=== PATIENT | female | born 1955 | race Caucasian/White ===

== ENCOUNTER 2021-10-07 14:47 | Inpatient (IN) | payer MEDICARE, MEDICAID, SELFPAY ==
--- NOTE | ~2021-10-07 | US_ITS ---
EXAMINATION: US PELVIS CLINICAL INFORMATION: Vaginal bleeding. COMPARISON: Previous CT of the abdomen and pelvis February 2019. TECHNIQUE: Ultrasound of the pelvis is performed using both transabdominal and transvaginal transducers along with Doppler. Transvaginal imaging is performed due to inadequate visualization transabdominally. FINDINGS: The uterus is anteverted and measures 9.3 x 3.6 x 5.2 cm in dimension. There is a 3 x 2.7 x 3.7 cm hypoechoic lesion in the posterior cervix with possible small calcification. This is not appreciated on noncontrast enhanced CT of the abdomen and pelvis February 2019. No other focal lesion is seen. The endometrium is thickened for a postmenopausal patient measuring 0.9 cm. The ovaries are not seen. There is no fluid in the pelvis. The bladder wall may be slightly thickened and trabeculated. US/US pelvic and transvaginal IMPRESSION: Abnormally thickened endometrium for a postmenopausal patient measuring 0.9 cm. 3 x 2.7 x 3.7 cm mass in the posterior cervix. This may represent a fibroid. Slightly thickened trabeculated bladder wall.
--- NOTE | ~2021-10-07 | CT_ITS ---
EXAMINATION: CT HEAD WITHOUT CONTRAST (STROKE PROTOCOL) CLINICAL INFORMATION: Stroke protocol. Acute mental status change. COMPARISON: Previous head CT September 2021. TECHNIQUE: Contiguous axial imaging was performed from the skull base to vertex without intravenous administration of contrast. This CT examination was performed using dose optimization techniques as appropriate, variously including the following: *Automated exposure control *Adjustment of mA and/or kV according to patient size (this includes techniques or standardized protocols for targeted exams where dose is matched to indication/reason for exam; i.e. extremities or head) *Use of iterative reconstruction technique DLP: 763 mGy-cm. FINDINGS: There is no evidence of an extra-axial collection. There is no evidence of intra-axial or extra-axial hemorrhage. The ventricles and extra-axial CSF spaces are slightly prominent just above age-related changes. There is mild nonspecific periventricular white matter disease. No mass, mass effect or infarct is seen. Review of bone windows is normal. Visualized paranasal sinuses, mastoid air cells and middle ears are clear. CT/CT head for stroke IMPRESSION: No acute intracranial pathology. This critical result was discussed with Dr. Chu at 8:30 hours on 10/20/2021. It was ascertained that the content and urgency of the report was understood at the time of direct communication.
--- NOTE | ~2021-10-07 | CT_ITS ---
EXAMINATION: CT HEAD WITHOUT CONTRAST CLINICAL INFORMATION: Fall. Head trauma. COMPARISON: Previous head CT most recent from yesterday TECHNIQUE: Contiguous axial imaging was performed from the skull base to vertex without intravenous administration of contrast. This CT examination was performed using dose optimization techniques as appropriate, variously including the following: *Automated exposure control *Adjustment of mA and/or kV according to patient size (this includes techniques or standardized protocols for targeted exams where dose is matched to indication/reason for exam; i.e. extremities or head) *Use of iterative reconstruction technique DLP: 747 mGy-cm FINDINGS: There is no evidence of an extra-axial collection. There is no evidence of intra-axial or extra-axial hemorrhage. The ventricles and extra-axial CSF spaces are prominent suggestive of mild generalized atrophy. There is nonspecific periventricular white matter disease. No mass, mass effect or infarct is seen. Review of bone windows is normal. No skull fracture is seen. Paranasal sinuses, mastoid air cells and middle ears are clear. CT/CT head/brain wo con IMPRESSION: No acute intracranial pathology.
--- NOTE | ~2021-10-07 | CT_ITS ---
EXAMINATION: CT HEAD WITHOUT CONTRAST CLINICAL INFORMATION: Fall. Head injury. COMPARISON: CT head 10/20/2021 TECHNIQUE: Contiguous axial imaging was performed from the skull base to vertex without intravenous administration of contrast. Coronal and sagittal reformatted images are performed at the CT scanner This CT examination was performed using dose optimization techniques as appropriate, variously including the following: *Automated exposure control *Adjustment of mA and/or kV according to patient size (this includes techniques or standardized protocols for targeted exams where dose is matched to indication/reason for exam; i.e. extremities or head) *Use of iterative reconstruction technique DLP: 690 mGy-cm FINDINGS: There is no evidence of acute intracranial hemorrhage or territorial infarction. No abnormal mass effect or midline shift is seen. Molina to white matter differentiation is well preserved. No extra-axial fluid collections are identified. There is generalized global volume loss. There is mild prominence of the ventricles and the sulci . There is mild hypodensity of the periventricular white matter due to chronic small vessel ischemic disease. There are vascular calcifications of the internal carotid arteries bilaterally. The osseous structures and soft tissues are normal. The mastoid air cells and visualized portions of the paranasal sinuses are well aerated. CT/CT head/brain wo con IMPRESSION: No acute intracranial pathology.
--- NOTE | ~2021-10-07 | CT_ITS ---
EXAMINATION: CT HEAD WITHOUT CONTRAST CLINICAL INFORMATION: Change in mental status. COMPARISON: Head CT dated 03/04/2019. TECHNIQUE: Contiguous axial imaging was performed from the skull base to vertex without intravenous administration of contrast. This CT examination was performed using dose optimization techniques as appropriate, variously including the following: *Automated exposure control *Adjustment of mA and/or kV according to patient size (this includes techniques or standardized protocols for targeted exams where dose is matched to indication/reason for exam; i.e. extremities or head) *Use of iterative reconstruction technique DLP: 743 mGy-cm FINDINGS: There is no evidence of acute intracranial hemorrhage or territorial infarction. No abnormal mass effect or midline shift is seen. Molina to white matter differentiation is well preserved. No extra-axial fluid collections are identified. Mild chronic white matter microangiopathy noted. There is moderate diffuse parenchymal volume loss and ex vacuo dilatation of the ventricles. The osseous structures and soft tissues are normal. The mastoid air cells and visualized portions of the paranasal sinuses are well aerated. CT/CT head/brain wo con IMPRESSION: No acute intracranial pathology.
[2021-10-07 15:04] VITALS: BP 110/76; PULSE 99; O2SAT 99
--- NOTE | 2021-10-07 15:12 | ED.PSYCH ---
HPI - Psych General Chief Complaint: Psychiatric Symptoms Stated Complaint: S12 Time Seen by Provider: 10/07/21 15:00 Source: EMS and RN notes reviewed Mode of arrival: EMS Limitations: altered mental status History of Present Illness HPI Narrative: Patient sent from [facility] for direct admission to psych floor wanted medical clearance from the ER specially the COVID testing patient had the labs done yesterday were within normal limits does have a history of schizophrenia bipolar disorder anxiety been hallucinating Related Data Home Medications Medication Instructions Recorded Confirmed apixaban 5 mg tablet (Eliquis) 1 tab PO BID 10/07/21 10/07/21 clonazepam 0.5 mg tablet tab PO BEDTIME 10/07/21 clozapine 100 mg tablet 2 tab PO BEDTIME 10/07/21 10/07/21 desmopressin 0.1 mg tablet 2 tab PO BID 10/07/21 10/07/21 haloperidol 5 mg tablet 1 tab PO TID 10/07/21 10/07/21 hydrochlorothiazide 25 mg tablet 1 tab PO DAILY 10/07/21 10/07/21 mirtazapine 30 mg tablet 1 tab PO BEDTIME 10/07/21 10/07/21 propranolol 10 mg tablet 1 tab PO DAILY 10/07/21 10/07/21 Allergies Allergy/AdvReac Type Severity Reaction Status Date / Time No Known Allergies Allergy Unverified 05/01/20 19:42 [No Known Allergies*] Review of Systems Review of Systems: Yes Unobtainable due to mental condition PMFSH Past Medical History Source: old records reviewed Social History Social History Household Members: Other Housing: Jail Patient Tobacco Use Status: Former Tobacco user Quit Date: 22 years ago Smoked in Last 30 Days: No Advance Directives: No Advance Directives Information Provided: No Do you have thoughts of harming others: None Do you have a plan to hurt others: No Plan Recently lost weight without trying: Unsure Nutrition Risks: No Nutritional Risk Physical Exam Vital Signs: Vital Signs: Last Vital Signs Temp 97.3 F 10/07/21 16:30 Pulse 88 10/07/21 16:30 Resp 18 10/07/21 16:30 BP 126/67 10/07/21 16:30 Pulse Ox 98 10/07/21 16:30 BMI result Body Mass Index 24.6 Appearance: Alert. Oriented X2-3. No acute distress. Eyes: PERRLA, No Nystagmus ENT: Pharynx normal. Oral Mucosa moist Neck: Normal inspection. Neck supple. CVS: Normal heart rate and rhythm. Pulses normal. Respiratory: No respiratory distress. Equal air entry bilateral, no wheezing/rales/rhonchi Abdomen: Soft and nontender. Bowel sounds are present, no mass palpable, no CVA tenderness Skin: Skin warm and dry. Normal skin color. Normal skin turgor. Extremities: No lower extremity edema. No calf tenderness Neuro: Oriented X 2-3. No motor deficit. No sensory deficit.No cerebellar signs , cranial nerves II-XII intact MDM - Psych MDM Narrative Medical decision making narrative: Patient medically cleared for M5 admission Lab Data Attestation: I reviewed the patient's lab results. Result diagrams: 10/07/21 19:25 Labs: Lab Results 10/07/21 Range/Units 15:14 COVID-19 (SHIVANI) Negative (Negative) COVID-19 Clin Com See Note Discharge Plan Discharge Clinical Impression: Schizophrenia, Bipolar disorder Patient Disposition: Admitted As Inpatient Interventions: Admission Worksheet (ED) Last Done: 10/07/21 19:09 Discharge Date/Time: 10/07/21 19:10
[2021-10-07 15:23] VITALS: BP 124/81; PULSE 88; RESP 16; TEMP 36.3; O2SAT 97; BMI 24.6
[2021-10-07 15:35] LABS: COVID-19 Test Negative (Negative)
[2021-10-07 16:30] VITALS: BP 126/67; PULSE 88; RESP 18; TEMP 36.3; O2SAT 98
--- NOTE | 2021-10-07 18:23 | PC.ADMIT ---
Addendum entered by Sandra Baumann RN 10/07/21 19:12: It is important to note that patient has a a long psychiatric history. Past medical history of HTN, generalized muscle weakness, Nephrogenic diabetes insipidus. Original Note: Patient is a 66 y/o Macedonian speaking F admitted through [facility] ED to the unit from [facility] with DSM 5 diagnosis F41.9 Unspecified Anxiety d.o, F20.9 Unspecified Schizophrenia, F31.9 Bipolar d/o and F02.80 Dementia in other diseases classified elsewhere. Patient arrived on unit via wheelchair accompanied by security and this brief writer. Patient is alert and oriented x2; patient lacks insight to situation and unsure of time. Patient appeared impulsive, confused but easily redirected. Patient has a flat affect and appears preoccupied. patient endorses auditory hallucinations. patient states the voice is telling me I am the devil and that I should not eat. patient denies SI/HI/VH. Patient ambulates with an unsteady gait and reports using a walker at nursing facility. Patient reports 2 falls at nursing facility 2 weeks ago. Patient reports poor po intake related to AH. Patient reports good sleep. Vital signs upon admission; 97.3, 88, 126/67,98%. patient is on 1:1 for safety r/t hx of falls, unsteady gait and currently impulsive.
[2021-10-07 19:30] LABS: MANUAL DIFF FLAG NO
[2021-10-07 19:31] LABS: Basophils Absolute Auto 0.1 X10*3/uL (0.0-0.2); Basophils Percent Auto 0.8 % (0-2); Eosinophils Percent Auto 0.2 % (0-4); Hematocrit 38.1 % (37.0-47.0); Imm Gran Abs Auto 0.06 X10*3/uL (0.00-0.03); Imm Gran Pct Auto 0.5 % (0.0-0.4); Lymphocytes Absolute Auto 4.3 X10*3/uL (1.2-4.9); Lymphocytes Percent Auto 38.2 % (20-40); Mean Corpuscular HGB Conc 31.5 g/dl (31.0-35.0); Mean Corpuscular Hemoglobin 24.3 pg (27.0-33.0); Mean Corpuscular Volume 77.1 fL (80.0-98.0); Mean Platelet Volume 10.5 fL (9.4-12.3); Monocytes Absolute Auto 1.1 X10*3/uL (0.1-1.2); Monocytes Percent Auto 9.8 % (2-11); Neutrophils Absolute Auto 5.7 x10*3/uL (2.0-8.3); Neutrophils Percent Auto 50.5 % (45-73); Platelet Count 251 X10*3/uL (160-400); Red Blood Count 4.94 X10*6/uL (4.20-5.50); Red Cell Distribution Width 14.9 % (11.0-16.0); White Blood Count 11.3 X10*3/uL (4.8-10.8)
--- NOTE | 2021-10-07 20:28 | PC.NURSE ---
Call from [facility] pharmacy asking when last dose of clozaril was given. RN called [facility] at [phone]. RN spoke to an RN who stated that the doctor's order is to give clozaril at bedtime. She could not verify that it was definitely given at bedtime on 10/06/2021, but stated that if that's the order then it was most likely given. RN reported this to the extrusion technician provider and Nataliia in pharmacy.
[2021-10-07 21:40] VITALS: BP 116/58; PULSE 78; RESP 17; TEMP 36.4; O2SAT 97
[2021-10-07] MEDS: cloZAPine 100 MG TABLET 200 MG PO (21:42)
[2021-10-07] MEDS: Mirtazapine 30 MG TABLET PO (21:42)
[2021-10-07] MEDS: HaloperidoL 5 MG TABLET PO (21:43)
[2021-10-07] MEDS: Apixaban 5 MG TABLET PO (21:43)
[2021-10-08 07:23] LABS: MANUAL DIFF FLAG NO
[2021-10-08 07:25] LABS: Basophils Absolute Auto 0.1 X10*3/uL (0.0-0.2); Basophils Percent Auto 0.6 % (0-2); Hematocrit 38.3 % (37.0-47.0); Hemoglobin 12.2 g/dl (12.0-16.0); Imm Gran Abs Auto 0.05 X10*3/uL (0.00-0.03); Imm Gran Pct Auto 0.6 % (0.0-0.4); Lymphocytes Absolute Auto 3.4 X10*3/uL (1.2-4.9); Lymphocytes Percent Auto 38.4 % (20-40); Mean Corpuscular HGB Conc 31.9 g/dl (31.0-35.0); Mean Corpuscular Hemoglobin 24.3 pg (27.0-33.0); Mean Corpuscular Volume 76.3 fL (80.0-98.0); Mean Platelet Volume 10.4 fL (9.4-12.3); Monocytes Absolute Auto 0.9 X10*3/uL (0.1-1.2); Monocytes Percent Auto 9.8 % (2-11); Neutrophils Absolute Auto 4.4 x10*3/uL (2.0-8.3); Neutrophils Percent Auto 50.6 % (45-73); Platelet Count 218 X10*3/uL (160-400); Red Blood Count 5.02 X10*6/uL (4.20-5.50); Red Cell Distribution Width 14.8 % (11.0-16.0); White Blood Count 8.8 X10*3/uL (4.8-10.8)
[2021-10-08 07:51] LABS: Alanine Aminotransferase 12 U/L (0-31); Albumin Level 3.7 g/dL (3.5-5.0); Alkaline Phosphatase 86 U/L (39-117); Anion Gap 13 (12-20); Aspartate Amino Transferase 17 U/L (5-31); Bilirubin Direct 0.2 mg/dL (0.0-0.5); Bilirubin Total 0.6 mg/dL (0.0-1.0); Blood Urea Nitrogen 12 mg/dL (9-16); Calcium 11.1 mg/dL (8.4-10.2); Carbon Dioxide 27 mmol/L (22-29); Chloride 104 mmol/L (96-108); Cholesterol 213 mg/dL; Creatinine Clr Calc Pharmacy 59.4; Estimated Glomerular Filt Rate > 60; Glucose Fasting 101 mg/dL (60-99); HDL Cholesterol 34 mg/dL; LDL Cholesterol Calculated 156 mg/dl; Potassium 2.8 mmol/L (3.3-5.1); Sodium 141 mmol/L (135-145); Total Protein 5.9 g/dL (6.5-8.0); Triglycerides 117 mg/dL
[2021-10-08 08:00] LABS: Thyroid Stimulating Hormone 0.57 uIU/mL (0.32-4.0)
[2021-10-08 08:26] LABS: Estimated Average Glucose 97 mg/dL
[2021-10-08 09:10] LABS: Folate > 20.0 ng/mL (> or = 4.0); Vitamin B12 573 pg/mL (200-900)
[2021-10-08 14:14] VITALS: BP 116/58; PULSE 78; O2SAT 97
--- NOTE | 2021-10-08 14:14 | HO.PSYADMNOT ---
[facility] Date of Service: 10/08/21 Chief Complaint: Mood disorder Sources of Information: patient interviewed and chart reviewed HPI Subjective Notes: Church Warning and Conditional Voluntary Narrative: The patient is a 66-year-old female, , mother of 2 adult children, resident of an assisted living facility, with a long history of mood disorder and psychosis, referred from the community for exacerbation of psychosis and mood lability. According to the report of the assisting living with facility staff, the patient has been progressively being paranoid, with auditory hallucinations telling her that she is the devil, disorganized behavior elicited by poor ADLs and increased irritability. The patient was referred to the hospital for psychiatric stabilization. On interview, the patient was lying on her bed, sleeping and according to the staff that was doing the one-to-one observation, the patient has slept the whole morning. She complained of constant auditory hallucinations telling her bad things, she also admitted paranoid delusions stating that people wants to hurt her and irritability. The patient certain point decided not to continue the interview because she was feeling very angry. We discussed risks, benefits, side-effects and alternatives and she agreed to increase medications to target his her psychotic symptoms. The patient was able to contract for safety in the facility. Past Psychiatric History: The patient has a lengthy history of psychiatric admissions she has been here in the hospital at a few years ago. She is on Clozaril and historically she was on lithium in the past. Medical Evaluation Reviewed: Hospitalist Inocencia Pending [facility] Family History: Denies Social History: The patient lives in assisted living facility for the last months. Substance History: Denies Trauma History: Refused to elaborate Diagnostics Vital Signs (24Hr): Vital Signs - 24 hr 10/07/21 15:23 10/07/21 16:30 10/07/21 21:40 Temperature 97.4 F 97.3 F 97.6 F Pulse Rate 88 88 78 Respiratory Rate 16 18 17 Blood Pressure 124/81 126/67 116/58 L Pulse Oximetry 97 98 97 BMI result Body Mass Index 24.6 Labs Results: 10/08/21 07:16 10/08/21 07:16 Labs: Laboratory Results - last 48 hr 10/07/21 10/07/21 10/08/21 15:14 19:25 07:16 WBC 11.3 H 8.8 RBC 4.94 5.02 Hgb 12.0 12.2 Hct 38.1 38.3 MCV 77.1 L 76.3 L MCH 24.3 L 24.3 L MCHC 31.5 31.9 RDW 14.9 14.8 Plt Count 251 218 MPV 10.5 10.4 Immature Gran % (Auto) 0.5 H 0.6 H Neut % (Auto) 50.5 50.6 Lymph % (Auto) 38.2 38.4 Mower % (Auto) 9.8 9.8 Eos % (Auto) 0.2 0.0 Baso % (Auto) 0.8 0.6 Lymph # (Auto) 4.3 3.4 Mower # (Auto) 1.1 0.9 Eos # (Auto) 0.0 0.0 Baso # (Auto) 0.1 0.1 Abs Immat Gran (auto) 0.06 H 0.05 H Absolute Neuts (auto) 5.7 4.4 Absolute Nucleated RBC 0.000 0.000 Nucleated RBC % (auto) 0.0 0.0 Sodium Potassium Chloride Carbon Dioxide Anion Gap BUN Creatinine Estim Creat Clear Calc Estimated GFR Fasting Glucose Estimat Average Glucose Hemoglobin A1c % Calcium Total Bilirubin Direct Bilirubin AST ALT Alkaline Phosphatase Total Protein Albumin Triglycerides Cholesterol LDL Cholesterol, Calc HDL Cholesterol Vitamin B12 Folate TSH COVID-19 ([facility]IVANI) Negative COVID-19 Clin Com See Note 10/08/21 10/08/21 10/08/21 07:16 07:16 07:16 WBC RBC Hgb Hct MCV MCH MCHC RDW Plt Count MPV Immature Gran % (Auto) Neut % (Auto) Lymph % (Auto) Mower % (Auto) Eos % (Auto) Baso % (Auto) Lymph # (Auto) Mower # (Auto) Eos # (Auto) Baso # (Auto) Abs Immat Gran (auto) Absolute Neuts (auto) Absolute Nucleated RBC Nucleated RBC % (auto) Sodium 141 Potassium 2.8 L Chloride 104 Carbon Dioxide 27 Anion Gap 13 BUN 12 Creatinine 0.79 Estim Creat Clear Calc 59.4 Estimated GFR > 60 Fasting Glucose 101 H Estimat Average Glucose 97 Hemoglobin A1c % 5.0 Calcium 11.1 H Total Bilirubin 0.6 Direct Bilirubin 0.2 AST 17 ALT 12 Alkaline Phosphatase 86 Total Protein 5.9 L Albumin 3.7 Triglycerides 117 Cholesterol 213 LDL Cholesterol, Calc 156 HDL Cholesterol 34 Vitamin B12 573 Folate > 20.0 TSH 0.57 COVID-19 ([facility]IVANI) COVID-19 Clin Com Meds/Allergies Meds Home Medications Acetaminophen (Acetaminophen 325 Mg Tablet) 650 mg PO Q6H PRN PRN Reason: Headache/Pain Mild Scale (1-3) Al Hydroxide/Mg Hydroxide (Magnesium Hydrox/Alum Hydrox 30 Ml Oral.Susp) 30 ml PO Q6H PRN PRN Reason: Heartburn/Nausea Apixaban (Apixaban 5 Mg Tablet) 5 mg PO BID [facility] Last Admin: 10/08/21 11:41 Dose: Not Given Documented by: Clonazepam (Clonazepam 0.5 Mg Tablet) 0.25 mg PO BID PRN PRN Reason: agitation, anxiety Clozapine (Clozapine 100 Mg Tablet) 200 mg PO BEDTIME [facility] Last Admin: 10/07/21 21:42 Dose: 200 mg Documented by: Desmopressin Acetate (Desmopressin Acetate 0.2 Mg Tablet) 0.2 mg PO BID [facility] Last Admin: 10/08/21 11:41 Dose: Not Given Documented by: Haloperidol (Haloperidol 5 Mg Tablet) 5 mg PO TID [facility] Hydrochlorothiazide (Hydrochlorothiazide 25 Mg Tablet) 25 mg PO DAILY [facility]; Protocol Last Admin: 10/08/21 11:42 Dose: Not Given Documented by: Hydroxyzine HCl (Hydroxyzine Hcl 25 Mg Tablet) 25 mg PO BEDTIME PRN PRN Reason: Anxiety Magnesium Hydroxide (Milk Of Magnesia 30 Ml Oral.Susp) 30 ml PO DAILY PRN PRN Reason: Constipation Mirtazapine (Mirtazapine 30 Mg Tablet) 30 mg PO BEDTIME [facility] Last Admin: 10/07/21 21:42 Dose: 30 mg Documented by: Propranolol HCl (Propranolol Hcl 10 Mg Tablet) 10 mg PO DAILY [facility]; Protocol Last Admin: 10/08/21 11:42 Dose: Not Given Documented by: Trazodone HCl (Trazodone Hcl 50 Mg Tablet) 50 mg PO BEDTIME PRN PRN Reason: Insomnia Allergies Allergies Allergy/AdvReac Type Severity Reaction Status Date / Time No Known Allergies Allergy Unverified 05/01/20 19:42 [No Known Allergies*] Mental Status Exam Mental Status Exam Patient Appearance: Disheveled and Unkempt Patient Orientation: Person and Situation Level of Consciousness: Awake Patient Behavior: Guarded, Passive, Suspicious and Asleep Mood Description: Withdrawn Affect Description: Labile Patient Cognition Impaired: No Ability to Follow Directions: Fair Speech Pattern: Clear Hallucinations: Auditory Delusions: Paranoid Ideation Thought Process: Illogical, Distracted and Evasive Thought Content: positive for [place], positive for Circumstantial and positive for Poverty of Content Judgement: Fair Assessment & Plan Assessment & Plan (1) Schizophrenia: Status: Acute Code(s): F20.9 - Schizophrenia, unspecified Plan The patient is an elderly female with a long history of psychosis and mood lability that was admitted for exacerbation of psychotic symptoms without a clear stressor. Plan 1. . Continue Clozaril 200 mg at HS. 2. Increased Haldol up to 5 mg p.o. t.i.d. to target psychosis. 3. Continue other medications. 4. Gather collateral information Reason for continued inpatient stay Substantial Risk for: harm to self, harm to others, inability to function, rapid decompensation and med/psych decompensation
--- NOTE | 2021-10-08 20:07 | PM.EVENT ---
Event Note Date of Service: 10/08/21 Event Note: attempted to see pt at 8 pm, found pt to be sleeping with sitter at bedside.
[2021-10-08] MEDS: Apixaban 5 MG TABLET PO (22:09)
[2021-10-08] MEDS: HaloperidoL 5 MG TABLET PO (22:10)
[2021-10-08] MEDS: Desmopressin Acetate 0.2 MG TABLET PO (22:10)
[2021-10-08] MEDS: Mirtazapine 30 MG TABLET PO (22:10)
[2021-10-08] MEDS: cloZAPine 100 MG TABLET 200 MG PO (22:10)
[2021-10-08] MEDS: Acetaminophen 325 MG TABLET 650 MG PO (22:18)
[2021-10-08 22:54] VITALS: BP 105/55; PULSE 93; RESP 18; TEMP 36.6; O2SAT 97
[2021-10-09 06:00] VITALS: BP 124/62; PULSE 82; RESP 16; TEMP 36.6; O2SAT 98
[2021-10-09] MEDS: hydroCHLOROthiazide 25 MG TABLET PO (09:21)
[2021-10-09] MEDS: HaloperidoL 5 MG TABLET PO ×2 (09:21→20:21)
[2021-10-09] MEDS: Apixaban 5 MG TABLET PO ×2 (09:22→20:19)
[2021-10-09] MEDS: Desmopressin Acetate 0.2 MG TABLET PO ×2 (09:22→20:19)
[2021-10-09] MEDS: Propranolol HCL 10 MG TABLET PO (09:22)
--- NOTE | 2021-10-09 09:46 | HO.PM.IMCN ---
History of Present Illness Data of Consult Service Date: 10/09/21 Primary Care Provider: Unknown Physician HPI Reason for consult: Medical assessment 66-year-old female with Alzheimer's dementia, behavior disturbance, bipolar disorder, hyperparathyroidism, nephrogenic diabetes insipidus, vitamin-D deficiency, B12 deficiency, hypothyroidism, anxiety, history of femoral vein DVT in August of 2021. She is presently admitted to the psychiatric unit due to decompensated bipolar disorder/psychosis. She is somewhat disorganized at this moment and was not able to obtain any meaningful medical history from her. My evaluation depended largely from a review of the medical record . Review of Systems Review of Systems: No fever, no chest, no shortness of breath, she is confused . The review of system is otherwise limited due to the patient's mental state [facility] Medical History (Updated 10/09/21 @ 10:03 by Scar Doyle MD) Alzheimer's dementia Bipolar disorder Diabetes insipidus Hypertension Hypokalemia Hypothyroidism Impaired insight Osteopenia Peripheral edema Right femoral vein DVT Schizophrenia Tubular adenoma Vitamin D deficiency Social History Household Members: Other Housing: Senior Care Patient Tobacco Use Status: Former Tobacco user Quit Date: 22 years ago Smoked in Last 30 Days: No Currently Displaying Signs/Symptoms of Drug Intoxication Withdrawal: No Advance Directives: No Advance Directives Information Provided: No Do you have thoughts of harming others: None Do you have a plan to hurt others: No Plan Recently lost weight without trying: Unsure Nutrition Risks: No Nutritional Risk service: No Sexual orientation: Straight/Heterosexual Meds Allergies Allergy/AdvReac Type Severity Reaction Status Date / Time No Known Allergies Allergy Unverified 05/01/20 19:42 [No Known Allergies*] Active Medications: Current Medications Acetaminophen (Acetaminophen 325 Mg Tablet) 650 mg PO Q6H PRN PRN Reason: Headache/Pain Mild Scale (1-3) Last Admin: 10/08/21 22:18 Dose: 650 mg Documented by: Al Hydroxide/Mg Hydroxide (Magnesium Hydrox/Alum Hydrox 30 Ml Oral.Susp) 30 ml PO Q6H PRN PRN Reason: Heartburn/Nausea Apixaban (Apixaban 5 Mg Tablet) 5 mg PO BID [facility] Last Admin: 10/09/21 09:22 Dose: 5 mg Documented by: Clonazepam (Clonazepam 0.5 Mg Tablet) 0.25 mg PO BID PRN PRN Reason: agitation, anxiety Clozapine (Clozapine 100 Mg Tablet) 200 mg PO BEDTIME [facility] Last Admin: 10/08/21 22:10 Dose: 200 mg Documented by: Desmopressin Acetate (Desmopressin Acetate 0.2 Mg Tablet) 0.2 mg PO BID [facility] Last Admin: 10/09/21 09:22 Dose: 0.2 mg Documented by: Haloperidol (Haloperidol 5 Mg Tablet) 5 mg PO TID [facility] Last Admin: 10/09/21 09:21 Dose: 5 mg Documented by: Hydrochlorothiazide (Hydrochlorothiazide 25 Mg Tablet) 25 mg PO DAILY [facility]; Protocol Last Admin: 10/09/21 09:21 Dose: 25 mg Documented by: Hydroxyzine HCl (Hydroxyzine Hcl 25 Mg Tablet) 25 mg PO BEDTIME PRN PRN Reason: Anxiety Magnesium Hydroxide (Milk Of Magnesia 30 Ml Oral.Susp) 30 ml PO DAILY PRN PRN Reason: Constipation Mirtazapine (Mirtazapine 30 Mg Tablet) 30 mg PO BEDTIME [facility] Last Admin: 10/08/21 22:10 Dose: 30 mg Documented by: Propranolol HCl (Propranolol Hcl 10 Mg Tablet) 10 mg PO DAILY [facility]; Protocol Last Admin: 10/09/21 09:22 Dose: 10 mg Documented by: Trazodone HCl (Trazodone Hcl 50 Mg Tablet) 50 mg PO BEDTIME PRN PRN Reason: Insomnia Home Medications Medication Instructions Recorded Confirmed Last Taken Type apixaban 5 mg tablet (Eliquis) 1 tab PO BID 10/07/21 10/07/21 Unknown History clonazepam 0.5 mg tablet tab PO BEDTIME 10/07/21 Unknown History clozapine 100 mg tablet 2 tab PO BEDTIME 10/07/21 10/07/21 Unknown History desmopressin 0.1 mg tablet 2 tab PO BID 10/07/21 10/07/21 Unknown History haloperidol 5 mg tablet 1 tab PO TID 10/07/21 10/07/21 Unknown History hydrochlorothiazide 25 mg tablet 1 tab PO DAILY 10/07/21 10/07/21 Unknown History mirtazapine 30 mg tablet 1 tab PO BEDTIME 10/07/21 10/07/21 Unknown History propranolol 10 mg tablet 1 tab PO DAILY 10/07/21 10/07/21 Unknown History Physical Exam Vital Signs and Narrative: Vital Signs: Last Vital Signs Temp 98 F 10/08/21 22:54 Pulse 93 10/08/21 22:54 Resp 18 10/08/21 22:54 BP 105/55 L 10/08/21 22:54 Pulse Ox 97 10/08/21 22:54 BMI result Body Mass Index 24.6 Const: Other: Constitutional: Alert, in no distress, anxious Mental Status: Oriented to person, place Eyes: Pupils are equal, round and reactive to light. Ear, Nose and Throat:. Ears and nose without eformities. Trachea midline. Respiratory: Clear to auscultation. No wheezing, rales or rhonchi. Cardiovascular: S1 S2 regular. No murmurs, rubs or gallops. Gastrointestinal: Abdomen soft, non-tender, non-distended. Normal bowel sounds.? Neurologic: Cranial nerves II-XII grossly intact. No focal neurological deficits. Moves all extremities spontaneously.? Skin: No rashes or lesions.? Musculoskeletal: No cyanosis or clubbing. Psychiatric: Normal mood and affect?.. see sch assessment Results Labs CBC and Chem 7: 10/08/21 07:16 10/08/21 07:16 Imaging Radiologist's Impressions: Impressions Head CT 10/08/21 15:16 IMPRESSION: No acute intracranial pathology. Assessment and Plan (1) Hypertension: Status: Acute Plan 66-year-old female with Alzheimer's dementia, behavior disturbance, bipolar disorder, hyperparathyroidism, nephrogenic diabetes insipidus, vitamin-D deficiency, B12 deficiency, hypothyroidism, anxiety, history of femoral vein DVT in August of 2021. She is presently admitted to the psychiatric unit due to decompensated bipolar disorder/psychosis. S 1 history of right femoral vein DVT--continue Eliquis 2/diabetes insipidus--continue desmopressin 3/hypertension--continue propranolol, hydrochlorothiazide. 4/HypOkalemia due to HCTZ--Replace orally, check mag. Repeat potassium tomorrow Will follow PRN
[2021-10-09 11:03] LABS: Magnesium 1.5 mg/dL (1.6-2.6)
[2021-10-09 13:06] VITALS: PULSE 99; O2SAT 96
--- NOTE | 2021-10-09 13:40 | PC.NURSE ---
Pt fall at 1251 in bathroom, reported by Taryn WoodsonGOLD BLOWER) to have slid off the toilet . Pt reportedly hit her head on the wall. Pt denied pain. Pt given a commode for safety. Pt's daughter, Elizabeth, notified of the via via phone call. CT scan of the head ordered.
--- NOTE | 2021-10-09 15:53 | PC.NURSE ---
Pt. was assisted to BR in her room by [employer]. She sat momentarily on the toilet, then at 12:50 pm she suddenly slid off to the left landing on her buttocks and lightly striking her head on the wall. She was assessed for injury and none noted. Dr. Mcdonnell notified and CT of head ordered. Pt. reports she had a commode over her toilet in her longterm. Commode brought to unit and placed over toilet to provide support. Daughter Elizabeth Villatoro updated.
--- NOTE | 2021-10-09 16:41 | HO.PSYCHPN ---
Subjective Subjective Date of Service: 10/09/21 Reason For Visit: Mood disorder Subjective Notes: Conditional Voluntary Interim History: The nursing staff reported the patient is paranoid and she has chronic auditory hallucinations. Even though, she has not been violent. She needs a lot of help on her activities of daily life. On interview, the patient denies any new symptoms, denies over-sedation with increase of Haldol but still she has auditory hallucinations. We are waiting for the clozapine level in order to increased clozapine to a therapeutic higher dose to target her psychosis. So far, blood work has been within normal limits Mental Status Exam Mental Status Exam Patient Appearance: Appropriate Patient Orientation: Person and Situation Level of Consciousness: Awake Patient Behavior: Guarded and Passive Mood Description: Depressed Affect Description: Blunted Patient Cognition Impaired: Yes Ability to Follow Directions: Good Speech Pattern: Clear Hallucinations: Auditory Delusions: Paranoid Ideation Thought Process: Illogical and Distracted Thought Content: positive for [place] and positive for Poverty of Content Judgement: Fair Diagnostics Vital Signs (24Hr): Vital Signs - 24 hr 10/08/21 22:54 10/09/21 06:00 10/09/21 13:06 Temperature 98 F 97.9 F Pulse Rate 93 82 99 Respiratory Rate 18 16 Blood Pressure 105/55 L 124/62 Pulse Oximetry 97 98 96 BMI result Body Mass Index 24.6 Labs Results: 10/08/21 07:16 10/08/21 07:16 Labs: Laboratory Results - last 48 hr 10/07/21 10/08/21 10/08/21 19:25 07:16 07:16 WBC 11.3 H 8.8 RBC 4.94 5.02 Hgb 12.0 12.2 Hct 38.1 38.3 MCV 77.1 L 76.3 L MCH 24.3 L 24.3 L MCHC 31.5 31.9 RDW 14.9 14.8 Plt Count 251 218 MPV 10.5 10.4 Immature Gran % (Auto) 0.5 H 0.6 H Neut % (Auto) 50.5 50.6 Lymph % (Auto) 38.2 38.4 [place] % (Auto) 9.8 9.8 Eos % (Auto) 0.2 0.0 Baso % (Auto) 0.8 0.6 Lymph # (Auto) 4.3 3.4 [place] # (Auto) 1.1 0.9 Eos # (Auto) 0.0 0.0 Baso # (Auto) 0.1 0.1 Abs Immat Gran (auto) 0.06 H 0.05 H Absolute Neuts (auto) 5.7 4.4 Absolute Nucleated RBC 0.000 0.000 Nucleated RBC % (auto) 0.0 0.0 Sodium 141 Potassium 2.8 L Chloride 104 Carbon Dioxide 27 Anion Gap 13 BUN 12 Creatinine 0.79 Estim Creat Clear Calc 59.4 Estimated GFR > 60 Fasting Glucose 101 H Estimat Average Glucose Hemoglobin A1c % Calcium 11.1 H Magnesium Total Bilirubin 0.6 Direct Bilirubin 0.2 AST 17 ALT 12 Alkaline Phosphatase 86 Total Protein 5.9 L Albumin 3.7 Triglycerides 117 Cholesterol 213 LDL Cholesterol, Calc 156 HDL Cholesterol 34 Vitamin B12 Folate TSH 0.57 10/08/21 10/08/21 10/09/21 07:16 07:16 10:40 WBC RBC Hgb Hct MCV MCH MCHC RDW Plt Count MPV Immature Gran % (Auto) Neut % (Auto) Lymph % (Auto) [place] % (Auto) Eos % (Auto) Baso % (Auto) Lymph # (Auto) [place] # (Auto) Eos # (Auto) Baso # (Auto) Abs Immat Gran (auto) Absolute Neuts (auto) Absolute Nucleated RBC Nucleated RBC % (auto) Sodium Potassium Chloride Carbon Dioxide Anion Gap BUN Creatinine Estim Creat Clear Calc Estimated GFR Fasting Glucose Estimat Average Glucose 97 Hemoglobin A1c % 5.0 Calcium Magnesium 1.5 L Total Bilirubin Direct Bilirubin AST ALT Alkaline Phosphatase Total Protein Albumin Triglycerides Cholesterol LDL Cholesterol, Calc HDL Cholesterol Vitamin B12 573 Folate > 20.0 TSH Imaging Radiology Impressions: ITS Impressions Head CT 10/08/21 15:16 IMPRESSION: No acute intracranial pathology. Head CT 10/09/21 13:54 IMPRESSION: No acute intracranial pathology. Medications Medications Current Medications Acetaminophen (Acetaminophen 325 Mg Tablet) 650 mg PO Q6H PRN PRN Reason: Headache/Pain Mild Scale (1-3) Last Admin: 10/08/21 22:18 Dose: 650 mg Documented by: Al Hydroxide/Mg Hydroxide (Magnesium Hydrox/Alum Hydrox 30 Ml Oral.Susp) 30 ml PO Q6H PRN PRN Reason: Heartburn/Nausea Apixaban (Apixaban 5 Mg Tablet) 5 mg PO BID [facility] Last Admin: 10/09/21 09:22 Dose: 5 mg Documented by: Clonazepam (Clonazepam 0.5 Mg Tablet) 0.25 mg PO BID PRN PRN Reason: agitation, anxiety Clozapine (Clozapine 100 Mg Tablet) 200 mg PO BEDTIME [facility] Last Admin: 10/08/21 22:10 Dose: 200 mg Documented by: Desmopressin Acetate (Desmopressin Acetate 0.2 Mg Tablet) 0.2 mg PO BID [facility] Last Admin: 10/09/21 09:22 Dose: 0.2 mg Documented by: Haloperidol (Haloperidol 5 Mg Tablet) 5 mg PO TID [facility] Last Admin: 10/09/21 16:02 Dose: Not Given Documented by: Hydrochlorothiazide (Hydrochlorothiazide 25 Mg Tablet) 25 mg PO DAILY [facility]; Protocol Last Admin: 10/09/21 09:21 Dose: 25 mg Documented by: Hydroxyzine HCl (Hydroxyzine Hcl 25 Mg Tablet) 25 mg PO BEDTIME PRN PRN Reason: Anxiety Magnesium Hydroxide (Milk Of Magnesia 30 Ml Oral.Susp) 30 ml PO DAILY PRN PRN Reason: Constipation Mirtazapine (Mirtazapine 30 Mg Tablet) 30 mg PO BEDTIME [facility] Last Admin: 10/08/21 22:10 Dose: 30 mg Documented by: Potassium Chloride (Potassium Chloride Packet 20 Meq Packet) 40 meq PO BID [facility] Last Admin: 10/09/21 15:54 Dose: Not Given Documented by: Propranolol HCl (Propranolol Hcl 10 Mg Tablet) 10 mg PO DAILY [facility]; Protocol Last Admin: 10/09/21 09:22 Dose: 10 mg Documented by: Trazodone HCl (Trazodone Hcl 50 Mg Tablet) 50 mg PO BEDTIME PRN PRN Reason: Insomnia Allergies Allergies Allergy/AdvReac Type Severity Reaction Status Date / Time No Known Allergies Allergy Unverified 05/01/20 19:42 [No Known Allergies*] Assessment & Plan Assessment & Plan (1) Hypertension: Status: Acute Code(s): I10 - Essential (primary) hypertension Plan 66-year-old female with Alzheimer's dementia, behavior disturbance, bipolar disorder, hyperparathyroidism, nephrogenic diabetes insipidus, vitamin-D deficiency, B12 deficiency, hypothyroidism, anxiety, history of femoral vein DVT in August of 2021. She is presently admitted to the psychiatric unit due to decompensated bipolar disorder/psychosis. S 1 history of right femoral vein DVT--continue Eliquis 2/diabetes insipidus--continue desmopressin 3/hypertension--continue propranolol, hydrochlorothiazide. 4/HypOkalemia due to HCTZ--Replace orally, check mag. Repeat potassium tomorrow Will follow PRN Psychiatrically, we will continue Haldol 5 mg p.o. t.i.d. and clozapine. We are waiting for the clozapine levels in order to increase clozapine to target psychosis. At this moment we will start the titration of Clozaril with 25 mg p.o. b.i.d. I spent ____30__ minutes with the patient and/or on the patient floor today, greater than?50% of which was spent counseling/coordinating care. Patient educated on: therapeutic strategies Informed Consent: further education needed Reason for contiued inpatient stay Substantial Risk for: inability to function, stable for discharge and med/psych decompensation
[2021-10-09 18:00] VITALS: BP 116/63; PULSE 109; RESP 20; TEMP 36.6; O2SAT 96
[2021-10-09] MEDS: Mirtazapine 30 MG TABLET PO (20:19)
[2021-10-09] MEDS: cloZAPine 100 MG TABLET 200 MG PO (20:20)
[2021-10-09] MEDS: cloZAPine 25 MG TABLET PO (20:20)
[2021-10-10 08:00] VITALS: BP 102/67; PULSE 111; RESP 16; TEMP 36.6; O2SAT 94
--- NOTE | 2021-10-10 09:36 | HO.PSYCHPN ---
Subjective Subjective Date of Service: 10/10/21 Reason For Visit: psychotic disorder Subjective Notes: Section 12B Healthcare Proxy: Yes Interim History: Patient has been sad psychotically preoccupied she is coming out of her room she has been distressed by intrusive hallucinations. Mental Status Exam Mental Status Exam Patient Appearance: Appropriate Patient Orientation: Person and Situation Level of Consciousness: Awake Patient Behavior: Guarded, Cooperative, Passive and Anxious Mood Description: Depressed, Anxious and Blunted Affect Description: Blunted and Apprehensive Patient Cognition Impaired: Yes Ability to Follow Directions: Good Speech Pattern: Clear Hallucinations: Auditory Delusions: Paranoid Ideation Thought Process: Distracted Thought Content: positive for [place] and positive for Poverty of Content Judgement: Fair Judgement and Insight: Denies active self-harm she does want help Diagnostics Vital Signs (24Hr): Vital Signs - 24 hr 10/09/21 13:06 10/09/21 18:00 Temperature 97.8 F Pulse Rate 99 109 H Respiratory Rate 20 Blood Pressure 116/63 Pulse Oximetry 96 96 BMI result Body Mass Index 24.6 Labs Results: 10/08/21 07:16 10/10/21 10:58 Labs: Laboratory Results - last 48 hr 10/09/21 10:40 Magnesium 1.5 L Imaging Radiology Impressions: ITS Impressions Head CT 10/08/21 15:16 IMPRESSION: No acute intracranial pathology. Head CT 10/09/21 13:54 IMPRESSION: No acute intracranial pathology. Medications Medications Current Medications Acetaminophen (Acetaminophen 325 Mg Tablet) 650 mg PO Q6H PRN PRN Reason: Headache/Pain Mild Scale (1-3) Last Admin: 10/08/21 22:18 Dose: 650 mg Documented by: Al Hydroxide/Mg Hydroxide (Magnesium Hydrox/Alum Hydrox 30 Ml Oral.Susp) 30 ml PO Q6H PRN PRN Reason: Heartburn/Nausea Apixaban (Apixaban 5 Mg Tablet) 5 mg PO BID [facility] Last Admin: 10/09/21 20:19 Dose: 5 mg Documented by: Clonazepam (Clonazepam 0.5 Mg Tablet) 0.25 mg PO BID PRN PRN Reason: agitation, anxiety Clozapine (Clozapine 100 Mg Tablet) 200 mg PO BEDTIME [facility] Last Admin: 10/09/21 20:20 Dose: 200 mg Documented by: Clozapine (Clozapine 25 Mg Tablet) 25 mg PO BID [facility] Last Admin: 10/09/21 20:20 Dose: 25 mg Documented by: Desmopressin Acetate (Desmopressin Acetate 0.2 Mg Tablet) 0.2 mg PO BID [facility] Last Admin: 10/09/21 20:19 Dose: 0.2 mg Documented by: Haloperidol (Haloperidol 5 Mg Tablet) 5 mg PO TID [facility] Last Admin: 10/09/21 20:21 Dose: 5 mg Documented by: Hydrochlorothiazide (Hydrochlorothiazide 25 Mg Tablet) 25 mg PO DAILY [facility]; Protocol Last Admin: 10/09/21 09:21 Dose: 25 mg Documented by: Hydroxyzine HCl (Hydroxyzine Hcl 25 Mg Tablet) 25 mg PO BEDTIME PRN PRN Reason: Anxiety Magnesium Hydroxide (Milk Of Magnesia 30 Ml Oral.Susp) 30 ml PO DAILY PRN PRN Reason: Constipation Mirtazapine (Mirtazapine 30 Mg Tablet) 30 mg PO BEDTIME [facility] Last Admin: 10/09/21 20:19 Dose: 30 mg Documented by: Potassium Chloride (Potassium Chloride Packet 20 Meq Packet) 40 meq PO BID [facility] Last Admin: 10/09/21 20:27 Dose: Not Given Documented by: Propranolol HCl (Propranolol Hcl 10 Mg Tablet) 10 mg PO DAILY [facility]; Protocol Last Admin: 10/09/21 09:22 Dose: 10 mg Documented by: Trazodone HCl (Trazodone Hcl 50 Mg Tablet) 50 mg PO BEDTIME PRN PRN Reason: Insomnia Allergies Allergies Allergy/AdvReac Type Severity Reaction Status Date / Time No Known Allergies Allergy Unverified 05/01/20 19:42 [No Known Allergies*] Assessment & Plan Assessment & Plan (1) Hypertension: Status: Acute Code(s): I10 - Essential (primary) hypertension Plan 66-year-old female with Alzheimer's dementia, behavior disturbance, bipolar disorder, hyperparathyroidism, nephrogenic diabetes insipidus, vitamin-D deficiency, B12 deficiency, hypothyroidism, anxiety, history of femoral vein DVT in August of 2021. She is presently admitted to the psychiatric unit due to decompensated bipolar disorder/psychosis. Psychiatrically, we will continue Haldol 5 mg p.o. t.i.d. and clozapine. We are waiting for the clozapine levels in order to increase clozapine to target psychosis. At this moment we will start the titration of Clozaril with 25 mg p.o. b.i.d. Patient tolerating medication trial remains depressed and psychotic Reason for contiued inpatient stay Substantial Risk for: inability to function and rapid decompensation
[2021-10-10] MEDS: Potassium Chloride Packet 20 MEQ PACKET 40 MEQ PO ×2 (09:55→20:28)
[2021-10-10] MEDS: HaloperidoL 5 MG TABLET PO ×3 (09:56→20:28)
[2021-10-10] MEDS: Apixaban 5 MG TABLET PO ×2 (09:56→20:28)
[2021-10-10] MEDS: Propranolol HCL 10 MG TABLET PO (09:56)
[2021-10-10] MEDS: cloZAPine 25 MG TABLET PO ×2 (09:56→20:28)
[2021-10-10] MEDS: hydroCHLOROthiazide 25 MG TABLET PO (09:56)
[2021-10-10] MEDS: Desmopressin Acetate 0.2 MG TABLET PO ×2 (09:56→20:28)
[2021-10-10 11:36] LABS: Anion Gap 15 (12-20); Blood Urea Nitrogen 13 mg/dL (9-16); Carbon Dioxide 27 mmol/L (22-29); Chloride 105 mmol/L (96-108); Estimated Glomerular Filt Rate > 60; Glucose Random 109 mg/dL (60-115); Magnesium 1.7 mg/dL (1.6-2.6); Potassium 3.5 mmol/L (3.3-5.1); Sodium 143 mmol/L (135-145)
[2021-10-10 18:00] VITALS: BP 105/64; PULSE 85; RESP 18; TEMP 36.3; O2SAT 99
[2021-10-10] MEDS: Mirtazapine 30 MG TABLET PO (20:28)
[2021-10-10] MEDS: cloZAPine 100 MG TABLET 200 MG PO (20:28)
[2021-10-11 08:23] VITALS: BP 84/55; PULSE 86; TEMP 36.4; O2SAT 97
[2021-10-11] MEDS: Apixaban 5 MG TABLET PO ×2 (14:07→20:44)
[2021-10-11] MEDS: Desmopressin Acetate 0.2 MG TABLET PO ×2 (14:08→20:44)
[2021-10-11] MEDS: cloZAPine 25 MG TABLET PO ×2 (14:08→20:44)
[2021-10-11] MEDS: hydroCHLOROthiazide 25 MG TABLET PO (14:08)
[2021-10-11] MEDS: HaloperidoL 5 MG TABLET PO ×3 (14:08→20:44)
[2021-10-11] MEDS: Potassium Chloride Packet 20 MEQ PACKET 40 MEQ PO (14:09)
[2021-10-11] MEDS: Propranolol HCL 10 MG TABLET PO (14:09)
[2021-10-11] MEDS: Milk of Magnesia 30 ML ORAL.SUSP PO (16:03)
--- NOTE | 2021-10-11 20:09 | HO.PSYCHPN ---
Subjective Subjective Date of Service: 10/11/21 Reason For Visit: psychotic disorder Subjective Notes: Section 12B Healthcare Proxy: Yes Interim History: pt depresssed withdrawn has been eating pos alvarez of devil continue Medication Compliance: Intermittent Attending Groups: Intermittent Review of Systems some blood per rectum Mental Status Exam Mental Status Exam Patient Appearance: Appropriate Patient Orientation: Person and Situation Level of Consciousness: Awake Patient Behavior: Guarded, Cooperative, Passive and Anxious Mood Description: Depressed, Anxious and Blunted Affect Description: Blunted and Apprehensive Patient Cognition Impaired: Yes Ability to Follow Directions: Good Speech Pattern: Clear Hallucinations: Auditory Delusions: Paranoid Ideation Thought Process: Distracted Thought Content: positive for [place] and positive for Poverty of Content Judgement: Fair Judgement and Insight: Denies active self-harm she does want help Diagnostics Vital Signs (24Hr): Vital Signs - 24 hr 10/11/21 08:23 Temperature 97.5 F Pulse Rate 86 Blood Pressure 84/55 L Pulse Oximetry 97 BMI result Body Mass Index 24.6 Labs Results: 10/08/21 07:16 10/10/21 10:58 Labs: Laboratory Results - last 48 hr 10/10/21 10:58 Sodium 143 Potassium 3.5 D Chloride 105 Carbon Dioxide 27 Anion Gap 15 BUN 13 Creatinine 0.87 Estim Creat Clear Calc 54.0 Estimated GFR > 60 Random Glucose 109 Calcium 12.0 H D Magnesium 1.7 Imaging Radiology Impressions: ITS Impressions Head CT 10/08/21 15:16 IMPRESSION: No acute intracranial pathology. Head CT 10/09/21 13:54 IMPRESSION: No acute intracranial pathology. Medications Medications Current Medications Acetaminophen (Acetaminophen 325 Mg Tablet) 650 mg PO Q6H PRN PRN Reason: Headache/Pain Mild Scale (1-3) Last Admin: 10/08/21 22:18 Dose: 650 mg Documented by: Al Hydroxide/Mg Hydroxide (Magnesium Hydrox/Alum Hydrox 30 Ml Oral.Susp) 30 ml PO Q6H PRN PRN Reason: Heartburn/Nausea Apixaban (Apixaban 5 Mg Tablet) 5 mg PO BID [facility] Last Admin: 10/11/21 14:07 Dose: 5 mg Documented by: Clonazepam (Clonazepam 0.5 Mg Tablet) 0.25 mg PO BID PRN PRN Reason: agitation, anxiety Clozapine (Clozapine 100 Mg Tablet) 200 mg PO BEDTIME [facility] Last Admin: 10/10/21 20:28 Dose: 200 mg Documented by: Clozapine (Clozapine 25 Mg Tablet) 25 mg PO BID [facility] Last Admin: 10/11/21 14:08 Dose: 25 mg Documented by: Desmopressin Acetate (Desmopressin Acetate 0.2 Mg Tablet) 0.2 mg PO BID [facility] Last Admin: 10/11/21 14:08 Dose: 0.2 mg Documented by: Haloperidol (Haloperidol 5 Mg Tablet) 5 mg PO TID [facility] Last Admin: 10/11/21 16:02 Dose: 5 mg Documented by: Hydrochlorothiazide (Hydrochlorothiazide 25 Mg Tablet) 25 mg PO DAILY [facility]; Protocol Last Admin: 10/11/21 14:08 Dose: 25 mg Documented by: Hydroxyzine HCl (Hydroxyzine Hcl 25 Mg Tablet) 25 mg PO BEDTIME PRN PRN Reason: Anxiety Magnesium Hydroxide (Milk Of Magnesia 30 Ml Oral.Susp) 30 ml PO DAILY PRN PRN Reason: Constipation Last Admin: 10/11/21 16:03 Dose: 30 ml Documented by: Mirtazapine (Mirtazapine 30 Mg Tablet) 30 mg PO BEDTIME [facility] Last Admin: 10/10/21 20:28 Dose: 30 mg Documented by: Potassium Chloride (Potassium Chloride Packet 20 Meq Packet) 40 meq PO BID [facility] Last Admin: 10/11/21 14:09 Dose: 40 meq Documented by: Propranolol HCl (Propranolol Hcl 10 Mg Tablet) 10 mg PO DAILY [facility]; Protocol Last Admin: 10/11/21 14:09 Dose: 10 mg Documented by: Trazodone HCl (Trazodone Hcl 50 Mg Tablet) 50 mg PO BEDTIME PRN PRN Reason: Insomnia Allergies Allergies Allergy/AdvReac Type Severity Reaction Status Date / Time No Known Allergies Allergy Unverified 05/01/20 19:42 [No Known Allergies*] Assessment & Plan Assessment & Plan (1) Hypertension: Status: Acute Code(s): I10 - Essential (primary) hypertension Plan 66-year-old female with Alzheimer's dementia, behavior disturbance, bipolar disorder, hyperparathyroidism, nephrogenic diabetes insipidus, vitamin-D deficiency, B12 deficiency, hypothyroidism, anxiety, history of femoral vein DVT in August of 2021. She is presently admitted to the psychiatric unit due to decompensated bipolar disorder/psychosis. Psychiatrically, we will continue Haldol 5 mg p.o. t.i.d. and clozapine. We are waiting for the clozapine levels in order to increase clozapine to target psychosis. At this moment we will start the titration of Clozaril with 25 mg p.o. b.i.d. Patient tolerating medication trial remains depressed and psychotic 10/11/21 Pt depressed withdrawn devil/god telling her not to take meds had episode bright red blood per rectum ck cbc encourage meds ? affirm HCP Reason for contiued inpatient stay Substantial Risk for: harm to self and inability to function
[2021-10-11 20:43] VITALS: BP 90/51; PULSE 86; RESP 17; TEMP 36.9; O2SAT 98
[2021-10-11] MEDS: cloZAPine 100 MG TABLET 200 MG PO (20:44)
[2021-10-11] MEDS: Mirtazapine 30 MG TABLET PO (20:44)
[2021-10-12 08:20] VITALS: BP 105/63; PULSE 95; RESP 16; TEMP 36.3; O2SAT 97
[2021-10-12] MEDS: Apixaban 5 MG TABLET PO ×2 (09:31→19:46)
[2021-10-12] MEDS: Desmopressin Acetate 0.2 MG TABLET PO ×2 (09:31→19:46)
[2021-10-12] MEDS: hydroCHLOROthiazide 25 MG TABLET PO (09:31)
[2021-10-12] MEDS: HaloperidoL 5 MG TABLET PO ×3 (09:31→19:46)
[2021-10-12] MEDS: cloZAPine 25 MG TABLET PO (09:31)
[2021-10-12] MEDS: Propranolol HCL 10 MG TABLET PO (09:31)
[2021-10-12 10:37] LABS: Appearance Urine CLOUDY; Glucose Urine UA NEG (NEG); Leukocyte Esterase Urine 1+ (NEG); Nitrite Urine NEG (NEG); PH 6.5 (5.0-8.0); Specific Gravity - Urine <= 1.005 (1.005-1.025); Urine Blood 3+ (NEG); Urine Ketones NEG (NEG); Urine Protein TRACE MG/DL (NEG-TRACE)
[2021-10-12 10:39] LABS: Color Urine PINK
[2021-10-12 11:26] LABS: MANUAL DIFF FLAG NO
[2021-10-12 11:30] LABS: Basophils Absolute Auto 0.1 X10*3/uL (0.0-0.2); Basophils Percent Auto 0.8 % (0-2); Eosinophils Absolute Auto 0.1 X10*3/uL (0.0-0.4); Eosinophils Percent Auto 1.9 % (0-4); Hematocrit 39.1 % (37.0-47.0); Hemoglobin 12.2 g/dl (12.0-16.0); Imm Gran Abs Auto 0.06 X10*3/uL (0.00-0.03); Lymphocytes Absolute Auto 2.2 X10*3/uL (1.2-4.9); Lymphocytes Percent Auto 35.5 % (20-40); Mean Corpuscular HGB Conc 31.2 g/dl (31.0-35.0); Mean Corpuscular Hemoglobin 24.1 pg (27.0-33.0); Mean Corpuscular Volume 77.3 fL (80.0-98.0); Mean Platelet Volume 10.3 fL (9.4-12.3); Monocytes Absolute Auto 0.7 X10*3/uL (0.1-1.2); Monocytes Percent Auto 11.7 % (2-11); Neutrophils Absolute Auto 3.1 x10*3/uL (2.0-8.3); Neutrophils Percent Auto 49.1 % (45-73); Platelet Count 193 X10*3/uL (160-400); Red Blood Count 5.06 X10*6/uL (4.20-5.50); Red Cell Distribution Width 14.5 % (11.0-16.0); White Blood Count 6.3 X10*3/uL (4.8-10.8)
[2021-10-12 11:33] LABS: Squamous Epithelial Cell Urine 3+ /LPF
[2021-10-12 11:34] LABS: Bacteria Urine TRACE /LPF
[2021-10-12 14:00] VITALS: BP 104/53; PULSE 99; RESP 18; TEMP 36.7; O2SAT 97
--- NOTE | 2021-10-12 15:40 | PC.NURSE ---
Pt. observed walking in front of nurses station. Other staff all assisting other patients. This process description writer zion to assist pt., as she is high fall risk. Witnessed pt. exclaim, Help, help! and then let go of walker and use her right hand to support herself using the wall of nurses station and slowly lowered herself to her knees and then rolled herself slowly to her right side. She did not hit her head. Pt. assessed for injury and none noted. VSS. Denies pain. Assisted into wheelchair. Dr. Mcdonnell and daughter Elizabeth Norwood notified.
--- NOTE | 2021-10-12 16:30 | HO.PSYCHPN ---
Subjective Subjective Date of Service: 10/12/21 Reason For Visit: psychotic disorder Subjective Notes: Conditional Voluntary Interim History: The nursing staff reported the patient had vaginal bleeding. She remains most of the time in her bed eating very little. On interview, the patient was seclusive in her room sleeping and stating that she had her perioud again, even thought that she is perimenopausal. She looks internally preoccupied and responding to internal stimuli. Mental Status Exam Mental Status Exam Patient Appearance: Well Grooomed Patient Orientation: Person Level of Consciousness: Awake Patient Behavior: Guarded, Cooperative and Passive Mood Description: Depressed Affect Description: Constricted Patient Cognition Impaired: Yes Ability to Follow Directions: Good Speech Pattern: Clear Hallucinations: Auditory Delusions: Paranoid Ideation Thought Process: Distracted and Evasive Thought Content: positive for Poverty of Content and positive for Thought Blocking Judgement: Fair Diagnostics Vital Signs (24Hr): Vital Signs - 24 hr 10/11/21 20:43 10/12/21 08:20 10/12/21 14:00 Temperature 98.4 F 97.4 F 98.0 F Pulse Rate 86 95 99 Respiratory Rate 17 16 18 Blood Pressure 90/51 L 105/63 104/53 L Pulse Oximetry 98 97 97 BMI result Body Mass Index 24.6 Labs Results: 10/12/21 11:19 10/10/21 10:58 Labs: Laboratory Results - last 48 hr 10/12/21 10/12/21 10:14 11:19 WBC 6.3 RBC 5.06 Hgb 12.2 Hct 39.1 MCV 77.3 L MCH 24.1 L MCHC 31.2 RDW 14.5 Plt Count 193 MPV 10.3 Immature Gran % (Auto) 1.0 H Neut % (Auto) 49.1 Lymph % (Auto) 35.5 [place] % (Auto) 11.7 H Eos % (Auto) 1.9 Baso % (Auto) 0.8 Lymph # (Auto) 2.2 [place] # (Auto) 0.7 Eos # (Auto) 0.1 Baso # (Auto) 0.1 Abs Immat Gran (auto) 0.06 H Absolute Neuts (auto) 3.1 Absolute Nucleated RBC 0.000 Nucleated RBC % (auto) 0.0 Urine Color PINK Urine Appearance CLOUDY Urine pH 6.5 Ur Specific [place] <= 1.005 Urine Protein TRACE Urine Glucose (UA) NEG Urine Ketones NEG Urine Blood 3+ H Urine Nitrite NEG Ur Leukocyte Esterase 1+ H Urine RBC 76-150 H Urine WBC 5-9 H Ur Squamous Epith Cells 3+ Urine Bacteria TRACE Imaging Radiology Impressions: ITS Impressions Head CT 10/08/21 15:16 IMPRESSION: No acute intracranial pathology. Head CT 10/09/21 13:54 IMPRESSION: No acute intracranial pathology. Medications Medications Current Medications Acetaminophen (Acetaminophen 325 Mg Tablet) 650 mg PO Q6H PRN PRN Reason: Headache/Pain Mild Scale (1-3) Last Admin: 10/08/21 22:18 Dose: 650 mg Documented by: Al Hydroxide/Mg Hydroxide (Magnesium Hydrox/Alum Hydrox 30 Ml Oral.Susp) 30 ml PO Q6H PRN PRN Reason: Heartburn/Nausea Apixaban (Apixaban 5 Mg Tablet) 5 mg PO BID [facility] Last Admin: 10/12/21 09:31 Dose: 5 mg Documented by: Clonazepam (Clonazepam 0.5 Mg Tablet) 0.25 mg PO BID PRN PRN Reason: agitation, anxiety Clozapine (Clozapine 100 Mg Tablet) 200 mg PO BEDTIME [facility] Last Admin: 10/11/21 20:44 Dose: 200 mg Documented by: Clozapine (Clozapine 25 Mg Tablet) 25 mg PO BID [facility] Last Admin: 10/12/21 09:31 Dose: 25 mg Documented by: Desmopressin Acetate (Desmopressin Acetate 0.2 Mg Tablet) 0.2 mg PO BID [facility] Last Admin: 10/12/21 09:31 Dose: 0.2 mg Documented by: Haloperidol (Haloperidol 5 Mg Tablet) 5 mg PO TID [facility] Last Admin: 10/12/21 15:03 Dose: 5 mg Documented by: Hydrochlorothiazide (Hydrochlorothiazide 25 Mg Tablet) 25 mg PO DAILY [facility]; Protocol Last Admin: 10/12/21 09:31 Dose: 25 mg Documented by: Hydroxyzine HCl (Hydroxyzine Hcl 25 Mg Tablet) 25 mg PO BEDTIME PRN PRN Reason: Anxiety Magnesium Hydroxide (Milk Of Magnesia 30 Ml Oral.Susp) 30 ml PO DAILY PRN PRN Reason: Constipation Last Admin: 10/11/21 16:03 Dose: 30 ml Documented by: Mirtazapine (Mirtazapine 30 Mg Tablet) 30 mg PO BEDTIME [facility] Last Admin: 10/11/21 20:44 Dose: 30 mg Documented by: Potassium Chloride (Potassium Chloride Packet 20 Meq Packet) 40 meq PO BID [facility] Last Admin: 10/12/21 15:09 Dose: Not Given Documented by: Propranolol HCl (Propranolol Hcl 10 Mg Tablet) 10 mg PO DAILY [facility]; Protocol Last Admin: 10/12/21 09:31 Dose: 10 mg Documented by: Trazodone HCl (Trazodone Hcl 50 Mg Tablet) 50 mg PO BEDTIME PRN PRN Reason: Insomnia Allergies Allergies Allergy/AdvReac Type Severity Reaction Status Date / Time No Known Allergies Allergy Unverified 05/01/20 19:42 [No Known Allergies*] Assessment & Plan Assessment & Plan (1) Hypertension: Status: Acute Code(s): I10 - Essential (primary) hypertension Plan 66-year-old female with Alzheimer's dementia, behavior disturbance, bipolar disorder, hyperparathyroidism, nephrogenic diabetes insipidus, vitamin-D deficiency, B12 deficiency, hypothyroidism, anxiety, history of femoral vein DVT in August of 2021. She is presently admitted to the psychiatric unit due to decompensated bipolar disorder/psychosis. Psychiatrically, we will continue Haldol 5 mg p.o. t.i.d. and clozapine. We are waiting for the clozapine levels in order to increase clozapine to target psychosis. At this moment we will start the titration of Clozaril with 25 mg p.o. b.i.d. Patient tolerating medication trial remains depressed and psychotic Pt depressed withdrawn devil/god telling her not to take meds. Recently she has vaginal bleeding. Plan 1. Increased clozapine up to 50 mg p.o. b.i.d. and keep the same dose at HS. 2. Ultrasound pelvic . I spent minutes with the patient and/or on the patient floor today, greater than?50% of which was spent counseling/coordinating care. Reason for contiued inpatient stay Substantial Risk for: inability to function, rapid decompensation and med/psych decompensation
[2021-10-12 19:40] VITALS: BP 120/54; PULSE 90; RESP 18; TEMP 36.9; O2SAT 98
[2021-10-12] MEDS: cloZAPine 100 MG TABLET 200 MG PO (19:46)
[2021-10-12] MEDS: Mirtazapine 30 MG TABLET PO (19:46)
[2021-10-12] MEDS: cloZAPine 25 MG TABLET 50 MG PO (19:46)
[2021-10-12] MEDS: Potassium Chloride Packet 20 MEQ PACKET 40 MEQ PO (19:55)
[2021-10-13 07:40] VITALS: BP 106/62; PULSE 89; RESP 16; TEMP 36.7; O2SAT 98
[2021-10-13] MEDS: hydroCHLOROthiazide 25 MG TABLET PO (08:23)
[2021-10-13] MEDS: cloZAPine 25 MG TABLET 50 MG PO (08:23)
[2021-10-13] MEDS: HaloperidoL 5 MG TABLET PO ×2 (08:23→16:55)
[2021-10-13] MEDS: Propranolol HCL 10 MG TABLET PO (08:23)
[2021-10-13] MEDS: Apixaban 5 MG TABLET PO (08:23)
[2021-10-13] MEDS: Desmopressin Acetate 0.2 MG TABLET PO (08:24)
--- NOTE | 2021-10-13 12:01 | HO.PSYCHPN ---
Subjective Subjective Date of Service: 10/13/21 Reason For Visit: psychotic disorder Subjective Notes: Conditional Voluntary Interim History: The nursing staff reported the patient since admission had 2 falls the last 1 yesterday. She had vaginal bleeding and she had an ultrasound today. The staff reports the patient can walk very well with her walker and still she reports auditory hallucinations. On interview, she denies new symptoms she is pleasant but admitted psychotic symptoms, much less than before Review of Systems Acute medical concerns: Yes Vaginal bleeding Medical Review of Systems: changed Mental Status Exam Mental Status Exam Patient Appearance: Appropriate Patient Orientation: Person Level of Consciousness: Awake Patient Behavior: Cooperative Mood Description: Depressed Affect Description: Constricted Patient Cognition Impaired: Yes Ability to Follow Directions: Good Speech Pattern: Clear Hallucinations: Auditory Delusions: Paranoid Ideation Thought Process: Linear Thought Content: positive for Circumstantial and positive for Preoccupation Judgement: Fair Diagnostics Vital Signs (24Hr): Vital Signs - 24 hr 10/12/21 14:00 10/12/21 19:40 10/13/21 07:40 Temperature 98.0 F 98.4 F 98.0 F Pulse Rate 99 90 89 Respiratory Rate 18 18 16 Blood Pressure 104/53 L 120/54 L 106/62 Pulse Oximetry 97 98 98 BMI result Body Mass Index 24.6 Labs Results: 10/12/21 11:19 10/10/21 10:58 Labs: Laboratory Results - last 48 hr 10/12/21 10/12/21 10:14 11:19 WBC 6.3 RBC 5.06 Hgb 12.2 Hct 39.1 MCV 77.3 L MCH 24.1 L MCHC 31.2 RDW 14.5 Plt Count 193 MPV 10.3 Immature Gran % (Auto) 1.0 H Neut % (Auto) 49.1 Lymph % (Auto) 35.5 [place] % (Auto) 11.7 H Eos % (Auto) 1.9 Baso % (Auto) 0.8 Lymph # (Auto) 2.2 [place] # (Auto) 0.7 Eos # (Auto) 0.1 Baso # (Auto) 0.1 Abs Immat Gran (auto) 0.06 H Absolute Neuts (auto) 3.1 Absolute Nucleated RBC 0.000 Nucleated RBC % (auto) 0.0 Urine Color PINK Urine Appearance CLOUDY Urine pH 6.5 Ur Specific [place] <= 1.005 Urine Protein TRACE Urine Glucose (UA) NEG Urine Ketones NEG Urine Blood 3+ H Urine Nitrite NEG Ur Leukocyte Esterase 1+ H Urine RBC 76-150 H Urine WBC 5-9 H Ur Squamous Epith Cells 3+ Urine Bacteria TRACE Imaging Radiology Impressions: ITS Impressions Head CT 10/08/21 15:16 IMPRESSION: No acute intracranial pathology. Head CT 10/09/21 13:54 IMPRESSION: No acute intracranial pathology. Medications Medications Current Medications Acetaminophen (Acetaminophen 325 Mg Tablet) 650 mg PO Q6H PRN PRN Reason: Headache/Pain Mild Scale (1-3) Last Admin: 10/08/21 22:18 Dose: 650 mg Documented by: Al Hydroxide/Mg Hydroxide (Magnesium Hydrox/Alum Hydrox 30 Ml Oral.Susp) 30 ml PO Q6H PRN PRN Reason: Heartburn/Nausea Apixaban (Apixaban 5 Mg Tablet) 5 mg PO BID [facility] Last Admin: 10/13/21 08:23 Dose: 5 mg Documented by: Clonazepam (Clonazepam 0.5 Mg Tablet) 0.25 mg PO BID PRN PRN Reason: agitation, anxiety Clozapine (Clozapine 100 Mg Tablet) 200 mg PO BEDTIME [facility] Last Admin: 10/12/21 19:46 Dose: 200 mg Documented by: Clozapine (Clozapine 25 Mg Tablet) 50 mg PO BID [facility] Last Admin: 10/13/21 08:23 Dose: 50 mg Documented by: Desmopressin Acetate (Desmopressin Acetate 0.2 Mg Tablet) 0.2 mg PO BID [facility] Last Admin: 10/13/21 08:24 Dose: 0.2 mg Documented by: Haloperidol (Haloperidol 5 Mg Tablet) 5 mg PO TID [facility] Last Admin: 10/13/21 08:23 Dose: 5 mg Documented by: Hydrochlorothiazide (Hydrochlorothiazide 25 Mg Tablet) 25 mg PO DAILY [facility]; Protocol Last Admin: 10/13/21 08:23 Dose: 25 mg Documented by: Hydroxyzine HCl (Hydroxyzine Hcl 25 Mg Tablet) 25 mg PO BEDTIME PRN PRN Reason: Anxiety Magnesium Hydroxide (Milk Of Magnesia 30 Ml Oral.Susp) 30 ml PO DAILY PRN PRN Reason: Constipation Last Admin: 10/11/21 16:03 Dose: 30 ml Documented by: Mirtazapine (Mirtazapine 30 Mg Tablet) 30 mg PO BEDTIME [facility] Last Admin: 10/12/21 19:46 Dose: 30 mg Documented by: Potassium Chloride (Potassium Chloride Er 10 Meq Capsule.Er) 40 meq PO BID [facility] Propranolol HCl (Propranolol Hcl 10 Mg Tablet) 10 mg PO DAILY [facility]; Protocol Last Admin: 10/13/21 08:23 Dose: 10 mg Documented by: Trazodone HCl (Trazodone Hcl 50 Mg Tablet) 50 mg PO BEDTIME PRN PRN Reason: Insomnia Allergies Allergies Allergy/AdvReac Type Severity Reaction Status Date / Time No Known Allergies Allergy Unverified 05/01/20 19:42 [No Known Allergies*] Assessment & Plan Assessment & Plan (1) Hypertension: Status: Acute Code(s): I10 - Essential (primary) hypertension Plan 66-year-old female with Alzheimer's dementia, behavior disturbance, bipolar disorder, hyperparathyroidism, nephrogenic diabetes insipidus, vitamin-D deficiency, B12 deficiency, hypothyroidism, anxiety, history of femoral vein DVT in August of 2021. She is presently admitted to the psychiatric unit due to decompensated bipolar disorder/psychosis. Psychiatrically, we will continue Haldol 5 mg p.o. t.i.d. and clozapine. We are waiting for the clozapine levels in order to increase clozapine to target psychosis. At this moment we will start the titration of Clozaril with 25 mg p.o. b.i.d. Patient tolerating medication trial remains depressed and psychotic Pt depressed withdrawn devil/god telling her not to take meds. Recently she has vaginal bleeding. Plan 1. Increased clozapine up to 50 mg p.o. b.i.d. and keep the same dose at HS. 2. Ultrasound pelvic . 3. CONTRACT ASSISTANT consult. I spent ___30___ minutes with the patient and/or on the patient floor today, greater than?50% of which was spent counseling/coordinating care. Reason for contiued inpatient stay Substantial Risk for: inability to function, rapid decompensation and med/psych decompensation
[2021-10-13 18:00] VITALS: BP 102/51; PULSE 88; RESP 18; TEMP 36.2; O2SAT 95
[2021-10-13 18:11] LABS: Clozapine (Clozaril) 546 mcg/L; Norclozapine 279 mcg/L (25-400)
[2021-10-14 06:00] VITALS: BP 148/75; PULSE 103; TEMP 36.9; O2SAT 97
--- NOTE | 2021-10-14 11:03 | PC.NURSE ---
Daughter/HCP Elizabeth Herreramabelchandu updated that pt. has had vaginal bleeding and ultrasound result requires follow up with an [facility] after discharge.
--- NOTE | 2021-10-14 12:51 | P.PNPSI_ITS ---
Subjective Subjective Date of Service: 10/14/21 Reason For Visit: psychotic disorder Subjective Notes: Conditional Voluntary (By healthcare proxy) Interim History: The nursing staff reported the patient has poor p.o. intake, she has been eating very little. She has complained of auditory hallucinations commanding her not to eat, according to her, got was ordering her not to eat. She has refused her medications yesterday in the afternoon. Yesterday, I contacted the QUALITY ASSURANCE INTERN Dr. Kellogg and he suggested to followed the postmenopausal vaginal bleeding as an outpatient since the MRI was not massive. She had her ultrasound showed polyps. Mental Status Exam Mental Status Exam Patient Appearance: Appropriate Patient Orientation: Person Level of Consciousness: Awake Patient Behavior: Appropriate Mood Description: Withdrawn Affect Description: Constricted and Depressed Patient Cognition Impaired: Yes Ability to Follow Directions: Fair Speech Pattern: Clear Hallucinations: Auditory Delusions: Being Controlled and Paranoid Ideation Thought Process: Illogical and Evasive Thought Content: positive for [place] and positive for Poverty of Content Judgement: Poor Diagnostics Vital Signs (24Hr): Vital Signs - 24 hr 10/13/21 18:00 Temperature 97.2 F Pulse Rate 88 Respiratory Rate 18 Blood Pressure 102/51 L Pulse Oximetry 95 BMI result Body Mass Index 24.6 Labs Results: 10/12/21 11:19 10/10/21 10:58 Labs: Laboratory Results - last 48 hr 10/09/21 08:37 Clozapine 546 Norclozapine 279 Imaging Radiology Impressions: ITS Impressions Head CT 10/08/21 15:16 IMPRESSION: No acute intracranial pathology. Head CT 10/09/21 13:54 IMPRESSION: No acute intracranial pathology. Pelvic/Transvag US 10/13/21 09:24 IMPRESSION: Abnormally thickened endometrium for a postmenopausal patient measuring 0.9 cm. 3 x 2.7 x 3.7 cm mass in the posterior cervix. This may represent a fibroid. Slightly thickened trabeculated bladder wall. Medications Medications Current Medications Acetaminophen (Acetaminophen 325 Mg Tablet) 650 mg PO Q6H PRN PRN Reason: Headache/Pain Mild Scale (1-3) Last Admin: 10/08/21 22:18 Dose: 650 mg Documented by: Al Hydroxide/Mg Hydroxide (Magnesium Hydrox/Alum Hydrox 30 Ml Oral.Susp) 30 ml PO Q6H PRN PRN Reason: Heartburn/Nausea Apixaban (Apixaban 5 Mg Tablet) 5 mg PO BID [facility] Last Admin: 10/14/21 10:12 Dose: Not Given Documented by: Clonazepam (Clonazepam 0.5 Mg Tablet) 0.25 mg PO BID PRN PRN Reason: agitation, anxiety Clozapine (Clozapine 100 Mg Tablet) 200 mg PO BEDTIME [facility] Last Admin: 10/14/21 00:54 Dose: Not Given Documented by: Clozapine (Clozapine 25 Mg Tablet) 50 mg PO BID [facility] Last Admin: 10/14/21 10:12 Dose: Not Given Documented by: Desmopressin Acetate (Desmopressin Acetate 0.2 Mg Tablet) 0.2 mg PO BID [facility] Last Admin: 10/14/21 10:12 Dose: Not Given Documented by: Haloperidol (Haloperidol 5 Mg Tablet) 5 mg PO TID [facility] Last Admin: 10/14/21 10:12 Dose: Not Given Documented by: Hydrochlorothiazide (Hydrochlorothiazide 25 Mg Tablet) 25 mg PO DAILY [facility]; Protocol Last Admin: 10/14/21 10:13 Dose: Not Given Documented by: Hydroxyzine HCl (Hydroxyzine Hcl 25 Mg Tablet) 25 mg PO BEDTIME PRN PRN Reason: Anxiety Magnesium Hydroxide (Milk Of Magnesia 30 Ml Oral.Susp) 30 ml PO DAILY PRN PRN Reason: Constipation Last Admin: 10/11/21 16:03 Dose: 30 ml Documented by: Mirtazapine (Mirtazapine 30 Mg Tablet) 30 mg PO BEDTIME [facility] Last Admin: 10/14/21 00:55 Dose: Not Given Documented by: Potassium Chloride (Potassium Chloride Er 10 Meq Capsule.Er) 40 meq PO BID [facility] Last Admin: 10/14/21 10:13 Dose: Not Given Documented by: Propranolol HCl (Propranolol Hcl 10 Mg Tablet) 10 mg PO DAILY [facility]; Protocol Last Admin: 10/14/21 10:13 Dose: Not Given Documented by: Trazodone HCl (Trazodone Hcl 50 Mg Tablet) 50 mg PO BEDTIME PRN PRN Reason: Insomnia Allergies Allergies Allergy/AdvReac Type Severity Reaction Status Date / Time No Known Allergies Allergy Unverified 05/01/20 19:42 [No Known Allergies*] Assessment & Plan Assessment & Plan (1) Hypertension: Status: Acute Code(s): I10 - Essential (primary) hypertension Plan 66-year-old female with Alzheimer's dementia, behavior disturbance, bipolar disorder, hyperparathyroidism, nephrogenic diabetes insipidus, vitamin-D deficiency, B12 deficiency, hypothyroidism, anxiety, history of femoral vein DVT in August of 2021. She is presently admitted to the psychiatric unit due to decompensated bipolar disorder/psychosis. Psychiatrically, we will continue Haldol 5 mg p.o. t.i.d. and clozapine. We are waiting for the clozapine levels in order to increase clozapine to target psychosis. At this moment we will start the titration of Clozaril with 25 mg p.o. b.i.d. Patient tolerating medication trial remains depressed and psychotic Pt depressed withdrawn devil/god telling her not to take meds. Recently she has vaginal bleeding. Plan 1. Keep clozapine up to 50 mg p.o. b.i.d. and keep the same dose at HS. 2. Ultrasound pelvic showed myomas . 3. QUALITY ASSURANCE INTERN consult to be done as an outpatient. 4. Increase Haldol to 10 mg p.o. b.i.d. and assess for EPS tomorrow I spent ____20__ minutes with the patient and/or on the patient floor today, greater than?50% of which was spent counseling/coordinating care. Patient educated on: diagnosis, therapeutic strategies and medical condition Informed Consent: further education needed Reason for contiued inpatient stay Substantial Risk for: inability to function, rapid decompensation and med/psych decompensation
[2021-10-14 18:00] VITALS: BP 116/65; PULSE 111; RESP 18; TEMP 36.6; O2SAT 97
[2021-10-14] MEDS: cloZAPine 25 MG TABLET 50 MG PO (20:40)
[2021-10-14] MEDS: HaloperidoL 5 MG TABLET 10 MG PO (20:42)
[2021-10-14] MEDS: Desmopressin Acetate 0.2 MG TABLET PO (20:43)
[2021-10-14] MEDS: cloZAPine 100 MG TABLET 200 MG PO (20:44)
[2021-10-14] MEDS: Mirtazapine 30 MG TABLET PO (20:45)
[2021-10-15 07:00] VITALS: BMI 24.3
[2021-10-15 08:47] VITALS: BP 98/53; PULSE 97; RESP 14; TEMP 36.8; O2SAT 98
--- NOTE | 2021-10-15 14:47 | HO.PSYCHPN ---
Subjective Subjective Date of Service: 10/15/21 Reason For Visit: psychotic disorder Subjective Notes: Conditional Voluntary Interim History: the patient remains on one-to-one for safety. She stated that she still has but thoughts and auditory hallucinations and she sporadically refuses her medications. Last night she took all her bedtime meds. On interview, the patient remains with auditory hallucinations and paranoia but today she looks less agitated. She stated that she is doing better but there is some EPS on physical exam. No evidence of over-sedation Mental Status Exam Mental Status Exam Patient Appearance: Well Grooomed Patient Orientation: Person Level of Consciousness: Awake Patient Behavior: Cooperative and Passive Mood Description: Labile Affect Description: Constricted Patient Cognition Impaired: Yes Ability to Follow Directions: Fair Speech Pattern: Clear Hallucinations: Auditory Delusions: Paranoid Ideation Thought Process: Illogical and Evasive Thought Content: positive for [place], positive for Poverty of Content and positive for Disorganized Judgement: Fair Diagnostics Vital Signs (24Hr): Vital Signs - 24 hr 10/14/21 18:00 10/15/21 08:47 Temperature 97.8 F 98.3 F Pulse Rate 111 H 97 Respiratory Rate 18 14 Blood Pressure 116/65 98/53 L Pulse Oximetry 97 98 BMI result Body Mass Index 24.3 Labs Results: 10/12/21 11:19 10/10/21 10:58 Labs: Laboratory Results - last 48 hr 10/09/21 08:37 Clozapine 546 Norclozapine 279 Imaging Radiology Impressions: ITS Impressions Head CT 10/08/21 15:16 IMPRESSION: No acute intracranial pathology. Head CT 10/09/21 13:54 IMPRESSION: No acute intracranial pathology. Pelvic/Transvag US 10/13/21 09:24 IMPRESSION: Abnormally thickened endometrium for a postmenopausal patient measuring 0.9 cm. 3 x 2.7 x 3.7 cm mass in the posterior cervix. This may represent a fibroid. Slightly thickened trabeculated bladder wall. Medications Medications Current Medications Acetaminophen (Acetaminophen 325 Mg Tablet) 650 mg PO Q6H PRN PRN Reason: Headache/Pain Mild Scale (1-3) Last Admin: 10/08/21 22:18 Dose: 650 mg Documented by: Al Hydroxide/Mg Hydroxide (Magnesium Hydrox/Alum Hydrox 30 Ml Oral.Susp) 30 ml PO Q6H PRN PRN Reason: Heartburn/Nausea Apixaban (Apixaban 5 Mg Tablet) 5 mg PO BID [facility] Last Admin: 10/15/21 13:47 Dose: Not Given Documented by: Clonazepam (Clonazepam 0.5 Mg Tablet) 0.25 mg PO BID PRN PRN Reason: agitation, anxiety Clozapine (Clozapine 100 Mg Tablet) 200 mg PO BEDTIME [facility] Last Admin: 10/14/21 20:44 Dose: 200 mg Documented by: Clozapine (Clozapine 25 Mg Tablet) 50 mg PO BID [facility] Last Admin: 10/15/21 13:47 Dose: Not Given Documented by: Desmopressin Acetate (Desmopressin Acetate 0.2 Mg Tablet) 0.2 mg PO BID [facility] Last Admin: 10/15/21 13:47 Dose: Not Given Documented by: Haloperidol (Haloperidol 5 Mg Tablet) 10 mg PO BID [facility] Last Admin: 10/15/21 13:48 Dose: Not Given Documented by: Hydrochlorothiazide (Hydrochlorothiazide 25 Mg Tablet) 25 mg PO DAILY [facility]; Protocol Last Admin: 10/15/21 13:48 Dose: Not Given Documented by: Hydroxyzine HCl (Hydroxyzine Hcl 25 Mg Tablet) 25 mg PO BEDTIME PRN PRN Reason: Anxiety Magnesium Hydroxide (Milk Of Magnesia 30 Ml Oral.Susp) 30 ml PO DAILY PRN PRN Reason: Constipation Last Admin: 10/11/21 16:03 Dose: 30 ml Documented by: Mirtazapine (Mirtazapine 30 Mg Tablet) 30 mg PO BEDTIME [facility] Last Admin: 10/14/21 20:45 Dose: 30 mg Documented by: Potassium Chloride (Potassium Chloride Er 10 Meq Capsule.Er) 40 meq PO BID [facility] Last Admin: 10/15/21 13:48 Dose: Not Given Documented by: Propranolol HCl (Propranolol Hcl 10 Mg Tablet) 10 mg PO DAILY [facility]; Protocol Last Admin: 10/15/21 13:48 Dose: Not Given Documented by: Trazodone HCl (Trazodone Hcl 50 Mg Tablet) 50 mg PO BEDTIME PRN PRN Reason: Insomnia Allergies Allergies Allergy/AdvReac Type Severity Reaction Status Date / Time No Known Allergies Allergy Unverified 05/01/20 19:42 [No Known Allergies*] Assessment & Plan Assessment & Plan (1) Hypertension: Status: Acute Code(s): I10 - Essential (primary) hypertension Plan 66-year-old female with Alzheimer's dementia, behavior disturbance, bipolar disorder, hyperparathyroidism, nephrogenic diabetes insipidus, vitamin-D deficiency, B12 deficiency, hypothyroidism, anxiety, history of femoral vein DVT in August of 2021. She is presently admitted to the psychiatric unit due to decompensated bipolar disorder/psychosis. Psychiatrically, we will continue Haldol 5 mg p.o. t.i.d. and clozapine. We are waiting for the clozapine levels in order to increase clozapine to target psychosis. At this moment we will start the titration of Clozaril with 25 mg p.o. b.i.d. Patient tolerating medication trial remains depressed and psychotic Pt depressed withdrawn devil/god telling her not to take meds. Recently she has vaginal bleeding. Plan 1. Keep clozapine up to 50 mg p.o. b.i.d. and keep the same dose at HS. 2. Ultrasound pelvic showed myomas . 3. MONEY POSITION OFFICER consult to be done as an outpatient. 4. Keep Haldol 10 mg p.o. b.i.d. and reassess for EPS tomorrow after adding a low dose of Cogentin. I spent __20____ minutes with the patient and/or on the patient floor today, greater than?50% of which was spent counseling/coordinating care. Patient educated on: therapeutic strategies Informed Consent: understands Reason for contiued inpatient stay Substantial Risk for: stable for discharge, rapid decompensation and med/psych decompensation
[2021-10-15] MEDS: Acetaminophen 325 MG TABLET 650 MG PO (15:43)
[2021-10-15] MEDS: clonazePAM 0.5 MG TABLET 0.25 MG PO (17:56)
[2021-10-15 18:00] VITALS: BP 104/62; PULSE 90; RESP 18; TEMP 36.8; O2SAT 99
[2021-10-15] MEDS: Mirtazapine 30 MG TABLET PO (21:14)
[2021-10-15] MEDS: Desmopressin Acetate 0.2 MG TABLET PO (21:15)
[2021-10-15] MEDS: HaloperidoL 5 MG TABLET 10 MG PO (21:15)
[2021-10-15] MEDS: cloZAPine 25 MG TABLET 50 MG PO (21:16)
[2021-10-15] MEDS: cloZAPine 100 MG TABLET 200 MG PO (21:17)
[2021-10-15] MEDS: Benztropine Mesylate 0.5 MG TABLET 0.25 MG PO (21:18)
[2021-10-16 06:00] VITALS: BP 98/60; PULSE 90; RESP 14; TEMP 36.8; O2SAT 97
--- NOTE | 2021-10-16 07:50 | HO.PSYCHPN ---
Subjective Subjective Date of Service: 10/16/21 Reason For Visit: psychotic disorder Subjective Notes: Conditional Voluntary Interim History: Pt continues to report hearing voices of God, sometimes this voice is not positive. She appears distress by the voices. She denies SI/HI. She is on one to one for safety due to unsteady gait. At times pt observed yelling at voices. Per nursing, eating and sleeping well. Medication Compliance: Yes Side effects from medications: No Attending Groups: No Review of Systems Review of Systems No fever, no chest, no shortness of breath, she is confused . The review of system is otherwise limited due to the patient's mental state Yes Unobtainable due to mental condition Mental Status Exam Mental Status Exam Patient Appearance: Well Grooomed Patient Orientation: Person Level of Consciousness: Awake Patient Behavior: Cooperative and Passive Mood Description: Labile Affect Description: Constricted Patient Cognition Impaired: Yes Ability to Follow Directions: Fair Speech Pattern: Clear Diagnostics Vital Signs (24Hr): Vital Signs - 24 hr 10/18/21 20:22 Temperature 98.8 F Pulse Rate 90 Respiratory Rate 16 Blood Pressure 98/50 L Pulse Oximetry 98 BMI result Body Mass Index 24.3 Labs Results: 10/19/21 07:26 10/10/21 10:58 Labs: Laboratory Results - last 48 hr 10/19/21 07:26 WBC 6.7 RBC 4.28 Hgb 10.8 L Hct 34.0 L MCV 79.4 L MCH 25.2 L MCHC 31.8 RDW 14.6 Plt Count 160 MPV 10.3 Immature Gran % (Auto) 0.7 H Neut % (Auto) 51.2 Lymph % (Auto) 33.6 [place] % (Auto) 11.5 H Eos % (Auto) 2.1 Baso % (Auto) 0.9 Lymph # (Auto) 2.2 [place] # (Auto) 0.8 Eos # (Auto) 0.1 Baso # (Auto) 0.1 Abs Immat Gran (auto) 0.05 H Absolute Neuts (auto) 3.4 Absolute Nucleated RBC 0.000 Nucleated RBC % (auto) 0.0 Imaging Radiology Impressions: ITS Impressions Head CT 10/08/21 15:16 IMPRESSION: No acute intracranial pathology. Head CT 10/09/21 13:54 IMPRESSION: No acute intracranial pathology. Pelvic/Transvag US 10/13/21 09:24 IMPRESSION: Abnormally thickened endometrium for a postmenopausal patient measuring 0.9 cm. 3 x 2.7 x 3.7 cm mass in the posterior cervix. This may represent a fibroid. Slightly thickened trabeculated bladder wall. Medications Medications Current Medications Acetaminophen (Acetaminophen 325 Mg Tablet) 650 mg PO Q6H PRN PRN Reason: Headache/Pain Mild Scale (1-3) Last Admin: 10/16/21 19:52 Dose: 650 mg Documented by: Al Hydroxide/Mg Hydroxide (Magnesium Hydrox/Alum Hydrox 30 Ml Oral.Susp) 30 ml PO Q6H PRN PRN Reason: Heartburn/Nausea Apixaban (Apixaban 5 Mg Tablet) 5 mg PO BID [facility] Last Admin: 10/18/21 20:22 Dose: 5 mg Documented by: Benztropine Mesylate (Benztropine Mesylate 0.5 Mg Tablet) 0.25 mg PO BID [facility] Last Admin: 10/18/21 20:20 Dose: 0.25 mg Documented by: Clozapine (Clozapine 100 Mg Tablet) 200 mg PO BEDTIME [facility] Last Admin: 10/18/21 20:24 Dose: 200 mg Documented by: Clozapine (Clozapine 25 Mg Tablet) 50 mg PO BID [facility] Last Admin: 10/18/21 20:22 Dose: 50 mg Documented by: Desmopressin Acetate (Desmopressin Acetate 0.2 Mg Tablet) 0.2 mg PO BID [facility] Last Admin: 10/18/21 20:20 Dose: 0.2 mg Documented by: Haloperidol (Haloperidol 5 Mg Tablet) 10 mg PO BID [facility] Last Admin: 10/18/21 20:22 Dose: 10 mg Documented by: Hydrochlorothiazide (Hydrochlorothiazide 25 Mg Tablet) 25 mg PO DAILY [facility]; Protocol Last Admin: 10/18/21 09:59 Dose: 25 mg Documented by: Hydroxyzine HCl (Hydroxyzine Hcl 25 Mg Tablet) 25 mg PO BEDTIME PRN PRN Reason: Anxiety Magnesium Hydroxide (Milk Of Magnesia 30 Ml Oral.Susp) 30 ml PO DAILY PRN PRN Reason: Constipation Last Admin: 10/11/21 16:03 Dose: 30 ml Documented by: Mirtazapine (Mirtazapine 15 Mg Tablet) 15 mg PO BEDTIME [facility] Last Admin: 10/18/21 20:20 Dose: 15 mg Documented by: Potassium Chloride (Potassium Chloride Er 10 Meq Capsule.Er) 40 meq PO BID [facility] Last Admin: 10/18/21 20:22 Dose: 40 meq Documented by: Propranolol HCl (Propranolol Hcl 10 Mg Tablet) 10 mg PO DAILY [facility]; Protocol Last Admin: 10/18/21 09:58 Dose: 10 mg Documented by: Trazodone HCl (Trazodone Hcl 50 Mg Tablet) 50 mg PO BEDTIME PRN PRN Reason: Insomnia Last Admin: 10/18/21 22:28 Dose: 50 mg Documented by: Allergies Allergies Allergy/AdvReac Type Severity Reaction Status Date / Time No Known Allergies Allergy Unverified 05/01/20 19:42 [No Known Allergies*] Assessment & Plan Assessment & Plan (1) Schizophrenia, paranoid, chronic with acute exacerbation: Status: Acute Code(s): F20.0 - Paranoid schizophrenia (2) Hypertension: Status: Acute Code(s): I10 - Essential (primary) hypertension Plan 66-year-old female with Alzheimer's dementia, behavior disturbance, bipolar disorder, hyperparathyroidism, nephrogenic diabetes insipidus, vitamin-D deficiency, B12 deficiency, hypothyroidism, anxiety, history of femoral vein DVT in August of 2021. She is presently admitted to the psychiatric unit due to decompensated bipolar disorder/psychosis. Psychiatrically, we will continue Haldol 5 mg p.o. t.i.d. and clozapine. We are waiting for the clozapine levels in order to increase clozapine to target psychosis. At this moment we will start the titration of Clozaril with 25 mg p.o. b.i.d. Patient tolerating medication trial remains depressed and psychotic Pt depressed withdrawn devil/god telling her not to take meds. Recently she has vaginal bleeding. Plan 1. Keep clozapine up to 50 mg p.o. b.i.d. and keep the same dose at HS. 2. Ultrasound pelvic showed myomas . 3. [employer] consult to be done as an outpatient. 4. Keep Haldol 10 mg p.o. b.i.d. and reassess for EPS tomorrow after adding a low dose of Cogentin. 3/4 continue current medications. I spent minutes with the patient and/or on the patient floor today, greater than?50% of which was spent counseling/coordinating care. Reason for contiued inpatient stay Substantial Risk for: inability to function
[2021-10-16] MEDS: hydroCHLOROthiazide 25 MG TABLET PO (10:34)
[2021-10-16] MEDS: cloZAPine 25 MG TABLET 50 MG PO ×2 (10:34→19:41)
[2021-10-16] MEDS: Desmopressin Acetate 0.2 MG TABLET PO ×2 (10:35→19:41)
[2021-10-16] MEDS: Apixaban 5 MG TABLET PO ×2 (10:35→19:41)
[2021-10-16] MEDS: HaloperidoL 5 MG TABLET 10 MG PO ×2 (10:35→19:41)
[2021-10-16] MEDS: Benztropine Mesylate 0.5 MG TABLET 0.25 MG PO ×2 (10:35→19:40)
[2021-10-16] MEDS: Propranolol HCL 10 MG TABLET PO (10:36)
[2021-10-16] MEDS: clonazePAM 0.5 MG TABLET 0.25 MG PO (14:48)
[2021-10-16 18:00] VITALS: PULSE 96; RESP 19; TEMP 36.4; O2SAT 99
[2021-10-16] MEDS: Mirtazapine 30 MG TABLET PO (19:40)
[2021-10-16] MEDS: cloZAPine 100 MG TABLET 200 MG PO (19:41)
[2021-10-16] MEDS: Acetaminophen 325 MG TABLET 650 MG PO (19:52)
[2021-10-17 06:00] VITALS: BP 138/59; PULSE 100; TEMP 35.9; O2SAT 95
--- NOTE | 2021-10-17 07:53 | HO.PSYCHPN ---
Subjective Subjective Date of Service: 10/17/21 Reason For Visit: psychotic disorder Subjective Notes: Conditional Voluntary Interim History: Pt asleep most of the morning. She continues to report hearing voices of God, sometimes this voice is not positive. She appears distress by the voices. She denies SI/HI. She is on one to one for safety due to unsteady gait. At times pt observed yelling at voices. Per nursing, eating and sleeping well. Review of Systems Review of Systems No fever, no chest, no shortness of breath, she is confused . The review of system is otherwise limited due to the patient's mental state Yes Unobtainable due to mental condition Mental Status Exam Mental Status Exam Patient Appearance: Well Grooomed Patient Orientation: Person Level of Consciousness: Awake Patient Behavior: Cooperative and Passive Mood Description: Labile Affect Description: Constricted Patient Cognition Impaired: Yes Ability to Follow Directions: Fair Speech Pattern: Clear Diagnostics Vital Signs (24Hr): Vital Signs - 24 hr 10/18/21 20:22 Temperature 98.8 F Pulse Rate 90 Respiratory Rate 16 Blood Pressure 98/50 L Pulse Oximetry 98 BMI result Body Mass Index 24.3 Labs Results: 10/19/21 07:26 10/10/21 10:58 Labs: Laboratory Results - last 48 hr 10/19/21 07:26 WBC 6.7 RBC 4.28 Hgb 10.8 L Hct 34.0 L MCV 79.4 L MCH 25.2 L MCHC 31.8 RDW 14.6 Plt Count 160 MPV 10.3 Immature Gran % (Auto) 0.7 H Neut % (Auto) 51.2 Lymph % (Auto) 33.6 [place] % (Auto) 11.5 H Eos % (Auto) 2.1 Baso % (Auto) 0.9 Lymph # (Auto) 2.2 [place] # (Auto) 0.8 Eos # (Auto) 0.1 Baso # (Auto) 0.1 Abs Immat Gran (auto) 0.05 H Absolute Neuts (auto) 3.4 Absolute Nucleated RBC 0.000 Nucleated RBC % (auto) 0.0 Imaging Radiology Impressions: ITS Impressions Head CT 10/08/21 15:16 IMPRESSION: No acute intracranial pathology. Head CT 10/09/21 13:54 IMPRESSION: No acute intracranial pathology. Pelvic/Transvag US 10/13/21 09:24 IMPRESSION: Abnormally thickened endometrium for a postmenopausal patient measuring 0.9 cm. 3 x 2.7 x 3.7 cm mass in the posterior cervix. This may represent a fibroid. Slightly thickened trabeculated bladder wall. Medications Medications Current Medications Acetaminophen (Acetaminophen 325 Mg Tablet) 650 mg PO Q6H PRN PRN Reason: Headache/Pain Mild Scale (1-3) Last Admin: 10/16/21 19:52 Dose: 650 mg Documented by: Al Hydroxide/Mg Hydroxide (Magnesium Hydrox/Alum Hydrox 30 Ml Oral.Susp) 30 ml PO Q6H PRN PRN Reason: Heartburn/Nausea Apixaban (Apixaban 5 Mg Tablet) 5 mg PO BID [facility] Last Admin: 10/18/21 20:22 Dose: 5 mg Documented by: Benztropine Mesylate (Benztropine Mesylate 0.5 Mg Tablet) 0.25 mg PO BID [facility] Last Admin: 10/18/21 20:20 Dose: 0.25 mg Documented by: Clozapine (Clozapine 100 Mg Tablet) 200 mg PO BEDTIME [facility] Last Admin: 10/18/21 20:24 Dose: 200 mg Documented by: Clozapine (Clozapine 25 Mg Tablet) 50 mg PO BID [facility] Last Admin: 10/18/21 20:22 Dose: 50 mg Documented by: Desmopressin Acetate (Desmopressin Acetate 0.2 Mg Tablet) 0.2 mg PO BID [facility] Last Admin: 10/18/21 20:20 Dose: 0.2 mg Documented by: Haloperidol (Haloperidol 5 Mg Tablet) 10 mg PO BID [facility] Last Admin: 10/18/21 20:22 Dose: 10 mg Documented by: Hydrochlorothiazide (Hydrochlorothiazide 25 Mg Tablet) 25 mg PO DAILY [facility]; Protocol Last Admin: 10/18/21 09:59 Dose: 25 mg Documented by: Hydroxyzine HCl (Hydroxyzine Hcl 25 Mg Tablet) 25 mg PO BEDTIME PRN PRN Reason: Anxiety Magnesium Hydroxide (Milk Of Magnesia 30 Ml Oral.Susp) 30 ml PO DAILY PRN PRN Reason: Constipation Last Admin: 10/11/21 16:03 Dose: 30 ml Documented by: Mirtazapine (Mirtazapine 15 Mg Tablet) 15 mg PO BEDTIME [facility] Last Admin: 10/18/21 20:20 Dose: 15 mg Documented by: Potassium Chloride (Potassium Chloride Er 10 Meq Capsule.Er) 40 meq PO BID [facility] Last Admin: 10/18/21 20:22 Dose: 40 meq Documented by: Propranolol HCl (Propranolol Hcl 10 Mg Tablet) 10 mg PO DAILY [facility]; Protocol Last Admin: 10/18/21 09:58 Dose: 10 mg Documented by: Trazodone HCl (Trazodone Hcl 50 Mg Tablet) 50 mg PO BEDTIME PRN PRN Reason: Insomnia Last Admin: 10/18/21 22:28 Dose: 50 mg Documented by: Allergies Allergies Allergy/AdvReac Type Severity Reaction Status Date / Time No Known Allergies Allergy Unverified 05/01/20 19:42 [No Known Allergies*] Assessment & Plan Assessment & Plan (1) Schizophrenia, paranoid, chronic with acute exacerbation: Status: Acute Code(s): F20.0 - Paranoid schizophrenia (2) Hypertension: Status: Acute Code(s): I10 - Essential (primary) hypertension Plan 66-year-old female with Alzheimer's dementia, behavior disturbance, bipolar disorder, hyperparathyroidism, nephrogenic diabetes insipidus, vitamin-D deficiency, B12 deficiency, hypothyroidism, anxiety, history of femoral vein DVT in August of 2021. She is presently admitted to the psychiatric unit due to decompensated bipolar disorder/psychosis. Psychiatrically, we will continue Haldol 5 mg p.o. t.i.d. and clozapine. We are waiting for the clozapine levels in order to increase clozapine to target psychosis. At this moment we will start the titration of Clozaril with 25 mg p.o. b.i.d. Patient tolerating medication trial remains depressed and psychotic Pt depressed withdrawn devil/god telling her not to take meds. Recently she has vaginal bleeding. Plan 1. Keep clozapine up to 50 mg p.o. b.i.d. and keep the same dose at HS. 2. Ultrasound pelvic showed myomas . 3. [facility] [employer] consult to be done as an outpatient. 4. Keep Haldol 10 mg p.o. b.i.d. and reassess for EPS tomorrow after adding a low dose of Cogentin. 3/4 continue current medications. 3/5 continue current medications. I spent minutes with the patient and/or on the patient floor today, greater than?50% of which was spent counseling/coordinating care. Reason for contiued inpatient stay Substantial Risk for: inability to function
[2021-10-17 18:00] VITALS: BP 115/57; PULSE 78; RESP 16; TEMP 36.6; O2SAT 96
[2021-10-17] MEDS: cloZAPine 25 MG TABLET 50 MG PO (19:41)
[2021-10-17] MEDS: Benztropine Mesylate 0.5 MG TABLET 0.25 MG PO (19:41)
[2021-10-17] MEDS: HaloperidoL 5 MG TABLET 10 MG PO (19:41)
[2021-10-17] MEDS: cloZAPine 100 MG TABLET 200 MG PO (19:41)
[2021-10-17] MEDS: Desmopressin Acetate 0.2 MG TABLET PO (19:42)
[2021-10-17] MEDS: Mirtazapine 30 MG TABLET PO (19:42)
[2021-10-17] MEDS: Apixaban 5 MG TABLET PO (19:42)
--- NOTE | 2021-10-18 07:54 | P.PNPSI_ITS ---
Subjective Subjective Date of Service: 10/18/21 Reason For Visit: psychotic disorder Interim History: Pt again asleep most of the morning. She continues to report hearing voices of God, sometimes this voice is not positive. She appears distress by the voices. She denies SI/HI. She is on one to one for safety due to unsteady gait. At times pt observed yelling at voices. Per nursing, eating and sleeping well. Review of Systems Review of Systems No fever, no chest, no shortness of breath, she is confused . The review of system is otherwise limited due to the patient's mental state Yes Unobtainable due to mental condition Mental Status Exam Mental Status Exam Patient Appearance: Well Grooomed Patient Orientation: Person Level of Consciousness: Awake Patient Behavior: Cooperative and Passive Mood Description: Labile Affect Description: Constricted Patient Cognition Impaired: Yes Ability to Follow Directions: Fair Speech Pattern: Clear Diagnostics Vital Signs (24Hr): Vital Signs - 24 hr 10/18/21 20:22 Temperature 98.8 F Pulse Rate 90 Respiratory Rate 16 Blood Pressure 98/50 L Pulse Oximetry 98 BMI result Body Mass Index 24.3 Labs Results: 10/19/21 07:26 10/10/21 10:58 Labs: Laboratory Results - last 48 hr 10/19/21 07:26 WBC 6.7 RBC 4.28 Hgb 10.8 L Hct 34.0 L MCV 79.4 L MCH 25.2 L MCHC 31.8 RDW 14.6 Plt Count 160 MPV 10.3 Immature Gran % (Auto) 0.7 H Neut % (Auto) 51.2 Lymph % (Auto) 33.6 [place] % (Auto) 11.5 H Eos % (Auto) 2.1 Baso % (Auto) 0.9 Lymph # (Auto) 2.2 [place] # (Auto) 0.8 Eos # (Auto) 0.1 Baso # (Auto) 0.1 Abs Immat Gran (auto) 0.05 H Absolute Neuts (auto) 3.4 Absolute Nucleated RBC 0.000 Nucleated RBC % (auto) 0.0 Imaging Radiology Impressions: ITS Impressions Head CT 10/08/21 15:16 IMPRESSION: No acute intracranial pathology. Head CT 10/09/21 13:54 IMPRESSION: No acute intracranial pathology. Pelvic/Transvag US 10/13/21 09:24 IMPRESSION: Abnormally thickened endometrium for a postmenopausal patient measuring 0.9 cm. 3 x 2.7 x 3.7 cm mass in the posterior cervix. This may represent a fibroid. Slightly thickened trabeculated bladder wall. Medications Medications Current Medications Acetaminophen (Acetaminophen 325 Mg Tablet) 650 mg PO Q6H PRN PRN Reason: Headache/Pain Mild Scale (1-3) Last Admin: 10/16/21 19:52 Dose: 650 mg Documented by: Al Hydroxide/Mg Hydroxide (Magnesium Hydrox/Alum Hydrox 30 Ml Oral.Susp) 30 ml PO Q6H PRN PRN Reason: Heartburn/Nausea Apixaban (Apixaban 5 Mg Tablet) 5 mg PO BID [facility] Last Admin: 10/18/21 20:22 Dose: 5 mg Documented by: Benztropine Mesylate (Benztropine Mesylate 0.5 Mg Tablet) 0.25 mg PO BID [facility] Last Admin: 10/18/21 20:20 Dose: 0.25 mg Documented by: Clozapine (Clozapine 100 Mg Tablet) 200 mg PO BEDTIME [facility] Last Admin: 10/18/21 20:24 Dose: 200 mg Documented by: Clozapine (Clozapine 25 Mg Tablet) 50 mg PO BID [facility] Last Admin: 10/18/21 20:22 Dose: 50 mg Documented by: Desmopressin Acetate (Desmopressin Acetate 0.2 Mg Tablet) 0.2 mg PO BID [facility] Last Admin: 10/18/21 20:20 Dose: 0.2 mg Documented by: Haloperidol (Haloperidol 5 Mg Tablet) 10 mg PO BID [facility] Last Admin: 10/18/21 20:22 Dose: 10 mg Documented by: Hydrochlorothiazide (Hydrochlorothiazide 25 Mg Tablet) 25 mg PO DAILY [facility]; Protocol Last Admin: 10/18/21 09:59 Dose: 25 mg Documented by: Hydroxyzine HCl (Hydroxyzine Hcl 25 Mg Tablet) 25 mg PO BEDTIME PRN PRN Reason: Anxiety Magnesium Hydroxide (Milk Of Magnesia 30 Ml Oral.Susp) 30 ml PO DAILY PRN PRN Reason: Constipation Last Admin: 10/11/21 16:03 Dose: 30 ml Documented by: Mirtazapine (Mirtazapine 15 Mg Tablet) 15 mg PO BEDTIME [facility] Last Admin: 10/18/21 20:20 Dose: 15 mg Documented by: Potassium Chloride (Potassium Chloride Er 10 Meq Capsule.Er) 40 meq PO BID [facility] Last Admin: 10/18/21 20:22 Dose: 40 meq Documented by: Propranolol HCl (Propranolol Hcl 10 Mg Tablet) 10 mg PO DAILY [facility]; Protocol Last Admin: 10/18/21 09:58 Dose: 10 mg Documented by: Trazodone HCl (Trazodone Hcl 50 Mg Tablet) 50 mg PO BEDTIME PRN PRN Reason: Insomnia Last Admin: 10/18/21 22:28 Dose: 50 mg Documented by: Allergies Allergies Allergy/AdvReac Type Severity Reaction Status Date / Time No Known Allergies Allergy Unverified 05/01/20 19:42 [No Known Allergies*] Assessment & Plan Assessment & Plan (1) Schizophrenia, paranoid, chronic with acute exacerbation: Status: Acute Code(s): F20.0 - Paranoid schizophrenia (2) Hypertension: Status: Acute Code(s): I10 - Essential (primary) hypertension Plan 66-year-old female with Alzheimer's dementia, behavior disturbance, bipolar disorder, hyperparathyroidism, nephrogenic diabetes insipidus, vitamin-D deficiency, B12 deficiency, hypothyroidism, anxiety, history of femoral vein DVT in August of 2021. She is presently admitted to the psychiatric unit due to decompensated bipolar disorder/psychosis. Psychiatrically, we will continue Haldol 5 mg p.o. t.i.d. and clozapine. We are waiting for the clozapine levels in order to increase clozapine to target psychosis. At this moment we will start the titration of Clozaril with 25 mg p.o. b.i.d. Patient tolerating medication trial remains depressed and psychotic Pt depressed withdrawn devil/god telling her not to take meds. Recently she has vaginal bleeding. Plan 1. Keep clozapine up to 50 mg p.o. b.i.d. and keep the same dose at HS. 2. Ultrasound pelvic showed myomas . 3. [employer] consult to be done as an outpatient. 4. Keep Haldol 10 mg p.o. b.i.d. and reassess for EPS tomorrow after adding a low dose of Cogentin. 3/4 continue current medications. 3/5 continue current medications. 3/6 continue current medications. I spent minutes with the patient and/or on the patient floor today, greater than?50% of which was spent counseling/coordinating care. Reason for contiued inpatient stay Substantial Risk for: inability to function
[2021-10-18] MEDS: HaloperidoL 5 MG TABLET 10 MG PO ×2 (09:58→20:22)
[2021-10-18] MEDS: Propranolol HCL 10 MG TABLET PO (09:58)
[2021-10-18] MEDS: cloZAPine 25 MG TABLET 50 MG PO ×2 (09:59→20:22)
[2021-10-18] MEDS: Apixaban 5 MG TABLET PO ×2 (09:59→20:22)
[2021-10-18] MEDS: Benztropine Mesylate 0.5 MG TABLET 0.25 MG PO ×2 (09:59→20:20)
[2021-10-18] MEDS: hydroCHLOROthiazide 25 MG TABLET PO (09:59)
[2021-10-18] MEDS: Desmopressin Acetate 0.2 MG TABLET PO ×2 (09:59→20:20)
[2021-10-18] MEDS: Mirtazapine 15 MG TABLET PO (20:20)
[2021-10-18 20:22] VITALS: BP 98/50; PULSE 90; RESP 16; TEMP 37.1; O2SAT 98
[2021-10-18] MEDS: cloZAPine 100 MG TABLET 200 MG PO (20:24)
[2021-10-18] MEDS: traZODone HCL 50 MG TABLET PO (22:28)
[2021-10-19 07:30] LABS: MANUAL DIFF FLAG NO
[2021-10-19 07:34] LABS: Basophils Absolute Auto 0.1 X10*3/uL (0.0-0.2); Basophils Percent Auto 0.9 % (0-2); Eosinophils Absolute Auto 0.1 X10*3/uL (0.0-0.4); Eosinophils Percent Auto 2.1 % (0-4); Hemoglobin 10.8 g/dl (12.0-16.0); Imm Gran Abs Auto 0.05 X10*3/uL (0.00-0.03); Imm Gran Pct Auto 0.7 % (0.0-0.4); Lymphocytes Absolute Auto 2.2 X10*3/uL (1.2-4.9); Lymphocytes Percent Auto 33.6 % (20-40); Mean Corpuscular HGB Conc 31.8 g/dl (31.0-35.0); Mean Corpuscular Hemoglobin 25.2 pg (27.0-33.0); Mean Corpuscular Volume 79.4 fL (80.0-98.0); Mean Platelet Volume 10.3 fL (9.4-12.3); Monocytes Absolute Auto 0.8 X10*3/uL (0.1-1.2); Monocytes Percent Auto 11.5 % (2-11); Neutrophils Absolute Auto 3.4 x10*3/uL (2.0-8.3); Neutrophils Percent Auto 51.2 % (45-73); Platelet Count 160 X10*3/uL (160-400); Red Blood Count 4.28 X10*6/uL (4.20-5.50); Red Cell Distribution Width 14.6 % (11.0-16.0); White Blood Count 6.7 X10*3/uL (4.8-10.8)
[2021-10-19 07:55] VITALS: BP 106/54; PULSE 91; RESP 17; TEMP 37.1; O2SAT 96
[2021-10-19] MEDS: Propranolol HCL 10 MG TABLET PO (09:21)
[2021-10-19] MEDS: Desmopressin Acetate 0.2 MG TABLET PO (09:21)
[2021-10-19] MEDS: Benztropine Mesylate 0.5 MG TABLET 0.25 MG PO (09:21)
[2021-10-19] MEDS: Apixaban 5 MG TABLET PO (09:21)
[2021-10-19] MEDS: cloZAPine 25 MG TABLET 50 MG PO (09:21)
[2021-10-19] MEDS: hydroCHLOROthiazide 25 MG TABLET PO (09:22)
[2021-10-19] MEDS: HaloperidoL 5 MG TABLET 10 MG PO (09:50)
--- NOTE | 2021-10-19 12:35 | HO.PSYCHPN ---
Subjective Subjective Date of Service: 10/19/21 Reason For Visit: psychotic disorder Subjective Notes: Conditional Voluntary Interim History: Pt ambulating with walker and 1:1 due to lack of safety awareness. Pt states I'm stupid. Pt reports male voice telling her she is not worth it. She reports hearing voices of God, she states at times this voices tells her derogatory things, other times not as much. She denies SI/HI. She denies any pain or any physical concern. Per nursing, pt has been sleeping and eating well. no behavioral concerns. Medication Compliance: Yes Side effects from medications: No Review of Systems Review of Systems No fever, no chest, no shortness of breath, she is confused . The review of system is otherwise limited due to the patient's mental state Yes Unobtainable due to mental condition Mental Status Exam Mental Status Exam Patient Appearance: Well Grooomed Patient Orientation: Person Level of Consciousness: Awake Patient Behavior: Cooperative and Passive Mood Description: Labile Affect Description: Constricted Patient Cognition Impaired: Yes Ability to Follow Directions: Fair Speech Pattern: Clear Diagnostics Vital Signs (24Hr): Vital Signs - 24 hr 10/19/21 07:55 10/19/21 18:00 Temperature 98.7 F 98.3 F Pulse Rate 91 87 Respiratory Rate 17 18 Blood Pressure 106/54 L 111/58 L Pulse Oximetry 96 96 BMI result Body Mass Index 24.3 Labs Results: 10/20/21 07:21 10/10/21 10:58 Labs: Laboratory Results - last 48 hr 10/19/21 10/20/21 10/20/21 07:26 07:00 07:21 WBC 6.7 5.8 RBC 4.28 4.45 Hgb 10.8 L 11.1 L Hct 34.0 L 35.2 L MCV 79.4 L 79.1 L MCH 25.2 L 24.9 L MCHC 31.8 31.5 RDW 14.6 14.7 Plt Count 160 173 MPV 10.3 10.4 Immature Gran % (Auto) 0.7 H 1.0 H Neut % (Auto) 51.2 56.2 Lymph % (Auto) 33.6 31.7 [place] % (Auto) 11.5 H 10.2 Eos % (Auto) 2.1 0.2 Baso % (Auto) 0.9 0.7 Lymph # (Auto) 2.2 1.8 [place] # (Auto) 0.8 0.6 Eos # (Auto) 0.1 0.0 Baso # (Auto) 0.1 0.0 Abs Immat Gran (auto) 0.05 H 0.06 H Absolute Neuts (auto) 3.4 3.3 Absolute Nucleated RBC 0.000 0.000 Nucleated RBC % (auto) 0.0 0.0 POC Glucose 106 Imaging Radiology Impressions: ITS Impressions Head CT 10/08/21 15:16 IMPRESSION: No acute intracranial pathology. Head CT 10/09/21 13:54 IMPRESSION: No acute intracranial pathology. Pelvic/Transvag US 10/13/21 09:24 IMPRESSION: Abnormally thickened endometrium for a postmenopausal patient measuring 0.9 cm. 3 x 2.7 x 3.7 cm mass in the posterior cervix. This may represent a fibroid. Slightly thickened trabeculated bladder wall. Medications Medications Current Medications Acetaminophen (Acetaminophen 325 Mg Tablet) 650 mg PO Q6H PRN PRN Reason: Headache/Pain Mild Scale (1-3) Last Admin: 10/16/21 19:52 Dose: 650 mg Documented by: Al Hydroxide/Mg Hydroxide (Magnesium Hydrox/Alum Hydrox 30 Ml Oral.Susp) 30 ml PO Q6H PRN PRN Reason: Heartburn/Nausea Apixaban (Apixaban 5 Mg Tablet) 5 mg PO BID [facility] Last Admin: 10/20/21 01:11 Dose: Not Given Documented by: Benztropine Mesylate (Benztropine Mesylate 0.5 Mg Tablet) 0.25 mg PO BID [facility] Last Admin: 10/20/21 01:11 Dose: Not Given Documented by: Clozapine (Clozapine 100 Mg Tablet) 200 mg PO BEDTIME [facility] Last Admin: 10/20/21 01:11 Dose: Not Given Documented by: Clozapine (Clozapine 25 Mg Tablet) 50 mg PO BID [facility] Last Admin: 10/20/21 01:11 Dose: Not Given Documented by: Desmopressin Acetate (Desmopressin Acetate 0.2 Mg Tablet) 0.2 mg PO BID [facility] Last Admin: 10/20/21 01:12 Dose: Not Given Documented by: Haloperidol (Haloperidol 5 Mg Tablet) 10 mg PO BID [facility] Last Admin: 10/20/21 01:12 Dose: Not Given Documented by: Hydrochlorothiazide (Hydrochlorothiazide 25 Mg Tablet) 25 mg PO DAILY [facility]; Protocol Last Admin: 10/19/21 09:22 Dose: 25 mg Documented by: Hydroxyzine HCl (Hydroxyzine Hcl 25 Mg Tablet) 25 mg PO BEDTIME PRN PRN Reason: Anxiety Magnesium Hydroxide (Milk Of Magnesia 30 Ml Oral.Susp) 30 ml PO DAILY PRN PRN Reason: Constipation Last Admin: 10/11/21 16:03 Dose: 30 ml Documented by: Mirtazapine (Mirtazapine 15 Mg Tablet) 15 mg PO BEDTIME [facility] Last Admin: 10/20/21 01:12 Dose: Not Given Documented by: Potassium Chloride (Potassium Chloride Er 10 Meq Capsule.Er) 40 meq PO BID [facility] Last Admin: 10/20/21 01:12 Dose: Not Given Documented by: Propranolol HCl (Propranolol Hcl 10 Mg Tablet) 10 mg PO DAILY [facility]; Protocol Last Admin: 10/19/21 09:21 Dose: 10 mg Documented by: Trazodone HCl (Trazodone Hcl 50 Mg Tablet) 50 mg PO BEDTIME PRN PRN Reason: Insomnia Last Admin: 10/18/21 22:28 Dose: 50 mg Documented by: Allergies Allergies Allergy/AdvReac Type Severity Reaction Status Date / Time No Known Allergies Allergy Unverified 05/01/20 19:42 [No Known Allergies*] Assessment & Plan Assessment & Plan (1) Schizophrenia, paranoid, chronic with acute exacerbation: Status: Acute Code(s): F20.0 - Paranoid schizophrenia (2) Hypertension: Status: Acute Code(s): I10 - Essential (primary) hypertension Plan 66-year-old female with Alzheimer's dementia, behavior disturbance, bipolar disorder, hyperparathyroidism, nephrogenic diabetes insipidus, vitamin-D deficiency, B12 deficiency, hypothyroidism, anxiety, history of femoral vein DVT in August of 2021. She is presently admitted to the psychiatric unit due to decompensated bipolar disorder/psychosis. Psychiatrically, we will continue Haldol 5 mg p.o. t.i.d. and clozapine. We are waiting for the clozapine levels in order to increase clozapine to target psychosis. At this moment we will start the titration of Clozaril with 25 mg p.o. b.i.d. Patient tolerating medication trial remains depressed and psychotic Pt depressed withdrawn devil/god telling her not to take meds. Recently she has vaginal bleeding. Plan 1. Keep clozapine up to 50 mg p.o. b.i.d. and keep the same dose at HS. 2. Ultrasound pelvic showed myomas . 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 4. Keep Haldol 10 mg p.o. b.i.d. and reassess for EPS tomorrow after adding a low dose of Cogentin. 3/4 continue current medications. 3/5 continue current medications. /6 continue current medications. 10/19: continue current medications. I spent minutes with the patient and/or on the patient floor today, greater than?50% of which was spent counseling/coordinating care. Reason for contiued inpatient stay Substantial Risk for: inability to function
[2021-10-19 18:00] VITALS: BP 111/58; PULSE 87; RESP 18; TEMP 36.8; O2SAT 96
[2021-10-20 07:05] LABS: Glucose, Whole Blood 106 mg/dL (60-115)
[2021-10-20 07:26] LABS: MANUAL DIFF FLAG NO
[2021-10-20 07:31] LABS: Basophils Percent Auto 0.7 % (0-2); Eosinophils Percent Auto 0.2 % (0-4); Hematocrit 35.2 % (37.0-47.0); Hemoglobin 11.1 g/dl (12.0-16.0); Imm Gran Abs Auto 0.06 X10*3/uL (0.00-0.03); Lymphocytes Absolute Auto 1.8 X10*3/uL (1.2-4.9); Lymphocytes Percent Auto 31.7 % (20-40); Mean Corpuscular HGB Conc 31.5 g/dl (31.0-35.0); Mean Corpuscular Hemoglobin 24.9 pg (27.0-33.0); Mean Corpuscular Volume 79.1 fL (80.0-98.0); Mean Platelet Volume 10.4 fL (9.4-12.3); Monocytes Absolute Auto 0.6 X10*3/uL (0.1-1.2); Monocytes Percent Auto 10.2 % (2-11); Neutrophils Absolute Auto 3.3 x10*3/uL (2.0-8.3); Neutrophils Percent Auto 56.2 % (45-73); Platelet Count 173 X10*3/uL (160-400); Red Blood Count 4.45 X10*6/uL (4.20-5.50); Red Cell Distribution Width 14.7 % (11.0-16.0); White Blood Count 5.8 X10*3/uL (4.8-10.8)
--- NOTE | 2021-10-20 07:37 | PC.NURSE ---
Pt was non responsive this morning after unarousable all shift. Vital signs were within normal limits at the beginning of the shift. B.P. systolic was lower in the morning and normal for pt. retail shift supervisor was called and rapid response notified. IV line was started in right hand. Cranial CS was ordered. Dr. Sarah Pascual was notified. And Daughter Elizabeth. Pt at that point woke and asked about breakfast and quickly became extremely hard to arouse.
--- NOTE | 2021-10-20 07:49 | PM.EVENT ---
Event Note Date of Service: 10/20/21 Event Note: Rapid response called for unresponsiveness. Patient apparently was very sleepy at 19:00 night prior to rapid response, at around 07:00 patient was minimally arousable, she was protecting her face, no convulsions, vital signs stable, point of care normal. Initially plan was to transfer to medical floor, however, patient then woke up, started talking, took out her dentures. I then went back to see patient and she was in a similar state to when previously seen at 07:00. High suspicion that this is behavioral, so will hold off on transfer for now. Will check CT head, labs.
[2021-10-20 07:55] LABS: Troponin-I High Sensitivity 15.8 ng/L (<3.5-17.0)
[2021-10-20 08:10] LABS: Alanine Aminotransferase 14 U/L (0-31); Albumin Level 3.7 g/dL (3.5-5.0); Alkaline Phosphatase 82 U/L (39-117); Anion Gap 11 (12-20); Aspartate Amino Transferase 14 U/L (5-31); Bilirubin Direct < 0.2 mg/dL (0.0-0.5); Bilirubin Total 0.3 mg/dL (0.0-1.0); Blood Urea Nitrogen 15 mg/dL (9-16); Calcium 10.4 mg/dL (8.4-10.2); Carbon Dioxide 22 mmol/L (22-29); Chloride 117 mmol/L (96-108); Creatinine Clr Calc Pharmacy 58.4; Estimated Glomerular Filt Rate > 60; Glucose Random 106 mg/dL (60-115); Potassium 3.9 mmol/L (3.3-5.1); Sodium 144 mmol/L (135-145); Total Protein 5.6 g/dL (6.5-8.0)
[2021-10-20 08:55] VITALS: BP 121/64; PULSE 91; RESP 16; TEMP 36.6; O2SAT 97
[2021-10-20] MEDS: Benztropine Mesylate 0.5 MG TABLET 0.25 MG PO ×2 (09:26→21:52)
[2021-10-20] MEDS: Apixaban 5 MG TABLET PO ×2 (09:26→21:50)
[2021-10-20] MEDS: cloZAPine 25 MG TABLET 50 MG PO ×2 (09:26→21:51)
[2021-10-20] MEDS: Desmopressin Acetate 0.2 MG TABLET PO ×2 (09:26→21:53)
[2021-10-20] MEDS: HaloperidoL 5 MG TABLET 10 MG PO ×2 (09:26→21:51)
[2021-10-20] MEDS: hydroCHLOROthiazide 25 MG TABLET PO (09:28)
[2021-10-20 09:36] VITALS: BP 105/72; PULSE 91; RESP 28; TEMP 36.4; O2SAT 95
--- NOTE | 2021-10-20 09:41 | PC.NURSE ---
Rapid Response was not highlighted to choose for documentation for this patient. Rapid Response called by RN Lis Martinez at 0655. Patient lying in bed not arousable, eyes shut, not responding to any commands. Flaccid extremeties. Md at bed side assessing the patient. Sternal rub done no response. Vitals taken at 0700 pulse 92, blood pressure 108/55 oxygen saturation 96% on room air. Point of care taken 106. Staff reported patient was sleeping when they came in a 7pm. Staff reports the patient usually wakes up late in the morning. This patient had a one to one sitter all night. 0705 vitals taken temperature 97.5 pulse 91, respirations 28, blood pressure 105/72, oxygen saturations 95% on room air. IV placed a 22 pam prn adapter. Doctor wants the patient to go to telemetry, on a heart monitor, labs, and cat scan of the brain to rule out stroke. At 0745 patient woke up and took out her teeth and handed them to me, I asked her what she eats for breakfast she said eggs. I asked her if she was hungry she answered no. I text the doctor to let him know she was awake and talking, he came to see her. I walked to the desk to tell the nurse she woke up. When myself, the doctor, and staff entered her room she was sleeping eyes shut and would not open her eyes. Doctor said patient could be monitored in the [facility] if she remains stable. Ending time was 0750. Staff report the patient is up awake doing her morning care, talking and answering questions, back to base line [id number]. Cat scan results not available.
--- NOTE | 2021-10-20 11:02 | PC.NURSE ---
Patient returned for CT scan at approximately 0845. Patient was sitting up on side of bed. Alert and oriented. Answering questions appropriately. Compliant with morning meds. Patient then went into BR with 1:1 observer. Observer states she was moving walker and patient pulled out IV. TW was called to room and applied dressing to R wrist. When asked why she took it out Patient repllied, I didn't think I needed it. Vital signs upon return from CT: T 97.8, P 91, o2 97%, R 16, BP 121/64. Will continue to monitor throughout shift.
[2021-10-20] MEDS: LORazepam 0.5 MG TABLET PO (12:58)
--- NOTE | 2021-10-20 13:29 | HO.PSYCHPN ---
Subjective Subjective Date of Service: 10/20/21 Reason For Visit: psychotic disorder Subjective Notes: Conditional Voluntary Interim History: Pt reports hearing voices of God. She continues with one to one. She is visible in unit, not social with peers. She describes mood as depressed. She reports voices telling her not to take medications at times. Medication Compliance: Yes Side effects from medications: No Review of Systems Review of Systems No fever, no chest, no shortness of breath, she is confused . The review of system is otherwise limited due to the patient's mental state Yes Unobtainable due to mental condition Mental Status Exam Mental Status Exam Patient Appearance: Well Grooomed Patient Orientation: Person Level of Consciousness: Awake Patient Behavior: Cooperative and Passive Mood Description: Labile Affect Description: Constricted Patient Cognition Impaired: Yes Ability to Follow Directions: Fair Speech Pattern: Clear Diagnostics Vital Signs (24Hr): Vital Signs - 24 hr 10/22/21 16:38 10/22/21 18:00 10/22/21 21:53 Temperature 98.6 F Pulse Rate 115 H 100 100 Respiratory Rate 20 16 16 Blood Pressure 98/66 92/57 L 99/54 L Pulse Oximetry 98 97 97 BMI result Body Mass Index 25.3 Labs Results: 10/20/21 07:21 10/20/21 07:21 Imaging Radiology Impressions: ITS Impressions Head CT 10/08/21 15:16 IMPRESSION: No acute intracranial pathology. Head CT 10/09/21 13:54 IMPRESSION: No acute intracranial pathology. Pelvic/Transvag US 10/13/21 09:24 IMPRESSION: Abnormally thickened endometrium for a postmenopausal patient measuring 0.9 cm. 3 x 2.7 x 3.7 cm mass in the posterior cervix. This may represent a fibroid. Slightly thickened trabeculated bladder wall. Head CT 10/20/21 08:18 IMPRESSION: No acute intracranial pathology. This critical result was discussed with Dr. Chu at 8:30 hours on 10/20/2021. It was ascertained that the content and urgency of the report was understood at the time of direct communication. Medications Medications Current Medications Acetaminophen (Acetaminophen 325 Mg Tablet) 650 mg PO Q6H PRN PRN Reason: Headache/Pain Mild Scale (1-3) Last Admin: 10/16/21 19:52 Dose: 650 mg Documented by: Al Hydroxide/Mg Hydroxide (Magnesium Hydrox/Alum Hydrox 30 Ml Oral.Susp) 30 ml PO Q6H PRN PRN Reason: Heartburn/Nausea Apixaban (Apixaban 5 Mg Tablet) 5 mg PO BID [facility] Last Admin: 10/23/21 10:27 Dose: Not Given Documented by: Benztropine Mesylate (Benztropine Mesylate 0.5 Mg Tablet) 0.5 mg PO BID [facility] Last Admin: 10/23/21 10:27 Dose: Not Given Documented by: Clozapine (Clozapine 100 Mg Tablet) 200 mg PO BEDTIME [facility] Last Admin: 10/22/21 20:05 Dose: 200 mg Documented by: Clozapine (Clozapine 25 Mg Tablet) 50 mg PO BID [facility] Last Admin: 10/23/21 10:27 Dose: Not Given Documented by: Desmopressin Acetate (Desmopressin Acetate 0.2 Mg Tablet) 0.2 mg PO BID [facility] Last Admin: 10/23/21 10:27 Dose: Not Given Documented by: Haloperidol (Haloperidol 5 Mg Tablet) 5 mg PO BID [facility] Last Admin: 10/23/21 10:28 Dose: Not Given Documented by: Hydrochlorothiazide (Hydrochlorothiazide 25 Mg Tablet) 25 mg PO DAILY [facility]; Protocol Last Admin: 10/23/21 10:28 Dose: Not Given Documented by: Hydroxyzine HCl (Hydroxyzine Hcl 25 Mg Tablet) 25 mg PO BEDTIME PRN PRN Reason: Anxiety Lorazepam (Lorazepam 0.5 Mg Tablet) 0.5 mg PO Q8H PRN PRN Reason: severe anxiety/restlessness Last Admin: 10/22/21 20:05 Dose: 0.5 mg Documented by: Magnesium Hydroxide (Milk Of Magnesia 30 Ml Oral.Susp) 30 ml PO DAILY PRN PRN Reason: Constipation Last Admin: 10/11/21 16:03 Dose: 30 ml Documented by: Mirtazapine (Mirtazapine 15 Mg Tablet) 15 mg PO BEDTIME [facility] Last Admin: 10/22/21 20:05 Dose: 15 mg Documented by: Potassium Chloride (Potassium Chloride Er 10 Meq Capsule.Er) 40 meq PO BID [facility] Last Admin: 10/23/21 10:28 Dose: Not Given Documented by: Trazodone HCl (Trazodone Hcl 50 Mg Tablet) 50 mg PO BEDTIME PRN PRN Reason: Insomnia Last Admin: 10/18/21 22:28 Dose: 50 mg Documented by: Allergies Allergies Allergy/AdvReac Type Severity Reaction Status Date / Time No Known Allergies Allergy Unverified 05/01/20 19:42 [No Known Allergies*] Assessment & Plan Assessment & Plan (1) Schizophrenia, paranoid, chronic with acute exacerbation: Status: Acute Code(s): F20.0 - Paranoid schizophrenia (2) Hypertension: Status: Acute Code(s): I10 - Essential (primary) hypertension Plan 66-year-old female with Alzheimer's dementia, behavior disturbance, bipolar disorder, hyperparathyroidism, nephrogenic diabetes insipidus, vitamin-D deficiency, B12 deficiency, hypothyroidism, anxiety, history of femoral vein DVT in August of 2021. She is presently admitted to the psychiatric unit due to decompensated bipolar disorder/psychosis. Psychiatrically, we will continue Haldol 5 mg p.o. t.i.d. and clozapine. We are waiting for the clozapine levels in order to increase clozapine to target psychosis. At this moment we will start the titration of Clozaril with 25 mg p.o. b.i.d. Patient tolerating medication trial remains depressed and psychotic Pt depressed withdrawn devil/god telling her not to take meds. Recently she has vaginal bleeding. Plan 1. Keep clozapine up to 50 mg p.o. b.i.d. and keep the same dose at HS. 2. Ultrasound pelvic showed myomas . 3. 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 4. Keep Haldol 10 mg p.o. b.i.d. and reassess for EPS tomorrow after adding a low dose of Cogentin. 3/4 continue current medications. 3/5 continue current medications. 3/6 continue current medications. 37: continue current medications. 8: decrease haldol to 5mg PO BID, added cogentin due to more severe bilat action tremors I spent minutes with the patient and/or on the patient floor today, greater than?50% of which was spent counseling/coordinating care. Reason for contiued inpatient stay Substantial Risk for: inability to function
--- NOTE | 2021-10-20 13:37 | PC.NURSE ---
Daughter/HCP Elizabeth updated 7:40 am about pt. condition and pending tests. Updated again 1:30 PM with negative test results and to inform her pt is walking and talking per baseline. Daughter said she suspected there might have been a behavioral component to episode.
--- NOTE | 2021-10-20 18:06 | PC.NURSE ---
At approximately 1730 while moving from dining table to tv area with 1:1 within arms reach patient let go of walker and lowered herself to the floor. Patient stated she did this purposely but could not state the reason she did this. Patient was helped up and continued to her seat in tv area. Patient was observed walking with walker with a steady gait later in the shift. Will continue to monitor for safety.
[2021-10-20 19:30] VITALS: BP 100/60; PULSE 94; RESP 17; TEMP 36.5; O2SAT 97
[2021-10-20] MEDS: cloZAPine 100 MG TABLET 200 MG PO (21:51)
[2021-10-20] MEDS: Mirtazapine 15 MG TABLET PO (21:54)
[2021-10-21 08:35] VITALS: BP 106/55; PULSE 92; RESP 12; TEMP 36.6; O2SAT 92
[2021-10-21] MEDS: HaloperidoL 5 MG TABLET 10 MG PO (09:08)
[2021-10-21] MEDS: Benztropine Mesylate 0.5 MG TABLET 0.25 MG PO (09:08)
[2021-10-21] MEDS: hydroCHLOROthiazide 25 MG TABLET PO (09:08)
[2021-10-21] MEDS: cloZAPine 25 MG TABLET 50 MG PO ×2 (09:08→20:43)
[2021-10-21] MEDS: Apixaban 5 MG TABLET PO (09:09)
[2021-10-21] MEDS: Desmopressin Acetate 0.2 MG TABLET PO ×2 (09:09→20:39)
[2021-10-21 09:36] VITALS: BP 106/55; PULSE 92; O2SAT 92
[2021-10-21] MEDS: Benztropine Mesylate 0.5 MG TABLET PO (11:38)
--- NOTE | 2021-10-21 13:22 | P.PNPSI_ITS ---
Subjective Subjective Date of Service: 10/20/21 Reason For Visit: psychotic disorder Subjective Notes: Conditional Voluntary Interim History: Pt reports hearing voices of God. She reports these are negative voices. She denies CAH. She denies SI/HI. She reports sleeping well. Per nursing, somnolent this morning, difficult to waken up. BUt later talking. She is taking medications. Noted action tremors, more prominent after increase in haldol. Medication Compliance: Yes Review of Systems Review of Systems No fever, no chest, no shortness of breath, she is confused . The review of system is otherwise limited due to the patient's mental state Yes Unobtainable due to mental condition Mental Status Exam Mental Status Exam Patient Appearance: Well Grooomed Patient Orientation: Person Level of Consciousness: Awake Patient Behavior: Cooperative and Passive Mood Description: Labile Affect Description: Constricted Patient Cognition Impaired: Yes Ability to Follow Directions: Fair Speech Pattern: Clear Diagnostics Vital Signs (24Hr): Vital Signs - 24 hr 10/22/21 16:38 10/22/21 18:00 10/22/21 21:53 Temperature 98.6 F Pulse Rate 115 H 100 100 Respiratory Rate 20 16 16 Blood Pressure 98/66 92/57 L 99/54 L Pulse Oximetry 98 97 97 BMI result Body Mass Index 25.3 Labs Results: 10/20/21 07:21 10/20/21 07:21 Imaging Radiology Impressions: ITS Impressions Head CT 10/08/21 15:16 IMPRESSION: No acute intracranial pathology. Head CT 10/09/21 13:54 IMPRESSION: No acute intracranial pathology. Pelvic/Transvag US 10/13/21 09:24 IMPRESSION: Abnormally thickened endometrium for a postmenopausal patient measuring 0.9 cm. 3 x 2.7 x 3.7 cm mass in the posterior cervix. This may represent a fibroid. Slightly thickened trabeculated bladder wall. Head CT 10/20/21 08:18 IMPRESSION: No acute intracranial pathology. This critical result was discussed with Dr. Chu at 8:30 hours on 10/20/2021. It was ascertained that the content and urgency of the report was understood at the time of direct communication. Medications Medications Current Medications Acetaminophen (Acetaminophen 325 Mg Tablet) 650 mg PO Q6H PRN PRN Reason: Headache/Pain Mild Scale (1-3) Last Admin: 10/16/21 19:52 Dose: 650 mg Documented by: Al Hydroxide/Mg Hydroxide (Magnesium Hydrox/Alum Hydrox 30 Ml Oral.Susp) 30 ml PO Q6H PRN PRN Reason: Heartburn/Nausea Apixaban (Apixaban 5 Mg Tablet) 5 mg PO BID [facility] Last Admin: 10/23/21 10:27 Dose: Not Given Documented by: Benztropine Mesylate (Benztropine Mesylate 0.5 Mg Tablet) 0.5 mg PO BID [facility] Last Admin: 10/23/21 10:27 Dose: Not Given Documented by: Clozapine (Clozapine 100 Mg Tablet) 200 mg PO BEDTIME [facility] Last Admin: 10/22/21 20:05 Dose: 200 mg Documented by: Clozapine (Clozapine 25 Mg Tablet) 50 mg PO BID [facility] Last Admin: 10/23/21 10:27 Dose: Not Given Documented by: Desmopressin Acetate (Desmopressin Acetate 0.2 Mg Tablet) 0.2 mg PO BID [facility] Last Admin: 10/23/21 10:27 Dose: Not Given Documented by: Haloperidol (Haloperidol 5 Mg Tablet) 5 mg PO BID [facility] Last Admin: 10/23/21 10:28 Dose: Not Given Documented by: Hydrochlorothiazide (Hydrochlorothiazide 25 Mg Tablet) 25 mg PO DAILY [facility]; Protocol Last Admin: 10/23/21 10:28 Dose: Not Given Documented by: Hydroxyzine HCl (Hydroxyzine Hcl 25 Mg Tablet) 25 mg PO BEDTIME PRN PRN Reason: Anxiety Lorazepam (Lorazepam 0.5 Mg Tablet) 0.5 mg PO Q8H PRN PRN Reason: severe anxiety/restlessness Last Admin: 10/22/21 20:05 Dose: 0.5 mg Documented by: Magnesium Hydroxide (Milk Of Magnesia 30 Ml Oral.Susp) 30 ml PO DAILY PRN PRN Reason: Constipation Last Admin: 10/11/21 16:03 Dose: 30 ml Documented by: Mirtazapine (Mirtazapine 15 Mg Tablet) 15 mg PO BEDTIME [facility] Last Admin: 10/22/21 20:05 Dose: 15 mg Documented by: Potassium Chloride (Potassium Chloride Er 10 Meq Capsule.Er) 40 meq PO BID [facility] Last Admin: 10/23/21 10:28 Dose: Not Given Documented by: Trazodone HCl (Trazodone Hcl 50 Mg Tablet) 50 mg PO BEDTIME PRN PRN Reason: Insomnia Last Admin: 10/18/21 22:28 Dose: 50 mg Documented by: Allergies Allergies Allergy/AdvReac Type Severity Reaction Status Date / Time No Known Allergies Allergy Unverified 05/01/20 19:42 [No Known Allergies*] Assessment & Plan Assessment & Plan (1) Schizophrenia, paranoid, chronic with acute exacerbation: Status: Acute Code(s): F20.0 - Paranoid schizophrenia (2) Hypertension: Status: Acute Code(s): I10 - Essential (primary) hypertension Plan 66-year-old female with Alzheimer's dementia, behavior disturbance, bipolar disorder, hyperparathyroidism, nephrogenic diabetes insipidus, vitamin-D deficiency, B12 deficiency, hypothyroidism, anxiety, history of femoral vein DVT in August of 2021. She is presently admitted to the psychiatric unit due to decompensated bipolar disorder/psychosis. Psychiatrically, we will continue Haldol 5 mg p.o. t.i.d. and clozapine. We are waiting for the clozapine levels in order to increase clozapine to target psychosis. At this moment we will start the titration of Clozaril with 25 mg p.o. b.i.d. Patient tolerating medication trial remains depressed and psychotic Pt depressed withdrawn devil/god telling her not to take meds. Recently she has vaginal bleeding. Plan 1. Keep clozapine up to 50 mg p.o. b.i.d. and keep the same dose at HS. 2. Ultrasound pelvic showed myomas . 3. 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 4. Keep Haldol 10 mg p.o. b.i.d. and reassess for EPS tomorrow after adding a low dose of Cogentin. 3/4 continue current medications. 3/5 continue current medications. 3/6 continue current medications. 3/7: continue current medications. 10/20: decrease haldol to 5mg PO BID, added cogentin due to more severe bilat action tremors I spent minutes with the patient and/or on the patient floor today, gre ater than?50% of which was spent counseling/coordinating care. Reason for contiued inpatient stay Substantial Risk for: inability to function
--- NOTE | 2021-10-21 13:25 | P.PNPSI_ITS ---
Subjective Subjective Date of Service: 10/21/21 Reason For Visit: psychotic disorder Subjective Notes: Conditional Voluntary Interim History: Pt sitting in chair, watching TV. She reports she continues to hear voices. She reports God telling her things But denies CAH. She reports feeling depressed. She asks this typewriters functional tester to please stop talking with her at this moment. Medication Compliance: Intermittent Side effects from medications: No Review of Systems Review of Systems No fever, no chest, no shortness of breath, she is confused . The review of system is otherwise limited due to the patient's mental state Yes Unobtainable due to mental condition Mental Status Exam Mental Status Exam Patient Appearance: Well Grooomed Patient Orientation: Person Level of Consciousness: Awake Patient Behavior: Cooperative and Passive Mood Description: Labile Affect Description: Constricted Patient Cognition Impaired: Yes Ability to Follow Directions: Fair Speech Pattern: Clear Diagnostics Vital Signs (24Hr): Vital Signs - 24 hr 10/22/21 16:38 10/22/21 18:00 10/22/21 21:53 Temperature 98.6 F Pulse Rate 115 H 100 100 Respiratory Rate 20 16 16 Blood Pressure 98/66 92/57 L 99/54 L Pulse Oximetry 98 97 97 BMI result Body Mass Index 25.3 Labs Results: 10/20/21 07:21 10/20/21 07:21 Imaging Radiology Impressions: ITS Impressions Head CT 10/08/21 15:16 IMPRESSION: No acute intracranial pathology. Head CT 10/09/21 13:54 IMPRESSION: No acute intracranial pathology. Pelvic/Transvag US 10/13/21 09:24 IMPRESSION: Abnormally thickened endometrium for a postmenopausal patient measuring 0.9 cm. 3 x 2.7 x 3.7 cm mass in the posterior cervix. This may represent a fibroid. Slightly thickened trabeculated bladder wall. Head CT 10/20/21 08:18 IMPRESSION: No acute intracranial pathology. This critical result was discussed with Dr. Chu at 8:30 hours on 10/20/2021. It was ascertained that the content and urgency of the report was understood at the time of direct communication. Medications Medications Current Medications Acetaminophen (Acetaminophen 325 Mg Tablet) 650 mg PO Q6H PRN PRN Reason: Headache/Pain Mild Scale (1-3) Last Admin: 10/16/21 19:52 Dose: 650 mg Documented by: Al Hydroxide/Mg Hydroxide (Magnesium Hydrox/Alum Hydrox 30 Ml Oral.Susp) 30 ml PO Q6H PRN PRN Reason: Heartburn/Nausea Apixaban (Apixaban 5 Mg Tablet) 5 mg PO BID [facility] Last Admin: 10/23/21 10:27 Dose: Not Given Documented by: Benztropine Mesylate (Benztropine Mesylate 0.5 Mg Tablet) 0.5 mg PO BID [facility] Last Admin: 10/23/21 10:27 Dose: Not Given Documented by: Clozapine (Clozapine 100 Mg Tablet) 200 mg PO BEDTIME [facility] Last Admin: 10/22/21 20:05 Dose: 200 mg Documented by: Clozapine (Clozapine 25 Mg Tablet) 50 mg PO BID [facility] Last Admin: 10/23/21 10:27 Dose: Not Given Documented by: Desmopressin Acetate (Desmopressin Acetate 0.2 Mg Tablet) 0.2 mg PO BID [facility] Last Admin: 10/23/21 10:27 Dose: Not Given Documented by: Haloperidol (Haloperidol 5 Mg Tablet) 5 mg PO BID [facility] Last Admin: 10/23/21 10:28 Dose: Not Given Documented by: Hydrochlorothiazide (Hydrochlorothiazide 25 Mg Tablet) 25 mg PO DAILY [facility]; Protocol Last Admin: 10/23/21 10:28 Dose: Not Given Documented by: Hydroxyzine HCl (Hydroxyzine Hcl 25 Mg Tablet) 25 mg PO BEDTIME PRN PRN Reason: Anxiety Lorazepam (Lorazepam 0.5 Mg Tablet) 0.5 mg PO Q8H PRN PRN Reason: severe anxiety/restlessness Last Admin: 10/22/21 20:05 Dose: 0.5 mg Documented by: Magnesium Hydroxide (Milk Of Magnesia 30 Ml Oral.Susp) 30 ml PO DAILY PRN PRN Reason: Constipation Last Admin: 10/11/21 16:03 Dose: 30 ml Documented by: Mirtazapine (Mirtazapine 15 Mg Tablet) 15 mg PO BEDTIME [facility] Last Admin: 10/22/21 20:05 Dose: 15 mg Documented by: Potassium Chloride (Potassium Chloride Er 10 Meq Capsule.Er) 40 meq PO BID [facility] Last Admin: 10/23/21 10:28 Dose: Not Given Documented by: Trazodone HCl (Trazodone Hcl 50 Mg Tablet) 50 mg PO BEDTIME PRN PRN Reason: Insomnia Last Admin: 10/18/21 22:28 Dose: 50 mg Documented by: Allergies Allergies Allergy/AdvReac Type Severity Reaction Status Date / Time No Known Allergies Allergy Unverified 05/01/20 19:42 [No Known Allergies*] Assessment & Plan Assessment & Plan (1) Schizophrenia, paranoid, chronic with acute exacerbation: Status: Acute Code(s): F20.0 - Paranoid schizophrenia (2) Hypertension: Status: Acute Code(s): I10 - Essential (primary) hypertension Plan 66-year-old female with Alzheimer's dementia, behavior disturbance, bipolar disorder, hyperparathyroidism, nephrogenic diabetes insipidus, vitamin-D deficiency, B12 deficiency, hypothyroidism, anxiety, history of femoral vein DVT in August of 2021. She is presently admitted to the psychiatric unit due to decompensated bipolar disorder/psychosis. Psychiatrically, we will continue Haldol 5 mg p.o. t.i.d. and clozapine. We are waiting for the clozapine levels in order to increase clozapine to target psychosis. At this moment we will start the titration of Clozaril with 25 mg p.o. b.i.d. Patient tolerating medication trial remains depressed and psychotic Pt depressed withdrawn devil/god telling her not to take meds. Recently she has vaginal bleeding. Plan 1. Keep clozapine up to 50 mg p.o. b.i.d. and keep the same dose at HS. 2. Ultrasound pelvic showed myomas . 3. 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 4. Keep Haldol 10 mg p.o. b.i.d. and reassess for EPS tomorrow after adding a low dose of Cogentin. 3/4 continue current medications. 3/5 continue current medications. 3/6 continue current medications. 3/7: continue current medications. 8: decrease haldol to 5mg PO BID, added cogentin due to more severe bilat action tremors I spent minutes with the patient and/or on the patient floor today, greater than?50% of which was spent counseling/coordinating care. Reason for contiued inpatient stay Substantial Risk for: inability to function
[2021-10-21] MEDS: LORazepam 0.5 MG TABLET PO (13:57)
[2021-10-21] MEDS: Mirtazapine 15 MG TABLET PO (20:39)
[2021-10-21] MEDS: cloZAPine 100 MG TABLET 200 MG PO (20:40)
[2021-10-21 21:02] VITALS: BP 105/57; PULSE 103; RESP 16; TEMP 36.3; O2SAT 99
[2021-10-22] MEDS: LORazepam 0.5 MG TABLET PO ×2 (00:09→20:05)
[2021-10-22] MEDS: HaloperidoL 5 MG TABLET PO ×2 (00:11→20:05)
[2021-10-22] MEDS: Apixaban 5 MG TABLET PO ×2 (00:11→20:06)
[2021-10-22] MEDS: Benztropine Mesylate 0.5 MG TABLET PO ×2 (00:14→20:04)
[2021-10-22 07:00] VITALS: BMI 25.3
--- NOTE | 2021-10-22 13:27 | HO.PSYCHPN ---
Subjective Subjective Date of Service: 10/22/21 Reason For Visit: psychotic disorder Subjective Notes: Conditional Voluntary Interim History: Pt sitting in chair, in alvarez. She nodding off, opens eyes, reports she is tired, hearing voices. She denies SI/HI. She appears to have less action tremors with decrease haldol and cogentin. Pt continues to report voices telling her at times not to take medications and today she has declined most of the,. Medication Compliance: Intermittent Review of Systems Review of Systems No fever, no chest, no shortness of breath, she is confused . The review of system is otherwise limited due to the patient's mental state Yes Unobtainable due to mental condition Mental Status Exam Mental Status Exam Patient Appearance: Well Grooomed Patient Orientation: Person Level of Consciousness: Awake Patient Behavior: Cooperative and Passive Mood Description: Labile Affect Description: Constricted Patient Cognition Impaired: Yes Ability to Follow Directions: Fair Speech Pattern: Clear Diagnostics Vital Signs (24Hr): Vital Signs - 24 hr 10/22/21 16:38 10/22/21 18:00 10/22/21 21:53 Temperature 98.6 F Pulse Rate 115 H 100 100 Respiratory Rate 20 16 16 Blood Pressure 98/66 92/57 L 99/54 L Pulse Oximetry 98 97 97 BMI result Body Mass Index 25.3 Labs Results: 10/20/21 07:21 10/20/21 07:21 Imaging Radiology Impressions: ITS Impressions Head CT 10/08/21 15:16 IMPRESSION: No acute intracranial pathology. Head CT 10/09/21 13:54 IMPRESSION: No acute intracranial pathology. Pelvic/Transvag US 10/13/21 09:24 IMPRESSION: Abnormally thickened endometrium for a postmenopausal patient measuring 0.9 cm. 3 x 2.7 x 3.7 cm mass in the posterior cervix. This may represent a fibroid. Slightly thickened trabeculated bladder wall. Head CT 10/20/21 08:18 IMPRESSION: No acute intracranial pathology. This critical result was discussed with Dr. Chu at 8:30 hours on 10/20/2021. It was ascertained that the content and urgency of the report was understood at the time of direct communication. Medications Medications Current Medications Acetaminophen (Acetaminophen 325 Mg Tablet) 650 mg PO Q6H PRN PRN Reason: Headache/Pain Mild Scale (1-3) Last Admin: 10/16/21 19:52 Dose: 650 mg Documented by: Al Hydroxide/Mg Hydroxide (Magnesium Hydrox/Alum Hydrox 30 Ml Oral.Susp) 30 ml PO Q6H PRN PRN Reason: Heartburn/Nausea Apixaban (Apixaban 5 Mg Tablet) 5 mg PO BID [facility] Last Admin: 10/23/21 10:27 Dose: Not Given Documented by: Benztropine Mesylate (Benztropine Mesylate 0.5 Mg Tablet) 0.5 mg PO BID [facility] Last Admin: 10/23/21 10:27 Dose: Not Given Documented by: Clozapine (Clozapine 100 Mg Tablet) 200 mg PO BEDTIME [facility] Last Admin: 10/22/21 20:05 Dose: 200 mg Documented by: Clozapine (Clozapine 25 Mg Tablet) 50 mg PO BID [facility] Last Admin: 10/23/21 10:27 Dose: Not Given Documented by: Desmopressin Acetate (Desmopressin Acetate 0.2 Mg Tablet) 0.2 mg PO BID [facility] Last Admin: 10/23/21 10:27 Dose: Not Given Documented by: Haloperidol (Haloperidol 5 Mg Tablet) 5 mg PO BID [facility] Last Admin: 10/23/21 10:28 Dose: Not Given Documented by: Hydrochlorothiazide (Hydrochlorothiazide 25 Mg Tablet) 25 mg PO DAILY [facility]; Protocol Last Admin: 10/23/21 10:28 Dose: Not Given Documented by: Hydroxyzine HCl (Hydroxyzine Hcl 25 Mg Tablet) 25 mg PO BEDTIME PRN PRN Reason: Anxiety Lorazepam (Lorazepam 0.5 Mg Tablet) 0.5 mg PO Q8H PRN PRN Reason: severe anxiety/restlessness Last Admin: 10/22/21 20:05 Dose: 0.5 mg Documented by: Magnesium Hydroxide (Milk Of Magnesia 30 Ml Oral.Susp) 30 ml PO DAILY PRN PRN Reason: Constipation Last Admin: 10/11/21 16:03 Dose: 30 ml Documented by: Mirtazapine (Mirtazapine 15 Mg Tablet) 15 mg PO BEDTIME [facility] Last Admin: 10/22/21 20:05 Dose: 15 mg Documented by: Potassium Chloride (Potassium Chloride Er 10 Meq Capsule.Er) 40 meq PO BID [facility] Last Admin: 10/23/21 10:28 Dose: Not Given Documented by: Trazodone HCl (Trazodone Hcl 50 Mg Tablet) 50 mg PO BEDTIME PRN PRN Reason: Insomnia Last Admin: 10/18/21 22:28 Dose: 50 mg Documented by: Allergies Allergies Allergy/AdvReac Type Severity Reaction Status Date / Time No Known Allergies Allergy Unverified 05/01/20 19:42 [No Known Allergies*] Assessment & Plan Assessment & Plan (1) Schizophrenia, paranoid, chronic with acute exacerbation: Status: Acute Code(s): F20.0 - Paranoid schizophrenia (2) Hypertension: Status: Acute Code(s): I10 - Essential (primary) hypertension Plan 66-year-old female with Alzheimer's dementia, behavior disturbance, bipolar disorder, hyperparathyroidism, nephrogenic diabetes insipidus, vitamin-D deficiency, B12 deficiency, hypothyroidism, anxiety, history of femoral vein DVT in August of 2021. She is presently admitted to the psychiatric unit due to decompensated bipolar disorder/psychosis. Psychiatrically, we will continue Haldol 5 mg p.o. t.i.d. and clozapine. We are waiting for the clozapine levels in order to increase clozapine to target psychosis. At this moment we will start the titration of Clozaril with 25 mg p.o. b.i.d. Patient tolerating medication trial remains depressed and psychotic Pt depressed withdrawn devil/god telling her not to take meds. Recently she has vaginal bleeding. Plan 1. Keep clozapine up to 50 mg p.o. b.i.d. and keep the same dose at HS. 2. Ultrasound pelvic showed myomas . 3. 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 4. Keep Haldol 10 mg p.o. b.i.d. and reassess for EPS tomorrow after adding a low dose of Cogentin. 3/4 continue current medications. 3/5 continue current medications. 3/6 continue current medications. 3/7: continue current medications. 10/20: decrease haldol to 5mg PO BID, added cogentin due to more severe bilat action tremors I spent minutes with the patient and/or on the patient floor today, greater than?50% of which was spent counseling/coordinating care. Reason for contiued inpatient stay Substantial Risk for: inability to function
--- NOTE | 2021-10-22 13:31 | P.PNPSI_ITS ---
Subjective Subjective Date of Service: 10/22/21 Reason For Visit: psychotic disorder Subjective Notes: Conditional Voluntary Interim History: Pt sitting in chair on alvarez. She reports feeling depressed. She continues to report that God is on one hand the one making him feel sad but also the only one who can help her. She declined most medications today because she states that God told her to do so. Medication Compliance: Intermittent Review of Systems Review of Systems No fever, no chest, no shortness of breath, she is confused . The review of system is otherwise limited due to the patient's mental state Yes Unobtainable due to mental condition Mental Status Exam Mental Status Exam Patient Appearance: Well Grooomed Patient Orientation: Person Level of Consciousness: Awake Patient Behavior: Cooperative and Passive Mood Description: Labile Affect Description: Constricted Patient Cognition Impaired: Yes Ability to Follow Directions: Fair Speech Pattern: Clear Diagnostics Vital Signs (24Hr): Vital Signs - 24 hr 10/22/21 16:38 10/22/21 18:00 10/22/21 21:53 Temperature 98.6 F Pulse Rate 115 H 100 100 Respiratory Rate 20 16 16 Blood Pressure 98/66 92/57 L 99/54 L Pulse Oximetry 98 97 97 BMI result Body Mass Index 25.3 Labs Results: 10/20/21 07:21 10/20/21 07:21 Imaging Radiology Impressions: ITS Impressions Head CT 10/08/21 15:16 IMPRESSION: No acute intracranial pathology. Head CT 10/09/21 13:54 IMPRESSION: No acute intracranial pathology. Pelvic/Transvag US 10/13/21 09:24 IMPRESSION: Abnormally thickened endometrium for a postmenopausal patient measuring 0.9 cm. 3 x 2.7 x 3.7 cm mass in the posterior cervix. This may represent a fibroid. Slightly thickened trabeculated bladder wall. Head CT 10/20/21 08:18 IMPRESSION: No acute intracranial pathology. This critical result was discussed with Dr. Chu at 8:30 hours on 10/20/2021. It was ascertained that the content and urgency of the report was understood at the time of direct communication. Medications Medications Current Medications Acetaminophen (Acetaminophen 325 Mg Tablet) 650 mg PO Q6H PRN PRN Reason: Headache/Pain Mild Scale (1-3) Last Admin: 10/16/21 19:52 Dose: 650 mg Documented by: Al Hydroxide/Mg Hydroxide (Magnesium Hydrox/Alum Hydrox 30 Ml Oral.Susp) 30 ml PO Q6H PRN PRN Reason: Heartburn/Nausea Apixaban (Apixaban 5 Mg Tablet) 5 mg PO BID [facility] Last Admin: 10/23/21 10:27 Dose: Not Given Documented by: Benztropine Mesylate (Benztropine Mesylate 0.5 Mg Tablet) 0.5 mg PO BID [facility] Last Admin: 10/23/21 10:27 Dose: Not Given Documented by: Clozapine (Clozapine 100 Mg Tablet) 200 mg PO BEDTIME [facility] Last Admin: 10/22/21 20:05 Dose: 200 mg Documented by: Clozapine (Clozapine 25 Mg Tablet) 50 mg PO BID [facility] Last Admin: 10/23/21 10:27 Dose: Not Given Documented by: Desmopressin Acetate (Desmopressin Acetate 0.2 Mg Tablet) 0.2 mg PO BID [facility] Last Admin: 10/23/21 10:27 Dose: Not Given Documented by: Haloperidol (Haloperidol 5 Mg Tablet) 5 mg PO BID [facility] Last Admin: 10/23/21 10:28 Dose: Not Given Documented by: Hydrochlorothiazide (Hydrochlorothiazide 25 Mg Tablet) 25 mg PO DAILY [facility]; Protocol Last Admin: 10/23/21 10:28 Dose: Not Given Documented by: Hydroxyzine HCl (Hydroxyzine Hcl 25 Mg Tablet) 25 mg PO BEDTIME PRN PRN Reason: Anxiety Lorazepam (Lorazepam 0.5 Mg Tablet) 0.5 mg PO Q8H PRN PRN Reason: severe anxiety/restlessness Last Admin: 10/22/21 20:05 Dose: 0.5 mg Documented by: Magnesium Hydroxide (Milk Of Magnesia 30 Ml Oral.Susp) 30 ml PO DAILY PRN PRN Reason: Constipation Last Admin: 10/11/21 16:03 Dose: 30 ml Documented by: Mirtazapine (Mirtazapine 15 Mg Tablet) 15 mg PO BEDTIME [facility] Last Admin: 10/22/21 20:05 Dose: 15 mg Documented by: Potassium Chloride (Potassium Chloride Er 10 Meq Capsule.Er) 40 meq PO BID [facility] Last Admin: 10/23/21 10:28 Dose: Not Given Documented by: Trazodone HCl (Trazodone Hcl 50 Mg Tablet) 50 mg PO BEDTIME PRN PRN Reason: Insomnia Last Admin: 10/18/21 22:28 Dose: 50 mg Documented by: Allergies Allergies Allergy/AdvReac Type Severity Reaction Status Date / Time No Known Allergies Allergy Unverified 05/01/20 19:42 [No Known Allergies*] Assessment & Plan Assessment & Plan (1) Schizophrenia, paranoid, chronic with acute exacerbation: Status: Acute Code(s): F20.0 - Paranoid schizophrenia (2) Hypertension: Status: Acute Code(s): I10 - Essential (primary) hypertension Plan 66-year-old female with Alzheimer's dementia, behavior disturbance, bipolar disorder, hyperparathyroidism, nephrogenic diabetes insipidus, vitamin-D deficiency, B12 deficiency, hypothyroidism, anxiety, history of femoral vein DVT in August of 2021. She is presently admitted to the psychiatric unit due to decompensated bipolar disorder/psychosis. Psychiatrically, we will continue Haldol 5 mg p.o. t.i.d. and clozapine. We are waiting for the clozapine levels in order to increase clozapine to target psychosis. At this moment we will start the titration of Clozaril with 25 mg p.o. b.i.d. Patient tolerating medication trial remains depressed and psychotic Pt depressed withdrawn devil/god telling her not to take meds. Recently she has vaginal bleeding. Plan 1. Keep clozapine up to 50 mg p.o. b.i.d. and keep the same dose at HS. 2. Ultrasound pelvic showed myomas . 3. 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 4. Keep Haldol 10 mg p.o. b.i.d. and reassess for EPS tomorrow after adding a low dose of Cogentin. 3/4 continue current medications. 3/5 continue current medications. 3/6 continue current medications. 3/7: continue current medications. 8: decrease haldol to 5mg PO BID, added cogentin due to more severe bilat action tremors I spent minutes with the patient and/or on the patient floor today, greater than?50% of which was spent counseling/coordinating care. Reason for contiued inpatient stay Substantial Risk for: inability to function
[2021-10-22 16:38] VITALS: BP 98/66; PULSE 115; RESP 20; O2SAT 98
--- NOTE | 2021-10-22 16:39 | PC.NURSE ---
Pt had a fall in the hallway, pt was seated in a chair in the hallway and reported I fell . Amarilis Pascual was on the floor at the time and observed the pt.
--- NOTE | 2021-10-22 17:17 | PC.NURSE ---
Pt daughter notified that pt had a fall in the hallway, no injury.
[2021-10-22 18:00] VITALS: BP 92/57; PULSE 100; RESP 16; TEMP 37; O2SAT 97
[2021-10-22] MEDS: Desmopressin Acetate 0.2 MG TABLET PO (20:04)
[2021-10-22] MEDS: Mirtazapine 15 MG TABLET PO (20:05)
[2021-10-22] MEDS: cloZAPine 100 MG TABLET 200 MG PO (20:05)
[2021-10-22 21:53] VITALS: BP 99/54; PULSE 100; RESP 16; O2SAT 97
[2021-10-22] MEDS: cloZAPine 25 MG TABLET 50 MG PO (22:09)
--- NOTE | 2021-10-23 02:32 | PC.NURSE ---
initially pt found wandering the hallways with her walker. she is confused and is resistant to taking her scheduled medications. she states God does not want me to take those medicines . pt has been witnessed to sit down on the hallway floor and bathroom floor for no apparent reason. she has been agitated/anxious and somewhat uncooperative. with great effort, i was able to persuade pt to take her psychotropic medications. as the night progressed, she spent time in the sensory room coloring but remained resistant to retiring to her room for the night. eventually she returned to her room and layed down. by midnight she was quite somnolent.
--- NOTE | 2021-10-23 14:43 | HO.PSYCHPN ---
Subjective Subjective Date of Service: 10/23/21 Reason For Visit: psychotic disorder Subjective Notes: Conditional Voluntary Interim History: Pt more visible on unit today. She attended a group and participated but noted to talk to voices at times. She continues to hear voices of God that bring her down. She reports voices at time tell her not to take medications. Per nursing, pt slept through the night, no behavioral concerns . Pt denies SI/HI. Medication Compliance: Intermittent Side effects from medications: Yes (bilat tremors) Review of Systems Review of Systems No fever, no chest, no shortness of breath, she is confused . The review of system is otherwise limited due to the patient's mental state Yes Unobtainable due to mental condition Mental Status Exam Mental Status Exam Patient Appearance: Well Grooomed Patient Orientation: Person Level of Consciousness: Awake Patient Behavior: Cooperative and Passive Mood Description: Labile Affect Description: Constricted Patient Cognition Impaired: Yes Ability to Follow Directions: Fair Speech Pattern: Clear Diagnostics Vital Signs (24Hr): Vital Signs - 24 hr 10/22/21 18:00 10/22/21 21:53 Temperature 98.6 F Pulse Rate 100 100 Respiratory Rate 16 16 Blood Pressure 92/57 L 99/54 L Pulse Oximetry 97 97 BMI result Body Mass Index 25.3 Labs Results: 10/20/21 07:21 10/20/21 07:21 Imaging Radiology Impressions: ITS Impressions Head CT 10/08/21 15:16 IMPRESSION: No acute intracranial pathology. Head CT 10/09/21 13:54 IMPRESSION: No acute intracranial pathology. Pelvic/Transvag US 10/13/21 09:24 IMPRESSION: Abnormally thickened endometrium for a postmenopausal patient measuring 0.9 cm. 3 x 2.7 x 3.7 cm mass in the posterior cervix. This may represent a fibroid. Slightly thickened trabeculated bladder wall. Head CT 10/20/21 08:18 IMPRESSION: No acute intracranial pathology. This critical result was discussed with Dr. Chu at 8:30 hours on 10/20/2021. It was ascertained that the content and urgency of the report was understood at the time of direct communication. Medications Medications Current Medications Acetaminophen (Acetaminophen 325 Mg Tablet) 650 mg PO Q6H PRN PRN Reason: Headache/Pain Mild Scale (1-3) Last Admin: 10/16/21 19:52 Dose: 650 mg Documented by: Al Hydroxide/Mg Hydroxide (Magnesium Hydrox/Alum Hydrox 30 Ml Oral.Susp) 30 ml PO Q6H PRN PRN Reason: Heartburn/Nausea Apixaban (Apixaban 5 Mg Tablet) 5 mg PO BID [facility] Last Admin: 10/23/21 10:27 Dose: Not Given Documented by: Benztropine Mesylate (Benztropine Mesylate 0.5 Mg Tablet) 0.5 mg PO BID [facility] Last Admin: 10/23/21 10:27 Dose: Not Given Documented by: Clozapine (Clozapine 100 Mg Tablet) 200 mg PO BEDTIME [facility] Last Admin: 10/22/21 20:05 Dose: 200 mg Documented by: Clozapine (Clozapine 25 Mg Tablet) 50 mg PO BID [facility] Last Admin: 10/23/21 10:27 Dose: Not Given Documented by: Desmopressin Acetate (Desmopressin Acetate 0.2 Mg Tablet) 0.2 mg PO BID [facility] Last Admin: 10/23/21 10:27 Dose: Not Given Documented by: Haloperidol (Haloperidol 5 Mg Tablet) 5 mg PO BID [facility] Last Admin: 10/23/21 10:28 Dose: Not Given Documented by: Hydrochlorothiazide (Hydrochlorothiazide 25 Mg Tablet) 25 mg PO DAILY [facility]; Protocol Last Admin: 10/23/21 10:28 Dose: Not Given Documented by: Hydroxyzine HCl (Hydroxyzine Hcl 25 Mg Tablet) 25 mg PO BEDTIME PRN PRN Reason: Anxiety Lorazepam (Lorazepam 0.5 Mg Tablet) 0.5 mg PO Q8H PRN PRN Reason: severe anxiety/restlessness Last Admin: 10/23/21 14:56 Dose: 0.5 mg Documented by: Magnesium Hydroxide (Milk Of Magnesia 30 Ml Oral.Susp) 30 ml PO DAILY PRN PRN Reason: Constipation Last Admin: 10/11/21 16:03 Dose: 30 ml Documented by: Mirtazapine (Mirtazapine 15 Mg Tablet) 15 mg PO BEDTIME [facility] Last Admin: 10/22/21 20:05 Dose: 15 mg Documented by: Potassium Chloride (Potassium Chloride Er 10 Meq Capsule.Er) 40 meq PO BID [facility] Last Admin: 10/23/21 10:28 Dose: Not Given Documented by: Trazodone HCl (Trazodone Hcl 50 Mg Tablet) 50 mg PO BEDTIME PRN PRN Reason: Insomnia Last Admin: 10/18/21 22:28 Dose: 50 mg Documented by: Allergies Allergies Allergy/AdvReac Type Severity Reaction Status Date / Time No Known Allergies Allergy Unverified 05/01/20 19:42 [No Known Allergies*] Assessment & Plan Assessment & Plan (1) Schizophrenia, paranoid, chronic with acute exacerbation: Status: Acute Code(s): F20.0 - Paranoid schizophrenia (2) Hypertension: Status: Acute Code(s): I10 - Essential (primary) hypertension Plan 66-year-old female with Alzheimer's dementia, behavior disturbance, bipolar disorder, hyperparathyroidism, nephrogenic diabetes insipidus, vitamin-D deficiency, B12 deficiency, hypothyroidism, anxiety, history of femoral vein DVT in August of 2021. She is presently admitted to the psychiatric unit due to decompensated bipolar disorder/psychosis. Psychiatrically, we will continue Haldol 5 mg p.o. t.i.d. and clozapine. We are waiting for the clozapine levels in order to increase clozapine to target psychosis. At this moment we will start the titration of Clozaril with 25 mg p.o. b.i.d. Patient tolerating medication trial remains depressed and psychotic Pt depressed withdrawn devil/god telling her not to take meds. Recently she has vaginal bleeding. Plan 1. Keep clozapine up to 50 mg p.o. b.i.d. and keep the same dose at HS. 2. Ultrasound pelvic showed myomas . 3. [employer] consult to be done as an outpatient. 4. Keep Haldol 10 mg p.o. b.i.d. and reassess for EPS tomorrow after adding a low dose of Cogentin. 3/4 continue current medications. 3/5 continue current medications. 3/6 continue current medications. 3/7: continue current medications. 8: decrease haldol to 5mg PO BID, added cogentin due to more severe bilat action tremors I spent minutes with the patient and/or on the patient floor today, greater than?50% of which was spent counseling/coordinating care. Reason for contiued inpatient stay Substantial Risk for: inability to function
[2021-10-23] MEDS: LORazepam 0.5 MG TABLET PO (14:56)
[2021-10-23] MEDS: Apixaban 5 MG TABLET PO (19:42)
[2021-10-23] MEDS: traZODone HCL 50 MG TABLET PO (21:11)
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
--- NOTE | 2021-10-23 23:20 | PC.NURSE ---
patients behavior reported to Dr. Nails. Patient did sleep after Trazadone given but still refused her other medications.
[2021-10-24] MEDS: cloZAPine 25 MG TABLET 50 MG PO ×2 (12:56→20:29)
[2021-10-24] MEDS: HaloperidoL 5 MG TABLET PO ×2 (12:58→20:29)
[2021-10-24] MEDS: Milk of Magnesia 30 ML ORAL.SUSP PO (13:56)
[2021-10-24 18:00] VITALS: BP 109/54; PULSE 97; RESP 18; TEMP 36.3; O2SAT 97
--- NOTE | 2021-10-24 19:36 | HO.PSYCHPN ---
Subjective Subjective Date of Service: 10/24/21 Reason For Visit: psychotic disorder Subjective Notes: Conditional Voluntary Interim History: responding to internal stimuli, religiously preoccupied, intermittently yells out in repsonse to internal stimuli, inconsistently taking meds; eating fairly well. Medication Compliance: Intermittent Side effects from medications: No Attending Groups: No Review of Systems Acute medical concerns: No Medical Review of Systems: unchanged Review of Systems Review of Systems no change Yes Unobtainable due to mental condition Mental Status Exam Mental Status Exam Patient Appearance: Well Grooomed Patient Orientation: Person Level of Consciousness: Awake Patient Behavior: Cooperative and Passive Mood Description: Labile Affect Description: Constricted Patient Cognition Impaired: Yes Ability to Follow Directions: Fair Speech Pattern: Clear Hallucinations: Auditory Thought Process: Disoriented Thought Content: positive for Preoccupation Judgement: Poor Diagnostics Vital Signs (24Hr): BMI result Body Mass Index 25.3 Labs Results: 10/20/21 07:21 10/20/21 07:21 Imaging Radiology Impressions: ITS Impressions Head CT 10/08/21 15:16 IMPRESSION: No acute intracranial pathology. Head CT 10/09/21 13:54 IMPRESSION: No acute intracranial pathology. Pelvic/Transvag US 10/13/21 09:24 IMPRESSION: Abnormally thickened endometrium for a postmenopausal patient measuring 0.9 cm. 3 x 2.7 x 3.7 cm mass in the posterior cervix. This may represent a fibroid. Slightly thickened trabeculated bladder wall. Head CT 10/20/21 08:18 IMPRESSION: No acute intracranial pathology. This critical result was discussed with Dr. Chu at 8:30 hours on 10/20/2021. It was ascertained that the content and urgency of the report was understood at the time of direct communication. Medications Medications Current Medications Acetaminophen (Acetaminophen 325 Mg Tablet) 650 mg PO Q6H PRN PRN Reason: Headache/Pain Mild Scale (1-3) Last Admin: 10/16/21 19:52 Dose: 650 mg Documented by: Al Hydroxide/Mg Hydroxide (Magnesium Hydrox/Alum Hydrox 30 Ml Oral.Susp) 30 ml PO Q6H PRN PRN Reason: Heartburn/Nausea Apixaban (Apixaban 5 Mg Tablet) 5 mg PO BID [facility] Last Admin: 10/24/21 09:53 Dose: Not Given Documented by: Benztropine Mesylate (Benztropine Mesylate 0.5 Mg Tablet) 0.5 mg PO BID [facility] Last Admin: 10/24/21 09:53 Dose: Not Given Documented by: Clozapine (Clozapine 100 Mg Tablet) 200 mg PO BEDTIME [facility] Last Admin: 10/23/21 21:40 Dose: Not Given Documented by: Clozapine (Clozapine 25 Mg Tablet) 50 mg PO BID [facility] Last Admin: 10/24/21 12:56 Dose: 50 mg Documented by: Desmopressin Acetate (Desmopressin Acetate 0.2 Mg Tablet) 0.2 mg PO BID [facility] Last Admin: 10/24/21 09:53 Dose: Not Given Documented by: Haloperidol (Haloperidol 5 Mg Tablet) 5 mg PO BID [facility] Last Admin: 10/24/21 12:58 Dose: 5 mg Documented by: Hydrochlorothiazide (Hydrochlorothiazide 25 Mg Tablet) 25 mg PO DAILY [facility]; Protocol Last Admin: 10/24/21 09:53 Dose: Not Given Documented by: Hydroxyzine HCl (Hydroxyzine Hcl 25 Mg Tablet) 25 mg PO BEDTIME PRN PRN Reason: Anxiety Lorazepam (Lorazepam 0.5 Mg Tablet) 0.5 mg PO Q8H PRN PRN Reason: severe anxiety/restlessness Last Admin: 10/23/21 14:56 Dose: 0.5 mg Documented by: Magnesium Hydroxide (Milk Of Magnesia 30 Ml Oral.Susp) 30 ml PO DAILY PRN PRN Reason: Constipation Last Admin: 10/24/21 13:56 Dose: 30 ml Documented by: Mirtazapine (Mirtazapine 15 Mg Tablet) 15 mg PO BEDTIME [facility] Last Admin: 10/23/21 21:41 Dose: Not Given Documented by: Potassium Chloride (Potassium Chloride Er 10 Meq Capsule.Er) 40 meq PO BID [facility] Last Admin: 10/24/21 08:52 Dose: 40 meq Documented by: Trazodone HCl (Trazodone Hcl 50 Mg Tablet) 50 mg PO BEDTIME PRN PRN Reason: Insomnia Last Admin: 10/23/21 21:11 Dose: 50 mg Documented by: Allergies Allergies Allergy/AdvReac Type Severity Reaction Status Date / Time No Known Allergies Allergy Unverified 05/01/20 19:42 [No Known Allergies*] Assessment & Plan Assessment & Plan (1) Schizophrenia, paranoid, chronic with acute exacerbation: Status: Acute Code(s): F20.0 - Paranoid schizophrenia (2) Hypertension: Status: Acute Code(s): I10 - Essential (primary) hypertension Plan 66-year-old female with Alzheimer's dementia, behavior disturbance, bipolar disorder, hyperparathyroidism, nephrogenic diabetes insipidus, vitamin-D deficiency, B12 deficiency, hypothyroidism, anxiety, history of femoral vein DVT in August of 2021. She is presently admitted to the psychiatric unit due to decompensated bipolar disorder/psychosis. Plan: continue current treatment plan- no changes I spent __15____ minutes with the patient and/or on the patient floor today, greater than?50% of which was spent counseling/coordinating care. Patient educated on: therapeutic strategies Informed Consent: further education needed Reason for contiued inpatient stay Substantial Risk for: harm to self, inability to function and rapid decompensation
[2021-10-24] MEDS: cloZAPine 100 MG TABLET 200 MG PO (20:00)
[2021-10-24] MEDS: traZODone HCL 50 MG TABLET PO (20:27)
[2021-10-24] MEDS: Benztropine Mesylate 0.5 MG TABLET PO (20:28)
[2021-10-24] MEDS: Mirtazapine 15 MG TABLET PO (20:28)
[2021-10-24] MEDS: Desmopressin Acetate 0.2 MG TABLET PO (20:29)
[2021-10-24] MEDS: Apixaban 5 MG TABLET PO (20:29)
[2021-10-25] MEDS: HaloperidoL 5 MG TABLET PO ×2 (13:49→20:22)
[2021-10-25] MEDS: cloZAPine 25 MG TABLET 50 MG PO ×2 (13:49→20:21)
--- NOTE | 2021-10-25 13:51 | PC.NURSE ---
Patient refused A.M. meds. Appears to be responding to internal stimuli.Yelling out in response to voices. Patient has stated, voices are telling her if she takes her meds she will be crosseyed. Patient has been amenable to taking clozaril and haldol but nothing else this shift. Attempting to avoid going 48 hours without clozaril and having to restart at lower dose.
[2021-10-25 13:56] VITALS: BP 104/56; PULSE 106; O2SAT 93
--- NOTE | 2021-10-25 14:48 | P.PNPSI_ITS ---
Subjective Subjective Date of Service: 10/25/21 Reason For Visit: psychotic disorder Subjective Notes: Conditional Voluntary Interim History: responding to internal stimuli, religiously preoccupied, intermittently yells out in repsonse to internal stimuli, inconsistently taking meds; refused am meds today, eating fairly well, taking fluids. Medication Compliance: Intermittent Side effects from medications: No Attending Groups: Intermittent Review of Systems Acute medical concerns: No Medical Review of Systems: unchanged Review of Systems Review of Systems no change Yes Unobtainable due to mental condition Mental Status Exam Mental Status Exam Patient Appearance: Well Grooomed Patient Orientation: Person Level of Consciousness: Awake Patient Behavior: Cooperative and Passive Mood Description: Labile Affect Description: Constricted Patient Cognition Impaired: Yes Ability to Follow Directions: Fair Speech Pattern: Clear Judgement: Poor Diagnostics Vital Signs (24Hr): Vital Signs - 24 hr 10/24/21 18:00 10/25/21 13:56 Temperature 97.4 F Pulse Rate 97 106 H Respiratory Rate 18 Blood Pressure 109/54 L 104/56 L Pulse Oximetry 97 93 BMI result Body Mass Index 25.3 Labs Results: 10/20/21 07:21 10/20/21 07:21 Imaging Radiology Impressions: ITS Impressions Head CT 10/08/21 15:16 IMPRESSION: No acute intracranial pathology. Head CT 10/09/21 13:54 IMPRESSION: No acute intracranial pathology. Pelvic/Transvag US 10/13/21 09:24 IMPRESSION: Abnormally thickened endometrium for a postmenopausal patient measuring 0.9 cm. 3 x 2.7 x 3.7 cm mass in the posterior cervix. This may represent a fibroid. Slightly thickened trabeculated bladder wall. Head CT 10/20/21 08:18 IMPRESSION: No acute intracranial pathology. This critical result was discussed with Dr. Chu at 8:30 hours on 10/20/2021. It was ascertained that the content and urgency of the report was understood at the time of direct communication. Medications Medications Current Medications Acetaminophen (Acetaminophen 325 Mg Tablet) 650 mg PO Q6H PRN PRN Reason: Headache/Pain Mild Scale (1-3) Last Admin: 10/16/21 19:52 Dose: 650 mg Documented by: Al Hydroxide/Mg Hydroxide (Magnesium Hydrox/Alum Hydrox 30 Ml Oral.Susp) 30 ml PO Q6H PRN PRN Reason: Heartburn/Nausea Apixaban (Apixaban 5 Mg Tablet) 5 mg PO BID [facility] Last Admin: 10/25/21 13:41 Dose: Not Given Documented by: Benztropine Mesylate (Benztropine Mesylate 0.5 Mg Tablet) 0.5 mg PO BID [facility] Last Admin: 10/25/21 13:42 Dose: Not Given Documented by: Clozapine (Clozapine 100 Mg Tablet) 200 mg PO BEDTIME [facility] Last Admin: 10/24/21 20:00 Dose: 200 mg Documented by: Clozapine (Clozapine 25 Mg Tablet) 50 mg PO BID [facility] Last Admin: 10/25/21 13:49 Dose: 50 mg Documented by: Desmopressin Acetate (Desmopressin Acetate 0.2 Mg Tablet) 0.2 mg PO BID [facility] Last Admin: 10/25/21 13:42 Dose: Not Given Documented by: Haloperidol (Haloperidol 5 Mg Tablet) 5 mg PO BID [facility] Last Admin: 10/25/21 13:49 Dose: 5 mg Documented by: Hydrochlorothiazide (Hydrochlorothiazide 25 Mg Tablet) 25 mg PO DAILY [facility]; Protocol Last Admin: 10/25/21 13:42 Dose: Not Given Documented by: Hydroxyzine HCl (Hydroxyzine Hcl 25 Mg Tablet) 25 mg PO BEDTIME PRN PRN Reason: Anxiety Lorazepam (Lorazepam 0.5 Mg Tablet) 0.5 mg PO Q8H PRN PRN Reason: severe anxiety/restlessness Last Admin: 10/23/21 14:56 Dose: 0.5 mg Documented by: Magnesium Hydroxide (Milk Of Magnesia 30 Ml Oral.Susp) 30 ml PO DAILY PRN PRN Reason: Constipation Last Admin: 10/24/21 13:56 Dose: 30 ml Documented by: Mirtazapine (Mirtazapine 15 Mg Tablet) 15 mg PO BEDTIME [facility] Last Admin: 10/24/21 20:28 Dose: 15 mg Documented by: Potassium Chloride (Potassium Chloride Er 10 Meq Capsule.Er) 40 meq PO BID [facility] Last Admin: 10/25/21 13:42 Dose: Not Given Documented by: Trazodone HCl (Trazodone Hcl 50 Mg Tablet) 50 mg PO BEDTIME PRN PRN Reason: Insomnia Last Admin: 10/24/21 20:27 Dose: 50 mg Documented by: Allergies Allergies Allergy/AdvReac Type Severity Reaction Status Date / Time No Known Allergies Allergy Unverified 05/01/20 19:42 [No Known Allergies*] Assessment & Plan Assessment & Plan (1) Schizophrenia, paranoid, chronic with acute exacerbation: Status: Acute Code(s): F20.0 - Paranoid schizophrenia (2) Hypertension: Status: Acute Code(s): I10 - Essential (primary) hypertension Plan 66-year-old female with Alzheimer's dementia, behavior disturbance, bipolar disorder, hyperparathyroidism, nephrogenic diabetes insipidus, vitamin-D deficiency, B12 deficiency, hypothyroidism, anxiety, history of femoral vein DVT in August of 2021. She is presently admitted to the psychiatric unit due to decompensated bipolar disorder/psychosis. Plan: continue current treatment plan- no changes I spent ___15___ minutes with the patient and/or on the patient floor today, greater than?50% of which was spent counseling/coordinating care. Patient educated on: diagnosis, medication risk/benefits and therapeutic strategies Informed Consent: does not understand and further education needed Reason for contiued inpatient stay Substantial Risk for: harm to self, inability to function, rapid decompensation and med/psych decompensation
[2021-10-25] MEDS: hydroCHLOROthiazide 25 MG TABLET PO (16:39)
[2021-10-25] MEDS: Benztropine Mesylate 0.5 MG TABLET PO ×2 (16:39→20:22)
[2021-10-25] MEDS: Acetaminophen 325 MG TABLET 650 MG PO (16:39)
[2021-10-25] MEDS: Apixaban 5 MG TABLET PO ×2 (16:39→20:22)
[2021-10-25] MEDS: Desmopressin Acetate 0.2 MG TABLET PO ×2 (16:40→20:22)
[2021-10-25] MEDS: Mirtazapine 15 MG TABLET PO (20:21)
[2021-10-25] MEDS: cloZAPine 100 MG TABLET 200 MG PO (20:21)
[2021-10-25 21:12] VITALS: BP 112/77; PULSE 112; RESP 18; TEMP 36.3; O2SAT 95
[2021-10-26 01:06] LABS: Clozapine (Clozaril) 690 mcg/L; Norclozapine 305 mcg/L (25-400)
[2021-10-26 07:59] LABS: Neutrophils Absolute Auto 2.8 x10*3/uL (2.0-8.3); Neutrophils Absolute Auto 2.9 x10*3/uL (2.0-8.3); WBCANC 5.1 X10*3/uL; White Blood Count 5.1 X10*3/uL (4.8-10.8)
--- NOTE | 2021-10-26 13:03 | P.PNPSI_ITS ---
Subjective Subjective Date of Service: 10/26/21 Reason For Visit: psychotic disorder Interim History: The nursing staff reports the patient remains on close observation since she put herself on the for frequently. Apparently, yesterday she was agitated refused p.o. medications. On interview, the patient reports auditory hallucinations but apparently that is her baseline, even so, she still agitated at times. On physical exam, she has tremors. Mental Status Exam Mental Status Exam Patient Appearance: Well Grooomed Patient Orientation: Person Level of Consciousness: Awake Patient Behavior: Guarded and Suspicious Mood Description: Depressed Affect Description: Constricted Ability to Follow Directions: Good Speech Pattern: Clear Hallucinations: Auditory Delusions: Paranoid Ideation Thought Process: Evasive Thought Content: positive for Circumstantial Judgement: Fair Diagnostics Vital Signs (24Hr): Vital Signs - 24 hr 10/25/21 13:56 10/25/21 21:12 Temperature 97.4 F Pulse Rate 106 H 112 H Respiratory Rate 18 Blood Pressure 104/56 L 112/77 Pulse Oximetry 93 95 BMI result Body Mass Index 25.3 Labs Results: 10/26/21 07:50 10/20/21 07:21 Labs: Laboratory Results - last 48 hr 10/21/21 10/26/21 10/26/21 07:14 07:50 07:50 WBC 5.1 Absolute Neuts (auto) 2.9 2.8 Clozapine 690 Norclozapine 305 Imaging Radiology Impressions: ITS Impressions Head CT 10/08/21 15:16 IMPRESSION: No acute intracranial pathology. Head CT 10/09/21 13:54 IMPRESSION: No acute intracranial pathology. Pelvic/Transvag US 10/13/21 09:24 IMPRESSION: Abnormally thickened endometrium for a postmenopausal patient measuring 0.9 cm. 3 x 2.7 x 3.7 cm mass in the posterior cervix. This may represent a fibroid. Slightly thickened trabeculated bladder wall. Head CT 10/20/21 08:18 IMPRESSION: No acute intracranial pathology. This critical result was discussed with Dr. Chu at 8:30 hours on 10/20/2021. It was ascertained that the content and urgency of the report was understood at the time of direct communication. Medications Medications Current Medications Acetaminophen (Acetaminophen 325 Mg Tablet) 650 mg PO Q6H PRN PRN Reason: Headache/Pain Mild Scale (1-3) Last Admin: 10/25/21 16:39 Dose: 650 mg Documented by: Al Hydroxide/Mg Hydroxide (Magnesium Hydrox/Alum Hydrox 30 Ml Oral.Susp) 30 ml PO Q6H PRN PRN Reason: Heartburn/Nausea Apixaban (Apixaban 5 Mg Tablet) 5 mg PO BID [facility] Last Admin: 10/26/21 11:10 Dose: Not Given Documented by: Benztropine Mesylate (Benztropine Mesylate 0.5 Mg Tablet) 0.5 mg PO BID [facility] Last Admin: 10/26/21 11:10 Dose: Not Given Documented by: Clozapine (Clozapine 100 Mg Tablet) 200 mg PO BEDTIME [facility] Last Admin: 10/25/21 20:21 Dose: 200 mg Documented by: Clozapine (Clozapine 25 Mg Tablet) 50 mg PO BID [facility] Last Admin: 10/26/21 11:11 Dose: Not Given Documented by: Desmopressin Acetate (Desmopressin Acetate 0.2 Mg Tablet) 0.2 mg PO BID [facility] Last Admin: 10/26/21 11:11 Dose: Not Given Documented by: Haloperidol (Haloperidol 5 Mg Tablet) 5 mg PO BID [facility] Last Admin: 10/26/21 11:11 Dose: Not Given Documented by: Hydrochlorothiazide (Hydrochlorothiazide 25 Mg Tablet) 25 mg PO DAILY [facility]; P rotocol Last Admin: 10/26/21 11:11 Dose: Not Given Documented by: Hydroxyzine HCl (Hydroxyzine Hcl 25 Mg Tablet) 25 mg PO BEDTIME PRN PRN Reason: Anxiety Magnesium Hydroxide (Milk Of Magnesia 30 Ml Oral.Susp) 30 ml PO DAILY PRN PRN Reason: Constipation Last Admin: 10/24/21 13:56 Dose: 30 ml Documented by: Mirtazapine (Mirtazapine 15 Mg Tablet) 15 mg PO BEDTIME [facility] Last Admin: 10/25/21 20:21 Dose: 15 mg Documented by: Potassium Chloride (Potassium Chloride Er 10 Meq Capsule.Er) 40 meq PO BID [facility] Last Admin: 10/26/21 11:11 Dose: Not Given Documented by: Trazodone HCl (Trazodone Hcl 50 Mg Tablet) 50 mg PO BEDTIME PRN PRN Reason: Insomnia Last Admin: 10/24/21 20:27 Dose: 50 mg Documented by: Allergies Allergies Allergy/AdvReac Type Severity Reaction Status Date / Time No Known Allergies Allergy Unverified 05/01/20 19:42 [No Known Allergies*] Assessment & Plan Assessment & Plan (1) Schizophrenia, paranoid, chronic with acute exacerbation: Status: Acute Code(s): F20.0 - Paranoid schizophrenia (2) Hypertension: Status: Acute Code(s): I10 - Essential (primary) hypertension Plan 66-year-old female with Alzheimer's dementia, behavior disturbance, bipolar d isorder, hyperparathyroidism, nephrogenic diabetes insipidus, vitamin-D deficiency, B12 deficiency, hypothyroidism, anxiety, history of femoral vein DVT in August of 2021. She is presently admitted to the psychiatric unit due to decompensated bipolar disorder/psychosis. Plan: continue current treatment plan- Add Ativan 0.5 mg po tid for anxiety and EPS I spent ___20___ minutes with the patient and/or on the patient floor today, greater than?50% of which was spent counseling/coordinating care. Reason for contiued inpatient stay Substantial Risk for: inability to function, rapid decompensation and med/psych decompensation
[2021-10-26] MEDS: LORazepam 1 MG TABLET PO (17:11)
[2021-10-26 18:00] VITALS: BP 122/59; PULSE 103; RESP 17; TEMP 36.3; O2SAT 99
[2021-10-26] MEDS: cloZAPine 25 MG TABLET 50 MG PO (19:53)
[2021-10-26] MEDS: Apixaban 5 MG TABLET PO (19:54)
[2021-10-26] MEDS: LORazepam 0.5 MG TABLET PO (19:55)
[2021-10-26] MEDS: HaloperidoL 5 MG TABLET PO (19:56)
[2021-10-26] MEDS: Mirtazapine 15 MG TABLET PO (19:56)
[2021-10-26] MEDS: Benztropine Mesylate 0.5 MG TABLET PO (19:57)
[2021-10-26] MEDS: cloZAPine 100 MG TABLET 200 MG PO (19:57)
[2021-10-26] MEDS: Desmopressin Acetate 0.2 MG TABLET PO (19:57)
[2021-10-26] MEDS: Milk of Magnesia 30 ML ORAL.SUSP PO (20:03)
[2021-10-27 06:00] VITALS: BP 105/63; PULSE 88; RESP 20; TEMP 36.2; O2SAT 98
[2021-10-27] MEDS: LORazepam 0.5 MG TABLET PO ×3 (10:20→19:54)
[2021-10-27] MEDS: hydroCHLOROthiazide 25 MG TABLET PO (10:20)
[2021-10-27] MEDS: Benztropine Mesylate 0.5 MG TABLET PO ×2 (10:20→19:56)
[2021-10-27] MEDS: Apixaban 5 MG TABLET PO ×2 (10:21→19:53)
[2021-10-27] MEDS: Desmopressin Acetate 0.2 MG TABLET PO ×2 (10:21→19:53)
[2021-10-27] MEDS: cloZAPine 25 MG TABLET 50 MG PO (10:21)
[2021-10-27] MEDS: HaloperidoL 5 MG TABLET PO (10:21)
[2021-10-27] MEDS: LORazepam 1 MG TABLET PO (12:49)
--- NOTE | 2021-10-27 13:10 | HO.PSYCHPN ---
Subjective Subjective Date of Service: 10/27/21 Reason For Visit: psychotic disorder Subjective Notes: Conditional Voluntary Interim History: the nursing staff reported the patient is on close observation, she uses a bed alarm at night. Yesterday in the morning she refused medications and later she was yelling due to auditory hallucinations. We review her chart and apparently she has refused Clozaril at least 12 times while admitted. On interview the patient complained of auditory hallucinations and she looks slightly sedated with the addition of Ativan. She stated that Haldol is not working for her so she agreed to taper it off slowly and increase Clozaril. She looks less constricted with EPS Mental Status Exam Mental Status Exam Patient Appearance: Well Grooomed Patient Orientation: Person Level of Consciousness: Awake Patient Behavior: Guarded and Passive Mood Description: Withdrawn Affect Description: Constricted Patient Cognition Impaired: Yes Ability to Follow Directions: Good Speech Pattern: Clear Hallucinations: Auditory Delusions: Paranoid Ideation Thought Process: Distracted and Evasive Thought Content: positive for [place] and positive for Poverty of Content Judgement: Poor Diagnostics Vital Signs (24Hr): Vital Signs - 24 hr 10/26/21 18:00 10/27/21 06:00 Temperature 97.3 F 97.2 F Pulse Rate 103 H 88 Respiratory Rate 17 20 Blood Pressure 122/59 L 105/63 Pulse Oximetry 99 98 BMI result Body Mass Index 25.3 Labs Results: 10/26/21 07:50 10/20/21 07:21 Labs: Laboratory Results - last 48 hr 10/21/21 10/26/21 10/26/21 07:14 07:50 07:50 WBC 5.1 Absolute Neuts (auto) 2.9 2.8 Clozapine 690 Norclozapine 305 Imaging Radiology Impressions: ITS Impressions Head CT 10/08/21 15:16 IMPRESSION: No acute intracranial pathology. Head CT 10/09/21 13:54 IMPRESSION: No acute intracranial pathology. Pelvic/Transvag US 10/13/21 09:24 IMPRESSION: Abnormally thickened endometrium for a postmenopausal patient measuring 0.9 cm. 3 x 2.7 x 3.7 cm mass in the posterior cervix. This may represent a fibroid. Slightly thickened trabeculated bladder wall. Head CT 10/20/21 08:18 IMPRESSION: No acute intracranial pathology. This critical result was discussed with Dr. Chu at 8:30 hours on 10/20/2021. It was ascertained that the content and urgency of the report was understood at the time of direct communication. Medications Medications Current Medications Acetaminophen (Acetaminophen 325 Mg Tablet) 650 mg PO Q6H PRN PRN Reason: Headache/Pain Mild Scale (1-3) Last Admin: 10/25/21 16:39 Dose: 650 mg Documented by: Al Hydroxide/Mg Hydroxide (Magnesium Hydrox/Alum Hydrox 30 Ml Oral.Susp) 30 ml PO Q6H PRN PRN Reason: Heartburn/Nausea Apixaban (Apixaban 5 Mg Tablet) 5 mg PO BID [facility] Last Admin: 10/27/21 10:21 Dose: 5 mg Documented by: Benztropine Mesylate (Benztropine Mesylate 0.5 Mg Tablet) 0.5 mg PO BID [facility] Last Admin: 10/27/21 10:20 Dose: 0.5 mg Documented by: Clozapine (Clozapine 100 Mg Tablet) 200 mg PO BEDTIME [facility] Last Admin: 10/26/21 19:57 Dose: 200 mg Documented by: Clozapine (Clozapine 25 Mg Tablet) 50 mg PO BID [facility] Last Admin: 10/27/21 10:21 Dose: 50 mg Documented by: Desmopressin Acetate (Desmopressin Acetate 0.2 Mg Tablet) 0.2 mg PO BID [facility] Last Admin: 10/27/21 10:21 Dose: 0.2 mg Documented by: Haloperidol (Haloperidol 5 Mg Tablet) 5 mg PO BID [facility] Last Admin: 10/27/21 10:21 Dose: 5 mg Documented by: Hydrochlorothiazide (Hydrochlorothiazide 25 Mg Tablet) 25 mg PO DAILY [facility]; Protocol Last Admin: 10/27/21 10:20 Dose: 25 mg Documented by: Hydroxyzine HCl (Hydroxyzine Hcl 25 Mg Tablet) 25 mg PO BEDTIME PRN PRN Reason: Anxiety Lorazepam (Lorazepam 1 Mg Tablet) 1 mg PO Q6H PRN PRN Reason: Anxiety Last Admin: 10/27/21 12:49 Dose: 1 mg Documented by: Lorazepam (Lorazepam 0.5 Mg Tablet) 0.5 mg PO TID [facility] Last Admin: 10/27/21 10:20 Dose: 0.5 mg Documented by: Magnesium Hydroxide (Milk Of Magnesia 30 Ml Oral.Susp) 30 ml PO DAILY PRN PRN Reason: Constipation Last Admin: 10/26/21 20:03 Dose: 30 ml Documented by: Mirtazapine (Mirtazapine 15 Mg Tablet) 15 mg PO BEDTIME [facility] Last Admin: 10/26/21 19:56 Dose: 15 mg Documented by: Potassium Chloride (Potassium Chloride Er 10 Meq Capsule.Er) 40 meq PO BID [facility] Last Admin: 10/27/21 10:21 Dose: 40 meq Documented by: Trazodone HCl (Trazodone Hcl 50 Mg Tablet) 50 mg PO BEDTIME PRN PRN Reason: Insomnia Last Admin: 10/24/21 20:27 Dose: 50 mg Documented by: Allergies Allergies Allergy/AdvReac Type Severity Reaction Status Date / Time No Known Allergies Allergy Unverified 05/01/20 19:42 [No Known Allergies*] Assessment & Plan Assessment & Plan (1) Schizophrenia, paranoid, chronic with acute exacerbation: Status: Acute Code(s): F20.0 - Paranoid schizophrenia (2) Hypertension: Status: Acute Code(s): I10 - Essential (primary) hypertension Plan 66-year-old female with Alzheimer's dementia, behavior disturbance, bipolar disorder, hyperparathyroidism, nephrogenic diabetes insipidus, vitamin-D deficiency, B12 deficiency, hypothyroidism, anxiety, history of femoral vein DVT in August of 2021. She is presently admitted to the psychiatric unit due to decompensated bipolar disorder/psychosis. Plan: Increase Clozaril up to 75 mg po bid and 200 mg po qhs. Lower Haldol to 2 mg po bid Rest the same I spent ___20___ minutes with the patient and/or on the patient floor today, greater than?50% of which was spent counseling/coordinating care. Reason for contiued inpatient stay Substantial Risk for: inability to function, rapid decompensation and med/psych decompensation
[2021-10-27 18:00] VITALS: BP 93/46; PULSE 109; RESP 18; TEMP 36.5; O2SAT 97
[2021-10-27] MEDS: cloZAPine 100 MG TABLET 200 MG PO (19:40)
[2021-10-27] MEDS: cloZAPine 25 MG TABLET 75 MG PO (19:40)
[2021-10-27] MEDS: Mirtazapine 15 MG TABLET PO (19:53)
[2021-10-27] MEDS: HaloperidoL 1 MG TABLET 2 MG PO (19:54)
[2021-10-28] MEDS: LORazepam 1 MG TABLET PO (00:48)
[2021-10-28 10:58] VITALS: BP 108/56; PULSE 97; RESP 16; TEMP 36.2; O2SAT 95
[2021-10-28] MEDS: cloZAPine 25 MG TABLET 75 MG PO (11:15)
[2021-10-28] MEDS: HaloperidoL 1 MG TABLET 2 MG PO (11:16)
[2021-10-28] MEDS: Desmopressin Acetate 0.2 MG TABLET PO (11:18)
[2021-10-28] MEDS: Benztropine Mesylate 0.5 MG TABLET PO (11:18)
[2021-10-28] MEDS: Apixaban 5 MG TABLET PO (11:19)
[2021-10-28] MEDS: LORazepam 0.5 MG TABLET PO ×2 (11:19→16:09)
--- NOTE | 2021-10-28 12:49 | HO.PSYCHPN ---
Subjective Subjective Date of Service: 10/28/21 Reason For Visit: psychotic disorder Subjective Notes: Conditional Voluntary Interim History: The nursing staff reported that she still on close observation due to her behavioral problems. The patient has complained of auditory hallucinations telling her not to taking her medications. The staff has noticed that sometimes he gels at her voices. On interview, the patient denies side effects with increase of Clozaril, she states that Haldol has not helped her at all. She agreed to increase Clozaril up to 100 mg p.o. b.i.d. and 200 mg p.o. q.h.s.. We will address the possibility of adding a 2nd antipsychotic at the end of the week. Mental Status Exam Mental Status Exam Patient Appearance: Disheveled Patient Orientation: Person Level of Consciousness: Disoriented and Inappropriate Patient Behavior: Guarded, Passive and Suspicious Mood Description: Withdrawn Affect Description: Withdrawn and Fearful Patient Cognition Impaired: Yes Ability to Follow Directions: Fair Speech Pattern: Clear Memory Description: Intact Hallucinations: Auditory Delusions: Paranoid Ideation Thought Process: Illogical and Slowed Thinking Thought Content: positive for [place], positive for Poverty of Content and positive for Thought Blocking Judgement: Poor Diagnostics Vital Signs (24Hr): Vital Signs - 24 hr 10/27/21 18:00 10/28/21 10:58 Temperature 97.7 F 97.2 F Pulse Rate 109 H 97 Respiratory Rate 18 16 Blood Pressure 93/46 L 108/56 L Pulse Oximetry 97 95 BMI result Body Mass Index 25.3 Labs Results: 10/26/21 07:50 10/20/21 07:21 Imaging Radiology Impressions: ITS Impressions Head CT 10/08/21 15:16 IMPRESSION: No acute intracranial pathology. Head CT 10/09/21 13:54 IMPRESSION: No acute intracranial pathology. Pelvic/Transvag US 10/13/21 09:24 IMPRESSION: Abnormally thickened endometrium for a postmenopausal patient measuring 0.9 cm. 3 x 2.7 x 3.7 cm mass in the posterior cervix. This may represent a fibroid. Slightly thickened trabeculated bladder wall. Head CT 10/20/21 08:18 IMPRESSION: No acute intracranial pathology. This critical result was discussed with Dr. Chu at 8:30 hours on 10/20/2021. It was ascertained that the content and urgency of the report was understood at the time of direct communication. Medications Medications Current Medications Acetaminophen (Acetaminophen 325 Mg Tablet) 650 mg PO Q6H PRN PRN Reason: Headache/Pain Mild Scale (1-3) Last Admin: 10/25/21 16:39 Dose: 650 mg Documented by: Al Hydroxide/Mg Hydroxide (Magnesium Hydrox/Alum Hydrox 30 Ml Oral.Susp) 30 ml PO Q6H PRN PRN Reason: Heartburn/Nausea Apixaban (Apixaban 5 Mg Tablet) 5 mg PO BID [facility] Last Admin: 10/28/21 11:19 Dose: 5 mg Documented by: Benztropine Mesylate (Benztropine Mesylate 0.5 Mg Tablet) 0.5 mg PO BID [facility] Last Admin: 10/28/21 11:18 Dose: 0.5 mg Documented by: Bisacodyl (Bisacodyl 10 Mg Supp.Rect) 10 mg [place] DAILY PRN PRN Reason: Constipation Clozapine (Clozapine 100 Mg Tablet) 200 mg PO BEDTIME [facility] Last Admin: 10/27/21 19:40 Dose: 200 mg Documented by: Clozapine (Clozapine 25 Mg Tablet) 75 mg PO BID [facility] Last Admin: 10/28/21 11:15 Dose: 75 mg Documented by: Desmopressin Acetate (Desmopressin Acetate 0.2 Mg Tablet) 0.2 mg PO BID [facility] Last Admin: 10/28/21 11:18 Dose: 0.2 mg Documented by: Haloperidol (Haloperidol 1 Mg Tablet) 2 mg PO BID [facility] Last Admin: 10/28/21 11:16 Dose: 2 mg Documented by: Hydrochlorothiazide (Hydrochlorothiazide 25 Mg Tablet) 25 mg PO DAILY [facility]; Protocol Last Admin: 10/28/21 11:23 Dose: Not Given Documented by: Hydroxyzine HCl (Hydroxyzine Hcl 25 Mg Tablet) 25 mg PO BEDTIME PRN PRN Reason: Anxiety Lorazepam (Lorazepam 1 Mg Tablet) 1 mg PO Q6H PRN PRN Reason: Anxiety Last Admin: 10/28/21 00:48 Dose: 1 mg Documented by: Lorazepam (Lorazepam 0.5 Mg Tablet) 0.5 mg PO TID [facility] Last Admin: 10/28/21 11:19 Dose: 0.5 mg Documented by: Magnesium Hydroxide (Milk Of Magnesia 30 Ml Oral.Susp) 30 ml PO DAILY PRN PRN Reason: Constipation Last Admin: 10/26/21 20:03 Dose: 30 ml Documented by: Mirtazapine (Mirtazapine 15 Mg Tablet) 15 mg PO BEDTIME [facility] Last Admin: 10/27/21 19:53 Dose: 15 mg Documented by: Potassium Chloride (Potassium Chloride Er 10 Meq Capsule.Er) 40 meq PO BID [facility] Last Admin: 10/28/21 11:17 Dose: 40 meq Documented by: Trazodone HCl (Trazodone Hcl 50 Mg Tablet) 50 mg PO BEDTIME PRN PRN Reason: Insomnia Last Admin: 10/24/21 20:27 Dose: 50 mg Documented by: Allergies Allergies Allergy/AdvReac Type Severity Reaction Status Date / Time No Known Allergies Allergy Unverified 05/01/20 19:42 [No Known Allergies*] Assessment & Plan Assessment & Plan (1) Schizophrenia, paranoid, chronic with acute exacerbation: Status: Acute Code(s): F20.0 - Paranoid schizophrenia (2) Hypertension: Status: Acute Code(s): I10 - Essential (primary) hypertension Plan 66-year-old female with Alzheimer's dementia, behavior disturbance, bipolar disorder, hyperparathyroidism, nephrogenic diabetes insipidus, vitamin-D deficiency, B12 deficiency, hypothyroidism, anxiety, history of femoral vein DVT in August of 2021. She is presently admitted to the psychiatric unit due to decompensated bipolar disorder/psychosis. Plan: Increase Clozaril up to 100 mg po bid and 200 mg po qhs. Discontinue Haldol 2 mg po bid Rest the same I spent __20____ minutes with the patient and/or on the patient floor today, greater than?50% of which was spent counseling/coordinating care. Reason for contiued inpatient stay Substantial Risk for: inability to function, rapid decompensation and med/psych decompensation
[2021-10-28 18:00] VITALS: BP 104/64; PULSE 98; RESP 20; TEMP 36.6; O2SAT 96
[2021-10-28] MEDS: traZODone HCL 50 MG TABLET PO (21:07)
--- NOTE | 2021-10-29 03:38 | PC.NURSE ---
patient was yelling out all evening and hearing voices states I am a devil worshipper . Refused all medications except Potassium and Trazadone. Multiple attempts to give her her medications failed. Explained importance of Clozaril and pt states It does not help me and I am not taking it .
[2021-10-29] MEDS: bisacodyL 10 MG SUPP.RECT PR (05:09)
[2021-10-29 07:00] VITALS: BMI 27.0
--- NOTE | 2021-10-29 12:28 | P.PNPSI_ITS ---
Subjective Subjective Date of Service: 10/29/21 Reason For Visit: psychotic disorder Subjective Notes: Conditional Voluntary Interim History: The nursing staff reported the patient has refused clozapine here and there, she is not fully compliant with the medication. The staff also reported that she has been hearing auditory hallucinations, she is paranoid and very distressed. On interview, I explained to the patient she has to be fully compliant with Clozaril keep her voices down. Still on close observation for safety Mental Status Exam Mental Status Exam Patient Appearance: Unkempt Patient Orientation: Person Level of Consciousness: Alert Patient Behavior: Guarded and Suspicious Mood Description: Withdrawn Affect Description: Labile Patient Cognition Impaired: Yes Ability to Follow Directions: Good Speech Pattern: Clear Hallucinations: Auditory Delusions: Paranoid Ideation Thought Process: Illogical, Distracted and Evasive Thought Content: positive for [place], positive for Poverty of Content, positive for [place] and positive for Thought Blocking Judgement: Poor Diagnostics Vital Signs (24Hr): Vital Signs - 24 hr 10/28/21 18:00 Temperature 97.9 F Pulse Rate 98 Respiratory Rate 20 Blood Pressure 104/64 Pulse Oximetry 96 BMI result Body Mass Index 25.3 Labs Results: 10/26/21 07:50 10/20/21 07:21 Imaging Radiology Impressions: ITS Impressions Head CT 10/08/21 15:16 IMPRESSION: No acute intracranial pathology. Head CT 10/09/21 13:54 IMPRESSION: No acute intracranial pathology. Pelvic/Transvag US 10/13/21 09:24 IMPRESSION: Abnormally thickened endometrium for a postmenopausal patient measuring 0.9 cm. 3 x 2.7 x 3.7 cm mass in the posterior cervix. This may represent a fibroid. Slightly thickened trabeculated bladder wall. Head CT 10/20/21 08:18 IMPRESSION: No acute intracranial pathology. This critical result was discussed with Dr. Chu at 8:30 hours on 10/20/2021. It was ascertained that the content and urgency of the report was understood at the time of direct communication. Medications Medications Current Medications Acetaminophen (Acetaminophen 325 Mg Tablet) 650 mg PO Q6H PRN PRN Reason: Headache/Pain Mild Scale (1-3) Last Admin: 10/25/21 16:39 Dose: 650 mg Documented by: Al Hydroxide/Mg Hydroxide (Magnesium Hydrox/Alum Hydrox 30 Ml Oral.Susp) 30 ml PO Q6H PRN PRN Reason: Heartburn/Nausea Apixaban (Apixaban 5 Mg Tablet) 5 mg PO BID [facility] Last Admin: 10/28/21 23:17 Dose: Not Given Documented by: Benztropine Mesylate (Benztropine Mesylate 0.5 Mg Tablet) 0.5 mg PO BID [facility] Last Admin: 10/28/21 23:17 Dose: Not Given Documented by: Bisacodyl (Bisacodyl 10 Mg Supp.Rect) 10 mg ID DAILY PRN PRN Reason: Constipation Last Admin: 10/29/21 05:09 Dose: 10 mg Documented by: Clozapine (Clozapine 100 Mg Tablet) 200 mg PO BEDTIME [facility] Last Admin: 10/28/21 23:17 Dose: Not Given Documented by: Clozapine (Clozapine 100 Mg Tablet) 100 mg PO BID [facility] Last Admin: 10/28/21 23:18 Dose: Not Given Documented by: Desmopressin Acetate (Desmopressin Acetate 0.2 Mg Tablet) 0.2 mg PO BID [facility] Last Admin: 10/28/21 23:18 Dose: Not Given Documented by: Hydrochlorothiazide (Hydrochlorothiazide 25 Mg Tablet) 25 mg PO DAILY [facility]; Protocol Last Admin: 10/28/21 11:23 Dose: Not Given Documented by: Hydroxyzine HCl (Hydroxyzine Hcl 25 Mg Tablet) 25 mg PO BEDTIME PRN PRN Reason: Anxiety Lorazepam (Lorazepam 1 Mg Tablet) 1 mg PO Q6H PRN PRN Reason: Anxiety Last Admin: 10/28/21 00:48 Dose: 1 mg Documented by: Lorazepam (Lorazepam 0.5 Mg Tablet) 0.5 mg PO TID [facility] Last Admin: 10/28/21 23:18 Dose: Not Given Documented by: Magnesium Hydroxide (Milk Of Magnesia 30 Ml Oral.Susp) 30 ml PO DAILY PRN PRN Reason: Constipation Last Admin: 10/26/21 20:03 Dose: 30 ml Documented by: Mirtazapine (Mirtazapine 15 Mg Tablet) 15 mg PO BEDTIME [facility] Last Admin: 10/28/21 23:18 Dose: Not Given Documented by: Potassium Chloride (Potassium Chloride Er 10 Meq Capsule.Er) 40 meq PO BID [facility] Last Admin: 10/28/21 21:07 Dose: 40 meq Documented by: Trazodone HCl (Trazodone Hcl 50 Mg Tablet) 50 mg PO BEDTIME PRN PRN Reason: Insomnia Last Admin: 10/28/21 21:07 Dose: 50 mg Documented by: Allergies Allergies Allergy/AdvReac Type Severity Reaction Status Date / Time No Known Allergies Allergy Unverified 05/01/20 19:42 [No Known Allergies*] Assessment & Plan Assessment & Plan (1) Schizophrenia, paranoid, chronic with acute exacerbation: Status: Acute Code(s): F20.0 - Paranoid schizophrenia (2) Hypertension: Status: Acute Code(s): I10 - Essential (primary) hypertension Plan 66-year-old female with Alzheimer's dementia, behavior disturbance, bipolar disorder, hyperparathyroidism, nephrogenic diabetes insipidus, vitamin-D deficiency, B12 deficiency, hypothyroidism, anxiety, history of femoral vein DVT in August of 2021. She is presently admitted to the psychiatric unit due to decompensated bipolar disorder/psychosis. Plan: Increase Clozaril up to 100 mg po bid and 200 mg po qhs. Enforce compliance. Discontinue Haldol 2 mg po bid Continue yet permission of the healthcare proxy in court Rest the same I spent ___20___ minutes with the patient and/or on the patient floor today, greater than?50% of which was spent counseling/coordinating care. Reason for contiued inpatient stay Substantial Risk for: inability to function, rapid decompensation and med/psych decompensation
[2021-10-29] MEDS: LORazepam 0.5 MG TABLET PO (20:17)
[2021-10-29] MEDS: Apixaban 5 MG TABLET PO (20:17)
[2021-10-29] MEDS: Mirtazapine 15 MG TABLET PO (22:34)
[2021-10-29] MEDS: Desmopressin Acetate 0.2 MG TABLET PO (22:34)
[2021-10-29] MEDS: Benztropine Mesylate 0.5 MG TABLET PO (22:35)
[2021-10-29] MEDS: cloZAPine 100 MG TABLET 200 MG PO ×2 (22:35→22:36)
[2021-10-29] MEDS: cloZAPine 100 MG TABLET PO (22:37)
[2021-10-30] MEDS: LORazepam 1 MG TABLET PO (01:29)
[2021-10-30 10:37] VITALS: BP 100/55; PULSE 99; TEMP 36.4; O2SAT 94
--- NOTE | 2021-10-30 12:36 | P.PNPSI_ITS ---
Subjective Subjective Date of Service: 10/30/21 Reason For Visit: psychotic disorder Subjective Notes: Conditional Voluntary Interim History: the nursing staff reported the now [facility] is a one-to-one for safety since she has being up and down is screaming and regarding her voices. She refused her medications in the morning and she is taking only at HS. The staff also reported that sometimes she gets herself on the floor without hitting her head. On interview the patient complains of auditory hallucinations, I reinforced the idea that she has to be fully compliant with treatment. We are waiting for the affirmation of the healthcare proxy so we can use long- acting injectable. Mental Status Exam Mental Status Exam Patient Appearance: Well Grooomed Patient Orientation: Person Level of Consciousness: Awake Patient Behavior: Guarded and Suspicious Mood Description: Withdrawn Affect Description: Constricted Patient Cognition Impaired: Yes Ability to Follow Directions: Good Speech Pattern: Clear Hallucinations: Auditory Delusions: Paranoid Ideation Thought Process: Illogical and Evasive Thought Content: positive for [place] and positive for Poverty of Content Judgement: Fair Diagnostics Vital Signs (24Hr): Vital Signs - 24 hr 10/30/21 10:37 Temperature 97.6 F Pulse Rate 99 Blood Pressure 100/55 L Pulse Oximetry 94 BMI result Body Mass Index 27.0 Labs Results: 10/26/21 07:50 10/20/21 07:21 Imaging Radiology Impressions: ITS Impressions Head CT 10/08/21 15:16 IMPRESSION: No acute intracranial pathology. Head CT 10/09/21 13:54 IMPRESSION: No acute intracranial pathology. Pelvic/Transvag US 10/13/21 09:24 IMPRESSION: Abnormally thickened endometrium for a postmenopausal patient measuring 0.9 cm. 3 x 2.7 x 3.7 cm mass in the posterior cervix. This may represent a fibroid. Slightly thickened trabeculated bladder wall. Head CT 10/20/21 08:18 IMPRESSION: No acute intracranial pathology. This critical result was discussed with Dr. Chu at 8:30 hours on 10/20/2021. It was ascertained that the content and urgency of the report was understood at the time of direct communication. Medications Medications Current Medications Acetaminophen (Acetaminophen 325 Mg Tablet) 650 mg PO Q6H PRN PRN Reason: Headache/Pain Mild Scale (1-3) Last Admin: 10/25/21 16:39 Dose: 650 mg Documented by: Al Hydroxide/Mg Hydroxide (Magnesium Hydrox/Alum Hydrox 30 Ml Oral.Susp) 30 ml PO Q6H PRN PRN Reason: Heartburn/Nausea Apixaban (Apixaban 5 Mg Tablet) 5 mg PO BID [facility] Last Admin: 10/30/21 10:30 Dose: Not Given Documented by: Benztropine Mesylate (Benztropine Mesylate 0.5 Mg Tablet) 0.5 mg PO BID [facility] Last Admin: 10/30/21 10:30 Dose: Not Given Documented by: Bisacodyl (Bisacodyl 10 Mg Supp.Rect) 10 mg [place] DAILY PRN PRN Reason: Constipation Last Admin: 10/29/21 05:09 Dose: 10 mg Documented by: Clozapine (Clozapine 100 Mg Tablet) 200 mg PO BEDTIME [facility] Last Admin: 10/30/21 10:29 Dose: Not Given Documented by: Clozapine (Clozapine 100 Mg Tablet) 100 mg PO BID [facility] Last Admin: 10/30/21 10:30 Dose: Not Given Documented by: Desmopressin Acetate (Desmopressin Acetate 0.2 Mg Tablet) 0.2 mg PO BID [facility] Last Admin: 10/30/21 10:31 Dose: Not Given Documented by: Hydrochlorothiazide (Hydrochlorothiazide 25 Mg Tablet) 25 mg PO DAILY [facility]; Protocol Last Admin: 10/30/21 10:31 Dose: Not Given Documented by: Hydroxyzine HCl (Hydroxyzine Hcl 25 Mg Tablet) 25 mg PO BEDTIME PRN PRN Reason: Anxiety Lorazepam (Lorazepam 1 Mg Tablet) 1 mg PO Q6H PRN PRN Reason: Anxiety Last Admin: 10/30/21 01:29 Dose: 1 mg Documented by: Lorazepam (Lorazepam 0.5 Mg Tablet) 0.5 mg PO TID [facility] Last Admin: 10/30/21 10:31 Dose: Not Given Documented by: Magnesium Hydroxide (Milk Of Magnesia 30 Ml Oral.Susp) 30 ml PO DAILY PRN PRN Reason: Constipation Last Admin: 10/26/21 20:03 Dose: 30 ml Documented by: Mirtazapine (Mirtazapine 15 Mg Tablet) 15 mg PO BEDTIME [facility] Last Admin: 10/29/21 22:34 Dose: 15 mg Documented by: Potassium Chloride (Potassium Chloride Er 10 Meq Capsule.Er) 40 meq PO BID [facility] Last Admin: 10/30/21 10:31 Dose: Not Given Documented by: Trazodone HCl (Trazodone Hcl 50 Mg Tablet) 50 mg PO BEDTIME PRN PRN Reason: Insomnia Last Admin: 10/28/21 21:07 Dose: 50 mg Documented by: Allergies Allergies Allergy/AdvReac Type Severity Reaction Status Date / Time No Known Allergies Allergy Unverified 05/01/20 19:42 [No Known Allergies*] Assessment & Plan Assessment & Plan (1) Schizophrenia, paranoid, chronic with acute exacerbation: Status: Acute Code(s): F20.0 - Paranoid schizophrenia (2) Hypertension: Status: Acute Code(s): I10 - Essential (primary) hypertension Plan 66-year-old female with Alzheimer's dementia, behavior disturbance, bipolar disorder, hyperparathyroidism, nephrogenic diabetes insipidus, vitamin-D deficiency, B12 deficiency, hypothyroidism, anxiety, history of femoral vein DVT in August of 2021. She is presently admitted to the psychiatric unit due to decompensated bipolar disorder/psychosis. Plan: Increase Clozaril up to 100 mg po bid and 200 mg po qhs. Enforce compliance. Discontinue Haldol 2 mg po bid Continue yet permission of the healthcare proxy in court Rest the same I spent _20 minutes with the patient and/or on the patient floor today, greater than?50% of which was spent counseling/coordinating care. Reason for contiued inpatient stay Substantial Risk for: inability to function, rapid decompensation and med/psych decompensation
[2021-10-30 19:40] VITALS: BP 105/52; PULSE 94; RESP 18; TEMP 36.4; O2SAT 98
[2021-10-30] MEDS: Apixaban 5 MG TABLET PO (19:59)
[2021-10-30] MEDS: traZODone HCL 50 MG TABLET PO (20:04)
[2021-10-30] MEDS: LORazepam 0.5 MG TABLET PO (20:12)
[2021-10-30] MEDS: Benztropine Mesylate 0.5 MG TABLET PO (20:51)
[2021-10-30] MEDS: Desmopressin Acetate 0.2 MG TABLET PO (20:51)
[2021-10-31 08:00] VITALS: BP 89/46; PULSE 92; RESP 14; TEMP 36.2; O2SAT 95
[2021-10-31] MEDS: cloZAPine 100 MG TABLET PO ×2 (10:02→20:44)
[2021-10-31] MEDS: Benztropine Mesylate 0.5 MG TABLET PO (10:02)
[2021-10-31] MEDS: LORazepam 0.5 MG TABLET PO ×3 (10:02→20:39)
--- NOTE | 2021-10-31 10:02 | HO.PSYCHPN ---
Subjective Subjective Date of Service: 10/31/21 Reason For Visit: psychotic disorder Subjective Notes: Conditional Voluntary Interim History: The nursing staff reported the patient to his meds last night but she looks psychotic, she complains of auditory hallucinations and she was asking very loud for her walker but she was already assessed by PT and she does not need it. On interview, the patient remains psychotic with auditory hallucinations and she was remember that she needs to be fully compliant with Clozaril. She wants to have a wheelchair but at this moment it is not indicated. Mental Status Exam Mental Status Exam Patient Appearance: Well Grooomed Patient Orientation: Person Level of Consciousness: Awake Patient Behavior: Guarded, Passive and Suspicious Mood Description: Withdrawn Affect Description: Constricted Patient Cognition Impaired: Yes Ability to Follow Directions: Good Speech Pattern: Clear Hallucinations: Auditory Delusions: Paranoid Ideation Thought Process: Illogical and Linear Thought Content: positive for Poverty of Content and positive for Thought Blocking Judgement: Fair Diagnostics Vital Signs (24Hr): Vital Signs - 24 hr 10/30/21 10:37 10/30/21 19:40 Temperature 97.6 F 97.6 F Pulse Rate 99 94 Respiratory Rate 18 Blood Pressure 100/55 L 105/52 L Pulse Oximetry 94 98 BMI result Body Mass Index 27.0 Labs Results: 10/26/21 07:50 10/20/21 07:21 Imaging Radiology Impressions: ITS Impressions Head CT 10/08/21 15:16 IMPRESSION: No acute intracranial pathology. Head CT 10/09/21 13:54 IMPRESSION: No acute intracranial pathology. Pelvic/Transvag US 10/13/21 09:24 IMPRESSION: Abnormally thickened endometrium for a postmenopausal patient measuring 0.9 cm. 3 x 2.7 x 3.7 cm mass in the posterior cervix. This may represent a fibroid. Slightly thickened trabeculated bladder wall. Head CT 10/20/21 08:18 IMPRESSION: No acute intracranial pathology. This critical result was discussed with Dr. Chu at 8:30 hours on 10/20/2021. It was ascertained that the content and urgency of the report was understood at the time of direct communication. Medications Medications Current Medications Acetaminophen (Acetaminophen 325 Mg Tablet) 650 mg PO Q6H PRN PRN Reason: Headache/Pain Mild Scale (1-3) Last Admin: 10/25/21 16:39 Dose: 650 mg Documented by: Al Hydroxide/Mg Hydroxide (Magnesium Hydrox/Alum Hydrox 30 Ml Oral.Susp) 30 ml PO Q6H PRN PRN Reason: Heartburn/Nausea Apixaban (Apixaban 5 Mg Tablet) 5 mg PO BID [facility] Last Admin: 10/30/21 19:59 Dose: 5 mg Documented by: Benztropine Mesylate (Benztropine Mesylate 0.5 Mg Tablet) 0.5 mg PO BID [facility] Last Admin: 10/30/21 20:51 Dose: 0.5 mg Documented by: Bisacodyl (Bisacodyl 10 Mg Supp.Rect) 10 mg [place] DAILY PRN PRN Reason: Constipation Last Admin: 10/29/21 05:09 Dose: 10 mg Documented by: Clozapine (Clozapine 100 Mg Tablet) 200 mg PO BEDTIME [facility] Last Admin: 10/30/21 21:22 Dose: Not Given Documented by: Clozapine (Clozapine 100 Mg Tablet) 100 mg PO BID [facility] Last Admin: 10/30/21 22:13 Dose: Not Given Documented by: Desmopressin Acetate (Desmopressin Acetate 0.2 Mg Tablet) 0.2 mg PO BID [facility] Last Admin: 10/30/21 20:51 Dose: 0.2 mg Documented by: Hydrochlorothiazide (Hydrochlorothiazide 25 Mg Tablet) 25 mg PO DAILY [facility]; Protocol Last Admin: 10/30/21 10:31 Dose: Not Given Documented by: Hydroxyzine HCl (Hydroxyzine Hcl 25 Mg Tablet) 25 mg PO BEDTIME PRN PRN Reason: Anxiety Lorazepam (Lorazepam 1 Mg Tablet) 1 mg PO Q6H PRN PRN Reason: Anxiety Last Admin: 10/30/21 01:29 Dose: 1 mg Documented by: Lorazepam (Lorazepam 0.5 Mg Tablet) 0.5 mg PO TID [facility] Last Admin: 10/30/21 20:12 Dose: 0.5 mg Documented by: Magnesium Hydroxide (Milk Of Magnesia 30 Ml Oral.Susp) 30 ml PO DAILY PRN PRN Reason: Constipation Last Admin: 10/26/21 20:03 Dose: 30 ml Documented by: Mirtazapine (Mirtazapine 15 Mg Tablet) 15 mg PO BEDTIME [facility] Last Admin: 10/30/21 22:14 Dose: Not Given Documented by: Potassium Chloride (Potassium Chloride Er 10 Meq Capsule.Er) 40 meq PO BID [facility] Last Admin: 10/30/21 21:20 Dose: Not Given Documented by: Trazodone HCl (Trazodone Hcl 50 Mg Tablet) 50 mg PO BEDTIME PRN PRN Reason: Insomnia Last Admin: 10/30/21 20:04 Dose: 50 mg Documented by: Allergies Allergies Allergy/AdvReac Type Severity Reaction Status Date / Time No Known Allergies Allergy Unverified 05/01/20 19:42 [No Known Allergies*] Assessment & Plan Assessment & Plan (1) Schizophrenia, paranoid, chronic with acute exacerbation: Status: Acute Code(s): F20.0 - Paranoid schizophrenia (2) Hypertension: Status: Acute Code(s): I10 - Essential (primary) hypertension Plan 66-year-old female with Alzheimer's dementia, behavior disturbance, bipolar disorder, hyperparathyroidism, nephrogenic diabetes insipidus, vitamin-D deficiency, B12 deficiency, hypothyroidism, anxiety, history of femoral vein DVT in August of 2021. She is presently admitted to the psychiatric unit due to decompensated bipolar disorder/psychosis. Plan: Increase Clozaril up to 100 mg po bid and 200 mg po qhs. Enforce compliance. Discontinue Haldol 2 mg po bid Continue yet permission of the healthcare proxy in court Rest the same I spent __20____ minutes with the patient and/or on the patient floor today, greater than?50% of which was spent counseling/coordinating care. Reason for contiued inpatient stay Substantial Risk for: inability to function, rapid decompensation and med/psych decompensation
[2021-10-31] MEDS: LORazepam 1 MG TABLET PO (11:18)
[2021-10-31 20:10] VITALS: BP 94/57; PULSE 97; RESP 16; TEMP 36.2; O2SAT 96
[2021-10-31] MEDS: Mirtazapine 15 MG TABLET PO (20:39)
[2021-10-31] MEDS: cloZAPine 100 MG TABLET 200 MG PO (20:41)
[2021-10-31] MEDS: hydrOXYzine HCL 25 MG TABLET PO (22:32)
[2021-10-31] MEDS: traZODone HCL 50 MG TABLET PO (22:32)
[2021-11-01] MEDS: Apixaban 5 MG TABLET PO ×2 (01:55→10:22)
[2021-11-01] MEDS: Benztropine Mesylate 0.5 MG TABLET PO ×2 (01:55→10:23)
[2021-11-01] MEDS: Desmopressin Acetate 0.2 MG TABLET PO ×2 (01:56→10:23)
[2021-11-01 06:30] VITALS: BP 106/53; PULSE 92; RESP 16; TEMP 36.4; O2SAT 95
[2021-11-01 06:45] VITALS: BP 113/58; PULSE 92; RESP 15; O2SAT 96
[2021-11-01 06:50] LABS: Glucose, Whole Blood 103 mg/dL (60-115)
--- NOTE | 2021-11-01 06:55 | PC.NURSE ---
Pt. found to be unresponsive at approximately 0630 when staff went in to assess for incontinence. Pt. was incontinent of urine. She was not responding to her name being called very loudly or to sternal rub and repositioning to remove soiled brief. VS obtained 97.5, 106/53, 92, 16, 95% RA. Blood sugar 103. BLE 1+ edema and generalized body edema. Pt. experienced a similar episode on 10/20/2021. That is the last time any blood work was drawn. Pt. refused HS potassium. She is not 100% compliant with medications due to command AH. Involuntary mouth movements at rest. Dr. Ragland notified and Suha Hall, [employer] notified. VS obtained again at 0645 - BP 113/58, HR92, O2 Sat 95%, RR15. Dr. Ragland spoke to Perry Degroot RN and ordered a BMP stat.
[2021-11-01 07:20] VITALS: BP 119/67; PULSE 90; RESP 16; O2SAT 96
[2021-11-01 07:34] LABS: Anion Gap 11 (12-20); Blood Urea Nitrogen 10 mg/dL (9-16); Calcium 10.4 mg/dL (8.4-10.2); Carbon Dioxide 24 mmol/L (22-29); Chloride 115 mmol/L (96-108); Estimated Glomerular Filt Rate > 60; Glucose Random 106 mg/dL (60-115); Potassium 3.9 mmol/L (3.3-5.1); Sodium 146 mmol/L (135-145)
[2021-11-01] MEDS: cloZAPine 100 MG TABLET PO (10:23)
[2021-11-01] MEDS: hydroCHLOROthiazide 25 MG TABLET PO (10:23)
--- NOTE | 2021-11-01 10:36 | HO.PSYCHPN ---
Subjective Subjective Date of Service: 11/01/21 Reason For Visit: psychotic disorder Subjective Notes: Conditional Voluntary Interim History: The nursing staff reported that at night she was not responsive. The doctor on-call was called they ordered blood work came back without any changes. Historically, the patient has done and the same behavior a few days ago. Her vital signs are stable. On interview, the patient was lying in her bed, very tired. She remains psychotic, she admitted auditory hallucinations Mental Status Exam Mental Status Exam Patient Appearance: Appropriate Patient Orientation: Person Level of Consciousness: Awake Patient Behavior: Guarded and Passive Mood Description: Withdrawn Affect Description: Constricted Patient Cognition Impaired: Yes Ability to Follow Directions: Good Speech Pattern: Clear Hallucinations: Auditory Delusions: Paranoid Ideation Thought Process: Illogical, Distracted and Evasive Thought Content: positive for Perseveration Judgement: Poor Diagnostics Vital Signs (24Hr): Vital Signs - 24 hr 10/31/21 20:10 11/01/21 06:30 11/01/21 06:45 Temperature 97.1 F 97.5 F Pulse Rate 97 92 92 Respiratory Rate 16 16 15 Blood Pressure 94/57 L 106/53 L 113/58 L Pulse Oximetry 96 95 96 11/01/21 07:20 Temperature Pulse Rate 90 Respiratory Rate 16 Blood Pressure 119/67 Pulse Oximetry 96 BMI result Body Mass Index 27.0 Labs Results: 10/26/21 07:50 11/01/21 07:05 Labs: Laboratory Results - last 48 hr 11/01/21 11/01/21 06:28 07:05 Sodium 146 H Potassium 3.9 Chloride 115 H Carbon Dioxide 24 Anion Gap 11 L BUN 10 Creatinine 0.70 Estim Creat Clear Calc 70.0 Estimated GFR > 60 POC Glucose 103 Random Glucose 106 Calcium 10.4 H Imaging Radiology Impressions: ITS Impressions Head CT 10/08/21 15:16 IMPRESSION: No acute intracranial pathology. Head CT 10/09/21 13:54 IMPRESSION: No acute intracranial pathology. Pelvic/Transvag US 10/13/21 09:24 IMPRESSION: Abnormally thickened endometrium for a postmenopausal patient measuring 0.9 cm. 3 x 2.7 x 3.7 cm mass in the posterior cervix. This may represent a fibroid. Slightly thickened trabeculated bladder wall. Head CT 10/20/21 08:18 IMPRESSION: No acute intracranial pathology. This critical result was discussed with Dr. Chu at 8:30 hours on 10/20/2021. It was ascertained that the content and urgency of the report was understood at the time of direct communication. Medications Medications Current Medications Acetaminophen (Acetaminophen 325 Mg Tablet) 650 mg PO Q6H PRN PRN Reason: Headache/Pain Mild Scale (1-3) Last Admin: 10/25/21 16:39 Dose: 650 mg Documented by: Al Hydroxide/Mg Hydroxide (Magnesium Hydrox/Alum Hydrox 30 Ml Oral.Susp) 30 ml PO Q6H PRN PRN Reason: Heartburn/Nausea Apixaban (Apixaban 5 Mg Tablet) 5 mg PO BID [facility] Last Admin: 11/01/21 10:22 Dose: 5 mg Documented by: Benztropine Mesylate (Benztropine Mesylate 0.5 Mg Tablet) 0.5 mg PO BID [facility] Last Admin: 11/01/21 10:23 Dose: 0.5 mg Documented by: Bisacodyl (Bisacodyl 10 Mg Supp.Rect) 10 mg IN DAILY PRN PRN Reason: Constipation Last Admin: 10/29/21 05:09 Dose: 10 mg Documented by: Clozapine (Clozapine 100 Mg Tablet) 200 mg PO BEDTIME [facility] Last Admin: 10/31/21 20:41 Dose: 200 mg Documented by: Clozapine (Clozapine 100 Mg Tablet) 100 mg PO BID [facility] Last Admin: 11/01/21 10:23 Dose: 100 mg Documented by: Desmopressin Acetate (Desmopressin Acetate 0.2 Mg Tablet) 0.2 mg PO BID [facility] Last Admin: 11/01/21 10:23 Dose: 0.2 mg Documented by: Hydrochlorothiazide (Hydrochlorothiazide 25 Mg Tablet) 25 mg PO DAILY [facility]; Protocol Last Admin: 11/01/21 10:23 Dose: 25 mg Documented by: Hydroxyzine HCl (Hydroxyzine Hcl 25 Mg Tablet) 25 mg PO BEDTIME PRN PRN Reason: Anxiety Last Admin: 10/31/21 22:32 Dose: 25 mg Documented by: Magnesium Hydroxide (Milk Of Magnesia 30 Ml Oral.Susp) 30 ml PO DAILY PRN PRN Reason: Constipation Last Admin: 10/26/21 20:03 Dose: 30 ml Documented by: Mirtazapine (Mirtazapine 15 Mg Tablet) 15 mg PO BEDTIME [facility] Last Admin: 10/31/21 20:39 Dose: 15 mg Documented by: Potassium Chloride (Potassium Chloride Er 10 Meq Capsule.Er) 40 meq PO BID [facility] Last Admin: 11/01/21 10:35 Dose: Not Given Documented by: Trazodone HCl (Trazodone Hcl 50 Mg Tablet) 50 mg PO BEDTIME PRN PRN Reason: Insomnia Last Admin: 10/31/21 22:32 Dose: 50 mg Documented by: Allergies Allergies Allergy/AdvReac Type Severity Reaction Status Date / Time No Known Allergies Allergy Unverified 05/01/20 19:42 [No Known Allergies*] Assessment & Plan Assessment & Plan (1) Schizophrenia, paranoid, chronic with acute exacerbation: Status: Acute Code(s): F20.0 - Paranoid schizophrenia (2) Hypertension: Status: Acute Code(s): I10 - Essential (primary) hypertension Plan 66-year-old female with Alzheimer's dementia, behavior disturbance, bipolar disorder, hyperparathyroidism, nephrogenic diabetes insipidus, vitamin-D deficiency, B12 deficiency, hypothyroidism, anxiety, history of femoral vein DVT in August of 2021. She is presently admitted to the psychiatric unit due to decompensated bipolar disorder/psychosis. Plan: Increase Clozaril up to 100 mg po bid and 200 mg po qhs. Enforce compliance. Discontinue Haldol 2 mg po bid Continue affirmation of the healthcare proxy in court Rest the same I spent ___20___ minutes with the patient and/or on the patient floor today, greater than?50% of which was spent counseling/coordinating care. Reason for contiued inpatient stay Substantial Risk for: inability to function, rapid decompensation and med/psych decompensation
[2021-11-01] MEDS: LORazepam 1 MG TABLET PO (11:04)
[2021-11-01] MEDS: LORazepam 0.5 MG TABLET PO (16:08)
[2021-11-01] MEDS: Loperamide HCl 2 MG CAPSULE 4 MG PO (17:04)
[2021-11-01 17:32] LABS: COVID-19 Test Negative (Negative); IDNOW Serial# 55D5AD1C
[2021-11-01 20:00] VITALS: BP 94/50; PULSE 90; TEMP 36.1; O2SAT 96
--- NOTE | 2021-11-02 08:56 | HO.PSYCHPN ---
Subjective Subjective Date of Service: 11/02/21 Reason For Visit: psychotic disorder Interim History: The nursing staff reported the patient has been on one-to-one since yesterday she refused to interact with the staff. Her blood work and vital signs are within normal limits, she has refused medications. On interview the patient rreported not feeling well, so far she has not been compliant with Clozaril for several hours Mental Status Exam Mental Status Exam Patient Appearance: Disheveled Patient Orientation: Person and Situation Patient Behavior: Guarded, Suspicious and Restless Mood Description: Withdrawn Affect Description: Constricted Patient Cognition Impaired: Yes Ability to Follow Directions: Poor Speech Pattern: Clear Hallucinations: Auditory Delusions: Paranoid Ideation Thought Process: Illogical and Evasive Thought Content: positive for [place] and positive for Poverty of Content Judgement: Poor Diagnostics Vital Signs (24Hr): Vital Signs - 24 hr 11/01/21 20:00 Temperature 97 F Pulse Rate 90 Blood Pressure 94/50 L Pulse Oximetry 96 BMI result Body Mass Index 27.0 Labs Results: 10/26/21 07:50 11/01/21 07:05 Labs: Laboratory Results - last 48 hr 11/01/21 11/01/21 11/01/21 06:28 07:05 17:03 Sodium 146 H Potassium 3.9 Chloride 115 H Carbon Dioxide 24 Anion Gap 11 L BUN 10 Creatinine 0.70 Estim Creat Clear Calc 70.0 Estimated GFR > 60 POC Glucose 103 Random Glucose 106 Calcium 10.4 H COVID-19 ([facility]) Negative COVID-19 Clin Com See Note Imaging Radiology Impressions: ITS Impressions Head CT 10/08/21 15:16 IMPRESSION: No acute intracranial pathology. Head CT 10/09/21 13:54 IMPRESSION: No acute intracranial pathology. Pelvic/Transvag US 10/13/21 09:24 IMPRESSION: Abnormally thickened endometrium for a postmenopausal patient measuring 0.9 cm. 3 x 2.7 x 3.7 cm mass in the posterior cervix. This may represent a fibroid. Slightly thickened trabeculated bladder wall. Head CT 10/20/21 08:18 IMPRESSION: No acute intracranial pathology. This critical result was discussed with Dr. Chu at 8:30 hours on 10/20/2021. It was ascertained that the content and urgency of the report was understood at the time of direct communication. Medications Medications Current Medications Acetaminophen (Acetaminophen 325 Mg Tablet) 650 mg PO Q6H PRN PRN Reason: Headache/Pain Mild Scale (1-3) Last Admin: 10/25/21 16:39 Dose: 650 mg Documented by: Al Hydroxide/Mg Hydroxide (Magnesium Hydrox/Alum Hydrox 30 Ml Oral.Susp) 30 ml PO Q6H PRN PRN Reason: Heartburn/Nausea Apixaban (Apixaban 5 Mg Tablet) 5 mg PO BID [facility] Last Admin: 11/01/21 21:04 Dose: Not Given Documented by: Benztropine Mesylate (Benztropine Mesylate 0.5 Mg Tablet) 0.5 mg PO BID [facility] Last Admin: 11/01/21 21:04 Dose: Not Given Documented by: Bisacodyl (Bisacodyl 10 Mg Supp.Rect) 10 mg [place] DAILY PRN PRN Reason: Constipation Last Admin: 10/29/21 05:09 Dose: 10 mg Documented by: Clozapine (Clozapine 100 Mg Tablet) 200 mg PO BEDTIME [facility] Last Admin: 11/01/21 21:04 Dose: Not Given Documented by: Clozapine (Clozapine 100 Mg Tablet) 100 mg PO BID [facility] Last Admin: 11/01/21 21:05 Dose: Not Given Documented by: Desmopressin Acetate (Desmopressin Acetate 0.2 Mg Tablet) 0.2 mg PO BID [facility] Last Admin: 11/02/21 00:25 Dose: Not Given Documented by: Hydrochlorothiazide (Hydrochlorothiazide 25 Mg Tablet) 25 mg PO DAILY [facility]; Protocol Last Admin: 11/01/21 10:23 Dose: 25 mg Documented by: Hydroxyzine HCl (Hydroxyzine Hcl 25 Mg Tablet) 25 mg PO BEDTIME PRN PRN Reason: Anxiety Last Admin: 10/31/21 22:32 Dose: 25 mg Documented by: Loperamide HCl (Loperamide Hcl 2 Mg Capsule) 4 mg PO Q4H PRN PRN Reason: Diarrhea Last Admin: 11/01/21 17:04 Dose: 4 mg Documented by: Lorazepam (Lorazepam 1 Mg Tablet) 1 mg PO Q6H PRN PRN Reason: Anxiety Last Admin: 11/01/21 11:04 Dose: 1 mg Documented by: Lorazepam (Lorazepam 0.5 Mg Tablet) 0.5 mg PO TID [facility] Last Admin: 11/01/21 21:05 Dose: Not Given Documented by: Magnesium Hydroxide (Milk Of Magnesia 30 Ml Oral.Susp) 30 ml PO DAILY PRN PRN Reason: Constipation Last Admin: 10/26/21 20:03 Dose: 30 ml Documented by: Mirtazapine (Mirtazapine 15 Mg Tablet) 15 mg PO BEDTIME [facility] Last Admin: 11/01/21 21:05 Dose: Not Given Documented by: Potassium Chloride (Potassium Chloride Er 10 Meq Capsule.Er) 40 meq PO BID [facility] Last Admin: 11/01/21 21:05 Dose: Not Given Documented by: Trazodone HCl (Trazodone Hcl 50 Mg Tablet) 50 mg PO BEDTIME PRN PRN Reason: Insomnia Last Admin: 10/31/21 22:32 Dose: 50 mg Documented by: Allergies Allergies Allergy/AdvReac Type Severity Reaction Status Date / Time No Known Allergies Allergy Unverified 05/01/20 19:42 [No Known Allergies*] Assessment & Plan Assessment & Plan (1) Schizophrenia, paranoid, chronic with acute exacerbation: Status: Acute Code(s): F20.0 - Paranoid schizophrenia (2) Hypertension: Status: Acute Code(s): I10 - Essential (primary) hypertension Plan 66-year-old female with Alzheimer's dementia, behavior disturbance, bipolar disorder, hyperparathyroidism, nephrogenic diabetes insipidus, vitamin-D deficiency, B12 deficiency, hypothyroidism, anxiety, history of femoral vein DVT in August of 2021. She is presently admitted to the psychiatric unit due to decompensated bipolar disorder/psychosis. Plan: Increase Clozaril up to 100 mg po bid and 200 mg po qhs. Enforce compliance. Discontinue Haldol 2 mg po bid Continue affirmation of the healthcare proxy in court Rest the same I spent ___20___ minutes with the patient and/or on the patient floor today, greater than?50% of which was spent counseling/coordinating care. Reason for contiued inpatient stay Substantial Risk for: inability to function, rapid decompensation and med/psych decompensation
[2021-11-02 08:59] VITALS: BP 94/48; PULSE 96; RESP 14; TEMP 36.1; O2SAT 95
[2021-11-02 18:00] VITALS: BP 122/59; PULSE 119; TEMP 36.8; O2SAT 96
[2021-11-02] MEDS: Acetaminophen 325 MG TABLET 650 MG PO (21:54)
[2021-11-03 06:00] VITALS: BP 100/60; PULSE 84; RESP 14; TEMP 36.7; O2SAT 96
--- NOTE | 2021-11-03 08:10 | HO.PSYCHPN ---
Subjective Subjective Date of Service: 11/03/21 Reason For Visit: psychotic disorder Subjective Notes: Conditional Voluntary Interim History: the nursing staff reported that yesterday the patient was yelling stating that CT is mother at her, she was responding to internal stimuli and. She was incontinent yesterday in the morning. She has taking her medications but on the 2nd shift she refused to take her meds. Last night she slept but became incontinent. The patient wants to have a wheelchair but she is able to mobilized by herself even though that she claims to we week. She was unconscious yesterday but she was easily redirectable. We are waiting for the permission of the healthcare proxies awakened start long-acting injectables. Today we will try Risperdal to see if she has an adverse reaction. On interview the patient was sleeping but later woke up and denied new symptoms she states that she was not doing well with auditory hallucinations. Today, we will have the affirmation of the health care proxy. If the patient tolerates Rsiperdal, we will do Invega Sustenna to assure compliance. Mental Status Exam Mental Status Exam Patient Appearance: Well Grooomed Patient Orientation: Person Level of Consciousness: Awake Patient Behavior: Cooperative Mood Description: Withdrawn Affect Description: Constricted Patient Cognition Impaired: Yes Ability to Follow Directions: Fair Speech Pattern: Clear Hallucinations: Auditory and Visual Delusions: Paranoid Ideation and Ideas of Reference Thought Process: Illogical Thought Content: positive for [place] and positive for Thought Blocking Judgement: Fair Diagnostics Vital Signs (24Hr): Vital Signs - 24 hr 11/02/21 08:59 11/02/21 18:00 Temperature 97.0 F 98.2 F Pulse Rate 96 119 H Respiratory Rate 14 Blood Pressure 94/48 L 122/59 L Pulse Oximetry 95 96 BMI result Body Mass Index 27.0 Labs Results: 10/26/21 07:50 11/01/21 07:05 Labs: Laboratory Results - last 48 hr 11/01/21 17:03 COVID-19 ([facility]) Negative COVID-19 Clin Com See Note Imaging Radiology Impressions: ITS Impressions Head CT 10/08/21 15:16 IMPRESSION: No acute intracranial pathology. Head CT 10/09/21 13:54 IMPRESSION: No acute intracranial pathology. Pelvic/Transvag US 10/13/21 09:24 IMPRESSION: Abnormally thickened endometrium for a postmenopausal patient measuring 0.9 cm. 3 x 2.7 x 3.7 cm mass in the posterior cervix. This may represent a fibroid. Slightly thickened trabeculated bladder wall. Head CT 10/20/21 08:18 IMPRESSION: No acute intracranial pathology. This critical result was discussed with Dr. Chu at 8:30 hours on 10/20/2021. It was ascertained that the content and urgency of the report was understood at the time of direct communication. Medications Medications Current Medications Acetaminophen (Acetaminophen 325 Mg Tablet) 650 mg PO Q6H PRN PRN Reason: Headache/Pain Mild Scale (1-3) Last Admin: 11/02/21 21:54 Dose: 650 mg Documented by: Al Hydroxide/Mg Hydroxide (Magnesium Hydrox/Alum Hydrox 30 Ml Oral.Susp) 30 ml PO Q6H PRN PRN Reason: Heartburn/Nausea Apixaban (Apixaban 5 Mg Tablet) 5 mg PO BID [facility] Last Admin: 11/02/21 22:03 Dose: Not Given Documented by: Benztropine Mesylate (Benztropine Mesylate 0.5 Mg Tablet) 0.5 mg PO BID [facility] Last Admin: 11/02/21 22:03 Dose: Not Given Documented by: Bisacodyl (Bisacodyl 10 Mg Supp.Rect) 10 mg [place] DAILY PRN PRN Reason: Constipation Last Admin: 10/29/21 05:09 Dose: 10 mg Documented by: Clozapine (Clozapine 100 Mg Tablet) 200 mg PO BEDTIME [facility] Last Admin: 11/02/21 22:03 Dose: Not Given Documented by: Clozapine (Clozapine 100 Mg Tablet) 100 mg PO BID [facility] Last Admin: 11/02/21 22:03 Dose: Not Given Documented by: Desmopressin Acetate (Desmopressin Acetate 0.2 Mg Tablet) 0.2 mg PO BID [facility] Last Admin: 11/02/21 22:04 Dose: Not Given Documented by: Hydrochlorothiazide (Hydrochlorothiazide 25 Mg Tablet) 25 mg PO DAILY [facility]; Protocol Last Admin: 11/02/21 10:01 Dose: Not Given Documented by: Hydroxyzine HCl (Hydroxyzine Hcl 25 Mg Tablet) 25 mg PO BEDTIME PRN PRN Reason: Anxiety Last Admin: 10/31/21 22:32 Dose: 25 mg Documented by: Loperamide HCl (Loperamide Hcl 2 Mg Capsule) 4 mg PO Q4H PRN PRN Reason: Diarrhea Last Admin: 11/01/21 17:04 Dose: 4 mg Documented by: Lorazepam (Lorazepam 1 Mg Tablet) 1 mg PO Q6H PRN PRN Reason: Anxiety Last Admin: 11/01/21 11:04 Dose: 1 mg Documented by: Lorazepam (Lorazepam 0.5 Mg Tablet) 0.5 mg PO TID [facility] Last Admin: 11/02/21 22:04 Dose: Not Given Documented by: Magnesium Hydroxide (Milk Of Magnesia 30 Ml Oral.Susp) 30 ml PO DAILY PRN PRN Reason: Constipation Last Admin: 10/26/21 20:03 Dose: 30 ml Documented by: Mirtazapine (Mirtazapine 15 Mg Tablet) 15 mg PO BEDTIME [facility] Last Admin: 11/02/21 22:04 Dose: Not Given Documented by: Potassium Chloride (Potassium Chloride Er 10 Meq Capsule.Er) 40 meq PO BID [facility] Last Admin: 11/02/21 22:04 Dose: Not Given Documented by: Trazodone HCl (Trazodone Hcl 50 Mg Tablet) 50 mg PO BEDTIME PRN PRN Reason: Insomnia Last Admin: 10/31/21 22:32 Dose: 50 mg Documented by: Allergies Allergies Allergy/AdvReac Type Severity Reaction Status Date / Time No Known Allergies Allergy Unverified 05/01/20 19:42 [No Known Allergies*] Assessment & Plan Assessment & Plan (1) Schizophrenia, paranoid, chronic with acute exacerbation: Status: Acute Code(s): F20.0 - Paranoid schizophrenia (2) Hypertension: Status: Acute Code(s): I10 - Essential (primary) hypertension Plan 66-year-old female with Alzheimer's dementia, behavior disturbance, bipolar disorder, hyperparathyroidism, nephrogenic diabetes insipidus, vitamin-D deficiency, B12 deficiency, hypothyroidism, anxiety, history of femoral vein DVT in August of 2021. She is presently admitted to the psychiatric unit due to decompensated bipolar disorder/psychosis. Plan: Increase Clozaril up to 100 mg po bid and 200 mg po qhs. Enforce compliance. Discontinue Haldol 2 mg po bid Continue affirmation of the healthcare proxy in court Start Risperdal to see if she has an adverse reaction Rest the same I spent __20____ minutes with the patient and/or on the patient floor today, greater than?50% of which was spent counseling/coordinating care. Reason for contiued inpatient stay Substantial Risk for: inability to function, rapid decompensation and med/psych decompensation
[2021-11-03] MEDS: LORazepam 0.5 MG TABLET PO ×2 (15:43→20:34)
[2021-11-03 20:30] VITALS: BP 98/52; PULSE 91; RESP 16; TEMP 36.7; O2SAT 96
[2021-11-03] MEDS: cloZAPine 100 MG TABLET 200 MG PO (20:33)
[2021-11-03] MEDS: Desmopressin Acetate 0.2 MG TABLET PO (20:34)
[2021-11-03] MEDS: Apixaban 5 MG TABLET PO (20:34)
[2021-11-03] MEDS: cloZAPine 100 MG TABLET PO (20:34)
[2021-11-03] MEDS: Mirtazapine 15 MG TABLET PO (20:34)
[2021-11-03] MEDS: Benztropine Mesylate 0.5 MG TABLET PO (20:34)
[2021-11-03] MEDS: risperiDONE 1 MG TABLET PO (20:34)
[2021-11-03] MEDS: traZODone HCL 50 MG TABLET PO (23:54)
[2021-11-03] MEDS: hydrOXYzine HCL 25 MG TABLET PO (23:54)
[2021-11-04 08:00] VITALS: BP 113/58; PULSE 97; RESP 14; TEMP 36.6; O2SAT 94
--- NOTE | 2021-11-04 08:29 | P.PNPSI_ITS ---
Subjective Subjective Date of Service: 11/04/21 Reason For Visit: psychotic disorder Subjective Notes: Conditional Voluntary Interim History: The nursing staff reported that the patient has being is slightly better. Last night she took all her medications and stated that her daughter is going to get pretty soon and she wants to be in good shape. She was incontinent of urine. On interview, the patient was very sleepy, she feels better but still she has auditory hallucinations. She has been fully compliant with Clozaril for less than 24 hours. Mental Status Exam Mental Status Exam Patient Appearance: Appropriate Patient Orientation: Person Level of Consciousness: Awake Patient Behavior: Cooperative Mood Description: Constricted Affect Description: Constricted Patient Cognition Impaired: Yes Ability to Follow Directions: Good Speech Pattern: Clear Hallucinations: Auditory Delusions: Paranoid Ideation Thought Process: Illogical Thought Content: positive for [place] and positive for Poverty of Content Judgement: Fair Diagnostics Vital Signs (24Hr): Vital Signs - 24 hr 11/03/21 20:30 Temperature 98.1 F Pulse Rate 91 Respiratory Rate 16 Blood Pressure 98/52 L Pulse Oximetry 96 BMI result Body Mass Index 27.0 Labs Results: 10/26/21 07:50 11/01/21 07:05 Imaging Radiology Impressions: ITS Impressions Head CT 10/08/21 15:16 IMPRESSION: No acute intracranial pathology. Head CT 10/09/21 13:54 IMPRESSION: No acute intracranial pathology. Pelvic/Transvag US 10/13/21 09:24 IMPRESSION: Abnormally thickened endometrium for a postmenopausal patient measuring 0.9 cm. 3 x 2.7 x 3.7 cm mass in the posterior cervix. This may represent a fibroid. Slightly thickened trabeculated bladder wall. Head CT 10/20/21 08:18 IMPRESSION: No acute intracranial pathology. This critical result was discussed with Dr. Chu at 8:30 hours on 10/20/2021. It was ascertained that the content and urgency of the report was understood at the time of direct communication. Medications Medications Current Medications Acetaminophen (Acetaminophen 325 Mg Tablet) 650 mg PO Q6H PRN PRN Reason: Headache/Pain Mild Scale (1-3) Last Admin: 11/02/21 21:54 Dose: 650 mg Documented by: Al Hydroxide/Mg Hydroxide (Magnesium Hydrox/Alum Hydrox 30 Ml Oral.Susp) 30 ml PO Q6H PRN PRN Reason: Heartburn/Nausea Apixaban (Apixaban 5 Mg Tablet) 5 mg PO BID [facility] Last Admin: 11/03/21 20:34 Dose: 5 mg Documented by: Benztropine Mesylate (Benztropine Mesylate 0.5 Mg Tablet) 0.5 mg PO BID [facility] Last Admin: 11/03/21 20:34 Dose: 0.5 mg Documented by: Bisacodyl (Bisacodyl 10 Mg Supp.Rect) 10 mg [place] DAILY PRN PRN Reason: Constipation Last Admin: 10/29/21 05:09 Dose: 10 mg Documented by: Clozapine (Clozapine 100 Mg Tablet) 200 mg PO BEDTIME [facility] Last Admin: 11/03/21 20:33 Dose: 200 mg Documented by: Clozapine (Clozapine 100 Mg Tablet) 100 mg PO BID [facility] Last Admin: 11/03/21 20:34 Dose: 100 mg Documented by: Desmopressin Acetate (Desmopressin Acetate 0.2 Mg Tablet) 0.2 mg PO BID [facility] Last Admin: 11/03/21 20:34 Dose: 0.2 mg Documented by: Hydrochlorothiazide (Hydrochlorothiazide 25 Mg Tablet) 25 mg PO DAILY [facility]; Protocol Last Admin: 11/03/21 09:49 Dose: Not Given Documented by: Hydroxyzine HCl (Hydroxyzine Hcl 25 Mg Tablet) 25 mg PO BEDTIME PRN PRN Reason: Anxiety Last Admin: 11/03/21 23:54 Dose: 25 mg Documented by: Loperamide HCl (Loperamide Hcl 2 Mg Capsule) 4 mg PO Q4H PRN PRN Reason: Diarrhea Last Admin: 11/01/21 17:04 Dose: 4 mg Documented by: Lorazepam (Lorazepam 1 Mg Tablet) 1 mg PO Q6H PRN PRN Reason: Anxiety Last Admin: 11/01/21 11:04 Dose: 1 mg Documented by: Lorazepam (Lorazepam 0.5 Mg Tablet) 0.5 mg PO TID [facility] Last Admin: 11/03/21 20:34 Dose: 0.5 mg Documented by: Magnesium Hydroxide (Milk Of Magnesia 30 Ml Oral.Susp) 30 ml PO DAILY PRN PRN Reason: Constipation Last Admin: 10/26/21 20:03 Dose: 30 ml Documented by: Mirtazapine (Mirtazapine 15 Mg Tablet) 15 mg PO BEDTIME [facility] Last Admin: 11/03/21 20:34 Dose: 15 mg Documented by: Potassium Chloride (Potassium Chloride Er 10 Meq Capsule.Er) 40 meq PO BID [facility] Last Admin: 11/03/21 20:34 Dose: 40 meq Documented by: Risperidone (Risperidone 1 Mg Tablet) 1 mg PO BID [facility] Last Admin: 11/03/21 20:34 Dose: 1 mg Documented by: Trazodone HCl (Trazodone Hcl 50 Mg Tablet) 50 mg PO BEDTIME PRN PRN Reason: Insomnia Last Admin: 11/03/21 23:54 Dose: 50 mg Documented by: Allergies Allergies Allergy/AdvReac Type Severity Reaction Status Date / Time No Known Allergies Allergy Unverified 05/01/20 19:42 [No Known Allergies*] Assessment & Plan Assessment & Plan (1) Schizophrenia, paranoid, chronic with acute exacerbation: Status: Acute Code(s): F20.0 - Paranoid schizophrenia (2) Hypertension: Status: Acute Code(s): I10 - Essential (primary) hypertension Plan 66-year-old female with Alzheimer's dementia, behavior disturbance, bipolar disorder, hyperparathyroidism, nephrogenic diabetes insipidus, vitamin-D deficiency, B12 deficiency, hypothyroidism, anxiety, history of femoral vein DVT in August of 2021. She is presently admitted to the psychiatric unit due to decompensated bipolar disorder/psychosis. Plan: Increase Clozaril up to 100 mg po bid and 200 mg po qhs. Enforce compliance. Discontinue Haldol 2 mg po bid Continue affirmation of the healthcare proxy in court Start Risperdal to see if she has an adverse reaction Rest the same I spent ___20___ minutes with the patient and/or on the patient floor today, greater than?50% of which was spent counseling/coordinating care. Informed Consent: further education needed Reason for contiued inpatient stay Substantial Risk for: inability to function, rapid decompensation and med/psych decompensation
[2021-11-04 09:01] LABS: Neut%MD 62.2 %; Neutrophils Absolute Auto 2.6 x10*3/uL (2.0-8.3); WBCANC 4.2 X10*3/uL
[2021-11-04] MEDS: Benztropine Mesylate 0.5 MG TABLET PO ×2 (09:49→20:16)
[2021-11-04] MEDS: Desmopressin Acetate 0.2 MG TABLET PO ×2 (09:49→20:15)
[2021-11-04] MEDS: risperiDONE 1 MG TABLET PO ×2 (09:49→20:16)
[2021-11-04] MEDS: hydroCHLOROthiazide 25 MG TABLET PO (09:49)
[2021-11-04] MEDS: cloZAPine 100 MG TABLET PO ×2 (09:49→20:16)
[2021-11-04] MEDS: Apixaban 5 MG TABLET PO ×2 (09:49→20:16)
[2021-11-04] MEDS: LORazepam 0.5 MG TABLET PO ×2 (09:49→20:16)
[2021-11-04] MEDS: LORazepam 1 MG TABLET PO (10:56)
[2021-11-04 20:05] VITALS: BP 109/56; PULSE 100; RESP 16; TEMP 36.4; O2SAT 96
[2021-11-04] MEDS: cloZAPine 100 MG TABLET 200 MG PO (20:16)
[2021-11-04] MEDS: Mirtazapine 15 MG TABLET PO (20:16)
[2021-11-04] MEDS: Acetaminophen 325 MG TABLET 650 MG PO (20:23)
--- NOTE | 2021-11-05 08:26 | HO.PSYCHPN ---
Subjective Subjective Date of Service: 11/05/21 Reason For Visit: psychotic disorder Subjective Notes: Conditional Voluntary Interim History: The nursing staff reported that the patient has being having auditory hallucinations and she complained that she cannot take it anymore. She has been compliant with medications at this moment. The nursing staff reported that was incontinent of urine in the evening. On interview the patient reported auditory hallucinations and paranoia and she agreed to try Invega Sustenna. Her HCP was affirmed by court yesterday. The patient has been partially compliant with Clozaril, on and off for several days but historically, she had Clozaril 100 mg po without oversedation. At this moment, it is safe to restart Clozaril at her target dose. Mental Status Exam Mental Status Exam Patient Appearance: Disheveled Patient Orientation: Person Level of Consciousness: Awake Patient Behavior: Cooperative Mood Description: Suspicious and Withdrawn Affect Description: Constricted Patient Cognition Impaired: No Ability to Follow Directions: Good Speech Pattern: Appropriate Hallucinations: Auditory and Visual Delusions: Paranoid Ideation Perceptual Disturbances: Hallucinations Thought Process: Illogical and Evasive Thought Content: positive for [place], positive for [place] and positive for Poverty of Content Judgement: Fair Diagnostics Vital Signs (24Hr): Vital Signs - 24 hr 11/04/21 20:05 Temperature 97.6 F Pulse Rate 100 Respiratory Rate 16 Blood Pressure 109/56 L Pulse Oximetry 96 BMI result Body Mass Index 27.0 Labs Results: 10/26/21 07:50 11/01/21 07:05 Labs: Laboratory Results - last 48 hr 11/04/21 08:46 Absolute Neuts (auto) 2.6 Imaging Radiology Impressions: ITS Impressions Head CT 10/08/21 15:16 IMPRESSION: No acute intracranial pathology. Head CT 10/09/21 13:54 IMPRESSION: No acute intracranial pathology. Pelvic/Transvag US 10/13/21 09:24 IMPRESSION: Abnormally thickened endometrium for a postmenopausal patient measuring 0.9 cm. 3 x 2.7 x 3.7 cm mass in the posterior cervix. This may represent a fibroid. Slightly thickened trabeculated bladder wall. Head CT 10/20/21 08:18 IMPRESSION: No acute intracranial pathology. This critical result was discussed with Dr. Chu at 8:30 hours on 10/20/2021. It was ascertained that the content and urgency of the report was understood at the time of direct communication. Medications Medications Current Medications Acetaminophen (Acetaminophen 325 Mg Tablet) 650 mg PO Q6H PRN PRN Reason: Headache/Pain Mild Scale (1-3) Last Admin: 11/04/21 20:23 Dose: 650 mg Documented by: Al Hydroxide/Mg Hydroxide (Magnesium Hydrox/Alum Hydrox 30 Ml Oral.Susp) 30 ml PO Q6H PRN PRN Reason: Heartburn/Nausea Apixaban (Apixaban 5 Mg Tablet) 5 mg PO BID [facility] Last Admin: 11/04/21 20:16 Dose: 5 mg Documented by: Benztropine Mesylate (Benztropine Mesylate 0.5 Mg Tablet) 0.5 mg PO BID [facility] Last Admin: 11/04/21 20:16 Dose: 0.5 mg Documented by: Bisacodyl (Bisacodyl 10 Mg Supp.Rect) 10 mg [place] DAILY PRN PRN Reason: Constipation Last Admin: 10/29/21 05:09 Dose: 10 mg Documented by: Clozapine (Clozapine 100 Mg Tablet) 200 mg PO BEDTIME [facility] Last Admin: 11/04/21 20:16 Dose: 200 mg Documented by: Clozapine (Clozapine 100 Mg Tablet) 100 mg PO BID [facility] Last Admin: 11/04/21 20:16 Dose: 100 mg Documented by: Desmopressin Acetate (Desmopressin Acetate 0.2 Mg Tablet) 0.2 mg PO BID [facility] Last Admin: 11/04/21 20:15 Dose: 0.2 mg Documented by: Hydrochlorothiazide (Hydrochlorothiazide 25 Mg Tablet) 25 mg PO DAILY [facility]; Protocol Last Admin: 11/04/21 09:49 Dose: 25 mg Documented by: Hydroxyzine HCl (Hydroxyzine Hcl 25 Mg Tablet) 25 mg PO BEDTIME PRN PRN Reason: Anxiety Last Admin: 11/03/21 23:54 Dose: 25 mg Documented by: Loperamide HCl (Loperamide Hcl 2 Mg Capsule) 4 mg PO Q4H PRN PRN Reason: Diarrhea Last Admin: 11/01/21 17:04 Dose: 4 mg Documented by: Lorazepam (Lorazepam 1 Mg Tablet) 1 mg PO Q6H PRN PRN Reason: Anxiety Last Admin: 11/04/21 10:56 Dose: 1 mg Documented by: Lorazepam (Lorazepam 0.5 Mg Tablet) 0.5 mg PO TID [facility] Last Admin: 11/04/21 20:16 Dose: 0.5 mg Documented by: Magnesium Hydroxide (Milk Of Magnesia 30 Ml Oral.Susp) 30 ml PO DAILY PRN PRN Reason: Constipation Last Admin: 10/26/21 20:03 Dose: 30 ml Documented by: Mirtazapine (Mirtazapine 15 Mg Tablet) 15 mg PO BEDTIME [facility] Last Admin: 11/04/21 20:16 Dose: 15 mg Documented by: Potassium Chloride (Potassium Chloride Er 10 Meq Capsule.Er) 40 meq PO BID [facility] Last Admin: 11/04/21 20:15 Dose: 40 meq Documented by: Risperidone (Risperidone 1 Mg Tablet) 1 mg PO BID [facility] Last Admin: 11/04/21 20:16 Dose: 1 mg Documented by: Trazodone HCl (Trazodone Hcl 50 Mg Tablet) 50 mg PO BEDTIME PRN PRN Reason: Insomnia Last Admin: 11/03/21 23:54 Dose: 50 mg Documented by: Allergies Allergies Allergy/AdvReac Type Severity Reaction Status Date / Time No Known Allergies Allergy Unverified 05/01/20 19:42 [No Known Allergies*] Assessment & Plan Assessment & Plan (1) Schizophrenia, paranoid, chronic with acute exacerbation: Status: Acute Code(s): F20.0 - Paranoid schizophrenia (2) Hypertension: Status: Acute Code(s): I10 - Essential (primary) hypertension Plan 66-year-old female with Alzheimer's dementia, behavior disturbance, bipolar disorder, hyperparathyroidism, nephrogenic diabetes insipidus, vitamin-D deficiency, B12 deficiency, hypothyroidism, anxiety, history of femoral vein DVT in August of 2021. She is presently admitted to the psychiatric unit due to decompensated bipolar disorder/psychosis. Plan: Keep Clozaril to 100 mg po bid and 200 mg po qhs. Enforce compliance. Start Invega Sustenna 234 mg im today. I spent __20____ minutes with the patient and/or on the patient floor today, greater than?50% of which was spent counseling/coordinating care. Reason for contiued inpatient stay Substantial Risk for: inability to function, rapid decompensation and med/psych decompensation
[2021-11-05] MEDS: LORazepam 0.5 MG TABLET PO ×2 (10:35→16:45)
[2021-11-05] MEDS: hydroCHLOROthiazide 25 MG TABLET PO (10:35)
[2021-11-05] MEDS: cloZAPine 100 MG TABLET PO (10:35)
[2021-11-05] MEDS: Benztropine Mesylate 0.5 MG TABLET PO (10:35)
[2021-11-05] MEDS: Apixaban 5 MG TABLET PO (10:35)
[2021-11-05] MEDS: Desmopressin Acetate 0.2 MG TABLET PO (10:35)
[2021-11-05] MEDS: risperiDONE 1 MG TABLET PO (10:36)
[2021-11-05] MEDS: Paliperidone Palmitate 234 MG/1.5 ML SYRINGE IM (14:14)
[2021-11-05 18:00] VITALS: BP 108/51; PULSE 108; RESP 16; TEMP 36.7; O2SAT 97
[2021-11-06] MEDS: LORazepam 0.5 MG TABLET PO (09:51)
[2021-11-06] MEDS: risperiDONE 1 MG TABLET PO ×2 (09:51→20:29)
[2021-11-06] MEDS: Desmopressin Acetate 0.2 MG TABLET PO ×2 (09:51→20:29)
[2021-11-06] MEDS: cloZAPine 100 MG TABLET PO ×2 (09:51→20:28)
[2021-11-06] MEDS: Apixaban 5 MG TABLET PO ×2 (09:51→20:29)
[2021-11-06] MEDS: Benztropine Mesylate 0.5 MG TABLET PO ×3 (09:51→20:29)
[2021-11-06] MEDS: hydroCHLOROthiazide 25 MG TABLET PO (09:51)
--- NOTE | 2021-11-06 13:02 | HO.PSYCHPN ---
Subjective Subjective Date of Service: 11/06/21 Reason For Visit: psychotic disorder Subjective Notes: Conditional Voluntary Interim History: The nursing staff reported the patient refused her HS medications but she took a Invega Sustenna IM yesterday. She complained of auditory hallucinations and paranoia. On interview the patient stated that she still hearing voices we will reassess after a few days when the level of Invega Sustenna is on a therapeutic range. On physical exam the patient has tremors and mild cogwheeling Mental Status Exam Mental Status Exam Patient Appearance: Well Grooomed Patient Orientation: Person Level of Consciousness: Awake Patient Behavior: Cooperative Mood Description: Withdrawn Affect Description: Constricted Patient Cognition Impaired: Yes Ability to Follow Directions: Good Speech Pattern: Clear Hallucinations: Auditory Delusions: Paranoid Ideation and Ideas of Reference Thought Process: Illogical Thought Content: positive for [place] Judgement: Fair Diagnostics Vital Signs (24Hr): Vital Signs - 24 hr 11/05/21 18:00 Temperature 98.0 F Pulse Rate 108 H Respiratory Rate 16 Blood Pressure 108/51 L Pulse Oximetry 97 BMI result Body Mass Index 27.0 Labs Results: 10/26/21 07:50 11/01/21 07:05 Imaging Radiology Impressions: ITS Impressions Head CT 10/08/21 15:16 IMPRESSION: No acute intracranial pathology. Head CT 10/09/21 13:54 IMPRESSION: No acute intracranial pathology. Pelvic/Transvag US 10/13/21 09:24 IMPRESSION: Abnormally thickened endometrium for a postmenopausal patient measuring 0.9 cm. 3 x 2.7 x 3.7 cm mass in the posterior cervix. This may represent a fibroid. Slightly thickened trabeculated bladder wall. Head CT 10/20/21 08:18 IMPRESSION: No acute intracranial pathology. This critical result was discussed with Dr. Chu at 8:30 hours on 10/20/2021. It was ascertained that the content and urgency of the report was understood at the time of direct communication. Medications Medications Current Medications Acetaminophen (Acetaminophen 325 Mg Tablet) 650 mg PO Q6H PRN PRN Reason: Headache/Pain Mild Scale (1-3) Last Admin: 11/04/21 20:23 Dose: 650 mg Documented by: Al Hydroxide/Mg Hydroxide (Magnesium Hydrox/Alum Hydrox 30 Ml Oral.Susp) 30 ml PO Q6H PRN PRN Reason: Heartburn/Nausea Apixaban (Apixaban 5 Mg Tablet) 5 mg PO BID [facility] Last Admin: 11/06/21 09:51 Dose: 5 mg Documented by: Benztropine Mesylate (Benztropine Mesylate 0.5 Mg Tablet) 0.5 mg PO BID [facility] Last Admin: 11/06/21 09:51 Dose: 0.5 mg Documented by: Bisacodyl (Bisacodyl 10 Mg Supp.Rect) 10 mg [place] DAILY PRN PRN Reason: Constipation Last Admin: 10/29/21 05:09 Dose: 10 mg Documented by: Clozapine (Clozapine 100 Mg Tablet) 200 mg PO BEDTIME [facility] Last Admin: 11/05/21 21:53 Dose: Not Given Documented by: Clozapine (Clozapine 100 Mg Tablet) 100 mg PO BID [facility] Last Admin: 11/06/21 09:51 Dose: 100 mg Documented by: Desmopressin Acetate (Desmopressin Acetate 0.2 Mg Tablet) 0.2 mg PO BID [facility] Last Admin: 11/06/21 09:51 Dose: 0.2 mg Documented by: Hydrochlorothiazide (Hydrochlorothiazide 25 Mg Tablet) 25 mg PO DAILY [facility]; Protocol Last Admin: 11/06/21 09:51 Dose: 25 mg Documented by: Hydroxyzine HCl (Hydroxyzine Hcl 25 Mg Tablet) 25 mg PO BEDTIME PRN PRN Reason: Anxiety Last Admin: 11/03/21 23:54 Dose: 25 mg Documented by: Loperamide HCl (Loperamide Hcl 2 Mg Capsule) 4 mg PO Q4H PRN PRN Reason: Diarrhea Last Admin: 11/01/21 17:04 Dose: 4 mg Documented by: Lorazepam (Lorazepam 0.5 Mg Tablet) 0.5 mg PO TID [facility] Last Admin: 11/06/21 09:51 Dose: 0.5 mg Documented by: Magnesium Hydroxide (Milk Of Magnesia 30 Ml Oral.Susp) 30 ml PO DAILY PRN PRN Reason: Constipation Last Admin: 10/26/21 20:03 Dose: 30 ml Documented by: Mirtazapine (Mirtazapine 15 Mg Tablet) 15 mg PO BEDTIME [facility] Last Admin: 11/05/21 21:53 Dose: Not Given Documented by: Potassium Chloride (Potassium Chloride Er 10 Meq Capsule.Er) 40 meq PO BID [facility] Last Admin: 11/06/21 09:49 Dose: 40 meq Documented by: Risperidone (Risperidone 1 Mg Tablet) 1 mg PO BID [facility] Last Admin: 11/06/21 09:51 Dose: 1 mg Documented by: Trazodone HCl (Trazodone Hcl 50 Mg Tablet) 50 mg PO BEDTIME PRN PRN Reason: Insomnia Last Admin: 11/03/21 23:54 Dose: 50 mg Documented by: Allergies Allergies Allergy/AdvReac Type Severity Reaction Status Date / Time No Known Allergies Allergy Unverified 05/01/20 19:42 [No Known Allergies*] Assessment & Plan Assessment & Plan (1) Schizophrenia, paranoid, chronic with acute exacerbation: Status: Acute Code(s): F20.0 - Paranoid schizophrenia (2) Hypertension: Status: Acute Code(s): I10 - Essential (primary) hypertension Plan 66-year-old female with Alzheimer's dementia, behavior disturbance, bipolar disorder, hyperparathyroidism, nephrogenic diabetes insipidus, vitamin-D deficiency, B12 deficiency, hypothyroidism, anxiety, history of femoral vein DVT in August of 2021. She is presently admitted to the psychiatric unit due to decompensated bipolar disorder/psychosis. Plan: Keep Clozaril to 100 mg po bid and 200 mg po qhs. Enforce compliance. Invega Sustenna 156 mg im in 5 days Increase Cogentin to t.i.d. I spent ___20___ minutes with the patient and/or on the patient floor today, greater than?50% of which was spent counseling/coordinating care. Reason for contiued inpatient stay Substantial Risk for: inability to function, rapid decompensation and med/psych decompensation
[2021-11-06 18:00] VITALS: BP 126/59; PULSE 98; RESP 16; TEMP 36.3; O2SAT 100
[2021-11-06] MEDS: cloZAPine 100 MG TABLET 200 MG PO (20:28)
[2021-11-06] MEDS: Mirtazapine 15 MG TABLET PO (20:29)
[2021-11-06] MEDS: traZODone HCL 50 MG TABLET PO ×2 (21:20→23:33)
--- NOTE | 2021-11-07 00:36 | PC.NURSE ---
Pt was noted to have some drooling this evening while watching tv. Passed on to days in report to make aware.
[2021-11-07 12:00] VITALS: BP 123/72; PULSE 112; RESP 18; TEMP 36.5; O2SAT 95
[2021-11-07] MEDS: risperiDONE 1 MG TABLET PO ×2 (12:49→20:15)
[2021-11-07] MEDS: Benztropine Mesylate 0.5 MG TABLET PO ×2 (14:48→20:14)
--- NOTE | 2021-11-07 17:24 | HO.PSYCHPN ---
Subjective Subjective Date of Service: 11/07/21 Reason For Visit: psychotic disorder Subjective Notes: Conditional Voluntary Healthcare Proxy: Yes Medical Problems Affecting Mental Status: No Interim History: Discussed with Nursing. Met with patient. On one-to-one observation for fall risk. On clozapine and started Invega long-acting injectable. Still hallucinating at times. With repairer typewriter did not engage. Minimal interaction stating she was okay and had nno questions. Appears to sleep more in the morning times. Has been drinking fluids. Medication Compliance: Yes Side effects from medications: No Attending Groups: No Review of Systems Acute medical concerns: No Review of Systems Review of Systems No significant change Mental Status Exam Mental Status Exam Narrative: one-to-one observer for fall risk. in bed. Was sleeping. On wakening minimal interaction but did state she had no questions and felt okay. No evidence of SI or HI. As per staff has been hallucinating. Insight and judgment limited Diagnostics Vital Signs (24Hr): Vital Signs - 24 hr 11/06/21 18:00 11/07/21 12:00 Temperature 97.4 F 97.7 F Pulse Rate 98 112 H Respiratory Rate 16 18 Blood Pressure 126/59 L 123/72 Pulse Oximetry 100 95 BMI result Body Mass Index 27.0 Labs Results: 10/26/21 07:50 11/01/21 07:05 Imaging Radiology Impressions: ITS Impressions Head CT 10/08/21 15:16 IMPRESSION: No acute intracranial pathology. Head CT 10/09/21 13:54 IMPRESSION: No acute intracranial pathology. Pelvic/Transvag US 10/13/21 09:24 IMPRESSION: Abnormally thickened endometrium for a postmenopausal patient measuring 0.9 cm. 3 x 2.7 x 3.7 cm mass in the posterior cervix. This may represent a fibroid. Slightly thickened trabeculated bladder wall. Head CT 10/20/21 08:18 IMPRESSION: No acute intracranial pathology. This critical result was discussed with Dr. Chu at 8:30 hours on 10/20/2021. It was ascertained that the content and urgency of the report was understood at the time of direct communication. Medications Medications Current Medications Acetaminophen (Acetaminophen 325 Mg Tablet) 650 mg PO Q6H PRN PRN Reason: Headache/Pain Mild Scale (1-3) Last Admin: 11/04/21 20:23 Dose: 650 mg Documented by: Al Hydroxide/Mg Hydroxide (Magnesium Hydrox/Alum Hydrox 30 Ml Oral.Susp) 30 ml PO Q6H PRN PRN Reason: Heartburn/Nausea Apixaban (Apixaban 5 Mg Tablet) 5 mg PO BID [facility] Last Admin: 11/07/21 12:46 Dose: Not Given Documented by: Benztropine Mesylate (Benztropine Mesylate 0.5 Mg Tablet) 0.5 mg PO TID [facility] Last Admin: 11/07/21 14:48 Dose: 0.5 mg Documented by: Bisacodyl (Bisacodyl 10 Mg Supp.Rect) 10 mg [place] DAILY PRN PRN Reason: Constipation Last Admin: 10/29/21 05:09 Dose: 10 mg Documented by: Clozapine (Clozapine 100 Mg Tablet) 200 mg PO BEDTIME [facility] Last Admin: 11/06/21 20:28 Dose: 200 mg Documented by: Clozapine (Clozapine 100 Mg Tablet) 100 mg PO BID [facility] Last Admin: 11/07/21 12:47 Dose: Not Given Documented by: Desmopressin Acetate (Desmopressin Acetate 0.2 Mg Tablet) 0.2 mg PO BID [facility] Last Admin: 11/07/21 12:47 Dose: Not Given Documented by: Hydrochlorothiazide (Hydrochlorothiazide 25 Mg Tablet) 25 mg PO DAILY [facility]; Protocol Last Admin: 11/07/21 12:47 Dose: Not Given Documented by: Hydroxyzine HCl (Hydroxyzine Hcl 25 Mg Tablet) 25 mg PO BEDTIME PRN PRN Reason: Anxiety Last Admin: 11/03/21 23:54 Dose: 25 mg Documented by: Hydroxyzine HCl (Hydroxyzine Hcl 25 Mg Tablet) 25 mg PO BID PRN PRN Reason: Anxiety Loperamide HCl (Loperamide Hcl 2 Mg Capsule) 4 mg PO Q4H PRN PRN Reason: Diarrhea Last Admin: 11/01/21 17:04 Dose: 4 mg Documented by: Magnesium Hydroxide (Milk Of Magnesia 30 Ml Oral.Susp) 30 ml PO DAILY PRN PRN Reason: Constipation Last Admin: 10/26/21 20:03 Dose: 30 ml Documented by: Mirtazapine (Mirtazapine 15 Mg Tablet) 15 mg PO BEDTIME [facility] Last Admin: 11/06/21 20:29 Dose: 15 mg Documented by: Paliperidone Palmitate (Paliperidone Palmitate 156 Mg/Ml Syringe) 156 mg IM ONCE@1000 [facility] Stop: 11/11/21 10:01 Potassium Chloride (Potassium Chloride Er 10 Meq Capsule.Er) 40 meq PO BID [facility] Last Admin: 11/07/21 12:49 Dose: 40 meq Documented by: Risperidone (Risperidone 1 Mg Tablet) 1 mg PO BID [facility] Last Admin: 11/07/21 12:49 Dose: 1 mg Documented by: Trazodone HCl (Trazodone Hcl 50 Mg Tablet) 50 mg PO BEDTIME PRN PRN Reason: Insomnia Last Admin: 11/06/21 23:33 Dose: 50 mg Documented by: Allergies Allergies Allergy/AdvReac Type Severity Reaction Status Date / Time No Known Allergies Allergy Unverified 05/01/20 19:42 [No Known Allergies*] Assessment & Plan Assessment & Plan (1) Schizophrenia, paranoid, chronic with acute exacerbation: Status: Acute Code(s): F20.0 - Paranoid schizophrenia (2) Hypertension: Status: Acute Code(s): I10 - Essential (primary) hypertension Plan 66-year-old female with Alzheimer's dementia, behavior disturbance, bipolar disorder, hyperparathyroidism, nephrogenic diabetes insipidus, vitamin-D deficiency, B12 deficiency, hypothyroidism, anxiety, history of femoral vein DVT in August of 2021. She is presently admitted to the psychiatric unit due to decompensated bipolar disorder/psychosis. Plan: Keep Clozaril to 100 mg po bid and 200 mg po qhs. Enforce compliance. Invega Sustenna 156 mg im in 5 days Increase Cogentin to t.i.d. 11/07/2021: No changes to current treatment plan. He can utilize hydroxyzine for anxiety or agitation or insomnia I spent minutes with the patient and/or on the patient floor today, greater than?50% of which was spent counseling/coordinating care. Reason for contiued inpatient stay Substantial Risk for: inability to function
[2021-11-07 18:00] VITALS: BP 126/60; PULSE 77; RESP 18; TEMP 36.3; O2SAT 95
[2021-11-07] MEDS: cloZAPine 100 MG TABLET 200 MG PO (20:14)
[2021-11-07] MEDS: Apixaban 5 MG TABLET PO (20:15)
[2021-11-07] MEDS: traZODone HCL 50 MG TABLET PO (20:15)
[2021-11-07] MEDS: cloZAPine 100 MG TABLET PO (20:16)
[2021-11-07] MEDS: hydrOXYzine HCL 25 MG TABLET PO (20:16)
[2021-11-07 21:02] VITALS: BP 131/61; PULSE 99; RESP 18; TEMP 36.3; O2SAT 96
[2021-11-08 11:21] VITALS: BP 120/57; PULSE 98; RESP 17; TEMP 36.3; O2SAT 91
[2021-11-08] MEDS: Benztropine Mesylate 0.5 MG TABLET PO ×2 (14:01→21:26)
--- NOTE | 2021-11-08 14:49 | P.PNPSI_ITS ---
Subjective Subjective Date of Service: 11/08/21 Reason For Visit: psychotic disorder Subjective Notes: Conditional Voluntary Healthcare Proxy: Yes Interim History: Discussed with Nursing. Met with patient. On one-to-one observation for fall risk. On clozapine and started Invega long-acting injectable. Brighter today in the morning. Guarded with investment underwriter and internally preoccupied. Reported feeling rotten unable to expand on same. Feels she is not getting any help here but also unable to articulate what could be helpful. Has been drinking fluids. Medication Compliance: Yes Side effects from medications: No Attending Groups: No Review of Systems Acute medical concerns: No Review of Systems Review of Systems No significant change Mental Status Exam Mental Status Exam Narrative: one-to-one observer for fall risk. in bed. More engaged and brighter today. Was guarded and internally preoccupied. No evidence of SI or HI. Insight and judgment limited Diagnostics Vital Signs (24Hr): Vital Signs - 24 hr 11/07/21 18:00 11/07/21 21:02 11/08/21 11:21 Temperature 97.3 F 97.3 F 97.4 F Pulse Rate 77 99 98 Respiratory Rate 18 18 17 Blood Pressure 126/60 131/61 120/57 L Pulse Oximetry 95 96 91 L BMI result Body Mass Index 27.0 Labs Results: 10/26/21 07:50 11/01/21 07:05 Imaging Radiology Impressions: ITS Impressions Head CT 10/08/21 15:16 IMPRESSION: No acute intracranial pathology. Head CT 10/09/21 13:54 IMPRESSION: No acute intracranial pathology. Pelvic/Transvag US 10/13/21 09:24 IMPRESSION: Abnormally thickened endometrium for a postmenopausal patient measuring 0.9 cm. 3 x 2.7 x 3.7 cm mass in the posterior cervix. This may represent a fibroid. Slightly thickened trabeculated bladder wall. Head CT 10/20/21 08:18 IMPRESSION: No acute intracranial pathology. This critical result was discussed with Dr. Chu at 8:30 hours on 10/20/2021. It was ascertained that the content and urgency of the report was understood at the time of direct communication. Medications Medications Current Medications Acetaminophen (Acetaminophen 325 Mg Tablet) 650 mg PO Q6H PRN PRN Reason: Headache/Pain Mild Scale (1-3) Last Admin: 11/04/21 20:23 Dose: 650 mg Documented by: Al Hydroxide/Mg Hydroxide (Magnesium Hydrox/Alum Hydrox 30 Ml Oral.Susp) 30 ml PO Q6H PRN PRN Reason: Heartburn/Nausea Apixaban (Apixaban 5 Mg Tablet) 5 mg PO BID [facility] Last Admin: 11/08/21 12:26 Dose: Not Given Documented by: Benztropine Mesylate (Benztropine Mesylate 0.5 Mg Tablet) 0.5 mg PO TID [facility] Last Admin: 11/08/21 14:01 Dose: 0.5 mg Documented by: Bisacodyl (Bisacodyl 10 Mg Supp.Rect) 10 mg [place] DAILY PRN PRN Reason: Constipation Last Admin: 10/29/21 05:09 Dose: 10 mg Documented by: Clozapine (Clozapine 100 Mg Tablet) 200 mg PO BEDTIME [facility] Last Admin: 11/07/21 20:14 Dose: 200 mg Documented by: Clozapine (Clozapine 100 Mg Tablet) 100 mg PO BID [facility] Last Admin: 11/08/21 12:26 Dose: Not Given Documented by: Desmopressin Acetate (Desmopressin Acetate 0.2 Mg Tablet) 0.2 mg PO BID [facility] Last Admin: 11/08/21 12:26 Dose: Not Given Documented by: Hydrochlorothiazide (Hydrochlorothiazide 25 Mg Tablet) 25 mg PO DAILY [facility]; Protocol Last Admin: 11/08/21 12:26 Dose: Not Given Documented by: Hydroxyzine HCl (Hydroxyzine Hcl 25 Mg Tablet) 25 mg PO BEDTIME PRN PRN Reason: Anxiety Last Admin: 11/07/21 20:16 Dose: 25 mg Documented by: Hydroxyzine HCl (Hydroxyzine Hcl 25 Mg Tablet) 25 mg PO BID PRN PRN Reason: Anxiety Loperamide HCl (Loperamide Hcl 2 Mg Capsule) 4 mg PO Q4H PRN PRN Reason: Diarrhea Last Admin: 11/01/21 17:04 Dose: 4 mg Documented by: Magnesium Hydroxide (Milk Of Magnesia 30 Ml Oral.Susp) 30 ml PO DAILY PRN PRN Reason: Constipation Last Admin: 10/26/21 20:03 Dose: 30 ml Documented by: Mirtazapine (Mirtazapine 15 Mg Tablet) 15 mg PO BEDTIME [facility] Last Admin: 11/07/21 20:16 Dose: Not Given Documented by: Paliperidone Palmitate (Paliperidone Palmitate 156 Mg/Ml Syringe) 156 mg IM ONCE@1000 [facility] Stop: 11/11/21 10:01 Potassium Chloride (Potassium Chloride Er 10 Meq Capsule.Er) 40 meq PO BID [facility] Last Admin: 11/08/21 12:26 Dose: Not Given Documented by: Risperidone (Risperidone 1 Mg Tablet) 1 mg PO BID [facility] Last Admin: 11/08/21 12:26 Dose: Not Given Documented by: Trazodone HCl (Trazodone Hcl 50 Mg Tablet) 50 mg PO BEDTIME PRN PRN Reason: Insomnia Last Admin: 11/07/21 20:15 Dose: 50 mg Documented by: Allergies Allergies Allergy/AdvReac Type Severity Reaction Status Date / Time No Known Allergies Allergy Unverified 05/01/20 19:42 [No Known Allergies*] Assessment & Plan Assessment & Plan (1) Schizophrenia, paranoid, chronic with acute exacerbation: Status: Acute Code(s): F20.0 - Paranoid schizophrenia (2) Hypertension: Status: Acute Code(s): I10 - Essential (primary) hypertension Plan 66-year-old female with Alzheimer's dementia, behavior disturbance, bipolar disorder, hyperparathyroidism, nephrogenic diabetes insipidus, vitamin-D deficiency, B12 deficiency, hypothyroidism, anxiety, history of femoral vein DVT in August of 2021. She is presently admitted to the psychiatric unit due to decompensated bipolar disorder/psychosis. Plan: Keep Clozaril to 100 mg po bid and 200 mg po qhs. Enforce compliance. Invega Sustenna 156 mg im in 5 days Increase Cogentin to t.i.d. 11/08/2021: No changes to current treatment plan. Tolerating clozpaine dosing I spent minutes with the patient and/or on the patient floor today, greater than?50% of which was spent counseling/coordinating care. Reason for contiued inpatient stay Substantial Risk for: inability to function
[2021-11-08] MEDS: hydrOXYzine HCL 25 MG TABLET PO (16:16)
[2021-11-08 18:00] VITALS: BP 114/53; PULSE 114; RESP 18; TEMP 36.4; O2SAT 93
[2021-11-08] MEDS: Apixaban 5 MG TABLET PO (21:25)
[2021-11-08] MEDS: traZODone HCL 50 MG TABLET PO (21:27)
[2021-11-08] MEDS: Desmopressin Acetate 0.2 MG TABLET PO (21:28)
[2021-11-08] MEDS: cloZAPine 100 MG TABLET 200 MG PO (21:28)
[2021-11-08] MEDS: Mirtazapine 15 MG TABLET PO (21:28)
[2021-11-08] MEDS: cloZAPine 100 MG TABLET PO (21:29)
[2021-11-08] MEDS: risperiDONE 1 MG TABLET PO (23:05)
--- NOTE | 2021-11-09 14:05 | HO.PSYCHPN ---
Subjective Subjective Date of Service: 11/09/21 Reason For Visit: psychotic disorder Subjective Notes: Conditional Voluntary Interim History: The nursing staff reports the patient still on one-to-one for safety, she refuse her Clozaril a.m. today but so far she has been partially compliant with treatment. She is scheduled to have another Invega Sustenna shot in a couple of days. On interview the patient complains of auditory hallucinations, no changes in her mental status. Mental Status Exam Mental Status Exam Patient Appearance: Inappropriate Level of Consciousness: Awake Patient Behavior: Guarded and Cooperative Mood Description: Suspicious and Withdrawn Affect Description: Constricted Patient Cognition Impaired: Yes Ability to Follow Directions: Good Speech Pattern: Clear Hallucinations: Auditory Delusions: Paranoid Ideation Thought Process: Incoherent and Racing Thought Content: positive for [place], positive for Poverty of Content, positive for Loose Associations and positive for Thought Blocking Judgement: Poor Diagnostics Vital Signs (24Hr): Vital Signs - 24 hr 11/08/21 18:00 Temperature 97.5 F Pulse Rate 114 H Respiratory Rate 18 Blood Pressure 114/53 L Pulse Oximetry 93 BMI result Body Mass Index 27.0 Labs Results: 10/26/21 07:50 11/01/21 07:05 Imaging Radiology Impressions: ITS Impressions Head CT 10/08/21 15:16 IMPRESSION: No acute intracranial pathology. Head CT 10/09/21 13:54 IMPRESSION: No acute intracranial pathology. Pelvic/Transvag US 10/13/21 09:24 IMPRESSION: Abnormally thickened endometrium for a postmenopausal patient measuring 0.9 cm. 3 x 2.7 x 3.7 cm mass in the posterior cervix. This may represent a fibroid. Slightly thickened trabeculated bladder wall. Head CT 10/20/21 08:18 IMPRESSION: No acute intracranial pathology. This critical result was discussed with Dr. Chu at 8:30 hours on 10/20/2021. It was ascertained that the content and urgency of the report was understood at the time of direct communication. Medications Medications Current Medications Acetaminophen (Acetaminophen 325 Mg Tablet) 650 mg PO Q6H PRN PRN Reason: Headache/Pain Mild Scale (1-3) Last Admin: 11/04/21 20:23 Dose: 650 mg Documented by: Al Hydroxide/Mg Hydroxide (Magnesium Hydrox/Alum Hydrox 30 Ml Oral.Susp) 30 ml PO Q6H PRN PRN Reason: Heartburn/Nausea Apixaban (Apixaban 5 Mg Tablet) 5 mg PO BID [facility] Last Admin: 11/09/21 10:28 Dose: Not Given Documented by: Benztropine Mesylate (Benztropine Mesylate 0.5 Mg Tablet) 0.5 mg PO TID [facility] Last Admin: 11/09/21 10:28 Dose: Not Given Documented by: Bisacodyl (Bisacodyl 10 Mg Supp.Rect) 10 mg [place] DAILY PRN PRN Reason: Constipation Last Admin: 10/29/21 05:09 Dose: 10 mg Documented by: Clozapine (Clozapine 100 Mg Tablet) 200 mg PO BEDTIME [facility] Last Admin: 11/08/21 21:28 Dose: 200 mg Documented by: Clozapine (Clozapine 100 Mg Tablet) 100 mg PO BID [facility] Last Admin: 11/09/21 10:29 Dose: Not Given Documented by: Desmopressin Acetate (Desmopressin Acetate 0.2 Mg Tablet) 0.2 mg PO BID [facility] Last Admin: 11/09/21 10:29 Dose: Not Given Documented by: Hydrochlorothiazide (Hydrochlorothiazide 25 Mg Tablet) 25 mg PO DAILY [facility]; Protocol Last Admin: 11/09/21 10:34 Dose: Not Given Documented by: Hydroxyzine HCl (Hydroxyzine Hcl 25 Mg Tablet) 25 mg PO BEDTIME PRN PRN Reason: Anxiety Last Admin: 11/07/21 20:16 Dose: 25 mg Documented by: Hydroxyzine HCl (Hydroxyzine Hcl 25 Mg Tablet) 25 mg PO BID PRN PRN Reason: Anxiety Last Admin: 11/08/21 16:16 Dose: 25 mg Documented by: Loperamide HCl (Loperamide Hcl 2 Mg Capsule) 4 mg PO Q4H PRN PRN Reason: Diarrhea Last Admin: 11/01/21 17:04 Dose: 4 mg Documented by: Magnesium Hydroxide (Milk Of Magnesia 30 Ml Oral.Susp) 30 ml PO DAILY PRN PRN Reason: Constipation Last Admin: 10/26/21 20:03 Dose: 30 ml Documented by: Mirtazapine (Mirtazapine 15 Mg Tablet) 15 mg PO BEDTIME [facility] Last Admin: 11/08/21 21:28 Dose: 15 mg Documented by: Paliperidone Palmitate (Paliperidone Palmitate 156 Mg/Ml Syringe) 156 mg IM ONCE@1000 [facility] Stop: 11/11/21 10:01 Potassium Chloride (Potassium Chloride Er 10 Meq Capsule.Er) 40 meq PO BID [facility] Last Admin: 11/09/21 10:34 Dose: Not Given Documented by: Risperidone (Risperidone 1 Mg Tablet) 1 mg PO BID [facility] Last Admin: 11/09/21 10:34 Dose: Not Given Documented by: Trazodone HCl (Trazodone Hcl 50 Mg Tablet) 50 mg PO BEDTIME PRN PRN Reason: Insomnia Last Admin: 11/08/21 21:27 Dose: 50 mg Documented by: Allergies Allergies Allergy/AdvReac Type Severity Reaction Status Date / Time No Known Allergies Allergy Unverified 05/01/20 19:42 [No Known Allergies*] Assessment & Plan Assessment & Plan (1) Schizophrenia, paranoid, chronic with acute exacerbation: Status: Acute Code(s): F20.0 - Paranoid schizophrenia (2) Hypertension: Status: Acute Code(s): I10 - Essential (primary) hypertension Plan 66-year-old female with Alzheimer's dementia, behavior disturbance, bipolar disorder, hyperparathyroidism, nephrogenic diabetes insipidus, vitamin-D deficiency, B12 deficiency, hypothyroidism, anxiety, history of femoral vein DVT in August of 2021. She is presently admitted to the psychiatric unit due to decompensated bipolar disorder/psychosis. Plan: Keep Clozaril to 100 mg po bid and 200 mg po qhs. Enforce compliance. Invega Sustenna 156 mg im in 5 days Increase Cogentin to t.i.d. I spent __20____ minutes with the patient and/or on the patient floor today, greater than?50% of which was spent counseling/coordinating care. Reason for contiued inpatient stay Substantial Risk for: inability to function, rapid decompensation and med/psych decompensation
[2021-11-09 19:50] VITALS: BP 98/53; PULSE 93; RESP 19; TEMP 36; O2SAT 96
[2021-11-09] MEDS: risperiDONE 1 MG TABLET PO (19:51)
[2021-11-09] MEDS: cloZAPine 100 MG TABLET 200 MG PO (19:52)
[2021-11-09] MEDS: cloZAPine 100 MG TABLET PO (19:52)
[2021-11-09] MEDS: Benztropine Mesylate 0.5 MG TABLET PO (19:52)
[2021-11-09] MEDS: Desmopressin Acetate 0.2 MG TABLET PO (19:53)
[2021-11-09] MEDS: Mirtazapine 15 MG TABLET PO (19:53)
[2021-11-09] MEDS: Apixaban 5 MG TABLET PO (20:43)
[2021-11-09] MEDS: traZODone HCL 50 MG TABLET PO (21:48)
[2021-11-09] MEDS: hydrOXYzine HCL 25 MG TABLET PO (21:48)
--- NOTE | 2021-11-10 08:31 | HO.PSYCHPN ---
Subjective Subjective Date of Service: 11/10/21 Reason For Visit: psychotic disorder Subjective Notes: Conditional Voluntary Interim History: the nursing staff reported that she took her medications last night but she refusing the morning. She needs to be on one-to-one while awake because she has to impulsive. On interview today she reported that she still hearing voices she feels paranoid. She had a shower with the help of the staff. I advised her to continue taking her medications Mental Status Exam Mental Status Exam Patient Appearance: Appropriate Patient Orientation: Person and Situation Level of Consciousness: Awake Patient Behavior: Cooperative Mood Description: Constricted Affect Description: Labile Patient Cognition Impaired: Yes Ability to Follow Directions: Good Speech Pattern: Clear Memory Description: Intact Hallucinations: Auditory Delusions: Paranoid Ideation Thought Process: Illogical and Evasive Thought Content: positive for [place], positive for Obsessional Thoughts, positive for Perseveration, positive for Loose Associations and positive for Thought Blocking Judgement: Fair Diagnostics Vital Signs (24Hr): Vital Signs - 24 hr 11/09/21 19:50 Temperature 96.8 F Pulse Rate 93 Respiratory Rate 19 Blood Pressure 98/53 L Pulse Oximetry 96 BMI result Body Mass Index 27.0 Labs Results: 10/26/21 07:50 11/01/21 07:05 Imaging Radiology Impressions: ITS Impressions Head CT 10/08/21 15:16 IMPRESSION: No acute intracranial pathology. Head CT 10/09/21 13:54 IMPRESSION: No acute intracranial pathology. Pelvic/Transvag US 10/13/21 09:24 IMPRESSION: Abnormally thickened endometrium for a postmenopausal patient measuring 0.9 cm. 3 x 2.7 x 3.7 cm mass in the posterior cervix. This may represent a fibroid. Slightly thickened trabeculated bladder wall. Head CT 10/20/21 08:18 IMPRESSION: No acute intracranial pathology. This critical result was discussed with Dr. Chu at 8:30 hours on 10/20/2021. It was ascertained that the content and urgency of the report was understood at the time of direct communication. Medications Medications Current Medications Acetaminophen (Acetaminophen 325 Mg Tablet) 650 mg PO Q6H PRN PRN Reason: Headache/Pain Mild Scale (1-3) Last Admin: 11/04/21 20:23 Dose: 650 mg Documented by: Al Hydroxide/Mg Hydroxide (Magnesium Hydrox/Alum Hydrox 30 Ml Oral.Susp) 30 ml PO Q6H PRN PRN Reason: Heartburn/Nausea Apixaban (Apixaban 5 Mg Tablet) 5 mg PO BID [facility] Last Admin: 11/09/21 20:43 Dose: 5 mg Documented by: Benztropine Mesylate (Benztropine Mesylate 0.5 Mg Tablet) 0.5 mg PO TID [facility] Last Admin: 11/09/21 19:52 Dose: 0.5 mg Documented by: Bisacodyl (Bisacodyl 10 Mg Supp.Rect) 10 mg [place] DAILY PRN PRN Reason: Constipation Last Admin: 10/29/21 05:09 Dose: 10 mg Documented by: Clozapine (Clozapine 100 Mg Tablet) 200 mg PO BEDTIME [facility] Last Admin: 11/09/21 19:52 Dose: 200 mg Documented by: Clozapine (Clozapine 100 Mg Tablet) 100 mg PO BID [facility] Last Admin: 11/09/21 19:52 Dose: 100 mg Documented by: Desmopressin Acetate (Desmopressin Acetate 0.2 Mg Tablet) 0.2 mg PO BID [facility] Last Admin: 11/09/21 19:53 Dose: 0.2 mg Documented by: Hydrochlorothiazide (Hydrochlorothiazide 25 Mg Tablet) 25 mg PO DAILY [facility]; Protocol Last Admin: 11/09/21 10:34 Dose: Not Given Documented by: Hydroxyzine HCl (Hydroxyzine Hcl 25 Mg Tablet) 25 mg PO BEDTIME PRN PRN Reason: Anxiety Last Admin: 11/09/21 21:48 Dose: 25 mg Documented by: Hydroxyzine HCl (Hydroxyzine Hcl 25 Mg Tablet) 25 mg PO BID PRN PRN Reason: Anxiety Last Admin: 11/08/21 16:16 Dose: 25 mg Documented by: Loperamide HCl (Loperamide Hcl 2 Mg Capsule) 4 mg PO Q4H PRN PRN Reason: Diarrhea Last Admin: 11/01/21 17:04 Dose: 4 mg Documented by: Magnesium Hydroxide (Milk Of Magnesia 30 Ml Oral.Susp) 30 ml PO DAILY PRN PRN Reason: Constipation Last Admin: 10/26/21 20:03 Dose: 30 ml Documented by: Mirtazapine (Mirtazapine 15 Mg Tablet) 15 mg PO BEDTIME [facility] Last Admin: 11/09/21 19:53 Dose: 15 mg Documented by: Paliperidone Palmitate (Paliperidone Palmitate 156 Mg/Ml Syringe) 156 mg IM ONCE@1000 [facility] Stop: 11/11/21 10:01 Potassium Chloride (Potassium Chloride Er 10 Meq Capsule.Er) 40 meq PO BID [facility] Last Admin: 11/09/21 19:54 Dose: 40 meq Documented by: Risperidone (Risperidone 1 Mg Tablet) 1 mg PO BID [facility] Last Admin: 11/09/21 19:51 Dose: 1 mg Documented by: Trazodone HCl (Trazodone Hcl 50 Mg Tablet) 50 mg PO BEDTIME PRN PRN Reason: Insomnia Last Admin: 11/09/21 21:48 Dose: 50 mg Documented by: Allergies Allergies Allergy/AdvReac Type Severity Reaction Status Date / Time No Known Allergies Allergy Unverified 05/01/20 19:42 [No Known Allergies*] Assessment & Plan Assessment & Plan (1) Schizophrenia, paranoid, chronic with acute exacerbation: Status: Acute Code(s): F20.0 - Paranoid schizophrenia (2) Hypertension: Status: Acute Code(s): I10 - Essential (primary) hypertension Plan 66-year-old female with Alzheimer's dementia, behavior disturbance, bipolar disorder, hyperparathyroidism, nephrogenic diabetes insipidus, vitamin-D deficiency, B12 deficiency, hypothyroidism, anxiety, history of femoral vein DVT in August of 2021. She is presently admitted to the psychiatric unit due to decompensated bipolar disorder/psychosis. Plan: Keep Clozaril to 100 mg po bid and 200 mg po qhs. Enforce compliance. Invega Sustenna 156 mg im tomorrow Increase Cogentin to t.i.d. I spent _20 minutes with the patient and/or on the patient floor today, greater than?50% of which was spent counseling/coordinating care. Reason for contiued inpatient stay Substantial Risk for: inability to function, rapid decompensation and med/psych decompensation
[2021-11-10 08:41] LABS: Neut%MD 59.2 %; Neutrophils Absolute Auto 2.8 x10*3/uL (2.0-8.3); WBCANC 4.7 X10*3/uL
[2021-11-10] MEDS: Benztropine Mesylate 0.5 MG TABLET PO ×3 (09:18→21:15)
[2021-11-10] MEDS: risperiDONE 1 MG TABLET PO ×2 (09:18→21:12)
[2021-11-10] MEDS: cloZAPine 100 MG TABLET PO ×2 (09:18→20:21)
[2021-11-10] MEDS: hydroCHLOROthiazide 25 MG TABLET PO (09:18)
[2021-11-10] MEDS: Desmopressin Acetate 0.2 MG TABLET PO ×2 (09:18→21:12)
[2021-11-10] MEDS: Apixaban 5 MG TABLET PO ×2 (09:19→21:14)
[2021-11-10] MEDS: hydrOXYzine HCL 25 MG TABLET PO ×2 (15:51→21:15)
[2021-11-10 18:15] VITALS: PULSE 100; RESP 18; TEMP 36.6; O2SAT 96
[2021-11-10] MEDS: cloZAPine 100 MG TABLET 200 MG PO (20:21)
[2021-11-10] MEDS: Mirtazapine 15 MG TABLET PO (21:13)
[2021-11-10] MEDS: traZODone HCL 50 MG TABLET PO (21:14)
[2021-11-11 08:10] VITALS: BP 105/53; PULSE 82; RESP 14; TEMP 36.7; O2SAT 94
[2021-11-11] MEDS: hydroCHLOROthiazide 25 MG TABLET PO (10:30)
[2021-11-11] MEDS: Desmopressin Acetate 0.2 MG TABLET PO ×2 (10:31→21:55)
[2021-11-11] MEDS: risperiDONE 1 MG TABLET PO ×2 (10:31→21:55)
[2021-11-11] MEDS: Benztropine Mesylate 0.5 MG TABLET PO ×3 (10:31→21:55)
[2021-11-11] MEDS: cloZAPine 100 MG TABLET PO ×2 (10:31→21:55)
[2021-11-11] MEDS: Apixaban 5 MG TABLET PO ×2 (10:31→21:55)
[2021-11-11] MEDS: Paliperidone Palmitate 156 MG/ML SYRINGE IM (11:21)
--- NOTE | 2021-11-11 15:51 | HO.PSYCHPN ---
Subjective Subjective Date of Service: 11/11/21 Reason For Visit: psychotic disorder Subjective Notes: Conditional Voluntary Interim History: The nursing staff reported the patient to Clozaril and later she spent her meds at night. She needed a lot of encouragement to take her medications. She was yelling and screaming to the voices last night. Today she had her Invega Sustenna 156 to target psychosis I encouraged to continue taking her Clozaril too. Still very psychotic. Mental Status Exam Mental Status Exam Patient Appearance: Disheveled Patient Orientation: Person and Situation Level of Consciousness: Awake Patient Behavior: Guarded and Suspicious Mood Description: Suspicious and Withdrawn Affect Description: Labile Patient Cognition Impaired: Yes Ability to Follow Directions: Fair Speech Pattern: Slurred Hallucinations: Auditory Delusions: Paranoid Ideation and Ideas of Reference Thought Process: Illogical and Evasive Thought Content: positive for [place] and positive for Poverty of Content Judgement: Fair Diagnostics Vital Signs (24Hr): Vital Signs - 24 hr 11/10/21 18:15 11/11/21 08:10 Temperature 97.8 F 98.0 F Pulse Rate 100 82 Respiratory Rate 18 14 Blood Pressure 105/53 L Pulse Oximetry 96 94 BMI result Body Mass Index 27.0 Labs Results: 10/26/21 07:50 11/01/21 07:05 Labs: Laboratory Results - last 48 hr 11/10/21 08:19 Absolute Neuts (auto) 2.8 Imaging Radiology Impressions: ITS Impressions Head CT 10/08/21 15:16 IMPRESSION: No acute intracranial pathology. Head CT 10/09/21 13:54 IMPRESSION: No acute intracranial pathology. Pelvic/Transvag US 10/13/21 09:24 IMPRESSION: Abnormally thickened endometrium for a postmenopausal patient measuring 0.9 cm. 3 x 2.7 x 3.7 cm mass in the posterior cervix. This may represent a fibroid. Slightly thickened trabeculated bladder wall. Head CT 10/20/21 08:18 IMPRESSION: No acute intracranial pathology. This critical result was discussed with Dr. Chu at 8:30 hours on 10/20/2021. It was ascertained that the content and urgency of the report was understood at the time of direct communication. Medications Medications Current Medications Acetaminophen (Acetaminophen 325 Mg Tablet) 650 mg PO Q6H PRN PRN Reason: Headache/Pain Mild Scale (1-3) Last Admin: 11/04/21 20:23 Dose: 650 mg Documented by: Al Hydroxide/Mg Hydroxide (Magnesium Hydrox/Alum Hydrox 30 Ml Oral.Susp) 30 ml PO Q6H PRN PRN Reason: Heartburn/Nausea Apixaban (Apixaban 5 Mg Tablet) 5 mg PO BID [facility] Last Admin: 11/11/21 10:31 Dose: 5 mg Documented by: Benztropine Mesylate (Benztropine Mesylate 0.5 Mg Tablet) 0.5 mg PO TID [facility] Last Admin: 11/11/21 10:31 Dose: 0.5 mg Documented by: Bisacodyl (Bisacodyl 10 Mg Supp.Rect) 10 mg [place] DAILY PRN PRN Reason: Constipation Last Admin: 10/29/21 05:09 Dose: 10 mg Documented by: Clozapine (Clozapine 100 Mg Tablet) 200 mg PO BEDTIME [facility] Last Admin: 11/10/21 20:21 Dose: 200 mg Documented by: Clozapine (Clozapine 100 Mg Tablet) 100 mg PO BID [facility] Last Admin: 11/11/21 10:31 Dose: 100 mg Documented by: Desmopressin Acetate (Desmopressin Acetate 0.2 Mg Tablet) 0.2 mg PO BID [facility] Last Admin: 11/11/21 10:31 Dose: 0.2 mg Documented by: Hydrochlorothiazide (Hydrochlorothiazide 25 Mg Tablet) 25 mg PO DAILY [facility]; Protocol Last Admin: 11/11/21 10:30 Dose: 25 mg Documented by: Hydroxyzine HCl (Hydroxyzine Hcl 25 Mg Tablet) 25 mg PO BEDTIME PRN PRN Reason: Anxiety Last Admin: 11/10/21 21:15 Dose: 25 mg Documented by: Hydroxyzine HCl (Hydroxyzine Hcl 25 Mg Tablet) 25 mg PO BID PRN PRN Reason: Anxiety Last Admin: 11/10/21 15:51 Dose: 25 mg Documented by: Loperamide HCl (Loperamide Hcl 2 Mg Capsule) 4 mg PO Q4H PRN PRN Reason: Diarrhea Last Admin: 11/01/21 17:04 Dose: 4 mg Documented by: Magnesium Hydroxide (Milk Of Magnesia 30 Ml Oral.Susp) 30 ml PO DAILY PRN PRN Reason: Constipation Last Admin: 10/26/21 20:03 Dose: 30 ml Documented by: Mirtazapine (Mirtazapine 15 Mg Tablet) 15 mg PO BEDTIME [facility] Last Admin: 11/10/21 22:58 Dose: Not Given Documented by: Potassium Chloride (Potassium Chloride Er 10 Meq Capsule.Er) 40 meq PO BID [facility] Last Admin: 11/11/21 10:30 Dose: 40 meq Documented by: Risperidone (Risperidone 1 Mg Tablet) 1 mg PO BID [facility] Last Admin: 11/11/21 10:31 Dose: 1 mg Documented by: Trazodone HCl (Trazodone Hcl 50 Mg Tablet) 50 mg PO BEDTIME PRN PRN Reason: Insomnia Last Admin: 11/10/21 21:14 Dose: 50 mg Documented by: Allergies Allergies Allergy/AdvReac Type Severity Reaction Status Date / Time No Known Allergies Allergy Unverified 05/01/20 19:42 [No Known Allergies*] Assessment & Plan Assessment & Plan (1) Schizophrenia, paranoid, chronic with acute exacerbation: Status: Acute Code(s): F20.0 - Paranoid schizophrenia (2) Hypertension: Status: Acute Code(s): I10 - Essential (primary) hypertension Plan 66-year-old female with Alzheimer's dementia, behavior disturbance, bipolar disorder, hyperparathyroidism, nephrogenic diabetes insipidus, vitamin-D deficiency, B12 deficiency, hypothyroidism, anxiety, history of femoral vein DVT in August of 2021. She is presently admitted to the psychiatric unit due to decompensated bipolar disorder/psychosis. Plan: Keep Clozaril to 100 mg po bid and 200 mg po qhs. Enforce compliance. Invega Sustenna 156 mg im tomorrow Increase Cogentin to t.i.d. I spent __20____ minutes with the patient and/or on the patient floor today, greater than?50% of which was spent counseling/coordinating care. Reason for contiued inpatient stay Substantial Risk for: inability to function, rapid decompensation and med/psych decompensation
[2021-11-11] MEDS: Acetaminophen 325 MG TABLET 650 MG PO (18:13)
[2021-11-11] MEDS: cloZAPine 100 MG TABLET 200 MG PO (21:55)
[2021-11-11] MEDS: Mirtazapine 15 MG TABLET PO (21:55)
[2021-11-11 22:01] VITALS: BP 114/59; PULSE 94; RESP 16; TEMP 36.6; O2SAT 98
[2021-11-12] MEDS: hydrOXYzine HCL 25 MG TABLET PO (01:07)
[2021-11-12 07:00] VITALS: BMI 27.8
[2021-11-12 07:40] VITALS: BP 129/63; PULSE 93; RESP 18; TEMP 36.7; O2SAT 97
[2021-11-12] MEDS: cloZAPine 100 MG TABLET PO ×2 (08:41→19:59)
[2021-11-12] MEDS: Desmopressin Acetate 0.2 MG TABLET PO ×2 (08:41→19:57)
[2021-11-12] MEDS: hydroCHLOROthiazide 25 MG TABLET PO (08:41)
[2021-11-12] MEDS: Benztropine Mesylate 0.5 MG TABLET PO ×3 (08:41→20:02)
[2021-11-12] MEDS: Apixaban 5 MG TABLET PO ×2 (08:41→20:02)
[2021-11-12] MEDS: risperiDONE 1 MG TABLET PO ×2 (08:41→19:59)
--- NOTE | 2021-11-12 17:01 | HO.PSYCHPN ---
Subjective Subjective Date of Service: 11/12/21 Reason For Visit: psychotic disorder Interim History: Patient seen and discussed with team. Patient evaluated today and upon interview pt reports she is feeling okay. Says her sleep is alright, but not where I want to be before I got sick. Energy is alright. Estimates she gets 5 hours of sleep. No nightmares. Mood is okay. Denies stressors. No questions or concerns.?Painted today, her brother visits. In the milieu, patient is safe and found out in common area talking with another peer. Has makeup on. Denies SI/SIB/HI upon inquiry. Denies irritability or assaultive ideation. Says she feels safe. Medication Compliance: Yes Side effects from medications: No Attending Groups: Yes Review of Systems Acute medical concerns: No Medical Review of Systems: unchanged Mental Status Exam Mental Status Exam Narrative: Patient Appearance:?Appropriate Patient Orientation:?Person and Situation Level of Consciousness:?Awake Patient Behavior:?Cooperative Mood Description:?Withdrawn Affect Description:?Constricted Patient Cognition Impaired:?Yes Ability to Follow Directions:?Good Speech Pattern:?Clear Hallucinations:?Auditory Delusions:?Paranoid Ideation Thought Process:?Linear Thought Content:?positive for Preoccupation and positive for Loose Associations Judgement:?Fair Diagnostics Vital Signs (24Hr): Vital Signs - 24 hr 11/11/21 22:01 11/12/21 07:40 Temperature 97.9 F 98.0 F Pulse Rate 94 93 Respiratory Rate 16 18 Blood Pressure 114/59 L 129/63 Pulse Oximetry 98 97 BMI result Body Mass Index 27.0 Labs Results: 10/26/21 07:50 11/01/21 07:05 Imaging Radiology Impressions: ITS Impressions Head CT 10/08/21 15:16 IMPRESSION: No acute intracranial pathology. Head CT 10/09/21 13:54 IMPRESSION: No acute intracranial pathology. Pelvic/Transvag US 10/13/21 09:24 IMPRESSION: Abnormally thickened endometrium for a postmenopausal patient measuring 0.9 cm. 3 x 2.7 x 3.7 cm mass in the posterior cervix. This may represent a fibroid. Slightly thickened trabeculated bladder wall. Head CT 10/20/21 08:18 IMPRESSION: No acute intracranial pathology. This critical result was discussed with Dr. Chu at 8:30 hours on 10/20/2021. It was ascertained that the content and urgency of the report was understood at the time of direct communication. Medications Medications Current Medications Acetaminophen (Acetaminophen 325 Mg Tablet) 650 mg PO Q6H PRN PRN Reason: Headache/Pain Mild Scale (1-3) Last Admin: 11/11/21 18:13 Dose: 650 mg Documented by: Al Hydroxide/Mg Hydroxide (Magnesium Hydrox/Alum Hydrox 30 Ml Oral.Susp) 30 ml PO Q6H PRN PRN Reason: Heartburn/Nausea Apixaban (Apixaban 5 Mg Tablet) 5 mg PO BID [facility] Last Admin: 11/12/21 08:41 Dose: 5 mg Documented by: Benztropine Mesylate (Benztropine Mesylate 0.5 Mg Tablet) 0.5 mg PO TID [facility] Last Admin: 11/12/21 14:02 Dose: 0.5 mg Documented by: Bisacodyl (Bisacodyl 10 Mg Supp.Rect) 10 mg [place] DAILY PRN PRN Reason: Constipation Last Admin: 10/29/21 05:09 Dose: 10 mg Documented by: Clozapine (Clozapine 100 Mg Tablet) 200 mg PO BEDTIME [facility] Last Admin: 11/11/21 21:55 Dose: 200 mg Documented by: Clozapine (Clozapine 100 Mg Tablet) 100 mg PO BID [facility] Last Admin: 11/12/21 08:41 Dose: 100 mg Documented by: Desmopressin Acetate (Desmopressin Acetate 0.2 Mg Tablet) 0.2 mg PO BID [facility] Last Admin: 11/12/21 08:41 Dose: 0.2 mg Documented by: Hydrochlorothiazide (Hydrochlorothiazide 25 Mg Tablet) 25 mg PO DAILY [facility]; Protocol Last Admin: 11/12/21 08:41 Dose: 25 mg Documented by: Hydroxyzine HCl (Hydroxyzine Hcl 25 Mg Tablet) 25 mg PO BEDTIME PRN PRN Reason: Anxiety Last Admin: 11/12/21 01:07 Dose: 25 mg Documented by: Hydroxyzine HCl (Hydroxyzine Hcl 25 Mg Tablet) 25 mg PO BID PRN PRN Reason: Anxiety Last Admin: 11/10/21 15:51 Dose: 25 mg Documented by: Loperamide HCl (Loperamide Hcl 2 Mg Capsule) 4 mg PO Q4H PRN PRN Reason: Diarrhea Last Admin: 11/01/21 17:04 Dose: 4 mg Documented by: Magnesium Hydroxide (Milk Of Magnesia 30 Ml Oral.Susp) 30 ml PO DAILY PRN PRN Reason: Constipation Last Admin: 10/26/21 20:03 Dose: 30 ml Documented by: Mirtazapine (Mirtazapine 15 Mg Tablet) 15 mg PO BEDTIME [facility] Last Admin: 11/11/21 21:55 Dose: 15 mg Documented by: Potassium Chloride (Potassium Chloride Er 10 Meq Capsule.Er) 40 meq PO BID [facility] Last Admin: 11/12/21 08:41 Dose: 40 meq Documented by: Risperidone (Risperidone 1 Mg Tablet) 1 mg PO BID [facility] Last Admin: 11/12/21 08:41 Dose: 1 mg Documented by: Trazodone HCl (Trazodone Hcl 50 Mg Tablet) 50 mg PO BEDTIME PRN PRN Reason: Insomnia Last Admin: 11/10/21 21:14 Dose: 50 mg Documented by: Trolamine Salicylate/Aloe Vera (Trolamine Salicylate 10%/Aloe Cream 35.4 Gm) 1 appl TOPICAL TID PRN PRN Reason: neck pain Last Admin: 11/12/21 14:05 Dose: 1 appl Documented by: Allergies Allergies Allergy/AdvReac Type Severity Reaction Status Date / Time No Known Allergies Allergy Unverified 05/01/20 19:42 [No Known Allergies*] Assessment & Plan Assessment & Plan (1) Schizophrenia, paranoid, chronic with acute exacerbation: Status: Acute Code(s): F20.0 - Paranoid schizophrenia (2) Hypertension: Status: Acute Code(s): I10 - Essential (primary) hypertension Plan 66-year-old female with Alzheimer's dementia, behavior disturbance, bipolar disorder, hyperparathyroidism, nephrogenic diabetes insipidus, vitamin-D deficiency, B12 deficiency, hypothyroidism, anxiety, history of femoral vein DVT in August of 2021. She is presently admitted to the psychiatric unit due to decompensated bipolar disorder/psychosis. Plan: Keep Clozaril to 100 mg po bid and 200 mg po qhs. Enforce compliance. Invega Sustenna 156 mg im tomorrow Increase Cogentin to t.i.d. I spent minutes with the patient and/or on the patient floor today, greater than?50% of which was spent counseling/coordinating care. Patient educated on: therapeutic strategies Reason for contiued inpatient stay Substantial Risk for: rapid decompensation and med/psych decompensation
[2021-11-12 17:20] VITALS: BP 121/59; PULSE 93; RESP 16; TEMP 36.3; O2SAT 96
[2021-11-12] MEDS: Acetaminophen 325 MG TABLET 650 MG PO (19:58)
[2021-11-12] MEDS: cloZAPine 100 MG TABLET 200 MG PO (19:58)
[2021-11-12] MEDS: Mirtazapine 15 MG TABLET PO (20:00)
[2021-11-12] MEDS: traZODone HCL 50 MG TABLET PO (20:02)
[2021-11-13 10:23] VITALS: BP 98/50; PULSE 94; RESP 14; TEMP 36.8; O2SAT 97
[2021-11-13 11:20] VITALS: BP 127/69; PULSE 107; RESP 16
[2021-11-13] MEDS: Benztropine Mesylate 0.5 MG TABLET PO (11:20)
[2021-11-13] MEDS: risperiDONE 1 MG TABLET PO (11:20)
[2021-11-13] MEDS: cloZAPine 100 MG TABLET PO ×2 (11:20→21:57)
[2021-11-13] MEDS: hydroCHLOROthiazide 25 MG TABLET PO (11:20)
[2021-11-13] MEDS: Apixaban 5 MG TABLET PO ×2 (11:20→21:58)
[2021-11-13] MEDS: Desmopressin Acetate 0.2 MG TABLET PO ×2 (11:20→21:58)
--- NOTE | 2021-11-13 11:54 | HO.PSYCHPN ---
Subjective Subjective Date of Service: 11/13/21 Reason For Visit: psychotic disorder Subjective Notes: Conditional Voluntary Interim History: The nursing staff reported that yesterday the patient had a good day she was not responding too much to internal stimuli after the shot. She was even wearing makeup that she was wearing pink classes. Today on interview the patient reported that she still hearing some voices and she feels distracted sometimes. Reassurance and reinforcement on compliance was provided. It was noticeable that she had more EPS. Mental Status Exam Mental Status Exam Patient Appearance: Appropriate Patient Orientation: Person and Situation Level of Consciousness: Awake Patient Behavior: Cooperative Mood Description: Withdrawn Affect Description: Constricted Patient Cognition Impaired: Yes Ability to Follow Directions: Good Speech Pattern: Clear Hallucinations: Auditory Delusions: Paranoid Ideation Thought Process: Linear Thought Content: positive for Preoccupation and positive for Loose Associations Judgement: Fair Diagnostics Vital Signs (24Hr): Vital Signs - 24 hr 11/12/21 17:20 11/13/21 10:23 11/13/21 11:20 Temperature 97.4 F 98.2 F Pulse Rate 93 94 107 H Respiratory Rate 16 14 16 Blood Pressure 121/59 L 98/50 L 127/69 Pulse Oximetry 96 97 BMI result Body Mass Index 27.8 Labs Results: 10/26/21 07:50 11/01/21 07:05 Imaging Radiology Impressions: ITS Impressions Head CT 10/08/21 15:16 IMPRESSION: No acute intracranial pathology. Head CT 10/09/21 13:54 IMPRESSION: No acute intracranial pathology. Pelvic/Transvag US 10/13/21 09:24 IMPRESSION: Abnormally thickened endometrium for a postmenopausal patient measuring 0.9 cm. 3 x 2.7 x 3.7 cm mass in the posterior cervix. This may represent a fibroid. Slightly thickened trabeculated bladder wall. Head CT 10/20/21 08:18 IMPRESSION: No acute intracranial pathology. This critical result was discussed with Dr. Chu at 8:30 hours on 10/20/2021. It was ascertained that the content and urgency of the report was understood at the time of direct communication. Medications Medications Current Medications Acetaminophen (Acetaminophen 325 Mg Tablet) 650 mg PO Q6H PRN PRN Reason: Headache/Pain Mild Scale (1-3) Last Admin: 11/12/21 19:58 Dose: 650 mg Documented by: Al Hydroxide/Mg Hydroxide (Magnesium Hydrox/Alum Hydrox 30 Ml Oral.Susp) 30 ml PO Q6H PRN PRN Reason: Heartburn/Nausea Apixaban (Apixaban 5 Mg Tablet) 5 mg PO BID [facility] Last Admin: 11/13/21 11:20 Dose: 5 mg Documented by: Bisacodyl (Bisacodyl 10 Mg Supp.Rect) 10 mg [place] DAILY PRN PRN Reason: Constipation Last Admin: 10/29/21 05:09 Dose: 10 mg Documented by: Clozapine (Clozapine 100 Mg Tablet) 200 mg PO BEDTIME [facility] Last Admin: 11/12/21 19:58 Dose: 200 mg Documented by: Clozapine (Clozapine 100 Mg Tablet) 100 mg PO BID [facility] Last Admin: 11/13/21 11:20 Dose: 100 mg Documented by: Desmopressin Acetate (Desmopressin Acetate 0.2 Mg Tablet) 0.2 mg PO BID [facility] Last Admin: 11/13/21 11:20 Dose: 0.2 mg Documented by: Hydrochlorothiazide (Hydrochlorothiazide 25 Mg Tablet) 25 mg PO DAILY [facility]; Protocol Last Admin: 11/13/21 11:20 Dose: 25 mg Documented by: Hydroxyzine HCl (Hydroxyzine Hcl 25 Mg Tablet) 25 mg PO BEDTIME PRN PRN Reason: Anxiety Last Admin: 11/12/21 01:07 Dose: 25 mg Documented by: Hydroxyzine HCl (Hydroxyzine Hcl 25 Mg Tablet) 25 mg PO BID PRN PRN Reason: Anxiety Last Admin: 11/10/21 15:51 Dose: 25 mg Documented by: Loperamide HCl (Loperamide Hcl 2 Mg Capsule) 4 mg PO Q4H PRN PRN Reason: Diarrhea Last Admin: 11/01/21 17:04 Dose: 4 mg Documented by: Magnesium Hydroxide (Milk Of Magnesia 30 Ml Oral.Susp) 30 ml PO DAILY PRN PRN Reason: Constipation Last Admin: 10/26/21 20:03 Dose: 30 ml Documented by: Mirtazapine (Mirtazapine 15 Mg Tablet) 15 mg PO BEDTIME [facility] Last Admin: 11/12/21 20:00 Dose: 15 mg Documented by: Potassium Chloride (Potassium Chloride Er 10 Meq Capsule.Er) 40 meq PO BID [facility] Last Admin: 11/13/21 11:20 Dose: 40 meq Documented by: Trazodone HCl (Trazodone Hcl 50 Mg Tablet) 50 mg PO BEDTIME PRN PRN Reason: Insomnia Last Admin: 11/12/21 20:02 Dose: 50 mg Documented by: Trolamine Salicylate/Aloe Vera (Trolamine Salicylate 10%/Aloe Cream 35.4 Gm) 1 appl TOPICAL TID PRN PRN Reason: neck pain Last Admin: 11/12/21 14:05 Dose: 1 appl Documented by: Allergies Allergies Allergy/AdvReac Type Severity Reaction Status Date / Time No Known Allergies Allergy Unverified 05/01/20 19:42 [No Known Allergies*] Assessment & Plan Assessment & Plan (1) Schizophrenia, paranoid, chronic with acute exacerbation: Status: Acute Code(s): F20.0 - Paranoid schizophrenia (2) Hypertension: Status: Acute Code(s): I10 - Essential (primary) hypertension Plan 66-year-old female with Alzheimer's dementia, behavior disturbance, bipolar disorder, hyperparathyroidism, nephrogenic diabetes insipidus, vitamin-D deficiency, B12 deficiency, hypothyroidism, anxiety, history of femoral vein DVT in August of 2021. She is presently admitted to the psychiatric unit due to decompensated bipolar disorder/psychosis. Plan: Keep Clozaril to 100 mg po bid and 200 mg po qhs. Enforce compliance. Invega Sustenna 156 mg im on 11/12 Increase Cogentin Up to 1 mg p.o. b.i.d. I spent __20____ minutes with the patient and/or on the patient floor today, greater than?50% of which was spent counseling/coordinating care. Reason for contiued inpatient stay Substantial Risk for: inability to function, rapid decompensation and med/psych decompensation
[2021-11-13 21:50] VITALS: BP 127/82; PULSE 102; RESP 20; TEMP 36.3; O2SAT 98
[2021-11-13] MEDS: cloZAPine 100 MG TABLET 200 MG PO (21:57)
[2021-11-13] MEDS: Mirtazapine 15 MG TABLET PO (21:58)
[2021-11-14 06:00] VITALS: BP 141/66; PULSE 111; RESP 16; TEMP 36.7; O2SAT 95
[2021-11-14] MEDS: hydroCHLOROthiazide 25 MG TABLET PO (12:09)
[2021-11-14] MEDS: cloZAPine 100 MG TABLET PO (12:09)
[2021-11-14] MEDS: Apixaban 5 MG TABLET PO ×2 (12:10→23:41)
[2021-11-14] MEDS: Desmopressin Acetate 0.2 MG TABLET PO ×2 (12:10→23:42)
[2021-11-14 20:48] VITALS: BP 128/60; PULSE 105; RESP 16; TEMP 36.4; O2SAT 95
--- NOTE | 2021-11-14 21:10 | P.PNPSI_ITS ---
Subjective Subjective Date of Service: 11/14/21 Reason For Visit: psychotic disorder Interim History: pt has no complaints or requests for MD. per staff, refusing meds. sleeping well. c/o AH. Mental Status Exam Mental Status Exam Patient Appearance: Appropriate Patient Orientation: Person and Situation Level of Consciousness: Awake Patient Behavior: Cooperative Mood Description: Withdrawn Affect Description: Constricted Patient Cognition Impaired: Yes Ability to Follow Directions: Good Speech Pattern: Clear Thought Process: Linear Judgement: Fair Diagnostics Vital Signs (24Hr): Vital Signs - 24 hr 11/13/21 21:50 11/14/21 06:00 11/14/21 20:48 Temperature 97.3 F 98.1 F 97.6 F Pulse Rate 102 H 111 H 105 H Respiratory Rate 20 16 16 Blood Pressure 127/82 141/66 H 128/60 Pulse Oximetry 98 95 95 BMI result Body Mass Index 27.8 Labs Results: 10/26/21 07:50 11/01/21 07:05 Imaging Radiology Impressions: ITS Impressions Head CT 10/08/21 15:16 IMPRESSION: No acute intracranial pathology. Head CT 10/09/21 13:54 IMPRESSION: No acute intracranial pathology. Pelvic/Transvag US 10/13/21 09:24 IMPRESSION: Abnormally thickened endometrium for a postmenopausal patient measuring 0.9 cm. 3 x 2.7 x 3.7 cm mass in the posterior cervix. This may represent a fibroid. Slightly thickened trabeculated bladder wall. Head CT 10/20/21 08:18 IMPRESSION: No acute intracranial pathology. This critical result was discussed with Dr. Chu at 8:30 hours on 10/20/2021. It was ascertained that the content and urgency of the report was understood at the time of direct communication. Medications Medications Current Medications Acetaminophen (Acetaminophen 325 Mg Tablet) 650 mg PO Q6H PRN PRN Reason: Headache/Pain Mild Scale (1-3) Last Admin: 11/12/21 19:58 Dose: 650 mg Documented by: Al Hydroxide/Mg Hydroxide (Magnesium Hydrox/Alum Hydrox 30 Ml Oral.Susp) 30 ml PO Q6H PRN PRN Reason: Heartburn/Nausea Apixaban (Apixaban 5 Mg Tablet) 5 mg PO BID [facility] Last Admin: 11/14/21 12:10 Dose: 5 mg Documented by: Benztropine Mesylate (Benztropine Mesylate 1 Mg Tablet) 1 mg PO BID [facility] Last Admin: 11/14/21 12:16 Dose: Not Given Documented by: Bisacodyl (Bisacodyl 10 Mg Supp.Rect) 10 mg [place] DAILY PRN PRN Reason: Constipation Last Admin: 10/29/21 05:09 Dose: 10 mg Documented by: Clozapine (Clozapine 100 Mg Tablet) 200 mg PO BEDTIME [facility] Last Admin: 11/13/21 21:57 Dose: 200 mg Documented by: Clozapine (Clozapine 100 Mg Tablet) 100 mg PO BID [facility] Last Admin: 11/14/21 12:09 Dose: 100 mg Documented by: Desmopressin Acetate (Desmopressin Acetate 0.2 Mg Tablet) 0.2 mg PO BID [facility] Last Admin: 11/14/21 12:10 Dose: 0.2 mg Documented by: Hydrochlorothiazide (Hydrochlorothiazide 25 Mg Tablet) 25 mg PO DAILY [facility]; Protocol Last Admin: 11/14/21 12:09 Dose: 25 mg Documented by: Hydroxyzine HCl (Hydroxyzine Hcl 25 Mg Tablet) 25 mg PO BEDTIME PRN PRN Reason: Anxiety Last Admin: 11/12/21 01:07 Dose: 25 mg Documented by: Hydroxyzine HCl (Hydroxyzine Hcl 25 Mg Tablet) 25 mg PO BID PRN PRN Reason: Anxiety Last Admin: 11/10/21 15:51 Dose: 25 mg Documented by: Loperamide HCl (Loperamide Hcl 2 Mg Capsule) 4 mg PO Q4H PRN PRN Reason: Diarrhea Last Admin: 11/01/21 17:04 Dose: 4 mg Documented by: Magnesium Hydroxide (Milk Of Magnesia 30 Ml Oral.Susp) 30 ml PO DAILY PRN PRN Reason: Constipation Last Admin: 10/26/21 20:03 Dose: 30 ml Documented by: Mirtazapine (Mirtazapine 15 Mg Tablet) 15 mg PO BEDTIME [facility] Last Admin: 11/13/21 21:58 Dose: 15 mg Documented by: Potassium Chloride (Potassium Chloride Er 10 Meq Capsule.Er) 40 meq PO BID [facility] Last Admin: 11/14/21 12:10 Dose: 40 meq Documented by: Trazodone HCl (Trazodone Hcl 50 Mg Tablet) 50 mg PO BEDTIME PRN PRN Reason: Insomnia Last Admin: 11/12/21 20:02 Dose: 50 mg Documented by: Trolamine Salicylate/Aloe Vera (Trolamine Salicylate 10%/Aloe Cream 35.4 Gm) 1 appl TOPICAL TID PRN PRN Reason: neck pain Last Admin: 11/12/21 14:05 Dose: 1 appl Documented by: Allergies Allergies Allergy/AdvReac Type Severity Reaction Status Date / Time No Known Allergies Allergy Unverified 05/01/20 19:42 [No Known Allergies*] Assessment & Plan Assessment & Plan (1) Schizophrenia, paranoid, chronic with acute exacerbation: Status: Acute Code(s): F20.0 - Paranoid schizophrenia (2) Hypertension: Status: Acute Code(s): I10 - Essential (primary) hypertension Plan 66-year-old female with Alzheimer's dementia, behavior disturbance, bipolar dis order, hyperparathyroidism, nephrogenic diabetes insipidus, vitamin-D deficiency, B12 deficiency, hypothyroidism, anxiety, history of femoral vein DVT in August of 2021. She is presently admitted to the psychiatric unit due to decompensated bipolar disorder/psychosis. Plan: Keep Clozaril to 100 mg po bid and 200 mg po qhs. Enforce compliance. Invega Sustenna 156 mg im Increase Cogentin to t.i.d. I spent ___15___ minutes with the patient and/or on the patient floor today, greater than?50% of which was spent counseling/coordinating care. Reason for contiued inpatient stay Substantial Risk for: inability to function and rapid decompensation
[2021-11-14] MEDS: Acetaminophen 325 MG TABLET 650 MG PO (22:05)
[2021-11-14] MEDS: Mirtazapine 15 MG TABLET PO (23:40)
[2021-11-14] MEDS: Benztropine Mesylate 1 MG TABLET PO (23:41)
[2021-11-15] MEDS: cloZAPine 100 MG TABLET 200 MG PO ×2 (00:07→20:26)
[2021-11-15] MEDS: cloZAPine 100 MG TABLET PO ×3 (00:07→20:28)
[2021-11-15 12:46] VITALS: BP 134/86; PULSE 93; RESP 17; TEMP 36.5; O2SAT 91
[2021-11-15] MEDS: Apixaban 5 MG TABLET PO ×2 (12:52→20:27)
[2021-11-15] MEDS: hydroCHLOROthiazide 25 MG TABLET PO (12:53)
[2021-11-15] MEDS: Benztropine Mesylate 1 MG TABLET PO ×2 (12:53→20:27)
[2021-11-15] MEDS: Desmopressin Acetate 0.2 MG TABLET PO ×2 (12:53→20:27)
--- NOTE | 2021-11-15 14:51 | HO.PSYCHPN ---
Subjective Subjective Date of Service: 11/15/21 Reason For Visit: psychotic disorder Interim History: pt sleeping, not rousable to loud voice. per staff took HS meds except for potassium. [facility] telling her not to eat or take medications. some outbursts. up until 0230. Mental Status Exam Mental Status Exam Narrative: sleeping soundly in bed. appropriately dressed and groomed. Diagnostics Vital Signs (24Hr): Vital Signs - 24 hr 11/14/21 20:48 11/15/21 12:46 Temperature 97.6 F 97.7 F Pulse Rate 105 H 93 Respiratory Rate 16 17 Blood Pressure 128/60 134/86 Pulse Oximetry 95 91 L BMI result Body Mass Index 27.8 Labs Results: 10/26/21 07:50 11/01/21 07:05 Imaging Radiology Impressions: ITS Impressions Head CT 10/08/21 15:16 IMPRESSION: No acute intracranial pathology. Head CT 10/09/21 13:54 IMPRESSION: No acute intracranial pathology. Pelvic/Transvag US 10/13/21 09:24 IMPRESSION: Abnormally thickened endometrium for a postmenopausal patient measuring 0.9 cm. 3 x 2.7 x 3.7 cm mass in the posterior cervix. This may represent a fibroid. Slightly thickened trabeculated bladder wall. Head CT 10/20/21 08:18 IMPRESSION: No acute intracranial pathology. This critical result was discussed with Dr. Chu at 8:30 hours on 10/20/2021. It was ascertained that the content and urgency of the report was understood at the time of direct communication. Medications Medications Current Medications Acetaminophen (Acetaminophen 325 Mg Tablet) 650 mg PO Q6H PRN PRN Reason: Headache/Pain Mild Scale (1-3) Last Admin: 11/14/21 22:05 Dose: 650 mg Documented by: Al Hydroxide/Mg Hydroxide (Magnesium Hydrox/Alum Hydrox 30 Ml Oral.Susp) 30 ml PO Q6H PRN PRN Reason: Heartburn/Nausea Apixaban (Apixaban 5 Mg Tablet) 5 mg PO BID [facility] Last Admin: 11/15/21 12:52 Dose: 5 mg Documented by: Benztropine Mesylate (Benztropine Mesylate 1 Mg Tablet) 1 mg PO BID [facility] Last Admin: 11/15/21 12:53 Dose: 1 mg Documented by: Bisacodyl (Bisacodyl 10 Mg Supp.Rect) 10 mg [place] DAILY PRN PRN Reason: Constipation Last Admin: 10/29/21 05:09 Dose: 10 mg Documented by: Clozapine (Clozapine 100 Mg Tablet) 200 mg PO BEDTIME [facility] Last Admin: 11/15/21 00:07 Dose: 200 mg Documented by: Clozapine (Clozapine 100 Mg Tablet) 100 mg PO BID [facility] Last Admin: 11/15/21 12:52 Dose: 100 mg Documented by: Desmopressin Acetate (Desmopressin Acetate 0.2 Mg Tablet) 0.2 mg PO BID [facility] Last Admin: 11/15/21 12:53 Dose: 0.2 mg Documented by: Hydrochlorothiazide (Hydrochlorothiazide 25 Mg Tablet) 25 mg PO DAILY [facility]; Protocol Last Admin: 11/15/21 12:53 Dose: 25 mg Documented by: Hydroxyzine HCl (Hydroxyzine Hcl 25 Mg Tablet) 25 mg PO BEDTIME PRN PRN Reason: Anxiety Last Admin: 11/12/21 01:07 Dose: 25 mg Documented by: Hydroxyzine HCl (Hydroxyzine Hcl 25 Mg Tablet) 25 mg PO BID PRN PRN Reason: Anxiety Last Admin: 11/10/21 15:51 Dose: 25 mg Documented by: Loperamide HCl (Loperamide Hcl 2 Mg Capsule) 4 mg PO Q4H PRN PRN Reason: Diarrhea Last Admin: 11/01/21 17:04 Dose: 4 mg Documented by: Magnesium Hydroxide (Milk Of Magnesia 30 Ml Oral.Susp) 30 ml PO DAILY PRN PRN Reason: Constipation Last Admin: 10/26/21 20:03 Dose: 30 ml Documented by: Mirtazapine (Mirtazapine 15 Mg Tablet) 15 mg PO BEDTIME [facility] Last Admin: 11/14/21 23:40 Dose: 15 mg Documented by: Potassium Chloride (Potassium Chloride Er 10 Meq Capsule.Er) 40 meq PO BID [facility] Last Admin: 11/15/21 12:56 Dose: Not Given Documented by: Trazodone HCl (Trazodone Hcl 50 Mg Tablet) 50 mg PO BEDTIME PRN PRN Reason: Insomnia Last Admin: 11/12/21 20:02 Dose: 50 mg Documented by: Trolamine Salicylate/Aloe Vera (Trolamine Salicylate 10%/Aloe Cream 35.4 Gm) 1 appl TOPICAL TID PRN PRN Reason: neck pain Last Admin: 11/12/21 14:05 Dose: 1 appl Documented by: Allergies Allergies Allergy/AdvReac Type Severity Reaction Status Date / Time No Known Allergies Allergy Unverified 05/01/20 19:42 [No Known Allergies*] Assessment & Plan Assessment & Plan (1) Schizophrenia, paranoid, chronic with acute exacerbation: Status: Acute Code(s): F20.0 - Paranoid schizophrenia (2) Hypertension: Status: Acute Code(s): I10 - Essential (primary) hypertension Plan 66-year-old female with Alzheimer's dementia, behavior disturbance, bipolar disorder, hyperparathyroidism, nephrogenic diabetes insipidus, vitamin-D deficiency, B12 deficiency, hypothyroidism, anxiety, history of femoral vein DVT in August of 2021.? She is presently admitted to the psychiatric unit due to decompensated bipolar disorder/psychosis.? Plan: Keep? Clozaril? to 100 mg po bid and 200 mg po qhs. Enforce compliance. Invega Sustenna 156 mg im Increase Cogentin to t.i.d. I spent ___15___ minutes with the patient and/or on the patient floor today, greater than?50% of which was spent counseling/coordinating care. Reason for contiued inpatient stay Substantial Risk for: inability to function and rapid decompensation
[2021-11-15 20:09] VITALS: BP 106/59; PULSE 108; RESP 17; TEMP 36.1; O2SAT 95
[2021-11-15] MEDS: Mirtazapine 15 MG TABLET PO (20:26)
[2021-11-16 07:40] VITALS: BP 99/55; PULSE 105; RESP 18; TEMP 37.2; O2SAT 100
--- NOTE | 2021-11-16 08:59 | HO.PSYCHPN ---
Subjective Subjective Date of Service: 11/16/21 Reason For Visit: psychotic disorder Subjective Notes: Conditional Voluntary Interim History: The nursing staff reported the patient has been yelling at the voices at times. But in general, the staff reported that she is behaving much better less intrusive. Even though that she did not present symptoms of acute virus, she is very restless and anxious. On interview the patient reports that she still hearing voices and compliance was reinforced since she initally refursed Clozaril at pm. Mental Status Exam Mental Status Exam Patient Appearance: Well Grooomed Patient Orientation: Person and Situation Level of Consciousness: Awake Patient Behavior: Guarded and Talkative Mood Description: Constricted Affect Description: Labile Patient Cognition Impaired: Yes Ability to Follow Directions: Good Speech Pattern: Clear Hallucinations: Auditory Delusions: Paranoid Ideation Thought Process: Illogical and Evasive Thought Content: positive for [place], positive for Poverty of Content and positive for Thought Blocking Judgement: Fair Diagnostics Vital Signs (24Hr): Vital Signs - 24 hr 11/15/21 12:46 11/15/21 20:09 Temperature 97.7 F 96.9 F Pulse Rate 93 108 H Respiratory Rate 17 17 Blood Pressure 134/86 106/59 L Pulse Oximetry 91 L 95 BMI result Body Mass Index 27.8 Labs Results: 10/26/21 07:50 11/01/21 07:05 Imaging Radiology Impressions: ITS Impressions Head CT 10/08/21 15:16 IMPRESSION: No acute intracranial pathology. Head CT 10/09/21 13:54 IMPRESSION: No acute intracranial pathology. Pelvic/Transvag US 10/13/21 09:24 IMPRESSION: Abnormally thickened endometrium for a postmenopausal patient measuring 0.9 cm. 3 x 2.7 x 3.7 cm mass in the posterior cervix. This may represent a fibroid. Slightly thickened trabeculated bladder wall. Head CT 10/20/21 08:18 IMPRESSION: No acute intracranial pathology. This critical result was discussed with Dr. Chu at 8:30 hours on 10/20/2021. It was ascertained that the content and urgency of the report was understood at the time of direct communication. Medications Medications Current Medications Acetaminophen (Acetaminophen 325 Mg Tablet) 650 mg PO Q6H PRN PRN Reason: Headache/Pain Mild Scale (1-3) Last Admin: 11/14/21 22:05 Dose: 650 mg Documented by: Al Hydroxide/Mg Hydroxide (Magnesium Hydrox/Alum Hydrox 30 Ml Oral.Susp) 30 ml PO Q6H PRN PRN Reason: Heartburn/Nausea Apixaban (Apixaban 5 Mg Tablet) 5 mg PO BID [facility] Last Admin: 11/15/21 20:27 Dose: 5 mg Documented by: Benztropine Mesylate (Benztropine Mesylate 1 Mg Tablet) 1 mg PO BID [facility] Last Admin: 11/15/21 20:27 Dose: 1 mg Documented by: Bisacodyl (Bisacodyl 10 Mg Supp.Rect) 10 mg [place] DAILY PRN PRN Reason: Constipation Last Admin: 10/29/21 05:09 Dose: 10 mg Documented by: Clozapine (Clozapine 100 Mg Tablet) 200 mg PO BEDTIME [facility] Last Admin: 11/15/21 20:26 Dose: 200 mg Documented by: Clozapine (Clozapine 100 Mg Tablet) 100 mg PO BID [facility] Last Admin: 11/15/21 20:28 Dose: 100 mg Documented by: Desmopressin Acetate (Desmopressin Acetate 0.2 Mg Tablet) 0.2 mg PO BID [facility] Last Admin: 11/15/21 20:27 Dose: 0.2 mg Documented by: Hydrochlorothiazide (Hydrochlorothiazide 25 Mg Tablet) 25 mg PO DAILY [facility]; Protocol Last Admin: 11/15/21 12:53 Dose: 25 mg Documented by: Hydroxyzine HCl (Hydroxyzine Hcl 25 Mg Tablet) 25 mg PO BEDTIME PRN PRN Reason: Anxiety Last Admin: 11/12/21 01:07 Dose: 25 mg Documented by: Hydroxyzine HCl (Hydroxyzine Hcl 25 Mg Tablet) 25 mg PO BID PRN PRN Reason: Anxiety Last Admin: 11/10/21 15:51 Dose: 25 mg Documented by: Loperamide HCl (Loperamide Hcl 2 Mg Capsule) 4 mg PO Q4H PRN PRN Reason: Diarrhea Last Admin: 11/01/21 17:04 Dose: 4 mg Documented by: Magnesium Hydroxide (Milk Of Magnesia 30 Ml Oral.Susp) 30 ml PO DAILY PRN PRN Reason: Constipation Last Admin: 10/26/21 20:03 Dose: 30 ml Documented by: Mirtazapine (Mirtazapine 15 Mg Tablet) 15 mg PO BEDTIME [facility] Last Admin: 11/15/21 20:26 Dose: 15 mg Documented by: Potassium Chloride (Potassium Chloride Er 10 Meq Capsule.Er) 40 meq PO BID [facility] Last Admin: 11/15/21 20:28 Dose: 40 meq Documented by: Trazodone HCl (Trazodone Hcl 50 Mg Tablet) 50 mg PO BEDTIME PRN PRN Reason: Insomnia Last Admin: 11/12/21 20:02 Dose: 50 mg Documented by: Trolamine Salicylate/Aloe Vera (Trolamine Salicylate 10%/Aloe Cream 35.4 Gm) 1 appl TOPICAL TID PRN PRN Reason: neck pain Last Admin: 11/15/21 20:30 Dose: 1 appl Documented by: Allergies Allergies Allergy/AdvReac Type Severity Reaction Status Date / Time No Known Allergies Allergy Unverified 05/01/20 19:42 [No Known Allergies*] Assessment & Plan Assessment & Plan (1) Schizophrenia, paranoid, chronic with acute exacerbation: Status: Acute Code(s): F20.0 - Paranoid schizophrenia (2) Hypertension: Status: Acute Code(s): I10 - Essential (primary) hypertension Plan Elderly female with a long history of schizoaffective disorder bipolar type who was admitted into the facility for exacerbation of psychosis and mood lability. The patient is on Clozaril and apparently she has not been fully compliant with treatment. Plan 1. The patient at this moment is on 20 psychotics, Clozaril and Invega Sustenna. Her last dose of Invega was less beak. Apparently her psychosis has improved slightly. 2. Continue rest of the medications I spent __20____ minutes with the patient and/or on the patient floor today, greater than?50% of which was spent counseling/coordinating care. Reason for contiued inpatient stay Substantial Risk for: inability to function, rapid decompensation and med/psych decompensation
[2021-11-16] MEDS: hydroCHLOROthiazide 25 MG TABLET PO (12:18)
[2021-11-16] MEDS: Benztropine Mesylate 1 MG TABLET PO (12:18)
[2021-11-16] MEDS: Desmopressin Acetate 0.2 MG TABLET PO (12:18)
[2021-11-16] MEDS: cloZAPine 100 MG TABLET PO (12:19)
[2021-11-16] MEDS: Apixaban 5 MG TABLET PO (12:19)
[2021-11-16 18:00] VITALS: BP 116/57; PULSE 99; RESP 18; TEMP 36.6; O2SAT 98
[2021-11-17 06:00] VITALS: BP 120/56; PULSE 88; RESP 14; TEMP 36; O2SAT 93
--- NOTE | 2021-11-17 06:31 | PC.NURSE ---
At 620 am during rounds PT had large incontinent episode of urine, PT appears unresponsive, due to PT hx of playing possum this nurse took PT VS T 96.9. R 16, P 94, BP 116/60. PT refusing to open eyes or respond to staff but upon changing PT was not floppy appeared to minimally help. PT hypodermically stable.
--- NOTE | 2021-11-17 08:24 | HO.PSYCHPN ---
Subjective Subjective Date of Service: 11/17/21 Reason For Visit: psychotic disorder Subjective Notes: Conditional Voluntary Interim History: The nursing staff reported that they could not gave her her Clozaril last night because she was sleeping very profoundly. She was incontinent of urine. It was been notice the symptoms the patient put herself down on the floor or place possum, according to her, she is responding to internal stimuli. On interview the patient refused to engage on the conversation, she has not taken AM meds. Mental Status Exam Mental Status Exam Patient Appearance: Appropriate Patient Orientation: Person Level of Consciousness: Restless and Inappropriate Patient Behavior: Guarded Mood Description: Withdrawn Affect Description: Labile Patient Cognition Impaired: Yes Ability to Follow Directions: Fair Speech Pattern: Clear Hallucinations: Auditory Delusions: Paranoid Ideation Thought Process: Illogical, Distracted and Evasive Thought Content: positive for [place], positive for Poverty of Content, positive for [employer] and positive for Thought Blocking Judgement: Fair Diagnostics Vital Signs (24Hr): Vital Signs - 24 hr 11/16/21 18:00 Temperature 97.8 F Pulse Rate 99 Respiratory Rate 18 Blood Pressure 116/57 L Pulse Oximetry 98 BMI result Body Mass Index 27.8 Labs Results: 10/26/21 07:50 11/01/21 07:05 Imaging Radiology Impressions: ITS Impressions Head CT 10/08/21 15:16 IMPRESSION: No acute intracranial pathology. Head CT 10/09/21 13:54 IMPRESSION: No acute intracranial pathology. Pelvic/Transvag US 10/13/21 09:24 IMPRESSION: Abnormally thickened endometrium for a postmenopausal patient measuring 0.9 cm. 3 x 2.7 x 3.7 cm mass in the posterior cervix. This may represent a fibroid. Slightly thickened trabeculated bladder wall. Head CT 10/20/21 08:18 IMPRESSION: No acute intracranial pathology. This critical result was discussed with Dr. Chu at 8:30 hours on 10/20/2021. It was ascertained that the content and urgency of the report was understood at the time of direct communication. Medications Medications Current Medications Acetaminophen (Acetaminophen 325 Mg Tablet) 650 mg PO Q6H PRN PRN Reason: Headache/Pain Mild Scale (1-3) Last Admin: 11/14/21 22:05 Dose: 650 mg Documented by: Al Hydroxide/Mg Hydroxide (Magnesium Hydrox/Alum Hydrox 30 Ml Oral.Susp) 30 ml PO Q6H PRN PRN Reason: Heartburn/Nausea Apixaban (Apixaban 5 Mg Tablet) 5 mg PO BID [facility] Last Admin: 11/16/21 22:30 Dose: Not Given Documented by: Benztropine Mesylate (Benztropine Mesylate 1 Mg Tablet) 1 mg PO BID [facility] Last Admin: 11/16/21 22:30 Dose: Not Given Documented by: Bisacodyl (Bisacodyl 10 Mg Supp.Rect) 10 mg [place] DAILY PRN PRN Reason: Constipation Last Admin: 10/29/21 05:09 Dose: 10 mg Documented by: Clozapine (Clozapine 100 Mg Tablet) 200 mg PO BEDTIME [facility] Last Admin: 11/16/21 22:30 Dose: Not Given Documented by: Clozapine (Clozapine 100 Mg Tablet) 100 mg PO BID [facility] Last Admin: 11/16/21 22:31 Dose: Not Given Documented by: Desmopressin Acetate (Desmopressin Acetate 0.2 Mg Tablet) 0.2 mg PO BID [facility] Last Admin: 11/16/21 22:31 Dose: Not Given Documented by: Hydrochlorothiazide (Hydrochlorothiazide 25 Mg Tablet) 25 mg PO DAILY [facility]; Protocol Last Admin: 11/16/21 12:18 Dose: 25 mg Documented by: Hydroxyzine HCl (Hydroxyzine Hcl 25 Mg Tablet) 25 mg PO BEDTIME PRN PRN Reason: Anxiety Last Admin: 11/12/21 01:07 Dose: 25 mg Documented by: Hydroxyzine HCl (Hydroxyzine Hcl 25 Mg Tablet) 25 mg PO BID PRN PRN Reason: Anxiety Last Admin: 11/10/21 15:51 Dose: 25 mg Documented by: Loperamide HCl (Loperamide Hcl 2 Mg Capsule) 4 mg PO Q4H PRN PRN Reason: Diarrhea Last Admin: 11/01/21 17:04 Dose: 4 mg Documented by: Magnesium Hydroxide (Milk Of Magnesia 30 Ml Oral.Susp) 30 ml PO DAILY PRN PRN Reason: Constipation Last Admin: 10/26/21 20:03 Dose: 30 ml Documented by: Mirtazapine (Mirtazapine 15 Mg Tablet) 15 mg PO BEDTIME [facility] Last Admin: 11/16/21 22:31 Dose: Not Given Documented by: Potassium Chloride (Potassium Chloride Er 10 Meq Capsule.Er) 40 meq PO BID [facility] Last Admin: 11/16/21 22:31 Dose: Not Given Documented by: Trazodone HCl (Trazodone Hcl 50 Mg Tablet) 50 mg PO BEDTIME PRN PRN Reason: Insomnia Last Admin: 11/12/21 20:02 Dose: 50 mg Documented by: Trolamine Salicylate/Aloe Vera (Trolamine Salicylate 10%/Aloe Cream 35.4 Gm) 1 appl TOPICAL TID PRN PRN Reason: neck pain Last Admin: 11/16/21 12:30 Dose: 1 appl Documented by: Allergies Allergies Allergy/AdvReac Type Severity Reaction Status Date / Time No Known Allergies Allergy Unverified 05/01/20 19:42 [No Known Allergies*] Assessment & Plan Assessment & Plan (1) Schizophrenia, paranoid, chronic with acute exacerbation: Status: Acute Code(s): F20.0 - Paranoid schizophrenia (2) Hypertension: Status: Acute Code(s): I10 - Essential (primary) hypertension Plan Elderly female with a long history of schizoaffective disorder bipolar type who was admitted into the facility for exacerbation of psychosis and mood lability. The patient is on Clozaril and apparently she has not been fully compliant with treatment. Plan 1. The patient at this moment is on 20 psychotics, Clozaril and Invega Sustenna. Her last dose of Invega was less beak. Apparently her psychosis has improved slightly. 2. Continue rest of the medications I spent ___20___ minutes with the patient and/or on the patient floor today, greater than?50% of which was spent counseling/coordinating care. Reason for contiued inpatient stay Substantial Risk for: inability to function, rapid decompensation and med/psych decompensation
[2021-11-17 09:05] LABS: Neut%MD 58.4 %; Neutrophils Absolute Auto 3.2 x10*3/uL (2.0-8.3); WBCANC 5.5 X10*3/uL
[2021-11-18 08:17] VITALS: BP 100/55; PULSE 80; TEMP 36.3; O2SAT 96
--- NOTE | 2021-11-18 11:38 | HO.PSYCHPN ---
Subjective Subjective Date of Service: 11/18/21 Reason For Visit: psychotic disorder Subjective Notes: Conditional Voluntary Interim History: The nursing staff reports the patient has been responding to internal stimuli, sometimes yelling at her voices. She is a little more irritable and she states that the was started and her not to take her medications. According to the staff, she has refused Clozaril at least twice in the last 24 hours. On interview the patient reports that she has no doing fine that she is hearing voices. I explained her that her affirmed healthcare proxy wants her to take medications and she is aware that if she does not take Clozaril p.o. she will get a backup of Zyprexa IM. Mental Status Exam Mental Status Exam Patient Appearance: Well Grooomed Patient Orientation: Person and Situation Level of Consciousness: Awake Patient Behavior: Passive Mood Description: Suspicious, Withdrawn and Nervous Affect Description: Labile and Apprehensive Patient Cognition Impaired: Yes Ability to Follow Directions: Fair Speech Pattern: Clear Hallucinations: Auditory Delusions: Paranoid Ideation Thought Process: Illogical Thought Content: positive for [place], positive for Poverty of Content, positive for Loose [place] and positive for Tangential Judgement: Poor Diagnostics Vital Signs (24Hr): Vital Signs - 24 hr 11/18/21 08:17 Temperature 97.3 F Pulse Rate 80 Blood Pressure 100/55 L Pulse Oximetry 96 BMI result Body Mass Index 27.8 Labs Results: 10/26/21 07:50 11/01/21 07:05 Labs: Laboratory Results - last 48 hr 11/17/21 08:26 Absolute Neuts (auto) 3.2 Imaging Radiology Impressions: ITS Impressions Head CT 10/08/21 15:16 IMPRESSION: No acute intracranial pathology. Head CT 10/09/21 13:54 IMPRESSION: No acute intracranial pathology. Pelvic/Transvag US 10/13/21 09:24 IMPRESSION: Abnormally thickened endometrium for a postmenopausal patient measuring 0.9 cm. 3 x 2.7 x 3.7 cm mass in the posterior cervix. This may represent a fibroid. Slightly thickened trabeculated bladder wall. Head CT 10/20/21 08:18 IMPRESSION: No acute intracranial pathology. This critical result was discussed with Dr. Chu at 8:30 hours on 10/20/2021. It was ascertained that the content and urgency of the report was understood at the time of direct communication. Medications Medications Current Medications Acetaminophen (Acetaminophen 325 Mg Tablet) 650 mg PO Q6H PRN PRN Reason: Headache/Pain Mild Scale (1-3) Last Admin: 11/14/21 22:05 Dose: 650 mg Documented by: Al Hydroxide/Mg Hydroxide (Magnesium Hydrox/Alum Hydrox 30 Ml Oral.Susp) 30 ml PO Q6H PRN PRN Reason: Heartburn/Nausea Apixaban (Apixaban 5 Mg Tablet) 5 mg PO BID [facility] Last Admin: 11/17/21 23:42 Dose: Not Given Documented by: Benztropine Mesylate (Benztropine Mesylate 1 Mg Tablet) 1 mg PO BID [facility] Last Admin: 11/17/21 23:42 Dose: Not Given Documented by: Bisacodyl (Bisacodyl 10 Mg Supp.Rect) 10 mg [place] DAILY PRN PRN Reason: Constipation Last Admin: 10/29/21 05:09 Dose: 10 mg Documented by: Clozapine (Clozapine 100 Mg Tablet) 200 mg PO BEDTIME [facility] Last Admin: 11/17/21 23:42 Dose: Not Given Documented by: Clozapine (Clozapine 100 Mg Tablet) 100 mg PO BID [facility] Last Admin: 11/17/21 23:42 Dose: Not Given Documented by: Desmopressin Acetate (Desmopressin Acetate 0.2 Mg Tablet) 0.2 mg PO BID [facility] Last Admin: 11/17/21 23:42 Dose: Not Given Documented by: Hydrochlorothiazide (Hydrochlorothiazide 25 Mg Tablet) 25 mg PO DAILY [facility]; Protocol Last Admin: 11/17/21 13:12 Dose: Not Given Documented by: Hydroxyzine HCl (Hydroxyzine Hcl 25 Mg Tablet) 25 mg PO BEDTIME PRN PRN Reason: Anxiety Last Admin: 11/12/21 01:07 Dose: 25 mg Documented by: Hydroxyzine HCl (Hydroxyzine Hcl 25 Mg Tablet) 25 mg PO BID PRN PRN Reason: Anxiety Last Admin: 11/10/21 15:51 Dose: 25 mg Documented by: Loperamide HCl (Loperamide Hcl 2 Mg Capsule) 4 mg PO Q4H PRN PRN Reason: Diarrhea Last Admin: 11/01/21 17:04 Dose: 4 mg Documented by: Magnesium Hydroxide (Milk Of Magnesia 30 Ml Oral.Susp) 30 ml PO DAILY PRN PRN Reason: Constipation Last Admin: 10/26/21 20:03 Dose: 30 ml Documented by: Mirtazapine (Mirtazapine 15 Mg Tablet) 15 mg PO BEDTIME [facility] Last Admin: 11/17/21 23:42 Dose: Not Given Documented by: Olanzapine (Olanzapine 10 Mg Vial) 5 mg IM TID PRN PRN Reason: Psychosis Potassium Chloride (Potassium Chloride Er 10 Meq Capsule.Er) 40 meq PO BID [facility] Last Admin: 11/17/21 23:43 Dose: Not Given Documented by: Trazodone HCl (Trazodone Hcl 50 Mg Tablet) 50 mg PO BEDTIME PRN PRN Reason: Insomnia Last Admin: 11/12/21 20:02 Dose: 50 mg Documented by: Trolamine Salicylate/Aloe Vera (Trolamine Salicylate 10%/Aloe Cream 35.4 Gm) 1 appl TOPICAL TID PRN PRN Reason: neck pain Last Admin: 11/16/21 12:30 Dose: 1 appl Documented by: Allergies Allergies Allergy/AdvReac Type Severity Reaction Status Date / Time No Known Allergies Allergy Unverified 05/01/20 19:42 [No Known Allergies*] Assessment & Plan Assessment & Plan (1) Schizophrenia, paranoid, chronic with acute exacerbation: Status: Acute Code(s): F20.0 - Paranoid schizophrenia (2) Hypertension: Status: Acute Code(s): I10 - Essential (primary) hypertension Plan Elderly female with a long history of schizoaffective disorder bipolar type who was admitted into the facility for exacerbation of psychosis and mood lability. The patient is on Clozaril and apparently she has not been fully compliant with treatment. Plan 1. The patient at this moment is on 2 psychotics, Clozaril and Invega Sustenna. Her last dose of Invega was less week. Apparently her psychosis has Worsened since she is poorly compliant with Clozaril p.o.. We discussed on rounds at length and legally we can add PRNs IM as per healthcare proxy. 2. Zyprexa 5 mg IM p.r.n. the patient refuses Clozaril. I spent __20____ minutes with the patient and/or on the patient floor today, greater than?50% of which was spent counseling/coordinating care. Informed Consent: understands Reason for contiued inpatient stay Substantial Risk for: inability to function, rapid decompensation and med/psych decompensation
[2021-11-18] MEDS: OLANZapine 10 MG VIAL 5 MG IM (12:27)
[2021-11-18] MEDS: Milk of Magnesia 30 ML ORAL.SUSP PO (17:37)
--- NOTE | 2021-11-18 17:50 | HE.PHANOTE ---
Contacted Dr. Mcdonnell to notify him that Serenity has not taken her clozapine for greater than 48 hours. Due to therapy interruption, I attempted to get her clozapine orders changed to 12.5 mg PO BID as is recommended per [facility]. Provider stated she did not need titration as she has been on high doses for years. Rph again quoted the [facility] guidelines when a pt misses >48 hrs of drug and provider wished to stay at her current dose of 100 mg BID with an additional 200 mg at Bedtime.
[2021-11-18] MEDS: cloZAPine 100 MG TABLET 200 MG PO (20:19)
[2021-11-18] MEDS: cloZAPine 100 MG TABLET PO (20:21)
[2021-11-18] MEDS: Benztropine Mesylate 1 MG TABLET PO (20:23)
[2021-11-18] MEDS: Mirtazapine 15 MG TABLET PO (20:23)
[2021-11-18] MEDS: Apixaban 5 MG TABLET PO (20:23)
[2021-11-18] MEDS: Desmopressin Acetate 0.2 MG TABLET PO (20:23)
[2021-11-18 20:35] VITALS: BP 124/58; PULSE 93; RESP 18; TEMP 36.6; O2SAT 96
[2021-11-19] MEDS: hydrOXYzine HCL 25 MG TABLET PO ×2 (00:51→04:28)
[2021-11-19] MEDS: traZODone HCL 50 MG TABLET PO (00:51)
[2021-11-19] MEDS: Milk of Magnesia 30 ML ORAL.SUSP PO (00:53)
[2021-11-19] MEDS: Acetaminophen 325 MG TABLET 650 MG PO (04:28)
[2021-11-19 04:32] VITALS: BMI 27.0
[2021-11-19 06:00] VITALS: BP 106/54; PULSE 82; RESP 16; TEMP 36.4; O2SAT 92
--- NOTE | 2021-11-19 08:16 | P.PNPSI_ITS ---
Subjective Subjective Date of Service: 11/19/21 Reason For Visit: psychotic disorder Subjective Notes: Conditional Voluntary Interim History: The nursing staff reported that yesterday the patient was alert and oriented and she talk with her daughter. She wants to get better for the marriage of 1 her child. She has been fully compliant with Clozaril so far. On interview the patient reports that she is not doing well she still complains of auditory hallucinations but she is willing to take her Clozaril now. She has I prepped IM as a backup if she refuses. Mental Status Exam Mental Status Exam Patient Appearance: Well Grooomed Patient Orientation: Person and Situation Level of Consciousness: Awake Patient Behavior: Guarded and Suspicious Mood Description: Withdrawn Affect Description: Constricted Patient Cognition Impaired: Yes Ability to Follow Directions: Good Speech Pattern: Clear Hallucinations: Auditory Delusions: Paranoid Ideation Thought Process: Distracted and Slowed Thinking Thought Content: positive for [place], positive for Circumstantial and positive for Poverty of Content Judgement: Fair Diagnostics Vital Signs (24Hr): Vital Signs - 24 hr 11/18/21 08:17 11/18/21 20:35 11/19/21 06:00 Temperature 97.3 F 97.9 F 97.5 F Pulse Rate 80 93 82 Respiratory Rate 18 16 Blood Pressure 100/55 L 124/58 L 106/54 L Pulse Oximetry 96 96 92 BMI result Body Mass Index 27.0 Labs Results: 10/26/21 07:50 11/01/21 07:05 Labs: Laboratory Results - last 48 hr 11/17/21 08:26 Absolute Neuts (auto) 3.2 Imaging Radiology Impressions: ITS Impressions Head CT 10/08/21 15:16 IMPRESSION: No acute intracranial pathology. Head CT 10/09/21 13:54 IMPRESSION: No acute intracranial pathology. Pelvic/Transvag US 10/13/21 09:24 IMPRESSION: Abnormally thickened endometrium for a postmenopausal patient measuring 0.9 cm. 3 x 2.7 x 3.7 cm mass in the posterior cervix. This may represent a fibroid. Slightly thickened trabeculated bladder wall. Head CT 10/20/21 08:18 IMPRESSION: No acute intracranial pathology. This critical result was discussed with Dr. Chu at 8:30 hours on 10/20/2021. It was ascertained that the content and urgency of the report was understood at the time of direct communication. Medications Medications Current Medications Acetaminophen (Acetaminophen 325 Mg Tablet) 650 mg PO Q6H PRN PRN Reason: Headache/Pain Mild Scale (1-3) Last Admin: 11/19/21 04:28 Dose: 650 mg Documented by: Al Hydroxide/Mg Hydroxide (Magnesium Hydrox/Alum Hydrox 30 Ml Oral.Susp) 30 ml PO Q6H PRN PRN Reason: Heartburn/Nausea Apixaban (Apixaban 5 Mg Tablet) 5 mg PO BID [facility] Last Admin: 11/18/21 20:23 Dose: 5 mg Documented by: Benztropine Mesylate (Benztropine Mesylate 1 Mg Tablet) 1 mg PO BID [facility] Last Admin: 11/18/21 20:23 Dose: 1 mg Documented by: Bisacodyl (Bisacodyl 10 Mg Supp.Rect) 10 mg [place] DAILY PRN PRN Reason: Constipation Last Admin: 10/29/21 05:09 Dose: 10 mg Documented by: Clozapine (Clozapine 100 Mg Tablet) 200 mg PO BEDTIME [facility] Last Admin: 11/18/21 20:19 Dose: 200 mg Documented by: Clozapine (Clozapine 100 Mg Tablet) 100 mg PO BID [facility] Last Admin: 11/18/21 20:21 Dose: 100 mg Documented by: Desmopressin Acetate (Desmopressin Acetate 0.2 Mg Tablet) 0.2 mg PO BID [facility] Last Admin: 11/18/21 20:23 Dose: 0.2 mg Documented by: Hydrochlorothiazide (Hydrochlorothiazide 25 Mg Tablet) 25 mg PO DAILY [facility]; Protocol Last Admin: 11/18/21 12:04 Dose: Not Given Documented by: Hydroxyzine HCl (Hydroxyzine Hcl 25 Mg Tablet) 25 mg PO BEDTIME PRN PRN Reason: Anxiety Last Admin: 11/19/21 00:51 Dose: 25 mg Documented by: Hydroxyzine HCl (Hydroxyzine Hcl 25 Mg Tablet) 25 mg PO BID PRN PRN Reason: Anxiety Last Admin: 11/19/21 04:28 Dose: 25 mg Documented by: Loperamide HCl (Loperamide Hcl 2 Mg Capsule) 4 mg PO Q4H PRN PRN Reason: Diarrhea Last Admin: 11/01/21 17:04 Dose: 4 mg Documented by: Magnesium Hydroxide (Milk Of Magnesia 30 Ml Oral.Susp) 30 ml PO DAILY PRN PRN Reason: Constipation Last Admin: 11/19/21 00:53 Dose: 30 ml Documented by: Mirtazapine (Mirtazapine 15 Mg Tablet) 15 mg PO BEDTIME [facility] Last Admin: 11/18/21 20:23 Dose: 15 mg Documented by: Olanzapine (Olanzapine 10 Mg Vial) 5 mg IM TID PRN PRN Reason: Psychosis Last Admin: 11/18/21 12:27 Dose: 5 mg Documented by: Potassium Chloride (Potassium Chloride Er 10 Meq Capsule.Er) 40 meq PO BID [facility] Last Admin: 11/18/21 20:23 Dose: 40 meq Documented by: Trazodone HCl (Trazodone Hcl 50 Mg Tablet) 50 mg PO BEDTIME PRN PRN Reason: Insomnia Last Admin: 11/19/21 00:51 Dose: 50 mg Documented by: Trolamine Salicylate/Aloe Vera (Trolamine Salicylate 10%/Aloe Cream 35.4 Gm) 1 appl TOPICAL TID PRN PRN Reason: neck pain Last Admin: 11/16/21 12:30 Dose: 1 appl Documented by: Allergies Allergies Allergy/AdvReac Type Severity Reaction Status Date / Time No Known Allergies Allergy Unverified 05/01/20 19:42 [No Known Allergies*] Assessment & Plan Assessment & Plan (1) Schizophrenia, paranoid, chronic with acute exacerbation: Status: Acute Code(s): F20.0 - Paranoid schizophrenia (2) Hypertension: Status: Acute Code(s): I10 - Essential (primary) hypertension Plan Elderly female with a long history of schizoaffective disorder bipolar type who was admitted into the facility for exacerbation of psychosis and mood lability. The patient is on Clozaril and apparently she has not been fully compliant with treatment. Plan 1. The patient at this moment is on 2 psychotics, Clozaril and Invega Sustenna. Her last dose of Invega was less week. Apparently her psychosis has Worsened since she is poorly compliant with Clozaril p.o.. We discussed on rounds at length and legally we can add PRNs IM as per healthcare proxy. 2. Zyprexa 5 mg IM p.r.n. the patient refuses Clozaril. I spent __20____ minutes with the patient and/or on the patient floor today, greater than?50% of which was spent counseling/coordinating care. Reason for contiued inpatient stay Substantial Risk for: inability to function, rapid decompensation and med/psych decompensation
[2021-11-19] MEDS: Desmopressin Acetate 0.2 MG TABLET PO ×2 (11:11→20:09)
[2021-11-19] MEDS: hydroCHLOROthiazide 25 MG TABLET PO (11:11)
[2021-11-19] MEDS: Benztropine Mesylate 1 MG TABLET PO ×2 (11:12→20:09)
[2021-11-19] MEDS: cloZAPine 100 MG TABLET PO ×2 (11:12→20:11)
[2021-11-19] MEDS: Apixaban 5 MG TABLET PO ×2 (11:12→20:09)
[2021-11-19 18:00] VITALS: BP 132/61; PULSE 96; TEMP 36.7; O2SAT 95
[2021-11-19] MEDS: Mirtazapine 15 MG TABLET PO (20:09)
[2021-11-19] MEDS: cloZAPine 100 MG TABLET 200 MG PO (20:10)
[2021-11-19] MEDS: bisacodyL 10 MG SUPP.RECT PR (21:06)
[2021-11-20 08:00] VITALS: BP 104/51; PULSE 99; RESP 16; TEMP 36.5; O2SAT 93
[2021-11-20] MEDS: cloZAPine 100 MG TABLET PO ×2 (10:31→20:45)
[2021-11-20] MEDS: Desmopressin Acetate 0.2 MG TABLET PO (10:31)
[2021-11-20] MEDS: Apixaban 5 MG TABLET PO (10:31)
[2021-11-20] MEDS: Benztropine Mesylate 1 MG TABLET PO (10:31)
[2021-11-20] MEDS: hydroCHLOROthiazide 25 MG TABLET PO (10:31)
--- NOTE | 2021-11-20 14:24 | HO.PSYCHPN ---
Subjective Subjective Date of Service: 11/20/21 Reason For Visit: psychotic disorder Subjective Notes: Conditional Voluntary Interim History: the nursing staff reported the patient has been pleasant but she has been completed auditory hallucinations. She has been fully compliant with medications she knows that if she refused Clozaril she will get Zyprexa IM as a backup. On interview the patient reports that she is still hearing voices but less. Still internally preoccupied and paranoid. On physical exam there is mild EPS. Mental Status Exam Mental Status Exam Patient Orientation: Person and Situation Level of Consciousness: Awake Patient Behavior: Cooperative Mood Description: Withdrawn Affect Description: Suspicious, Withdrawn and Labile Patient Cognition Impaired: Yes Ability to Follow Directions: Good Speech Pattern: Clear Hallucinations: None Delusions: Paranoid Ideation Thought Process: Racing, Distracted and Linear Thought Content: positive for [place] and positive for Perseveration Judgement: Fair Diagnostics Vital Signs (24Hr): Vital Signs - 24 hr 11/19/21 18:00 11/20/21 08:00 Temperature 98.1 F 97.7 F Pulse Rate 96 99 Respiratory Rate 16 Blood Pressure 132/61 104/51 L Pulse Oximetry 95 93 BMI result Body Mass Index 27.0 Labs Results: 10/26/21 07:50 11/01/21 07:05 Imaging Radiology Impressions: ITS Impressions Head CT 10/08/21 15:16 IMPRESSION: No acute intracranial pathology. Head CT 10/09/21 13:54 IMPRESSION: No acute intracranial pathology. Pelvic/Transvag US 10/13/21 09:24 IMPRESSION: Abnormally thickened endometrium for a postmenopausal patient measuring 0.9 cm. 3 x 2.7 x 3.7 cm mass in the posterior cervix. This may represent a fibroid. Slightly thickened trabeculated bladder wall. Head CT 10/20/21 08:18 IMPRESSION: No acute intracranial pathology. This critical result was discussed with Dr. Chu at 8:30 hours on 10/20/2021. It was ascertained that the content and urgency of the report was understood at the time of direct communication. Medications Medications Current Medications Acetaminophen (Acetaminophen 325 Mg Tablet) 650 mg PO Q6H PRN PRN Reason: Headache/Pain Mild Scale (1-3) Last Admin: 11/19/21 04:28 Dose: 650 mg Documented by: Al Hydroxide/Mg Hydroxide (Magnesium Hydrox/Alum Hydrox 30 Ml Oral.Susp) 30 ml PO Q6H PRN PRN Reason: Heartburn/Nausea Apixaban (Apixaban 5 Mg Tablet) 5 mg PO BID [facility] Last Admin: 11/20/21 10:31 Dose: 5 mg Documented by: Benztropine Mesylate (Benztropine Mesylate 1 Mg Tablet) 1 mg PO BID [facility] Last Admin: 11/20/21 10:31 Dose: 1 mg Documented by: Bisacodyl (Bisacodyl 10 Mg Supp.Rect) 10 mg [place] DAILY PRN PRN Reason: Constipation Last Admin: 11/19/21 21:06 Dose: 10 mg Documented by: Clozapine (Clozapine 100 Mg Tablet) 200 mg PO BEDTIME [facility] Last Admin: 11/19/21 20:10 Dose: 200 mg Documented by: Clozapine (Clozapine 100 Mg Tablet) 100 mg PO BID [facility] Last Admin: 11/20/21 10:31 Dose: 100 mg Documented by: Desmopressin Acetate (Desmopressin Acetate 0.2 Mg Tablet) 0.2 mg PO BID [facility] Last Admin: 11/20/21 10:31 Dose: 0.2 mg Documented by: Hydrochlorothiazide (Hydrochlorothiazide 25 Mg Tablet) 25 mg PO DAILY [facility]; Protocol Last Admin: 11/20/21 10:31 Dose: 25 mg Documented by: Hydroxyzine HCl (Hydroxyzine Hcl 25 Mg Tablet) 25 mg PO BEDTIME PRN PRN Reason: Anxiety Last Admin: 11/19/21 00:51 Dose: 25 mg Documented by: Hydroxyzine HCl (Hydroxyzine Hcl 25 Mg Tablet) 25 mg PO BID PRN PRN Reason: Anxiety Last Admin: 11/19/21 04:28 Dose: 25 mg Documented by: Loperamide HCl (Loperamide Hcl 2 Mg Capsule) 4 mg PO Q4H PRN PRN Reason: Diarrhea Last Admin: 11/01/21 17:04 Dose: 4 mg Documented by: Magnesium Hydroxide (Milk Of Magnesia 30 Ml Oral.Susp) 30 ml PO DAILY PRN PRN Reason: Constipation Last Admin: 11/19/21 00:53 Dose: 30 ml Documented by: Mirtazapine (Mirtazapine 15 Mg Tablet) 15 mg PO BEDTIME [facility] Last Admin: 11/19/21 20:09 Dose: 15 mg Documented by: Olanzapine (Olanzapine 10 Mg Vial) 5 mg IM TID PRN PRN Reason: Psychosis Last Admin: 11/18/21 12:27 Dose: 5 mg Documented by: Potassium Chloride (Potassium Chloride Er 10 Meq Capsule.Er) 40 meq PO BID [facility] Last Admin: 11/20/21 10:31 Dose: 40 meq Documented by: Trazodone HCl (Trazodone Hcl 50 Mg Tablet) 50 mg PO BEDTIME PRN PRN Reason: Insomnia Last Admin: 11/19/21 00:51 Dose: 50 mg Documented by: Trolamine Salicylate/Aloe Vera (Trolamine Salicylate 10%/Aloe Cream 35.4 Gm) 1 appl TOPICAL TID PRN PRN Reason: neck pain Last Admin: 11/19/21 21:37 Dose: 1 appl Documented by: Allergies Allergies Allergy/AdvReac Type Severity Reaction Status Date / Time No Known Allergies Allergy Unverified 05/01/20 19:42 [No Known Allergies*] Assessment & Plan Assessment & Plan (1) Schizophrenia, paranoid, chronic with acute exacerbation: Status: Acute Code(s): F20.0 - Paranoid schizophrenia (2) Hypertension: Status: Acute Code(s): I10 - Essential (primary) hypertension Plan Elderly female with a long history of schizoaffective disorder bipolar type who was admitted into the facility for exacerbation of psychosis and mood lability. The patient is on Clozaril and apparently she has not been fully compliant with treatment. Plan 1. The patient at this moment is on 2 psychotics, Clozaril and Invega Sustenna. Her last dose of Invega was less week. Apparently her psychosis has Worsened since she is poorly compliant with Clozaril p.o.. We discussed on rounds at length and legally we can add PRNs IM as per healthcare proxy. 2. Zyprexa 5 mg IM p.r.n. the patient refuses Clozaril. I spent __20____ minutes with the patient and/or on the patient floor today, greater than?50% of which was spent counseling/coordinating care. Reason for contiued inpatient stay Substantial Risk for: inability to function, rapid decompensation and med/psych decompensation
[2021-11-20 18:00] VITALS: BP 104/62; PULSE 94; RESP 18; TEMP 36.6; O2SAT 94
--- NOTE | 2021-11-20 18:53 | PC.NURSE ---
At 17:45 TALENT DEVELOPMENT CONSULTANT in room next door heard crash in pt. room. Another staff walked by room and found her on the floor on her back. Pt. did not wait for assist and got herself up to walk to common area to watch TV. Staff intervened and had pt. sit in alvarez to be assessed. She reports she hit her head but did not lose consciousness. Able to move all extremities. She has a superficial abrasion with swelling to her right parietal area. Vital signs WNL. Neuro's WNL. Dr. Guzman notified and ordered CT of head. Daughter Elizabeth Villatoro notified by phone. Ice pack applied to head.
[2021-11-20] MEDS: traZODone HCL 50 MG TABLET PO (20:34)
[2021-11-20] MEDS: cloZAPine 100 MG TABLET 200 MG PO (20:34)
[2021-11-21 06:00] VITALS: BP 102/55; PULSE 85; RESP 16; TEMP 36.7; O2SAT 100
[2021-11-21] MEDS: OLANZapine 10 MG VIAL 5 MG IM (13:10)
--- NOTE | 2021-11-21 16:32 | P.PNPSI_ITS ---
Subjective Subjective Date of Service: 11/21/21 Reason For Visit: psychotic disorder Interim History: last night, pt slipped, hit her head; Head CT unremarkable; neuro checks WNL pt says she's doing fine. Staff reports pt refused meds today. However, patient says she wanted to take then but staff wouldn't bring them to her. 11/20/21 CT/CT head/brain wo con IMPRESSION: No acute intracranial pathology. Mental Status Exam Mental Status Exam Narrative: Patient Orientation:?Person and Situation Level of Consciousness:?Awake Patient Behavior:?Cooperative Mood Description:ok Affect Description:?congruent Patient Cognition Impaired:?Yes Ability to Follow Directions:?Good Speech Pattern:?Clear Hallucinations:?None Delusions:?Paranoid Ideation Thought Process:?Racing, Distracted and Linear Thought Content:?positive for [place] and positive for Perseveration Judgement:?Fair Diagnostics Vital Signs (24Hr): Vital Signs - 24 hr 11/20/21 18:00 11/21/21 06:00 Temperature 97.9 F 98.1 F Pulse Rate 94 85 Respiratory Rate 18 16 Blood Pressure 104/62 102/55 L Pulse Oximetry 94 100 BMI result Body Mass Index 27.0 Labs Results: 10/26/21 07:50 11/01/21 07:05 Imaging Radiology Impressions: ITS Impressions Head CT 10/08/21 15:16 IMPRESSION: No acute intracranial pathology. Head CT 10/09/21 13:54 IMPRESSION: No acute intracranial pathology. Pelvic/Transvag US 10/13/21 09:24 IMPRESSION: Abnormally thickened endometrium for a postmenopausal patient measuring 0.9 cm. 3 x 2.7 x 3.7 cm mass in the posterior cervix. This may represent a fibroid. Slightly thickened trabeculated bladder wall. Head CT 10/20/21 08:18 IMPRESSION: No acute intracranial pathology. This critical result was discussed with Dr. Chu at 8:30 hours on 10/20/2021. It was ascertained that the content and urgency of the report was understood at the time of direct communication. Head CT 11/20/21 19:29 IMPRESSION: No acute intracranial pathology. Medications Medications Current Medications Acetaminophen (Acetaminophen 325 Mg Tablet) 650 mg PO Q6H PRN PRN Reason: Headache/Pain Mild Scale (1-3) Last Admin: 11/19/21 04:28 Dose: 650 mg Documented by: Al Hydroxide/Mg Hydroxide (Magnesium Hydrox/Alum Hydrox 30 Ml Oral.Susp) 30 ml PO Q6H PRN PRN Reason: Heartburn/Nausea Apixaban (Apixaban 5 Mg Tablet) 5 mg PO BID [facility] Last Admin: 11/21/21 13:13 Dose: Not Given Documented by: Benztropine Mesylate (Benztropine Mesylate 1 Mg Tablet) 1 mg PO BID [facility] Last Admin: 11/21/21 13:13 Dose: Not Given Documented by: Bisacodyl (Bisacodyl 10 Mg Supp.Rect) 10 mg [place] DAILY PRN PRN Reason: Constipation Last Admin: 11/19/21 21:06 Dose: 10 mg Documented by: Clozapine (Clozapine 100 Mg Tablet) 200 mg PO BEDTIME [facility] Last Admin: 11/20/21 20:34 Dose: 200 mg Documented by: Clozapine (Clozapine 100 Mg Tablet) 100 mg PO BID [facility] Last Admin: 11/21/21 13:13 Dose: Not Given Documented by: Desmopressin Acetate (Desmopressin Acetate 0.2 Mg Tablet) 0.2 mg PO BID [facility] Last Admin: 11/21/21 13:14 Dose: Not Given Documented by: Hydrochlorothiazide (Hydrochlorothiazide 25 Mg Tablet) 25 mg PO DAILY [facility]; Protocol Last Admin: 11/21/21 13:14 Dose: Not Given Documented by: Hydroxyzine HCl (Hydroxyzine Hcl 25 Mg Tablet) 25 mg PO BEDTIME PRN PRN Reason: Anxiety Last Admin: 11/19/21 00:51 Dose: 25 mg Documented by: Hydroxyzine HCl (Hydroxyzine Hcl 25 Mg Tablet) 25 mg PO BID PRN PRN Reason: Anxiety Last Admin: 11/19/21 04:28 Dose: 25 mg Documented by: Loperamide HCl (Loperamide Hcl 2 Mg Capsule) 4 mg PO Q4H PRN PRN Reason: Diarrhea Last Admin: 11/01/21 17:04 Dose: 4 mg Documented by: Magnesium Hydroxide (Milk Of Magnesia 30 Ml Oral.Susp) 30 ml PO DAILY PRN PRN Reason: Constipation Last Admin: 11/19/21 00:53 Dose: 30 ml Documented by: Mirtazapine (Mirtazapine 15 Mg Tablet) 15 mg PO BEDTIME [facility] Last Admin: 11/20/21 23:47 Dose: Not Given Documented by: Olanzapine (Olanzapine 10 Mg Vial) 5 mg IM TID PRN PRN Reason: Psychosis Last Admin: 11/21/21 13:10 Dose: 5 mg Documented by: Potassium Chloride (Potassium Chloride Er 10 Meq Capsule.Er) 40 meq PO BID [facility] Last Admin: 11/21/21 13:14 Dose: Not Given Documented by: Trazodone HCl (Trazodone Hcl 50 Mg Tablet) 50 mg PO BEDTIME PRN PRN Reason: Insomnia Last Admin: 11/20/21 20:34 Dose: 50 mg Documented by: Trolamine Salicylate/Aloe Vera (Trolamine Salicylate 10%/Aloe Cream 35.4 Gm) 1 appl TOPICAL TID PRN PRN Reason: neck pain Last Admin: 11/19/21 21:37 Dose: 1 appl Documented by: Allergies Allergies Allergy/AdvReac Type Severity Reaction Status Date / Time No Known Allergies Allergy Unverified 05/01/20 19:42 [No Known Allergies*] Assessment & Plan Assessment & Plan (1) Schizophrenia, paranoid, chronic with acute exacerbation: Status: Acute Code(s): F20.0 - Paranoid schizophrenia (2) Hypertension: Status: Acute Code(s): I10 - Essential (primary) hypertension Plan Elderly female with a long history of schizoaffective disorder bipolar type who was admitted into the facility for exacerbation of psychosis and mood lability. The patient is on Clozaril and apparently she has not been fully compliant with treatment. 11/21 slipped, hit head on 11/20, head CT reviewed and unremarkable Plan 1. The patient at this moment is on 2 psychotics, Clozaril and Invega Sustenna. Her last dose of Invega was less week. Apparently her psychosis has Worsened since she is poorly compliant with Clozaril p.o.. We discussed on rounds at length and legally we can add PRNs IM as per healthcare proxy. 2. Zyprexa 5 mg IM p.r.n. the patient refuses Clozaril. I spent minutes with the patient and/or on the patient floor today, greater than?50% of which was spent counseling/coordinating care. Patient educated on: medication risk/benefits Informed Consent: does not understand Reason for contiued inpatient stay Substantial Risk for: inability to function
[2021-11-21] MEDS: Benztropine Mesylate 1 MG TABLET PO (20:10)
[2021-11-21] MEDS: cloZAPine 100 MG TABLET 200 MG PO (20:10)
[2021-11-21] MEDS: Apixaban 5 MG TABLET PO (20:10)
[2021-11-21] MEDS: Desmopressin Acetate 0.2 MG TABLET PO (20:11)
[2021-11-21] MEDS: cloZAPine 100 MG TABLET PO (20:11)
[2021-11-21] MEDS: Mirtazapine 15 MG TABLET PO (20:11)
[2021-11-21 21:17] VITALS: BP 108/57; PULSE 91; RESP 18; TEMP 36.3; O2SAT 94
[2021-11-21] MEDS: hydrOXYzine HCL 25 MG TABLET PO (22:59)
[2021-11-21] MEDS: traZODone HCL 50 MG TABLET PO (22:59)
[2021-11-21] MEDS: Acetaminophen 325 MG TABLET 650 MG PO (23:00)
[2021-11-22 06:00] VITALS: BP 110/54; PULSE 91; RESP 18; TEMP 36.2; O2SAT 95
[2021-11-22] MEDS: Desmopressin Acetate 0.2 MG TABLET PO ×2 (12:57→20:29)
[2021-11-22] MEDS: Apixaban 5 MG TABLET PO ×2 (12:57→20:32)
[2021-11-22] MEDS: cloZAPine 100 MG TABLET PO ×2 (12:57→20:31)
[2021-11-22] MEDS: hydroCHLOROthiazide 25 MG TABLET PO (12:57)
[2021-11-22] MEDS: Benztropine Mesylate 1 MG TABLET PO ×2 (12:57→20:30)
--- NOTE | 2021-11-22 14:51 | P.PNPSI_ITS ---
Subjective Subjective Date of Service: 11/22/21 Reason For Visit: psychotic disorder Interim History: pt transitioned to walker today from wheel chair Mental Status Exam Mental Status Exam Narrative: Patient Orientation:?Person and Situation Level of Consciousness:?Awake Patient Behavior:?Cooperative Mood Description:ok Affect Description:?congruent Patient Cognition Impaired:?Yes Ability to Follow Directions:?Good Speech Pattern:?Clear Hallucinations:?None Delusions:?Paranoid Ideation Thought Process:?Racing, Distracted and Linear Thought Content:?positive for [place] and positive for Perseveration Judgement:?Fair Diagnostics Vital Signs (24Hr): Vital Signs - 24 hr 11/21/21 21:17 Temperature 97.3 F Pulse Rate 91 Respiratory Rate 18 Blood Pressure 108/57 L Pulse Oximetry 94 BMI result Body Mass Index 27.0 Labs Results: 10/26/21 07:50 11/01/21 07:05 Imaging Radiology Impressions: ITS Impressions Head CT 10/08/21 15:16 IMPRESSION: No acute intracranial pathology. Head CT 10/09/21 13:54 IMPRESSION: No acute intracranial pathology. Pelvic/Transvag US 10/13/21 09:24 IMPRESSION: Abnormally thickened endometrium for a postmenopausal patient measuring 0.9 cm. 3 x 2.7 x 3.7 cm mass in the posterior cervix. This may represent a fibroid. Slightly thickened trabeculated bladder wall. Head CT 10/20/21 08:18 IMPRESSION: No acute intracranial pathology. This critical result was discussed with Dr. Chu at 8:30 hours on 10/20/2021. It was ascertained that the content and urgency of the report was understood at the time of direct communication. Head CT 11/20/21 19:29 IMPRESSION: No acute intracranial pathology. Medications Medications Current Medications Acetaminophen (Acetaminophen 325 Mg Tablet) 650 mg PO Q6H PRN PRN Reason: Headache/Pain Mild Scale (1-3) Last Admin: 11/21/21 23:00 Dose: 650 mg Documented by: Al Hydroxide/Mg Hydroxide (Magnesium Hydrox/Alum Hydrox 30 Ml Oral.Susp) 30 ml PO Q6H PRN PRN Reason: Heartburn/Nausea Apixaban (Apixaban 5 Mg Tablet) 5 mg PO BID [facility] Last Admin: 11/22/21 12:57 Dose: 5 mg Documented by: Benztropine Mesylate (Benztropine Mesylate 1 Mg Tablet) 1 mg PO BID [facility] Last Admin: 11/22/21 12:57 Dose: 1 mg Documented by: Bisacodyl (Bisacodyl 10 Mg Supp.Rect) 10 mg [place] DAILY PRN PRN Reason: Constipation Last Admin: 11/19/21 21:06 Dose: 10 mg Documented by: Clozapine (Clozapine 100 Mg Tablet) 200 mg PO BEDTIME [facility] Last Admin: 11/21/21 20:10 Dose: 200 mg Documented by: Clozapine (Clozapine 100 Mg Tablet) 100 mg PO BID [facility] Last Admin: 11/22/21 12:57 Dose: 100 mg Documented by: Desmopressin Acetate (Desmopressin Acetate 0.2 Mg Tablet) 0.2 mg PO BID [facility] Last Admin: 11/22/21 12:57 Dose: 0.2 mg Documented by: Hydrochlorothiazide (Hydrochlorothiazide 25 Mg Tablet) 25 mg PO DAILY [facility]; Protocol Last Admin: 11/22/21 12:57 Dose: 25 mg Documented by: Hydroxyzine HCl (Hydroxyzine Hcl 25 Mg Tablet) 25 mg PO BEDTIME PRN PRN Reason: Anxiety Last Admin: 11/21/21 22:59 Dose: 25 mg Documented by: Hydroxyzine HCl (Hydroxyzine Hcl 25 Mg Tablet) 25 mg PO BID PRN PRN Reason: Anxiety Last Admin: 11/19/21 04:28 Dose: 25 mg Documented by: Loperamide HCl (Loperamide Hcl 2 Mg Capsule) 4 mg PO Q4H PRN PRN Reason: Diarrhea Last Admin: 11/01/21 17:04 Dose: 4 mg Documented by: Magnesium Hydroxide (Milk Of Magnesia 30 Ml Oral.Susp) 30 ml PO DAILY PRN PRN Reason: Constipation Last Admin: 11/19/21 00:53 Dose: 30 ml Documented by: Mirtazapine (Mirtazapine 15 Mg Tablet) 15 mg PO BEDTIME [facility] Last Admin: 11/21/21 20:11 Dose: 15 mg Documented by: Olanzapine (Olanzapine 10 Mg Vial) 5 mg IM TID PRN PRN Reason: Psychosis Last Admin: 11/21/21 13:10 Dose: 5 mg Documented by: Potassium Chloride (Potassium Chloride Er 10 Meq Capsule.Er) 40 meq PO BID [facility] Last Admin: 11/22/21 12:56 Dose: 40 meq Documented by: Trazodone HCl (Trazodone Hcl 50 Mg Tablet) 50 mg PO BEDTIME PRN PRN Reason: Insomnia Last Admin: 11/21/21 22:59 Dose: 50 mg Documented by: Trolamine Salicylate/Aloe Vera (Trolamine Salicylate 10%/Aloe Cream 35.4 Gm) 1 appl TOPICAL TID PRN PRN Reason: neck pain Last Admin: 11/19/21 21:37 Dose: 1 appl Documented by: Allergies Allergies Allergy/AdvReac Type Severity Reaction Status Date / Time No Known Allergies Allergy Unverified 05/01/20 19:42 [No Known Allergies*] Assessment & Plan Assessment & Plan (1) Schizophrenia, paranoid, chronic with acute exacerbation: Status: Acute Code(s): F20.0 - Paranoid schizophrenia (2) Hypertension: Status: Acute Code(s): I10 - Essential (primary) hypertension Plan Elderly female with a long history of schizoaffective disorder bipolar type who was admitted into the facility for exacerbation of psychosis and mood lability. The patient is on Clozaril and apparently she has not been fully compliant with treatment. 11/21 slipped, hit head on 11/20, head CT reviewed and unremarkable Plan 1. The patient at this moment is on 2 psychotics, Clozaril and Invega Sustenna. Her last dose of Invega was less week. Apparently her psychosis has Worsened since she is poorly compliant with Clozaril p.o.. We discussed on rounds at length and legally we can add PRNs IM as per healthcare proxy. 2. Zyprexa 5 mg IM p.r.n. the patient refuses Clozaril. I spent minutes with the patient and/or on the patient floor today, greater than?50% of which was spent counseling/coordinating care. Reason for contiued inpatient stay Substantial Risk for: inability to function
[2021-11-22 18:00] VITALS: BP 95/48; PULSE 80; RESP 16; TEMP 36.3; O2SAT 95
[2021-11-22] MEDS: cloZAPine 100 MG TABLET 200 MG PO (20:29)
[2021-11-22] MEDS: Mirtazapine 15 MG TABLET PO (20:30)
[2021-11-22] MEDS: traZODone HCL 50 MG TABLET PO (20:31)
[2021-11-22] MEDS: hydrOXYzine HCL 25 MG TABLET PO (20:32)
[2021-11-23 11:00] VITALS: BP 102/51; PULSE 68; RESP 18; TEMP 33.2; O2SAT 95
[2021-11-23] MEDS: Desmopressin Acetate 0.2 MG TABLET PO ×2 (11:36→20:54)
[2021-11-23] MEDS: cloZAPine 100 MG TABLET PO ×2 (11:36→20:46)
[2021-11-23] MEDS: Apixaban 5 MG TABLET PO ×2 (11:36→20:48)
[2021-11-23] MEDS: Benztropine Mesylate 1 MG TABLET PO ×2 (11:37→20:49)
[2021-11-23] MEDS: hydroCHLOROthiazide 25 MG TABLET PO (11:38)
--- NOTE | 2021-11-23 15:17 | HO.PSYCHPN ---
Subjective Subjective Date of Service: 11/23/21 Reason For Visit: psychotic disorder Subjective Notes: Conditional Voluntary Interim History: The nursing staff reports the patient has been incontinent of urine. She had been quiet and ambulatory no outburst of auditory hallucinations. On interview the patient reports auditory hallucinations and she has been compliant with treatment since she is fully aware that if she refuses Clozaril she will get IM Zyprexa. Mental Status Exam Mental Status Exam Patient Appearance: Well Grooomed Patient Orientation: Person and Situation Level of Consciousness: Awake Patient Behavior: Guarded, Cooperative and Suspicious Mood Description: Withdrawn and Depressed Affect Description: Constricted Ability to Follow Directions: Good Speech Pattern: Clear Hallucinations: Auditory Delusions: Paranoid Ideation Thought Process: Illogical and Linear Thought Content: positive for [place], positive for Circumstantial and positive for Poverty of Content Judgement: Fair Diagnostics Vital Signs (24Hr): Vital Signs - 24 hr 11/22/21 18:00 11/23/21 11:00 Temperature 97.4 F 91.7 F L Pulse Rate 80 68 Respiratory Rate 16 18 Blood Pressure 95/48 L 102/51 L Pulse Oximetry 95 95 BMI result Body Mass Index 27.0 Labs Results: 10/26/21 07:50 11/01/21 07:05 Imaging Radiology Impressions: ITS Impressions Head CT 10/08/21 15:16 IMPRESSION: No acute intracranial pathology. Head CT 10/09/21 13:54 IMPRESSION: No acute intracranial pathology. Pelvic/Transvag US 10/13/21 09:24 IMPRESSION: Abnormally thickened endometrium for a postmenopausal patient measuring 0.9 cm. 3 x 2.7 x 3.7 cm mass in the posterior cervix. This may represent a fibroid. Slightly thickened trabeculated bladder wall. Head CT 10/20/21 08:18 IMPRESSION: No acute intracranial pathology. This critical result was discussed with Dr. Cuh at 8:30 hours on 10/20/2021. It was ascertained that the content and urgency of the report was understood at the time of direct communication. Head CT 11/20/21 19:29 IMPRESSION: No acute intracranial pathology. Medications Medications Current Medications Acetaminophen (Acetaminophen 325 Mg Tablet) 650 mg PO Q6H PRN PRN Reason: Headache/Pain Mild Scale (1-3) Last Admin: 11/21/21 23:00 Dose: 650 mg Documented by: Al Hydroxide/Mg Hydroxide (Magnesium Hydrox/Alum Hydrox 30 Ml Oral.Susp) 30 ml PO Q6H PRN PRN Reason: Heartburn/Nausea Apixaban (Apixaban 5 Mg Tablet) 5 mg PO BID [facility] Last Admin: 11/23/21 11:36 Dose: 5 mg Documented by: Benztropine Mesylate (Benztropine Mesylate 1 Mg Tablet) 1 mg PO BID [facility] Last Admin: 11/23/21 11:37 Dose: 1 mg Documented by: Bisacodyl (Bisacodyl 10 Mg Supp.Rect) 10 mg [place] DAILY PRN PRN Reason: Constipation Last Admin: 11/19/21 21:06 Dose: 10 mg Documented by: Clozapine (Clozapine 100 Mg Tablet) 200 mg PO BEDTIME [facility] Last Admin: 11/22/21 20:29 Dose: 200 mg Documented by: Clozapine (Clozapine 100 Mg Tablet) 100 mg PO BID [facility] Last Admin: 11/23/21 11:36 Dose: 100 mg Documented by: Desmopressin Acetate (Desmopressin Acetate 0.2 Mg Tablet) 0.2 mg PO BID [facility] Last Admin: 11/23/21 11:36 Dose: 0.2 mg Documented by: Hydrochlorothiazide (Hydrochlorothiazide 25 Mg Tablet) 25 mg PO DAILY [facility]; Protocol Last Admin: 11/23/21 11:38 Dose: 25 mg Documented by: Hydroxyzine HCl (Hydroxyzine Hcl 25 Mg Tablet) 25 mg PO BEDTIME PRN PRN Reason: Anxiety Last Admin: 11/22/21 20:32 Dose: 25 mg Documented by: Hydroxyzine HCl (Hydroxyzine Hcl 25 Mg Tablet) 25 mg PO BID PRN PRN Reason: Anxiety Last Admin: 11/19/21 04:28 Dose: 25 mg Documented by: Loperamide HCl (Loperamide Hcl 2 Mg Capsule) 4 mg PO Q4H PRN PRN Reason: Diarrhea Last Admin: 11/01/21 17:04 Dose: 4 mg Documented by: Magnesium Hydroxide (Milk Of Magnesia 30 Ml Oral.Susp) 30 ml PO DAILY PRN PRN Reason: Constipation Last Admin: 11/19/21 00:53 Dose: 30 ml Documented by: Mirtazapine (Mirtazapine 15 Mg Tablet) 15 mg PO BEDTIME [facility] Last Admin: 11/22/21 20:30 Dose: 15 mg Documented by: Olanzapine (Olanzapine 10 Mg Vial) 5 mg IM TID PRN PRN Reason: Psychosis Last Admin: 11/21/21 13:10 Dose: 5 mg Documented by: Potassium Chloride (Potassium Chloride Er 10 Meq Capsule.Er) 40 meq PO BID [facility] Last Admin: 11/23/21 11:40 Dose: Not Given Documented by: Trazodone HCl (Trazodone Hcl 50 Mg Tablet) 50 mg PO BEDTIME PRN PRN Reason: Insomnia Last Admin: 11/22/21 20:31 Dose: 50 mg Documented by: Trolamine Salicylate/Aloe Vera (Trolamine Salicylate 10%/Aloe Cream 35.4 Gm) 1 appl TOPICAL TID PRN PRN Reason: neck pain Last Admin: 11/19/21 21:37 Dose: 1 appl Documented by: Allergies Allergies Allergy/AdvReac Type Severity Reaction Status Date / Time No Known Allergies Allergy Unverified 05/01/20 19:42 [No Known Allergies*] Assessment & Plan Assessment & Plan (1) Schizophrenia, paranoid, chronic with acute exacerbation: Status: Acute Code(s): F20.0 - Paranoid schizophrenia (2) Hypertension: Status: Acute Code(s): I10 - Essential (primary) hypertension Plan Elderly female with a long history of schizoaffective disorder bipolar type who was admitted into the facility for exacerbation of psychosis and mood lability. The patient is on Clozaril and apparently she has not been fully compliant with treatment. 11/21 slipped, hit head on 11/20, head CT reviewed and unremarkable Plan 1. The patient at this moment is on 2 psychotics, Clozaril and Invega Sustenna. Her last dose of Invega was less week. Apparently her psychosis has Worsened since she is poorly compliant with Clozaril p.o.. We discussed on rounds at length and legally we can add PRNs IM as per healthcare proxy. 2. Zyprexa 5 mg IM p.r.n. the patient refuses Clozaril. I spent ____20__ minutes with the patient and/or on the patient floor today, greater than?50% of which was spent counseling/coordinating care. Reason for contiued inpatient stay Substantial Risk for: inability to function, rapid decompensation and med/psych decompensation
[2021-11-23 18:00] VITALS: BP 145/67; PULSE 92; RESP 16; TEMP 36.4; O2SAT 98
[2021-11-23] MEDS: cloZAPine 100 MG TABLET 200 MG PO (20:47)
[2021-11-23] MEDS: Mirtazapine 15 MG TABLET PO (20:48)
[2021-11-23] MEDS: traZODone HCL 50 MG TABLET PO (20:49)
[2021-11-24] MEDS: hydrOXYzine HCL 25 MG TABLET PO (00:25)
[2021-11-24 08:07] VITALS: BP 121/64; PULSE 82; RESP 17; TEMP 36.2; O2SAT 98
[2021-11-24] MEDS: Desmopressin Acetate 0.2 MG TABLET PO ×2 (08:15→20:22)
[2021-11-24] MEDS: Apixaban 5 MG TABLET PO ×2 (08:15→20:23)
[2021-11-24] MEDS: Benztropine Mesylate 1 MG TABLET PO ×2 (08:15→20:23)
[2021-11-24] MEDS: hydroCHLOROthiazide 25 MG TABLET PO (08:15)
[2021-11-24] MEDS: cloZAPine 100 MG TABLET PO (08:16)
[2021-11-24 09:12] LABS: Neut%MD 60.1 %; Neutrophils Absolute Auto 3.7 x10*3/uL (2.0-8.3); WBCANC 6.1 X10*3/uL
--- NOTE | 2021-11-24 15:35 | HO.PSYCHPN ---
Subjective Subjective Date of Service: 11/24/21 Reason For Visit: psychotic disorder Subjective Notes: Conditional Voluntary Interim History: the nursing staff reports that the patient reports sporadic auditory hallucination but she responds to internal stimuli mostly in the afternoon. On interview the patient reports some auditory hallucination but looks less distressed. We discussed risks, benefits, side-effects and alternatives and she agreed to increase slightly Clozaril in the afternoon. Mental Status Exam Mental Status Exam Patient Appearance: Well Grooomed Patient Orientation: Person Level of Consciousness: Awake Patient Behavior: Cooperative Mood Description: Constricted Affect Description: Depressed Patient Cognition Impaired: Yes Ability to Follow Directions: Good Speech Pattern: Clear Hallucinations: None Delusions: Not Present Thought Process: Distracted Thought Content: positive for Poverty of Content Judgement: Fair Diagnostics Vital Signs (24Hr): Vital Signs - 24 hr 11/23/21 18:00 11/24/21 08:07 Temperature 97.6 F 97.1 F Pulse Rate 92 82 Respiratory Rate 16 17 Blood Pressure 145/67 H 121/64 Pulse Oximetry 98 98 BMI result Body Mass Index 27.0 Labs Results: 10/26/21 07:50 11/01/21 07:05 Labs: Laboratory Results - last 48 hr 11/24/21 08:59 Absolute Neuts (auto) 3.7 Imaging Radiology Impressions: ITS Impressions Head CT 10/08/21 15:16 IMPRESSION: No acute intracranial pathology. Head CT 10/09/21 13:54 IMPRESSION: No acute intracranial pathology. Pelvic/Transvag US 10/13/21 09:24 IMPRESSION: Abnormally thickened endometrium for a postmenopausal patient measuring 0.9 cm. 3 x 2.7 x 3.7 cm mass in the posterior cervix. This may represent a fibroid. Slightly thickened trabeculated bladder wall. Head CT 10/20/21 08:18 IMPRESSION: No acute intracranial pathology. This critical result was discussed with Dr. Chu at 8:30 hours on 10/20/2021. It was ascertained that the content and urgency of the report was understood at the time of direct communication. Head CT 11/20/21 19:29 IMPRESSION: No acute intracranial pathology. Medications Medications Current Medications Acetaminophen (Acetaminophen 325 Mg Tablet) 650 mg PO Q6H PRN PRN Reason: Headache/Pain Mild Scale (1-3) Last Admin: 11/21/21 23:00 Dose: 650 mg Documented by: Al Hydroxide/Mg Hydroxide (Magnesium Hydrox/Alum Hydrox 30 Ml Oral.Susp) 30 ml PO Q6H PRN PRN Reason: Heartburn/Nausea Apixaban (Apixaban 5 Mg Tablet) 5 mg PO BID [facility] Last Admin: 11/24/21 08:15 Dose: 5 mg Documented by: Benztropine Mesylate (Benztropine Mesylate 1 Mg Tablet) 1 mg PO BID [facility] Last Admin: 11/24/21 08:15 Dose: 1 mg Documented by: Bisacodyl (Bisacodyl 10 Mg Supp.Rect) 10 mg [place] DAILY PRN PRN Reason: Constipation Last Admin: 11/19/21 21:06 Dose: 10 mg Documented by: Clozapine (Clozapine 100 Mg Tablet) 200 mg PO BEDTIME [facility] Last Admin: 11/23/21 20:47 Dose: 200 mg Documented by: Clozapine (Clozapine 100 Mg Tablet) 100 mg PO DAILY [facility] Clozapine 100 mg/ Clozapine 50 (mg) 150 mg PO DAILY@1700 [facility] Desmopressin Acetate (Desmopressin Acetate 0.2 Mg Tablet) 0.2 mg PO BID [facility] Last Admin: 11/24/21 08:15 Dose: 0.2 mg Documented by: Hydrochlorothiazide (Hydrochlorothiazide 25 Mg Tablet) 25 mg PO DAILY [facility]; Protocol Last Admin: 11/24/21 08:15 Dose: 25 mg Documented by: Hydroxyzine HCl (Hydroxyzine Hcl 25 Mg Tablet) 25 mg PO BEDTIME PRN PRN Reason: Anxiety Last Admin: 11/24/21 00:25 Dose: 25 mg Documented by: Hydroxyzine HCl (Hydroxyzine Hcl 25 Mg Tablet) 25 mg PO BID PRN PRN Reason: Anxiety Last Admin: 11/19/21 04:28 Dose: 25 mg Documented by: Loperamide HCl (Loperamide Hcl 2 Mg Capsule) 4 mg PO Q4H PRN PRN Reason: Diarrhea Last Admin: 11/01/21 17:04 Dose: 4 mg Documented by: Magnesium Hydroxide (Milk Of Magnesia 30 Ml Oral.Susp) 30 ml PO DAILY PRN PRN Reason: Constipation Last Admin: 11/19/21 00:53 Dose: 30 ml Documented by: Mirtazapine (Mirtazapine 15 Mg Tablet) 15 mg PO BEDTIME [facility] Last Admin: 11/23/21 20:48 Dose: 15 mg Documented by: Olanzapine (Olanzapine 10 Mg Vial) 5 mg IM TID PRN PRN Reason: Psychosis Last Admin: 11/21/21 13:10 Dose: 5 mg Documented by: Potassium Chloride (Potassium Chloride Er 10 Meq Capsule.Er) 40 meq PO BID [facility] Last Admin: 11/24/21 08:14 Dose: 40 meq Documented by: Trazodone HCl (Trazodone Hcl 50 Mg Tablet) 50 mg PO BEDTIME PRN PRN Reason: Insomnia Last Admin: 11/23/21 20:49 Dose: 50 mg Documented by: Trolamine Salicylate/Aloe Vera (Trolamine Salicylate 10%/Aloe Cream 35.4 Gm) 1 appl TOPICAL TID PRN PRN Reason: neck pain Last Admin: 11/19/21 21:37 Dose: 1 appl Documented by: Allergies Allergies Allergy/AdvReac Type Severity Reaction Status Date / Time No Known Allergies Allergy Unverified 05/01/20 19:42 [No Known Allergies*] Assessment & Plan Assessment & Plan (1) Schizophrenia, paranoid, chronic with acute exacerbation: Status: Acute Code(s): F20.0 - Paranoid schizophrenia (2) Hypertension: Status: Acute Code(s): I10 - Essential (primary) hypertension Plan Elderly female with a long history of schizoaffective disorder bipolar type who was admitted into the facility for exacerbation of psychosis and mood lability. The patient is on Clozaril and apparently she has not been fully compliant with treatment. 11/21 slipped, hit head on 11/20, head CT reviewed and unremarkable Plan 1. The patient at this moment is on 2 psychotics, Clozaril and Invega Sustenna. Her last dose of Invega was less week. Apparently her psychosis has Worsened since she is poorly compliant with Clozaril p.o.. We discussed on rounds at length and legally we can add PRNs IM as per healthcare proxy. 2. Zyprexa 5 mg IM p.r.n. the patient refuses Clozaril. 3. Increase Clozaril to 100 mg p.o. b.i.d. to 100 in the morning and 150 in the afternoon. 4. Rest the same I spent ___20___ minutes with the patient and/or on the patient floor today, greater than?50% of which was spent counseling/coordinating care. Reason for contiued inpatient stay Substantial Risk for: inability to function, rapid decompensation and med/psych decompensation
[2021-11-24] MEDS: cloZAPine 100 MG, cloZAPine 50 MG 150 MG PO (16:52)
[2021-11-24 18:00] VITALS: BP 101/63; PULSE 93; RESP 18; TEMP 36.5; O2SAT 100
[2021-11-24] MEDS: traZODone HCL 50 MG TABLET PO ×2 (20:22→21:54)
[2021-11-24] MEDS: Mirtazapine 15 MG TABLET PO (20:23)
[2021-11-24] MEDS: cloZAPine 100 MG TABLET 200 MG PO (20:23)
[2021-11-24] MEDS: Acetaminophen 325 MG TABLET 650 MG PO (20:24)
[2021-11-25 06:00] VITALS: BP 107/53; PULSE 84; RESP 16; TEMP 36.6; O2SAT 96
--- NOTE | 2021-11-25 08:24 | HO.PSYCHPN ---
Subjective Subjective Date of Service: 11/25/21 Reason For Visit: psychotic disorder Subjective Notes: Conditional Voluntary Interim History: The nursing staff reported the patient was feeling good yesterday in the morning, she was pleasant and cooperative. The staff reported that in the evening she has being social, eating her meals and worried about her daughter's wedding. She needed trazodone but she was awake. Yesterday she could not sleep well but today she slept much better. On interview the patient asked about her discharge. She admitted sporadic auditory hallucinations. Mental Status Exam Mental Status Exam Patient Appearance: Appropriate Patient Orientation: Person and Situation Level of Consciousness: Awake and Restless Patient Behavior: Guarded, Cooperative and Suspicious Mood Description: Withdrawn Affect Description: Constricted Patient Cognition Impaired: Yes Ability to Follow Directions: Good Speech Pattern: Clear Hallucinations: Auditory Delusions: Paranoid Ideation Thought Process: Distracted and Evasive Thought Content: positive for [place], positive for Circumstantial, positive for Goal Oriented and positive for Poverty of Content Judgement: Fair Diagnostics Vital Signs (24Hr): Vital Signs - 24 hr 11/24/21 18:00 Temperature 97.7 F Pulse Rate 93 Respiratory Rate 18 Blood Pressure 101/63 Pulse Oximetry 100 BMI result Body Mass Index 27.0 Labs Results: 10/26/21 07:50 11/01/21 07:05 Labs: Laboratory Results - last 48 hr 11/24/21 08:59 Absolute Neuts (auto) 3.7 Imaging Radiology Impressions: ITS Impressions Head CT 10/08/21 15:16 IMPRESSION: No acute intracranial pathology. Head CT 10/09/21 13:54 IMPRESSION: No acute intracranial pathology. Pelvic/Transvag US 10/13/21 09:24 IMPRESSION: Abnormally thickened endometrium for a postmenopausal patient measuring 0.9 cm. 3 x 2.7 x 3.7 cm mass in the posterior cervix. This may represent a fibroid. Slightly thickened trabeculated bladder wall. Head CT 10/20/21 08:18 IMPRESSION: No acute intracranial pathology. This critical result was discussed with Dr. Chu at 8:30 hours on 10/20/2021. It was ascertained that the content and urgency of the report was understood at the time of direct communication. Head CT 11/20/21 19:29 IMPRESSION: No acute intracranial pathology. Medications Medications Current Medications Acetaminophen (Acetaminophen 325 Mg Tablet) 650 mg PO Q6H PRN PRN Reason: Headache/Pain Mild Scale (1-3) Last Admin: 11/24/21 20:24 Dose: 650 mg Documented by: Al Hydroxide/Mg Hydroxide (Magnesium Hydrox/Alum Hydrox 30 Ml Oral.Susp) 30 ml PO Q6H PRN PRN Reason: Heartburn/Nausea Apixaban (Apixaban 5 Mg Tablet) 5 mg PO BID [facility] Last Admin: 11/24/21 20:23 Dose: 5 mg Documented by: Benztropine Mesylate (Benztropine Mesylate 1 Mg Tablet) 1 mg PO BID [facility] Last Admin: 11/24/21 20:23 Dose: 1 mg Documented by: Bisacodyl (Bisacodyl 10 Mg Supp.Rect) 10 mg [place] DAILY PRN PRN Reason: Constipation Last Admin: 11/19/21 21:06 Dose: 10 mg Documented by: Clozapine (Clozapine 100 Mg Tablet) 200 mg PO BEDTIME [facility] Last Admin: 11/24/21 20:23 Dose: 200 mg Documented by: Clozapine (Clozapine 100 Mg Tablet) 100 mg PO DAILY [facility] Clozapine (Clozapine 100 Mg Tablet) 150 mg PO DAILY@1700 [facility] Desmopressin Acetate (Desmopressin Acetate 0.2 Mg Tablet) 0.2 mg PO BID [facility] Last Admin: 11/24/21 20:22 Dose: 0.2 mg Documented by: Hydrochlorothiazide (Hydrochlorothiazide 25 Mg Tablet) 25 mg PO DAILY [facility]; Protocol Last Admin: 11/24/21 08:15 Dose: 25 mg Documented by: Hydroxyzine HCl (Hydroxyzine Hcl 25 Mg Tablet) 25 mg PO BEDTIME PRN PRN Reason: Anxiety Last Admin: 11/24/21 00:25 Dose: 25 mg Documented by: Hydroxyzine HCl (Hydroxyzine Hcl 25 Mg Tablet) 25 mg PO BID PRN PRN Reason: Anxiety Last Admin: 11/19/21 04:28 Dose: 25 mg Documented by: Loperamide HCl (Loperamide Hcl 2 Mg Capsule) 4 mg PO Q4H PRN PRN Reason: Diarrhea Last Admin: 11/01/21 17:04 Dose: 4 mg Documented by: Magnesium Hydroxide (Milk Of Magnesia 30 Ml Oral.Susp) 30 ml PO DAILY PRN PRN Reason: Constipation Last Admin: 11/19/21 00:53 Dose: 30 ml Documented by: Mirtazapine (Mirtazapine 15 Mg Tablet) 15 mg PO BEDTIME [facility] Last Admin: 11/24/21 20:23 Dose: 15 mg Documented by: Olanzapine (Olanzapine 10 Mg Vial) 5 mg IM TID PRN PRN Reason: Psychosis Last Admin: 11/21/21 13:10 Dose: 5 mg Documented by: Potassium Chloride (Potassium Chloride Er 10 Meq Capsule.Er) 40 meq PO BID [facility] Last Admin: 11/24/21 20:23 Dose: 40 meq Documented by: Trazodone HCl (Trazodone Hcl 50 Mg Tablet) 50 mg PO BEDTIME PRN PRN Reason: Insomnia Last Admin: 11/24/21 21:54 Dose: 50 mg Documented by: Trolamine Salicylate/Aloe Vera (Trolamine Salicylate 10%/Aloe Cream 35.4 Gm) 1 appl TOPICAL TID PRN PRN Reason: neck pain Last Admin: 11/19/21 21:37 Dose: 1 appl Documented by: Allergies Allergies Allergy/AdvReac Type Severity Reaction Status Date / Time No Known Allergies Allergy Unverified 05/01/20 19:42 [No Known Allergies*] Assessment & Plan Assessment & Plan (1) Schizophrenia, paranoid, chronic with acute exacerbation: Status: Acute Code(s): F20.0 - Paranoid schizophrenia (2) Hypertension: Status: Acute Code(s): I10 - Essential (primary) hypertension Plan Elderly female with a long history of schizoaffective disorder bipolar type who was admitted into the facility for exacerbation of psychosis and mood lability. The patient is on Clozaril and apparently she has not been fully compliant with treatment. 11/21 slipped, hit head on 11/20, head CT reviewed and unremarkable Plan 1. The patient at this moment is on 2 psychotics, Clozaril and Invega Sustenna. Her last dose of Invega was less week. Apparently her psychosis has Worsened since she is poorly compliant with Clozaril p.o.. We discussed on rounds at length and legally we can add PRNs IM as per healthcare proxy. 2. Zyprexa 5 mg IM p.r.n. the patient refuses Clozaril. 3. Increase Clozaril to 100 mg p.o. b.i.d. to 100 in the morning and 150 in the afternoon. 4. Rest the same I spent __20____ minutes with the patient and/or on the patient floor today, greater than?50% of which was spent counseling/coordinating care. Reason for contiued inpatient stay Substantial Risk for: inability to function, rapid decompensation and med/psych decompensation
[2021-11-25] MEDS: Desmopressin Acetate 0.2 MG TABLET PO ×2 (09:58→21:08)
[2021-11-25] MEDS: cloZAPine 100 MG TABLET PO (09:58)
[2021-11-25] MEDS: Apixaban 5 MG TABLET PO ×2 (09:58→21:08)
[2021-11-25] MEDS: hydroCHLOROthiazide 25 MG TABLET PO (09:59)
[2021-11-25] MEDS: Benztropine Mesylate 1 MG TABLET PO ×2 (09:59→21:08)
[2021-11-25] MEDS: cloZAPine 100 MG TABLET 150 MG PO (16:53)
[2021-11-25 16:57] VITALS: BP 118/66; PULSE 97; RESP 18; TEMP 36.6; O2SAT 96
[2021-11-25] MEDS: Acetaminophen 325 MG TABLET 650 MG PO (21:07)
[2021-11-25] MEDS: Mirtazapine 15 MG TABLET PO (21:08)
[2021-11-25] MEDS: traZODone HCL 50 MG TABLET PO (21:08)
[2021-11-25] MEDS: cloZAPine 100 MG TABLET 200 MG PO (21:09)
[2021-11-26 07:00] VITALS: BMI 27.1
--- NOTE | 2021-11-26 08:23 | P.PNPSI_ITS ---
Subjective Subjective Date of Service: 11/26/21 Reason For Visit: psychotic disorder Subjective Notes: Conditional Voluntary Interim History: The nursing staff reported the patient has been med compliant, she needed a lot of encouragement for p.o. Clozaril. Last night she slept well and yesterday she spent most of the time out in the patio. On interview the patient reports that she has some auditory hallucinations. We discussed in team the possibility of giving her Invega Sustenna air earlier since she had a good response the 1st week after the shots. Mental Status Exam Mental Status Exam Patient Appearance: Appropriate Patient Orientation: Person and Situation Level of Consciousness: Appropriate and Restless Patient Behavior: Guarded, Passive and Suspicious Mood Description: Withdrawn Affect Description: Constricted Patient Cognition Impaired: Yes Ability to Follow Directions: Fair Speech Pattern: Clear Memory Description: Intact Hallucinations: Auditory Delusions: Paranoid Ideation Thought Process: Illogical and Distracted Thought Content: positive for [place], positive for Circumstantial and positive for Poverty of Content Judgement: Fair Diagnostics Vital Signs (24Hr): Vital Signs - 24 hr 11/25/21 16:57 Temperature 97.9 F Pulse Rate 97 Respiratory Rate 18 Blood Pressure 118/66 Pulse Oximetry 96 BMI result Body Mass Index 27.0 Labs Results: 10/26/21 07:50 11/01/21 07:05 Labs: Laboratory Results - last 48 hr 11/20/21 11/24/21 15:15 08:59 Absolute Neuts (auto) 3.7 Ref Lab Test Result SEE COMMENT Imaging Radiology Impressions: ITS Impressions Head CT 10/08/21 15:16 IMPRESSION: No acute intracranial pathology. Head CT 10/09/21 13:54 IMPRESSION: No acute intracranial pathology. Pelvic/Transvag US 10/13/21 09:24 IMPRESSION: Abnormally thickened endometrium for a postmenopausal patient measuring 0.9 cm. 3 x 2.7 x 3.7 cm mass in the posterior cervix. This may represent a fibroid. Slightly thickened trabeculated bladder wall. Head CT 10/20/21 08:18 IMPRESSION: No acute intracranial pathology. This critical result was discussed with Dr. Chu at 8:30 hours on 10/20/2021. It was ascertained that the content and urgency of the report was understood at the time of direct communication. Head CT 11/20/21 19:29 IMPRESSION: No acute intracranial pathology. Medications Medications Current Medications Acetaminophen (Acetaminophen 325 Mg Tablet) 650 mg PO Q6H PRN PRN Reason: Headache/Pain Mild Scale (1-3) Last Admin: 11/25/21 21:07 Dose: 650 mg Documented by: Al Hydroxide/Mg Hydroxide (Magnesium Hydrox/Alum Hydrox 30 Ml Oral.Susp) 30 ml PO Q6H PRN PRN Reason: Heartburn/Nausea Apixaban (Apixaban 5 Mg Tablet) 5 mg PO BID [facility] Last Admin: 11/25/21 21:08 Dose: 5 mg Documented by: Benztropine Mesylate (Benztropine Mesylate 1 Mg Tablet) 1 mg PO BID [facility] Last Admin: 11/25/21 21:08 Dose: 1 mg Documented by: Bisacodyl (Bisacodyl 10 Mg Supp.Rect) 10 mg [place] DAILY PRN PRN Reason: Constipation Last Admin: 11/19/21 21:06 Dose: 10 mg Documented by: Clozapine (Clozapine 100 Mg Tablet) 200 mg PO BEDTIME [facility] Last Admin: 11/25/21 21:09 Dose: 200 mg Documented by: Clozapine (Clozapine 100 Mg Tablet) 100 mg PO DAILY [facility] Last Admin: 11/25/21 09:58 Dose: 100 mg Documented by: Clozapine (Clozapine 100 Mg Tablet) 150 mg PO DAILY@1700 [facility] Last Admin: 11/25/21 16:53 Dose: 150 mg Documented by: Desmopressin Acetate (Desmopressin Acetate 0.2 Mg Tablet) 0.2 mg PO BID [facility] Last Admin: 11/25/21 21:08 Dose: 0.2 mg Documented by: Hydrochlorothiazide (Hydrochlorothiazide 25 Mg Tablet) 25 mg PO DAILY [facility]; Protocol Last Admin: 11/25/21 09:59 Dose: 25 mg Documented by: Hydroxyzine HCl (Hydroxyzine Hcl 25 Mg Tablet) 25 mg PO BEDTIME PRN PRN Reason: Anxiety Last Admin: 11/24/21 00:25 Dose: 25 mg Documented by: Hydroxyzine HCl (Hydroxyzine Hcl 25 Mg Tablet) 25 mg PO BID PRN PRN Reason: Anxiety Last Admin: 11/19/21 04:28 Dose: 25 mg Documented by: Loperamide HCl (Loperamide Hcl 2 Mg Capsule) 4 mg PO Q4H PRN PRN Reason: Diarrhea Last Admin: 11/01/21 17:04 Dose: 4 mg Documented by: Magnesium Hydroxide (Milk Of Magnesia 30 Ml Oral.Susp) 30 ml PO DAILY PRN PRN Reason: Constipation Last Admin: 11/19/21 00:53 Dose: 30 ml Documented by: Mirtazapine (Mirtazapine 15 Mg Tablet) 15 mg PO BEDTIME [facility] Last Admin: 11/25/21 21:08 Dose: 15 mg Documented by: Olanzapine (Olanzapine 10 Mg Vial) 5 mg IM TID PRN PRN Reason: Psychosis Last Admin: 11/21/21 13:10 Dose: 5 mg Documented by: Potassium Chloride (Potassium Chloride Er 10 Meq Capsule.Er) 40 meq PO BID [facility] Last Admin: 11/25/21 21:08 Dose: 40 meq Documented by: Trazodone HCl (Trazodone Hcl 50 Mg Tablet) 50 mg PO BEDTIME PRN PRN Reason: Insomnia Last Admin: 11/25/21 21:08 Dose: 50 mg Documented by: Trolamine Salicylate/Aloe Vera (Trolamine Salicylate 10%/Aloe Cream 35.4 Gm) 1 appl TOPICAL TID PRN PRN Reason: neck pain Last Admin: 11/19/21 21:37 Dose: 1 appl Documented by: Allergies Allergies Allergy/AdvReac Type Severity Reaction Status Date / Time No Known Allergies Allergy Unverified 05/01/20 19:42 [No Known Allergies*] Assessment & Plan Assessment & Plan (1) Schizophrenia, paranoid, chronic with acute exacerbation: Status: Acute Code(s): F20.0 - Paranoid schizophrenia (2) Hypertension: Status: Acute Code(s): I10 - Essential (primary) hypertension Plan Elderly female with a long history of schizoaffective disorder bipolar type who was admitted into the facility for exacerbation of psychosis and mood lability. The patient is on Clozaril and apparently she has not been fully com pliant with treatment. 11/21 slipped, hit head on 11/20, head CT reviewed and unremarkable Plan 1. The patient at this moment is on 2 psychotics, Clozaril and Invega Sustenna. Her last dose of Invega was less week. Apparently her psychosis has Worsened since she is poorly compliant with Clozaril p.o.. We discussed on rounds at length and legally we can add PRNs IM as per healthcare proxy. 2. Zyprexa 5 mg IM p.r.n. the patient refuses Clozaril. 3. Keep Clozaril 100 mg p.o. in the morning and 150 in the afternoon. 4. Rest the same I spent __20____ minutes with the patient and/or on the patient floor today, greater than?50% of which was spent counseling/coordinating care. Reason for contiued inpatient stay Substantial Risk for: inability to function, rapid decompensation and med/psych decompensation
[2021-11-26 10:51] VITALS: BP 147/55; PULSE 101; RESP 17; TEMP 37.1; O2SAT 95
[2021-11-26] MEDS: cloZAPine 100 MG TABLET PO (10:53)
[2021-11-26] MEDS: hydroCHLOROthiazide 25 MG TABLET PO (10:53)
[2021-11-26] MEDS: Apixaban 5 MG TABLET PO ×2 (10:53→20:54)
[2021-11-26] MEDS: Benztropine Mesylate 1 MG TABLET PO ×2 (10:53→20:54)
[2021-11-26] MEDS: Desmopressin Acetate 0.2 MG TABLET PO ×2 (10:54→20:55)
[2021-11-26] MEDS: cloZAPine 100 MG TABLET 150 MG PO (16:46)
[2021-11-26 18:00] VITALS: BP 110/60; PULSE 96; RESP 18; TEMP 36.1; O2SAT 97
[2021-11-26] MEDS: cloZAPine 100 MG TABLET 200 MG PO (20:55)
[2021-11-26] MEDS: Mirtazapine 15 MG TABLET PO (20:55)
[2021-11-26] MEDS: traZODone HCL 50 MG TABLET PO (20:56)
[2021-11-27 08:06] VITALS: BP 112/57; PULSE 87; RESP 16; TEMP 37; O2SAT 92
--- NOTE | 2021-11-27 08:19 | HO.PSYCHPN ---
Subjective Subjective Date of Service: 11/27/21 Reason For Visit: psychotic disorder Subjective Notes: Conditional Voluntary Interim History: The nursing staff reported the patient has been med compliant with medication with encouragement. She has not been yelling but she complained of auditory hallucinations. She went out for fresh air breaks and she is now on one-to-one but most likely she will be okay on 5 minute checks. She took trazodone at night for insomnia. On interview the patient reports auditory hallucinations. I talked with her and discussed the possibility of having her Invega Sustenna at an earlier to improve antipsychotic effect. Mental Status Exam Mental Status Exam Patient Appearance: Appropriate Patient Orientation: Person and Situation Level of Consciousness: Awake Patient Behavior: Guarded and Suspicious Mood Description: Suspicious and Withdrawn Affect Description: Constricted Patient Cognition Impaired: Yes Ability to Follow Directions: Good Speech Pattern: Clear Hallucinations: Auditory Delusions: Paranoid Ideation Thought Process: Illogical, Distracted and Evasive Thought Content: positive for Obsess[place] Thoughts and positive for Poverty of Content Judgement: Fair Diagnostics Vital Signs (24Hr): Vital Signs - 24 hr 11/26/21 10:51 11/26/21 18:00 11/27/21 08:06 Temperature 98.7 F 97 F 98.6 F Pulse Rate 101 H 96 87 Respiratory Rate 17 18 16 Blood Pressure 147/55 H 110/60 112/57 L Pulse Oximetry 95 97 92 BMI result Body Mass Index 27.1 Labs Results: 10/26/21 07:50 11/01/21 07:05 Labs: Laboratory Results - last 48 hr 11/20/21 15:15 Ref Lab Test Result SEE COMMENT Imaging Radiology Impressions: ITS Impressions Head CT 10/08/21 15:16 IMPRESSION: No acute intracranial pathology. Head CT 10/09/21 13:54 IMPRESSION: No acute intracranial pathology. Pelvic/Transvag US 10/13/21 09:24 IMPRESSION: Abnormally thickened endometrium for a postmenopausal patient measuring 0.9 cm. 3 x 2.7 x 3.7 cm mass in the posterior cervix. This may represent a fibroid. Slightly thickened trabeculated bladder wall. Head CT 10/20/21 08:18 IMPRESSION: No acute intracranial pathology. This critical result was discussed with Dr. Chu at 8:30 hours on 10/20/2021. It was ascertained that the content and urgency of the report was understood at the time of direct communication. Head CT 11/20/21 19:29 IMPRESSION: No acute intracranial pathology. Medications Medications Current Medications Acetaminophen (Acetaminophen 325 Mg Tablet) 650 mg PO Q6H PRN PRN Reason: Headache/Pain Mild Scale (1-3) Last Admin: 11/25/21 21:07 Dose: 650 mg Documented by: Al Hydroxide/Mg Hydroxide (Magnesium Hydrox/Alum Hydrox 30 Ml Oral.Susp) 30 ml PO Q6H PRN PRN Reason: Heartburn/Nausea Apixaban (Apixaban 5 Mg Tablet) 5 mg PO BID [facility] Last Admin: 11/26/21 20:54 Dose: 5 mg Documented by: Benztropine Mesylate (Benztropine Mesylate 1 Mg Tablet) 1 mg PO BID [facility] Last Admin: 11/26/21 20:54 Dose: 1 mg Documented by: Bisacodyl (Bisacodyl 10 Mg Supp.Rect) 10 mg [place] DAILY PRN PRN Reason: Constipation Last Admin: 11/19/21 21:06 Dose: 10 mg Documented by: Clozapine (Clozapine 100 Mg Tablet) 200 mg PO BEDTIME [facility] Last Admin: 11/26/21 20:55 Dose: 200 mg Documented by: Clozapine (Clozapine 100 Mg Tablet) 100 mg PO DAILY [facility] Last Admin: 11/26/21 10:53 Dose: 100 mg Documented by: Clozapine (Clozapine 100 Mg Tablet) 150 mg PO DAILY@1700 [facility] Last Admin: 11/26/21 16:46 Dose: 150 mg Documented by: Desmopressin Acetate (Desmopressin Acetate 0.2 Mg Tablet) 0.2 mg PO BID [facility] Last Admin: 11/26/21 20:55 Dose: 0.2 mg Documented by: Hydrochlorothiazide (Hydrochlorothiazide 25 Mg Tablet) 25 mg PO DAILY [facility]; Protocol Last Admin: 11/26/21 10:53 Dose: 25 mg Documented by: Hydroxyzine HCl (Hydroxyzine Hcl 25 Mg Tablet) 25 mg PO BEDTIME PRN PRN Reason: Anxiety Last Admin: 11/24/21 00:25 Dose: 25 mg Documented by: Hydroxyzine HCl (Hydroxyzine Hcl 25 Mg Tablet) 25 mg PO BID PRN PRN Reason: Anxiety Last Admin: 11/19/21 04:28 Dose: 25 mg Documented by: Loperamide HCl (Loperamide Hcl 2 Mg Capsule) 4 mg PO Q4H PRN PRN Reason: Diarrhea Last Admin: 11/01/21 17:04 Dose: 4 mg Documented by: Magnesium Hydroxide (Milk Of Magnesia 30 Ml Oral.Susp) 30 ml PO DAILY PRN PRN Reason: Constipation Last Admin: 11/19/21 00:53 Dose: 30 ml Documented by: Mirtazapine (Mirtazapine 15 Mg Tablet) 15 mg PO BEDTIME [facility] Last Admin: 11/26/21 20:55 Dose: 15 mg Documented by: Olanzapine (Olanzapine 10 Mg Vial) 5 mg IM TID PRN PRN Reason: Psychosis Last Admin: 11/21/21 13:10 Dose: 5 mg Documented by: Potassium Chloride (Potassium Chloride Er 10 Meq Capsule.Er) 40 meq PO BID [facility] Last Admin: 11/26/21 20:55 Dose: 40 meq Documented by: Trazodone HCl (Trazodone Hcl 50 Mg Tablet) 50 mg PO BEDTIME PRN PRN Reason: Insomnia Last Admin: 11/26/21 20:56 Dose: 50 mg Documented by: Trolamine Salicylate/Aloe Vera (Trolamine Salicylate 10%/Aloe Cream 35.4 Gm) 1 appl TOPICAL TID PRN PRN Reason: neck pain Last Admin: 11/19/21 21:37 Dose: 1 appl Documented by: Allergies Allergies Allergy/AdvReac Type Severity Reaction Status Date / Time No Known Allergies Allergy Unverified 05/01/20 19:42 [No Known Allergies*] Assessment & Plan Assessment & Plan (1) Schizophrenia, paranoid, chronic with acute exacerbation: Status: Acute Code(s): F20.0 - Paranoid schizophrenia (2) Hypertension: Status: Acute Code(s): I10 - Essential (primary) hypertension Plan Elderly female with a long history of schizoaffective disorder bipolar type who was admitted into the facility for exacerbation of psychosis and mood lability. The patient is on Clozaril and apparently she has not been fully compliant with treatment. 11/21 slipped, hit head on 11/20, head CT reviewed and unremarkable Plan 1. The patient at this moment is on 2 psychotics, Clozaril and Invega Sustenna. Her last dose of Invega was less week. Apparently her psychosis has Worsened since she is poorly compliant with Clozaril p.o.. We discussed on rounds at length and legally we can add PRNs IM as per healthcare proxy. 2. Zyprexa 5 mg IM p.r.n. the patient refuses Clozaril. 3. Keep Clozaril 100 mg p.o. in the morning and 150 in the afternoon. 4. Rest the same I spent ___20___ minutes with the patient and/or on the patient floor today, greater than?50% of which was spent counseling/coordinating care. Reason for contiued inpatient stay Substantial Risk for: inability to function, rapid decompensation and med/psych decompensation
[2021-11-27] MEDS: OLANZapine 10 MG VIAL 5 MG IM (12:27)
[2021-11-27] MEDS: cloZAPine 100 MG TABLET 150 MG PO (16:41)
[2021-11-27] MEDS: Acetaminophen 325 MG TABLET 650 MG PO (16:42)
[2021-11-27 18:00] VITALS: BP 119/56; PULSE 97; RESP 16; TEMP 36.6; O2SAT 100
[2021-11-27] MEDS: Mirtazapine 15 MG TABLET PO (20:19)
[2021-11-27] MEDS: cloZAPine 100 MG TABLET 200 MG PO (20:20)
[2021-11-28] MEDS: hydrOXYzine HCL 25 MG TABLET PO (03:13)
--- NOTE | 2021-11-28 03:23 | PC.NURSE ---
awake/she is having episodic outbursts where she will scream out shut up . despite 2 full cups of ice water she is very thirsty and wants an entire pitcher on ice water. she is suspicious of nursing staff. she is requesting medication to help her sleep. she has edema of her legs and abdomen appears protuberant. when clasping cup of water, she has a very pronounced tremor involving her hands. she has been medicated with atarax 25 mg po for anxiety.
[2021-11-28] MEDS: cloZAPine 100 MG TABLET PO (09:44)
--- NOTE | 2021-11-28 11:25 | P.PNPSI_ITS ---
Subjective Subjective Date of Service: 11/28/21 Reason For Visit: psychotic disorder Subjective Notes: Conditional Voluntary Healthcare Proxy: No Guardianship: No Interim History: Patient was seen and discussed in rounds today. She has been mostly compliant with her medications with no complaints or side effects. She does respond to internal stimuli and has auditory hallucinations. She is little anxious about h er daughter's wedding today. She is still tremulous and on 15 minute checks. No dangerous behaviors. No changes were made today Review of Systems Review of Systems Yes all other systems are reviewed and are negative Mental Status Exam Mental Status Exam Patient Appearance: Appropriate Patient Orientation: Person and Situation Level of Consciousness: Awake Patient Behavior: Guarded and Suspicious Mood Description: Suspicious and Withdrawn Affect Description: Constricted Patient Cognition Impaired: Yes Ability to Follow Directions: Good Speech Pattern: Clear Hallucinations: Auditory Delusions: Paranoid Ideation Thought Process: Illogical, Distracted and Evasive Thought Content: positive for Obsessional Thoughts and positive for Poverty of Content Judgement: Fair Diagnostics Vital Signs (24Hr): Vital Signs - 24 hr 11/27/21 18:00 Temperature 98 F Pulse Rate 97 Respiratory Rate 16 Blood Pressure 119/56 L Pulse Oximetry 100 BMI result Body Mass Index 27.1 Labs Results: 10/26/21 07:50 11/01/21 07:05 Imaging Radiology Impressions: ITS Impressions Head CT 10/08/21 15:16 IMPRESSION: No acute intracranial pathology. Head CT 10/09/21 13:54 IMPRESSION: No acute intracranial pathology. Pelvic/Transvag US 10/13/21 09:24 IMPRESSION: Abnormally thickened endometrium for a postmenopausal patient measuring 0.9 cm. 3 x 2.7 x 3.7 cm mass in the posterior cervix. This may represent a fibroid. Slightly thickened trabeculated bladder wall. Head CT 10/20/21 08:18 IMPRESSION: No acute intracranial pathology. This critical result was discussed with Dr. Chu at 8:30 hours on 10/20/2021. It was ascertained that the content and urgency of the report was understood at the time of direct communication. Head CT 11/20/21 19:29 IMPRESSION: No acute intracranial pathology. Medications Medications Current Medications Acetaminophen (Acetaminophen 325 Mg Tablet) 650 mg PO Q6H PRN PRN Reason: Headache/Pain Mild Scale (1-3) Last Admin: 11/27/21 16:42 Dose: 650 mg Documented by: Al Hydroxide/Mg Hydroxide (Magnesium Hydrox/Alum Hydrox 30 Ml Oral.Susp) 30 ml PO Q6H PRN PRN Reason: Heartburn/Nausea Apixaban (Apixaban 5 Mg Tablet) 5 mg PO BID [facility] Last Admin: 11/28/21 10:52 Dose: Not Given Documented by: Benztropine Mesylate (Benztropine Mesylate 1 Mg Tablet) 1 mg PO BID [facility] Last Admin: 11/28/21 10:52 Dose: Not Given Documented by: Bisacodyl (Bisacodyl 10 Mg Supp.Rect) 10 mg [place] DAILY PRN PRN Reason: Constipation Last Admin: 11/19/21 21:06 Dose: 10 mg Documented by: Clozapine (Clozapine 100 Mg Tablet) 200 mg PO BEDTIME [facility] Last Admin: 11/27/21 20:20 Dose: 200 mg Documented by: Clozapine (Clozapine 100 Mg Tablet) 100 mg PO DAILY [facility] Last Admin: 11/28/21 09:44 Dose: 100 mg Documented by: Clozapine (Clozapine 100 Mg Tablet) 150 mg PO DAILY@1700 [facility] Last Admin: 11/27/21 16:41 Dose: 150 mg Documented by: Desmopressin Acetate (Desmopressin Acetate 0.2 Mg Tablet) 0.2 mg PO BID [facility] Last Admin: 11/28/21 10:53 Dose: Not Given Documented by: Hydrochlorothiazide (Hydrochlorothiazide 25 Mg Tablet) 25 mg PO DAILY [facility]; Protocol Last Admin: 11/28/21 10:54 Dose: Not Given Documented by: Hydroxyzine HCl (Hydroxyzine Hcl 25 Mg Tablet) 25 mg PO BEDTIME PRN PRN Reason: Anxiety Last Admin: 11/24/21 00:25 Dose: 25 mg Documented by: Hydroxyzine HCl (Hydroxyzine Hcl 25 Mg Tablet) 25 mg PO BID PRN PRN Reason: Anxiety Last Admin: 11/28/21 03:13 Dose: 25 mg Documented by: Loperamide HCl (Loperamide Hcl 2 Mg Capsule) 4 mg PO Q4H PRN PRN Reason: Diarrhea Last Admin: 11/01/21 17:04 Dose: 4 mg Documented by: Magnesium Hydroxide (Milk Of Magnesia 30 Ml Oral.Susp) 30 ml PO DAILY PRN PRN Reason: Constipation Last Admin: 11/19/21 00:53 Dose: 30 ml Documented by: Mirtazapine (Mirtazapine 15 Mg Tablet) 15 mg PO BEDTIME [facility] Last Admin: 11/27/21 20:19 Dose: 15 mg Documented by: Olanzapine (Olanzapine 10 Mg Vial) 5 mg IM TID PRN PRN Reason: Psychosis Last Admin: 11/27/21 12:27 Dose: 5 mg Documented by: Potassium Chloride (Potassium Chloride Er 10 Meq Capsule.Er) 40 meq PO BID [facility] Last Admin: 11/28/21 10:55 Dose: Not Given Documented by: Trazodone HCl (Trazodone Hcl 50 Mg Tablet) 50 mg PO BEDTIME PRN PRN Reason: Insomnia Last Admin: 11/26/21 20:56 Dose: 50 mg Documented by: Trolamine Salicylate/Aloe Vera (Trolamine Salicylate 10%/Aloe Cream 35.4 Gm) 1 appl TOPICAL TID PRN PRN Reason: neck pain Last Admin: 11/19/21 21:37 Dose: 1 appl Documented by: Allergies Allergies Allergy/AdvReac Type Severity Reaction Status Date / Time No Known Allergies Allergy Unverified 05/01/20 19:42 [No Known Allergies*] Assessment & Plan Assessment & Plan (1) Schizophrenia, paranoid, chronic with acute exacerbation: Status: Acute Code(s): F20.0 - Paranoid schizophrenia (2) Hypertension: Status: Acute Code(s): I10 - Essential (primary) hypertension Plan Elderly female with a long history of schizoaffective disorder bipolar type who was admitted into the facility for exacerbation of psychosis and mood lability. The patient is on Clozaril and apparently she has not been fully compliant with treatment. 11/21 slipped, hit head on 11/20, head CT reviewed and unremarkable Plan 1. The patient at this moment is on 2 psychotics, Clozaril and Invega Sustenna. Her last dose of Invega was less week. Apparently her psychosis has Worsened since she is poorly compliant with Clozaril p.o.. We discussed on rounds at length and legally we can add PRNs IM as per healthcare proxy. 2. Zyprexa 5 mg IM p.r.n. the patient refuses Clozaril. 3. Keep Clozaril 100 mg p.o. in the morning and 150 in the afternoon. 4. Rest the same I spent minutes with the patient and/or on the patient floor today, greater than?50% of which was spent counseling/coordinating care. Reason for contiued inpatient stay Substantial Risk for: inability to function
[2021-11-28] MEDS: OLANZapine 10 MG VIAL 5 MG IM ×2 (17:13→21:52)
[2021-11-29] MEDS: hydrOXYzine HCL 25 MG TABLET PO ×2 (00:19→21:45)
[2021-11-29 06:00] VITALS: PULSE 88; TEMP 36.6; O2SAT 96
--- NOTE | 2021-11-29 09:23 | HO.PSYCHPN ---
Subjective Subjective Date of Service: 11/29/21 Reason For Visit: psychotic disorder Subjective Notes: Conditional Voluntary Interim History: Patient was seen and discussed in rounds today. She has been refusing Clozaril and was given IM Zyprexa. Sleeping 6 hours plus. Eating adequately. No complaints or side effects. No changes were made today Review of Systems Review of Systems Yes all other systems are reviewed and are negative Diagnostics Vital Signs (24Hr): BMI result Body Mass Index 27.1 Labs Results: 10/26/21 07:50 11/01/21 07:05 Imaging Radiology Impressions: ITS Impressions Head CT 10/08/21 15:16 IMPRESSION: No acute intracranial pathology. Head CT 10/09/21 13:54 IMPRESSION: No acute intracranial pathology. Pelvic/Transvag US 10/13/21 09:24 IMPRESSION: Abnormally thickened endometrium for a postmenopausal patient measuring 0.9 cm. 3 x 2.7 x 3.7 cm mass in the posterior cervix. This may represent a fibroid. Slightly thickened trabeculated bladder wall. Head CT 10/20/21 08:18 IMPRESSION: No acute intracranial pathology. This critical result was discussed with Dr. Chu at 8:30 hours on 10/20/2021. It was ascertained that the content and urgency of the report was understood at the time of direct communication. Head CT 11/20/21 19:29 IMPRESSION: No acute intracranial pathology. Medications Medications Current Medications Acetaminophen (Acetaminophen 325 Mg Tablet) 650 mg PO Q6H PRN PRN Reason: Headache/Pain Mild Scale (1-3) Last Admin: 11/27/21 16:42 Dose: 650 mg Documented by: Al Hydroxide/Mg Hydroxide (Magnesium Hydrox/Alum Hydrox 30 Ml Oral.Susp) 30 ml PO Q6H PRN PRN Reason: Heartburn/Nausea Apixaban (Apixaban 5 Mg Tablet) 5 mg PO BID [facility] Last Admin: 11/28/21 21:55 Dose: Not Given Documented by: Benztropine Mesylate (Benztropine Mesylate 1 Mg Tablet) 1 mg PO BID [facility] Last Admin: 11/28/21 21:56 Dose: Not Given Documented by: Bisacodyl (Bisacodyl 10 Mg Supp.Rect) 10 mg [place] DAILY PRN PRN Reason: Constipation Last Admin: 11/19/21 21:06 Dose: 10 mg Documented by: Clozapine (Clozapine 100 Mg Tablet) 200 mg PO BEDTIME [facility] Last Admin: 11/28/21 21:37 Dose: Not Given Documented by: Clozapine (Clozapine 100 Mg Tablet) 100 mg PO DAILY [facility] Last Admin: 11/28/21 09:44 Dose: 100 mg Documented by: Clozapine (Clozapine 100 Mg Tablet) 150 mg PO DAILY@1700 [facility] Last Admin: 11/28/21 17:15 Dose: Not Given Documented by: Desmopressin Acetate (Desmopressin Acetate 0.2 Mg Tablet) 0.2 mg PO BID [facility] Last Admin: 11/28/21 21:56 Dose: Not Given Documented by: Hydrochlorothiazide (Hydrochlorothiazide 25 Mg Tablet) 25 mg PO DAILY [facility]; Protocol Last Admin: 11/28/21 10:54 Dose: Not Given Documented by: Hydroxyzine HCl (Hydroxyzine Hcl 25 Mg Tablet) 25 mg PO BEDTIME PRN PRN Reason: Anxiety Last Admin: 11/29/21 00:19 Dose: 25 mg Documented by: Hydroxyzine HCl (Hydroxyzine Hcl 25 Mg Tablet) 25 mg PO BID PRN PRN Reason: Anxiety Last Admin: 11/28/21 03:13 Dose: 25 mg Documented by: Loperamide HCl (Loperamide Hcl 2 Mg Capsule) 4 mg PO Q4H PRN PRN Reason: Diarrhea Last Admin: 11/01/21 17:04 Dose: 4 mg Documented by: Magnesium Hydroxide (Milk Of Magnesia 30 Ml Oral.Susp) 30 ml PO DAILY PRN PRN Reason: Constipation Last Admin: 11/19/21 00:53 Dose: 30 ml Documented by: Mirtazapine (Mirtazapine 15 Mg Tablet) 15 mg PO BEDTIME [facility] Last Admin: 11/28/21 21:56 Dose: Not Given Documented by: Olanzapine (Olanzapine 10 Mg Vial) 5 mg IM TID PRN PRN Reason: Psychosis Last Admin: 11/28/21 21:52 Dose: 5 mg Documented by: Potassium Chloride (Potassium Chloride Er 10 Meq Capsule.Er) 40 meq PO BID [facility] Last Admin: 11/28/21 21:57 Dose: Not Given Documented by: Trazodone HCl (Trazodone Hcl 50 Mg Tablet) 50 mg PO BEDTIME PRN PRN Reason: Insomnia Last Admin: 11/26/21 20:56 Dose: 50 mg Documented by: Trolamine Salicylate/Aloe Vera (Trolamine Salicylate 10%/Aloe Cream 35.4 Gm) 1 appl TOPICAL TID PRN PRN Reason: neck pain Last Admin: 11/19/21 21:37 Dose: 1 appl Documented by: Allergies Allergies Allergy/AdvReac Type Severity Reaction Status Date / Time No Known Allergies Allergy Unverified 05/01/20 19:42 [No Known Allergies*] Assessment & Plan Assessment & Plan (1) Schizophrenia, paranoid, chronic with acute exacerbation: Status: Acute Code(s): F20.0 - Paranoid schizophrenia (2) Hypertension: Status: Acute Code(s): I10 - Essential (primary) hypertension Plan Elderly female with a long history of schizoaffective disorder bipolar type who was admitted into the facility for exacerbation of psychosis and mood lability. The patient is on Clozaril and apparently she has not been fully compliant with treatment. 11/21 slipped, hit head on 11/20, head CT reviewed and unremarkable Plan 1. The patient at this moment is on 2 psychotics, Clozaril and Invega Sustenna. Her last dose of Invega was less week. Apparently her psychosis has Worsened since she is poorly compliant with Clozaril p.o.. We discussed on rounds at length and legally we can add PRNs IM as per healthcare proxy. 2. Zyprexa 5 mg IM p.r.n. the patient refuses Clozaril. 3. Keep Clozaril 100 mg p.o. in the morning and 150 in the afternoon. 4. Rest the same 11/29: Continue current regimen and plans with no changes today I spent minutes with the patient and/or on the patient floor today, greater than?50% of which was spent counseling/coordinating care. Reason for contiued inpatient stay Substantial Risk for: inability to function
[2021-11-29] MEDS: OLANZapine 10 MG VIAL 5 MG IM (10:25)
[2021-11-29 18:00] VITALS: BP 118/56; PULSE 98; RESP 18; TEMP 36.4; O2SAT 97
[2021-11-29] MEDS: cloZAPine 100 MG TABLET 150 MG PO (18:40)
[2021-11-29] MEDS: Apixaban 5 MG TABLET PO (20:00)
[2021-11-29] MEDS: Benztropine Mesylate 1 MG TABLET PO (20:00)
[2021-11-29] MEDS: Desmopressin Acetate 0.2 MG TABLET PO (20:01)
[2021-11-29] MEDS: cloZAPine 100 MG TABLET 200 MG PO (20:01)
[2021-11-29] MEDS: Mirtazapine 15 MG TABLET PO (20:01)
[2021-11-29] MEDS: traZODone HCL 50 MG TABLET PO (21:45)
[2021-11-30 06:00] VITALS: BP 106/57; PULSE 81; RESP 16; TEMP 36.1; O2SAT 96
[2021-11-30] MEDS: cloZAPine 100 MG TABLET PO (10:09)
--- NOTE | 2021-11-30 14:40 | HO.PSYCHPN ---
Subjective Subjective Date of Service: 11/30/21 Reason For Visit: psychotic disorder Interim History: pt reports hearing voices that say dont' eat or you'll be...[something negative] however she says she's been more able to ignore it and says she ='s been eating today. Staff corroborates and reports pt eating and drinking today; staff reports no outbursts today and taking meds Mental Status Exam Mental Status Exam Narrative: Patient Appearance:?Well Grooomed Patient Orientation:?Person and Situation Level of Consciousness:?Awake and Restless Patient Behavior:? cooperative Mood Description:?Withdrawn Affect Description:?Constricted Patient Cognition Impaired:?Yes Ability to Follow Directions:?Fair Speech Pattern:?Clear Hallucinations:?Auditory Delusions:?Paranoid Ideation and Ideas of Reference Thought Process:?goal oriented Thought Content:?positive for Racing and positive for Loose Associations Judgement:?Fair Diagnostics Vital Signs (24Hr): Vital Signs - 24 hr 11/29/21 18:00 11/30/21 06:00 Temperature 97.5 F 97.0 F Pulse Rate 98 81 Respiratory Rate 18 16 Blood Pressure 118/56 L 106/57 L Pulse Oximetry 97 96 BMI result Body Mass Index 27.1 Labs Results: 10/26/21 07:50 11/01/21 07:05 Imaging Radiology Impressions: ITS Impressions Head CT 10/08/21 15:16 IMPRESSION: No acute intracranial pathology. Head CT 10/09/21 13:54 IMPRESSION: No acute intracranial pathology. Pelvic/Transvag US 10/13/21 09:24 IMPRESSION: Abnormally thickened endometrium for a postmenopausal patient measuring 0.9 cm. 3 x 2.7 x 3.7 cm mass in the posterior cervix. This may represent a fibroid. Slightly thickened trabeculated bladder wall. Head CT 10/20/21 08:18 IMPRESSION: No acute intracranial pathology. This critical result was discussed with Dr. Chu at 8:30 hours on 10/20/2021. It was ascertained that the content and urgency of the report was understood at the time of direct communication. Head CT 11/20/21 19:29 IMPRESSION: No acute intracranial pathology. Medications Medications Current Medications Acetaminophen (Acetaminophen 325 Mg Tablet) 650 mg PO Q6H PRN PRN Reason: Headache/Pain Mild Scale (1-3) Last Admin: 11/27/21 16:42 Dose: 650 mg Documented by: Al Hydroxide/Mg Hydroxide (Magnesium Hydrox/Alum Hydrox 30 Ml Oral.Susp) 30 ml PO Q6H PRN PRN Reason: Heartburn/Nausea Apixaban (Apixaban 5 Mg Tablet) 5 mg PO BID [facility] Last Admin: 11/30/21 10:27 Dose: Not Given Documented by: Benztropine Mesylate (Benztropine Mesylate 1 Mg Tablet) 1 mg PO BID [facility] Last Admin: 11/30/21 10:27 Dose: Not Given Documented by: Bisacodyl (Bisacodyl 10 Mg Supp.Rect) 10 mg [place] DAILY PRN PRN Reason: Constipation Last Admin: 11/19/21 21:06 Dose: 10 mg Documented by: Clozapine (Clozapine 100 Mg Tablet) 200 mg PO BEDTIME [facility] Last Admin: 11/29/21 20:01 Dose: 200 mg Documented by: Clozapine (Clozapine 100 Mg Tablet) 100 mg PO DAILY [facility] Last Admin: 11/30/21 10:09 Dose: 100 mg Documented by: Clozapine (Clozapine 100 Mg Tablet) 150 mg PO DAILY@1700 [facility] Last Admin: 11/29/21 18:40 Dose: 150 mg Documented by: Desmopressin Acetate (Desmopressin Acetate 0.2 Mg Tablet) 0.2 mg PO BID [facility] Last Admin: 11/30/21 10:27 Dose: Not Given Documented by: Hydrochlorothiazide (Hydrochlorothiazide 25 Mg Tablet) 25 mg PO DAILY [facility]; Protocol Last Admin: 11/30/21 10:27 Dose: Not Given Documented by: Hydroxyzine HCl (Hydroxyzine Hcl 25 Mg Tablet) 25 mg PO BEDTIME PRN PRN Reason: Anxiety Last Admin: 11/29/21 21:45 Dose: 25 mg Documented by: Hydroxyzine HCl (Hydroxyzine Hcl 25 Mg Tablet) 25 mg PO BID PRN PRN Reason: Anxiety Last Admin: 11/28/21 03:13 Dose: 25 mg Documented by: Loperamide HCl (Loperamide Hcl 2 Mg Capsule) 4 mg PO Q4H PRN PRN Reason: Diarrhea Last Admin: 11/01/21 17:04 Dose: 4 mg Documented by: Magnesium Hydroxide (Milk Of Magnesia 30 Ml Oral.Susp) 30 ml PO DAILY PRN PRN Reason: Constipation Last Admin: 11/19/21 00:53 Dose: 30 ml Documented by: Mirtazapine (Mirtazapine 15 Mg Tablet) 15 mg PO BEDTIME [facility] Last Admin: 11/29/21 20:01 Dose: 15 mg Documented by: Olanzapine (Olanzapine 10 Mg Vial) 5 mg IM TID PRN PRN Reason: Psychosis Last Admin: 11/29/21 10:25 Dose: 5 mg Documented by: Potassium Chloride (Potassium Chloride Er 10 Meq Capsule.Er) 40 meq PO BID [facility] Last Admin: 11/30/21 10:27 Dose: Not Given Documented by: Trazodone HCl (Trazodone Hcl 50 Mg Tablet) 50 mg PO BEDTIME PRN PRN Reason: Insomnia Last Admin: 11/29/21 21:45 Dose: 50 mg Documented by: Trolamine Salicylate/Aloe Vera (Trolamine Salicylate 10%/Aloe Cream 35.4 Gm) 1 appl TOPICAL TID PRN PRN Reason: neck pain Last Admin: 11/19/21 21:37 Dose: 1 appl Documented by: Allergies Allergies Allergy/AdvReac Type Severity Reaction Status Date / Time No Known Allergies Allergy Unverified 05/01/20 19:42 [No Known Allergies*] Assessment & Plan Assessment & Plan (1) Schizophrenia, paranoid, chronic with acute exacerbation: Status: Acute Code(s): F20.0 - Paranoid schizophrenia (2) Hypertension: Status: Acute Code(s): I10 - Essential (primary) hypertension Plan Elderly female with a long history of schizoaffective disorder bipolar type who was admitted into the facility for exacerbation of psychosis and mood lability. The patient is on Clozaril and apparently she has not been fully compliant with treatment. 11/21 slipped, hit head on 11/20, head CT reviewed and unremarkable Plan 1. The patient at this moment is on 2 psychotics, Clozaril and Invega Sustenna. Her last dose of Invega was less week. Apparently her psychosis has Worsened since she is poorly compliant with Clozaril p.o.. We discussed on rounds at length and legally we can add PRNs IM as per healthcare proxy. 2. Zyprexa 5 mg IM p.r.n. the patient refuses Clozaril. 3. Keep Clozaril 100 mg p.o. in the morning and 150 in the afternoon. 4. Rest the same 11/29: Continue current regimen and plans with no changes today 11/30 continue current tx plan I spent minutes with the patient and/or on the patient floor today, greater than?50% of which was spent counseling/coordinating care. Patient educated on: diagnosis Informed Consent: understands Reason for contiued inpatient stay Substantial Risk for: rapid decompensation
[2021-11-30] MEDS: cloZAPine 100 MG TABLET 150 MG PO (17:01)
[2021-11-30 18:00] VITALS: BP 113/60; PULSE 101; TEMP 36.3; O2SAT 100
[2021-11-30] MEDS: cloZAPine 100 MG TABLET 200 MG PO (20:11)
[2021-12-01 06:00] VITALS: BP 117/53; PULSE 95; RESP 14; TEMP 36.4; O2SAT 98
[2021-12-01 08:16] LABS: Neut%MD 68.5 %; Neutrophils Absolute Auto 4.2 x10*3/uL (2.0-8.3); WBCANC 6.2 X10*3/uL
[2021-12-01] MEDS: cloZAPine 100 MG TABLET PO (09:30)
[2021-12-01] MEDS: hydroCHLOROthiazide 25 MG TABLET PO (09:30)
[2021-12-01] MEDS: Desmopressin Acetate 0.2 MG TABLET PO ×2 (09:31→20:40)
[2021-12-01] MEDS: Apixaban 5 MG TABLET PO ×2 (09:31→20:40)
[2021-12-01] MEDS: Benztropine Mesylate 1 MG TABLET PO ×2 (09:31→20:40)
[2021-12-01] MEDS: Milk of Magnesia 30 ML ORAL.SUSP PO (15:13)
--- NOTE | 2021-12-01 15:18 | HO.PSYCHPN ---
Subjective Subjective Date of Service: 12/01/21 Reason For Visit: psychotic disorder Subjective Notes: Conditional Voluntary Interim History: The the nursing staff reported the patient is better with less auditory hallucinations, still internally preocupied. On interview, she reported sporadic AH, not doing well . We will give Vic Gilmore earlier. Mental Status Exam Mental Status Exam Patient Orientation: Person Level of Consciousness: Awake Patient Behavior: Appropriate Mood Description: Withdrawn Affect Description: Constricted Patient Cognition Impaired: No Ability to Follow Directions: Good Speech Pattern: Clear Hallucinations: Auditory Delusions: Paranoid Ideation Thought Process: Distracted Thought Content: positive for [place]ose [place] and positive for Thought Blocking Judgement: Fair Diagnostics Vital Signs (24Hr): Vital Signs - 24 hr 11/30/21 18:00 12/01/21 06:00 Temperature 97.3 F 97.6 F Pulse Rate 101 H 95 Respiratory Rate 14 Blood Pressure 113/60 117/53 L Pulse Oximetry 100 98 BMI result Body Mass Index 27.1 Labs Results: 10/26/21 07:50 11/01/21 07:05 Labs: Laboratory Results - last 48 hr 12/01/21 08:07 Absolute Neuts (auto) 4.2 Imaging Radiology Impressions: ITS Impressions Head CT 10/08/21 15:16 IMPRESSION: No acute intracranial pathology. Head CT 10/09/21 13:54 IMPRESSION: No acute intracranial pathology. Pelvic/Transvag US 10/13/21 09:24 IMPRESSION: Abnormally thickened endometrium for a postmenopausal patient measuring 0.9 cm. 3 x 2.7 x 3.7 cm mass in the posterior cervix. This may represent a fibroid. Slightly thickened trabeculated bladder wall. Head CT 10/20/21 08:18 IMPRESSION: No acute intracranial pathology. This critical result was discussed with Dr. Chu at 8:30 hours on 10/20/2021. It was ascertained that the content and urgency of the report was understood at the time of direct communication. Head CT 11/20/21 19:29 IMPRESSION: No acute intracranial pathology. Medications Medications Current Medications Acetaminophen (Acetaminophen 325 Mg Tablet) 650 mg PO Q6H PRN PRN Reason: Headache/Pain Mild Scale (1-3) Last Admin: 11/27/21 16:42 Dose: 650 mg Documented by: Al Hydroxide/Mg Hydroxide (Magnesium Hydrox/Alum Hydrox 30 Ml Oral.Susp) 30 ml PO Q6H PRN PRN Reason: Heartburn/Nausea Apixaban (Apixaban 5 Mg Tablet) 5 mg PO BID [facility] Last Admin: 12/01/21 09:31 Dose: 5 mg Documented by: Benztropine Mesylate (Benztropine Mesylate 1 Mg Tablet) 1 mg PO BID [facility] Last Admin: 12/01/21 09:31 Dose: 1 mg Documented by: Bisacodyl (Bisacodyl 10 Mg Supp.Rect) 10 mg [place] DAILY PRN PRN Reason: Constipation Last Admin: 11/19/21 21:06 Dose: 10 mg Documented by: Clozapine (Clozapine 100 Mg Tablet) 200 mg PO BEDTIME [facility] Last Admin: 11/30/21 20:11 Dose: 200 mg Documented by: Clozapine (Clozapine 100 Mg Tablet) 100 mg PO DAILY [facility] Last Admin: 12/01/21 09:30 Dose: 100 mg Documented by: Clozapine (Clozapine 100 Mg Tablet) 150 mg PO DAILY@1700 [facility] Last Admin: 11/30/21 17:01 Dose: 150 mg Documented by: Desmopressin Acetate (Desmopressin Acetate 0.2 Mg Tablet) 0.2 mg PO BID [facility] Last Admin: 12/01/21 09:31 Dose: 0.2 mg Documented by: Hydrochlorothiazide (Hydrochlorothiazide 25 Mg Tablet) 25 mg PO DAILY [facility]; Protocol Last Admin: 12/01/21 09:30 Dose: 25 mg Documented by: Hydroxyzine HCl (Hydroxyzine Hcl 25 Mg Tablet) 25 mg PO BEDTIME PRN PRN Reason: Anxiety Last Admin: 11/29/21 21:45 Dose: 25 mg Documented by: Hydroxyzine HCl (Hydroxyzine Hcl 25 Mg Tablet) 25 mg PO BID PRN PRN Reason: Anxiety Last Admin: 11/28/21 03:13 Dose: 25 mg Documented by: Loperamide HCl (Loperamide Hcl 2 Mg Capsule) 4 mg PO Q4H PRN PRN Reason: Diarrhea Last Admin: 11/01/21 17:04 Dose: 4 mg Documented by: Magnesium Hydroxide (Milk Of Magnesia 30 Ml Oral.Susp) 30 ml PO DAILY PRN PRN Reason: Constipation Last Admin: 12/01/21 15:13 Dose: 30 ml Documented by: Mirtazapine (Mirtazapine 15 Mg Tablet) 15 mg PO BEDTIME [facility] Last Admin: 11/30/21 20:15 Dose: Not Given Documented by: Olanzapine (Olanzapine 10 Mg Vial) 5 mg IM TID PRN PRN Reason: Psychosis Last Admin: 11/29/21 10:25 Dose: 5 mg Documented by: Potassium Chloride (Potassium Chloride Er 10 Meq Capsule.Er) 40 meq PO BID [facility] Last Admin: 12/01/21 09:32 Dose: 40 meq Documented by: Trazodone HCl (Trazodone Hcl 50 Mg Tablet) 50 mg PO BEDTIME PRN PRN Reason: Insomnia Last Admin: 11/29/21 21:45 Dose: 50 mg Documented by: Trolamine Salicylate/Aloe Vera (Trolamine Salicylate 10%/Aloe Cream 35.4 Gm) 1 appl TOPICAL TID PRN PRN Reason: neck pain Last Admin: 11/19/21 21:37 Dose: 1 appl Documented by: Allergies Allergies Allergy/AdvReac Type Severity Reaction Status Date / Time No Known Allergies Allergy Unverified 05/01/20 19:42 [No Known Allergies*] Assessment & Plan Assessment & Plan (1) Schizophrenia, paranoid, chronic with acute exacerbation: Status: Acute Code(s): F20.0 - Paranoid schizophrenia (2) Hypertension: Status: Acute Code(s): I10 - Essential (primary) hypertension Plan Elderly female with a long history of schizoaffective disorder bipolar type who was admitted into the facility for exacerbation of psychosis and mood lability. The patient is on Clozaril and apparently she has not been fully compliant with treatment. 11/21 slipped, hit head on 11/20, head CT reviewed and unremarkable Plan 1. The patient at this moment is on 2 psychotics, Clozaril and Invega Sustenna. Her last dose of Invega was less week. Apparently her psychosis has Worsened since she is poorly compliant with Clozaril p.o.. We discussed on rounds at length and legally we can add PRNs IM as per healthcare proxy. 2. Zyprexa 5 mg IM p.r.n. the patient refuses Clozaril. 3. Keep Clozaril 100 mg p.o. in the morning and 150 in the afternoon. 4. Rest the same I spent ___20___ minutes with the patient and/or on the patient floor today, greater than?50% of which was spent counseling/coordinating care. Reason for contiued inpatient stay Substantial Risk for: inability to function, rapid decompensation and med/psych decompensation
[2021-12-01] MEDS: cloZAPine 100 MG TABLET 150 MG PO (16:51)
[2021-12-01 18:00] VITALS: BP 118/59; PULSE 100; RESP 16; TEMP 36.3; O2SAT 100
[2021-12-01] MEDS: Mirtazapine 15 MG TABLET PO (20:40)
[2021-12-01] MEDS: cloZAPine 100 MG TABLET 200 MG PO (20:40)
[2021-12-01] MEDS: hydrOXYzine HCL 25 MG TABLET PO (22:17)
[2021-12-01] MEDS: traZODone HCL 50 MG TABLET PO (22:17)
[2021-12-02] MEDS: hydrOXYzine HCL 25 MG TABLET PO ×2 (02:04→16:59)
[2021-12-02] MEDS: traZODone HCL 50 MG TABLET PO (02:04)
[2021-12-02 07:56] VITALS: BP 113/62; PULSE 88; RESP 14; TEMP 36.3; O2SAT 99
[2021-12-02] MEDS: Benztropine Mesylate 1 MG TABLET PO (14:20)
[2021-12-02] MEDS: hydroCHLOROthiazide 25 MG TABLET PO (14:20)
[2021-12-02] MEDS: Apixaban 5 MG TABLET PO (14:20)
[2021-12-02] MEDS: Desmopressin Acetate 0.2 MG TABLET PO (14:21)
[2021-12-02] MEDS: cloZAPine 100 MG TABLET PO (14:22)
--- NOTE | 2021-12-02 16:08 | P.PNPSI_ITS ---
Subjective Subjective Date of Service: 12/02/21 Reason For Visit: psychotic disorder Subjective Notes: Conditional Voluntary Interim History: the nursing staff reported that yesterday the patient was doing fairly well, her daughter came and visited her in was very positive, they brought her a ring and later she was agitated and delusional. On interview, she reported not doing well , still delusional Mental Status Exam Mental Status Exam Patient Appearance: Well Grooomed Patient Orientation: Person and Situation Level of Consciousness: Awake Patient Behavior: Guarded and Suspicious Mood Description: Withdrawn Affect Description: Constricted Patient Cognition Impaired: Yes Ability to Follow Directions: Good Speech Pattern: Clear Hallucinations: Auditory Delusions: Paranoid Ideation Thought Content: positive for Linear Judgement: Fair Diagnostics Vital Signs (24Hr): Vital Signs - 24 hr 12/01/21 18:00 12/02/21 07:56 Temperature 97.4 F 97.3 F Pulse Rate 100 88 Respiratory Rate 16 14 Blood Pressure 118/59 L 113/62 Pulse Oximetry 100 99 BMI result Body Mass Index 27.1 Labs Results: 10/26/21 07:50 11/01/21 07:05 Labs: Laboratory Results - last 48 hr 12/01/21 08:07 Absolute Neuts (auto) 4.2 Imaging Radiology Impressions: ITS Impressions Head CT 10/08/21 15:16 IMPRESSION: No acute intracranial pathology. Head CT 10/09/21 13:54 IMPRESSION: No acute intracranial pathology. Pelvic/Transvag US 10/13/21 09:24 IMPRESSION: Abnormally thickened endometrium for a postmenopausal patient measuring 0.9 cm. 3 x 2.7 x 3.7 cm mass in the posterior cervix. This may represent a fibroid. Slightly thickened trabeculated bladder wall. Head CT 10/20/21 08:18 IMPRESSION: No acute intracranial pathology. This critical result was discussed with Dr. Chu at 8:30 hours on 10/20/2021. It was ascertained that the content and urgency of the report was understood at the time of direct communication. Head CT 11/20/21 19:29 IMPRESSION: No acute intracranial pathology. Medications Medications Current Medications Acetaminophen (Acetaminophen 325 Mg Tablet) 650 mg PO Q6H PRN PRN Reason: Headache/Pain Mild Scale (1-3) Last Admin: 11/27/21 16:42 Dose: 650 mg Documented by: Al Hydroxide/Mg Hydroxide (Magnesium Hydrox/Alum Hydrox 30 Ml Oral.Susp) 30 ml PO Q6H PRN PRN Reason: Heartburn/Nausea Apixaban (Apixaban 5 Mg Tablet) 5 mg PO BID [facility] Last Admin: 12/02/21 14:20 Dose: 5 mg Documented by: Benztropine Mesylate (Benztropine Mesylate 1 Mg Tablet) 1 mg PO BID [facility] Last Admin: 12/02/21 14:20 Dose: 1 mg Documented by: Bisacodyl (Bisacodyl 10 Mg Supp.Rect) 10 mg [place] DAILY PRN PRN Reason: Constipation Last Admin: 11/19/21 21:06 Dose: 10 mg Documented by: Clozapine (Clozapine 100 Mg Tablet) 200 mg PO BEDTIME [facility] Last Admin: 12/01/21 20:40 Dose: 200 mg Documented by: Clozapine (Clozapine 100 Mg Tablet) 100 mg PO DAILY [facility] Last Admin: 12/02/21 14:22 Dose: 100 mg Documented by: Clozapine (Clozapine 100 Mg Tablet) 150 mg PO DAILY@1700 [facility] Last Admin: 12/01/21 16:51 Dose: 150 mg Documented by: Desmopressin Acetate (Desmopressin Acetate 0.2 Mg Tablet) 0.2 mg PO BID [facility] Last Admin: 12/02/21 14:21 Dose: 0.2 mg Documented by: Hydrochlorothiazide (Hydrochlorothiazide 25 Mg Tablet) 25 mg PO DAILY [facility]; Protocol Last Admin: 12/02/21 14:20 Dose: 25 mg Documented by: Hydroxyzine HCl (Hydroxyzine Hcl 25 Mg Tablet) 25 mg PO BEDTIME PRN PRN Reason: Anxiety Last Admin: 12/01/21 22:17 Dose: 25 mg Documented by: Hydroxyzine HCl (Hydroxyzine Hcl 25 Mg Tablet) 25 mg PO BID PRN PRN Reason: Anxiety Last Admin: 12/02/21 02:04 Dose: 25 mg Documented by: Loperamide HCl (Loperamide Hcl 2 Mg Capsule) 4 mg PO Q4H PRN PRN Reason: Diarrhea Last Admin: 11/01/21 17:04 Dose: 4 mg Documented by: Magnesium Hydroxide (Milk Of Magnesia 30 Ml Oral.Susp) 30 ml PO DAILY PRN PRN Reason: Constipation Last Admin: 12/01/21 15:13 Dose: 30 ml Documented by: Mirtazapine (Mirtazapine 15 Mg Tablet) 15 mg PO BEDTIME [facility] Last Admin: 12/01/21 20:40 Dose: 15 mg Documented by: Olanzapine (Olanzapine 10 Mg Vial) 5 mg IM TID PRN PRN Reason: Psychosis Last Admin: 11/29/21 10:25 Dose: 5 mg Documented by: Paliperidone Palmitate (Paliperidone Palmitate 156 Mg/Ml Syringe) 156 mg IM ONCE ONE Stop: 12/03/21 11:56 Potassium Chloride (Potassium Chloride Er 10 Meq Capsule.Er) 40 meq PO BID [facility] Last Admin: 12/02/21 14:22 Dose: 40 meq Documented by: Trazodone HCl (Trazodone Hcl 50 Mg Tablet) 50 mg PO BEDTIME PRN PRN Reason: Insomnia Last Admin: 12/02/21 02:04 Dose: 50 mg Documented by: Trolamine Salicylate/Aloe Vera (Trolamine Salicylate 10%/Aloe Cream 35.4 Gm) 1 appl TOPICAL TID PRN PRN Reason: neck pain Last Admin: 11/19/21 21:37 Dose: 1 appl Documented by: Allergies Allergies Allergy/AdvReac Type Severity Reaction Status Date / Time No Known Allergies Allergy Unverified 05/01/20 19:42 [No Known Allergies*] Assessment & Plan Assessment & Plan (1) Schizophrenia, paranoid, chronic with acute exacerbation: Status: Acute Code(s): F20.0 - Paranoid schizophrenia (2) Hypertension: Status: Acute Code(s): I10 - Essential (primary) hypertension Plan Elderly female with a long history of schizoaffective disorder bipolar type who was admitted into the facility for exacerbation of psychosis and mood lability. The patient is on Clozaril and apparently she has not been fully compliant with treatment. 11/21 slipped, hit head on 11/20, head CT reviewed and unremarkable Plan 1. The patient at this moment is on 2 psychotics, Clozaril and Invega Sustenna. Her last dose of Invega was less week. Apparently her psychosis has Worsened since she is poorly compliant with Clozaril p.o.. We discussed on rounds at length and legally we can add PRNs IM as per healthcare proxy. 2. Zyprexa 5 mg IM p.r.n. the patient refuses Clozaril. 3. Keep Clozaril 100 mg p.o. in the morning and 150 in the afternoon. 4. Invega Sustenna for tomorrow I spent __20____ minutes with the patient and/or on the patient floor today, greater than?50% of which was spent counseling/coordinating care. Reason for contiued inpatient stay Substantial Risk for: inability to function, rapid decompensation and med/psych decompensation
[2021-12-02] MEDS: cloZAPine 100 MG TABLET 150 MG PO (16:57)
[2021-12-02 18:00] VITALS: BP 123/60; PULSE 97; RESP 18; TEMP 36.9; O2SAT 100
[2021-12-02] MEDS: cloZAPine 100 MG TABLET 200 MG PO (21:04)
[2021-12-03 06:00] VITALS: BP 120/59; PULSE 98; RESP 16; TEMP 36.1; O2SAT 99
[2021-12-03 06:01] VITALS: BMI 26.4
--- NOTE | 2021-12-03 08:27 | HO.PSYCHPN ---
Subjective Subjective Date of Service: 12/03/21 Reason For Visit: psychotic disorder Subjective Notes: Conditional Voluntary Interim History: The nursing staff reported the last night she had a very bad night, she was paranoid and scared of going back to her room. She refused all her medications but took only her Clozaril. On interview the patient reported that she did not sleep well and she did not feel well. I explained her that today she is going to get her Invega Sustenna shot. Mental Status Exam Mental Status Exam Patient Appearance: Appropriate Patient Orientation: Person and Situation Level of Consciousness: Awake Patient Behavior: Guarded and Suspicious Mood Description: Withdrawn Affect Description: Constricted Patient Cognition Impaired: Yes Ability to Follow Directions: Fair Speech Pattern: Impoverished and Monotone Hallucinations: Auditory Delusions: Paranoid Ideation Thought Process: Illogical and Slowed Thinking Thought Content: positive for [place] and positive for Poverty of Content Judgement: Fair Diagnostics Vital Signs (24Hr): Vital Signs - 24 hr 12/02/21 18:00 12/03/21 06:00 Temperature 98.4 F 96.9 F Pulse Rate 97 98 Respiratory Rate 18 16 Blood Pressure 123/60 120/59 L Pulse Oximetry 100 99 BMI result Body Mass Index 26.4 Labs Results: 10/26/21 07:50 11/01/21 07:05 Imaging Radiology Impressions: ITS Impressions Head CT 10/08/21 15:16 IMPRESSION: No acute intracranial pathology. Head CT 10/09/21 13:54 IMPRESSION: No acute intracranial pathology. Pelvic/Transvag US 10/13/21 09:24 IMPRESSION: Abnormally thickened endometrium for a postmenopausal patient measuring 0.9 cm. 3 x 2.7 x 3.7 cm mass in the posterior cervix. This may represent a fibroid. Slightly thickened trabeculated bladder wall. Head CT 10/20/21 08:18 IMPRESSION: No acute intracranial pathology. This critical result was discussed with Dr. Chu at 8:30 hours on 10/20/2021. It was ascertained that the content and urgency of the report was understood at the time of direct communication. Head CT 11/20/21 19:29 IMPRESSION: No acute intracranial pathology. Medications Medications Current Medications Acetaminophen (Acetaminophen 325 Mg Tablet) 650 mg PO Q6H PRN PRN Reason: Headache/Pain Mild Scale (1-3) Last Admin: 11/27/21 16:42 Dose: 650 mg Documented by: Al Hydroxide/Mg Hydroxide (Magnesium Hydrox/Alum Hydrox 30 Ml Oral.Susp) 30 ml PO Q6H PRN PRN Reason: Heartburn/Nausea Apixaban (Apixaban 5 Mg Tablet) 5 mg PO BID [facility] Last Admin: 12/02/21 23:19 Dose: Not Given Documented by: Benztropine Mesylate (Benztropine Mesylate 1 Mg Tablet) 1 mg PO BID [facility] Last Admin: 12/02/21 23:19 Dose: Not Given Documented by: Bisacodyl (Bisacodyl 10 Mg Supp.Rect) 10 mg [place] DAILY PRN PRN Reason: Constipation Last Admin: 11/19/21 21:06 Dose: 10 mg Documented by: Clozapine (Clozapine 100 Mg Tablet) 200 mg PO BEDTIME [facility] Last Admin: 12/02/21 21:04 Dose: 200 mg Documented by: Clozapine (Clozapine 100 Mg Tablet) 100 mg PO DAILY [facility] Last Admin: 12/02/21 14:22 Dose: 100 mg Documented by: Clozapine (Clozapine 100 Mg Tablet) 150 mg PO DAILY@1700 [facility] Last Admin: 12/02/21 16:57 Dose: 150 mg Documented by: Desmopressin Acetate (Desmopressin Acetate 0.2 Mg Tablet) 0.2 mg PO BID [facility] Last Admin: 12/02/21 23:20 Dose: Not Given Documented by: Hydrochlorothiazide (Hydrochlorothiazide 25 Mg Tablet) 25 mg PO DAILY [facility]; Protocol Last Admin: 12/02/21 14:20 Dose: 25 mg Documented by: Hydroxyzine HCl (Hydroxyzine Hcl 25 Mg Tablet) 25 mg PO BEDTIME PRN PRN Reason: Anxiety Last Admin: 12/01/21 22:17 Dose: 25 mg Documented by: Hydroxyzine HCl (Hydroxyzine Hcl 25 Mg Tablet) 25 mg PO BID PRN PRN Reason: Anxiety Last Admin: 12/02/21 16:59 Dose: 25 mg Documented by: Loperamide HCl (Loperamide Hcl 2 Mg Capsule) 4 mg PO Q4H PRN PRN Reason: Diarrhea Last Admin: 11/01/21 17:04 Dose: 4 mg Documented by: Magnesium Hydroxide (Milk Of Magnesia 30 Ml Oral.Susp) 30 ml PO DAILY PRN PRN Reason: Constipation Last Admin: 12/01/21 15:13 Dose: 30 ml Documented by: Mirtazapine (Mirtazapine 15 Mg Tablet) 15 mg PO BEDTIME [facility] Last Admin: 12/02/21 23:20 Dose: Not Given Documented by: Olanzapine (Olanzapine 10 Mg Vial) 5 mg IM TID PRN PRN Reason: Psychosis Last Admin: 11/29/21 10:25 Dose: 5 mg Documented by: Paliperidone Palmitate (Paliperidone Palmitate 156 Mg/Ml Syringe) 156 mg IM ONCE ONE Stop: 12/03/21 11:56 Potassium Chloride (Potassium Chloride Er 10 Meq Capsule.Er) 40 meq PO BID [facility] Last Admin: 12/02/21 23:20 Dose: Not Given Documented by: Trazodone HCl (Trazodone Hcl 50 Mg Tablet) 50 mg PO BEDTIME PRN PRN Reason: Insomnia Last Admin: 12/02/21 02:04 Dose: 50 mg Documented by: Trolamine Salicylate/Aloe Vera (Trolamine Salicylate 10%/Aloe Cream 35.4 Gm) 1 appl TOPICAL TID PRN PRN Reason: neck pain Last Admin: 11/19/21 21:37 Dose: 1 appl Documented by: Allergies Allergies Allergy/AdvReac Type Severity Reaction Status Date / Time No Known Allergies Allergy Unverified 05/01/20 19:42 [No Known Allergies*] Assessment & Plan Assessment & Plan (1) Schizophrenia, paranoid, chronic with acute exacerbation: Status: Acute Code(s): F20.0 - Paranoid schizophrenia (2) Hypertension: Status: Acute Code(s): I10 - Essential (primary) hypertension Plan Elderly female with a long history of schizoaffective disorder bipolar type who was admitted into the facility for exacerbation of psychosis and mood lability. The patient is on Clozaril and apparently she has not been fully compliant with treatment. 11/21 slipped, hit head on 11/20, head CT reviewed and unremarkable Plan 1. The patient at this moment is on 2 psychotics, Clozaril and Invega Sustenna. Her last dose of Invega was less week. Apparently her psychosis has Worsened since she is poorly compliant with Clozaril p.o.. We discussed on rounds at length and legally we can add PRNs IM as per healthcare proxy. 2. Zyprexa 5 mg IM p.r.n. the patient refuses Clozaril. 3. Keep Clozaril 100 mg p.o. in the morning and 150 in the afternoon. 4. Invega Sustenna for today. I spent ___20___ minutes with the patient and/or on the patient floor today, greater than?50% of which was spent counseling/coordinating care. Reason for contiued inpatient stay Substantial Risk for: inability to function, rapid decompensation and med/psych decompensation
[2021-12-03] MEDS: cloZAPine 100 MG TABLET PO (10:01)
[2021-12-03] MEDS: Paliperidone Palmitate 156 MG/ML SYRINGE IM (13:35)
[2021-12-03] MEDS: OLANZapine 10 MG VIAL 5 MG IM (17:33)
[2021-12-03 18:00] VITALS: BP 109/53; PULSE 102; RESP 16; TEMP 36.3; O2SAT 98
[2021-12-03] MEDS: Apixaban 5 MG TABLET PO (20:23)
[2021-12-03] MEDS: Mirtazapine 15 MG TABLET PO (20:23)
[2021-12-03] MEDS: Benztropine Mesylate 1 MG TABLET PO (20:23)
[2021-12-03] MEDS: Desmopressin Acetate 0.2 MG TABLET PO (20:23)
[2021-12-03] MEDS: cloZAPine 100 MG TABLET 200 MG PO (20:23)
[2021-12-04] MEDS: traZODone HCL 50 MG TABLET PO ×2 (00:04→20:07)
[2021-12-04 06:00] VITALS: BP 123/66; PULSE 90; TEMP 36.2; O2SAT 100
[2021-12-04] MEDS: Benztropine Mesylate 1 MG TABLET PO ×2 (08:01→20:09)
[2021-12-04] MEDS: Desmopressin Acetate 0.2 MG TABLET PO ×2 (08:01→20:07)
[2021-12-04] MEDS: hydroCHLOROthiazide 25 MG TABLET PO (08:01)
[2021-12-04] MEDS: Apixaban 5 MG TABLET PO ×2 (08:01→20:07)
[2021-12-04] MEDS: cloZAPine 100 MG TABLET PO (08:01)
--- NOTE | 2021-12-04 12:14 | P.PNPSI_ITS ---
Subjective Subjective Date of Service: 12/04/21 Reason For Visit: psychotic disorder Subjective Notes: Conditional Voluntary Interim History: The nursing staff reported that the last night the patient had a very bad night, she was scared to go to her room and she slept very poorly. Also the staff noticed that after that showed a few hours after Invega Sustenna, her auditory hallucinations lowered. On interview the patient reports that she feels tired since she did not sleep well last night. We discussed treatment options and she agreed to increase a little Clozaril. Also she agreed to start Ativan 2 mg p.o. q.h.s. for night. Mental Status Exam Mental Status Exam Patient Appearance: Appropriate Patient Orientation: Person and Situation Level of Consciousness: Awake Patient Behavior: Guarded, Cooperative and Suspicious Mood Description: Withdrawn Affect Description: Constricted Patient Cognition Impaired: Yes Ability to Follow Directions: Good Speech Pattern: Clear and Impoverished Hallucinations: Auditory Delusions: Paranoid Ideation Thought Process: Illogical and Linear Thought Content: positive for [place], positive for Poverty of Content and positive for Tangential Judgement: Fair Diagnostics Vital Signs (24Hr): Vital Signs - 24 hr 12/03/21 18:00 12/04/21 06:00 Temperature 97.4 F 97.2 F Pulse Rate 102 H 90 Respiratory Rate 16 Blood Pressure 109/53 L 123/66 Pulse Oximetry 98 100 BMI result Body Mass Index 26.4 Labs Results: 10/26/21 07:50 11/01/21 07:05 Imaging Radiology Impressions: ITS Impressions Head CT 10/08/21 15:16 IMPRESSION: No acute intracranial pathology. Head CT 10/09/21 13:54 IMPRESSION: No acute intracranial pathology. Pelvic/Transvag US 10/13/21 09:24 IMPRESSION: Abnormally thickened endometrium for a postmenopausal patient measuring 0.9 cm. 3 x 2.7 x 3.7 cm mass in the posterior cervix. This may represent a fibroid. Slightly thickened trabeculated bladder wall. Head CT 10/20/21 08:18 IMPRESSION: No acute intracranial pathology. This critical result was discussed with Dr. Chu at 8:30 hours on 10/20/2021. It was ascertained that the content and urgency of the report was understood at the time of direct communication. Head CT 11/20/21 19:29 IMPRESSION: No acute intracranial pathology. Medications Medications Current Medications Acetaminophen (Acetaminophen 325 Mg Tablet) 650 mg PO Q6H PRN PRN Reason: Headache/Pain Mild Scale (1-3) Last Admin: 11/27/21 16:42 Dose: 650 mg Documented by: Al Hydroxide/Mg Hydroxide (Magnesium Hydrox/Alum Hydrox 30 Ml Oral.Susp) 30 ml PO Q6H PRN PRN Reason: Heartburn/Nausea Apixaban (Apixaban 5 Mg Tablet) 5 mg PO BID [facility] Last Admin: 12/04/21 08:01 Dose: 5 mg Documented by: Benztropine Mesylate (Benztropine Mesylate 1 Mg Tablet) 1 mg PO BID [facility] Last Admin: 12/04/21 08:01 Dose: 1 mg Documented by: Bisacodyl (Bisacodyl 10 Mg Supp.Rect) 10 mg [place] DAILY PRN PRN Reason: Constipation Last Admin: 11/19/21 21:06 Dose: 10 mg Documented by: Clozapine (Clozapine 100 Mg Tablet) 200 mg PO BEDTIME [facility] Last Admin: 12/03/21 20:23 Dose: 200 mg Documented by: Clozapine (Clozapine 100 Mg Tablet) 100 mg PO DAILY [facility] Last Admin: 12/04/21 08:01 Dose: 100 mg Documented by: Clozapine (Clozapine 100 Mg Tablet) 150 mg PO DAILY@1700 [facility] Last Admin: 12/03/21 17:34 Dose: Not Given Documented by: Desmopressin Acetate (Desmopressin Acetate 0.2 Mg Tablet) 0.2 mg PO BID [facility] Last Admin: 12/04/21 08:01 Dose: 0.2 mg Documented by: Hydrochlorothiazide (Hydrochlorothiazide 25 Mg Tablet) 25 mg PO DAILY [facility]; Protocol Last Admin: 12/04/21 08:01 Dose: 25 mg Documented by: Hydroxyzine HCl (Hydroxyzine Hcl 25 Mg Tablet) 25 mg PO BEDTIME PRN PRN Reason: Anxiety Last Admin: 12/01/21 22:17 Dose: 25 mg Documented by: Hydroxyzine HCl (Hydroxyzine Hcl 25 Mg Tablet) 25 mg PO BID PRN PRN Reason: Anxiety Last Admin: 12/02/21 16:59 Dose: 25 mg Documented by: Loperamide HCl (Loperamide Hcl 2 Mg Capsule) 4 mg PO Q4H PRN PRN Reason: Diarrhea Last Admin: 11/01/21 17:04 Dose: 4 mg Documented by: Magnesium Hydroxide (Milk Of Magnesia 30 Ml Oral.Susp) 30 ml PO DAILY PRN PRN Reason: Constipation Last Admin: 12/01/21 15:13 Dose: 30 ml Documented by: Mirtazapine (Mirtazapine 15 Mg Tablet) 15 mg PO BEDTIME MITZY Last Admin: 12/03/21 20:23 Dose: 15 mg Documented by: Olanzapine (Olanzapine 10 Mg Vial) 5 mg IM TID PRN PRN Reason: Psychosis Last Admin: 12/03/21 17:33 Dose: 5 mg Documented by: Potassium Chloride (Potassium Chloride Er 10 Meq Capsule.Er) 40 meq PO BID MITZY Last Admin: 12/04/21 08:01 Dose: 40 meq Documented by: Trazodone HCl (Trazodone Hcl 50 Mg Tablet) 50 mg PO BEDTIME PRN PRN Reason: Insomnia Last Admin: 12/04/21 00:04 Dose: 50 mg Documented by: Trolamine Salicylate/Aloe Vera (Trolamine Salicylate 10%/Aloe Cream 35.4 Gm) 1 appl TOPICAL TID PRN PRN Reason: neck pain Last Admin: 11/19/21 21:37 Dose: 1 appl Documented by: Allergies Allergies Allergy/AdvReac Type Severity Reaction Status Date / Time No Known Allergies Allergy Unverified 05/01/20 19:42 [No Known Allergies*] Assessment & Plan Assessment & Plan (1) Schizophrenia, paranoid, chronic with acute exacerbation: Status: Acute Code(s): F20.0 - Paranoid schizophrenia (2) Hypertension: Status: Acute Code(s): I10 - Essential (primary) hypertension Plan Elderly female with a long history of schizoaffective disorder bipolar type who was admitted into the facility for exacerbation of psychosis and mood lability. The patient is on Clozaril and apparently she has not been fully compliant with treatment. 11/21 slipped, hit head on 11/20, head CT reviewed and unremarkable Plan 1. The patient at this moment is on 2 psychotics, Clozaril and Invega Sustenna. Her last dose of Invega was less week. Apparently her psychosis has Worsened since she is poorly compliant with Clozaril p.o.. We discussed on rounds at length and legally we can add PRNs IM as per healthcare proxy. 2. Zyprexa 5 mg IM p.r.n. the patient refuses Clozaril. 3. Keep Clozaril 100 mg p.o. in the morning and 150 in the afternoon And increase Clozaril up to 250 p.o. q.h.s. 4. Invega Sustenna 156 mg on December 03.. 5. Add Ativan 2 mg p.o. q.h.s. at night I spent ___20___ minutes with the patient and/or on the patient floor today, greater than?50% of which was spent counseling/coordinating care. Reason for contiued inpatient stay Substantial Risk for: inability to function, rapid decompensation and med/psych decompensation
[2021-12-04] MEDS: cloZAPine 100 MG TABLET 150 MG PO (17:38)
[2021-12-04 18:00] VITALS: BP 119/61; PULSE 102; RESP 16; TEMP 36.4; O2SAT 99
[2021-12-04] MEDS: LORazepam 1 MG TABLET 2 MG PO (20:07)
[2021-12-04] MEDS: cloZAPine 100 MG TABLET 250 MG PO (20:07)
[2021-12-04] MEDS: Mirtazapine 15 MG TABLET PO (20:07)
--- NOTE | 2021-12-04 21:40 | PC.NURSE ---
Pt with unwittnessed fall in her bathroom at 2129. Pt reports I tried to pick something up from the floor, and I fell over off the toilet . The pt is moving all extremities without pain, denies hitting her head. Nursing supervisor properties and covering MD notified. Pt with 1:1 at present time for safety. VS wnl.
[2021-12-04 21:45] VITALS: BP 115/60; PULSE 98; TEMP 36.7; O2SAT 98
[2021-12-05] MEDS: cloZAPine 100 MG TABLET PO ×2 (11:13→20:56)
[2021-12-05] MEDS: Desmopressin Acetate 0.2 MG TABLET PO ×2 (11:16→20:56)
[2021-12-05] MEDS: hydroCHLOROthiazide 25 MG TABLET PO (11:16)
[2021-12-05] MEDS: Benztropine Mesylate 1 MG TABLET PO ×2 (11:16→20:56)
[2021-12-05] MEDS: Apixaban 5 MG TABLET PO ×2 (11:16→20:56)
--- NOTE | 2021-12-05 13:32 | P.PNPSI_ITS ---
Subjective Subjective Date of Service: 12/05/21 Reason For Visit: psychotic disorder Subjective Notes: Conditional Voluntary Healthcare Proxy: Yes Interim History: The patient was somewhat sedated has been Invega sustained intermittently ref using clozapine continues with intrusive psychosis Medication Compliance: Intermittent Review of Systems Acute medical concerns: No Mental Status Exam Mental Status Exam Patient Appearance: Appropriate Patient Orientation: Person and Situation Level of Consciousness: Awake Patient Behavior: Guarded, Cooperative and Suspicious Mood Description: Withdrawn Affect Description: Constricted Patient Cognition Impaired: Yes Ability to Follow Directions: Good Speech Pattern: Clear and Impoverished Hallucinations: Auditory Delusions: Paranoid Ideation Thought Process: Illogical and Linear Thought Content: positive for [place], positive for Poverty of Content and positive for Tangential Judgement: Fair Diagnostics Vital Signs (24Hr): Vital Signs - 24 hr 12/04/21 18:00 12/04/21 21:45 Temperature 97.6 F 98.0 F Pulse Rate 102 H 98 Respiratory Rate 16 Blood Pressure 119/61 115/60 Pulse Oximetry 99 98 BMI result Body Mass Index 26.4 Labs Results: 10/26/21 07:50 11/01/21 07:05 Imaging Radiology Impressions: ITS Impressions Head CT 10/08/21 15:16 IMPRESSION: No acute intracranial pathology. Head CT 10/09/21 13:54 IMPRESSION: No acute intracranial pathology. Pelvic/Transvag US 10/13/21 09:24 IMPRESSION: Abnormally thickened endometrium for a postmenopausal patient measuring 0.9 cm. 3 x 2.7 x 3.7 cm mass in the posterior cervix. This may represent a fibroid. Slightly thickened trabeculated bladder wall. Head CT 10/20/21 08:18 IMPRESSION: No acute intracranial pathology. This critical result was discussed with Dr. Chu at 8:30 hours on 10/20/2021. It was ascertained that the content and urgency of the report was understood at the time of direct communication. Head CT 11/20/21 19:29 IMPRESSION: No acute intracranial pathology. Medications Medications Current Medications Acetaminophen (Acetaminophen 325 Mg Tablet) 650 mg PO Q6H PRN PRN Reason: Headache/Pain Mild Scale (1-3) Last Admin: 11/27/21 16:42 Dose: 650 mg Documented by: Al Hydroxide/Mg Hydroxide (Magnesium Hydrox/Alum Hydrox 30 Ml Oral.Susp) 30 ml PO Q6H PRN PRN Reason: Heartburn/Nausea Apixaban (Apixaban 5 Mg Tablet) 5 mg PO BID [facility] Last Admin: 12/05/21 11:16 Dose: 5 mg Documented by: Benztropine Mesylate (Benztropine Mesylate 1 Mg Tablet) 1 mg PO BID [facility] Last Admin: 12/05/21 11:16 Dose: 1 mg Documented by: Bisacodyl (Bisacodyl 10 Mg Supp.Rect) 10 mg [place] DAILY PRN PRN Reason: Constipation Last Admin: 11/19/21 21:06 Dose: 10 mg Documented by: Clozapine (Clozapine 100 Mg Tablet) 100 mg PO DAILY [facility] Last Admin: 12/05/21 11:13 Dose: 100 mg Documented by: Clozapine (Clozapine 100 Mg Tablet) 150 mg PO DAILY@1700 [facility] Last Admin: 12/04/21 17:38 Dose: 150 mg Documented by: Clozapine (Clozapine 100 Mg Tablet) 250 mg PO BEDTIME [facility] Last Admin: 12/04/21 20:07 Dose: 250 mg Documented by: Desmopressin Acetate (Desmopressin Acetate 0.2 Mg Tablet) 0.2 mg PO BID [facility] Last Admin: 12/05/21 11:16 Dose: 0.2 mg Documented by: Hydrochlorothiazide (Hydrochlorothiazide 25 Mg Tablet) 25 mg PO DAILY [facility]; Protocol Last Admin: 12/05/21 11:16 Dose: 25 mg Documented by: Hydroxyzine HCl (Hydroxyzine Hcl 25 Mg Tablet) 25 mg PO BEDTIME PRN PRN Reason: Anxiety Last Admin: 12/01/21 22:17 Dose: 25 mg Documented by: Hydroxyzine HCl (Hydroxyzine Hcl 25 Mg Tablet) 25 mg PO BID PRN PRN Reason: Anxiety Last Admin: 12/02/21 16:59 Dose: 25 mg Documented by: Loperamide HCl (Loperamide Hcl 2 Mg Capsule) 4 mg PO Q4H PRN PRN Reason: Diarrhea Last Admin: 11/01/21 17:04 Dose: 4 mg Documented by: Lorazepam (Lorazepam 1 Mg Tablet) 2 mg PO BEDTIME [facility] Last Admin: 12/04/21 20:07 Dose: 2 mg Documented by: Magnesium Hydroxide (Milk Of Magnesia 30 Ml Oral.Susp) 30 ml PO DAILY PRN PRN Reason: Constipation Last Admin: 12/01/21 15:13 Dose: 30 ml Documented by: Mirtazapine (Mirtazapine 15 Mg Tablet) 15 mg PO BEDTIME MITZY Last Admin: 12/04/21 20:07 Dose: 15 mg Documented by: Olanzapine (Olanzapine 10 Mg Vial) 5 mg IM TID PRN PRN Reason: Psychosis Last Admin: 12/03/21 17:33 Dose: 5 mg Documented by: Potassium Chloride (Potassium Chloride Er 10 Meq Capsule.Er) 40 meq PO BID [facility] Last Admin: 12/05/21 11:18 Dose: Not Given Documented by: Trazodone HCl (Trazodone Hcl 50 Mg Tablet) 50 mg PO BEDTIME PRN PRN Reason: Insomnia Last Admin: 12/04/21 20:07 Dose: 50 mg Documented by: Trolamine Salicylate/Aloe Vera (Trolamine Salicylate 10%/Aloe Cream 35.4 Gm) 1 appl TOPICAL TID PRN PRN Reason: neck pain Last Admin: 11/19/21 21:37 Dose: 1 appl Documented by: Allergies Allergies Allergy/AdvReac Type Severity Reaction Status Date / Time No Known Allergies Allergy Unverified 05/01/20 19:42 [No Known Allergies*] Assessment & Plan Assessment & Plan (1) Schizophrenia, paranoid, chronic with acute exacerbation: Status: Acute Code(s): F20.0 - Paranoid schizophrenia (2) Hypertension: Status: Acute Code(s): I10 - Essential (primary) hypertension Plan Elderly female with a long history of schizoaffective disorder bipolar type who was admitted into the facility for exacerbation of psychosis and mood lability. The patient is on Clozaril and apparently she has not been fully compliant with treatment. 11/21 slipped, hit head on 11/20, head CT reviewed and unremarkable Plan 1. The patient at this moment is on 2 psychotics, Clozaril and Invega Sustenna. Her last dose of Invega was less week. Apparently her psychosis has Worsened since she is poorly compliant with Clozaril p.o.. We discussed on rounds at length and legally we can add PRNs IM as per healthcare proxy. 2. Zyprexa 5 mg IM p.r.n. the patient refuses Clozaril. 3. Keep Clozaril 100 mg p.o. in the morning and 150 in the afternoon And increase Clozaril up to 250 p.o. q.h.s. 4. Invega Sustenna 156 mg on December 03.. 5. Add Ativan 2 mg p.o. q.h.s. at night Fourth 12/05/2021 Patient remains psychotic treatment resistant psychosis and intermittent refusal. Perhaps some transient improvement Invega. Consider ECT I spent minutes with the patient and/or on the patient floor today, greater than?50% of which was spent counseling/coordinating care. Reason for contiued inpatient stay Substantial Risk for: harm to self, inability to function and rapid decompensation
[2021-12-05] MEDS: OLANZapine 10 MG VIAL 5 MG IM (17:16)
[2021-12-05 18:00] VITALS: BP 103/55; RESP 18; TEMP 36.4
[2021-12-05] MEDS: cloZAPine 100 MG TABLET 250 MG PO (20:56)
[2021-12-05] MEDS: Mirtazapine 15 MG TABLET PO (20:56)
[2021-12-05] MEDS: LORazepam 1 MG TABLET 2 MG PO (20:56)
[2021-12-06] MEDS: Apixaban 5 MG TABLET PO (11:56)
[2021-12-06] MEDS: hydroCHLOROthiazide 25 MG TABLET PO (11:57)
[2021-12-06] MEDS: Benztropine Mesylate 1 MG TABLET PO ×2 (11:57→20:56)
[2021-12-06] MEDS: cloZAPine 100 MG TABLET PO (11:57)
[2021-12-06] MEDS: Desmopressin Acetate 0.2 MG TABLET PO (11:57)
[2021-12-06] MEDS: cloZAPine 100 MG TABLET 150 MG PO (16:45)
[2021-12-06] MEDS: bisacodyL 10 MG SUPP.RECT PR (17:29)
--- NOTE | 2021-12-06 17:49 | PC.NURSE ---
Patient complains of constipation. Dulcolax suppository given. results pending.
[2021-12-06 18:00] VITALS: RESP 16
[2021-12-06] MEDS: LORazepam 1 MG TABLET 2 MG PO (20:53)
[2021-12-06] MEDS: cloZAPine 100 MG TABLET 250 MG PO (20:55)
[2021-12-06] MEDS: Mirtazapine 15 MG TABLET PO (20:55)
--- NOTE | 2021-12-06 21:54 | HO.PSYCHPN ---
Subjective Subjective Date of Service: 12/06/21 Reason For Visit: psychotic disorder Interim History: The patient is irritable dysphoric easily agitated. Constantly feels the devil in her mind is quite distressing for her. Patient intermittently refusing clozapine has been on Invega sustained a continues with psychotic symptoms Mental Status Exam Mental Status Exam Patient Appearance: Appropriate Patient Orientation: Person and Situation Level of Consciousness: Awake Patient Behavior: Guarded, Cooperative and Suspicious Mood Description: Withdrawn, Labile, Angry and Sad Affect Description: Constricted, Depressed and Apprehensive Patient Cognition Impaired: Yes Ability to Follow Directions: Good Speech Pattern: Clear and Impoverished Hallucinations: Auditory Delusions: Paranoid Ideation Thought Process: Illogical and Linear Thought Content: positive for [place], positive for Poverty of Content and positive for Tangential Judgement: Fair Diagnostics Vital Signs (24Hr): Vital Signs - 24 hr 12/06/21 18:00 Respiratory Rate 16 BMI result Body Mass Index 26.4 Labs Results: 10/26/21 07:50 11/01/21 07:05 Imaging Radiology Impressions: ITS Impressions Head CT 10/08/21 15:16 IMPRESSION: No acute intracranial pathology. Head CT 10/09/21 13:54 IMPRESSION: No acute intracranial pathology. Pelvic/Transvag US 10/13/21 09:24 IMPRESSION: Abnormally thickened endometrium for a postmenopausal patient measuring 0.9 cm. 3 x 2.7 x 3.7 cm mass in the posterior cervix. This may represent a fibroid. Slightly thickened trabeculated bladder wall. Head CT 10/20/21 08:18 IMPRESSION: No acute intracranial pathology. This critical result was discussed with Dr. Chu at 8:30 hours on 10/20/2021. It was ascertained that the content and urgency of the report was understood at the time of direct communication. Head CT 11/20/21 19:29 IMPRESSION: No acute intracranial pathology. Medications Medications Current Medications Acetaminophen (Acetaminophen 325 Mg Tablet) 650 mg PO Q6H PRN PRN Reason: Headache/Pain Mild Scale (1-3) Last Admin: 11/27/21 16:42 Dose: 650 mg Documented by: Al Hydroxide/Mg Hydroxide (Magnesium Hydrox/Alum Hydrox 30 Ml Oral.Susp) 30 ml PO Q6H PRN PRN Reason: Heartburn/Nausea Apixaban (Apixaban 5 Mg Tablet) 5 mg PO BID [facility] Last Admin: 12/06/21 21:00 Dose: Not Given Documented by: Benztropine Mesylate (Benztropine Mesylate 1 Mg Tablet) 1 mg PO BID [facility] Last Admin: 12/06/21 20:56 Dose: 1 mg Documented by: Bisacodyl (Bisacodyl 10 Mg Supp.Rect) 10 mg [place] DAILY PRN PRN Reason: Constipation Last Admin: 12/06/21 17:29 Dose: 10 mg Documented by: Clozapine (Clozapine 100 Mg Tablet) 100 mg PO DAILY [facility] Last Admin: 12/06/21 11:57 Dose: 100 mg Documented by: Clozapine (Clozapine 100 Mg Tablet) 150 mg PO DAILY@1700 [facility] Last Admin: 12/06/21 16:45 Dose: 150 mg Documented by: Clozapine (Clozapine 100 Mg Tablet) 250 mg PO BEDTIME [facility] Last Admin: 12/06/21 20:55 Dose: 250 mg Documented by: Desmopressin Acetate (Desmopressin Acetate 0.2 Mg Tablet) 0.2 mg PO BID [facility] Last Admin: 12/06/21 21:02 Dose: Not Given Documented by: Hydrochlorothiazide (Hydrochlorothiazide 25 Mg Tablet) 25 mg PO DAILY [facility]; Protocol Last Admin: 12/06/21 11:57 Dose: 25 mg Documented by: Hydroxyzine HCl (Hydroxyzine Hcl 25 Mg Tablet) 25 mg PO BEDTIME PRN PRN Reason: Anxiety Last Admin: 12/01/21 22:17 Dose: 25 mg Documented by: Hydroxyzine HCl (Hydroxyzine Hcl 25 Mg Tablet) 25 mg PO BID PRN PRN Reason: Anxiety Last Admin: 12/02/21 16:59 Dose: 25 mg Documented by: Loperamide HCl (Loperamide Hcl 2 Mg Capsule) 4 mg PO Q4H PRN PRN Reason: Diarrhea Last Admin: 11/01/21 17:04 Dose: 4 mg Documented by: Lorazepam (Lorazepam 1 Mg Tablet) 2 mg PO BEDTIME [facility] Last Admin: 12/06/21 20:53 Dose: 2 mg Documented by: Magnesium Hydroxide (Milk Of Magnesia 30 Ml Oral.Susp) 30 ml PO DAILY PRN PRN Reason: Constipation Last Admin: 12/01/21 15:13 Dose: 30 ml Documented by: Mirtazapine (Mirtazapine 15 Mg Tablet) 15 mg PO BEDTIME [facility] Last Admin: 12/06/21 20:55 Dose: 15 mg Documented by: Olanzapine (Olanzapine 10 Mg Vial) 5 mg IM TID PRN PRN Reason: Psychosis Last Admin: 12/05/21 17:16 Dose: 5 mg Documented by: Potassium Chloride (Potassium Chloride Er 10 Meq Capsule.Er) 40 meq PO BID MITZY Last Admin: 12/06/21 11:57 Dose: 40 meq Documented by: Trazodone HCl (Trazodone Hcl 50 Mg Tablet) 50 mg PO BEDTIME PRN PRN Reason: Insomnia Last Admin: 12/04/21 20:07 Dose: 50 mg Documented by: Trolamine Salicylate/Aloe Vera (Trolamine Salicylate 10%/Aloe Cream 35.4 Gm) 1 appl TOPICAL TID PRN PRN Reason: neck pain Last Admin: 11/19/21 21:37 Dose: 1 appl Documented by: Allergies Allergies Allergy/AdvReac Type Severity Reaction Status Date / Time No Known Allergies Allergy Unverified 05/01/20 19:42 [No Known Allergies*] Assessment & Plan Assessment & Plan (1) Schizophrenia, paranoid, chronic with acute exacerbation: Status: Acute Code(s): F20.0 - Paranoid schizophrenia (2) Hypertension: Status: Acute Code(s): I10 - Essential (primary) hypertension Plan Elderly female with a long history of schizoaffective disorder bipolar type who was admitted into the facility for exacerbation of psychosis and mood lability. The patient is on Clozaril and apparently she has not been fully compliant with treatment. 11/21 slipped, hit head on 11/20, head CT reviewed and unremarkable Plan 1. The patient at this moment is on 2 psychotics, Clozaril and Invega Sustenna. Her last dose of Invega was less week. Apparently her psychosis has Worsened since she is poorly compliant with Clozaril p.o.. We discussed on rounds at length and legally we can add PRNs IM as per healthcare proxy. 2. Zyprexa 5 mg IM p.r.n. the patient refuses Clozaril. 3. Keep Clozaril 100 mg p.o. in the morning and 150 in the afternoon And increase Clozaril up to 250 p.o. q.h.s. 4. Invega Sustenna 156 mg on December 03.. 5. Add Ativan 2 mg p.o. q.h.s. at night Fourth 12/05/2021 Patient remains psychotic treatment resistant psychosis and intermittent refusal. Perhaps some transient improvement Invega. Consider ECT 12/06/2021 Patient seen reviewed with staff. Patient irritable dysphoric anxious angry and labile. Does not seem to be able to consistently take clozapine still with intrusive psychotic symptoms hallucinations of the devil with constant threats and hallucinations that make her quite fearful and angry. Cannot explain why she intermittently refuses clozapine would consider ECT has both mood disorder symptoms and psychosis I spent minutes with the patient and/or on the patient floor today, greater than?50% of which was spent counseling/coordinating care. Reason for contiued inpatient stay Substantial Risk for: harm to self and rapid decompensation
[2021-12-07 06:00] VITALS: BP 110/66; PULSE 86; RESP 16; TEMP 36.7; O2SAT 98
[2021-12-07] MEDS: OLANZapine 10 MG VIAL 5 MG IM (10:09)
--- NOTE | 2021-12-07 16:05 | HO.PSYCHPN ---
Subjective Subjective Date of Service: 12/07/21 Reason For Visit: psychotic disorder Subjective Notes: Conditional Voluntary Interim History: The nursing staff reported the patient was noncompliant over Clozaril over the weekend and she needed IM medication. On interview the patient reports that she is doing fine but she has been responding to internal stimuli. We discussed risks, benefits, side-effects and alternatives and even though that she is on a therapeutic dose of Clozaril on the Invega Sustenna she still have auditory hallucinations.so we will add another Haldol. Mental Status Exam Mental Status Exam Patient Appearance: Well Grooomed Patient Orientation: Person and Situation Level of Consciousness: Awake and Restless Patient Behavior: Guarded Mood Description: Withdrawn Affect Description: Constricted Patient Cognition Impaired: Yes Ability to Follow Directions: Fair Speech Pattern: Clear Hallucinations: Auditory Delusions: Paranoid Ideation and Ideas of Reference Thought Process: Illogical Thought Content: positive for [place] and positive for Loose Associations Judgement: Fair Diagnostics Vital Signs (24Hr): Vital Signs - 24 hr 12/06/21 18:00 12/07/21 06:00 Temperature 98.0 F Pulse Rate 86 Respiratory Rate 16 16 Blood Pressure 110/66 Pulse Oximetry 98 BMI result Body Mass Index 26.4 Labs Results: 10/26/21 07:50 11/01/21 07:05 Labs: Laboratory Results - last 48 hr 11/20/21 15:15 Ref Lab Test Result SEE COMMENT Imaging Radiology Impressions: ITS Impressions Head CT 10/08/21 15:16 IMPRESSION: No acute intracranial pathology. Head CT 10/09/21 13:54 IMPRESSION: No acute intracranial pathology. Pelvic/Transvag US 10/13/21 09:24 IMPRESSION: Abnormally thickened endometrium for a postmenopausal patient measuring 0.9 cm. 3 x 2.7 x 3.7 cm mass in the posterior cervix. This may represent a fibroid. Slightly thickened trabeculated bladder wall. Head CT 10/20/21 08:18 IMPRESSION: No acute intracranial pathology. This critical result was discussed with Dr. Chu at 8:30 hours on 10/20/2021. It was ascertained that the content and urgency of the report was understood at the time of direct communication. Head CT 11/20/21 19:29 IMPRESSION: No acute intracranial pathology. Medications Medications Current Medications Acetaminophen (Acetaminophen 325 Mg Tablet) 650 mg PO Q6H PRN PRN Reason: Headache/Pain Mild Scale (1-3) Last Admin: 11/27/21 16:42 Dose: 650 mg Documented by: Al Hydroxide/Mg Hydroxide (Magnesium Hydrox/Alum Hydrox 30 Ml Oral.Susp) 30 ml PO Q6H PRN PRN Reason: Heartburn/Nausea Apixaban (Apixaban 5 Mg Tablet) 5 mg PO BID [facility] Last Admin: 12/07/21 10:13 Dose: Not Given Documented by: Benztropine Mesylate (Benztropine Mesylate 1 Mg Tablet) 1 mg PO BID [facility] Last Admin: 12/07/21 10:13 Dose: Not Given Documented by: Bisacodyl (Bisacodyl 10 Mg Supp.Rect) 10 mg [place] DAILY PRN PRN Reason: Constipation Last Admin: 12/06/21 17:29 Dose: 10 mg Documented by: Clozapine (Clozapine 100 Mg Tablet) 150 mg PO DAILY@1700 [facility] Last Admin: 12/06/21 16:45 Dose: 150 mg Documented by: Clozapine (Clozapine 100 Mg Tablet) 250 mg PO BEDTIME [facility] Last Admin: 12/06/21 20:55 Dose: 250 mg Documented by: Clozapine (Clozapine 100 Mg Tablet) 100 mg PO DAILY [facility] Last Admin: 12/07/21 10:25 Dose: Not Given Documented by: Desmopressin Acetate (Desmopressin Acetate 0.2 Mg Tablet) 0.2 mg PO BID [facility] Last Admin: 12/07/21 10:13 Dose: Not Given Documented by: Docusate Sodium (Docusate Sodium 100 Mg Capsule) 100 mg PO BEDTIME [facility] Haloperidol (Haloperidol 1 Mg Tablet) 2 mg PO TID [facility] Hydrochlorothiazide (Hydrochlorothiazide 25 Mg Tablet) 25 mg PO DAILY [facility]; Protocol Last Admin: 12/07/21 10:13 Dose: Not Given Documented by: Hydroxyzine HCl (Hydroxyzine Hcl 25 Mg Tablet) 25 mg PO BEDTIME PRN PRN Reason: Anxiety Last Admin: 12/01/21 22:17 Dose: 25 mg Documented by: Hydroxyzine HCl (Hydroxyzine Hcl 25 Mg Tablet) 25 mg PO BID PRN PRN Reason: Anxiety Last Admin: 12/02/21 16:59 Dose: 25 mg Documented by: Loperamide HCl (Loperamide Hcl 2 Mg Capsule) 4 mg PO Q4H PRN PRN Reason: Diarrhea Last Admin: 11/01/21 17:04 Dose: 4 mg Documented by: Lorazepam (Lorazepam 1 Mg Tablet) 2 mg PO BEDTIME [facility] Last Admin: 12/06/21 20:53 Dose: 2 mg Documented by: Magnesium Hydroxide (Milk Of Magnesia 30 Ml Oral.Susp) 30 ml PO DAILY PRN PRN Reason: Constipation Last Admin: 12/01/21 15:13 Dose: 30 ml Documented by: Mirtazapine (Mirtazapine 15 Mg Tablet) 15 mg PO BEDTIME [facility] Last Admin: 12/06/21 20:55 Dose: 15 mg Documented by: Olanzapine (Olanzapine 10 Mg Vial) 5 mg IM TID PRN PRN Reason: Psychosis Last Admin: 12/07/21 10:09 Dose: 5 mg Documented by: Potassium Chloride (Potassium Chloride Er 10 Meq Capsule.Er) 40 meq PO BID [facility] Last Admin: 12/07/21 10:13 Dose: Not Given Documented by: Senna (Sennosides 8.6 Mg Tablet) 8.6 mg PO BEDTIME [facility] Trazodone HCl (Trazodone Hcl 50 Mg Tablet) 50 mg PO BEDTIME PRN PRN Reason: Insomnia Last Admin: 12/04/21 20:07 Dose: 50 mg Documented by: Trolamine Salicylate/Aloe Vera (Trolamine Salicylate 10%/Aloe Cream 35.4 Gm) 1 appl TOPICAL TID PRN PRN Reason: neck pain Last Admin: 11/19/21 21:37 Dose: 1 appl Documented by: Allergies Allergies Allergy/AdvReac Type Severity Reaction Status Date / Time No Known Allergies Allergy Unverified 05/01/20 19:42 [No Known Allergies*] Assessment & Plan Assessment & Plan (1) Schizophrenia, paranoid, chronic with acute exacerbation: Status: Acute Code(s): F20.0 - Paranoid schizophrenia (2) Hypertension: Status: Acute Code(s): I10 - Essential (primary) hypertension Plan Elderly female with a long history of schizoaffective disorder bipolar type who was admitted into the facility for exacerbation of psychosis and mood lability. The patient is on Clozaril and apparently she has not been fully compliant with treatment. 11/21 slipped, hit head on 11/20, head CT reviewed and unremarkable Plan 1. The patient at this moment is on 2 psychotics, Clozaril and Invega Sustenna. Her last dose of Invega was less week. Apparently her psychosis has Worsened since she is poorly compliant with Clozaril p.o.. We discussed on rounds at length and legally we can add PRNs IM as per healthcare proxy. 2. Zyprexa 5 mg IM p.r.n. the patient refuses Clozaril. 3. Keep Clozaril 100 mg p.o. in the morning and 150 in the afternoon And increase Clozaril up to 250 p.o. q.h.s. 4. Invega Sustenna 156 mg on December 03.. 5. Add Ativan 2 mg p.o. q.h.s. at night 6. Add Haldol 2 mg po tid I spent __20____ minutes with the patient and/or on the patient floor today, greater than?50% of which was spent counseling/coordinating care. Reason for contiued inpatient stay Substantial Risk for: inability to function, rapid decompensation and med/psych decompensation
[2021-12-07] MEDS: HaloperidoL 1 MG TABLET 2 MG PO (17:07)
[2021-12-07] MEDS: cloZAPine 100 MG TABLET 150 MG PO (17:08)
[2021-12-07 18:00] VITALS: BP 114/54; PULSE 109; RESP 16; TEMP 36.5; O2SAT 95
[2021-12-07] MEDS: cloZAPine 100 MG TABLET 250 MG PO (20:56)
[2021-12-08 08:00] VITALS: BP 119/57; PULSE 91; RESP 18; TEMP 35.8; O2SAT 96
[2021-12-08] MEDS: Apixaban 5 MG TABLET PO ×2 (08:20→20:24)
[2021-12-08] MEDS: cloZAPine 100 MG TABLET PO (08:20)
[2021-12-08] MEDS: HaloperidoL 1 MG TABLET 2 MG PO ×3 (08:20→20:26)
[2021-12-08] MEDS: hydroCHLOROthiazide 25 MG TABLET PO (08:21)
[2021-12-08] MEDS: Benztropine Mesylate 1 MG TABLET PO ×2 (08:21→20:24)
[2021-12-08] MEDS: Desmopressin Acetate 0.2 MG TABLET PO ×2 (08:22→20:26)
[2021-12-08 08:54] LABS: Neut%MD 66.5 %; Neutrophils Absolute Auto 4.4 x10*3/uL (2.0-8.3); WBCANC 6.6 X10*3/uL
--- NOTE | 2021-12-08 15:23 | P.PNPSI_ITS ---
Subjective Subjective Date of Service: 12/08/21 Reason For Visit: psychotic disorder Subjective Notes: Conditional Voluntary Interim History: The nursing staff reported the patient had about night she was responding to tele stimulant and she was yelling at the voices. She was scared to go to her room and use the bathroom in her room. On interview the patient reports auditory hallucinations. No side effects with the addition of Haldol Mental Status Exam Mental Status Exam Patient Appearance: Well Grooomed Patient Orientation: Person and Situation Level of Consciousness: Awake Patient Behavior: Cooperative Mood Description: Withdrawn Affect Description: Constricted Patient Cognition Impaired: Yes Ability to Follow Directions: Good Speech Pattern: Clear Hallucinations: Auditory Delusions: Paranoid Ideation Perceptual Disturbances: Hallucinations Thought Process: Illogical, Distracted and Evasive Thought Content: positive for [place] and positive for Poverty of Content Judgement: Fair Diagnostics Vital Signs (24Hr): Vital Signs - 24 hr 12/07/21 18:00 12/08/21 08:00 Temperature 97.7 F 96.5 F L Pulse Rate 109 H 91 Respiratory Rate 16 18 Blood Pressure 114/54 L 119/57 L Pulse Oximetry 95 96 BMI result Body Mass Index 26.4 Labs Results: 10/26/21 07:50 11/01/21 07:05 Labs: Laboratory Results - last 48 hr 11/20/21 12/08/21 15:15 08:37 Absolute Neuts (auto) 4.4 Ref Lab Test Result SEE COMMENT Imaging Radiology Impressions: ITS Impressions Head CT 10/08/21 15:16 IMPRESSION: No acute intracranial pathology. Head CT 10/09/21 13:54 IMPRESSION: No acute intracranial pathology. Pelvic/Transvag US 10/13/21 09:24 IMPRESSION: Abnormally thickened endometrium for a postmenopausal patient measuring 0.9 cm. 3 x 2.7 x 3.7 cm mass in the posterior cervix. This may represent a fibroid. Slightly thickened trabeculated bladder wall. Head CT 10/20/21 08:18 IMPRESSION: No acute intracranial pathology. This critical result was discussed with Dr. Chu at 8:30 hours on 10/20/2021. It was ascertained that the content and urgency of the report was understood at the time of direct communication. Head CT 11/20/21 19:29 IMPRESSION: No acute intracranial pathology. Medications Medications Current Medications Acetaminophen (Acetaminophen 325 Mg Tablet) 650 mg PO Q6H PRN PRN Reason: Headache/Pain Mild Scale (1-3) Last Admin: 11/27/21 16:42 Dose: 650 mg Documented by: Al Hydroxide/Mg Hydroxide (Magnesium Hydrox/Alum Hydrox 30 Ml Oral.Susp) 30 ml PO Q6H PRN PRN Reason: Heartburn/Nausea Apixaban (Apixaban 5 Mg Tablet) 5 mg PO BID [facility] Last Admin: 12/08/21 08:20 Dose: 5 mg Documented by: Benztropine Mesylate (Benztropine Mesylate 1 Mg Tablet) 1 mg PO BID [facility] Last Admin: 12/08/21 08:21 Dose: 1 mg Documented by: Bisacodyl (Bisacodyl 10 Mg Supp.Rect) 10 mg [place] DAILY PRN PRN Reason: Constipation Last Admin: 12/06/21 17:29 Dose: 10 mg Documented by: Clozapine (Clozapine 100 Mg Tablet) 150 mg PO DAILY@1700 [facility] Last Admin: 12/07/21 17:08 Dose: 150 mg Documented by: Clozapine (Clozapine 100 Mg Tablet) 250 mg PO BEDTIME [facility] Last Admin: 12/07/21 20:56 Dose: 250 mg Documented by: Clozapine (Clozapine 100 Mg Tablet) 100 mg PO DAILY [facility] Last Admin: 12/08/21 08:20 Dose: 100 mg Documented by: Desmopressin Acetate (Desmopressin Acetate 0.2 Mg Tablet) 0.2 mg PO BID [facility] Last Admin: 12/08/21 08:22 Dose: 0.2 mg Documented by: Docusate Sodium (Docusate Sodium 100 Mg Capsule) 100 mg PO BEDTIME [facility] Last Admin: 12/08/21 02:35 Dose: Not Given Documented by: Haloperidol (Haloperidol 1 Mg Tablet) 2 mg PO TID [facility] Last Admin: 12/08/21 14:53 Dose: 2 mg Documented by: Hydrochlorothiazide (Hydrochlorothiazide 25 Mg Tablet) 25 mg PO DAILY [facility]; Prot ocol Last Admin: 12/08/21 08:21 Dose: 25 mg Documented by: Hydroxyzine HCl (Hydroxyzine Hcl 25 Mg Tablet) 25 mg PO BEDTIME PRN PRN Reason: Anxiety Last Admin: 12/01/21 22:17 Dose: 25 mg Documented by: Hydroxyzine HCl (Hydroxyzine Hcl 25 Mg Tablet) 25 mg PO BID PRN PRN Reason: Anxiety Last Admin: 12/02/21 16:59 Dose: 25 mg Documented by: Loperamide HCl (Loperamide Hcl 2 Mg Capsule) 4 mg PO Q4H PRN PRN Reason: Diarrhea Last Admin: 11/01/21 17:04 Dose: 4 mg Documented by: Lorazepam (Lorazepam 1 Mg Tablet) 2 mg PO BEDTIME [facility] Last Admin: 12/08/21 02:36 Dose: Not Given Documented by: Magnesium Hydroxide (Milk Of Magnesia 30 Ml Oral.Susp) 30 ml PO DAILY PRN PRN Reason: Constipation Last Admin: 12/01/21 15:13 Dose: 30 ml Documented by: Mirtazapine (Mirtazapine 15 Mg Tablet) 15 mg PO BEDTIME [facility] Last Admin: 12/08/21 02:36 Dose: Not Given Documented by: Olanzapine (Olanzapine 10 Mg Vial) 5 mg IM TID PRN PRN Reason: Psychosis Last Admin: 12/07/21 10:09 Dose: 5 mg Documented by: Potassium Chloride (Potassium Chloride Er 10 Meq Capsule.Er) 40 meq PO BID [facility] Last Admin: 12/08/21 08:20 Dose: 40 meq Documented by: Senna (Sennosides 8.6 Mg Tablet) 8.6 mg PO BEDTIME [facility] Last Admin: 12/08/21 02:36 Dose: Not Given Documented by: Trazodone HCl (Trazodone Hcl 50 Mg Tablet) 50 mg PO BEDTIME PRN PRN Reason: Insomnia Last Admin: 12/04/21 20:07 Dose: 50 mg Documented by: Trolamine Salicylate/Aloe Vera (Trolamine Salicylate 10%/Aloe Cream 35.4 Gm) 1 appl TOPICAL TID PRN PRN Reason: neck pain Last Admin: 12/08/21 14:54 Dose: 1 appl Documented by: Allergies Allergies Allergy/AdvReac Type Severity Reaction Status Date / Time No Known Allergies Allergy Unverified 05/01/20 19:42 [No Known Allergies*] Assessment & Plan Assessment & Plan (1) Schizophrenia, paranoid, chronic with acute exacerbation: Status: Acute Code(s): F20.0 - Paranoid schizophrenia (2) Hypertension: Status: Acute Code(s): I10 - Essential (primary) hypertension Plan Elderly female with a long history of schizoaffective disorder bipolar type who was admitted into the facility for exacerbation of psychosis and mood lability. The patient is on Clozaril and apparently she has not been fully compliant with treatment. 11/21 slipped, hit head on 11/20, head CT reviewed and unremarkable Plan 1. The patient at this moment is on 2 psychotics, Clozaril and Invega Sustenna. Her last dose of Invega was less week. Apparently her psychosis has Worsened since she is poorly compliant with Clozaril p.o.. We discussed on rounds at length and legally we can add PRNs IM as per healthcare proxy. 2. Zyprexa 5 mg IM p.r.n. the patient refuses Clozaril. 3. Keep Clozaril 100 mg p.o. in the morning and 150 in the afternoon. at Haldol 2 mg PT I spent __20____ minutes with the patient and/or on the patient floor today, greater than?50% of which was spent counseling/coordinating care. Reason for contiued inpatient stay Substantial Risk for: inability to function, rapid decompensation and med/psych decompensation
[2021-12-08] MEDS: cloZAPine 100 MG TABLET 150 MG PO (17:06)
[2021-12-08] MEDS: cloZAPine 100 MG TABLET 250 MG PO (20:25)
[2021-12-08] MEDS: Docusate Sodium 100 MG CAPSULE PO (20:26)
[2021-12-08] MEDS: Mirtazapine 15 MG TABLET PO (20:26)
[2021-12-08] MEDS: LORazepam 1 MG TABLET 2 MG PO (20:26)
[2021-12-08] MEDS: Sennosides 8.6 MG TABLET PO (20:27)
[2021-12-08] MEDS: Acetaminophen 325 MG TABLET 650 MG PO (21:52)
[2021-12-08 22:41] VITALS: BP 116/52; PULSE 99; RESP 17; TEMP 36.3; O2SAT 99
[2021-12-09 08:00] VITALS: BP 93/55; PULSE 89; RESP 16; TEMP 36.4; O2SAT 97
[2021-12-09] MEDS: OLANZapine 10 MG VIAL 5 MG IM (12:03)
[2021-12-09] MEDS: LORazepam 2 MG/ML VIAL IM (12:05)
--- NOTE | 2021-12-09 15:27 | PC.NURSE ---
Pt screaming out loudly and frequently this am after waking. Responding to internal stimuli, stating voices were telling her not to eat or take meds. Refused all am meds except for potassium. Screams out, No, no, leave me alone. Requested IM meds while meeting with Dr Mcdonnell. IM Olanzapine 5mg given at 1203 and Ativan 2mg IM given at 1205. Accepted IM meds well and good effect noted initially. Able to rest initially. Screaming out periodically after rest period, loudly. Screaming, No way, no way, leave me alone. Difficult to redirect, quiets with distraction.
--- NOTE | 2021-12-09 15:44 | P.PNPSI_ITS ---
Subjective Subjective Date of Service: 12/09/21 Reason For Visit: psychotic disorder Subjective Notes: Conditional Voluntary Interim History: The nursing staff reported the last night she slept a little better and she went to her bed to sleep. The patient paranoid against her room and her bathroom and she had been sleeping in the hallway in the last days. Today in the morning she was screaming regarding the voices insulting her. I approached and assessed her and I offered p.o. medications but she wanted IM because she wanted a faster resolution of her auditory hallucinations. Mental Status Exam Mental Status Exam Patient Appearance: Well Grooomed Patient Orientation: Person and Situation Level of Consciousness: Awake Patient Behavior: Cooperative Mood Description: Withdrawn Affect Description: Constricted Patient Cognition Impaired: Yes Ability to Follow Directions: Good Speech Pattern: Impoverished Hallucinations: Auditory Delusions: Paranoid Ideation Perceptual Disturbances: Hallucinations Thought Process: Illogical and Distracted Thought Content: positive for [place], positive for Poverty of Content, positive for Loose Associations and positive for Tangential Judgement: Fair Diagnostics Vital Signs (24Hr): Vital Signs - 24 hr 12/08/21 22:41 12/09/21 08:00 Temperature 97.4 F 97.5 F Pulse Rate 99 89 Respiratory Rate 17 16 Blood Pressure 116/52 L 93/55 L Pulse Oximetry 99 97 BMI result Body Mass Index 26.4 Labs Results: 10/26/21 07:50 11/01/21 07:05 Labs: Laboratory Results - last 48 hr 12/08/21 08:37 Absolute Neuts (auto) 4.4 Imaging Radiology Impressions: ITS Impressions Head CT 10/08/21 15:16 IMPRESSION: No acute intracranial pathology. Head CT 10/09/21 13:54 IMPRESSION: No acute intracranial pathology. Pelvic/Transvag US 10/13/21 09:24 IMPRESSION: Abnormally thickened endometrium for a postmenopausal patient measuring 0.9 cm. 3 x 2.7 x 3.7 cm mass in the posterior cervix. This may represent a fibroid. Slightly thickened trabeculated bladder wall. Head CT 10/20/21 08:18 IMPRESSION: No acute intracranial pathology. This critical result was discussed with Dr. Chu at 8:30 hours on 10/20/2021. It was ascertained that the content and urgency of the report was understood at the time of direct communication. Head CT 11/20/21 19:29 IMPRESSION: No acute intracranial pathology. Medications Medications Current Medications Acetaminophen (Acetaminophen 325 Mg Tablet) 650 mg PO Q6H PRN PRN Reason: Headache/Pain Mild Scale (1-3) Last Admin: 12/08/21 21:52 Dose: 650 mg Documented by: Al Hydroxide/Mg Hydroxide (Magnesium Hydrox/Alum Hydrox 30 Ml Oral.Susp) 30 ml PO Q6H PRN PRN Reason: Heartburn/Nausea Apixaban (Apixaban 5 Mg Tablet) 5 mg PO BID [facility] Last Admin: 12/09/21 11:56 Dose: Not Given Documented by: Benztropine Mesylate (Benztropine Mesylate 1 Mg Tablet) 1 mg PO BID [facility] Last Admin: 12/09/21 11:56 Dose: Not Given Documented by: Bisacodyl (Bisacodyl 10 Mg Supp.Rect) 10 mg FL DAILY PRN PRN Reason: Constipation Last Admin: 12/06/21 17:29 Dose: 10 mg Documented by: Clozapine (Clozapine 100 Mg Tablet) 150 mg PO DAILY@1700 [facility] Last Admin: 12/08/21 17:06 Dose: 150 mg Documented by: Clozapine (Clozapine 100 Mg Tablet) 250 mg PO BEDTIME [facility] Last Admin: 12/08/21 20:25 Dose: 250 mg Documented by: Clozapine (Clozapine 100 Mg Tablet) 100 mg PO DAILY [facility] Last Admin: 12/09/21 11:57 Dose: Not Given Documented by: Desmopressin Acetate (Desmopressin Acetate 0.2 Mg Tablet) 0.2 mg PO BID [facility] Last Admin: 12/09/21 11:57 Dose: Not Given Documented by: Docusate Sodium (Docusate Sodium 100 Mg Capsule) 100 mg PO BEDTIME [facility] Last Admin: 12/08/21 20:26 Dose: 100 mg Documented by: Haloperidol (Haloperidol 1 Mg Tablet) 2 mg PO TID [facility] Last Admin: 12/09/21 11:57 Dose: Not Given Documented by: Hydrochlorothiazide (Hydrochlorothiazide 25 Mg Tablet) 25 mg PO DAILY [facility]; Protocol Last Admin: 12/09/21 11:58 Dose: Not Given Documented by: Hydroxyzine HCl (Hydroxyzine Hcl 25 Mg Tablet) 25 mg PO BEDTIME PRN PRN Reason: Anxiety Last Admin: 12/01/21 22:17 Dose: 25 mg Documented by: Hydroxyzine HCl (Hydroxyzine Hcl 25 Mg Tablet) 25 mg PO BID PRN PRN Reason: Anxiety Last Admin: 12/02/21 16:59 Dose: 25 mg Documented by: Loperamide HCl (Loperamide Hcl 2 Mg Capsule) 4 mg PO Q4H PRN PRN Reason: Diarrhea Last Admin: 11/01/21 17:04 Dose: 4 mg Documented by: Lorazepam (Lorazepam 1 Mg Tablet) 2 mg PO BEDTIME [facility] Last Admin: 12/08/21 20:26 Dose: 2 mg Documented by: Magnesium Hydroxide (Milk Of Magnesia 30 Ml Oral.Susp) 30 ml PO DAILY PRN PRN Reason: Constipation Last Admin: 12/01/21 15:13 Dose: 30 ml Documented by: Mirtazapine (Mirtazapine 15 Mg Tablet) 15 mg PO BEDTIME [facility] Last Admin: 12/08/21 20:26 Dose: 15 mg Documented by: Olanzapine (Olanzapine 10 Mg Vial) 5 mg IM TID PRN PRN Reason: Psychosis Last Admin: 12/07/21 10:09 Dose: 5 mg Documented by: Potassium Chloride (Potassium Chloride Er 10 Meq Capsule.Er) 40 meq PO BID [facility] Last Admin: 12/09/21 11:59 Dose: 40 meq Documented by: Senna (Sennosides 8.6 Mg Tablet) 8.6 mg PO BEDTIME [facility] Last Admin: 12/08/21 20:27 Dose: 8.6 mg Documented by: Trazodone HCl (Trazodone Hcl 50 Mg Tablet) 50 mg PO BEDTIME PRN PRN Reason: Insomnia Last Admin: 12/04/21 20:07 Dose: 50 mg Documented by: Trolamine Salicylate/Aloe Vera (Trolamine Salicylate 10%/Aloe Cream 35.4 Gm) 1 appl TOPICAL TID PRN PRN Reason: neck pain Last Admin: 12/08/21 14:54 Dose: 1 appl Documented by: Allergies Allergies Allergy/AdvReac Type Severity Reaction Status Date / Time No Known Allergies Allergy Unverified 05/01/20 19:42 [No Known Allergies*] Assessment & Plan Assessment & Plan (1) Schizophrenia, paranoid, chronic with acute exacerbation: Status: Acute Code(s): F20.0 - Paranoid schizophrenia (2) Hypertension: Status: Acute Code(s): I10 - Essential (primary) hypertension Plan Elderly female with a long history of schizoaffective disorder bipolar type who was admitted into the facility for exacerbation of psychosis and mood lability. The patient is on Clozaril and apparently she has not been fully compliant with treatment. 11/21 slipped, hit head on 11/20, head CT reviewed and unremarkable Plan 1. The patient at this moment is on 2 psychotics, Clozaril and Invega Sustenna. Her last dose of Invega was less week. Apparently her psychosis has Worsened since she is poorly compliant with Clozaril p.o.. We discussed on rounds at length and legally we can add PRNs IM as per healthcare proxy. 2. Zyprexa 5 mg IM p.r.n. the patient refuses Clozaril. 3. Keep Clozaril 100 mg p.o. in the morning and 150 in the afternoon. at Haldol 2 mg PT I spent __20____ minutes with the patient and/or on the patient floor today, greater than?50% of which was spent counseling/coordinating care. Reason for contiued inpatient stay Substantial Risk for: inability to function, rapid decompensation and med/psych decompensation
[2021-12-09] MEDS: cloZAPine 100 MG TABLET 150 MG PO (15:55)
[2021-12-09] MEDS: HaloperidoL 1 MG TABLET 2 MG PO ×2 (15:56→19:34)
[2021-12-09 18:30] VITALS: BP 121/53; PULSE 99; O2SAT 98
[2021-12-09] MEDS: Benztropine Mesylate 1 MG TABLET PO (19:35)
[2021-12-09] MEDS: Mirtazapine 15 MG TABLET PO (19:35)
[2021-12-09] MEDS: Docusate Sodium 100 MG CAPSULE PO (19:35)
[2021-12-09] MEDS: LORazepam 1 MG TABLET 2 MG PO (19:36)
[2021-12-09] MEDS: cloZAPine 100 MG TABLET 250 MG PO (19:36)
[2021-12-09] MEDS: Apixaban 5 MG TABLET PO (19:37)
[2021-12-09] MEDS: Desmopressin Acetate 0.2 MG TABLET PO (19:37)
[2021-12-09] MEDS: Sennosides 8.6 MG TABLET PO (19:37)
[2021-12-10 07:30] VITALS: BP 113/69; PULSE 102; RESP 18; TEMP 36.8; O2SAT 96
[2021-12-10] MEDS: Desmopressin Acetate 0.2 MG TABLET PO ×2 (08:30→19:57)
[2021-12-10] MEDS: HaloperidoL 1 MG TABLET 2 MG PO (08:31)
[2021-12-10] MEDS: cloZAPine 100 MG TABLET PO (08:31)
[2021-12-10] MEDS: Benztropine Mesylate 1 MG TABLET PO ×2 (08:31→19:57)
[2021-12-10] MEDS: Apixaban 5 MG TABLET PO ×2 (08:32→19:57)
[2021-12-10] MEDS: hydroCHLOROthiazide 25 MG TABLET PO (08:32)
--- NOTE | 2021-12-10 15:37 | HO.PSYCHPN ---
Subjective Subjective Date of Service: 12/10/21 Reason For Visit: psychotic disorder Subjective Notes: Conditional Voluntary Interim History: the nursing staff reported the patient slept well last night, she took her medications since her daughter came to visit her and she help the patient to cooperate. Apparently, her daughter never told her that she lost her apartment. She has been responding to internal stimuli and yelling to the voices. She is has been fully compliant with treatment Mental Status Exam Mental Status Exam Patient Appearance: Disheveled Patient Orientation: Person and Situation Level of Consciousness: Awake Patient Behavior: Guarded and Suspicious Mood Description: Withdrawn Affect Description: Labile Patient Cognition Impaired: Yes Ability to Follow Directions: Fair Speech Pattern: Clear Hallucinations: Auditory Delusions: Paranoid Ideation Perceptual Disturbances: Hallucinations Thought Process: Distracted Thought Content: positive for Poverty of Content and positive for Disorganized Judgement: Fair Diagnostics Vital Signs (24Hr): Vital Signs - 24 hr 12/09/21 18:30 12/10/21 07:30 Temperature 98.3 F Pulse Rate 99 102 H Respiratory Rate 18 Blood Pressure 121/53 L 113/69 Pulse Oximetry 98 96 BMI result Body Mass Index 26.4 Labs Results: 10/26/21 07:50 11/01/21 07:05 Imaging Radiology Impressions: ITS Impressions Head CT 10/08/21 15:16 IMPRESSION: No acute intracranial pathology. Head CT 10/09/21 13:54 IMPRESSION: No acute intracranial pathology. Pelvic/Transvag US 10/13/21 09:24 IMPRESSION: Abnormally thickened endometrium for a postmenopausal patient measuring 0.9 cm. 3 x 2.7 x 3.7 cm mass in the posterior cervix. This may represent a fibroid. Slightly thickened trabeculated bladder wall. Head CT 10/20/21 08:18 IMPRESSION: No acute intracranial pathology. This critical result was discussed with Dr. Chu at 8:30 hours on 10/20/2021. It was ascertained that the content and urgency of the report was understood at the time of direct communication. Head CT 11/20/21 19:29 IMPRESSION: No acute intracranial pathology. Medications Medications Current Medications Acetaminophen (Acetaminophen 325 Mg Tablet) 650 mg PO Q6H PRN PRN Reason: Headache/Pain Mild Scale (1-3) Last Admin: 12/08/21 21:52 Dose: 650 mg Documented by: Al Hydroxide/Mg Hydroxide (Magnesium Hydrox/Alum Hydrox 30 Ml Oral.Susp) 30 ml PO Q6H PRN PRN Reason: Heartburn/Nausea Apixaban (Apixaban 5 Mg Tablet) 5 mg PO BID [facility] Last Admin: 12/10/21 08:32 Dose: 5 mg Documented by: Benztropine Mesylate (Benztropine Mesylate 1 Mg Tablet) 1 mg PO BID [facility] Last Admin: 12/10/21 08:31 Dose: 1 mg Documented by: Bisacodyl (Bisacodyl 10 Mg Supp.Rect) 10 mg [place] DAILY PRN PRN Reason: Constipation Last Admin: 12/06/21 17:29 Dose: 10 mg Documented by: Clozapine (Clozapine 100 Mg Tablet) 100 mg PO DAILY [facility] Last Admin: 12/10/21 08:31 Dose: 100 mg Documented by: Clozapine (Clozapine 100 Mg Tablet) 200 mg PO DAILY@1700 [facility] Clozapine (Clozapine 100 Mg Tablet) 300 mg PO BEDTIME [facility] Desmopressin Acetate (Desmopressin Acetate 0.2 Mg Tablet) 0.2 mg PO BID [facility] Last Admin: 12/10/21 08:30 Dose: 0.2 mg Documented by: Docusate Sodium (Docusate Sodium 100 Mg Capsule) 100 mg PO BEDTIME [facility] Last Admin: 12/09/21 19:35 Dose: 100 mg Documented by: Haloperidol (Haloperidol 5 Mg Tablet) 5 mg PO BID [facility] Hydrochlorothiazide (Hydrochlorothiazide 25 Mg Tablet) 25 mg PO DAILY [facility]; Protocol Last Admin: 12/10/21 08:32 Dose: 25 mg Documented by: Hydroxyzine HCl (Hydroxyzine Hcl 25 Mg Tablet) 25 mg PO BEDTIME PRN PRN Reason: Anxiety Last Admin: 12/01/21 22:17 Dose: 25 mg Documented by: Hydroxyzine HCl (Hydroxyzine Hcl 25 Mg Tablet) 25 mg PO BID PRN PRN Reason: Anxiety Last Admin: 12/02/21 16:59 Dose: 25 mg Documented by: Loperamide HCl (Loperamide Hcl 2 Mg Capsule) 4 mg PO Q4H PRN PRN Reason: Diarrhea Last Admin: 11/01/21 17:04 Dose: 4 mg Documented by: Magnesium Hydroxide (Milk Of Magnesia 30 Ml Oral.Susp) 30 ml PO DAILY PRN PRN Reason: Constipation Last Admin: 12/01/21 15:13 Dose: 30 ml Documented by: Mirtazapine (Mirtazapine 15 Mg Tablet) 15 mg PO BEDTIME [facility] Last Admin: 12/09/21 19:35 Dose: 15 mg Documented by: Olanzapine (Olanzapine 10 Mg Vial) 5 mg IM TID PRN PRN Reason: Psychosis Last Admin: 12/07/21 10:09 Dose: 5 mg Documented by: Potassium Chloride (Potassium Chloride Er 10 Meq Capsule.Er) 40 meq PO BID [facility] Last Admin: 12/10/21 13:01 Dose: 40 meq Documented by: Senna (Sennosides 8.6 Mg Tablet) 8.6 mg PO BEDTIME [facility] Last Admin: 12/09/21 19:37 Dose: 8.6 mg Documented by: Trazodone HCl (Trazodone Hcl 50 Mg Tablet) 50 mg PO BEDTIME PRN PRN Reason: Insomnia Last Admin: 12/04/21 20:07 Dose: 50 mg Documented by: Trolamine Salicylate/Aloe Vera (Trolamine Salicylate 10%/Aloe Cream 35.4 Gm) 1 appl TOPICAL TID PRN PRN Reason: neck pain Last Admin: 12/08/21 14:54 Dose: 1 appl Documented by: Allergies Allergies Allergy/AdvReac Type Severity Reaction Status Date / Time No Known Allergies Allergy Unverified 05/01/20 19:42 [No Known Allergies*] Assessment & Plan Assessment & Plan (1) Schizophrenia, paranoid, chronic with acute exacerbation: Status: Acute Code(s): F20.0 - Paranoid schizophrenia (2) Hypertension: Status: Acute Code(s): I10 - Essential (primary) hypertension Plan Elderly female with a long history of schizoaffective disorder bipolar type who was admitted into the facility for exacerbation of psychosis and mood lability. The patient is on Clozaril and apparently she has not been fully compliant with treatment. 11/21 slipped, hit head on 11/20, head CT reviewed and unremarkable Plan 1. The patient at this moment is on 2 psychotics, Clozaril and Invega Sustenna. Her last dose of Invega was less week. Apparently her psychosis has Worsened since she is poorly compliant with Clozaril p.o.. We discussed on rounds at length and legally we can add PRNs IM as per healthcare proxy. 2. Zyprexa 5 mg IM p.r.n. the patient refuses Clozaril. 3. Keep Clozaril 100 mg p.o. in the morning and 150 in the afternoon. 4. Increase Haldol up to 5 mg p.o. b.i.d. to target psychosis I spent minutes with the patient and/or on the patient floor today, greater than?50% of which was spent counseling/coordinating care. Reason for contiued inpatient stay Substantial Risk for: inability to function, rapid decompensation and med/psych decompensation
[2021-12-10 16:31] VITALS: BMI 27.5
[2021-12-10] MEDS: cloZAPine 100 MG TABLET 200 MG PO (16:38)
[2021-12-10] MEDS: Mirtazapine 15 MG TABLET PO (19:57)
[2021-12-10] MEDS: Sennosides 8.6 MG TABLET PO (19:57)
[2021-12-10] MEDS: cloZAPine 100 MG TABLET 300 MG PO (19:57)
[2021-12-10] MEDS: HaloperidoL 5 MG TABLET PO (19:57)
[2021-12-10] MEDS: Docusate Sodium 100 MG CAPSULE PO (19:57)
[2021-12-10 21:14] VITALS: BP 121/59; PULSE 70; TEMP 36.6
[2021-12-11 06:00] VITALS: BP 146/75; PULSE 102; RESP 18; TEMP 36.3; O2SAT 98
[2021-12-11] MEDS: hydroCHLOROthiazide 25 MG TABLET PO (09:00)
[2021-12-11] MEDS: cloZAPine 100 MG TABLET PO (09:00)
[2021-12-11] MEDS: Benztropine Mesylate 1 MG TABLET PO ×2 (09:01→21:22)
[2021-12-11] MEDS: Apixaban 5 MG TABLET PO ×2 (09:01→21:21)
[2021-12-11] MEDS: Desmopressin Acetate 0.2 MG TABLET PO ×2 (09:01→21:22)
[2021-12-11] MEDS: HaloperidoL 5 MG TABLET PO ×2 (09:01→21:22)
--- NOTE | 2021-12-11 14:59 | HO.PSYCHPN ---
Subjective Subjective Date of Service: 12/11/21 Reason For Visit: psychotic disorder Subjective Notes: Conditional Voluntary Interim History: The nursing staff reported the patient has been compliant with treatment. Today in the morning she was screaming responding to internal stimuli needed p.r.n. medication. On interview, the patient was sedated still dysphoric with labile affect. The patient is not responding to Clozaril, Invega Sustenna and the new addition of Haldol p.o.. Mental Status Exam Mental Status Exam Patient Appearance: Disheveled Patient Orientation: Person and Situation Level of Consciousness: Awake Patient Behavior: Cooperative Mood Description: Suspicious and Withdrawn Affect Description: Labile Patient Cognition Impaired: Yes Ability to Follow Directions: Good Speech Pattern: Impoverished, Monotone and Rambling Hallucinations: Auditory Delusions: Paranoid Ideation and Grandiose Thought Process: Illogical Judgement: Fair Diagnostics Vital Signs (24Hr): Vital Signs - 24 hr 12/10/21 21:14 12/11/21 06:00 Temperature 97.8 F 97.4 F Pulse Rate 70 102 H Respiratory Rate 18 Blood Pressure 121/59 L 146/75 H Pulse Oximetry 98 BMI result Body Mass Index 27.5 Labs Results: 10/26/21 07:50 11/01/21 07:05 Imaging Radiology Impressions: ITS Impressions Head CT 10/08/21 15:16 IMPRESSION: No acute intracranial pathology. Head CT 10/09/21 13:54 IMPRESSION: No acute intracranial pathology. Pelvic/Transvag US 10/13/21 09:24 IMPRESSION: Abnormally thickened endometrium for a postmenopausal patient measuring 0.9 cm. 3 x 2.7 x 3.7 cm mass in the posterior cervix. This may represent a fibroid. Slightly thickened trabeculated bladder wall. Head CT 10/20/21 08:18 IMPRESSION: No acute intracranial pathology. This critical result was discussed with Dr. Chu at 8:30 hours on 10/20/2021. It was ascertained that the content and urgency of the report was understood at the time of direct communication. Head CT 11/20/21 19:29 IMPRESSION: No acute intracranial pathology. Medications Medications Current Medications Acetaminophen (Acetaminophen 325 Mg Tablet) 650 mg PO Q6H PRN PRN Reason: Headache/Pain Mild Scale (1-3) Last Admin: 12/08/21 21:52 Dose: 650 mg Documented by: Al Hydroxide/Mg Hydroxide (Magnesium Hydrox/Alum Hydrox 30 Ml Oral.Susp) 30 ml PO Q6H PRN PRN Reason: Heartburn/Nausea Apixaban (Apixaban 5 Mg Tablet) 5 mg PO BID [facility] Last Admin: 12/11/21 09:01 Dose: 5 mg Documented by: Benztropine Mesylate (Benztropine Mesylate 1 Mg Tablet) 1 mg PO BID [facility] Last Admin: 12/11/21 09:01 Dose: 1 mg Documented by: Bisacodyl (Bisacodyl 10 Mg Supp.Rect) 10 mg [place] DAILY PRN PRN Reason: Constipation Last Admin: 12/06/21 17:29 Dose: 10 mg Documented by: Clozapine (Clozapine 100 Mg Tablet) 100 mg PO DAILY [facility] Last Admin: 12/11/21 09:00 Dose: 100 mg Documented by: Clozapine (Clozapine 100 Mg Tablet) 200 mg PO DAILY@1700 [facility] Last Admin: 12/10/21 16:38 Dose: 200 mg Documented by: Clozapine (Clozapine 100 Mg Tablet) 300 mg PO BEDTIME [facility] Last Admin: 12/10/21 19:57 Dose: 300 mg Documented by: Desmopressin Acetate (Desmopressin Acetate 0.2 Mg Tablet) 0.2 mg PO BID [facility] Last Admin: 12/11/21 09:01 Dose: 0.2 mg Documented by: Docusate Sodium (Docusate Sodium 100 Mg Capsule) 100 mg PO BEDTIME [facility] Last Admin: 12/10/21 19:57 Dose: 100 mg Documented by: Haloperidol (Haloperidol 5 Mg Tablet) 5 mg PO BID [facility] Last Admin: 12/11/21 09:01 Dose: 5 mg Documented by: Hydrochlorothiazide (Hydrochlorothiazide 25 Mg Tablet) 25 mg PO DAILY [facility]; Protocol Last Admin: 12/11/21 09:00 Dose: 25 mg Documented by: Hydroxyzine HCl (Hydroxyzine Hcl 25 Mg Tablet) 25 mg PO BEDTIME PRN PRN Reason: Anxiety Last Admin: 12/01/21 22:17 Dose: 25 mg Documented by: Hydroxyzine HCl (Hydroxyzine Hcl 25 Mg Tablet) 25 mg PO BID PRN PRN Reason: Anxiety Last Admin: 12/02/21 16:59 Dose: 25 mg Documented by: Loperamide HCl (Loperamide Hcl 2 Mg Capsule) 4 mg PO Q4H PRN PRN Reason: Diarrhea Last Admin: 11/01/21 17:04 Dose: 4 mg Documented by: Magnesium Hydroxide (Milk Of Magnesia 30 Ml Oral.Susp) 30 ml PO DAILY PRN PRN Reason: Constipation Last Admin: 12/01/21 15:13 Dose: 30 ml Documented by: Mirtazapine (Mirtazapine 15 Mg Tablet) 15 mg PO BEDTIME [facility] Last Admin: 12/10/21 19:57 Dose: 15 mg Documented by: Olanzapine (Olanzapine 10 Mg Vial) 5 mg IM TID PRN PRN Reason: Psychosis Last Admin: 12/07/21 10:09 Dose: 5 mg Documented by: Potassium Chloride (Potassium Chloride Er 10 Meq Capsule.Er) 40 meq PO BID [facility] Last Admin: 12/11/21 09:01 Dose: 40 meq Documented by: Senna (Sennosides 8.6 Mg Tablet) 8.6 mg PO BEDTIME [facility] Last Admin: 12/10/21 19:57 Dose: 8.6 mg Documented by: Trazodone HCl (Trazodone Hcl 50 Mg Tablet) 50 mg PO BEDTIME PRN PRN Reason: Insomnia Last Admin: 12/04/21 20:07 Dose: 50 mg Documented by: Trolamine Salicylate/Aloe Vera (Trolamine Salicylate 10%/Aloe Cream 35.4 Gm) 1 appl TOPICAL TID PRN PRN Reason: neck pain Last Admin: 12/08/21 14:54 Dose: 1 appl Documented by: Allergies Allergies Allergy/AdvReac Type Severity Reaction Status Date / Time No Known Allergies Allergy Unverified 05/01/20 19:42 [No Known Allergies*] Assessment & Plan Assessment & Plan (1) Schizophrenia, paranoid, chronic with acute exacerbation: Status: Acute Code(s): F20.0 - Paranoid schizophrenia (2) Hypertension: Status: Acute Code(s): I10 - Essential (primary) hypertension Plan Elderly female with a long history of schizoaffective disorder bipolar type who was admitted into the facility for exacerbation of psychosis and mood lability. The patient is on Clozaril and apparently she has not been fully compliant with treatment. 11/21 slipped, hit head on 11/20, head CT reviewed and unremarkable Plan 1. The patient at this moment is on 2 psychotics, Clozaril and Invega Sustenna. Her last dose of Invega was less week. Apparently her psychosis has Worsened since she is poorly compliant with Clozaril p.o.. We discussed on rounds at length and legally we can add PRNs IM as per healthcare proxy. 2. Zyprexa 5 mg IM p.r.n. the patient refuses Clozaril. 3. Keep Clozaril 100 mg p.o. in the morning and 150 in the afternoon. 4. Increase Haldol up to 5 mg p.o. b.i.d. to target psychosis I spent ____20__ minutes with the patient and/or on the patient floor today, greater than?50% of which was spent counseling/coordinating care. Reason for contiued inpatient stay Substantial Risk for: inability to function, rapid decompensation and med/psych decompensation
[2021-12-11] MEDS: cloZAPine 100 MG TABLET 200 MG PO (16:11)
[2021-12-11] MEDS: Mirtazapine 15 MG TABLET PO (21:22)
[2021-12-11] MEDS: Docusate Sodium 100 MG CAPSULE PO (21:22)
[2021-12-11] MEDS: cloZAPine 100 MG TABLET 300 MG PO (21:22)
[2021-12-11] MEDS: Sennosides 8.6 MG TABLET PO (21:23)
[2021-12-11 22:06] VITALS: BP 125/83; PULSE 99; RESP 19; TEMP 36.2; O2SAT 97
[2021-12-12] MEDS: OLANZapine 10 MG VIAL 5 MG IM (10:45)
--- NOTE | 2021-12-12 15:42 | HO.PSYCHPN ---
Subjective Subjective Date of Service: 12/12/21 Reason For Visit: psychotic disorder Subjective Notes: Conditional Voluntary Healthcare Proxy: Yes Interim History: attempted to meet with patient multiple times. Declined to engage. As per staff has been hallucinating and distressed around same. Sleeping okay. Medication Compliance: Yes Side effects from medications: No Attending Groups: No Review of Systems Acute medical concerns: No Review of Systems Review of Systems Yes Unobtainable due to mental status Mental Status Exam Mental Status Exam Narrative: In bed. Refusing to engage with handbook writer. Diagnostics Vital Signs (24Hr): Vital Signs - 24 hr 12/11/21 22:06 Temperature 97.2 F Pulse Rate 99 Respiratory Rate 19 Blood Pressure 125/83 Pulse Oximetry 97 BMI result Body Mass Index 27.5 Labs Results: 10/26/21 07:50 11/01/21 07:05 Imaging Radiology Impressions: ITS Impressions Head CT 10/08/21 15:16 IMPRESSION: No acute intracranial pathology. Head CT 10/09/21 13:54 IMPRESSION: No acute intracranial pathology. Pelvic/Transvag US 10/13/21 09:24 IMPRESSION: Abnormally thickened endometrium for a postmenopausal patient measuring 0.9 cm. 3 x 2.7 x 3.7 cm mass in the posterior cervix. This may represent a fibroid. Slightly thickened trabeculated bladder wall. Head CT 10/20/21 08:18 IMPRESSION: No acute intracranial pathology. This critical result was discussed with Dr. Chu at 8:30 hours on 10/20/2021. It was ascertained that the content and urgency of the report was understood at the time of direct communication. Head CT 11/20/21 19:29 IMPRESSION: No acute intracranial pathology. Medications Medications Current Medications Acetaminophen (Acetaminophen 325 Mg Tablet) 650 mg PO Q6H PRN PRN Reason: Headache/Pain Mild Scale (1-3) Last Admin: 12/08/21 21:52 Dose: 650 mg Documented by: Al Hydroxide/Mg Hydroxide (Magnesium Hydrox/Alum Hydrox 30 Ml Oral.Susp) 30 ml PO Q6H PRN PRN Reason: Heartburn/Nausea Apixaban (Apixaban 5 Mg Tablet) 5 mg PO BID [facility] Last Admin: 12/12/21 10:44 Dose: Not Given Documented by: Benztropine Mesylate (Benztropine Mesylate 1 Mg Tablet) 1 mg PO BID [facility] Last Admin: 12/12/21 10:44 Dose: Not Given Documented by: Bisacodyl (Bisacodyl 10 Mg Supp.Rect) 10 mg [place] DAILY PRN PRN Reason: Constipation Last Admin: 12/06/21 17:29 Dose: 10 mg Documented by: Clozapine (Clozapine 100 Mg Tablet) 100 mg PO DAILY [facility] Last Admin: 12/12/21 10:44 Dose: Not Given Documented by: Clozapine (Clozapine 100 Mg Tablet) 200 mg PO DAILY@1700 [facility] Last Admin: 12/11/21 16:11 Dose: 200 mg Documented by: Clozapine (Clozapine 100 Mg Tablet) 300 mg PO BEDTIME [facility] Last Admin: 12/11/21 21:22 Dose: 300 mg Documented by: Desmopressin Acetate (Desmopressin Acetate 0.2 Mg Tablet) 0.2 mg PO BID [facility] Last Admin: 12/12/21 10:45 Dose: Not Given Documented by: Docusate Sodium (Docusate Sodium 100 Mg Capsule) 100 mg PO BEDTIME [facility] Last Admin: 12/11/21 21:22 Dose: 100 mg Documented by: Haloperidol (Haloperidol 5 Mg Tablet) 5 mg PO BID [facility] Last Admin: 12/12/21 10:45 Dose: Not Given Documented by: Hydrochlorothiazide (Hydrochlorothiazide 25 Mg Tablet) 25 mg PO DAILY [facility]; Protocol Last Admin: 12/12/21 10:45 Dose: Not Given Documented by: Hydroxyzine HCl (Hydroxyzine Hcl 25 Mg Tablet) 25 mg PO BEDTIME PRN PRN Reason: Anxiety Last Admin: 12/01/21 22:17 Dose: 25 mg Documented by: Hydroxyzine HCl (Hydroxyzine Hcl 25 Mg Tablet) 25 mg PO BID PRN PRN Reason: Anxiety Last Admin: 12/02/21 16:59 Dose: 25 mg Documented by: Loperamide HCl (Loperamide Hcl 2 Mg Capsule) 4 mg PO Q4H PRN PRN Reason: Diarrhea Last Admin: 11/01/21 17:04 Dose: 4 mg Documented by: Magnesium Hydroxide (Milk Of Magnesia 30 Ml Oral.Susp) 30 ml PO DAILY PRN PRN Reason: Constipation Last Admin: 12/01/21 15:13 Dose: 30 ml Documented by: Mirtazapine (Mirtazapine 15 Mg Tablet) 15 mg PO BEDTIME [facility] Last Admin: 12/11/21 21:22 Dose: 15 mg Documented by: Olanzapine (Olanzapine 10 Mg Vial) 5 mg IM TID PRN PRN Reason: Psychosis Last Admin: 12/12/21 10:45 Dose: 5 mg Documented by: Potassium Chloride (Potassium Chloride Er 10 Meq Capsule.Er) 40 meq PO BID [facility] Last Admin: 12/12/21 10:45 Dose: Not Given Documented by: Senna (Sennosides 8.6 Mg Tablet) 8.6 mg PO BEDTIME [facility] Last Admin: 12/11/21 21:23 Dose: 8.6 mg Documented by: Trazodone HCl (Trazodone Hcl 50 Mg Tablet) 50 mg PO BEDTIME PRN PRN Reason: Insomnia Last Admin: 12/04/21 20:07 Dose: 50 mg Documented by: Trolamine Salicylate/Aloe Vera (Trolamine Salicylate 10%/Aloe Cream 35.4 Gm) 1 appl TOPICAL TID PRN PRN Reason: neck pain Last Admin: 12/08/21 14:54 Dose: 1 appl Documented by: Allergies Allergies Allergy/AdvReac Type Severity Reaction Status Date / Time No Known Allergies Allergy Unverified 05/01/20 19:42 [No Known Allergies*] Assessment & Plan Assessment & Plan (1) Schizophrenia, paranoid, chronic with acute exacerbation: Status: Acute Code(s): F20.0 - Paranoid schizophrenia (2) Hypertension: Status: Acute Code(s): I10 - Essential (primary) hypertension Plan Elderly female with a long history of schizoaffective disorder bipolar type who was admitted into the facility for exacerbation of psychosis and mood lability. The patient is on Clozaril and apparently she has not been fully compliant with treatment. 11/21 slipped, hit head on 11/20, head CT reviewed and unremarkable Plan 1. The patient at this moment is on 2 psychotics, Clozaril and Invega Sustenna. Her last dose of Invega was less week. Apparently her psychosis has Worsened since she is poorly compliant with Clozaril p.o.. We discussed on rounds at length and legally we can add PRNs IM as per healthcare proxy. 2. Zyprexa 5 mg IM p.r.n. the patient refuses Clozaril. 3. Keep Clozaril 100 mg p.o. in the morning and 150 in the afternoon. 4. Increase Haldol up to 5 mg p.o. b.i.d. to target psychosis 12/12/2021: No changes to team's primary treatment plan I spent minutes with the patient and/or on the patient floor today, greater than?50% of which was spent counseling/coordinating care. Reason for contiued inpatient stay Substantial Risk for: inability to function
[2021-12-12] MEDS: cloZAPine 100 MG TABLET 200 MG PO (16:47)
[2021-12-12] MEDS: Apixaban 5 MG TABLET PO (20:33)
[2021-12-12] MEDS: Benztropine Mesylate 1 MG TABLET PO (20:34)
[2021-12-12] MEDS: HaloperidoL 5 MG TABLET PO (20:35)
[2021-12-12] MEDS: Desmopressin Acetate 0.2 MG TABLET PO (20:35)
[2021-12-12] MEDS: Mirtazapine 15 MG TABLET PO (20:35)
[2021-12-12] MEDS: Docusate Sodium 100 MG CAPSULE PO (20:35)
[2021-12-12] MEDS: Sennosides 8.6 MG TABLET PO (20:35)
[2021-12-12] MEDS: cloZAPine 100 MG TABLET 300 MG PO (20:35)
[2021-12-12 21:56] VITALS: BP 133/65; PULSE 100; RESP 19; TEMP 36.4; O2SAT 99
[2021-12-13] MEDS: hydrOXYzine HCL 25 MG TABLET PO (04:08)
[2021-12-13] MEDS: traZODone HCL 50 MG TABLET PO ×2 (04:08→21:56)
[2021-12-13 06:00] VITALS: BP 107/60; PULSE 93; RESP 16; TEMP 36.4; O2SAT 98
[2021-12-13] MEDS: cloZAPine 100 MG TABLET PO (09:17)
[2021-12-13] MEDS: Apixaban 5 MG TABLET PO ×2 (09:18→21:55)
[2021-12-13] MEDS: Benztropine Mesylate 1 MG TABLET PO ×2 (09:18→21:56)
[2021-12-13] MEDS: hydroCHLOROthiazide 25 MG TABLET PO (09:18)
[2021-12-13] MEDS: HaloperidoL 5 MG TABLET PO ×2 (09:18→21:56)
[2021-12-13] MEDS: Desmopressin Acetate 0.2 MG TABLET PO ×2 (09:18→21:56)
--- NOTE | 2021-12-13 12:10 | HO.PSYCHPN ---
Subjective Subjective Date of Service: 12/13/21 Reason For Visit: psychotic disorder Subjective Notes: Conditional Voluntary Healthcare Proxy: Yes Interim History: Reports today sleep has been diffocult due to hallucinations. Did not want to elaborate. Was focused on discharge. Did take medications today. Denied SI. Reports feeling safe and cared for. Medication Compliance: Yes Side effects from medications: No Attending Groups: No Review of Systems Acute medical concerns: No Review of Systems Review of Systems unremarkable Mental Status Exam Mental Status Exam Patient Appearance: Disheveled Patient Orientation: Person and Situation Level of Consciousness: Awake Patient Behavior: Cooperative Mood Description: Suspicious and Withdrawn Affect Description: Labile Patient Cognition Impaired: Yes Ability to Follow Directions: Good Speech Pattern: Impoverished, Monotone and Rambling Memory Description: Intact Diagnostics Vital Signs (24Hr): Vital Signs - 24 hr 12/12/21 21:56 12/13/21 06:00 Temperature 97.6 F 97.6 F Pulse Rate 100 93 Respiratory Rate 19 16 Blood Pressure 133/65 107/60 Pulse Oximetry 99 98 BMI result Body Mass Index 27.5 Labs Results: 10/26/21 07:50 11/01/21 07:05 Imaging Radiology Impressions: ITS Impressions Head CT 10/08/21 15:16 IMPRESSION: No acute intracranial pathology. Head CT 10/09/21 13:54 IMPRESSION: No acute intracranial pathology. Pelvic/Transvag US 10/13/21 09:24 IMPRESSION: Abnormally thickened endometrium for a postmenopausal patient measuring 0.9 cm. 3 x 2.7 x 3.7 cm mass in the posterior cervix. This may represent a fibroid. Slightly thickened trabeculated bladder wall. Head CT 10/20/21 08:18 IMPRESSION: No acute intracranial pathology. This critical result was discussed with Dr. Chu at 8:30 hours on 10/20/2021. It was ascertained that the content and urgency of the report was understood at the time of direct communication. Head CT 11/20/21 19:29 IMPRESSION: No acute intracranial pathology. Medications Medications Current Medications Acetaminophen (Acetaminophen 325 Mg Tablet) 650 mg PO Q6H PRN PRN Reason: Headache/Pain Mild Scale (1-3) Last Admin: 12/08/21 21:52 Dose: 650 mg Documented by: Al Hydroxide/Mg Hydroxide (Magnesium Hydrox/Alum Hydrox 30 Ml Oral.Susp) 30 ml PO Q6H PRN PRN Reason: Heartburn/Nausea Apixaban (Apixaban 5 Mg Tablet) 5 mg PO BID [facility] Last Admin: 12/13/21 09:18 Dose: 5 mg Documented by: Benztropine Mesylate (Benztropine Mesylate 1 Mg Tablet) 1 mg PO BID [facility] Last Admin: 12/13/21 09:18 Dose: 1 mg Documented by: Bisacodyl (Bisacodyl 10 Mg Supp.Rect) 10 mg [place] DAILY PRN PRN Reason: Constipation Last Admin: 12/06/21 17:29 Dose: 10 mg Documented by: Clozapine (Clozapine 100 Mg Tablet) 100 mg PO DAILY [facility] Last Admin: 12/13/21 09:17 Dose: 100 mg Documented by: Clozapine (Clozapine 100 Mg Tablet) 200 mg PO DAILY@1700 [facility] Last Admin: 12/12/21 16:47 Dose: 200 mg Documented by: Clozapine (Clozapine 100 Mg Tablet) 300 mg PO BEDTIME [facility] Last Admin: 12/12/21 20:35 Dose: 300 mg Documented by: Desmopressin Acetate (Desmopressin Acetate 0.2 Mg Tablet) 0.2 mg PO BID [facility] Last Admin: 12/13/21 09:18 Dose: 0.2 mg Documented by: Docusate Sodium (Docusate Sodium 100 Mg Capsule) 100 mg PO BEDTIME [facility] Last Admin: 12/12/21 20:35 Dose: 100 mg Documented by: Haloperidol (Haloperidol 5 Mg Tablet) 5 mg PO BID [facility] Last Admin: 12/13/21 09:18 Dose: 5 mg Documented by: Hydrochlorothiazide (Hydrochlorothiazide 25 Mg Tablet) 25 mg PO DAILY [facility]; Protocol Last Admin: 12/13/21 09:18 Dose: 25 mg Documented by: Hydroxyzine HCl (Hydroxyzine Hcl 25 Mg Tablet) 25 mg PO BEDTIME PRN PRN Reason: Anxiety Last Admin: 12/13/21 04:08 Dose: 25 mg Documented by: Hydroxyzine HCl (Hydroxyzine Hcl 25 Mg Tablet) 25 mg PO BID PRN PRN Reason: Anxiety Last Admin: 12/02/21 16:59 Dose: 25 mg Documented by: Loperamide HCl (Loperamide Hcl 2 Mg Capsule) 4 mg PO Q4H PRN PRN Reason: Diarrhea Last Admin: 11/01/21 17:04 Dose: 4 mg Documented by: Magnesium Hydroxide (Milk Of Magnesia 30 Ml Oral.Susp) 30 ml PO DAILY PRN PRN Reason: Constipation Last Admin: 12/01/21 15:13 Dose: 30 ml Documented by: Mirtazapine (Mirtazapine 15 Mg Tablet) 15 mg PO BEDTIME [facility] Last Admin: 12/12/21 20:35 Dose: 15 mg Documented by: Olanzapine (Olanzapine 10 Mg Vial) 5 mg IM TID PRN PRN Reason: Psychosis Last Admin: 12/12/21 10:45 Dose: 5 mg Documented by: Potassium Chloride (Potassium Chloride Er 10 Meq Capsule.Er) 40 meq PO BID [facility] Last Admin: 12/13/21 09:18 Dose: 40 meq Documented by: Senna (Sennosides 8.6 Mg Tablet) 8.6 mg PO BEDTIME [facility] Last Admin: 12/12/21 20:35 Dose: 8.6 mg Documented by: Trazodone HCl (Trazodone Hcl 50 Mg Tablet) 50 mg PO BEDTIME PRN PRN Reason: Insomnia Last Admin: 12/13/21 04:08 Dose: 50 mg Documented by: Trolamine Salicylate/Aloe Vera (Trolamine Salicylate 10%/Aloe Cream 35.4 Gm) 1 appl TOPICAL TID PRN PRN Reason: neck pain Last Admin: 12/08/21 14:54 Dose: 1 appl Documented by: Allergies Allergies Allergy/AdvReac Type Severity Reaction Status Date / Time No Known Allergies Allergy Unverified 05/01/20 19:42 [No Known Allergies*] Assessment & Plan Assessment & Plan (1) Schizophrenia, paranoid, chronic with acute exacerbation: Status: Acute Code(s): F20.0 - Paranoid schizophrenia (2) Hypertension: Status: Acute Code(s): I10 - Essential (primary) hypertension Plan Elderly female with a long history of schizoaffective disorder bipolar type who was admitted into the facility for exacerbation of psychosis and mood lability. The patient is on Clozaril and apparently she has not been fully compliant with treatment. 11/21 slipped, hit head on 11/20, head CT reviewed and unremarkable Plan 1. The patient at this moment is on 2 psychotics, Clozaril and Invega Sustenna. Her last dose of Invega was less week. Apparently her psychosis has Worsened since she is poorly compliant with Clozaril p.o.. We discussed on rounds at length and legally we can add PRNs IM as per healthcare proxy. 2. Zyprexa 5 mg IM p.r.n. the patient refuses Clozaril. 3. Keep Clozaril 100 mg p.o. in the morning and 150 in the afternoon. 4. Increase Haldol up to 5 mg p.o. b.i.d. to target psychosis 12/13/2021: No changes to team's primary treatment plan I spent minutes with the patient and/or on the patient floor today, greater than?50% of which was spent counseling/coordinating care. Reason for contiued inpatient stay Substantial Risk for: inability to function
[2021-12-13] MEDS: cloZAPine 100 MG TABLET 200 MG PO (17:49)
[2021-12-13 21:55] VITALS: BP 123/58; PULSE 105; RESP 16; TEMP 37; O2SAT 98
[2021-12-13] MEDS: Acetaminophen 325 MG TABLET 650 MG PO (21:56)
[2021-12-13] MEDS: Docusate Sodium 100 MG CAPSULE PO (21:56)
[2021-12-13] MEDS: Sennosides 8.6 MG TABLET PO (21:56)
[2021-12-13] MEDS: Mirtazapine 15 MG TABLET PO (21:56)
[2021-12-13] MEDS: cloZAPine 100 MG TABLET 300 MG PO (22:03)
[2021-12-14 07:40] VITALS: BP 116/67; PULSE 89; RESP 14; TEMP 37.1; O2SAT 98
[2021-12-14] MEDS: Benztropine Mesylate 1 MG TABLET PO ×2 (09:03→20:31)
[2021-12-14] MEDS: HaloperidoL 5 MG TABLET PO ×2 (09:03→20:31)
[2021-12-14] MEDS: Desmopressin Acetate 0.2 MG TABLET PO ×2 (09:03→20:31)
[2021-12-14] MEDS: cloZAPine 100 MG TABLET PO (09:03)
[2021-12-14] MEDS: hydroCHLOROthiazide 25 MG TABLET PO (09:03)
[2021-12-14] MEDS: Apixaban 5 MG TABLET PO ×2 (09:03→20:31)
--- NOTE | 2021-12-14 15:35 | HO.PSYCHPN ---
Subjective Subjective Date of Service: 12/14/21 Reason For Visit: psychotic disorder Subjective Notes: Conditional Voluntary Interim History: The nursing staff reported the patient continues to have auditory hallucinations and paranoia but she is slightly better since last week. On interview, the patient was at her bedroom resting. She complains of auditory hallucinations. Mental Status Exam Mental Status Exam Patient Appearance: Appropriate Patient Orientation: Person and Situation Level of Consciousness: Awake Patient Behavior: Guarded, Cooperative and Passive Mood Description: Suspicious and Withdrawn Affect Description: Labile Patient Cognition Impaired: Yes Ability to Follow Directions: Good Speech Pattern: Clear Hallucinations: Auditory Delusions: Paranoid Ideation and Grandiose Thought Process: Incoherent Thought Content: positive for [place] Judgement: Fair Diagnostics Vital Signs (24Hr): Vital Signs - 24 hr 12/13/21 21:55 12/14/21 07:40 Temperature 98.6 F 98.8 F Pulse Rate 105 H 89 Respiratory Rate 16 14 Blood Pressure 123/58 L 116/67 Pulse Oximetry 98 98 BMI result Body Mass Index 27.5 Labs Results: 10/26/21 07:50 11/01/21 07:05 Imaging Radiology Impressions: ITS Impressions Head CT 10/08/21 15:16 IMPRESSION: No acute intracranial pathology. Head CT 10/09/21 13:54 IMPRESSION: No acute intracranial pathology. Pelvic/Transvag US 10/13/21 09:24 IMPRESSION: Abnormally thickened endometrium for a postmenopausal patient measuring 0.9 cm. 3 x 2.7 x 3.7 cm mass in the posterior cervix. This may represent a fibroid. Slightly thickened trabeculated bladder wall. Head CT 10/20/21 08:18 IMPRESSION: No acute intracranial pathology. This critical result was discussed with Dr. Chu at 8:30 hours on 10/20/2021. It was ascertained that the content and urgency of the report was understood at the time of direct communication. Head CT 11/20/21 19:29 IMPRESSION: No acute intracranial pathology. Medications Medications Current Medications Acetaminophen (Acetaminophen 325 Mg Tablet) 650 mg PO Q6H PRN PRN Reason: Headache/Pain Mild Scale (1-3) Last Admin: 12/13/21 21:56 Dose: 650 mg Documented by: Al Hydroxide/Mg Hydroxide (Magnesium Hydrox/Alum Hydrox 30 Ml Oral.Susp) 30 ml PO Q6H PRN PRN Reason: Heartburn/Nausea Apixaban (Apixaban 5 Mg Tablet) 5 mg PO BID [facility] Last Admin: 12/14/21 09:03 Dose: 5 mg Documented by: Benztropine Mesylate (Benztropine Mesylate 1 Mg Tablet) 1 mg PO BID [facility] Last Admin: 12/14/21 09:03 Dose: 1 mg Documented by: Bisacodyl (Bisacodyl 10 Mg Supp.Rect) 10 mg [place] DAILY PRN PRN Reason: Constipation Last Admin: 12/06/21 17:29 Dose: 10 mg Documented by: Clozapine (Clozapine 100 Mg Tablet) 100 mg PO DAILY [facility] Last Admin: 12/14/21 09:03 Dose: 100 mg Documented by: Clozapine (Clozapine 100 Mg Tablet) 200 mg PO DAILY@1700 [facility] Last Admin: 12/13/21 17:49 Dose: 200 mg Documented by: Clozapine (Clozapine 100 Mg Tablet) 300 mg PO BEDTIME [facility] Last Admin: 12/13/21 22:03 Dose: 300 mg Documented by: Desmopressin Acetate (Desmopressin Acetate 0.2 Mg Tablet) 0.2 mg PO BID [facility] Last Admin: 12/14/21 09:03 Dose: 0.2 mg Documented by: Docusate Sodium (Docusate Sodium 100 Mg Capsule) 100 mg PO BEDTIME [facility] Last Admin: 12/13/21 21:56 Dose: 100 mg Documented by: Haloperidol (Haloperidol 5 Mg Tablet) 5 mg PO BID [facility] Last Admin: 12/14/21 09:03 Dose: 5 mg Documented by: Hydrochlorothiazide (Hydrochlorothiazide 25 Mg Tablet) 25 mg PO DAILY [facility]; Protocol Last Admin: 12/14/21 09:03 Dose: 25 mg Documented by: Hydroxyzine HCl (Hydroxyzine Hcl 25 Mg Tablet) 25 mg PO BEDTIME PRN PRN Reason: Anxiety Last Admin: 12/13/21 04:08 Dose: 25 mg Documented by: Hydroxyzine HCl (Hydroxyzine Hcl 25 Mg Tablet) 25 mg PO BID PRN PRN Reason: Anxiety Last Admin: 12/02/21 16:59 Dose: 25 mg Documented by: Loperamide HCl (Loperamide Hcl 2 Mg Capsule) 4 mg PO Q4H PRN PRN Reason: Diarrhea Last Admin: 11/01/21 17:04 Dose: 4 mg Documented by: Magnesium Hydroxide (Milk Of Magnesia 30 Ml Oral.Susp) 30 ml PO DAILY PRN PRN Reason: Constipation Last Admin: 12/01/21 15:13 Dose: 30 ml Documented by: Mirtazapine (Mirtazapine 15 Mg Tablet) 15 mg PO BEDTIME [facility] Last Admin: 12/13/21 21:56 Dose: 15 mg Documented by: Olanzapine (Olanzapine 10 Mg Vial) 5 mg IM TID PRN PRN Reason: Psychosis Last Admin: 12/12/21 10:45 Dose: 5 mg Documented by: Potassium Chloride (Potassium Chloride Er 10 Meq Capsule.Er) 40 meq PO BID [facility] Last Admin: 12/14/21 09:03 Dose: 40 meq Documented by: Senna (Sennosides 8.6 Mg Tablet) 8.6 mg PO BEDTIME [facility] Last Admin: 12/13/21 21:56 Dose: 8.6 mg Documented by: Trazodone HCl (Trazodone Hcl 50 Mg Tablet) 50 mg PO BEDTIME PRN PRN Reason: Insomnia Last Admin: 12/13/21 21:56 Dose: 50 mg Documented by: Trolamine Salicylate/Aloe Vera (Trolamine Salicylate 10%/Aloe Cream 35.4 Gm) 1 appl TOPICAL TID PRN PRN Reason: neck pain Last Admin: 12/08/21 14:54 Dose: 1 appl Documented by: Allergies Allergies Allergy/AdvReac Type Severity Reaction Status Date / Time No Known Allergies Allergy Unverified 05/01/20 19:42 [No Known Allergies*] Assessment & Plan Assessment & Plan (1) Schizophrenia, paranoid, chronic with acute exacerbation: Status: Acute Code(s): F20.0 - Paranoid schizophrenia (2) Hypertension: Status: Acute Code(s): I10 - Essential (primary) hypertension Plan Elderly female with a long history of schizoaffective disorder bipolar type who was admitted into the facility for exacerbation of psychosis and mood lability. The patient is on Clozaril and apparently she has not been fully compliant with treatment. 11/21 slipped, hit head on 11/20, head CT reviewed and unremarkable Plan 1. The patient at this moment is on 2 psychotics, Clozaril and Invega Sustenna. Her last dose of Invega was less week. Apparently her psychosis has Worsened since she is poorly compliant with Clozaril p.o.. We discussed on rounds at length and legally we can add PRNs IM as per healthcare proxy. 2. Zyprexa 5 mg IM p.r.n. the patient refuses Clozaril. 3. Increase Clozaril since the patient does not have side effects. 4. Keep Haldol up to 5 mg p.o. b.i.d. to target psychosis I spent __20____ minutes with the patient and/or on the patient floor today, greater than?50% of which was spent counseling/coordinating care. Reason for contiued inpatient stay Substantial Risk for: inability to function, rapid decompensation and med/psych decompensation
[2021-12-14] MEDS: cloZAPine 100 MG TABLET 200 MG PO (17:38)
[2021-12-14] MEDS: Sennosides 8.6 MG TABLET PO (20:31)
[2021-12-14] MEDS: Mirtazapine 15 MG TABLET PO (20:31)
[2021-12-14] MEDS: cloZAPine 100 MG TABLET 300 MG PO (20:31)
[2021-12-14] MEDS: Docusate Sodium 100 MG CAPSULE PO (20:31)
[2021-12-15 06:00] VITALS: BP 114/52; PULSE 100; RESP 14; TEMP 36.5; O2SAT 96
--- NOTE | 2021-12-15 08:28 | HO.PSYCHPN ---
Subjective Subjective Date of Service: 12/15/21 Reason For Visit: psychotic disorder Subjective Notes: Conditional Voluntary Interim History: The nursing staff reported the patient was sleeping and she was awake in to take her medications after a lot of encouragement. The patient then later refused to engage. On interview, the patient reports that she is not doing fine still hearing voices But slightly better than yesterday. Mental Status Exam Mental Status Exam Patient Appearance: Appropriate Patient Orientation: Person and Situation Level of Consciousness: Awake Patient Behavior: Guarded, Passive and Suspicious Mood Description: Withdrawn Affect Description: Constricted Patient Cognition Impaired: Yes Ability to Follow Directions: Good Speech Pattern: Clear Hallucinations: Auditory Delusions: Paranoid Ideation Thought Process: Distracted and Evasive Thought Content: positive for [place] and positive for Poverty of Content Judgement: Fair Diagnostics Vital Signs (24Hr): BMI result Body Mass Index 27.5 Labs Results: 10/26/21 07:50 11/01/21 07:05 Imaging Radiology Impressions: ITS Impressions Head CT 10/08/21 15:16 IMPRESSION: No acute intracranial pathology. Head CT 10/09/21 13:54 IMPRESSION: No acute intracranial pathology. Pelvic/Transvag US 10/13/21 09:24 IMPRESSION: Abnormally thickened endometrium for a postmenopausal patient measuring 0.9 cm. 3 x 2.7 x 3.7 cm mass in the posterior cervix. This may represent a fibroid. Slightly thickened trabeculated bladder wall. Head CT 10/20/21 08:18 IMPRESSION: No acute intracranial pathology. This critical result was discussed with Dr. Chu at 8:30 hours on 10/20/2021. It was ascertained that the content and urgency of the report was understood at the time of direct communication. Head CT 11/20/21 19:29 IMPRESSION: No acute intracranial pathology. Medications Medications Current Medications Acetaminophen (Acetaminophen 325 Mg Tablet) 650 mg PO Q6H PRN PRN Reason: Headache/Pain Mild Scale (1-3) Last Admin: 12/13/21 21:56 Dose: 650 mg Documented by: Al Hydroxide/Mg Hydroxide (Magnesium Hydrox/Alum Hydrox 30 Ml Oral.Susp) 30 ml PO Q6H PRN PRN Reason: Heartburn/Nausea Apixaban (Apixaban 5 Mg Tablet) 5 mg PO BID [facility] Last Admin: 12/14/21 20:31 Dose: 5 mg Documented by: Benztropine Mesylate (Benztropine Mesylate 1 Mg Tablet) 1 mg PO BID [facility] Last Admin: 12/14/21 20:31 Dose: 1 mg Documented by: Bisacodyl (Bisacodyl 10 Mg Supp.Rect) 10 mg [place] DAILY PRN PRN Reason: Constipation Last Admin: 12/06/21 17:29 Dose: 10 mg Documented by: Clozapine (Clozapine 100 Mg Tablet) 100 mg PO DAILY [facility] Last Admin: 12/14/21 09:03 Dose: 100 mg Documented by: Clozapine (Clozapine 100 Mg Tablet) 200 mg PO DAILY@1700 [facility] Last Admin: 12/14/21 17:38 Dose: 200 mg Documented by: Clozapine (Clozapine 100 Mg Tablet) 300 mg PO BEDTIME [facility] Last Admin: 12/14/21 20:31 Dose: 300 mg Documented by: Desmopressin Acetate (Desmopressin Acetate 0.2 Mg Tablet) 0.2 mg PO BID [facility] Last Admin: 12/14/21 20:31 Dose: 0.2 mg Documented by: Docusate Sodium (Docusate Sodium 100 Mg Capsule) 100 mg PO BEDTIME [facility] Last Admin: 12/14/21 20:31 Dose: 100 mg Documented by: Haloperidol (Haloperidol 5 Mg Tablet) 5 mg PO BID [facility] Last Admin: 12/14/21 20:31 Dose: 5 mg Documented by: Hydrochlorothiazide (Hydrochlorothiazide 25 Mg Tablet) 25 mg PO DAILY [facility]; Protocol Last Admin: 12/14/21 09:03 Dose: 25 mg Documented by: Hydroxyzine HCl (Hydroxyzine Hcl 25 Mg Tablet) 25 mg PO BEDTIME PRN PRN Reason: Anxiety Last Admin: 12/13/21 04:08 Dose: 25 mg Documented by: Hydroxyzine HCl (Hydroxyzine Hcl 25 Mg Tablet) 25 mg PO BID PRN PRN Reason: Anxiety Last Admin: 12/02/21 16:59 Dose: 25 mg Documented by: Loperamide HCl (Loperamide Hcl 2 Mg Capsule) 4 mg PO Q4H PRN PRN Reason: Diarrhea Last Admin: 11/01/21 17:04 Dose: 4 mg Documented by: Magnesium Hydroxide (Milk Of Magnesia 30 Ml Oral.Susp) 30 ml PO DAILY PRN PRN Reason: Constipation Last Admin: 12/01/21 15:13 Dose: 30 ml Documented by: Mirtazapine (Mirtazapine 15 Mg Tablet) 15 mg PO BEDTIME [facility] Last Admin: 12/14/21 20:31 Dose: 15 mg Documented by: Olanzapine (Olanzapine 10 Mg Vial) 5 mg IM TID PRN PRN Reason: Psychosis Last Admin: 12/12/21 10:45 Dose: 5 mg Documented by: Potassium Chloride (Potassium Chloride Er 10 Meq Capsule.Er) 40 meq PO BID [facility] Last Admin: 12/14/21 20:31 Dose: 40 meq Documented by: Senna (Sennosides 8.6 Mg Tablet) 8.6 mg PO BEDTIME [facility] Last Admin: 12/14/21 20:31 Dose: 8.6 mg Documented by: Trazodone HCl (Trazodone Hcl 50 Mg Tablet) 50 mg PO BEDTIME PRN PRN Reason: Insomnia Last Admin: 12/13/21 21:56 Dose: 50 mg Documented by: Trolamine Salicylate/Aloe Vera (Trolamine Salicylate 10%/Aloe Cream 35.4 Gm) 1 appl TOPICAL TID PRN PRN Reason: neck pain Last Admin: 12/08/21 14:54 Dose: 1 appl Documented by: Allergies Allergies Allergy/AdvReac Type Severity Reaction Status Date / Time No Known Allergies Allergy Unverified 05/01/20 19:42 [No Known Allergies*] Assessment & Plan Assessment & Plan (1) Schizophrenia, paranoid, chronic with acute exacerbation: Status: Acute Code(s): F20.0 - Paranoid schizophrenia (2) Hypertension: Status: Acute Code(s): I10 - Essential (primary) hypertension Plan Elderly female with a long history of schizoaffective disorder bipolar type who was admitted into the facility for exacerbation of psychosis and mood lability. The patient is on Clozaril and apparently she has not been fully compliant with treatment. 11/21 slipped, hit head on 11/20, head CT reviewed and unremarkable Plan 1. The patient at this moment is on 2 psychotics, Clozaril and Invega Sustenna. Her last dose of Invega was less week. Apparently her psychosis has Worsened since she is poorly compliant with Clozaril p.o.. We discussed on rounds at length and legally we can add PRNs IM as per healthcare proxy. 2. Zyprexa 5 mg IM p.r.n. the patient refuses Clozaril. 3. Increase Clozaril since the patient does not have side effects. 4. Keep Haldol up to 5 mg p.o. b.i.d. to target psychosis I spent ___20___ minutes with the patient and/or on the patient floor today, greater than?50% of which was spent counseling/coordinating care. Reason for contiued inpatient stay Substantial Risk for: inability to function, rapid decompensation and med/psych decompensation
[2021-12-15 08:50] LABS: Neut%MD 72.7 %; Neutrophils Absolute Auto 4.9 x10*3/uL (2.0-8.3); WBCANC 6.8 X10*3/uL
[2021-12-15] MEDS: Benztropine Mesylate 1 MG TABLET PO ×2 (08:55→20:18)
[2021-12-15] MEDS: cloZAPine 100 MG TABLET PO (08:55)
[2021-12-15] MEDS: hydroCHLOROthiazide 25 MG TABLET PO (08:55)
[2021-12-15] MEDS: HaloperidoL 5 MG TABLET PO ×2 (08:55→20:19)
[2021-12-15] MEDS: Desmopressin Acetate 0.2 MG TABLET PO ×2 (08:55→20:19)
[2021-12-15] MEDS: Apixaban 5 MG TABLET PO ×2 (08:56→20:18)
[2021-12-15] MEDS: cloZAPine 100 MG TABLET 200 MG PO (16:17)
[2021-12-15] MEDS: Milk of Magnesia 30 ML ORAL.SUSP PO (17:29)
[2021-12-15] MEDS: cloZAPine 100 MG TABLET 300 MG PO (20:18)
[2021-12-15] MEDS: Mirtazapine 15 MG TABLET PO (20:19)
[2021-12-15] MEDS: Docusate Sodium 100 MG CAPSULE PO (20:19)
[2021-12-15] MEDS: Sennosides 8.6 MG TABLET PO (20:20)
[2021-12-15 21:42] VITALS: BP 110/54; PULSE 93; RESP 17; TEMP 36.4; O2SAT 97
[2021-12-16] MEDS: bisacodyL 10 MG SUPP.RECT PR (04:01)
[2021-12-16 10:52] VITALS: BP 109/57; PULSE 83; RESP 14; TEMP 36.9; O2SAT 94
[2021-12-16] MEDS: Benztropine Mesylate 1 MG TABLET PO ×2 (10:56→22:16)
[2021-12-16] MEDS: Apixaban 5 MG TABLET PO (10:56)
[2021-12-16] MEDS: HaloperidoL 5 MG TABLET PO ×2 (10:56→22:10)
[2021-12-16] MEDS: hydroCHLOROthiazide 25 MG TABLET PO (10:56)
[2021-12-16] MEDS: Desmopressin Acetate 0.2 MG TABLET PO (10:56)
[2021-12-16] MEDS: Magnesium Citrate 300 ML SOLUTION PO (10:56)
[2021-12-16] MEDS: cloZAPine 100 MG TABLET PO (10:56)
[2021-12-16] MEDS: cloZAPine 100 MG TABLET 200 MG PO (17:47)
[2021-12-16 18:00] VITALS: BP 108/58; PULSE 97; RESP 16; TEMP 36.4; O2SAT 96
[2021-12-16] MEDS: Sodium Phosphate,Mono-Dibasic 133 ML ENEMA PR (18:10)
[2021-12-16] MEDS: cloZAPine 100 MG TABLET 300 MG PO (22:15)
[2021-12-16] MEDS: Sennosides 8.6 MG TABLET PO (22:16)
[2021-12-16] MEDS: Mirtazapine 15 MG TABLET PO (22:17)
[2021-12-16] MEDS: Docusate Sodium 100 MG CAPSULE PO ×2 (22:18)
[2021-12-17 06:00] VITALS: BP 91/50; PULSE 95; RESP 14; TEMP 36.8
--- NOTE | 2021-12-17 06:23 | PC.NURSE ---
Pt. up around 0500. Incontinent of large amount of urine. While staff cleaning room and pt. she began experiencing leakage of liquid stool. Pt. was assisted to the toilet. Impacted stool visible. Anus dilated. Pt. very uncomfortable but unable to evacuate. Nursing garment supervisor and hospitalist, Dr. Aguilar, notified. [facility] [place] sent to attempt noninvasive disimpaction of visible stool. Pt. remained in bed on her side. Staff by pt. side to provide supportive care. Pt. able to push stool while the clinical coordinator removed as much as possible. Pt. reported relief. She is restful and appears to be sleeping at this time.
--- NOTE | 2021-12-17 08:15 | HO.PSYCHPN ---
Subjective Subjective Date of Service: 12/17/21 Reason For Visit: psychotic disorder Subjective Notes: Conditional Voluntary Interim History: The nursing staff reported the patient complained of constipation. We order yesterday maxi trait, senna, Colace and others. Eventually, she was disimpacted and she had a huge bowel movement. I ordered blood work to check his basic metabolic function to see the possibility of lithium. On interview, the patient reports that she hears still voices. Bloodwork came back with no evidence of metabolic syndrome. Mental Status Exam Mental Status Exam Patient Appearance: Appropriate Patient Orientation: Person and Situation Level of Consciousness: Awake Patient Behavior: Guarded and Suspicious Mood Description: Withdrawn Affect Description: Labile Patient Cognition Impaired: Yes Ability to Follow Directions: Good Speech Pattern: Clear Hallucinations: Auditory Delusions: Paranoid Ideation and Grandiose Thought Process: Distracted Thought Content: positive for [place] and positive for Poverty of Content Judgement: Fair Diagnostics Vital Signs (24Hr): Vital Signs - 24 hr 12/16/21 10:52 12/16/21 18:00 Temperature 98.5 F 97.6 F Pulse Rate 83 97 Respiratory Rate 14 16 Blood Pressure 109/57 L 108/58 L Pulse Oximetry 94 96 BMI result Body Mass Index 27.5 Labs Results: 10/26/21 07:50 12/17/21 08:11 Labs: Laboratory Results - last 48 hr 12/15/21 08:42 Absolute Neuts (auto) 4.9 Imaging Radiology Impressions: ITS Impressions Head CT 10/08/21 15:16 IMPRESSION: No acute intracranial pathology. Head CT 10/09/21 13:54 IMPRESSION: No acute intracranial pathology. Pelvic/Transvag US 10/13/21 09:24 IMPRESSION: Abnormally thickened endometrium for a postmenopausal patient measuring 0.9 cm. 3 x 2.7 x 3.7 cm mass in the posterior cervix. This may represent a fibroid. Slightly thickened trabeculated bladder wall. Head CT 10/20/21 08:18 IMPRESSION: No acute intracranial pathology. This critical result was discussed with Dr. Chu at 8:30 hours on 10/20/2021. It was ascertained that the content and urgency of the report was understood at the time of direct communication. Head CT 11/20/21 19:29 IMPRESSION: No acute intracranial pathology. Medications Medications Current Medications Acetaminophen (Acetaminophen 325 Mg Tablet) 650 mg PO Q6H PRN PRN Reason: Headache/Pain Mild Scale (1-3) Last Admin: 12/13/21 21:56 Dose: 650 mg Documented by: Al Hydroxide/Mg Hydroxide (Magnesium Hydrox/Alum Hydrox 30 Ml Oral.Susp) 30 ml PO Q6H PRN PRN Reason: Heartburn/Nausea Apixaban (Apixaban 5 Mg Tablet) 5 mg PO BID [facility] Last Admin: 12/16/21 22:19 Dose: Not Given Documented by: Benztropine Mesylate (Benztropine Mesylate 1 Mg Tablet) 1 mg PO BID [facility] Last Admin: 12/16/21 22:16 Dose: 1 mg Documented by: Bisacodyl (Bisacodyl 10 Mg Supp.Rect) 10 mg [place] DAILY PRN PRN Reason: Constipation Last Admin: 12/16/21 04:01 Dose: 10 mg Documented by: Clozapine (Clozapine 100 Mg Tablet) 100 mg PO DAILY [facility] Last Admin: 12/16/21 10:56 Dose: 100 mg Documented by: Clozapine (Clozapine 100 Mg Tablet) 200 mg PO DAILY@1700 [facility] Last Admin: 12/16/21 17:47 Dose: 200 mg Documented by: Clozapine (Clozapine 100 Mg Tablet) 300 mg PO BEDTIME [facility] Last Admin: 12/16/21 22:15 Dose: 300 mg Documented by: Desmopressin Acetate (Desmopressin Acetate 0.2 Mg Tablet) 0.2 mg PO BID [facility] Last Admin: 12/16/21 22:19 Dose: Not Given Documented by: Docusate Sodium (Docusate Sodium 100 Mg Capsule) 100 mg PO BEDTIME [facility] Last Admin: 12/16/21 22:18 Dose: 100 mg Documented by: Docusate Sodium (Docusate Sodium 100 Mg Capsule) 100 mg PO BID [facility] Last Admin: 12/16/21 22:18 Dose: 100 mg Documented by: Haloperidol (Haloperidol 5 Mg Tablet) 5 mg PO BID [facility] Last Admin: 12/16/21 22:10 Dose: 5 mg Documented by: Hydrochlorothiazide (Hydrochlorothiazide 25 Mg Tablet) 25 mg PO DAILY [facility]; Protocol Last Admin: 12/16/21 10:56 Dose: 25 mg Documented by: Hydroxyzine HCl (Hydroxyzine Hcl 25 Mg Tablet) 25 mg PO BEDTIME PRN PRN Reason: Anxiety Last Admin: 12/13/21 04:08 Dose: 25 mg Documented by: Hydroxyzine HCl (Hydroxyzine Hcl 25 Mg Tablet) 25 mg PO BID PRN PRN Reason: Anxiety Last Admin: 12/02/21 16:59 Dose: 25 mg Documented by: Loperamide HCl (Loperamide Hcl 2 Mg Capsule) 4 mg PO Q4H PRN PRN Reason: Diarrhea Last Admin: 11/01/21 17:04 Dose: 4 mg Documented by: Magnesium Hydroxide (Milk Of Magnesia 30 Ml Oral.Susp) 30 ml PO DAILY PRN PRN Reason: Constipation Last Admin: 12/15/21 17:29 Dose: 30 ml Documented by: Mirtazapine (Mirtazapine 15 Mg Tablet) 15 mg PO BEDTIME [facility] Last Admin: 12/16/21 22:17 Dose: 15 mg Documented by: Olanzapine (Olanzapine 10 Mg Vial) 5 mg IM TID PRN PRN Reason: Psychosis Last Admin: 12/12/21 10:45 Dose: 5 mg Documented by: Potassium Chloride (Potassium Chloride Er 10 Meq Capsule.Er) 40 meq PO BID [facility] Last Admin: 12/16/21 22:19 Dose: Not Given Documented by: Senna (Sennosides 8.6 Mg Tablet) 8.6 mg PO BEDTIME [facility] Last Admin: 12/16/21 22:16 Dose: 8.6 mg Documented by: Senna (Sennosides 8.6 Mg Tablet) 8.6 mg PO BEDTIME [facility] Last Admin: 12/16/21 22:20 Dose: Not Given Documented by: Trazodone HCl (Trazodone Hcl 50 Mg Tablet) 50 mg PO BEDTIME PRN PRN Reason: Insomnia Last Admin: 12/13/21 21:56 Dose: 50 mg Documented by: Trolamine Salicylate/Aloe Vera (Trolamine Salicylate 10%/Aloe Cream 35.4 Gm) 1 appl TOPICAL TID PRN PRN Reason: neck pain Last Admin: 12/08/21 14:54 Dose: 1 appl Documented by: Allergies Allergies Allergy/AdvReac Type Severity Reaction Status Date / Time No Known Allergies Allergy Unverified 05/01/20 19:42 [No Known Allergies*] Assessment & Plan Assessment & Plan (1) Schizophrenia, paranoid, chronic with acute exacerbation: Status: Acute Code(s): F20.0 - Paranoid schizophrenia (2) Hypertension: Status: Acute Code(s): I10 - Essential (primary) hypertension Plan Elderly female with a long history of schizoaffective disorder bipolar type who was admitted into the facility for exacerbation of psychosis and mood lability. The patient is on Clozaril and apparently she has not been fully compliant with treatment. 11/21 slipped, hit head on 11/20, head CT reviewed and unremarkable Plan 1. The patient at this moment is on 2 psychotics, Clozaril and Invega Sustenna. Her last dose of Invega was less week. Apparently her psychosis has Worsened since she is poorly compliant with Clozaril p.o.. We discussed on rounds at length and legally we can add PRNs IM as per healthcare proxy. 2. Zyprexa 5 mg IM p.r.n. the patient refuses Clozaril. 3. Increase Clozaril since the patient does not have side effects. 4. Keep Haldol up to 5 mg p.o. b.i.d. to target psychosis 5. Add [place] 150 mg qhs. I spent __20____ minutes with the patient and/or on the patient floor today, greater than?50% of which was spent counseling/coordinating care. Reason for contiued inpatient stay Substantial Risk for: inability to function, rapid decompensation and med/psych decompensation
[2021-12-17 08:33] LABS: Estimated Average Glucose 88 mg/dL; Hemoglobin A1c % 4.7 %
[2021-12-17 08:35] LABS: Anion Gap 11 (12-20); Blood Urea Nitrogen 16 mg/dL (9-16); Carbon Dioxide 28 mmol/L (22-29); Chloride 111 mmol/L (96-108); Estimated Glomerular Filt Rate > 60; Glucose Random 104 mg/dL (60-115); Potassium 3.9 mmol/L (3.3-5.1); Sodium 146 mmol/L (135-145)
[2021-12-17 08:54] LABS: Thyroid Stimulating Hormone 0.83 uIU/mL (0.32-4.0)
[2021-12-17 09:05] LABS: Calcium 11.2 mg/dL (8.4-10.2)
[2021-12-17] MEDS: cloZAPine 100 MG TABLET PO (12:36)
[2021-12-17] MEDS: Docusate Sodium 100 MG CAPSULE PO ×3 (12:37→20:32)
[2021-12-17] MEDS: Benztropine Mesylate 1 MG TABLET PO ×2 (12:37→20:34)
[2021-12-17] MEDS: HaloperidoL 5 MG TABLET PO ×2 (12:37→20:33)
[2021-12-17] MEDS: hydroCHLOROthiazide 25 MG TABLET PO (12:37)
[2021-12-17] MEDS: Desmopressin Acetate 0.2 MG TABLET PO (12:38)
[2021-12-17] MEDS: Apixaban 5 MG TABLET PO (12:39)
[2021-12-17 18:00] VITALS: RESP 20
[2021-12-17] MEDS: cloZAPine 100 MG TABLET 200 MG PO (18:26)
[2021-12-17] MEDS: cloZAPine 100 MG TABLET 300 MG PO (20:31)
[2021-12-17] MEDS: Lithium Carbonate 300 MG TABLET 150 MG PO (20:32)
[2021-12-17] MEDS: Mirtazapine 15 MG TABLET PO (20:33)
[2021-12-18 06:00] VITALS: BP 107/59; PULSE 88; RESP 14; TEMP 36.6; O2SAT 95
[2021-12-18] MEDS: Benztropine Mesylate 1 MG TABLET PO ×2 (11:48→20:37)
[2021-12-18] MEDS: HaloperidoL 5 MG TABLET PO ×2 (11:48→20:37)
[2021-12-18] MEDS: Desmopressin Acetate 0.2 MG TABLET PO ×2 (11:48→20:37)
[2021-12-18] MEDS: cloZAPine 100 MG TABLET PO (11:49)
[2021-12-18] MEDS: hydroCHLOROthiazide 25 MG TABLET PO (11:49)
[2021-12-18] MEDS: Apixaban 5 MG TABLET PO ×2 (11:49→20:37)
[2021-12-18] MEDS: Docusate Sodium 100 MG CAPSULE PO ×4 (11:50→20:37)
[2021-12-18 13:01] LABS: Appearance Urine CLEAR; Color Urine YELLOW; Glucose Urine UA NEG (NEG); Leukocyte Esterase Urine NEG (NEG); Nitrite Urine NEG (NEG); PH 6.5 (5.0-8.0); Specific Gravity - Urine <= 1.005 (1.005-1.025); Urine Blood NEG (NEG); Urine Ketones NEG (NEG); Urine Protein NEG (NEG-TRACE)
--- NOTE | 2021-12-18 14:52 | HO.PSYCHPN ---
Subjective Subjective Date of Service: 12/18/21 Reason For Visit: psychotic disorder Subjective Notes: Conditional Voluntary Interim History: The nursing staff reported the patient slept all day long. Also she slept well at night. She was incontinent of urine and she has been compliant with medications with a lot of encouragement. On interview the patient denies new symptoms she still hearing voices, I explained her that I start her on a low dose of lithium. Mental Status Exam Mental Status Exam Patient Appearance: Disheveled Patient Orientation: Person and Situation Level of Consciousness: Awake Patient Behavior: Guarded and Suspicious Mood Description: Withdrawn Affect Description: Labile Patient Cognition Impaired: Yes Ability to Follow Directions: Good Speech Pattern: Monotone Hallucinations: Auditory Delusions: Paranoid Ideation and Ideas of Reference Thought Process: Illogical Thought Content: positive for Obsessional Thoughts Judgement: Fair Diagnostics Vital Signs (24Hr): Vital Signs - 24 hr 12/17/21 18:00 12/18/21 06:00 Temperature 97.9 F Pulse Rate 88 Respiratory Rate 20 14 Blood Pressure 107/59 L Pulse Oximetry 95 BMI result Body Mass Index 27.5 Labs Results: 10/26/21 07:50 12/17/21 08:11 Labs: Laboratory Results - last 48 hr 12/17/21 12/17/21 12/18/21 08:11 08:11 12:30 Sodium 146 H Potassium 3.9 Chloride 111 H Carbon Dioxide 28 Anion Gap 11 L BUN 16 D Creatinine 0.81 Estim Creat Clear Calc 61.0 Estimated GFR > 60 Random Glucose 104 Estimat Average Glucose 88 Hemoglobin A1c % 4.7 Calcium 11.2 H D TSH 0.83 Urine Color YELLOW Urine Appearance CLEAR Urine pH 6.5 Ur Specific [place] <= 1.005 Urine Protein NEG Urine Glucose (UA) NEG Urine Ketones NEG Urine Blood NEG Urine Nitrite NEG Ur Leukocyte Esterase NEG Imaging Radiology Impressions: ITS Impressions Head CT 10/08/21 15:16 IMPRESSION: No acute intracranial pathology. Head CT 10/09/21 13:54 IMPRESSION: No acute intracranial pathology. Pelvic/Transvag US 10/13/21 09:24 IMPRESSION: Abnormally thickened endometrium for a postmenopausal patient measuring 0.9 cm. 3 x 2.7 x 3.7 cm mass in the posterior cervix. This may represent a fibroid. Slightly thickened trabeculated bladder wall. Head CT 10/20/21 08:18 IMPRESSION: No acute intracranial pathology. This critical result was discussed with Dr. Chu at 8:30 hours on 10/20/2021. It was ascertained that the content and urgency of the report was understood at the time of direct communication. Head CT 11/20/21 19:29 IMPRESSION: No acute intracranial pathology. Medications Medications Current Medications Acetaminophen (Acetaminophen 325 Mg Tablet) 650 mg PO Q6H PRN PRN Reason: Headache/Pain Mild Scale (1-3) Last Admin: 12/13/21 21:56 Dose: 650 mg Documented by: Al Hydroxide/Mg Hydroxide (Magnesium Hydrox/Alum Hydrox 30 Ml Oral.Susp) 30 ml PO Q6H PRN PRN Reason: Heartburn/Nausea Apixaban (Apixaban 5 Mg Tablet) 5 mg PO BID [facility] Last Admin: 12/18/21 11:49 Dose: 5 mg Documented by: Benztropine Mesylate (Benztropine Mesylate 1 Mg Tablet) 1 mg PO BID [facility] Last Admin: 12/18/21 11:48 Dose: 1 mg Documented by: Bisacodyl (Bisacodyl 10 Mg Supp.Rect) 10 mg [place] DAILY PRN PRN Reason: Constipation Last Admin: 12/16/21 04:01 Dose: 10 mg Documented by: Clozapine (Clozapine 100 Mg Tablet) 100 mg PO DAILY [facility] Last Admin: 12/18/21 11:49 Dose: 100 mg Documented by: Clozapine (Clozapine 100 Mg Tablet) 200 mg PO DAILY@1700 [facility] Last Admin: 12/17/21 18:26 Dose: 200 mg Documented by: Clozapine (Clozapine 100 Mg Tablet) 300 mg PO BEDTIME [facility] Last Admin: 12/17/21 20:31 Dose: 300 mg Documented by: Desmopressin Acetate (Desmopressin Acetate 0.2 Mg Tablet) 0.2 mg PO BID [facility] Last Admin: 12/18/21 11:48 Dose: 0.2 mg Documented by: Docusate Sodium (Docusate Sodium 100 Mg Capsule) 100 mg PO BEDTIME [facility] Last Admin: 12/18/21 11:50 Dose: 100 mg Documented by: Docusate Sodium (Docusate Sodium 100 Mg Capsule) 100 mg PO BID [facility] Last Admin: 12/18/21 11:52 Dose: 100 mg Documented by: Haloperidol (Haloperidol 5 Mg Tablet) 5 mg PO BID [facility] Last Admin: 12/18/21 11:48 Dose: 5 mg Documented by: Hydrochlorothiazide (Hydrochlorothiazide 25 Mg Tablet) 25 mg PO DAILY [facility]; Protocol Last Admin: 12/18/21 11:49 Dose: 25 mg Documented by: Hydroxyzine HCl (Hydroxyzine Hcl 25 Mg Tablet) 25 mg PO BEDTIME PRN PRN Reason: Anxiety Last Admin: 12/13/21 04:08 Dose: 25 mg Documented by: Hydroxyzine HCl (Hydroxyzine Hcl 25 Mg Tablet) 25 mg PO BID PRN PRN Reason: Anxiety Last Admin: 12/02/21 16:59 Dose: 25 mg Documented by: [place] Carbonate ([place] Carbonate 300 Mg Tablet) 150 mg PO BEDTIME [facility] Last Admin: 12/17/21 20:32 Dose: 150 mg Documented by: Loperamide HCl (Loperamide Hcl 2 Mg Capsule) 4 mg PO Q4H PRN PRN Reason: Diarrhea Last Admin: 11/01/21 17:04 Dose: 4 mg Documented by: Magnesium Hydroxide (Milk Of Magnesia 30 Ml Oral.Susp) 30 ml PO DAILY PRN PRN Reason: Constipation Last Admin: 12/15/21 17:29 Dose: 30 ml Documented by: Mirtazapine (Mirtazapine 15 Mg Tablet) 15 mg PO BEDTIME [facility] Last Admin: 12/17/21 20:33 Dose: 15 mg Documented by: Olanzapine (Olanzapine 10 Mg Vial) 5 mg IM TID PRN PRN Reason: Psychosis Last Admin: 12/12/21 10:45 Dose: 5 mg Documented by: Potassium Chloride (Potassium Chloride Er 10 Meq Capsule.Er) 40 meq PO BID [facility] Last Admin: 12/18/21 12:01 Dose: 40 meq Documented by: Senna (Sennosides 8.6 Mg Tablet) 8.6 mg PO BEDTIME [facility] Last Admin: 12/17/21 20:38 Dose: Not Given Documented by: Senna (Sennosides 8.6 Mg Tablet) 8.6 mg PO BEDTIME [facility] Last Admin: 12/17/21 20:39 Dose: Not Given Documented by: Trazodone HCl (Trazodone Hcl 50 Mg Tablet) 50 mg PO BEDTIME PRN PRN Reason: Insomnia Last Admin: 12/13/21 21:56 Dose: 50 mg Documented by: Trolamine Salicylate/Aloe Vera (Trolamine Salicylate 10%/Aloe Cream 35.4 Gm) 1 appl TOPICAL TID PRN PRN Reason: neck pain Last Admin: 12/08/21 14:54 Dose: 1 appl Documented by: Allergies Allergies Allergy/AdvReac Type Severity Reaction Status Date / Time No Known Allergies Allergy Unverified 05/01/20 19:42 [No Known Allergies*] Assessment & Plan Assessment & Plan (1) Schizophrenia, paranoid, chronic with acute exacerbation: Status: Acute Code(s): F20.0 - Paranoid schizophrenia (2) Hypertension: Status: Acute Code(s): I10 - Essential (primary) hypertension Plan Elderly female with a long history of schizoaffective disorder bipolar type who was admitted into the facility for exacerbation of psychosis and mood lability. The patient is on Clozaril and apparently she has not been fully compliant with treatment. 11/21 slipped, hit head on 11/20, head CT reviewed and unremarkable Plan 1. The patient at this moment is on 2 psychotics, Clozaril and Invega Sustenna. Her last dose of Invega was less week. Apparently her psychosis has Worsened since she is poorly compliant with Clozaril p.o.. We discussed on rounds at length and legally we can add PRNs IM as per healthcare proxy. 2. Zyprexa 5 mg IM p.r.n. the patient refuses Clozaril. 3. Increase Clozaril since the patient does not have side effects. 4. Keep Haldol up to 5 mg p.o. b.i.d. to target psychosis 5. Add [place] 150 mg qhs. I spent ___20___ minutes with the patient and/or on the patient floor today, greater than?50% of which was spent counseling/coordinating care. Reason for contiued inpatient stay Substantial Risk for: inability to function, rapid decompensation and med/psych decompensation
[2021-12-18] MEDS: cloZAPine 100 MG TABLET 200 MG PO (17:20)
[2021-12-18 18:00] VITALS: BP 129/59; PULSE 95; RESP 18; TEMP 36.2; O2SAT 95
[2021-12-18] MEDS: cloZAPine 100 MG TABLET 300 MG PO (20:36)
[2021-12-18] MEDS: Sennosides 8.6 MG TABLET PO (20:37)
[2021-12-18] MEDS: Lithium Carbonate 300 MG TABLET 150 MG PO (20:38)
[2021-12-18] MEDS: Mirtazapine 15 MG TABLET PO (20:40)
[2021-12-19] MEDS: traZODone HCL 50 MG TABLET PO (01:14)
[2021-12-19 11:00] VITALS: BP 124/66; PULSE 111; RESP 16; TEMP 36.7; O2SAT 95
[2021-12-19] MEDS: OLANZapine 10 MG VIAL 5 MG IM (13:36)
[2021-12-19] MEDS: Milk of Magnesia 30 ML ORAL.SUSP PO (14:32)
[2021-12-19] MEDS: cloZAPine 100 MG TABLET 200 MG PO (17:59)
[2021-12-19 18:00] VITALS: BP 120/58; PULSE 92; RESP 18; TEMP 36.1; O2SAT 97
[2021-12-19] MEDS: Benztropine Mesylate 1 MG TABLET PO (20:39)
[2021-12-19] MEDS: Desmopressin Acetate 0.2 MG TABLET PO (20:40)
[2021-12-19] MEDS: cloZAPine 100 MG TABLET 300 MG PO (20:40)
[2021-12-19] MEDS: Mirtazapine 15 MG TABLET PO (20:40)
[2021-12-19] MEDS: Sennosides 8.6 MG TABLET PO (20:40)
[2021-12-19] MEDS: Lithium Carbonate 300 MG TABLET 150 MG PO (20:40)
[2021-12-19] MEDS: Docusate Sodium 100 MG CAPSULE PO (20:41)
[2021-12-19] MEDS: Apixaban 5 MG TABLET PO (20:41)
[2021-12-19] MEDS: HaloperidoL 5 MG TABLET PO (20:41)
--- NOTE | 2021-12-19 22:06 | P.PNPSI_ITS ---
Subjective Subjective Date of Service: 12/19/21 Reason For Visit: psychotic disorder Interim History: Patient is seen and discussed. She is heard intermittently yelling in the day room. She is irritable. Frustrated. Easily agitated. Calms some with 1:1 support. She is seen coloring. When asked why she is yelling she yells saying she wants to get out of the hospital. She takes her medications with coaxing. Denies SI Review of Systems Review of Systems unremarkable Yes all other systems are reviewed and are negative, Unobtainable due to mental condition and Unobtainable due to mental status Mental Status Exam Mental Status Exam Patient Appearance: Disheveled Patient Orientation: Person and Situation Level of Consciousness: Awake Patient Behavior: Guarded and Suspicious Mood Description: Withdrawn and Angry Affect Description: Labile and Angry Patient Cognition Impaired: Yes Ability to Follow Directions: Good Speech Pattern: Clear, Loud, Includes Profanity and Excited Memory Description: Intact Hallucinations: Auditory Delusions: Paranoid Ideation Thought Process: Distracted and Rumination Thought Content: positive for Perseveration Abnormal Motor Activity Signs and Symptoms: Agitation, Hyperactivity and Restlessness Judgement: Poor Diagnostics Vital Signs (24Hr): Vital Signs - 24 hr 12/19/21 11:00 Temperature 98.1 F Pulse Rate 111 H Respiratory Rate 16 Blood Pressure 124/66 Pulse Oximetry 95 BMI result Body Mass Index 27.5 Labs Results: 10/26/21 07:50 12/17/21 08:11 Labs: Laboratory Results - last 48 hr 12/18/21 12:30 Urine Color YELLOW Urine Appearance CLEAR Urine pH 6.5 Ur Specific [place] <= 1.005 Urine Protein NEG Urine Glucose (UA) NEG Urine Ketones NEG Urine Blood NEG Urine Nitrite NEG Ur Leukocyte Esterase NEG Imaging Radiology Impressions: ITS Impressions Head CT 10/08/21 15:16 IMPRESSION: No acute intracranial pathology. Head CT 10/09/21 13:54 IMPRESSION: No acute intracranial pathology. Pelvic/Transvag US 10/13/21 09:24 IMPRESSION: Abnormally thickened endometrium for a postmenopausal patient measuring 0.9 cm. 3 x 2.7 x 3.7 cm mass in the posterior cervix. This may represent a fibroid. Slightly thickened trabeculated bladder wall. Head CT 10/20/21 08:18 IMPRESSION: No acute intracranial pathology. This critical result was discussed with Dr. Chu at 8:30 hours on 10/20/2021. It was ascertained that the content and urgency of the report was understood at the time of direct communication. Head CT 11/20/21 19:29 IMPRESSION: No acute intracranial pathology. Medications Medications Current Medications Acetaminophen (Acetaminophen 325 Mg Tablet) 650 mg PO Q6H PRN PRN Reason: Headache/Pain Mild Scale (1-3) Last Admin: 12/13/21 21:56 Dose: 650 mg Documented by: Al Hydroxide/Mg Hydroxide (Magnesium Hydrox/Alum Hydrox 30 Ml Oral.Susp) 30 ml PO Q6H PRN PRN Reason: Heartburn/Nausea Apixaban (Apixaban 5 Mg Tablet) 5 mg PO BID [facility] Last Admin: 12/19/21 20:41 Dose: 5 mg Documented by: Benztropine Mesylate (Benztropine Mesylate 1 Mg Tablet) 1 mg PO BID [facility] Last Admin: 12/19/21 20:39 Dose: 1 mg Documented by: Bisacodyl (Bisacodyl 10 Mg Supp.Rect) 10 mg [place] DAILY PRN PRN Reason: Constipation Last Admin: 12/16/21 04:01 Dose: 10 mg Documented by: Clozapine (Clozapine 100 Mg Tablet) 100 mg PO DAILY [facility] Last Admin: 12/19/21 13:39 Dose: Not Given Documented by: Clozapine (Clozapine 100 Mg Tablet) 200 mg PO DAILY@1700 [facility] Last Admin: 12/19/21 17:59 Dose: 200 mg Documented by: Clozapine (Clozapine 100 Mg Tablet) 300 mg PO BEDTIME [facility] Last Admin: 12/19/21 20:40 Dose: 300 mg Documented by: Desmopressin Acetate (Desmopressin Acetate 0.2 Mg Tablet) 0.2 mg PO BID [facility] Last Admin: 12/19/21 20:40 Dose: 0.2 mg Documented by: Docusate Sodium (Docusate Sodium 100 Mg Capsule) 100 mg PO BEDTIME [facility] Last Admin: 12/19/21 20:41 Dose: 100 mg Documented by: Docusate Sodium (Docusate Sodium 100 Mg Capsule) 100 mg PO BID [facility] Last Admin: 12/19/21 20:41 Dose: 100 mg Documented by: Haloperidol (Haloperidol 5 Mg Tablet) 5 mg PO BID [facility] Last Admin: 12/19/21 20:41 Dose: 5 mg Documented by: Hydrochlorothiazide (Hydrochlorothiazide 25 Mg Tablet) 25 mg PO DAILY [facility]; Protocol Last Admin: 12/19/21 13:40 Dose: Not Given Documented by: Hydroxyzine HCl (Hydroxyzine Hcl 25 Mg Tablet) 25 mg PO BEDTIME PRN PRN Reason: Anxiety Last Admin: 12/13/21 04:08 Dose: 25 mg Documented by: Hydroxyzine HCl (Hydroxyzine Hcl 25 Mg Tablet) 25 mg PO BID PRN PRN Reason: Anxiety Last Admin: 12/02/21 16:59 Dose: 25 mg Documented by: [place] Carbonate ([place] Carbonate 300 Mg Tablet) 150 mg PO BEDTIME [facility] Last Admin: 12/19/21 20:40 Dose: 150 mg Documented by: Loperamide HCl (Loperamide Hcl 2 Mg Capsule) 4 mg PO Q4H PRN PRN Reason: Diarrhea Last Admin: 11/01/21 17:04 Dose: 4 mg Documented by: Magnesium Hydroxide (Milk Of Magnesia 30 Ml Oral.Susp) 30 ml PO DAILY PRN PRN Reason: Constipation Last Admin: 12/19/21 14:32 Dose: 30 ml Documented by: Mirtazapine (Mirtazapine 15 Mg Tablet) 15 mg PO BEDTIME [facility] Last Admin: 12/19/21 20:40 Dose: 15 mg Documented by: Olanzapine (Olanzapine 10 Mg Vial) 5 mg IM TID PRN PRN Reason: Psychosis Last Admin: 12/19/21 13:36 Dose: 5 mg Documented by: Potassium Chloride (Potassium Chloride Er 10 Meq Capsule.Er) 40 meq PO BID [facility] Last Admin: 12/19/21 20:41 Dose: 40 meq Documented by: Senna (Sennosides 8.6 Mg Tablet) 8.6 mg PO BEDTIME [facility] Last Admin: 12/19/21 20:40 Dose: 8.6 mg Documented by: Senna (Sennosides 8.6 Mg Tablet) 8.6 mg PO BEDTIME [facility] Last Admin: 12/19/21 03:09 Dose: Not Given Documented by: Trazodone HCl (Trazodone Hcl 50 Mg Tablet) 50 mg PO BEDTIME PRN PRN Reason: Insomnia Last Admin: 12/19/21 01:14 Dose: 50 mg Documented by: Trolamine Salicylate/Aloe Vera (Trolamine Salicylate 10%/Aloe Cream 35.4 Gm) 1 appl TOPICAL TID PRN PRN Reason: neck pain Last Admin: 12/08/21 14:54 Dose: 1 appl Documented by: Allergies Allergies Allergy/AdvReac Type Severity Reaction Status Date / Time No Known Allergies Allergy Unverified 05/01/20 19:42 [No Known Allergies*] Assessment & Plan Assessment & Plan (1) Schizophrenia, paranoid, chronic with acute exacerbation: Status: Acute Code(s): F20.0 - Paranoid schizophrenia (2) Hypertension: Status: Acute Code(s): I10 - Essential (primary) hypertension Plan Elderly female with a long history of schizoaffective disorder bipolar type who was admitted into the facility for exacerbation of psychosis and mood lability. The patient is on Clozaril and apparently she has not been fully compliant with treatment. 11/21 slipped, hit head on 11/20, head CT reviewed and unremarkable Plan 1. The patient at this moment is on 2 psychotics, Clozaril and Invega Sustenna. Her last dose of Invega was less week. Apparently her psychosis has Worsened since she is poorly compliant with Clozaril p.o.. We discussed on rounds at length and legally we can add PRNs IM as per healthcare proxy. 2. Zyprexa 5 mg IM p.r.n. the patient refuses Clozaril. 3. Increase Clozaril since the patient does not have side effects. 4. Keep Haldol up to 5 mg p.o. b.i.d. to target psychosis 5. Add [place] 150 mg qhs. I spent minutes with the patient and/or on the patient floor today, greater than?50% of which was spent counseling/coordinating care. Reason for contiued inpatient stay Substantial Risk for: inability to function and rapid decompensation
[2021-12-20 00:02] LABS: Clozapine (Clozaril) 826 mcg/L; Norclozapine 399 mcg/L (25-400)
[2021-12-20] MEDS: hydroCHLOROthiazide 25 MG TABLET PO (11:14)
[2021-12-20] MEDS: cloZAPine 100 MG TABLET PO (11:14)
[2021-12-20] MEDS: Docusate Sodium 100 MG CAPSULE PO ×2 (11:15→22:42)
[2021-12-20] MEDS: Apixaban 5 MG TABLET PO (11:15)
[2021-12-20] MEDS: HaloperidoL 5 MG TABLET PO ×2 (11:15→22:15)
[2021-12-20] MEDS: Benztropine Mesylate 1 MG TABLET PO ×2 (11:16→22:17)
[2021-12-20] MEDS: Desmopressin Acetate 0.2 MG TABLET PO (11:16)
[2021-12-20 11:30] VITALS: BP 127/77; PULSE 92; RESP 18; TEMP 36.4; O2SAT 95
[2021-12-20] MEDS: Magnesium Citrate 300 ML SOLUTION PO (17:37)
[2021-12-20] MEDS: cloZAPine 100 MG TABLET 200 MG PO (17:37)
--- NOTE | 2021-12-20 17:42 | P.PNPSI_ITS ---
Subjective Subjective Date of Service: 12/20/21 Reason For Visit: psychotic disorder Interim History: Patient is seen and discussed. Continues to yell intermittently that she is sick of being here. Profanities. Startles other patients. Redirectable for brief periods then behavior returns. Restless and walks aroound. She is irritable. Frustrated. Easily agitated. Calms some with 1:1 support. She takes her medications with coaxing. Denies SI Review of Systems Review of Systems unremarkable Yes all other systems are reviewed and are negative, Unobtainable due to mental condition and Unobtainable due to mental status Mental Status Exam Mental Status Exam Narrative: In bed. 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 Patient Appearance: Disheveled Patient Orientation: Person and Situation Level of Consciousness: Awake Patient Behavior: Guarded and Suspicious Mood Description: Withdrawn and Angry Affect Description: Labile and Angry Patient Cognition Impaired: Yes Ability to Follow Directions: Good Speech Pattern: Clear, Loud, Includes Profanity and Excited Memory Description: Intact Diagnostics Vital Signs (24Hr): Vital Signs - 24 hr 12/19/21 18:00 12/20/21 11:30 Temperature 96.9 F 97.6 F Pulse Rate 92 92 Respiratory Rate 18 18 Blood Pressure 120/58 L 127/77 Pulse Oximetry 97 95 BMI result Body Mass Index 27.5 Labs Results: 10/26/21 07:50 12/17/21 08:11 Labs: Laboratory Results - last 48 hr 12/15/21 11:24 Clozapine 826 Norclozapine 399 Imaging Radiology Impressions: ITS Impressions Head CT 10/08/21 15:16 IMPRESSION: No acute intracranial pathology. Head CT 10/09/21 13:54 IMPRESSION: No acute intracranial pathology. Pelvic/Transvag US 10/13/21 09:24 IMPRESSION: Abnormally thickened endometrium for a postmenopausal patient measuring 0.9 cm. 3 x 2.7 x 3.7 cm mass in the posterior cervix. This may represent a fibroid. Slightly thickened trabeculated bladder wall. Head CT 10/20/21 08:18 IMPRESSION: No acute intracranial pathology. This critical result was discussed with Dr. Chu at 8:30 hours on 10/20/2021. It was ascertained that the content and urgency of the report was understood at the time of direct communication. Head CT 11/20/21 19:29 IMPRESSION: No acute intracranial pathology. Medications Medications Current Medications Acetaminophen (Acetaminophen 325 Mg Tablet) 650 mg PO Q6H PRN PRN Reason: Headache/Pain Mild Scale (1-3) Last Admin: 12/13/21 21:56 Dose: 650 mg Documented by: Al Hydroxide/Mg Hydroxide (Magnesium Hydrox/Alum Hydrox 30 Ml Oral.Susp) 30 ml PO Q6H PRN PRN Reason: Heartburn/Nausea Apixaban (Apixaban 5 Mg Tablet) 5 mg PO BID [facility] Last Admin: 12/20/21 11:15 Dose: 5 mg Documented by: Benztropine Mesylate (Benztropine Mesylate 1 Mg Tablet) 1 mg PO BID [facility] Last Admin: 12/20/21 11:16 Dose: 1 mg Documented by: Bisacodyl (Bisacodyl 10 Mg Supp.Rect) 10 mg [place] DAILY PRN PRN Reason: Constipation Last Admin: 12/16/21 04:01 Dose: 10 mg Documented by: Clozapine (Clozapine 100 Mg Tablet) 100 mg PO DAILY [facility] Last Admin: 12/20/21 11:14 Dose: 100 mg Documented by: Clozapine (Clozapine 100 Mg Tablet) 200 mg PO DAILY@1700 [facility] Last Admin: 12/20/21 17:37 Dose: 200 mg Documented by: Clozapine (Clozapine 100 Mg Tablet) 300 mg PO BEDTIME [facility] Last Admin: 12/19/21 20:40 Dose: 300 mg Documented by: Desmopressin Acetate (Desmopressin Acetate 0.2 Mg Tablet) 0.2 mg PO BID [facility] Last Admin: 12/20/21 11:16 Dose: 0.2 mg Documented by: Docusate Sodium (Docusate Sodium 100 Mg Capsule) 100 mg PO BEDTIME [facility] Last Admin: 12/19/21 20:41 Dose: 100 mg Documented by: Docusate Sodium (Docusate Sodium 100 Mg Capsule) 100 mg PO BID [facility] Last Admin: 12/20/21 11:15 Dose: 100 mg Documented by: Haloperidol (Haloperidol 5 Mg Tablet) 5 mg PO BID [facility] Last Admin: 12/20/21 11:15 Dose: 5 mg Documented by: Hydrochlorothiazide (Hydrochlorothiazide 25 Mg Tablet) 25 mg PO DAILY [facility]; Protocol Last Admin: 12/20/21 11:14 Dose: 25 mg Documented by: Hydroxyzine HCl (Hydroxyzine Hcl 25 Mg Tablet) 25 mg PO BEDTIME PRN PRN Reason: Anxiety Last Admin: 12/13/21 04:08 Dose: 25 mg Documented by: Hydroxyzine HCl (Hydroxyzine Hcl 25 Mg Tablet) 25 mg PO BID PRN PRN Reason: Anxiety Last Admin: 12/02/21 16:59 Dose: 25 mg Documented by: Delaplaine Carbonate (Delaplaine Carbonate 300 Mg Tablet) 150 mg PO BEDTIME [facility] Last Admin: 12/19/21 20:40 Dose: 150 mg Documented by: Loperamide HCl (Loperamide Hcl 2 Mg Capsule) 4 mg PO Q4H PRN PRN Reason: Diarrhea Last Admin: 11/01/21 17:04 Dose: 4 mg Documented by: Magnesium Hydroxide (Milk Of Magnesia 30 Ml Oral.Susp) 30 ml PO DAILY PRN PRN Reason: Constipation Last Admin: 12/19/21 14:32 Dose: 30 ml Documented by: Mirtazapine (Mirtazapine 15 Mg Tablet) 15 mg PO BEDTIME [facility] Last Admin: 12/19/21 20:40 Dose: 15 mg Documented by: Olanzapine (Olanzapine 10 Mg Vial) 5 mg IM TID PRN PRN Reason: Psychosis Last Admin: 12/19/21 13:36 Dose: 5 mg Documented by: Potassium Chloride (Potassium Chloride Er 10 Meq Capsule.Er) 40 meq PO BID [facility] Last Admin: 12/20/21 11:13 Dose: 40 meq Documented by: Senna (Sennosides 8.6 Mg Tablet) 8.6 mg PO BEDTIME [facility] Last Admin: 12/19/21 20:40 Dose: 8.6 mg Documented by: Senna (Sennosides 8.6 Mg Tablet) 8.6 mg PO BEDTIME [facility] Last Admin: 12/19/21 03:09 Dose: Not Given Documented by: Trazodone HCl (Trazodone Hcl 50 Mg Tablet) 50 mg PO BEDTIME PRN PRN Reason: Insomnia Last Admin: 12/19/21 01:14 Dose: 50 mg Documented by: Trolamine Salicylate/Aloe Vera (Trolamine Salicylate 10%/Aloe Cream 35.4 Gm) 1 appl TOPICAL TID PRN PRN Reason: neck pain Last Admin: 12/08/21 14:54 Dose: 1 appl Documented by: Allergies Allergies Allergy/AdvReac Type Severity Reaction Status Date / Time No Known Allergies Allergy Unverified 05/01/20 19:42 [No Known Allergies*] Assessment & Plan Assessment & Plan (1) Schizophrenia, paranoid, chronic with acute exacerbation: Status: Acute Code(s): F20.0 - Paranoid schizophrenia (2) Hypertension: Status: Acute Code(s): I10 - Essential (primary) hypertension Plan Elderly female with a long history of schizoaffective disorder bipolar type who was admitted into the facility for exacerbation of psychosis and mood lability. The patient is on Clozaril and apparently she has not been fully compliant with treatment. 11/21 slipped, hit head on 11/20, head CT reviewed and unremarkable Plan 1. The patient at this moment is on 2 psychotics, Clozaril and Invega Sustenna. Her last dose of Invega was less week. Apparently her psychosis has Worsened since she is poorly compliant with Clozaril p.o.. We discussed on rounds at length and legally we can add PRNs IM as per healthcare proxy. 2. Zyprexa 5 mg IM p.r.n. the patient refuses Clozaril. 3. Increase Clozaril since the patient does not have side effects. 4. Keep Haldol up to 5 mg p.o. b.i.d. to target psychosis 5. Add Delaplaine 150 mg qhs. 12/19 continue treatment plan. 12/20 continue treatment plan I spent minutes with the patient and/or on the patient floor today, greater than?50% of which was spent counseling/coordinating care. Reason for contiued inpatient stay Substantial Risk for: inability to function and rapid decompensation
[2021-12-20 19:39] VITALS: BP 120/59; PULSE 97; TEMP 36.8
[2021-12-20] MEDS: cloZAPine 100 MG TABLET 300 MG PO (22:15)
[2021-12-20] MEDS: Lithium Carbonate 300 MG TABLET 150 MG PO (22:16)
[2021-12-20] MEDS: Mirtazapine 15 MG TABLET PO (22:16)
--- NOTE | 2021-12-20 22:43 | PC.NURSE ---
Agitated screaming ' I'm not going to take those fucking pills. i am so sick of this place . pt frequently locating self between her room and the tv area. she is verbally explosive when attempting to engage in conversation. she is not easily directed. she has multiple demands such as get me some water,gingerale,blanket,put the tv on leiva girls. with great effort she took her psychotropic medications. she declined multiple other medications. please refer to mar for medications that were refused.
[2021-12-21] MEDS: traZODone HCL 50 MG TABLET PO (01:00)
[2021-12-21] MEDS: hydrOXYzine HCL 25 MG TABLET PO (01:00)
[2021-12-21 06:00] VITALS: BP 104/53; PULSE 89; RESP 16; TEMP 36.6; O2SAT 99
[2021-12-21] MEDS: cloZAPine 100 MG TABLET PO (13:09)
[2021-12-21] MEDS: HaloperidoL 5 MG TABLET PO ×2 (13:09→20:56)
[2021-12-21 13:23] VITALS: BP 112/67; PULSE 89; RESP 16; TEMP 36.8; O2SAT 98
--- NOTE | 2021-12-21 13:52 | P.PNPSI_ITS ---
Subjective Subjective Date of Service: 12/21/21 Reason For Visit: psychotic disorder Subjective Notes: Conditional Voluntary Interim History: The nursing staff reported the patient has had outbursts of anger, yelling, no changes in her mental status. On interview, the patient denies new symptoms she states that she is not doing well. Even though, that we have increased her Clozaril up to 600 mg a day, Haldol up to 10 mg daily and other psychotropics. Mental Status Exam Mental Status Exam Patient Appearance: Appropriate Patient Orientation: Person and Situation Level of Consciousness: Restless Patient Behavior: Guarded and Passive Mood Description: Withdrawn Affect Description: Constricted Patient Cognition Impaired: Yes Ability to Follow Directions: Good Speech Pattern: Clear Hallucinations: Auditory Delusions: Paranoid Ideation and Grandiose Thought Process: Distracted Thought Content: positive for Poverty of Content and positive for Loose Associations Judgement: Poor Diagnostics Vital Signs (24Hr): Vital Signs - 24 hr 12/20/21 19:39 12/21/21 06:00 12/21/21 13:23 Temperature 98.2 F 97.9 F 98.2 F Pulse Rate 97 89 89 Respiratory Rate 16 16 Blood Pressure 120/59 L 104/53 L 112/67 Pulse Oximetry 99 98 BMI result Body Mass Index 27.5 Labs Results: 10/26/21 07:50 12/17/21 08:11 Labs: Laboratory Results - last 48 hr 12/15/21 11:24 Clozapine 826 Norclozapine 399 Imaging Radiology Impressions: ITS Impressions Head CT 10/08/21 15:16 IMPRESSION: No acute intracranial pathology. Head CT 10/09/21 13:54 IMPRESSION: No acute intracranial pathology. Pelvic/Transvag US 10/13/21 09:24 IMPRESSION: Abnormally thickened endometrium for a postmenopausal patient measuring 0.9 cm. 3 x 2.7 x 3.7 cm mass in the posterior cervix. This may represent a fibroid. Slightly thickened trabeculated bladder wall. Head CT 10/20/21 08:18 IMPRESSION: No acute intracranial pathology. This critical result was discussed with Dr. Chu at 8:30 hours on 10/20/2021. It was ascertained that the content and urgency of the report was understood at the time of direct communication. Head CT 11/20/21 19:29 IMPRESSION: No acute intracranial pathology. Medications Medications Current Medications Acetaminophen (Acetaminophen 325 Mg Tablet) 650 mg PO Q6H PRN PRN Reason: Headache/Pain Mild Scale (1-3) Last Admin: 12/13/21 21:56 Dose: 650 mg Documented by: Al Hydroxide/Mg Hydroxide (Magnesium Hydrox/Alum Hydrox 30 Ml Oral.Susp) 30 ml PO Q6H PRN PRN Reason: Heartburn/Nausea Apixaban (Apixaban 5 Mg Tablet) 5 mg PO BID [facility] Last Admin: 12/21/21 13:22 Dose: Not Given Documented by: Benztropine Mesylate (Benztropine Mesylate 1 Mg Tablet) 1 mg PO BID [facility] Last Admin: 12/21/21 13:22 Dose: Not Given Documented by: Bisacodyl (Bisacodyl 10 Mg Supp.Rect) 10 mg [place] DAILY PRN PRN Reason: Constipation Last Admin: 12/16/21 04:01 Dose: 10 mg Documented by: Clozapine (Clozapine 100 Mg Tablet) 100 mg PO DAILY [facility] Last Admin: 12/21/21 13:09 Dose: 100 mg Documented by: Clozapine (Clozapine 100 Mg Tablet) 200 mg PO DAILY@1700 [facility] Last Admin: 12/20/21 17:37 Dose: 200 mg Documented by: Clozapine (Clozapine 100 Mg Tablet) 300 mg PO BEDTIME [facility] Last Admin: 12/20/21 22:15 Dose: 300 mg Documented by: Desmopressin Acetate (Desmopressin Acetate 0.2 Mg Tablet) 0.2 mg PO BID [facility] Last Admin: 12/21/21 13:22 Dose: Not Given Documented by: Docusate Sodium (Docusate Sodium 100 Mg Capsule) 100 mg PO BEDTIME [facility] Last Admin: 12/20/21 22:42 Dose: 100 mg Documented by: Docusate Sodium (Docusate Sodium 100 Mg Capsule) 100 mg PO BID [facility] Last Admin: 12/21/21 13:22 Dose: Not Given Documented by: Haloperidol (Haloperidol 5 Mg Tablet) 5 mg PO BID [facility] Last Admin: 12/21/21 13:09 Dose: 5 mg Documented by: Hydrochlorothiazide (Hydrochlorothiazide 25 Mg Tablet) 25 mg PO DAILY [facility]; Protocol Last Admin: 12/21/21 13:22 Dose: Not Given Documented by: Hydroxyzine HCl (Hydroxyzine Hcl 25 Mg Tablet) 25 mg PO BEDTIME PRN PRN Reason: Anxiety Last Admin: 12/13/21 04:08 Dose: 25 mg Documented by: Hydroxyzine HCl (Hydroxyzine Hcl 25 Mg Tablet) 25 mg PO BID PRN PRN Reason: Anxiety Last Admin: 12/21/21 01:00 Dose: 25 mg Documented by: [place] Carbonate (P[place]s Carbonate 300 Mg Tablet) 150 mg PO BEDTIME [facility] Last Admin: 12/20/21 22:16 Dose: 150 mg Documented by: Loperamide HCl (Loperamide Hcl 2 Mg Capsule) 4 mg PO Q4H PRN PRN Reason: Diarrhea Last Admin: 11/01/21 17:04 Dose: 4 mg Documented by: Magnesium Hydroxide (Milk Of Magnesia 30 Ml Oral.Susp) 30 ml PO DAILY PRN PRN Reason: Constipation Last Admin: 12/19/21 14:32 Dose: 30 ml Documented by: Mirtazapine (Mirtazapine 15 Mg Tablet) 15 mg PO BEDTIME [facility] Last Admin: 12/20/21 22:16 Dose: 15 mg Documented by: Olanzapine (Olanzapine 10 Mg Vial) 5 mg IM TID PRN PRN Reason: Psychosis Last Admin: 12/19/21 13:36 Dose: 5 mg Documented by: Potassium Chloride (Potassium Chloride Er 10 Meq Capsule.Er) 40 meq PO BID [facility] Last Admin: 12/21/21 13:22 Dose: Not Given Documented by: Senna (Sennosides 8.6 Mg Tablet) 8.6 mg PO BEDTIME [facility] Last Admin: 12/20/21 22:39 Dose: Not Given Documented by: Senna (Sennosides 8.6 Mg Tablet) 8.6 mg PO BEDTIME [facility] Last Admin: 12/20/21 22:39 Dose: Not Given Documented by: Trazodone HCl (Trazodone Hcl 50 Mg Tablet) 50 mg PO BEDTIME PRN PRN Reason: Insomnia Last Admin: 12/21/21 01:00 Dose: 50 mg Documented by: Trolamine Salicylate/Aloe Vera (Trolamine Salicylate 10%/Aloe Cream 35.4 Gm) 1 appl TOPICAL TID PRN PRN Reason: neck pain Last Admin: 12/08/21 14:54 Dose: 1 appl Documented by: Allergies Allergies Allergy/AdvReac Type Severity Reaction Status Date / Time No Known Allergies Allergy Unverified 05/01/20 19:42 [No Known Allergies*] Assessment & Plan Assessment & Plan (1) Schizophrenia, paranoid, chronic with acute exacerbation: Status: Acute Code(s): F20.0 - Paranoid schizophrenia (2) Hypertension: Status: Acute Code(s): I10 - Essential (primary) hypertension Plan Elderly female with a long history of schizoaffective disorder bipolar type who was admitted into the facility for exacerbation of psychosis and mood lability. The patient is on Clozaril and apparently she has not been fully compliant with treatment. 11/21 slipped, hit head on 11/20, head CT reviewed and unremarkable Plan 1. The patient at this moment is on 3 psychotics, Clozaril , Haldol and Invega Sustenna. 2. Zyprexa 5 mg IM p.r.n. the patient refuses Clozaril. 3. Increase Clozaril since the patient does not have side effects, up to 600 mg a day 4. Keep Haldol up to 5 mg p.o. b.i.d. to target psychosis 5. Add Pitts 150 mg qhs. I spent ___20___ minutes with the patient and/or on the patient floor today, greater than?50% of which was spent counseling/coordinating care. Reason for contiued inpatient stay Substantial Risk for: inability to function, rapid decompensation and med/psych decompensation
[2021-12-21 18:00] VITALS: BP 105/67; PULSE 96; RESP 16; TEMP 36.2; O2SAT 97
[2021-12-21] MEDS: cloZAPine 100 MG TABLET 200 MG PO (18:12)
[2021-12-21] MEDS: cloZAPine 100 MG TABLET 300 MG PO (20:56)
[2021-12-21] MEDS: Benztropine Mesylate 1 MG TABLET PO (20:56)
[2021-12-21] MEDS: Mirtazapine 15 MG TABLET PO (20:56)
[2021-12-22 06:00] VITALS: BP 130/87; PULSE 86; RESP 18; TEMP 36.8; O2SAT 98
[2021-12-22] MEDS: cloZAPine 100 MG TABLET PO (10:22)
[2021-12-22] MEDS: Magnesium Citrate 300 ML SOLUTION PO ×2 (10:30→18:03)
[2021-12-22 12:48] LABS: Neut%MD 77.9 %; Neutrophils Absolute Auto 7.5 x10*3/uL (2.0-8.3); WBCANC 9.6 X10*3/uL
--- NOTE | 2021-12-22 15:30 | HO.PSYCHPN ---
Subjective Subjective Date of Service: 12/22/21 Reason For Visit: psychotic disorder Subjective Notes: Conditional Voluntary Interim History: The nursing staff reported the patient slept well, she was incontinent of urine last night. She still constipated so we will do maxi treat today no morning. On interview the patient reports that she is not doing well. The social services specialist stated that she is going to be assessed by the nursing facility tomorrow at 11:00 o'clock in the morning Mental Status Exam Mental Status Exam Patient Appearance: Well Grooomed Patient Orientation: Person and Situation Level of Consciousness: Awake Patient Behavior: Cooperative Mood Description: Labile Affect Description: Blunted Patient Cognition Impaired: Yes Speech Pattern: Rapid Hallucinations: Auditory Delusions: Paranoid Ideation Perceptual Disturbances: Hallucinations Thought Process: Distracted Thought Content: positive for Poverty of Content and positive for Loose Associations Judgement: Fair Diagnostics Vital Signs (24Hr): Vital Signs - 24 hr 12/21/21 18:00 12/22/21 06:00 Temperature 97.2 F 98.2 F Pulse Rate 96 86 Respiratory Rate 16 18 Blood Pressure 105/67 130/87 Pulse Oximetry 97 98 BMI result Body Mass Index 27.5 Labs Results: 10/26/21 07:50 12/17/21 08:11 Labs: Laboratory Results - last 48 hr 12/22/21 12:31 Absolute Neuts (auto) 7.5 Imaging Radiology Impressions: ITS Impressions Head CT 10/08/21 15:16 IMPRESSION: No acute intracranial pathology. Head CT 10/09/21 13:54 IMPRESSION: No acute intracranial pathology. Pelvic/Transvag US 10/13/21 09:24 IMPRESSION: Abnormally thickened endometrium for a postmenopausal patient measuring 0.9 cm. 3 x 2.7 x 3.7 cm mass in the posterior cervix. This may represent a fibroid. Slightly thickened trabeculated bladder wall. Head CT 10/20/21 08:18 IMPRESSION: No acute intracranial pathology. This critical result was discussed with Dr. Chu at 8:30 hours on 10/20/2021. It was ascertained that the content and urgency of the report was understood at the time of direct communication. Head CT 11/20/21 19:29 IMPRESSION: No acute intracranial pathology. Medications Medications Current Medications Acetaminophen (Acetaminophen 325 Mg Tablet) 650 mg PO Q6H PRN PRN Reason: Headache/Pain Mild Scale (1-3) Last Admin: 12/13/21 21:56 Dose: 650 mg Documented by: Al Hydroxide/Mg Hydroxide (Magnesium Hydrox/Alum Hydrox 30 Ml Oral.Susp) 30 ml PO Q6H PRN PRN Reason: Heartburn/Nausea Apixaban (Apixaban 5 Mg Tablet) 5 mg PO BID [facility] Last Admin: 12/22/21 10:32 Dose: Not Given Documented by: Benztropine Mesylate (Benztropine Mesylate 1 Mg Tablet) 1 mg PO BID [facility] Last Admin: 12/22/21 10:32 Dose: Not Given Documented by: Bisacodyl (Bisacodyl 10 Mg Supp.Rect) 10 mg [place] DAILY PRN PRN Reason: Constipation Last Admin: 12/16/21 04:01 Dose: 10 mg Documented by: Clozapine (Clozapine 100 Mg Tablet) 100 mg PO DAILY [facility] Last Admin: 12/22/21 10:22 Dose: 100 mg Documented by: Clozapine (Clozapine 100 Mg Tablet) 200 mg PO DAILY@1700 [facility] Last Admin: 12/21/21 18:12 Dose: 200 mg Documented by: Clozapine (Clozapine 100 Mg Tablet) 300 mg PO BEDTIME [facility] Last Admin: 12/21/21 20:56 Dose: 300 mg Documented by: Desmopressin Acetate (Desmopressin Acetate 0.2 Mg Tablet) 0.2 mg PO BID [facility] Last Admin: 12/22/21 10:32 Dose: Not Given Documented by: Docusate Sodium (Docusate Sodium 100 Mg Capsule) 100 mg PO BEDTIME [facility] Last Admin: 12/21/21 23:19 Dose: Not Given Documented by: Docusate Sodium (Docusate Sodium 100 Mg Capsule) 100 mg PO BID [facility] Last Admin: 12/22/21 10:32 Dose: Not Given Documented by: Haloperidol (Haloperidol 5 Mg Tablet) 5 mg PO BID [facility] Last Admin: 12/22/21 10:32 Dose: Not Given Documented by: Hydrochlorothiazide (Hydrochlorothiazide 25 Mg Tablet) 25 mg PO DAILY [facility]; Protocol Last Admin: 12/22/21 10:32 Dose: Not Given Documented by: Hydroxyzine HCl (Hydroxyzine Hcl 25 Mg Tablet) 25 mg PO BEDTIME PRN PRN Reason: Anxiety Last Admin: 12/13/21 04:08 Dose: 25 mg Documented by: Hydroxyzine HCl (Hydroxyzine Hcl 25 Mg Tablet) 25 mg PO BID PRN PRN Reason: Anxiety Last Admin: 12/21/21 01:00 Dose: 25 mg Documented by: Loperamide HCl (Loperamide Hcl 2 Mg Capsule) 4 mg PO Q4H PRN PRN Reason: Diarrhea Last Admin: 11/01/21 17:04 Dose: 4 mg Documented by: Magnesium Hydroxide (Milk Of Magnesia 30 Ml Oral.Susp) 30 ml PO DAILY PRN PRN Reason: Constipation Last Admin: 12/19/21 14:32 Dose: 30 ml Documented by: Mirtazapine (Mirtazapine 15 Mg Tablet) 15 mg PO BEDTIME [facility] Last Admin: 12/21/21 20:56 Dose: 15 mg Documented by: Olanzapine (Olanzapine 10 Mg Vial) 5 mg IM TID PRN PRN Reason: Psychosis Last Admin: 12/19/21 13:36 Dose: 5 mg Documented by: Potassium Chloride (Potassium Chloride Er 10 Meq Capsule.Er) 40 meq PO BID [facility] Last Admin: 12/22/21 10:32 Dose: Not Given Documented by: Senna (Sennosides 8.6 Mg Tablet) 8.6 mg PO BEDTIME [facility] Last Admin: 12/21/21 23:21 Dose: Not Given Documented by: Senna (Sennosides 8.6 Mg Tablet) 8.6 mg PO BEDTIME [facility] Last Admin: 12/21/21 23:21 Dose: Not Given Documented by: Trazodone HCl (Trazodone Hcl 50 Mg Tablet) 50 mg PO BEDTIME PRN PRN Reason: Insomnia Last Admin: 12/21/21 01:00 Dose: 50 mg Documented by: Trolamine Salicylate/Aloe Vera (Trolamine Salicylate 10%/Aloe Cream 35.4 Gm) 1 appl TOPICAL TID PRN PRN Reason: neck pain Last Admin: 12/08/21 14:54 Dose: 1 appl Documented by: Allergies Allergies Allergy/AdvReac Type Severity Reaction Status Date / Time No Known Allergies Allergy Unverified 05/01/20 19:42 [No Known Allergies*] Assessment & Plan Assessment & Plan (1) Schizophrenia, paranoid, chronic with acute exacerbation: Status: Acute Code(s): F20.0 - Paranoid schizophrenia (2) Hypertension: Status: Acute Code(s): I10 - Essential (primary) hypertension Plan Elderly female with a long history of schizoaffective disorder bipolar type who was admitted into the facility for exacerbation of psychosis and mood lability. The patient is on Clozaril and apparently she has not been fully compliant with treatment. 11/21 slipped, hit head on 11/20, head CT reviewed and unremarkable Plan 1. The patient at this moment is on 3 psychotics, Clozaril , Haldol and Invega Sustenna. 2. Zyprexa 5 mg IM p.r.n. the patient refuses Clozaril. 3. Increase Clozaril since the patient does not have side effects, up to 600 mg a day 4. Keep Haldol up to 5 mg p.o. b.i.d. to target psychosis 5. increase Gautier 150 mg b.i.d. I spent ___20___ minutes with the patient and/or on the patient floor today, greater than?50% of which was spent counseling/coordinating care. Reason for contiued inpatient stay Substantial Risk for: inability to function, rapid decompensation and med/psych decompensation
[2021-12-22] MEDS: cloZAPine 100 MG TABLET 200 MG PO (17:26)
[2021-12-22 19:05] VITALS: BP 129/65; PULSE 86; RESP 18; TEMP 36.6; O2SAT 99
[2021-12-22] MEDS: Apixaban 5 MG TABLET PO (20:04)
[2021-12-22] MEDS: Benztropine Mesylate 1 MG TABLET PO (20:04)
[2021-12-22] MEDS: HaloperidoL 5 MG TABLET PO (20:05)
[2021-12-22] MEDS: Mirtazapine 15 MG TABLET PO (20:05)
[2021-12-22] MEDS: Desmopressin Acetate 0.2 MG TABLET PO (20:05)
[2021-12-22] MEDS: Docusate Sodium 100 MG CAPSULE PO (20:05)
[2021-12-22] MEDS: cloZAPine 100 MG TABLET 300 MG PO (20:05)
[2021-12-22] MEDS: Sennosides 8.6 MG TABLET PO (20:06)
[2021-12-22] MEDS: Lithium Carbonate 300 MG TABLET 150 MG PO (20:07)
[2021-12-23] MEDS: hydroCHLOROthiazide 25 MG TABLET PO (08:41)
[2021-12-23] MEDS: Desmopressin Acetate 0.2 MG TABLET PO ×2 (08:41→21:01)
[2021-12-23] MEDS: Benztropine Mesylate 1 MG TABLET PO ×2 (08:41→21:01)
[2021-12-23] MEDS: Apixaban 5 MG TABLET PO ×2 (08:42→21:01)
[2021-12-23] MEDS: cloZAPine 100 MG TABLET PO (08:42)
[2021-12-23] MEDS: Lithium Carbonate 300 MG TABLET 150 MG PO ×2 (08:42→20:59)
[2021-12-23] MEDS: HaloperidoL 5 MG TABLET PO ×2 (08:42→21:00)
[2021-12-23] MEDS: Docusate Sodium 100 MG CAPSULE PO (08:42)
[2021-12-23 08:46] VITALS: BP 93/54; PULSE 88; RESP 14; TEMP 37.1; O2SAT 95
[2021-12-23] MEDS: hydrOXYzine HCL 25 MG TABLET PO (09:41)
--- NOTE | 2021-12-23 13:47 | P.PNPSI_ITS ---
Subjective Subjective Date of Service: 12/23/21 Reason For Visit: psychotic disorder Subjective Notes: Conditional Voluntary Interim History: the nursing staff reported the patient has been compliant with treatment, she had a P bowel movement today in the morning after some several times of using MAC citrate. Today the staff of the assisted facility will come and visit her. On interview the patient reports that she still hearing voices and she is at this moment on 3 antipsychotics at full doses. We recently started some lithium. We will check lithium level tomorrow morning. Mental Status Exam Mental Status Exam Patient Appearance: Well Grooomed Patient Orientation: Person and Situation Level of Consciousness: Awake Patient Behavior: Suspicious Mood Description: Withdrawn and Labile Affect Description: Depressed and Angry Patient Cognition Impaired: Yes Speech Pattern: Clear Hallucinations: Auditory Delusions: Paranoid Ideation Thought Process: Illogical and Distracted Thought Content: positive for [place], positive for Poverty of Content and positive for Incoherent Judgement: Fair Diagnostics Vital Signs (24Hr): Vital Signs - 24 hr 12/22/21 19:05 12/23/21 08:46 Temperature 97.9 F 98.7 F Pulse Rate 86 88 Respiratory Rate 18 14 Blood Pressure 129/65 93/54 L Pulse Oximetry 99 95 BMI result Body Mass Index 27.5 Labs Results: 10/26/21 07:50 12/17/21 08:11 Labs: Laboratory Results - last 48 hr 12/22/21 12:31 Absolute Neuts (auto) 7.5 Imaging Radiology Impressions: ITS Impressions Head CT 10/08/21 15:16 IMPRESSION: No acute intracranial pathology. Head CT 10/09/21 13:54 IMPRESSION: No acute intracranial pathology. Pelvic/Transvag US 10/13/21 09:24 IMPRESSION: Abnormally thickened endometrium for a postmenopausal patient measuring 0.9 cm. 3 x 2.7 x 3.7 cm mass in the posterior cervix. This may represent a fibroid. Slightly thickened trabeculated bladder wall. Head CT 10/20/21 08:18 IMPRESSION: No acute intracranial pathology. This critical result was discussed with Dr. Chu at 8:30 hours on 10/20/2021. It was ascertained that the content and urgency of the report was understood at the time of direct communication. Head CT 11/20/21 19:29 IMPRESSION: No acute intracranial pathology. Medications Medications Current Medications Acetaminophen (Acetaminophen 325 Mg Tablet) 650 mg PO Q6H PRN PRN Reason: Headache/Pain Mild Scale (1-3) Last Admin: 12/13/21 21:56 Dose: 650 mg Documented by: Al Hydroxide/Mg Hydroxide (Magnesium Hydrox/Alum Hydrox 30 Ml Oral.Susp) 30 ml PO Q6H PRN PRN Reason: Heartburn/Nausea Apixaban (Apixaban 5 Mg Tablet) 5 mg PO BID [facility] Last Admin: 12/23/21 08:42 Dose: 5 mg Documented by: Benztropine Mesylate (Benztropine Mesylate 1 Mg Tablet) 1 mg PO BID [facility] Last Admin: 12/23/21 08:41 Dose: 1 mg Documented by: Bisacodyl (Bisacodyl 10 Mg Supp.Rect) 10 mg [place] DAILY PRN PRN Reason: Constipation Last Admin: 12/16/21 04:01 Dose: 10 mg Documented by: Clozapine (Clozapine 100 Mg Tablet) 100 mg PO DAILY [facility] Last Admin: 12/23/21 08:42 Dose: 100 mg Documented by: Clozapine (Clozapine 100 Mg Tablet) 200 mg PO DAILY@1700 [facility] Last Admin: 12/22/21 17:26 Dose: 200 mg Documented by: Clozapine (Clozapine 100 Mg Tablet) 300 mg PO BEDTIME [facility] Last Admin: 12/22/21 20:05 Dose: 300 mg Documented by: Desmopressin Acetate (Desmopressin Acetate 0.2 Mg Tablet) 0.2 mg PO BID [facility] Last Admin: 12/23/21 08:41 Dose: 0.2 mg Documented by: Docusate Sodium (Docusate Sodium 100 Mg Capsule) 100 mg PO BEDTIME [facility] Last Admin: 12/22/21 20:05 Dose: 100 mg Documented by: Docusate Sodium (Docusate Sodium 100 Mg Capsule) 100 mg PO BID [facility] Last Admin: 12/23/21 08:42 Dose: 100 mg Documented by: Haloperidol (Haloperidol 5 Mg Tablet) 5 mg PO BID [facility] Last Admin: 12/23/21 08:42 Dose: 5 mg Documented by: Hydrochlorothiazide (Hydrochlorothiazide 25 Mg Tablet) 25 mg PO DAILY [facility]; Protocol Last Admin: 12/23/21 08:41 Dose: 25 mg Documented by: Hydroxyzine HCl (Hydroxyzine Hcl 25 Mg Tablet) 25 mg PO BEDTIME PRN PRN Reason: Anxiety Last Admin: 12/13/21 04:08 Dose: 25 mg Documented by: Hydroxyzine HCl (Hydroxyzine Hcl 25 Mg Tablet) 25 mg PO BID PRN PRN Reason: Anxiety Last Admin: 12/23/21 09:41 Dose: 25 mg Documented by: Bettles Carbonate (Bettles Carbonate 300 Mg Tablet) 150 mg PO BID [facility] Last Admin: 12/23/21 08:42 Dose: 150 mg Documented by: Loperamide HCl (Loperamide Hcl 2 Mg Capsule) 4 mg PO Q4H PRN PRN Reason: Diarrhea Last Admin: 11/01/21 17:04 Dose: 4 mg Documented by: Magnesium Hydroxide (Milk Of Magnesia 30 Ml Oral.Susp) 30 ml PO DAILY PRN PRN Reason: Constipation Last Admin: 12/19/21 14:32 Dose: 30 ml Documented by: Mirtazapine (Mirtazapine 15 Mg Tablet) 15 mg PO BEDTIME [facility] Last Admin: 12/22/21 20:05 Dose: 15 mg Documented by: Olanzapine (Olanzapine 10 Mg Vial) 5 mg IM TID PRN PRN Reason: Psychosis Last Admin: 12/19/21 13:36 Dose: 5 mg Documented by: Polyethylene Glycol (Polyethylene Glycol 3350 17 Gm Powd.Pack) 17 gm PO BID [facility] Potassium Chloride (Potassium Chloride Er 10 Meq Capsule.Er) 40 meq PO BID [facility] Last Admin: 12/23/21 08:40 Dose: 40 meq Documented by: Senna (Sennosides 8.6 Mg Tablet) 8.6 mg PO BEDTIME [facility] Last Admin: 12/22/21 20:06 Dose: 8.6 mg Documented by: Trazodone HCl (Trazodone Hcl 50 Mg Tablet) 50 mg PO BEDTIME PRN PRN Reason: Insomnia Last Admin: 12/21/21 01:00 Dose: 50 mg Documented by: Trolamine Salicylate/Aloe Vera (Trolamine Salicylate 10%/Aloe Cream 35.4 Gm) 1 appl TOPICAL TID PRN PRN Reason: neck pain Last Admin: 12/08/21 14:54 Dose: 1 appl Documented by: Allergies Allergies Allergy/AdvReac Type Severity Reaction Status Date / Time No Known Allergies Allergy Unverified 05/01/20 19:42 [No Known Allergies*] Assessment & Plan Assessment & Plan (1) Schizophrenia, paranoid, chronic with acute exacerbation: Status: Acute Code(s): F20.0 - Paranoid schizophrenia (2) Hypertension: Status: Acute Code(s): I10 - Essential (primary) hypertension Plan Elderly female with a long history of schizoaffective disorder bipolar type who was admitted into the facility for exacerbation of psychosis and mood lability. The patient is on Clozaril and apparently she has not been fully compliant with treatment. 11/21 slipped, hit head on 11/20, head CT reviewed and unremarkable Plan 1. The patient at this moment is on 3 psychotics, Clozaril , Haldol and Invega Sustenna. 2. Zyprexa 5 mg IM p.r.n. the patient refuses Clozaril. 3. Increase Clozaril since the patient does not have side effects, up to 600 mg a day 4. Keep Haldol up to 5 mg p.o. b.i.d. to target psychosis 5. increase [place]ett[place] 150 mg b.i.d. 6. [place] level for tomorrow I spent ___20___ minutes with the patient and/or on the patient floor today, greater than?50% of which was spent counseling/coordinating care. Reason for contiued inpatient stay Substantial Risk for: inability to function, rapid decompensation and med/psych decompensation
[2021-12-23] MEDS: cloZAPine 100 MG TABLET 200 MG PO (16:52)
[2021-12-23 18:00] VITALS: BP 135/70; PULSE 96; RESP 17; TEMP 36.3; O2SAT 98
[2021-12-23] MEDS: Mirtazapine 15 MG TABLET PO (21:01)
[2021-12-23] MEDS: cloZAPine 100 MG TABLET 300 MG PO (21:01)
[2021-12-24 07:00] VITALS: BMI 27.2
[2021-12-24 07:57] VITALS: BP 107/53; PULSE 88; RESP 14; TEMP 36.8; O2SAT 95
[2021-12-24 13:35] LABS: Lithium 0.21 mmol/L (0.60-1.20)
[2021-12-24] MEDS: OLANZapine 10 MG VIAL 5 MG IM ×2 (13:37→17:28)
[2021-12-24 13:43] LABS: Anion Gap 10 (12-20); Blood Urea Nitrogen 14 mg/dL (9-16); Calcium 10.9 mg/dL (8.4-10.2); Carbon Dioxide 24 mmol/L (22-29); Chloride 108 mmol/L (96-108); Creatinine Clr Calc Pharmacy 64.7; Estimated Glomerular Filt Rate > 60; Glucose Random 90 mg/dL (60-115); Potassium 4.1 mmol/L (3.3-5.1); Sodium 138 mmol/L (135-145)
--- NOTE | 2021-12-24 14:59 | P.PNPSI_ITS ---
Subjective Subjective Date of Service: 12/24/21 Reason For Visit: psychotic disorder Subjective Notes: Conditional Voluntary Interim History: the nursing staff reported the patient remains paranoid, she treat refuse medications. She was seen in the unit yelling at times responding to internal stimuli. On interview, the patient reported that she is not feeling well her lithium level is low. She agreed to increase lithium Mental Status Exam Mental Status Exam Patient Appearance: Disheveled Patient Orientation: Person Level of Consciousness: Awake Patient Behavior: Passive Mood Description: Labile Affect Description: Angry Patient Cognition Impaired: Yes Ability to Follow Directions: Good Speech Pattern: Clear Hallucinations: Auditory Delusions: Paranoid Ideation, Grandiose and Bizarre Thought Process: Illogical Thought Content: positive for [place] and positive for Poverty of Content Judgement: Fair Diagnostics Vital Signs (24Hr): Vital Signs - 24 hr 12/23/21 18:00 12/24/21 07:57 Temperature 97.4 F 98.2 F Pulse Rate 96 88 Respiratory Rate 17 14 Blood Pressure 135/70 107/53 L Pulse Oximetry 98 95 BMI result Body Mass Index 27.2 Labs Results: 10/26/21 07:50 12/24/21 13:18 Labs: Laboratory Results - last 48 hr 12/24/21 12/24/21 13:18 13:18 Sodium 138 Potassium 4.1 Chloride 108 Carbon Dioxide 24 Anion Gap 10 L BUN 14 Creatinine 0.76 Estim Creat Clear Calc 64.7 Estimated GFR > 60 Random Glucose 90 Calcium 10.9 H [place] 0.21 L Imaging Radiology Impressions: ITS Impressions Head CT 10/08/21 15:16 IMPRESSION: No acute intracranial pathology. Head CT 10/09/21 13:54 IMPRESSION: No acute intracranial pathology. Pelvic/Transvag US 10/13/21 09:24 IMPRESSION: Abnormally thickened endometrium for a postmenopausal patient measuring 0.9 cm. 3 x 2.7 x 3.7 cm mass in the posterior cervix. This may represent a fibroid. Slightly thickened trabeculated bladder wall. Head CT 10/20/21 08:18 IMPRESSION: No acute intracranial pathology. This critical result was discussed with Dr. Chu at 8:30 hours on 10/20/2021. It was ascertained that the content and urgency of the report was understood at the time of direct communication. Head CT 11/20/21 19:29 IMPRESSION: No acute intracranial pathology. Medications Medications Current Medications Acetaminophen (Acetaminophen 325 Mg Tablet) 650 mg PO Q6H PRN PRN Reason: Headache/Pain Mild Scale (1-3) Last Admin: 12/13/21 21:56 Dose: 650 mg Documented by: Al Hydroxide/Mg Hydroxide (Magnesium Hydrox/Alum Hydrox 30 Ml Oral.Susp) 30 ml PO Q6H PRN PRN Reason: Heartburn/Nausea Apixaban (Apixaban 5 Mg Tablet) 5 mg PO BID [facility] Last Admin: 12/24/21 14:39 Dose: Not Given Documented by: Benztropine Mesylate (Benztropine Mesylate 1 Mg Tablet) 1 mg PO BID [facility] Last Admin: 12/24/21 14:39 Dose: Not Given Documented by: Bisacodyl (Bisacodyl 10 Mg Supp.Rect) 10 mg [place] DAILY PRN PRN Reason: Constipation Last Admin: 12/16/21 04:01 Dose: 10 mg Documented by: Clozapine (Clozapine 100 Mg Tablet) 100 mg PO DAILY [facility] Last Admin: 12/24/21 14:39 Dose: Not Given Documented by: Clozapine (Clozapine 100 Mg Tablet) 200 mg PO DAILY@1700 [facility] Last Admin: 12/23/21 16:52 Dose: 200 mg Documented by: Clozapine (Clozapine 100 Mg Tablet) 300 mg PO BEDTIME [facility] Last Admin: 12/23/21 21:01 Dose: 300 mg Documented by: Desmopressin Acetate (Desmopressin Acetate 0.2 Mg Tablet) 0.2 mg PO BID [facility] Last Admin: 12/24/21 14:40 Dose: Not Given Documented by: Docusate Sodium (Docusate Sodium 100 Mg Capsule) 100 mg PO BEDTIME [facility] Last Admin: 12/23/21 21:29 Dose: Not Given Documented by: Docusate Sodium (Docusate Sodium 100 Mg Capsule) 100 mg PO BID [facility] Last Admin: 12/24/21 14:40 Dose: Not Given Documented by: Haloperidol (Haloperidol 5 Mg Tablet) 5 mg PO BID [facility] Last Admin: 12/24/21 14:40 Dose: Not Given Documented by: Hydrochlorothiazide (Hydrochlorothiazide 25 Mg Tablet) 25 mg PO DAILY [facility]; Protocol Last Admin: 12/24/21 14:40 Dose: Not Given Documented by: Hydroxyzine HCl (Hydroxyzine Hcl 25 Mg Tablet) 25 mg PO BEDTIME PRN PRN Reason: Anxiety Last Admin: 12/13/21 04:08 Dose: 25 mg Documented by: Hydroxyzine HCl (Hydroxyzine Hcl 25 Mg Tablet) 25 mg PO BID PRN PRN Reason: Anxiety Last Admin: 12/23/21 09:41 Dose: 25 mg Documented by: [place] Carbonate ([place] Carbonate 300 Mg Tablet) 150 mg PO BID [facility] Last Admin: 12/24/21 14:40 Dose: Not Given Documented by: Loperamide HCl (Loperamide Hcl 2 Mg Capsule) 4 mg PO Q4H PRN PRN Reason: Diarrhea Last Admin: 11/01/21 17:04 Dose: 4 mg Documented by: Magnesium Hydroxide (Milk Of Magnesia 30 Ml Oral.Susp) 30 ml PO DAILY PRN PRN Reason: Constipation Last Admin: 12/19/21 14:32 Dose: 30 ml Documented by: Mirtazapine (Mirtazapine 15 Mg Tablet) 15 mg PO BEDTIME [facility] Last Admin: 12/23/21 21:01 Dose: 15 mg Documented by: Olanzapine (Olanzapine 10 Mg Vial) 5 mg IM TID PRN PRN Reason: Psychosis Last Admin: 12/24/21 13:37 Dose: 5 mg Documented by: Polyethylene Glycol (Polyethylene Glycol 3350 17 Gm Powd.Pack) 17 gm PO BID [facility] Last Admin: 12/24/21 14:40 Dose: Not Given Documented by: Potassium Chloride (Potassium Chloride Er 10 Meq Capsule.Er) 40 meq PO BID [facility] Last Admin: 12/24/21 14:40 Dose: Not Given Documented by: Senna (Sennosides 8.6 Mg Tablet) 8.6 mg PO BEDTIME [facility] Last Admin: 12/23/21 21:28 Dose: Not Given Documented by: Trazodone HCl (Trazodone Hcl 50 Mg Tablet) 50 mg PO BEDTIME PRN PRN Reason: Insomnia Last Admin: 12/21/21 01:00 Dose: 50 mg Documented by: Trolamine Salicylate/Aloe Vera (Trolamine Salicylate 10%/Aloe Cream 35.4 Gm) 1 appl TOPICAL TID PRN PRN Reason: neck pain Last Admin: 12/08/21 14:54 Dose: 1 appl Documented by: Allergies Allergies Allergy/AdvReac Type Severity Reaction Status Date / Time No Known Allergies Allergy Unverified 05/01/20 19:42 [No Known Allergies*] Assessment & Plan Assessment & Plan (1) Schizophrenia, paranoid, chronic with acute exacerbation: Status: Acute Code(s): F20.0 - Paranoid schizophrenia (2) Hypertension: Status: Acute Code(s): I10 - Essential (primary) hypertension Plan Elderly female with a long history of schizoaffective disorder bipolar type who was admitted into the facility for exacerbation of psychosis and mood lability. The patient is on Clozaril and apparently she has not been fully compliant with treatment. 11/21 slipped, hit head on 11/20, head CT reviewed and unremarkable Plan 1. The patient at this moment is on 3 psychotics, Clozaril , Haldol and Invega Sustenna. 2. Zyprexa 5 mg IM p.r.n. the patient refuses Clozaril. 3. Increase Clozaril since the patient does not have side effects, up to 600 mg a day 4. Keep Haldol up to 5 mg p.o. b.i.d. to target psychosis 5. increase [place] 150 mg t.i.d. I spent ___20___ minutes with the patient and/or on the patient floor today, greater than?50% of which was spent counseling/coordinating care. Reason for contiued inpatient stay Substantial Risk for: inability to function, rapid decompensation and med/psych decompensation
[2021-12-24 18:00] VITALS: BP 106/51; PULSE 95; RESP 18; TEMP 36.4; O2SAT 97
[2021-12-24] MEDS: Apixaban 5 MG TABLET PO (19:59)
[2021-12-24] MEDS: Benztropine Mesylate 1 MG TABLET PO (20:00)
[2021-12-24] MEDS: HaloperidoL 5 MG TABLET PO (20:00)
[2021-12-24] MEDS: cloZAPine 100 MG TABLET 300 MG PO (20:00)
[2021-12-24] MEDS: Desmopressin Acetate 0.2 MG TABLET PO (20:00)
[2021-12-24] MEDS: Docusate Sodium 100 MG CAPSULE PO (20:00)
[2021-12-24] MEDS: Sennosides 8.6 MG TABLET PO (20:01)
[2021-12-24] MEDS: Mirtazapine 15 MG TABLET PO (20:01)
[2021-12-24] MEDS: Lithium Carbonate 300 MG TABLET 150 MG PO (20:01)
[2021-12-25 08:00] VITALS: BP 110/53; PULSE 88; RESP 14; TEMP 36.7; O2SAT 95
[2021-12-25] MEDS: OLANZapine 10 MG VIAL 5 MG IM ×2 (10:03→18:18)
--- NOTE | 2021-12-25 13:39 | P.PNPSI_ITS ---
Subjective Subjective Date of Service: 12/25/21 Reason For Visit: psychotic disorder Subjective Notes: Conditional Voluntary Interim History: The nursing staff reports the patient has been psychotic, she refused her Clozaril receive Zyprexa IM. She still have outburst of yelling responding to internal stimuli. The psychiatric social worker reported that staff from [facility] were coming today. On interview the patient denies new symptoms still psychotic Mental Status Exam Mental Status Exam Patient Appearance: Disheveled Patient Orientation: Person and Situation Level of Consciousness: Awake Patient Behavior: Guarded, Passive and Suspicious Mood Description: Withdrawn Affect Description: Labile Patient Cognition Impaired: Yes Ability to Follow Directions: Fair Speech Pattern: Perseverating and Monotone Hallucinations: Auditory Delusions: Paranoid Ideation Thought Process: Racing and Illogical Thought Content: positive for [place] and positive for Poverty of Content Judgement: Fair Diagnostics Vital Signs (24Hr): Vital Signs - 24 hr 12/24/21 18:00 12/25/21 08:00 Temperature 97.5 F 98.1 F Pulse Rate 95 88 Respiratory Rate 18 14 Blood Pressure 106/51 L 110/53 L Pulse Oximetry 97 95 BMI result Body Mass Index 27.2 Labs Results: 10/26/21 07:50 12/24/21 13:18 Labs: Laboratory Results - last 48 hr 12/24/21 12/24/21 13:18 13:18 Sodium 138 Potassium 4.1 Chloride 108 Carbon Dioxide 24 Anion Gap 10 L BUN 14 Creatinine 0.76 Estim Creat Clear Calc 64.7 Estimated GFR > 60 Random Glucose 90 Calcium 10.9 H [place] 0.21 L Imaging Radiology Impressions: ITS Impressions Head CT 10/08/21 15:16 IMPRESSION: No acute intracranial pathology. Head CT 10/09/21 13:54 IMPRESSION: No acute intracranial pathology. Pelvic/Transvag US 10/13/21 09:24 IMPRESSION: Abnormally thickened endometrium for a postmenopausal patient measuring 0.9 cm. 3 x 2.7 x 3.7 cm mass in the posterior cervix. This may represent a fibroid. Slightly thickened trabeculated bladder wall. Head CT 10/20/21 08:18 IMPRESSION: No acute intracranial pathology. This critical result was discussed with Dr. Chu at 8:30 hours on 10/20/2021. It was ascertained that the content and urgency of the report was understood at the time of direct communication. Head CT 11/20/21 19:29 IMPRESSION: No acute intracranial pathology. Medications Medications Current Medications Acetaminophen (Acetaminophen 325 Mg Tablet) 650 mg PO Q6H PRN PRN Reason: Headache/Pain Mild Scale (1-3) Last Admin: 12/13/21 21:56 Dose: 650 mg Documented by: Al Hydroxide/Mg Hydroxide (Magnesium Hydrox/Alum Hydrox 30 Ml Oral.Susp) 30 ml PO Q6H PRN PRN Reason: Heartburn/Nausea Apixaban (Apixaban 5 Mg Tablet) 5 mg PO BID [facility] Last Admin: 12/25/21 10:05 Dose: Not Given Documented by: Benztropine Mesylate (Benztropine Mesylate 1 Mg Tablet) 1 mg PO BID [facility] Last Admin: 12/25/21 10:05 Dose: Not Given Documented by: Bisacodyl (Bisacodyl 10 Mg Supp.Rect) 10 mg [place] DAILY PRN PRN Reason: Constipation Last Admin: 12/16/21 04:01 Dose: 10 mg Documented by: Clozapine (Clozapine 100 Mg Tablet) 100 mg PO DAILY [facility] Last Admin: 12/25/21 10:05 Dose: Not Given Documented by: Clozapine (Clozapine 100 Mg Tablet) 200 mg PO DAILY@1700 [facility] Last Admin: 12/24/21 17:41 Dose: Not Given Documented by: Clozapine (Clozapine 100 Mg Tablet) 300 mg PO BEDTIME [facility] Last Admin: 12/24/21 20:00 Dose: 300 mg Documented by: Desmopressin Acetate (Desmopressin Acetate 0.2 Mg Tablet) 0.2 mg PO BID [facility] Last Admin: 12/25/21 10:05 Dose: Not Given Documented by: Docusate Sodium (Docusate Sodium 100 Mg Capsule) 100 mg PO BEDTIME [facility] Last Admin: 12/24/21 20:00 Dose: 100 mg Documented by: Docusate Sodium (Docusate Sodium 100 Mg Capsule) 100 mg PO BID [facility] Last Admin: 12/25/21 10:05 Dose: Not Given Documented by: Haloperidol (Haloperidol 5 Mg Tablet) 5 mg PO BID [facility] Last Admin: 12/25/21 10:05 Dose: Not Given Documented by: Hydrochlorothiazide (Hydrochlorothiazide 25 Mg Tablet) 25 mg PO DAILY [facility]; Protocol Last Admin: 12/25/21 10:05 Dose: Not Given Documented by: Hydroxyzine HCl (Hydroxyzine Hcl 25 Mg Tablet) 25 mg PO BEDTIME PRN PRN Reason: Anxiety Last Admin: 12/13/21 04:08 Dose: 25 mg Documented by: Hydroxyzine HCl (Hydroxyzine Hcl 25 Mg Tablet) 25 mg PO BID PRN PRN Reason: Anxiety Last Admin: 12/23/21 09:41 Dose: 25 mg Documented by: [place] Carbonate ([place] Carbonate 300 Mg Tablet) 150 mg PO TID [facility] Last Admin: 12/25/21 10:06 Dose: Not Given Documented by: Loperamide HCl (Loperamide Hcl 2 Mg Capsule) 4 mg PO Q4H PRN PRN Reason: Diarrhea Last Admin: 11/01/21 17:04 Dose: 4 mg Documented by: Magnesium Hydroxide (Milk Of Magnesia 30 Ml Oral.Susp) 30 ml PO DAILY PRN PRN Reason: Constipation Last Admin: 12/19/21 14:32 Dose: 30 ml Documented by: Mirtazapine (Mirtazapine 15 Mg Tablet) 15 mg PO BEDTIME [facility] Last Admin: 12/24/21 20:01 Dose: 15 mg Documented by: Olanzapine (Olanzapine 10 Mg Vial) 5 mg IM TID PRN PRN Reason: Psychosis Last Admin: 12/25/21 10:03 Dose: 5 mg Documented by: Polyethylene Glycol (Polyethylene Glycol 3350 17 Gm Powd.Pack) 17 gm PO BID [facility] Last Admin: 12/25/21 10:06 Dose: Not Given Documented by: Potassium Chloride (Potassium Chloride Er 10 Meq Capsule.Er) 40 meq PO BID [facility] Last Admin: 12/25/21 10:07 Dose: Not Given Documented by: Senna (Sennosides 8.6 Mg Tablet) 8.6 mg PO BEDTIME [facility] Last Admin: 12/24/21 20:01 Dose: 8.6 mg Documented by: Trazodone HCl (Trazodone Hcl 50 Mg Tablet) 50 mg PO BEDTIME PRN PRN Reason: Insomnia Last Admin: 12/21/21 01:00 Dose: 50 mg Documented by: Trolamine Salicylate/Aloe Vera (Trolamine Salicylate 10%/Aloe Cream 35.4 Gm) 1 appl TOPICAL TID PRN PRN Reason: neck pain Last Admin: 12/08/21 14:54 Dose: 1 appl Documented by: Allergies Allergies Allergy/AdvReac Type Severity Reaction Status Date / Time No Known Allergies Allergy Unverified 05/01/20 19:42 [No Known Allergies*] Assessment & Plan Assessment & Plan (1) Schizophrenia, paranoid, chronic with acute exacerbation: Status: Acute Code(s): F20.0 - Paranoid schizophrenia (2) Hypertension: Status: Acute Code(s): I10 - Essential (primary) hypertension Plan Elderly female with a long history of schizoaffective disorder bipolar type who was admitted into the facility for exacerbation of psychosis and mood lability. The patient is on Clozaril and apparently she has not been fully com pliant with treatment. 11/21 slipped, hit head on 11/20, head CT reviewed and unremarkable Plan 1. The patient at this moment is on 3 psychotics, Clozaril , Haldol and Invega Sustenna. 2. Zyprexa 5 mg IM p.r.n. the patient refuses Clozaril. 3. Increase Clozaril since the patient does not have side effects, up to 600 mg a day 4. Keep Haldol up to 5 mg p.o. b.i.d. to target psychosis 5. increase [place] 150 mg t.i.d. 6. [place] level for Tuesday I spent ___20___ minutes with the patient and/or on the patient floor today, greater than?50% of which was spent counseling/coordinating care. Reason for contiued inpatient stay Substantial Risk for: inability to function, rapid decompensation and med/psych decompensation
[2021-12-25 18:00] VITALS: BP 110/68; PULSE 78; RESP 16; TEMP 36.6; O2SAT 98
[2021-12-25] MEDS: Benztropine Mesylate 1 MG TABLET PO (20:57)
[2021-12-25] MEDS: Apixaban 5 MG TABLET PO (20:57)
[2021-12-25] MEDS: Desmopressin Acetate 0.2 MG TABLET PO (20:58)
[2021-12-25] MEDS: Docusate Sodium 100 MG CAPSULE PO (20:58)
[2021-12-25] MEDS: HaloperidoL 5 MG TABLET PO (20:58)
[2021-12-25] MEDS: Mirtazapine 15 MG TABLET PO (20:58)
[2021-12-25] MEDS: cloZAPine 100 MG TABLET 300 MG PO (20:58)
[2021-12-25] MEDS: Lithium Carbonate 300 MG TABLET 150 MG PO (20:59)
[2021-12-25] MEDS: Sennosides 8.6 MG TABLET PO (20:59)
[2021-12-26] MEDS: Lithium Carbonate 300 MG TABLET 150 MG PO ×3 (09:23→22:25)
[2021-12-26] MEDS: cloZAPine 100 MG TABLET PO (09:23)
[2021-12-26] MEDS: HaloperidoL 5 MG TABLET PO (09:23)
--- NOTE | 2021-12-26 12:00 | P.PNPSI_ITS ---
Subjective Subjective Date of Service: 12/26/21 Reason For Visit: psychotic disorder Interim History: seen on the unit several times, up, ambulating with a walker. periodic very loud, sharp cries. MD sought out pt for interview and found her lying on her bed, eyes closed, in the position. she did not respond to MD's greeting or invitation to speak. her eyes twitched several times; she appeared to be awake and declining to engage with MD. 10 minutes later MD say her ambulating again on the unit. per staff, RIS. AH. very loud periodic outbursts. taking some medications. Mental Status Exam Mental Status Exam Patient Appearance: Disheveled Level of Consciousness: Awake Patient Behavior: Guarded, Passive and Suspicious Mood Description: Withdrawn Affect Description: Labile Patient Cognition Impaired: Yes Hallucinations: Auditory Judgement: Fair Diagnostics Vital Signs (24Hr): Vital Signs - 24 hr 12/25/21 18:00 Temperature 97.9 F Pulse Rate 78 Respiratory Rate 16 Blood Pressure 110/68 Pulse Oximetry 98 BMI result Body Mass Index 27.2 Labs Results: 10/26/21 07:50 12/24/21 13:18 Labs: Laboratory Results - last 48 hr 12/24/21 12/24/21 13:18 13:18 Sodium 138 Potassium 4.1 Chloride 108 Carbon Dioxide 24 Anion Gap 10 L BUN 14 Creatinine 0.76 Estim Creat Clear Calc 64.7 Estimated GFR > 60 Random Glucose 90 Calcium 10.9 H [place] 0.21 L Imaging Radiology Impressions: ITS Impressions Head CT 10/08/21 15:16 IMPRESSION: No acute intracranial pathology. Head CT 10/09/21 13:54 IMPRESSION: No acute intracranial pathology. Pelvic/Transvag US 10/13/21 09:24 IMPRESSION: Abnormally thickened endometrium for a postmenopausal patient measuring 0.9 cm. 3 x 2.7 x 3.7 cm mass in the posterior cervix. This may represent a fibroid. Slightly thickened trabeculated bladder wall. Head CT 10/20/21 08:18 IMPRESSION: No acute intracranial pathology. This critical result was discussed with Dr. Chu at 8:30 hours on 10/20/2021. It was ascertained that the content and urgency of the report was understood at the time of direct communication. Head CT 11/20/21 19:29 IMPRESSION: No acute intracranial pathology. Medications Medications Current Medications Acetaminophen (Acetaminophen 325 Mg Tablet) 650 mg PO Q6H PRN PRN Reason: Headache/Pain Mild Scale (1-3) Last Admin: 12/13/21 21:56 Dose: 650 mg Documented by: Al Hydroxide/Mg Hydroxide (Magnesium Hydrox/Alum Hydrox 30 Ml Oral.Susp) 30 ml PO Q6H PRN PRN Reason: Heartburn/Nausea Apixaban (Apixaban 5 Mg Tablet) 5 mg PO BID [facility] Last Admin: 12/26/21 09:24 Dose: Not Given Documented by: Benztropine Mesylate (Benztropine Mesylate 1 Mg Tablet) 1 mg PO BID [facility] Last Admin: 12/26/21 09:24 Dose: Not Given Documented by: Bisacodyl (Bisacodyl 10 Mg Supp.Rect) [address] DAILY PRN PRN Reason: Constipation Last Admin: 12/16/21 04:01 Dose: 10 mg Documented by: Clozapine (Clozapine 100 Mg Tablet) 100 mg PO DAILY [facility] Last Admin: 12/26/21 09:23 Dose: 100 mg Documented by: Clozapine (Clozapine 100 Mg Tablet) 200 mg PO DAILY@1700 [facility] Last Admin: 12/25/21 17:33 Dose: Not Given Documented by: Clozapine (Clozapine 100 Mg Tablet) 300 mg PO BEDTIME [facility] Last Admin: 12/25/21 20:58 Dose: 300 mg Documented by: Desmopressin Acetate (Desmopressin Acetate 0.2 Mg Tablet) 0.2 mg PO BID [facility] Last Admin: 12/26/21 09:24 Dose: Not Given Documented by: Docusate Sodium (Docusate Sodium 100 Mg Capsule) 100 mg PO BEDTIME [facility] Last Admin: 12/25/21 20:58 Dose: 100 mg Documented by: Docusate Sodium (Docusate Sodium 100 Mg Capsule) 100 mg PO BID [facility] Last Admin: 12/26/21 09:24 Dose: Not Given Documented by: Haloperidol (Haloperidol 5 Mg Tablet) 5 mg PO BID [facility] Last Admin: 12/26/21 09:23 Dose: 5 mg Documented by: Hydrochlorothiazide (Hydrochlorothiazide 25 Mg Tablet) 25 mg PO DAILY [facility]; Protocol Last Admin: 12/26/21 09:24 Dose: Not Given Documented by: Hydroxyzine HCl (Hydroxyzine Hcl 25 Mg Tablet) 25 mg PO BEDTIME PRN PRN Reason: Anxiety Last Admin: 12/13/21 04:08 Dose: 25 mg Documented by: Hydroxyzine HCl (Hydroxyzine Hcl 25 Mg Tablet) 25 mg PO BID PRN PRN Reason: Anxiety Last Admin: 12/23/21 09:41 Dose: 25 mg Documented by: [place] Carbonate ([place] Carbonate 300 Mg Tablet) 150 mg PO TID [facility] Last Admin: 12/26/21 09:23 Dose: 150 mg Documented by: Loperamide HCl (Loperamide Hcl 2 Mg Capsule) 4 mg PO Q4H PRN PRN Reason: Diarrhea Last Admin: 11/01/21 17:04 Dose: 4 mg Documented by: Magnesium Hydroxide (Milk Of Magnesia 30 Ml Oral.Susp) 30 ml PO DAILY PRN PRN Reason: Constipation Last Admin: 12/19/21 14:32 Dose: 30 ml Documented by: Mirtazapine (Mirtazapine 15 Mg Tablet) 15 mg PO BEDTIME [facility] Last Admin: 12/25/21 20:58 Dose: 15 mg Documented by: Olanzapine (Olanzapine 10 Mg Vial) 5 mg IM TID PRN PRN Reason: Psychosis Last Admin: 12/25/21 18:18 Dose: 5 mg Documented by: Polyethylene Glycol (Polyethylene Glycol 3350 17 Gm Powd.Pack) 17 gm PO BID [facility] Last Admin: 12/26/21 09:24 Dose: Not Given Documented by: Potassium Chloride (Potassium Chloride Er 10 Meq Capsule.Er) 40 meq PO BID [facility] Last Admin: 12/26/21 09:24 Dose: Not Given Documented by: Senna (Sennosides 8.6 Mg Tablet) 8.6 mg PO BEDTIME [facility] Last Admin: 12/25/21 20:59 Dose: 8.6 mg Documented by: Trazodone HCl (Trazodone Hcl 50 Mg Tablet) 50 mg PO BEDTIME PRN PRN Reason: Insomnia Last Admin: 12/21/21 01:00 Dose: 50 mg Documented by: Trolamine Salicylate/Aloe Vera (Trolamine Salicylate 10%/Aloe Cream 35.4 Gm) 1 appl TOPICAL TID PRN PRN Reason: neck pain Last Admin: 12/08/21 14:54 Dose: 1 appl Documented by: Allergies Allergies Allergy/AdvReac Type Severity Reaction Status Date / Time No Known Allergies Allergy Unverified 05/01/20 19:42 [No Known Allergies*] Assessment & Plan Assessment & Plan (1) Schizophrenia, paranoid, chronic with acute exacerbation: Status: Acute Code(s): F20.0 - Paranoid schizophrenia (2) Hypertension: Status: Acute Code(s): I10 - Essential (primary) hypertension Plan Elderly female with a long history of schizoaffective disorder bipolar type who was admitted into the facility for exacerbation of psychosis and mood lability. The patient is on Clozaril and apparently she has not been fully compliant with treatment. 11/21 slipped, hit head on 11/20, head CT reviewed and unremarkable Plan 1. The patient at this moment is on 3 psychotics, Clozaril , Haldol and Invega Sustenna. 2. Zyprexa 5 mg IM p.r.n. the patient refuses Clozaril. 3. Increase Clozaril since the patient does not have side effects, up to 600 mg a day 4. Keep Haldol up to 5 mg p.o. b.i.d. to target psychosis 5. increase [place]a 150 mg t.i.d. 6. [place] level for Tuesday I spent __15____ minutes with the patient and/or on the patient floor today, greater than?50% of which was spent counseling/coordinating care. Reason for contiued inpatient stay Substantial Risk for: inability to function
[2021-12-26] MEDS: cloZAPine 100 MG TABLET 200 MG PO (16:50)
[2021-12-26 22:16] VITALS: BP 117/74; PULSE 98; RESP 18; TEMP 36.3; O2SAT 98
[2021-12-26] MEDS: cloZAPine 100 MG TABLET 300 MG PO (22:24)
[2021-12-26] MEDS: Benztropine Mesylate 1 MG TABLET PO (22:27)
[2021-12-26] MEDS: Mirtazapine 15 MG TABLET PO (22:28)
[2021-12-27 06:00] VITALS: BP 117/62; PULSE 86; RESP 16; TEMP 36.3; O2SAT 95
[2021-12-27] MEDS: hydroCHLOROthiazide 25 MG TABLET PO (11:06)
[2021-12-27] MEDS: Benztropine Mesylate 1 MG TABLET PO ×2 (11:07→20:30)
[2021-12-27] MEDS: Docusate Sodium 100 MG CAPSULE PO ×2 (11:07→20:31)
[2021-12-27] MEDS: Desmopressin Acetate 0.2 MG TABLET PO ×2 (11:07→20:31)
[2021-12-27] MEDS: cloZAPine 100 MG TABLET PO (11:07)
[2021-12-27] MEDS: HaloperidoL 5 MG TABLET PO ×2 (11:07→20:31)
[2021-12-27] MEDS: Apixaban 5 MG TABLET PO ×2 (11:08→20:30)
[2021-12-27] MEDS: Lithium Carbonate 300 MG TABLET 150 MG PO ×3 (11:08→20:31)
--- NOTE | 2021-12-27 11:13 | P.PNPSI_ITS ---
Subjective Subjective Date of Service: 12/27/21 Reason For Visit: psychotic disorder Interim History: found sleeping very soundly in her bed. on being awakened asked for water; staff at hand to provide it. no questions or complaints otherwise. per staff, has not gotten up yet this morning. +RIS yesterday. taking important meds over the past 24H. often playing opposum. Mental Status Exam Mental Status Exam Patient Appearance: Disheveled Level of Consciousness: Drowsy Patient Behavior: Guarded, Passive and Suspicious Mood Description: Withdrawn Affect Description: Blunted Patient Cognition Impaired: Yes Judgement: Fair Diagnostics Vital Signs (24Hr): Vital Signs - 24 hr 12/26/21 22:16 12/27/21 06:00 Temperature 97.3 F 97.3 F Pulse Rate 98 86 Respiratory Rate 18 16 Blood Pressure 117/74 117/62 Pulse Oximetry 98 95 BMI result Body Mass Index 27.2 Labs Results: 10/26/21 07:50 12/24/21 13:18 Imaging Radiology Impressions: ITS Impressions Head CT 10/08/21 15:16 IMPRESSION: No acute intracranial pathology. Head CT 10/09/21 13:54 IMPRESSION: No acute intracranial pathology. Pelvic/Transvag US 10/13/21 09:24 IMPRESSION: Abnormally thickened endometrium for a postmenopausal patient measuring 0.9 cm. 3 x 2.7 x 3.7 cm mass in the posterior cervix. This may represent a fibroid. Slightly thickened trabeculated bladder wall. Head CT 10/20/21 08:18 IMPRESSION: No acute intracranial pathology. This critical result was discussed with Dr. Chu at 8:30 hours on 10/20/2021. It was ascertained that the content and urgency of the report was understood at the time of direct communication. Head CT 11/20/21 19:29 IMPRESSION: No acute intracranial pathology. Medications Medications Current Medications Acetaminophen (Acetaminophen 325 Mg Tablet) 650 mg PO Q6H PRN PRN Reason: Headache/Pain Mild Scale (1-3) Last Admin: 12/13/21 21:56 Dose: 650 mg Documented by: Al Hydroxide/Mg Hydroxide (Magnesium Hydrox/Alum Hydrox 30 Ml Oral.Susp) 30 ml PO Q6H PRN PRN Reason: Heartburn/Nausea Apixaban (Apixaban 5 Mg Tablet) 5 mg PO BID [facility] Last Admin: 12/27/21 11:08 Dose: 5 mg Documented by: Benztropine Mesylate (Benztropine Mesylate 1 Mg Tablet) 1 mg PO BID [facility]PL[facility] BY [facility] Last Admin: 12/27/21 11:07 Dose: 1 mg Documented by: Bisacodyl (Bisacodyl 10 Mg Supp.Rect) 10 mg [place] DAILY PRN PRN Reason: Constipation Last Admin: 12/16/21 04:01 Dose: 10 mg Documented by: Clozapine (Clozapine 100 Mg Tablet) 100 mg PO DAILY [facility] Last Admin: 12/27/21 11:07 Dose: 100 mg Documented by: Clozapine (Clozapine 100 Mg Tablet) 200 mg PO DAILY@1700 [facility]PL[facility] Last Admin: 12/26/21 16:50 Dose: 200 mg Documented by: Clozapine (Clozapine 100 Mg Tablet) 300 mg PO BEDTIME REPLACED BY [facility] Last Admin: 12/26/21 22:24 Dose: 300 mg Documented by: Desmopressin Acetate (Desmopressin Acetate 0.2 Mg Tablet) 0.2 mg PO BID [facility] Last Admin: 12/27/21 11:07 Dose: 0.2 mg Documented by: Docusate Sodium (Docusate Sodium 100 Mg Capsule) 100 mg PO BEDTIME REPLACED BY [facility] Last Admin: 12/26/21 22:34 Dose: Not Given Documented by: Docusate Sodium (Docusate Sodium 100 Mg Capsule) 100 mg PO BID [facility]PL[facility]ED BY [facility] Last Admin: 12/27/21 11:07 Dose: 100 mg Documented by: Haloperidol (Haloperidol 5 Mg Tablet) 5 mg PO BID [facility] Last Admin: 12/27/21 11:07 Dose: 5 mg Documented by: Hydrochlorothiazide (Hydrochlorothiazide 25 Mg Tablet) 25 mg PO DAILY [facility]PLACED BY [facility]; Protocol Last Admin: 12/27/21 11:06 Dose: 25 mg Documented by: Hydroxyzine HCl (Hydroxyzine Hcl 25 Mg Tablet) 25 mg PO BEDTIME PRN PRN Reason: Anxiety Last Admin: 12/13/21 04:08 Dose: 25 mg Documented by: Hydroxyzine HCl (Hydroxyzine Hcl 25 Mg Tablet) 25 mg PO BID PRN PRN Reason: Anxiety Last Admin: 12/23/21 09:41 Dose: 25 mg Documented by: Carey Carbonate (Carey Carbonate 300 Mg Tablet) 150 mg PO TID [facility]PL[facility]ED [facility] Last Admin: 12/27/21 11:08 Dose: 150 mg Documented by: Loperamide HCl (Loperamide Hcl 2 Mg Capsule) 4 mg PO Q4H PRN PRN Reason: Diarrhea Last Admin: 11/01/21 17:04 Dose: 4 mg Documented by: Magnesium Hydroxide (Milk Of Magnesia 30 Ml Oral.Susp) 30 ml PO DAILY PRN PRN Reason: Constipation Last Admin: 12/19/21 14:32 Dose: 30 ml Documented by: Mirtazapine (Mirtazapine 15 Mg Tablet) 15 mg PO BEDTIME [facility] Last Admin: 12/26/21 22:28 Dose: 15 mg Documented by: Olanzapine (Olanzapine 10 Mg Vial) 5 mg IM TID PRN PRN Reason: Psychosis Last Admin: 12/25/21 18:18 Dose: 5 mg Documented by: Polyethylene Glycol (Polyethylene Glycol 3350 17 Gm Powd.Pack) 17 gm PO BID [facility] Last Admin: 12/27/21 11:08 Dose: Not Given Documented by: Potassium Chloride (Potassium Chloride Er 10 Meq Capsule.Er) 40 meq PO BID [facility] Last Admin: 12/27/21 11:08 Dose: Not Given Documented by: Senna (Sennosides 8.6 Mg Tablet) 8.6 mg PO BEDTIME [facility] Last Admin: 12/26/21 22:32 Dose: Not Given Documented by: Trazodone HCl (Trazodone Hcl 50 Mg Tablet) 50 mg PO BEDTIME PRN PRN Reason: Insomnia Last Admin: 12/21/21 01:00 Dose: 50 mg Documented by: Trolamine Salicylate/Aloe Vera (Trolamine Salicylate 10%/Aloe Cream 35.4 Gm) 1 appl TOPICAL TID PRN PRN Reason: neck pain Last Admin: 12/08/21 14:54 Dose: 1 appl Documented by: Allergies Allergies Allergy/AdvReac Type Severity Reaction Status Date / Time No Known Allergies Allergy Unverified 05/01/20 19:42 [No Known Allergies*] Assessment & Plan Assessment & Plan (1) Schizophrenia, paranoid, chronic with acute exacerbation: Status: Acute Code(s): F20.0 - Paranoid schizophrenia (2) Hypertension: Status: Acute Code(s): I10 - Essential (primary) hypertension Plan Elderly female with a long history of schizoaffective disorder bipolar type who was admitted into the facility for exacerbation of psychosis and mood lability. The patient is on Clozaril and apparently she has not been fully compliant with treatment. 11/21 slipped, hit head on 4/8, head CT reviewed and unremarkable Plan 1. The patient at this moment is on 3 psychotics, Clozaril , Haldol and Invega Sustenna. 2. Zyprexa 5 mg IM p.r.n. the patient refuses Clozaril. 3. Increase Clozaril since the patient does not have side effects, up to 600 mg a day 4. Keep Haldol up to 5 mg p.o. b.i.d. to target psychosis 5. increase Carey 150 mg t.i.d. 6. Carey level for Tuesday I spent ___15___ minutes with the patient and/or on the patient floor today, greater than?50% of which was spent counseling/coordinating care. Reason for contiued inpatient stay Substantial Risk for: inability to function and rapid decompensation
[2021-12-27] MEDS: cloZAPine 100 MG TABLET 200 MG PO (15:35)
[2021-12-27 18:00] VITALS: BP 119/64; PULSE 98; RESP 19; TEMP 36.6; O2SAT 94
[2021-12-27] MEDS: cloZAPine 100 MG TABLET 300 MG PO (20:31)
[2021-12-27] MEDS: Mirtazapine 15 MG TABLET PO (20:32)
[2021-12-27] MEDS: Sennosides 8.6 MG TABLET PO (20:33)
[2021-12-27] MEDS: polyethylene glycoL 3350 17 GM POWD.PACK PO (20:39)
[2021-12-27] MEDS: traZODone HCL 50 MG TABLET PO (23:23)
[2021-12-28 06:00] VITALS: BP 104/54; PULSE 84; RESP 14; TEMP 36.4; O2SAT 95
[2021-12-28] MEDS: OLANZapine 10 MG VIAL 5 MG IM (11:15)
--- NOTE | 2021-12-28 12:23 | P.PNPSI_ITS ---
Subjective Subjective Date of Service: 12/28/21 Reason For Visit: psychotic disorder Subjective Notes: Conditional Voluntary Interim History: The nursing staff reported the patient has been fully compliant with treatment but still she has auditory hallucinations yelling at the voices from time to time. She was seen mostly in her room and she stated that she has some thoughts that were disturbing. She slept 7 hours. On interview the patient denies new symptoms. The social sciences professor reported the [facility] denied her and probably she will have another bed at [facility] soon. Mental Status Exam Mental Status Exam Patient Appearance: Disheveled Patient Orientation: Person and Situation Level of Consciousness: Awake Patient Behavior: Cooperative Mood Description: Suspicious Affect Description: Labile Patient Cognition Impaired: Yes Ability to Follow Directions: Fair Speech Pattern: Perseverating and Impoverished Hallucinations: Auditory Delusions: Paranoid Ideation Thought Process: Illogical, Distracted and Slowed Thinking Thought Content: positive for [place], positive for Poverty of Content and positive for Loose Associations Judgement: Fair Diagnostics Vital Signs (24Hr): Vital Signs - 24 hr 12/27/21 18:00 Temperature 98 F Pulse Rate 98 Respiratory Rate 19 Blood Pressure 119/64 Pulse Oximetry 94 BMI result Body Mass Index 27.2 Labs Results: 10/26/21 07:50 12/24/21 13:18 Imaging Radiology Impressions: ITS Impressions Head CT 10/08/21 15:16 IMPRESSION: No acute intracranial pathology. Head CT 10/09/21 13:54 IMPRESSION: No acute intracranial pathology. Pelvic/Transvag US 10/13/21 09:24 IMPRESSION: Abnormally thickened endometrium for a postmenopausal patient measuring 0.9 cm. 3 x 2.7 x 3.7 cm mass in the posterior cervix. This may represent a fibroid. Slightly thickened trabeculated bladder wall. Head CT 10/20/21 08:18 IMPRESSION: No acute intracranial pathology. This critical result was discussed with Dr. Chu at 8:30 hours on 10/20/2021. It was ascertained that the content and urgency of the report was understood at the time of direct communication. Head CT 11/20/21 19:29 IMPRESSION: No acute intracranial pathology. Medications Medications Current Medications Acetaminophen (Acetaminophen 325 Mg Tablet) 650 mg PO Q6H PRN PRN Reason: Headache/Pain Mild Scale (1-3) Last Admin: 12/13/21 21:56 Dose: 650 mg Documented by: Al Hydroxide/Mg Hydroxide (Magnesium Hydrox/Alum Hydrox 30 Ml Oral.Susp) 30 ml PO Q6H PRN PRN Reason: Heartburn/Nausea Apixaban (Apixaban 5 Mg Tablet) 5 mg PO BID [facility] Last Admin: 12/28/21 11:12 Dose: Not Given Documented by: Benztropine Mesylate (Benztropine Mesylate 1 Mg Tablet) 1 mg PO BID [facility] Last Admin: 12/28/21 11:12 Dose: Not Given Documented by: Bisacodyl (Bisacodyl 10 Mg Supp.Rect) 10 mg [place] DAILY PRN PRN Reason: Constipation Last Admin: 12/16/21 04:01 Dose: 10 mg Documented by: Clozapine (Clozapine 100 Mg Tablet) 100 mg PO DAILY [facility] Last Admin: 12/28/21 11:12 Dose: Not Given Documented by: Clozapine (Clozapine 100 Mg Tablet) 200 mg PO DAILY@1700 [facility] Last Admin: 12/27/21 15:35 Dose: 200 mg Documented by: Clozapine (Clozapine 100 Mg Tablet) 300 mg PO BEDTIME [facility] Last Admin: 12/27/21 20:31 Dose: 300 mg Documented by: Desmopressin Acetate (Desmopressin Acetate 0.2 Mg Tablet) 0.2 mg PO BID [facility] Last Admin: 12/28/21 11:12 Dose: Not Given Documented by: Docusate Sodium (Docusate Sodium 100 Mg Capsule) 100 mg PO BEDTIME [facility] Last Admin: 12/27/21 20:31 Dose: 100 mg Documented by: Docusate Sodium (Docusate Sodium 100 Mg Capsule) 100 mg PO BID [facility] Last Admin: 12/28/21 11:12 Dose: Not Given Documented by: Haloperidol (Haloperidol 5 Mg Tablet) 5 mg PO BID [facility] Last Admin: 12/28/21 11:12 Dose: Not Given Documented by: Hydrochlorothiazide (Hydrochlorothiazide 25 Mg Tablet) 25 mg PO DAILY [facility]; Protocol Last Admin: 12/28/21 11:12 Dose: Not Given Documented by: Hydroxyzine HCl (Hydroxyzine Hcl 25 Mg Tablet) 25 mg PO BEDTIME PRN PRN Reason: Anxiety Last Admin: 12/13/21 04:08 Dose: 25 mg Documented by: Hydroxyzine HCl (Hydroxyzine Hcl 25 Mg Tablet) 25 mg PO BID PRN PRN Reason: Anxiety Last Admin: 12/23/21 09:41 Dose: 25 mg Documented by: [place] Carbonate ([place] Carbonate 300 Mg Tablet) 150 mg PO TID [facility] Last Admin: 12/28/21 11:13 Dose: Not Given Documented by: Loperamide HCl (Loperamide Hcl 2 Mg Capsule) 4 mg PO Q4H PRN PRN Reason: Diarrhea Last Admin: 11/01/21 17:04 Dose: 4 mg Documented by: Magnesium Hydroxide (Milk Of Magnesia 30 Ml Oral.Susp) 30 ml PO DAILY PRN PRN Reason: Constipation Last Admin: 12/19/21 14:32 Dose: 30 ml Documented by: Mirtazapine (Mirtazapine 15 Mg Tablet) 15 mg PO BEDTIME [facility] Last Admin: 12/27/21 20:32 Dose: 15 mg Documented by: Olanzapine (Olanzapine 10 Mg Vial) 5 mg IM TID PRN PRN Reason: Psychosis Last Admin: 12/28/21 11:15 Dose: 5 mg Documented by: Polyethylene Glycol (Polyethylene Glycol 3350 17 Gm Powd.Pack) 17 gm PO BID [facility] Last Admin: 12/28/21 11:13 Dose: Not Given Documented by: Potassium Chloride (Potassium Chloride Er 10 Meq Capsule.Er) 40 meq PO BID [facility] Last Admin: 12/28/21 11:13 Dose: Not Given Documented by: Senna (Sennosides 8.6 Mg Tablet) 8.6 mg PO BEDTIME [facility] Last Admin: 12/27/21 20:33 Dose: 8.6 mg Documented by: Trazodone HCl (Trazodone Hcl 50 Mg Tablet) 50 mg PO BEDTIME PRN PRN Reason: Insomnia Last Admin: 12/27/21 23:23 Dose: 50 mg Documented by: Trolamine Salicylate/Aloe Vera (Trolamine Salicylate 10%/Aloe Cream 35.4 Gm) 1 appl TOPICAL TID PRN PRN Reason: neck pain Last Admin: 12/08/21 14:54 Dose: 1 appl Documented by: Allergies Allergies Allergy/AdvReac Type Severity Reaction Status Date / Time No Known Allergies Allergy Unverified 05/01/20 19:42 [No Known Allergies*] Assessment & Plan Assessment & Plan (1) Schizophrenia, paranoid, chronic with acute exacerbation: Status: Acute Code(s): F20.0 - Paranoid schizophrenia (2) Hypertension: Status: Acute Code(s): I10 - Essential (primary) hypertension Plan Elderly female with a long history of schizoaffective disorder bipolar type who was admitted into the facility for exacerbation of psychosis and mood l ability. The patient is on Clozaril and apparently she has not been fully compliant with treatment. 11/21 slipped, hit head on 11/20, head CT reviewed and unremarkable Plan 1. The patient at this moment is on 3 psychotics, Clozaril , Haldol and Invega Sustenna. 2. Zyprexa 5 mg IM p.r.n. the patient refuses Clozaril. 3. Increase Clozaril since the patient does not have side effects, up to 600 mg a day 4. Keep Haldol up to 5 mg p.o. b.i.d. to target psychosis 5. increase [place] 150 mg t.i.d. 6. [place] level for Tuesday I spent __20____ minutes with the patient and/or on the patient floor today, greater than?50% of which was spent counseling/coordinating care. Reason for contiued inpatient stay Substantial Risk for: inability to function, rapid decompensation and med/psych decompensation
[2021-12-28] MEDS: cloZAPine 100 MG TABLET 200 MG PO (16:50)
[2021-12-28] MEDS: Lithium Carbonate 300 MG TABLET 150 MG PO ×2 (16:57→20:26)
[2021-12-28 17:27] LABS: Lithium 0.52 mmol/L (0.60-1.20)
[2021-12-28 18:00] VITALS: BP 103/54; PULSE 91; RESP 17; TEMP 36.4; O2SAT 97
[2021-12-28] MEDS: Benztropine Mesylate 1 MG TABLET PO (20:25)
[2021-12-28] MEDS: Apixaban 5 MG TABLET PO (20:25)
[2021-12-28] MEDS: cloZAPine 100 MG TABLET 300 MG PO (20:25)
[2021-12-28] MEDS: Desmopressin Acetate 0.2 MG TABLET PO (20:25)
[2021-12-28] MEDS: Mirtazapine 15 MG TABLET PO (20:26)
[2021-12-28] MEDS: HaloperidoL 5 MG TABLET PO (20:26)
[2021-12-28] MEDS: Docusate Sodium 100 MG CAPSULE PO (20:26)
[2021-12-28] MEDS: Sennosides 8.6 MG TABLET PO (20:26)
[2021-12-28] MEDS: hydrOXYzine HCL 25 MG TABLET PO (23:17)
[2021-12-28] MEDS: traZODone HCL 50 MG TABLET PO (23:17)
[2021-12-29 06:00] VITALS: BP 102/54; PULSE 83; RESP 14; TEMP 36.6; O2SAT 95
[2021-12-29 08:55] LABS: Neut%MD 65.5 %; Neutrophils Absolute Auto 3.7 x10*3/uL (2.0-8.3); WBCANC 5.6 X10*3/uL
[2021-12-29 09:18] LABS: Lithium 0.56 mmol/L (0.60-1.20)
[2021-12-29] MEDS: OLANZapine 10 MG VIAL 5 MG IM (10:22)
--- NOTE | 2021-12-29 14:08 | P.PNPSI_ITS ---
Subjective Subjective Date of Service: 12/29/21 Reason For Visit: psychotic disorder Subjective Notes: Conditional Voluntary Interim History: the nursing staff reported the patient has been taking medications but she refused medications yesterday in the morning and needed to have Zyprexa IM. The patient fall in the evening. She has been yelling and screaming from time to time. Her lithium level is subtherapeutic on 0.52. On interview the patient is aware that her lithium level is a little low, she is still with auditory hallucinations and confused. Mental Status Exam Mental Status Exam Patient Appearance: Well Grooomed Patient Orientation: Person and Situation Level of Consciousness: Awake Patient Behavior: Appropriate Mood Description: Withdrawn Affect Description: Constricted Patient Cognition Impaired: Yes Ability to Follow Directions: Good Speech Pattern: Clear Hallucinations: Auditory Delusions: Paranoid Ideation Thought Process: Illogical Thought Content: positive for [place] and positive for Poverty of Content Judgement: Fair Diagnostics Vital Signs (24Hr): Vital Signs - 24 hr 12/28/21 18:00 12/29/21 06:00 Temperature 97.5 F 97.9 F Pulse Rate 91 83 Respiratory Rate 17 14 Blood Pressure 103/54 L 102/54 L Pulse Oximetry 97 95 BMI result Body Mass Index 27.2 Labs Results: 10/26/21 07:50 12/24/21 13:18 Labs: Laboratory Results - last 48 hr 12/28/21 12/29/21 12/29/21 16:49 08:26 08:26 Absolute Neuts (auto) 3.7 [place] 0.52 L 0.56 L Imaging Radiology Impressions: ITS Impressions Head CT 10/08/21 15:16 IMPRESSION: No acute intracranial pathology. Head CT 10/09/21 13:54 IMPRESSION: No acute intracranial pathology. Pelvic/Transvag US 10/13/21 09:24 IMPRESSION: Abnormally thickened endometrium for a postmenopausal patient measuring 0.9 cm. 3 x 2.7 x 3.7 cm mass in the posterior cervix. This may represent a fibroid. Slightly thickened trabeculated bladder wall. Head CT 10/20/21 08:18 IMPRESSION: No acute intracranial pathology. This critical result was discussed with Dr. Chu at 8:30 hours on 10/20/2021. It was ascertained that the content and urgency of the report was understood at the time of direct communication. Head CT 11/20/21 19:29 IMPRESSION: No acute intracranial pathology. Medications Medications Current Medications Acetaminophen (Acetaminophen 325 Mg Tablet) 650 mg PO Q6H PRN PRN Reason: Headache/Pain Mild Scale (1-3) Last Admin: 12/13/21 21:56 Dose: 650 mg Documented by: Al Hydroxide/Mg Hydroxide (Magnesium Hydrox/Alum Hydrox 30 Ml Oral.Susp) 30 ml PO Q6H PRN PRN Reason: Heartburn/Nausea Apixaban (Apixaban 5 Mg Tablet) 5 mg PO BID [facility] Last Admin: 12/29/21 12:32 Dose: Not Given Documented by: Benztropine Mesylate (Benztropine Mesylate 1 Mg Tablet) 1 mg PO BID [facility] Last Admin: 12/29/21 12:32 Dose: Not Given Documented by: Bisacodyl (Bisacodyl 10 Mg Supp.Rect) 10 mg [place] DAILY PRN PRN Reason: Constipation Last Admin: 12/16/21 04:01 Dose: 10 mg Documented by: Clozapine (Clozapine 100 Mg Tablet) 100 mg PO DAILY [facility] Last Admin: 12/29/21 12:32 Dose: Not Given Documented by: Clozapine (Clozapine 100 Mg Tablet) 200 mg PO DAILY@1700 [facility] Last Admin: 12/28/21 16:57 Dose: 200 mg Documented by: Clozapine (Clozapine 100 Mg Tablet) 300 mg PO BEDTIME [facility] Last Admin: 12/28/21 20:25 Dose: 300 mg Documented by: Desmopressin Acetate (Desmopressin Acetate 0.2 Mg Tablet) 0.2 mg PO BID [facility] Last Admin: 12/29/21 12:32 Dose: Not Given Documented by: Docusate Sodium (Docusate Sodium 100 Mg Capsule) 100 mg PO BEDTIME [facility] Last Admin: 12/28/21 20:26 Dose: 100 mg Documented by: Docusate Sodium (Docusate Sodium 100 Mg Capsule) 100 mg PO BID [facility] Last Admin: 12/29/21 12:32 Dose: Not Given Documented by: Haloperidol (Haloperidol 5 Mg Tablet) 5 mg PO BID [facility] Last Admin: 12/29/21 12:33 Dose: Not Given Documented by: Hydrochlorothiazide (Hydrochlorothiazide 25 Mg Tablet) 25 mg PO DAILY [facility]; Protocol Last Admin: 12/29/21 12:33 Dose: Not Given Documented by: Hydroxyzine HCl (Hydroxyzine Hcl 25 Mg Tablet) 25 mg PO BEDTIME PRN PRN Reason: Anxiety Last Admin: 12/28/21 23:17 Dose: 25 mg Documented by: Hydroxyzine HCl (Hydroxyzine Hcl 25 Mg Tablet) 25 mg PO BID PRN PRN Reason: Anxiety Last Admin: 12/23/21 09:41 Dose: 25 mg Documented by: Loperamide HCl (Loperamide Hcl 2 Mg Capsule) 4 mg PO Q4H PRN PRN Reason: Diarrhea Last Admin: 11/01/21 17:04 Dose: 4 mg Documented by: Magnesium Hydroxide (Milk Of Magnesia 30 Ml Oral.Susp) 30 ml PO DAILY PRN PRN Reason: Constipation Last Admin: 12/19/21 14:32 Dose: 30 ml Documented by: Mirtazapine (Mirtazapine 15 Mg Tablet) 15 mg PO BEDTIME [facility] Last Admin: 12/28/21 20:26 Dose: 15 mg Documented by: Olanzapine (Olanzapine 10 Mg Vial) 5 mg IM TID PRN PRN Reason: Psychosis Last Admin: 12/29/21 10:22 Dose: 5 mg Documented by: Polyethylene Glycol (Polyethylene Glycol 3350 17 Gm Powd.Pack) 17 gm PO BID [facility] Last Admin: 12/29/21 12:33 Dose: Not Given Documented by: Potassium Chloride (Potassium Chloride Er 10 Meq Capsule.Er) 40 meq PO BID [facility] Last Admin: 12/29/21 12:33 Dose: Not Given Documented by: Senna (Sennosides 8.6 Mg Tablet) 8.6 mg PO BEDTIME [facility] Last Admin: 12/28/21 20:26 Dose: 8.6 mg Documented by: Trazodone HCl (Trazodone Hcl 50 Mg Tablet) 50 mg PO BEDTIME PRN PRN Reason: Insomnia Last Admin: 12/28/21 23:17 Dose: 50 mg Documented by: Trolamine Salicylate/Aloe Vera (Trolamine Salicylate 10%/Aloe Cream 35.4 Gm) 1 appl TOPICAL TID PRN PRN Reason: neck pain Last Admin: 12/08/21 14:54 Dose: 1 appl Documented by: Allergies Allergies Allergy/AdvReac Type Severity Reaction Status Date / Time No Known Allergies Allergy Unverified 05/01/20 19:42 [No Known Allergies*] Assessment & Plan Assessment & Plan (1) Schizophrenia, paranoid, chronic with acute exacerbation: Status: Acute Code(s): F20.0 - Paranoid schizophrenia (2) Hypertension: Status: Acute Code(s): I10 - Essential (primary) hypertension Plan Elderly female with a long history of schizoaffective disorder bipolar type who was admitted into the facility for exacerbation of psychosis and mood lability. The patient is on Clozaril and apparently she has not been fully compliant with treatment. 11/21 slipped, hit head on 11/20, head CT reviewed and unremarkable Plan 1. The patient at this moment is on 3 psychotics, Clozaril , Haldol and Invega Sustenna. 2. Zyprexa 5 mg IM p.r.n. the patient refuses Clozaril. 3. Increase Clozaril since the patient does not have side effects, up to 600 mg a day 4. Keep Haldol up to 5 mg p.o. b.i.d. to target psychosis 5. increase [place] 300 mg p.o. b.i.d. I spent __20____ minutes with the patient and/or on the patient floor today, greater than?50% of which was spent counseling/coordinating care. Reason for contiued inpatient stay Substantial Risk for: inability to function, rapid decompensation and med/psych decompensation
[2021-12-29 18:00] VITALS: BP 118/64; PULSE 91; TEMP 36.1; O2SAT 99
[2021-12-29] MEDS: cloZAPine 100 MG TABLET 200 MG PO (18:52)
[2021-12-29] MEDS: cloZAPine 100 MG TABLET 300 MG PO (20:33)
[2021-12-29] MEDS: HaloperidoL 5 MG TABLET PO (20:34)
[2021-12-29] MEDS: Mirtazapine 15 MG TABLET PO (20:34)
[2021-12-29] MEDS: Lithium Carbonate 300 MG TABLET PO (20:34)
[2021-12-29] MEDS: Apixaban 5 MG TABLET PO (20:35)
[2021-12-29] MEDS: Desmopressin Acetate 0.2 MG TABLET PO (20:35)
[2021-12-29] MEDS: Sennosides 8.6 MG TABLET PO (20:35)
[2021-12-29] MEDS: Benztropine Mesylate 1 MG TABLET PO (20:35)
[2021-12-29] MEDS: Docusate Sodium 100 MG CAPSULE PO (20:35)
[2021-12-29] MEDS: polyethylene glycoL 3350 17 GM POWD.PACK PO (20:37)
[2021-12-30 09:45] VITALS: BP 118/59; PULSE 96; RESP 16; TEMP 36.4; O2SAT 96
[2021-12-30] MEDS: Desmopressin Acetate 0.2 MG TABLET PO ×2 (09:50→20:49)
[2021-12-30] MEDS: hydroCHLOROthiazide 25 MG TABLET PO (09:51)
[2021-12-30] MEDS: Benztropine Mesylate 1 MG TABLET PO ×2 (09:51→20:51)
[2021-12-30] MEDS: Apixaban 5 MG TABLET PO ×2 (09:51→20:49)
[2021-12-30] MEDS: cloZAPine 100 MG TABLET PO (09:51)
[2021-12-30] MEDS: Lithium Carbonate 300 MG TABLET PO ×2 (09:52→20:50)
[2021-12-30] MEDS: HaloperidoL 5 MG TABLET PO ×2 (09:52→20:49)
[2021-12-30] MEDS: Docusate Sodium 100 MG CAPSULE PO ×2 (09:53→20:51)
[2021-12-30] MEDS: polyethylene glycoL 3350 17 GM POWD.PACK PO (09:54)
--- NOTE | 2021-12-30 15:26 | P.PNPSI_ITS ---
Subjective Subjective Date of Service: 12/30/21 Reason For Visit: psychotic disorder Subjective Notes: Conditional Voluntary Interim History: the nursing staff reported the patient slept poorly last night she had some outburst at night. Her mood has been very level. The manager social responsibility reported admission care [facility] refused her but she is going to be reassessed. On interview the patient reports that she still hearing voices. Mental Status Exam Mental Status Exam Patient Appearance: Appropriate Patient Orientation: Person, Place and Situation Level of Consciousness: Awake Patient Behavior: Guarded, Passive and Suspicious Mood Description: Withdrawn Affect Description: Labile Patient Cognition Impaired: Yes Ability to Follow Directions: Good Speech Pattern: Appropriate Hallucinations: Auditory Delusions: Paranoid Ideation and Grandiose Thought Process: Illogical, Distracted and Slowed Thinking Thought Content: positive for [place], positive for Poverty of Content, po sitive for [place] and positive for [place] Judgement: Poor Diagnostics Vital Signs (24Hr): Vital Signs - 24 hr 12/29/21 18:00 12/30/21 09:45 Temperature 96.9 F 97.6 F Pulse Rate 91 96 Respiratory Rate 16 Blood Pressure 118/64 118/59 L Pulse Oximetry 99 96 BMI result Body Mass Index 27.2 Labs Results: 10/26/21 07:50 12/24/21 13:18 Labs: Laboratory Results - last 48 hr 12/28/21 12/29/21 12/29/21 16:49 08:26 08:26 Absolute Neuts (auto) 3.7 [place] 0.52 L 0.56 L Imaging Radiology Impressions: ITS Impressions Head CT 10/08/21 15:16 IMPRESSION: No acute intracranial pathology. Head CT 10/09/21 13:54 IMPRESSION: No acute intracranial pathology. Pelvic/Transvag US 10/13/21 09:24 IMPRESSION: Abnormally thickened endometrium for a postmenopausal patient measuring 0.9 cm. 3 x 2.7 x 3.7 cm mass in the posterior cervix. This may represent a fibroid. Slightly thickened trabeculated bladder wall. Head CT 10/20/21 08:18 IMPRESSION: No acute intracranial pathology. This critical result was discussed with Dr. Chu at 8:30 hours on 10/20/2021. It was ascertained that the content and urgency of the report was understood at the time of direct communication. Head CT 11/20/21 19:29 IMPRESSION: No acute intracranial pathology. Medications Medications Current Medications Acetaminophen (Acetaminophen 325 Mg Tablet) 650 mg PO Q6H PRN PRN Reason: Headache/Pain Mild Scale (1-3) Last Admin: 12/13/21 21:56 Dose: 650 mg Documented by: Al Hydroxide/Mg Hydroxide (Magnesium Hydrox/Alum Hydrox 30 Ml Oral.Susp) 30 ml PO Q6H PRN PRN Reason: Heartburn/Nausea Apixaban (Apixaban 5 Mg Tablet) 5 mg PO BID [facility] Last Admin: 12/30/21 09:51 Dose: 5 mg Documented by: Benztropine Mesylate (Benztropine Mesylate 1 Mg Tablet) 1 mg PO BID [facility] Last Admin: 12/30/21 09:51 Dose: 1 mg Documented by: Bisacodyl (Bisacodyl 10 Mg Supp.Rect) 10 mg [place] DAILY PRN PRN Reason: Constipation Last Admin: 12/16/21 04:01 Dose: 10 mg Documented by: Clozapine (Clozapine 100 Mg Tablet) 100 mg PO DAILY [facility] Last Admin: 12/30/21 09:51 Dose: 100 mg Documented by: Clozapine (Clozapine 100 Mg Tablet) 200 mg PO DAILY@1700 [facility] Last Admin: 12/29/21 18:52 Dose: 200 mg Documented by: Clozapine (Clozapine 100 Mg Tablet) 300 mg PO BEDTIME [facility] Last Admin: 12/29/21 20:33 Dose: 300 mg Documented by: Desmopressin Acetate (Desmopressin Acetate 0.2 Mg Tablet) 0.2 mg PO BID [facility] Last Admin: 12/30/21 09:50 Dose: 0.2 mg Documented by: Docusate Sodium (Docusate Sodium 100 Mg Capsule) 100 mg PO BEDTIME [facility] Last Admin: 12/29/21 20:35 Dose: 100 mg Documented by: Docusate Sodium (Docusate Sodium 100 Mg Capsule) 100 mg PO BID [facility] Last Admin: 12/30/21 09:53 Dose: 100 mg Documented by: Haloperidol (Haloperidol 5 Mg Tablet) 5 mg PO BID [facility] Last Admin: 12/30/21 09:52 Dose: 5 mg Documented by: Hydrochlorothiazide (Hydrochlorothiazide 25 Mg Tablet) 25 mg PO DAILY [facility]; Protocol Last Admin: 12/30/21 09:51 Dose: 25 mg Documented by: Hydroxyzine HCl (Hydroxyzine Hcl 25 Mg Tablet) 25 mg PO BEDTIME PRN PRN Reason: Anxiety Last Admin: 12/28/21 23:17 Dose: 25 mg Documented by: Hydroxyzine HCl (Hydroxyzine Hcl 25 Mg Tablet) 25 mg PO BID PRN PRN Reason: Anxiety Last Admin: 12/23/21 09:41 Dose: 25 mg Documented by: [place] Carbonate ([place] Carbonate 300 Mg Tablet) 300 mg PO BID [facility] Last Admin: 12/30/21 09:52 Dose: 300 mg Documented by: Loperamide HCl (Loperamide Hcl 2 Mg Capsule) 4 mg PO Q4H PRN PRN Reason: Diarrhea Last Admin: 11/01/21 17:04 Dose: 4 mg Documented by: Magnesium Hydroxide (Milk Of Magnesia 30 Ml Oral.Susp) 30 ml PO DAILY PRN PRN Reason: Constipation Last Admin: 12/19/21 14:32 Dose: 30 ml Documented by: Mirtazapine (Mirtazapine 15 Mg Tablet) 15 mg PO BEDTIME [facility] Last Admin: 12/29/21 20:34 Dose: 15 mg Documented by: Olanzapine (Olanzapine 10 Mg Vial) 5 mg IM TID PRN PRN Reason: Psychosis Last Admin: 12/29/21 10:22 Dose: 5 mg Documented by: Polyethylene Glycol (Polyethylene Glycol 3350 17 Gm Powd.Pack) 17 gm PO BID [facility] Last Admin: 12/30/21 09:54 Dose: 17 gm Documented by: Potassium Chloride (Potassium Chloride Er 10 Meq Capsule.Er) 40 meq PO BID [facility] Last Admin: 12/30/21 10:16 Dose: Not Given Documented by: Senna (Sennosides 8.6 Mg Tablet) 8.6 mg PO BEDTIME [facility] Last Admin: 12/29/21 20:35 Dose: 8.6 mg Documented by: Trazodone HCl (Trazodone Hcl 50 Mg Tablet) 50 mg PO BEDTIME PRN PRN Reason: Insomnia Last Admin: 12/28/21 23:17 Dose: 50 mg Documented by: Trolamine Salicylate/Aloe Vera (Trolamine Salicylate 10%/Aloe Cream 35.4 Gm) 1 appl TOPICAL TID PRN PRN Reason: neck pain Last Admin: 12/08/21 14:54 Dose: 1 appl Documented by: Allergies Allergies Allergy/AdvReac Type Severity Reaction Status Date / Time No Known Allergies Allergy Unverified 09/17/20 19:42 [No Known Allergies*] Assessment & Plan Assessment & Plan (1) Schizophrenia, paranoid, chronic with acute exacerbation: Status: Acute Code(s): F20.0 - Paranoid schizophrenia (2) Hypertension: Status: Acute Code(s): I10 - Essential (primary) hypertension Plan Elderly female with a long history of schizoaffective disorder bipolar type who was admitted into the facility for exacerbation of psychosis and mood lability. The patient is on Clozaril and apparently she has not been fully compliant with treatment. 11/21 slipped, hit head on 11/20, head CT reviewed and unremarkable Plan 1. The patient at this moment is on 3 psychotics, Clozaril , Haldol and Invega Sustenna. 2. Zyprexa 5 mg IM p.r.n. the patient refuses Clozaril. 3. Increase Clozaril since the patient does not have side effects, up to 600 mg a day 4. Keep Haldol up to 5 mg p.o. b.i.d. to target psychosis 5. increase [place] 300 mg p.o. b.i.d. I spent ___20___ minutes with the patient and/or on the patient floor today, greater than?50% of which was spent counseling/coordinating care. Reason for contiued inpatient stay Substantial Risk for: inability to function, rapid decompensation and med/psych decompensation
[2021-12-30] MEDS: cloZAPine 100 MG TABLET 200 MG PO (17:32)
[2021-12-30 19:55] VITALS: BP 112/53; PULSE 85; RESP 16; TEMP 36.6; O2SAT 98
[2021-12-30] MEDS: Mirtazapine 15 MG TABLET PO (20:50)
[2021-12-30] MEDS: cloZAPine 100 MG TABLET 300 MG PO (20:50)
[2021-12-30] MEDS: Sennosides 8.6 MG TABLET PO (20:51)
[2021-12-31 06:00] VITALS: BP 121/79; PULSE 89; RESP 19; TEMP 36.3; O2SAT 94
[2021-12-31 07:00] VITALS: BMI 26.8
[2021-12-31] MEDS: HaloperidoL 5 MG TABLET PO (11:15)
[2021-12-31] MEDS: cloZAPine 100 MG TABLET PO (11:15)
--- NOTE | 2021-12-31 16:24 | P.PNPSI_ITS ---
Subjective Subjective Date of Service: 12/31/21 Reason For Visit: psychotic disorder Subjective Notes: Conditional Voluntary Interim History: the nursing staff reported the patient has been compliant with treatment with a lot of encouragement. She still has some auditory hallucinations and verbal outburst. Even though, the staff has noticed fewer emotional outburst sings lithium was increased. On interview the patient denies new symptoms she still is hearing voices Mental Status Exam Mental Status Exam Patient Appearance: Well Grooomed Patient Orientation: Person Level of Consciousness: Awake Patient Behavior: Guarded and Suspicious Mood Description: Withdrawn Affect Description: Labile Patient Cognition Impaired: Yes Ability to Follow Directions: Good Speech Pattern: Clear Hallucinations: Auditory Delusions: Paranoid Ideation Thought Process: Illogical and Distracted Thought Content: positive for [place] and positive for Poverty of Content Judgement: Fair Diagnostics Vital Signs (24Hr): Vital Signs - 24 hr 12/30/21 19:55 12/31/21 06:00 Temperature 97.8 F 97.3 F Pulse Rate 85 89 Respiratory Rate 16 19 Blood Pressure 112/53 L 121/79 Pulse Oximetry 98 94 BMI result Body Mass Index 26.8 Labs Results: 10/26/21 07:50 12/24/21 13:18 Imaging Radiology Impressions: ITS Impressions Head CT 10/08/21 15:16 IMPRESSION: No acute intracranial pathology. Head CT 10/09/21 13:54 IMPRESSION: No acute intracranial pathology. Pelvic/Transvag US 10/13/21 09:24 IMPRESSION: Abnormally thickened endometrium for a postmenopausal patient measuring 0.9 cm. 3 x 2.7 x 3.7 cm mass in the posterior cervix. This may represent a fibroid. Slightly thickened trabeculated bladder wall. Head CT 10/20/21 08:18 IMPRESSION: No acute intracranial pathology. This critical result was discussed with Dr. Chu at 8:30 hours on 10/20/2021. It was ascertained that the content and urgency of the report was understood at the time of direct communication. Head CT 11/20/21 19:29 IMPRESSION: No acute intracranial pathology. Medications Medications Current Medications Acetaminophen (Acetaminophen 325 Mg Tablet) 650 mg PO Q6H PRN PRN Reason: Headache/Pain Mild Scale (1-3) Last Admin: 12/13/21 21:56 Dose: 650 mg Documented by: Al Hydroxide/Mg Hydroxide (Magnesium Hydrox/Alum Hydrox 30 Ml Oral.Susp) 30 ml PO Q6H PRN PRN Reason: Heartburn/Nausea Apixaban (Apixaban 5 Mg Tablet) 5 mg PO BID [facility] Last Admin: 12/31/21 11:15 Dose: Not Given Documented by: Benztropine Mesylate (Benztropine Mesylate 1 Mg Tablet) 1 mg PO BID [facility] Last Admin: 12/31/21 11:15 Dose: Not Given Documented by: Bisacodyl (Bisacodyl 10 Mg Supp.Rect) 10 mg [place] DAILY PRN PRN Reason: Constipation Last Admin: 12/16/21 04:01 Dose: 10 mg Documented by: Clozapine (Clozapine 100 Mg Tablet) 100 mg PO DAILY [facility] Last Admin: 12/31/21 11:15 Dose: 100 mg Documented by: Clozapine (Clozapine 100 Mg Tablet) 200 mg PO DAILY@1700 [facility] Last Admin: 12/30/21 17:32 Dose: 200 mg Documented by: Clozapine (Clozapine 100 Mg Tablet) 300 mg PO BEDTIME [facility] Last Admin: 12/30/21 20:50 Dose: 300 mg Documented by: Desmopressin Acetate (Desmopressin Acetate 0.2 Mg Tablet) 0.2 mg PO BID [facility] Last Admin: 12/31/21 11:15 Dose: Not Given Documented by: Docusate Sodium (Docusate Sodium 100 Mg Capsule) 100 mg PO BEDTIME [facility] Last Admin: 12/30/21 20:51 Dose: 100 mg Documented by: Docusate Sodium (Docusate Sodium 100 Mg Capsule) 100 mg PO BID [facility] Last Admin: 12/31/21 11:15 Dose: Not Given Documented by: Haloperidol (Haloperidol 5 Mg Tablet) 5 mg PO BID [facility] Last Admin: 12/31/21 11:15 Dose: 5 mg Documented by: Hydrochlorothiazide (Hydrochlorothiazide 25 Mg Tablet) 25 mg PO DAILY [facility]; Protocol Last Admin: 12/31/21 11:16 Dose: Not Given Documented by: Hydroxyzine HCl (Hydroxyzine Hcl 25 Mg Tablet) 25 mg PO BEDTIME PRN PRN Reason: Anxiety Last Admin: 12/28/21 23:17 Dose: 25 mg Documented by: Hydroxyzine HCl (Hydroxyzine Hcl 25 Mg Tablet) 25 mg PO BID PRN PRN Reason: Anxiety Last Admin: 12/23/21 09:41 Dose: 25 mg Documented by: [place] Carbonate ([place] Carbonate 300 Mg Tablet) 300 mg PO BID [facility] Last Admin: 12/31/21 11:16 Dose: Not Given Documented by: Loperamide HCl (Loperamide Hcl 2 Mg Capsule) 4 mg PO Q4H PRN PRN Reason: Diarrhea Last Admin: 11/01/21 17:04 Dose: 4 mg Documented by: Magnesium Hydroxide (Milk Of Magnesia 30 Ml Oral.Susp) 30 ml PO DAILY PRN PRN Reason: Constipation Last Admin: 12/19/21 14:32 Dose: 30 ml Documented by: Mirtazapine (Mirtazapine 15 Mg Tablet) 15 mg PO BEDTIME [facility] Last Admin: 12/30/21 20:50 Dose: 15 mg Documented by: Olanzapine (Olanzapine 10 Mg Vial) 5 mg IM TID PRN PRN Reason: Psychosis Last Admin: 12/29/21 10:22 Dose: 5 mg Documented by: Polyethylene Glycol (Polyethylene Glycol 3350 17 Gm Powd.Pack) 17 gm PO BID [facility] Last Admin: 12/31/21 11:16 Dose: Not Given Documented by: Potassium Chloride (Potassium Chloride Er 10 Meq Capsule.Er) 40 meq PO BID [facility] Last Admin: 12/31/21 11:16 Dose: Not Given Documented by: Senna (Sennosides 8.6 Mg Tablet) 8.6 mg PO BEDTIME [facility] Last Admin: 12/30/21 20:51 Dose: 8.6 mg Documented by: Trazodone HCl (Trazodone Hcl 50 Mg Tablet) 50 mg PO BEDTIME PRN PRN Reason: Insomnia Last Admin: 12/28/21 23:17 Dose: 50 mg Documented by: Trolamine Salicylate/Aloe Vera (Trolamine Salicylate 10%/Aloe Cream 35.4 Gm) 1 appl TOPICAL TID PRN PRN Reason: neck pain Last Admin: 12/08/21 14:54 Dose: 1 appl Documented by: Allergies Allergies Allergy/AdvReac Type Severity Reaction Status Date / Time No Known Allergies Allergy Unverified 05/01/20 19:42 [No Known Allergies*] Assessment & Plan Assessment & Plan (1) Schizophrenia, paranoid, chronic with acute exacerbation: Status: Acute Code(s): F20.0 - Paranoid schizophrenia (2) Hypertension: Status: Acute Code(s): I10 - Essential (primary) hypertension Plan Elderly female with a long history of schizoaffective disorder bipolar type who was admitted into the facility for exacerbation of psychosis and mood lability. The patient is on Clozaril and apparently she has not been fully compliant with treatment. 11/21 slipped, hit head on 11/20, head CT reviewed and unremarkable Plan 1. The patient at this moment is on 3 psychotics, Clozaril , Haldol and Invega Sustenna. 2. Zyprexa 5 mg IM p.r.n. the patient refuses Clozaril. 3. Increase Clozaril since the patient does not have side effects, up to 600 mg a day 4. Keep Haldol up to 5 mg p.o. b.i.d. to target psychosis 5. increase [place] 300 mg p.o. b.i.d. 6. [place] level for next Tuesday I spent ___20___ minutes with the patient and/or on the patient floor today, greater than?50% of which was spent counseling/coordinating care. Reason for contiued inpatient stay Substantial Risk for: inability to function, rapid decompensation and med/psych decompensation
[2021-12-31] MEDS: cloZAPine 100 MG TABLET 200 MG PO (17:46)
[2021-12-31 20:04] VITALS: BP 136/83; PULSE 97; RESP 17; TEMP 36.3; O2SAT 100
[2021-12-31] MEDS: Lithium Carbonate 300 MG TABLET PO (22:27)
[2021-12-31] MEDS: traZODone HCL 50 MG TABLET PO (22:28)
[2021-12-31] MEDS: cloZAPine 100 MG TABLET 300 MG PO (22:28)
[2022-01-01] MEDS: OLANZapine 10 MG VIAL 5 MG IM (11:21)
--- NOTE | 2022-01-01 16:29 | P.PNPSI_ITS ---
Subjective Subjective Date of Service: 01/01/22 Reason For Visit: psychotic disorder Subjective Notes: Conditional Voluntary Interim History: The nursing staff reported the patient has been agitated at times yelling in her room, responding to internal stimuli. On interview the patient reports that he still hearing voices. She is aware that she is going to have blood work next Tuesday. The school social worker reported that they have already applied for placement at the [facility] Mental Status Exam Mental Status Exam Patient Appearance: Well Grooomed Patient Orientation: Person and Situation Level of Consciousness: Awake Patient Behavior: Cooperative Mood Description: Withdrawn Affect Description: Labile Patient Cognition Impaired: Yes Ability to Follow Directions: Good Speech Pattern: Clear Hallucinations: Auditory Delusions: Paranoid Ideation and Grandiose Thought Process: Linear and Evasive Thought Content: positive for [place] and positive for Poverty of Content Judgement: Fair Diagnostics Vital Signs (24Hr): Vital Signs - 24 hr 12/31/21 20:04 Temperature 97.4 F Pulse Rate 97 Respiratory Rate 17 Blood Pressure 136/83 Pulse Oximetry 100 BMI result Body Mass Index 26.8 Labs Results: 10/26/21 07:50 12/24/21 13:18 Imaging Radiology Impressions: ITS Impressions Head CT 10/08/21 15:16 IMPRESSION: No acute intracranial pathology. Head CT 10/09/21 13:54 IMPRESSION: No acute intracranial pathology. Pelvic/Transvag US 10/13/21 09:24 IMPRESSION: Abnormally thickened endometrium for a postmenopausal patient measuring 0.9 cm. 3 x 2.7 x 3.7 cm mass in the posterior cervix. This may represent a fibroid. Slightly thickened trabeculated bladder wall. Head CT 10/20/21 08:18 IMPRESSION: No acute intracranial pathology. This critical result was discussed with Dr. Chu at 8:30 hours on 10/20/2021. It was ascertained that the content and urgency of the report was understood at the time of direct communication. Head CT 11/20/21 19:29 IMPRESSION: No acute intracranial pathology. Medications Medications Current Medications Acetaminophen (Acetaminophen 325 Mg Tablet) 650 mg PO Q6H PRN PRN Reason: Headache/Pain Mild Scale (1-3) Last Admin: 12/13/21 21:56 Dose: 650 mg Documented by: Al Hydroxide/Mg Hydroxide (Magnesium Hydrox/Alum Hydrox 30 Ml Oral.Susp) 30 ml PO Q6H PRN PRN Reason: Heartburn/Nausea Apixaban (Apixaban 5 Mg Tablet) 5 mg PO BID [facility] Last Admin: 01/01/22 11:21 Dose: Not Given Documented by: Benztropine Mesylate (Benztropine Mesylate 1 Mg Tablet) 1 mg PO BID [facility] Last Admin: 01/01/22 11:21 Dose: Not Given Documented by: Bisacodyl (Bisacodyl 10 Mg Supp.Rect) 10 mg [place] DAILY PRN PRN Reason: Constipation Last Admin: 12/16/21 04:01 Dose: 10 mg Documented by: Clozapine (Clozapine 100 Mg Tablet) 100 mg PO DAILY [facility] Last Admin: 01/01/22 11:21 Dose: Not Given Documented by: Clozapine (Clozapine 100 Mg Tablet) 200 mg PO DAILY@1700 [facility] Last Admin: 12/31/21 17:46 Dose: 200 mg Documented by: Clozapine (Clozapine 100 Mg Tablet) 300 mg PO BEDTIME [facility] Last Admin: 12/31/21 22:28 Dose: 300 mg Documented by: Desmopressin Acetate (Desmopressin Acetate 0.2 Mg Tablet) 0.2 mg PO BID [facility] Last Admin: 01/01/22 11:22 Dose: Not Given Documented by: Docusate Sodium (Docusate Sodium 100 Mg Capsule) 100 mg PO BEDTIME [facility] Last Admin: 12/31/21 23:27 Dose: Not Given Documented by: Docusate Sodium (Docusate Sodium 100 Mg Capsule) 100 mg PO BID [facility] Last Admin: 01/01/22 11:22 Dose: Not Given Documented by: Haloperidol (Haloperidol 5 Mg Tablet) 5 mg PO BID [facility] Last Admin: 01/01/22 11:22 Dose: Not Given Documented by: Hydrochlorothiazide (Hydrochlorothiazide 25 Mg Tablet) 25 mg PO DAILY [facility]; Protocol Last Admin: 01/01/22 11:22 Dose: Not Given Documented by: Hydroxyzine HCl (Hydroxyzine Hcl 25 Mg Tablet) 25 mg PO BEDTIME PRN PRN Reason: Anxiety Last Admin: 12/28/21 23:17 Dose: 25 mg Documented by: Hydroxyzine HCl (Hydroxyzine Hcl 25 Mg Tablet) 25 mg PO BID PRN PRN Reason: Anxiety Last Admin: 12/23/21 09:41 Dose: 25 mg Documented by: [place] Carbonate ([place] Carbonate 300 Mg Tablet) 300 mg PO BID [facility] Last Admin: 01/01/22 11:22 Dose: Not Given Documented by: Loperamide HCl (Loperamide Hcl 2 Mg Capsule) 4 mg PO Q4H PRN PRN Reason: Diarrhea Last Admin: 11/01/21 17:04 Dose: 4 mg Documented by: Magnesium Hydroxide (Milk Of Magnesia 30 Ml Oral.Susp) 30 ml PO DAILY PRN PRN Reason: Constipation Last Admin: 12/19/21 14:32 Dose: 30 ml Documented by: Mirtazapine (Mirtazapine 15 Mg Tablet) 15 mg PO BEDTIME [facility] Last Admin: 12/31/21 23:28 Dose: Not Given Documented by: Olanzapine (Olanzapine 10 Mg Vial) 5 mg IM TID PRN PRN Reason: Psychosis Last Admin: 01/01/22 11:21 Dose: 5 mg Documented by: Polyethylene Glycol (Polyethylene Glycol 3350 17 Gm Powd.Pack) 17 gm PO BID [facility] Last Admin: 01/01/22 11:22 Dose: Not Given Documented by: Potassium Chloride (Potassium Chloride Er 10 Meq Capsule.Er) 40 meq PO BID [facility] Last Admin: 01/01/22 11:22 Dose: Not Given Documented by: Senna (Sennosides 8.6 Mg Tablet) 8.6 mg PO BEDTIME [facility] Last Admin: 12/31/21 23:27 Dose: Not Given Documented by: Trazodone HCl (Trazodone Hcl 50 Mg Tablet) 50 mg PO BEDTIME PRN PRN Reason: Insomnia Last Admin: 12/31/21 22:28 Dose: 50 mg Documented by: Trolamine Salicylate/Aloe Vera (Trolamine Salicylate 10%/Aloe Cream 35.4 Gm) 1 appl TOPICAL TID PRN PRN Reason: neck pain Last Admin: 12/08/21 14:54 Dose: 1 appl Documented by: Allergies Allergies Allergy/AdvReac Type Severity Reaction Status Date / Time No Known Allergies Allergy Unverified 05/01/20 19:42 [No Known Allergies*] Assessment & Plan Assessment & Plan (1) Schizophrenia, paranoid, chronic with acute exacerbation: Status: Acute Code(s): F20.0 - Paranoid schizophrenia (2) Hypertension: Status: Acute Code(s): I10 - Essential (primary) hypertension Plan Elderly female with a long history of schizoaffective disorder bipolar type who was admitted into the facility for exacerbation of psychosis and mood lability. The patient is on Clozaril and apparently she has not been fully compliant with treatment. 11/21 slipped, hit head on 11/20, head CT reviewed and unremarkable Plan 1. The patient at this moment is on 3 psychotics, Clozaril , Haldol and Invega Sustenna. 2. Zyprexa 5 mg IM p.r.n. the patient refuses Clozaril. 3. Increase Clozaril since the patient does not have side effects, up to 600 mg a day 4. Keep Haldol up to 5 mg p.o. b.i.d. to target psychosis 5. increase [place] 300 mg p.o. b.i.d. 6. [place] level for next Tuesday I spent ___20___ minutes with the patient and/or on the patient floor today, greater than?50% of which was spent counseling/coordinating care. Reason for contiued inpatient stay Substantial Risk for: inability to function, rapid decompensation and med/psych decompensation
[2022-01-01 18:00] VITALS: BP 121/74; PULSE 96; RESP 18; TEMP 36.1; O2SAT 100
[2022-01-01] MEDS: cloZAPine 100 MG TABLET 200 MG PO (18:13)
[2022-01-02 06:00] VITALS: BP 96/49; PULSE 96; RESP 16; TEMP 36.2; O2SAT 94
[2022-01-02] MEDS: HaloperidoL 5 MG TABLET PO (11:56)
[2022-01-02] MEDS: cloZAPine 100 MG TABLET PO (11:56)
--- NOTE | 2022-01-02 15:03 | HO.PSYCHPN ---
Subjective Subjective Date of Service: 01/02/22 Reason For Visit: psychotic disorder Interim History: As per staff, continues to have evidence of psychosis and distress associated with same. Continues to remain isolative in the morning times primarily. Court-ordered medications. Would not engage with loan underwriter. Medication Compliance: Intermittent Side effects from medications: No Attending Groups: No Review of Systems Acute medical concerns: No Review of Systems Review of Systems Yes Unobtainable due to mental status Mental Status Exam Mental Status Exam Narrative: Would not engage with loan underwriter. In bed. Does appear disheveled. Diagnostics Vital Signs (24Hr): Vital Signs - 24 hr 01/01/22 18:00 01/02/22 06:00 Temperature 96.9 F 97.2 F Pulse Rate 96 96 Respiratory Rate 18 16 Blood Pressure 121/74 96/49 L Pulse Oximetry 100 94 BMI result Body Mass Index 26.8 Labs Results: 10/26/21 07:50 12/24/21 13:18 Imaging Radiology Impressions: ITS Impressions Head CT 10/08/21 15:16 IMPRESSION: No acute intracranial pathology. Head CT 10/09/21 13:54 IMPRESSION: No acute intracranial pathology. Pelvic/Transvag US 10/13/21 09:24 IMPRESSION: Abnormally thickened endometrium for a postmenopausal patient measuring 0.9 cm. 3 x 2.7 x 3.7 cm mass in the posterior cervix. This may represent a fibroid. Slightly thickened trabeculated bladder wall. Head CT 10/20/21 08:18 IMPRESSION: No acute intracranial pathology. This critical result was discussed with Dr. Chu at 8:30 hours on 10/20/2021. It was ascertained that the content and urgency of the report was understood at the time of direct communication. Head CT 11/20/21 19:29 IMPRESSION: No acute intracranial pathology. Medications Medications Current Medications Acetaminophen (Acetaminophen 325 Mg Tablet) 650 mg PO Q6H PRN PRN Reason: Headache/Pain Mild Scale (1-3) Last Admin: 12/13/21 21:56 Dose: 650 mg Documented by: Al Hydroxide/Mg Hydroxide (Magnesium Hydrox/Alum Hydrox 30 Ml Oral.Susp) 30 ml PO Q6H PRN PRN Reason: Heartburn/Nausea Apixaban (Apixaban 5 Mg Tablet) 5 mg PO BID [facility] Last Admin: 01/02/22 11:57 Dose: Not Given Documented by: Benztropine Mesylate (Benztropine Mesylate 1 Mg Tablet) 1 mg PO BID [facility] Last Admin: 01/02/22 11:57 Dose: Not Given Documented by: Bisacodyl (Bisacodyl 10 Mg Supp.Rect) 10 mg [place] DAILY PRN PRN Reason: Constipation Last Admin: 12/16/21 04:01 Dose: 10 mg Documented by: Clozapine (Clozapine 100 Mg Tablet) 100 mg PO DAILY [facility] Last Admin: 01/02/22 11:56 Dose: 100 mg Documented by: Clozapine (Clozapine 100 Mg Tablet) 200 mg PO DAILY@1700 [facility] Last Admin: 01/01/22 18:13 Dose: 200 mg Documented by: Clozapine (Clozapine 100 Mg Tablet) 300 mg PO BEDTIME [facility] Last Admin: 01/02/22 01:05 Dose: Not Given Documented by: Desmopressin Acetate (Desmopressin Acetate 0.2 Mg Tablet) 0.2 mg PO BID [facility] Last Admin: 01/02/22 11:57 Dose: Not Given Documented by: Docusate Sodium (Docusate Sodium 100 Mg Capsule) 100 mg PO BEDTIME [facility] Last Admin: 01/02/22 01:05 Dose: Not Given Documented by: Docusate Sodium (Docusate Sodium 100 Mg Capsule) 100 mg PO BID [facility] Last Admin: 01/02/22 11:57 Dose: Not Given Documented by: Haloperidol (Haloperidol 5 Mg Tablet) 5 mg PO BID [facility] Last Admin: 01/02/22 11:56 Dose: 5 mg Documented by: Hydrochlorothiazide (Hydrochlorothiazide 25 Mg Tablet) 25 mg PO DAILY [facility]; Protocol Last Admin: 01/02/22 11:57 Dose: Not Given Documented by: Hydroxyzine HCl (Hydroxyzine Hcl 25 Mg Tablet) 25 mg PO BEDTIME PRN PRN Reason: Anxiety Last Admin: 12/28/21 23:17 Dose: 25 mg Documented by: Hydroxyzine HCl (Hydroxyzine Hcl 25 Mg Tablet) 25 mg PO BID PRN PRN Reason: Anxiety Last Admin: 12/23/21 09:41 Dose: 25 mg Documented by: [address] Carbonate ([address] Carbonate 300 Mg Tablet) 300 mg PO BID [facility] Last Admin: 01/02/22 11:57 Dose: Not Given Documented by: Loperamide HCl (Loperamide Hcl 2 Mg Capsule) 4 mg PO Q4H PRN PRN Reason: Diarrhea Last Admin: 11/01/21 17:04 Dose: 4 mg Documented by: Magnesium Hydroxide (Milk Of Magnesia 30 Ml Oral.Susp) 30 ml PO DAILY PRN PRN Reason: Constipation Last Admin: 12/19/21 14:32 Dose: 30 ml Documented by: Mirtazapine (Mirtazapine 15 Mg Tablet) 15 mg PO BEDTIME [facility] Last Admin: 01/02/22 01:06 Dose: Not Given Documented by: Olanzapine (Olanzapine 10 Mg Vial) 5 mg IM TID PRN PRN Reason: Psychosis Last Admin: 01/01/22 11:21 Dose: 5 mg Documented by: Polyethylene Glycol (Polyethylene Glycol 3350 17 Gm Powd.Pack) 17 gm PO BID [facility] Last Admin: 01/02/22 11:58 Dose: Not Given Documented by: Potassium Chloride (Potassium Chloride Er 10 Meq Capsule.Er) 40 meq PO BID [facility] Last Admin: 01/02/22 11:58 Dose: Not Given Documented by: Senna (Sennosides 8.6 Mg Tablet) 8.6 mg PO BEDTIME [facility] Last Admin: 01/02/22 01:07 Dose: Not Given Documented by: Trazodone HCl (Trazodone Hcl 50 Mg Tablet) 50 mg PO BEDTIME PRN PRN Reason: Insomnia Last Admin: 12/31/21 22:28 Dose: 50 mg Documented by: Trolamine Salicylate/Aloe Vera (Trolamine Salicylate 10%/Aloe Cream 35.4 Gm) 1 appl TOPICAL TID PRN PRN Reason: neck pain Last Admin: 12/08/21 14:54 Dose: 1 appl Documented by: Allergies Allergies Allergy/AdvReac Type Severity Reaction Status Date / Time No Known Allergies Allergy Unverified 05/01/20 19:42 [No Known Allergies*] Assessment & Plan Assessment & Plan (1) Schizophrenia, paranoid, chronic with acute exacerbation: Status: Acute Code(s): F20.0 - Paranoid schizophrenia (2) Hypertension: Status: Acute Code(s): I10 - Essential (primary) hypertension Plan Elderly female with a long history of schizoaffective disorder bipolar type who was admitted into the facility for exacerbation of psychosis and mood lability. The patient is on Clozaril and apparently she has not been fully compliant with treatment. 11/21 slipped, hit head on 11/20, head CT reviewed and unremarkable Plan 1. The patient at this moment is on 3 psychotics, Clozaril , Haldol and Invega Sustenna. 2. Zyprexa 5 mg IM p.r.n. the patient refuses Clozaril. 3. Increase Clozaril since the patient does not have side effects, up to 600 mg a day 4. Keep Haldol up to 5 mg p.o. b.i.d. to target psychosis 5. increase [address] 300 mg p.o. b.i.d. 6. [address] level for next Tuesday01/02/2022: No changes to team treatment plan. Noted lithium level after the weekend. I spent minutes with the patient and/or on the patient floor today, greater than?50% of which was spent counseling/coordinating care. Reason for contiued inpatient stay Substantial Risk for: inability to function
[2022-01-02] MEDS: cloZAPine 100 MG TABLET 200 MG PO (17:57)
[2022-01-02 18:00] VITALS: BP 106/56; PULSE 98; RESP 18; TEMP 36.4; O2SAT 97
[2022-01-03] MEDS: OLANZapine 10 MG VIAL 5 MG IM ×2 (13:19→18:12)
--- NOTE | 2022-01-03 14:47 | HO.PSYCHPN ---
Subjective Subjective Date of Service: 01/03/22 Reason For Visit: psychotic disorder Interim History: observed to be internally preoccupied and hallucinating. Reports being very distressed by same. Yelling at times. Was talking about God and Satan. [place] hopeless. No evidence of SI or HI. Medication Compliance: Yes ([place]) Side effects from medications: No Attending Groups: No Review of Systems Acute medical concerns: No Review of Systems Review of Systems Yes Unobtainable due to mental status Mental Status Exam Mental Status Exam Patient Appearance: Well Grooomed Patient Orientation: Person and Situation Level of Consciousness: Awake Patient Behavior: Cooperative Mood Description: Withdrawn Affect Description: Labile Patient Cognition Impaired: Yes Ability to Follow Directions: Good Speech Pattern: Clear Memory Description: Intact Hallucinations: Auditory Delusions: Paranoid Ideation Perceptual Disturbances: Hallucinations Thought Process: Intact Diagnostics Vital Signs (24Hr): Vital Signs - 24 hr 01/02/22 18:00 Temperature 97.5 F Pulse Rate 98 Respiratory Rate 18 Blood Pressure 106/56 L Pulse Oximetry 97 BMI result Body Mass Index 26.8 Labs Results: 10/26/21 07:50 12/24/21 13:18 Imaging Radiology Impressions: ITS Impressions Head CT 10/08/21 15:16 IMPRESSION: No acute intracranial pathology. Head CT 10/09/21 13:54 IMPRESSION: No acute intracranial pathology. Pelvic/Transvag US 10/13/21 09:24 IMPRESSION: Abnormally thickened endometrium for a postmenopausal patient measuring 0.9 cm. 3 x 2.7 x 3.7 cm mass in the posterior cervix. This may represent a fibroid. Slightly thickened trabeculated bladder wall. Head CT 10/20/21 08:18 IMPRESSION: No acute intracranial pathology. This critical result was discussed with Dr. Chu at 8:30 hours on 10/20/2021. It was ascertained that the content and urgency of the report was understood at the time of direct communication. Head CT 11/20/21 19:29 IMPRESSION: No acute intracranial pathology. Medications Medications Current Medications Acetaminophen (Acetaminophen 325 Mg Tablet) 650 mg PO Q6H PRN PRN Reason: Headache/Pain Mild Scale (1-3) Last Admin: 12/13/21 21:56 Dose: 650 mg Documented by: Al Hydroxide/Mg Hydroxide (Magnesium Hydrox/Alum Hydrox 30 Ml Oral.Susp) 30 ml PO Q6H PRN PRN Reason: Heartburn/Nausea Apixaban (Apixaban 5 Mg Tablet) 5 mg PO BID [facility] Last Admin: 01/03/22 12:57 Dose: Not Given Documented by: Benztropine Mesylate (Benztropine Mesylate 1 Mg Tablet) 1 mg PO BID [facility] Last Admin: 01/03/22 12:57 Dose: Not Given Documented by: Bisacodyl (Bisacodyl 10 Mg Supp.Rect) [address] DAILY PRN PRN Reason: Constipation Last Admin: 12/16/21 04:01 Dose: 10 mg Documented by: Clozapine (Clozapine 100 Mg Tablet) 100 mg PO DAILY [facility] Last Admin: 01/03/22 14:15 Dose: Not Given Documented by: Clozapine (Clozapine 100 Mg Tablet) 200 mg PO DAILY@1700 [facility] Last Admin: 01/02/22 17:57 Dose: 200 mg Documented by: Clozapine (Clozapine 100 Mg Tablet) 300 mg PO BEDTIME [facility] Last Admin: 01/02/22 21:25 Dose: Not Given Documented by: Desmopressin Acetate (Desmopressin Acetate 0.2 Mg Tablet) 0.2 mg PO BID [facility] Last Admin: 01/03/22 12:58 Dose: Not Given Documented by: Docusate Sodium (Docusate Sodium 100 Mg Capsule) 100 mg PO BEDTIME [facility] Last Admin: 01/02/22 21:26 Dose: Not Given Documented by: Docusate Sodium (Docusate Sodium 100 Mg Capsule) 100 mg PO BID [facility] Last Admin: 01/03/22 12:59 Dose: Not Given Documented by: Haloperidol (Haloperidol 5 Mg Tablet) 5 mg PO BID [facility] Last Admin: 01/03/22 13:16 Dose: Not Given Documented by: Hydrochlorothiazide (Hydrochlorothiazide 25 Mg Tablet) 25 mg PO DAILY [facility]; Protocol Last Admin: 01/03/22 12:59 Dose: Not Given Documented by: Hydroxyzine HCl (Hydroxyzine Hcl 25 Mg Tablet) 25 mg PO BEDTIME PRN PRN Reason: Anxiety Last Admin: 12/28/21 23:17 Dose: 25 mg Documented by: Hydroxyzine HCl (Hydroxyzine Hcl 25 Mg Tablet) 25 mg PO BID PRN PRN Reason: Anxiety Last Admin: 12/23/21 09:41 Dose: 25 mg Documented by: [place] Carbonate ([place] Carbonate 300 Mg Tablet) 300 mg PO BID [facility] Last Admin: 01/03/22 13:16 Dose: Not Given Documented by: Loperamide HCl (Loperamide Hcl 2 Mg Capsule) 4 mg PO Q4H PRN PRN Reason: Diarrhea Last Admin: 11/01/21 17:04 Dose: 4 mg Documented by: Magnesium Hydroxide (Milk Of Magnesia 30 Ml Oral.Susp) 30 ml PO DAILY PRN PRN Reason: Constipation Last Admin: 12/19/21 14:32 Dose: 30 ml Documented by: Mirtazapine (Mirtazapine 15 Mg Tablet) 15 mg PO BEDTIME [facility] Last Admin: 01/02/22 21:26 Dose: Not Given Documented by: Olanzapine (Olanzapine 10 Mg Vial) 5 mg IM TID PRN PRN Reason: Psychosis Last Admin: 01/03/22 13:19 Dose: 5 mg Documented by: Polyethylene Glycol (Polyethylene Glycol 3350 17 Gm Powd.Pack) 17 gm PO BID [facility] Last Admin: 01/03/22 12:59 Dose: Not Given Documented by: Potassium Chloride (Potassium Chloride Er 10 Meq Capsule.Er) 40 meq PO BID [facility] Last Admin: 01/03/22 13:00 Dose: Not Given Documented by: Senna (Sennosides 8.6 Mg Tablet) 8.6 mg PO BEDTIME [facility] Last Admin: 01/02/22 21:27 Dose: Not Given Documented by: Trazodone HCl (Trazodone Hcl 50 Mg Tablet) 50 mg PO BEDTIME PRN PRN Reason: Insomnia Last Admin: 12/31/21 22:28 Dose: 50 mg Documented by: Trolamine Salicylate/Aloe Vera (Trolamine Salicylate 10%/Aloe Cream 35.4 Gm) 1 appl TOPICAL TID PRN PRN Reason: neck pain Last Admin: 12/08/21 14:54 Dose: 1 appl Documented by: Allergies Allergies Allergy/AdvReac Type Severity Reaction Status Date / Time No Known Allergies Allergy Unverified 05/01/20 19:42 [No Known Allergies*] Assessment & Plan Assessment & Plan (1) Schizophrenia, paranoid, chronic with acute exacerbation: Status: Acute Code(s): F20.0 - Paranoid schizophrenia (2) Hypertension: Status: Acute Code(s): I10 - Essential (primary) hypertension Plan Elderly female with a long history of schizoaffective disorder bipolar type who was admitted into the facility for exacerbation of psychosis and mood lability. The patient is on Clozaril and apparently she has not been fully compliant with treatment. 11/21 slipped, hit head on 11/20, head CT reviewed and unremarkable Plan 1. The patient at this moment is on 3 psychotics, Clozaril , Haldol and Invega Sustenna. 2. Zyprexa 5 mg IM p.r.n. the patient refuses Clozaril. 3. Increase Clozaril since the patient does not have side effects, up to 600 mg a day 4. Keep Haldol up to 5 mg p.o. b.i.d. to target psychosis 5. increase [place] 300 mg p.o. b.i.d. 6. [place] level for next Tuesday01/03/2022: No changes to team treatment plan. Noted lithium level after the weekend. I spent minutes with the patient and/or on the patient floor today, greater than?50% of which was spent counseling/coordinating care. Reason for contiued inpatient stay Substantial Risk for: inability to function
--- NOTE | 2022-01-03 16:02 | PC.NURSE ---
Patient slept throughout the early part of the shift not coming out of room until lunch. Refused am meds and vitals. After several unsuccessful attempts to administer PO meds patient received IM Olanzapine per protocol. Patient has been resting in room most of afternoon. Continues to shout out at internal stimuli.
[2022-01-03 18:00] VITALS: RESP 16
[2022-01-03] MEDS: Mirtazapine 15 MG TABLET PO (21:05)
[2022-01-03] MEDS: cloZAPine 100 MG TABLET 300 MG PO (21:05)
[2022-01-03] MEDS: Apixaban 5 MG TABLET PO (21:05)
[2022-01-03] MEDS: Benztropine Mesylate 1 MG TABLET PO (21:05)
[2022-01-03] MEDS: HaloperidoL 5 MG TABLET PO (21:05)
[2022-01-03] MEDS: traZODone HCL 50 MG TABLET PO (23:35)
[2022-01-03] MEDS: Lithium Carbonate 300 MG TABLET PO (23:35)
[2022-01-04] MEDS: Lithium Carbonate 300 MG TABLET PO ×2 (10:35→21:47)
[2022-01-04] MEDS: HaloperidoL 5 MG TABLET PO ×2 (10:35→21:46)
[2022-01-04] MEDS: Apixaban 5 MG TABLET PO ×2 (10:35→21:47)
[2022-01-04] MEDS: cloZAPine 100 MG TABLET PO (10:36)
[2022-01-04] MEDS: Benztropine Mesylate 1 MG TABLET PO ×2 (10:36→21:46)
--- NOTE | 2022-01-04 15:21 | HO.PSYCHPN ---
Subjective Subjective Date of Service: 01/04/22 Reason For Visit: psychotic disorder Subjective Notes: Conditional Voluntary Interim History: Patient referred to [facility]. Remains anxious with intrusive hallucinations denies active SI Mental Status Exam Mental Status Exam Patient Appearance: Well Grooomed Patient Orientation: Person and Situation Level of Consciousness: Awake Patient Behavior: Cooperative Mood Description: Withdrawn Affect Description: Labile Patient Cognition Impaired: Yes Ability to Follow Directions: Good Speech Pattern: Clear Memory Description: Intact Hallucinations: Auditory Delusions: Paranoid Ideation Perceptual Disturbances: Hallucinations Thought Process: Intact Diagnostics Vital Signs (24Hr): Vital Signs - 24 hr 01/03/22 18:00 Respiratory Rate 16 BMI result Body Mass Index 26.8 Labs Results: 10/26/21 07:50 12/24/21 13:18 Imaging Radiology Impressions: ITS Impressions Head CT 10/08/21 15:16 IMPRESSION: No acute intracranial pathology. Head CT 10/09/21 13:54 IMPRESSION: No acute intracranial pathology. Pelvic/Transvag US 10/13/21 09:24 IMPRESSION: Abnormally thickened endometrium for a postmenopausal patient measuring 0.9 cm. 3 x 2.7 x 3.7 cm mass in the posterior cervix. This may represent a fibroid. Slightly thickened trabeculated bladder wall. Head CT 10/20/21 08:18 IMPRESSION: No acute intracranial pathology. This critical result was discussed with Dr. Chu at 8:30 hours on 10/20/2021. It was ascertained that the content and urgency of the report was understood at the time of direct communication. Head CT 11/20/21 19:29 IMPRESSION: No acute intracranial pathology. Medications Medications Current Medications Acetaminophen (Acetaminophen 325 Mg Tablet) 650 mg PO Q6H PRN PRN Reason: Headache/Pain Mild Scale (1-3) Last Admin: 12/13/21 21:56 Dose: 650 mg Documented by: Al Hydroxide/Mg Hydroxide (Magnesium Hydrox/Alum Hydrox 30 Ml Oral.Susp) 30 ml PO Q6H PRN PRN Reason: Heartburn/Nausea Apixaban (Apixaban 5 Mg Tablet) 5 mg PO BID [facility] Last Admin: 01/04/22 10:35 Dose: 5 mg Documented by: Benztropine Mesylate (Benztropine Mesylate 1 Mg Tablet) 1 mg PO BID [facility] Last Admin: 01/04/22 10:36 Dose: 1 mg Documented by: Bisacodyl (Bisacodyl 10 Mg Supp.Rect) 10 mg [place] DAILY PRN PRN Reason: Constipation Last Admin: 12/16/21 04:01 Dose: 10 mg Documented by: Clozapine (Clozapine 100 Mg Tablet) 100 mg PO DAILY [facility] Last Admin: 01/04/22 10:36 Dose: 100 mg Documented by: Clozapine (Clozapine 100 Mg Tablet) 200 mg PO DAILY@1700 [facility] Last Admin: 01/03/22 18:12 Dose: Not Given Documented by: Clozapine (Clozapine 100 Mg Tablet) 300 mg PO BEDTIME [facility] Last Admin: 01/03/22 21:05 Dose: 300 mg Documented by: Desmopressin Acetate (Desmopressin Acetate 0.2 Mg Tablet) 0.2 mg PO BID [facility] Last Admin: 01/04/22 10:42 Dose: Not Given Documented by: Docusate Sodium (Docusate Sodium 100 Mg Capsule) 100 mg PO BEDTIME [facility] Last Admin: 01/03/22 22:31 Dose: Not Given Documented by: Docusate Sodium (Docusate Sodium 100 Mg Capsule) 100 mg PO BID [facility] Last Admin: 01/04/22 10:42 Dose: Not Given Documented by: Haloperidol (Haloperidol 5 Mg Tablet) 5 mg PO BID [facility] Last Admin: 01/04/22 10:35 Dose: 5 mg Documented by: Hydrochlorothiazide (Hydrochlorothiazide 25 Mg Tablet) 25 mg PO DAILY [facility]; Protocol Last Admin: 01/04/22 10:42 Dose: Not Given Documented by: Hydroxyzine HCl (Hydroxyzine Hcl 25 Mg Tablet) 25 mg PO BEDTIME PRN PRN Reason: Anxiety Last Admin: 12/28/21 23:17 Dose: 25 mg Documented by: Hydroxyzine HCl (Hydroxyzine Hcl 25 Mg Tablet) 25 mg PO BID PRN PRN Reason: Anxiety Last Admin: 12/23/21 09:41 Dose: 25 mg Documented by: [place] Carbonate ([place] Carbonate 300 Mg Tablet) 300 mg PO BID [facility] Last Admin: 01/04/22 10:35 Dose: 300 mg Documented by: Loperamide HCl (Loperamide Hcl 2 Mg Capsule) 4 mg PO Q4H PRN PRN Reason: Diarrhea Last Admin: 11/01/21 17:04 Dose: 4 mg Documented by: Magnesium Hydroxide (Milk Of Magnesia 30 Ml Oral.Susp) 30 ml PO DAILY PRN PRN Reason: Constipation Last Admin: 12/19/21 14:32 Dose: 30 ml Documented by: Mirtazapine (Mirtazapine 15 Mg Tablet) 15 mg PO BEDTIME [facility] Last Admin: 01/03/22 21:05 Dose: 15 mg Documented by: Olanzapine (Olanzapine 10 Mg Vial) 5 mg IM TID PRN PRN Reason: Psychosis Last Admin: 01/03/22 18:12 Dose: 5 mg Documented by: Polyethylene Glycol (Polyethylene Glycol 3350 17 Gm Powd.Pack) 17 gm PO BID [facility] Last Admin: 01/04/22 10:42 Dose: Not Given Documented by: Potassium Chloride (Potassium Chloride Er 10 Meq Capsule.Er) 40 meq PO BID [facility] Last Admin: 01/04/22 10:42 Dose: Not Given Documented by: Senna (Sennosides 8.6 Mg Tablet) 8.6 mg PO BEDTIME [facility] Last Admin: 01/03/22 22:31 Dose: Not Given Documented by: Trazodone HCl (Trazodone Hcl 50 Mg Tablet) 50 mg PO BEDTIME PRN PRN Reason: Insomnia Last Admin: 01/03/22 23:35 Dose: 50 mg Documented by: Trolamine Salicylate/Aloe Vera (Trolamine Salicylate 10%/Aloe Cream 35.4 Gm) 1 appl TOPICAL TID PRN PRN Reason: neck pain Last Admin: 12/08/21 14:54 Dose: 1 appl Documented by: Allergies Allergies Allergy/AdvReac Type Severity Reaction Status Date / Time No Known Allergies Allergy Unverified 05/01/20 19:42 [No Known Allergies*] Assessment & Plan Assessment & Plan (1) Schizophrenia, paranoid, chronic with acute exacerbation: Status: Acute Code(s): F20.0 - Paranoid schizophrenia (2) Hypertension: Status: Acute Code(s): I10 - Essential (primary) hypertension Plan Elderly female with a long history of schizoaffective disorder bipolar type who was admitted into the facility for exacerbation of psychosis and mood lability. The patient is on Clozaril and apparently she has not been fully compliant with treatment. 11/21 slipped, hit head on 11/20, head CT reviewed and unremarkable Plan 1. The patient at this moment is on 3 psychotics, Clozaril , Haldol and Invega Sustenna. 2. Zyprexa 5 mg IM p.r.n. the patient refuses Clozaril. 3. Increase Clozaril since the patient does not have side effects, up to 600 mg a day 4. Keep Haldol up to 5 mg p.o. b.i.d. to target psychosis 5. increase [place] 300 mg p.o. b.i.d. 6. [place] level for next Tuesday01/03/2022: No changes to team treatment plan. Noted lithium level after the weekend. 01/04/2022 Encourage med compliance patient referred to rest setting continue plan of care I spent minutes with the patient and/or on the patient floor today, greater than?50% of which was spent counseling/coordinating care. Reason for contiued inpatient stay Substantial Risk for: harm to self and med/psych decompensation
[2022-01-04] MEDS: cloZAPine 100 MG TABLET 200 MG PO (17:20)
[2022-01-04 21:35] VITALS: BP 114/79; PULSE 90; RESP 16; TEMP 36.4; O2SAT 98
[2022-01-04] MEDS: Mirtazapine 15 MG TABLET PO (21:47)
[2022-01-04] MEDS: cloZAPine 100 MG TABLET 300 MG PO (21:47)
[2022-01-04] MEDS: Desmopressin Acetate 0.2 MG TABLET PO (21:47)
[2022-01-05] MEDS: traZODone HCL 50 MG TABLET PO (00:37)
[2022-01-05] MEDS: hydrOXYzine HCL 25 MG TABLET PO (00:37)
[2022-01-05 06:00] VITALS: BP 127/85; PULSE 87; TEMP 35.6; O2SAT 96
[2022-01-05 08:11] LABS: Neut%MD 64.5 %; Neutrophils Absolute Auto 3.7 x10*3/uL (2.0-8.3); WBCANC 5.7 X10*3/uL
[2022-01-05] MEDS: Desmopressin Acetate 0.2 MG TABLET PO ×2 (08:41→20:29)
[2022-01-05] MEDS: Lithium Carbonate 300 MG TABLET PO (08:42)
[2022-01-05] MEDS: HaloperidoL 5 MG TABLET PO ×2 (08:42→20:29)
[2022-01-05] MEDS: Apixaban 5 MG TABLET PO ×2 (08:42→20:28)
[2022-01-05] MEDS: Docusate Sodium 100 MG CAPSULE PO ×2 (08:42→20:29)
[2022-01-05] MEDS: cloZAPine 100 MG TABLET PO (08:42)
[2022-01-05] MEDS: Benztropine Mesylate 1 MG TABLET PO ×2 (08:42→20:28)
[2022-01-05] MEDS: hydroCHLOROthiazide 25 MG TABLET PO (08:42)
--- NOTE | 2022-01-05 14:48 | P.PNPSI_ITS ---
Subjective Subjective Date of Service: 01/05/22 Reason For Visit: psychotic disorder Subjective Notes: Conditional Voluntary Interim History: The nursing staff reported that last night the patient was compliant with her medications she looks slightly calmer than before, she slept last night well. On interview the patient reports that she still hearing voices but she feels content with current medications. The director social welfare reported that she is going to be assessed by another facility on Tuesday will have a bed for her early next week Mental Status Exam Mental Status Exam Patient Appearance: Disheveled Patient Orientation: Person Level of Consciousness: Awake Patient Behavior: Cooperative and Passive Mood Description: Withdrawn and Labile Affect Description: Constricted Patient Cognition Impaired: Yes Ability to Follow Directions: Good Speech Pattern: Clear Memory Description: Intact Hallucinations: Auditory Delusions: Paranoid Ideation Thought Process: Evasive Thought Content: positive for [place] and positive for Poverty of Content Judgement: Fair Diagnostics Vital Signs (24Hr): Vital Signs - 24 hr 01/04/22 21:35 01/05/22 06:00 Temperature 97.6 F 96.1 F L Pulse Rate 90 87 Respiratory Rate 16 Blood Pressure 114/79 127/85 Pulse Oximetry 98 96 BMI result Body Mass Index 26.8 Labs Results: 10/26/21 07:50 12/24/21 13:18 Labs: Laboratory Results - last 48 hr 01/05/22 07:54 Absolute Neuts (auto) 3.7 Imaging Radiology Impressions: ITS Impressions Head CT 10/08/21 15:16 IMPRESSION: No acute intracranial pathology. Head CT 10/09/21 13:54 IMPRESSION: No acute intracranial pathology. Pelvic/Transvag US 10/13/21 09:24 IMPRESSION: Abnormally thickened endometrium for a postmenopausal patient measuring 0.9 cm. 3 x 2.7 x 3.7 cm mass in the posterior cervix. This may represent a fibroid. Slightly thickened trabeculated bladder wall. Head CT 10/20/21 08:18 IMPRESSION: No acute intracranial pathology. This critical result was discussed with Dr. Chu at 8:30 hours on 10/20/2021. It was ascertained that the content and urgency of the report was understood at the time of direct communication. Head CT 11/20/21 19:29 IMPRESSION: No acute intracranial pathology. Medications Medications Current Medications Acetaminophen (Acetaminophen 325 Mg Tablet) 650 mg PO Q6H PRN PRN Reason: Headache/Pain Mild Scale (1-3) Last Admin: 12/13/21 21:56 Dose: 650 mg Documented by: Al Hydroxide/Mg Hydroxide (Magnesium Hydrox/Alum Hydrox 30 Ml Oral.Susp) 30 ml PO Q6H PRN PRN Reason: Heartburn/Nausea Apixaban (Apixaban 5 Mg Tablet) 5 mg PO BID [facility] Last Admin: 01/05/22 08:42 Dose: 5 mg Documented by: Benztropine Mesylate (Benztropine Mesylate 1 Mg Tablet) 1 mg PO BID [facility] Last Admin: 01/05/22 08:42 Dose: 1 mg Documented by: Bisacodyl (Bisacodyl 10 Mg Supp.Rect) 10 mg [place] DAILY PRN PRN Reason: Constipation Last Admin: 12/16/21 04:01 Dose: 10 mg Documented by: Clozapine (Clozapine 100 Mg Tablet) 100 mg PO DAILY [facility] Last Admin: 01/05/22 08:42 Dose: 100 mg Documented by: Clozapine (Clozapine 100 Mg Tablet) 200 mg PO DAILY@1700 [facility] Last Admin: 01/04/22 17:20 Dose: 200 mg Documented by: Clozapine (Clozapine 100 Mg Tablet) 300 mg PO BEDTIME [facility] Last Admin: 01/04/22 21:47 Dose: 300 mg Documented by: Desmopressin Acetate (Desmopressin Acetate 0.2 Mg Tablet) 0.2 mg PO BID [facility] Last Admin: 01/05/22 08:41 Dose: 0.2 mg Documented by: Docusate Sodium (Docusate Sodium 100 Mg Capsule) 100 mg PO BEDTIME [facility] Last Admin: 01/04/22 22:18 Dose: Not Given Documented by: Docusate Sodium (Docusate Sodium 100 Mg Capsule) 100 mg PO BID [facility] Last Admin: 01/05/22 08:42 Dose: 100 mg Documented by: Haloperidol (Haloperidol 5 Mg Tablet) 5 mg PO BID [facility] Last Admin: 01/05/22 08:42 Dose: 5 mg Documented by: Hydrochlorothiazide (Hydrochlorothiazide 25 Mg Tablet) 25 mg PO DAILY [facility]; Protocol Last Admin: 01/05/22 08:42 Dose: 25 mg Documented by: Hydroxyzine HCl (Hydroxyzine Hcl 25 Mg Tablet) 25 mg PO BEDTIME PRN PRN Reason: Anxiety Last Admin: 01/05/22 00:37 Dose: 25 mg Documented by: Hydroxyzine HCl (Hydroxyzine Hcl 25 Mg Tablet) 25 mg PO BID PRN PRN Reason: Anxiety Last Admin: 12/23/21 09:41 Dose: 25 mg Documented by: [place] Carbonate ([place] Carbonate 300 Mg Tablet) 300 mg PO BID [facility] Last Admin: 01/05/22 08:42 Dose: 300 mg Documented by: Loperamide HCl (Loperamide Hcl 2 Mg Capsule) 4 mg PO Q4H PRN PRN Reason: Diarrhea Last Admin: 11/01/21 17:04 Dose: 4 mg Documented by: Magnesium Hydroxide (Milk Of Magnesia 30 Ml Oral.Susp) 30 ml PO DAILY PRN PRN Reason: Constipation Last Admin: 12/19/21 14:32 Dose: 30 ml Documented by: Mirtazapine (Mirtazapine 15 Mg Tablet) 15 mg PO BEDTIME [facility] Last Admin: 01/04/22 21:47 Dose: 15 mg Documented by: Olanzapine (Olanzapine 10 Mg Vial) 5 mg IM TID PRN PRN Reason: Psychosis Last Admin: 01/03/22 18:12 Dose: 5 mg Documented by: Polyethylene Glycol (Polyethylene Glycol 3350 17 Gm Powd.Pack) 17 gm PO BID [facility] Last Admin: 01/05/22 08:43 Dose: Not Given Documented by: Potassium Chloride (Potassium Chloride Er 10 Meq Capsule.Er) 40 meq PO BID [facility] Last Admin: 01/05/22 08:46 Dose: Not Given Documented by: Senna (Sennosides 8.6 Mg Tablet) 8.6 mg PO BEDTIME [facility] Last Admin: 01/04/22 22:19 Dose: Not Given Documented by: Trazodone HCl (Trazodone Hcl 50 Mg Tablet) 50 mg PO BEDTIME PRN PRN Reason: Insomnia Last Admin: 01/05/22 00:37 Dose: 50 mg Documented by: Trolamine Salicylate/Aloe Vera (Trolamine Salicylate 10%/Aloe Cream 35.4 Gm) 1 appl TOPICAL TID PRN PRN Reason: neck pain Last Admin: 12/08/21 14:54 Dose: 1 appl Documented by: Allergies Allergies Allergy/AdvReac Type Severity Reaction Status Date / Time No Known Allergies Allergy Unverified 05/01/20 19:42 [No Known Allergies*] Assessment & Plan Assessment & Plan (1) Schizophrenia, paranoid, chronic with acute exacerbation: Status: Acute Code(s): F20.0 - Paranoid schizophrenia (2) Hypertension: Status: Acute Code(s): I10 - Essential (primary) hypertension Plan Elderly female with a long history of schizoaffective disorder bipolar type who was admitted into the facility for exacerbation of psychosis and mood lability. The patient is on Clozaril and apparently she has not been fully compliant with treatment. 11/21 slipped, hit head on 11/20, head CT reviewed and unremarkable Plan 1. The patient at this moment is on 3 psychotics, Clozaril , Haldol and Invega Sustenna. 2. Zyprexa 5 mg IM p.r.n. the patient refuses Clozaril. 3. keep same treatment. I spent ___20___ minutes with the patient and/or on the patient floor today, greater than?50% of which was spent counseling/coordinating care. Reason for contiued inpatient stay Substantial Risk for: inability to function, rapid decompensation and med/psych decompensation
[2022-01-05] MEDS: cloZAPine 100 MG TABLET 200 MG PO (17:09)
[2022-01-05 18:00] VITALS: BP 125/58; PULSE 92; RESP 18; TEMP 36.4; O2SAT 96
[2022-01-05] MEDS: cloZAPine 100 MG TABLET 300 MG PO (20:28)
[2022-01-05] MEDS: Mirtazapine 15 MG TABLET PO (20:29)
[2022-01-05] MEDS: Sennosides 8.6 MG TABLET PO (20:30)
[2022-01-05] MEDS: Lithium Carbonate 300 MG TABLET 450 MG PO (20:31)
[2022-01-05] MEDS: polyethylene glycoL 3350 17 GM POWD.PACK PO (20:32)
[2022-01-06 06:00] VITALS: BP 107/54; PULSE 85; RESP 16; TEMP 36.4; O2SAT 92
[2022-01-06] MEDS: OLANZapine 10 MG VIAL 5 MG IM ×3 (11:02→20:53)
[2022-01-06] MEDS: Milk of Magnesia 30 ML ORAL.SUSP PO (12:51)
--- NOTE | 2022-01-06 15:32 | P.PNPSI_ITS ---
Subjective Subjective Date of Service: 01/06/22 Reason For Visit: psychotic disorder Subjective Notes: Conditional Voluntary Interim History: The nursing staff reported the patient has been compliant with medications with a lot of encouragement. She was seen in the common areas watching TV. She slept 7 hours. On interview the patient reports that she does not want to make her medications changed and she wants to continue taking lithium. Mental Status Exam Mental Status Exam Patient Appearance: Appropriate Patient Orientation: Person and Situation Level of Consciousness: Awake Patient Behavior: Guarded and Passive Mood Description: Withdrawn Affect Description: Labile Patient Cognition Impaired: Yes Ability to Follow Directions: Fair Speech Pattern: Clear Hallucinations: Auditory Delusions: Paranoid Ideation and Grandiose Thought Process: Illogical Thought Content: positive for [place] and positive for Poverty of Content Judgement: Fair Diagnostics Vital Signs (24Hr): Vital Signs - 24 hr 01/05/22 18:00 01/06/22 06:00 Temperature 97.6 F 97.6 F Pulse Rate 92 85 Respiratory Rate 18 16 Blood Pressure 125/58 L 107/54 L Pulse Oximetry 96 92 BMI result Body Mass Index 26.8 Labs Results: 10/26/21 07:50 12/24/21 13:18 Labs: Laboratory Results - last 48 hr 01/05/22 07:54 Absolute Neuts (auto) 3.7 Imaging Radiology Impressions: ITS Impressions Head CT 10/08/21 15:16 IMPRESSION: No acute intracranial pathology. Head CT 10/09/21 13:54 IMPRESSION: No acute intracranial pathology. Pelvic/Transvag US 10/13/21 09:24 IMPRESSION: Abnormally thickened endometrium for a postmenopausal patient measuring 0.9 cm. 3 x 2.7 x 3.7 cm mass in the posterior cervix. This may represent a fibroid. Slightly thickened trabeculated bladder wall. Head CT 10/20/21 08:18 IMPRESSION: No acute intracranial pathology. This critical result was discussed with Dr. Chu at 8:30 hours on 10/20/2021. It was ascertained that the content and urgency of the report was understood at the time of direct communication. Head CT 11/20/21 19:29 IMPRESSION: No acute intracranial pathology. Medications Medications Current Medications Acetaminophen (Acetaminophen 325 Mg Tablet) 650 mg PO Q6H PRN PRN Reason: Headache/Pain Mild Scale (1-3) Last Admin: 12/13/21 21:56 Dose: 650 mg Documented by: Al Hydroxide/Mg Hydroxide (Magnesium Hydrox/Alum Hydrox 30 Ml Oral.Susp) 30 ml PO Q6H PRN PRN Reason: Heartburn/Nausea Apixaban (Apixaban 5 Mg Tablet) 5 mg PO BID [facility] Last Admin: 01/06/22 10:48 Dose: Not Given Documented by: Benztropine Mesylate (Benztropine Mesylate 1 Mg Tablet) 1 mg PO BID [facility] Last Admin: 01/06/22 11:10 Dose: Not Given Documented by: Bisacodyl (Bisacodyl 10 Mg Supp.Rect) 10 mg [place] DAILY PRN PRN Reason: Constipation Last Admin: 12/16/21 04:01 Dose: 10 mg Documented by: Clozapine (Clozapine 100 Mg Tablet) 100 mg PO DAILY [facility] Last Admin: 01/06/22 11:10 Dose: Not Given Documented by: Clozapine (Clozapine 100 Mg Tablet) 200 mg PO DAILY@1700 [facility] Last Admin: 01/05/22 17:09 Dose: 200 mg Documented by: Clozapine (Clozapine 100 Mg Tablet) 300 mg PO BEDTIME [facility] Last Admin: 01/05/22 20:28 Dose: 300 mg Documented by: Desmopressin Acetate (Desmopressin Acetate 0.2 Mg Tablet) 0.2 mg PO BID [facility] Last Admin: 01/06/22 11:10 Dose: Not Given Documented by: Docusate Sodium (Docusate Sodium 100 Mg Capsule) 100 mg PO BEDTIME [facility] Last Admin: 01/05/22 20:29 Dose: 100 mg Documented by: Docusate Sodium (Docusate Sodium 100 Mg Capsule) 100 mg PO BID [facility] Last Admin: 01/06/22 11:10 Dose: Not Given Documented by: Haloperidol (Haloperidol 5 Mg Tablet) 5 mg PO BID [facility] Last Admin: 01/06/22 11:09 Dose: Not Given Documented by: Hydrochlorothiazide (Hydrochlorothiazide 25 Mg Tablet) 25 mg PO DAILY [facility]; Protocol Last Admin: 01/06/22 11:09 Dose: Not Given Documented by: Hydroxyzine HCl (Hydroxyzine Hcl 25 Mg Tablet) 25 mg PO BEDTIME PRN PRN Reason: Anxiety Last Admin: 01/05/22 00:37 Dose: 25 mg Documented by: Hydroxyzine HCl (Hydroxyzine Hcl 25 Mg Tablet) 25 mg PO BID PRN PRN Reason: Anxiety Last Admin: 12/23/21 09:41 Dose: 25 mg Documented by: [place] Carbonate ([place] Carbonate 300 Mg Tablet) 450 mg PO BID [facility] Last Admin: 01/06/22 11:09 Dose: Not Given Documented by: Loperamide HCl (Loperamide Hcl 2 Mg Capsule) 4 mg PO Q4H PRN PRN Reason: Diarrhea Last Admin: 11/01/21 17:04 Dose: 4 mg Documented by: Magnesium Hydroxide (Milk Of Magnesia 30 Ml Oral.Susp) 30 ml PO DAILY PRN PRN Reason: Constipation Last Admin: 01/06/22 12:51 Dose: 30 ml Documented by: Mirtazapine (Mirtazapine 15 Mg Tablet) 15 mg PO BEDTIME [facility] Last Admin: 01/05/22 20:29 Dose: 15 mg Documented by: Olanzapine (Olanzapine 10 Mg Vial) 5 mg IM TID PRN PRN Reason: Psychosis Last Admin: 01/06/22 11:02 Dose: 5 mg Documented by: Polyethylene Glycol (Polyethylene Glycol 3350 17 Gm Powd.Pack) 17 gm PO BID [facility] Last Admin: 01/06/22 11:09 Dose: Not Given Documented by: Potassium Chloride (Potassium Chloride Er 10 Meq Capsule.Er) 40 meq PO BID [facility] Last Admin: 01/06/22 11:09 Dose: Not Given Documented by: Senna (Sennosides 8.6 Mg Tablet) 8.6 mg PO BEDTIME [facility] Last Admin: 01/05/22 20:30 Dose: 8.6 mg Documented by: Trazodone HCl (Trazodone Hcl 50 Mg Tablet) 50 mg PO BEDTIME PRN PRN Reason: Insomnia Last Admin: 01/05/22 00:37 Dose: 50 mg Documented by: Trolamine Salicylate/Aloe Vera (Trolamine Salicylate 10%/Aloe Cream 35.4 Gm) 1 appl TOPICAL TID PRN PRN Reason: neck pain Last Admin: 12/08/21 14:54 Dose: 1 appl Documented by: Allergies Allergies Allergy/AdvReac Type Severity Reaction Status Date / Time No Known Allergies Allergy Unverified 05/01/20 19:42 [No Known Allergies*] Assessment & Plan Assessment & Plan (1) Schizophrenia, paranoid, chronic with acute exacerbation: Status: Acute Code(s): F20.0 - Paranoid schizophrenia (2) Hypertension: Status: Acute Code(s): I10 - Essential (primary) hypertension Plan Elderly female with a long history of schizoaffective disorder bipolar type who was admitted into the facility for exacerbation of psychosis and mood lability. The patient is on Clozaril and apparently she has not been fully compliant with treatment. 11/21 slipped, hit head on 11/20, head CT reviewed and unremarkable Plan 1. The patient at this moment is on 3 psychotics, Clozaril , Haldol and Invega Sustenna. 2. Zyprexa 5 mg IM p.r.n. the patient refuses Clozaril. 3. keep same treatment. I spent __20____ minutes with the patient and/or on the patient floor today, greater than?50% of which was spent counseling/coordinating care. Reason for contiued inpatient stay Substantial Risk for: inability to function, rapid decompensation and med/psych decompensation
[2022-01-06 18:00] VITALS: BP 117/58; PULSE 89; RESP 18; TEMP 36.3; O2SAT 100
[2022-01-06] MEDS: Apixaban 5 MG TABLET PO (21:30)
[2022-01-06] MEDS: Desmopressin Acetate 0.2 MG TABLET PO (21:31)
[2022-01-06] MEDS: Docusate Sodium 100 MG CAPSULE PO (21:31)
[2022-01-06] MEDS: Sennosides 8.6 MG TABLET PO (21:31)
[2022-01-06] MEDS: Mirtazapine 15 MG TABLET PO (21:31)
[2022-01-06] MEDS: HaloperidoL 5 MG TABLET PO (21:32)
[2022-01-06] MEDS: Benztropine Mesylate 1 MG TABLET PO (21:39)
[2022-01-07 07:10] VITALS: BP 98/51; PULSE 73; RESP 14; TEMP 36.7; O2SAT 95
[2022-01-07] MEDS: HaloperidoL 5 MG TABLET PO ×2 (11:21→20:16)
[2022-01-07] MEDS: Apixaban 5 MG TABLET PO ×2 (11:21→20:16)
[2022-01-07] MEDS: Docusate Sodium 100 MG CAPSULE PO ×2 (11:21→20:16)
[2022-01-07] MEDS: hydroCHLOROthiazide 25 MG TABLET PO (11:21)
[2022-01-07] MEDS: Desmopressin Acetate 0.2 MG TABLET PO ×2 (11:22→20:16)
[2022-01-07] MEDS: Lithium Carbonate 300 MG TABLET 450 MG PO ×2 (11:22→20:18)
[2022-01-07] MEDS: cloZAPine 100 MG TABLET PO (11:22)
[2022-01-07] MEDS: Benztropine Mesylate 1 MG TABLET PO ×2 (11:22→20:16)
[2022-01-07] MEDS: polyethylene glycoL 3350 17 GM POWD.PACK PO ×2 (11:24→20:13)
--- NOTE | 2022-01-07 16:39 | HO.PSYCHPN ---
Subjective Subjective Date of Service: 01/07/22 Reason For Visit: psychotic disorder Subjective Notes: Conditional Voluntary Interim History: The nursing staff reported that the patient didn't sleep well last night, she was agitated and refused medications. She needed to get Zyprexa IM. It is clear that the patient also has a cognitive disorder. On interview, she was pleasantly confused and delusional but redirectable. Mental Status Exam Mental Status Exam Patient Appearance: Appropriate Patient Orientation: Person and Situation Level of Consciousness: Restless and Inappropriate Patient Behavior: Guarded Mood Description: Withdrawn Affect Description: Labile Patient Cognition Impaired: Yes Ability to Follow Directions: Fair Speech Pattern: Rambling Hallucinations: Auditory Delusions: Paranoid Ideation and Grandiose Thought Process: Illogical Thought Content: positive for [place], positive for [place]um[place] and positive for Poverty of Content Judgement: Poor Diagnostics Vital Signs (24Hr): Vital Signs - 24 hr 01/06/22 18:00 01/07/22 07:10 Temperature 97.4 F 98.1 F Pulse Rate 89 73 Respiratory Rate 18 14 Blood Pressure 117/58 L 98/51 L Pulse Oximetry 100 95 BMI result Body Mass Index 26.8 Labs Results: 10/26/21 07:50 12/24/21 13:18 Imaging Radiology Impressions: ITS Impressions Head CT 10/08/21 15:16 IMPRESSION: No acute intracranial pathology. Head CT 10/09/21 13:54 IMPRESSION: No acute intracranial pathology. Pelvic/Transvag US 10/13/21 09:24 IMPRESSION: Abnormally thickened endometrium for a postmenopausal patient measuring 0.9 cm. 3 x 2.7 x 3.7 cm mass in the posterior cervix. This may represent a fibroid. Slightly thickened trabeculated bladder wall. Head CT 10/20/21 08:18 IMPRESSION: No acute intracranial pathology. This critical result was discussed with Dr. Chu at 8:30 hours on 10/20/2021. It was ascertained that the content and urgency of the report was understood at the time of direct communication. Head CT 11/20/21 19:29 IMPRESSION: No acute intracranial pathology. Medications Medications Current Medications Acetaminophen (Acetaminophen 325 Mg Tablet) 650 mg PO Q6H PRN PRN Reason: Headache/Pain Mild Scale (1-3) Last Admin: 12/13/21 21:56 Dose: 650 mg Documented by: Al Hydroxide/Mg Hydroxide (Magnesium Hydrox/Alum Hydrox 30 Ml Oral.Susp) 30 ml PO Q6H PRN PRN Reason: Heartburn/Nausea Apixaban (Apixaban 5 Mg Tablet) 5 mg PO BID [facility] Last Admin: 01/07/22 11:21 Dose: 5 mg Documented by: Benztropine Mesylate (Benztropine Mesylate 1 Mg Tablet) 1 mg PO BID [facility] Last Admin: 01/07/22 11:22 Dose: 1 mg Documented by: Bisacodyl (Bisacodyl 10 Mg Supp.Rect) 10 mg [place] DAILY PRN PRN Reason: Constipation Last Admin: 12/16/21 04:01 Dose: 10 mg Documented by: Clozapine (Clozapine 100 Mg Tablet) 100 mg PO DAILY [facility] Last Admin: 01/07/22 11:22 Dose: 100 mg Documented by: Clozapine (Clozapine 100 Mg Tablet) 200 mg PO DAILY@1700 [facility] Last Admin: 01/06/22 18:42 Dose: Not Given Documented by: Clozapine (Clozapine 100 Mg Tablet) 300 mg PO BEDTIME [facility] Last Admin: 01/06/22 21:36 Dose: Not Given Documented by: Desmopressin Acetate (Desmopressin Acetate 0.2 Mg Tablet) 0.2 mg PO BID [facility] Last Admin: 01/07/22 11:22 Dose: 0.2 mg Documented by: Docusate Sodium (Docusate Sodium 100 Mg Capsule) 100 mg PO BEDTIME [facility] Last Admin: 01/06/22 21:31 Dose: 100 mg Documented by: Docusate Sodium (Docusate Sodium 100 Mg Capsule) 100 mg PO BID [facility] Last Admin: 01/07/22 11:21 Dose: 100 mg Documented by: Haloperidol (Haloperidol 5 Mg Tablet) 5 mg PO BID [facility] Last Admin: 01/07/22 11:21 Dose: 5 mg Documented by: Hydrochlorothiazide (Hydrochlorothiazide 25 Mg Tablet) 25 mg PO DAILY [facility]; Protocol Last Admin: 01/07/22 11:21 Dose: 25 mg Documented by: Hydroxyzine HCl (Hydroxyzine Hcl 25 Mg Tablet) 25 mg PO BEDTIME PRN PRN Reason: Anxiety Last Admin: 01/05/22 00:37 Dose: 25 mg Documented by: Hydroxyzine HCl (Hydroxyzine Hcl 25 Mg Tablet) 25 mg PO BID PRN PRN Reason: Anxiety Last Admin: 12/23/21 09:41 Dose: 25 mg Documented by: [place] Carbonate ([place] Carbonate 300 Mg Tablet) 450 mg PO BID [facility] Last Admin: 01/07/22 11:22 Dose: 450 mg Documented by: Loperamide HCl (Loperamide Hcl 2 Mg Capsule) 4 mg PO Q4H PRN PRN Reason: Diarrhea Last Admin: 11/01/21 17:04 Dose: 4 mg Documented by: Magnesium Hydroxide (Milk Of Magnesia 30 Ml Oral.Susp) 30 ml PO DAILY PRN PRN Reason: Constipation Last Admin: 01/06/22 12:51 Dose: 30 ml Documented by: Mirtazapine (Mirtazapine 15 Mg Tablet) 15 mg PO BEDTIME [facility] Last Admin: 01/06/22 21:31 Dose: 15 mg Documented by: Olanzapine (Olanzapine 10 Mg Vial) 5 mg IM TID PRN PRN Reason: Psychosis Last Admin: 01/06/22 20:53 Dose: 5 mg Documented by: Polyethylene Glycol (Polyethylene Glycol 3350 17 Gm Powd.Pack) 17 gm PO BID [facility] Last Admin: 01/07/22 11:24 Dose: 17 gm Documented by: Potassium Chloride (Potassium Chloride Er 10 Meq Capsule.Er) 40 meq PO BID [facility] Last Admin: 01/07/22 11:23 Dose: Not Given Documented by: Senna (Sennosides 8.6 Mg Tablet) 8.6 mg PO BEDTIME [facility] Last Admin: 01/06/22 21:31 Dose: 8.6 mg Documented by: Trazodone HCl (Trazodone Hcl 50 Mg Tablet) 50 mg PO BEDTIME PRN PRN Reason: Insomnia Last Admin: 01/05/22 00:37 Dose: 50 mg Documented by: Trolamine Salicylate/Aloe Vera (Trolamine Salicylate 10%/Aloe Cream 35.4 Gm) 1 appl TOPICAL TID PRN PRN Reason: neck pain Last Admin: 12/08/21 14:54 Dose: 1 appl Documented by: Allergies Allergies Allergy/AdvReac Type Severity Reaction Status Date / Time No Known Allergies Allergy Unverified 05/01/20 19:42 [No Known Allergies*] Assessment & Plan Assessment & Plan (1) Schizophrenia, paranoid, chronic with acute exacerbation: Status: Acute Code(s): F20.0 - Paranoid schizophrenia (2) Hypertension: Status: Acute Code(s): I10 - Essential (primary) hypertension (3) Dementia: Status: Acute Code(s): F03.90 - Unspecified dementia without behavioral disturbance Plan Elderly female with a long history of schizoaffective disorder bipolar type who was admitted into the facility for exacerbation of psychosis and mood lability. The patient is on Clozaril and apparently she has not been fully compliant with treatment. 11/21 slipped, hit head on 11/20, head CT reviewed and unremarkable. We did a MOCA and she is technically demented at this moment Plan 1. The patient at this moment is on 3 psychotics, Clozaril , Haldol and Invega Sustenna. 2. Haldol 5 mg IM if the patient refuses Clozaril. 3. keep same treatment. I spent ___20___ minutes with the patient and/or on the patient floor today, greater than?50% of which was spent counseling/coordinating care. Reason for contiued inpatient stay Substantial Risk for: inability to function, rapid decompensation and med/psych decompensation
[2022-01-07] MEDS: cloZAPine 100 MG TABLET 200 MG PO (17:30)
[2022-01-07 18:00] VITALS: BP 111/68; PULSE 90; RESP 15; TEMP 36.6; O2SAT 97
[2022-01-07] MEDS: cloZAPine 100 MG TABLET 300 MG PO (20:15)
[2022-01-07] MEDS: Sennosides 8.6 MG TABLET PO (20:17)
[2022-01-08 06:00] VITALS: BP 101/54; PULSE 91; RESP 16; TEMP 36.1; O2SAT 95
[2022-01-08] MEDS: OLANZapine 10 MG VIAL 5 MG IM (12:45)
--- NOTE | 2022-01-08 15:53 | HO.PSYCHPN ---
Subjective Subjective Date of Service: 01/08/22 Reason For Visit: psychotic disorder Subjective Notes: Conditional Voluntary Interim History: The nursing staff reported that the patient had out worse in the morning due to his auditory hallucinations. We needed to be her Zyprexa IM at noon since she refused her Clozaril in the after. On interview the patient remains psychotic but easily redirectable Mental Status Exam Mental Status Exam Patient Appearance: Appropriate Patient Orientation: Person and Situation Level of Consciousness: Awake Patient Behavior: Cooperative Mood Description: Withdrawn Affect Description: Labile Patient Cognition Impaired: Yes Ability to Follow Directions: Fair Speech Pattern: Clear Hallucinations: Auditory Delusions: Paranoid Ideation and Grandiose Thought Process: Illogical Thought Content: positive for [place] Judgement: Fair Diagnostics Vital Signs (24Hr): Vital Signs - 24 hr 01/07/22 18:00 01/08/22 06:00 Temperature 98 F 97 F Pulse Rate 90 91 Respiratory Rate 15 16 Blood Pressure 111/68 101/54 L Pulse Oximetry 97 95 BMI result Body Mass Index 26.8 Labs Results: 10/26/21 07:50 12/24/21 13:18 Imaging Radiology Impressions: ITS Impressions Head CT 10/08/21 15:16 IMPRESSION: No acute intracranial pathology. Head CT 10/09/21 13:54 IMPRESSION: No acute intracranial pathology. Pelvic/Transvag US 10/13/21 09:24 IMPRESSION: Abnormally thickened endometrium for a postmenopausal patient measuring 0.9 cm. 3 x 2.7 x 3.7 cm mass in the posterior cervix. This may represent a fibroid. Slightly thickened trabeculated bladder wall. Head CT 10/20/21 08:18 IMPRESSION: No acute intracranial pathology. This critical result was discussed with Dr. Chu at 8:30 hours on 10/20/2021. It was ascertained that the content and urgency of the report was understood at the time of direct communication. Head CT 11/20/21 19:29 IMPRESSION: No acute intracranial pathology. Medications Medications Current Medications Acetaminophen (Acetaminophen 325 Mg Tablet) 650 mg PO Q6H PRN PRN Reason: Headache/Pain Mild Scale (1-3) Last Admin: 12/13/21 21:56 Dose: 650 mg Documented by: Al Hydroxide/Mg Hydroxide (Magnesium Hydrox/Alum Hydrox 30 Ml Oral.Susp) 30 ml PO Q6H PRN PRN Reason: Heartburn/Nausea Apixaban (Apixaban 5 Mg Tablet) 5 mg PO BID [facility] Last Admin: 01/08/22 13:27 Dose: Not Given Documented by: Benztropine Mesylate (Benztropine Mesylate 1 Mg Tablet) 1 mg PO BID [facility] Last Admin: 01/08/22 13:27 Dose: Not Given Documented by: Bisacodyl (Bisacodyl 10 Mg Supp.Rect) 10 mg [place] DAILY PRN PRN Reason: Constipation Last Admin: 12/16/21 04:01 Dose: 10 mg Documented by: Clozapine (Clozapine 100 Mg Tablet) 100 mg PO DAILY [facility] Last Admin: 01/08/22 13:30 Dose: Not Given Documented by: Clozapine (Clozapine 100 Mg Tablet) 200 mg PO DAILY@1700 [facility] Last Admin: 01/07/22 17:30 Dose: 200 mg Documented by: Clozapine (Clozapine 100 Mg Tablet) 300 mg PO BEDTIME [facility] Last Admin: 01/07/22 20:15 Dose: 300 mg Documented by: Desmopressin Acetate (Desmopressin Acetate 0.2 Mg Tablet) 0.2 mg PO BID [facility] Last Admin: 01/08/22 13:30 Dose: Not Given Documented by: Docusate Sodium (Docusate Sodium 100 Mg Capsule) 100 mg PO BEDTIME [facility] Last Admin: 01/07/22 20:16 Dose: 100 mg Documented by: Docusate Sodium (Docusate Sodium 100 Mg Capsule) 100 mg PO BID [facility] Last Admin: 01/08/22 13:30 Dose: Not Given Documented by: Haloperidol (Haloperidol 5 Mg Tablet) 5 mg PO BID [facility] Last Admin: 01/08/22 13:30 Dose: Not Given Documented by: Haloperidol Lactate (Haloperidol Lactate 5 Mg/Ml Vial) 5 mg IM TID PRN PRN Reason: if patient refuses Clozaril Hydrochlorothiazide (Hydrochlorothiazide 25 Mg Tablet) 25 mg PO DAILY [facility]; Protocol Last Admin: 01/08/22 13:30 Dose: Not Given Documented by: Hydroxyzine HCl (Hydroxyzine Hcl 25 Mg Tablet) 25 mg PO BEDTIME PRN PRN Reason: Anxiety Last Admin: 01/05/22 00:37 Dose: 25 mg Documented by: Hydroxyzine HCl (Hydroxyzine Hcl 25 Mg Tablet) 25 mg PO BID PRN PRN Reason: Anxiety Last Admin: 12/23/21 09:41 Dose: 25 mg Documented by: [place] Carbonate ([place] Carbonate 300 Mg Tablet) 450 mg PO BID [facility] Last Admin: 01/08/22 13:30 Dose: Not Given Documented by: Loperamide HCl (Loperamide Hcl 2 Mg Capsule) 4 mg PO Q4H PRN PRN Reason: Diarrhea Last Admin: 11/01/21 17:04 Dose: 4 mg Documented by: Magnesium Hydroxide (Milk Of Magnesia 30 Ml Oral.Susp) 30 ml PO DAILY PRN PRN Reason: Constipation Last Admin: 01/06/22 12:51 Dose: 30 ml Documented by: Mirtazapine (Mirtazapine 15 Mg Tablet) 15 mg PO BEDTIME [facility] Last Admin: 01/08/22 13:31 Dose: Not Given Documented by: Polyethylene Glycol (Polyethylene Glycol 3350 17 Gm Powd.Pack) 17 gm PO BID [facility] Last Admin: 01/08/22 13:30 Dose: Not Given Documented by: Potassium Chloride (Potassium Chloride Er 10 Meq Capsule.Er) 40 meq PO BID [facility] Last Admin: 01/08/22 11:04 Dose: Not Given Documented by: Senna (Sennosides 8.6 Mg Tablet) 8.6 mg PO BEDTIME [facility] Last Admin: 01/07/22 20:17 Dose: 8.6 mg Documented by: Trazodone HCl (Trazodone Hcl 50 Mg Tablet) 50 mg PO BEDTIME PRN PRN Reason: Insomnia Last Admin: 01/05/22 00:37 Dose: 50 mg Documented by: Trolamine Salicylate/Aloe Vera (Trolamine Salicylate 10%/Aloe Cream 35.4 Gm) 1 appl TOPICAL TID PRN PRN Reason: neck pain Last Admin: 12/08/21 14:54 Dose: 1 appl Documented by: Allergies Allergies Allergy/AdvReac Type Severity Reaction Status Date / Time No Known Allergies Allergy Unverified 05/01/20 19:42 [No Known Allergies*] Assessment & Plan Assessment & Plan (1) Schizophrenia, paranoid, chronic with acute exacerbation: Status: Acute Code(s): F20.0 - Paranoid schizophrenia (2) Hypertension: Status: Acute Code(s): I10 - Essential (primary) hypertension (3) Dementia: Status: Acute Code(s): F03.90 - Unspecified dementia without behavioral disturbance Plan Elderly female with a long history of schizoaffective disorder bipolar type who was admitted into the facility for exacerbation of psychosis and mood lability. The patient is on Clozaril and apparently she has not been fully compliant with treatment. 11/21 slipped, hit head on 11/20, head CT reviewed and unremarkable. We did a MOCA and she is technically demented at this moment Plan 1. The patient at this moment is on 3 psychotics, Clozaril , Haldol and Invega Sustenna. 2. Haldol 5 mg IM if the patient refuses Clozaril. 3. keep same treatment. I spent __20____ minutes with the patient and/or on the patient floor today, greater than?50% of which was spent counseling/coordinating care. Reason for contiued inpatient stay Substantial Risk for: inability to function, rapid decompensation and med/psych decompensation
[2022-01-08] MEDS: Haloperidol Lactate 5 MG/ML VIAL IM (17:45)
[2022-01-08] MEDS: Apixaban 5 MG TABLET PO (20:45)
[2022-01-08] MEDS: Mirtazapine 15 MG TABLET PO (20:45)
[2022-01-08] MEDS: Benztropine Mesylate 1 MG TABLET PO (20:45)
[2022-01-08] MEDS: cloZAPine 100 MG TABLET 300 MG PO (20:45)
[2022-01-08] MEDS: HaloperidoL 5 MG TABLET PO (20:46)
[2022-01-08] MEDS: Desmopressin Acetate 0.2 MG TABLET PO (20:46)
[2022-01-08] MEDS: Lithium Carbonate 300 MG TABLET 450 MG PO (20:46)
[2022-01-08 21:30] VITALS: BP 109/56; PULSE 87; RESP 17; TEMP 36.6; O2SAT 96
[2022-01-09 06:00] VITALS: BP 113/60; PULSE 84; RESP 17; TEMP 37; O2SAT 94
--- NOTE | 2022-01-09 08:32 | P.PNPSI_ITS ---
Subjective Subjective Date of Service: 01/09/22 Reason For Visit: psychotic disorder Subjective Notes: Conditional Voluntary Interim History: The nursing staff reported the patient refused her medications adjusted and she used the last Zyprexa IM that we had. At night, she took all her medications. She slept until 515 in the morning. She was incontinent of urine. On interview the patient remains psychotic, at baseline and easily redirectable. She stated that she is not doing well, refused to do any changes on her medication regimen. Mental Status Exam Mental Status Exam Patient Appearance: Appropriate Patient Orientation: Person and Situation Level of Consciousness: Appropriate Patient Behavior: Guarded and Suspicious Mood Description: Withdrawn Affect Description: Constricted Patient Cognition Impaired: Yes Ability to Follow Directions: Fair Speech Pattern: Impoverished Hallucinations: Auditory Delusions: Paranoid Ideation and Grandiose Thought Process: Distracted and Evasive Thought Content: positive for [place] and positive for Poverty of Content Judgement: Fair Diagnostics Vital Signs (24Hr): Vital Signs - 24 hr 01/08/22 21:30 Temperature 97.9 F Pulse Rate 87 Respiratory Rate 17 Blood Pressure 109/56 L Pulse Oximetry 96 BMI result Body Mass Index 26.8 Labs Results: 10/26/21 07:50 12/24/21 13:18 Imaging Radiology Impressions: ITS Impressions Head CT 10/08/21 15:16 IMPRESSION: No acute intracranial pathology. Head CT 10/09/21 13:54 IMPRESSION: No acute intracranial pathology. Pelvic/Transvag US 10/13/21 09:24 IMPRESSION: Abnormally thickened endometrium for a postmenopausal patient measuring 0.9 cm. 3 x 2.7 x 3.7 cm mass in the posterior cervix. This may represent a fibroid. Slightly thickened trabeculated bladder wall. Head CT 10/20/21 08:18 IMPRESSION: No acute intracranial pathology. This critical result was discussed with Dr. Chu at 8:30 hours on 10/20/2021. It was ascertained that the content and urgency of the report was understood at the time of direct communication. Head CT 11/20/21 19:29 IMPRESSION: No acute intracranial pathology. Medications Medications Current Medications Acetaminophen (Acetaminophen 325 Mg Tablet) 650 mg PO Q6H PRN PRN Reason: Headache/Pain Mild Scale (1-3) Last Admin: 12/13/21 21:56 Dose: 650 mg Documented by: Al Hydroxide/Mg Hydroxide (Magnesium Hydrox/Alum Hydrox 30 Ml Oral.Susp) 30 ml PO Q6H PRN PRN Reason: Heartburn/Nausea Apixaban (Apixaban 5 Mg Tablet) 5 mg PO BID [facility] Last Admin: 01/08/22 20:45 Dose: 5 mg Documented by: Benztropine Mesylate (Benztropine Mesylate 1 Mg Tablet) 1 mg PO BID [facility] Last Admin: 01/08/22 20:45 Dose: 1 mg Documented by: Bisacodyl (Bisacodyl 10 Mg Supp.Rect) 10 mg [place] DAILY PRN PRN Reason: Constipation Last Admin: 12/16/21 04:01 Dose: 10 mg Documented by: Clozapine (Clozapine 100 Mg Tablet) 100 mg PO DAILY [facility] Last Admin: 01/08/22 13:30 Dose: Not Given Documented by: Clozapine (Clozapine 100 Mg Tablet) 200 mg PO DAILY@1700 [facility] Last Admin: 01/08/22 17:45 Dose: Not Given Documented by: Clozapine (Clozapine 100 Mg Tablet) 300 mg PO BEDTIME [facility] Last Admin: 01/08/22 20:45 Dose: 300 mg Documented by: Desmopressin Acetate (Desmopressin Acetate 0.2 Mg Tablet) 0.2 mg PO BID [facility] Last Admin: 01/08/22 20:46 Dose: 0.2 mg Documented by: Docusate Sodium (Docusate Sodium 100 Mg Capsule) 100 mg PO BEDTIME [facility] Last Admin: 01/08/22 22:21 Dose: Not Given Documented by: Docusate Sodium (Docusate Sodium 100 Mg Capsule) 100 mg PO BID [facility] Last Admin: 01/08/22 22:21 Dose: Not Given Documented by: Haloperidol (Haloperidol 5 Mg Tablet) 5 mg PO BID [facility] Last Admin: 01/08/22 20:46 Dose: 5 mg Documented by: Haloperidol Lactate (Haloperidol Lactate 5 Mg/Ml Vial) 5 mg IM TID PRN PRN Reason: if patient refuses Clozaril Last Admin: 01/08/22 17:45 Dose: 5 mg Documented by: Hydrochlorothiazide (Hydrochlorothiazide 25 Mg Tablet) 25 mg PO DAILY [facility]; Protocol Last Admin: 01/08/22 13:30 Dose: Not Given Documented by: Hydroxyzine HCl (Hydroxyzine Hcl 25 Mg Tablet) 25 mg PO BEDTIME PRN PRN Reason: Anxiety Last Admin: 01/05/22 00:37 Dose: 25 mg Documented by: Hydroxyzine HCl (Hydroxyzine Hcl 25 Mg Tablet) 25 mg PO BID PRN PRN Reason: Anxiety Last Admin: 12/23/21 09:41 Dose: 25 mg Documented by: [place] Carbonate ([place] Carbonate 300 Mg Tablet) 450 mg PO BID [facility] Last Admin: 01/08/22 20:46 Dose: 450 mg Documented by: Loperamide HCl (Loperamide Hcl 2 Mg Capsule) 4 mg PO Q4H PRN PRN Reason: Diarrhea Last Admin: 11/01/21 17:04 Dose: 4 mg Documented by: Magnesium Hydroxide (Milk Of Magnesia 30 Ml Oral.Susp) 30 ml PO DAILY PRN PRN Reason: Constipation Last Admin: 01/06/22 12:51 Dose: 30 ml Documented by: Mirtazapine (Mirtazapine 15 Mg Tablet) 15 mg PO BEDTIME [facility] Last Admin: 01/08/22 20:45 Dose: 15 mg Documented by: Polyethylene Glycol (Polyethylene Glycol 3350 17 Gm Powd.Pack) 17 gm PO BID [facility] Last Admin: 01/08/22 22:22 Dose: Not Given Documented by: Potassium Chloride (Potassium Chloride Er 10 Meq Capsule.Er) 40 meq PO BID [facility] Last Admin: 01/08/22 22:22 Dose: Not Given Documented by: Senna (Sennosides 8.6 Mg Tablet) 8.6 mg PO BEDTIME [facility] Last Admin: 01/08/22 22:21 Dose: Not Given Documented by: Trazodone HCl (Trazodone Hcl 50 Mg Tablet) 50 mg PO BEDTIME PRN PRN Reason: Insomnia Last Admin: 01/05/22 00:37 Dose: 50 mg Documented by: Trolamine Salicylate/Aloe Vera (Trolamine Salicylate 10%/Aloe Cream 35.4 Gm) 1 appl TOPICAL TID PRN PRN Reason: neck pain Last Admin: 12/08/21 14:54 Dose: 1 appl Documented by: Allergies Allergies Allergy/AdvReac Type Severity Reaction Status Date / Time No Known Allergies Allergy Unverified 05/01/20 19:42 [No Known Allergies*] Assessment & Plan Assessment & Plan (1) Schizophrenia, paranoid, chronic with acute exacerbation: Status: Acute Code(s): F20.0 - Paranoid schizophrenia (2) Hypertension: Status: Acute Code(s): I10 - Essential (primary) hypertension (3) Dementia: Status: Acute Code(s): F03.90 - Unspecified dementia without behavioral disturbance Plan Elderly female with a long history of schizoaffective disorder bipolar type who was admitted into the facility for exacerbation of psychosis and mood lability. The patient is on Clozaril and apparently she has not been fully compliant with treatment. 11/21 slipped, hit head on 11/20, head CT reviewed and unremarkable. We did a MOCA and she is technically demented at this moment Plan 1. The patient at this moment is on 3 psychotics, Clozaril , Haldol and Invega Sustenna. 2. Haldol 5 mg IM if the patient refuses Clozaril. 3. keep same treatment. I spent __20____ minutes with the patient and/or on the patient floor today, greater than?50% of which was spent counseling/coordinating care. Reason for contiued inpatient stay Substantial Risk for: inability to function, rapid decompensation and med/psych decompensation
[2022-01-09] MEDS: Lithium Carbonate 300 MG TABLET 450 MG PO ×2 (08:38→20:32)
[2022-01-09] MEDS: hydroCHLOROthiazide 25 MG TABLET PO (08:38)
[2022-01-09] MEDS: Docusate Sodium 100 MG CAPSULE PO (08:39)
[2022-01-09] MEDS: Benztropine Mesylate 1 MG TABLET PO ×2 (08:39→20:32)
[2022-01-09] MEDS: HaloperidoL 5 MG TABLET PO ×2 (08:39→20:32)
[2022-01-09] MEDS: cloZAPine 100 MG TABLET PO (08:39)
[2022-01-09] MEDS: Desmopressin Acetate 0.2 MG TABLET PO ×2 (08:39→20:32)
[2022-01-09] MEDS: Apixaban 5 MG TABLET PO ×2 (08:39→20:32)
[2022-01-09] MEDS: cloZAPine 100 MG TABLET 200 MG PO (16:48)
[2022-01-09 19:33] VITALS: BP 107/52; PULSE 87; RESP 16; TEMP 36.6; O2SAT 98
[2022-01-09] MEDS: cloZAPine 100 MG TABLET 300 MG PO (20:31)
[2022-01-09] MEDS: Mirtazapine 15 MG TABLET PO (20:32)
[2022-01-10 06:00] VITALS: BP 119/62; PULSE 95; RESP 16; TEMP 36.6; O2SAT 97
[2022-01-10] MEDS: hydroCHLOROthiazide 25 MG TABLET PO (08:46)
[2022-01-10] MEDS: Apixaban 5 MG TABLET PO ×2 (08:46→20:59)
[2022-01-10] MEDS: Desmopressin Acetate 0.2 MG TABLET PO ×2 (08:46→20:59)
[2022-01-10] MEDS: HaloperidoL 5 MG TABLET PO ×2 (08:46→20:59)
[2022-01-10] MEDS: Lithium Carbonate 300 MG TABLET 450 MG PO ×2 (08:47→21:00)
[2022-01-10] MEDS: cloZAPine 100 MG TABLET PO (08:47)
[2022-01-10] MEDS: Docusate Sodium 100 MG CAPSULE PO (08:47)
[2022-01-10] MEDS: Benztropine Mesylate 1 MG TABLET PO ×2 (08:47→21:00)
--- NOTE | 2022-01-10 10:41 | P.PNPSI_ITS ---
Subjective Subjective Date of Service: 01/10/22 Reason For Visit: psychotic disorder Subjective Notes: Conditional Voluntary Interim History: The nursing staff reported the patient slept for 9 alone, she to her medications at night. She has never very well. On interview the patient was usual pleasantly psychotic but redirectable. Mental Status Exam Mental Status Exam Patient Appearance: Well Grooomed Patient Orientation: Person Level of Consciousness: Awake Patient Behavior: Cooperative Mood Description: Withdrawn Affect Description: Labile Patient Cognition Impaired: Yes Ability to Follow Directions: Good Speech Pattern: Clear Hallucinations: Auditory Delusions: Paranoid Ideation Perceptual Disturbances: Hallucinations Thought Process: Distracted Thought Content: positive for [place] Judgement: Fair Diagnostics Vital Signs (24Hr): Vital Signs - 24 hr 01/09/22 19:33 01/10/22 06:00 Temperature 97.8 F 97.9 F Pulse Rate 87 95 Respiratory Rate 16 16 Blood Pressure 107/52 L 119/62 Pulse Oximetry 98 97 BMI result Body Mass Index 26.8 Labs Results: 10/26/21 07:50 12/24/21 13:18 Imaging Radiology Impressions: ITS Impressions Head CT 10/08/21 15:16 IMPRESSION: No acute intracranial pathology. Head CT 10/09/21 13:54 IMPRESSION: No acute intracranial pathology. Pelvic/Transvag US 10/13/21 09:24 IMPRESSION: Abnormally thickened endometrium for a postmenopausal patient measuring 0.9 cm. 3 x 2.7 x 3.7 cm mass in the posterior cervix. This may represent a fibroid. Slightly thickened trabeculated bladder wall. Head CT 10/20/21 08:18 IMPRESSION: No acute intracranial pathology. This critical result was discussed with Dr. Chu at 8:30 hours on 10/20/2021. It was ascertained that the content and urgency of the report was understood at the time of direct communication. Head CT 11/20/21 19:29 IMPRESSION: No acute intracranial pathology. Medications Medications Current Medications Acetaminophen (Acetaminophen 325 Mg Tablet) 650 mg PO Q6H PRN PRN Reason: Headache/Pain Mild Scale (1-3) Last Admin: 12/13/21 21:56 Dose: 650 mg Documented by: Al Hydroxide/Mg Hydroxide (Magnesium Hydrox/Alum Hydrox 30 Ml Oral.Susp) 30 ml PO Q6H PRN PRN Reason: Heartburn/Nausea Apixaban (Apixaban 5 Mg Tablet) 5 mg PO BID [facility] Last Admin: 01/10/22 08:46 Dose: 5 mg Documented by: Benztropine Mesylate (Benztropine Mesylate 1 Mg Tablet) 1 mg PO BID REPLACED BY [facility] Last Admin: 01/10/22 08:47 Dose: 1 mg Documented by: Bisacodyl (Bisacodyl 10 Mg Supp.Rect) 10 mg [place] DAILY PRN PRN Reason: Constipation Last Admin: 12/16/21 04:01 Dose: 10 mg Documented by: Clozapine (Clozapine 100 Mg Tablet) 100 mg PO DAILY REPLACED BY [facility] Last Admin: 01/10/22 08:47 Dose: 100 mg Documented by: Clozapine (Clozapine 100 Mg Tablet) 200 mg PO DAILY@1700 REPLACED BY [facility] Last Admin: 01/09/22 16:48 Dose: 200 mg Documented by: Clozapine (Clozapine 100 Mg Tablet) 300 mg PO BEDTIME REPLACED BY [facility] Last Admin: 01/09/22 20:31 Dose: 300 mg Documented by: Desmopressin Acetate (Desmopressin Acetate 0.2 Mg Tablet) 0.2 mg PO BID REPLACED BY [facility] Last Admin: 01/10/22 08:46 Dose: 0.2 mg Documented by: Docusate Sodium (Docusate Sodium 100 Mg Capsule) 100 mg PO BEDTIME REPLACED BY [facility] Last Admin: 01/09/22 21:05 Dose: Not Given Documented by: Docusate Sodium (Docusate Sodium 100 Mg Capsule) 100 mg PO BID REPLACED BY [facility] Last Admin: 01/10/22 08:47 Dose: 100 mg Documented by: Haloperidol (Haloperidol 5 Mg Tablet) 5 mg PO BID REPLACED BY [facility] Last Admin: 01/10/22 08:46 Dose: 5 mg Documented by: Haloperidol Lactate (Haloperidol Lactate 5 Mg/Ml Vial) 5 mg IM TID PRN PRN Reason: if patient refuses Clozaril Last Admin: 01/08/22 17:45 Dose: 5 mg Documented by: Hydrochlorothiazide (Hydrochlorothiazide 25 Mg Tablet) 25 mg PO DAILY REPLACED BY [facility]; Protocol Last Admin: 01/10/22 08:46 Dose: 25 mg Documented by: Hydroxyzine HCl (Hydroxyzine Hcl 25 Mg Tablet) 25 mg PO BEDTIME PRN PRN Reason: Anxiety Last Admin: 01/05/22 00:37 Dose: 25 mg Documented by: Hydroxyzine HCl (Hydroxyzine Hcl 25 Mg Tablet) 25 mg PO BID PRN PRN Reason: Anxiety Last Admin: 12/23/21 09:41 Dose: 25 mg Documented by: [place] Carbonate ([place] Carbonate 300 Mg Tablet) 450 mg PO BID REPLACED BY [facility] Last Admin: 01/10/22 08:47 Dose: 450 mg Documented by: Loperamide HCl (Loperamide Hcl 2 Mg Capsule) 4 mg PO Q4H PRN PRN Reason: Diarrhea Last Admin: 11/01/21 17:04 Dose: 4 mg Documented by: Magnesium Hydroxide (Milk Of Magnesia 30 Ml Oral.Susp) 30 ml PO DAILY PRN PRN Reason: Constipation Last Admin: 01/06/22 12:51 Dose: 30 ml Documented by: Mirtazapine (Mirtazapine 15 Mg Tablet) 15 mg PO BEDTIME REPLACED BY [facility] Last Admin: 01/09/22 20:32 Dose: 15 mg Documented by: Polyethylene Glycol (Polyethylene Glycol 3350 17 Gm Powd.Pack) 17 gm PO BID REPLACED BY [facility] Last Admin: 01/10/22 08:51 Dose: Not Given Documented by: Potassium Chloride (Potassium Chloride Er 10 Meq Capsule.Er) 40 meq PO BID REPLACED BY [facility] Last Admin: 01/10/22 08:51 Dose: Not Given Documented by: Senna (Sennosides 8.6 Mg Tablet) 8.6 mg PO BEDTIME REPLACED BY [facility] Last Admin: 01/09/22 21:07 Dose: Not Given Documented by: Trazodone HCl (Trazodone Hcl 50 Mg Tablet) 50 mg PO BEDTIME PRN PRN Reason: Insomnia Last Admin: 01/05/22 00:37 Dose: 50 mg Documented by: Trolamine Salicylate/Aloe Vera (Trolamine Salicylate 10%/Aloe Cream 35.4 Gm) 1 appl TOPICAL TID PRN PRN Reason: neck pain Last Admin: 12/08/21 14:54 Dose: 1 appl Documented by: Allergies Allergies Allergy/AdvReac Type Severity Reaction Status Date / Time No Known Allergies Allergy Unverified 05/01/20 19:42 [No Known Allergies*] Assessment & Plan Assessment & Plan (1) Schizophrenia, paranoid, chronic with acute exacerbation: Status: Acute Code(s): F20.0 - Paranoid schizophrenia (2) Hypertension: Status: Acute Code(s): I10 - Essential (primary) hypertension (3) Dementia: Status: Acute Code(s): F03.90 - Unspecified dementia without behavioral disturbance Plan Elderly female with a long history of schizoaffective disorder bipolar type who was admitted into the facility for exacerbation of psychosis and mood lability. The patient is on Clozaril and apparently she has not been fully compliant with treatment. 11/21 slipped, hit head on 11/20, head CT reviewed and unremarkable. We did a MOCA and she is technically demented at this moment Plan 1. The patient at this moment is on 3 psychotics, Clozaril , Haldol and Invega Sustenna. 2. Haldol 5 mg IM if the patient refuses Clozaril. 3. keep same treatment. I spent ___20___ minutes with the patient and/or on the patient floor today, greater than?50% of which was spent counseling/coordinating care. Reason for contiued inpatient stay Substantial Risk for: inability to function, rapid decompensation and med/psych decompensation
[2022-01-10] MEDS: cloZAPine 100 MG TABLET 200 MG PO (16:37)
[2022-01-10 19:33] VITALS: BP 133/64; PULSE 86; RESP 16; TEMP 36.6; O2SAT 98
[2022-01-10] MEDS: cloZAPine 100 MG TABLET 300 MG PO (20:58)
[2022-01-10] MEDS: Sennosides 8.6 MG TABLET PO (20:58)
[2022-01-10] MEDS: Mirtazapine 15 MG TABLET PO (20:59)
[2022-01-10] MEDS: traZODone HCL 50 MG TABLET PO (22:47)
[2022-01-10] MEDS: hydrOXYzine HCL 25 MG TABLET PO (22:47)
[2022-01-11] MEDS: polyethylene glycoL 3350 17 GM POWD.PACK PO (08:35)
--- NOTE | 2022-01-11 08:40 | HO.PSYCHPN ---
Subjective Subjective Date of Service: 01/11/22 Reason For Visit: psychotic disorder Subjective Notes: Conditional Voluntary Interim History: The nursing staff reported the patient has been compliant with medication and need of IM backup. She slept well last night and she did not have any PRNs besides trazodone and Atarax at night. On interview the patient denies new symptoms she looks confused and psychotic, at baseline. Mental Status Exam Mental Status Exam Patient Appearance: Appropriate Patient Orientation: Person Level of Consciousness: Awake Patient Behavior: Guarded and Cooperative Mood Description: Withdrawn Affect Description: Constricted Patient Cognition Impaired: Yes Ability to Follow Directions: Fair Speech Pattern: Clear Hallucinations: Auditory Delusions: Paranoid Ideation Thought Process: Distracted Thought Content: positive for [place] and positive for [place] of Content Judgement: Fair Diagnostics Vital Signs (24Hr): Vital Signs - 24 hr 01/10/22 19:33 Temperature 97.9 F Pulse Rate 86 Respiratory Rate 16 Blood Pressure 133/64 Pulse Oximetry 98 BMI result Body Mass Index 26.8 Labs Results: 10/26/21 07:50 12/24/21 13:18 Imaging Radiology Impressions: ITS Impressions Head CT 10/08/21 15:16 IMPRESSION: No acute intracranial pathology. Head CT 10/09/21 13:54 IMPRESSION: No acute intracranial pathology. Pelvic/Transvag US 10/13/21 09:24 IMPRESSION: Abnormally thickened endometrium for a postmenopausal patient measuring 0.9 cm. 3 x 2.7 x 3.7 cm mass in the posterior cervix. This may represent a fibroid. Slightly thickened trabeculated bladder wall. Head CT 10/20/21 08:18 IMPRESSION: No acute intracranial pathology. This critical result was discussed with Dr. Chu at 8:30 hours on 10/20/2021. It was ascertained that the content and urgency of the report was understood at the time of direct communication. Head CT 11/20/21 19:29 IMPRESSION: No acute intracranial pathology. Medications Medications Current Medications Acetaminophen (Acetaminophen 325 Mg Tablet) 650 mg PO Q6H PRN PRN Reason: Headache/Pain Mild Scale (1-3) Last Admin: 12/13/21 21:56 Dose: 650 mg Documented by: Al Hydroxide/Mg Hydroxide (Magnesium Hydrox/Alum Hydrox 30 Ml Oral.Susp) 30 ml PO Q6H PRN PRN Reason: Heartburn/Nausea Apixaban (Apixaban 5 Mg Tablet) 5 mg PO BID [facility] Last Admin: 01/10/22 20:59 Dose: 5 mg Documented by: Benztropine Mesylate (Benztropine Mesylate 1 Mg Tablet) 1 mg PO BID [facility] Last Admin: 01/10/22 21:00 Dose: 1 mg Documented by: Bisacodyl (Bisacodyl 10 Mg Supp.Rect) 10 mg [place] DAILY PRN PRN Reason: Constipation Last Admin: 12/16/21 04:01 Dose: 10 mg Documented by: Clozapine (Clozapine 100 Mg Tablet) 100 mg PO DAILY [facility] Last Admin: 01/10/22 08:47 Dose: 100 mg Documented by: Clozapine (Clozapine 100 Mg Tablet) 200 mg PO DAILY@1700 [facility] Last Admin: 01/10/22 16:37 Dose: 200 mg Documented by: Clozapine (Clozapine 100 Mg Tablet) 300 mg PO BEDTIME [facility] Last Admin: 01/10/22 20:58 Dose: 300 mg Documented by: Desmopressin Acetate (Desmopressin Acetate 0.2 Mg Tablet) 0.2 mg PO BID [facility] Last Admin: 01/10/22 20:59 Dose: 0.2 mg Documented by: Docusate Sodium (Docusate Sodium 100 Mg Capsule) 100 mg PO BEDTIME [facility] Last Admin: 01/10/22 22:17 Dose: Not Given Documented by: Docusate Sodium (Docusate Sodium 100 Mg Capsule) 100 mg PO BID [facility] Last Admin: 01/10/22 22:17 Dose: Not Given Documented by: Haloperidol (Haloperidol 5 Mg Tablet) 5 mg PO BID [facility] Last Admin: 01/10/22 20:59 Dose: 5 mg Documented by: Haloperidol Lactate (Haloperidol Lactate 5 Mg/Ml Vial) 5 mg IM TID PRN PRN Reason: if patient refuses Clozaril Last Admin: 01/08/22 17:45 Dose: 5 mg Documented by: Hydrochlorothiazide (Hydrochlorothiazide 25 Mg Tablet) 25 mg PO DAILY [facility]; Protocol Last Admin: 01/10/22 08:46 Dose: 25 mg Documented by: Hydroxyzine HCl (Hydroxyzine Hcl 25 Mg Tablet) 25 mg PO BEDTIME PRN PRN Reason: Anxiety Last Admin: 01/10/22 22:47 Dose: 25 mg Documented by: Hydroxyzine HCl (Hydroxyzine Hcl 25 Mg Tablet) 25 mg PO BID PRN PRN Reason: Anxiety Last Admin: 12/23/21 09:41 Dose: 25 mg Documented by: [place] Carbonate ([place] Carbonate 300 Mg Tablet) 450 mg PO BID [facility] Last Admin: 01/10/22 21:00 Dose: 450 mg Documented by: Loperamide HCl (Loperamide Hcl 2 Mg Capsule) 4 mg PO Q4H PRN PRN Reason: Diarrhea Last Admin: 11/01/21 17:04 Dose: 4 mg Documented by: Magnesium Hydroxide (Milk Of Magnesia 30 Ml Oral.Susp) 30 ml PO DAILY PRN PRN Reason: Constipation Last Admin: 01/06/22 12:51 Dose: 30 ml Documented by: Mirtazapine (Mirtazapine 15 Mg Tablet) 15 mg PO BEDTIME [facility] Last Admin: 01/10/22 20:59 Dose: 15 mg Documented by: Polyethylene Glycol (Polyethylene Glycol 3350 17 Gm Powd.Pack) 17 gm PO BID [facility] Last Admin: 01/10/22 22:17 Dose: Not Given Documented by: Potassium Chloride (Potassium Chloride Er 10 Meq Capsule.Er) 40 meq PO BID [facility] Last Admin: 01/10/22 22:17 Dose: Not Given Documented by: Senna (Sennosides 8.6 Mg Tablet) 8.6 mg PO BEDTIME [facility] Last Admin: 01/10/22 20:58 Dose: 8.6 mg Documented by: Trazodone HCl (Trazodone Hcl 50 Mg Tablet) 50 mg PO BEDTIME PRN PRN Reason: Insomnia Last Admin: 01/10/22 22:47 Dose: 50 mg Documented by: Trolamine Salicylate/Aloe Vera (Trolamine Salicylate 10%/Aloe Cream 35.4 Gm) 1 appl TOPICAL TID PRN PRN Reason: neck pain Last Admin: 12/08/21 14:54 Dose: 1 appl Documented by: Allergies Allergies Allergy/AdvReac Type Severity Reaction Status Date / Time No Known Allergies Allergy Unverified 05/01/20 19:42 [No Known Allergies*] Assessment & Plan Assessment & Plan (1) Schizophrenia, paranoid, chronic with acute exacerbation: Status: Acute Code(s): F20.0 - Paranoid schizophrenia (2) Hypertension: Status: Acute Code(s): I10 - Essential (primary) hypertension (3) Dementia: Status: Acute Code(s): F03.90 - Unspecified dementia without behavioral disturbance Plan Elderly female with a long history of schizoaffective disorder bipolar type who was admitted into the facility for exacerbation of psychosis and mood lability. The patient is on Clozaril and apparently she has not been fully compliant with treatment. 11/21 slipped, hit head on 11/20, head CT reviewed and unremarkable. We did a MOCA and she is technically demented at this moment Plan 1. The patient at this moment is on 3 psychotics, Clozaril , Haldol and Invega Sustenna. 2. Haldol 5 mg IM if the patient refuses Clozaril. 3. keep same treatment. I spent ___20___ minutes with the patient and/or on the patient floor today, greater than?50% of which was spent counseling/coordinating care. Reason for contiued inpatient stay Substantial Risk for: inability to function, rapid decompensation and med/psych decompensation
[2022-01-11 08:55] VITALS: BP 121/70; PULSE 96; RESP 18; TEMP 36.6; O2SAT 96
[2022-01-11] MEDS: hydroCHLOROthiazide 25 MG TABLET PO (10:21)
[2022-01-11] MEDS: cloZAPine 100 MG TABLET PO (10:22)
[2022-01-11] MEDS: Lithium Carbonate 300 MG TABLET 450 MG PO (10:22)
[2022-01-11] MEDS: Docusate Sodium 100 MG CAPSULE PO (10:22)
[2022-01-11] MEDS: Benztropine Mesylate 1 MG TABLET PO (10:22)
[2022-01-11] MEDS: Desmopressin Acetate 0.2 MG TABLET PO (10:22)
[2022-01-11] MEDS: HaloperidoL 5 MG TABLET PO (10:23)
[2022-01-11] MEDS: Apixaban 5 MG TABLET PO (10:24)
[2022-01-11] MEDS: cloZAPine 100 MG TABLET 200 MG PO (16:57)
[2022-01-11 18:00] VITALS: BP 114/60; PULSE 109; RESP 18; TEMP 36.2; O2SAT 96
[2022-01-11] MEDS: Haloperidol Lactate 5 MG/ML VIAL IM (20:38)
[2022-01-12 06:00] VITALS: BP 106/57; PULSE 95; RESP 14; O2SAT 95
[2022-01-12 08:06] LABS: Neut%MD 77.3 %; Neutrophils Absolute Auto 6.9 x10*3/uL (2.0-8.3)
[2022-01-12] MEDS: Docusate Sodium 100 MG CAPSULE PO ×3 (10:27→21:26)
[2022-01-12] MEDS: HaloperidoL 5 MG TABLET PO ×2 (10:27→21:26)
[2022-01-12] MEDS: Lithium Carbonate 300 MG TABLET 450 MG PO ×2 (10:28→21:27)
[2022-01-12] MEDS: cloZAPine 100 MG TABLET PO (10:29)
[2022-01-12] MEDS: Benztropine Mesylate 1 MG TABLET PO ×2 (10:29→21:28)
[2022-01-12] MEDS: Desmopressin Acetate 0.2 MG TABLET PO (10:29)
[2022-01-12] MEDS: hydroCHLOROthiazide 25 MG TABLET PO (10:29)
[2022-01-12] MEDS: Apixaban 5 MG TABLET PO (10:30)
[2022-01-12 11:00] LABS: COVID-19 Test Positive (Negative)
[2022-01-12 12:41] VITALS: BP 100/50; PULSE 93; RESP 16; TEMP 37.2; O2SAT 92
--- NOTE | 2022-01-12 15:42 | P.PNPSI_ITS ---
Subjective Subjective Date of Service: 01/12/22 Reason For Visit: psychotic disorder Subjective Notes: Conditional Voluntary Interim History: The nursing staff reported the patient has been psychotic, responding to internal stimuli. She refused medications in the evening and needed to have Haldol 5 mg IM. On interview the patient was in her room, she tested positive to COVID-19 and she had some mild upper respiratory symptoms. Mental Status Exam Mental Status Exam Patient Appearance: Appropriate Patient Orientation: Person and Situation Level of Consciousness: Awake Patient Behavior: Cooperative Mood Description: Withdrawn Affect Description: Labile Patient Cognition Impaired: Yes Ability to Follow Directions: Fair Speech Pattern: Clear Hallucinations: Auditory Delusions: Paranoid Ideation Thought Process: Illogical and Evasive Thought Content: positive for [place] Judgement: Fair Diagnostics Vital Signs (24Hr): Vital Signs - 24 hr 01/11/22 18:00 01/12/22 06:00 01/12/22 12:41 Temperature 97.2 F 98.9 F Pulse Rate 109 H 95 93 Respiratory Rate 18 14 16 Blood Pressure 114/60 106/57 L 100/50 L Pulse Oximetry 96 95 92 BMI result Body Mass Index 26.8 Labs Results: 10/26/21 07:50 12/24/21 13:18 Labs: Laboratory Results - last 48 hr 01/12/22 01/12/22 07:58 10:30 Absolute Neuts (auto) 6.9 COVID-19 (SHIVANI) Positive A COVID-19 Clin Com See Note Imaging Radiology Impressions: ITS Impressions Head CT 10/08/21 15:16 IMPRESSION: No acute intracranial pathology. Head CT 10/09/21 13:54 IMPRESSION: No acute intracranial pathology. Pelvic/Transvag US 10/13/21 09:24 IMPRESSION: Abnormally thickened endometrium for a postmenopausal patient measuring 0.9 cm. 3 x 2.7 x 3.7 cm mass in the posterior cervix. This may represent a fibroid. Slightly thickened trabeculated bladder wall. Head CT 10/20/21 08:18 IMPRESSION: No acute intracranial pathology. This critical result was discussed with Dr. Chu at 8:30 hours on 10/20/2021. It was ascertained that the content and urgency of the report was understood at the time of direct communication. Head CT 11/20/21 19:29 IMPRESSION: No acute intracranial pathology. Medications Medications Current Medications Acetaminophen (Acetaminophen 325 Mg Tablet) 650 mg PO Q6H PRN PRN Reason: Headache/Pain Mild Scale (1-3) Last Admin: 12/13/21 21:56 Dose: 650 mg Documented by: Al Hydroxide/Mg Hydroxide (Magnesium Hydrox/Alum Hydrox 30 Ml Oral.Susp) 30 ml PO Q6H PRN PRN Reason: Heartburn/Nausea Apixaban (Apixaban 5 Mg Tablet) 5 mg PO BID [facility] Last Admin: 01/12/22 10:30 Dose: 5 mg Documented by: Benztropine Mesylate (Benztropine Mesylate 1 Mg Tablet) 1 mg PO BID [facility] Last Admin: 01/12/22 10:29 Dose: 1 mg Documented by: Bisacodyl (Bisacodyl 10 Mg Supp.Rect) 10 mg [place] DAILY PRN PRN Reason: Constipation Last Admin: 12/16/21 04:01 Dose: 10 mg Documented by: Clozapine (Clozapine 100 Mg Tablet) 100 mg PO DAILY [facility] Last Admin: 01/12/22 10:29 Dose: 100 mg Documented by: Clozapine (Clozapine 100 Mg Tablet) 200 mg PO DAILY@1700 [facility] Last Admin: 01/11/22 16:57 Dose: 200 mg Documented by: Clozapine (Clozapine 100 Mg Tablet) 300 mg PO BEDTIME [facility] Last Admin: 01/11/22 21:02 Dose: Not Given Documented by: Desmopressin Acetate (Desmopressin Acetate 0.2 Mg Tablet) 0.2 mg PO BID [facility] Last Admin: 01/12/22 10:29 Dose: 0.2 mg Documented by: Docusate Sodium (Docusate Sodium 100 Mg Capsule) 100 mg PO BEDTIME [facility] Last Admin: 01/11/22 22:00 Dose: Not Given Documented by: Docusate Sodium (Docusate Sodium 100 Mg Capsule) 100 mg PO BID [facility] Last Admin: 01/12/22 10:27 Dose: 100 mg Documented by: Haloperidol (Haloperidol 5 Mg Tablet) 5 mg PO BID [facility] Last Admin: 01/12/22 10:27 Dose: 5 mg Documented by: Haloperidol Lactate (Haloperidol Lactate 5 Mg/Ml Vial) 5 mg IM TID PRN PRN Reason: if patient refuses Clozaril Last Admin: 01/11/22 20:38 Dose: 5 mg Documented by: Hydrochlorothiazide (Hydrochlorothiazide 25 Mg Tablet) 25 mg PO DAILY [facility]; Protocol Last Admin: 01/12/22 10:29 Dose: 25 mg Documented by: Hydroxyzine HCl (Hydroxyzine Hcl 25 Mg Tablet) 25 mg PO BEDTIME PRN PRN Reason: Anxiety Last Admin: 01/10/22 22:47 Dose: 25 mg Documented by: Hydroxyzine HCl (Hydroxyzine Hcl 25 Mg Tablet) 25 mg PO BID PRN PRN Reason: Anxiety Last Admin: 12/23/21 09:41 Dose: 25 mg Documented by: [place] Carbonate ([place] Carbonate 300 Mg Tablet) 450 mg PO BID [facility] Last Admin: 01/12/22 10:28 Dose: 450 mg Documented by: Loperamide HCl (Loperamide Hcl 2 Mg Capsule) 4 mg PO Q4H PRN PRN Reason: Diarrhea Last Admin: 11/01/21 17:04 Dose: 4 mg Documented by: Magnesium Hydroxide (Milk Of Magnesia 30 Ml Oral.Susp) 30 ml PO DAILY PRN PRN Reason: Constipation Last Admin: 01/06/22 12:51 Dose: 30 ml Documented by: Mirtazapine (Mirtazapine 15 Mg Tablet) 15 mg PO BEDTIME [facility] Last Admin: 01/11/22 22:00 Dose: Not Given Documented by: Polyethylene Glycol (Polyethylene Glycol 3350 17 Gm Powd.Pack) 17 gm PO BID [facility] Last Admin: 01/12/22 10:34 Dose: Not Given Documented by: Potassium Chloride (Potassium Chloride Er 10 Meq Capsule.Er) 40 meq PO BID [facility] Last Admin: 01/12/22 10:34 Dose: Not Given Documented by: Senna (Sennosides 8.6 Mg Tablet) 8.6 mg PO BEDTIME [facility] Last Admin: 01/11/22 22:01 Dose: Not Given Documented by: Trazodone HCl (Trazodone Hcl 50 Mg Tablet) 50 mg PO BEDTIME PRN PRN Reason: Insomnia Last Admin: 01/10/22 22:47 Dose: 50 mg Documented by: Trolamine Salicylate/Aloe Vera (Trolamine Salicylate 10%/Aloe Cream 35.4 Gm) 1 appl TOPICAL TID PRN PRN Reason: neck pain Last Admin: 12/08/21 14:54 Dose: 1 appl Documented by: Allergies Allergies Allergy/AdvReac Type Severity Reaction Status Date / Time No Known Allergies Allergy Unverified 05/01/20 19:42 [No Known Allergies*] Assessment & Plan Assessment & Plan (1) Schizophrenia, paranoid, chronic with acute exacerbation: Status: Acute Code(s): F20.0 - Paranoid schizophrenia (2) Hypertension: Status: Acute Code(s): I10 - Essential (primary) hypertension (3) Dementia: Status: Acute Code(s): F03.90 - Unspecified dementia without behavioral disturbance Plan Elderly female with a long history of schizoaffective disorder bipolar type who was admitted into the facility for exacerbation of psychosis and mood lability. The patient is on Clozaril and apparently she has not been fully compliant with treatment. 11/21 slipped, hit head on 11/20, head CT reviewed and unremarkable. We did a MOCA and she is technically demented at this moment Plan 1. The patient at this moment is on 3 psychotics, Clozaril , Haldol and Invega Sustenna. 2. Haldol 5 mg IM if the patient refuses Clozaril. 3. keep same treatment. 4. COVID-19 protocol I spent ___20___ minutes with the patient and/or on the patient floor today, greater than?50% of which was spent counseling/coordinating care. Reason for contiued inpatient stay Substantial Risk for: inability to function, rapid decompensation and med/psych decompensation
[2022-01-12 16:15] VITALS: BP 99/54; PULSE 105; RESP 16; TEMP 37.8; O2SAT 93
[2022-01-12] MEDS: cloZAPine 100 MG TABLET 200 MG PO (16:18)
[2022-01-12] MEDS: Acetaminophen 325 MG TABLET 650 MG PO (16:18)
[2022-01-12 20:00] VITALS: BP 140/66; PULSE 95; RESP 16; TEMP 36.5; O2SAT 92
[2022-01-12] MEDS: cloZAPine 100 MG TABLET 300 MG PO (21:26)
[2022-01-12] MEDS: Sennosides 8.6 MG TABLET PO (21:27)
[2022-01-12] MEDS: Mirtazapine 15 MG TABLET PO (21:28)
[2022-01-13] VITALS: RESP 16; O2SAT 95
[2022-01-13 04:00] VITALS: BP 115/64; PULSE 95; RESP 16; TEMP 37.7; O2SAT 96
[2022-01-13 08:30] VITALS: BP 105/56; PULSE 97; RESP 16; TEMP 37.1; O2SAT 99
[2022-01-13] MEDS: Lithium Carbonate 300 MG TABLET 450 MG PO ×2 (10:10→22:39)
[2022-01-13] MEDS: polyethylene glycoL 3350 17 GM POWD.PACK PO (10:11)
[2022-01-13] MEDS: Apixaban 5 MG TABLET PO ×2 (10:11→22:43)
[2022-01-13] MEDS: HaloperidoL 5 MG TABLET PO (10:12)
[2022-01-13] MEDS: cloZAPine 100 MG TABLET PO (10:12)
[2022-01-13] MEDS: hydroCHLOROthiazide 25 MG TABLET PO (10:12)
[2022-01-13] MEDS: Desmopressin Acetate 0.2 MG TABLET PO ×2 (10:14→22:38)
[2022-01-13] MEDS: Benztropine Mesylate 1 MG TABLET PO ×2 (10:16→22:48)
[2022-01-13] MEDS: Docusate Sodium 100 MG CAPSULE PO ×4 (10:17→22:48)
[2022-01-13] MEDS: Acetaminophen 325 MG TABLET 650 MG PO ×2 (10:19→16:43)
[2022-01-13 12:08] VITALS: BP 100/53; PULSE 86; RESP 14; TEMP 37.2; O2SAT 95
--- NOTE | 2022-01-13 13:43 | P.PNPSI_ITS ---
Subjective Subjective Date of Service: 01/13/22 Reason For Visit: psychotic disorder Subjective Notes: Conditional Voluntary Interim History: the nursing staff reported the patient has symptoms, she had a low-grade fever yesterday. She had been fully compliant with medications. The nursing staff also reported that the patient has been on her room, compliant with COVID-19 protocol. The licensed master social worker reported that she still referred to several facilities. On interview the patient denies new symptoms Mental Status Exam Mental Status Exam Patient Appearance: Appropriate Patient Orientation: Person Level of Consciousness: Awake Patient Behavior: Passive Mood Description: Constricted Affect Description: Labile Patient Cognition Impaired: Yes Ability to Follow Directions: Good Speech Pattern: Clear Memory Description: Intact Hallucinations: Auditory Delusions: Paranoid Ideation and Ideas of Reference Thought Process: Distracted Thought Content: positive for [place] Judgement: Fair Diagnostics Vital Signs (24Hr): Vital Signs - 24 hr 01/12/22 16:15 01/12/22 20:00 01/13/22 00:00 Temperature 100.0 F 97.7 F Pulse Rate 105 H 95 Respiratory Rate 16 16 16 Blood Pressure 99/54 L 140/66 H Pulse Oximetry 93 92 95 01/13/22 04:00 01/13/22 08:30 01/13/22 12:08 Temperature 99.8 F 98.8 F 98.9 F Pulse Rate 95 97 86 Respiratory Rate 16 16 14 Blood Pressure 115/64 105/56 L 100/53 L Pulse Oximetry 96 99 95 BMI result Body Mass Index 26.8 Labs Results: 10/26/21 07:50 12/24/21 13:18 Labs: Laboratory Results - last 48 hr 01/12/22 01/12/22 07:58 10:30 Absolute Neuts (auto) 6.9 COVID-19 (SHIVANI) Positive A COVID-19 Clin Com See Note Imaging Radiology Impressions: ITS Impressions Head CT 10/08/21 15:16 IMPRESSION: No acute intracranial pathology. Head CT 10/09/21 13:54 IMPRESSION: No acute intracranial pathology. Pelvic/Transvag US 10/13/21 09:24 IMPRESSION: Abnormally thickened endometrium for a postmenopausal patient measuring 0.9 cm. 3 x 2.7 x 3.7 cm mass in the posterior cervix. This may represent a fibroid. Slightly thickened trabeculated bladder wall. Head CT 10/20/21 08:18 IMPRESSION: No acute intracranial pathology. This critical result was discussed with Dr. Chu at 8:30 hours on 10/20/2021. It was ascertained that the content and urgency of the report was understood at the time of direct communication. Head CT 11/20/21 19:29 IMPRESSION: No acute intracranial pathology. Medications Medications Current Medications Acetaminophen (Acetaminophen 325 Mg Tablet) 650 mg PO Q6H PRN PRN Reason: Headache/Pain Mild Scale (1-3) Last Admin: 01/13/22 10:19 Dose: 650 mg Documented by: Al Hydroxide/Mg Hydroxide (Magnesium Hydrox/Alum Hydrox 30 Ml Oral.Susp) 30 ml PO Q6H PRN PRN Reason: Heartburn/Nausea Apixaban (Apixaban 5 Mg Tablet) 5 mg PO BID [facility] Last Admin: 01/13/22 10:11 Dose: 5 mg Documented by: Benztropine Mesylate (Benztropine Mesylate 1 Mg Tablet) 1 mg PO BID [facility] Last Admin: 01/13/22 10:16 Dose: 1 mg Documented by: Bisacodyl (Bisacodyl 10 Mg Supp.Rect) 10 mg [place] DAILY PRN PRN Reason: Constipation Last Admin: 12/16/21 04:01 Dose: 10 mg Documented by: Clozapine (Clozapine 100 Mg Tablet) 100 mg PO DAILY [facility] Last Admin: 01/13/22 10:12 Dose: 100 mg Documented by: Clozapine (Clozapine 100 Mg Tablet) 200 mg PO DAILY@1700 [facility] Last Admin: 01/12/22 16:18 Dose: 200 mg Documented by: Clozapine (Clozapine 100 Mg Tablet) 300 mg PO BEDTIME [facility] Last Admin: 01/12/22 21:26 Dose: 300 mg Documented by: Desmopressin Acetate (Desmopressin Acetate 0.2 Mg Tablet) 0.2 mg PO BID [facility] Last Admin: 01/13/22 10:14 Dose: 0.2 mg Documented by: Docusate Sodium (Docusate Sodium 100 Mg Capsule) 100 mg PO BEDTIME [facility] Last Admin: 01/12/22 21:26 Dose: 100 mg Documented by: Docusate Sodium (Docusate Sodium 100 Mg Capsule) 100 mg PO BID [facility] Last Admin: 01/13/22 10:17 Dose: 100 mg Documented by: Haloperidol (Haloperidol 5 Mg Tablet) 5 mg PO BID [facility] Last Admin: 01/13/22 10:12 Dose: 5 mg Documented by: Haloperidol Lactate (Haloperidol Lactate 5 Mg/Ml Vial) 5 mg IM TID PRN PRN Reason: if patient refuses Clozaril Last Admin: 01/11/22 20:38 Dose: 5 mg Documented by: Hydrochlorothiazide (Hydrochlorothiazide 25 Mg Tablet) 25 mg PO DAILY [facility]; Protocol Last Admin: 01/13/22 10:12 Dose: 25 mg Documented by: Hydroxyzine HCl (Hydroxyzine Hcl 25 Mg Tablet) 25 mg PO BEDTIME PRN PRN Reason: Anxiety Last Admin: 01/10/22 22:47 Dose: 25 mg Documented by: Hydroxyzine HCl (Hydroxyzine Hcl 25 Mg Tablet) 25 mg PO BID PRN PRN Reason: Anxiety Last Admin: 12/23/21 09:41 Dose: 25 mg Documented by: [place] Carbonate ([place] Carbonate 300 Mg Tablet) 450 mg PO BID [facility] Last Admin: 01/13/22 10:10 Dose: 450 mg Documented by: Loperamide HCl (Loperamide Hcl 2 Mg Capsule) 4 mg PO Q4H PRN PRN Reason: Diarrhea Last Admin: 11/01/21 17:04 Dose: 4 mg Documented by: Magnesium Hydroxide (Milk Of Magnesia 30 Ml Oral.Susp) 30 ml PO DAILY PRN PRN Reason: Constipation Last Admin: 01/06/22 12:51 Dose: 30 ml Documented by: Mirtazapine (Mirtazapine 15 Mg Tablet) 15 mg PO BEDTIME [facility] Last Admin: 01/12/22 21:28 Dose: 15 mg Documented by: Polyethylene Glycol (Polyethylene Glycol 3350 17 Gm Powd.Pack) 17 gm PO BID [facility] Last Admin: 01/13/22 10:11 Dose: 17 gm Documented by: Potassium Chloride (Potassium Chloride Er 10 Meq Capsule.Er) 40 meq PO BID [facility] Last Admin: 01/13/22 10:13 Dose: 40 meq Documented by: Senna (Sennosides 8.6 Mg Tablet) 8.6 mg PO BEDTIME [facility] Last Admin: 01/12/22 21:27 Dose: 8.6 mg Documented by: Trazodone HCl (Trazodone Hcl 50 Mg Tablet) 50 mg PO BEDTIME PRN PRN Reason: Insomnia Last Admin: 01/10/22 22:47 Dose: 50 mg Documented by: Trolamine Salicylate/Aloe Vera (Trolamine Salicylate 10%/Aloe Cream 35.4 Gm) 1 appl TOPICAL TID PRN PRN Reason: neck pain Last Admin: 12/08/21 14:54 Dose: 1 appl Documented by: Allergies Allergies Allergy/AdvReac Type Severity Reaction Status Date / Time No Known Allergies Allergy Unverified 05/01/20 19:42 [No Known Allergies*] Assessment & Plan Assessment & Plan (1) Schizophrenia, paranoid, chronic with acute exacerbation: Status: Acute Code(s): F20.0 - Paranoid schizophrenia (2) Hypertension: Status: Acute Code(s): I10 - Essential (primary) hypertension (3) Dementia: Status: Acute Code(s): F03.90 - Unspecified dementia without behavioral disturbance Plan Elderly female with a long history of schizoaffective disorder bipolar type who was admitted into the facility for exacerbation of psychosis and mood lability. The patient is on Clozaril and apparently she has not been fully compliant with treatment. 11/21 slipped, hit head on 11/20, head CT reviewed and unremarkable. We did a MOCA and she is technically demented at this moment Plan 1. The patient at this moment is on 3 psychotics, Clozaril , Haldol and Invega Sustenna. 2. Haldol 5 mg IM if the patient refuses Clozaril. 3. keep same treatment. 4. COVID-19 protocol I spent ___20___ minutes with the patient and/or on the patient floor today, greater than?50% of which was spent counseling/coordinating care. Reason for contiued inpatient stay Substantial Risk for: inability to function, rapid decompensation and med/psych decompensation
[2022-01-13] MEDS: cloZAPine 100 MG TABLET 200 MG PO (16:43)
[2022-01-13 17:00] VITALS: BP 112/59; PULSE 99; RESP 16; TEMP 37.3; O2SAT 98
[2022-01-13 21:00] VITALS: BP 108/58; PULSE 90; RESP 16; TEMP 36; O2SAT 95
[2022-01-13] MEDS: Haloperidol Lactate 5 MG/ML VIAL IM (22:26)
[2022-01-13] MEDS: Mirtazapine 15 MG TABLET PO (22:40)
[2022-01-13] MEDS: cloZAPine 100 MG TABLET 300 MG PO (22:42)
[2022-01-13] MEDS: Sennosides 8.6 MG TABLET PO (22:44)
--- NOTE | 2022-01-13 23:41 | PC.NURSE ---
Pt refused all hs meds despite encouragement/med education from staff members. Haldol 5 mg IM given at 2226 due to refusal of Clozaril 300mg. Pt stated she would accept hs meds after receiving Haldol IM 5 mg. All hs meds given po, except for Haldol 5mg po at 2240. Dr Morgan notified at 2308.
[2022-01-14 00:25] VITALS: BP 110/80; PULSE 100; RESP 20; TEMP 37.3; O2SAT 94
[2022-01-14 05:00] VITALS: PULSE 102; RESP 20; TEMP 36.6; O2SAT 94
[2022-01-14 09:00] VITALS: BP 123/58; PULSE 98; RESP 16; TEMP 37.4; O2SAT 94
[2022-01-14] MEDS: Haloperidol Lactate 5 MG/ML VIAL IM (10:41)
[2022-01-14] MEDS: Acetaminophen 325 MG TABLET 650 MG PO (10:44)
[2022-01-14 13:00] VITALS: PULSE 94; RESP 18; TEMP 36.6; O2SAT 95
--- NOTE | 2022-01-14 15:42 | PC.NURSE ---
VELAZQUEZ engaged patient in bed level exercises. VELAZQUEZ performed PROM to BUE and BLE. VELAZQUEZ also had patient perform leg raises and leg flexion/extenion 5 reps x 1 set.
[2022-01-14] MEDS: cloZAPine 100 MG TABLET 200 MG PO (17:38)
[2022-01-14 21:00] VITALS: BP 100/53; PULSE 94; RESP 17; TEMP 36.3; O2SAT 95
[2022-01-14] MEDS: cloZAPine 100 MG TABLET 300 MG PO (21:46)
[2022-01-14] MEDS: HaloperidoL 5 MG TABLET PO (21:46)
--- NOTE | 2022-01-14 22:08 | P.PNPSI_ITS ---
Subjective Subjective Date of Service: 01/14/22 Reason For Visit: psychotic disorder Medical Problems Affecting Mental Status: Yes Interim History: pt has covid somewhat iso;ative lethargic Mental Status Exam Mental Status Exam Patient Appearance: Appropriate Patient Orientation: Person Level of Consciousness: Awake Patient Behavior: Passive Mood Description: Constricted Affect Description: Labile Patient Cognition Impaired: Yes Ability to Follow Directions: Good Speech Pattern: Clear Memory Description: Intact Hallucinations: Auditory Delusions: Paranoid Ideation and Ideas of Reference Thought Process: Distracted Thought Content: positive for [place] Judgement: Fair Diagnostics Vital Signs (24Hr): Vital Signs - 24 hr 01/14/22 00:25 01/14/22 05:00 01/14/22 09:00 Temperature 99.2 F 98 F 99.3 F Pulse Rate 100 102 H 98 Respiratory Rate 20 20 16 Blood Pressure 110/80 123/58 L Pulse Oximetry 94 94 94 01/14/22 13:00 Temperature 97.9 F Pulse Rate 94 Respiratory Rate 18 Blood Pressure Pulse Oximetry 95 BMI result Body Mass Index 26.8 Labs Results: 10/26/21 07:50 12/24/21 13:18 Imaging Radiology Impressions: ITS Impressions Head CT 10/08/21 15:16 IMPRESSION: No acute intracranial pathology. Head CT 10/09/21 13:54 IMPRESSION: No acute intracranial pathology. Pelvic/Transvag US 10/13/21 09:24 IMPRESSION: Abnormally thickened endometrium for a postmenopausal patient measuring 0.9 cm. 3 x 2.7 x 3.7 cm mass in the posterior cervix. This may represent a fibroid. Slightly thickened trabeculated bladder wall. Head CT 10/20/21 08:18 IMPRESSION: No acute intracranial pathology. This critical result was discussed with Dr. Chu at 8:30 hours on 10/20/2021. It was ascertained that the content and urgency of the report was understood at the time of direct communication. Head CT 11/20/21 19:29 IMPRESSION: No acute intracranial pathology. Medications Medications Current Medications Acetaminophen (Acetaminophen 325 Mg Tablet) 650 mg PO Q6H PRN PRN Reason: Headache/Pain Mild Scale (1-3) Last Admin: 01/14/22 10:44 Dose: 650 mg Documented by: Al Hydroxide/Mg Hydroxide (Magnesium Hydrox/Alum Hydrox 30 Ml Oral.Susp) 30 ml PO Q6H PRN PRN Reason: Heartburn/Nausea Apixaban (Apixaban 5 Mg Tablet) 5 mg PO BID [facility] Last Admin: 01/14/22 10:46 Dose: Not Given Documented by: Benztropine Mesylate (Benztropine Mesylate 1 Mg Tablet) 1 mg PO BID [facility] Last Admin: 01/14/22 10:46 Dose: Not Given Documented by: Bisacodyl (Bisacodyl 10 Mg Supp.Rect) 10 mg [place] DAILY PRN PRN Reason: Constipation Last Admin: 12/16/21 04:01 Dose: 10 mg Documented by: Clozapine (Clozapine 100 Mg Tablet) 100 mg PO DAILY [facility] Last Admin: 01/14/22 10:46 Dose: Not Given Documented by: Clozapine (Clozapine 100 Mg Tablet) 200 mg PO DAILY@1700 [facility] Last Admin: 01/14/22 17:38 Dose: 200 mg Documented by: Clozapine (Clozapine 100 Mg Tablet) 300 mg PO BEDTIME [facility] Last Admin: 01/14/22 21:46 Dose: 300 mg Documented by: Desmopressin Acetate (Desmopressin Acetate 0.2 Mg Tablet) 0.2 mg PO BID [facility] Last Admin: 01/14/22 10:46 Dose: Not Given Documented by: Docusate Sodium (Docusate Sodium 100 Mg Capsule) 100 mg PO BID [facility] Last Admin: 01/14/22 10:47 Dose: Not Given Documented by: Haloperidol (Haloperidol 5 Mg Tablet) 5 mg PO BID [facility] Last Admin: 01/14/22 21:46 Dose: 5 mg Documented by: Haloperidol Lactate (Haloperidol Lactate 5 Mg/Ml Vial) 5 mg IM TID PRN PRN Reason: if patient refuses Clozaril Last Admin: 01/14/22 10:41 Dose: 5 mg Documented by: Hydrochlorothiazide (Hydrochlorothiazide 25 Mg Tablet) 25 mg PO DAILY [facility]; Protocol Last Admin: 01/14/22 10:47 Dose: Not Given Documented by: Hydroxyzine HCl (Hydroxyzine Hcl 25 Mg Tablet) 25 mg PO BEDTIME PRN PRN Reason: Anxiety Last Admin: 01/10/22 22:47 Dose: 25 mg Documented by: Hydroxyzine HCl (Hydroxyzine Hcl 25 Mg Tablet) 25 mg PO BID PRN PRN Reason: Anxiety Last Admin: 12/23/21 09:41 Dose: 25 mg Documented by: [place] Carbonate ([place] Carbonate 300 Mg Tablet) 450 mg PO BID [facility] Last Admin: 01/14/22 10:47 Dose: Not Given Documented by: Loperamide HCl (Loperamide Hcl 2 Mg Capsule) 4 mg PO Q4H PRN PRN Reason: Diarrhea Last Admin: 11/01/21 17:04 Dose: 4 mg Documented by: Magnesium Hydroxide (Milk Of Magnesia 30 Ml Oral.Susp) 30 ml PO DAILY PRN PRN Reason: Constipation Last Admin: 01/06/22 12:51 Dose: 30 ml Documented by: Mirtazapine (Mirtazapine 15 Mg Tablet) 15 mg PO BEDTIME [facility] Last Admin: 01/13/22 22:40 Dose: 15 mg Documented by: Polyethylene Glycol (Polyethylene Glycol 3350 17 Gm Powd.Pack) 17 gm PO BID [facility] Last Admin: 01/14/22 10:47 Dose: Not Given Documented by: Potassium Chloride (Potassium Chloride Er 10 Meq Capsule.Er) 40 meq PO BID [facility] Last Admin: 01/14/22 10:47 Dose: Not Given Documented by: Senna (Sennosides 8.6 Mg Tablet) 8.6 mg PO BEDTIME [facility] Last Admin: 01/13/22 22:44 Dose: 8.6 mg Documented by: Trazodone HCl (Trazodone Hcl 50 Mg Tablet) 50 mg PO BEDTIME PRN PRN Reason: Insomnia Last Admin: 01/10/22 22:47 Dose: 50 mg Documented by: Trolamine Salicylate/Aloe Vera (Trolamine Salicylate 10%/Aloe Cream 35.4 Gm) 1 appl TOPICAL TID PRN PRN Reason: neck pain Last Admin: 12/08/21 14:54 Dose: 1 appl Documented by: Allergies Allergies Allergy/AdvReac Type Severity Reaction Status Date / Time No Known Allergies Allergy Unverified 05/01/20 19:42 [No Known Allergies*] Assessment & Plan Assessment & Plan (1) Schizophrenia, paranoid, chronic with acute exacerbation: Status: Acute Code(s): F20.0 - Paranoid schizophrenia Assessment and Plan: cont clozapine tx plan monitor for oversedation (2) Hypertension: Status: Acute Code(s): I10 - Essential (primary) hypertension (3) Dementia: Status: Acute Code(s): F03.90 - Unspecified dementia without behavioral disturbance Plan Elderly female with a long history of schizoaffective disorder bipolar type who was admitted into the facility for exacerbation of psychosis and mood lability. The patient is on Clozaril and apparently she has not been fully compliant with treatment. 11/21 slipped, hit head on 11/20, head CT reviewed and unremarkable. We did a MOCA and she is technically demented at this moment Plan 1. The patient at this moment is on 3 psychotics, Clozaril , Haldol and Invega Sustenna. 2. Haldol 5 mg IM if the patient refuses Clozaril. 3. keep same treatment. 4. COVID-19 protocol I spent minutes with the patient and/or on the patient floor today, greater than?50% of which was spent counseling/coordinating care. Reason for contiued inpatient stay Substantial Risk for: inability to function and rapid decompensation
[2022-01-15 04:04] VITALS: BP 100/60; PULSE 89; RESP 20; TEMP 36.8; O2SAT 92
[2022-01-15 09:00] VITALS: BP 109/66; PULSE 104; RESP 18; TEMP 36.5; O2SAT 93
--- NOTE | 2022-01-15 10:29 | HO.PSYCHPN ---
Subjective Subjective Date of Service: 01/15/22 Reason For Visit: psychotic disorder Subjective Notes: Conditional Voluntary Interim History: The nursing staff reported the patient has normal vital signs but today in the morning she refused it. She needed to have IM backup since she refused Clozaril yesterday. On interview today the patient was not feeling well, she is very unsteady on her gait so we discussed with Nursing will change to observe patient to one-to-one for safety Mental Status Exam Mental Status Exam Patient Appearance: Appropriate Patient Orientation: Person and Situation Level of Consciousness: Awake Patient Behavior: Guarded, Suspicious and Restless Mood Description: Withdrawn Affect Description: Labile Patient Cognition Impaired: Yes Ability to Follow Directions: Fair Speech Pattern: Impoverished and Monotone Hallucinations: Auditory Delusions: Paranoid Ideation Thought Process: Linear Thought Content: positive for [place] and positive for [place] Judgement: Fair Diagnostics Vital Signs (24Hr): Vital Signs - 24 hr 01/14/22 13:00 01/14/22 21:00 01/15/22 04:04 Temperature 97.9 F 97.3 F 98.3 F Pulse Rate 94 94 89 Respiratory Rate 18 17 20 Blood Pressure 100/53 L 100/60 Pulse Oximetry 95 95 92 BMI result Body Mass Index 26.8 Labs Results: 10/26/21 07:50 12/24/21 13:18 Imaging Radiology Impressions: ITS Impressions Head CT 10/08/21 15:16 IMPRESSION: No acute intracranial pathology. Head CT 10/09/21 13:54 IMPRESSION: No acute intracranial pathology. Pelvic/Transvag US 10/13/21 09:24 IMPRESSION: Abnormally thickened endometrium for a postmenopausal patient measuring 0.9 cm. 3 x 2.7 x 3.7 cm mass in the posterior cervix. This may represent a fibroid. Slightly thickened trabeculated bladder wall. Head CT 10/20/21 08:18 IMPRESSION: No acute intracranial pathology. This critical result was discussed with Dr. Chu at 8:30 hours on 10/20/2021. It was ascertained that the content and urgency of the report was understood at the time of direct communication. Head CT 11/20/21 19:29 IMPRESSION: No acute intracranial pathology. Medications Medications Current Medications Acetaminophen (Acetaminophen 325 Mg Tablet) 650 mg PO Q6H PRN PRN Reason: Headache/Pain Mild Scale (1-3) Last Admin: 01/14/22 10:44 Dose: 650 mg Documented by: Al Hydroxide/Mg Hydroxide (Magnesium Hydrox/Alum Hydrox 30 Ml Oral.Susp) 30 ml PO Q6H PRN PRN Reason: Heartburn/Nausea Apixaban (Apixaban 5 Mg Tablet) 5 mg PO BID [facility] Last Admin: 01/15/22 09:26 Dose: 5 mg Documented by: Benztropine Mesylate (Benztropine Mesylate 1 Mg Tablet) 1 mg PO BID [facility] Last Admin: 01/15/22 09:26 Dose: 1 mg Documented by: Bisacodyl (Bisacodyl 10 Mg Supp.Rect) 10 mg [place] DAILY PRN PRN Reason: Constipation Last Admin: 12/16/21 04:01 Dose: 10 mg Documented by: Clozapine (Clozapine 100 Mg Tablet) 100 mg PO DAILY [facility] Last Admin: 01/15/22 09:27 Dose: 100 mg Documented by: Clozapine (Clozapine 100 Mg Tablet) 200 mg PO DAILY@1700 [facility] Last Admin: 01/14/22 17:38 Dose: 200 mg Documented by: Clozapine (Clozapine 100 Mg Tablet) 300 mg PO BEDTIME [facility] Last Admin: 01/14/22 21:46 Dose: 300 mg Documented by: Desmopressin Acetate (Desmopressin Acetate 0.2 Mg Tablet) 0.2 mg PO BID [facility] Last Admin: 01/15/22 09:27 Dose: 0.2 mg Documented by: Docusate Sodium (Docusate Sodium 100 Mg Capsule) 100 mg PO BID [facility] Last Admin: 01/15/22 09:26 Dose: 100 mg Documented by: Haloperidol (Haloperidol 5 Mg Tablet) 5 mg PO BID [facility] Last Admin: 01/15/22 09:26 Dose: 5 mg Documented by: Haloperidol Lactate (Haloperidol Lactate 5 Mg/Ml Vial) 5 mg IM TID PRN PRN Reason: if patient refuses Clozaril Last Admin: 01/14/22 10:41 Dose: 5 mg Documented by: Hydrochlorothiazide (Hydrochlorothiazide 25 Mg Tablet) 25 mg PO DAILY [facility]; Protocol Last Admin: 01/14/22 10:47 Dose: Not Given Documented by: Hydroxyzine HCl (Hydroxyzine Hcl 25 Mg Tablet) 25 mg PO BEDTIME PRN PRN Reason: Anxiety Last Admin: 01/10/22 22:47 Dose: 25 mg Documented by: Hydroxyzine HCl (Hydroxyzine Hcl 25 Mg Tablet) 25 mg PO BID PRN PRN Reason: Anxiety Last Admin: 12/23/21 09:41 Dose: 25 mg Documented by: [place] Carbonate ([place] Carbonate 300 Mg Tablet) 450 mg PO BID [facility] Last Admin: 01/15/22 09:27 Dose: 450 mg Documented by: Loperamide HCl (Loperamide Hcl 2 Mg Capsule) 4 mg PO Q4H PRN PRN Reason: Diarrhea Last Admin: 11/01/21 17:04 Dose: 4 mg Documented by: Magnesium Hydroxide (Milk Of Magnesia 30 Ml Oral.Susp) 30 ml PO DAILY PRN PRN Reason: Constipation Last Admin: 01/06/22 12:51 Dose: 30 ml Documented by: Mirtazapine (Mirtazapine 15 Mg Tablet) 15 mg PO BEDTIME [facility] Last Admin: 01/14/22 22:14 Dose: Not Given Documented by: Polyethylene Glycol (Polyethylene Glycol 3350 17 Gm Powd.Pack) 17 gm PO BID [facility] Last Admin: 01/14/22 22:14 Dose: Not Given Documented by: Potassium Chloride (Potassium Chloride Er 10 Meq Capsule.Er) 40 meq PO BID [facility] Last Admin: 01/14/22 22:14 Dose: Not Given Documented by: Senna (Sennosides 8.6 Mg Tablet) 8.6 mg PO BEDTIME [facility] Last Admin: 01/14/22 22:15 Dose: Not Given Documented by: Trazodone HCl (Trazodone Hcl 50 Mg Tablet) 50 mg PO BEDTIME PRN PRN Reason: Insomnia Last Admin: 01/10/22 22:47 Dose: 50 mg Documented by: Trolamine Salicylate/Aloe Vera (Trolamine Salicylate 10%/Aloe Cream 35.4 Gm) 1 appl TOPICAL TID PRN PRN Reason: neck pain Last Admin: 12/08/21 14:54 Dose: 1 appl Documented by: Allergies Allergies Allergy/AdvReac Type Severity Reaction Status Date / Time No Known Allergies Allergy Unverified 05/01/20 19:42 [No Known Allergies*] Assessment & Plan Assessment & Plan (1) Schizophrenia, paranoid, chronic with acute exacerbation: Status: Acute Code(s): F20.0 - Paranoid schizophrenia Assessment and Plan: cont clozapine tx plan monitor for oversedation (2) Hypertension: Status: Acute Code(s): I10 - Essential (primary) hypertension (3) Dementia: Status: Acute Code(s): F03.90 - Unspecified dementia without behavioral disturbance Plan Elderly female with a long history of schizoaffective disorder bipolar type who was admitted into the facility for exacerbation of psychosis and mood lability. The patient is on Clozaril and apparently she has not been fully compliant with treatment. 11/21 slipped, hit head on 11/20, head CT reviewed and unremarkable. We did a MOCA and she is technically demented at this moment Plan 1. The patient at this moment is on 3 psychotics, Clozaril , Haldol and Invega Sustenna. 2. Haldol 5 mg IM if the patient refuses Clozaril. 3. keep same treatment. 4. COVID-19 protocol I spent __20____ minutes with the patient and/or on the patient floor today, greater than?50% of which was spent counseling/coordinating care. Reason for contiued inpatient stay Substantial Risk for: inability to function, rapid decompensation and med/psych decompensation
[2022-01-15] MEDS: Haloperidol Lactate 5 MG/ML VIAL IM ×2 (11:05→20:10)
[2022-01-15 13:00] VITALS: BP 104/65; PULSE 98; RESP 16; TEMP 36.7; O2SAT 93
[2022-01-15 17:00] VITALS: BP 110/65; PULSE 88; RESP 16; TEMP 37.1; O2SAT 96
[2022-01-15] MEDS: Acetaminophen 325 MG TABLET 650 MG PO (19:04)
[2022-01-15] MEDS: cloZAPine 100 MG TABLET 200 MG PO (19:04)
[2022-01-15] MEDS: polyethylene glycoL 3350 17 GM POWD.PACK PO (19:44)
[2022-01-15] MEDS: Docusate Sodium 100 MG CAPSULE PO (19:44)
[2022-01-16 08:34] VITALS: BP 129/77; PULSE 90; RESP 16; TEMP 36.3; O2SAT 94
--- NOTE | 2022-01-16 11:05 | P.PNPSI_ITS ---
Subjective Subjective Date of Service: 01/16/22 Reason For Visit: psychotic disorder Subjective Notes: Conditional Voluntary Healthcare Proxy: No Guardianship: No Medical Problems Affecting Mental Status: Yes (COVID positive) Interim History: Patient was seen and discussed in rounds today. She has been refusing some meds and she has a IM Haldol back up if she refuses Clozaril. She has not been eating and drinking as well. She is pleasant and otherwise cooperative. She does have some auditory hallucinations and at times response to internal stimuli by screaming. She has been constipated and Mag citrate is ordered Review of Systems Review of Systems Constipation Yes Unobtainable due to mental status Mental Status Exam Mental Status Exam Patient Appearance: Appropriate Patient Orientation: Person and Situation Level of Consciousness: Awake Patient Behavior: Guarded, Suspicious and Restless Mood Description: Withdrawn Affect Description: Labile Patient Cognition Impaired: Yes Ability to Follow Directions: Fair Speech Pattern: Impoverished and Monotone Hallucinations: Auditory Delusions: Paranoid Ideation Thought Process: Linear Thought Content: positive for [place] and positive for Poverty of Content Judgement: Fair Diagnostics Vital Signs (24Hr): Vital Signs - 24 hr 01/15/22 13:00 01/15/22 17:00 01/16/22 08:34 Temperature 98.1 F 98.7 F 97.4 F Pulse Rate 98 88 90 Respiratory Rate 16 16 16 Blood Pressure 104/65 110/65 129/77 Pulse Oximetry 93 96 94 BMI result Body Mass Index 26.8 Labs Results: 10/26/21 07:50 12/24/21 13:18 Imaging Radiology Impressions: ITS Impressions Head CT 10/08/21 15:16 IMPRESSION: No acute intracranial pathology. Head CT 10/09/21 13:54 IMPRESSION: No acute intracranial pathology. Pelvic/Transvag US 10/13/21 09:24 IMPRESSION: Abnormally thickened endometrium for a postmenopausal patient measuring 0.9 cm. 3 x 2.7 x 3.7 cm mass in the posterior cervix. This may represent a fibroid. Slightly thickened trabeculated bladder wall. Head CT 10/20/21 08:18 IMPRESSION: No acute intracranial pathology. This critical result was discussed with Dr. Chu at 8:30 hours on 10/20/2021. It was ascertained that the content and urgency of the report was understood at the time of direct communication. Head CT 11/20/21 19:29 IMPRESSION: No acute intracranial pathology. Medications Medications Current Medications Acetaminophen (Acetaminophen 325 Mg Tablet) 650 mg PO Q6H PRN PRN Reason: Headache/Pain Mild Scale (1-3) Last Admin: 01/15/22 19:04 Dose: 650 mg Documented by: Al Hydroxide/Mg Hydroxide (Magnesium Hydrox/Alum Hydrox 30 Ml Oral.Susp) 30 ml PO Q6H PRN PRN Reason: Heartburn/Nausea Apixaban (Apixaban 5 Mg Tablet) 5 mg PO BID [facility] Last Admin: 01/15/22 20:00 Dose: Not Given Documented by: Benztropine Mesylate (Benztropine Mesylate 1 Mg Tablet) 1 mg PO BID [facility] Last Admin: 01/15/22 20:00 Dose: Not Given Documented by: Bisacodyl (Bisacodyl 10 Mg Supp.Rect) 10 mg [place] DAILY PRN PRN Reason: Constipation Last Admin: 12/16/21 04:01 Dose: 10 mg Documented by: Clozapine (Clozapine 100 Mg Tablet) 100 mg PO DAILY [facility] Last Admin: 01/15/22 10:58 Dose: Not Given Documented by: Clozapine (Clozapine 100 Mg Tablet) 200 mg PO DAILY@1700 [facility] Last Admin: 01/15/22 19:04 Dose: 200 mg Documented by: Clozapine (Clozapine 100 Mg Tablet) 300 mg PO BEDTIME [facility] Last Admin: 01/15/22 20:01 Dose: Not Given Documented by: Desmopressin Acetate (Desmopressin Acetate 0.2 Mg Tablet) 0.2 mg PO BID [facility] Last Admin: 01/15/22 20:01 Dose: Not Given Documented by: Docusate Sodium (Docusate Sodium 100 Mg Capsule) 100 mg PO BID [facility] Last Admin: 01/15/22 19:44 Dose: 100 mg Documented by: Haloperidol (Haloperidol 5 Mg Tablet) 5 mg PO BID [facility] Last Admin: 01/15/22 20:01 Dose: Not Given Documented by: Haloperidol Lactate (Haloperidol Lactate 5 Mg/Ml Vial) 5 mg IM TID PRN PRN Reason: if patient refuses Clozaril Last Admin: 01/15/22 20:10 Dose: 5 mg Documented by: Hydrochlorothiazide (Hydrochlorothiazide 25 Mg Tablet) 25 mg PO DAILY [facility]; Protocol Last Admin: 01/15/22 10:53 Dose: Not Given Documented by: Hydroxyzine HCl (Hydroxyzine Hcl 25 Mg Tablet) 25 mg PO BEDTIME PRN PRN Reason: Anxiety Last Admin: 01/10/22 22:47 Dose: 25 mg Documented by: Hydroxyzine HCl (Hydroxyzine Hcl 25 Mg Tablet) 25 mg PO BID PRN PRN Reason: Anxiety Last Admin: 12/23/21 09:41 Dose: 25 mg Documented by: [place] Carbonate ([place] Carbonate 300 Mg Tablet) 450 mg PO BID [facility] Last Admin: 01/15/22 20:02 Dose: Not Given Documented by: Loperamide HCl (Loperamide Hcl 2 Mg Capsule) 4 mg PO Q4H PRN PRN Reason: Diarrhea Last Admin: 11/01/21 17:04 Dose: 4 mg Documented by: Magnesium Hydroxide (Milk Of Magnesia 30 Ml Oral.Susp) 30 ml PO DAILY PRN PRN Reason: Constipation Last Admin: 01/06/22 12:51 Dose: 30 ml Documented by: Mirtazapine (Mirtazapine 15 Mg Tablet) 15 mg PO BEDTIME [facility] Last Admin: 01/15/22 20:02 Dose: Not Given Documented by: Polyethylene Glycol (Polyethylene Glycol 3350 17 Gm Powd.Pack) 17 gm PO BID [facility] Last Admin: 01/15/22 19:44 Dose: 17 gm Documented by: Potassium Chloride (Potassium Chloride Er 10 Meq Capsule.Er) 40 meq PO BID [facility] Last Admin: 01/15/22 20:00 Dose: Not Given Documented by: Senna (Sennosides 8.6 Mg Tablet) 8.6 mg PO BEDTIME [facility] Last Admin: 01/15/22 20:02 Dose: Not Given Documented by: Trazodone HCl (Trazodone Hcl 50 Mg Tablet) 50 mg PO BEDTIME PRN PRN Reason: Insomnia Last Admin: 01/10/22 22:47 Dose: 50 mg Documented by: Trolamine Salicylate/Aloe Vera (Trolamine Salicylate 10%/Aloe Cream 35.4 Gm) 1 appl TOPICAL TID PRN PRN Reason: neck pain Last Admin: 12/08/21 14:54 Dose: 1 appl Documented by: Allergies Allergies Allergy/AdvReac Type Severity Reaction Status Date / Time No Known Allergies Allergy Unverified 05/01/20 19:42 [No Known Allergies*] Assessment & Plan Assessment & Plan (1) Schizophrenia, paranoid, chronic with acute exacerbation: Status: Acute Code(s): F20.0 - Paranoid schizophrenia Assessment and Plan: cont clozapine tx plan monitor for oversedation (2) Hypertension: Status: Acute Code(s): I10 - Essential (primary) hypertension (3) Dementia: Status: Acute Code(s): F03.90 - Unspecified dementia without behavioral disturbance Plan Elderly female with a long history of schizoaffective disorder bipolar type who was admitted into the facility for exacerbation of psychosis and mood lability. The patient is on Clozaril and apparently she has not been fully compliant with treatment. 11/21 slipped, hit head on 11/20, head CT reviewed and unremarkable. We did a MOCA and she is technically demented at this moment Plan 1. The patient at this moment is on 3 psychotics, Clozaril , Haldol and Invega Sustenna. 2. Haldol 5 mg IM if the patient refuses Clozaril. 3. keep same treatment. 4. COVID-19 protocol 01/16: Continue current regimen and plans. Mag citrate was given for constipation I spent minutes with the patient and/or on the patient floor today, greater than?50% of which was spent counseling/coordinating care. Patient educated on: medication risk/benefits Reason for contiued inpatient stay Substantial Risk for: inability to function
[2022-01-16] MEDS: cloZAPine 100 MG TABLET PO (11:53)
[2022-01-16] MEDS: Docusate Sodium 100 MG CAPSULE PO (11:55)
[2022-01-16] MEDS: Benztropine Mesylate 1 MG TABLET PO ×2 (12:02→21:45)
[2022-01-16] MEDS: hydroCHLOROthiazide 25 MG TABLET PO (12:08)
[2022-01-16] MEDS: polyethylene glycoL 3350 17 GM POWD.PACK PO (12:09)
--- NOTE | 2022-01-16 12:19 | PC.NURSE ---
Pt labile, agitated at times, then polite and agreeable. At first refused Clozaril and was told the order would then call for IM Haldol. Pt became agitated stating that she hates haldol and decided to take clozaril. Pt agreed to take Clozaril, cogentin, colace, microzide, and miralax. Pt continued to refuse eliquis, Desmopressin, haldol, lithium, and potassium.
[2022-01-16 13:00] VITALS: BP 105/53; PULSE 84; RESP 16; TEMP 36.4; O2SAT 96
[2022-01-16] MEDS: hydrOXYzine HCL 25 MG TABLET PO (15:10)
[2022-01-16] MEDS: Magnesium Citrate 300 ML SOLUTION PO (15:10)
[2022-01-16 16:54] VITALS: PULSE 84; TEMP 37; O2SAT 96
[2022-01-16] MEDS: cloZAPine 100 MG TABLET 200 MG PO (17:40)
--- NOTE | 2022-01-16 17:41 | PC.NURSE ---
pt. was offered her 17:00 scheduled Clozepine 200mg PO. she refused the PO and stated I take the injection that was offered as an alternative. When t/w went back to give Haldol 5mg IM per Ty order Pt. changed her mind and took the Clozepine 200mg PO med. Haldol 5 mg IM was wasted.
[2022-01-16] MEDS: cloZAPine 100 MG TABLET 300 MG PO (20:12)
[2022-01-16] MEDS: HaloperidoL 5 MG TABLET PO (20:12)
[2022-01-16] MEDS: Acetaminophen 325 MG TABLET 650 MG PO (20:13)
[2022-01-16 20:38] VITALS: BP 106/61; PULSE 88; RESP 16; TEMP 36.3; O2SAT 97
[2022-01-16] MEDS: Lithium Carbonate 300 MG TABLET 450 MG PO (21:44)
[2022-01-16] MEDS: Mirtazapine 15 MG TABLET PO (21:44)
[2022-01-16] MEDS: Apixaban 5 MG TABLET PO (21:44)
[2022-01-16] MEDS: Desmopressin Acetate 0.2 MG TABLET PO (21:44)
[2022-01-17] MEDS: Haloperidol Lactate 5 MG/ML VIAL IM (09:00)
[2022-01-17] MEDS: polyethylene glycoL 3350 17 GM POWD.PACK PO ×2 (09:02→21:05)
--- NOTE | 2022-01-17 09:07 | HO.PSYCHPN ---
Subjective Subjective Date of Service: 01/17/22 Reason For Visit: psychotic disorder Subjective Notes: Conditional Voluntary Interim History: Patient was seen and discussed in rounds today. Records and plans were reviewed. She continues to take her medications selectively. She did have a bowel movement after receiving Mag citrate yesterday. She continues to respond to internal stimuli and has auditory and visual hallucinations. At times she screams out loud in response to her stimuli. Eating and sleeping adequately. No changes were made Review of Systems Review of Systems Yes Unobtainable due to mental status Mental Status Exam Mental Status Exam Patient Appearance: Appropriate Patient Orientation: Person and Situation Level of Consciousness: Awake Patient Behavior: Guarded, Suspicious and Restless Mood Description: Withdrawn Affect Description: Labile Patient Cognition Impaired: Yes Ability to Follow Directions: Fair Speech Pattern: Impoverished and Monotone Hallucinations: Auditory Delusions: Paranoid Ideation Thought Process: Linear Thought Content: positive for [place] and positive for Poverty of Content Judgement: Fair Diagnostics Vital Signs (24Hr): Vital Signs - 24 hr 01/16/22 13:00 01/16/22 16:54 01/16/22 20:38 Temperature 97.6 F 98.6 F 97.3 F Pulse Rate 84 84 88 Respiratory Rate 16 16 Blood Pressure 105/53 L 106/61 Pulse Oximetry 96 96 97 BMI result Body Mass Index 26.8 Labs Results: 10/26/21 07:50 12/24/21 13:18 Imaging Radiology Impressions: ITS Impressions Head CT 10/08/21 15:16 IMPRESSION: No acute intracranial pathology. Head CT 10/09/21 13:54 IMPRESSION: No acute intracranial pathology. Pelvic/Transvag US 10/13/21 09:24 IMPRESSION: Abnormally thickened endometrium for a postmenopausal patient measuring 0.9 cm. 3 x 2.7 x 3.7 cm mass in the posterior cervix. This may represent a fibroid. Slightly thickened trabeculated bladder wall. Head CT 10/20/21 08:18 IMPRESSION: No acute intracranial pathology. This critical result was discussed with Dr. Chu at 8:30 hours on 10/20/2021. It was ascertained that the content and urgency of the report was understood at the time of direct communication. Head CT 11/20/21 19:29 IMPRESSION: No acute intracranial pathology. Medications Medications Current Medications Acetaminophen (Acetaminophen 325 Mg Tablet) 650 mg PO Q6H PRN PRN Reason: Headache/Pain Mild Scale (1-3) Last Admin: 01/16/22 20:13 Dose: 650 mg Documented by: Al Hydroxide/Mg Hydroxide (Magnesium Hydrox/Alum Hydrox 30 Ml Oral.Susp) 30 ml PO Q6H PRN PRN Reason: Heartburn/Nausea Apixaban (Apixaban 5 Mg Tablet) 5 mg PO BID [facility] Last Admin: 01/17/22 09:00 Dose: Not Given Documented by: Benztropine Mesylate (Benztropine Mesylate 1 Mg Tablet) 1 mg PO BID [facility] Last Admin: 01/17/22 09:00 Dose: Not Given Documented by: Bisacodyl (Bisacodyl 10 Mg Supp.Rect) 10 mg [place] DAILY PRN PRN Reason: Constipation Last Admin: 12/16/21 04:01 Dose: 10 mg Documented by: Clozapine (Clozapine 100 Mg Tablet) 100 mg PO DAILY [facility] Last Admin: 01/17/22 09:00 Dose: Not Given Documented by: Clozapine (Clozapine 100 Mg Tablet) 200 mg PO DAILY@1700 [facility] Last Admin: 01/16/22 17:40 Dose: 200 mg Documented by: Clozapine (Clozapine 100 Mg Tablet) 300 mg PO BEDTIME [facility] Last Admin: 01/16/22 20:12 Dose: 300 mg Documented by: Desmopressin Acetate (Desmopressin Acetate 0.2 Mg Tablet) 0.2 mg PO BID [facility] Last Admin: 01/17/22 09:01 Dose: Not Given Documented by: Docusate Sodium (Docusate Sodium 100 Mg Capsule) 100 mg PO BID [facility] Last Admin: 01/17/22 09:01 Dose: Not Given Documented by: Haloperidol (Haloperidol 5 Mg Tablet) 5 mg PO BID [facility] Last Admin: 01/17/22 09:01 Dose: Not Given Documented by: Haloperidol Lactate (Haloperidol Lactate 5 Mg/Ml Vial) 5 mg IM TID PRN PRN Reason: if patient refuses Clozaril Last Admin: 01/17/22 09:00 Dose: 5 mg Documented by: Hydrochlorothiazide (Hydrochlorothiazide 25 Mg Tablet) 25 mg PO DAILY [facility]; Protocol Last Admin: 01/17/22 09:01 Dose: Not Given Documented by: Hydroxyzine HCl (Hydroxyzine Hcl 25 Mg Tablet) 25 mg PO BEDTIME PRN PRN Reason: Anxiety Last Admin: 01/10/22 22:47 Dose: 25 mg Documented by: Hydroxyzine HCl (Hydroxyzine Hcl 25 Mg Tablet) 25 mg PO BID PRN PRN Reason: Anxiety Last Admin: 01/16/22 15:10 Dose: 25 mg Documented by: [place] Carbonate ([place] Carbonate 300 Mg Tablet) 450 mg PO BID [facility] Last Admin: 01/17/22 09:01 Dose: Not Given Documented by: Loperamide HCl (Loperamide Hcl 2 Mg Capsule) 4 mg PO Q4H PRN PRN Reason: Diarrhea Last Admin: 11/01/21 17:04 Dose: 4 mg Documented by: Magnesium Hydroxide (Milk Of Magnesia 30 Ml Oral.Susp) 30 ml PO DAILY PRN PRN Reason: Constipation Last Admin: 01/06/22 12:51 Dose: 30 ml Documented by: Mirtazapine (Mirtazapine 15 Mg Tablet) 15 mg PO BEDTIME [facility] Last Admin: 01/16/22 21:44 Dose: 15 mg Documented by: Polyethylene Glycol (Polyethylene Glycol 3350 17 Gm Powd.Pack) 17 gm PO BID [facility] Last Admin: 01/17/22 09:02 Dose: 17 gm Documented by: Potassium Chloride (Potassium Chloride Er 10 Meq Capsule.Er) 40 meq PO BID [facility] Last Admin: 01/17/22 09:02 Dose: Not Given Documented by: Senna (Sennosides 8.6 Mg Tablet) 8.6 mg PO BEDTIME [facility] Last Admin: 01/16/22 22:23 Dose: Not Given Documented by: Trazodone HCl (Trazodone Hcl 50 Mg Tablet) 50 mg PO BEDTIME PRN PRN Reason: Insomnia Last Admin: 01/10/22 22:47 Dose: 50 mg Documented by: Trolamine Salicylate/Aloe Vera (Trolamine Salicylate 10%/Aloe Cream 35.4 Gm) 1 appl TOPICAL TID PRN PRN Reason: neck pain Last Admin: 12/08/21 14:54 Dose: 1 appl Documented by: Allergies Allergies Allergy/AdvReac Type Severity Reaction Status Date / Time No Known Allergies Allergy Unverified 05/01/20 19:42 [No Known Allergies*] Assessment & Plan Assessment & Plan (1) Schizophrenia, paranoid, chronic with acute exacerbation: Status: Acute Code(s): F20.0 - Paranoid schizophrenia Assessment and Plan: cont clozapine tx plan monitor for oversedation (2) Hypertension: Status: Acute Code(s): I10 - Essential (primary) hypertension (3) Dementia: Status: Acute Code(s): F03.90 - Unspecified dementia without behavioral disturbance Plan Elderly female with a long history of schizoaffective disorder bipolar type who was admitted into the facility for exacerbation of psychosis and mood lability. The patient is on Clozaril and apparently she has not been fully compliant with treatment. 11/21 slipped, hit head on 11/20, head CT reviewed and unremarkable. We did a MOCA and she is technically demented at this moment Plan 1. The patient at this moment is on 3 psychotics, Clozaril , Haldol and Invega Sustenna. 2. Haldol 5 mg IM if the patient refuses Clozaril. 3. keep same treatment. 4. COVID-19 protocol 01/16: Continue current regimen and plans. Mag citrate was given for constipation 01/17: Continue current plans and regimen I spent minutes with the patient and/or on the patient floor today, greater than?50% of which was spent counseling/coordinating care. Reason for contiued inpatient stay Substantial Risk for: inability to function
[2022-01-17 13:00] VITALS: PULSE 78; RESP 17; TEMP 36.2; O2SAT 95
[2022-01-17 17:00] VITALS: PULSE 81; RESP 17; TEMP 36.3; O2SAT 100
[2022-01-17] MEDS: cloZAPine 100 MG TABLET 200 MG PO (17:25)
[2022-01-17] MEDS: Desmopressin Acetate 0.2 MG TABLET PO (20:21)
[2022-01-17] MEDS: Docusate Sodium 100 MG CAPSULE PO (20:21)
[2022-01-17] MEDS: Apixaban 5 MG TABLET PO (20:21)
[2022-01-17] MEDS: Benztropine Mesylate 1 MG TABLET PO (20:21)
[2022-01-17] MEDS: cloZAPine 100 MG TABLET 300 MG PO (20:21)
[2022-01-17] MEDS: Mirtazapine 15 MG TABLET PO (20:22)
[2022-01-17] MEDS: HaloperidoL 5 MG TABLET PO (20:22)
[2022-01-17] MEDS: Lithium Carbonate 300 MG TABLET 450 MG PO (20:23)
[2022-01-17] MEDS: Sennosides 8.6 MG TABLET PO (20:23)
[2022-01-17] MEDS: Acetaminophen 325 MG TABLET 650 MG PO (20:48)
[2022-01-17 21:00] VITALS: BP 113/57; PULSE 85; RESP 18; TEMP 36.2; O2SAT 95
[2022-01-18 09:00] VITALS: BP 109/67; PULSE 81; RESP 18; TEMP 36.4; O2SAT 95
[2022-01-18] MEDS: hydroCHLOROthiazide 25 MG TABLET PO (11:19)
[2022-01-18] MEDS: Benztropine Mesylate 1 MG TABLET PO ×2 (11:19→21:09)
[2022-01-18] MEDS: cloZAPine 100 MG TABLET PO (11:19)
[2022-01-18] MEDS: HaloperidoL 5 MG TABLET PO ×2 (11:19→21:09)
[2022-01-18] MEDS: Lithium Carbonate 300 MG TABLET 450 MG PO ×2 (11:19→21:08)
[2022-01-18] MEDS: Desmopressin Acetate 0.2 MG TABLET PO ×2 (11:20→21:09)
[2022-01-18] MEDS: Apixaban 5 MG TABLET PO ×2 (11:20→21:09)
[2022-01-18] MEDS: polyethylene glycoL 3350 17 GM POWD.PACK PO (11:20)
[2022-01-18] MEDS: Docusate Sodium 100 MG CAPSULE PO (11:20)
[2022-01-18 12:55] LABS: Neut%MD 74.7 %; Neutrophils Absolute Auto 4.3 x10*3/uL (2.0-8.3); WBCANC 5.7 X10*3/uL
[2022-01-18 13:00] VITALS: PULSE 85; RESP 14; TEMP 36.2; O2SAT 96
--- NOTE | 2022-01-18 13:28 | P.PNPSI_ITS ---
Subjective Subjective Date of Service: 01/18/22 Reason For Visit: psychotic disorder Subjective Notes: Conditional Voluntary Interim History: the nursing staff reported the patient still has be refusing medications so she needed to have IM p.r.n. Haldol. She is very responding to internal stimuli. It has been goals in notice since we change Zyprexa to Haldol she has been more shaky and weak. She remains on one-to-one. The delinquency prevention social worker reported that she has been referred to several facilities and so far she is not eligible since she had COVID. On interview the patient remains internally preoccupied. We discussed options and we will change Haldol to Geodon IM due to increased EPS.. Mental Status Exam Mental Status Exam Patient Appearance: Disheveled Patient Orientation: Person Level of Consciousness: Awake Patient Behavior: Guarded and Passive Mood Description: Withdrawn Affect Description: Labile Patient Cognition Impaired: Yes Ability to Follow Directions: Fair Speech Pattern: Clear Hallucinations: Auditory Delusions: Paranoid Ideation Thought Process: Illogical Thought Content: positive for [place] and positive for [place] Judgement: Poor Diagnostics Vital Signs (24Hr): Vital Signs - 24 hr 01/17/22 17:00 01/17/22 21:00 Temperature 97.4 F 97.2 F Pulse Rate 81 85 Respiratory Rate 17 18 Blood Pressure 113/57 L Pulse Oximetry 100 95 BMI result Body Mass Index 26.8 Labs Results: 10/26/21 07:50 12/24/21 13:18 Labs: Laboratory Results - last 48 hr 01/18/22 12:49 Absolute Neuts (auto) 4.3 Imaging Radiology Impressions: ITS Impressions Head CT 10/08/21 15:16 IMPRESSION: No acute intracranial pathology. Head CT 10/09/21 13:54 IMPRESSION: No acute intracranial pathology. Pelvic/Transvag US 10/13/21 09:24 IMPRESSION: Abnormally thickened endometrium for a postmenopausal patient measuring 0.9 cm. 3 x 2.7 x 3.7 cm mass in the posterior cervix. This may represent a fibroid. Slightly thickened trabeculated bladder wall. Head CT 10/20/21 08:18 IMPRESSION: No acute intracranial pathology. This critical result was discussed with Dr. Chu at 8:30 hours on 10/20/2021. It was ascertained that the content and urgency of the report was understood at the time of direct communication. Head CT 11/20/21 19:29 IMPRESSION: No acute intracranial pathology. Medications Medications Current Medications Acetaminophen (Acetaminophen 325 Mg Tablet) 650 mg PO Q6H PRN PRN Reason: Headache/Pain Mild Scale (1-3) Last Admin: 01/17/22 20:48 Dose: 650 mg Documented by: Al Hydroxide/Mg Hydroxide (Magnesium Hydrox/Alum Hydrox 30 Ml Oral.Susp) 30 ml PO Q6H PRN PRN Reason: Heartburn/Nausea Apixaban (Apixaban 5 Mg Tablet) 5 mg PO BID [facility] Last Admin: 01/18/22 11:20 Dose: 5 mg Documented by: Benztropine Mesylate (Benztropine Mesylate 1 Mg Tablet) 1 mg PO BID [facility] Last Admin: 01/18/22 11:19 Dose: 1 mg Documented by: Bisacodyl (Bisacodyl 10 Mg Supp.Rect) 10 mg [place] DAILY PRN PRN Reason: Constipation Last Admin: 12/16/21 04:01 Dose: 10 mg Documented by: Clozapine (Clozapine 100 Mg Tablet) 100 mg PO DAILY [facility] Last Admin: 01/18/22 11:19 Dose: 100 mg Documented by: Clozapine (Clozapine 100 Mg Tablet) 200 mg PO DAILY@1700 [facility] Last Admin: 01/17/22 17:25 Dose: 200 mg Documented by: Clozapine (Clozapine 100 Mg Tablet) 300 mg PO BEDTIME [facility] Last Admin: 01/17/22 20:21 Dose: 300 mg Documented by: Desmopressin Acetate (Desmopressin Acetate 0.2 Mg Tablet) 0.2 mg PO BID [facility] Last Admin: 01/18/22 11:20 Dose: 0.2 mg Documented by: Docusate Sodium (Docusate Sodium 100 Mg Capsule) 100 mg PO BID [facility] Last Admin: 01/18/22 11:20 Dose: 100 mg Documented by: Haloperidol (Haloperidol 5 Mg Tablet) 5 mg PO BID [facility] Last Admin: 01/18/22 11:19 Dose: 5 mg Documented by: Haloperidol Lactate (Haloperidol Lactate 5 Mg/Ml Vial) 5 mg IM TID PRN PRN Reason: if patient refuses Clozaril Last Admin: 01/17/22 09:00 Dose: 5 mg Documented by: Hydrochlorothiazide (Hydrochlorothiazide 25 Mg Tablet) 25 mg PO DAILY [facility]; Protocol Last Admin: 01/18/22 11:19 Dose: 25 mg Documented by: Hydroxyzine HCl (Hydroxyzine Hcl 25 Mg Tablet) 25 mg PO BEDTIME PRN PRN Reason: Anxiety Last Admin: 01/10/22 22:47 Dose: 25 mg Documented by: Hydroxyzine HCl (Hydroxyzine Hcl 25 Mg Tablet) 25 mg PO BID PRN PRN Reason: Anxiety Last Admin: 01/16/22 15:10 Dose: 25 mg Documented by: [place] Carbonate ([place] Carbonate 300 Mg Tablet) 450 mg PO BID [facility] Last Admin: 01/18/22 11:19 Dose: 450 mg Documented by: Loperamide HCl (Loperamide Hcl 2 Mg Capsule) 4 mg PO Q4H PRN PRN Reason: Diarrhea Last Admin: 11/01/21 17:04 Dose: 4 mg Documented by: Magnesium Hydroxide (Milk Of Magnesia 30 Ml Oral.Susp) 30 ml PO DAILY PRN PRN Reason: Constipation Last Admin: 01/06/22 12:51 Dose: 30 ml Documented by: Mirtazapine (Mirtazapine 15 Mg Tablet) 15 mg PO BEDTIME [facility] Last Admin: 01/17/22 20:22 Dose: 15 mg Documented by: Polyethylene Glycol (Polyethylene Glycol 3350 17 Gm Powd.Pack) 17 gm PO BID [facility] Last Admin: 01/18/22 11:20 Dose: 17 gm Documented by: Potassium Chloride (Potassium Chloride Er 10 Meq Capsule.Er) 40 meq PO BID [facility] Last Admin: 01/18/22 11:23 Dose: 20 meq Documented by: Senna (Sennosides 8.6 Mg Tablet) 8.6 mg PO BEDTIME [facility] Last Admin: 01/17/22 20:23 Dose: 8.6 mg Documented by: Trazodone HCl (Trazodone Hcl 50 Mg Tablet) 50 mg PO BEDTIME PRN PRN Reason: Insomnia Last Admin: 01/10/22 22:47 Dose: 50 mg Documented by: Trolamine Salicylate/Aloe Vera (Trolamine Salicylate 10%/Aloe Cream 35.4 Gm) 1 appl TOPICAL TID PRN PRN Reason: neck pain Last Admin: 01/17/22 21:58 Dose: 1 appl Documented by: Allergies Allergies Allergy/AdvReac Type Severity Reaction Status Date / Time No Known Allergies Allergy Unverified 05/01/20 19:42 [No Known Allergies*] Assessment & Plan Assessment & Plan (1) Schizophrenia, paranoid, chronic with acute exacerbation: Status: Acute Code(s): F20.0 - Paranoid schizophrenia Assessment and Plan: cont clozapine tx plan monitor for oversedation (2) Hypertension: Status: Acute Code(s): I10 - Essential (primary) hypertension (3) Dementia: Status: Acute Code(s): F03.90 - Unspecified dementia without behavioral disturbance Plan Elderly female with a long history of schizoaffective disorder bipolar type who was admitted into the facility for exacerbation of psychosis and mood lability. The patient is on Clozaril and apparently she has not been fully compliant with treatment. 11/21 slipped, hit head on 11/20, head CT reviewed and unremarkable. We did a MOCA and she is technically demented at this moment Plan 1. The patient at this moment is on 3 psychotics, Clozaril , Haldol and Invega Sustenna. 2. Discontinue Haldol 5 mg IM if the patient refuses Clozaril and replace with Geodon IM. 3. keep same treatment. 4. COVID-19 protocol I spent __20____ minutes with the patient and/or on the patient floor today, greater than?50% of which was spent counseling/coordinating care. Reason for contiued inpatient stay Substantial Risk for: inability to function, rapid decompensation and med/psych decompensation
[2022-01-18 17:00] VITALS: PULSE 87; RESP 18; TEMP 36.6; O2SAT 97
[2022-01-18] MEDS: cloZAPine 100 MG TABLET 200 MG PO (17:14)
[2022-01-18] MEDS: Mirtazapine 15 MG TABLET PO (21:08)
[2022-01-18] MEDS: Sennosides 8.6 MG TABLET PO (21:09)
[2022-01-18] MEDS: cloZAPine 100 MG TABLET 300 MG PO (21:09)
[2022-01-18 21:18] VITALS: TEMP 36.4
[2022-01-18] MEDS: Acetaminophen 325 MG TABLET 650 MG PO (22:30)
[2022-01-19] MEDS: Docusate Sodium 100 MG CAPSULE PO (08:43)
[2022-01-19] MEDS: Benztropine Mesylate 1 MG TABLET PO ×2 (08:44→20:48)
[2022-01-19] MEDS: cloZAPine 100 MG TABLET PO (08:44)
[2022-01-19] MEDS: hydroCHLOROthiazide 25 MG TABLET PO (08:44)
[2022-01-19] MEDS: Desmopressin Acetate 0.2 MG TABLET PO ×2 (08:44→20:49)
[2022-01-19] MEDS: Lithium Carbonate 300 MG TABLET 450 MG PO ×2 (08:44→20:49)
[2022-01-19] MEDS: HaloperidoL 5 MG TABLET PO ×2 (08:44→20:49)
[2022-01-19] MEDS: Apixaban 5 MG TABLET PO ×2 (08:49→20:47)
--- NOTE | 2022-01-19 15:45 | HO.PSYCHPN ---
Subjective Subjective Date of Service: 01/19/22 Reason For Visit: psychotic disorder Subjective Notes: Conditional Voluntary Interim History: The nursing staff reported the patient was compliant with her medications and she did not need any IM medication. She was able to ambulate to the toilet several times without any problems. On interview the patient reports that she is not doing fine but she is easily redirectable, chronically psychotic at baseline. Mental Status Exam Mental Status Exam Patient Appearance: Appropriate Patient Orientation: Person and Situation Level of Consciousness: Awake Patient Behavior: Guarded and Passive Mood Description: Withdrawn Affect Description: Labile Patient Cognition Impaired: Yes Ability to Follow Directions: Fair Speech Pattern: Appropriate Hallucinations: Auditory Delusions: Paranoid Ideation Thought Process: Illogical Thought Content: positive for Loose Associations Judgement: Poor Diagnostics Vital Signs (24Hr): Vital Signs - 24 hr 01/18/22 17:00 01/18/22 21:18 Temperature 97.9 F 97.5 F Pulse Rate 87 Respiratory Rate 18 Pulse Oximetry 97 BMI result Body Mass Index 26.8 Labs Results: 10/26/21 07:50 12/24/21 13:18 Labs: Laboratory Results - last 48 hr 01/18/22 12:49 Absolute Neuts (auto) 4.3 Imaging Radiology Impressions: ITS Impressions Head CT 10/08/21 15:16 IMPRESSION: No acute intracranial pathology. Head CT 10/09/21 13:54 IMPRESSION: No acute intracranial pathology. Pelvic/Transvag US 10/13/21 09:24 IMPRESSION: Abnormally thickened endometrium for a postmenopausal patient measuring 0.9 cm. 3 x 2.7 x 3.7 cm mass in the posterior cervix. This may represent a fibroid. Slightly thickened trabeculated bladder wall. Head CT 10/20/21 08:18 IMPRESSION: No acute intracranial pathology. This critical result was discussed with Dr. Chu at 8:30 hours on 10/20/2021. It was ascertained that the content and urgency of the report was understood at the time of direct communication. Head CT 11/20/21 19:29 IMPRESSION: No acute intracranial pathology. Medications Medications Current Medications Acetaminophen (Acetaminophen 325 Mg Tablet) 650 mg PO Q6H PRN PRN Reason: Headache/Pain Mild Scale (1-3) Last Admin: 01/18/22 22:30 Dose: 650 mg Documented by: Al Hydroxide/Mg Hydroxide (Magnesium Hydrox/Alum Hydrox 30 Ml Oral.Susp) 30 ml PO Q6H PRN PRN Reason: Heartburn/Nausea Apixaban (Apixaban 5 Mg Tablet) 5 mg PO BID [facility] Last Admin: 01/19/22 08:49 Dose: 5 mg Documented by: Benztropine Mesylate (Benztropine Mesylate 1 Mg Tablet) 1 mg PO BID [facility] Last Admin: 01/19/22 08:44 Dose: 1 mg Documented by: Bisacodyl (Bisacodyl 10 Mg Supp.Rect) 10 mg [place] DAILY PRN PRN Reason: Constipation Last Admin: 12/16/21 04:01 Dose: 10 mg Documented by: Clozapine (Clozapine 100 Mg Tablet) 100 mg PO DAILY [facility] Last Admin: 01/19/22 08:44 Dose: 100 mg Documented by: Clozapine (Clozapine 100 Mg Tablet) 200 mg PO DAILY@1700 [facility] Last Admin: 01/18/22 17:14 Dose: 100 mg Documented by: Clozapine (Clozapine 100 Mg Tablet) 300 mg PO BEDTIME [facility] Last Admin: 01/18/22 21:09 Dose: 300 mg Documented by: Desmopressin Acetate (Desmopressin Acetate 0.2 Mg Tablet) 0.2 mg PO BID [facility] Last Admin: 01/19/22 08:44 Dose: 0.2 mg Documented by: Docusate Sodium (Docusate Sodium 100 Mg Capsule) 100 mg PO BID [facility] Last Admin: 01/19/22 08:43 Dose: 100 mg Documented by: Haloperidol (Haloperidol 5 Mg Tablet) 5 mg PO BID [facility] Last Admin: 01/19/22 08:44 Dose: 5 mg Documented by: Hydrochlorothiazide (Hydrochlorothiazide 25 Mg Tablet) 25 mg PO DAILY [facility]; Protocol Last Admin: 01/19/22 08:44 Dose: 25 mg Documented by: Hydroxyzine HCl (Hydroxyzine Hcl 25 Mg Tablet) 25 mg PO BEDTIME PRN PRN Reason: Anxiety Last Admin: 01/10/22 22:47 Dose: 25 mg Documented by: Hydroxyzine HCl (Hydroxyzine Hcl 25 Mg Tablet) 25 mg PO BID PRN PRN Reason: Anxiety Last Admin: 01/16/22 15:10 Dose: 25 mg Documented by: [place] Carbonate ([place] Carbonate 300 Mg Tablet) 450 mg PO BID [facility] Last Admin: 01/19/22 08:44 Dose: 450 mg Documented by: Loperamide HCl (Loperamide Hcl 2 Mg Capsule) 4 mg PO Q4H PRN PRN Reason: Diarrhea Last Admin: 11/01/21 17:04 Dose: 4 mg Documented by: Magnesium Hydroxide (Milk Of Magnesia 30 Ml Oral.Susp) 30 ml PO DAILY PRN PRN Reason: Constipation Last Admin: 01/06/22 12:51 Dose: 30 ml Documented by: Mirtazapine (Mirtazapine 15 Mg Tablet) 15 mg PO BEDTIME [facility] Last Admin: 01/18/22 21:08 Dose: 15 mg Documented by: Polyethylene Glycol (Polyethylene Glycol 3350 17 Gm Powd.Pack) 17 gm PO BID [facility] Last Admin: 01/19/22 08:59 Dose: Not Given Documented by: Potassium Chloride (Potassium Chloride Er 10 Meq Capsule.Er) 40 meq PO BID [facility] Last Admin: 01/19/22 08:59 Dose: Not Given Documented by: Senna (Sennosides 8.6 Mg Tablet) 8.6 mg PO BEDTIME [facility] Last Admin: 01/18/22 21:09 Dose: 8.6 mg Documented by: Trazodone HCl (Trazodone Hcl 50 Mg Tablet) 50 mg PO BEDTIME PRN PRN Reason: Insomnia Last Admin: 01/10/22 22:47 Dose: 50 mg Documented by: Trolamine Salicylate/Aloe Vera (Trolamine Salicylate 10%/Aloe Cream 35.4 Gm) 1 appl TOPICAL TID PRN PRN Reason: neck pain Last Admin: 01/19/22 02:14 Dose: 1 appl Documented by: Ziprasidone (Ziprasidone Mesylate 20 Mg Vial) 10 mg IM TID PRN PRN Reason: refusal of Clozapine Allergies Allergies Allergy/AdvReac Type Severity Reaction Status Date / Time No Known Allergies Allergy Unverified 05/01/20 19:42 [No Known Allergies*] Assessment & Plan Assessment & Plan (1) Schizophrenia, paranoid, chronic with acute exacerbation: Status: Acute Code(s): F20.0 - Paranoid schizophrenia Assessment and Plan: cont clozapine tx plan monitor for oversedation (2) Hypertension: Status: Acute Code(s): I10 - Essential (primary) hypertension (3) Dementia: Status: Acute Code(s): F03.90 - Unspecified dementia without behavioral disturbance Plan Elderly female with a long history of schizoaffective disorder bipolar type who was admitted into the facility for exacerbation of psychosis and mood lability. The patient is on Clozaril and apparently she has not been fully compliant with treatment. 11/21 slipped, hit head on 11/20, head CT reviewed and unremarkable. We did a MOCA and she is technically demented at this moment Plan 1. The patient at this moment is on 3 psychotics, Clozaril , Haldol and Invega Sustenna. 2. Discontinue Haldol 5 mg IM if the patient refuses Clozaril and replace with Geodon IM. 3. keep same treatment. 4. COVID-19 protocol I spent __20____ minutes with the patient and/or on the patient floor today, greater than?50% of which was spent counseling/coordinating care. Reason for contiued inpatient stay Substantial Risk for: inability to function, rapid decompensation and med/psych decompensation
[2022-01-19] MEDS: cloZAPine 100 MG TABLET 200 MG PO (18:17)
[2022-01-19] MEDS: Mirtazapine 15 MG TABLET PO (20:49)
[2022-01-19] MEDS: cloZAPine 100 MG TABLET 300 MG PO (20:49)
[2022-01-20 05:00] VITALS: BP 106/55; PULSE 85; RESP 19; TEMP 36.5; O2SAT 93
[2022-01-20 09:00] VITALS: BP 134/61; PULSE 94; RESP 16; TEMP 36.5; O2SAT 99
[2022-01-20] MEDS: hydroCHLOROthiazide 25 MG TABLET PO (10:37)
[2022-01-20] MEDS: Apixaban 5 MG TABLET PO ×2 (10:38→23:01)
[2022-01-20] MEDS: Docusate Sodium 100 MG CAPSULE PO ×2 (10:38→22:59)
[2022-01-20] MEDS: Desmopressin Acetate 0.2 MG TABLET PO ×2 (10:38→23:04)
[2022-01-20] MEDS: HaloperidoL 5 MG TABLET PO (10:39)
[2022-01-20] MEDS: Benztropine Mesylate 1 MG TABLET PO (10:39)
[2022-01-20] MEDS: Lithium Carbonate 300 MG TABLET 450 MG PO ×2 (10:39→23:02)
[2022-01-20] MEDS: cloZAPine 100 MG TABLET PO (10:39)
[2022-01-20] MEDS: polyethylene glycoL 3350 17 GM POWD.PACK PO (10:41)
[2022-01-20 14:00] VITALS: PULSE 81; RESP 16; TEMP 36.5; O2SAT 100
--- NOTE | 2022-01-20 14:14 | P.PNPSI_ITS ---
Subjective Subjective Date of Service: 01/20/22 Reason For Visit: psychotic disorder Subjective Notes: Conditional Voluntary Interim History: the nursing staff reported the patient states on one-to-one. Now she can walk with assistance since she is not on Haldol IM. The social services assistant reported that she was referred to several nursing homes and they are still reviewing. On interview the patient denies new symptoms and she was advised to be compliant with treatment Mental Status Exam Mental Status Exam Patient Appearance: Well Grooomed Patient Orientation: Person and Situation Level of Consciousness: Awake Patient Behavior: Appropriate Mood Description: Withdrawn Affect Description: Labile Patient Cognition Impaired: Yes Ability to Follow Directions: Good Speech Pattern: Clear Hallucinations: Auditory Delusions: Paranoid Ideation Thought Process: Illogical Thought Content: positive for Poverty of Content Judgement: Fair Diagnostics Vital Signs (24Hr): Vital Signs - 24 hr 01/20/22 05:00 01/20/22 09:00 Temperature 97.7 F 97.7 F Pulse Rate 85 94 Respiratory Rate 19 16 Blood Pressure 106/55 L 134/61 Pulse Oximetry 93 99 Oxygen Delivery Method Room Air Room Air BMI result Body Mass Index 26.8 Labs Results: 10/26/21 07:50 12/24/21 13:18 Imaging Radiology Impressions: ITS Impressions Head CT 10/08/21 15:16 IMPRESSION: No acute intracranial pathology. Head CT 10/09/21 13:54 IMPRESSION: No acute intracranial pathology. Pelvic/Transvag US 10/13/21 09:24 IMPRESSION: Abnormally thickened endometrium for a postmenopausal patient measuring 0.9 cm. 3 x 2.7 x 3.7 cm mass in the posterior cervix. This may represent a fibroid. Slightly thickened trabeculated bladder wall. Head CT 10/20/21 08:18 IMPRESSION: No acute intracranial pathology. This critical result was discussed with Dr. Chu at 8:30 hours on 10/20/2021. It was ascertained that the content and urgency of the report was understood at the time of direct communication. Head CT 11/20/21 19:29 IMPRESSION: No acute intracranial pathology. Medications Medications Current Medications Acetaminophen (Acetaminophen 325 Mg Tablet) 650 mg PO Q6H PRN PRN Reason: Headache/Pain Mild Scale (1-3) Last Admin: 01/18/22 22:30 Dose: 650 mg Al Hydroxide/Mg Hydroxide (Magnesium Hydrox/Alum Hydrox 30 Ml Oral.Susp) 30 ml PO Q6H PRN PRN Reason: Heartburn/Nausea Apixaban (Apixaban 5 Mg Tablet) 5 mg PO BID [facility] Last Admin: 01/20/22 10:38 Dose: 5 mg Benztropine Mesylate (Benztropine Mesylate 1 Mg Tablet) 1 mg PO BID [facility] Last Admin: 01/20/22 10:39 Dose: 1 mg Bisacodyl (Bisacodyl 10 Mg Supp.Rect) 10 mg [place] DAILY PRN PRN Reason: Constipation Last Admin: 12/16/21 04:01 Dose: 10 mg Clozapine (Clozapine 100 Mg Tablet) 100 mg PO DAILY [facility] Last Admin: 01/20/22 10:39 Dose: 100 mg Clozapine (Clozapine 100 Mg Tablet) 200 mg PO DAILY@1700 [facility] Last Admin: 01/19/22 18:17 Dose: 200 mg Clozapine (Clozapine 100 Mg Tablet) 300 mg PO BEDTIME [facility] Last Admin: 01/19/22 20:49 Dose: 300 mg Desmopressin Acetate (Desmopressin Acetate 0.2 Mg Tablet) 0.2 mg PO BID [facility] Last Admin: 01/20/22 10:38 Dose: 0.2 mg Docusate Sodium (Docusate Sodium 100 Mg Capsule) 100 mg PO BID [facility] Last Admin: 01/20/22 10:38 Dose: 100 mg Haloperidol (Haloperidol 5 Mg Tablet) 5 mg PO BID [facility] Last Admin: 01/20/22 10:39 Dose: 5 mg Hydrochlorothiazide (Hydrochlorothiazide 25 Mg Tablet) 25 mg PO DAILY [facility]; Prot ocol Last Admin: 01/20/22 10:37 Dose: 25 mg Hydroxyzine HCl (Hydroxyzine Hcl 25 Mg Tablet) 25 mg PO BEDTIME PRN PRN Reason: Anxiety Last Admin: 01/10/22 22:47 Dose: 25 mg Hydroxyzine HCl (Hydroxyzine Hcl 25 Mg Tablet) 25 mg PO BID PRN PRN Reason: Anxiety Last Admin: 01/16/22 15:10 Dose: 25 mg [place] Carbonate ([place] Carbonate 300 Mg Tablet) 450 mg PO BID [facility] Last Admin: 01/20/22 10:39 Dose: 450 mg Loperamide HCl (Loperamide Hcl 2 Mg Capsule) 4 mg PO Q4H PRN PRN Reason: Diarrhea Last Admin: 11/01/21 17:04 Dose: 4 mg Magnesium Hydroxide (Milk Of Magnesia 30 Ml Oral.Susp) 30 ml PO DAILY PRN PRN Reason: Constipation Last Admin: 01/06/22 12:51 Dose: 30 ml Mirtazapine (Mirtazapine 15 Mg Tablet) 15 mg PO BEDTIME [facility] Last Admin: 01/19/22 20:49 Dose: 15 mg Polyethylene Glycol (Polyethylene Glycol 3350 17 Gm Powd.Pack) 17 gm PO BID [facility] Last Admin: 01/20/22 10:41 Dose: 17 gm Potassium Chloride (Potassium Chloride Er 10 Meq Capsule.Er) 40 meq PO BID [facility] Last Admin: 01/20/22 11:12 Dose: Not Given Senna (Sennosides 8.6 Mg Tablet) 8.6 mg PO BEDTIME [facility] Last Admin: 01/19/22 21:25 Dose: Not Given Trazodone HCl (Trazodone Hcl 50 Mg Tablet) 50 mg PO BEDTIME PRN PRN Reason: Insomnia Last Admin: 01/10/22 22:47 Dose: 50 mg Trolamine Salicylate/Aloe Vera (Trolamine Salicylate 10%/Aloe Cream 35.4 Gm) 1 appl TOPICAL TID PRN PRN Reason: neck pain Last Admin: 01/19/22 02:14 Dose: 1 appl Ziprasidone (Ziprasidone Mesylate 20 Mg Vial) 10 mg IM TID PRN PRN Reason: refusal of Clozapine Allergies Allergies Allergy/AdvReac Type Severity Reaction Status Date / Time No Known Allergies Allergy Unverified 05/01/20 19:42 [No Known Allergies*] Assessment & Plan Assessment & Plan (1) Schizophrenia, paranoid, chronic with acute exacerbation: Status: Acute Code(s): F20.0 - Paranoid schizophrenia Assessment and Plan: cont clozapine tx plan monitor for oversedation (2) Hypertension: Status: Acute Code(s): I10 - Essential (primary) hypertension (3) Dementia: Status: Acute Code(s): F03.90 - Unspecified dementia without behavioral disturbance Plan Elderly female with a long history of schizoaffective disorder bipolar type who was admitted into the facility for exacerbation of psychosis and mood lability. The patient is on Clozaril and apparently she has not been fully compliant with treatment. 11/21 slipped, hit head on 11/20, head CT reviewed and unremarkable. We did a MOCA and she is technically demented at this moment Plan 1. The patient at this moment is on 3 psychotics, Clozaril , Haldol and Invega Sustenna. 2. Discontinue Haldol 5 mg IM if the patient refuses Clozaril and replace with Geodon IM. 3. keep same treatment. 4. COVID-19 protocol I spent ___20___ minutes with the patient and/or on the patient floor today, greater than?50% of which was spent counseling/coordinating care. Reason for contiued inpatient stay Substantial Risk for: inability to function, rapid decompensation and med/psych decompensation
[2022-01-20] MEDS: cloZAPine 100 MG TABLET 200 MG PO (16:49)
[2022-01-20 18:00] VITALS: BP 98/56; PULSE 85; RESP 16; TEMP 36; O2SAT 96
[2022-01-20] MEDS: Mirtazapine 15 MG TABLET PO (23:01)
[2022-01-20] MEDS: cloZAPine 100 MG TABLET 300 MG PO (23:02)
[2022-01-20] MEDS: Sennosides 8.6 MG TABLET PO (23:02)
[2022-01-20] MEDS: Acetaminophen 325 MG TABLET 650 MG PO (23:34)
[2022-01-20] MEDS: traZODone HCL 50 MG TABLET PO (23:42)
[2022-01-21 07:00] VITALS: BMI 26.5
[2022-01-21 08:26] VITALS: BP 97/54; PULSE 88; RESP 14; TEMP 36.5; O2SAT 94
[2022-01-21] MEDS: Apixaban 5 MG TABLET PO ×2 (10:53→20:07)
[2022-01-21] MEDS: hydroCHLOROthiazide 25 MG TABLET PO (10:53)
[2022-01-21] MEDS: Benztropine Mesylate 1 MG TABLET PO ×2 (10:54→20:07)
[2022-01-21] MEDS: Docusate Sodium 100 MG CAPSULE PO ×2 (10:54→20:08)
[2022-01-21] MEDS: HaloperidoL 5 MG TABLET PO ×2 (10:54→20:08)
[2022-01-21] MEDS: cloZAPine 100 MG TABLET PO (10:55)
[2022-01-21] MEDS: Desmopressin Acetate 0.2 MG TABLET PO ×2 (10:55→20:08)
[2022-01-21] MEDS: Lithium Carbonate 300 MG TABLET 450 MG PO ×2 (10:56→20:09)
[2022-01-21] MEDS: polyethylene glycoL 3350 17 GM POWD.PACK PO ×2 (10:57→20:08)
[2022-01-21 13:30] VITALS: BP 125/59; PULSE 89; RESP 16; TEMP 36.9; O2SAT 96
--- NOTE | 2022-01-21 15:19 | HO.PSYCHPN ---
Subjective Subjective Date of Service: 01/21/22 Reason For Visit: psychotic disorder Subjective Notes: Conditional Voluntary Interim History: The nursing staff reported the patient initially refused her medications but she took it with a lot of encouragement. She did not take the Haldol p.o. but there was no need to use the IM backup. On interview the patient denies new symptoms Mental Status Exam Mental Status Exam Patient Appearance: Appropriate Patient Orientation: Person and Situation Level of Consciousness: Awake Patient Behavior: Guarded and Passive Mood Description: Withdrawn Affect Description: Labile Patient Cognition Impaired: Yes Ability to Follow Directions: Good Speech Pattern: Clear Hallucinations: Auditory Delusions: Paranoid Ideation and Grandiose Perceptual Disturbances: Hallucinations Thought Process: Illogical Thought Content: positive for [place] and positive for Poverty of Content Judgement: Poor Diagnostics Vital Signs (24Hr): Vital Signs - 24 hr 01/20/22 18:00 01/21/22 08:26 01/21/22 13:30 Temperature 96.8 F 97.7 F 98.5 F Pulse Rate 85 88 89 Respiratory Rate 16 14 16 Blood Pressure 98/56 L 97/54 L 125/59 L Pulse Oximetry 96 94 96 Oxygen Delivery Method Room Air Room Air Room Air BMI result Body Mass Index 26.5 Labs Results: 10/26/21 07:50 12/24/21 13:18 Imaging Radiology Impressions: ITS Impressions Head CT 10/08/21 15:16 IMPRESSION: No acute intracranial pathology. Head CT 10/09/21 13:54 IMPRESSION: No acute intracranial pathology. Pelvic/Transvag US 10/13/21 09:24 IMPRESSION: Abnormally thickened endometrium for a postmenopausal patient measuring 0.9 cm. 3 x 2.7 x 3.7 cm mass in the posterior cervix. This may represent a fibroid. Slightly thickened trabeculated bladder wall. Head CT 10/20/21 08:18 IMPRESSION: No acute intracranial pathology. This critical result was discussed with Dr. Chu at 8:30 hours on 10/20/2021. It was ascertained that the content and urgency of the report was understood at the time of direct communication. Head CT 11/20/21 19:29 IMPRESSION: No acute intracranial pathology. Medications Medications Current Medications Acetaminophen (Acetaminophen 325 Mg Tablet) 650 mg PO Q6H PRN PRN Reason: Headache/Pain Mild Scale (1-3) Last Admin: 01/20/22 23:34 Dose: 650 mg Al Hydroxide/Mg Hydroxide (Magnesium Hydrox/Alum Hydrox 30 Ml Oral.Susp) 30 ml PO Q6H PRN PRN Reason: Heartburn/Nausea Apixaban (Apixaban 5 Mg Tablet) 5 mg PO BID [facility] Last Admin: 01/21/22 10:53 Dose: 5 mg Benztropine Mesylate (Benztropine Mesylate 1 Mg Tablet) 1 mg PO BID [facility] Last Admin: 01/21/22 10:54 Dose: 1 mg Bisacodyl (Bisacodyl 10 Mg Supp.Rect) 10 mg [place] DAILY PRN PRN Reason: Constipation Last Admin: 12/16/21 04:01 Dose: 10 mg Clozapine (Clozapine 100 Mg Tablet) 100 mg PO DAILY [facility] Last Admin: 01/21/22 10:55 Dose: 100 mg Clozapine (Clozapine 100 Mg Tablet) 200 mg PO DAILY@1700 [facility] Last Admin: 01/20/22 16:49 Dose: 200 mg Clozapine (Clozapine 100 Mg Tablet) 300 mg PO BEDTIME [facility] Last Admin: 01/20/22 23:02 Dose: 300 mg Desmopressin Acetate (Desmopressin Acetate 0.2 Mg Tablet) 0.2 mg PO BID [facility] Last Admin: 01/21/22 10:55 Dose: 0.2 mg Docusate Sodium (Docusate Sodium 100 Mg Capsule) 100 mg PO BID [facility] Last Admin: 01/21/22 10:54 Dose: 100 mg Haloperidol (Haloperidol 5 Mg Tablet) 5 mg PO BID [facility] Last Admin: 01/21/22 10:54 Dose: 5 mg Hydrochlorothiazide (Hydrochlorothiazide 25 Mg Tablet) 25 mg PO DAILY [facility]; Protocol Last Admin: 01/21/22 10:53 Dose: 25 mg Hydroxyzine HCl (Hydroxyzine Hcl 25 Mg Tablet) 25 mg PO BEDTIME PRN PRN Reason: Anxiety Last Admin: 01/10/22 22:47 Dose: 25 mg Hydroxyzine HCl (Hydroxyzine Hcl 25 Mg Tablet) 25 mg PO BID PRN PRN Reason: Anxiety Last Admin: 01/16/22 15:10 Dose: 25 mg Ketoconazole (Ketoconazole 2 % Shampoo 120 Ml Btl) 1 appl TOPICAL Q3D [facility]; Protocol [place] Carbonate ([place] Carbonate 300 Mg Tablet) 450 mg PO BID [facility] Last Admin: 01/21/22 10:56 Dose: 450 mg Loperamide HCl (Loperamide Hcl 2 Mg Capsule) 4 mg PO Q4H PRN PRN Reason: Diarrhea Last Admin: 11/01/21 17:04 Dose: 4 mg Magnesium Hydroxide (Milk Of Magnesia 30 Ml Oral.Susp) 30 ml PO DAILY PRN PRN Reason: Constipation Last Admin: 01/06/22 12:51 Dose: 30 ml Mirtazapine (Mirtazapine 15 Mg Tablet) 15 mg PO BEDTIME [facility] Last Admin: 01/20/22 23:01 Dose: 15 mg Polyethylene Glycol (Polyethylene Glycol 3350 17 Gm Powd.Pack) 17 gm PO BID [facility] Last Admin: 01/21/22 10:57 Dose: 17 gm Potassium Chloride (Potassium Chloride Er 10 Meq Capsule.Er) 40 meq PO BID [facility] Last Admin: 01/21/22 11:01 Dose: 10 meq Senna (Sennosides 8.6 Mg Tablet) 8.6 mg PO BEDTIME [facility] Last Admin: 01/20/22 23:02 Dose: 8.6 mg Trazodone HCl (Trazodone Hcl 50 Mg Tablet) 50 mg PO BEDTIME PRN PRN Reason: Insomnia Last Admin: 01/20/22 23:42 Dose: 50 mg Trolamine Salicylate/Aloe Vera (Trolamine Salicylate 10%/Aloe Cream 35.4 Gm) 1 appl TOPICAL TID PRN PRN Reason: neck pain Last Admin: 01/19/22 02:14 Dose: 1 appl Ziprasidone (Ziprasidone Mesylate 20 Mg Vial) 10 mg IM TID PRN PRN Reason: refusal of Clozapine Allergies Allergies Allergy/AdvReac Type Severity Reaction Status Date / Time No Known Allergies Allergy Unverified 05/01/20 19:42 [No Known Allergies*] Assessment & Plan Assessment & Plan (1) Schizophrenia, paranoid, chronic with acute exacerbation: Status: Acute Code(s): F20.0 - Paranoid schizophrenia Assessment and Plan: cont clozapine tx plan monitor for oversedation (2) Hypertension: Status: Acute Code(s): I10 - Essential (primary) hypertension (3) Dementia: Status: Acute Code(s): F03.90 - Unspecified dementia without behavioral disturbance Plan Elderly female with a long history of schizoaffective disorder bipolar type who was admitted into the facility for exacerbation of psychosis and mood lability. The patient is on Clozaril and apparently she has not been fully compliant with treatment. 11/21 slipped, hit head on 11/20, head CT reviewed and unremarkable. We did a MOCA and she is technically demented at this moment Plan 1. The patient at this moment is on 3 psychotics, Clozaril , Haldol and Invega Sustenna. 2. Discontinue Haldol 5 mg IM if the patient refuses Clozaril and replace with Geodon IM. 3. keep same treatment. 4. COVID-19 protocol 5. Blood work for tomorrow I spent __20____ minutes with the patient and/or on the patient floor today, greater than?50% of which was spent counseling/coordinating care. Reason for contiued inpatient stay Substantial Risk for: inability to function, rapid decompensation and med/psych decompensation
[2022-01-21] MEDS: Ziprasidone Mesylate 20 MG VIAL 10 MG IM (17:12)
[2022-01-21] MEDS: Clotrimazole 1 % Cream 15 GM TUBE 1 APPL TOPICAL (17:23)
[2022-01-21] MEDS: Mirtazapine 15 MG TABLET PO (20:08)
[2022-01-21] MEDS: cloZAPine 100 MG TABLET 300 MG PO (20:08)
[2022-01-21] MEDS: Sennosides 8.6 MG TABLET PO (20:08)
[2022-01-21 21:00] VITALS: BP 122/61; PULSE 85; RESP 19; TEMP 36.6; O2SAT 99
[2022-01-22 08:11] LABS: MANUAL DIFF FLAG NO
[2022-01-22 08:14] LABS: Basophils Percent Auto 0.3 % (0-2); Hemoglobin 12.1 g/dl (12.0-16.0); Imm Gran Abs Auto 0.09 X10*3/uL (0.00-0.03); Imm Gran Pct Auto 1.4 % (0.0-0.4); Lymphocytes Absolute Auto 1.3 X10*3/uL (1.2-4.9); Lymphocytes Percent Auto 21.1 % (20-40); Mean Corpuscular Hemoglobin 23.2 pg (27.0-33.0); Mean Corpuscular Volume 74.9 fL (80.0-98.0); Mean Platelet Volume 10.1 fL (9.4-12.3); Monocytes Absolute Auto 0.8 X10*3/uL (0.1-1.2); Monocytes Percent Auto 11.8 % (2-11); Neutrophils Absolute Auto 4.2 x10*3/uL (2.0-8.3); Neutrophils Percent Auto 65.4 % (45-73); Platelet Count 207 X10*3/uL (160-400); Red Blood Count 5.21 X10*6/uL (4.20-5.50); Red Cell Distribution Width 13.8 % (11.0-16.0); White Blood Count 6.4 X10*3/uL (4.8-10.8)
[2022-01-22 08:24] LABS: Estimated Average Glucose 97 mg/dL; Lithium 1.44 mmol/L (0.60-1.20)
[2022-01-22 08:34] LABS: Alanine Aminotransferase 15 U/L (0-31); Albumin Level 3.8 g/dL (3.5-5.0); Alkaline Phosphatase 133 U/L (39-117); Anion Gap 9 (12-20); Aspartate Amino Transferase 15 U/L (5-31); Bilirubin Direct < 0.2 mg/dL (0.0-0.5); Bilirubin Total 0.3 mg/dL (0.0-1.0); Blood Urea Nitrogen 15 mg/dL (9-16); Calcium 11.3 mg/dL (8.4-10.2); Carbon Dioxide 27 mmol/L (22-29); Chloride 109 mmol/L (96-108); Cholesterol 178 mg/dL; Estimated Glomerular Filt Rate > 60; Glucose Random 98 mg/dL (60-115); HDL Cholesterol 38 mg/dL; LDL Cholesterol Calculated 117 mg/dl; Potassium 3.8 mmol/L (3.3-5.1); Sodium 141 mmol/L (135-145); Triglycerides 115 mg/dL
[2022-01-22 08:52] LABS: Thyroid Stimulating Hormone 1.98 uIU/mL (0.32-4.0)
[2022-01-22] MEDS: Docusate Sodium 100 MG CAPSULE PO (08:57)
[2022-01-22] MEDS: cloZAPine 100 MG TABLET PO (08:57)
[2022-01-22] MEDS: Apixaban 5 MG TABLET PO ×2 (08:57→21:12)
[2022-01-22] MEDS: Benztropine Mesylate 1 MG TABLET PO ×2 (08:57→21:11)
[2022-01-22] MEDS: hydroCHLOROthiazide 25 MG TABLET PO (08:57)
[2022-01-22] MEDS: Desmopressin Acetate 0.2 MG TABLET PO ×2 (08:57→21:12)
[2022-01-22] MEDS: Lithium Carbonate 300 MG TABLET 450 MG PO ×2 (08:58→21:12)
[2022-01-22] MEDS: HaloperidoL 5 MG TABLET PO ×2 (08:58→21:11)
[2022-01-22 09:00] VITALS: BP 98/50; PULSE 85; RESP 18; TEMP 36.4; O2SAT 95
[2022-01-22] MEDS: polyethylene glycoL 3350 17 GM POWD.PACK PO (09:00)
--- NOTE | 2022-01-22 11:37 | P.PNPSI_ITS ---
Subjective Subjective Date of Service: 01/22/22 Reason For Visit: psychotic disorder Subjective Notes: Conditional Voluntary Interim History: the nursing staff reported the patient has been compliant with treatment with encouragement, she is recuperating of COVID infection fairly well. Today her laboratory tests came back positive with lithium 1.44. Historically she has always been on the 0.6 range at that low dose. We will repeat lithium levels for tomorrow and reassess. Mental Status Exam Mental Status Exam Patient Appearance: Appropriate Patient Orientation: Person and Situation Level of Consciousness: Awake Patient Behavior: Cooperative Mood Description: Withdrawn Affect Description: Constricted Patient Cognition Impaired: Yes Ability to Follow Directions: Good Speech Pattern: Clear Hallucinations: Auditory Delusions: Paranoid Ideation Thought Process: Linear Thought Content: positive for [place] and positive for Poverty of Content Judgement: Fair Diagnostics Vital Signs (24Hr): Vital Signs - 24 hr 01/21/22 13:30 01/21/22 21:00 01/22/22 09:00 Temperature 98.5 F 97.8 F 97.6 F Pulse Rate 89 85 85 Respiratory Rate 16 19 18 Blood Pressure 125/59 L 122/61 98/50 L Pulse Oximetry 96 99 95 Oxygen Delivery Method Room Air Room Air Room Air BMI result Body Mass Index 26.5 Labs Results: 01/22/22 08:07 01/22/22 08:07 Labs: Laboratory Results - last 48 hr 01/22/22 01/22/22 01/22/22 08:07 08:07 08:07 WBC 6.4 RBC 5.21 Hgb 12.1 Hct 39.0 MCV 74.9 L MCH 23.2 L MCHC 31.0 RDW 13.8 Plt Count 207 MPV 10.1 Immature Gran % (Auto) 1.4 H Neut % (Auto) 65.4 Lymph % (Auto) 21.1 [place] % (Auto) 11.8 H Eos % (Auto) 0.0 Baso % (Auto) 0.3 Lymph # (Auto) 1.3 [place] # (Auto) 0.8 Eos # (Auto) 0.0 Baso # (Auto) 0.0 Abs Immat Gran (auto) 0.09 H Absolute Neuts (auto) 4.2 Absolute Nucleated RBC 0.000 Nucleated RBC % (auto) 0.0 Sodium 141 Potassium 3.8 Chloride 109 H Carbon Dioxide 27 Anion Gap 9 L BUN 15 Creatinine 0.84 Estim Creat Clear Calc 57.0 Estimated GFR > 60 Random Glucose 98 Estimat Average Glucose 97 Hemoglobin A1c % 5.0 Calcium 11.3 H Total Bilirubin 0.3 Direct Bilirubin < 0.2 AST 15 ALT 15 Alkaline Phosphatase 133 H D Total Protein 6.0 L Albumin 3.8 Triglycerides 115 Cholesterol 178 LDL Cholesterol, Calc 117 HDL Cholesterol 38 TSH 1.98 [place] 01/22/22 08:07 WBC RBC Hgb Hct MCV MCH MCHC RDW Plt Count MPV Immature Gran % (Auto) Neut % (Auto) Lymph % (Auto) [place] % (Auto) Eos % (Auto) Baso % (Auto) Lymph # (Auto) [place] # (Auto) Eos # (Auto) Baso # (Auto) Abs Immat Gran (auto) Absolute Neuts (auto) Absolute Nucleated RBC Nucleated RBC % (auto) Sodium Potassium Chloride Carbon Dioxide Anion Gap BUN Creatinine Estim Creat Clear Calc Estimated GFR Random Glucose Estimat Average Glucose Hemoglobin A1c % Calcium Total Bilirubin Direct Bilirubin AST ALT Alkaline Phosphatase Total Protein Albumin Triglycerides Cholesterol LDL Cholesterol, Calc HDL Cholesterol TSH [place] 1.44 H Imaging Radiology Impressions: ITS Impressions Head CT 10/08/21 15:16 IMPRESSION: No acute intracranial pathology. Head CT 10/09/21 13:54 IMPRESSION: No acute intracranial pathology. Pelvic/Transvag US 10/13/21 09:24 IMPRESSION: Abnormally thickened endometrium for a postmenopausal patient measuring 0.9 cm. 3 x 2.7 x 3.7 cm mass in the posterior cervix. This may represent a fibroid. Slightly thickened trabeculated bladder wall. Head CT 10/20/21 08:18 IMPRESSION: No acute intracranial pathology. This critical result was discussed with Dr. Chu at 8:30 hours on 10/20/2021. It was ascertained that the content and urgency of the report was understood at the time of direct communication. Head CT 11/20/21 19:29 IMPRESSION: No acute intracranial pathology. Medications Medications Current Medications Acetaminophen (Acetaminophen 325 Mg Tablet) 650 mg PO Q6H PRN PRN Reason: Headache/Pain Mild Scale (1-3) Last Admin: 01/20/22 23:34 Dose: 650 mg Al Hydroxide/Mg Hydroxide (Magnesium Hydrox/Alum Hydrox 30 Ml Oral.Susp) 30 ml PO Q6H PRN PRN Reason: Heartburn/Nausea Apixaban (Apixaban 5 Mg Tablet) 5 mg PO BID [facility] Last Admin: 01/22/22 08:57 Dose: 5 mg Benztropine Mesylate (Benztropine Mesylate 1 Mg Tablet) 1 mg PO BID [facility] Last Admin: 01/22/22 08:57 Dose: 1 mg Bisacodyl (Bisacodyl 10 Mg Supp.Rect) 10 mg [place] DAILY PRN PRN Reason: Constipation Last Admin: 12/16/21 04:01 Dose: 10 mg Clozapine (Clozapine 100 Mg Tablet) 100 mg PO DAILY [facility] Last Admin: 01/22/22 08:57 Dose: 100 mg Clozapine (Clozapine 100 Mg Tablet) 200 mg PO DAILY@1700 [facility] Last Admin: 01/21/22 17:12 Dose: Not Given Clozapine (Clozapine 100 Mg Tablet) 300 mg PO BEDTIME [facility] Last Admin: 01/21/22 20:08 Dose: 300 mg Desmopressin Acetate (Desmopressin Acetate 0.2 Mg Tablet) 0.2 mg PO BID [facility] Last Admin: 01/22/22 08:57 Dose: 0.2 mg Docusate Sodium (Docusate Sodium 100 Mg Capsule) 100 mg PO BID [facility] Last Admin: 01/22/22 08:57 Dose: 100 mg Haloperidol (Haloperidol 5 Mg Tablet) 5 mg PO BID [facility] Last Admin: 01/22/22 08:58 Dose: 5 mg Hydrochlorothiazide (Hydrochlorothiazide 25 Mg Tablet) 25 mg PO DAILY [facility]; Protocol Last Admin: 01/22/22 08:57 Dose: 25 mg Hydroxyzine HCl (Hydroxyzine Hcl 25 Mg Tablet) 25 mg PO BEDTIME PRN PRN Reason: Anxiety Last Admin: 01/10/22 22:47 Dose: 25 mg Hydroxyzine HCl (Hydroxyzine Hcl 25 Mg Tablet) 25 mg PO BID PRN PRN Reason: Anxiety Last Admin: 01/16/22 15:10 Dose: 25 mg [place] Carbonate ([place] Carbonate 300 Mg Tablet) 450 mg PO BID [facility] Last Admin: 01/22/22 08:58 Dose: 450 mg Loperamide HCl (Loperamide Hcl 2 Mg Capsule) 4 mg PO Q4H PRN PRN Reason: Diarrhea Last Admin: 11/01/21 17:04 Dose: 4 mg Magnesium Hydroxide (Milk Of Magnesia 30 Ml Oral.Susp) 30 ml PO DAILY PRN PRN Reason: Constipation Last Admin: 01/06/22 12:51 Dose: 30 ml Mirtazapine (Mirtazapine 15 Mg Tablet) 15 mg PO BEDTIME [facility] Last Admin: 01/21/22 20:08 Dose: 15 mg Polyethylene Glycol (Polyethylene Glycol 3350 17 Gm Powd.Pack) 17 gm PO BID [facility] Last Admin: 01/22/22 09:00 Dose: 17 gm Potassium Chloride (Potassium Chloride Er 10 Meq Capsule.Er) 40 meq PO BID [facility] Last Admin: 01/22/22 08:59 Dose: 40 meq Senna (Sennosides 8.6 Mg Tablet) 8.6 mg PO BEDTIME [facility] Last Admin: 01/21/22 20:08 Dose: 8.6 mg Trazodone HCl (Trazodone Hcl 50 Mg Tablet) 50 mg PO BEDTIME PRN PRN Reason: Insomnia Last Admin: 01/20/22 23:42 Dose: 50 mg Trolamine Salicylate/Aloe Vera (Trolamine Salicylate 10%/Aloe Cream 35.4 Gm) 1 appl TOPICAL TID PRN PRN Reason: neck pain Last Admin: 01/19/22 02:14 Dose: 1 appl Ziprasidone (Ziprasidone Mesylate 20 Mg Vial) 10 mg IM TID PRN PRN Reason: refusal of Clozapine Last Admin: 01/21/22 17:12 Dose: 10 mg Allergies Allergies Allergy/AdvReac Type Severity Reaction Status Date / Time No Known Allergies Allergy Unverified 05/01/20 19:42 [No Known Allergies*] Assessment & Plan Assessment & Plan (1) Schizophrenia, paranoid, chronic with acute exacerbation: Status: Acute Code(s): F20.0 - Paranoid schizophrenia Assessment and Plan: cont clozapine tx plan monitor for oversedation (2) Hypertension: Status: Acute Code(s): I10 - Essential (primary) hypertension (3) Dementia: Status: Acute Code(s): F03.90 - Unspecified dementia without behavioral disturbance Plan Elderly female with a long history of schizoaffective disorder bipolar type who was admitted into the facility for exacerbation of psychosis and mood lability. The patient is on Clozaril and apparently she has not been fully compliant with treatment. 11/21 slipped, hit head on 11/20, head CT reviewed and unremarkable. We did a MOCA and she is technically demented at this moment Plan 1. The patient at this moment is on 3 psychotics, Clozaril , Haldol and Invega Sustenna. 2. Discontinue Haldol 5 mg IM if the patient refuses Clozaril and replace with Geodon IM. 3. keep same treatment. 4. COVID-19 protocol 5. Blood work for tomorrow , repeat lithium level I spent ___20___ minutes with the patient and/or on the patient floor today, greater than?50% of which was spent counseling/coordinating care. Reason for contiued inpatient stay Substantial Risk for: inability to function, rapid decompensation and med/psych decompensation
--- NOTE | 2022-01-22 11:48 | HO.PSYCHPN ---
Subjective Subjective Date of Service: 01/22/22 Reason For Visit: psychotic disorder Subjective Notes: Conditional Voluntary Interim History: The nursing staff reported the patient has been compliant with treatment, she needed to have a lot of encouragement to be fully compliant with treatment. On interview the patient was as usual, cooperative but delusional, very easy to be redirected. Mental Status Exam Mental Status Exam Patient Appearance: Well Grooomed Patient Orientation: Person and Situation Level of Consciousness: Awake Patient Behavior: Cooperative Mood Description: Withdrawn Affect Description: Constricted Patient Cognition Impaired: Yes Ability to Follow Directions: Good Speech Pattern: Clear Hallucinations: Auditory Delusions: Paranoid Ideation Thought Process: Distracted Thought Content: positive for [place] and positive for Poverty of Content Judgement: Fair Diagnostics Vital Signs (24Hr): Vital Signs - 24 hr 01/21/22 13:30 01/21/22 21:00 01/22/22 09:00 Temperature 98.5 F 97.8 F 97.6 F Pulse Rate 89 85 85 Respiratory Rate 16 19 18 Blood Pressure 125/59 L 122/61 98/50 L Pulse Oximetry 96 99 95 Oxygen Delivery Method Room Air Room Air Room Air BMI result Body Mass Index 26.5 Labs Results: 01/22/22 08:07 01/22/22 08:07 Labs: Laboratory Results - last 48 hr 01/22/22 01/22/22 01/22/22 08:07 08:07 08:07 WBC 6.4 RBC 5.21 Hgb 12.1 Hct 39.0 MCV 74.9 L MCH 23.2 L MCHC 31.0 RDW 13.8 Plt Count 207 MPV 10.1 Immature Gran % (Auto) 1.4 H Neut % (Auto) 65.4 Lymph % (Auto) 21.1 [place] % (Auto) 11.8 H Eos % (Auto) 0.0 Baso % (Auto) 0.3 Lymph # (Auto) 1.3 [place] # (Auto) 0.8 Eos # (Auto) 0.0 Baso # (Auto) 0.0 Abs Immat Gran (auto) 0.09 H Absolute Neuts (auto) 4.2 Absolute Nucleated RBC 0.000 Nucleated RBC % (auto) 0.0 Sodium 141 Potassium 3.8 Chloride 109 H Carbon Dioxide 27 Anion Gap 9 L BUN 15 Creatinine 0.84 Estim Creat Clear Calc 57.0 Estimated GFR > 60 Random Glucose 98 Estimat Average Glucose 97 Hemoglobin A1c % 5.0 Calcium 11.3 H Total Bilirubin 0.3 Direct Bilirubin < 0.2 AST 15 ALT 15 Alkaline Phosphatase 133 H D Total Protein 6.0 L Albumin 3.8 Triglycerides 115 Cholesterol 178 LDL Cholesterol, Calc 117 HDL Cholesterol 38 TSH 1.98 [place] 01/22/22 08:07 WBC RBC Hgb Hct MCV MCH MCHC RDW Plt Count MPV Immature Gran % (Auto) Neut % (Auto) Lymph % (Auto) [place] % (Auto) Eos % (Auto) Baso % (Auto) Lymph # (Auto) [place] # (Auto) Eos # (Auto) Baso # (Auto) Abs Immat Gran (auto) Absolute Neuts (auto) Absolute Nucleated RBC Nucleated RBC % (auto) Sodium Potassium Chloride Carbon Dioxide Anion Gap BUN Creatinine Estim Creat Clear Calc Estimated GFR Random Glucose Estimat Average Glucose Hemoglobin A1c % Calcium Total Bilirubin Direct Bilirubin AST ALT Alkaline Phosphatase Total Protein Albumin Triglycerides Cholesterol LDL Cholesterol, Calc HDL Cholesterol TSH [place] 1.44 H Imaging Radiology Impressions: ITS Impressions Head CT 10/08/21 15:16 IMPRESSION: No acute intracranial pathology. Head CT 10/09/21 13:54 IMPRESSION: No acute intracranial pathology. Pelvic/Transvag US 10/13/21 09:24 IMPRESSION: Abnormally thickened endometrium for a postmenopausal patient measuring 0.9 cm. 3 x 2.7 x 3.7 cm mass in the posterior cervix. This may represent a fibroid. Slightly thickened trabeculated bladder wall. Head CT 10/20/21 08:18 IMPRESSION: No acute intracranial pathology. This critical result was discussed with Dr. Chu at 8:30 hours on 10/20/2021. It was ascertained that the content and urgency of the report was understood at the time of direct communication. Head CT 11/20/21 19:29 IMPRESSION: No acute intracranial pathology. Medications Medications Current Medications Acetaminophen (Acetaminophen 325 Mg Tablet) 650 mg PO Q6H PRN PRN Reason: Headache/Pain Mild Scale (1-3) Last Admin: 01/20/22 23:34 Dose: 650 mg Al Hydroxide/Mg Hydroxide (Magnesium Hydrox/Alum Hydrox 30 Ml Oral.Susp) 30 ml PO Q6H PRN PRN Reason: Heartburn/Nausea Apixaban (Apixaban 5 Mg Tablet) 5 mg PO BID [facility] Last Admin: 01/22/22 08:57 Dose: 5 mg Benztropine Mesylate (Benztropine Mesylate 1 Mg Tablet) 1 mg PO BID [facility] Last Admin: 01/22/22 08:57 Dose: 1 mg Bisacodyl (Bisacodyl 10 Mg Supp.Rect) 10 mg [place] DAILY PRN PRN Reason: Constipation Last Admin: 12/16/21 04:01 Dose: 10 mg Clozapine (Clozapine 100 Mg Tablet) 100 mg PO DAILY [facility] Last Admin: 01/22/22 08:57 Dose: 100 mg Clozapine (Clozapine 100 Mg Tablet) 200 mg PO DAILY@1700 [facility] Last Admin: 01/21/22 17:12 Dose: Not Given Clozapine (Clozapine 100 Mg Tablet) 300 mg PO BEDTIME [facility] Last Admin: 01/21/22 20:08 Dose: 300 mg Desmopressin Acetate (Desmopressin Acetate 0.2 Mg Tablet) 0.2 mg PO BID [facility] Last Admin: 01/22/22 08:57 Dose: 0.2 mg Docusate Sodium (Docusate Sodium 100 Mg Capsule) 100 mg PO BID [facility] Last Admin: 01/22/22 08:57 Dose: 100 mg Haloperidol (Haloperidol 5 Mg Tablet) 5 mg PO BID [facility] Last Admin: 01/22/22 08:58 Dose: 5 mg Hydrochlorothiazide (Hydrochlorothiazide 25 Mg Tablet) 25 mg PO DAILY [facility]; Protocol Last Admin: 01/22/22 08:57 Dose: 25 mg Hydroxyzine HCl (Hydroxyzine Hcl 25 Mg Tablet) 25 mg PO BEDTIME PRN PRN Reason: Anxiety Last Admin: 01/10/22 22:47 Dose: 25 mg Hydroxyzine HCl (Hydroxyzine Hcl 25 Mg Tablet) 25 mg PO BID PRN PRN Reason: Anxiety Last Admin: 01/16/22 15:10 Dose: 25 mg [place] Carbonate ([place] Carbonate 300 Mg Tablet) 450 mg PO BID [facility] Last Admin: 01/22/22 08:58 Dose: 450 mg Loperamide HCl (Loperamide Hcl 2 Mg Capsule) 4 mg PO Q4H PRN PRN Reason: Diarrhea Last Admin: 11/01/21 17:04 Dose: 4 mg Magnesium Hydroxide (Milk Of Magnesia 30 Ml Oral.Susp) 30 ml PO DAILY PRN PRN Reason: Constipation Last Admin: 01/06/22 12:51 Dose: 30 ml Mirtazapine (Mirtazapine 15 Mg Tablet) 15 mg PO BEDTIME [facility] Last Admin: 01/21/22 20:08 Dose: 15 mg Polyethylene Glycol (Polyethylene Glycol 3350 17 Gm Powd.Pack) 17 gm PO BID [facility] Last Admin: 01/22/22 09:00 Dose: 17 gm Potassium Chloride (Potassium Chloride Er 10 Meq Capsule.Er) 40 meq PO BID [facility] Last Admin: 01/22/22 08:59 Dose: 40 meq Senna (Sennosides 8.6 Mg Tablet) 8.6 mg PO BEDTIME [facility] Last Admin: 01/21/22 20:08 Dose: 8.6 mg Trazodone HCl (Trazodone Hcl 50 Mg Tablet) 50 mg PO BEDTIME PRN PRN Reason: Insomnia Last Admin: 01/20/22 23:42 Dose: 50 mg Trolamine Salicylate/Aloe Vera (Trolamine Salicylate 10%/Aloe Cream 35.4 Gm) 1 appl TOPICAL TID PRN PRN Reason: neck pain Last Admin: 01/19/22 02:14 Dose: 1 appl Ziprasidone (Ziprasidone Mesylate 20 Mg Vial) 10 mg IM TID PRN PRN Reason: refusal of Clozapine Last Admin: 01/21/22 17:12 Dose: 10 mg Allergies Allergies Allergy/AdvReac Type Severity Reaction Status Date / Time No Known Allergies Allergy Unverified 05/01/20 19:42 [No Known Allergies*] Assessment & Plan Assessment & Plan (1) Schizophrenia, paranoid, chronic with acute exacerbation: Status: Acute Code(s): F20.0 - Paranoid schizophrenia Assessment and Plan: cont clozapine tx plan monitor for oversedation (2) Hypertension: Status: Acute Code(s): I10 - Essential (primary) hypertension (3) Dementia: Status: Acute Code(s): F03.90 - Unspecified dementia without behavioral disturbance Plan Elderly female with a long history of schizoaffective disorder bipolar type who was admitted into the facility for exacerbation of psychosis and mood lability. The patient is on Clozaril and apparently she has not been fully compliant with treatment. 11/21 slipped, hit head on 11/20, head CT reviewed and unremarkable. We did a MOCA and she is technically demented at this moment Plan 1. The patient at this moment is on 3 psychotics, Clozaril , Haldol and Invega Sustenna. 2. Discontinue Haldol 5 mg IM if the patient refuses Clozaril and replace with Geodon IM. 3. keep same treatment. 4. COVID-19 protocol 5. Blood work for tomorrow , repeat lithium level I spent ___20___ minutes with the patient and/or on the patient floor today, greater than?50% of which was spent counseling/coordinating care. Reason for contiued inpatient stay Substantial Risk for: inability to function, rapid decompensation and med/psych decompensation
[2022-01-22 13:51] VITALS: BP 91/54; PULSE 94; RESP 16; TEMP 36.9; O2SAT 94
--- NOTE | 2022-01-22 16:51 | PC.NURSE ---
Pt initially refused scheduled lab draw this am, accepted with encouragement from staff at 0807. Initally refused all scheduled am meds shouting angrily, Just give me the shot! Accepted all am po meds after injection of Geodon drawn up. Dr Mcdonnell notified of [place] level 1.[address] Mcdonnell verified with this scenario writer that labs were drawn prior to am [place] administration. Repeat [place] level to be drawn tomorrow as Dr Mcdonnell questions accuracy of results.
[2022-01-22] MEDS: cloZAPine 100 MG TABLET 200 MG PO (17:00)
[2022-01-22] MEDS: cloZAPine 100 MG TABLET 300 MG PO (21:11)
[2022-01-22] MEDS: Mirtazapine 15 MG TABLET PO (21:11)
[2022-01-22] MEDS: Sennosides 8.6 MG TABLET PO (21:12)
[2022-01-23 07:59] LABS: Lithium 1.27 mmol/L (0.60-1.20)
--- NOTE | 2022-01-23 10:21 | HO.PSYCHPN ---
Subjective Subjective Date of Service: 01/23/22 Reason For Visit: psychotic disorder Subjective Notes: Section 8 Interim History: Pt sitting outside, involuntary jerk-like movements noted mostly on left arm- this more related to lithium than antipsychotic EPS. [employer] level, elevated but trending down, adjusted lithium dose to 300mg po BID. Pt denies SI/HI. Some yelling at AH, but much calmer. Medication Compliance: Yes Side effects from medications: No Review of Systems Review of Systems Constipation Yes all other systems are reviewed and are negative, Unobtainable due to mental condition and Unobtainable due to mental status Mental Status Exam Mental Status Exam Narrative: Would not engage with entry writer. In bed. Does appear disheveled. Patient Appearance: Well Grooomed Patient Orientation: Person and Situation Level of Consciousness: Awake Patient Behavior: Cooperative Mood Description: Withdrawn Affect Description: Constricted Patient Cognition Impaired: Yes Ability to Follow Directions: Good Speech Pattern: Clear Memory Description: Intact Diagnostics Vital Signs (24Hr): Vital Signs - 24 hr 01/24/22 20:18 Temperature 97.3 F Pulse Rate 88 Respiratory Rate 18 Blood Pressure 108/54 L Pulse Oximetry 97 Oxygen Delivery Method Room Air BMI result Body Mass Index 26.5 Labs Results: 01/22/22 08:07 01/22/22 08:07 Labs: Laboratory Results - last 48 hr 01/23/22 01/24/22 01/24/22 07:42 07:19 07:19 GGT 19 [employer] 1.27 H 1.18 Imaging Radiology Impressions: ITS Impressions Head CT 10/08/21 15:16 IMPRESSION: No acute intracranial pathology. Head CT 10/09/21 13:54 IMPRESSION: No acute intracranial pathology. Pelvic/Transvag US 10/13/21 09:24 IMPRESSION: Abnormally thickened endometrium for a postmenopausal patient measuring 0.9 cm. 3 x 2.7 x 3.7 cm mass in the posterior cervix. This may represent a fibroid. Slightly thickened trabeculated bladder wall. Head CT 10/20/21 08:18 IMPRESSION: No acute intracranial pathology. This critical result was discussed with Dr. Chu at 8:30 hours on 10/20/2021. It was ascertained that the content and urgency of the report was understood at the time of direct communication. Head CT 11/20/21 19:29 IMPRESSION: No acute intracranial pathology. Medications Medications Current Medications Acetaminophen (Acetaminophen 325 Mg Tablet) 650 mg PO Q6H PRN PRN Reason: Headache/Pain Mild Scale (1-3) Last Admin: 01/20/22 23:34 Dose: 650 mg Al Hydroxide/Mg Hydroxide (Magnesium Hydrox/Alum Hydrox 30 Ml Oral.Susp) 30 ml PO Q6H PRN PRN Reason: Heartburn/Nausea Apixaban (Apixaban 5 Mg Tablet) 5 mg PO BID [facility] Last Admin: 01/24/22 20:18 Dose: 5 mg Benztropine Mesylate (Benztropine Mesylate 1 Mg Tablet) 1 mg PO BID [facility] Last Admin: 01/24/22 20:18 Dose: 1 mg Bisacodyl (Bisacodyl 10 Mg Supp.Rect) 10 mg [place] DAILY PRN PRN Reason: Constipation Last Admin: 12/16/21 04:01 Dose: 10 mg Clozapine (Clozapine 100 Mg Tablet) 100 mg PO DAILY [facility] Last Admin: 01/24/22 12:32 Dose: 100 mg Clozapine (Clozapine 100 Mg Tablet) 200 mg PO DAILY@1700 [facility] Last Admin: 01/24/22 16:37 Dose: 200 mg Clozapine (Clozapine 100 Mg Tablet) 300 mg PO BEDTIME [facility] Last Admin: 01/24/22 20:18 Dose: 300 mg Desmopressin Acetate (Desmopressin Acetate 0.2 Mg Tablet) 0.2 mg PO BID [facility] Last Admin: 01/24/22 20:18 Dose: 0.2 mg Docusate Sodium (Docusate Sodium 100 Mg Capsule) 100 mg PO BID [facility] Last Admin: 01/24/22 20:18 Dose: 100 mg Haloperidol (Haloperidol 5 Mg Tablet) 5 mg PO BID [facility] Last Admin: 01/24/22 20:17 Dose: 5 mg Hydrochlorothiazide (Hydrochlorothiazide 25 Mg Tablet) 25 mg PO DAILY [facility]; Protocol Last Admin: 01/24/22 12:33 Dose: Not Given Hydroxyzine HCl (Hydroxyzine Hcl 25 Mg Tablet) 25 mg PO BEDTIME PRN PRN Reason: Anxiety Last Admin: 01/10/22 22:47 Dose: 25 mg Hydroxyzine HCl (Hydroxyzine Hcl 25 Mg Tablet) 25 mg PO BID PRN PRN Reason: Anxiety Last Admin: 01/16/22 15:10 Dose: 25 mg [employer] Carbonate ([employer] Carbonate 300 Mg Capsule) 300 mg PO BID [facility] Last Admin: 01/24/22 20:18 Dose: 300 mg Loperamide HCl (Loperamide Hcl 2 Mg Capsule) 4 mg PO Q4H PRN PRN Reason: Diarrhea Last Admin: 11/01/21 17:04 Dose: 4 mg Magnesium Hydroxide (Milk Of Magnesia 30 Ml Oral.Susp) 30 ml PO DAILY PRN PRN Reason: Constipation Last Admin: 01/06/22 12:51 Dose: 30 ml Mirtazapine (Mirtazapine 15 Mg Tablet) 15 mg PO BEDTIME [facility] Last Admin: 01/24/22 20:18 Dose: 15 mg Polyethylene Glycol (Polyethylene Glycol 3350 17 Gm Powd.Pack) 17 gm PO BID [facility] Last Admin: 01/24/22 20:17 Dose: 17 gm Potassium Chloride (Potassium Chloride Er 10 Meq Capsule.Er) 40 meq PO BID [facility] Last Admin: 01/25/22 00:23 Dose: Not Given Senna (Sennosides 8.6 Mg Tablet) 8.6 mg PO BEDTIME [facility] Last Admin: 01/24/22 20:18 Dose: 8.6 mg Trazodone HCl (Trazodone Hcl 50 Mg Tablet) 50 mg PO BEDTIME PRN PRN Reason: Insomnia Last Admin: 01/24/22 20:18 Dose: 50 mg Trolamine Salicylate/Aloe Vera (Trolamine Salicylate 10%/Aloe Cream 35.4 Gm) 1 appl TOPICAL TID PRN PRN Reason: neck pain Last Admin: 01/19/22 02:14 Dose: 1 appl Ziprasidone (Ziprasidone Mesylate 20 Mg Vial) 10 mg IM TID PRN PRN Reason: refusal of Clozapine Last Admin: 01/21/22 17:12 Dose: 10 mg Allergies Allergies Allergy/AdvReac Type Severity Reaction Status Date / Time No Known Allergies Allergy Unverified 05/01/20 19:42 [No Known Allergies*] Assessment & Plan Assessment & Plan (1) Schizophrenia, paranoid, chronic with acute exacerbation: Status: Acute Code(s): F20.0 - Paranoid schizophrenia Assessment and Plan: cont clozapine tx plan monitor for oversedation (2) Hypertension: Status: Acute Code(s): I10 - Essential (primary) hypertension (3) Dementia: Status: Acute Code(s): F03.90 - Unspecified dementia without behavioral disturbance Plan Elderly female with a long history of schizoaffective disorder bipolar type who was admitted into the facility for exacerbation of psychosis and mood lability. The patient is on Clozaril and apparently she has not been fully compliant with treatment. 11/21 slipped, hit head on 11/20, head CT reviewed and unremarkable. We did a MOCA and she is technically demented at this moment Plan 1. The patient at this moment is on 3 psychotics, Clozaril , Haldol and Invega Sustenna. 2. Discontinue Haldol 5 mg IM if the patient refuses Clozaril and replace with Geodon IM. 3. keep same treatment. 4. COVID-19 protocol 5. Blood work for tomorrow , repeat lithium level 01/23 lithium level elevated but trending down, jerk-like involuntary movement of left forearm noted, which suspect more related to lithium than antipsychotic. lowered dose of lithium to 300mg po BID. I spent minutes with the patient and/or on the patient floor today, greater than?50% of which was spent counseling/coordinating care. Reason for contiued inpatient stay Substantial Risk for: inability to function
[2022-01-23] MEDS: Desmopressin Acetate 0.2 MG TABLET PO ×2 (10:26→20:14)
[2022-01-23] MEDS: Benztropine Mesylate 1 MG TABLET PO ×2 (10:26→20:14)
[2022-01-23] MEDS: Apixaban 5 MG TABLET PO ×2 (10:26→20:14)
[2022-01-23] MEDS: HaloperidoL 5 MG TABLET PO ×2 (10:26→20:14)
[2022-01-23] MEDS: hydroCHLOROthiazide 25 MG TABLET PO (10:26)
[2022-01-23] MEDS: Docusate Sodium 100 MG CAPSULE PO ×2 (10:27→20:14)
[2022-01-23] MEDS: Lithium Carbonate 300 MG TABLET 450 MG PO (10:27)
[2022-01-23] MEDS: cloZAPine 100 MG TABLET PO (10:27)
[2022-01-23] MEDS: cloZAPine 100 MG TABLET 200 MG PO (17:20)
[2022-01-23 18:00] VITALS: BP 107/59; PULSE 81; RESP 16; TEMP 36.2; O2SAT 94
[2022-01-23] MEDS: cloZAPine 100 MG TABLET 300 MG PO (20:13)
[2022-01-23] MEDS: Sennosides 8.6 MG TABLET PO (20:14)
[2022-01-23] MEDS: Mirtazapine 15 MG TABLET PO (20:14)
[2022-01-24 06:00] VITALS: BP 99/54; PULSE 84; RESP 14; TEMP 36.4; O2SAT 92
[2022-01-24 08:25] LABS: Lithium 1.18 mmol/L (0.60-1.20)
[2022-01-24 08:39] LABS: Gamma Glutamyl Transpeptidase 19 U/L (7-33)
--- NOTE | 2022-01-24 11:24 | HO.PSYCHPN ---
Subjective Subjective Date of Service: 01/24/22 Reason For Visit: psychotic disorder Subjective Notes: Section 8 Interim History: Pt sitting in common area, reports feeling well. She is upset when informed lithium dose decrease, yelling at this public relations writer, I need lithium. She denies SI/HI. on 1:1 for unsteady gait. Medication Compliance: Yes Side effects from medications: No Review of Systems Review of Systems Constipation Yes all other systems are reviewed and are negative, Unobtainable due to mental condition and Unobtainable due to mental status Mental Status Exam Mental Status Exam Narrative: Would not engage with public relations writer. In bed. Does appear disheveled. Patient Appearance: Well Grooomed Patient Orientation: Person and Situation Level of Consciousness: Awake Patient Behavior: Cooperative Mood Description: Withdrawn Affect Description: Constricted Patient Cognition Impaired: Yes Ability to Follow Directions: Good Speech Pattern: Clear Memory Description: Intact Diagnostics Vital Signs (24Hr): Vital Signs - 24 hr 01/24/22 20:18 Temperature 97.3 F Pulse Rate 88 Respiratory Rate 18 Blood Pressure 108/54 L Pulse Oximetry 97 Oxygen Delivery Method Room Air BMI result Body Mass Index 26.5 Labs Results: 01/22/22 08:07 01/22/22 08:07 Labs: Laboratory Results - last 48 hr 01/23/22 01/24/22 01/24/22 07:42 07:19 07:19 GGT 19 [place] 1.27 H 1.18 Imaging Radiology Impressions: ITS Impressions Head CT 10/08/21 15:16 IMPRESSION: No acute intracranial pathology. Head CT 10/09/21 13:54 IMPRESSION: No acute intracranial pathology. Pelvic/Transvag US 10/13/21 09:24 IMPRESSION: Abnormally thickened endometrium for a postmenopausal patient measuring 0.9 cm. 3 x 2.7 x 3.7 cm mass in the posterior cervix. This may represent a fibroid. Slightly thickened trabeculated bladder wall. Head CT 10/20/21 08:18 IMPRESSION: No acute intracranial pathology. This critical result was discussed with Dr. Chu at 8:30 hours on 10/20/2021. It was ascertained that the content and urgency of the report was understood at the time of direct communication. Head CT 11/20/21 19:29 IMPRESSION: No acute intracranial pathology. Medications Medications Current Medications Acetaminophen (Acetaminophen 325 Mg Tablet) 650 mg PO Q6H PRN PRN Reason: Headache/Pain Mild Scale (1-3) Last Admin: 01/20/22 23:34 Dose: 650 mg Al Hydroxide/Mg Hydroxide (Magnesium Hydrox/Alum Hydrox 30 Ml Oral.Susp) 30 ml PO Q6H PRN PRN Reason: Heartburn/Nausea Apixaban (Apixaban 5 Mg Tablet) 5 mg PO BID [facility] Last Admin: 01/24/22 20:18 Dose: 5 mg Benztropine Mesylate (Benztropine Mesylate 1 Mg Tablet) 1 mg PO BID [facility] Last Admin: 01/24/22 20:18 Dose: 1 mg Bisacodyl (Bisacodyl 10 Mg Supp.Rect) 10 mg [place] DAILY PRN PRN Reason: Constipation Last Admin: 12/16/21 04:01 Dose: 10 mg Clozapine (Clozapine 100 Mg Tablet) 100 mg PO DAILY [facility] Last Admin: 01/24/22 12:32 Dose: 100 mg Clozapine (Clozapine 100 Mg Tablet) 200 mg PO DAILY@1700 [facility] Last Admin: 01/24/22 16:37 Dose: 200 mg Clozapine (Clozapine 100 Mg Tablet) 300 mg PO BEDTIME [facility] Last Admin: 01/24/22 20:18 Dose: 300 mg Desmopressin Acetate (Desmopressin Acetate 0.2 Mg Tablet) 0.2 mg PO BID [facility] Last Admin: 01/24/22 20:18 Dose: 0.2 mg Docusate Sodium (Docusate Sodium 100 Mg Capsule) 100 mg PO BID [facility] Last Admin: 01/24/22 20:18 Dose: 100 mg Haloperidol (Haloperidol 5 Mg Tablet) 5 mg PO BID [facility] Last Admin: 01/24/22 20:17 Dose: 5 mg Hydrochlorothiazide (Hydrochlorothiazide 25 Mg Tablet) 25 mg PO DAILY [facility]; Protocol Last Admin: 01/24/22 12:33 Dose: Not Given Hydroxyzine HCl (Hydroxyzine Hcl 25 Mg Tablet) 25 mg PO BEDTIME PRN PRN Reason: Anxiety Last Admin: 01/10/22 22:47 Dose: 25 mg Hydroxyzine HCl (Hydroxyzine Hcl 25 Mg Tablet) 25 mg PO BID PRN PRN Reason: Anxiety Last Admin: 01/16/22 15:10 Dose: 25 mg [place] Carbonate ([place] Carbonate 300 Mg Capsule) 300 mg PO BID [facility] Last Admin: 01/24/22 20:18 Dose: 300 mg Loperamide HCl (Loperamide Hcl 2 Mg Capsule) 4 mg PO Q4H PRN PRN Reason: Diarrhea Last Admin: 11/01/21 17:04 Dose: 4 mg Magnesium Hydroxide (Milk Of Magnesia 30 Ml Oral.Susp) 30 ml PO DAILY PRN PRN Reason: Constipation Last Admin: 01/06/22 12:51 Dose: 30 ml Mirtazapine (Mirtazapine 15 Mg Tablet) 15 mg PO BEDTIME [facility] Last Admin: 01/24/22 20:18 Dose: 15 mg Polyethylene Glycol (Polyethylene Glycol 3350 17 Gm Powd.Pack) 17 gm PO BID [facility] Last Admin: 01/24/22 20:17 Dose: 17 gm Potassium Chloride (Potassium Chloride Er 10 Meq Capsule.Er) 40 meq PO BID [facility] Last Admin: 01/25/22 00:23 Dose: Not Given Senna (Sennosides 8.6 Mg Tablet) 8.6 mg PO BEDTIME [facility] Last Admin: 01/24/22 20:18 Dose: 8.6 mg Trazodone HCl (Trazodone Hcl 50 Mg Tablet) 50 mg PO BEDTIME PRN PRN Reason: Insomnia Last Admin: 01/24/22 20:18 Dose: 50 mg Trolamine Salicylate/Aloe Vera (Trolamine Salicylate 10%/Aloe Cream 35.4 Gm) 1 appl TOPICAL TID PRN PRN Reason: neck pain Last Admin: 01/19/22 02:14 Dose: 1 appl Ziprasidone (Ziprasidone Mesylate 20 Mg Vial) 10 mg IM TID PRN PRN Reason: refusal of Clozapine Last Admin: 01/21/22 17:12 Dose: 10 mg Allergies Allergies Allergy/AdvReac Type Severity Reaction Status Date / Time No Known Allergies Allergy Unverified 05/01/20 19:42 [No Known Allergies*] Assessment & Plan Assessment & Plan (1) Schizophrenia, paranoid, chronic with acute exacerbation: Status: Acute Code(s): F20.0 - Paranoid schizophrenia Assessment and Plan: cont clozapine tx plan monitor for oversedation (2) Hypertension: Status: Acute Code(s): I10 - Essential (primary) hypertension (3) Dementia: Status: Acute Code(s): F03.90 - Unspecified dementia without behavioral disturbance Plan Elderly female with a long history of schizoaffective disorder bipolar type who was admitted into the facility for exacerbation of psychosis and mood lability. The patient is on Clozaril and apparently she has not been fully compliant with treatment. 11/21 slipped, hit head on 11/20, head CT reviewed and unremarkable. We did a MOCA and she is technically demented at this moment Plan 1. The patient at this moment is on 3 psychotics, Clozaril , Haldol and Invega Sustenna. 2. Discontinue Haldol 5 mg IM if the patient refuses Clozaril and replace with Geodon IM. 3. keep same treatment. 4. COVID-19 protocol 5. Blood work for tomorrow , repeat lithium level 01/23 lithium level elevated but trending down, jerk-like involuntary movement of left forearm noted, which suspect more related to lithium than antipsychotic. lowered dose of lithium to 300mg po BID. 01/24 continue current medications. I spent minutes with the patient and/or on the patient floor today, greater than?50% of which was spent counseling/coordinating care. Reason for contiued inpatient stay Substantial Risk for: inability to function
[2022-01-24] MEDS: HaloperidoL 5 MG TABLET PO ×2 (12:32→20:17)
[2022-01-24] MEDS: cloZAPine 100 MG TABLET PO (12:32)
[2022-01-24] MEDS: polyethylene glycoL 3350 17 GM POWD.PACK PO ×2 (12:33→20:17)
[2022-01-24] MEDS: cloZAPine 100 MG TABLET 200 MG PO (16:37)
[2022-01-24 20:18] VITALS: BP 108/54; PULSE 88; RESP 18; TEMP 36.3; O2SAT 97
[2022-01-24] MEDS: Apixaban 5 MG TABLET PO (20:18)
[2022-01-24] MEDS: Lithium Carbonate 300 MG CAPSULE PO (20:18)
[2022-01-24] MEDS: traZODone HCL 50 MG TABLET PO (20:18)
[2022-01-24] MEDS: Sennosides 8.6 MG TABLET PO (20:18)
[2022-01-24] MEDS: Docusate Sodium 100 MG CAPSULE PO (20:18)
[2022-01-24] MEDS: cloZAPine 100 MG TABLET 300 MG PO (20:18)
[2022-01-24] MEDS: Benztropine Mesylate 1 MG TABLET PO (20:18)
[2022-01-24] MEDS: Mirtazapine 15 MG TABLET PO (20:18)
[2022-01-24] MEDS: Desmopressin Acetate 0.2 MG TABLET PO (20:18)
[2022-01-25 10:30] VITALS: BP 121/58; PULSE 91; RESP 16; TEMP 36.6; O2SAT 100
[2022-01-25] MEDS: Desmopressin Acetate 0.2 MG TABLET PO ×2 (10:30→20:09)
[2022-01-25] MEDS: Lithium Carbonate 300 MG CAPSULE PO ×2 (10:30→20:10)
[2022-01-25] MEDS: Docusate Sodium 100 MG CAPSULE PO ×2 (10:31→20:09)
[2022-01-25] MEDS: cloZAPine 100 MG TABLET PO (10:31)
[2022-01-25] MEDS: HaloperidoL 5 MG TABLET PO ×2 (10:31→20:09)
[2022-01-25] MEDS: Benztropine Mesylate 1 MG TABLET PO ×2 (10:31→20:09)
[2022-01-25] MEDS: Apixaban 5 MG TABLET PO ×2 (10:32→20:09)
[2022-01-25] MEDS: hydroCHLOROthiazide 25 MG TABLET PO (10:32)
[2022-01-25] MEDS: polyethylene glycoL 3350 17 GM POWD.PACK PO ×2 (10:33→20:05)
--- NOTE | 2022-01-25 15:03 | P.PNPSI_ITS ---
Subjective Subjective Date of Service: 01/25/22 Reason For Visit: psychotic disorder Subjective Notes: Conditional Voluntary Interim History: the nursing staff reported the patient has been chronically psychotic but easily redirectable. On interview the patient denies new symptoms she looks slightly sedated Mental Status Exam Mental Status Exam Patient Appearance: Well Grooomed Patient Orientation: Person and Situation Level of Consciousness: Awake Patient Behavior: Cooperative Mood Description: Withdrawn Affect Description: Constricted Patient Cognition Impaired: Yes Ability to Follow Directions: Good Speech Pattern: Clear Hallucinations: Auditory Delusions: Paranoid Ideation Thought Process: Illogical Thought Content: positive for [place], positive for [place] and positive for Poverty of Content Judgement: Fair Diagnostics Vital Signs (24Hr): Vital Signs - 24 hr 01/24/22 20:18 01/25/22 10:30 Temperature 97.3 F 97.8 F Pulse Rate 88 91 Respiratory Rate 18 16 Blood Pressure 108/54 L 121/58 L Pulse Oximetry 97 100 Oxygen Delivery Method Room Air Room Air BMI result Body Mass Index 26.5 Labs Results: 01/22/22 08:07 01/22/22 08:07 Labs: Laboratory Results - last 48 hr 01/24/22 01/24/22 07:19 07:19 GGT 19 [place] 1.18 Imaging Radiology Impressions: ITS Impressions Head CT 10/08/21 15:16 IMPRESSION: No acute intracranial pathology. Head CT 10/09/21 13:54 IMPRESSION: No acute intracranial pathology. Pelvic/Transvag US 10/13/21 09:24 IMPRESSION: Abnormally thickened endometrium for a postmenopausal patient measuring 0.9 cm. 3 x 2.7 x 3.7 cm mass in the posterior cervix. This may represent a fibroid. Slightly thickened trabeculated bladder wall. Head CT 10/20/21 08:18 IMPRESSION: No acute intracranial pathology. This critical result was discussed with Dr. Chu at 8:30 hours on 10/20/2021. It was ascertained that the content and urgency of the report was understood at the time of direct communication. Head CT 11/20/21 19:29 IMPRESSION: No acute intracranial pathology. Medications Medications Current Medications Acetaminophen (Acetaminophen 325 Mg Tablet) 650 mg PO Q6H PRN PRN Reason: Headache/Pain Mild Scale (1-3) Last Admin: 01/20/22 23:34 Dose: 650 mg Al Hydroxide/Mg Hydroxide (Magnesium Hydrox/Alum Hydrox 30 Ml Oral.Susp) 30 ml PO Q6H PRN PRN Reason: Heartburn/Nausea Apixaban (Apixaban 5 Mg Tablet) 5 mg PO BID [facility] Last Admin: 01/25/22 10:32 Dose: 5 mg Benztropine Mesylate (Benztropine Mesylate 1 Mg Tablet) 1 mg PO BID [facility] Last Admin: 01/25/22 10:31 Dose: 1 mg Bisacodyl (Bisacodyl 10 Mg Supp.Rect) 10 mg [place] DAILY PRN PRN Reason: Constipation Last Admin: 12/16/21 04:01 Dose: 10 mg Clozapine (Clozapine 100 Mg Tablet) 100 mg PO DAILY [facility] Last Admin: 01/25/22 10:31 Dose: 100 mg Clozapine (Clozapine 100 Mg Tablet) 200 mg PO DAILY@1700 [facility] Last Admin: 01/24/22 16:37 Dose: 200 mg Clozapine (Clozapine 100 Mg Tablet) 300 mg PO BEDTIME [facility] Last Admin: 01/24/22 20:18 Dose: 300 mg Desmopressin Acetate (Desmopressin Acetate 0.2 Mg Tablet) 0.2 mg PO BID [facility] Last Admin: 01/25/22 10:30 Dose: 0.2 mg Docusate Sodium (Docusate Sodium 100 Mg Capsule) 100 mg PO BID [facility] Last Admin: 01/25/22 10:31 Dose: 100 mg Haloperidol (Haloperidol 5 Mg Tablet) 5 mg PO BID [facility] Last Admin: 01/25/22 10:31 Dose: 5 mg Hydrochlorothiazide (Hydrochlorothiazide 25 Mg Tablet) 25 mg PO DAILY [facility]; Protocol Last Admin: 01/25/22 10:32 Dose: 25 mg Hydroxyzine HCl (Hydroxyzine Hcl 25 Mg Tablet) 25 mg PO BEDTIME PRN PRN Reason: Anxiety Last Admin: 01/10/22 22:47 Dose: 25 mg Hydroxyzine HCl (Hydroxyzine Hcl 25 Mg Tablet) 25 mg PO BID PRN PRN Reason: Anxiety Last Admin: 01/16/22 15:10 Dose: 25 mg [place] Carbonate ([place] Carbonate 300 Mg Capsule) 300 mg PO BID [facility] Last Admin: 01/25/22 10:30 Dose: 300 mg Loperamide HCl (Loperamide Hcl 2 Mg Capsule) 4 mg PO Q4H PRN PRN Reason: Diarrhea Last Admin: 11/01/21 17:04 Dose: 4 mg Magnesium Hydroxide (Milk Of Magnesia 30 Ml Oral.Susp) 30 ml PO DAILY PRN PRN Reason: Constipation Last Admin: 01/06/22 12:51 Dose: 30 ml Mirtazapine (Mirtazapine 15 Mg Tablet) 15 mg PO BEDTIME [facility] Last Admin: 01/24/22 20:18 Dose: 15 mg Polyethylene Glycol (Polyethylene Glycol 3350 17 Gm Powd.Pack) 17 gm PO BID [facility] Last Admin: 01/25/22 10:33 Dose: 17 gm Potassium Chloride (Potassium Chloride Er 10 Meq Capsule.Er) 40 meq PO BID [facility] Last Admin: 01/25/22 10:42 Dose: Not Given Senna (Sennosides 8.6 Mg Tablet) 8.6 mg PO BEDTIME [facility] Last Admin: 01/24/22 20:18 Dose: 8.6 mg Trazodone HCl (Trazodone Hcl 50 Mg Tablet) 50 mg PO BEDTIME PRN PRN Reason: Insomnia Last Admin: 01/24/22 20:18 Dose: 50 mg Trolamine Salicylate/Aloe Vera (Trolamine Salicylate 10%/Aloe Cream 35.4 Gm) 1 appl TOPICAL TID PRN PRN Reason: neck pain Last Admin: 01/19/22 02:14 Dose: 1 appl Ziprasidone (Ziprasidone Mesylate 20 Mg Vial) 10 mg IM TID PRN PRN Reason: refusal of Clozapine Last Admin: 01/21/22 17:12 Dose: 10 mg Allergies Allergies Allergy/AdvReac Type Severity Reaction Status Date / Time No Known Allergies Allergy Unverified 05/01/20 19:42 [No Known Allergies*] Assessment & Plan Assessment & Plan (1) Schizophrenia, paranoid, chronic with acute exacerbation: Status: Acute Code(s): F20.0 - Paranoid schizophrenia Assessment and Plan: cont clozapine tx plan monitor for oversedation (2) Hypertension: Status: Acute Code(s): I10 - Essential (primary) hypertension (3) Dementia: Status: Acute Code(s): F03.90 - Unspecified dementia without behavioral disturbance Plan Elderly female with a long history of schizoaffective disorder bipolar type who was admitted into the facility for exacerbation of psychosis and mood lability. The patient is on Clozaril and apparently she has not been fully compliant with treatment. 11/21 slipped, hit head on 11/20, head CT reviewed and unremarkable. We did a MOCA and she is technically demented at this moment Plan 1. The patient at this moment is on 3 psychotics, Clozaril , Haldol and Invega Sustenna. 2. Discontinue Haldol 5 mg IM if the patient refuses Clozaril and replace with Geodon IM. 3. keep same treatment. 4. COVID-19 protocol 5. Blood work for tomorrow , repeat lithium level I spent __20____ minutes with the patient and/or on the patient floor today, greater than?50% of which was spent counseling/coordinating care. Reason for contiued inpatient stay Substantial Risk for: inability to function, rapid decompensation and med/psych decompensation
[2022-01-25 15:52] LABS: Calcium (PTHI) 11.4 mg/dL (8.6-10.4); PTHI 178 pg/mL (16-77)
[2022-01-25] MEDS: cloZAPine 100 MG TABLET 200 MG PO (16:25)
[2022-01-25 18:00] VITALS: BP 120/76; PULSE 91; RESP 18; TEMP 36.6; O2SAT 98
[2022-01-25] MEDS: cloZAPine 100 MG TABLET 300 MG PO (20:09)
[2022-01-25] MEDS: Sennosides 8.6 MG TABLET PO (20:10)
[2022-01-25] MEDS: Mirtazapine 15 MG TABLET PO (20:10)
[2022-01-26 09:39] VITALS: BP 108/55; PULSE 83; RESP 16; TEMP 36.9; O2SAT 93
[2022-01-26] MEDS: polyethylene glycoL 3350 17 GM POWD.PACK PO ×2 (09:45→22:10)
[2022-01-26] MEDS: Ziprasidone Mesylate 20 MG VIAL 10 MG IM (09:57)
[2022-01-26] MEDS: Clotrimazole 1 % Cream 15 GM TUBE 1 APPL TOPICAL (11:13)
--- NOTE | 2022-01-26 16:03 | HO.PSYCHPN ---
Subjective Subjective Date of Service: 01/26/22 Reason For Visit: psychotic disorder Subjective Notes: Conditional Voluntary Interim History: the nursing staff reported that the patient took her medications with a lot of encouragement. Still with sporadic auditory hallucinations. Later in the evening she got Geodon IM with very poor response Mental Status Exam Mental Status Exam Patient Appearance: Appropriate Patient Orientation: Person and Situation Level of Consciousness: Awake Patient Behavior: Guarded Mood Description: Constricted Affect Description: Constricted Patient Cognition Impaired: Yes Ability to Follow Directions: Fair Speech Pattern: Clear Hallucinations: Auditory Delusions: Paranoid Ideation Thought Process: Distracted Thought Content: positive for [place] and positive for Poverty of Content Judgement: Poor Diagnostics Vital Signs (24Hr): Vital Signs - 24 hr 01/25/22 18:00 01/26/22 09:39 Temperature 97.9 F 98.4 F Pulse Rate 91 83 Respiratory Rate 18 16 Blood Pressure 120/76 108/55 L Pulse Oximetry 98 93 Oxygen Delivery Method Room Air Room Air BMI result Body Mass Index 26.5 Labs Results: 01/22/22 08:07 01/22/22 08:07 Labs: Laboratory Results - last 48 hr 01/24/22 07:19 PTH Intact 178 H Calcium (PTH Intact) 11.4 H Imaging Radiology Impressions: ITS Impressions Head CT 10/08/21 15:16 IMPRESSION: No acute intracranial pathology. Head CT 10/09/21 13:54 IMPRESSION: No acute intracranial pathology. Pelvic/Transvag US 10/13/21 09:24 IMPRESSION: Abnormally thickened endometrium for a postmenopausal patient measuring 0.9 cm. 3 x 2.7 x 3.7 cm mass in the posterior cervix. This may represent a fibroid. Slightly thickened trabeculated bladder wall. Head CT 10/20/21 08:18 IMPRESSION: No acute intracranial pathology. This critical result was discussed with Dr. Chu at 8:30 hours on 10/20/2021. It was ascertained that the content and urgency of the report was understood at the time of direct communication. Head CT 11/20/21 19:29 IMPRESSION: No acute intracranial pathology. Medications Medications Current Medications Acetaminophen (Acetaminophen 325 Mg Tablet) 650 mg PO Q6H PRN PRN Reason: Headache/Pain Mild Scale (1-3) Last Admin: 01/20/22 23:34 Dose: 650 mg Al Hydroxide/Mg Hydroxide (Magnesium Hydrox/Alum Hydrox 30 Ml Oral.Susp) 30 ml PO Q6H PRN PRN Reason: Heartburn/Nausea Apixaban (Apixaban 5 Mg Tablet) 5 mg PO BID [facility] Last Admin: 01/26/22 09:55 Dose: Not Given Benztropine Mesylate (Benztropine Mesylate 1 Mg Tablet) 1 mg PO BID [facility] Last Admin: 01/26/22 09:55 Dose: Not Given Bisacodyl (Bisacodyl 10 Mg Supp.Rect) 10 mg [place] DAILY PRN PRN Reason: Constipation Last Admin: 12/16/21 04:01 Dose: 10 mg Clotrimazole (Clotrimazole 1 % Cream 15 Gm Tube) 1 appl TOPICAL BID [facility]; Protocol Last Admin: 01/26/22 11:13 Dose: 1 appl Clozapine (Clozapine 100 Mg Tablet) 100 mg PO DAILY [facility] Last Admin: 01/26/22 09:55 Dose: Not Given Clozapine (Clozapine 100 Mg Tablet) 200 mg PO DAILY@1700 [facility] Last Admin: 01/25/22 16:25 Dose: 200 mg Clozapine (Clozapine 100 Mg Tablet) 300 mg PO BEDTIME [facility] Last Admin: 01/25/22 20:09 Dose: 300 mg Desmopressin Acetate (Desmopressin Acetate 0.2 Mg Tablet) 0.2 mg PO BID [facility] Last Admin: 01/26/22 09:55 Dose: Not Given Docusate Sodium (Docusate Sodium 100 Mg Capsule) 100 mg PO BID [facility] Last Admin: 01/26/22 09:55 Dose: Not Given Haloperidol (Haloperidol 5 Mg Tablet) 5 mg PO BID [facility] Last Admin: 01/26/22 09:55 Dose: Not Given Hydrochlorothiazide (Hydrochlorothiazide 25 Mg Tablet) 25 mg PO DAILY [facility]; Protocol Last Admin: 01/26/22 09:55 Dose: Not Given Hydroxyzine HCl (Hydroxyzine Hcl 25 Mg Tablet) 25 mg PO BEDTIME PRN PRN Reason: Anxiety Last Admin: 01/10/22 22:47 Dose: 25 mg Hydroxyzine HCl (Hydroxyzine Hcl 25 Mg Tablet) 25 mg PO BID PRN PRN Reason: Anxiety Last Admin: 01/16/22 15:10 Dose: 25 mg [place] Carbonate ([place] Carbonate 300 Mg Capsule) 300 mg PO BID [facility] Last Admin: 01/26/22 09:55 Dose: Not Given Loperamide HCl (Loperamide Hcl 2 Mg Capsule) 4 mg PO Q4H PRN PRN Reason: Diarrhea Last Admin: 11/01/21 17:04 Dose: 4 mg Magnesium Hydroxide (Milk Of Magnesia 30 Ml Oral.Susp) 30 ml PO DAILY PRN PRN Reason: Constipation Last Admin: 01/06/22 12:51 Dose: 30 ml Mirtazapine (Mirtazapine 15 Mg Tablet) 15 mg PO BEDTIME [facility] Last Admin: 01/25/22 20:10 Dose: 15 mg Olanzapine (Olanzapine 10 Mg Vial) 5 mg IM STAT PRN PRN Reason: refusal of Clozaril PO Polyethylene Glycol (Polyethylene Glycol 3350 17 Gm Powd.Pack) 17 gm PO BID [facility] Last Admin: 01/26/22 09:45 Dose: 17 gm Potassium Chloride (Potassium Chloride Er 10 Meq Capsule.Er) 40 meq PO BID [facility] Last Admin: 01/26/22 09:55 Dose: Not Given Senna (Sennosides 8.6 Mg Tablet) 8.6 mg PO BEDTIME [facility] Last Admin: 01/25/22 20:10 Dose: 8.6 mg Trazodone HCl (Trazodone Hcl 50 Mg Tablet) 50 mg PO BEDTIME PRN PRN Reason: Insomnia Last Admin: 01/24/22 20:18 Dose: 50 mg Trolamine Salicylate/Aloe Vera (Trolamine Salicylate 10%/Aloe Cream 35.4 Gm) 1 appl TOPICAL TID PRN PRN Reason: neck pain Last Admin: 01/19/22 02:14 Dose: 1 appl Allergies Allergies Allergy/AdvReac Type Severity Reaction Status Date / Time No Known Allergies Allergy Unverified 05/01/20 19:42 [No Known Allergies*] Assessment & Plan Assessment & Plan (1) Schizophrenia, paranoid, chronic with acute exacerbation: Status: Acute Code(s): F20.0 - Paranoid schizophrenia Assessment and Plan: cont clozapine tx plan monitor for oversedation (2) Hypertension: Status: Acute Code(s): I10 - Essential (primary) hypertension (3) Dementia: Status: Acute Code(s): F03.90 - Unspecified dementia without behavioral disturbance Plan Elderly female with a long history of schizoaffective disorder bipolar type who was admitted into the facility for exacerbation of psychosis and mood lability. The patient is on Clozaril and apparently she has not been fully compliant with treatment. 11/21 slipped, hit head on 11/20, head CT reviewed and unremarkable. We did a MOCA and she is technically demented at this moment Plan 1. The patient at this moment is on 3 psychotics, Clozaril , Haldol and Invega Sustenna. 2. Discontinue Haldol 5 mg IM if the patient refuses Clozaril and replace with Geodon IM. 3. keep same treatment. 4. COVID-19 protocol 5. Blood work for tomorrow , repeat lithium level I spent __20____ minutes with the patient and/or on the patient floor today, greater than?50% of which was spent counseling/coordinating care. Reason for contiued inpatient stay Substantial Risk for: inability to function, rapid decompensation and med/psych decompensation
[2022-01-26] MEDS: cloZAPine 100 MG TABLET 200 MG PO (16:15)
[2022-01-26] MEDS: cloZAPine 100 MG TABLET 300 MG PO (20:47)
[2022-01-26] MEDS: Sennosides 8.6 MG TABLET PO (20:47)
[2022-01-26] MEDS: Apixaban 5 MG TABLET PO (20:47)
[2022-01-26] MEDS: Lithium Carbonate 300 MG CAPSULE PO (20:47)
[2022-01-26] MEDS: Desmopressin Acetate 0.2 MG TABLET PO (20:47)
[2022-01-26] MEDS: Benztropine Mesylate 1 MG TABLET PO (20:47)
[2022-01-26] MEDS: HaloperidoL 5 MG TABLET PO (20:47)
[2022-01-26] MEDS: Mirtazapine 15 MG TABLET PO (20:47)
[2022-01-26] MEDS: Docusate Sodium 100 MG CAPSULE PO (22:10)
[2022-01-27] MEDS: Docusate Sodium 100 MG CAPSULE PO (08:14)
[2022-01-27] MEDS: Benztropine Mesylate 1 MG TABLET PO ×2 (08:14→19:49)
[2022-01-27] MEDS: hydroCHLOROthiazide 25 MG TABLET PO (08:14)
[2022-01-27] MEDS: Apixaban 5 MG TABLET PO ×2 (08:14→19:49)
[2022-01-27] MEDS: HaloperidoL 5 MG TABLET PO ×2 (08:15→19:49)
[2022-01-27] MEDS: cloZAPine 100 MG TABLET PO (08:15)
[2022-01-27] MEDS: Desmopressin Acetate 0.2 MG TABLET PO ×2 (08:15→19:48)
[2022-01-27] MEDS: Lithium Carbonate 300 MG CAPSULE PO ×2 (08:15→19:48)
[2022-01-27] MEDS: polyethylene glycoL 3350 17 GM POWD.PACK PO (08:37)
[2022-01-27 08:41] VITALS: BP 109/60; PULSE 80; RESP 16; TEMP 35.8; O2SAT 96
[2022-01-27] MEDS: Acetaminophen 325 MG TABLET 650 MG PO (09:16)
[2022-01-27] MEDS: Milk of Magnesia 30 ML ORAL.SUSP PO (11:56)
--- NOTE | 2022-01-27 16:55 | HO.PSYCHPN ---
Subjective Subjective Date of Service: 01/27/22 Reason For Visit: psychotic disorder Subjective Notes: Conditional Voluntary Interim History: the nursing staff reported the patient received Geodon IM yesterday and they did not work out well she had more EPS. On interview the patient denies new symptoms she is waiting for placement Mental Status Exam Mental Status Exam Patient Appearance: Well Grooomed Patient Orientation: Person Level of Consciousness: Awake Patient Behavior: Cooperative Mood Description: Constricted Affect Description: Labile Patient Cognition Impaired: Yes Ability to Follow Directions: Good Speech Pattern: Clear Hallucinations: Auditory Delusions: Paranoid Ideation Thought Process: Illogical Thought Content: positive for Loose Associations Judgement: Poor Diagnostics Vital Signs (24Hr): Vital Signs - 24 hr 01/27/22 08:41 Temperature 96.5 F L Pulse Rate 80 Respiratory Rate 16 Blood Pressure 109/60 Pulse Oximetry 96 Oxygen Delivery Method Room Air BMI result Body Mass Index 26.5 Labs Results: 01/22/22 08:07 01/22/22 08:07 Labs: Laboratory Results - last 48 hr 01/27/22 08:13 [place] 0.90 Imaging Radiology Impressions: ITS Impressions Head CT 10/08/21 15:16 IMPRESSION: No acute intracranial pathology. Head CT 10/09/21 13:54 IMPRESSION: No acute intracranial pathology. Pelvic/Transvag US 10/13/21 09:24 IMPRESSION: Abnormally thickened endometrium for a postmenopausal patient measuring 0.9 cm. 3 x 2.7 x 3.7 cm mass in the posterior cervix. This may represent a fibroid. Slightly thickened trabeculated bladder wall. Head CT 10/20/21 08:18 IMPRESSION: No acute intracranial pathology. This critical result was discussed with Dr. Chu at 8:30 hours on 10/20/2021. It was ascertained that the content and urgency of the report was understood at the time of direct communication. Head CT 11/20/21 19:29 IMPRESSION: No acute intracranial pathology. Medications Medications Current Medications Acetaminophen (Acetaminophen 325 Mg Tablet) 650 mg PO Q6H PRN PRN Reason: Headache/Pain Mild Scale (1-3) Last Admin: 01/27/22 09:16 Dose: 650 mg Al Hydroxide/Mg Hydroxide (Magnesium Hydrox/Alum Hydrox 30 Ml Oral.Susp) 30 ml PO Q6H PRN PRN Reason: Heartburn/Nausea Apixaban (Apixaban 5 Mg Tablet) 5 mg PO BID [facility] Last Admin: 01/27/22 08:14 Dose: 5 mg Benztropine Mesylate (Benztropine Mesylate 1 Mg Tablet) 1 mg PO BID [facility] Last Admin: 01/27/22 08:14 Dose: 1 mg Bisacodyl (Bisacodyl 10 Mg Supp.Rect) 10 mg [place] DAILY PRN PRN Reason: Constipation Last Admin: 12/16/21 04:01 Dose: 10 mg Clotrimazole (Clotrimazole 1 % Cream 15 Gm Tube) 1 appl TOPICAL BID [facility]; Protocol Last Admin: 01/27/22 11:25 Dose: Not Given Clozapine (Clozapine 100 Mg Tablet) 100 mg PO DAILY [facility] Last Admin: 01/27/22 08:15 Dose: 100 mg Clozapine (Clozapine 100 Mg Tablet) 200 mg PO DAILY@1700 [facility] Last Admin: 01/26/22 16:15 Dose: 200 mg Clozapine (Clozapine 100 Mg Tablet) 300 mg PO BEDTIME [facility] Last Admin: 01/26/22 20:47 Dose: 300 mg Desmopressin Acetate (Desmopressin Acetate 0.2 Mg Tablet) 0.2 mg PO BID [facility] Last Admin: 01/27/22 08:15 Dose: 0.2 mg Docusate Sodium (Docusate Sodium 100 Mg Capsule) 100 mg PO BID [facility] Last Admin: 01/27/22 08:14 Dose: 100 mg Haloperidol (Haloperidol 5 Mg Tablet) 5 mg PO BID [facility] Last Admin: 01/27/22 08:15 Dose: 5 mg Hydrochlorothiazide (Hydrochlorothiazide 25 Mg Tablet) 25 mg PO DAILY [facility]; Protocol Last Admin: 01/27/22 08:14 Dose: 25 mg Hydroxyzine HCl (Hydroxyzine Hcl 25 Mg Tablet) 25 mg PO BEDTIME PRN PRN Reason: Anxiety Last Admin: 01/10/22 22:47 Dose: 25 mg Hydroxyzine HCl (Hydroxyzine Hcl 25 Mg Tablet) 25 mg PO BID PRN PRN Reason: Anxiety Last Admin: 01/16/22 15:10 Dose: 25 mg [place] Carbonate ([place] Carbonate 300 Mg Capsule) 300 mg PO BID [facility] Last Admin: 01/27/22 08:15 Dose: 300 mg Loperamide HCl (Loperamide Hcl 2 Mg Capsule) 4 mg PO Q4H PRN PRN Reason: Diarrhea Last Admin: 11/01/21 17:04 Dose: 4 mg Magnesium Hydroxide (Milk Of Magnesia 30 Ml Oral.Susp) 30 ml PO DAILY PRN PRN Reason: Constipation Last Admin: 01/27/22 11:56 Dose: 30 ml Mirtazapine (Mirtazapine 15 Mg Tablet) 15 mg PO BEDTIME [facility] Last Admin: 01/26/22 20:47 Dose: 15 mg Olanzapine (Olanzapine 10 Mg Vial) 5 mg IM STAT PRN PRN Reason: refusal of Clozaril PO Polyethylene Glycol (Polyethylene Glycol 3350 17 Gm Powd.Pack) 17 gm PO BID [facility] Last Admin: 01/27/22 08:37 Dose: 17 gm Potassium Chloride (Potassium Chloride Er 10 Meq Capsule.Er) 40 meq PO BID [facility] Last Admin: 01/27/22 08:14 Dose: 40 meq Senna (Sennosides 8.6 Mg Tablet) 8.6 mg PO BEDTIME [facility] Last Admin: 01/26/22 20:47 Dose: 8.6 mg Trazodone HCl (Trazodone Hcl 50 Mg Tablet) 50 mg PO BEDTIME PRN PRN Reason: Insomnia Last Admin: 01/24/22 20:18 Dose: 50 mg Trolamine Salicylate/Aloe Vera (Trolamine Salicylate 10%/Aloe Cream 35.4 Gm) 1 appl TOPICAL TID PRN PRN Reason: neck pain Last Admin: 01/19/22 02:14 Dose: 1 appl Allergies Allergies Allergy/AdvReac Type Severity Reaction Status Date / Time No Known Allergies Allergy Unverified 05/01/20 19:42 [No Known Allergies*] Assessment & Plan Assessment & Plan (1) Schizophrenia, paranoid, chronic with acute exacerbation: Status: Acute Code(s): F20.0 - Paranoid schizophrenia Assessment and Plan: cont clozapine tx plan monitor for oversedation (2) Hypertension: Status: Acute Code(s): I10 - Essential (primary) hypertension (3) Dementia: Status: Acute Code(s): F03.90 - Unspecified dementia without behavioral disturbance Plan Elderly female with a long history of schizoaffective disorder bipolar type who was admitted into the facility for exacerbation of psychosis and mood lability. The patient is on Clozaril and apparently she has not been fully compliant with treatment. 11/21 slipped, hit head on 11/20, head CT reviewed and unremarkable. We did a MOCA and she is technically demented at this moment Plan 1. The patient at this moment is on 3 psychotics, Clozaril , Haldol and Invega Sustenna. 2. Discontinue Haldol 5 mg IM if the patient refuses Clozaril and replace with Geodon IM. 3. keep same treatment. 4. COVID-19 protocol 5. Blood work for tomorrow , repeat lithium level I spent ___20___ minutes with the patient and/or on the patient floor today, greater than?50% of which was spent counseling/coordinating care. Reason for contiued inpatient stay Substantial Risk for: inability to function, rapid decompensation and med/psych decompensation
[2022-01-27] MEDS: cloZAPine 100 MG TABLET 200 MG PO (17:02)
[2022-01-27 19:45] VITALS: BP 98/59; PULSE 89; RESP 17; TEMP 36.1; O2SAT 95
[2022-01-27] MEDS: Mirtazapine 15 MG TABLET PO (19:48)
[2022-01-27] MEDS: cloZAPine 100 MG TABLET 300 MG PO (19:48)
[2022-01-27] MEDS: Sennosides 8.6 MG TABLET PO (19:49)
[2022-01-28 06:00] VITALS: BP 113/60; PULSE 80; RESP 14; TEMP 37; O2SAT 98
[2022-01-28 06:24] VITALS: BMI 26.2
[2022-01-28] MEDS: hydroCHLOROthiazide 25 MG TABLET PO (08:00)
[2022-01-28] MEDS: HaloperidoL 5 MG TABLET PO ×2 (08:00→20:19)
[2022-01-28] MEDS: Lithium Carbonate 300 MG CAPSULE PO ×2 (08:00→20:19)
[2022-01-28] MEDS: Benztropine Mesylate 1 MG TABLET PO ×2 (08:00→20:20)
[2022-01-28] MEDS: cloZAPine 100 MG TABLET PO (08:00)
[2022-01-28] MEDS: Desmopressin Acetate 0.2 MG TABLET PO ×2 (08:01→20:19)
[2022-01-28] MEDS: Apixaban 5 MG TABLET PO ×2 (08:01→20:20)
[2022-01-28] MEDS: polyethylene glycoL 3350 17 GM POWD.PACK PO ×2 (08:02→20:18)
[2022-01-28] MEDS: Docusate Sodium 100 MG CAPSULE PO ×2 (09:49→20:19)
[2022-01-28] MEDS: Clotrimazole 1 % Cream 15 GM TUBE 1 APPL TOPICAL ×2 (09:49→22:01)
[2022-01-28 13:06] LABS: Vitamin D 25-OH, D2 <4 ng/mL; Vitamin D 25-OH, D3 29 ng/mL; Vitamin D 25-OH, Total 29 ng/mL (30-100)
--- NOTE | 2022-01-28 15:25 | HO.PSYCHPN ---
Subjective Subjective Date of Service: 01/28/22 Reason For Visit: psychotic disorder Subjective Notes: Conditional Voluntary Interim History: the nursing staff reported the patient took all her medications with encouragement. She has had auditory hallucinations and she has emotional outburst at time but she was easily redirectable. On interview the patient denies new symptoms she feels that she does not want to have any changes in her current medications. 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 She has been denied from several SNF is Mental Status Exam Mental Status Exam Patient Appearance: Appropriate Patient Orientation: Person and Situation Level of Consciousness: Awake Patient Behavior: Cooperative Mood Description: Labile Affect Description: Constricted Patient Cognition Impaired: Yes Ability to Follow Directions: Good Speech Pattern: Clear Hallucinations: Auditory Delusions: Paranoid Ideation Thought Process: Illogical Thought Content: positive for Poverty of Content and positive for Loose Associations Judgement: Fair Diagnostics Vital Signs (24Hr): Vital Signs - 24 hr 01/27/22 19:45 01/28/22 06:00 Temperature 96.9 F 98.6 F Pulse Rate 89 80 Respiratory Rate 17 14 Blood Pressure 98/59 L 113/60 Pulse Oximetry 95 98 Oxygen Delivery Method Room Air Room Air BMI result Body Mass Index 26.2 Labs Results: 01/22/22 08:07 01/22/22 08:07 Labs: Laboratory Results - last 48 hr 01/24/22 01/27/22 07:19 08:13 25-OH Vitamin D Total 29 L 25-Hydroxy Vitamin D2 <4 25-Hydroxy Vitamin D3 29 [place] 0.90 Imaging Radiology Impressions: ITS Impressions Head CT 10/08/21 15:16 IMPRESSION: No acute intracranial pathology. Head CT 10/09/21 13:54 IMPRESSION: No acute intracranial pathology. Pelvic/Transvag US 10/13/21 09:24 IMPRESSION: Abnormally thickened endometrium for a postmenopausal patient measuring 0.9 cm. 3 x 2.7 x 3.7 cm mass in the posterior cervix. This may represent a fibroid. Slightly thickened trabeculated bladder wall. Head CT 10/20/21 08:18 IMPRESSION: No acute intracranial pathology. This critical result was discussed with Dr. Chu at 8:30 hours on 10/20/2021. It was ascertained that the content and urgency of the report was understood at the time of direct communication. Head CT 11/20/21 19:29 IMPRESSION: No acute intracranial pathology. Medications Medications Current Medications Acetaminophen (Acetaminophen 325 Mg Tablet) 650 mg PO Q6H PRN PRN Reason: Headache/Pain Mild Scale (1-3) Last Admin: 01/27/22 09:16 Dose: 650 mg Al Hydroxide/Mg Hydroxide (Magnesium Hydrox/Alum Hydrox 30 Ml Oral.Susp) 30 ml PO Q6H PRN PRN Reason: Heartburn/Nausea Apixaban (Apixaban 5 Mg Tablet) 5 mg PO BID [facility] Last Admin: 01/28/22 08:01 Dose: 5 mg Benztropine Mesylate (Benztropine Mesylate 1 Mg Tablet) 1 mg PO BID [facility] Last Admin: 01/28/22 08:00 Dose: 1 mg Bisacodyl (Bisacodyl 10 Mg Supp.Rect) 10 mg [place] DAILY PRN PRN Reason: Constipation Last Admin: 12/16/21 04:01 Dose: 10 mg Clotrimazole (Clotrimazole 1 % Cream 15 Gm Tube) 1 appl TOPICAL BID [facility]; Protocol Last Admin: 01/28/22 09:49 Dose: 1 appl Clozapine (Clozapine 100 Mg Tablet) 100 mg PO DAILY [facility] Last Admin: 01/28/22 08:00 Dose: 100 mg Clozapine (Clozapine 100 Mg Tablet) 200 mg PO DAILY@1700 [facility] Last Admin: 01/27/22 17:02 Dose: 200 mg Clozapine (Clozapine 100 Mg Tablet) 300 mg PO BEDTIME [facility] Last Admin: 01/27/22 19:48 Dose: 300 mg Desmopressin Acetate (Desmopressin Acetate 0.2 Mg Tablet) 0.2 mg PO BID [facility] Last Admin: 01/28/22 08:01 Dose: 0.2 mg Docusate Sodium (Docusate Sodium 100 Mg Capsule) 100 mg PO BID [facility] Last Admin: 01/28/22 09:49 Dose: 100 mg Haloperidol (Haloperidol 5 Mg Tablet) 5 mg PO BID [facility] Last Admin: 01/28/22 08:00 Dose: 5 mg Hydrochlorothiazide (Hydrochlorothiazide 25 Mg Tablet) 25 mg PO DAILY [facility]; Protocol Last Admin: 01/28/22 08:00 Dose: 25 mg Hydroxyzine HCl (Hydroxyzine Hcl 25 Mg Tablet) 25 mg PO BEDTIME PRN PRN Reason: Anxiety Last Admin: 01/10/22 22:47 Dose: 25 mg Hydroxyzine HCl (Hydroxyzine Hcl 25 Mg Tablet) 25 mg PO BID PRN PRN Reason: Anxiety Last Admin: 01/16/22 15:10 Dose: 25 mg [place] Carbonate ([place] Carbonate 300 Mg Capsule) 300 mg PO BID [facility] Last Admin: 01/28/22 08:00 Dose: 300 mg Loperamide HCl (Loperamide Hcl 2 Mg Capsule) 4 mg PO Q4H PRN PRN Reason: Diarrhea Last Admin: 11/01/21 17:04 Dose: 4 mg Magnesium Hydroxide (Milk Of Magnesia 30 Ml Oral.Susp) 30 ml PO DAILY PRN PRN Reason: Constipation Last Admin: 01/27/22 11:56 Dose: 30 ml Mirtazapine (Mirtazapine 15 Mg Tablet) 15 mg PO BEDTIME [facility] Last Admin: 01/27/22 19:48 Dose: 15 mg Olanzapine (Olanzapine 10 Mg Vial) 5 mg IM STAT PRN PRN Reason: refusal of Clozaril PO Polyethylene Glycol (Polyethylene Glycol 3350 17 Gm Powd.Pack) 17 gm PO BID [facility] Last Admin: 01/28/22 08:02 Dose: 17 gm Potassium Chloride (Potassium Chloride Er 10 Meq Capsule.Er) 40 meq PO BID [facility] Last Admin: 01/28/22 08:00 Dose: 40 meq Senna (Sennosides 8.6 Mg Tablet) 8.6 mg PO BEDTIME [facility] Last Admin: 01/27/22 19:49 Dose: 8.6 mg Trazodone HCl (Trazodone Hcl 50 Mg Tablet) 50 mg PO BEDTIME PRN PRN Reason: Insomnia Last Admin: 01/24/22 20:18 Dose: 50 mg Trolamine Salicylate/Aloe Vera (Trolamine Salicylate 10%/Aloe Cream 35.4 Gm) 1 appl TOPICAL TID PRN PRN Reason: neck pain Last Admin: 01/19/22 02:14 Dose: 1 appl Allergies Allergies Allergy/AdvReac Type Severity Reaction Status Date / Time No Known Allergies Allergy Unverified 05/01/20 19:42 [No Known Allergies*] Assessment & Plan Assessment & Plan (1) Schizophrenia, paranoid, chronic with acute exacerbation: Status: Acute Code(s): F20.0 - Paranoid schizophrenia Assessment and Plan: cont clozapine tx plan monitor for oversedation (2) Hypertension: Status: Acute Code(s): I10 - Essential (primary) hypertension (3) Dementia: Status: Acute Code(s): F03.90 - Unspecified dementia without behavioral disturbance Plan Elderly female with a long history of schizoaffective disorder bipolar type who was admitted into the facility for exacerbation of psychosis and mood lability. The patient is on Clozaril and apparently she has not been fully compliant with treatment. 11/21 slipped, hit head on 11/20, head CT reviewed and unremarkable. We did a MOCA and she is technically demented at this moment Plan 1. The patient at this moment is on 3 psychotics, Clozaril , Haldol and Invega Sustenna. 2. Discontinue Haldol 5 mg IM if the patient refuses Clozaril and replace with Geodon IM. 3. keep same treatment. 4. COVID-19 protocol 5. Blood work for tomorrow , repeat lithium level I spent __20____ minutes with the patient and/or on the patient floor today, greater than?50% of which was spent counseling/coordinating care. Reason for contiued inpatient stay Substantial Risk for: inability to function, rapid decompensation and med/psych decompensation
[2022-01-28] MEDS: cloZAPine 100 MG TABLET 200 MG PO (16:18)
[2022-01-28 18:00] VITALS: BP 121/57; PULSE 93; RESP 18; TEMP 36.1; O2SAT 99
[2022-01-28] MEDS: Milk of Magnesia 30 ML ORAL.SUSP PO (20:18)
[2022-01-28] MEDS: cloZAPine 100 MG TABLET 300 MG PO (20:18)
[2022-01-28] MEDS: Mirtazapine 15 MG TABLET PO (20:19)
[2022-01-28] MEDS: Sennosides 8.6 MG TABLET PO (20:19)
[2022-01-28] MEDS: Acetaminophen 325 MG TABLET 650 MG PO (20:20)
[2022-01-29] MEDS: Docusate Sodium 100 MG CAPSULE PO ×2 (10:03→20:58)
[2022-01-29] MEDS: Apixaban 5 MG TABLET PO ×2 (10:04→20:58)
[2022-01-29] MEDS: Desmopressin Acetate 0.2 MG TABLET PO ×2 (10:04→20:58)
[2022-01-29] MEDS: cloZAPine 100 MG TABLET PO (10:04)
[2022-01-29] MEDS: Benztropine Mesylate 1 MG TABLET PO ×2 (10:04→20:58)
[2022-01-29] MEDS: hydroCHLOROthiazide 25 MG TABLET PO (10:04)
[2022-01-29] MEDS: HaloperidoL 5 MG TABLET PO ×2 (10:04→20:58)
[2022-01-29] MEDS: Lithium Carbonate 300 MG CAPSULE PO ×2 (10:04→20:59)
[2022-01-29] MEDS: polyethylene glycoL 3350 17 GM POWD.PACK PO (10:05)
[2022-01-29 10:08] LABS: Neut%MD 69.3 %; Neutrophils Absolute Auto 5.6 x10*3/uL (2.0-8.3)
--- NOTE | 2022-01-29 13:12 | P.PNPSI_ITS ---
Subjective Subjective Date of Service: 01/29/22 Reason For Visit: psychotic disorder Interim History: the nursing staff reported the patient has participated in groups, she had auditory hallucinations and she was out in the evening. She slept for 4 hours. On interview the patient denies new symptoms able to be redirected easily. Mental Status Exam Mental Status Exam Patient Appearance: Well Grooomed Patient Orientation: Person and Situation Level of Consciousness: Restless Patient Behavior: Guarded and Passive Mood Description: Suspicious and Withdrawn Affect Description: Labile Patient Cognition Impaired: Yes Ability to Follow Directions: Fair Speech Pattern: Clear Hallucinations: Auditory Delusions: Paranoid Ideation Thought Process: Illogical and Linear Thought Content: positive for Poverty of Content Judgement: Poor Diagnostics Vital Signs (24Hr): Vital Signs - 24 hr 01/28/22 18:00 Temperature 96.9 F Pulse Rate 93 Respiratory Rate 18 Blood Pressure 121/57 L Pulse Oximetry 99 Oxygen Delivery Method Room Air BMI result Body Mass Index 26.2 Labs Results: 01/22/22 08:07 01/22/22 08:07 Labs: Laboratory Results - last 48 hr 01/24/22 01/29/22 07:19 09:29 Absolute Neuts (auto) 5.6 25-OH Vitamin D Total 29 L 25-Hydroxy Vitamin D2 <4 25-Hydroxy Vitamin D3 29 Imaging Radiology Impressions: ITS Impressions Head CT 10/08/21 15:16 IMPRESSION: No acute intracranial pathology. Head CT 10/09/21 13:54 IMPRESSION: No acute intracranial pathology. Pelvic/Transvag US 10/13/21 09:24 IMPRESSION: Abnormally thickened endometrium for a postmenopausal patient measuring 0.9 cm. 3 x 2.7 x 3.7 cm mass in the posterior cervix. This may represent a fibroid. Slightly thickened trabeculated bladder wall. Head CT 10/20/21 08:18 IMPRESSION: No acute intracranial pathology. This critical result was discussed with Dr. Chu at 8:30 hours on 10/20/2021. It was ascertained that the content and urgency of the report was understood at the time of direct communication. Head CT 11/20/21 19:29 IMPRESSION: No acute intracranial pathology. Medications Medications Current Medications Acetaminophen (Acetaminophen 325 Mg Tablet) 650 mg PO Q6H PRN PRN Reason: Headache/Pain Mild Scale (1-3) Last Admin: 01/28/22 20:20 Dose: 650 mg Al Hydroxide/Mg Hydroxide (Magnesium Hydrox/Alum Hydrox 30 Ml Oral.Susp) 30 ml PO Q6H PRN PRN Reason: Heartburn/Nausea Apixaban (Apixaban 5 Mg Tablet) 5 mg PO BID [facility] Last Admin: 01/29/22 10:04 Dose: 5 mg Benztropine Mesylate (Benztropine Mesylate 1 Mg Tablet) 1 mg PO BID [facility] Last Admin: 01/29/22 10:04 Dose: 1 mg Bisacodyl (Bisacodyl 10 Mg Supp.Rect) 10 mg [place] DAILY PRN PRN Reason: Constipation Last Admin: 12/16/21 04:01 Dose: 10 mg Clotrimazole (Clotrimazole 1 % Cream 15 Gm Tube) 1 appl TOPICAL BID [facility]; Protocol Last Admin: 01/29/22 10:04 Dose: Not Given Clozapine (Clozapine 100 Mg Tablet) 100 mg PO DAILY [facility] Last Admin: 01/29/22 10:04 Dose: 100 mg Clozapine (Clozapine 100 Mg Tablet) 200 mg PO DAILY@1700 [facility] Last Admin: 01/28/22 16:18 Dose: 200 mg Clozapine (Clozapine 100 Mg Tablet) 300 mg PO BEDTIME [facility] Last Admin: 01/28/22 20:18 Dose: 300 mg Desmopressin Acetate (Desmopressin Acetate 0.2 Mg Tablet) 0.2 mg PO BID [facility] Last Admin: 01/29/22 10:04 Dose: 0.2 mg Docusate Sodium (Docusate Sodium 100 Mg Capsule) 100 mg PO BID [facility] Last Admin: 01/29/22 10:03 Dose: 100 mg Haloperidol (Haloperidol 5 Mg Tablet) 5 mg PO BID [facility] Last Admin: 01/29/22 10:04 Dose: 5 mg Hydrochlorothiazide (Hydrochlorothiazide 25 Mg Tablet) 25 mg PO DAILY [facility]; Protocol Last Admin: 01/29/22 10:04 Dose: 25 mg Hydroxyzine HCl (Hydroxyzine Hcl 25 Mg Tablet) 25 mg PO BEDTIME PRN PRN Reason: Anxiety Last Admin: 01/10/22 22:47 Dose: 25 mg Hydroxyzine HCl (Hydroxyzine Hcl 25 Mg Tablet) 25 mg PO BID PRN PRN Reason: Anxiety Last Admin: 01/16/22 15:10 Dose: 25 mg [place] Carbonate ([place] Carbonate 300 Mg Capsule) 300 mg PO BID [facility] Last Admin: 01/29/22 10:04 Dose: 300 mg Loperamide HCl (Loperamide Hcl 2 Mg Capsule) 4 mg PO Q4H PRN PRN Reason: Diarrhea Last Admin: 11/01/21 17:04 Dose: 4 mg Magnesium Hydroxide (Milk Of Magnesia 30 Ml Oral.Susp) 30 ml PO DAILY PRN PRN Reason: Constipation Last Admin: 01/28/22 20:18 Dose: 30 ml Mirtazapine (Mirtazapine 15 Mg Tablet) 15 mg PO BEDTIME [facility] Last Admin: 01/28/22 20:19 Dose: 15 mg Olanzapine (Olanzapine 10 Mg Vial) 5 mg IM STAT PRN PRN Reason: refusal of Clozaril PO Polyethylene Glycol (Polyethylene Glycol 3350 17 Gm Powd.Pack) 17 gm PO BID [facility] Last Admin: 01/29/22 10:05 Dose: 17 gm Potassium Chloride (Potassium Chloride Er 10 Meq Capsule.Er) 40 meq PO BID [facility] Last Admin: 01/29/22 10:07 Dose: Not Given Senna (Sennosides 8.6 Mg Tablet) 8.6 mg PO BEDTIME [facility] Last Admin: 01/28/22 20:19 Dose: 8.6 mg Trazodone HCl (Trazodone Hcl 50 Mg Tablet) 50 mg PO BEDTIME PRN PRN Reason: Insomnia Last Admin: 01/24/22 20:18 Dose: 50 mg Trolamine Salicylate/Aloe Vera (Trolamine Salicylate 10%/Aloe Cream 35.4 Gm) 1 appl TOPICAL TID PRN PRN Reason: neck pain Last Admin: 01/19/22 02:14 Dose: 1 appl Allergies Allergies Allergy/AdvReac Type Severity Reaction Status Date / Time No Known Allergies Allergy Unverified 05/01/20 19:42 [No Known Allergies*] Assessment & Plan Assessment & Plan (1) Schizophrenia, paranoid, chronic with acute exacerbation: Status: Acute Code(s): F20.0 - Paranoid schizophrenia Assessment and Plan: cont clozapine tx plan monitor for oversedation (2) Hypertension: Status: Acute Code(s): I10 - Essential (primary) hypertension (3) Dementia: Status: Acute Code(s): F03.90 - Unspecified dementia without behavioral disturbance Plan Elderly female with a long history of schizoaffective disorder bipolar type who was admitted into the facility for exacerbation of psychosis and mood lability. The patient is on Clozaril and apparently she has not been fully co mpliant with treatment. 11/21 slipped, hit head on 11/20, head CT reviewed and unremarkable. We did a MOCA and she is technically demented at this moment Plan 1. The patient at this moment is on 3 psychotics, Clozaril , Haldol and Invega Sustenna. 2. Discontinue Haldol 5 mg IM if the patient refuses Clozaril and replace with Geodon IM. 3. keep same treatment. 4. COVID-19 protocol 5. [place] level on therapeutic range I spent ___20___ minutes with the patient and/or on the patient floor today, greater than?50% of which was spent counseling/coordinating care. Reason for contiued inpatient stay Substantial Risk for: inability to function, rapid decompensation and med/psych decompensation
[2022-01-29] MEDS: cloZAPine 100 MG TABLET 200 MG PO (16:46)
[2022-01-29 18:00] VITALS: BP 99/52; PULSE 87; RESP 16; TEMP 36.6; O2SAT 96
[2022-01-29] MEDS: Clotrimazole 1 % Cream 15 GM TUBE 1 APPL TOPICAL (20:58)
[2022-01-29] MEDS: cloZAPine 100 MG TABLET 300 MG PO (20:58)
[2022-01-29] MEDS: Mirtazapine 15 MG TABLET PO (20:59)
[2022-01-29] MEDS: Sennosides 8.6 MG TABLET PO (20:59)
[2022-01-30 08:00] VITALS: BP 98/58; PULSE 91; RESP 18; TEMP 35.7; O2SAT 94
[2022-01-30] MEDS: cloZAPine 100 MG TABLET PO (10:30)
[2022-01-30] MEDS: Lithium Carbonate 300 MG CAPSULE PO ×2 (10:30→20:41)
[2022-01-30] MEDS: HaloperidoL 5 MG TABLET PO ×2 (10:31→20:41)
[2022-01-30] MEDS: Clotrimazole 1 % Cream 15 GM TUBE 1 APPL TOPICAL ×2 (10:35→20:59)
[2022-01-30] MEDS: Apixaban 5 MG TABLET PO ×2 (11:14→20:41)
[2022-01-30] MEDS: Docusate Sodium 100 MG CAPSULE PO ×2 (11:15→20:41)
[2022-01-30] MEDS: Benztropine Mesylate 1 MG TABLET PO ×2 (11:15→20:41)
[2022-01-30] MEDS: Desmopressin Acetate 0.2 MG TABLET PO ×2 (11:15→20:41)
[2022-01-30] MEDS: cloZAPine 100 MG TABLET 200 MG PO (16:57)
--- NOTE | 2022-01-30 17:56 | HO.PSYCHPN ---
Subjective Subjective Date of Service: 01/30/22 Reason For Visit: psychotic disorder Interim History: met with patient. Discussed with Nursing. Noted lost bed a community placement in context of recent COVID outbreak on the unit. Ongoing hallucinations. With repairer typewriter was guarded and slightly irritable. Self-care poor. Declined to engage in interview. Medication Compliance: Yes ( As per Ty) Side effects from medications: No Attending Groups: No Review of Systems Acute medical concerns: No Review of Systems Review of Systems Yes Unobtainable due to mental status Mental Status Exam Mental Status Exam Narrative: in bed. Poor self-care. Irritable. Guarded and declined to engage in interview Diagnostics Vital Signs (24Hr): Vital Signs - 24 hr 01/29/22 18:00 01/30/22 08:00 Temperature 97.9 F 96.3 F L Pulse Rate 87 91 Respiratory Rate 16 18 Blood Pressure 99/52 L 98/58 L Pulse Oximetry 96 94 Oxygen Delivery Method Room Air Room Air BMI result Body Mass Index 26.2 Labs Results: 01/22/22 08:07 01/22/22 08:07 Labs: Laboratory Results - last 48 hr 01/29/22 09:29 Absolute Neuts (auto) 5.6 Imaging Radiology Impressions: ITS Impressions Head CT 10/08/21 15:16 IMPRESSION: No acute intracranial pathology. Head CT 10/09/21 13:54 IMPRESSION: No acute intracranial pathology. Pelvic/Transvag US 10/13/21 09:24 IMPRESSION: Abnormally thickened endometrium for a postmenopausal patient measuring 0.9 cm. 3 x 2.7 x 3.7 cm mass in the posterior cervix. This may represent a fibroid. Slightly thickened trabeculated bladder wall. Head CT 10/20/21 08:18 IMPRESSION: No acute intracranial pathology. This critical result was discussed with Dr. Chu at 8:30 hours on 10/20/2021. It was ascertained that the content and urgency of the report was understood at the time of direct communication. Head CT 11/20/21 19:29 IMPRESSION: No acute intracranial pathology. Medications Medications Current Medications Acetaminophen (Acetaminophen 325 Mg Tablet) 650 mg PO Q6H PRN PRN Reason: Headache/Pain Mild Scale (1-3) Last Admin: 01/28/22 20:20 Dose: 650 mg Al Hydroxide/Mg Hydroxide (Magnesium Hydrox/Alum Hydrox 30 Ml Oral.Susp) 30 ml PO Q6H PRN PRN Reason: Heartburn/Nausea Apixaban (Apixaban 5 Mg Tablet) 5 mg PO BID [facility] Last Admin: 01/30/22 11:14 Dose: 5 mg Benztropine Mesylate (Benztropine Mesylate 1 Mg Tablet) 1 mg PO BID [facility] Last Admin: 01/30/22 11:15 Dose: 1 mg Bisacodyl (Bisacodyl 10 Mg Supp.Rect) 10 mg [place] DAILY PRN PRN Reason: Constipation Last Admin: 12/16/21 04:01 Dose: 10 mg Clotrimazole (Clotrimazole 1 % Cream 15 Gm Tube) 1 appl TOPICAL BID [facility]; Protocol Last Admin: 01/30/22 10:35 Dose: 1 appl Clozapine (Clozapine 100 Mg Tablet) 100 mg PO DAILY [facility] Last Admin: 01/30/22 10:30 Dose: 100 mg Clozapine (Clozapine 100 Mg Tablet) 200 mg PO DAILY@1700 [facility] Last Admin: 01/30/22 16:57 Dose: 200 mg Clozapine (Clozapine 100 Mg Tablet) 300 mg PO BEDTIME [facility] Last Admin: 01/29/22 20:58 Dose: 300 mg Desmopressin Acetate (Desmopressin Acetate 0.2 Mg Tablet) 0.2 mg PO BID [facility] Last Admin: 01/30/22 11:15 Dose: 0.2 mg Docusate Sodium (Docusate Sodium 100 Mg Capsule) 100 mg PO BID [facility] Last Admin: 01/30/22 11:15 Dose: 100 mg Haloperidol (Haloperidol 5 Mg Tablet) 5 mg PO BID [facility] Last Admin: 01/30/22 10:31 Dose: 5 mg Hydrochlorothiazide (Hydrochlorothiazide 25 Mg Tablet) 25 mg PO DAILY [facility]; Protocol Last Admin: 01/30/22 10:37 Dose: Not Given Hydroxyzine HCl (Hydroxyzine Hcl 25 Mg Tablet) 25 mg PO BEDTIME PRN PRN Reason: Anxiety Last Admin: 01/10/22 22:47 Dose: 25 mg Hydroxyzine HCl (Hydroxyzine Hcl 25 Mg Tablet) 25 mg PO BID PRN PRN Reason: Anxiety Last Admin: 01/16/22 15:10 Dose: 25 mg [place] Carbonate ([place] Carbonate 300 Mg Capsule) 300 mg PO BID [facility] Last Admin: 01/30/22 10:30 Dose: 300 mg Loperamide HCl (Loperamide Hcl 2 Mg Capsule) 4 mg PO Q4H PRN PRN Reason: Diarrhea Last Admin: 11/01/21 17:04 Dose: 4 mg Magnesium Hydroxide (Milk Of Magnesia 30 Ml Oral.Susp) 30 ml PO DAILY PRN PRN Reason: Constipation Last Admin: 01/28/22 20:18 Dose: 30 ml Mirtazapine (Mirtazapine 15 Mg Tablet) 15 mg PO BEDTIME [facility] Last Admin: 01/29/22 20:59 Dose: 15 mg Olanzapine (Olanzapine 10 Mg Vial) 5 mg IM STAT PRN PRN Reason: refusal of Clozaril PO Polyethylene Glycol (Polyethylene Glycol 3350 17 Gm Powd.Pack) 17 gm PO BID [facility] Last Admin: 01/30/22 10:37 Dose: Not Given Potassium Chloride (Potassium Chloride Er 10 Meq Capsule.Er) 40 meq PO BID [facility] Last Admin: 01/30/22 10:37 Dose: Not Given Senna (Sennosides 8.6 Mg Tablet) 8.6 mg PO BEDTIME [facility] Last Admin: 01/29/22 20:59 Dose: 8.6 mg Trazodone HCl (Trazodone Hcl 50 Mg Tablet) 50 mg PO BEDTIME PRN PRN Reason: Insomnia Last Admin: 01/24/22 20:18 Dose: 50 mg Trolamine Salicylate/Aloe Vera (Trolamine Salicylate 10%/Aloe Cream 35.4 Gm) 1 appl TOPICAL TID PRN PRN Reason: neck pain Last Admin: 01/19/22 02:14 Dose: 1 appl Allergies Allergies Allergy/AdvReac Type Severity Reaction Status Date / Time No Known Allergies Allergy Unverified 05/01/20 19:42 [No Known Allergies*] Assessment & Plan Assessment & Plan (1) Schizophrenia, paranoid, chronic with acute exacerbation: Status: Acute Code(s): F20.0 - Paranoid schizophrenia Assessment and Plan: cont clozapine tx plan monitor for oversedation 01/30/2022: No changes (2) Hypertension: Status: Acute Code(s): I10 - Essential (primary) hypertension (3) Dementia: Status: Acute Code(s): F03.90 - Unspecified dementia without behavioral disturbance Plan Elderly female with a long history of schizoaffective disorder bipolar type who was admitted into the facility for exacerbation of psychosis and mood lability. The patient is on Clozaril and apparently she has not been fully compliant with treatment. 11/21 slipped, hit head on 11/20, head CT reviewed and unremarkable. We did a MOCA and she is technically demented at this moment Plan 1. The patient at this moment is on 3 psychotics, Clozaril , Haldol and Invega Sustenna. 2. Discontinue Haldol 5 mg IM if the patient refuses Clozaril and replace with Geodon IM. 3. keep same treatment. 4. COVID-19 protocol 5. [place] level on therapeutic range I spent minutes with the patient and/or on the patient floor today, greater than?50% of which was spent counseling/coordinating care. Reason for contiued inpatient stay Substantial Risk for: inability to function
[2022-01-30 18:00] VITALS: BP 115/57; PULSE 88; RESP 18; TEMP 37; O2SAT 96
[2022-01-30] MEDS: cloZAPine 100 MG TABLET 300 MG PO (20:40)
[2022-01-30] MEDS: Mirtazapine 15 MG TABLET PO (20:41)
[2022-01-30] MEDS: polyethylene glycoL 3350 17 GM POWD.PACK PO (20:42)
[2022-01-30] MEDS: Sennosides 8.6 MG TABLET PO (20:42)
[2022-01-30] MEDS: Milk of Magnesia 30 ML ORAL.SUSP PO (22:11)
[2022-01-31 09:10] VITALS: BP 116/71; PULSE 97; RESP 16; TEMP 36.4; O2SAT 97
[2022-01-31] MEDS: Benztropine Mesylate 1 MG TABLET PO ×2 (09:13→20:35)
[2022-01-31] MEDS: Docusate Sodium 100 MG CAPSULE PO (09:13)
[2022-01-31] MEDS: Desmopressin Acetate 0.2 MG TABLET PO ×2 (09:13→20:35)
[2022-01-31] MEDS: HaloperidoL 5 MG TABLET PO ×2 (09:13→20:35)
[2022-01-31] MEDS: Apixaban 5 MG TABLET PO ×2 (09:14→20:35)
[2022-01-31] MEDS: Lithium Carbonate 300 MG CAPSULE PO ×2 (09:14→20:35)
[2022-01-31] MEDS: hydroCHLOROthiazide 25 MG TABLET PO (09:14)
[2022-01-31] MEDS: cloZAPine 100 MG TABLET PO (09:15)
[2022-01-31] MEDS: polyethylene glycoL 3350 17 GM POWD.PACK PO (09:16)
[2022-01-31] MEDS: Acetaminophen 325 MG TABLET 650 MG PO (09:44)
[2022-01-31] MEDS: Clotrimazole 1 % Cream 15 GM TUBE 1 APPL TOPICAL (09:47)
--- NOTE | 2022-01-31 11:10 | P.PNPSI_ITS ---
Subjective Subjective Date of Service: 01/31/22 Reason For Visit: psychotic disorder Interim History: Patient seen and discussed with team. Patient evaluated today and upon interview she is found in the milieu watching tv, walker in front of her. Says she is not good, then says I dont wanna, just leave me alone. She appears agitated. In the milieu, patient is safe and visible. Medication Compliance: Yes Side effects from medications: No Attending Groups: No Review of Systems Acute medical concerns: No Medical Review of Systems: unchanged Mental Status Exam Mental Status Exam Narrative: Patient Appearance: Well Grooomed Patient Orientation: Person and Situation Level of Consciousness: Restless Patient Behavior: Guarded and Passive Mood Description: Suspicious and Withdrawn Affect Description: Labile Patient Cognition Impaired: Yes Ability to Follow Directions: Fair Speech Pattern: Clear Hallucinations: Auditory Delusions: Paranoid Ideation Thought Process: Illogical and Linear Thought Content: positive for Poverty of Content Judgment: Poor Diagnostics Vital Signs (24Hr): Vital Signs - 24 hr 01/30/22 18:00 01/31/22 09:10 Temperature 98.6 F 97.5 F Pulse Rate 88 97 Respiratory Rate 18 16 Blood Pressure 115/57 L 116/71 Pulse Oximetry 96 97 Oxygen Delivery Method Room Air Room Air BMI result Body Mass Index 26.2 Labs Results: 01/22/22 08:07 01/22/22 08:07 Imaging Radiology Impressions: ITS Impressions Head CT 10/08/21 15:16 IMPRESSION: No acute intracranial pathology. Head CT 10/09/21 13:54 IMPRESSION: No acute intracranial pathology. Pelvic/Transvag US 10/13/21 09:24 IMPRESSION: Abnormally thickened endometrium for a postmenopausal patient measuring 0.9 cm. 3 x 2.7 x 3.7 cm mass in the posterior cervix. This may represent a fibroid. Slightly thickened trabeculated bladder wall. Head CT 10/20/21 08:18 IMPRESSION: No acute intracranial pathology. This critical result was discussed with Dr. Chu at 8:30 hours on 10/20/2021. It was ascertained that the content and urgency of the report was understood at the time of direct communication. Head CT 11/20/21 19:29 IMPRESSION: No acute intracranial pathology. Medications Medications Current Medications Acetaminophen (Acetaminophen 325 Mg Tablet) 650 mg PO Q6H PRN PRN Reason: Headache/Pain Mild Scale (1-3) Last Admin: 01/31/22 09:44 Dose: 650 mg Al Hydroxide/Mg Hydroxide (Magnesium Hydrox/Alum Hydrox 30 Ml Oral.Susp) 30 ml PO Q6H PRN PRN Reason: Heartburn/Nausea Apixaban (Apixaban 5 Mg Tablet) 5 mg PO BID [facility] Last Admin: 01/31/22 09:14 Dose: 5 mg Benztropine Mesylate (Benztropine Mesylate 1 Mg Tablet) 1 mg PO BID [facility] Last Admin: 01/31/22 09:13 Dose: 1 mg Bisacodyl (Bisacodyl 10 Mg Supp.Rect) 10 mg [place] DAILY PRN PRN Reason: Constipation Last Admin: 12/16/21 04:01 Dose: 10 mg Clotrimazole (Clotrimazole 1 % Cream 15 Gm Tube) 1 appl TOPICAL BID [facility]; Protocol Last Admin: 01/31/22 09:47 Dose: 1 appl Clozapine (Clozapine 100 Mg Tablet) 100 mg PO DAILY [facility] Last Admin: 01/31/22 09:15 Dose: 100 mg Clozapine (Clozapine 100 Mg Tablet) 200 mg PO DAILY@1700 [facility] Last Admin: 01/30/22 16:57 Dose: 200 mg Clozapine (Clozapine 100 Mg Tablet) 300 mg PO BEDTIME [facility] Last Admin: 01/30/22 20:40 Dose: 300 mg Desmopressin Acetate (Desmopressin Acetate 0.2 Mg Tablet) 0.2 mg PO BID [facility] Last Admin: 01/31/22 09:13 Dose: 0.2 mg Docusate Sodium (Docusate Sodium 100 Mg Capsule) 100 mg PO BID [facility] Last Admin: 01/31/22 09:13 Dose: 100 mg Haloperidol (Haloperidol 5 Mg Tablet) 5 mg PO BID [facility] Last Admin: 01/31/22 09:13 Dose: 5 mg Hydrochlorothiazide (Hydrochlorothiazide 25 Mg Tablet) 25 mg PO DAILY [facility]; Protocol Last Admin: 01/31/22 09:14 Dose: 25 mg Hydroxyzine HCl (Hydroxyzine Hcl 25 Mg Tablet) 25 mg PO BEDTIME PRN PRN Reason: Anxiety Last Admin: 01/10/22 22:47 Dose: 25 mg Hydroxyzine HCl (Hydroxyzine Hcl 25 Mg Tablet) 25 mg PO BID PRN PRN Reason: Anxiety Last Admin: 01/16/22 15:10 Dose: 25 mg [place] Carbonate (Clio Carbonate 300 Mg Capsule) 300 mg PO BID [facility] Last Admin: 01/31/22 09:14 Dose: 300 mg Loperamide HCl (Loperamide Hcl 2 Mg Capsule) 4 mg PO Q4H PRN PRN Reason: Diarrhea Last Admin: 11/01/21 17:04 Dose: 4 mg Magnesium Hydroxide (Milk Of Magnesia 30 Ml Oral.Susp) 30 ml PO DAILY PRN PRN Reason: Constipation Last Admin: 01/30/22 22:11 Dose: 30 ml Mirtazapine (Mirtazapine 15 Mg Tablet) 15 mg PO BEDTIME [facility] Last Admin: 01/30/22 20:41 Dose: 15 mg Olanzapine (Olanzapine 10 Mg Vial) 5 mg IM STAT PRN PRN Reason: refusal of Clozaril PO Polyethylene Glycol (Polyethylene Glycol 3350 17 Gm Powd.Pack) 17 gm PO BID [facility] Last Admin: 01/31/22 09:16 Dose: 17 gm Potassium Chloride (Potassium Chloride Er 10 Meq Capsule.Er) 40 meq PO BID [facility] Last Admin: 01/31/22 09:15 Dose: 40 meq Senna (Sennosides 8.6 Mg Tablet) 8.6 mg PO BEDTIME [facility] Last Admin: 01/30/22 20:42 Dose: 8.6 mg Trazodone HCl (Trazodone Hcl 50 Mg Tablet) 50 mg PO BEDTIME PRN PRN Reason: Insomnia Last Admin: 01/24/22 20:18 Dose: 50 mg Trolamine Salicylate/Aloe Vera (Trolamine Salicylate 10%/Aloe Cream 35.4 Gm) 1 appl TOPICAL TID PRN PRN Reason: neck pain Last Admin: 01/19/22 02:14 Dose: 1 appl Allergies Allergies Allergy/AdvReac Type Severity Reaction Status Date / Time No Known Allergies Allergy Unverified 05/01/20 19:42 [No Known Allergies*] Assessment & Plan Assessment & Plan (1) Schizophrenia, paranoid, chronic with acute exacerbation: Status: Acute Code(s): F20.0 - Paranoid schizophrenia Assessment and Plan: cont clozapine tx plan monitor for oversedation 01/30/2022: No changes 01/31/2022: No changes (2) Hypertension: Status: Acute Code(s): I10 - Essential (primary) hypertension (3) Dementia: Status: Acute Code(s): F03.90 - Unspecified dementia without behavioral disturbance Plan Elderly female with a long history of schizoaffective disorder bipolar type who was admitted into the facility for exacerbation of psychosis and mood lability. The patient is on Clozaril and apparently she has not been fully compliant with treatment. 11/21 slipped, hit head on 11/20, head CT reviewed and unremarkable. We did a MOCA and she is technically demented at this moment Plan 1. The patient at this moment is on 3 psychotics, Clozaril , Haldol and Invega Sustenna. 2. Discontinue Haldol 5 mg IM if the patient refuses Clozaril and replace with Geodon IM. 3. keep same treatment. 4. COVID-19 protocol 5. [place] level on therapeutic range I spent minutes with the patient and/or on the patient floor today, greater than?50% of which was spent counseling/coordinating care. Patient educated on: other Reason for contiued inpatient stay Substantial Risk for: inability to function, rapid decompensation and med/psych decompensation
[2022-01-31] MEDS: cloZAPine 100 MG TABLET 200 MG PO (16:35)
[2022-01-31 20:30] VITALS: BP 112/58; PULSE 92; RESP 18; TEMP 36.5; O2SAT 95
[2022-01-31] MEDS: cloZAPine 100 MG TABLET 300 MG PO (20:35)
[2022-01-31] MEDS: Mirtazapine 15 MG TABLET PO (20:35)
[2022-01-31] MEDS: Sennosides 8.6 MG TABLET PO (20:35)
[2022-02-01 06:00] VITALS: BP 100/62; PULSE 89; RESP 16; TEMP 36.5; O2SAT 95
[2022-02-01 10:52] LABS: Lithium 0.92 mmol/L (0.60-1.20)
[2022-02-01 10:56] LABS: Estimated Average Glucose 103 mg/dL; Hemoglobin A1c % 5.2 %
[2022-02-01 11:00] LABS: Cholesterol 217 mg/dL; HDL Cholesterol 48 mg/dL; LDL Cholesterol Calculated 150 mg/dl; Triglycerides 95 mg/dL
[2022-02-01] MEDS: HaloperidoL 5 MG TABLET PO ×2 (11:10→20:21)
[2022-02-01] MEDS: hydroCHLOROthiazide 25 MG TABLET PO (11:10)
[2022-02-01] MEDS: Desmopressin Acetate 0.2 MG TABLET PO ×2 (11:10→20:21)
[2022-02-01] MEDS: Apixaban 5 MG TABLET PO ×2 (11:10→20:22)
[2022-02-01] MEDS: cloZAPine 100 MG TABLET PO (11:10)
[2022-02-01] MEDS: Benztropine Mesylate 1 MG TABLET PO ×2 (11:11→20:21)
[2022-02-01] MEDS: Lithium Carbonate 300 MG CAPSULE PO ×2 (11:11→20:21)
[2022-02-01] MEDS: Docusate Sodium 100 MG CAPSULE PO ×2 (11:11→20:21)
--- NOTE | 2022-02-01 16:28 | HO.PSYCHPN ---
Subjective Subjective Date of Service: 02/01/22 Reason For Visit: psychotic disorder Subjective Notes: Conditional Voluntary Interim History: The nursing staff reported the patient is off one-to-one. She remains as usual, easily redirectable, pleasantly confused at times with a sporadic auditory hallucinations but safe in the facility. On interview, she was with her brother who visited her and she was in good spirits. She is waiting for placement and she understands that she has to wait for the approval of the [facility] facility. Mental Status Exam Mental Status Exam Patient Appearance: Well Grooomed Patient Orientation: Person Level of Consciousness: Awake Patient Behavior: Cooperative Mood Description: Withdrawn Affect Description: Calm Patient Cognition Impaired: Yes Ability to Follow Directions: Good Speech Pattern: Appropriate Hallucinations: Auditory Delusions: Paranoid Ideation Thought Process: Illogical and Distracted Thought Content: positive for Poverty of Content Judgement: Fair Diagnostics Vital Signs (24Hr): Vital Signs - 24 hr 01/31/22 20:30 02/01/22 06:00 Temperature 97.7 F 97.7 F Pulse Rate 92 89 Respiratory Rate 18 16 Blood Pressure 112/58 L 100/62 Pulse Oximetry 95 95 Oxygen Delivery Method Room Air Room Air BMI result Body Mass Index 26.2 Labs Results: 01/22/22 08:07 01/22/22 08:07 Labs: Laboratory Results - last 48 hr 02/01/22 02/01/22 02/01/22 10:37 10:37 10:37 Estimat Average Glucose 103 Hemoglobin A1c % 5.2 Triglycerides 95 Cholesterol 217 D LDL Cholesterol, Calc 150 HDL Cholesterol [address] [place] 0.92 Imaging Radiology Impressions: ITS Impressions Head CT 10/08/21 15:16 IMPRESSION: No acute intracranial pathology. Head CT 10/09/21 13:54 IMPRESSION: No acute intracranial pathology. Pelvic/Transvag US 10/13/21 09:24 IMPRESSION: Abnormally thickened endometrium for a postmenopausal patient measuring 0.9 cm. 3 x 2.7 x 3.7 cm mass in the posterior cervix. This may represent a fibroid. Slightly thickened trabeculated bladder wall. Head CT 10/20/21 08:18 IMPRESSION: No acute intracranial pathology. This critical result was discussed with Dr. Chu at 8:30 hours on 10/20/2021. It was ascertained that the content and urgency of the report was understood at the time of direct communication. Head CT 11/20/21 19:29 IMPRESSION: No acute intracranial pathology. Medications Medications Current Medications Acetaminophen (Acetaminophen 325 Mg Tablet) 650 mg PO Q6H PRN PRN Reason: Headache/Pain Mild Scale (1-3) Last Admin: 01/31/22 09:44 Dose: 650 mg Al Hydroxide/Mg Hydroxide (Magnesium Hydrox/Alum Hydrox 30 Ml Oral.Susp) 30 ml PO Q6H PRN PRN Reason: Heartburn/Nausea Apixaban (Apixaban 5 Mg Tablet) 5 mg PO BID [facility] Last Admin: 02/01/22 11:10 Dose: 5 mg Benztropine Mesylate (Benztropine Mesylate 1 Mg Tablet) 1 mg PO BID [facility] Last Admin: 02/01/22 11:11 Dose: 1 mg Bisacodyl (Bisacodyl 10 Mg Supp.Rect) 10 mg [place] DAILY PRN PRN Reason: Constipation Last Admin: 12/16/21 04:01 Dose: 10 mg Clotrimazole (Clotrimazole 1 % Cream 15 Gm Tube) 1 appl TOPICAL BID [facility]; Protocol Last Admin: 02/01/22 12:31 Dose: Not Given Clozapine (Clozapine 100 Mg Tablet) 100 mg PO DAILY [facility] Last Admin: 02/01/22 11:10 Dose: 100 mg Clozapine (Clozapine 100 Mg Tablet) 200 mg PO DAILY@1700 [facility] Last Admin: 01/31/22 16:35 Dose: 200 mg Clozapine (Clozapine 100 Mg Tablet) 300 mg PO BEDTIME [facility] Last Admin: 01/31/22 20:35 Dose: 300 mg Desmopressin Acetate (Desmopressin Acetate 0.2 Mg Tablet) 0.2 mg PO BID [facility] Last Admin: 02/01/22 11:10 Dose: 0.2 mg Docusate Sodium (Docusate Sodium 100 Mg Capsule) 100 mg PO BID [facility] Last Admin: 02/01/22 11:11 Dose: 100 mg Haloperidol (Haloperidol 5 Mg Tablet) 5 mg PO BID [facility] Last Admin: 02/01/22 11:10 Dose: 5 mg Hydrochlorothiazide (Hydrochlorothiazide 25 Mg Tablet) 25 mg PO DAILY [facility]; Protocol Last Admin: 02/01/22 11:10 Dose: 25 mg Hydroxyzine HCl (Hydroxyzine Hcl 25 Mg Tablet) 25 mg PO BEDTIME PRN PRN Reason: Anxiety Last Admin: 05/29/22 22:47 Dose: 25 mg Hydroxyzine HCl (Hydroxyzine Hcl 25 Mg Tablet) 25 mg PO BID PRN PRN Reason: Anxiety Last Admin: 01/16/22 15:10 Dose: [address] [place] Carbonate ([place] Carbonate 300 Mg Capsule) 300 mg PO BID [facility] Last Admin: 02/01/22 11:11 Dose: 300 mg Loperamide HCl (Loperamide Hcl 2 Mg Capsule) 4 mg PO Q4H PRN PRN Reason: Diarrhea Last Admin: 11/01/21 17:04 Dose: 4 mg Magnesium Hydroxide (Milk Of Magnesia 30 Ml Oral.Susp) 30 ml PO DAILY PRN PRN Reason: Constipation Last Admin: 01/30/22 22:11 Dose: 30 ml Mirtazapine (Mirtazapine 15 Mg Tablet) 15 mg PO BEDTIME [facility] Last Admin: 01/31/22 20:35 Dose: 15 mg Olanzapine (Olanzapine 10 Mg Vial) 5 mg IM STAT PRN PRN Reason: refusal of Clozaril PO Polyethylene Glycol (Polyethylene Glycol 3350 17 Gm Powd.Pack) 17 gm PO BID [facility] Last Admin: 02/01/22 11:13 Dose: Not Given Potassium Chloride (Potassium Chloride Er 10 Meq Capsule.Er) 40 meq PO BID [facility] Last Admin: 02/01/22 11:13 Dose: Not Given Senna (Sennosides 8.6 Mg Tablet) 8.6 mg PO BEDTIME [facility] Last Admin: 01/31/22 20:35 Dose: 8.6 mg Trazodone HCl (Trazodone Hcl 50 Mg Tablet) 50 mg PO BEDTIME PRN PRN Reason: Insomnia Last Admin: 01/24/22 20:18 Dose: 50 mg Trolamine Salicylate/Aloe Vera (Trolamine Salicylate 10%/Aloe Cream 35.4 Gm) 1 appl TOPICAL TID PRN PRN Reason: neck pain Last Admin: 01/19/22 02:14 Dose: 1 appl Allergies Allergies Allergy/AdvReac Type Severity Reaction Status Date / Time No Known Allergies Allergy Unverified 05/01/20 19:42 [No Known Allergies*] Assessment & Plan Assessment & Plan (1) Schizophrenia, paranoid, chronic with acute exacerbation: Status: Acute Code(s): F20.0 - Paranoid schizophrenia Assessment and Plan: cont clozapine tx plan monitor for oversedation 01/30/2022: No changes (2) Hypertension: Status: Acute Code(s): I10 - Essential (primary) hypertension (3) Dementia: Status: Acute Code(s): F03.90 - Unspecified dementia without behavioral disturbance Plan Elderly female with a long history of schizoaffective disorder bipolar type who was admitted into the facility for exacerbation of psychosis and mood lability. The patient is on Clozaril and apparently she has not been fully compliant with treatment. 11/21 slipped, hit head on 11/20, head CT reviewed and unremarkable. We did a MOCA and she is technically demented at this moment Plan 1. The patient at this moment is on 3 psychotics, Clozaril , Haldol and Invega Sustenna. 2. Discontinue Haldol 5 mg IM if the patient refuses Clozaril and replace with Geodon IM. 3. keep same treatment. 4. COVID-[address] [place] level on therapeutic range I spent ___20___ minutes with the patient and/or on the patient floor today, greater than?50% of which was spent counseling/coordinating care. Reason for contiued inpatient stay Substantial Risk for: inability to function, rapid decompensation and med/psych decompensation
[2022-02-01] MEDS: cloZAPine 100 MG TABLET 200 MG PO (16:37)
[2022-02-01 18:00] VITALS: BP 130/70; PULSE 100; RESP 16; TEMP 36.8; O2SAT 95
[2022-02-01] MEDS: Mirtazapine 15 MG TABLET PO (20:21)
[2022-02-01] MEDS: cloZAPine 100 MG TABLET 300 MG PO (20:21)
[2022-02-01] MEDS: Sennosides 8.6 MG TABLET PO (20:21)
[2022-02-02] MEDS: Benztropine Mesylate 1 MG TABLET PO (08:53)
[2022-02-02] MEDS: Lithium Carbonate 300 MG CAPSULE PO (08:53)
[2022-02-02] MEDS: HaloperidoL 5 MG TABLET PO (08:54)
[2022-02-02] MEDS: Docusate Sodium 100 MG CAPSULE PO (08:54)
[2022-02-02] MEDS: Apixaban 5 MG TABLET PO (08:54)
[2022-02-02] MEDS: cloZAPine 100 MG TABLET PO (08:54)
[2022-02-02] MEDS: hydroCHLOROthiazide 25 MG TABLET PO (08:54)
[2022-02-02] MEDS: Desmopressin Acetate 0.2 MG TABLET PO (08:55)
[2022-02-02] MEDS: polyethylene glycoL 3350 17 GM POWD.PACK PO (08:55)
[2022-02-02 09:15] VITALS: BP 134/73; PULSE 73; RESP 16; TEMP 36.4; O2SAT 99
[2022-02-02] MEDS: Clotrimazole 1 % Cream 15 GM TUBE 1 APPL TOPICAL (09:51)
[2022-02-02] MEDS: cloZAPine 100 MG TABLET 200 MG PO (16:58)
--- NOTE | 2022-02-02 17:08 | HO.PSYCHPN ---
Subjective Subjective Date of Service: 02/02/22 Reason For Visit: psychotic disorder Subjective Notes: Conditional Voluntary Interim History: The nursing staff reported the patient has been compliant with treatment. She is off one-to-one for several days without any problems. On interview the patient reports that she wants to leave the hospital and I explained her that we are working on a proper and safe discharge plan and she agreed with the plan. Mental Status Exam Mental Status Exam Patient Appearance: Well Grooomed Patient Orientation: Person Level of Consciousness: Awake Patient Behavior: Cooperative Mood Description: Withdrawn Affect Description: Labile Patient Cognition Impaired: Yes Ability to Follow Directions: Good Speech Pattern: Clear Hallucinations: Auditory Delusions: Paranoid Ideation Thought Process: Linear Thought Content: positive for [place] and positive for Poverty of Content Judgement: Fair Diagnostics Vital Signs (24Hr): Vital Signs - 24 hr 02/01/22 18:00 02/02/22 09:15 Temperature 98.2 F 97.5 F Pulse Rate 100 73 Respiratory Rate 16 16 Blood Pressure 130/70 134/73 Pulse Oximetry 95 99 Oxygen Delivery Method Room Air Room Air BMI result Body Mass Index 26.2 Labs Results: 01/22/22 08:07 01/22/22 08:07 Labs: Laboratory Results - last 48 hr 02/01/22 02/01/22 02/01/22 10:37 10:37 10:37 Estimat Average Glucose 103 Hemoglobin A1c % 5.2 Triglycerides 95 Cholesterol 217 D LDL Cholesterol, Calc 150 HDL Cholesterol 48 D [place] 0.92 Imaging Radiology Impressions: ITS Impressions Head CT 10/08/21 15:16 IMPRESSION: No acute intracranial pathology. Head CT 10/09/21 13:54 IMPRESSION: No acute intracranial pathology. Pelvic/Transvag US 10/13/21 09:24 IMPRESSION: Abnormally thickened endometrium for a postmenopausal patient measuring 0.9 cm. 3 x 2.7 x 3.7 cm mass in the posterior cervix. This may represent a fibroid. Slightly thickened trabeculated bladder wall. Head CT 10/20/21 08:18 IMPRESSION: No acute intracranial pathology. This critical result was discussed with Dr. Chu at 8:30 hours on 10/20/2021. It was ascertained that the content and urgency of the report was understood at the time of direct communication. Head CT 11/20/21 19:29 IMPRESSION: No acute intracranial pathology. Medications Medications Current Medications Acetaminophen (Acetaminophen 325 Mg Tablet) 650 mg PO Q6H PRN PRN Reason: Headache/Pain Mild Scale (1-3) Last Admin: 01/31/22 09:44 Dose: 650 mg Al Hydroxide/Mg Hydroxide (Magnesium Hydrox/Alum Hydrox 30 Ml Oral.Susp) 30 ml PO Q6H PRN PRN Reason: Heartburn/Nausea Apixaban (Apixaban 5 Mg Tablet) 5 mg PO BID [facility] Last Admin: 02/02/22 08:54 Dose: 5 mg Benztropine Mesylate (Benztropine Mesylate 1 Mg Tablet) 1 mg PO BID [facility] Last Admin: 02/02/22 08:53 Dose: 1 mg Bisacodyl (Bisacodyl 10 Mg Supp.Rect) 10 mg [place] DAILY PRN PRN Reason: Constipation Last Admin: 12/16/21 04:01 Dose: 10 mg Clotrimazole (Clotrimazole 1 % Cream 15 Gm Tube) 1 appl TOPICAL BID [facility]; Protocol Last Admin: 02/02/22 09:51 Dose: 1 appl Clozapine (Clozapine 100 Mg Tablet) 100 mg PO DAILY [facility] Last Admin: 02/02/22 08:54 Dose: 100 mg Clozapine (Clozapine 100 Mg Tablet) 200 mg PO DAILY@1700 [facility] Last Admin: 02/02/22 16:58 Dose: 200 mg Clozapine (Clozapine 100 Mg Tablet) 300 mg PO BEDTIME [facility] Last Admin: 02/01/22 20:21 Dose: 300 mg Desmopressin Acetate (Desmopressin Acetate 0.2 Mg Tablet) 0.2 mg PO BID [facility] Last Admin: 02/02/22 08:55 Dose: 0.2 mg Docusate Sodium (Docusate Sodium 100 Mg Capsule) 100 mg PO BID [facility] Last Admin: 02/02/22 08:54 Dose: 100 mg Haloperidol (Haloperidol 5 Mg Tablet) 5 mg PO BID [facility] Last Admin: 02/02/22 08:54 Dose: 5 mg Hydrochlorothiazide (Hydrochlorothiazide 25 Mg Tablet) 25 mg PO DAILY [facility]; Protocol Last Admin: 02/02/22 08:54 Dose: 25 mg Hydroxyzine HCl (Hydroxyzine Hcl 25 Mg Tablet) 25 mg PO BEDTIME PRN PRN Reason: Anxiety Last Admin: 01/10/22 22:47 Dose: 25 mg Hydroxyzine HCl (Hydroxyzine Hcl 25 Mg Tablet) 25 mg PO BID PRN PRN Reason: Anxiety Last Admin: 01/16/22 15:10 Dose: 25 mg [place] Carbonate ([place] Carbonate 300 Mg Capsule) 300 mg PO BID [facility] Last Admin: 02/02/22 08:53 Dose: 300 mg Loperamide HCl (Loperamide Hcl 2 Mg Capsule) 4 mg PO Q4H PRN PRN Reason: Diarrhea Last Admin: 11/01/21 17:04 Dose: 4 mg Magnesium Hydroxide (Milk Of Magnesia 30 Ml Oral.Susp) 30 ml PO DAILY PRN PRN Reason: Constipation Last Admin: 01/30/22 22:11 Dose: 30 ml Mirtazapine (Mirtazapine 15 Mg Tablet) 15 mg PO BEDTIME [facility] Last Admin: 02/01/22 20:21 Dose: 15 mg Olanzapine (Olanzapine 10 Mg Vial) 5 mg IM STAT PRN PRN Reason: refusal of Clozaril PO Polyethylene Glycol (Polyethylene Glycol 3350 17 Gm Powd.Pack) 17 gm PO BID [facility] Last Admin: 02/02/22 08:55 Dose: 17 gm Potassium Chloride (Potassium Chloride Er 10 Meq Capsule.Er) 40 meq PO BID [facility] Last Admin: 02/02/22 09:03 Dose: Not Given Senna (Sennosides 8.6 Mg Tablet) 8.6 mg PO BEDTIME [facility] Last Admin: 02/01/22 20:21 Dose: 8.6 mg Trazodone HCl (Trazodone Hcl 50 Mg Tablet) 50 mg PO BEDTIME PRN PRN Reason: Insomnia Last Admin: 01/24/22 20:18 Dose: 50 mg Trolamine Salicylate/Aloe Vera (Trolamine Salicylate 10%/Aloe Cream 35.4 Gm) 1 appl TOPICAL TID PRN PRN Reason: neck pain Last Admin: 01/19/22 02:14 Dose: 1 appl Allergies Allergies Allergy/AdvReac Type Severity Reaction Status Date / Time No Known Allergies Allergy Unverified 05/01/20 19:42 [No Known Allergies*] Assessment & Plan Assessment & Plan (1) Schizophrenia, paranoid, chronic with acute exacerbation: Status: Acute Code(s): F20.0 - Paranoid schizophrenia Assessment and Plan: cont clozapine tx plan monitor for oversedation 01/30/2022: No changes 01/31/2022: No changes (2) Hypertension: Status: Acute Code(s): I10 - Essential (primary) hypertension (3) Dementia: Status: Acute Code(s): F03.90 - Unspecified dementia without behavioral disturbance Plan Elderly female with a long history of schizoaffective disorder bipolar type who was admitted into the facility for exacerbation of psychosis and mood lability. The patient is on Clozaril and apparently she has not been fully compliant with treatment. 11/21 slipped, hit head on 11/20, head CT reviewed and unremarkable. We did a MOCA and she is technically demented at this moment Plan 1. The patient at this moment is on 3 psychotics, Clozaril , Haldol and Invega Sustenna. 2. Discontinue Haldol 5 mg IM if the patient refuses Clozaril and replace with Geodon IM. 3. keep same treatment. I spent __20____ minutes with the patient and/or on the patient floor today, greater than?50% of which was spent counseling/coordinating care. Reason for contiued inpatient stay Substantial Risk for: inability to function, rapid decompensation and med/psych decompensation
[2022-02-02 20:45] VITALS: BP 119/55; PULSE 86; RESP 18; TEMP 36.6; O2SAT 97
[2022-02-02] MEDS: Acetaminophen 325 MG TABLET 650 MG PO (22:12)
[2022-02-02] MEDS: cloZAPine 100 MG TABLET 300 MG PO (22:19)
--- NOTE | 2022-02-02 22:38 | PC.NURSE ---
At approx 10pm, Patient had a witnessed fall in the kitchen area. Patient was noted to be ambulating without her walker, which she left by where she was sitting in tv area; witnessed by this automotive service writer from the hallway seeing the patient in a fast shuffle toward a table and chair in the kitchen area falling to her knees before making it to the chair. No apparent injuries, did not hit head, skin intact. Assisted up by this automotive service writer to the chair. Nursing waterproofing supervisor and In-house Covering Psych Provider notified; placed on 5 minute checks until going to bed, and now in bed with bed alarm on and on 15 minute safety checks. Patient refusing HS meds; after many attempts patient accepted only her Clozaril, and took PRN APAP and Aspercreme.
[2022-02-03 07:30] VITALS: BP 96/50; PULSE 83; RESP 14; TEMP 36.5; O2SAT 96
[2022-02-03] MEDS: cloZAPine 100 MG TABLET PO (10:44)
[2022-02-03] MEDS: Docusate Sodium 100 MG CAPSULE PO ×2 (10:44→20:03)
[2022-02-03] MEDS: HaloperidoL 5 MG TABLET PO ×2 (10:45→20:03)
[2022-02-03] MEDS: Benztropine Mesylate 1 MG TABLET PO ×2 (10:45→20:02)
[2022-02-03] MEDS: Lithium Carbonate 300 MG CAPSULE PO ×2 (10:45→20:03)
[2022-02-03] MEDS: Apixaban 5 MG TABLET PO ×2 (10:46→20:02)
[2022-02-03] MEDS: Desmopressin Acetate 0.2 MG TABLET PO ×2 (10:46→20:02)
[2022-02-03] MEDS: hydroCHLOROthiazide 25 MG TABLET PO (10:46)
--- NOTE | 2022-02-03 13:59 | PC.NURSE ---
Patient was presenting as agitated and responding to command AH early in the shift resulting in refusal of all medications. Patient was given IM Olanzapine after several attempts to administer PO medications.
--- NOTE | 2022-02-03 15:21 | P.PNPSI_ITS ---
Subjective Subjective Date of Service: 02/03/22 Reason For Visit: psychotic disorder Subjective Notes: Conditional Voluntary Interim History: the nursing staff reported the patient accepted her p.o. medications there was no need of IM. She is on 5 minutes check but so far she is doing fairly well. On interview no new symptoms, waiting for placement Mental Status Exam Mental Status Exam Patient Appearance: Well Grooomed Patient Orientation: Person Level of Consciousness: Awake Patient Behavior: Cooperative Mood Description: Constricted Affect Description: Labile Patient Cognition Impaired: Yes Speech Pattern: Clear Hallucinations: Auditory Delusions: Paranoid Ideation Thought Process: Linear Judgement: Fair Diagnostics Vital Signs (24Hr): Vital Signs - 24 hr 02/02/22 20:45 02/03/22 07:30 Temperature 98 F 97.7 F Pulse Rate 86 83 Respiratory Rate 18 14 Blood Pressure 119/55 L 96/50 L Pulse Oximetry 97 96 Oxygen Delivery Method Room Air Room Air BMI result Body Mass Index 26.2 Labs Results: 01/22/22 08:07 01/22/22 08:07 Imaging Radiology Impressions: ITS Impressions Head CT 10/08/21 15:16 IMPRESSION: No acute intracranial pathology. Head CT 10/09/21 13:54 IMPRESSION: No acute intracranial pathology. Pelvic/Transvag US 10/13/21 09:24 IMPRESSION: Abnormally thickened endometrium for a postmenopausal patient measuring 0.9 cm. 3 x 2.7 x 3.7 cm mass in the posterior cervix. This may represent a fibroid. Slightly thickened trabeculated bladder wall. Head CT 10/20/21 08:18 IMPRESSION: No acute intracranial pathology. This critical result was discussed with Dr. Chu at 8:30 hours on 10/20/2021. It was ascertained that the content and urgency of the report was understood at the time of direct communication. Head CT 11/20/21 19:29 IMPRESSION: No acute intracranial pathology. Medications Medications Current Medications Acetaminophen (Acetaminophen 325 Mg Tablet) 650 mg PO Q6H PRN PRN Reason: Headache/Pain Mild Scale (1-3) Last Admin: 02/02/22 22:12 Dose: 650 mg Al Hydroxide/Mg Hydroxide (Magnesium Hydrox/Alum Hydrox 30 Ml Oral.Susp) 30 ml PO Q6H PRN PRN Reason: Heartburn/Nausea Apixaban (Apixaban 5 Mg Tablet) 5 mg PO BID [facility] Last Admin: 02/03/22 10:46 Dose: 5 mg Benztropine Mesylate (Benztropine Mesylate 1 Mg Tablet) 1 mg PO BID [facility] Last Admin: 02/03/22 10:45 Dose: 1 mg Bisacodyl (Bisacodyl 10 Mg Supp.Rect) 10 mg [place] DAILY PRN PRN Reason: Constipation Last Admin: 12/16/21 04:01 Dose: 10 mg Clotrimazole (Clotrimazole 1 % Cream 15 Gm Tube) 1 appl TOPICAL BID [facility]; Protocol Last Admin: 02/03/22 14:29 Dose: Not Given Clozapine (Clozapine 100 Mg Tablet) 100 mg PO DAILY [facility] Last Admin: 02/03/22 10:44 Dose: 100 mg Clozapine (Clozapine 100 Mg Tablet) 200 mg PO DAILY@1700 [facility] Last Admin: 02/02/22 16:58 Dose: 200 mg Clozapine (Clozapine 100 Mg Tablet) 300 mg PO BEDTIME [facility] Last Admin: 02/02/22 22:19 Dose: 300 mg Desmopressin Acetate (Desmopressin Acetate 0.2 Mg Tablet) 0.2 mg PO BID [facility] Last Admin: 02/03/22 10:46 Dose: 0.2 mg Docusate Sodium (Docusate Sodium 100 Mg Capsule) 100 mg PO BID [facility] Last Admin: 02/03/22 10:44 Dose: 100 mg Haloperidol (Haloperidol 5 Mg Tablet) 5 mg PO BID [facility] Last Admin: 02/03/22 10:45 Dose: 5 mg Hydrochlorothiazide (Hydrochlorothiazide 25 Mg Tablet) 25 mg PO DAILY [facility]; Protocol Last Admin: 02/03/22 10:46 Dose: 25 mg Hydroxyzine HCl (Hydroxyzine Hcl 25 Mg Tablet) 25 mg PO BEDTIME PRN PRN Reason: Anxiety Last Admin: 01/10/22 22:47 Dose: 25 mg Hydroxyzine HCl (Hydroxyzine Hcl 25 Mg Tablet) 25 mg PO BID PRN PRN Reason: Anxiety Last Admin: 01/16/22 15:10 Dose: 25 mg [place] Carbonate ([place] Carbonate 300 Mg Capsule) 300 mg PO BID [facility] Last Admin: 02/03/22 10:45 Dose: 300 mg Loperamide HCl (Loperamide Hcl 2 Mg Capsule) 4 mg PO Q4H PRN PRN Reason: Diarrhea Last Admin: 11/01/21 17:04 Dose: 4 mg Magnesium Hydroxide (Milk Of Magnesia 30 Ml Oral.Susp) 30 ml PO DAILY PRN PRN Reason: Constipation Last Admin: 01/30/22 22:11 Dose: 30 ml Mirtazapine (Mirtazapine 15 Mg Tablet) 15 mg PO BEDTIME [facility] Last Admin: 02/02/22 22:36 Dose: Not Given Olanzapine (Olanzapine 10 Mg Vial) 5 mg IM STAT PRN PRN Reason: refusal of Clozaril PO Polyethylene Glycol (Polyethylene Glycol 3350 17 Gm Powd.Pack) 17 gm PO BID [facility] Last Admin: 02/03/22 10:47 Dose: Not Given Potassium Chloride (Potassium Chloride Er 10 Meq Capsule.Er) 40 meq PO BID [facility] Last Admin: 02/03/22 10:47 Dose: 40 meq Senna (Sennosides 8.6 Mg Tablet) 8.6 mg PO BEDTIME [facility] Last Admin: 02/02/22 22:34 Dose: Not Given Trazodone HCl (Trazodone Hcl 50 Mg Tablet) 50 mg PO BEDTIME PRN PRN Reason: Insomnia Last Admin: 01/24/22 20:18 Dose: 50 mg Trolamine Salicylate/Aloe Vera (Trolamine Salicylate 10%/Aloe Cream 35.4 Gm) 1 appl TOPICAL TID PRN PRN Reason: neck pain Last Admin: 02/02/22 22:34 Dose: 1 appl Allergies Allergies Allergy/AdvReac Type Severity Reaction Status Date / Time No Known Allergies Allergy Unverified 05/01/20 19:42 [No Known Allergies*] Assessment & Plan Assessment & Plan (1) Schizophrenia, paranoid, chronic with acute exacerbation: Status: Acute Code(s): F20.0 - Paranoid schizophrenia Assessment and Plan: cont clozapine tx plan monitor for oversedation 01/30/2022: No changes 01/31/2022: No changes (2) Hypertension: Status: Acute Code(s): I10 - Essential (primary) hypertension (3) Dementia: Status: Acute Code(s): F03.90 - Unspecified dementia without behavioral disturbance Plan Elderly female with a long history of schizoaffective disorder bipolar type who was admitted into the facility for exacerbation of psychosis and mood lability. The patient is on Clozaril and apparently she has not been fully c ompliant with treatment. 11/21 slipped, hit head on 11/20, head CT reviewed and unremarkable. We did a MOCA and she is technically demented at this moment Plan 1. The patient at this moment is on 3 psychotics, Clozaril , Haldol and Invega Sustenna. 2. Discontinue Haldol 5 mg IM if the patient refuses Clozaril and replace with Geodon IM. 3. keep same treatment. I spent ___20___ minutes with the patient and/or on the patient floor today, greater than?50% of which was spent counseling/coordinating care. Reason for contiued inpatient stay Substantial Risk for: inability to function, rapid decompensation and med/psych decompensation
[2022-02-03] MEDS: cloZAPine 100 MG TABLET 200 MG PO (17:22)
[2022-02-03 18:00] VITALS: BP 124/86; PULSE 83; RESP 16; TEMP 36.1; O2SAT 97
[2022-02-03] MEDS: Clotrimazole 1 % Cream 15 GM TUBE 1 APPL TOPICAL (20:02)
[2022-02-03] MEDS: Mirtazapine 15 MG TABLET PO (20:03)
[2022-02-03] MEDS: cloZAPine 100 MG TABLET 300 MG PO (20:03)
[2022-02-03] MEDS: Sennosides 8.6 MG TABLET PO (20:04)
[2022-02-03] MEDS: Acetaminophen 325 MG TABLET 650 MG PO (21:26)
[2022-02-03] MEDS: hydrOXYzine HCL 25 MG TABLET PO (21:26)
[2022-02-03] MEDS: traZODone HCL 50 MG TABLET PO (21:27)
[2022-02-04 06:00] VITALS: BP 105/59; PULSE 85; RESP 16; TEMP 36.5; O2SAT 97
[2022-02-04] MEDS: cloZAPine 100 MG TABLET PO (08:30)
[2022-02-04] MEDS: HaloperidoL 5 MG TABLET PO ×2 (08:30→20:41)
[2022-02-04] MEDS: Lithium Carbonate 300 MG CAPSULE PO ×2 (08:31→20:41)
[2022-02-04] MEDS: hydroCHLOROthiazide 25 MG TABLET PO (08:31)
[2022-02-04] MEDS: Docusate Sodium 100 MG CAPSULE PO ×2 (08:31→20:41)
[2022-02-04] MEDS: Apixaban 5 MG TABLET PO ×2 (08:31→20:39)
[2022-02-04] MEDS: Benztropine Mesylate 1 MG TABLET PO ×2 (08:31→20:39)
[2022-02-04] MEDS: Desmopressin Acetate 0.2 MG TABLET PO ×2 (08:32→20:40)
--- NOTE | 2022-02-04 14:48 | P.PNPSI_ITS ---
Subjective Subjective Date of Service: 02/04/22 Reason For Visit: psychotic disorder Subjective Notes: Conditional Voluntary Interim History: the nursing staff reported the patient is as usual, easily redirectable. She denies new symptoms she was being compliant with treatment no need of IM backup. The social science research assistant reported that she still waiting for the results of other applications to a [employer] On interview the patient denies new symptoms she is pleasantly psychotic and easily redirectable. Mental Status Exam Mental Status Exam Patient Appearance: Well Grooomed Patient Orientation: Person and Situation Level of Consciousness: Awake Patient Behavior: Cooperative Mood Description: Constricted Affect Description: Labile Patient Cognition Impaired: Yes Ability to Follow Directions: Fair Speech Pattern: Clear Hallucinations: Auditory Delusions: Paranoid Ideation Thought Content: positive for Circumstantial Judgement: Fair Diagnostics Vital Signs (24Hr): Vital Signs - 24 hr 02/03/22 18:00 Temperature 96.9 F Pulse Rate 83 Respiratory Rate 16 Blood Pressure 124/86 Pulse Oximetry 97 Oxygen Delivery Method Room Air BMI result Body Mass Index 26.2 Labs Results: 01/22/22 08:07 01/22/22 08:07 Imaging Radiology Impressions: ITS Impressions Head CT 10/08/21 15:16 IMPRESSION: No acute intracranial pathology. Head CT 10/09/21 13:54 IMPRESSION: No acute intracranial pathology. Pelvic/Transvag US 10/13/21 09:24 IMPRESSION: Abnormally thickened endometrium for a postmenopausal patient measuring 0.9 cm. 3 x 2.7 x 3.7 cm mass in the posterior cervix. This may represent a fibroid. Slightly thickened trabeculated bladder wall. Head CT 10/20/21 08:18 IMPRESSION: No acute intracranial pathology. This critical result was discussed with Dr. Chu at 8:30 hours on 10/20/2021. It was ascertained that the content and urgency of the report was understood at the time of direct communication. Head CT 11/20/21 19:29 IMPRESSION: No acute intracranial pathology. Medications Medications Current Medications Acetaminophen (Acetaminophen 325 Mg Tablet) 650 mg PO Q6H PRN PRN Reason: Headache/Pain Mild Scale (1-3) Last Admin: 02/03/22 21:26 Dose: 650 mg Al Hydroxide/Mg Hydroxide (Magnesium Hydrox/Alum Hydrox 30 Ml Oral.Susp) 30 ml PO Q6H PRN PRN Reason: Heartburn/Nausea Apixaban (Apixaban 5 Mg Tablet) 5 mg PO BID [facility] Last Admin: 02/04/22 08:31 Dose: 5 mg Benztropine Mesylate (Benztropine Mesylate 1 Mg Tablet) 1 mg PO BID [facility] Last Admin: 02/04/22 08:31 Dose: 1 mg Bisacodyl (Bisacodyl 10 Mg Supp.Rect) 10 mg IN DAILY PRN PRN Reason: Constipation Last Admin: 12/16/21 04:01 Dose: 10 mg Clotrimazole (Clotrimazole 1 % Cream 15 Gm Tube) 1 appl TOPICAL BID [facility]; Protocol Last Admin: 02/04/22 09:57 Dose: Not Given Clozapine (Clozapine 100 Mg Tablet) 100 mg PO DAILY [facility] Last Admin: 02/04/22 08:30 Dose: 100 mg Clozapine (Clozapine 100 Mg Tablet) 200 mg PO DAILY@1700 [facility] Last Admin: 02/03/22 17:22 Dose: 200 mg Clozapine (Clozapine 100 Mg Tablet) 300 mg PO BEDTIME [facility] Last Admin: 02/03/22 20:03 Dose: 300 mg Desmopressin Acetate (Desmopressin Acetate 0.2 Mg Tablet) 0.2 mg PO BID [facility] Last Admin: 02/04/22 08:32 Dose: 0.2 mg Docusate Sodium (Docusate Sodium 100 Mg Capsule) 100 mg PO BID [facility] Last Admin: 02/04/22 08:31 Dose: 100 mg Haloperidol (Haloperidol 5 Mg Tablet) 5 mg PO BID [facility] Last Admin: 02/04/22 08:30 Dose: 5 mg Hydrochlorothiazide (Hydrochlorothiazide 25 Mg Tablet) 25 mg PO DAILY [facility]; Protocol Last Admin: 02/04/22 08:31 Dose: 25 mg Hydroxyzine HCl (Hydroxyzine Hcl 25 Mg Tablet) 25 mg PO BEDTIME PRN PRN Reason: Anxiety Last Admin: 02/03/22 21:26 Dose: 25 mg Hydroxyzine HCl (Hydroxyzine Hcl 25 Mg Tablet) 25 mg PO BID PRN PRN Reason: Anxiety Last Admin: 01/16/22 15:10 Dose: 25 mg [place] Carbonate ([place] Carbonate 300 Mg Capsule) 300 mg PO BID [facility] Last Admin: 02/04/22 08:31 Dose: 300 mg Loperamide HCl (Loperamide Hcl 2 Mg Capsule) 4 mg PO Q4H PRN PRN Reason: Diarrhea Last Admin: 11/01/21 17:04 Dose: 4 mg Magnesium Hydroxide (Milk Of Magnesia 30 Ml Oral.Susp) 30 ml PO DAILY PRN PRN Reason: Constipation Last Admin: 01/30/22 22:11 Dose: 30 ml Mirtazapine (Mirtazapine 15 Mg Tablet) 15 mg PO BEDTIME [facility] Last Admin: 02/03/22 20:03 Dose: 15 mg Olanzapine (Olanzapine 10 Mg Vial) 5 mg IM STAT PRN PRN Reason: refusal of Clozaril PO Polyethylene Glycol (Polyethylene Glycol 3350 17 Gm Powd.Pack) 17 gm PO BID [facility] Last Admin: 02/04/22 08:32 Dose: Not Given Potassium Chloride (Potassium Chloride Er 10 Meq Capsule.Er) 40 meq PO BID [facility] Last Admin: 02/04/22 08:33 Dose: Not Given Senna (Sennosides 8.6 Mg Tablet) 8.6 mg PO BEDTIME [facility] Last Admin: 02/03/22 20:04 Dose: 8.6 mg Trazodone HCl (Trazodone Hcl 50 Mg Tablet) 50 mg PO BEDTIME PRN PRN Reason: Insomnia Last Admin: 02/03/22 21:27 Dose: 50 mg Trolamine Salicylate/Aloe Vera (Trolamine Salicylate 10%/Aloe Cream 35.4 Gm) 1 appl TOPICAL TID PRN PRN Reason: neck pain Last Admin: 02/02/22 22:34 Dose: 1 appl Allergies Allergies Allergy/AdvReac Type Severity Reaction Status Date / Time No Known Allergies Allergy Unverified 05/01/20 19:42 [No Known Allergies*] Assessment & Plan Assessment & Plan (1) Schizophrenia, paranoid, chronic with acute exacerbation: Status: Acute Code(s): F20.0 - Paranoid schizophrenia Assessment and Plan: cont clozapine tx plan monitor for oversedation 01/30/2022: No changes 01/31/2022: No changes (2) Hypertension: Status: Acute Code(s): I10 - Essential (primary) hypertension (3) Dementia: Status: Acute Code(s): F03.90 - Unspecified dementia without behavioral disturbance Plan Elderly female with a long history of schizoaffective disorder bipolar type who was admitted into the facility for exacerbation of psychosis and mood lability. The patient is on Clozaril and apparently she has not been fully compliant with treatment. 11/21 slipped, hit head on 11/20, head CT reviewed and unremarkable. We did a MOCA and she is technically demented at this moment Plan 1. The patient at this moment is on 3 psychotics, Clozaril , Haldol and Invega Sustenna. 2. Discontinue Haldol 5 mg IM if the patient refuses Clozaril and replace with Geodon IM. 3. keep same treatment. I spent __20____ minutes with the patient and/or on the patient floor today, greater than?50% of which was spent counseling/coordinating care. Reason for contiued inpatient stay Substantial Risk for: inability to function, rapid decompensation and med/psych decompensation
[2022-02-04] MEDS: cloZAPine 100 MG TABLET 200 MG PO (16:54)
[2022-02-04 18:00] VITALS: BP 109/61; PULSE 91; RESP 16; TEMP 36.1; O2SAT 97
[2022-02-04] MEDS: cloZAPine 100 MG TABLET 300 MG PO (20:40)
[2022-02-04] MEDS: Clotrimazole 1 % Cream 15 GM TUBE 1 APPL TOPICAL (20:40)
[2022-02-04] MEDS: Sennosides 8.6 MG TABLET PO (20:41)
[2022-02-04] MEDS: polyethylene glycoL 3350 17 GM POWD.PACK PO (20:41)
[2022-02-04] MEDS: Acetaminophen 325 MG TABLET 650 MG PO (20:41)
[2022-02-04] MEDS: Mirtazapine 15 MG TABLET PO (20:41)
[2022-02-05 07:30] VITALS: BP 96/57; PULSE 84; RESP 14; TEMP 36.8; O2SAT 93
[2022-02-05 08:18] LABS: Neut%MD 67.8 %; Neutrophils Absolute Auto 4.5 x10*3/uL (2.0-8.3); WBCANC 6.6 X10*3/uL
[2022-02-05] MEDS: Lithium Carbonate 300 MG CAPSULE PO ×2 (09:41→22:24)
[2022-02-05] MEDS: cloZAPine 100 MG TABLET PO ×2 (09:41→19:39)
[2022-02-05] MEDS: Apixaban 5 MG TABLET PO ×2 (09:42→22:24)
[2022-02-05] MEDS: hydroCHLOROthiazide 25 MG TABLET PO (09:42)
[2022-02-05] MEDS: HaloperidoL 5 MG TABLET PO ×2 (09:42→22:24)
[2022-02-05] MEDS: Benztropine Mesylate 1 MG TABLET PO ×2 (09:42→22:24)
[2022-02-05] MEDS: Desmopressin Acetate 0.2 MG TABLET PO ×2 (09:42→22:24)
[2022-02-05] MEDS: Docusate Sodium 100 MG CAPSULE PO (09:42)
[2022-02-05] MEDS: Clotrimazole 1 % Cream 15 GM TUBE 1 APPL TOPICAL (10:40)
[2022-02-05] MEDS: polyethylene glycoL 3350 17 GM POWD.PACK PO (10:40)
[2022-02-05 12:32] LABS: Norclozapine 617 mcg/L (25-400)
[2022-02-05 13:35] LABS: Clozapine (Clozaril) 1121
--- NOTE | 2022-02-05 13:54 | PC.NURSE ---
Lab called with critical lab result for pt, Clozapine level of 1,121 (critically high) from 02/01/2022. Dr. Mcdonnell notified via [employer].
--- NOTE | 2022-02-05 14:04 | HO.PSYCHPN ---
Subjective Subjective Date of Service: 02/05/22 Reason For Visit: psychotic disorder Subjective Notes: Conditional Voluntary Interim History: the nursing staff reported the patient has been as usual, responding to internal stimuli at times but easily redirectable. We review her lab work and her clozapine level was slightly high but there was no evidence of toxicity. We will lowered clozapine to 500 mg a day and will recheck next week. On interview the patient denies new since Mental Status Exam Mental Status Exam Patient Appearance: Well Grooomed Patient Orientation: Person Level of Consciousness: Awake Patient Behavior: Suspicious Mood Description: Calm Affect Description: Constricted Ability to Follow Directions: Fair Speech Pattern: Clear Hallucinations: Auditory Delusions: Paranoid Ideation Thought Process: Distracted Thought Content: positive for Circumstantial Judgement: Fair Diagnostics Vital Signs (24Hr): Vital Signs - 24 hr 02/04/22 18:00 02/05/22 07:30 Temperature 97 F 98.2 F Pulse Rate 91 84 Respiratory Rate 16 14 Blood Pressure 109/61 96/57 L Pulse Oximetry 97 93 Oxygen Delivery Method Room Air Room Air BMI result Body Mass Index 26.2 Labs Results: 01/22/22 08:07 01/22/22 08:07 Labs: Laboratory Results - last 48 hr 02/01/22 02/05/22 10:37 07:48 Absolute Neuts (auto) 4.5 Clozapine 1121 Norclozapine 617 H Imaging Radiology Impressions: ITS Impressions Head CT 10/08/21 15:16 IMPRESSION: No acute intracranial pathology. Head CT 10/09/21 13:54 IMPRESSION: No acute intracranial pathology. Pelvic/Transvag US 10/13/21 09:24 IMPRESSION: Abnormally thickened endometrium for a postmenopausal patient measuring 0.9 cm. 3 x 2.7 x 3.7 cm mass in the posterior cervix. This may represent a fibroid. Slightly thickened trabeculated bladder wall. Head CT 10/20/21 08:18 IMPRESSION: No acute intracranial pathology. This critical result was discussed with Dr. Chu at 8:30 hours on 10/20/2021. It was ascertained that the content and urgency of the report was understood at the time of direct communication. Head CT 11/20/21 19:29 IMPRESSION: No acute intracranial pathology. Medications Medications Current Medications Acetaminophen (Acetaminophen 325 Mg Tablet) 650 mg PO Q6H PRN PRN Reason: Headache/Pain Mild Scale (1-3) Last Admin: 02/04/22 20:41 Dose: 650 mg Al Hydroxide/Mg Hydroxide (Magnesium Hydrox/Alum Hydrox 30 Ml Oral.Susp) 30 ml PO Q6H PRN PRN Reason: Heartburn/Nausea Apixaban (Apixaban 5 Mg Tablet) 5 mg PO BID [facility] Last Admin: 02/05/22 09:42 Dose: 5 mg Benztropine Mesylate (Benztropine Mesylate 1 Mg Tablet) 1 mg PO BID [facility] Last Admin: 02/05/22 09:42 Dose: 1 mg Bisacodyl (Bisacodyl 10 Mg Supp.Rect) 10 mg IN DAILY PRN PRN Reason: Constipation Last Admin: 12/16/21 04:01 Dose: 10 mg Clotrimazole (Clotrimazole 1 % Cream 15 Gm Tube) 1 appl TOPICAL BID [facility]; Protocol Last Admin: 02/05/22 10:40 Dose: 1 appl Clozapine (Clozapine 100 Mg Tablet) 100 mg PO DAILY [facility] Last Admin: 02/05/22 09:41 Dose: 100 mg Clozapine (Clozapine 100 Mg Tablet) 300 mg PO BEDTIME [facility] Last Admin: 02/04/22 20:40 Dose: 300 mg Clozapine (Clozapine 100 Mg Tablet) 100 mg PO DAILY@1700 [facility] Desmopressin Acetate (Desmopressin Acetate 0.2 Mg Tablet) 0.2 mg PO BID [facility] Last Admin: 02/05/22 09:42 Dose: 0.2 mg Docusate Sodium (Docusate Sodium 100 Mg Capsule) 100 mg PO BID [facility] Last Admin: 02/05/22 09:42 Dose: 100 mg Haloperidol (Haloperidol 5 Mg Tablet) 5 mg PO BID [facility] Last Admin: 02/05/22 09:42 Dose: 5 mg Hydrochlorothiazide (Hydrochlorothiazide 25 Mg Tablet) 25 mg PO DAILY [facility]; Protocol Last Admin: 02/05/22 09:42 Dose: 25 mg Hydroxyzine HCl (Hydroxyzine Hcl 25 Mg Tablet) 25 mg PO BEDTIME PRN PRN Reason: Anxiety Last Admin: 02/03/22 21:26 Dose: 25 mg Hydroxyzine HCl (Hydroxyzine Hcl 25 Mg Tablet) 25 mg PO BID PRN PRN Reason: Anxiety Last Admin: 01/16/22 15:10 Dose: 25 mg [place] Carbonate ([place] Carbonate 300 Mg Capsule) 300 mg PO BID [facility] Last Admin: 02/05/22 09:41 Dose: 300 mg Loperamide HCl (Loperamide Hcl 2 Mg Capsule) 4 mg PO Q4H PRN PRN Reason: Diarrhea Last Admin: 11/01/21 17:04 Dose: 4 mg Magnesium Hydroxide (Milk Of Magnesia 30 Ml Oral.Susp) 30 ml PO DAILY PRN PRN Reason: Constipation Last Admin: 01/30/22 22:11 Dose: 30 ml Mirtazapine (Mirtazapine 15 Mg Tablet) 15 mg PO BEDTIME [facility] Last Admin: 02/04/22 20:41 Dose: 15 mg Olanzapine (Olanzapine 10 Mg Vial) 5 mg IM STAT PRN PRN Reason: refusal of Clozaril PO Polyethylene Glycol (Polyethylene Glycol 3350 17 Gm Powd.Pack) 17 gm PO BID [facility] Last Admin: 02/05/22 10:40 Dose: 17 gm Potassium Chloride (Potassium Chloride Er 10 Meq Capsule.Er) 40 meq PO BID [facility] Last Admin: 02/05/22 09:41 Dose: 40 meq Senna (Sennosides 8.6 Mg Tablet) 8.6 mg PO BEDTIME [facility] Last Admin: 02/04/22 20:41 Dose: 8.6 mg Trazodone HCl (Trazodone Hcl 50 Mg Tablet) 50 mg PO BEDTIME PRN PRN Reason: Insomnia Last Admin: 02/03/22 21:27 Dose: 50 mg Trolamine Salicylate/Aloe Vera (Trolamine Salicylate 10%/Aloe Cream 35.4 Gm) 1 appl TOPICAL TID PRN PRN Reason: neck pain Last Admin: 02/02/22 22:34 Dose: 1 appl Allergies Allergies Allergy/AdvReac Type Severity Reaction Status Date / Time No Known Allergies Allergy Unverified 05/01/20 19:42 [No Known Allergies*] Assessment & Plan Assessment & Plan (1) Schizophrenia, paranoid, chronic with acute exacerbation: Status: Acute Code(s): F20.0 - Paranoid schizophrenia Assessment and Plan: cont clozapine tx plan monitor for oversedation 01/30/2022: No changes 01/31/2022: No changes (2) Hypertension: Status: Acute Code(s): I10 - Essential (primary) hypertension (3) Dementia: Status: Acute Code(s): F03.90 - Unspecified dementia without behavioral disturbance Plan Elderly female with a long history of schizoaffective disorder bipolar type who was admitted into the facility for exacerbation of psychosis and mood lability. The patient is on Clozaril and apparently she has not been fully compliant with treatment. 11/21 slipped, hit head on 11/20, head CT reviewed and unremarkable. We did a MOCA and she is technically demented at this moment Plan 1. The patient at this moment is on 3 psychotics, Clozaril , Haldol and Invega Sustenna. 2. Discontinue Haldol 5 mg IM if the patient refuses Clozaril and replace with Zyprexa. 3. Lower total Clozaril to 500 mg a day. We will not continue with Invega Sustenna sings there is no improvement with 3 antipsychotics. We will keep her on Clozaril and Haldol p.o.. I spent __20____ minutes with the patient and/or on the patient floor today, greater than?50% of which was spent counseling/coordinating care. Reason for contiued inpatient stay Substantial Risk for: inability to function, rapid decompensation and med/psych decompensation
[2022-02-05 18:00] VITALS: PULSE 89; RESP 16; TEMP 36.2; O2SAT 99
[2022-02-05] MEDS: cloZAPine 100 MG TABLET 300 MG PO (22:24)
[2022-02-05] MEDS: Sennosides 8.6 MG TABLET PO (22:25)
[2022-02-05] MEDS: Mirtazapine 15 MG TABLET PO (22:25)
[2022-02-06 06:00] VITALS: BP 116/55; PULSE 91; RESP 16; TEMP 36.4; O2SAT 95
[2022-02-06] MEDS: hydroCHLOROthiazide 25 MG TABLET PO (08:46)
[2022-02-06] MEDS: Docusate Sodium 100 MG CAPSULE PO (08:46)
[2022-02-06] MEDS: Benztropine Mesylate 1 MG TABLET PO ×2 (08:46→20:19)
[2022-02-06] MEDS: cloZAPine 100 MG TABLET PO ×2 (08:46→17:44)
[2022-02-06] MEDS: Desmopressin Acetate 0.2 MG TABLET PO ×2 (08:46→20:19)
[2022-02-06] MEDS: Apixaban 5 MG TABLET PO ×2 (08:46→20:19)
[2022-02-06] MEDS: Lithium Carbonate 300 MG CAPSULE PO ×2 (08:46→20:18)
[2022-02-06] MEDS: HaloperidoL 5 MG TABLET PO ×2 (08:46→20:19)
[2022-02-06] MEDS: polyethylene glycoL 3350 17 GM POWD.PACK PO (08:47)
[2022-02-06 20:15] VITALS: BP 118/57; PULSE 94; RESP 14; TEMP 36.7; O2SAT 99
[2022-02-06] MEDS: cloZAPine 100 MG TABLET 300 MG PO (20:19)
[2022-02-06] MEDS: Mirtazapine 15 MG TABLET PO (20:19)
[2022-02-06] MEDS: Sennosides 8.6 MG TABLET PO (20:19)
[2022-02-06] MEDS: Acetaminophen 325 MG TABLET 650 MG PO (23:28)
[2022-02-07 06:00] VITALS: BP 120/58; PULSE 84; RESP 16; TEMP 35.9; O2SAT 99
[2022-02-07] MEDS: Clotrimazole 1 % Cream 15 GM TUBE 1 APPL TOPICAL ×2 (08:43→20:03)
[2022-02-07] MEDS: HaloperidoL 5 MG TABLET PO ×2 (08:43→20:03)
[2022-02-07] MEDS: cloZAPine 100 MG TABLET PO ×2 (08:43→18:06)
[2022-02-07] MEDS: Desmopressin Acetate 0.2 MG TABLET PO ×2 (08:43→20:03)
[2022-02-07] MEDS: Benztropine Mesylate 1 MG TABLET PO ×2 (08:43→20:02)
[2022-02-07] MEDS: Docusate Sodium 100 MG CAPSULE PO ×2 (08:43→20:03)
[2022-02-07] MEDS: hydroCHLOROthiazide 25 MG TABLET PO (08:43)
[2022-02-07] MEDS: Apixaban 5 MG TABLET PO ×2 (08:43→20:02)
[2022-02-07] MEDS: Lithium Carbonate 300 MG CAPSULE PO ×2 (08:43→20:03)
[2022-02-07] MEDS: polyethylene glycoL 3350 17 GM POWD.PACK PO ×2 (08:44→20:04)
[2022-02-07 18:00] VITALS: BP 107/52; PULSE 99; RESP 14; TEMP 36.2; O2SAT 97
[2022-02-07] MEDS: cloZAPine 100 MG TABLET 300 MG PO (20:03)
[2022-02-07] MEDS: Sennosides 8.6 MG TABLET PO (20:04)
[2022-02-07] MEDS: Mirtazapine 15 MG TABLET PO (20:04)
--- NOTE | 2022-02-07 21:07 | HO.PSYCHPN ---
Subjective Subjective Date of Service: 02/06/22 Reason For Visit: psychotic disorder Subjective Notes: Conditional Voluntary Interim History: Patient seems calmer superficially bright asking about discharge less psychotic preoccupations more compliant with medication Medication Compliance: Intermittent Mental Status Exam Mental Status Exam Patient Appearance: Well Grooomed Patient Orientation: Person Level of Consciousness: Awake Patient Behavior: Suspicious Mood Description: Calm Affect Description: Constricted Ability to Follow Directions: Fair Speech Pattern: Clear Hallucinations: Auditory Delusions: Paranoid Ideation Thought Process: Distracted Thought Content: positive for Circumstantial Judgement: Fair Judgement and Insight: Improved cooperation Diagnostics Vital Signs (24Hr): Vital Signs - 24 hr 02/07/22 06:00 02/07/22 18:00 Temperature 96.6 F L 97.1 F Pulse Rate 84 99 Respiratory Rate 16 14 Blood Pressure 120/58 L 107/52 L Pulse Oximetry 99 97 Oxygen Delivery Method Room Air Room Air BMI result Body Mass Index 26.2 Labs Results: 01/22/22 08:07 01/22/22 08:07 Imaging Radiology Impressions: ITS Impressions Head CT 10/08/21 15:16 IMPRESSION: No acute intracranial pathology. Head CT 10/09/21 13:54 IMPRESSION: No acute intracranial pathology. Pelvic/Transvag US 10/13/21 09:24 IMPRESSION: Abnormally thickened endometrium for a postmenopausal patient measuring 0.9 cm. 3 x 2.7 x 3.7 cm mass in the posterior cervix. This may represent a fibroid. Slightly thickened trabeculated bladder wall. Head CT 10/20/21 08:18 IMPRESSION: No acute intracranial pathology. This critical result was discussed with Dr. Chu at 8:30 hours on 10/20/2021. It was ascertained that the content and urgency of the report was understood at the time of direct communication. Head CT 11/20/21 19:29 IMPRESSION: No acute intracranial pathology. Medications Medications Current Medications Acetaminophen (Acetaminophen 325 Mg Tablet) 650 mg PO Q6H PRN PRN Reason: Headache/Pain Mild Scale (1-3) Last Admin: 02/06/22 23:28 Dose: 650 mg Al Hydroxide/Mg Hydroxide (Magnesium Hydrox/Alum Hydrox 30 Ml Oral.Susp) 30 ml PO Q6H PRN PRN Reason: Heartburn/Nausea Apixaban (Apixaban 5 Mg Tablet) 5 mg PO BID [facility] Last Admin: 02/07/22 20:02 Dose: 5 mg Benztropine Mesylate (Benztropine Mesylate 1 Mg Tablet) 1 mg PO BID [facility] Last Admin: 02/07/22 20:02 Dose: 1 mg Bisacodyl (Bisacodyl 10 Mg Supp.Rect) 10 mg DE DAILY PRN PRN Reason: Constipation Last Admin: 12/16/21 04:01 Dose: 10 mg Clotrimazole (Clotrimazole 1 % Cream 15 Gm Tube) 1 appl TOPICAL BID [facility]; Protocol Last Admin: 02/07/22 20:03 Dose: 1 appl Clozapine (Clozapine 100 Mg Tablet) 100 mg PO DAILY [facility] Last Admin: 02/07/22 08:43 Dose: 100 mg Clozapine (Clozapine 100 Mg Tablet) 300 mg PO BEDTIME [facility] Last Admin: 02/07/22 20:03 Dose: 300 mg Clozapine (Clozapine 100 Mg Tablet) 100 mg PO DAILY@1700 [facility] Last Admin: 02/07/22 18:06 Dose: 100 mg Desmopressin Acetate (Desmopressin Acetate 0.2 Mg Tablet) 0.2 mg PO BID [facility] Last Admin: 02/07/22 20:03 Dose: 0.2 mg Docusate Sodium (Docusate Sodium 100 Mg Capsule) 100 mg PO BID [facility] Last Admin: 02/07/22 20:03 Dose: 100 mg Haloperidol (Haloperidol 5 Mg Tablet) 5 mg PO BID [facility] Last Admin: 02/07/22 20:03 Dose: 5 mg Hydrochlorothiazide (Hydrochlorothiazide 25 Mg Tablet) 25 mg PO DAILY [facility]; Protocol Last Admin: 02/07/22 08:43 Dose: 25 mg Hydroxyzine HCl (Hydroxyzine Hcl 25 Mg Tablet) 25 mg PO BEDTIME PRN PRN Reason: Anxiety Last Admin: 02/03/22 21:26 Dose: 25 mg Hydroxyzine HCl (Hydroxyzine Hcl 25 Mg Tablet) 25 mg PO BID PRN PRN Reason: Anxiety Last Admin: 01/16/22 15:10 Dose: 25 mg [place] Carbonate ([place] Carbonate 300 Mg Capsule) 300 mg PO BID [facility] Last Admin: 02/07/22 20:03 Dose: 300 mg Loperamide HCl (Loperamide Hcl 2 Mg Capsule) 4 mg PO Q4H PRN PRN Reason: Diarrhea Last Admin: 11/01/21 17:04 Dose: 4 mg Magnesium Hydroxide (Milk Of Magnesia 30 Ml Oral.Susp) 30 ml PO DAILY PRN PRN Reason: Constipation Last Admin: 01/30/22 22:11 Dose: 30 ml Mirtazapine (Mirtazapine 15 Mg Tablet) 15 mg PO BEDTIME [facility] Last Admin: 02/07/22 20:04 Dose: 15 mg Olanzapine (Olanzapine 10 Mg Vial) 5 mg IM STAT PRN PRN Reason: refusal of Clozaril PO Polyethylene Glycol (Polyethylene Glycol 3350 17 Gm Powd.Pack) 17 gm PO BID [facility] Last Admin: 02/07/22 20:04 Dose: 17 gm Potassium Chloride (Potassium Chloride Er 10 Meq Capsule.Er) 40 meq PO BID [facility] Last Admin: 02/07/22 20:04 Dose: 40 meq Senna (Sennosides 8.6 Mg Tablet) 8.6 mg PO BEDTIME [facility] Last Admin: 02/07/22 20:04 Dose: 8.6 mg Trazodone HCl (Trazodone Hcl 50 Mg Tablet) 50 mg PO BEDTIME PRN PRN Reason: Insomnia Last Admin: 02/03/22 21:27 Dose: 50 mg Trolamine Salicylate/Aloe Vera (Trolamine Salicylate 10%/Aloe Cream 35.4 Gm) 1 appl TOPICAL TID PRN PRN Reason: neck pain Last Admin: 02/02/22 22:34 Dose: 1 appl Allergies Allergies Allergy/AdvReac Type Severity Reaction Status Date / Time No Known Allergies Allergy Unverified 05/01/20 19:42 [No Known Allergies*] Assessment & Plan Assessment & Plan (1) Schizophrenia, paranoid, chronic with acute exacerbation: Status: Acute Code(s): F20.0 - Paranoid schizophrenia Assessment and Plan: cont clozapine tx plan monitor for oversedation 01/30/2022: No changes 01/31/2022: No changes (2) Hypertension: Status: Acute Code(s): I10 - Essential (primary) hypertension (3) Dementia: Status: Acute Code(s): F03.90 - Unspecified dementia without behavioral disturbance Plan Elderly female with a long history of schizoaffective disorder bipolar type who was admitted into the facility for exacerbation of psychosis and mood lability. The patient is on Clozaril and apparently she has not been fully compliant with treatment. 11/21 slipped, hit head on 4/8, head CT reviewed and unremarkable. We did a MOCA and she is technically demented at this moment Plan 1. The patient at this moment is on 3 psychotics, Clozaril , Haldol and Invega Sustenna. 2. Discontinue Haldol 5 mg IM if the patient refuses Clozaril and replace with Zyprexa. 3. Lower total Clozaril to 500 mg a day. We will not continue with Invega Sustenna sings there is no improvement with 3 antipsychotics. We will keep her on Clozaril and Haldol p.o.. Current note for 02/06/2022 Patient seen in psychiatric follow-up. Patient generally calmer more appropriate than when seen previously. More cooperative with treatment asking about discharge planning appropriately continue plan of care continue discharge plan I spent minutes with the patient and/or on the patient floor today, greater than?50% of which was spent counseling/coordinating care. Reason for contiued inpatient stay Substantial Risk for: harm to self and rapid decompensation
--- NOTE | 2022-02-07 21:16 | P.PNPSI_ITS ---
Subjective Subjective Date of Service: 02/07/22 Reason For Visit: psychotic disorder Subjective Notes: Conditional Voluntary Interim History: Patient overall has generally been worst stable less psychotically agitated cooperative. Denies SI has been taking her medication regularly. Patient looking forward to discharge. Mental Status Exam Mental Status Exam Patient Appearance: Well Grooomed Patient Orientation: Person Level of Consciousness: Awake Patient Behavior: Passive and Suspicious Mood Description: Calm Affect Description: Constricted and Apprehensive Ability to Follow Directions: Fair Speech Pattern: Clear Hallucinations: Auditory Delusions: Paranoid Ideation Thought Process: Distracted Thought Content: positive for Circumstantial Judgement: Fair Judgement and Insight: Improved cooperation less irritability less preoccupation with intrusive voices Diagnostics Vital Signs (24Hr): Vital Signs - 24 hr 02/07/22 06:00 02/07/22 18:00 Temperature 96.6 F L 97.1 F Pulse Rate 84 99 Respiratory Rate 16 14 Blood Pressure 120/58 L 107/52 L Pulse Oximetry 99 97 Oxygen Delivery Method Room Air Room Air BMI result Body Mass Index 26.2 Labs Results: 01/22/22 08:07 01/22/22 08:07 Imaging Radiology Impressions: ITS Impressions Head CT 10/08/21 15:16 IMPRESSION: No acute intracranial pathology. Head CT 10/09/21 13:54 IMPRESSION: No acute intracranial pathology. Pelvic/Transvag US 10/13/21 09:24 IMPRESSION: Abnormally thickened endometrium for a postmenopausal patient measuring 0.9 cm. 3 x 2.7 x 3.7 cm mass in the posterior cervix. This may represent a fibroid. Slightly thickened trabeculated bladder wall. Head CT 10/20/21 08:18 IMPRESSION: No acute intracranial pathology. This critical result was discussed with Dr. Chu at 8:30 hours on 10/20/2021. It was ascertained that the content and urgency of the report was understood at the time of direct communication. Head CT 11/20/21 19:29 IMPRESSION: No acute intracranial pathology. Medications Medications Current Medications Acetaminophen (Acetaminophen 325 Mg Tablet) 650 mg PO Q6H PRN PRN Reason: Headache/Pain Mild Scale (1-3) Last Admin: 02/06/22 23:28 Dose: 650 mg Al Hydroxide/Mg Hydroxide (Magnesium Hydrox/Alum Hydrox 30 Ml Oral.Susp) 30 ml PO Q6H PRN PRN Reason: Heartburn/Nausea Apixaban (Apixaban 5 Mg Tablet) 5 mg PO BID [facility] Last Admin: 02/07/22 20:02 Dose: 5 mg Benztropine Mesylate (Benztropine Mesylate 1 Mg Tablet) 1 mg PO BID [facility] Last Admin: 02/07/22 20:02 Dose: 1 mg Bisacodyl (Bisacodyl 10 Mg Supp.Rect) 10 mg [place] DAILY PRN PRN Reason: Constipation Last Admin: 12/16/21 04:01 Dose: 10 mg Clotrimazole (Clotrimazole 1 % Cream 15 Gm Tube) 1 appl TOPICAL BID [facility]; Protocol Last Admin: 02/07/22 20:03 Dose: 1 appl Clozapine (Clozapine 100 Mg Tablet) 100 mg PO DAILY [facility] Last Admin: 02/07/22 08:43 Dose: 100 mg Clozapine (Clozapine 100 Mg Tablet) 300 mg PO BEDTIME [facility]ZY Last Admin: 02/07/22 20:03 Dose: 300 mg Clozapine (Clozapine 100 Mg Tablet) 100 mg PO DAILY@1700 [facility] Last Admin: 02/07/22 18:06 Dose: 100 mg Desmopressin Acetate (Desmopressin Acetate 0.2 Mg Tablet) 0.2 mg PO BID [facility] Last Admin: 02/07/22 20:03 Dose: 0.2 mg Docusate Sodium (Docusate Sodium 100 Mg Capsule) 100 mg PO BID [facility] Last Admin: 02/07/22 20:03 Dose: 100 mg Haloperidol (Haloperidol 5 Mg Tablet) 5 mg PO BID [facility] Last Admin: 02/07/22 20:03 Dose: 5 mg Hydrochlorothiazide (Hydrochlorothiazide 25 Mg Tablet) 25 mg PO DAILY MITZY; Pro tocol Last Admin: 02/07/22 08:43 Dose: 25 mg Hydroxyzine HCl (Hydroxyzine Hcl 25 Mg Tablet) 25 mg PO BEDTIME PRN PRN Reason: Anxiety Last Admin: 02/03/22 21:26 Dose: 25 mg Hydroxyzine HCl (Hydroxyzine Hcl 25 Mg Tablet) 25 mg PO BID PRN PRN Reason: Anxiety Last Admin: 01/16/22 15:10 Dose: 25 mg [place] Carbonate ([place] Carbonate 300 Mg Capsule) 300 mg PO BID [facility] Last Admin: 02/07/22 20:03 Dose: 300 mg Loperamide HCl (Loperamide Hcl 2 Mg Capsule) 4 mg PO Q4H PRN PRN Reason: Diarrhea Last Admin: 11/01/21 17:04 Dose: 4 mg Magnesium Hydroxide (Milk Of Magnesia 30 Ml Oral.Susp) 30 ml PO DAILY PRN PRN Reason: Constipation Last Admin: 01/30/22 22:11 Dose: 30 ml Mirtazapine (Mirtazapine 15 Mg Tablet) 15 mg PO BEDTIME [facility]ZY Last Admin: 02/07/22 20:04 Dose: 15 mg Olanzapine (Olanzapine 10 Mg Vial) 5 mg IM STAT PRN PRN Reason: refusal of Clozaril PO Polyethylene Glycol (Polyethylene Glycol 3350 17 Gm Powd.Pack) 17 gm PO BID [facility] Last Admin: 02/07/22 20:04 Dose: 17 gm Potassium Chloride (Potassium Chloride Er 10 Meq Capsule.Er) 40 meq PO BID [facility]ZY Last Admin: 02/07/22 20:04 Dose: 40 meq Senna (Sennosides 8.6 Mg Tablet) 8.6 mg PO BEDTIME MITZY Last Admin: 02/07/22 20:04 Dose: 8.6 mg Trazodone HCl (Trazodone Hcl 50 Mg Tablet) 50 mg PO BEDTIME PRN PRN Reason: Insomnia Last Admin: 02/03/22 21:27 Dose: 50 mg Trolamine Salicylate/Aloe Vera (Trolamine Salicylate 10%/Aloe Cream 35.4 Gm) 1 appl TOPICAL TID PRN PRN Reason: neck pain Last Admin: 02/02/22 22:34 Dose: 1 appl Allergies Allergies Allergy/AdvReac Type Severity Reaction Status Date / Time No Known Allergies Allergy Unverified 05/01/20 19:42 [No Known Allergies*] Assessment & Plan Assessment & Plan (1) Schizophrenia, paranoid, chronic with acute exacerbation: Status: Acute Code(s): F20.0 - Paranoid schizophrenia Assessment and Plan: cont clozapine tx plan monitor for oversedation 01/30/2022: No changes 01/31/2022: No changes (2) Hypertension: Status: Acute Code(s): I10 - Essential (primary) hypertension (3) Dementia: Status: Acute Code(s): F03.90 - Unspecified dementia without behavioral disturbance Plan Elderly female with a long history of schizoaffective disorder bipolar type who was admitted into the facility for exacerbation of psychosis and mood lability. The patient is on Clozaril and apparently she has not been fully compliant with treatment. 11/21 slipped, hit head on 11/20, head CT reviewed and unremarkable. We did a MOCA and she is technically demented at this moment Plan 1. The patient at this moment is on 3 psychotics, Clozaril , Haldol and Invega Sustenna. 2. Discontinue Haldol 5 mg IM if the patient refuses Clozaril and replace with Zyprexa. 3. Lower total Clozaril to 500 mg a day. We will not continue with Invega Sustenna sings there is no improvement with 3 antipsychotics. We will keep her on Clozaril and Haldol p.o.. Current note for 02/06/2022 Patient seen in psychiatric follow-up. Patient generally calmer more appropriate than when seen previously. More cooperative with treatment asking about discharge planning appropriately continue plan of care continue discharge plan Assessment and plan for 02/07/2022 Patient seen case reviewed treatment team. Patient much more stable pleasant when seen future oriented less psychotically preoccupied. Referral to [facility] patient reportedly has a bed for this week. Continue plan of care I spent minutes with the patient and/or on the patient floor today, greater than?50% of which was spent counseling/coordinating care. Reason for contiued inpatient stay Substantial Risk for: inability to function and rapid decompensation
[2022-02-08 06:00] VITALS: BP 106/56; PULSE 89; RESP 14; TEMP 36.1; O2SAT 95
[2022-02-08] MEDS: Apixaban 5 MG TABLET PO ×2 (09:53→20:05)
[2022-02-08] MEDS: cloZAPine 100 MG TABLET PO ×2 (09:53→16:45)
[2022-02-08] MEDS: polyethylene glycoL 3350 17 GM POWD.PACK PO ×2 (09:53→20:04)
[2022-02-08] MEDS: HaloperidoL 5 MG TABLET PO ×2 (09:53→20:06)
[2022-02-08] MEDS: Lithium Carbonate 300 MG CAPSULE PO ×2 (09:54→20:06)
[2022-02-08] MEDS: Docusate Sodium 100 MG CAPSULE PO ×2 (09:54→20:06)
[2022-02-08] MEDS: hydroCHLOROthiazide 25 MG TABLET PO (09:54)
[2022-02-08] MEDS: Benztropine Mesylate 1 MG TABLET PO ×2 (09:54→20:06)
[2022-02-08] MEDS: Desmopressin Acetate 0.2 MG TABLET PO ×2 (09:55→20:06)
--- NOTE | 2022-02-08 13:53 | P.PNPSI_ITS ---
Subjective Subjective Date of Service: 02/08/22 Reason For Visit: psychotic disorder Subjective Notes: Conditional Voluntary Interim History: The nursing staff reported that hte patient is responding less to AH, she feels slightly better. She wants to go back home . Waiting for placement. Mental Status Exam Mental Status Exam Patient Appearance: Well Grooomed Patient Orientation: Person Level of Consciousness: Awake Patient Behavior: Appropriate Mood Description: Calm Affect Description: Labile Patient Cognition Impaired: Yes Ability to Follow Directions: Good Speech Pattern: Clear Hallucinations: Auditory Delusions: Paranoid Ideation Thought Process: Illogical and Confusion Thought Content: positive for Circumstantial and positive for Preoccupation Judgement: Fair Diagnostics Vital Signs (24Hr): Vital Signs - 24 hr 02/07/22 18:00 02/08/22 06:00 Temperature 97.1 F 96.9 F Pulse Rate 99 89 Respiratory Rate 14 14 Blood Pressure 107/52 L 106/56 L Pulse Oximetry 97 95 Oxygen Delivery Method Room Air Room Air BMI result Body Mass Index 26.2 Labs Results: 01/22/22 08:07 01/22/22 08:07 Imaging Radiology Impressions: ITS Impressions Head CT 10/08/21 15:16 IMPRESSION: No acute intracranial pathology. Head CT 10/09/21 13:54 IMPRESSION: No acute intracranial pathology. Pelvic/Transvag US 10/13/21 09:24 IMPRESSION: Abnormally thickened endometrium for a postmenopausal patient measuring 0.9 cm. 3 x 2.7 x 3.7 cm mass in the posterior cervix. This may represent a fibroid. Slightly thickened trabeculated bladder wall. Head CT 10/20/21 08:18 IMPRESSION: No acute intracranial pathology. This critical result was discussed with Dr. Chu at 8:30 hours on 10/20/2021. It was ascertained that the content and urgency of the report was understood at the time of direct communication. Head CT 11/20/21 19:29 IMPRESSION: No acute intracranial pathology. Medications Medications Current Medications Acetaminophen (Acetaminophen 325 Mg Tablet) 650 mg PO Q6H PRN PRN Reason: Headache/Pain Mild Scale (1-3) Last Admin: 02/06/22 23:28 Dose: 650 mg Al Hydroxide/Mg Hydroxide (Magnesium Hydrox/Alum Hydrox 30 Ml Oral.Susp) 30 ml PO Q6H PRN PRN Reason: Heartburn/Nausea Apixaban (Apixaban 5 Mg Tablet) 5 mg PO BID [facility] Last Admin: 02/08/22 09:53 Dose: 5 mg Benztropine Mesylate (Benztropine Mesylate 1 Mg Tablet) 1 mg PO BID [facility] Last Admin: 02/08/22 09:54 Dose: 1 mg Bisacodyl (Bisacodyl 10 Mg Supp.Rect) 10 mg [place] DAILY PRN PRN Reason: Constipation Last Admin: 12/16/21 04:01 Dose: 10 mg Clotrimazole (Clotrimazole 1 % Cream 15 Gm Tube) 1 appl TOPICAL BID [facility]; Protocol Last Admin: 02/08/22 10:37 Dose: Not Given Clozapine (Clozapine 100 Mg Tablet) 100 mg PO DAILY [facility] Last Admin: 02/08/22 09:53 Dose: 100 mg Clozapine (Clozapine 100 Mg Tablet) 300 mg PO BEDTIME [facility] Last Admin: 02/07/22 20:03 Dose: 300 mg Clozapine (Clozapine 100 Mg Tablet) 100 mg PO DAILY@1700 [facility] Last Admin: 02/07/22 18:06 Dose: 100 mg Desmopressin Acetate (Desmopressin Acetate 0.2 Mg Tablet) 0.2 mg PO BID [facility] Last Admin: 02/08/22 09:55 Dose: 0.2 mg Docusate Sodium (Docusate Sodium 100 Mg Capsule) 100 mg PO BID [facility] Last Admin: 02/08/22 09:54 Dose: 100 mg Haloperidol (Haloperidol 5 Mg Tablet) 5 mg PO BID [facility] Last Admin: 02/08/22 09:53 Dose: 5 mg Hydrochlorothiazide (Hydrochlorothiazide 25 Mg Tablet) 25 mg PO DAILY [facility]; Protocol Last Admin: 02/08/22 09:54 Dose: 25 mg Hydroxyzine HCl (Hydroxyzine Hcl 25 Mg Tablet) 25 mg PO BEDTIME PRN PRN Reason: Anxiety Last Admin: 02/03/22 21:26 Dose: 25 mg Hydroxyzine HCl (Hydroxyzine Hcl 25 Mg Tablet) 25 mg PO BID PRN PRN Reason: Anxiety Last Admin: 01/16/22 15:10 Dose: 25 mg [place] Carbonate ([place] Carbonate 300 Mg Capsule) 300 mg PO BID [facility] Last Admin: 02/08/22 09:54 Dose: 300 mg Loperamide HCl (Loperamide Hcl 2 Mg Capsule) 4 mg PO Q4H PRN PRN Reason: Diarrhea Last Admin: 11/01/21 17:04 Dose: 4 mg Magnesium Hydroxide (Milk Of Magnesia 30 Ml Oral.Susp) 30 ml PO DAILY PRN PRN Reason: Constipation Last Admin: 01/30/22 22:11 Dose: 30 ml Mirtazapine (Mirtazapine 15 Mg Tablet) 15 mg PO BEDTIME [facility] Last Admin: 02/07/22 20:04 Dose: 15 mg Olanzapine (Olanzapine 10 Mg Vial) 5 mg IM STAT PRN PRN Reason: refusal of Clozaril PO Polyethylene Glycol (Polyethylene Glycol 3350 17 Gm Powd.Pack) 17 gm PO BID [facility] Last Admin: 02/08/22 09:53 Dose: 17 gm Potassium Chloride (Potassium Chloride Er 10 Meq Capsule.Er) 40 meq PO BID [facility] Last Admin: 02/08/22 09:53 Dose: 40 meq Senna (Sennosides 8.6 Mg Tablet) 8.6 mg PO BEDTIME [facility] Last Admin: 02/07/22 20:04 Dose: 8.6 mg Trazodone HCl (Trazodone Hcl 50 Mg Tablet) 50 mg PO BEDTIME PRN PRN Reason: Insomnia Last Admin: 02/03/22 21:27 Dose: 50 mg Trolamine Salicylate/Aloe Vera (Trolamine Salicylate 10%/Aloe Cream 35.4 Gm) 1 appl TOPICAL TID PRN PRN Reason: neck pain Last Admin: 02/02/22 22:34 Dose: 1 appl Allergies Allergies Allergy/AdvReac Type Severity Reaction Status Date / Time No Known Allergies Allergy Unverified 05/01/20 19:42 [No Known Allergies*] Assessment & Plan Assessment & Plan (1) Schizophrenia, paranoid, chronic with acute exacerbation: Status: Acute Code(s): F20.0 - Paranoid schizophrenia Assessment and Plan: cont clozapine tx plan monitor for oversedation 01/30/2022: No changes 01/31/2022: No changes (2) Hypertension: Status: Acute Code(s): I10 - Essential (primary) hypertension (3) Dementia: Status: Acute Code(s): F03.90 - Unspecified dementia without behavioral disturbance Plan Elderly female with a long history of schizoaffective disorder bipolar type who was admitted into the facility for exacerbation of psychosis and mood lability. The patient is on Clozaril and apparently she has not been fully comp liant with treatment. 11/21 slipped, hit head on 11/20, head CT reviewed and unremarkable. We did a MOCA and she is technically demented at this moment Plan 1. The patient at this moment is on 3 psychotics, Clozaril , Haldol and Invega Sustenna. 2. Discontinue Haldol 5 mg IM if the patient refuses Clozaril and replace with Zyprexa. 3. Lower total Clozaril to 500 mg a day. We will not continue with Invega Sustenna sings there is no improvement with 3 antipsychotics. We will keep her on Clozaril and Haldol p.o.. 4. Waiting for placement I spent ___20___ minutes with the patient and/or on the patient floor today, greater than?50% of which was spent counseling/coordinating care. Reason for contiued inpatient stay Substantial Risk for: inability to function, rapid decompensation and med/psych decompensation
[2022-02-08 18:00] VITALS: BP 110/80; PULSE 89; RESP 18; TEMP 36.3; O2SAT 99
[2022-02-08] MEDS: Clotrimazole 1 % Cream 15 GM TUBE 1 APPL TOPICAL (20:06)
[2022-02-08] MEDS: cloZAPine 100 MG TABLET 300 MG PO (20:06)
[2022-02-08] MEDS: Mirtazapine 15 MG TABLET PO (20:07)
[2022-02-08] MEDS: Sennosides 8.6 MG TABLET PO (20:07)
[2022-02-09 07:30] VITALS: BP 99/62; PULSE 84; RESP 16; TEMP 36.6; O2SAT 94
[2022-02-09] MEDS: HaloperidoL 5 MG TABLET PO (09:49)
[2022-02-09] MEDS: Docusate Sodium 100 MG CAPSULE PO (09:50)
[2022-02-09] MEDS: Lithium Carbonate 300 MG CAPSULE PO (09:50)
[2022-02-09] MEDS: Benztropine Mesylate 1 MG TABLET PO (09:50)
[2022-02-09] MEDS: cloZAPine 100 MG TABLET PO ×2 (09:50→16:11)
[2022-02-09] MEDS: Desmopressin Acetate 0.2 MG TABLET PO (09:50)
[2022-02-09] MEDS: Apixaban 5 MG TABLET PO (09:50)
[2022-02-09] MEDS: hydroCHLOROthiazide 25 MG TABLET PO (09:51)
[2022-02-09] MEDS: polyethylene glycoL 3350 17 GM POWD.PACK PO ×2 (09:51→22:05)
--- NOTE | 2022-02-09 16:13 | P.PNPSI_ITS ---
Subjective Subjective Date of Service: 02/09/22 Reason For Visit: psychotic disorder Subjective Notes: Conditional Voluntary Interim History: the nursing staff reported the patient has been main compliant with medication. She slept well. The social science instructor reported that [facility] [place] [facility] facility wants to take her but we are still waiting for a bed. On interview the patient denies new symptoms she has seen patient she wants to get out of this unit. No new symptoms Mental Status Exam Mental Status Exam Patient Appearance: Appropriate Patient Orientation: Person and Situation Level of Consciousness: Awake Patient Behavior: Guarded and Passive Mood Description: Calm Affect Description: Withdrawn Patient Cognition Impaired: Yes Ability to Follow Directions: Good Speech Pattern: Clear Hallucinations: Auditory Delusions: Paranoid Ideation Thought Process: Illogical and Distracted Thought Content: positive for [place] and positive for Circumstantial Judgement: Fair Diagnostics Vital Signs (24Hr): Vital Signs - 24 hr 02/08/22 18:00 02/09/22 07:30 Temperature 97.4 F 97.9 F Pulse Rate 89 84 Respiratory Rate 18 16 Blood Pressure 110/80 99/62 Pulse Oximetry 99 94 Oxygen Delivery Method Room Air Room Air BMI result Body Mass Index 26.2 Labs Results: 01/22/22 08:07 01/22/22 08:07 Imaging Radiology Impressions: ITS Impressions Head CT 10/08/21 15:16 IMPRESSION: No acute intracranial pathology. Head CT 10/09/21 13:54 IMPRESSION: No acute intracranial pathology. Pelvic/Transvag US 10/13/21 09:24 IMPRESSION: Abnormally thickened endometrium for a postmenopausal patient measuring 0.9 cm. 3 x 2.7 x 3.7 cm mass in the posterior cervix. This may represent a fibroid. Slightly thickened trabeculated bladder wall. Head CT 10/20/21 08:18 IMPRESSION: No acute intracranial pathology. This critical result was discussed with Dr. Chu at 8:30 hours on 10/20/2021. It was ascertained that the content and urgency of the report was understood at the time of direct communication. Head CT 11/20/21 19:29 IMPRESSION: No acute intracranial pathology. Medications Medications Current Medications Acetaminophen (Acetaminophen 325 Mg Tablet) 650 mg PO Q6H PRN PRN Reason: Headache/Pain Mild Scale (1-3) Last Admin: 02/06/22 23:28 Dose: 650 mg Al Hydroxide/Mg Hydroxide (Magnesium Hydrox/Alum Hydrox 30 Ml Oral.Susp) 30 ml PO Q6H PRN PRN Reason: Heartburn/Nausea Apixaban (Apixaban 5 Mg Tablet) 5 mg PO BID [facility] Last Admin: 02/09/22 09:50 Dose: 5 mg Benztropine Mesylate (Benztropine Mesylate 1 Mg Tablet) 1 mg PO BID [facility] Last Admin: 02/09/22 09:50 Dose: 1 mg Bisacodyl (Bisacodyl 10 Mg Supp.Rect) 10 mg [place] DAILY PRN PRN Reason: Constipation Last Admin: 12/16/21 04:01 Dose: 10 mg Clotrimazole (Clotrimazole 1 % Cream 15 Gm Tube) 1 appl TOPICAL BID [facility]; Protocol Last Admin: 02/09/22 13:44 Dose: Not Given Clozapine (Clozapine 100 Mg Tablet) 100 mg PO DAILY [facility] Last Admin: 02/09/22 09:50 Dose: 100 mg Clozapine (Clozapine 100 Mg Tablet) 300 mg PO BEDTIME [facility] Last Admin: 02/08/22 20:06 Dose: 300 mg Clozapine (Clozapine 100 Mg Tablet) 100 mg PO DAILY@1700 [facility] Last Admin: 02/08/22 16:45 Dose: 100 mg Desmopressin Acetate (Desmopressin Acetate 0.2 Mg Tablet) 0.2 mg PO BID [facility] Last Admin: 02/09/22 09:50 Dose: 0.2 mg Docusate Sodium (Docusate Sodium 100 Mg Capsule) 100 mg PO BID [facility] Last Admin: 02/09/22 09:50 Dose: 100 mg Haloperidol (Haloperidol 5 Mg Tablet) 5 mg PO BID [facility] Last Admin: 02/09/22 09:49 Dose: 5 mg Hydrochlorothiazide (Hydrochlorothiazide 25 Mg Tablet) 25 mg PO DAILY [facility]; Protocol Last Admin: 02/09/22 09:51 Dose: 25 mg Hydroxyzine HCl (Hydroxyzine Hcl 25 Mg Tablet) 25 mg PO BEDTIME PRN PRN Reason: Anxiety Last Admin: 02/03/22 21:26 Dose: 25 mg Hydroxyzine HCl (Hydroxyzine Hcl 25 Mg Tablet) 25 mg PO BID PRN PRN Reason: Anxiety Last Admin: 01/16/22 15:10 Dose: 25 mg [place] Carbonate ([place] Carbonate 300 Mg Capsule) 300 mg PO BID [facility] Last Admin: 02/09/22 09:50 Dose: 300 mg Loperamide HCl (Loperamide Hcl 2 Mg Capsule) 4 mg PO Q4H PRN PRN Reason: Diarrhea Last Admin: 11/01/21 17:04 Dose: 4 mg Magnesium Hydroxide (Milk Of Magnesia 30 Ml Oral.Susp) 30 ml PO DAILY PRN PRN Reason: Constipation Last Admin: 01/30/22 22:11 Dose: 30 ml Mirtazapine (Mirtazapine 15 Mg Tablet) 15 mg PO BEDTIME [facility] Last Admin: 02/08/22 20:07 Dose: 15 mg Olanzapine (Olanzapine 10 Mg Vial) 5 mg IM STAT PRN PRN Reason: refusal of Clozaril PO Polyethylene Glycol (Polyethylene Glycol 3350 17 Gm Powd.Pack) 17 gm PO BID [facility] Last Admin: 02/09/22 09:51 Dose: 17 gm Potassium Chloride (Potassium Chloride Er 10 Meq Capsule.Er) 40 meq PO BID [facility] Last Admin: 02/09/22 09:56 Dose: Not Given Senna (Sennosides 8.6 Mg Tablet) 8.6 mg PO BEDTIME [facility] Last Admin: 02/08/22 20:07 Dose: 8.6 mg Trazodone HCl (Trazodone Hcl 50 Mg Tablet) 50 mg PO BEDTIME PRN PRN Reason: Insomnia Last Admin: 02/03/22 21:27 Dose: 50 mg Trolamine Salicylate/Aloe Vera (Trolamine Salicylate 10%/Aloe Cream 35.4 Gm) 1 appl TOPICAL TID PRN PRN Reason: neck pain Last Admin: 02/02/22 22:34 Dose: 1 appl Allergies Allergies Allergy/AdvReac Type Severity Reaction Status Date / Time No Known Allergies Allergy Unverified 05/01/20 19:42 [No Known Allergies*] Assessment & Plan Assessment & Plan (1) Schizophrenia, paranoid, chronic with acute exacerbation: Status: Acute Code(s): F20.0 - Paranoid schizophrenia Assessment and Plan: cont clozapine tx plan monitor for oversedation 01/30/2022: No changes 01/31/2022: No changes (2) Hypertension: Status: Acute Code(s): I10 - Essential (primary) hypertension (3) Dementia: Status: Acute Code(s): F03.90 - Unspecified dementia without behavioral disturbance Plan Elderly female with a long history of schizoaffective disorder bipolar type who was admitted into the facility for exacerbation of psychosis and mood lability. The patient is on Clozaril and apparently she has not been fully compliant with treatment. 11/21 slipped, hit head on 11/20, head CT reviewed and unremarkable. We did a MOCA and she is technically demented at this moment Plan 1. The patient at this moment is on 3 psychotics, Clozaril , Haldol and Invega Sustenna. 2. Discontinue Haldol 5 mg IM if the patient refuses Clozaril and replace with Zyprexa. 3. Lower total Clozaril to 500 mg a day. We will not continue with Invega Sustenna sings there is no improvement with 3 antipsychotics. We will keep her on Clozaril and Haldol p.o.. 4. Waiting for placement I spent ___20___ minutes with the patient and/or on the patient floor today, greater than?50% of which was spent counseling/coordinating care. Reason for contiued inpatient stay Substantial Risk for: inability to function, rapid decompensation and med/psych decompensation
[2022-02-09 20:30] VITALS: BP 108/51; PULSE 86; RESP 18; TEMP 36.3; O2SAT 97
[2022-02-09] MEDS: Mirtazapine 15 MG TABLET PO (22:06)
[2022-02-09] MEDS: cloZAPine 100 MG TABLET 300 MG PO (22:06)
[2022-02-10] MEDS: HaloperidoL 5 MG TABLET PO ×3 (00:53→20:27)
[2022-02-10] MEDS: Apixaban 5 MG TABLET PO ×3 (00:53→20:28)
[2022-02-10] MEDS: traZODone HCL 50 MG TABLET PO (00:53)
[2022-02-10] MEDS: Desmopressin Acetate 0.2 MG TABLET PO ×3 (01:15→20:27)
[2022-02-10] MEDS: Benztropine Mesylate 1 MG TABLET PO ×3 (01:15→20:26)
[2022-02-10] MEDS: Acetaminophen 325 MG TABLET 650 MG PO (05:38)
[2022-02-10] MEDS: Lithium Carbonate 300 MG CAPSULE PO ×2 (10:47→20:26)
[2022-02-10] MEDS: cloZAPine 100 MG TABLET PO (10:47)
[2022-02-10] MEDS: hydroCHLOROthiazide 25 MG TABLET PO (10:48)
[2022-02-10] MEDS: Docusate Sodium 100 MG CAPSULE PO (10:48)
[2022-02-10] MEDS: polyethylene glycoL 3350 17 GM POWD.PACK PO (10:48)
[2022-02-10] MEDS: Clotrimazole 1 % Cream 15 GM TUBE 1 APPL TOPICAL (10:51)
[2022-02-10 11:15] VITALS: BP 98/53; PULSE 91; RESP 16; O2SAT 93
--- NOTE | 2022-02-10 15:12 | HO.PSYCHPN ---
Subjective Subjective Date of Service: 02/10/22 Reason For Visit: psychotic disorder Subjective Notes: Conditional Voluntary Mental Status Exam Mental Status Exam Patient Appearance: Appropriate Patient Orientation: Person and Situation Level of Consciousness: Awake Patient Behavior: Cooperative Mood Description: Constricted Affect Description: Labile Patient Cognition Impaired: Yes Ability to Follow Directions: Good Speech Pattern: Clear Memory Description: Intact Hallucinations: None Delusions: Not Present Thought Process: Distracted Thought Content: positive for Circumstantial Judgement: Fair Diagnostics Vital Signs (24Hr): Vital Signs - 24 hr 02/09/22 20:30 02/10/22 11:15 Temperature 97.4 F Pulse Rate 86 91 Respiratory Rate 18 16 Blood Pressure 108/51 L 98/53 L Pulse Oximetry 97 93 Oxygen Delivery Method Room Air Room Air BMI result Body Mass Index 26.2 Labs Results: 01/22/22 08:07 01/22/22 08:07 Imaging Radiology Impressions: ITS Impressions Head CT 10/08/21 15:16 IMPRESSION: No acute intracranial pathology. Head CT 10/09/21 13:54 IMPRESSION: No acute intracranial pathology. Pelvic/Transvag US 10/13/21 09:24 IMPRESSION: Abnormally thickened endometrium for a postmenopausal patient measuring 0.9 cm. 3 x 2.7 x 3.7 cm mass in the posterior cervix. This may represent a fibroid. Slightly thickened trabeculated bladder wall. Head CT 10/20/21 08:18 IMPRESSION: No acute intracranial pathology. This critical result was discussed with Dr. Chu at 8:30 hours on 10/20/2021. It was ascertained that the content and urgency of the report was understood at the time of direct communication. Head CT 11/20/21 19:29 IMPRESSION: No acute intracranial pathology. Medications Medications Current Medications Acetaminophen (Acetaminophen 325 Mg Tablet) 650 mg PO Q6H PRN PRN Reason: Headache/Pain Mild Scale (1-3) Last Admin: 02/10/22 05:38 Dose: 650 mg Al Hydroxide/Mg Hydroxide (Magnesium Hydrox/Alum Hydrox 30 Ml Oral.Susp) 30 ml PO Q6H PRN PRN Reason: Heartburn/Nausea Apixaban (Apixaban 5 Mg Tablet) 5 mg PO BID [facility] Last Admin: 02/10/22 10:47 Dose: 5 mg Benztropine Mesylate (Benztropine Mesylate 1 Mg Tablet) 1 mg PO BID [facility] Last Admin: 02/10/22 10:47 Dose: 1 mg Bisacodyl (Bisacodyl 10 Mg Supp.Rect) 10 mg [place] DAILY PRN PRN Reason: Constipation Last Admin: 12/16/21 04:01 Dose: 10 mg Clotrimazole (Clotrimazole 1 % Cream 15 Gm Tube) 1 appl TOPICAL BID [facility]; Protocol Last Admin: 02/10/22 10:51 Dose: 1 appl Clozapine (Clozapine 100 Mg Tablet) 100 mg PO DAILY [facility] Last Admin: 02/10/22 10:47 Dose: 100 mg Clozapine (Clozapine 100 Mg Tablet) 300 mg PO BEDTIME [facility] Last Admin: 02/09/22 22:06 Dose: 300 mg Clozapine (Clozapine 100 Mg Tablet) 100 mg PO DAILY@1700 [facility] Last Admin: 02/09/22 16:11 Dose: 100 mg Desmopressin Acetate (Desmopressin Acetate 0.2 Mg Tablet) 0.2 mg PO BID [facility] Last Admin: 02/10/22 10:48 Dose: 0.2 mg Docusate Sodium (Docusate Sodium 100 Mg Capsule) 100 mg PO BID [facility] Last Admin: 02/10/22 10:48 Dose: 100 mg Haloperidol (Haloperidol 5 Mg Tablet) 5 mg PO BID [facility] Last Admin: 02/10/22 10:47 Dose: 5 mg Hydrochlorothiazide (Hydrochlorothiazide 25 Mg Tablet) 25 mg PO DAILY [facility]; Protocol Last Admin: 02/10/22 10:48 Dose: 25 mg Hydroxyzine HCl (Hydroxyzine Hcl 25 Mg Tablet) 25 mg PO BEDTIME PRN PRN Reason: Anxiety Last Admin: 02/03/22 21:26 Dose: 25 mg Hydroxyzine HCl (Hydroxyzine Hcl 25 Mg Tablet) 25 mg PO BID PRN PRN Reason: Anxiety Last Admin: 01/16/22 15:10 Dose: 25 mg [place]ie Carbonate ([place]ie Carbonate 300 Mg Capsule) 300 mg PO BID [facility] Last Admin: 02/10/22 10:47 Dose: 300 mg Loperamide HCl (Loperamide Hcl 2 Mg Capsule) 4 mg PO Q4H PRN PRN Reason: Diarrhea Last Admin: 11/01/21 17:04 Dose: 4 mg Magnesium Hydroxide (Milk Of Magnesia 30 Ml Oral.Susp) 30 ml PO DAILY PRN PRN Reason: Constipation Last Admin: 01/30/22 22:11 Dose: 30 ml Mirtazapine (Mirtazapine 15 Mg Tablet) 15 mg PO BEDTIME [facility] Last Admin: 02/09/22 22:06 Dose: 15 mg Olanzapine (Olanzapine 10 Mg Vial) 5 mg IM STAT PRN PRN Reason: refusal of Clozaril PO Polyethylene Glycol (Polyethylene Glycol 3350 17 Gm Powd.Pack) 17 gm PO BID [facility] Last Admin: 02/10/22 10:48 Dose: 17 gm Potassium Chloride (Potassium Chloride Er 10 Meq Capsule.Er) 40 meq PO BID [facility] Last Admin: 02/10/22 11:24 Dose: Not Given Senna (Sennosides 8.6 Mg Tablet) 8.6 mg PO BEDTIME [facility] Last Admin: 02/09/22 21:00 Dose: Not Given Trazodone HCl (Trazodone Hcl 50 Mg Tablet) 50 mg PO BEDTIME PRN PRN Reason: Insomnia Last Admin: 02/10/22 00:53 Dose: 50 mg Trolamine Salicylate/Aloe Vera (Trolamine Salicylate 10%/Aloe Cream 35.4 Gm) 1 appl TOPICAL TID PRN PRN Reason: neck pain Last Admin: 02/02/22 22:34 Dose: 1 appl Allergies Allergies Allergy/AdvReac Type Severity Reaction Status Date / Time No Known Allergies Allergy Unverified 05/01/20 19:42 [No Known Allergies*] Assessment & Plan Assessment & Plan (1) Schizophrenia, paranoid, chronic with acute exacerbation: Status: Acute Code(s): F20.0 - Paranoid schizophrenia Assessment and Plan: cont clozapine tx plan monitor for oversedation 01/30/2022: No changes 01/31/2022: No changes (2) Hypertension: Status: Acute Code(s): I10 - Essential (primary) hypertension (3) Dementia: Status: Acute Code(s): F03.90 - Unspecified dementia without behavioral disturbance Plan Elderly female with a long history of schizoaffective disorder bipolar type who was admitted into the facility for exacerbation of psychosis and mood lability. The patient is on Clozaril and apparently she has not been fully compliant with treatment. 11/21 slipped, hit head on 11/20, head CT reviewed and unremarkable. We did a MOCA and she is technically demented at this moment Plan 1. The patient at this moment is on 3 psychotics, Clozaril , Haldol and Invega Sustenna. 2. Discontinue Haldol 5 mg IM if the patient refuses Clozaril and replace with Zyprexa. 3. Lower total Clozaril to 500 mg a day. We will not continue with Invega Sustenna sings there is no improvement with 3 antipsychotics. We will keep her on Clozaril and Haldol p.o.. 4. Waiting for placement I spent __20____ minutes with the patient and/or on the patient floor today, greater than?50% of which was spent counseling/coordinating care. Reason for contiued inpatient stay Substantial Risk for: inability to function, rapid decompensation and med/psych decompensation
[2022-02-10 18:00] VITALS: BP 102/56; PULSE 91; RESP 12; TEMP 36.2; O2SAT 97
[2022-02-10] MEDS: OLANZapine 10 MG VIAL 5 MG IM (18:05)
--- NOTE | 2022-02-10 18:15 | PC.NURSE ---
Patient refused Clozaril 100mg po at 1700. IM olanzapine given 5 mg L deltoid.
[2022-02-10] MEDS: cloZAPine 100 MG TABLET 300 MG PO (20:25)
[2022-02-10] MEDS: Mirtazapine 15 MG TABLET PO (20:26)
[2022-02-11 08:47] LABS: Estimated Average Glucose 85 mg/dL; Hemoglobin A1c % 4.6 %
[2022-02-11 09:09] LABS: Lithium 0.71 mmol/L (0.60-1.20)
[2022-02-11 09:29] LABS: Alanine Aminotransferase 12 U/L (0-31); Albumin Level 4.1 g/dL (3.5-5.0); Alkaline Phosphatase 181 U/L (39-117); Anion Gap 14 (12-20); Aspartate Amino Transferase 14 U/L (5-31); Bilirubin Direct < 0.2 mg/dL (0.0-0.5); Bilirubin Total 0.3 mg/dL (0.0-1.0); Blood Urea Nitrogen 17 mg/dL (9-16); Calcium 10.7 mg/dL (8.4-10.2); Carbon Dioxide 23 mmol/L (22-29); Chloride 108 mmol/L (96-108); Creatinine Clr Calc Pharmacy 58.1; Estimated Glomerular Filt Rate > 60; Glucose Random 102 mg/dL (60-115); Sodium 141 mmol/L (135-145); Total Protein 6.5 g/dL (6.5-8.0)
[2022-02-11] MEDS: cloZAPine 100 MG TABLET PO ×2 (09:38→17:13)
[2022-02-11] MEDS: hydroCHLOROthiazide 25 MG TABLET PO (09:38)
[2022-02-11] MEDS: HaloperidoL 5 MG TABLET PO ×2 (09:38→20:32)
[2022-02-11] MEDS: Benztropine Mesylate 1 MG TABLET PO ×2 (09:39→20:32)
[2022-02-11] MEDS: Docusate Sodium 100 MG CAPSULE PO (09:39)
[2022-02-11] MEDS: Lithium Carbonate 300 MG CAPSULE PO ×2 (09:40→20:31)
[2022-02-11] MEDS: Magnesium Citrate 300 ML SOLUTION PO (15:10)
--- NOTE | 2022-02-11 16:18 | HO.PSYCHPN ---
Subjective Subjective Date of Service: 02/11/22 Reason For Visit: psychotic disorder Subjective Notes: Conditional Voluntary Interim History: the nursing staff reported that yesterday she needed to have the Haldol IM since she refused her clothes heard. She slept well last night. On interview we discussed at length the need of compliance and she agreed to continue taking medications. Mental Status Exam Mental Status Exam Patient Appearance: Appropriate Patient Orientation: Person and Situation Level of Consciousness: Awake Patient Behavior: Guarded, Passive and Suspicious Mood Description: Withdrawn Affect Description: Labile Patient Cognition Impaired: Yes Ability to Follow Directions: Good Speech Pattern: Clear Hallucinations: Auditory Delusions: Paranoid Ideation and Grandiose Thought Process: Distracted Thought Content: positive for Circumstantial Judgement: Poor Diagnostics Vital Signs (24Hr): Vital Signs - 24 hr 02/10/22 18:00 Temperature 97.2 F Pulse Rate 91 Respiratory Rate 12 Blood Pressure 102/56 L Pulse Oximetry 97 Oxygen Delivery Method Room Air BMI result Body Mass Index 26.2 Labs Results: 01/22/22 08:07 02/11/22 08:06 Labs: Laboratory Results - last 48 hr 02/11/22 02/11/22 02/11/22 08:06 08:06 08:06 Sodium 141 Potassium 4.0 Chloride 108 Carbon Dioxide 23 Anion Gap 14 BUN 17 H Creatinine 0.82 Estim Creat Clear Calc 58.1 Estimated GFR > 60 Random Glucose 102 Estimat Average Glucose 85 Hemoglobin A1c % 4.6 Calcium 10.7 H Total Bilirubin 0.3 Direct Bilirubin < 0.2 AST 14 ALT 12 Alkaline Phosphatase 181 H D Total Protein 6.5 Albumin 4.1 [place] 0.71 Imaging Radiology Impressions: ITS Impressions Head CT 10/08/21 15:16 IMPRESSION: No acute intracranial pathology. Head CT 10/09/21 13:54 IMPRESSION: No acute intracranial pathology. Pelvic/Transvag US 10/13/21 09:24 IMPRESSION: Abnormally thickened endometrium for a postmenopausal patient measuring 0.9 cm. 3 x 2.7 x 3.7 cm mass in the posterior cervix. This may represent a fibroid. Slightly thickened trabeculated bladder wall. Head CT 10/20/21 08:18 IMPRESSION: No acute intracranial pathology. This critical result was discussed with Dr. Chu at 8:30 hours on 10/20/2021. It was ascertained that the content and urgency of the report was understood at the time of direct communication. Head CT 11/20/21 19:29 IMPRESSION: No acute intracranial pathology. Medications Medications Current Medications Acetaminophen (Acetaminophen 325 Mg Tablet) 650 mg PO Q6H PRN PRN Reason: Headache/Pain Mild Scale (1-3) Last Admin: 02/10/22 05:38 Dose: 650 mg Al Hydroxide/Mg Hydroxide (Magnesium Hydrox/Alum Hydrox 30 Ml Oral.Susp) 30 ml PO Q6H PRN PRN Reason: Heartburn/Nausea Apixaban (Apixaban 5 Mg Tablet) 5 mg PO BID [facility] Last Admin: 02/11/22 12:17 Dose: Not Given Benztropine Mesylate (Benztropine Mesylate 1 Mg Tablet) 1 mg PO BID [facility] Last Admin: 02/11/22 09:39 Dose: 1 mg Bisacodyl (Bisacodyl 10 Mg Supp.Rect) 10 mg [place] DAILY PRN PRN Reason: Constipation Last Admin: 12/16/21 04:01 Dose: 10 mg Clotrimazole (Clotrimazole 1 % Cream 15 Gm Tube) 1 appl TOPICAL BID [facility]; Protocol Last Admin: 02/11/22 09:46 Dose: Not Given Clozapine (Clozapine 100 Mg Tablet) 100 mg PO DAILY [facility] Last Admin: 02/11/22 09:38 Dose: 100 mg Clozapine (Clozapine 100 Mg Tablet) 300 mg PO BEDTIME [facility] Last Admin: 02/10/22 20:25 Dose: 300 mg Clozapine (Clozapine 100 Mg Tablet) 100 mg PO DAILY@1700 [facility] Last Admin: 02/10/22 18:06 Dose: Not Given Desmopressin Acetate (Desmopressin Acetate 0.2 Mg Tablet) 0.2 mg PO BID [facility] Last Admin: 02/11/22 09:46 Dose: Not Given Docusate Sodium (Docusate Sodium 100 Mg Capsule) 100 mg PO BID [facility] Last Admin: 02/11/22 09:39 Dose: 100 mg Haloperidol (Haloperidol 5 Mg Tablet) 5 mg PO BID [facility] Last Admin: 02/11/22 09:38 Dose: 5 mg Hydrochlorothiazide (Hydrochlorothiazide 25 Mg Tablet) 25 mg PO DAILY [facility]; Protocol Last Admin: 02/11/22 09:38 Dose: 25 mg Hydroxyzine HCl (Hydroxyzine Hcl 25 Mg Tablet) 25 mg PO BEDTIME PRN PRN Reason: Anxiety Last Admin: 02/03/22 21:26 Dose: 25 mg Hydroxyzine HCl (Hydroxyzine Hcl 25 Mg Tablet) 25 mg PO BID PRN PRN Reason: Anxiety Last Admin: 01/16/22 15:10 Dose: 25 mg [place] Carbonate ([place] Carbonate 300 Mg Capsule) 300 mg PO BID [facility] Last Admin: 02/11/22 09:40 Dose: 300 mg Loperamide HCl (Loperamide Hcl 2 Mg Capsule) 4 mg PO Q4H PRN PRN Reason: Diarrhea Last Admin: 11/01/21 17:04 Dose: 4 mg Magnesium Hydroxide (Milk Of Magnesia 30 Ml Oral.Susp) 30 ml PO DAILY PRN PRN Reason: Constipation Last Admin: 01/30/22 22:11 Dose: 30 ml Mirtazapine (Mirtazapine 15 Mg Tablet) 15 mg PO BEDTIME [facility] Last Admin: 02/10/22 20:26 Dose: 15 mg Olanzapine (Olanzapine 10 Mg Vial) 5 mg IM STAT PRN PRN Reason: refusal of Clozaril PO Last Admin: 02/10/22 18:05 Dose: 5 mg Polyethylene Glycol (Polyethylene Glycol 3350 17 Gm Powd.Pack) 17 gm PO BID [facility] Last Admin: 02/11/22 09:46 Dose: Not Given Potassium Chloride (Potassium Chloride Er 10 Meq Capsule.Er) 40 meq PO BID [facility] Last Admin: 02/11/22 09:46 Dose: Not Given Senna (Sennosides 8.6 Mg Tablet) 8.6 mg PO BEDTIME [facility] Last Admin: 02/10/22 20:28 Dose: Not Given Trazodone HCl (Trazodone Hcl 50 Mg Tablet) 50 mg PO BEDTIME PRN PRN Reason: Insomnia Last Admin: 02/10/22 00:53 Dose: 50 mg Trolamine Salicylate/Aloe Vera (Trolamine Salicylate 10%/Aloe Cream 35.4 Gm) 1 appl TOPICAL TID PRN PRN Reason: neck pain Last Admin: 02/02/22 22:34 Dose: 1 appl Allergies Allergies Allergy/AdvReac Type Severity Reaction Status Date / Time No Known Allergies Allergy Unverified 05/01/20 19:42 [No Known Allergies*] Assessment & Plan Assessment & Plan (1) Schizophrenia, paranoid, chronic with acute exacerbation: Status: Acute Code(s): F20.0 - Paranoid schizophrenia (2) Hypertension: Status: Acute Code(s): I10 - Essential (primary) hypertension (3) Dementia: Status: Acute Code(s): F03.90 - Unspecified dementia without behavioral disturbance Plan Elderly female with a long history of schizoaffective disorder bipolar type who was admitted into the facility for exacerbation of psychosis and mood lability. The patient is on Clozaril and apparently she has not been fully compliant with treatment. 11/21 slipped, hit head on 11/20, head CT reviewed and unremarkable. We did a MOCA and she is technically demented at this moment Plan 1. The patient at this moment is on 3 psychotics, Clozaril , Haldol and Invega Sustenna. 2. Discontinue Haldol 5 mg IM if the patient refuses Clozaril and replace with Zyprexa. 3. Lower total Clozaril to 500 mg a day. We will not continue with Invega Sustenna sings there is no improvement with 3 antipsychotics. We will keep her on Clozaril and Haldol p.o.. 4. Waiting for placement I spent ___20___ minutes with the patient and/or on the patient floor today, greater than?50% of which was spent counseling/coordinating care. Reason for contiued inpatient stay Substantial Risk for: inability to function, rapid decompensation and med/psych decompensation
[2022-02-11 18:00] VITALS: BP 140/65; PULSE 86; RESP 16; TEMP 36.3; O2SAT 99
[2022-02-11] MEDS: cloZAPine 100 MG TABLET 300 MG PO (20:30)
[2022-02-11] MEDS: Mirtazapine 15 MG TABLET PO (20:30)
[2022-02-11] MEDS: Apixaban 5 MG TABLET PO (20:31)
[2022-02-11] MEDS: Desmopressin Acetate 0.2 MG TABLET PO (20:32)
[2022-02-11] MEDS: traZODone HCL 50 MG TABLET PO (22:09)
[2022-02-12 06:00] VITALS: BP 107/56; PULSE 83; RESP 15; TEMP 36.6; O2SAT 93
[2022-02-12 07:53] LABS: Neutrophils Absolute Auto 4.6 x10*3/uL (2.0-8.3); WBCANC 6.6 X10*3/uL
[2022-02-12] MEDS: Desmopressin Acetate 0.2 MG TABLET PO ×2 (10:25→21:20)
[2022-02-12] MEDS: hydroCHLOROthiazide 25 MG TABLET PO (10:25)
[2022-02-12] MEDS: Lithium Carbonate 300 MG CAPSULE PO ×2 (10:26→21:20)
[2022-02-12] MEDS: cloZAPine 100 MG TABLET PO ×2 (10:26→16:56)
[2022-02-12] MEDS: Benztropine Mesylate 1 MG TABLET PO (10:26)
[2022-02-12] MEDS: HaloperidoL 5 MG TABLET PO ×2 (10:26→21:20)
[2022-02-12] MEDS: polyethylene glycoL 3350 17 GM POWD.PACK PO ×2 (10:29→21:19)
--- NOTE | 2022-02-12 14:00 | P.PNPSI_ITS ---
Subjective Subjective Date of Service: 02/12/22 Reason For Visit: psychotic disorder Subjective Notes: Conditional Voluntary Interim History: The nursing staff reported the patient has been compliant with treatment, she stated that she is doing fine but she wants to find placement as soon as possible. Weeks plane again that we have to wait. The director social reported they have called the nursing facility and they are still evaluating her case. On interview the patient denies new symptoms Mental Status Exam Mental Status Exam Patient Appearance: Well Grooomed Patient Orientation: Person and Situation Level of Consciousness: Awake Patient Behavior: Cooperative Mood Description: Withdrawn Affect Description: Labile Patient Cognition Impaired: Yes Speech Pattern: Clear Hallucinations: Auditory Delusions: Paranoid Ideation Thought Process: Illogical and Slowed Thinking Thought Content: positive for [place] and positive for Circumstantial Judgement: Fair Diagnostics Vital Signs (24Hr): Vital Signs - 24 hr 02/11/22 18:00 02/12/22 06:00 Temperature 97.4 F 98 F Pulse Rate 86 83 Respiratory Rate 16 15 Blood Pressure 140/65 H 107/56 L Pulse Oximetry 99 93 Oxygen Delivery Method Room Air Room Air BMI result Body Mass Index 26.2 Labs Results: 01/22/22 08:07 02/11/22 08:06 Labs: Laboratory Results - last 48 hr 02/11/22 02/11/22 02/11/22 08:06 08:06 08:06 Absolute Neuts (auto) Sodium 141 Potassium 4.0 Chloride 108 Carbon Dioxide 23 Anion Gap 14 BUN 17 H Creatinine 0.82 Estim Creat Clear Calc 58.1 Estimated GFR > 60 Random Glucose 102 Estimat Average Glucose 85 Hemoglobin A1c % 4.6 Calcium 10.7 H Total Bilirubin 0.3 Direct Bilirubin < 0.2 AST 14 ALT 12 Alkaline Phosphatase 181 H D Total Protein 6.5 Albumin 4.1 [place] 0.71 02/12/22 07:46 Absolute Neuts (auto) 4.6 Sodium Potassium Chloride Carbon Dioxide Anion Gap BUN Creatinine Estim Creat Clear Calc Estimated GFR Random Glucose Estimat Average Glucose Hemoglobin A1c % Calcium Total Bilirubin Direct Bilirubin AST ALT Alkaline Phosphatase Total Protein Albumin [place] Imaging Radiology Impressions: ITS Impressions Head CT 10/08/21 15:16 IMPRESSION: No acute intracranial pathology. Head CT 10/09/21 13:54 IMPRESSION: No acute intracranial pathology. Pelvic/Transvag US 10/13/21 09:24 IMPRESSION: Abnormally thickened endometrium for a postmenopausal patient measuring 0.9 cm. 3 x 2.7 x 3.7 cm mass in the posterior cervix. This may represent a fibroid. Slightly thickened trabeculated bladder wall. Head CT 10/20/21 08:18 IMPRESSION: No acute intracranial pathology. This critical result was discussed with Dr. Chu at 8:30 hours on 10/20/2021. It was ascertained that the content and urgency of the report was understood at the time of direct communication. Head CT 11/20/21 19:29 IMPRESSION: No acute intracranial pathology. Medications Medications Current Medications Acetaminophen (Acetaminophen 325 Mg Tablet) 650 mg PO Q6H PRN PRN Reason: Headache/Pain Mild Scale (1-3) Last Admin: 02/10/22 05:38 Dose: 650 mg Al Hydroxide/Mg Hydroxide (Magnesium Hydrox/Alum Hydrox 30 Ml Oral.Susp) 30 ml PO Q6H PRN PRN Reason: Heartburn/Nausea Apixaban (Apixaban 5 Mg Tablet) 5 mg PO BID [facility] Last Admin: 02/12/22 10:39 Dose: Not Given Benztropine Mesylate (Benztropine Mesylate 1 Mg Tablet) 1 mg PO BID [facility] Last Admin: 02/12/22 10:26 Dose: 1 mg Bisacodyl (Bisacodyl 10 Mg Supp.Rect) 10 mg [place] DAILY PRN PRN Reason: Constipation Last Admin: 12/16/21 04:01 Dose: 10 mg Clotrimazole (Clotrimazole 1 % Cream 15 Gm Tube) 1 appl TOPICAL BID [facility]; Protocol Last Admin: 02/12/22 10:38 Dose: Not Given Clozapine (Clozapine 100 Mg Tablet) 100 mg PO DAILY [facility] Last Admin: 02/12/22 10:26 Dose: 100 mg Clozapine (Clozapine 100 Mg Tablet) 300 mg PO BEDTIME [facility] Last Admin: 02/11/22 20:30 Dose: 300 mg Clozapine (Clozapine 100 Mg Tablet) 100 mg PO DAILY@1700 [facility] Last Admin: 02/11/22 17:13 Dose: 100 mg Desmopressin Acetate (Desmopressin Acetate 0.2 Mg Tablet) 0.2 mg PO BID [facility] Last Admin: 02/12/22 10:25 Dose: 0.2 mg Docusate Sodium (Docusate Sodium 100 Mg Capsule) 100 mg PO BID [facility] Last Admin: 02/12/22 10:38 Dose: Not Given Haloperidol (Haloperidol 5 Mg Tablet) 5 mg PO BID [facility] Last Admin: 02/12/22 10:26 Dose: 5 mg Hydrochlorothiazide (Hydrochlorothiazide 25 Mg Tablet) 25 mg PO DAILY [facility]; Protocol Last Admin: 02/12/22 10:25 Dose: 25 mg Hydroxyzine HCl (Hydroxyzine Hcl 25 Mg Tablet) 25 mg PO BEDTIME PRN PRN Reason: Anxiety Last Admin: 02/03/22 21:26 Dose: 25 mg Hydroxyzine HCl (Hydroxyzine Hcl 25 Mg Tablet) 25 mg PO BID PRN PRN Reason: Anxiety Last Admin: 01/16/22 15:10 Dose: 25 mg [place] Carbonate ([place] Carbonate 300 Mg Capsule) 300 mg PO BID [facility] Last Admin: 02/12/22 10:26 Dose: 300 mg Loperamide HCl (Loperamide Hcl 2 Mg Capsule) 4 mg PO Q4H PRN PRN Reason: Diarrhea Last Admin: 11/01/21 17:04 Dose: 4 mg Magnesium Hydroxide (Milk Of Magnesia 30 Ml Oral.Susp) 30 ml PO DAILY PRN PRN Reason: Constipation Last Admin: 01/30/22 22:11 Dose: 30 ml Mirtazapine (Mirtazapine 15 Mg Tablet) 15 mg PO BEDTIME [facility] Last Admin: 02/11/22 20:30 Dose: 15 mg Olanzapine (Olanzapine 10 Mg Vial) 5 mg IM STAT PRN PRN Reason: refusal of Clozaril PO Last Admin: 02/10/22 18:05 Dose: 5 mg Polyethylene Glycol (Polyethylene Glycol 3350 17 Gm Powd.Pack) 17 gm PO BID [facility] Last Admin: 02/12/22 10:29 Dose: 17 gm Potassium Chloride (Potassium Chloride Er 10 Meq Capsule.Er) 40 meq PO BID [facility] Last Admin: 02/12/22 10:39 Dose: Not Given Senna (Sennosides 8.6 Mg Tablet) 8.6 mg PO BEDTIME [facility] Last Admin: 02/11/22 20:33 Dose: Not Given Trazodone HCl (Trazodone Hcl 50 Mg Tablet) 50 mg PO BEDTIME PRN PRN Reason: Insomnia Last Admin: 02/11/22 22:09 Dose: 50 mg Trolamine Salicylate/Aloe Vera (Trolamine Salicylate 10%/Aloe Cream 35.4 Gm) 1 appl TOPICAL TID PRN PRN Reason: neck pain Last Admin: 02/02/22 22:34 Dose: 1 appl Allergies Allergies Allergy/AdvReac Type Severity Reaction Status Date / Time No Known Allergies Allergy Unverified 05/01/20 19:42 [No Known Allergies*] Assessment & Plan Assessment & Plan (1) Schizophrenia, paranoid, chronic with acute exacerbation: Status: Acute Code(s): F20.0 - Paranoid schizophrenia (2) Hypertension: Status: Acute Code(s): I10 - Essential (primary) hypertension (3) Dementia: Status: Acute Code(s): F03.90 - Unspecified dementia without behavioral disturbance Plan Elderly female with a long history of schizoaffective disorder bipolar type who was admitted into the facility for exacerbation of psychosis and mood lability. The patient is on Clozaril and apparently she has not been fully compliant with treatment. 11/21 slipped, hit head on 11/20, head CT reviewed and unremarkable. We did a MOCA and she is technically demented at this moment Plan 1. The patient at this moment is on 3 psychotics, Clozaril , Haldol and Invega Sustenna. 2. Discontinue Haldol 5 mg IM if the patient refuses Clozaril and replace with Zyprexa. 3. Lower total Clozaril to 500 mg a day. We will not continue with Invega Sustenna sings there is no improvement with 3 antipsychotics. We will keep her on Clozaril and Haldol p.o.. 4. Waiting for placement I spent __20____ minutes with the patient and/or on the patient floor today, greater than?50% of which was spent counseling/coordinating care. Reason for contiued inpatient stay Substantial Risk for: inability to function, rapid decompensation and med/psych decompensation
[2022-02-12] MEDS: Apixaban 5 MG TABLET PO (21:20)
[2022-02-12] MEDS: Mirtazapine 15 MG TABLET PO (21:20)
[2022-02-12] MEDS: cloZAPine 100 MG TABLET 300 MG PO (21:20)
[2022-02-12] MEDS: Docusate Sodium 100 MG CAPSULE PO (21:21)
[2022-02-12] MEDS: Sennosides 8.6 MG TABLET PO (21:21)
[2022-02-12] MEDS: traZODone HCL 50 MG TABLET PO (22:06)
[2022-02-13 07:30] VITALS: BP 101/54; PULSE 84; RESP 16; TEMP 36.6; O2SAT 95
[2022-02-13] MEDS: Lithium Carbonate 300 MG CAPSULE PO ×2 (10:35→20:15)
[2022-02-13] MEDS: Benztropine Mesylate 1 MG TABLET PO ×2 (10:36→20:15)
[2022-02-13] MEDS: HaloperidoL 5 MG TABLET PO ×2 (10:36→20:15)
[2022-02-13] MEDS: cloZAPine 100 MG TABLET PO ×2 (10:36→16:22)
[2022-02-13] MEDS: Apixaban 5 MG TABLET PO ×2 (10:37→20:15)
[2022-02-13] MEDS: Docusate Sodium 100 MG CAPSULE PO ×2 (10:37→20:15)
[2022-02-13] MEDS: Desmopressin Acetate 0.2 MG TABLET PO ×2 (10:37→20:15)
[2022-02-13] MEDS: hydroCHLOROthiazide 25 MG TABLET PO (10:37)
--- NOTE | 2022-02-13 18:22 | PC.NURSE ---
Patient compliant with administration of medications this shift. Visible on unit for meals. Exhibiting agitation and frequent outbursts in response to command AH. Patient interacts minimally with others and is difficult to engage.
[2022-02-13] MEDS: cloZAPine 100 MG TABLET 300 MG PO (20:15)
[2022-02-13] MEDS: polyethylene glycoL 3350 17 GM POWD.PACK PO (20:15)
[2022-02-13] MEDS: Sennosides 8.6 MG TABLET PO (20:15)
[2022-02-13] MEDS: Mirtazapine 15 MG TABLET PO (20:15)
[2022-02-13 20:45] VITALS: BP 113/65; PULSE 89; RESP 18; TEMP 36.4; O2SAT 96
--- NOTE | 2022-02-13 22:46 | HO.PSYCHPN ---
Subjective Subjective Date of Service: 02/13/22 Reason For Visit: psychotic disorder Subjective Notes: Church Warning Interim History: Patient seen and discussed with team. Patient evaluated today and upon interview she says she is not good. She ate alright, slept okay, denies having questions or concerns, feels safe here.? In the milieu, patient is safe and visible, at times agitated, unprovoked and yelling I cant take it, redirectable. Medication Compliance: Yes Side effects from medications: No Attending Groups: Intermittent Review of Systems Acute medical concerns: No Medical Review of Systems: unchanged Mental Status Exam Mental Status Exam Narrative: Patient Appearance: Well Grooomed Patient Orientation: Person and Situation Level of Consciousness: Awake Patient Behavior: Cooperative Mood Description: Withdrawn Affect Description: Labile Patient Cognition Impaired: Yes Speech Pattern: Clear Hallucinations: Auditory Delusions: Paranoid Ideation Thought Process: Illogical and Slowed Thinking Thought Content: positive for [place] and positive for Circumstantial Judgement: Fair Diagnostics Vital Signs (24Hr): Vital Signs - 24 hr 02/13/22 20:45 02/14/22 07:30 Temperature 97.5 F 97.4 F Pulse Rate 89 88 Respiratory Rate 18 16 Blood Pressure 113/65 111/70 Pulse Oximetry 96 93 Oxygen Delivery Method Room Air Room Air BMI result Body Mass Index 26.2 Labs Results: 01/22/22 08:07 02/11/22 08:06 Imaging Radiology Impressions: ITS Impressions Head CT 10/08/21 15:16 IMPRESSION: No acute intracranial pathology. Head CT 10/09/21 13:54 IMPRESSION: No acute intracranial pathology. Pelvic/Transvag US 10/13/21 09:24 IMPRESSION: Abnormally thickened endometrium for a postmenopausal patient measuring 0.9 cm. 3 x 2.7 x 3.7 cm mass in the posterior cervix. This may represent a fibroid. Slightly thickened trabeculated bladder wall. Head CT 10/20/21 08:18 IMPRESSION: No acute intracranial pathology. This critical result was discussed with Dr. Chu at 8:30 hours on 10/20/2021. It was ascertained that the content and urgency of the report was understood at the time of direct communication. Head CT 11/20/21 19:29 IMPRESSION: No acute intracranial pathology. Medications Medications Current Medications Acetaminophen (Acetaminophen 325 Mg Tablet) 650 mg PO Q6H PRN PRN Reason: Headache/Pain Mild Scale (1-3) Last Admin: 02/10/22 05:38 Dose: 650 mg Al Hydroxide/Mg Hydroxide (Magnesium Hydrox/Alum Hydrox 30 Ml Oral.Susp) 30 ml PO Q6H PRN PRN Reason: Heartburn/Nausea Apixaban (Apixaban 5 Mg Tablet) 5 mg PO BID [facility] Last Admin: 02/14/22 10:48 Dose: 5 mg Benztropine Mesylate (Benztropine Mesylate 1 Mg Tablet) 1 mg PO BID [facility] Last Admin: 02/14/22 10:48 Dose: 1 mg Bisacodyl (Bisacodyl 10 Mg Supp.Rect) 10 mg [place] DAILY PRN PRN Reason: Constipation Last Admin: 12/16/21 04:01 Dose: 10 mg Clotrimazole (Clotrimazole 1 % Cream 15 Gm Tube) 1 appl TOPICAL BID [facility]; Protocol Last Admin: 02/14/22 11:11 Dose: 1 appl Clozapine (Clozapine 100 Mg Tablet) 100 mg PO DAILY [facility] Last Admin: 02/14/22 10:47 Dose: 100 mg Clozapine (Clozapine 100 Mg Tablet) 300 mg PO BEDTIME [facility] Last Admin: 02/13/22 20:15 Dose: 300 mg Clozapine (Clozapine 100 Mg Tablet) 100 mg PO DAILY@1700 [facility] Last Admin: 02/13/22 16:22 Dose: 100 mg Desmopressin Acetate (Desmopressin Acetate 0.2 Mg Tablet) 0.2 mg PO BID [facility] Last Admin: 02/14/22 10:49 Dose: 0.2 mg Docusate Sodium (Docusate Sodium 100 Mg Capsule) 100 mg PO BID [facility] Last Admin: 02/14/22 10:49 Dose: 100 mg Haloperidol (Haloperidol 5 Mg Tablet) 5 mg PO BID [facility] Last Admin: 02/14/22 10:46 Dose: 5 mg Hydrochlorothiazide (Hydrochlorothiazide 25 Mg Tablet) 25 mg PO DAILY [facility]; Protocol Last Admin: 02/14/22 10:49 Dose: 25 mg Hydroxyzine HCl (Hydroxyzine Hcl 25 Mg Tablet) 25 mg PO BEDTIME PRN PRN Reason: Anxiety Last Admin: 02/03/22 21:26 Dose: 25 mg Hydroxyzine HCl (Hydroxyzine Hcl 25 Mg Tablet) 25 mg PO BID PRN PRN Reason: Anxiety Last Admin: 01/16/22 15:10 Dose: 25 mg [place] Carbonate ([place] Carbonate 300 Mg Capsule) 300 mg PO BID [facility] Last Admin: 02/14/22 10:46 Dose: 300 mg Loperamide HCl (Loperamide Hcl 2 Mg Capsule) 4 mg PO Q4H PRN PRN Reason: Diarrhea Last Admin: 11/01/21 17:04 Dose: 4 mg Magnesium Hydroxide (Milk Of Magnesia 30 Ml Oral.Susp) 30 ml PO DAILY PRN PRN Reason: Constipation Last Admin: 01/30/22 22:11 Dose: 30 ml Mirtazapine (Mirtazapine 15 Mg Tablet) 15 mg PO BEDTIME [facility] Last Admin: 02/13/22 20:15 Dose: 15 mg Olanzapine (Olanzapine 10 Mg Vial) 5 mg IM STAT PRN PRN Reason: refusal of Clozaril PO Last Admin: 02/10/22 18:05 Dose: 5 mg Polyethylene Glycol (Polyethylene Glycol 3350 17 Gm Powd.Pack) 17 gm PO BID [facility] Last Admin: 02/14/22 10:49 Dose: 17 gm Potassium Chloride (Potassium Chloride Er 10 Meq Capsule.Er) 40 meq PO BID [facility] Last Admin: 02/14/22 10:49 Dose: Not Given Senna (Sennosides 8.6 Mg Tablet) 8.6 mg PO BEDTIME [facility] Last Admin: 02/13/22 20:15 Dose: 8.6 mg Trazodone HCl (Trazodone Hcl 50 Mg Tablet) 50 mg PO BEDTIME PRN PRN Reason: Insomnia Last Admin: 02/12/22 22:06 Dose: 50 mg Trolamine Salicylate/Aloe Vera (Trolamine Salicylate 10%/Aloe Cream 35.4 Gm) 1 appl TOPICAL TID PRN PRN Reason: neck pain Last Admin: 02/02/22 22:34 Dose: 1 appl Allergies Allergies Allergy/AdvReac Type Severity Reaction Status Date / Time No Known Allergies Allergy Unverified 05/01/20 19:42 [No Known Allergies*] Assessment & Plan Assessment & Plan (1) Schizophrenia, paranoid, chronic with acute exacerbation: Status: Acute Code(s): F20.0 - Paranoid schizophrenia (2) Hypertension: Status: Acute Code(s): I10 - Essential (primary) hypertension (3) Dementia: Status: Acute Code(s): F03.90 - Unspecified dementia without behavioral disturbance Plan Elderly female with a long history of schizoaffective disorder bipolar type who was admitted into the facility for exacerbation of psychosis and mood lability. The patient is on Clozaril and apparently she has not been fully compliant with treatment. 11/21 slipped, hit head on 11/20, head CT reviewed and unremarkable. We did a MOCA and she is technically demented at this moment Plan 1. The patient at this moment is on 3 psychotics, Clozaril , Haldol and Invega Sustenna. 2. Discontinue Haldol 5 mg IM if the patient refuses Clozaril and replace with Zyprexa. 3. Lower total Clozaril to 500 mg a day. We will not continue with Invega Sustenna since there is no improvement with 3 antipsychotics. We will keep her on Clozaril and Haldol p.o.. 4. Waiting for placement I spent minutes with the patient and/or on the patient floor today, greater than?50% of which was spent counseling/coordinating care. Patient educated on: other Reason for contiued inpatient stay Substantial Risk for: inability to function and rapid decompensation
[2022-02-14 07:30] VITALS: BP 111/70; PULSE 88; RESP 16; TEMP 36.3; O2SAT 93
[2022-02-14] MEDS: HaloperidoL 5 MG TABLET PO ×2 (10:46→21:22)
[2022-02-14] MEDS: Lithium Carbonate 300 MG CAPSULE PO ×2 (10:46→21:23)
[2022-02-14] MEDS: cloZAPine 100 MG TABLET PO (10:47)
[2022-02-14] MEDS: Benztropine Mesylate 1 MG TABLET PO ×2 (10:48→21:23)
[2022-02-14] MEDS: Apixaban 5 MG TABLET PO ×2 (10:48→21:23)
[2022-02-14] MEDS: Desmopressin Acetate 0.2 MG TABLET PO ×2 (10:49→21:23)
[2022-02-14] MEDS: polyethylene glycoL 3350 17 GM POWD.PACK PO (10:49)
[2022-02-14] MEDS: Docusate Sodium 100 MG CAPSULE PO ×2 (10:49→21:23)
[2022-02-14] MEDS: hydroCHLOROthiazide 25 MG TABLET PO (10:49)
[2022-02-14] MEDS: Clotrimazole 1 % Cream 15 GM TUBE 1 APPL TOPICAL (11:11)
--- NOTE | 2022-02-14 11:49 | HO.PSYCHPN ---
Subjective Subjective Date of Service: 02/14/22 Reason For Visit: psychotic disorder Subjective Notes: Church Warning Interim History: Patient seen and discussed with team. Patient evaluated today and upon interview pt reports she is alright, i guess, i dont know. Complains of back pain. Says she slept pretty good. Eating somewhat. Asks When can i get out of here? Says she wants to go home. Abruptly says Forget it, she is tearful, labile. In the milieu, patient is safe but intermittently agitated, yelling. redirectable. Medication Compliance: Yes Side effects from medications: No Attending Groups: Intermittent Review of Systems Acute medical concerns: No Medical Review of Systems: unchanged Mental Status Exam Mental Status Exam Narrative: Patient Appearance: Well Grooomed Patient Orientation: Person and Situation Level of Consciousness: Awake Patient Behavior: Cooperative Mood Description: Withdrawn Affect Description: Labile Patient Cognition Impaired: Yes Speech Pattern: Clear Hallucinations: Auditory Delusions: Paranoid Ideation Thought Process: Illogical and Slowed Thinking Thought Content: positive for [place] and positive for Circumstantial Judgement: Fair Diagnostics Vital Signs (24Hr): Vital Signs - 24 hr 02/13/22 20:45 02/14/22 07:30 Temperature 97.5 F 97.4 F Pulse Rate 89 88 Respiratory Rate 18 16 Blood Pressure 113/65 111/70 Pulse Oximetry 96 93 Oxygen Delivery Method Room Air Room Air BMI result Body Mass Index 26.2 Labs Results: 01/22/22 08:07 02/11/22 08:06 Imaging Radiology Impressions: ITS Impressions Head CT 10/08/21 15:16 IMPRESSION: No acute intracranial pathology. Head CT 10/09/21 13:54 IMPRESSION: No acute intracranial pathology. Pelvic/Transvag US 10/13/21 09:24 IMPRESSION: Abnormally thickened endometrium for a postmenopausal patient measuring 0.9 cm. 3 x 2.7 x 3.7 cm mass in the posterior cervix. This may represent a fibroid. Slightly thickened trabeculated bladder wall. Head CT 10/20/21 08:18 IMPRESSION: No acute intracranial pathology. This critical result was discussed with Dr. Chu at 8:30 hours on 10/20/2021. It was ascertained that the content and urgency of the report was understood at the time of direct communication. Head CT 11/20/21 19:29 IMPRESSION: No acute intracranial pathology. Medications Medications Current Medications Acetaminophen (Acetaminophen 325 Mg Tablet) 650 mg PO Q6H PRN PRN Reason: Headache/Pain Mild Scale (1-3) Last Admin: 02/10/22 05:38 Dose: 650 mg Al Hydroxide/Mg Hydroxide (Magnesium Hydrox/Alum Hydrox 30 Ml Oral.Susp) 30 ml PO Q6H PRN PRN Reason: Heartburn/Nausea Apixaban (Apixaban 5 Mg Tablet) 5 mg PO BID [facility] Last Admin: 02/14/22 10:48 Dose: 5 mg Benztropine Mesylate (Benztropine Mesylate 1 Mg Tablet) 1 mg PO BID [facility] Last Admin: 02/14/22 10:48 Dose: 1 mg Bisacodyl (Bisacodyl 10 Mg Supp.Rect) 10 mg [place] DAILY PRN PRN Reason: Constipation Last Admin: 12/16/21 04:01 Dose: 10 mg Clotrimazole (Clotrimazole 1 % Cream 15 Gm Tube) 1 appl TOPICAL BID [facility]; Protocol Last Admin: 02/14/22 11:11 Dose: 1 appl Clozapine (Clozapine 100 Mg Tablet) 100 mg PO DAILY [facility] Last Admin: 02/14/22 10:47 Dose: 100 mg Clozapine (Clozapine 100 Mg Tablet) 300 mg PO BEDTIME [facility] Last Admin: 02/13/22 20:15 Dose: 300 mg Clozapine (Clozapine 100 Mg Tablet) 100 mg PO DAILY@1700 [facility] Last Admin: 02/13/22 16:22 Dose: 100 mg Desmopressin Acetate (Desmopressin Acetate 0.2 Mg Tablet) 0.2 mg PO BID [facility] Last Admin: 02/14/22 10:49 Dose: 0.2 mg Docusate Sodium (Docusate Sodium 100 Mg Capsule) 100 mg PO BID [facility] Last Admin: 02/14/22 10:49 Dose: 100 mg Haloperidol (Haloperidol 5 Mg Tablet) 5 mg PO BID [facility] Last Admin: 02/14/22 10:46 Dose: 5 mg Hydrochlorothiazide (Hydrochlorothiazide 25 Mg Tablet) 25 mg PO DAILY [facility]; Protocol Last Admin: 02/14/22 10:49 Dose: 25 mg Hydroxyzine HCl (Hydroxyzine Hcl 25 Mg Tablet) 25 mg PO BEDTIME PRN PRN Reason: Anxiety Last Admin: 02/03/22 21:26 Dose: 25 mg Hydroxyzine HCl (Hydroxyzine Hcl 25 Mg Tablet) 25 mg PO BID PRN PRN Reason: Anxiety Last Admin: 01/16/22 15:10 Dose: 25 mg [place] Carbonate ([place] Carbonate 300 Mg Capsule) 300 mg PO BID [facility] Last Admin: 02/14/22 10:46 Dose: 300 mg Loperamide HCl (Loperamide Hcl 2 Mg Capsule) 4 mg PO Q4H PRN PRN Reason: Diarrhea Last Admin: 11/01/21 17:04 Dose: 4 mg Magnesium Hydroxide (Milk Of Magnesia 30 Ml Oral.Susp) 30 ml PO DAILY PRN PRN Reason: Constipation Last Admin: 01/30/22 22:11 Dose: 30 ml Mirtazapine (Mirtazapine 15 Mg Tablet) 15 mg PO BEDTIME [facility] Last Admin: 02/13/22 20:15 Dose: 15 mg Olanzapine (Olanzapine 10 Mg Vial) 5 mg IM STAT PRN PRN Reason: refusal of Clozaril PO Last Admin: 02/10/22 18:05 Dose: 5 mg Polyethylene Glycol (Polyethylene Glycol 3350 17 Gm Powd.Pack) 17 gm PO BID [facility] Last Admin: 02/14/22 10:49 Dose: 17 gm Potassium Chloride (Potassium Chloride Er 10 Meq Capsule.Er) 40 meq PO BID [facility] Last Admin: 02/14/22 10:49 Dose: Not Given Senna (Sennosides 8.6 Mg Tablet) 8.6 mg PO BEDTIME [facility] Last Admin: 02/13/22 20:15 Dose: 8.6 mg Trazodone HCl (Trazodone Hcl 50 Mg Tablet) 50 mg PO BEDTIME PRN PRN Reason: Insomnia Last Admin: 02/12/22 22:06 Dose: 50 mg Trolamine Salicylate/Aloe Vera (Trolamine Salicylate 10%/Aloe Cream 35.4 Gm) 1 appl TOPICAL TID PRN PRN Reason: neck pain Last Admin: 02/02/22 22:34 Dose: 1 appl Allergies Allergies Allergy/AdvReac Type Severity Reaction Status Date / Time No Known Allergies Allergy Unverified 05/01/20 19:42 [No Known Allergies*] Assessment & Plan Assessment & Plan (1) Schizophrenia, paranoid, chronic with acute exacerbation: Status: Acute Code(s): F20.0 - Paranoid schizophrenia (2) Hypertension: Status: Acute Code(s): I10 - Essential (primary) hypertension (3) Dementia: Status: Acute Code(s): F03.90 - Unspecified dementia without behavioral disturbance Plan Elderly female with a long history of schizoaffective disorder bipolar type who was admitted into the facility for exacerbation of psychosis and mood lability. The patient is on Clozaril and apparently she has not been fully compliant with treatment. 11/21 slipped, hit head on 11/20, head CT reviewed and unremarkable. We did a MOCA and she is technically demented at this moment Plan 1. The patient at this moment is on 3 psychotics, Clozaril , Haldol and Invega Sustenna. 2. Discontinue Haldol 5 mg IM if the patient refuses Clozaril and replace with Zyprexa. 3. Lower total Clozaril to 500 mg a day. We will not continue with Invega Sustenna sings there is no improvement with 3 antipsychotics. We will keep her on Clozaril and Haldol p.o.. 4. Waiting for placement I spent minutes with the patient and/or on the patient floor today, greater than?50% of which was spent counseling/coordinating care. Patient educated on: other Reason for contiued inpatient stay Substantial Risk for: inability to function and rapid decompensation
[2022-02-14] MEDS: OLANZapine 10 MG VIAL 5 MG IM (16:42)
--- NOTE | 2022-02-14 16:45 | PC.NURSE ---
Patient refused clozaril at 1700. IM Zyprexa was given after several attempts to encourage patient to take po clozaril. IM was given in R deltoid.
[2022-02-14] MEDS: Sennosides 8.6 MG TABLET PO (21:22)
[2022-02-14 21:23] VITALS: BP 114/86; PULSE 90; RESP 18; TEMP 36.4; O2SAT 100
[2022-02-14] MEDS: cloZAPine 100 MG TABLET 300 MG PO (21:23)
[2022-02-14] MEDS: Mirtazapine 15 MG TABLET PO (21:23)
[2022-02-14] MEDS: traZODone HCL 50 MG TABLET PO (21:29)
[2022-02-15 06:00] VITALS: BP 108/55; PULSE 91; RESP 16; TEMP 36.6; O2SAT 95
[2022-02-15] MEDS: polyethylene glycoL 3350 17 GM POWD.PACK PO (09:15)
[2022-02-15] MEDS: cloZAPine 100 MG TABLET PO ×2 (09:16→16:51)
[2022-02-15] MEDS: hydroCHLOROthiazide 25 MG TABLET PO (09:16)
[2022-02-15] MEDS: Apixaban 5 MG TABLET PO ×2 (09:16→20:17)
[2022-02-15] MEDS: Desmopressin Acetate 0.2 MG TABLET PO ×2 (09:16→20:18)
[2022-02-15] MEDS: Lithium Carbonate 300 MG CAPSULE PO ×2 (09:16→20:18)
[2022-02-15] MEDS: Docusate Sodium 100 MG CAPSULE PO ×2 (09:16→20:18)
[2022-02-15] MEDS: HaloperidoL 5 MG TABLET PO ×2 (09:16→20:18)
[2022-02-15] MEDS: Benztropine Mesylate 1 MG TABLET PO ×2 (09:17→20:17)
[2022-02-15 18:00] VITALS: BP 120/99; PULSE 94; RESP 18; TEMP 36.2; O2SAT 98
[2022-02-15] MEDS: cloZAPine 100 MG TABLET 300 MG PO (20:17)
[2022-02-15] MEDS: Clotrimazole 1 % Cream 15 GM TUBE 1 APPL TOPICAL (20:17)
[2022-02-15] MEDS: Mirtazapine 15 MG TABLET PO (20:18)
[2022-02-15] MEDS: Acetaminophen 325 MG TABLET 650 MG PO (20:18)
[2022-02-15] MEDS: Sennosides 8.6 MG TABLET PO (20:18)
--- NOTE | 2022-02-15 20:40 | HO.PSYCHPN ---
Subjective Subjective Date of Service: 02/15/22 Reason For Visit: psychotic disorder Subjective Notes: Church Warning Interim History: Patient seen and discussed with team. Patient evaluated today and upon interview pt says she is so, so. Sleep is so, so. Then says I just want to get out of here. No imminent safety concerns. Medication Compliance: Yes Side effects from medications: No Attending Groups: No Review of Systems Acute medical concerns: No Medical Review of Systems: unchanged Mental Status Exam Mental Status Exam Narrative: Patient Appearance: Well Grooomed Patient Orientation: Person and Situation Level of Consciousness: Awake Patient Behavior: Cooperative Mood Description: Withdrawn Affect Description: Labile Patient Cognition Impaired: Yes Speech Pattern: Clear Hallucinations: Auditory Delusions: Paranoid Ideation Thought Process: Illogical and Slowed Thinking Thought Content: positive for [place] and positive for Circumstantial Judgment: Fair Diagnostics Vital Signs (24Hr): Vital Signs - 24 hr 02/15/22 18:00 Temperature 97.1 F Pulse Rate 94 Respiratory Rate 18 Blood Pressure 120/99 H Pulse Oximetry 98 Oxygen Delivery Method Room Air BMI result Body Mass Index 26.2 Labs Results: 01/22/22 08:07 02/11/22 08:06 Imaging Radiology Impressions: ITS Impressions Head CT 10/08/21 15:16 IMPRESSION: No acute intracranial pathology. Head CT 10/09/21 13:54 IMPRESSION: No acute intracranial pathology. Pelvic/Transvag US 10/13/21 09:24 IMPRESSION: Abnormally thickened endometrium for a postmenopausal patient measuring 0.9 cm. 3 x 2.7 x 3.7 cm mass in the posterior cervix. This may represent a fibroid. Slightly thickened trabeculated bladder wall. Head CT 10/20/21 08:18 IMPRESSION: No acute intracranial pathology. This critical result was discussed with Dr. Chu at 8:30 hours on 10/20/2021. It was ascertained that the content and urgency of the report was understood at the time of direct communication. Head CT 11/20/21 19:29 IMPRESSION: No acute intracranial pathology. Medications Medications Current Medications Acetaminophen (Acetaminophen 325 Mg Tablet) 650 mg PO Q6H PRN PRN Reason: Headache/Pain Mild Scale (1-3) Last Admin: 02/15/22 20:18 Dose: 650 mg Al Hydroxide/Mg Hydroxide (Magnesium Hydrox/Alum Hydrox 30 Ml Oral.Susp) 30 ml PO Q6H PRN PRN Reason: Heartburn/Nausea Apixaban (Apixaban 5 Mg Tablet) 5 mg PO BID [facility] Last Admin: 02/15/22 20:17 Dose: 5 mg Benztropine Mesylate (Benztropine Mesylate 1 Mg Tablet) 1 mg PO BID [facility] Last Admin: 02/15/22 20:17 Dose: 1 mg Bisacodyl (Bisacodyl 10 Mg Supp.Rect) 10 mg [place] DAILY PRN PRN Reason: Constipation Last Admin: 12/16/21 04:01 Dose: 10 mg Clotrimazole (Clotrimazole 1 % Cream 15 Gm Tube) 1 appl TOPICAL BID [facility]; Protocol Last Admin: 02/15/22 20:17 Dose: 1 appl Clozapine (Clozapine 100 Mg Tablet) 100 mg PO DAILY [facility] Last Admin: 02/15/22 09:16 Dose: 100 mg Clozapine (Clozapine 100 Mg Tablet) 300 mg PO BEDTIME [facility] Last Admin: 02/15/22 20:17 Dose: 300 mg Clozapine (Clozapine 100 Mg Tablet) 100 mg PO DAILY@1700 [facility] Last Admin: 02/15/22 16:51 Dose: 100 mg Desmopressin Acetate (Desmopressin Acetate 0.2 Mg Tablet) 0.2 mg PO BID [facility] Last Admin: 02/15/22 20:18 Dose: 0.2 mg Docusate Sodium (Docusate Sodium 100 Mg Capsule) 100 mg PO BID [facility] Last Admin: 02/15/22 20:18 Dose: 100 mg Haloperidol (Haloperidol 5 Mg Tablet) 5 mg PO BID [facility] Last Admin: 02/15/22 20:18 Dose: 5 mg Hydrochlorothiazide (Hydrochlorothiazide 25 Mg Tablet) 25 mg PO DAILY [facility]; Protocol Last Admin: 02/15/22 09:16 Dose: 25 mg Hydroxyzine HCl (Hydroxyzine Hcl 25 Mg Tablet) 25 mg PO BEDTIME PRN PRN Reason: Anxiety Last Admin: 02/15/22 22:50 Dose: 25 mg Hydroxyzine HCl (Hydroxyzine Hcl 25 Mg Tablet) 25 mg PO BID PRN PRN Reason: Anxiety Last Admin: 01/16/22 15:10 Dose: 25 mg [place] Carbonate ([place] Carbonate 300 Mg Capsule) 300 mg PO BID [facility] Last Admin: 02/15/22 20:18 Dose: 300 mg Loperamide HCl (Loperamide Hcl 2 Mg Capsule) 4 mg PO Q4H PRN PRN Reason: Diarrhea Last Admin: 11/01/21 17:04 Dose: 4 mg Magnesium Hydroxide (Milk Of Magnesia 30 Ml Oral.Susp) 30 ml PO DAILY PRN PRN Reason: Constipation Last Admin: 01/30/22 22:11 Dose: 30 ml Mirtazapine (Mirtazapine 15 Mg Tablet) 15 mg PO BEDTIME [facility] Last Admin: 02/15/22 20:18 Dose: 15 mg Olanzapine (Olanzapine 10 Mg Vial) 5 mg IM STAT PRN PRN Reason: refusal of Clozaril PO Last Admin: 02/14/22 16:42 Dose: 5 mg Polyethylene Glycol (Polyethylene Glycol 3350 17 Gm Powd.Pack) 17 gm PO BID [facility] Last Admin: 02/15/22 22:19 Dose: Not Given Potassium Chloride (Potassium Chloride Er 10 Meq Capsule.Er) 40 meq PO BID [facility] Last Admin: 02/15/22 20:29 Dose: Not Given Senna (Sennosides 8.6 Mg Tablet) 8.6 mg PO BEDTIME [facility] Last Admin: 02/15/22 20:18 Dose: 8.6 mg Trazodone HCl (Trazodone Hcl 50 Mg Tablet) 50 mg PO BEDTIME PRN PRN Reason: Insomnia Last Admin: 02/15/22 22:50 Dose: 50 mg Trolamine Salicylate/Aloe Vera (Trolamine Salicylate 10%/Aloe Cream 35.4 Gm) 1 appl TOPICAL TID PRN PRN Reason: neck pain Last Admin: 02/02/22 22:34 Dose: 1 appl Allergies Allergies Allergy/AdvReac Type Severity Reaction Status Date / Time No Known Allergies Allergy Unverified 05/01/20 19:42 [No Known Allergies*] Assessment & Plan Assessment & Plan (1) Schizophrenia, paranoid, chronic with acute exacerbation: Status: Acute Code(s): F20.0 - Paranoid schizophrenia (2) Hypertension: Status: Acute Code(s): I10 - Essential (primary) hypertension (3) Dementia: Status: Acute Code(s): F03.90 - Unspecified dementia without behavioral disturbance Plan Elderly female with a long history of schizoaffective disorder bipolar type who was admitted into the facility for exacerbation of psychosis and mood lability. The patient is on Clozaril and apparently she has not been fully compliant with treatment. 11/21 slipped, hit head on 11/20, head CT reviewed and unremarkable. We did a MOCA and she is technically demented at this moment Plan 1. The patient at this moment is on 3 psychotics, Clozaril , Haldol and Invega Sustenna. 2. Discontinue Haldol 5 mg IM if the patient refuses Clozaril and replace with Zyprexa. 3. Lower total Clozaril to 500 mg a day. We will not continue with Invega Sustenna sings there is no improvement with 3 antipsychotics. We will keep her on Clozaril and Haldol p.o.. 4. Waiting for placement I spent minutes with the patient and/or on the patient floor today, greater than?50% of which was spent counseling/coordinating care. Patient educated on: other Reason for contiued inpatient stay Substantial Risk for: inability to function, rapid decompensation and med/psych decompensation
[2022-02-15] MEDS: traZODone HCL 50 MG TABLET PO (22:50)
[2022-02-15] MEDS: hydrOXYzine HCL 25 MG TABLET PO (22:50)
[2022-02-16 06:00] VITALS: BP 115/60; PULSE 80; RESP 16; TEMP 36.1; O2SAT 96
[2022-02-16] MEDS: Lithium Carbonate 300 MG CAPSULE PO ×2 (09:55→20:17)
[2022-02-16] MEDS: Apixaban 5 MG TABLET PO ×2 (09:55→20:16)
[2022-02-16] MEDS: hydroCHLOROthiazide 25 MG TABLET PO (09:55)
[2022-02-16] MEDS: Desmopressin Acetate 0.2 MG TABLET PO ×2 (09:55→20:16)
[2022-02-16] MEDS: cloZAPine 100 MG TABLET PO ×2 (09:55→17:15)
[2022-02-16] MEDS: Docusate Sodium 100 MG CAPSULE PO ×2 (09:55→20:17)
[2022-02-16] MEDS: HaloperidoL 5 MG TABLET PO ×2 (09:55→20:17)
[2022-02-16] MEDS: Benztropine Mesylate 1 MG TABLET PO ×2 (09:55→20:16)
--- NOTE | 2022-02-16 15:30 | HO.PSYCHPN ---
Subjective Subjective Date of Service: 02/16/22 Reason For Visit: psychotic disorder Subjective Notes: Conditional Voluntary Interim History: the nursing staff reported the patient needs a lot of encouragement to take all her medications. It has been noticed that whenever she is fully compliant with Clozaril her level of psychosis improves dramatically but she does not have insight into this fact. Medication Compliance: Yes (with a lot of encouragement) Side effects from medications: No Attending Groups: Intermittent Review of Systems Acute medical concerns: No Medical Review of Systems: unchanged Mental Status Exam Mental Status Exam Patient Appearance: Well Grooomed Patient Orientation: Person and Situation Level of Consciousness: Awake Mood Description: Withdrawn and Constricted Affect Description: Labile Patient Cognition Impaired: Yes Ability to Follow Directions: Good Speech Pattern: Clear Hallucinations: Auditory Delusions: Paranoid Ideation Thought Process: Illogical Thought Content: positive for [place]al Oriented Judgement: Fair Diagnostics Vital Signs (24Hr): Vital Signs - 24 hr 02/15/22 18:00 Temperature 97.1 F Pulse Rate 94 Respiratory Rate 18 Blood Pressure 120/99 H Pulse Oximetry 98 Oxygen Delivery Method Room Air BMI result Body Mass Index 26.2 Labs Results: 01/22/22 08:07 02/11/22 08:06 Imaging Radiology Impressions: ITS Impressions Head CT 10/08/21 15:16 IMPRESSION: No acute intracranial pathology. Head CT 10/09/21 13:54 IMPRESSION: No acute intracranial pathology. Pelvic/Transvag US 10/13/21 09:24 IMPRESSION: Abnormally thickened endometrium for a postmenopausal patient measuring 0.9 cm. 3 x 2.7 x 3.7 cm mass in the posterior cervix. This may represent a fibroid. Slightly thickened trabeculated bladder wall. Head CT 10/20/21 08:18 IMPRESSION: No acute intracranial pathology. This critical result was discussed with Dr. Chu at 8:30 hours on 10/20/2021. It was ascertained that the content and urgency of the report was understood at the time of direct communication. Head CT 11/20/21 19:29 IMPRESSION: No acute intracranial pathology. Medications Medications Current Medications Acetaminophen (Acetaminophen 325 Mg Tablet) 650 mg PO Q6H PRN PRN Reason: Headache/Pain Mild Scale (1-3) Last Admin: 02/15/22 20:18 Dose: 650 mg Al Hydroxide/Mg Hydroxide (Magnesium Hydrox/Alum Hydrox 30 Ml Oral.Susp) 30 ml PO Q6H PRN PRN Reason: Heartburn/Nausea Apixaban (Apixaban 5 Mg Tablet) 5 mg PO BID [facility] Last Admin: 02/16/22 09:55 Dose: 5 mg Benztropine Mesylate (Benztropine Mesylate 1 Mg Tablet) 1 mg PO BID [facility] Last Admin: 02/16/22 09:55 Dose: 1 mg Bisacodyl (Bisacodyl 10 Mg Supp.Rect) 10 mg ID DAILY PRN PRN Reason: Constipation Last Admin: 12/16/21 04:01 Dose: 10 mg Clotrimazole (Clotrimazole 1 % Cream 15 Gm Tube) 1 appl TOPICAL BID [facility]; Protocol Last Admin: 02/16/22 09:55 Dose: Not Given Clozapine (Clozapine 100 Mg Tablet) 100 mg PO DAILY [facility] Last Admin: 02/16/22 09:55 Dose: 100 mg Clozapine (Clozapine 100 Mg Tablet) 300 mg PO BEDTIME [facility] Last Admin: 02/15/22 20:17 Dose: 300 mg Clozapine (Clozapine 100 Mg Tablet) 100 mg PO DAILY@1700 [facility] Last Admin: 02/15/22 16:51 Dose: 100 mg Desmopressin Acetate (Desmopressin Acetate 0.2 Mg Tablet) 0.2 mg PO BID [facility] Last Admin: 02/16/22 09:55 Dose: 0.2 mg Docusate Sodium (Docusate Sodium 100 Mg Capsule) 100 mg PO BID [facility] Last Admin: 02/16/22 09:55 Dose: 100 mg Haloperidol (Haloperidol 5 Mg Tablet) 5 mg PO BID [facility] Last Admin: 02/16/22 09:55 Dose: 5 mg Hydrochlorothiazide (Hydrochlorothiazide 25 Mg Tablet) 25 mg PO DAILY [facility]; Protocol Last Admin: 02/16/22 09:55 Dose: 25 mg Hydroxyzine HCl (Hydroxyzine Hcl 25 Mg Tablet) 25 mg PO BEDTIME PRN PRN Reason: Anxiety Last Admin: 02/15/22 22:50 Dose: 25 mg Hydroxyzine HCl (Hydroxyzine Hcl 25 Mg Tablet) 25 mg PO BID PRN PRN Reason: Anxiety Last Admin: 01/16/22 15:10 Dose: 25 mg [place] Carbonate ([place] Carbonate 300 Mg Capsule) 300 mg PO BID [facility] Last Admin: 02/16/22 09:55 Dose: 300 mg Loperamide HCl (Loperamide Hcl 2 Mg Capsule) 4 mg PO Q4H PRN PRN Reason: Diarrhea Last Admin: 11/01/21 17:04 Dose: 4 mg Magnesium Hydroxide (Milk Of Magnesia 30 Ml Oral.Susp) 30 ml PO DAILY PRN PRN Reason: Constipation Last Admin: 01/30/22 22:11 Dose: 30 ml Mirtazapine (Mirtazapine 15 Mg Tablet) 15 mg PO BEDTIME [facility] Last Admin: 02/15/22 20:18 Dose: 15 mg Olanzapine (Olanzapine 10 Mg Vial) 5 mg IM STAT PRN PRN Reason: refusal of Clozaril PO Last Admin: 02/14/22 16:42 Dose: 5 mg Polyethylene Glycol (Polyethylene Glycol 3350 17 Gm Powd.Pack) 17 gm PO BID [facility] Last Admin: 02/16/22 10:09 Dose: Not Given Potassium Chloride (Potassium Chloride Er 10 Meq Capsule.Er) 40 meq PO BID [facility] Last Admin: 02/16/22 10:09 Dose: Not Given Senna (Sennosides 8.6 Mg Tablet) 8.6 mg PO BEDTIME [facility] Last Admin: 02/15/22 20:18 Dose: 8.6 mg Trazodone HCl (Trazodone Hcl 50 Mg Tablet) 50 mg PO BEDTIME PRN PRN Reason: Insomnia Last Admin: 02/15/22 22:50 Dose: 50 mg Trolamine Salicylate/Aloe Vera (Trolamine Salicylate 10%/Aloe Cream 35.4 Gm) 1 appl TOPICAL TID PRN PRN Reason: neck pain Last Admin: 02/02/22 22:34 Dose: 1 appl Allergies Allergies Allergy/AdvReac Type Severity Reaction Status Date / Time No Known Allergies Allergy Unverified 05/01/20 19:42 [No Known Allergies*] Assessment & Plan Assessment & Plan (1) Schizophrenia, paranoid, chronic with acute exacerbation: Status: Acute Code(s): F20.0 - Paranoid schizophrenia (2) Hypertension: Status: Acute Code(s): I10 - Essential (primary) hypertension (3) Dementia: Status: Acute Code(s): F03.90 - Unspecified dementia without behavioral disturbance Plan Elderly female with a long history of schizoaffective disorder bipolar type who was admitted into the facility for exacerbation of psychosis and mood lability. The patient is on Clozaril and apparently she has not been fully compliant with treatment. 11/21 slipped, hit head on 11/20, head CT reviewed and unremarkable. We did a MOCA and she is technically demented at this moment Plan 1. The patient at this moment is on 3 psychotics, Clozaril , Haldol and Invega Sustenna. 2. Discontinue Haldol 5 mg IM if the patient refuses Clozaril and replace with Zyprexa. 3. Lower total Clozaril to 500 mg a day. We will not continue with Invega Sustenna sings there is no improvement with 3 antipsychotics. We will keep her on Clozaril and Haldol p.o.. 4. Waiting for placement I spent ___20___ minutes with the patient and/or on the patient floor today, greater than?50% of which was spent counseling/coordinating care. Reason for contiued inpatient stay Substantial Risk for: inability to function, rapid decompensation and med/psych decompensation
[2022-02-16 18:00] VITALS: BP 126/56; PULSE 82; RESP 19; TEMP 36.4; O2SAT 100
[2022-02-16] MEDS: cloZAPine 100 MG TABLET 300 MG PO (20:16)
[2022-02-16] MEDS: polyethylene glycoL 3350 17 GM POWD.PACK PO (20:17)
[2022-02-16] MEDS: Mirtazapine 15 MG TABLET PO (20:17)
[2022-02-16] MEDS: Sennosides 8.6 MG TABLET PO (20:17)
[2022-02-16] MEDS: Clotrimazole 1 % Cream 15 GM TUBE 1 APPL TOPICAL (20:26)
[2022-02-17 07:30] VITALS: BP 126/66; PULSE 85; RESP 16; TEMP 36.3; O2SAT 94
[2022-02-17] MEDS: Desmopressin Acetate 0.2 MG TABLET PO ×2 (09:31→20:41)
[2022-02-17] MEDS: HaloperidoL 5 MG TABLET PO ×2 (09:31→20:40)
[2022-02-17] MEDS: Docusate Sodium 100 MG CAPSULE PO ×2 (09:31→20:41)
[2022-02-17] MEDS: hydroCHLOROthiazide 25 MG TABLET PO (09:31)
[2022-02-17] MEDS: Benztropine Mesylate 1 MG TABLET PO ×2 (09:31→20:40)
[2022-02-17] MEDS: cloZAPine 100 MG TABLET PO ×2 (09:31→17:36)
[2022-02-17] MEDS: Lithium Carbonate 300 MG CAPSULE PO ×2 (09:31→20:40)
[2022-02-17] MEDS: Apixaban 5 MG TABLET PO ×2 (09:31→20:40)
[2022-02-17] MEDS: polyethylene glycoL 3350 17 GM POWD.PACK PO (09:32)
[2022-02-17 15:25] VITALS: BP 126/55; PULSE 81; RESP 16; O2SAT 99
--- NOTE | 2022-02-17 16:15 | P.PNPSI_ITS ---
Subjective Subjective Date of Service: 02/17/22 Reason For Visit: psychotic disorder Subjective Notes: Conditional Voluntary Interim History: the nursing staff reported the patient has been compliant with treatment but she did a lot of encouragement. She remains pleasantly psychotic at times. On interview the patient denies new symptoms Mental Status Exam Mental Status Exam Patient Appearance: Well Grooomed Patient Orientation: Person and Situation Level of Consciousness: Awake Patient Behavior: Cooperative Mood Description: Withdrawn Affect Description: Calm Patient Cognition Impaired: Yes Ability to Follow Directions: Good Speech Pattern: Clear Hallucinations: Auditory Delusions: Paranoid Ideation and Grandiose Thought Process: Distracted and Evasive Thought Content: positive for [place], positive for Circumstantial and positive for Poverty of Content Judgement: Fair Diagnostics Vital Signs (24Hr): Vital Signs - 24 hr 02/16/22 18:00 02/17/22 07:30 Temperature 97.6 F 97.3 F Pulse Rate 82 85 Respiratory Rate 19 16 Blood Pressure 126/56 L 126/66 Pulse Oximetry 100 94 Oxygen Delivery Method Room Air Room Air BMI result Body Mass Index 26.2 Labs Results: 01/22/22 08:07 02/11/22 08:06 Imaging Radiology Impressions: ITS Impressions Head CT 10/08/21 15:16 IMPRESSION: No acute intracranial pathology. Head CT 10/09/21 13:54 IMPRESSION: No acute intracranial pathology. Pelvic/Transvag US 10/13/21 09:24 IMPRESSION: Abnormally thickened endometrium for a postmenopausal patient measuring 0.9 cm. 3 x 2.7 x 3.7 cm mass in the posterior cervix. This may represent a fibroid. Slightly thickened trabeculated bladder wall. Head CT 10/20/21 08:18 IMPRESSION: No acute intracranial pathology. This critical result was discussed with Dr. Chu at 8:30 hours on 10/20/2021. It was ascertained that the content and urgency of the report was understood at the time of direct communication. Head CT 11/20/21 19:29 IMPRESSION: No acute intracranial pathology. Medications Medications Current Medications Acetaminophen (Acetaminophen 325 Mg Tablet) 650 mg PO Q6H PRN PRN Reason: Headache/Pain Mild Scale (1-3) Last Admin: 02/15/22 20:18 Dose: 650 mg Al Hydroxide/Mg Hydroxide (Magnesium Hydrox/Alum Hydrox 30 Ml Oral.Susp) 30 ml PO Q6H PRN PRN Reason: Heartburn/Nausea Apixaban (Apixaban 5 Mg Tablet) 5 mg PO BID [facility] Last Admin: 02/17/22 09:31 Dose: 5 mg Benztropine Mesylate (Benztropine Mesylate 1 Mg Tablet) 1 mg PO BID [facility] Last Admin: 02/17/22 09:31 Dose: 1 mg Bisacodyl (Bisacodyl 10 Mg Supp.Rect) 10 mg [place] DAILY PRN PRN Reason: Constipation Last Admin: 12/16/21 04:01 Dose: 10 mg Clotrimazole (Clotrimazole 1 % Cream 15 Gm Tube) 1 appl TOPICAL BID [facility]; Protocol Last Admin: 02/17/22 11:14 Dose: Not Given Clozapine (Clozapine 100 Mg Tablet) 100 mg PO DAILY [facility] Last Admin: 02/17/22 09:31 Dose: 100 mg Clozapine (Clozapine 100 Mg Tablet) 300 mg PO BEDTIME [facility] Last Admin: 02/16/22 20:16 Dose: 300 mg Clozapine (Clozapine 100 Mg Tablet) 100 mg PO DAILY@1700 [facility] Last Admin: 02/16/22 17:15 Dose: 100 mg Desmopressin Acetate (Desmopressin Acetate 0.2 Mg Tablet) 0.2 mg PO BID [facility] Last Admin: 02/17/22 09:31 Dose: 0.2 mg Docusate Sodium (Docusate Sodium 100 Mg Capsule) 100 mg PO BID [facility] Last Admin: 02/17/22 09:31 Dose: 100 mg Haloperidol (Haloperidol 5 Mg Tablet) 5 mg PO BID [facility] Last Admin: 02/17/22 09:31 Dose: 5 mg Hydrochlorothiazide (Hydrochlorothiazide 25 Mg Tablet) 25 mg PO DAILY [facility]; Protocol Last Admin: 02/17/22 09:31 Dose: 25 mg Hydroxyzine HCl (Hydroxyzine Hcl 25 Mg Tablet) 25 mg PO BEDTIME PRN PRN Reason: Anxiety Last Admin: 02/15/22 22:50 Dose: 25 mg Hydroxyzine HCl (Hydroxyzine Hcl 25 Mg Tablet) 25 mg PO BID PRN PRN Reason: Anxiety Last Admin: 01/16/22 15:10 Dose: 25 mg [place] Carbonate ([place] Carbonate 300 Mg Capsule) 300 mg PO BID [facility] Last Admin: 02/17/22 09:31 Dose: 300 mg Loperamide HCl (Loperamide Hcl 2 Mg Capsule) 4 mg PO Q4H PRN PRN Reason: Diarrhea Last Admin: 11/01/21 17:04 Dose: 4 mg Magnesium Hydroxide (Milk Of Magnesia 30 Ml Oral.Susp) 30 ml PO DAILY PRN PRN Reason: Constipation Last Admin: 01/30/22 22:11 Dose: 30 ml Mirtazapine (Mirtazapine 15 Mg Tablet) 15 mg PO BEDTIME [facility] Last Admin: 02/16/22 20:17 Dose: 15 mg Olanzapine (Olanzapine 10 Mg Vial) 5 mg IM STAT PRN PRN Reason: refusal of Clozaril PO Last Admin: 02/14/22 16:42 Dose: 5 mg Polyethylene Glycol (Polyethylene Glycol 3350 17 Gm Powd.Pack) 17 gm PO BID [facility] Last Admin: 02/17/22 09:32 Dose: 17 gm Potassium Chloride (Potassium Chloride Er 10 Meq Capsule.Er) 40 meq PO BID [facility] Last Admin: 02/17/22 11:14 Dose: Not Given Senna (Sennosides 8.6 Mg Tablet) 8.6 mg PO BEDTIME [facility] Last Admin: 02/16/22 20:17 Dose: 8.6 mg Trazodone HCl (Trazodone Hcl 50 Mg Tablet) 50 mg PO BEDTIME PRN PRN Reason: Insomnia Last Admin: 02/15/22 22:50 Dose: 50 mg Trolamine Salicylate/Aloe Vera (Trolamine Salicylate 10%/Aloe Cream 35.4 Gm) 1 appl TOPICAL TID PRN PRN Reason: neck pain Last Admin: 02/02/22 22:34 Dose: 1 appl Allergies Allergies Allergy/AdvReac Type Severity Reaction Status Date / Time No Known Allergies Allergy Unverified 05/01/20 19:42 [No Known Allergies*] Assessment & Plan Assessment & Plan (1) Schizophrenia, paranoid, chronic with acute exacerbation: Status: Acute Code(s): F20.0 - Paranoid schizophrenia (2) Hypertension: Status: Acute Code(s): I10 - Essential (primary) hypertension (3) Dementia: Status: Acute Code(s): F03.90 - Unspecified dementia without behavioral disturbance Plan Elderly female with a long history of schizoaffective disorder bipolar type who was admitted into the facility for exacerbation of psychosis and mood lability. The patient is on Clozaril and apparently she has not been fully compliant with treatment. 11/21 slipped, hit head on 11/20, head CT reviewed and unremarkable. We did a MOCA and she is technically demented at this moment Plan 1. The patient at this moment is on 3 psychotics, Clozaril , Haldol and Invega Sustenna. 2. Discontinue Haldol 5 mg IM if the patient refuses Clozaril and replace with Zyprexa. 3. Lower total Clozaril to 500 mg a day. We will not continue with Invega Sustenna sings there is no improvement with 3 antipsychotics. We will keep her on Clozaril and Haldol p.o.. 4. Waiting for placement I spent ___20___ minutes with the patient and/or on the patient floor today, greater than?50% of which was spent counseling/coordinating care. Reason for contiued inpatient stay Substantial Risk for: inability to function, rapid decompensation and med/psych decompensation
[2022-02-17] MEDS: Acetaminophen 325 MG TABLET 650 MG PO (17:36)
--- NOTE | 2022-02-17 19:31 | PC.NURSE ---
Pt. had not eaten breakfast or lunch and stated that she did not feel well. She was sitting in her chair, listing to the left. Staff continually encouraged pt. to eat. Staff then encouraged pt. to lay down when she kept refusing food. Pt. took a short nap, and then came out to eat dinner. She ate everything on her tray and then stated that she felt better. This RN took pt.'s VS at 1525 which are recorded. Pt. now still stating that she feels better and is not offering any complaints.
[2022-02-17 19:48] VITALS: BP 107/58; PULSE 85; TEMP 36.6; O2SAT 95
[2022-02-17] MEDS: Mirtazapine 15 MG TABLET PO (20:39)
[2022-02-17] MEDS: cloZAPine 100 MG TABLET 300 MG PO (20:39)
[2022-02-17] MEDS: Sennosides 8.6 MG TABLET PO (20:40)
[2022-02-18 06:00] VITALS: BP 133/88; PULSE 98; RESP 18; TEMP 36.6; O2SAT 93
[2022-02-18 07:00] VITALS: BMI 27.8
[2022-02-18] MEDS: Lithium Carbonate 300 MG CAPSULE PO ×2 (11:10→22:38)
[2022-02-18] MEDS: Docusate Sodium 100 MG CAPSULE PO ×2 (11:10→22:25)
[2022-02-18] MEDS: Benztropine Mesylate 1 MG TABLET PO ×2 (11:11→22:25)
[2022-02-18] MEDS: cloZAPine 100 MG TABLET PO ×2 (11:11→18:06)
[2022-02-18] MEDS: Desmopressin Acetate 0.2 MG TABLET PO ×2 (11:11→22:24)
[2022-02-18] MEDS: HaloperidoL 5 MG TABLET PO ×2 (11:11→22:25)
[2022-02-18] MEDS: Apixaban 5 MG TABLET PO ×2 (11:11→22:25)
[2022-02-18] MEDS: polyethylene glycoL 3350 17 GM POWD.PACK PO (11:14)
[2022-02-18] MEDS: hydroCHLOROthiazide 25 MG TABLET PO (11:19)
--- NOTE | 2022-02-18 16:37 | HO.PSYCHPN ---
Subjective Subjective Date of Service: 02/18/22 Reason For Visit: psychotic disorder Subjective Notes: Conditional Voluntary Interim History: the nursing staff reported the patient has been compliant with treatment with a lot of encouragement. She remains irritable at times with level mood. Yesterday she refused breakfast and lunch but she ate well in the evening. Mental Status Exam Mental Status Exam Patient Appearance: Well Grooomed Patient Orientation: Person and Situation Level of Consciousness: Awake Patient Behavior: Cooperative Mood Description: Withdrawn Affect Description: Constricted Patient Cognition Impaired: Yes Ability to Follow Directions: Good Speech Pattern: Clear Hallucinations: Auditory Delusions: Paranoid Ideation and Grandiose Thought Process: Distracted Thought Content: positive for [place] and positive for Circumstantial Judgement: Fair Diagnostics Vital Signs (24Hr): Vital Signs - 24 hr 02/17/22 19:48 02/18/22 06:00 Temperature 97.8 F 98 F Pulse Rate 85 98 Respiratory Rate 18 Blood Pressure 107/58 L 133/88 Pulse Oximetry 95 93 Oxygen Delivery Method Room Air BMI result Body Mass Index 27.8 Labs Results: 01/22/22 08:07 02/11/22 08:06 Imaging Radiology Impressions: ITS Impressions Head CT 10/08/21 15:16 IMPRESSION: No acute intracranial pathology. Head CT 10/09/21 13:54 IMPRESSION: No acute intracranial pathology. Pelvic/Transvag US 10/13/21 09:24 IMPRESSION: Abnormally thickened endometrium for a postmenopausal patient measuring 0.9 cm. 3 x 2.7 x 3.7 cm mass in the posterior cervix. This may represent a fibroid. Slightly thickened trabeculated bladder wall. Head CT 10/20/21 08:18 IMPRESSION: No acute intracranial pathology. This critical result was discussed with Dr. Chu at 8:30 hours on 10/20/2021. It was ascertained that the content and urgency of the report was understood at the time of direct communication. Head CT 11/20/21 19:29 IMPRESSION: No acute intracranial pathology. Medications Medications Current Medications Acetaminophen (Acetaminophen 325 Mg Tablet) 650 mg PO Q6H PRN PRN Reason: Headache/Pain Mild Scale (1-3) Last Admin: 02/17/22 17:36 Dose: 650 mg Al Hydroxide/Mg Hydroxide (Magnesium Hydrox/Alum Hydrox 30 Ml Oral.Susp) 30 ml PO Q6H PRN PRN Reason: Heartburn/Nausea Apixaban (Apixaban 5 Mg Tablet) 5 mg PO BID [facility] Last Admin: 02/18/22 11:11 Dose: 5 mg Benztropine Mesylate (Benztropine Mesylate 1 Mg Tablet) 1 mg PO BID [facility] Last Admin: 02/18/22 11:11 Dose: 1 mg Bisacodyl (Bisacodyl 10 Mg Supp.Rect) 10 mg [place] DAILY PRN PRN Reason: Constipation Last Admin: 12/16/21 04:01 Dose: 10 mg Clotrimazole (Clotrimazole 1 % Cream 15 Gm Tube) 1 appl TOPICAL BID [facility]; Protocol Last Admin: 02/18/22 14:42 Dose: Not Given Clozapine (Clozapine 100 Mg Tablet) 100 mg PO DAILY [facility] Last Admin: 02/18/22 11:11 Dose: 100 mg Clozapine (Clozapine 100 Mg Tablet) 300 mg PO BEDTIME [facility] Last Admin: 02/17/22 20:39 Dose: 300 mg Clozapine (Clozapine 100 Mg Tablet) 100 mg PO DAILY@1700 [facility] Last Admin: 02/17/22 17:36 Dose: 100 mg Desmopressin Acetate (Desmopressin Acetate 0.2 Mg Tablet) 0.2 mg PO BID [facility] Last Admin: 02/18/22 11:11 Dose: 0.2 mg Docusate Sodium (Docusate Sodium 100 Mg Capsule) 100 mg PO BID [facility] Last Admin: 02/18/22 11:10 Dose: 100 mg Haloperidol (Haloperidol 5 Mg Tablet) 5 mg PO BID [facility] Last Admin: 02/18/22 11:11 Dose: 5 mg Hydrochlorothiazide (Hydrochlorothiazide 25 Mg Tablet) 25 mg PO DAILY [facility]; Protocol Last Admin: 02/18/22 11:19 Dose: 25 mg Hydroxyzine HCl (Hydroxyzine Hcl 25 Mg Tablet) 25 mg PO BEDTIME PRN PRN Reason: Anxiety Last Admin: 02/15/22 22:50 Dose: 25 mg Hydroxyzine HCl (Hydroxyzine Hcl 25 Mg Tablet) 25 mg PO BID PRN PRN Reason: Anxiety Last Admin: 01/16/22 15:10 Dose: 25 mg [place] Carbonate ([place] Carbonate 300 Mg Capsule) 300 mg PO BID [facility] Last Admin: 02/18/22 11:10 Dose: 300 mg Loperamide HCl (Loperamide Hcl 2 Mg Capsule) 4 mg PO Q4H PRN PRN Reason: Diarrhea Last Admin: 11/01/21 17:04 Dose: 4 mg Magnesium Hydroxide (Milk Of Magnesia 30 Ml Oral.Susp) 30 ml PO DAILY PRN PRN Reason: Constipation Last Admin: 01/30/22 22:11 Dose: 30 ml Mirtazapine (Mirtazapine 15 Mg Tablet) 15 mg PO BEDTIME [facility] Last Admin: 02/17/22 20:39 Dose: 15 mg Olanzapine (Olanzapine 10 Mg Vial) 5 mg IM STAT PRN PRN Reason: refusal of Clozaril PO Last Admin: 02/14/22 16:42 Dose: 5 mg Polyethylene Glycol (Polyethylene Glycol 3350 17 Gm Powd.Pack) 17 gm PO BID [facility] Last Admin: 02/18/22 11:14 Dose: 17 gm Potassium Chloride (Potassium Chloride Er 10 Meq Capsule.Er) 40 meq PO BID [facility] Last Admin: 02/18/22 11:11 Dose: 40 meq Senna (Sennosides 8.6 Mg Tablet) 8.6 mg PO BEDTIME [facility] Last Admin: 02/17/22 20:40 Dose: 8.6 mg Trazodone HCl (Trazodone Hcl 50 Mg Tablet) 50 mg PO BEDTIME PRN PRN Reason: Insomnia Last Admin: 02/15/22 22:50 Dose: 50 mg Trolamine Salicylate/Aloe Vera (Trolamine Salicylate 10%/Aloe Cream 35.4 Gm) 1 appl TOPICAL TID PRN PRN Reason: neck pain Last Admin: 02/02/22 22:34 Dose: 1 appl Allergies Allergies Allergy/AdvReac Type Severity Reaction Status Date / Time No Known Allergies Allergy Unverified 05/01/20 19:42 [No Known Allergies*] Assessment & Plan Assessment & Plan (1) Schizophrenia, paranoid, chronic with acute exacerbation: Status: Acute Code(s): F20.0 - Paranoid schizophrenia (2) Hypertension: Status: Acute Code(s): I10 - Essential (primary) hypertension (3) Dementia: Status: Acute Code(s): F03.90 - Unspecified dementia without behavioral disturbance Plan Elderly female with a long history of schizoaffective disorder bipolar type who was admitted into the facility for exacerbation of psychosis and mood lability. The patient is on Clozaril and apparently she has not been fully compliant with treatment. 11/21 slipped, hit head on 11/20, head CT reviewed and unremarkable. We did a MOCA and she is technically demented at this moment Plan 1. The patient at this moment is on 3 psychotics, Clozaril , Haldol and Invega Sustenna. 2. Discontinue Haldol 5 mg IM if the patient refuses Clozaril and replace with Zyprexa. 3. Lower total Clozaril to 500 mg a day. We will not continue with Invega Sustenna sings there is no improvement with 3 antipsychotics. We will keep her on Clozaril and Haldol p.o.. 4. Waiting for placement I spent __20____ minutes with the patient and/or on the patient floor today, greater than?50% of which was spent counseling/coordinating care. Reason for contiued inpatient stay Substantial Risk for: inability to function, rapid decompensation and med/psych decompensation
[2022-02-18 18:00] VITALS: BP 122/56; PULSE 86; TEMP 36.7; O2SAT 94
[2022-02-18] MEDS: cloZAPine 100 MG TABLET 300 MG PO (22:24)
[2022-02-18] MEDS: Sennosides 8.6 MG TABLET PO (22:25)
[2022-02-18] MEDS: Mirtazapine 15 MG TABLET PO (22:25)
[2022-02-18] MEDS: Clotrimazole 1 % Cream 15 GM TUBE 1 APPL TOPICAL (22:38)
[2022-02-19 06:00] VITALS: BP 91/52; PULSE 75; RESP 14; TEMP 36.8; O2SAT 94
[2022-02-19 08:02] LABS: Neut%MD 66.7 %; WBCANC 7.5 X10*3/uL
[2022-02-19] MEDS: hydroCHLOROthiazide 25 MG TABLET PO (10:02)
[2022-02-19] MEDS: Lithium Carbonate 300 MG CAPSULE PO ×2 (10:02→20:44)
[2022-02-19] MEDS: Benztropine Mesylate 1 MG TABLET PO ×2 (10:02→20:43)
[2022-02-19] MEDS: Desmopressin Acetate 0.2 MG TABLET PO ×2 (10:02→20:44)
[2022-02-19] MEDS: HaloperidoL 5 MG TABLET PO ×2 (10:03→20:44)
[2022-02-19] MEDS: Apixaban 5 MG TABLET PO ×2 (10:03→20:43)
[2022-02-19] MEDS: Docusate Sodium 100 MG CAPSULE PO ×2 (10:03→20:45)
[2022-02-19] MEDS: cloZAPine 100 MG TABLET PO (10:03)
[2022-02-19] MEDS: polyethylene glycoL 3350 17 GM POWD.PACK PO ×2 (10:04→20:38)
--- NOTE | 2022-02-19 15:06 | HO.PSYCHPN ---
Subjective Subjective Date of Service: 02/19/22 Reason For Visit: psychotic disorder Subjective Notes: Conditional Voluntary Interim History: The nursing staff reported the patient has being irritable at times with yelling, responding to internal stimuli. On interview the patient denies new symptoms, she is waiting for his placement. She is at her baseline and even though that she has sporadic outburst, she is safe and easily redirectable. Mental Status Exam Mental Status Exam Patient Appearance: Well Grooomed Patient Orientation: Person Level of Consciousness: Awake Patient Behavior: Cooperative Mood Description: Withdrawn Affect Description: Constricted Patient Cognition Impaired: Yes Ability to Follow Directions: Good Speech Pattern: Clear Hallucinations: Auditory Delusions: Paranoid Ideation Thought Content: positive for Poverty of Content Judgement: Fair Diagnostics Vital Signs (24Hr): Vital Signs - 24 hr 02/18/22 18:00 02/19/22 06:00 Temperature 98.1 F 98.2 F Pulse Rate 86 75 Respiratory Rate 14 Blood Pressure 122/56 L 91/52 L Pulse Oximetry 94 94 Oxygen Delivery Method Room Air Room Air BMI result Body Mass Index 27.8 Labs Results: 01/22/22 08:07 02/11/22 08:06 Labs: Laboratory Results - last 48 hr 02/19/22 07:56 Absolute Neuts (auto) 5.0 Imaging Radiology Impressions: ITS Impressions Head CT 10/08/21 15:16 IMPRESSION: No acute intracranial pathology. Head CT 10/09/21 13:54 IMPRESSION: No acute intracranial pathology. Pelvic/Transvag US 10/13/21 09:24 IMPRESSION: Abnormally thickened endometrium for a postmenopausal patient measuring 0.9 cm. 3 x 2.7 x 3.7 cm mass in the posterior cervix. This may represent a fibroid. Slightly thickened trabeculated bladder wall. Head CT 10/20/21 08:18 IMPRESSION: No acute intracranial pathology. This critical result was discussed with Dr. Chu at 8:30 hours on 10/20/2021. It was ascertained that the content and urgency of the report was understood at the time of direct communication. Head CT 11/20/21 19:29 IMPRESSION: No acute intracranial pathology. Medications Medications Current Medications Acetaminophen (Acetaminophen 325 Mg Tablet) 650 mg PO Q6H PRN PRN Reason: Headache/Pain Mild Scale (1-3) Last Admin: 02/17/22 17:36 Dose: 650 mg Al Hydroxide/Mg Hydroxide (Magnesium Hydrox/Alum Hydrox 30 Ml Oral.Susp) 30 ml PO Q6H PRN PRN Reason: Heartburn/Nausea Apixaban (Apixaban 5 Mg Tablet) 5 mg PO BID [facility] Last Admin: 02/19/22 10:03 Dose: 5 mg Benztropine Mesylate (Benztropine Mesylate 1 Mg Tablet) 1 mg PO BID [facility] Last Admin: 02/19/22 10:02 Dose: 1 mg Bisacodyl (Bisacodyl 10 Mg Supp.Rect) 10 mg [place] DAILY PRN PRN Reason: Constipation Last Admin: 12/16/21 04:01 Dose: 10 mg Clotrimazole (Clotrimazole 1 % Cream 15 Gm Tube) 1 appl TOPICAL BID [facility]; Protocol Last Admin: 02/19/22 10:06 Dose: Not Given Clozapine (Clozapine 100 Mg Tablet) 100 mg PO DAILY [facility] Last Admin: 02/19/22 10:03 Dose: 100 mg Clozapine (Clozapine 100 Mg Tablet) 300 mg PO BEDTIME [facility] Last Admin: 02/18/22 22:24 Dose: 300 mg Clozapine (Clozapine 100 Mg Tablet) 100 mg PO DAILY@1700 [facility] Last Admin: 02/18/22 18:06 Dose: 100 mg Desmopressin Acetate (Desmopressin Acetate 0.2 Mg Tablet) 0.2 mg PO BID [facility] Last Admin: 02/19/22 10:02 Dose: 0.2 mg Docusate Sodium (Docusate Sodium 100 Mg Capsule) 100 mg PO BID [facility] Last Admin: 02/19/22 10:03 Dose: 100 mg Haloperidol (Haloperidol 5 Mg Tablet) 5 mg PO BID [facility] Last Admin: 02/19/22 10:03 Dose: 5 mg Hydrochlorothiazide (Hydrochlorothiazide 25 Mg Tablet) 25 mg PO DAILY [facility]; Protocol Last Admin: 02/19/22 10:02 Dose: 25 mg Hydroxyzine HCl (Hydroxyzine Hcl 25 Mg Tablet) 25 mg PO BEDTIME PRN PRN Reason: Anxiety Last Admin: 02/15/22 22:50 Dose: 25 mg Hydroxyzine HCl (Hydroxyzine Hcl 25 Mg Tablet) 25 mg PO BID PRN PRN Reason: Anxiety Last Admin: 01/16/22 15:10 Dose: 25 mg [place] Carbonate (Em[place]ium Carbonate 300 Mg Capsule) 300 mg PO BID [facility] Last Admin: 02/19/22 10:02 Dose: 300 mg Loperamide HCl (Loperamide Hcl 2 Mg Capsule) 4 mg PO Q4H PRN PRN Reason: Diarrhea Last Admin: 11/01/21 17:04 Dose: 4 mg Magnesium Hydroxide (Milk Of Magnesia 30 Ml Oral.Susp) 30 ml PO DAILY PRN PRN Reason: Constipation Last Admin: 01/30/22 22:11 Dose: 30 ml Mirtazapine (Mirtazapine 15 Mg Tablet) 15 mg PO BEDTIME [facility] Last Admin: 02/18/22 22:25 Dose: 15 mg Olanzapine (Olanzapine 10 Mg Vial) 5 mg IM STAT PRN PRN Reason: refusal of Clozaril PO Polyethylene Glycol (Polyethylene Glycol 3350 17 Gm Powd.Pack) 17 gm PO BID [facility] Last Admin: 02/19/22 10:04 Dose: 17 gm Potassium Chloride (Potassium Chloride Er 10 Meq Capsule.Er) 40 meq PO BID [facility] Last Admin: 02/19/22 10:06 Dose: Not Given Senna (Sennosides 8.6 Mg Tablet) 8.6 mg PO BEDTIME [facility] Last Admin: 02/18/22 22:25 Dose: 8.6 mg Trazodone HCl (Trazodone Hcl 50 Mg Tablet) 50 mg PO BEDTIME PRN PRN Reason: Insomnia Last Admin: 02/15/22 22:50 Dose: 50 mg Trolamine Salicylate/Aloe Vera (Trolamine Salicylate 10%/Aloe Cream 35.4 Gm) 1 appl TOPICAL TID PRN PRN Reason: neck pain Last Admin: 02/02/22 22:34 Dose: 1 appl Allergies Allergies Allergy/AdvReac Type Severity Reaction Status Date / Time No Known Allergies Allergy Unverified 05/01/20 19:42 [No Known Allergies*] Assessment & Plan Assessment & Plan (1) Schizophrenia, paranoid, chronic with acute exacerbation: Status: Acute Code(s): F20.0 - Paranoid schizophrenia (2) Hypertension: Status: Acute Code(s): I10 - Essential (primary) hypertension (3) Dementia: Status: Acute Code(s): F03.90 - Unspecified dementia without behavioral disturbance Plan Elderly female with a long history of schizoaffective disorder bipolar type who was admitted into the facility for exacerbation of psychosis and mood lability. The patient is on Clozaril and apparently she has not been fully compliant with treatment. 11/21 slipped, hit head on 11/20, head CT reviewed and unremarkable. We did a MOCA and she is technically demented at this moment Plan 1. The patient at this moment is on 3 psychotics, Clozaril , Haldol and Invega Sustenna. 2. Discontinue Haldol 5 mg IM if the patient refuses Clozaril and replace with Zyprexa. 3. Lower total Clozaril to 500 mg a day. We will not continue with Invega Sustenna sings there is no improvement with 3 antipsychotics. We will keep her on Clozaril and Haldol p.o.. 4. Waiting for placement I spent ___20___ minutes with the patient and/or on the patient floor today, greater than?50% of which was spent counseling/coordinating care. Reason for contiued inpatient stay Substantial Risk for: inability to function, rapid decompensation and med/psych decompensation
[2022-02-19 18:00] VITALS: BP 123/82; PULSE 94; RESP 16; TEMP 37; O2SAT 99
[2022-02-19] MEDS: OLANZapine 10 MG VIAL 5 MG IM (18:12)
[2022-02-19] MEDS: Clotrimazole 1 % Cream 15 GM TUBE 1 APPL TOPICAL (20:43)
[2022-02-19] MEDS: Mirtazapine 15 MG TABLET PO (20:44)
[2022-02-19] MEDS: cloZAPine 100 MG TABLET 300 MG PO (20:44)
[2022-02-19] MEDS: Sennosides 8.6 MG TABLET PO (20:52)
[2022-02-19] MEDS: traZODone HCL 50 MG TABLET PO (21:44)
[2022-02-20 10:30] VITALS: BP 103/61; PULSE 90; RESP 16; TEMP 36.7; O2SAT 98
[2022-02-20] MEDS: Desmopressin Acetate 0.2 MG TABLET PO ×2 (10:30→20:01)
[2022-02-20] MEDS: Lithium Carbonate 300 MG CAPSULE PO ×2 (10:30→20:01)
[2022-02-20] MEDS: Benztropine Mesylate 1 MG TABLET PO ×2 (10:31→20:01)
[2022-02-20] MEDS: Apixaban 5 MG TABLET PO ×2 (10:31→20:00)
[2022-02-20] MEDS: hydroCHLOROthiazide 25 MG TABLET PO (10:32)
[2022-02-20] MEDS: HaloperidoL 5 MG TABLET PO ×2 (10:32→20:01)
[2022-02-20] MEDS: cloZAPine 100 MG TABLET PO ×2 (10:32→16:09)
[2022-02-20] MEDS: Docusate Sodium 100 MG CAPSULE PO ×2 (10:33→20:01)
[2022-02-20] MEDS: Clotrimazole 1 % Cream 15 GM TUBE 1 APPL TOPICAL ×2 (10:34→19:59)
[2022-02-20] MEDS: polyethylene glycoL 3350 17 GM POWD.PACK PO ×2 (10:34→19:59)
--- NOTE | 2022-02-20 12:03 | P.PNPSI_ITS ---
Subjective Subjective Date of Service: 02/20/22 Reason For Visit: psychotic disorder Interim History: pt seen in her room with nurse feeding her yogurt. word-finding difficulties, low frustration tolerance, intermittently yelling out when she could not express herself. course tremor, agreeable to have her lithium level checked. Mental Status Exam Mental Status Exam Narrative: adequately dressed. cooperative. course hand tremor in right hand. no PMA/PMR. speech halting, decr in rate and amount. intermittent loud vocalizations of frustration. apparent thought blocking. affect hyper-intense and constricted. mood not assessed. no SI/HI/AVH expressed. Diagnostics Vital Signs (24Hr): Vital Signs - 24 hr 02/19/22 18:00 Temperature 98.6 F Pulse Rate 94 Respiratory Rate 16 Blood Pressure 123/82 Pulse Oximetry 99 Oxygen Delivery Method Room Air BMI result Body Mass Index 27.8 Labs Results: 01/22/22 08:07 02/11/22 08:06 Labs: Laboratory Results - last 48 hr 02/19/22 07:56 Absolute Neuts (auto) 5.0 Imaging Radiology Impressions: ITS Impressions Head CT 10/08/21 15:16 IMPRESSION: No acute intracranial pathology. Head CT 10/09/21 13:54 IMPRESSION: No acute intracranial pathology. Pelvic/Transvag US 10/13/21 09:24 IMPRESSION: Abnormally thickened endometrium for a postmenopausal patient measuring 0.9 cm. 3 x 2.7 x 3.7 cm mass in the posterior cervix. This may represent a fibroid. Slightly thickened trabeculated bladder wall. Head CT 10/20/21 08:18 IMPRESSION: No acute intracranial pathology. This critical result was discussed with Dr. Chu at 8:30 hours on 10/20/2021. It was ascertained that the content and urgency of the report was understood at the time of direct communication. Head CT 11/20/21 19:29 IMPRESSION: No acute intracranial pathology. Medications Medications Current Medications Acetaminophen (Acetaminophen 325 Mg Tablet) 650 mg PO Q6H PRN PRN Reason: Headache/Pain Mild Scale (1-3) Last Admin: 02/17/22 17:36 Dose: 650 mg Al Hydroxide/Mg Hydroxide (Magnesium Hydrox/Alum Hydrox 30 Ml Oral.Susp) 30 ml PO Q6H PRN PRN Reason: Heartburn/Nausea Apixaban (Apixaban 5 Mg Tablet) 5 mg PO BID [facility] Last Admin: 02/20/22 10:31 Dose: 5 mg Benztropine Mesylate (Benztropine Mesylate 1 Mg Tablet) 1 mg PO BID [facility] Last Admin: 02/20/22 10:31 Dose: 1 mg Bisacodyl (Bisacodyl 10 Mg Supp.Rect) 10 mg [place] DAILY PRN PRN Reason: Constipation Last Admin: 12/16/21 04:01 Dose: 10 mg Clotrimazole (Clotrimazole 1 % Cream 15 Gm Tube) 1 appl TOPICAL BID [facility]; Protocol Last Admin: 02/20/22 10:34 Dose: 1 appl Clozapine (Clozapine 100 Mg Tablet) 100 mg PO DAILY [facility] Last Admin: 02/20/22 10:32 Dose: 100 mg Clozapine (Clozapine 100 Mg Tablet) 300 mg PO BEDTIME [facility] Last Admin: 02/19/22 20:44 Dose: 300 mg Clozapine (Clozapine 100 Mg Tablet) 100 mg PO DAILY@1700 [facility] Last Admin: 02/19/22 18:14 Dose: Not Given Desmopressin Acetate (Desmopressin Acetate 0.2 Mg Tablet) 0.2 mg PO BID [facility] Last Admin: 02/20/22 10:30 Dose: 0.2 mg Docusate Sodium (Docusate Sodium 100 Mg Capsule) 100 mg PO BID [facility] Last Admin: 02/20/22 10:33 Dose: 100 mg Haloperidol (Haloperidol 5 Mg Tablet) 5 mg PO BID [facility] Last Admin: 02/20/22 10:32 Dose: 5 mg Hydrochlorothiazide (Hydrochlorothiazide 25 Mg Tablet) 25 mg PO DAILY [facility]; Protocol Last Admin: 02/20/22 10:32 Dose: 25 mg Hydroxyzine HCl (Hydroxyzine Hcl 25 Mg Tablet) 25 mg PO BEDTIME PRN PRN Reason: Anxiety Last Admin: 02/15/22 22:50 Dose: 25 mg Hydroxyzine HCl (Hydroxyzine Hcl 25 Mg Tablet) 25 mg PO BID PRN PRN Reason: Anxiety Last Admin: 01/16/22 15:10 Dose: 25 mg [place] Carbonate ([place] Carbonate 300 Mg Capsule) 300 mg PO BID [facility] Last Admin: 02/20/22 10:30 Dose: 300 mg Loperamide HCl (Loperamide Hcl 2 Mg Capsule) 4 mg PO Q4H PRN PRN Reason: Diarrhea Last Admin: 11/01/21 17:04 Dose: 4 mg Magnesium Hydroxide (Milk Of Magnesia 30 Ml Oral.Susp) 30 ml PO DAILY PRN PRN Reason: Constipation Last Admin: 01/30/22 22:11 Dose: 30 ml Mirtazapine (Mirtazapine 15 Mg Tablet) 15 mg PO BEDTIME [facility] Last Admin: 02/19/22 20:44 Dose: 15 mg Olanzapine (Olanzapine 10 Mg Vial) 5 mg IM STAT PRN PRN Reason: refusal of Clozaril PO Last Admin: 02/19/22 18:12 Dose: 5 mg Polyethylene Glycol (Polyethylene Glycol 3350 17 Gm Powd.Pack) 17 gm PO BID [facility] Last Admin: 02/20/22 10:34 Dose: 17 gm Potassium Chloride (Potassium Chloride Er 10 Meq Capsule.Er) 40 meq PO BID [facility] Last Admin: 02/20/22 10:33 Dose: 40 meq Senna (Sennosides 8.6 Mg Tablet) 8.6 mg PO BEDTIME [facility] Last Admin: 02/19/22 20:52 Dose: 8.6 mg Trazodone HCl (Trazodone Hcl 50 Mg Tablet) 50 mg PO BEDTIME PRN PRN Reason: Insomnia Last Admin: 02/19/22 21:44 Dose: 50 mg Trolamine Salicylate/Aloe Vera (Trolamine Salicylate 10%/Aloe Cream 35.4 Gm) 1 appl TOPICAL TID PRN PRN Reason: neck pain Last Admin: 02/02/22 22:34 Dose: 1 appl Allergies Allergies Allergy/AdvReac Type Severity Reaction Status Date / Time No Known Allergies Allergy Unverified 05/01/20 19:42 [No Known Allergies*] Assessment & Plan Assessment & Plan (1) Schizophrenia, paranoid, chronic with acute exacerbation: Status: Acute Code(s): F20.0 - Paranoid schizophrenia (2) Hypertension: Status: Acute Code(s): I10 - Essential (primary) hypertension (3) Dementia: Status: Acute Code(s): F03.90 - Unspecified dementia without behavioral disturbance Plan Elderly female with a long history of schizoaffective disorder bipolar type who was admitted into the facility for exacerbation of psychosis and mood lability. The patient is on Clozaril and apparently she has not been fully compliant with treatment. 11/21 slipped, hit head on 11/20, head CT reviewed and unremarkable. We did a MOCA and she is technically demented at this moment Plan 1. The patient at this moment is on 3 psychotics, Clozaril , Haldol and Invega Sustenna. 2. Discontinue Haldol 5 mg IM if the patient refuses Clozaril and replace with Zyprexa. 3. Lower total Clozaril to 500 mg a day. We will not continue with Invega Sustenna sings there is no improvement with 3 antipsychotics. We will keep her on Clozaril and Haldol p.o.. 4. Waiting for placement 02/20: no change in mgmt. check lithium level and BMP this evening. I spent ___15___ minutes with the patient and/or on the patient floor today, greater than?50% of which was spent counseling/coordinating care. Reason for contiued inpatient stay Substantial Risk for: inability to function and rapid decompensation
[2022-02-20 18:00] VITALS: BP 127/61; PULSE 88; RESP 17; TEMP 37; O2SAT 97
[2022-02-20] MEDS: Acetaminophen 325 MG TABLET 650 MG PO (19:59)
[2022-02-20] MEDS: traZODone HCL 50 MG TABLET PO (20:00)
[2022-02-20] MEDS: Mirtazapine 15 MG TABLET PO (20:01)
[2022-02-20] MEDS: cloZAPine 100 MG TABLET 300 MG PO (20:01)
[2022-02-20] MEDS: Sennosides 8.6 MG TABLET PO (20:02)
[2022-02-20 20:19] LABS: Lithium 0.78 mmol/L (0.60-1.20)
[2022-02-20 20:28] LABS: Anion Gap 11 (12-20); Blood Urea Nitrogen 16 mg/dL (9-16); Calcium 10.9 mg/dL (8.4-10.2); Carbon Dioxide 25 mmol/L (22-29); Chloride 106 mmol/L (96-108); Creatinine Clr Calc Pharmacy 52.6; Estimated Glomerular Filt Rate 60; Glucose Random 100 mg/dL (60-115); Potassium 4.3 mmol/L (3.3-5.1); Sodium 138 mmol/L (135-145)
[2022-02-21 10:00] VITALS: BP 128/92; PULSE 86; RESP 16; TEMP 36.7; O2SAT 96
[2022-02-21] MEDS: Desmopressin Acetate 0.2 MG TABLET PO ×2 (10:03→20:02)
[2022-02-21] MEDS: hydroCHLOROthiazide 25 MG TABLET PO (10:03)
[2022-02-21] MEDS: Apixaban 5 MG TABLET PO ×2 (10:03→20:01)
[2022-02-21] MEDS: Lithium Carbonate 300 MG CAPSULE PO ×2 (10:04→20:02)
[2022-02-21] MEDS: HaloperidoL 5 MG TABLET PO ×2 (10:04→20:02)
[2022-02-21] MEDS: cloZAPine 100 MG TABLET PO ×2 (10:04→16:51)
[2022-02-21] MEDS: Benztropine Mesylate 1 MG TABLET PO ×2 (10:04→20:01)
[2022-02-21] MEDS: Docusate Sodium 100 MG CAPSULE PO ×2 (10:04→20:02)
[2022-02-21] MEDS: polyethylene glycoL 3350 17 GM POWD.PACK PO ×2 (10:05→20:01)
[2022-02-21] MEDS: Clotrimazole 1 % Cream 15 GM TUBE 1 APPL TOPICAL ×2 (10:56→20:01)
--- NOTE | 2022-02-21 12:13 | P.PNPSI_ITS ---
Subjective Subjective Date of Service: 02/21/22 Reason For Visit: psychotic disorder Interim History: pt appears distraught, tense. intermittently yelling out in anguish. on being asked if there is anything MD can do for her today, she says, no, you can't help me. per staff, pt doing a lot of yelling today. showered. taking meds except for K+. lithium level 0.78, renal fxn adequate. Mental Status Exam Mental Status Exam Narrative: adequately dressed. cooperative. no PMA/PMR. speech halting, decr in rate and amount. intermittent loud vocalizations of frustration. apparent thought blocking. affect hyper-intense and constricted. mood not assessed. no SI/HI/AVH expressed. Diagnostics Vital Signs (24Hr): Vital Signs - 24 hr 02/20/22 18:00 02/21/22 10:00 Temperature 98.6 F 98.0 F Pulse Rate 88 86 Respiratory Rate 17 16 Blood Pressure 127/61 128/92 H Pulse Oximetry 97 96 Oxygen Delivery Method Room Air Room Air BMI result Body Mass Index 27.8 Labs Results: 01/22/22 08:07 02/20/22 19:35 Labs: Laboratory Results - last 48 hr 02/20/22 02/20/22 19:35 19:35 Sodium 138 Potassium 4.3 Chloride 106 Carbon Dioxide 25 Anion Gap 11 L BUN 16 Creatinine 0.93 Estim Creat Clear Calc 52.6 Estimated GFR 60 Random Glucose 100 Calcium 10.9 H Rarden 0.78 Imaging Radiology Impressions: ITS Impressions Head CT 10/08/21 15:16 IMPRESSION: No acute intracranial pathology. Head CT 10/09/21 13:54 IMPRESSION: No acute intracranial pathology. Pelvic/Transvag US 10/13/21 09:24 IMPRESSION: Abnormally thickened endometrium for a postmenopausal patient measuring 0.9 cm. 3 x 2.7 x 3.7 cm mass in the posterior cervix. This may represent a fibroid. Slightly thickened trabeculated bladder wall. Head CT 10/20/21 08:18 IMPRESSION: No acute intracranial pathology. This critical result was discussed with Dr. Chu at 8:30 hours on 10/20/2021. It was ascertained that the content and urgency of the report was understood at the time of direct communication. Head CT 11/20/21 19:29 IMPRESSION: No acute intracranial pathology. Medications Medications Current Medications Acetaminophen (Acetaminophen 325 Mg Tablet) 650 mg PO Q6H PRN PRN Reason: Headache/Pain Mild Scale (1-3) Last Admin: 02/20/22 19:59 Dose: 650 mg Al Hydroxide/Mg Hydroxide (Magnesium Hydrox/Alum Hydrox 30 Ml Oral.Susp) 30 ml PO Q6H PRN PRN Reason: Heartburn/Nausea Apixaban (Apixaban 5 Mg Tablet) 5 mg PO BID [facility] Last Admin: 02/21/22 10:03 Dose: 5 mg Benztropine Mesylate (Benztropine Mesylate 1 Mg Tablet) 1 mg PO BID [facility] Last Admin: 02/21/22 10:04 Dose: 1 mg Bisacodyl (Bisacodyl 10 Mg Supp.Rect) 10 mg [place] DAILY PRN PRN Reason: Constipation Last Admin: 12/16/21 04:01 Dose: 10 mg Clotrimazole (Clotrimazole 1 % Cream 15 Gm Tube) 1 appl TOPICAL BID [facility]; Protocol Last Admin: 02/21/22 10:56 Dose: 1 appl Clozapine (Clozapine 100 Mg Tablet) 100 mg PO DAILY [facility] Last Admin: 02/21/22 10:04 Dose: 100 mg Clozapine (Clozapine 100 Mg Tablet) 300 mg PO BEDTIME [facility] Last Admin: 02/20/22 20:01 Dose: 300 mg Clozapine (Clozapine 100 Mg Tablet) 100 mg PO DAILY@1700 [facility] Last Admin: 02/20/22 16:09 Dose: 100 mg Desmopressin Acetate (Desmopressin Acetate 0.2 Mg Tablet) 0.2 mg PO BID [facility] Last Admin: 02/21/22 10:03 Dose: 0.2 mg Docusate Sodium (Docusate Sodium 100 Mg Capsule) 100 mg PO BID [facility] Last Admin: 02/21/22 10:04 Dose: 100 mg Haloperidol (Haloperidol 5 Mg Tablet) 5 mg PO BID [facility] Last Admin: 02/21/22 10:04 Dose: 5 mg Hydrochlorothiazide (Hydrochlorothiazide 25 Mg Tablet) 25 mg PO DAILY [facility]; Protocol Last Admin: 02/21/22 10:03 Dose: 25 mg Hydroxyzine HCl (Hydroxyzine Hcl 25 Mg Tablet) 25 mg PO BEDTIME PRN PRN Reason: Anxiety Last Admin: 02/15/22 22:50 Dose: 25 mg Hydroxyzine HCl (Hydroxyzine Hcl 25 Mg Tablet) 25 mg PO BID PRN PRN Reason: Anxiety Last Admin: 01/16/22 15:10 Dose: 25 mg [place] Carbonate (Rarden Carbonate 300 Mg Capsule) 300 mg PO BID [facility] Last Admin: 02/21/22 10:04 Dose: 300 mg Loperamide HCl (Loperamide Hcl 2 Mg Capsule) 4 mg PO Q4H PRN PRN Reason: Diarrhea Last Admin: 11/01/21 17:04 Dose: 4 mg Magnesium Hydroxide (Milk Of Magnesia 30 Ml Oral.Susp) 30 ml PO DAILY PRN PRN Reason: Constipation Last Admin: 01/30/22 22:11 Dose: 30 ml Mirtazapine (Mirtazapine 15 Mg Tablet) 15 mg PO BEDTIME [facility] Last Admin: 02/20/22 20:01 Dose: 15 mg Olanzapine (Olanzapine 10 Mg Vial) 5 mg IM STAT PRN PRN Reason: refusal of Clozaril PO Last Admin: 02/19/22 18:12 Dose: 5 mg Polyethylene Glycol (Polyethylene Glycol 3350 17 Gm Powd.Pack) 17 gm PO BID [facility] Last Admin: 02/21/22 10:05 Dose: 17 gm Potassium Chloride (Potassium Chloride Er 10 Meq Capsule.Er) 40 meq PO BID [facility] Last Admin: 02/21/22 10:55 Dose: Not Given Senna (Sennosides 8.6 Mg Tablet) 8.6 mg PO BEDTIME [facility] Last Admin: 02/20/22 20:02 Dose: 8.6 mg Trazodone HCl (Trazodone Hcl 50 Mg Tablet) 50 mg PO BEDTIME PRN PRN Reason: Insomnia Last Admin: 02/20/22 20:00 Dose: 50 mg Trolamine Salicylate/Aloe Vera (Trolamine Salicylate 10%/Aloe Cream 35.4 Gm) 1 appl TOPICAL TID PRN PRN Reason: neck pain Last Admin: 02/02/22 22:34 Dose: 1 appl Allergies Allergies Allergy/AdvReac Type Severity Reaction Status Date / Time No Known Allergies Allergy Unverified 05/01/20 19:42 [No Known Allergies*] Assessment & Plan Assessment & Plan (1) Schizophrenia, paranoid, chronic with acute exacerbation: Status: Acute Code(s): F20.0 - Paranoid schizophrenia (2) Hypertension: Status: Acute Code(s): I10 - Essential (primary) hypertension (3) Dementia: Status: Acute Code(s): F03.90 - Unspecified dementia without behavioral disturbance Plan Elderly female with a long history of schizoaffective disorder bipolar type who was admitted into the facility for exacerbation of psychosis and mood lability. The patient is on Clozaril and apparently she has not been fully compliant with treatment. 11/21 slipped, hit head on 11/20, head CT reviewed and unremarkable. We did a MOCA and she is technically demented at this moment Plan 1. The patient at this moment is on 3 psychotics, Clozaril , Haldol and Invega Sustenna. 2. Discontinue Haldol 5 mg IM if the patient refuses Clozaril and replace with Zyprexa. 3. Lower total Clozaril to 500 mg a day. We will not continue with Invega Sustenna sings there is no improvement with 3 antipsychotics. We will keep her on Clozaril and Haldol p.o.. 4. Waiting for placement 02/20: no change in mgmt. check lithium level and BMP this evening. 02/21: no change in mgmt. lithium level 0.78, renal fxn adequate. I spent __15____ minutes with the patient and/or on the patient floor today, greater than?50% of which was spent counseling/coordinating care. Reason for contiued inpatient stay Substantial Risk for: inability to function and rapid decompensation
[2022-02-21] MEDS: hydrOXYzine HCL 25 MG TABLET PO (17:41)
--- NOTE | 2022-02-21 17:52 | PC.NURSE ---
Placed self on floor in community area at 1715 while standing from chair. Went down on right knee per report from sitting position and then sat on buttocks. Dr Nails on unit, informed and spoke to pt for her report. No apparent injuries noted. Pt denies discomfort. VS 98.1-85-16 134/77. Pt responding loudly and frequently to internal stimuli prior. Accepted Hydroxyzine 25mg po at 1741 for anxiety with effects pending.
[2022-02-21 18:00] VITALS: BP 134/77; PULSE 85; RESP 16; TEMP 36.7; O2SAT 97
[2022-02-21] MEDS: cloZAPine 100 MG TABLET 300 MG PO (20:01)
[2022-02-21] MEDS: Mirtazapine 15 MG TABLET PO (20:02)
[2022-02-21] MEDS: Sennosides 8.6 MG TABLET PO (20:03)
[2022-02-21] MEDS: Acetaminophen 325 MG TABLET 650 MG PO (20:03)
[2022-02-22] MEDS: traZODone HCL 50 MG TABLET PO (02:10)
[2022-02-22] MEDS: hydrOXYzine HCL 25 MG TABLET PO (02:10)
[2022-02-22 06:00] VITALS: BP 113/57; PULSE 87; RESP 17; TEMP 36.6; O2SAT 96
[2022-02-22] MEDS: cloZAPine 100 MG TABLET PO ×2 (11:47→17:07)
[2022-02-22] MEDS: Apixaban 5 MG TABLET PO ×2 (11:47→21:48)
[2022-02-22] MEDS: HaloperidoL 5 MG TABLET PO ×2 (11:47→21:47)
[2022-02-22] MEDS: Benztropine Mesylate 1 MG TABLET PO ×2 (11:47→21:47)
[2022-02-22] MEDS: hydroCHLOROthiazide 25 MG TABLET PO (11:47)
[2022-02-22] MEDS: Lithium Carbonate 300 MG CAPSULE PO ×2 (11:48→21:47)
[2022-02-22] MEDS: Desmopressin Acetate 0.2 MG TABLET PO ×2 (11:48→21:38)
[2022-02-22] MEDS: Docusate Sodium 100 MG CAPSULE PO ×2 (11:48→21:47)
[2022-02-22] MEDS: polyethylene glycoL 3350 17 GM POWD.PACK PO (11:48)
--- NOTE | 2022-02-22 15:37 | HO.PSYCHPN ---
Subjective Subjective Date of Service: 02/22/22 Reason For Visit: psychotic disorder Subjective Notes: Conditional Voluntary Interim History: the nursing staff reported no changes in her mental status, she has a sporadic episodes of yelling and responding to internal stimuli but she is easily redirectable apparent she takes medications went a lot of encouragement at times but mostly she is highly compliant. On interview the patient reported she was hearing some voices she felt uncomfortable and requested for her Clozaril earlier. Mental Status Exam Mental Status Exam Patient Appearance: Appropriate Patient Orientation: Person and Situation Level of Consciousness: Awake Patient Behavior: Guarded and Cooperative Mood Description: Withdrawn Affect Description: Labile Patient Cognition Impaired: Yes Ability to Follow Directions: Good Speech Pattern: Clear Hallucinations: Auditory and Visual Delusions: Paranoid Ideation Thought Process: Distracted Judgement: Fair Diagnostics Vital Signs (24Hr): Vital Signs - 24 hr 02/21/22 18:00 02/22/22 06:00 Temperature 98.1 F 97.8 F Pulse Rate 85 87 Respiratory Rate 16 17 Blood Pressure 134/77 113/57 L Pulse Oximetry 97 96 Oxygen Delivery Method Room Air Room Air BMI result Body Mass Index 27.8 Labs Results: 01/22/22 08:07 02/20/22 19:35 Labs: Laboratory Results - last 48 hr 02/20/22 02/20/22 19:35 19:35 Sodium 138 Potassium 4.3 Chloride 106 Carbon Dioxide 25 Anion Gap 11 L BUN 16 Creatinine 0.93 Estim Creat Clear Calc 52.6 Estimated GFR 60 Random Glucose 100 Calcium 10.9 H [place] 0.78 Imaging Radiology Impressions: ITS Impressions Head CT 10/08/21 15:16 IMPRESSION: No acute intracranial pathology. Head CT 10/09/21 13:54 IMPRESSION: No acute intracranial pathology. Pelvic/Transvag US 10/13/21 09:24 IMPRESSION: Abnormally thickened endometrium for a postmenopausal patient measuring 0.9 cm. 3 x 2.7 x 3.7 cm mass in the posterior cervix. This may represent a fibroid. Slightly thickened trabeculated bladder wall. Head CT 10/20/21 08:18 IMPRESSION: No acute intracranial pathology. This critical result was discussed with Dr. Chu at 8:30 hours on 10/20/2021. It was ascertained that the content and urgency of the report was understood at the time of direct communication. Head CT 11/20/21 19:29 IMPRESSION: No acute intracranial pathology. Medications Medications Current Medications Acetaminophen (Acetaminophen 325 Mg Tablet) 650 mg PO Q6H PRN PRN Reason: Headache/Pain Mild Scale (1-3) Last Admin: 02/21/22 20:03 Dose: 650 mg Al Hydroxide/Mg Hydroxide (Magnesium Hydrox/Alum Hydrox 30 Ml Oral.Susp) 30 ml PO Q6H PRN PRN Reason: Heartburn/Nausea Apixaban (Apixaban 5 Mg Tablet) 5 mg PO BID [facility] Last Admin: 02/22/22 11:47 Dose: 5 mg Benztropine Mesylate (Benztropine Mesylate 1 Mg Tablet) 1 mg PO BID [facility] Last Admin: 02/22/22 11:47 Dose: 1 mg Bisacodyl (Bisacodyl 10 Mg Supp.Rect) 10 mg [place] DAILY PRN PRN Reason: Constipation Last Admin: 12/16/21 04:01 Dose: 10 mg Clotrimazole (Clotrimazole 1 % Cream 15 Gm Tube) 1 appl TOPICAL BID [facility]; Protocol Last Admin: 02/22/22 12:15 Dose: Not Given Clotrimazole (Clotrimazole 1 % Cream 15 Gm Tube) 1 appl TOPICAL BID [facility]; Protocol Clozapine (Clozapine 100 Mg Tablet) 100 mg PO DAILY [facility] Last Admin: 02/22/22 11:47 Dose: 100 mg Clozapine (Clozapine 100 Mg Tablet) 300 mg PO BEDTIME [facility] Last Admin: 02/21/22 20:01 Dose: 300 mg Clozapine (Clozapine 100 Mg Tablet) 100 mg PO DAILY@1700 [facility] Last Admin: 02/21/22 16:51 Dose: 100 mg Desmopressin Acetate (Desmopressin Acetate 0.2 Mg Tablet) 0.2 mg PO BID [facility] Last Admin: 02/22/22 11:48 Dose: 0.2 mg Docusate Sodium (Docusate Sodium 100 Mg Capsule) 100 mg PO BID [facility] Last Admin: 02/22/22 11:48 Dose: 100 mg Haloperidol (Haloperidol 5 Mg Tablet) 5 mg PO BID [facility] Last Admin: 02/22/22 11:47 Dose: 5 mg Hydrochlorothiazide (Hydrochlorothiazide 25 Mg Tablet) 25 mg PO DAILY [facility]; Protocol Last Admin: 02/22/22 11:47 Dose: 25 mg Hydroxyzine HCl (Hydroxyzine Hcl 25 Mg Tablet) 25 mg PO BEDTIME PRN PRN Reason: Anxiety Last Admin: 02/22/22 02:10 Dose: 25 mg Hydroxyzine HCl (Hydroxyzine Hcl 25 Mg Tablet) 25 mg PO BID PRN PRN Reason: Anxiety Last Admin: 02/21/22 17:41 Dose: 25 mg [place] Carbonate ([place] Carbonate 300 Mg Capsule) 300 mg PO BID [facility] Last Admin: 02/22/22 11:48 Dose: 300 mg Loperamide HCl (Loperamide Hcl 2 Mg Capsule) 4 mg PO Q4H PRN PRN Reason: Diarrhea Last Admin: 11/01/21 17:04 Dose: 4 mg Magnesium Hydroxide (Milk Of Magnesia 30 Ml Oral.Susp) 30 ml PO DAILY PRN PRN Reason: Constipation Last Admin: 01/30/22 22:11 Dose: 30 ml Mirtazapine (Mirtazapine 15 Mg Tablet) 15 mg PO BEDTIME [facility] Last Admin: 02/21/22 20:02 Dose: 15 mg Olanzapine (Olanzapine 10 Mg Vial) 5 mg IM STAT PRN PRN Reason: refusal of Clozaril PO Last Admin: 02/19/22 18:12 Dose: 5 mg Polyethylene Glycol (Polyethylene Glycol 3350 17 Gm Powd.Pack) 17 gm PO BID [facility] Last Admin: 02/22/22 11:48 Dose: 17 gm Senna (Sennosides 8.6 Mg Tablet) 8.6 mg PO BEDTIME [facility] Last Admin: 02/21/22 20:03 Dose: 8.6 mg Trazodone HCl (Trazodone Hcl 50 Mg Tablet) 50 mg PO BEDTIME PRN PRN Reason: Insomnia Last Admin: 02/22/22 02:10 Dose: 50 mg Trolamine Salicylate/Aloe Vera (Trolamine Salicylate 10%/Aloe Cream 35.4 Gm) 1 appl TOPICAL TID PRN PRN Reason: neck pain Last Admin: 02/02/22 22:34 Dose: 1 appl Allergies Allergies Allergy/AdvReac Type Severity Reaction Status Date / Time No Known Allergies Allergy Unverified 05/01/20 19:42 [No Known Allergies*] Assessment & Plan Assessment & Plan (1) Schizophrenia, paranoid, chronic with acute exacerbation: Status: Acute Code(s): F20.0 - Paranoid schizophrenia (2) Hypertension: Status: Acute Code(s): I10 - Essential (primary) hypertension (3) Dementia: Status: Acute Code(s): F03.90 - Unspecified dementia without behavioral disturbance Plan Elderly female with a long history of schizoaffective disorder bipolar type who was admitted into the facility for exacerbation of psychosis and mood lability. The patient is on Clozaril and apparently she has not been fully compliant with treatment. 11/21 slipped, hit head on 11/20, head CT reviewed and unremarkable. We did a MOCA and she is technically demented at this moment Plan 1. The patient at this moment is on 3 psychotics, Clozaril , Haldol and Invega Sustenna. 2. Discontinue Haldol 5 mg IM if the patient refuses Clozaril and replace with Zyprexa. 3. Lower total Clozaril to 500 mg a day. We will not continue with Invega Sustenna sings there is no improvement with 3 antipsychotics. We will keep her on Clozaril and Haldol p.o.. 4. Waiting for placement I spent ___20___ minutes with the patient and/or on the patient floor today, greater than?50% of which was spent counseling/coordinating care. Reason for contiued inpatient stay Substantial Risk for: inability to function, rapid decompensation and med/psych decompensation
[2022-02-22 18:00] VITALS: BP 145/62; PULSE 96; TEMP 36.5; O2SAT 99
[2022-02-22] MEDS: Clotrimazole 1 % Cream 15 GM TUBE 1 APPL TOPICAL (21:33)
[2022-02-22] MEDS: cloZAPine 100 MG TABLET 300 MG PO (21:45)
[2022-02-22] MEDS: Sennosides 8.6 MG TABLET PO (21:47)
[2022-02-22] MEDS: Mirtazapine 15 MG TABLET PO (21:47)
[2022-02-23 07:45] VITALS: BP 98/50; PULSE 85; RESP 15; TEMP 36.3; O2SAT 95
[2022-02-23 10:25] LABS: COVID-19 Test Negative (Negative)
[2022-02-23] MEDS: hydroCHLOROthiazide 25 MG TABLET PO (12:32)
[2022-02-23] MEDS: polyethylene glycoL 3350 17 GM POWD.PACK PO ×2 (12:32→21:02)
[2022-02-23] MEDS: Apixaban 5 MG TABLET PO ×2 (12:32→20:09)
[2022-02-23] MEDS: Docusate Sodium 100 MG CAPSULE PO ×2 (12:33→21:02)
[2022-02-23] MEDS: cloZAPine 100 MG TABLET PO ×2 (12:33→18:07)
[2022-02-23] MEDS: HaloperidoL 5 MG TABLET PO ×2 (12:33→20:10)
[2022-02-23] MEDS: Lithium Carbonate 300 MG CAPSULE PO ×2 (12:33→20:09)
[2022-02-23] MEDS: Desmopressin Acetate 0.2 MG TABLET PO ×2 (12:33→20:09)
[2022-02-23] MEDS: Benztropine Mesylate 1 MG TABLET PO ×2 (12:33→20:10)
--- NOTE | 2022-02-23 14:21 | HO.PSYCHPN ---
Subjective Subjective Date of Service: 02/23/22 Reason For Visit: psychotic disorder Subjective Notes: Conditional Voluntary Interim History: the nursing staff reported that she has refused to go to groups, she was hearing voices last evening but she was able to be redirected. Today she reported that she was feeling a little anxious since she learned that the peer had COVID and she had COVID in this unit a few weeks ago. They stated that she should be concerned since she is already vaccinated and COVID-19 precautions are done. No new symptoms Medication Compliance: Yes Side effects from medications: No Attending Groups: Yes Mental Status Exam Mental Status Exam Patient Appearance: Appropriate Patient Orientation: Person and Situation Level of Consciousness: Appropriate Patient Behavior: Guarded Mood Description: Withdrawn Affect Description: Labile Patient Cognition Impaired: Yes Ability to Follow Directions: Good Speech Pattern: Clear Hallucinations: Auditory Delusions: Paranoid Ideation Thought Process: Distracted Thought Content: positive for [place] and positive for Poverty of Content Judgement: Fair Diagnostics Vital Signs (24Hr): Vital Signs - 24 hr 02/22/22 18:00 02/23/22 07:45 Temperature 97.7 F 97.3 F Pulse Rate 96 85 Respiratory Rate 15 Blood Pressure 145/62 H 98/50 L Pulse Oximetry 99 95 Oxygen Delivery Method Room Air Room Air BMI result Body Mass Index 27.8 Labs Results: 01/22/22 08:07 02/20/22 19:35 Labs: Laboratory Results - last 48 hr 02/23/22 09:35 COVID-19 ([facility]) Negative COVID-19 Clin Com See Note Imaging Radiology Impressions: ITS Impressions Head CT 10/08/21 15:16 IMPRESSION: No acute intracranial pathology. Head CT 10/09/21 13:54 IMPRESSION: No acute intracranial pathology. Pelvic/Transvag US 10/13/21 09:24 IMPRESSION: Abnormally thickened endometrium for a postmenopausal patient measuring 0.9 cm. 3 x 2.7 x 3.7 cm mass in the posterior cervix. This may represent a fibroid. Slightly thickened trabeculated bladder wall. Head CT 10/20/21 08:18 IMPRESSION: No acute intracranial pathology. This critical result was discussed with Dr. Chu at 8:30 hours on 10/20/2021. It was ascertained that the content and urgency of the report was understood at the time of direct communication. Head CT 11/20/21 19:29 IMPRESSION: No acute intracranial pathology. Medications Medications Current Medications Acetaminophen (Acetaminophen 325 Mg Tablet) 650 mg PO Q6H PRN PRN Reason: Headache/Pain Mild Scale (1-3) Last Admin: 02/21/22 20:03 Dose: 650 mg Al Hydroxide/Mg Hydroxide (Magnesium Hydrox/Alum Hydrox 30 Ml Oral.Susp) 30 ml PO Q6H PRN PRN Reason: Heartburn/Nausea Apixaban (Apixaban 5 Mg Tablet) 5 mg PO BID [facility] Last Admin: 02/23/22 12:32 Dose: 5 mg Benztropine Mesylate (Benztropine Mesylate 1 Mg Tablet) 1 mg PO BID [facility] Last Admin: 02/23/22 12:33 Dose: 1 mg Bisacodyl (Bisacodyl 10 Mg Supp.Rect) 10 mg [place] DAILY PRN PRN Reason: Constipation Last Admin: 12/16/21 04:01 Dose: 10 mg Clotrimazole (Clotrimazole 1 % Cream 15 Gm Tube) 1 appl TOPICAL BID [facility]; Protocol Last Admin: 02/23/22 13:22 Dose: Not Given Clotrimazole (Clotrimazole 1 % Cream 15 Gm Tube) 1 appl TOPICAL BID [facility]; Protocol Last Admin: 02/23/22 13:22 Dose: Not Given Clozapine (Clozapine 100 Mg Tablet) 100 mg PO DAILY [facility] Last Admin: 02/23/22 12:33 Dose: 100 mg Clozapine (Clozapine 100 Mg Tablet) 300 mg PO BEDTIME [facility] Last Admin: 02/22/22 21:45 Dose: 300 mg Clozapine (Clozapine 100 Mg Tablet) 100 mg PO DAILY@1700 [facility] Last Admin: 02/22/22 17:07 Dose: 100 mg Desmopressin Acetate (Desmopressin Acetate 0.2 Mg Tablet) 0.2 mg PO BID [facility] Last Admin: 02/23/22 12:33 Dose: 0.2 mg Docusate Sodium (Docusate Sodium 100 Mg Capsule) 100 mg PO BID [facility] Last Admin: 02/23/22 12:33 Dose: 100 mg Haloperidol (Haloperidol 5 Mg Tablet) 5 mg PO BID [facility] Last Admin: 02/23/22 12:33 Dose: 5 mg Hydrochlorothiazide (Hydrochlorothiazide 25 Mg Tablet) 25 mg PO DAILY [facility]; Protocol Last Admin: 02/23/22 12:32 Dose: 25 mg Hydroxyzine HCl (Hydroxyzine Hcl 25 Mg Tablet) 25 mg PO BEDTIME PRN PRN Reason: Anxiety Last Admin: 02/22/22 02:10 Dose: 25 mg Hydroxyzine HCl (Hydroxyzine Hcl 25 Mg Tablet) 25 mg PO BID PRN PRN Reason: Anxiety Last Admin: 02/21/22 17:41 Dose: 25 mg [place] Carbonate ([place] Carbonate 300 Mg Capsule) 300 mg PO BID [facility] Last Admin: 02/23/22 12:33 Dose: 300 mg Loperamide HCl (Loperamide Hcl 2 Mg Capsule) 4 mg PO Q4H PRN PRN Reason: Diarrhea Last Admin: 11/01/21 17:04 Dose: 4 mg Magnesium Hydroxide (Milk Of Magnesia 30 Ml Oral.Susp) 30 ml PO DAILY PRN PRN Reason: Constipation Last Admin: 01/30/22 22:11 Dose: 30 ml Mirtazapine (Mirtazapine 15 Mg Tablet) 15 mg PO BEDTIME [facility] Last Admin: 02/22/22 21:47 Dose: 15 mg Olanzapine (Olanzapine 10 Mg Vial) 5 mg IM STAT PRN PRN Reason: refusal of Clozaril PO Last Admin: 02/19/22 18:12 Dose: 5 mg Polyethylene Glycol (Polyethylene Glycol 3350 17 Gm Powd.Pack) 17 gm PO BID [facility] Last Admin: 02/23/22 12:32 Dose: 17 gm Senna (Sennosides 8.6 Mg Tablet) 8.6 mg PO BEDTIME [facility] Last Admin: 02/22/22 21:47 Dose: 8.6 mg Trazodone HCl (Trazodone Hcl 50 Mg Tablet) 50 mg PO BEDTIME PRN PRN Reason: Insomnia Last Admin: 02/22/22 02:10 Dose: 50 mg Trolamine Salicylate/Aloe Vera (Trolamine Salicylate 10%/Aloe Cream 35.4 Gm) 1 appl TOPICAL TID PRN PRN Reason: neck pain Last Admin: 02/02/22 22:34 Dose: 1 appl Allergies Allergies Allergy/AdvReac Type Severity Reaction Status Date / Time No Known Allergies Allergy Unverified 05/01/20 19:42 [No Known Allergies*] Assessment & Plan Assessment & Plan (1) Schizophrenia, paranoid, chronic with acute exacerbation: Status: Acute Code(s): F20.0 - Paranoid schizophrenia (2) Hypertension: Status: Acute Code(s): I10 - Essential (primary) hypertension (3) Dementia: Status: Acute Code(s): F03.90 - Unspecified dementia without behavioral disturbance Plan Elderly female with a long history of schizoaffective disorder bipolar type who was admitted into the facility for exacerbation of psychosis and mood lability. The patient is on Clozaril and apparently she has not been fully compliant with treatment. 11/21 slipped, hit head on 11/20, head CT reviewed and unremarkable. We did a MOCA and she is technically demented at this moment Plan 1. The patient at this moment is on 3 psychotics, Clozaril , Haldol and Invega Sustenna. 2. Discontinue Haldol 5 mg IM if the patient refuses Clozaril and replace with Zyprexa. 3. Lower total Clozaril to 500 mg a day. We will not continue with Invega Sustenna sings there is no improvement with 3 antipsychotics. We will keep her on Clozaril and Haldol p.o.. 4. Waiting for placement I spent ____20__ minutes with the patient and/or on the patient floor today, greater than?50% of which was spent counseling/coordinating care. Reason for contiued inpatient stay Substantial Risk for: inability to function, rapid decompensation and med/psych decompensation
[2022-02-23 19:50] VITALS: BP 106/62; PULSE 83; RESP 16; TEMP 36.6; O2SAT 94
[2022-02-23] MEDS: cloZAPine 100 MG TABLET 300 MG PO (20:09)
[2022-02-23] MEDS: Sennosides 8.6 MG TABLET PO (20:10)
[2022-02-23] MEDS: Mirtazapine 15 MG TABLET PO (20:10)
[2022-02-23] MEDS: Acetaminophen 325 MG TABLET 650 MG PO (20:15)
[2022-02-23] MEDS: traZODone HCL 50 MG TABLET PO (23:46)
[2022-02-24 07:40] VITALS: BP 111/57; PULSE 81; RESP 14; TEMP 36.6; O2SAT 95
[2022-02-24] MEDS: Apixaban 5 MG TABLET PO ×2 (11:40→20:21)
[2022-02-24] MEDS: Desmopressin Acetate 0.2 MG TABLET PO ×2 (11:40→20:21)
[2022-02-24] MEDS: Lithium Carbonate 300 MG CAPSULE PO ×2 (11:40→20:21)
[2022-02-24] MEDS: HaloperidoL 5 MG TABLET PO ×2 (11:40→20:21)
[2022-02-24] MEDS: cloZAPine 100 MG TABLET PO ×2 (11:40→16:24)
[2022-02-24] MEDS: Benztropine Mesylate 1 MG TABLET PO ×2 (11:41→20:21)
[2022-02-24] MEDS: polyethylene glycoL 3350 17 GM POWD.PACK PO (11:41)
[2022-02-24] MEDS: Docusate Sodium 100 MG CAPSULE PO (11:41)
[2022-02-24] MEDS: hydroCHLOROthiazide 25 MG TABLET PO (11:41)
[2022-02-24] MEDS: Clotrimazole 1 % Cream 15 GM TUBE 1 APPL TOPICAL ×2 (11:48→11:49)
--- NOTE | 2022-02-24 14:59 | P.PNPSI_ITS ---
Subjective Subjective Date of Service: 02/24/22 Reason For Visit: psychotic disorder Subjective Notes: Conditional Voluntary Interim History: The patient denies new symptoms, she had been fully med compliant no need of IM backup. On interview the patient looks confused but pleasant and easily redirectable. Mental Status Exam Mental Status Exam Patient Appearance: Well Grooomed Patient Orientation: Person and Situation Level of Consciousness: Awake Patient Behavior: Appropriate Mood Description: Withdrawn Affect Description: Calm Patient Cognition Impaired: Yes Ability to Follow Directions: Good Speech Pattern: Clear Hallucinations: Auditory and Visual Delusions: Paranoid Ideation Thought Content: positive for [place] Judgement: Fair Diagnostics Vital Signs (24Hr): Vital Signs - 24 hr 02/23/22 19:50 Temperature 97.9 F Pulse Rate 83 Respiratory Rate 16 Blood Pressure 106/62 Pulse Oximetry 94 Oxygen Delivery Method Room Air BMI result Body Mass Index 27.8 Labs Results: 01/22/22 08:07 02/20/22 19:35 Labs: Laboratory Results - last 48 hr 02/23/22 09:35 COVID-19 ([facility]) Negative COVID-19 Clin Com See Note Imaging Radiology Impressions: ITS Impressions Head CT 10/08/21 15:16 IMPRESSION: No acute intracranial pathology. Head CT 10/09/21 13:54 IMPRESSION: No acute intracranial pathology. Pelvic/Transvag US 10/13/21 09:24 IMPRESSION: Abnormally thickened endometrium for a postmenopausal patient measuring 0.9 cm. 3 x 2.7 x 3.7 cm mass in the posterior cervix. This may represent a fibroid. Slightly thickened trabeculated bladder wall. Head CT 10/20/21 08:18 IMPRESSION: No acute intracranial pathology. This critical result was discussed with Dr. Chu at 8:30 hours on 10/20/2021. It was ascertained that the content and urgency of the report was understood at the time of direct communication. Head CT 11/20/21 19:29 IMPRESSION: No acute intracranial pathology. Medications Medications Current Medications Acetaminophen (Acetaminophen 325 Mg Tablet) 650 mg PO Q6H PRN PRN Reason: Headache/Pain Mild Scale (1-3) Last Admin: 02/23/22 20:15 Dose: 650 mg Al Hydroxide/Mg Hydroxide (Magnesium Hydrox/Alum Hydrox 30 Ml Oral.Susp) 30 ml PO Q6H PRN PRN Reason: Heartburn/Nausea Apixaban (Apixaban 5 Mg Tablet) 5 mg PO BID [facility] Last Admin: 02/24/22 11:40 Dose: 5 mg Benztropine Mesylate (Benztropine Mesylate 1 Mg Tablet) 1 mg PO BID [facility] Last Admin: 02/24/22 11:41 Dose: 1 mg Bisacodyl (Bisacodyl 10 Mg Supp.Rect) 10 mg [place] DAILY PRN PRN Reason: Constipation Last Admin: 12/16/21 04:01 Dose: 10 mg Clotrimazole (Clotrimazole 1 % Cream 15 Gm Tube) 1 appl TOPICAL BID [facility]; Protocol Last Admin: 02/24/22 11:48 Dose: 1 appl Clotrimazole (Clotrimazole 1 % Cream 15 Gm Tube) 1 appl TOPICAL BID [facility]; Protocol Last Admin: 02/24/22 11:49 Dose: 1 appl Clozapine (Clozapine 100 Mg Tablet) 100 mg PO DAILY [facility] Last Admin: 02/24/22 11:40 Dose: 100 mg Clozapine (Clozapine 100 Mg Tablet) 300 mg PO BEDTIME [facility] Last Admin: 02/23/22 20:09 Dose: 300 mg Clozapine (Clozapine 100 Mg Tablet) 100 mg PO DAILY@1700 [facility] Last Admin: 02/23/22 18:07 Dose: 100 mg Desmopressin Acetate (Desmopressin Acetate 0.2 Mg Tablet) 0.2 mg PO BID [facility] Last Admin: 02/24/22 11:40 Dose: 0.2 mg Docusate Sodium (Docusate Sodium 100 Mg Capsule) 100 mg PO BID [facility] Last Admin: 02/24/22 11:41 Dose: 100 mg Haloperidol (Haloperidol 5 Mg Tablet) 5 mg PO BID [facility] Last Admin: 02/24/22 11:40 Dose: 5 mg Hydrochlorothiazide (Hydrochlorothiazide 25 Mg Tablet) 25 mg PO DAILY [facility]; Protocol Last Admin: 02/24/22 11:41 Dose: 25 mg Hydroxyzine HCl (Hydroxyzine Hcl 25 Mg Tablet) 25 mg PO BEDTIME PRN PRN Reason: Anxiety Last Admin: 02/22/22 02:10 Dose: 25 mg Hydroxyzine HCl (Hydroxyzine Hcl 25 Mg Tablet) 25 mg PO BID PRN PRN Reason: Anxiety Last Admin: 02/21/22 17:41 Dose: 25 mg [place] Carbonate ([place] Carbonate 300 Mg Capsule) 300 mg PO BID [facility] Last Admin: 02/24/22 11:40 Dose: 300 mg Loperamide HCl (Loperamide Hcl 2 Mg Capsule) 4 mg PO Q4H PRN PRN Reason: Diarrhea Last Admin: 11/01/21 17:04 Dose: 4 mg Magnesium Hydroxide (Milk Of Magnesia 30 Ml Oral.Susp) 30 ml PO DAILY PRN PRN Reason: Constipation Last Admin: 01/30/22 22:11 Dose: 30 ml Mirtazapine (Mirtazapine 15 Mg Tablet) 15 mg PO BEDTIME [facility] Last Admin: 02/23/22 20:10 Dose: 15 mg Olanzapine (Olanzapine 10 Mg Vial) 5 mg IM STAT PRN PRN Reason: refusal of Clozaril PO Polyethylene Glycol (Polyethylene Glycol 3350 17 Gm Powd.Pack) 17 gm PO BID [facility] Last Admin: 02/24/22 11:41 Dose: 17 gm Senna (Sennosides 8.6 Mg Tablet) 8.6 mg PO BEDTIME [facility] Last Admin: 02/23/22 20:10 Dose: 8.6 mg Trazodone HCl (Trazodone Hcl 50 Mg Tablet) 50 mg PO BEDTIME PRN PRN Reason: Insomnia Last Admin: 02/23/22 23:46 Dose: 50 mg Trolamine Salicylate/Aloe Vera (Trolamine Salicylate 10%/Aloe Cream 35.4 Gm) 1 appl TOPICAL TID PRN PRN Reason: neck pain Last Admin: 02/02/22 22:34 Dose: 1 appl Allergies Allergies Allergy/AdvReac Type Severity Reaction Status Date / Time No Known Allergies Allergy Unverified 05/01/20 19:42 [No Known Allergies*] Assessment & Plan Assessment & Plan (1) Schizophrenia, paranoid, chronic with acute exacerbation: Status: Acute Code(s): F20.0 - Paranoid schizophrenia (2) Hypertension: Status: Acute Code(s): I10 - Essential (primary) hypertension (3) Dementia: Status: Acute Code(s): F03.90 - Unspecified dementia without behavioral disturbance Plan Elderly female with a long history of schizoaffective disorder bipolar type who was admitted into the facility for exacerbation of psychosis and mood lability. The patient is on Clozaril and apparently she has not been fully compliant with treatment. 11/21 slipped, hit head on 11/20, head CT reviewed and unremarkable. We did a MOCA and she is technically demented at this moment Plan 1. The patient at this moment is on 3 psychotics, Clozaril , Haldol and Invega Sustenna. 2. Discontinue Haldol 5 mg IM if the patient refuses Clozaril and replace with Zyprexa. 3. Lower total Clozaril to 500 mg a day. We will not continue with Invega Sustenna sings there is no improvement with 3 antipsychotics. We will keep her on Clozaril and Haldol p.o.. 4. Waiting for placement I spent ___20___ minutes with the patient and/or on the patient floor today, greater than?50% of which was spent counseling/coordinating care. Reason for contiued inpatient stay Substantial Risk for: inability to function, rapid decompensation and med/psych decompensation
[2022-02-24] MEDS: hydrOXYzine HCL 25 MG TABLET PO (16:35)
[2022-02-24 20:15] VITALS: BP 121/64; PULSE 89; RESP 18; TEMP 37; O2SAT 96
[2022-02-24] MEDS: Mirtazapine 15 MG TABLET PO (20:21)
[2022-02-24] MEDS: Sennosides 8.6 MG TABLET PO (20:21)
[2022-02-24] MEDS: cloZAPine 100 MG TABLET 300 MG PO (20:21)
[2022-02-25 06:00] VITALS: BP 115/60; PULSE 93; RESP 16; TEMP 37; O2SAT 95
[2022-02-25] MEDS: Desmopressin Acetate 0.2 MG TABLET PO ×2 (10:37→20:44)
[2022-02-25] MEDS: Lithium Carbonate 300 MG CAPSULE PO ×2 (10:37→20:44)
[2022-02-25] MEDS: Apixaban 5 MG TABLET PO ×2 (10:37→20:44)
[2022-02-25] MEDS: Benztropine Mesylate 1 MG TABLET PO ×2 (10:37→20:45)
[2022-02-25] MEDS: HaloperidoL 5 MG TABLET PO ×2 (10:37→20:44)
[2022-02-25] MEDS: cloZAPine 100 MG TABLET PO ×2 (10:37→16:33)
[2022-02-25] MEDS: hydroCHLOROthiazide 25 MG TABLET PO (10:37)
[2022-02-25] MEDS: Docusate Sodium 100 MG CAPSULE PO (10:37)
--- NOTE | 2022-02-25 11:24 | HO.PSYCHPN ---
Subjective Subjective Date of Service: 02/25/22 Reason For Visit: psychotic disorder Subjective Notes: Conditional Voluntary Interim History: The nursing staff reported the patient has been compliant with treatment. She tested COVID - 19- today and she was negative.. On interview the patient reports that she is not feeling fine that she is having auditory hallucinations and she is waiting for her next dose of Clozaril. Mental Status Exam Mental Status Exam Patient Appearance: Appropriate Patient Orientation: Person and Situation Level of Consciousness: Awake Patient Behavior: Cooperative Mood Description: Withdrawn Affect Description: Labile Patient Cognition Impaired: Yes Speech Pattern: Soft-Spoken Hallucinations: Auditory Delusions: Paranoid Ideation Thought Process: Linear Thought Content: positive for [place] and positive for Poverty of Content Judgement: Fair Diagnostics Vital Signs (24Hr): Vital Signs - 24 hr 02/24/22 20:15 02/25/22 06:00 Temperature 98.6 F 98.6 F Pulse Rate 89 93 Respiratory Rate 18 16 Blood Pressure 121/64 115/60 Pulse Oximetry 96 95 Oxygen Delivery Method Room Air Room Air BMI result Body Mass Index 27.8 Labs Results: 01/22/22 08:07 02/20/22 19:35 Imaging Radiology Impressions: ITS Impressions Head CT 10/08/21 15:16 IMPRESSION: No acute intracranial pathology. Head CT 10/09/21 13:54 IMPRESSION: No acute intracranial pathology. Pelvic/Transvag US 10/13/21 09:24 IMPRESSION: Abnormally thickened endometrium for a postmenopausal patient measuring 0.9 cm. 3 x 2.7 x 3.7 cm mass in the posterior cervix. This may represent a fibroid. Slightly thickened trabeculated bladder wall. Head CT 10/20/21 08:18 IMPRESSION: No acute intracranial pathology. This critical result was discussed with Dr. Chu at 8:30 hours on 10/20/2021. It was ascertained that the content and urgency of the report was understood at the time of direct communication. Head CT 11/20/21 19:29 IMPRESSION: No acute intracranial pathology. Medications Medications Current Medications Acetaminophen (Acetaminophen 325 Mg Tablet) 650 mg PO Q6H PRN PRN Reason: Headache/Pain Mild Scale (1-3) Last Admin: 02/23/22 20:15 Dose: 650 mg Al Hydroxide/Mg Hydroxide (Magnesium Hydrox/Alum Hydrox 30 Ml Oral.Susp) 30 ml PO Q6H PRN PRN Reason: Heartburn/Nausea Apixaban (Apixaban 5 Mg Tablet) 5 mg PO BID [facility] Last Admin: 02/25/22 10:37 Dose: 5 mg Benztropine Mesylate (Benztropine Mesylate 1 Mg Tablet) 1 mg PO BID [facility] Last Admin: 02/25/22 10:37 Dose: 1 mg Bisacodyl (Bisacodyl 10 Mg Supp.Rect) 10 mg [place] DAILY PRN PRN Reason: Constipation Last Admin: 12/16/21 04:01 Dose: 10 mg Clotrimazole (Clotrimazole 1 % Cream 15 Gm Tube) 1 appl TOPICAL BID [facility]; Protocol Last Admin: 02/25/22 10:38 Dose: Not Given Clozapine (Clozapine 100 Mg Tablet) 100 mg PO DAILY [facility] Last Admin: 02/25/22 10:37 Dose: 100 mg Clozapine (Clozapine 100 Mg Tablet) 300 mg PO BEDTIME [facility] Last Admin: 02/24/22 20:21 Dose: 300 mg Clozapine (Clozapine 100 Mg Tablet) 100 mg PO DAILY@1700 [facility] Last Admin: 02/24/22 16:24 Dose: 100 mg Desmopressin Acetate (Desmopressin Acetate 0.2 Mg Tablet) 0.2 mg PO BID [facility] Last Admin: 02/25/22 10:37 Dose: 0.2 mg Docusate Sodium (Docusate Sodium 100 Mg Capsule) 100 mg PO BID [facility] Last Admin: 02/25/22 10:37 Dose: 100 mg Haloperidol (Haloperidol 5 Mg Tablet) 5 mg PO BID [facility] Last Admin: 02/25/22 10:37 Dose: 5 mg Hydrochlorothiazide (Hydrochlorothiazide 25 Mg Tablet) 25 mg PO DAILY [facility]; Protocol Last Admin: 02/25/22 10:37 Dose: 25 mg Hydroxyzine HCl (Hydroxyzine Hcl 25 Mg Tablet) 25 mg PO BEDTIME PRN PRN Reason: Anxiety Last Admin: 02/22/22 02:10 Dose: 25 mg Hydroxyzine HCl (Hydroxyzine Hcl 25 Mg Tablet) 25 mg PO BID PRN PRN Reason: Anxiety Last Admin: 02/24/22 16:35 Dose: 25 mg [place] Carbonate ([place] Carbonate 300 Mg Capsule) 300 mg PO BID [facility] Last Admin: 02/25/22 10:37 Dose: 300 mg Loperamide HCl (Loperamide Hcl 2 Mg Capsule) 4 mg PO Q4H PRN PRN Reason: Diarrhea Last Admin: 11/01/21 17:04 Dose: 4 mg Magnesium Hydroxide (Milk Of Magnesia 30 Ml Oral.Susp) 30 ml PO DAILY PRN PRN Reason: Constipation Last Admin: 01/30/22 22:11 Dose: 30 ml Mirtazapine (Mirtazapine 15 Mg Tablet) 15 mg PO BEDTIME [facility] Last Admin: 02/24/22 20:21 Dose: 15 mg Olanzapine (Olanzapine 10 Mg Vial) 5 mg IM STAT PRN PRN Reason: refusal of Clozaril PO Polyethylene Glycol (Polyethylene Glycol 3350 17 Gm Powd.Pack) 17 gm PO BID [facility] Last Admin: 02/25/22 10:38 Dose: Not Given Senna (Sennosides 8.6 Mg Tablet) 8.6 mg PO BEDTIME [facility] Last Admin: 02/24/22 20:21 Dose: 8.6 mg Trazodone HCl (Trazodone Hcl 50 Mg Tablet) 50 mg PO BEDTIME PRN PRN Reason: Insomnia Last Admin: 02/23/22 23:46 Dose: 50 mg Trolamine Salicylate/Aloe Vera (Trolamine Salicylate 10%/Aloe Cream 35.4 Gm) 1 appl TOPICAL TID PRN PRN Reason: neck pain Last Admin: 02/02/22 22:34 Dose: 1 appl Allergies Allergies Allergy/AdvReac Type Severity Reaction Status Date / Time No Known Allergies Allergy Unverified 05/01/20 19:42 [No Known Allergies*] Assessment & Plan Assessment & Plan (1) Schizophrenia, paranoid, chronic with acute exacerbation: Status: Acute Code(s): F20.0 - Paranoid schizophrenia (2) Hypertension: Status: Acute Code(s): I10 - Essential (primary) hypertension (3) Dementia: Status: Acute Code(s): F03.90 - Unspecified dementia without behavioral disturbance Plan Elderly female with a long history of schizoaffective disorder bipolar type who was admitted into the facility for exacerbation of psychosis and mood lability. The patient is on Clozaril and apparently she has not been fully compliant with treatment. 11/21 slipped, hit head on 11/20, head CT reviewed and unremarkable. We did a MOCA and she is technically demented at this moment Plan 1. The patient at this moment is on 3 psychotics, Clozaril , Haldol and Invega Sustenna. 2. Discontinue Haldol 5 mg IM if the patient refuses Clozaril and replace with Zyprexa. 3. Lower total Clozaril to 500 mg a day. We will not continue with Invega Sustenna sings there is no improvement with 3 antipsychotics. We will keep her on Clozaril and Haldol p.o.. 4. Waiting for placement I spent ___20___ minutes with the patient and/or on the patient floor today, greater than?50% of which was spent counseling/coordinating care. Reason for contiued inpatient stay Substantial Risk for: inability to function, rapid decompensation and med/psych decompensation
[2022-02-25 20:25] VITALS: BP 136/62; PULSE 84; RESP 14; TEMP 37; O2SAT 98
[2022-02-25] MEDS: cloZAPine 100 MG TABLET 300 MG PO (20:44)
[2022-02-25] MEDS: Mirtazapine 15 MG TABLET PO (20:45)
[2022-02-25] MEDS: polyethylene glycoL 3350 17 GM POWD.PACK PO (20:47)
[2022-02-25] MEDS: traZODone HCL 50 MG TABLET PO (23:14)
[2022-02-25] MEDS: hydrOXYzine HCL 25 MG TABLET PO (23:14)
[2022-02-26 06:00] VITALS: BP 102/70; PULSE 77; RESP 16; TEMP 36.4; O2SAT 95
[2022-02-26 09:01] LABS: Neut%MD 65.2 %; Neutrophils Absolute Auto 4.1 x10*3/uL (2.0-8.3); WBCANC 6.4 X10*3/uL
[2022-02-26] MEDS: hydroCHLOROthiazide 25 MG TABLET PO (09:32)
[2022-02-26] MEDS: cloZAPine 100 MG TABLET PO ×2 (09:32→17:48)
[2022-02-26] MEDS: Apixaban 5 MG TABLET PO ×2 (09:32→20:42)
[2022-02-26] MEDS: HaloperidoL 5 MG TABLET PO ×2 (09:32→20:42)
[2022-02-26] MEDS: Desmopressin Acetate 0.2 MG TABLET PO ×2 (09:32→20:42)
[2022-02-26] MEDS: Lithium Carbonate 300 MG CAPSULE PO ×2 (09:32→20:42)
[2022-02-26] MEDS: Benztropine Mesylate 1 MG TABLET PO ×2 (09:32→20:42)
[2022-02-26] MEDS: Docusate Sodium 100 MG CAPSULE PO ×2 (09:32→20:42)
--- NOTE | 2022-02-26 10:46 | HO.PSYCHPN ---
Subjective Subjective Date of Service: 02/26/22 Reason For Visit: psychotic disorder Subjective Notes: Conditional Voluntary Interim History: The nursing staff reported the patient has been compliant with treatment, she remains psychotic but easily redirectable. Waiting for placement Mental Status Exam Mental Status Exam Patient Appearance: Well Grooomed Patient Orientation: Person Level of Consciousness: Awake Patient Behavior: Cooperative Mood Description: Withdrawn Affect Description: Calm Patient Cognition Impaired: Yes Ability to Follow Directions: Good Speech Pattern: Clear Hallucinations: Auditory Delusions: Paranoid Ideation Thought Process: Distracted Thought Content: positive for [place] and positive for Poverty of Content Judgement: Fair Diagnostics Vital Signs (24Hr): Vital Signs - 24 hr 02/25/22 20:25 02/26/22 06:00 Temperature 98.6 F 97.6 F Pulse Rate 84 77 Respiratory Rate 14 16 Blood Pressure 136/62 102/70 Pulse Oximetry 98 95 Oxygen Delivery Method Room Air Room Air BMI result Body Mass Index 27.8 Labs Results: 01/22/22 08:07 02/20/22 19:35 Labs: Laboratory Results - last 48 hr 02/26/22 08:49 Absolute Neuts (auto) 4.1 Imaging Radiology Impressions: ITS Impressions Head CT 10/08/21 15:16 IMPRESSION: No acute intracranial pathology. Head CT 10/09/21 13:54 IMPRESSION: No acute intracranial pathology. Pelvic/Transvag US 10/13/21 09:24 IMPRESSION: Abnormally thickened endometrium for a postmenopausal patient measuring 0.9 cm. 3 x 2.7 x 3.7 cm mass in the posterior cervix. This may represent a fibroid. Slightly thickened trabeculated bladder wall. Head CT 10/20/21 08:18 IMPRESSION: No acute intracranial pathology. This critical result was discussed with Dr. Chu at 8:30 hours on 10/20/2021. It was ascertained that the content and urgency of the report was understood at the time of direct communication. Head CT 11/20/21 19:29 IMPRESSION: No acute intracranial pathology. Medications Medications Current Medications Acetaminophen (Acetaminophen 325 Mg Tablet) 650 mg PO Q6H PRN PRN Reason: Headache/Pain Mild Scale (1-3) Last Admin: 02/23/22 20:15 Dose: 650 mg Al Hydroxide/Mg Hydroxide (Magnesium Hydrox/Alum Hydrox 30 Ml Oral.Susp) 30 ml PO Q6H PRN PRN Reason: Heartburn/Nausea Apixaban (Apixaban 5 Mg Tablet) 5 mg PO BID [facility] Last Admin: 02/26/22 09:32 Dose: 5 mg Benztropine Mesylate (Benztropine Mesylate 1 Mg Tablet) 1 mg PO BID [facility] Last Admin: 02/26/22 09:32 Dose: 1 mg Bisacodyl (Bisacodyl 10 Mg Supp.Rect) 10 mg [place] DAILY PRN PRN Reason: Constipation Last Admin: 12/16/21 04:01 Dose: 10 mg Clotrimazole (Clotrimazole 1 % Cream 15 Gm Tube) 1 appl TOPICAL BID [facility]; Protocol Last Admin: 02/26/22 09:33 Dose: Not Given Clozapine (Clozapine 100 Mg Tablet) 100 mg PO DAILY [facility] Last Admin: 02/26/22 09:32 Dose: 100 mg Clozapine (Clozapine 100 Mg Tablet) 300 mg PO BEDTIME [facility] Last Admin: 02/25/22 20:44 Dose: 300 mg Clozapine (Clozapine 100 Mg Tablet) 100 mg PO DAILY@1700 [facility] Last Admin: 02/25/22 16:33 Dose: 100 mg Desmopressin Acetate (Desmopressin Acetate 0.2 Mg Tablet) 0.2 mg PO BID [facility] Last Admin: 02/26/22 09:32 Dose: 0.2 mg Docusate Sodium (Docusate Sodium 100 Mg Capsule) 100 mg PO BID [facility] Last Admin: 02/26/22 09:32 Dose: 100 mg Haloperidol (Haloperidol 5 Mg Tablet) 5 mg PO BID [facility] Last Admin: 02/26/22 09:32 Dose: 5 mg Hydrochlorothiazide (Hydrochlorothiazide 25 Mg Tablet) 25 mg PO DAILY [facility]; Protocol Last Admin: 02/26/22 09:32 Dose: 25 mg Hydroxyzine HCl (Hydroxyzine Hcl 25 Mg Tablet) 25 mg PO BEDTIME PRN PRN Reason: Anxiety Last Admin: 02/25/22 23:14 Dose: 25 mg Hydroxyzine HCl (Hydroxyzine Hcl 25 Mg Tablet) 25 mg PO BID PRN PRN Reason: Anxiety Last Admin: 02/24/22 16:35 Dose: 25 mg [place] Carbonate ([place] Carbonate 300 Mg Capsule) 300 mg PO BID [facility] Last Admin: 02/26/22 09:32 Dose: 300 mg Loperamide HCl (Loperamide Hcl 2 Mg Capsule) 4 mg PO Q4H PRN PRN Reason: Diarrhea Last Admin: 11/01/21 17:04 Dose: 4 mg Magnesium Hydroxide (Milk Of Magnesia 30 Ml Oral.Susp) 30 ml PO DAILY PRN PRN Reason: Constipation Last Admin: 01/30/22 22:11 Dose: 30 ml Mirtazapine (Mirtazapine 15 Mg Tablet) 15 mg PO BEDTIME [facility] Last Admin: 02/25/22 20:45 Dose: 15 mg Olanzapine (Olanzapine 10 Mg Vial) 5 mg IM STAT PRN PRN Reason: refusal of Clozaril PO Polyethylene Glycol (Polyethylene Glycol 3350 17 Gm Powd.Pack) 17 gm PO BID [facility] Last Admin: 02/26/22 09:33 Dose: Not Given Senna (Sennosides 8.6 Mg Tablet) 8.6 mg PO BEDTIME [facility] Last Admin: 02/25/22 20:45 Dose: Not Given Trazodone HCl (Trazodone Hcl 50 Mg Tablet) 50 mg PO BEDTIME PRN PRN Reason: Insomnia Last Admin: 02/25/22 23:14 Dose: 50 mg Trolamine Salicylate/Aloe Vera (Trolamine Salicylate 10%/Aloe Cream 35.4 Gm) 1 appl TOPICAL TID PRN PRN Reason: neck pain Last Admin: 02/02/22 22:34 Dose: 1 appl Allergies Allergies Allergy/AdvReac Type Severity Reaction Status Date / Time No Known Allergies Allergy Unverified 05/01/20 19:42 [No Known Allergies*] Assessment & Plan Assessment & Plan (1) Schizophrenia, paranoid, chronic with acute exacerbation: Status: Acute Code(s): F20.0 - Paranoid schizophrenia (2) Hypertension: Status: Acute Code(s): I10 - Essential (primary) hypertension (3) Dementia: Status: Acute Code(s): F03.90 - Unspecified dementia without behavioral disturbance Plan Elderly female with a long history of schizoaffective disorder bipolar type who was admitted into the facility for exacerbation of psychosis and mood lability. The patient is on Clozaril and apparently she has not been fully compliant with treatment. 11/21 slipped, hit head on 11/20, head CT reviewed and unremarkable. We did a MOCA and she is technically demented at this moment Plan 1. The patient at this moment is on 3 psychotics, Clozaril , Haldol and Invega Sustenna. 2. Discontinue Haldol 5 mg IM if the patient refuses Clozaril and replace with Zyprexa. 3. Lower total Clozaril to 500 mg a day. We will not continue with Invega Sustenna sings there is no improvement with 3 antipsychotics. We will keep her on Clozaril and Haldol p.o.. 4. Waiting for placement I spent ___20___ minutes with the patient and/or on the patient floor today, greater than?50% of which was spent counseling/coordinating care. Reason for contiued inpatient stay Substantial Risk for: inability to function, rapid decompensation and med/psych decompensation
[2022-02-26 18:00] VITALS: BP 139/67; PULSE 89; RESP 18; TEMP 36.4; O2SAT 97
[2022-02-26] MEDS: polyethylene glycoL 3350 17 GM POWD.PACK PO (20:41)
[2022-02-26] MEDS: cloZAPine 100 MG TABLET 300 MG PO (20:42)
[2022-02-26] MEDS: Mirtazapine 15 MG TABLET PO (20:43)
[2022-02-26] MEDS: Sennosides 8.6 MG TABLET PO (20:43)
[2022-02-27] MEDS: HaloperidoL 5 MG TABLET PO ×2 (09:43→21:19)
[2022-02-27] MEDS: cloZAPine 100 MG TABLET PO ×2 (09:43→15:54)
[2022-02-27] MEDS: hydroCHLOROthiazide 25 MG TABLET PO (09:43)
[2022-02-27] MEDS: polyethylene glycoL 3350 17 GM POWD.PACK PO (09:43)
[2022-02-27] MEDS: Benztropine Mesylate 1 MG TABLET PO (09:43)
[2022-02-27] MEDS: Apixaban 5 MG TABLET PO ×2 (09:43→21:20)
[2022-02-27] MEDS: Lithium Carbonate 300 MG CAPSULE PO ×2 (09:44→21:21)
[2022-02-27] MEDS: Desmopressin Acetate 0.2 MG TABLET PO ×2 (09:44→21:20)
[2022-02-27] MEDS: Docusate Sodium 100 MG CAPSULE PO ×2 (09:44→21:20)
[2022-02-27 10:01] VITALS: BP 137/78; PULSE 92; RESP 16; TEMP 36.4; O2SAT 95
--- NOTE | 2022-02-27 15:10 | HO.PSYCHPN ---
Subjective Subjective Date of Service: 02/27/22 Reason For Visit: psychotic disorder Interim History: Patient intermittently yelling in emotional distress. Power Equipment Technology Instructor tries to engage in patient said that she is having upsetting thoughts that make her yell. Power Equipment Technology Instructor asked if he could see if there is any medication adjustments that could be made but she declined. As lyric writer tried to again approach this topic patient became a little irritable saying she did not want any medications for this that they will not help. She did come down and thank lyric writer for his inquiry. Mental Status Exam Mental Status Exam Patient Appearance: Well Grooomed Patient Orientation: Person Level of Consciousness: Awake Patient Behavior: Cooperative Mood Description: Withdrawn Affect Description: Calm Patient Cognition Impaired: Yes Ability to Follow Directions: Good Speech Pattern: Clear Hallucinations: Auditory Delusions: Paranoid Ideation Thought Process: Distracted Thought Content: positive for [place] and positive for Poverty of Content Judgement: Fair Diagnostics Vital Signs (24Hr): Vital Signs - 24 hr 02/26/22 18:00 02/27/22 10:01 Temperature 97.5 F 97.5 F Pulse Rate 89 92 Respiratory Rate 18 16 Blood Pressure 139/67 137/78 Pulse Oximetry 97 95 Oxygen Delivery Method Room Air Room Air BMI result Body Mass Index 27.8 Labs Results: 01/22/22 08:07 02/20/22 19:35 Labs: Laboratory Results - last 48 hr 02/26/22 08:49 Absolute Neuts (auto) 4.1 Imaging Radiology Impressions: ITS Impressions Head CT 10/08/21 15:16 IMPRESSION: No acute intracranial pathology. Head CT 10/09/21 13:54 IMPRESSION: No acute intracranial pathology. Pelvic/Transvag US 10/13/21 09:24 IMPRESSION: Abnormally thickened endometrium for a postmenopausal patient measuring 0.9 cm. 3 x 2.7 x 3.7 cm mass in the posterior cervix. This may represent a fibroid. Slightly thickened trabeculated bladder wall. Head CT 10/20/21 08:18 IMPRESSION: No acute intracranial pathology. This critical result was discussed with Dr. Chu at 8:30 hours on 10/20/2021. It was ascertained that the content and urgency of the report was understood at the time of direct communication. Head CT 11/20/21 19:29 IMPRESSION: No acute intracranial pathology. Medications Medications Current Medications Acetaminophen (Acetaminophen 325 Mg Tablet) 650 mg PO Q6H PRN PRN Reason: Headache/Pain Mild Scale (1-3) Last Admin: 02/23/22 20:15 Dose: 650 mg Al Hydroxide/Mg Hydroxide (Magnesium Hydrox/Alum Hydrox 30 Ml Oral.Susp) 30 ml PO Q6H PRN PRN Reason: Heartburn/Nausea Apixaban (Apixaban 5 Mg Tablet) 5 mg PO BID [facility] Last Admin: 02/27/22 09:43 Dose: 5 mg Benztropine Mesylate (Benztropine Mesylate 1 Mg Tablet) 1 mg PO BID [facility] Last Admin: 02/27/22 09:43 Dose: 1 mg Bisacodyl (Bisacodyl 10 Mg Supp.Rect) 10 mg [place] DAILY PRN PRN Reason: Constipation Last Admin: 12/16/21 04:01 Dose: 10 mg Clotrimazole (Clotrimazole 1 % Cream 15 Gm Tube) 1 appl TOPICAL BID [facility]; Protocol Last Admin: 02/27/22 09:45 Dose: Not Given Clozapine (Clozapine 100 Mg Tablet) 100 mg PO DAILY [facility] Last Admin: 02/27/22 09:43 Dose: 100 mg Clozapine (Clozapine 100 Mg Tablet) 300 mg PO BEDTIME [facility] Last Admin: 02/26/22 20:42 Dose: 300 mg Clozapine (Clozapine 100 Mg Tablet) 100 mg PO DAILY@1700 [facility] Last Admin: 02/26/22 17:48 Dose: 100 mg Desmopressin Acetate (Desmopressin Acetate 0.2 Mg Tablet) 0.2 mg PO BID [facility] Last Admin: 02/27/22 09:44 Dose: 0.2 mg Docusate Sodium (Docusate Sodium 100 Mg Capsule) 100 mg PO BID [facility] Last Admin: 02/27/22 09:44 Dose: 100 mg Haloperidol (Haloperidol 5 Mg Tablet) 5 mg PO BID [facility] Last Admin: 02/27/22 09:43 Dose: 5 mg Hydrochlorothiazide (Hydrochlorothiazide 25 Mg Tablet) 25 mg PO DAILY [facility]; Protocol Last Admin: 02/27/22 09:43 Dose: 25 mg Hydroxyzine HCl (Hydroxyzine Hcl 25 Mg Tablet) 25 mg PO BEDTIME PRN PRN Reason: Anxiety Last Admin: 02/25/22 23:14 Dose: 25 mg Hydroxyzine HCl (Hydroxyzine Hcl 25 Mg Tablet) 25 mg PO BID PRN PRN Reason: Anxiety Last Admin: 02/24/22 16:35 Dose: 25 mg [place] Carbonate ([place] Carbonate 300 Mg Capsule) 300 mg PO BID [facility] Last Admin: 02/27/22 09:44 Dose: 300 mg Loperamide HCl (Loperamide Hcl 2 Mg Capsule) 4 mg PO Q4H PRN PRN Reason: Diarrhea Last Admin: 11/01/21 17:04 Dose: 4 mg Magnesium Hydroxide (Milk Of Magnesia 30 Ml Oral.Susp) 30 ml PO DAILY PRN PRN Reason: Constipation Last Admin: 01/30/22 22:11 Dose: 30 ml Mirtazapine (Mirtazapine 15 Mg Tablet) 15 mg PO BEDTIME [facility] Last Admin: 02/26/22 20:43 Dose: 15 mg Olanzapine (Olanzapine 10 Mg Vial) 5 mg IM STAT PRN PRN Reason: refusal of Clozaril PO Polyethylene Glycol (Polyethylene Glycol 3350 17 Gm Powd.Pack) 17 gm PO BID [facility] Last Admin: 02/27/22 09:43 Dose: 17 gm Senna (Sennosides 8.6 Mg Tablet) 8.6 mg PO BEDTIME [facility] Last Admin: 02/26/22 20:43 Dose: 8.6 mg Trazodone HCl (Trazodone Hcl 50 Mg Tablet) 50 mg PO BEDTIME PRN PRN Reason: Insomnia Last Admin: 02/25/22 23:14 Dose: 50 mg Trolamine Salicylate/Aloe Vera (Trolamine Salicylate 10%/Aloe Cream 35.4 Gm) 1 appl TOPICAL TID PRN PRN Reason: neck pain Last Admin: 02/02/22 22:34 Dose: 1 appl Allergies Allergies Allergy/AdvReac Type Severity Reaction Status Date / Time No Known Allergies Allergy Unverified 05/01/20 19:42 [No Known Allergies*] Assessment & Plan Assessment & Plan (1) Schizophrenia, paranoid, chronic with acute exacerbation: Status: Acute Code(s): F20.0 - Paranoid schizophrenia (2) Hypertension: Status: Acute Code(s): I10 - Essential (primary) hypertension (3) Dementia: Status: Acute Code(s): F03.90 - Unspecified dementia without behavioral disturbance Plan Elderly female with a long history of schizoaffective disorder bipolar type who was admitted into the facility for exacerbation of psychosis and mood lability. The patient is on Clozaril and apparently she has not been fully compliant with treatment. 11/21 slipped, hit head on 11/20, head CT reviewed and unremarkable. We did a MOCA and she is technically demented at this moment Plan 1. The patient at this moment is on 3 psychotics, Clozaril , Haldol and Invega Sustenna. 2. Discontinue Haldol 5 mg IM if the patient refuses Clozaril and replace with Zyprexa. 3. Lower total Clozaril to 500 mg a day. We will not continue with Invega Sustenna sings there is no improvement with 3 antipsychotics. We will keep her on Clozaril and Haldol p.o.. 4. Waiting for placement 02/27: Continue current treatment plan I spent minutes with the patient and/or on the patient floor today, greater than?50% of which was spent counseling/coordinating care. Patient educated on: medication risk/benefits Informed Consent: further education needed Reason for contiued inpatient stay Substantial Risk for: inability to function
[2022-02-27] MEDS: Mirtazapine 15 MG TABLET PO (21:18)
[2022-02-27] MEDS: cloZAPine 100 MG TABLET 300 MG PO (21:18)
[2022-02-27] MEDS: Sennosides 8.6 MG TABLET PO (21:19)
[2022-02-27 21:20] VITALS: BP 129/63; PULSE 88; RESP 15; TEMP 36.6; O2SAT 98
[2022-02-28 06:00] VITALS: BP 136/76; PULSE 86; RESP 17; TEMP 36.6; O2SAT 100
[2022-02-28] MEDS: HaloperidoL 5 MG TABLET PO ×2 (08:25→20:04)
[2022-02-28] MEDS: Apixaban 5 MG TABLET PO ×2 (08:25→20:02)
[2022-02-28] MEDS: Benztropine Mesylate 1 MG TABLET PO ×2 (08:25→20:02)
[2022-02-28] MEDS: Docusate Sodium 100 MG CAPSULE PO ×2 (08:25→20:04)
[2022-02-28] MEDS: Lithium Carbonate 300 MG CAPSULE PO ×2 (08:25→20:02)
[2022-02-28] MEDS: polyethylene glycoL 3350 17 GM POWD.PACK PO ×2 (08:26→19:59)
[2022-02-28] MEDS: cloZAPine 100 MG TABLET PO ×2 (08:26→18:07)
[2022-02-28] MEDS: hydroCHLOROthiazide 25 MG TABLET PO (08:26)
[2022-02-28] MEDS: Desmopressin Acetate 0.2 MG TABLET PO ×2 (08:26→20:03)
[2022-02-28 18:00] VITALS: BP 142/60; PULSE 95; RESP 18; TEMP 36.4; O2SAT 98
--- NOTE | 2022-02-28 19:38 | P.PNPSI_ITS ---
Subjective Subjective Date of Service: 02/28/22 Reason For Visit: psychotic disorder Interim History: Late entry note for patient seen on 02/28 Sitting on bed. Difficult to engage. Disorganized thinking and internally preoccupied Mental Status Exam Mental Status Exam Patient Appearance: Well Grooomed Patient Orientation: Person Level of Consciousness: Awake Patient Behavior: Cooperative Mood Description: Withdrawn Affect Description: Calm Patient Cognition Impaired: Yes Ability to Follow Directions: Good Speech Pattern: Clear Hallucinations: Auditory Delusions: Paranoid Ideation Thought Process: Distracted Thought Content: positive for [place] and positive for Poverty of Content Judgement: Fair Diagnostics Vital Signs (24Hr): Vital Signs - 24 hr 03/02/22 18:00 03/03/22 07:30 03/03/22 12:43 Temperature 98.1 F 98.1 F Pulse Rate 94 97 Respiratory Rate 17 16 Blood Pressure 114/58 L 107/57 L 119/58 L Pulse Oximetry 92 92 Oxygen Delivery Method Room Air Room Air BMI result Body Mass Index 27.8 Labs Results: 01/22/22 08:07 02/20/22 19:35 Imaging Radiology Impressions: ITS Impressions Head CT 10/08/21 15:16 IMPRESSION: No acute intracranial pathology. Head CT 10/09/21 13:54 IMPRESSION: No acute intracranial pathology. Pelvic/Transvag US 10/13/21 09:24 IMPRESSION: Abnormally thickened endometrium for a postmenopausal patient measuring 0.9 cm. 3 x 2.7 x 3.7 cm mass in the posterior cervix. This may represent a fibroid. Slightly thickened trabeculated bladder wall. Head CT 10/20/21 08:18 IMPRESSION: No acute intracranial pathology. This critical result was discussed with Dr. Chu at 8:30 hours on 10/20/2021. It was ascertained that the content and urgency of the report was understood at the time of direct communication. Head CT 11/20/21 19:29 IMPRESSION: No acute intracranial pathology. Medications Medications Current Medications Acetaminophen (Acetaminophen 325 Mg Tablet) 650 mg PO Q6H PRN PRN Reason: Headache/Pain Mild Scale (1-3) Last Admin: 03/01/22 21:19 Dose: 650 mg Al Hydroxide/Mg Hydroxide (Magnesium Hydrox/Alum Hydrox 30 Ml Oral.Susp) 30 ml PO Q6H PRN PRN Reason: Heartburn/Nausea Apixaban (Apixaban 5 Mg Tablet) 5 mg PO BID [facility] Last Admin: 03/03/22 11:38 Dose: 5 mg Benztropine Mesylate (Benztropine Mesylate 1 Mg Tablet) 1 mg PO BID [facility] Last Admin: 03/03/22 11:39 Dose: 1 mg Bisacodyl (Bisacodyl 10 Mg Supp.Rect) 10 mg [place] DAILY PRN PRN Reason: Constipation Last Admin: 12/16/21 04:01 Dose: 10 mg Clotrimazole (Clotrimazole 1 % Cream 15 Gm Tube) 1 appl TOPICAL BID [facility]; Protocol Last Admin: 03/03/22 12:19 Dose: Not Given Clozapine (Clozapine 100 Mg Tablet) 100 mg PO DAILY [facility] Last Admin: 03/03/22 11:39 Dose: 100 mg Clozapine (Clozapine 100 Mg Tablet) 300 mg PO BEDTIME [facility] Last Admin: 03/02/22 21:14 Dose: 300 mg Clozapine (Clozapine 100 Mg Tablet) 100 mg PO DAILY@1700 [facility] Last Admin: 03/03/22 16:59 Dose: 100 mg Desmopressin Acetate (Desmopressin Acetate 0.2 Mg Tablet) 0.2 mg PO BID [facility] Last Admin: 03/03/22 11:39 Dose: 0.2 mg Docusate Sodium (Docusate Sodium 100 Mg Capsule) 100 mg PO BID [facility] Last Admin: 03/03/22 11:39 Dose: 100 mg Haloperidol (Haloperidol 5 Mg Tablet) 5 mg PO BID [facility] Last Admin: 03/03/22 11:38 Dose: 5 mg Hydrochlorothiazide (Hydrochlorothiazide 25 Mg Tablet) 25 mg PO DAILY [facility]; Protocol Last Admin: 03/03/22 11:38 Dose: 25 mg Hydroxyzine HCl (Hydroxyzine Hcl 25 Mg Tablet) 25 mg PO BEDTIME PRN PRN Reason: Anxiety Last Admin: 02/25/22 23:14 Dose: 25 mg Hydroxyzine HCl (Hydroxyzine Hcl 25 Mg Tablet) 25 mg PO BID PRN PRN Reason: Anxiety Last Admin: 03/03/22 14:12 Dose: 25 mg [place] Carbonate (Naplate Carbonate 300 Mg Capsule) 300 mg PO BID [facility] Last Admin: 03/03/22 11:39 Dose: 300 mg Loperamide HCl (Loperamide Hcl 2 Mg Capsule) 4 mg PO Q4H PRN PRN Reason: Diarrhea Last Admin: 11/01/21 17:04 Dose: 4 mg Magnesium Hydroxide (Milk Of Magnesia 30 Ml Oral.Susp) 30 ml PO DAILY PRN PRN Reason: Constipation Last Admin: 01/30/22 22:11 Dose: 30 ml Mirtazapine (Mirtazapine 15 Mg Tablet) 15 mg PO BEDTIME [facility] Last Admin: 03/02/22 21:15 Dose: 15 mg Olanzapine (Olanzapine 10 Mg Vial) 5 mg IM STAT PRN PRN Reason: refusal of Clozaril PO Polyethylene Glycol (Polyethylene Glycol 3350 17 Gm Powd.Pack) 17 gm PO BID [facility] Last Admin: 03/03/22 11:39 Dose: 17 gm Prazosin HCl (Prazosin Hcl 1 Mg Capsule) 2 mg PO TID [facility]; Protocol Senna (Sennosides 8.6 Mg Tablet) 8.6 mg PO BEDTIME [facility] Last Admin: 03/02/22 21:15 Dose: 8.6 mg Trazodone HCl (Trazodone Hcl 50 Mg Tablet) 50 mg PO BEDTIME PRN PRN Reason: Insomnia Last Admin: 03/01/22 21:19 Dose: 50 mg Trolamine Salicylate/Aloe Vera (Trolamine Salicylate 10%/Aloe Cream 35.4 Gm) 1 appl TOPICAL TID PRN PRN Reason: neck pain Last Admin: 02/02/22 22:34 Dose: 1 appl Allergies Allergies Allergy/AdvReac Type Severity Reaction Status Date / Time No Known Allergies Allergy Unverified 05/01/20 19:42 [No Known Allergies*] Assessment & Plan Assessment & Plan (1) Schizophrenia, paranoid, chronic with acute exacerbation: Status: Acute Code(s): F20.0 - Paranoid schizophrenia (2) Hypertension: Status: Acute Code(s): I10 - Essential (primary) hypertension (3) Dementia: Status: Acute Code(s): F03.90 - Unspecified dementia without behavioral disturbance Plan Elderly female with a long history of schizoaffective disorder bipolar type who was admitted into the facility for exacerbation of psychosis and mood lability. The patient is on Clozaril and apparently she has not been fully compliant with treatment. 11/21 slipped, hit head on 11/20, head CT reviewed and unremarkable. We did a MOCA and she is technically demented at this moment 02/28 continue current tx plan Plan 1. The patient at this moment is on 3 psychotics, Clozaril , Haldol and Invega Sustenna. 2. Discontinue Haldol 5 mg IM if the patient refuses Clozaril and replace with Zyprexa. 3. Lower total Clozaril to 500 mg a day. We will not continue with Invega Sustenna sings there is no improvement with 3 antipsychotics. We will keep her on Clozaril and Haldol p.o.. 4. Waiting for placement 5. Increase prazosin up to 2 mg p.o. t.i.d. to target nightmares since her blood pressure becomes stable I spent minutes with the patient and/or on the patient floor today, greater than?50% of which was spent counseling/coordinating care. Reason for contiued inpatient stay Substantial Risk for: inability to function
[2022-02-28] MEDS: cloZAPine 100 MG TABLET 300 MG PO (20:03)
[2022-02-28] MEDS: Acetaminophen 325 MG TABLET 650 MG PO (20:04)
[2022-02-28] MEDS: Sennosides 8.6 MG TABLET PO (20:04)
[2022-02-28] MEDS: Mirtazapine 15 MG TABLET PO (20:04)
[2022-03-01 06:00] VITALS: BP 111/56; PULSE 80; RESP 14; TEMP 36.6; O2SAT 96
[2022-03-01] MEDS: HaloperidoL 5 MG TABLET PO ×2 (11:38→21:21)
[2022-03-01] MEDS: cloZAPine 100 MG TABLET PO ×2 (11:38→16:40)
[2022-03-01] MEDS: Docusate Sodium 100 MG CAPSULE PO ×2 (11:38→21:21)
[2022-03-01] MEDS: Apixaban 5 MG TABLET PO ×2 (11:39→21:21)
[2022-03-01] MEDS: Lithium Carbonate 300 MG CAPSULE PO ×2 (11:39→21:21)
[2022-03-01] MEDS: Desmopressin Acetate 0.2 MG TABLET PO ×2 (11:39→21:21)
[2022-03-01] MEDS: hydroCHLOROthiazide 25 MG TABLET PO (11:39)
[2022-03-01] MEDS: Benztropine Mesylate 1 MG TABLET PO ×2 (11:39→21:21)
[2022-03-01 13:19] LABS: COVID-19 Test Negative (Negative); IDNOW Serial# 9DD0AD1C
--- NOTE | 2022-03-01 14:28 | P.PNPSI_ITS ---
Subjective Subjective Date of Service: 03/01/22 Reason For Visit: psychotic disorder Subjective Notes: Conditional Voluntary Interim History: The nursing staff reports the patient has been compliant with medication. On interview the patient denies new symptoms she has sporadic episodes of auditory hallucinations and yelling outbursts but easily redirectable, at baseline at this moment. Mental Status Exam Mental Status Exam Patient Appearance: Well Grooomed Patient Orientation: Person and Situation Level of Consciousness: Awake Patient Behavior: Cooperative Mood Description: Constricted Affect Description: Calm and Labile Patient Cognition Impaired: Yes Ability to Follow Directions: Good Speech Pattern: Clear Hallucinations: Auditory Delusions: Paranoid Ideation Perceptual Disturbances: Hallucinations Thought Process: Distracted Thought Content: positive for Goal Oriented and positive for Linear Judgement: Fair Diagnostics Vital Signs (24Hr): Vital Signs - 24 hr 02/28/22 18:00 03/01/22 06:00 Temperature 97.6 F 97.9 F Pulse Rate 95 80 Respiratory Rate 18 14 Blood Pressure 142/60 H 111/56 L Pulse Oximetry 98 96 Oxygen Delivery Method Room Air Room Air BMI result Body Mass Index 27.8 Labs Results: 01/22/22 08:07 02/20/22 19:35 Labs: Laboratory Results - last 48 hr 03/01/22 12:35 COVID-19 ([facility]) Negative COVID-19 Clin Com See Note Imaging Radiology Impressions: ITS Impressions Head CT 10/08/21 15:16 IMPRESSION: No acute intracranial pathology. Head CT 10/09/21 13:54 IMPRESSION: No acute intracranial pathology. Pelvic/Transvag US 10/13/21 09:24 IMPRESSION: Abnormally thickened endometrium for a postmenopausal patient measuring 0.9 cm. 3 x 2.7 x 3.7 cm mass in the posterior cervix. This may represent a fibroid. Slightly thickened trabeculated bladder wall. Head CT 10/20/21 08:18 IMPRESSION: No acute intracranial pathology. This critical result was discussed with Dr. Chu at 8:30 hours on 10/20/2021. It was ascertained that the content and urgency of the report was understood at the time of direct communication. Head CT 11/20/21 19:29 IMPRESSION: No acute intracranial pathology. Medications Medications Current Medications Acetaminophen (Acetaminophen 325 Mg Tablet) 650 mg PO Q6H PRN PRN Reason: Headache/Pain Mild Scale (1-3) Last Admin: 02/28/22 20:04 Dose: 650 mg Al Hydroxide/Mg Hydroxide (Magnesium Hydrox/Alum Hydrox 30 Ml Oral.Susp) 30 ml PO Q6H PRN PRN Reason: Heartburn/Nausea Apixaban (Apixaban 5 Mg Tablet) 5 mg PO BID [facility] Last Admin: 03/01/22 11:39 Dose: 5 mg Benztropine Mesylate (Benztropine Mesylate 1 Mg Tablet) 1 mg PO BID [facility] Last Admin: 03/01/22 11:39 Dose: 1 mg Bisacodyl (Bisacodyl 10 Mg Supp.Rect) 10 mg [place] DAILY PRN PRN Reason: Constipation Last Admin: 12/16/21 04:01 Dose: 10 mg Clotrimazole (Clotrimazole 1 % Cream 15 Gm Tube) 1 appl TOPICAL BID [facility]; Protocol Last Admin: 03/01/22 11:40 Dose: Not Given Clozapine (Clozapine 100 Mg Tablet) 100 mg PO DAILY [facility] Last Admin: 03/01/22 11:38 Dose: 100 mg Clozapine (Clozapine 100 Mg Tablet) 300 mg PO BEDTIME [facility] Last Admin: 02/28/22 20:03 Dose: 300 mg Clozapine (Clozapine 100 Mg Tablet) 100 mg PO DAILY@1700 [facility] Last Admin: 02/28/22 18:07 Dose: 100 mg Desmopressin Acetate (Desmopressin Acetate 0.2 Mg Tablet) 0.2 mg PO BID [facility] Last Admin: 03/01/22 11:39 Dose: 0.2 mg Docusate Sodium (Docusate Sodium 100 Mg Capsule) 100 mg PO BID [facility] Last Admin: 03/01/22 11:38 Dose: 100 mg Haloperidol (Haloperidol 5 Mg Tablet) 5 mg PO BID [facility] Last Admin: 03/01/22 11:38 Dose: 5 mg Hydrochlorothiazide (Hydrochlorothiazide 25 Mg Tablet) 25 mg PO DAILY [facility]; Protocol Last Admin: 03/01/22 11:39 Dose: 25 mg Hydroxyzine HCl (Hydroxyzine Hcl 25 Mg Tablet) 25 mg PO BEDTIME PRN PRN Reason: Anxiety Last Admin: 02/25/22 23:14 Dose: 25 mg Hydroxyzine HCl (Hydroxyzine Hcl 25 Mg Tablet) 25 mg PO BID PRN PRN Reason: Anxiety Last Admin: 02/24/22 16:35 Dose: 25 mg [place] Carbonate ([place] Carbonate 300 Mg Capsule) 300 mg PO BID [facility] Last Admin: 03/01/22 11:39 Dose: 300 mg Loperamide HCl (Loperamide Hcl 2 Mg Capsule) 4 mg PO Q4H PRN PRN Reason: Diarrhea Last Admin: 11/01/21 17:04 Dose: 4 mg Magnesium Hydroxide (Milk Of Magnesia 30 Ml Oral.Susp) 30 ml PO DAILY PRN PRN Reason: Constipation Last Admin: 01/30/22 22:11 Dose: 30 ml Mirtazapine (Mirtazapine 15 Mg Tablet) 15 mg PO BEDTIME [facility] Last Admin: 02/28/22 20:04 Dose: 15 mg Olanzapine (Olanzapine 10 Mg Vial) 5 mg IM STAT PRN PRN Reason: refusal of Clozaril PO Polyethylene Glycol (Polyethylene Glycol 3350 17 Gm Powd.Pack) 17 gm PO BID [facility] Last Admin: 03/01/22 11:40 Dose: Not Given Senna (Sennosides 8.6 Mg Tablet) 8.6 mg PO BEDTIME [facility] Last Admin: 02/28/22 20:04 Dose: 8.6 mg Trazodone HCl (Trazodone Hcl 50 Mg Tablet) 50 mg PO BEDTIME PRN PRN Reason: Insomnia Last Admin: 02/25/22 23:14 Dose: 50 mg Trolamine Salicylate/Aloe Vera (Trolamine Salicylate 10%/Aloe Cream 35.4 Gm) 1 appl TOPICAL TID PRN PRN Reason: neck pain Last Admin: 02/02/22 22:34 Dose: 1 appl Allergies Allergies Allergy/AdvReac Type Severity Reaction Status Date / Time No Known Allergies Allergy Unverified 05/01/20 19:42 [No Known Allergies*] Assessment & Plan Assessment & Plan (1) Schizophrenia, paranoid, chronic with acute exacerbation: Status: Acute Code(s): F20.0 - Paranoid schizophrenia (2) Hypertension: Status: Acute Code(s): I10 - Essential (primary) hypertension (3) Dementia: Status: Acute Code(s): F03.90 - Unspecified dementia without behavioral disturbance Plan Elderly female with a long history of schizoaffective disorder bipolar type who was admitted into the facility for exacerbation of psychosis and mood lability. The patient is on Clozaril and apparently she has not been fully compliant with treatment. 11/21 slipped, hit head on 11/20, head CT reviewed and unremarkable. We did a MOCA and she is technically demented at this moment Plan 1. The patient at this moment is on 3 psychotics, Clozaril , Haldol and Invega Sustenna. 2. Discontinue Haldol 5 mg IM if the patient refuses Clozaril and replace with Zyprexa. 3. Lower total Clozaril to 500 mg a day. We will not continue with Invega Sustenna sings there is no improvement with 3 antipsychotics. We will keep her on Clozaril and Haldol p.o.. 4. Waiting for placement I spent __20____ minutes with the patient and/or on the patient floor today, greater than?50% of which was spent counseling/coordinating care. Reason for contiued inpatient stay Substantial Risk for: inability to function, rapid decompensation and med/psych decompensation
[2022-03-01 18:00] VITALS: BP 100/49; PULSE 84; RESP 16; TEMP 36.3; O2SAT 96
[2022-03-01] MEDS: traZODone HCL 50 MG TABLET PO (21:19)
[2022-03-01] MEDS: Acetaminophen 325 MG TABLET 650 MG PO (21:19)
[2022-03-01] MEDS: cloZAPine 100 MG TABLET 300 MG PO (21:20)
[2022-03-01] MEDS: polyethylene glycoL 3350 17 GM POWD.PACK PO (21:21)
[2022-03-01] MEDS: Sennosides 8.6 MG TABLET PO (21:21)
[2022-03-01] MEDS: Mirtazapine 15 MG TABLET PO (21:21)
[2022-03-02 06:00] VITALS: BP 106/55; PULSE 89; RESP 18; TEMP 36.1; O2SAT 95
[2022-03-02] MEDS: Docusate Sodium 100 MG CAPSULE PO ×2 (09:48→21:14)
[2022-03-02] MEDS: HaloperidoL 5 MG TABLET PO ×2 (09:48→21:14)
[2022-03-02] MEDS: Lithium Carbonate 300 MG CAPSULE PO ×2 (09:48→21:14)
[2022-03-02] MEDS: cloZAPine 100 MG TABLET PO ×2 (09:48→16:32)
[2022-03-02] MEDS: Benztropine Mesylate 1 MG TABLET PO ×2 (09:48→21:15)
[2022-03-02] MEDS: Desmopressin Acetate 0.2 MG TABLET PO ×2 (09:48→21:15)
[2022-03-02] MEDS: hydroCHLOROthiazide 25 MG TABLET PO (09:49)
[2022-03-02] MEDS: Apixaban 5 MG TABLET PO ×2 (09:49→21:15)
--- NOTE | 2022-03-02 13:49 | HO.PSYCHPN ---
Subjective Subjective Date of Service: 03/02/22 Reason For Visit: psychotic disorder Subjective Notes: Conditional Voluntary Interim History: The nursing staff reported the patient has episodes of yelling when she is sleeping. On interview the patient reports chronic auditory hallucinations and residual anxiety. Mental Status Exam Mental Status Exam Patient Appearance: Appropriate Patient Orientation: Person and Situation Level of Consciousness: Awake Patient Behavior: Guarded and Cooperative Mood Description: Suspicious and Withdrawn Affect Description: Labile Patient Cognition Impaired: Yes Ability to Follow Directions: Good Speech Pattern: Clear Hallucinations: Auditory Delusions: Paranoid Ideation Thought Process: Illogical and Distracted Thought Content: positive for Poverty of Content and positive for Thought Blocking Judgement: Fair Diagnostics Vital Signs (24Hr): Vital Signs - 24 hr 03/01/22 18:00 03/02/22 06:00 Temperature 97.3 F 97.0 F Pulse Rate 84 89 Respiratory Rate 16 18 Blood Pressure 100/49 L 106/55 L Pulse Oximetry 96 95 Oxygen Delivery Method Room Air Room Air BMI result Body Mass Index 27.8 Labs Results: 01/22/22 08:07 02/20/22 19:35 Labs: Laboratory Results - last 48 hr 03/01/22 12:35 COVID-19 ([facility]) Negative COVID-19 Clin Com See Note Imaging Radiology Impressions: ITS Impressions Head CT 10/08/21 15:16 IMPRESSION: No acute intracranial pathology. Head CT 10/09/21 13:54 IMPRESSION: No acute intracranial pathology. Pelvic/Transvag US 10/13/21 09:24 IMPRESSION: Abnormally thickened endometrium for a postmenopausal patient measuring 0.9 cm. 3 x 2.7 x 3.7 cm mass in the posterior cervix. This may represent a fibroid. Slightly thickened trabeculated bladder wall. Head CT 10/20/21 08:18 IMPRESSION: No acute intracranial pathology. This critical result was discussed with Dr. Chu at 8:30 hours on 10/20/2021. It was ascertained that the content and urgency of the report was understood at the time of direct communication. Head CT 11/20/21 19:29 IMPRESSION: No acute intracranial pathology. Medications Medications Current Medications Acetaminophen (Acetaminophen 325 Mg Tablet) 650 mg PO Q6H PRN PRN Reason: Headache/Pain Mild Scale (1-3) Last Admin: 03/01/22 21:19 Dose: 650 mg Al Hydroxide/Mg Hydroxide (Magnesium Hydrox/Alum Hydrox 30 Ml Oral.Susp) 30 ml PO Q6H PRN PRN Reason: Heartburn/Nausea Apixaban (Apixaban 5 Mg Tablet) 5 mg PO BID [facility] Last Admin: 03/02/22 09:49 Dose: 5 mg Benztropine Mesylate (Benztropine Mesylate 1 Mg Tablet) 1 mg PO BID [facility] Last Admin: 03/02/22 09:48 Dose: 1 mg Bisacodyl (Bisacodyl 10 Mg Supp.Rect) 10 mg [place] DAILY PRN PRN Reason: Constipation Last Admin: 12/16/21 04:01 Dose: 10 mg Clotrimazole (Clotrimazole 1 % Cream 15 Gm Tube) 1 appl TOPICAL BID [facility]; Protocol Last Admin: 03/02/22 09:49 Dose: Not Given Clozapine (Clozapine 100 Mg Tablet) 100 mg PO DAILY [facility] Last Admin: 03/02/22 09:48 Dose: 100 mg Clozapine (Clozapine 100 Mg Tablet) 300 mg PO BEDTIME [facility] Last Admin: 03/01/22 21:20 Dose: 300 mg Clozapine (Clozapine 100 Mg Tablet) 100 mg PO DAILY@1700 [facility] Last Admin: 03/01/22 16:40 Dose: 100 mg Desmopressin Acetate (Desmopressin Acetate 0.2 Mg Tablet) 0.2 mg PO BID [facility] Last Admin: 03/02/22 09:48 Dose: 0.2 mg Docusate Sodium (Docusate Sodium 100 Mg Capsule) 100 mg PO BID [facility] Last Admin: 03/02/22 09:48 Dose: 100 mg Haloperidol (Haloperidol 5 Mg Tablet) 5 mg PO BID [facility] Last Admin: 03/02/22 09:48 Dose: 5 mg Hydrochlorothiazide (Hydrochlorothiazide 25 Mg Tablet) 25 mg PO DAILY [facility]; Protocol Last Admin: 03/02/22 09:49 Dose: 25 mg Hydroxyzine HCl (Hydroxyzine Hcl 25 Mg Tablet) 25 mg PO BEDTIME PRN PRN Reason: Anxiety Last Admin: 02/25/22 23:14 Dose: 25 mg Hydroxyzine HCl (Hydroxyzine Hcl 25 Mg Tablet) 25 mg PO BID PRN PRN Reason: Anxiety Last Admin: 02/24/22 16:35 Dose: 25 mg [place] Carbonate ([place] Carbonate 300 Mg Capsule) 300 mg PO BID [facility] Last Admin: 03/02/22 09:48 Dose: 300 mg Loperamide HCl (Loperamide Hcl 2 Mg Capsule) 4 mg PO Q4H PRN PRN Reason: Diarrhea Last Admin: 11/01/21 17:04 Dose: 4 mg Magnesium Hydroxide (Milk Of Magnesia 30 Ml Oral.Susp) 30 ml PO DAILY PRN PRN Reason: Constipation Last Admin: 01/30/22 22:11 Dose: 30 ml Mirtazapine (Mirtazapine 15 Mg Tablet) 15 mg PO BEDTIME [facility] Last Admin: 03/01/22 21:21 Dose: 15 mg Olanzapine (Olanzapine 10 Mg Vial) 5 mg IM STAT PRN PRN Reason: refusal of Clozaril PO Polyethylene Glycol (Polyethylene Glycol 3350 17 Gm Powd.Pack) 17 gm PO BID [facility] Last Admin: 03/02/22 09:50 Dose: Not Given Senna (Sennosides 8.6 Mg Tablet) 8.6 mg PO BEDTIME [facility] Last Admin: 03/01/22 21:21 Dose: 8.6 mg Trazodone HCl (Trazodone Hcl 50 Mg Tablet) 50 mg PO BEDTIME PRN PRN Reason: Insomnia Last Admin: 03/01/22 21:19 Dose: 50 mg Trolamine Salicylate/Aloe Vera (Trolamine Salicylate 10%/Aloe Cream 35.4 Gm) 1 appl TOPICAL TID PRN PRN Reason: neck pain Last Admin: 02/02/22 22:34 Dose: 1 appl Allergies Allergies Allergy/AdvReac Type Severity Reaction Status Date / Time No Known Allergies Allergy Unverified 05/01/20 19:42 [No Known Allergies*] Assessment & Plan Assessment & Plan (1) Schizophrenia, paranoid, chronic with acute exacerbation: Status: Acute Code(s): F20.0 - Paranoid schizophrenia (2) Hypertension: Status: Acute Code(s): I10 - Essential (primary) hypertension (3) Dementia: Status: Acute Code(s): F03.90 - Unspecified dementia without behavioral disturbance Plan Elderly female with a long history of schizoaffective disorder bipolar type who was admitted into the facility for exacerbation of psychosis and mood lability. The patient is on Clozaril and apparently she has not been fully compliant with treatment. 11/21 slipped, hit head on 11/20, head CT reviewed and unremarkable. We did a MOCA and she is technically demented at this moment Plan 1. The patient at this moment is on 3 psychotics, Clozaril , Haldol and Invega Sustenna. 2. Discontinue Haldol 5 mg IM if the patient refuses Clozaril and replace with Zyprexa. 3. Lower total Clozaril to 500 mg a day. We will not continue with Invega Sustenna sings there is no improvement with 3 antipsychotics. We will keep her on Clozaril and Haldol p.o.. 4. Waiting for placement 5. Start prazosin one mg p.o. t.i.d. to target nightmares I spent ___20___ minutes with the patient and/or on the patient floor today, greater than?50% of which was spent counseling/coordinating care. Reason for contiued inpatient stay Substantial Risk for: inability to function, rapid decompensation and med/psych decompensation
[2022-03-02] MEDS: hydrOXYzine HCL 25 MG TABLET PO (16:32)
[2022-03-02 18:00] VITALS: BP 114/58; PULSE 94; RESP 17; TEMP 36.7; O2SAT 92
[2022-03-02] MEDS: polyethylene glycoL 3350 17 GM POWD.PACK PO (21:13)
[2022-03-02] MEDS: Prazosin HCL 1 MG CAPSULE PO (21:14)
[2022-03-02] MEDS: cloZAPine 100 MG TABLET 300 MG PO (21:14)
[2022-03-02] MEDS: Sennosides 8.6 MG TABLET PO (21:15)
[2022-03-02] MEDS: Mirtazapine 15 MG TABLET PO (21:15)
[2022-03-03 07:30] VITALS: BP 107/57; PULSE 97; RESP 16; TEMP 36.7; O2SAT 92
[2022-03-03] MEDS: Apixaban 5 MG TABLET PO ×2 (11:38→20:34)
[2022-03-03] MEDS: Prazosin HCL 1 MG CAPSULE PO ×2 (11:38→14:12)
[2022-03-03] MEDS: HaloperidoL 5 MG TABLET PO ×2 (11:38→20:35)
[2022-03-03] MEDS: hydroCHLOROthiazide 25 MG TABLET PO (11:38)
[2022-03-03] MEDS: Docusate Sodium 100 MG CAPSULE PO ×2 (11:39→20:34)
[2022-03-03] MEDS: Lithium Carbonate 300 MG CAPSULE PO ×2 (11:39→20:30)
[2022-03-03] MEDS: polyethylene glycoL 3350 17 GM POWD.PACK PO (11:39)
[2022-03-03] MEDS: Benztropine Mesylate 1 MG TABLET PO ×2 (11:39→20:34)
[2022-03-03] MEDS: Desmopressin Acetate 0.2 MG TABLET PO ×2 (11:39→20:36)
[2022-03-03] MEDS: cloZAPine 100 MG TABLET PO ×2 (11:39→16:59)
[2022-03-03 12:43] VITALS: BP 119/58
[2022-03-03] MEDS: hydrOXYzine HCL 25 MG TABLET PO (14:12)
--- NOTE | 2022-03-03 16:19 | HO.PSYCHPN ---
Subjective Subjective Date of Service: 03/03/22 Reason For Visit: psychotic disorder Subjective Notes: Conditional Voluntary Interim History: The nursing staff reported the patient has been fully compliant with treatment. Still with nightmares and sporadic yelling but easily redirectable. On interview the patient denies new symptoms she wants to be discharged soon as possible Mental Status Exam Mental Status Exam Patient Appearance: Appropriate Patient Orientation: Person and Situation Level of Consciousness: Awake Patient Behavior: Cooperative Mood Description: Calm Affect Description: Labile Patient Cognition Impaired: Yes Ability to Follow Directions: Good Speech Pattern: Clear Hallucinations: Auditory Delusions: Paranoid Ideation Thought Process: Distracted Thought Content: positive for [place] and positive for Poverty of Content Judgement: Fair Diagnostics Vital Signs (24Hr): Vital Signs - 24 hr 03/02/22 18:00 03/03/22 07:30 03/03/22 12:43 Temperature 98.1 F 98.1 F Pulse Rate 94 97 Respiratory Rate 17 16 Blood Pressure 114/58 L 107/57 L 119/58 L Pulse Oximetry 92 92 Oxygen Delivery Method Room Air Room Air BMI result Body Mass Index 27.8 Labs Results: 01/22/22 08:07 02/20/22 19:35 Imaging Radiology Impressions: ITS Impressions Head CT 10/08/21 15:16 IMPRESSION: No acute intracranial pathology. Head CT 10/09/21 13:54 IMPRESSION: No acute intracranial pathology. Pelvic/Transvag US 10/13/21 09:24 IMPRESSION: Abnormally thickened endometrium for a postmenopausal patient measuring 0.9 cm. 3 x 2.7 x 3.7 cm mass in the posterior cervix. This may represent a fibroid. Slightly thickened trabeculated bladder wall. Head CT 10/20/21 08:18 IMPRESSION: No acute intracranial pathology. This critical result was discussed with Dr. Chu at 8:30 hours on 10/20/2021. It was ascertained that the content and urgency of the report was understood at the time of direct communication. Head CT 11/20/21 19:29 IMPRESSION: No acute intracranial pathology. Medications Medications Current Medications Acetaminophen (Acetaminophen 325 Mg Tablet) 650 mg PO Q6H PRN PRN Reason: Headache/Pain Mild Scale (1-3) Last Admin: 03/01/22 21:19 Dose: 650 mg Al Hydroxide/Mg Hydroxide (Magnesium Hydrox/Alum Hydrox 30 Ml Oral.Susp) 30 ml PO Q6H PRN PRN Reason: Heartburn/Nausea Apixaban (Apixaban 5 Mg Tablet) 5 mg PO BID [facility] Last Admin: 03/03/22 11:38 Dose: 5 mg Benztropine Mesylate (Benztropine Mesylate 1 Mg Tablet) 1 mg PO BID [facility] Last Admin: 03/03/22 11:39 Dose: 1 mg Bisacodyl (Bisacodyl 10 Mg Supp.Rect) 10 mg [place] DAILY PRN PRN Reason: Constipation Last Admin: 12/16/21 04:01 Dose: 10 mg Clotrimazole (Clotrimazole 1 % Cream 15 Gm Tube) 1 appl TOPICAL BID [facility]; Protocol Last Admin: 03/03/22 12:19 Dose: Not Given Clozapine (Clozapine 100 Mg Tablet) 100 mg PO DAILY [facility] Last Admin: 03/03/22 11:39 Dose: 100 mg Clozapine (Clozapine 100 Mg Tablet) 300 mg PO BEDTIME [facility] Last Admin: 03/02/22 21:14 Dose: 300 mg Clozapine (Clozapine 100 Mg Tablet) 100 mg PO DAILY@1700 [facility] Last Admin: 03/02/22 16:32 Dose: 100 mg Desmopressin Acetate (Desmopressin Acetate 0.2 Mg Tablet) 0.2 mg PO BID [facility] Last Admin: 03/03/22 11:39 Dose: 0.2 mg Docusate Sodium (Docusate Sodium 100 Mg Capsule) 100 mg PO BID [facility] Last Admin: 03/03/22 11:39 Dose: 100 mg Haloperidol (Haloperidol 5 Mg Tablet) 5 mg PO BID [facility] Last Admin: 03/03/22 11:38 Dose: 5 mg Hydrochlorothiazide (Hydrochlorothiazide 25 Mg Tablet) 25 mg PO DAILY [facility]; Protocol Last Admin: 03/03/22 11:38 Dose: 25 mg Hydroxyzine HCl (Hydroxyzine Hcl 25 Mg Tablet) 25 mg PO BEDTIME PRN PRN Reason: Anxiety Last Admin: 02/25/22 23:14 Dose: 25 mg Hydroxyzine HCl (Hydroxyzine Hcl 25 Mg Tablet) 25 mg PO BID PRN PRN Reason: Anxiety Last Admin: 03/03/22 14:12 Dose: 25 mg [place] Carbonate ([place] Carbonate 300 Mg Capsule) 300 mg PO BID [facility] Last Admin: 03/03/22 11:39 Dose: 300 mg Loperamide HCl (Loperamide Hcl 2 Mg Capsule) 4 mg PO Q4H PRN PRN Reason: Diarrhea Last Admin: 11/01/21 17:04 Dose: 4 mg Magnesium Hydroxide (Milk Of Magnesia 30 Ml Oral.Susp) 30 ml PO DAILY PRN PRN Reason: Constipation Last Admin: 01/30/22 22:11 Dose: 30 ml Mirtazapine (Mirtazapine 15 Mg Tablet) 15 mg PO BEDTIME [facility] Last Admin: 03/02/22 21:15 Dose: 15 mg Olanzapine (Olanzapine 10 Mg Vial) 5 mg IM STAT PRN PRN Reason: refusal of Clozaril PO Polyethylene Glycol (Polyethylene Glycol 3350 17 Gm Powd.Pack) 17 gm PO BID [facility] Last Admin: 03/03/22 11:39 Dose: 17 gm Prazosin HCl (Prazosin Hcl 1 Mg Capsule) 1 mg PO TID [facility]; Protocol Last Admin: 03/03/22 14:12 Dose: 1 mg Senna (Sennosides 8.6 Mg Tablet) 8.6 mg PO BEDTIME [facility] Last Admin: 03/02/22 21:15 Dose: 8.6 mg Trazodone HCl (Trazodone Hcl 50 Mg Tablet) 50 mg PO BEDTIME PRN PRN Reason: Insomnia Last Admin: 03/01/22 21:19 Dose: 50 mg Trolamine Salicylate/Aloe Vera (Trolamine Salicylate 10%/Aloe Cream 35.4 Gm) 1 appl TOPICAL TID PRN PRN Reason: neck pain Last Admin: 02/02/22 22:34 Dose: 1 appl Allergies Allergies Allergy/AdvReac Type Severity Reaction Status Date / Time No Known Allergies Allergy Unverified 05/01/20 19:42 [No Known Allergies*] Assessment & Plan Assessment & Plan (1) Schizophrenia, paranoid, chronic with acute exacerbation: Status: Acute Code(s): F20.0 - Paranoid schizophrenia (2) Hypertension: Status: Acute Code(s): I10 - Essential (primary) hypertension (3) Dementia: Status: Acute Code(s): F03.90 - Unspecified dementia without behavioral disturbance Plan Elderly female with a long history of schizoaffective disorder bipolar type who was admitted into the facility for exacerbation of psychosis and mood lability. The patient is on Clozaril and apparently she has not been fully compliant with treatment. 11/21 slipped, hit head on 11/20, head CT reviewed and unremarkable. We did a MOCA and she is technically demented at this moment Plan 1. The patient at this moment is on 3 psychotics, Clozaril , Haldol and Invega Sustenna. 2. Discontinue Haldol 5 mg IM if the patient refuses Clozaril and replace with Zyprexa. 3. Lower total Clozaril to 500 mg a day. We will not continue with Invega Sustenna sings there is no improvement with 3 antipsychotics. We will keep her on Clozaril and Haldol p.o.. 4. Waiting for placement 5. Increase prazosin up to 2 mg p.o. t.i.d. to target nightmares since her blood pressure becomes stable I spent __20____ minutes with the patient and/or on the patient floor today, greater than?50% of which was spent counseling/coordinating care. Reason for contiued inpatient stay Substantial Risk for: inability to function, rapid decompensation and med/psych decompensation
[2022-03-03 18:00] VITALS: BP 108/58; PULSE 90; RESP 16; TEMP 36.5; O2SAT 98
[2022-03-03] MEDS: cloZAPine 100 MG TABLET 300 MG PO (20:34)
[2022-03-03] MEDS: Sennosides 8.6 MG TABLET PO (20:34)
[2022-03-03] MEDS: Mirtazapine 15 MG TABLET PO (20:34)
[2022-03-03] MEDS: Prazosin HCL 1 MG CAPSULE 2 MG PO (20:36)
[2022-03-04 09:14] VITALS: BP 105/54; PULSE 86; TEMP 37.2; O2SAT 95
[2022-03-04] MEDS: Lithium Carbonate 300 MG CAPSULE PO ×2 (09:34→20:46)
[2022-03-04] MEDS: Benztropine Mesylate 1 MG TABLET PO ×2 (09:34→20:45)
[2022-03-04] MEDS: Desmopressin Acetate 0.2 MG TABLET PO ×2 (09:34→20:46)
[2022-03-04] MEDS: Prazosin HCL 1 MG CAPSULE 2 MG PO ×3 (09:34→20:46)
[2022-03-04] MEDS: HaloperidoL 5 MG TABLET PO ×2 (09:34→20:46)
[2022-03-04] MEDS: Docusate Sodium 100 MG CAPSULE PO ×2 (09:34→20:46)
[2022-03-04] MEDS: Apixaban 5 MG TABLET PO ×2 (09:34→20:45)
[2022-03-04] MEDS: hydroCHLOROthiazide 25 MG TABLET PO (09:34)
[2022-03-04] MEDS: cloZAPine 100 MG TABLET PO ×2 (09:37→16:28)
[2022-03-04] MEDS: Clotrimazole 1 % Cream 15 GM TUBE 1 APPL TOPICAL ×2 (09:42→21:10)
[2022-03-04] MEDS: polyethylene glycoL 3350 17 GM POWD.PACK PO ×2 (09:42→20:44)
--- NOTE | 2022-03-04 16:26 | HO.PSYCHPN ---
Subjective Subjective Date of Service: 03/04/22 Reason For Visit: psychotic disorder Subjective Notes: Conditional Voluntary Interim History: The nursing staff reported that the patient has been cooperative, fully compliant with treatment. As usual she has periods that she yells responding to internal stimuli a but she is easily redirectable. No side effects with the addition of prazosin 1 mg p.o. t.i.d. so we will increase it up to 2 mg. Mental Status Exam Mental Status Exam Patient Appearance: Well Grooomed Patient Orientation: Person and Situation Level of Consciousness: Awake Patient Behavior: Cooperative Mood Description: Withdrawn Affect Description: Labile Patient Cognition Impaired: Yes Ability to Follow Directions: Good Speech Pattern: Clear Hallucinations: Auditory Delusions: Paranoid Ideation and Grandiose Thought Process: Linear Thought Content: positive for [place] and positive for Poverty of Content Judgement: Fair Diagnostics Vital Signs (24Hr): Vital Signs - 24 hr 03/03/22 18:00 03/04/22 09:14 Temperature 97.7 F 98.9 F Pulse Rate 90 86 Respiratory Rate 16 Blood Pressure 108/58 L 105/54 L Pulse Oximetry 98 95 Oxygen Delivery Method Room Air Room Air BMI result Body Mass Index 27.8 Labs Results: 01/22/22 08:07 02/20/22 19:35 Imaging Radiology Impressions: ITS Impressions Head CT 10/08/21 15:16 IMPRESSION: No acute intracranial pathology. Head CT 10/09/21 13:54 IMPRESSION: No acute intracranial pathology. Pelvic/Transvag US 10/13/21 09:24 IMPRESSION: Abnormally thickened endometrium for a postmenopausal patient measuring 0.9 cm. 3 x 2.7 x 3.7 cm mass in the posterior cervix. This may represent a fibroid. Slightly thickened trabeculated bladder wall. Head CT 10/20/21 08:18 IMPRESSION: No acute intracranial pathology. This critical result was discussed with Dr. Chu at 8:30 hours on 10/20/2021. It was ascertained that the content and urgency of the report was understood at the time of direct communication. Head CT 11/20/21 19:29 IMPRESSION: No acute intracranial pathology. Medications Medications Current Medications Acetaminophen (Acetaminophen 325 Mg Tablet) 650 mg PO Q6H PRN PRN Reason: Headache/Pain Mild Scale (1-3) Last Admin: 03/01/22 21:19 Dose: 650 mg Al Hydroxide/Mg Hydroxide (Magnesium Hydrox/Alum Hydrox 30 Ml Oral.Susp) 30 ml PO Q6H PRN PRN Reason: Heartburn/Nausea Apixaban (Apixaban 5 Mg Tablet) 5 mg PO BID [facility] Last Admin: 03/04/22 09:34 Dose: 5 mg Benztropine Mesylate (Benztropine Mesylate 1 Mg Tablet) 1 mg PO BID [facility] Last Admin: 03/04/22 09:34 Dose: 1 mg Bisacodyl (Bisacodyl 10 Mg Supp.Rect) 10 mg [place] DAILY PRN PRN Reason: Constipation Last Admin: 12/16/21 04:01 Dose: 10 mg Clotrimazole (Clotrimazole 1 % Cream 15 Gm Tube) 1 appl TOPICAL BID [facility]; Protocol Last Admin: 03/04/22 09:42 Dose: 1 appl Clozapine (Clozapine 100 Mg Tablet) 100 mg PO DAILY [facility] Last Admin: 03/04/22 09:37 Dose: 100 mg Clozapine (Clozapine 100 Mg Tablet) 300 mg PO BEDTIME [facility] Last Admin: 03/03/22 20:34 Dose: 300 mg Clozapine (Clozapine 100 Mg Tablet) 100 mg PO DAILY@1700 [facility] Last Admin: 03/03/22 16:59 Dose: 100 mg Desmopressin Acetate (Desmopressin Acetate 0.2 Mg Tablet) 0.2 mg PO BID [facility] Last Admin: 03/04/22 09:34 Dose: 0.2 mg Docusate Sodium (Docusate Sodium 100 Mg Capsule) 100 mg PO BID [facility] Last Admin: 03/04/22 09:34 Dose: 100 mg Haloperidol (Haloperidol 5 Mg Tablet) 5 mg PO BID [facility] Last Admin: 03/04/22 09:34 Dose: 5 mg Hydrochlorothiazide (Hydrochlorothiazide 25 Mg Tablet) 25 mg PO DAILY [facility]; Protocol Last Admin: 03/04/22 09:34 Dose: 25 mg Hydroxyzine HCl (Hydroxyzine Hcl 25 Mg Tablet) 25 mg PO BEDTIME PRN PRN Reason: Anxiety Last Admin: 02/25/22 23:14 Dose: 25 mg Hydroxyzine HCl (Hydroxyzine Hcl 25 Mg Tablet) 25 mg PO BID PRN PRN Reason: Anxiety Last Admin: 03/03/22 14:12 Dose: 25 mg [place] Carbonate ([place] Carbonate 300 Mg Capsule) 300 mg PO BID [facility] Last Admin: 03/04/22 09:34 Dose: 300 mg Loperamide HCl (Loperamide Hcl 2 Mg Capsule) 4 mg PO Q4H PRN PRN Reason: Diarrhea Last Admin: 11/01/21 17:04 Dose: 4 mg Magnesium Hydroxide (Milk Of Magnesia 30 Ml Oral.Susp) 30 ml PO DAILY PRN PRN Reason: Constipation Last Admin: 01/30/22 22:11 Dose: 30 ml Mirtazapine (Mirtazapine 15 Mg Tablet) 15 mg PO BEDTIME [facility] Last Admin: 03/03/22 20:34 Dose: 15 mg Olanzapine (Olanzapine 10 Mg Vial) 5 mg IM STAT PRN PRN Reason: refusal of Clozaril PO Polyethylene Glycol (Polyethylene Glycol 3350 17 Gm Powd.Pack) 17 gm PO BID [facility] Last Admin: 03/04/22 09:42 Dose: 17 gm Prazosin HCl (Prazosin Hcl 1 Mg Capsule) 2 mg PO TID [facility]; Protocol Last Admin: 03/04/22 14:37 Dose: 2 mg Senna (Sennosides 8.6 Mg Tablet) 8.6 mg PO BEDTIME [facility] Last Admin: 03/03/22 20:34 Dose: 8.6 mg Trazodone HCl (Trazodone Hcl 50 Mg Tablet) 50 mg PO BEDTIME PRN PRN Reason: Insomnia Last Admin: 03/01/22 21:19 Dose: 50 mg Trolamine Salicylate/Aloe Vera (Trolamine Salicylate 10%/Aloe Cream 35.4 Gm) 1 appl TOPICAL TID PRN PRN Reason: neck pain Last Admin: 02/02/22 22:34 Dose: 1 appl Allergies Allergies Allergy/AdvReac Type Severity Reaction Status Date / Time No Known Allergies Allergy Unverified 05/01/20 19:42 [No Known Allergies*] Assessment & Plan Assessment & Plan (1) Schizophrenia, paranoid, chronic with acute exacerbation: Status: Acute Code(s): F20.0 - Paranoid schizophrenia (2) Hypertension: Status: Acute Code(s): I10 - Essential (primary) hypertension (3) Dementia: Status: Acute Code(s): F03.90 - Unspecified dementia without behavioral disturbance Plan Elderly female with a long history of schizoaffective disorder bipolar type who was admitted into the facility for exacerbation of psychosis and mood lability. The patient is on Clozaril and apparently she has not been fully compliant with treatment. 11/21 slipped, hit head on 11/20, head CT reviewed and unremarkable. We did a MOCA and she is technically demented at this moment 02/28 continue current tx plan Plan 1. The patient at this moment is on 3 psychotics, Clozaril , Haldol and Invega Sustenna. 2. Discontinue Haldol 5 mg IM if the patient refuses Clozaril and replace with Zyprexa. 3. Lower total Clozaril to 500 mg a day. We will not continue with Invega Sustenna sings there is no improvement with 3 antipsychotics. We will keep her on Clozaril and Haldol p.o.. 4. Waiting for placement 5. Increase prazosin up to 2 mg p.o. t.i.d. to target nightmares since her blood pressure becomes stable I spent __20____ minutes with the patient and/or on the patient floor today, greater than?50% of which was spent counseling/coordinating care. Reason for contiued inpatient stay Substantial Risk for: inability to function, rapid decompensation and med/psych decompensation
[2022-03-04 18:00] VITALS: BP 111/57; PULSE 89; RESP 18; TEMP 37.1; O2SAT 96
[2022-03-04] MEDS: cloZAPine 100 MG TABLET 300 MG PO (20:46)
[2022-03-04] MEDS: Mirtazapine 15 MG TABLET PO (20:47)
[2022-03-04] MEDS: Sennosides 8.6 MG TABLET PO (20:47)
[2022-03-04] MEDS: Acetaminophen 325 MG TABLET 650 MG PO (20:47)
[2022-03-04] MEDS: hydrOXYzine HCL 25 MG TABLET PO (20:48)
[2022-03-04] MEDS: traZODone HCL 50 MG TABLET PO (20:48)
[2022-03-05 06:00] VITALS: BP 105/56; PULSE 79; RESP 15; TEMP 36.6; O2SAT 96
[2022-03-05 08:09] LABS: Neut%MD 61.7 %; Neutrophils Absolute Auto 3.9 x10*3/uL (2.0-8.3); WBCANC 6.3 X10*3/uL
[2022-03-05] MEDS: Prazosin HCL 1 MG CAPSULE 2 MG PO ×2 (12:29→21:07)
[2022-03-05] MEDS: cloZAPine 100 MG TABLET PO (12:30)
[2022-03-05] MEDS: Benztropine Mesylate 1 MG TABLET PO ×2 (12:30→21:07)
[2022-03-05] MEDS: HaloperidoL 5 MG TABLET PO ×2 (12:30→21:07)
[2022-03-05] MEDS: Apixaban 5 MG TABLET PO ×2 (12:30→21:07)
[2022-03-05] MEDS: hydroCHLOROthiazide 25 MG TABLET PO (12:30)
[2022-03-05] MEDS: Lithium Carbonate 300 MG CAPSULE PO ×2 (12:30→21:07)
[2022-03-05] MEDS: Docusate Sodium 100 MG CAPSULE PO (12:30)
[2022-03-05] MEDS: Desmopressin Acetate 0.2 MG TABLET PO ×2 (12:31→21:07)
--- NOTE | 2022-03-05 14:26 | P.PNPSI_ITS ---
Subjective Subjective Date of Service: 03/05/22 Reason For Visit: psychotic disorder Subjective Notes: Conditional Voluntary Interim History: The nursing staff reported the patient complained of back pain that resolved with Tylenol. On interview the patient denies new symptoms, sporadic nightmares no side effects with prazosin. Mental Status Exam Mental Status Exam Patient Appearance: Appropriate Patient Orientation: Person Level of Consciousness: Alert Patient Behavior: Cooperative Mood Description: Constricted Affect Description: Calm Patient Cognition Impaired: Yes Ability to Follow Directions: Good Speech Pattern: Clear Hallucinations: Auditory Delusions: Paranoid Ideation Perceptual Disturbances: Hallucinations Thought Process: Distracted Thought Content: positive for [place], positive for Obsessional Thoughts and positive for Poverty of Content Judgement: Fair Diagnostics Vital Signs (24Hr): Vital Signs - 24 hr 03/04/22 18:00 03/05/22 06:00 Temperature 98.8 F 97.9 F Pulse Rate 89 79 Respiratory Rate 18 15 Blood Pressure 111/57 L 105/56 L Pulse Oximetry 96 96 Oxygen Delivery Method Room Air Room Air BMI result Body Mass Index 27.8 Labs Results: 01/22/22 08:07 02/20/22 19:35 Labs: Laboratory Results - last 48 hr 03/05/22 07:56 Absolute Neuts (auto) 3.9 Imaging Radiology Impressions: ITS Impressions Head CT 10/08/21 15:16 IMPRESSION: No acute intracranial pathology. Head CT 10/09/21 13:54 IMPRESSION: No acute intracranial pathology. Pelvic/Transvag US 10/13/21 09:24 IMPRESSION: Abnormally thickened endometrium for a postmenopausal patient measuring 0.9 cm. 3 x 2.7 x 3.7 cm mass in the posterior cervix. This may represent a fibroid. Slightly thickened trabeculated bladder wall. Head CT 10/20/21 08:18 IMPRESSION: No acute intracranial pathology. This critical result was discussed with Dr. Chu at 8:30 hours on 10/20/2021. It was ascertained that the content and urgency of the report was understood at the time of direct communication. Head CT 11/20/21 19:29 IMPRESSION: No acute intracranial pathology. Medications Medications Current Medications Acetaminophen (Acetaminophen 325 Mg Tablet) 650 mg PO Q6H PRN PRN Reason: Headache/Pain Mild Scale (1-3) Last Admin: 03/04/22 20:47 Dose: 650 mg Al Hydroxide/Mg Hydroxide (Magnesium Hydrox/Alum Hydrox 30 Ml Oral.Susp) 30 ml PO Q6H PRN PRN Reason: Heartburn/Nausea Apixaban (Apixaban 5 Mg Tablet) 5 mg PO BID [facility] Last Admin: 03/05/22 12:30 Dose: 5 mg Benztropine Mesylate (Benztropine Mesylate 1 Mg Tablet) 1 mg PO BID [facility] Last Admin: 03/05/22 12:30 Dose: 1 mg Bisacodyl (Bisacodyl 10 Mg Supp.Rect) 10 mg [place] DAILY PRN PRN Reason: Constipation Last Admin: 12/16/21 04:01 Dose: 10 mg Clotrimazole (Clotrimazole 1 % Cream 15 Gm Tube) 1 appl TOPICAL BID [facility]; Protocol Last Admin: 03/04/22 21:10 Dose: 1 appl Clozapine (Clozapine 100 Mg Tablet) 100 mg PO DAILY [facility] Last Admin: 03/05/22 12:30 Dose: 100 mg Clozapine (Clozapine 100 Mg Tablet) 300 mg PO BEDTIME [facility] Last Admin: 03/04/22 20:46 Dose: 300 mg Clozapine (Clozapine 100 Mg Tablet) 100 mg PO DAILY@1700 [facility] Last Admin: 03/04/22 16:28 Dose: 100 mg Desmopressin Acetate (Desmopressin Acetate 0.2 Mg Tablet) 0.2 mg PO BID [facility] Last Admin: 03/05/22 12:31 Dose: 0.2 mg Docusate Sodium (Docusate Sodium 100 Mg Capsule) 100 mg PO BID [facility] Last Admin: 03/05/22 12:30 Dose: 100 mg Haloperidol (Haloperidol 5 Mg Tablet) 5 mg PO BID [facility] Last Admin: 03/05/22 12:30 Dose: 5 mg Hydrochlorothiazide (Hydrochlorothiazide 25 Mg Tablet) 25 mg PO DAILY [facility]; Protocol Last Admin: 03/05/22 12:30 Dose: 25 mg Hydroxyzine HCl (Hydroxyzine Hcl 25 Mg Tablet) 25 mg PO BEDTIME PRN PRN Reason: Anxiety Last Admin: 03/04/22 20:48 Dose: 25 mg Hydroxyzine HCl (Hydroxyzine Hcl 25 Mg Tablet) 25 mg PO BID PRN PRN Reason: Anxiety Last Admin: 03/03/22 14:12 Dose: 25 mg [place] Carbonate ([place] Carbonate 300 Mg Capsule) 300 mg PO BID [facility] Last Admin: 03/05/22 12:30 Dose: 300 mg Loperamide HCl (Loperamide Hcl 2 Mg Capsule) 4 mg PO Q4H PRN PRN Reason: Diarrhea Last Admin: 11/01/21 17:04 Dose: 4 mg Magnesium Hydroxide (Milk Of Magnesia 30 Ml Oral.Susp) 30 ml PO DAILY PRN PRN Reason: Constipation Last Admin: 01/30/22 22:11 Dose: 30 ml Mirtazapine (Mirtazapine 15 Mg Tablet) 15 mg PO BEDTIME [facility] Last Admin: 03/04/22 20:47 Dose: 15 mg Olanzapine (Olanzapine 10 Mg Vial) 5 mg IM STAT PRN PRN Reason: refusal of Clozaril PO Polyethylene Glycol (Polyethylene Glycol 3350 17 Gm Powd.Pack) 17 gm PO BID [facility] Last Admin: 03/04/22 20:44 Dose: 17 gm Prazosin HCl (Prazosin Hcl 1 Mg Capsule) 2 mg PO TID [facility]; Protocol Last Admin: 03/05/22 12:29 Dose: 2 mg Senna (Sennosides 8.6 Mg Tablet) 8.6 mg PO BEDTIME [facility] Last Admin: 03/04/22 20:47 Dose: 8.6 mg Trazodone HCl (Trazodone Hcl 50 Mg Tablet) 50 mg PO BEDTIME PRN PRN Reason: Insomnia Last Admin: 03/04/22 20:48 Dose: 50 mg Trolamine Salicylate/Aloe Vera (Trolamine Salicylate 10%/Aloe Cream 35.4 Gm) 1 appl TOPICAL TID PRN PRN Reason: neck pain Last Admin: 02/02/22 22:34 Dose: 1 appl Allergies Allergies Allergy/AdvReac Type Severity Reaction Status Date / Time No Known Allergies Allergy Unverified 05/01/20 19:42 [No Known Allergies*] Assessment & Plan Assessment & Plan (1) Schizophrenia, paranoid, chronic with acute exacerbation: Status: Acute Code(s): F20.0 - Paranoid schizophrenia (2) Hypertension: Status: Acute Code(s): I10 - Essential (primary) hypertension (3) Dementia: Status: Acute Code(s): F03.90 - Unspecified dementia without behavioral disturbance Plan Elderly female with a long history of schizoaffective disorder bipolar type who was admitted into the facility for exacerbation of psychosis and mood lability. The patient is on Clozaril and apparently she has not been fully compliant with treatment. 11/21 slipped, hit head on 11/20, head CT reviewed and unremarkable. We did a MOCA and she is technically demented at this moment 02/28 continue current tx plan Plan 1. The patient at this moment is on 3 psychotics, Clozaril , Haldol and Invega Sustenna. 2. Discontinue Haldol 5 mg IM if the patient refuses Clozaril and replace with Zyprexa. 3. Lower total Clozaril to 500 mg a day. We will not continue with Invega Sustenna sings there is no improvement with 3 antipsychotics. We will keep her on Clozaril and Haldol p.o.. 4. Waiting for placement 5. Increase prazosin up to 2 mg p.o. t.i.d. to target nightmares since her blood pressure becomes stable I spent ___20___ minutes with the patient and/or on the patient floor today, greater than?50% of which was spent counseling/coordinating care. Reason for contiued inpatient stay Substantial Risk for: inability to function, rapid decompensation and med/psych decompensation
[2022-03-05] MEDS: OLANZapine 10 MG VIAL 5 MG IM (17:29)
[2022-03-05 21:00] VITALS: BP 149/60; PULSE 94; RESP 18; TEMP 36.4; O2SAT 96
[2022-03-05] MEDS: Sennosides 8.6 MG TABLET PO (21:08)
[2022-03-05] MEDS: cloZAPine 100 MG TABLET 300 MG PO (21:08)
[2022-03-05] MEDS: Mirtazapine 15 MG TABLET PO (21:08)
[2022-03-06 06:00] VITALS: BP 119/69; PULSE 79; RESP 16; TEMP 36.6; O2SAT 92
--- NOTE | 2022-03-06 11:37 | P.PNPSI_ITS ---
Subjective Subjective Date of Service: 03/06/22 Reason For Visit: psychotic disorder Subjective Notes: Section 8 Interim History: Pt in bed. She reports doing well. She reports voices come and go but asks that we don't talk about it. She denies SI/HI. Per nursing, pt intermittently declines medications but mostly compliant. No behavioral concerns. Review of Systems Review of Systems Constipation Yes all other systems are reviewed and are negative, Unobtainable due to mental condition and Unobtainable due to mental status Mental Status Exam Mental Status Exam Narrative: adequately dressed. cooperative. no PMA/PMR. speech halting, decr in rate and amount. intermittent loud vocalizations of frustration. apparent thought blocking. affect hyper-intense and constricted. mood not assessed. no SI/HI/AVH expressed. Diagnostics Vital Signs (24Hr): Vital Signs - 24 hr 03/06/22 20:15 03/07/22 06:00 Temperature 97.6 F 97.6 F Pulse Rate 86 76 Respiratory Rate 17 16 Blood Pressure 110/55 L 122/68 Pulse Oximetry 96 94 Oxygen Delivery Method Room Air Room Air BMI result Body Mass Index 27.8 Labs Results: 01/22/22 08:07 02/20/22 19:35 Imaging Radiology Impressions: ITS Impressions Head CT 10/08/21 15:16 IMPRESSION: No acute intracranial pathology. Head CT 10/09/21 13:54 IMPRESSION: No acute intracranial pathology. Pelvic/Transvag US 10/13/21 09:24 IMPRESSION: Abnormally thickened endometrium for a postmenopausal patient measuring 0.9 cm. 3 x 2.7 x 3.7 cm mass in the posterior cervix. This may represent a fibroid. Slightly thickened trabeculated bladder wall. Head CT 10/20/21 08:18 IMPRESSION: No acute intracranial pathology. This critical result was discussed with Dr. Chu at 8:30 hours on 10/20/2021. It was ascertained that the content and urgency of the report was understood at the time of direct communication. Head CT 11/20/21 19:29 IMPRESSION: No acute intracranial pathology. Medications Medications Current Medications Acetaminophen (Acetaminophen 325 Mg Tablet) 650 mg PO Q6H PRN PRN Reason: Headache/Pain Mild Scale (1-3) Last Admin: 03/04/22 20:47 Dose: 650 mg Al Hydroxide/Mg Hydroxide (Magnesium Hydrox/Alum Hydrox 30 Ml Oral.Susp) 30 ml PO Q6H PRN PRN Reason: Heartburn/Nausea Apixaban (Apixaban 5 Mg Tablet) 5 mg PO BID [facility] Last Admin: 03/07/22 11:26 Dose: 5 mg Benztropine Mesylate (Benztropine Mesylate 1 Mg Tablet) 1 mg PO BID [facility] Last Admin: 03/07/22 11:27 Dose: 1 mg Bisacodyl (Bisacodyl 10 Mg Supp.Rect) 10 mg [place] DAILY PRN PRN Reason: Constipation Last Admin: 12/16/21 04:01 Dose: 10 mg Carbamide Peroxide (Carbamide Peroxide 6.5% Otic 15 Ml Drpbtl) 5 drop EAR-BOTH BID [facility] Stop: 03/11/22 11:57 Last Admin: 03/07/22 12:55 Dose: 5 drop Clozapine (Clozapine 100 Mg Tablet) 100 mg PO DAILY [facility] Last Admin: 03/07/22 11:27 Dose: 100 mg Clozapine (Clozapine 100 Mg Tablet) 300 mg PO BEDTIME [facility] Last Admin: 03/06/22 20:23 Dose: 300 mg Clozapine (Clozapine 100 Mg Tablet) 100 mg PO DAILY@1700 [facility] Last Admin: 03/06/22 17:09 Dose: 100 mg Desmopressin Acetate (Desmopressin Acetate 0.2 Mg Tablet) 0.2 mg PO BID [facility] Last Admin: 03/07/22 11:26 Dose: 0.2 mg Docusate Sodium (Docusate Sodium 100 Mg Capsule) 100 mg PO BID [facility] Last Admin: 03/07/22 11:26 Dose: 100 mg Haloperidol (Haloperidol 5 Mg Tablet) 5 mg PO BID [facility] Last Admin: 03/07/22 11:26 Dose: 5 mg Hydrochlorothiazide (Hydrochlorothiazide 25 Mg Tablet) 25 mg PO DAILY [facility]; Protocol Last Admin: 03/07/22 11:26 Dose: 25 mg Hydroxyzine HCl (Hydroxyzine Hcl 25 Mg Tablet) 25 mg PO BEDTIME PRN PRN Reason: Anxiety Last Admin: 03/04/22 20:48 Dose: 25 mg Hydroxyzine HCl (Hydroxyzine Hcl 25 Mg Tablet) 25 mg PO BID PRN PRN Reason: Anxiety Last Admin: 03/03/22 14:12 Dose: 25 mg [place] Carbonate ([place] Carbonate 300 Mg Capsule) 300 mg PO BID [facility] Last Admin: 03/07/22 11:27 Dose: 300 mg Loperamide HCl (Loperamide Hcl 2 Mg Capsule) 4 mg PO Q4H PRN PRN Reason: Diarrhea Last Admin: 11/01/21 17:04 Dose: 4 mg Magnesium Hydroxide (Milk Of Magnesia 30 Ml Oral.Susp) 30 ml PO DAILY PRN PRN Reason: Constipation Last Admin: 01/30/22 22:11 Dose: 30 ml Miconazole Nitrate (Miconazole Nitrate 2% Oint 57 Gm Oint...G.) 1 appl TOPICAL BID [facility]; Protocol Last Admin: 03/07/22 14:22 Dose: Not Given Mirtazapine (Mirtazapine 15 Mg Tablet) 15 mg PO BEDTIME [facility] Last Admin: 03/06/22 20:23 Dose: 15 mg Olanzapine (Olanzapine 10 Mg Vial) 5 mg IM STAT PRN PRN Reason: refusal of Clozaril PO Last Admin: 03/05/22 17:29 Dose: 5 mg Polyethylene Glycol (Polyethylene Glycol 3350 17 Gm Powd.Pack) 17 gm PO BID [facility] Last Admin: 03/07/22 11:41 Dose: Not Given Prazosin HCl (Prazosin Hcl 1 Mg Capsule) 2 mg PO TID [facility]; Protocol Last Admin: 03/07/22 11:26 Dose: 2 mg Senna (Sennosides 8.6 Mg Tablet) 8.6 mg PO BEDTIME [facility] Last Admin: 03/06/22 20:23 Dose: 8.6 mg Trazodone HCl (Trazodone Hcl 50 Mg Tablet) 50 mg PO BEDTIME PRN PRN Reason: Insomnia Last Admin: 03/04/22 20:48 Dose: 50 mg Trolamine Salicylate/Aloe Vera (Trolamine Salicylate 10%/Aloe Cream 35.4 Gm) 1 appl TOPICAL TID PRN PRN Reason: neck pain Last Admin: 02/02/22 22:34 Dose: 1 appl Allergies Allergies Allergy/AdvReac Type Severity Reaction Status Date / Time No Known Allergies Allergy Unverified 05/01/20 19:42 [No Known Allergies*] Assessment & Plan Assessment & Plan (1) Schizophrenia, paranoid, chronic with acute exacerbation: Status: Acute Code(s): F20.0 - Paranoid schizophrenia (2) Hypertension: Status: Acute Code(s): I10 - Essential (primary) hypertension (3) Dementia: Status: Acute Code(s): F03.90 - Unspecified dementia without behavioral disturbance Plan Elderly female with a long history of schizoaffective disorder bipolar type who was admitted into the facility for exacerbation of psychosis and mood lability. The patient is on Clozaril and apparently she has not been fully compliant with treatment. 11/21 slipped, hit head on 11/20, head CT reviewed and unremarkable. We did a MOCA and she is technically demented at this moment 02/28 continue current tx plan Plan 1. The patient at this moment is on 3 psychotics, Clozaril , Haldol and Invega Sustenna. 2. Discontinue Haldol 5 mg IM if the patient refuses Clozaril and replace with Zyprexa. 3. Lower total Clozaril to 500 mg a day. We will not continue with Invega Sustenna sings there is no improvement with 3 antipsychotics. We will keep her on Clozaril and Haldol p.o.. 4. Waiting for placement 5. Increase prazosin up to 2 mg p.o. t.i.d. to target nightmares since her blood pressure becomes stable 03/06 continue current medications. I spent minutes with the patient and/or on the patient floor today, greater than?50% of which was spent counseling/coordinating care. Reason for contiued inpatient stay Substantial Risk for: inability to function
[2022-03-06] MEDS: Desmopressin Acetate 0.2 MG TABLET PO ×2 (12:25→20:23)
[2022-03-06] MEDS: Docusate Sodium 100 MG CAPSULE PO ×2 (12:25→20:23)
[2022-03-06] MEDS: HaloperidoL 5 MG TABLET PO ×2 (12:25→20:23)
[2022-03-06] MEDS: hydroCHLOROthiazide 25 MG TABLET PO (12:26)
[2022-03-06] MEDS: Apixaban 5 MG TABLET PO ×2 (12:26→20:23)
[2022-03-06] MEDS: Lithium Carbonate 300 MG CAPSULE PO ×2 (12:26→20:23)
[2022-03-06] MEDS: Prazosin HCL 1 MG CAPSULE 2 MG PO ×3 (12:26→20:24)
[2022-03-06] MEDS: polyethylene glycoL 3350 17 GM POWD.PACK PO (12:27)
[2022-03-06] MEDS: cloZAPine 100 MG TABLET PO ×2 (12:27→17:09)
[2022-03-06 20:15] VITALS: BP 110/55; PULSE 86; RESP 17; TEMP 36.4; O2SAT 96
[2022-03-06] MEDS: cloZAPine 100 MG TABLET 300 MG PO (20:23)
[2022-03-06] MEDS: Sennosides 8.6 MG TABLET PO (20:23)
[2022-03-06] MEDS: Mirtazapine 15 MG TABLET PO (20:23)
[2022-03-06] MEDS: Benztropine Mesylate 1 MG TABLET PO (20:23)
[2022-03-07 06:00] VITALS: BP 122/68; PULSE 76; RESP 16; TEMP 36.4; O2SAT 94
[2022-03-07] MEDS: Docusate Sodium 100 MG CAPSULE PO ×2 (11:26→20:16)
[2022-03-07] MEDS: Apixaban 5 MG TABLET PO ×2 (11:26→20:16)
[2022-03-07] MEDS: Prazosin HCL 1 MG CAPSULE 2 MG PO ×3 (11:26→20:16)
[2022-03-07] MEDS: hydroCHLOROthiazide 25 MG TABLET PO (11:26)
[2022-03-07] MEDS: Desmopressin Acetate 0.2 MG TABLET PO ×2 (11:26→20:16)
[2022-03-07] MEDS: HaloperidoL 5 MG TABLET PO ×2 (11:26→20:16)
[2022-03-07] MEDS: Benztropine Mesylate 1 MG TABLET PO ×2 (11:27→20:16)
[2022-03-07] MEDS: cloZAPine 100 MG TABLET PO ×2 (11:27→16:09)
[2022-03-07] MEDS: Lithium Carbonate 300 MG CAPSULE PO ×2 (11:27→20:16)
--- NOTE | 2022-03-07 11:39 | P.PNPSI_ITS ---
Subjective Subjective Date of Service: 03/07/22 Reason For Visit: psychotic disorder Subjective Notes: Conditional Voluntary Interim History: Pt sitting in TV room, well groomed. She reports she is not good, although pt does not appear in any emotional or physical distress. She denies SI/HI. Pt reports intermittent AH, but does not want to talk about them as it is upsetting her. Per nursing, no behavioral concerns. Medication Compliance: Yes Side effects from medications: No Review of Systems Review of Systems Constipation Yes all other systems are reviewed and are negative, Unobtainable due to mental condition and Unobtainable due to mental status Mental Status Exam Mental Status Exam Narrative: adequately dressed. cooperative. no PMA/PMR. speech halting, decr in rate and amount. intermittent loud vocalizations of frustration. apparent thought blocking. affect hyper-intense and constricted. mood not assessed. no SI/H I/AVH expressed. Diagnostics Vital Signs (24Hr): Vital Signs - 24 hr 03/06/22 20:15 03/07/22 06:00 Temperature 97.6 F 97.6 F Pulse Rate 86 76 Respiratory Rate 17 16 Blood Pressure 110/55 L 122/68 Pulse Oximetry 96 94 Oxygen Delivery Method Room Air Room Air BMI result Body Mass Index 27.8 Labs Results: 01/22/22 08:07 02/20/22 19:35 Imaging Radiology Impressions: ITS Impressions Head CT 10/08/21 15:16 IMPRESSION: No acute intracranial pathology. Head CT 10/09/21 13:54 IMPRESSION: No acute intracranial pathology. Pelvic/Transvag US 10/13/21 09:24 IMPRESSION: Abnormally thickened endometrium for a postmenopausal patient measuring 0.9 cm. 3 x 2.7 x 3.7 cm mass in the posterior cervix. This may represent a fibroid. Slightly thickened trabeculated bladder wall. Head CT 10/20/21 08:18 IMPRESSION: No acute intracranial pathology. This critical result was discussed with Dr. Chu at 8:30 hours on 10/20/2021. It was ascertained that the content and urgency of the report was understood at the time of direct communication. Head CT 11/20/21 19:29 IMPRESSION: No acute intracranial pathology. Medications Medications Current Medications Acetaminophen (Acetaminophen 325 Mg Tablet) 650 mg PO Q6H PRN PRN Reason: Headache/Pain Mild Scale (1-3) Last Admin: 03/04/22 20:47 Dose: 650 mg Al Hydroxide/Mg Hydroxide (Magnesium Hydrox/Alum Hydrox 30 Ml Oral.Susp) 30 ml PO Q6H PRN PRN Reason: Heartburn/Nausea Apixaban (Apixaban 5 Mg Tablet) 5 mg PO BID [facility] Last Admin: 03/07/22 11:26 Dose: 5 mg Benztropine Mesylate (Benztropine Mesylate 1 Mg Tablet) 1 mg PO BID [facility] Last Admin: 03/07/22 11:27 Dose: 1 mg Bisacodyl (Bisacodyl 10 Mg Supp.Rect) 10 mg [place] DAILY PRN PRN Reason: Constipation Last Admin: 12/16/21 04:01 Dose: 10 mg Carbamide Peroxide (Carbamide Peroxide 6.5% Otic 15 Ml Drpbtl) 5 drop EAR-BOTH BID [facility] Stop: 03/11/22 11:57 Last Admin: 03/07/22 12:55 Dose: 5 drop Clozapine (Clozapine 100 Mg Tablet) 100 mg PO DAILY [facility] Last Admin: 03/07/22 11:27 Dose: 100 mg Clozapine (Clozapine 100 Mg Tablet) 300 mg PO BEDTIME [facility] Last Admin: 03/06/22 20:23 Dose: 300 mg Clozapine (Clozapine 100 Mg Tablet) 100 mg PO DAILY@1700 [facility] Last Admin: 03/06/22 17:09 Dose: 100 mg Desmopressin Acetate (Desmopressin Acetate 0.2 Mg Tablet) 0.2 mg PO BID [facility] Last Admin: 03/07/22 11:26 Dose: 0.2 mg Docusate Sodium (Docusate Sodium 100 Mg Capsule) 100 mg PO BID [facility] Last Admin: 03/07/22 11:26 Dose: 100 mg Haloperidol (Haloperidol 5 Mg Tablet) 5 mg PO BID [facility] Last Admin: 03/07/22 11:26 Dose: 5 mg Hydrochlorothiazide (Hydrochlorothiazide 25 Mg Tablet) 25 mg PO DAILY [facility]; Protocol Last Admin: 03/07/22 11:26 Dose: 25 mg Hydroxyzine HCl (Hydroxyzine Hcl 25 Mg Tablet) 25 mg PO BEDTIME PRN PRN Reason: Anxiety Last Admin: 03/04/22 20:48 Dose: 25 mg Hydroxyzine HCl (Hydroxyzine Hcl 25 Mg Tablet) 25 mg PO BID PRN PRN Reason: Anxiety Last Admin: 03/03/22 14:12 Dose: 25 mg [place] Carbonate ([place] Carbonate 300 Mg Capsule) 300 mg PO BID [facility] Last Admin: 03/07/22 11:27 Dose: 300 mg Loperamide HCl (Loperamide Hcl 2 Mg Capsule) 4 mg PO Q4H PRN PRN Reason: Diarrhea Last Admin: 11/01/21 17:04 Dose: 4 mg Magnesium Hydroxide (Milk Of Magnesia 30 Ml Oral.Susp) 30 ml PO DAILY PRN PRN Reason: Constipation Last Admin: 01/30/22 22:11 Dose: 30 ml Miconazole Nitrate (Miconazole Nitrate 2% Oint 57 Gm Oint...G.) 1 appl TOPICAL BID [facility]; Protocol Last Admin: 03/07/22 14:22 Dose: Not Given Mirtazapine (Mirtazapine 15 Mg Tablet) 15 mg PO BEDTIME [facility] Last Admin: 03/06/22 20:23 Dose: 15 mg Olanzapine (Olanzapine 10 Mg Vial) 5 mg IM STAT PRN PRN Reason: refusal of Clozaril PO Last Admin: 03/05/22 17:29 Dose: 5 mg Polyethylene Glycol (Polyethylene Glycol 3350 17 Gm Powd.Pack) 17 gm PO BID [facility] Last Admin: 03/07/22 11:41 Dose: Not Given Prazosin HCl (Prazosin Hcl 1 Mg Capsule) 2 mg PO TID [facility]; Protocol Last Admin: 03/07/22 11:26 Dose: 2 mg Senna (Sennosides 8.6 Mg Tablet) 8.6 mg PO BEDTIME [facility] Last Admin: 03/06/22 20:23 Dose: 8.6 mg Trazodone HCl (Trazodone Hcl 50 Mg Tablet) 50 mg PO BEDTIME PRN PRN Reason: Insomnia Last Admin: 03/04/22 20:48 Dose: 50 mg Trolamine Salicylate/Aloe Vera (Trolamine Salicylate 10%/Aloe Cream 35.4 Gm) 1 appl TOPICAL TID PRN PRN Reason: neck pain Last Admin: 02/02/22 22:34 Dose: 1 appl Allergies Allergies Allergy/AdvReac Type Severity Reaction Status Date / Time No Known Allergies Allergy Unverified 05/01/20 19:42 [No Known Allergies*] Assessment & Plan Assessment & Plan (1) Schizophrenia, paranoid, chronic with acute exacerbation: Status: Acute Code(s): F20.0 - Paranoid schizophrenia (2) Hypertension: Status: Acute Code(s): I10 - Essential (primary) hypertension (3) Dementia: Status: Acute Code(s): F03.90 - Unspecified dementia without behavioral disturbance Plan Elderly female with a long history of schizoaffective disorder bipolar type who was admitted into the facility for exacerbation of psychosis and mood lability. The patient is on Clozaril and apparently she has not been fully compliant with treatment. 11/21 slipped, hit head on 11/20, head CT reviewed and unremarkable. We did a MOCA and she is technically demented at this moment 02/28 continue current tx plan Plan 1. The patient at this moment is on 3 psychotics, Clozaril , Haldol and Invega Sustenna. 2. Discontinue Haldol 5 mg IM if the patient refuses Clozaril and replace with Zyprexa. 3. Lower total Clozaril to 500 mg a day. We will not continue with Invega Sustenna sings there is no improvement with 3 antipsychotics. We will keep her on Clozaril and Haldol p.o.. 4. Waiting for placement 5. Increase prazosin up to 2 mg p.o. t.i.d. to target nightmares since her blood pressure becomes stable 03/06 continue current medications. 03/07 continue current medications. I spent minutes with the patient and/or on the patient floor today, greater than?50% of which was spent counseling/coordinating care. Reason for contiued inpatient stay Substantial Risk for: inability to function
[2022-03-07] MEDS: Carbamide Peroxide 6.5% Otic 15 ML DRPBTL 5 DROP EAR-BOTH (12:55)
[2022-03-07 18:00] VITALS: BP 122/61; PULSE 84; RESP 20; TEMP 36.6; O2SAT 97
[2022-03-07] MEDS: cloZAPine 100 MG TABLET 300 MG PO (20:16)
[2022-03-07] MEDS: Sennosides 8.6 MG TABLET PO (20:16)
[2022-03-07] MEDS: Mirtazapine 15 MG TABLET PO (20:16)
[2022-03-07] MEDS: polyethylene glycoL 3350 17 GM POWD.PACK PO (20:17)
[2022-03-08 06:00] VITALS: BP 135/69; PULSE 97; RESP 18; TEMP 36.2; O2SAT 96
[2022-03-08] MEDS: Desmopressin Acetate 0.2 MG TABLET PO ×2 (12:08→20:29)
[2022-03-08] MEDS: Docusate Sodium 100 MG CAPSULE PO ×2 (12:08→20:29)
[2022-03-08] MEDS: HaloperidoL 5 MG TABLET PO ×2 (12:08→20:27)
[2022-03-08] MEDS: Prazosin HCL 1 MG CAPSULE 2 MG PO ×3 (12:08→20:27)
[2022-03-08] MEDS: Apixaban 5 MG TABLET PO ×2 (12:08→20:29)
[2022-03-08] MEDS: hydroCHLOROthiazide 25 MG TABLET PO (12:09)
[2022-03-08] MEDS: Lithium Carbonate 300 MG CAPSULE PO ×2 (12:09→20:29)
[2022-03-08] MEDS: cloZAPine 100 MG TABLET PO ×3 (12:09→17:01)
[2022-03-08] MEDS: Benztropine Mesylate 1 MG TABLET PO ×2 (12:09→20:29)
[2022-03-08] MEDS: polyethylene glycoL 3350 17 GM POWD.PACK PO ×2 (12:10→20:30)
--- NOTE | 2022-03-08 15:45 | P.PNPSI_ITS ---
Subjective Subjective Date of Service: 03/08/22 Reason For Visit: psychotic disorder Subjective Notes: Conditional Voluntary Interim History: The nursing staff reports no changes in her mental status, sporadically with auditory hallucinations but easily redirectable. On interview the patient denies new symptoms. She has been fully compliant with treatment. Mental Status Exam Mental Status Exam Patient Appearance: Well Grooomed Patient Orientation: Person and Situation Level of Consciousness: Awake Patient Behavior: Cooperative Mood Description: Withdrawn Affect Description: Labile Patient Cognition Impaired: Yes Ability to Follow Directions: Good Speech Pattern: Clear Hallucinations: None and Auditory Delusions: Paranoid Ideation Thought Process: Illogical and Distracted Judgement: Fair Diagnostics Vital Signs (24Hr): Vital Signs - 24 hr 03/07/22 18:00 03/08/22 06:00 Temperature 97.8 F 97.1 F Pulse Rate 84 97 Respiratory Rate 20 18 Blood Pressure 122/61 135/69 Pulse Oximetry 97 96 Oxygen Delivery Method Room Air Room Air BMI result Body Mass Index 27.8 Labs Results: 01/22/22 08:07 02/20/22 19:35 Imaging Radiology Impressions: ITS Impressions Head CT 10/08/21 15:16 IMPRESSION: No acute intracranial pathology. Head CT 10/09/21 13:54 IMPRESSION: No acute intracranial pathology. Pelvic/Transvag US 10/13/21 09:24 IMPRESSION: Abnormally thickened endometrium for a postmenopausal patient measuring 0.9 cm. 3 x 2.7 x 3.7 cm mass in the posterior cervix. This may represent a fibroid. Slightly thickened trabeculated bladder wall. Head CT 10/20/21 08:18 IMPRESSION: No acute intracranial pathology. This critical result was discussed with Dr. Chu at 8:30 hours on 10/20/2021. It was ascertained that the content and urgency of the report was understood at the time of direct communication. Head CT 11/20/21 19:29 IMPRESSION: No acute intracranial pathology. Medications Medications Current Medications Acetaminophen (Acetaminophen 325 Mg Tablet) 650 mg PO Q6H PRN PRN Reason: Headache/Pain Mild Scale (1-3) Last Admin: 03/04/22 20:47 Dose: 650 mg Al Hydroxide/Mg Hydroxide (Magnesium Hydrox/Alum Hydrox 30 Ml Oral.Susp) 30 ml PO Q6H PRN PRN Reason: Heartburn/Nausea Apixaban (Apixaban 5 Mg Tablet) 5 mg PO BID [facility] Last Admin: 03/08/22 12:08 Dose: 5 mg Benztropine Mesylate (Benztropine Mesylate 1 Mg Tablet) 1 mg PO BID [facility] Last Admin: 03/08/22 12:09 Dose: 1 mg Bisacodyl (Bisacodyl 10 Mg Supp.Rect) 10 mg [place] DAILY PRN PRN Reason: Constipation Last Admin: 12/16/21 04:01 Dose: 10 mg Carbamide Peroxide (Carbamide Peroxide 6.5% Otic 15 Ml Drpbtl) 5 drop EAR-BOTH BID [facility] Stop: 03/11/22 11:57 Last Admin: 03/08/22 14:47 Dose: Not Given Clozapine (Clozapine 100 Mg Tablet) 100 mg PO DAILY [facility] Last Admin: 03/08/22 12:09 Dose: 100 mg Clozapine (Clozapine 100 Mg Tablet) 300 mg PO BEDTIME [facility] Last Admin: 03/07/22 20:16 Dose: 300 mg Clozapine (Clozapine 100 Mg Tablet) 100 mg PO DAILY@1700 [facility] Last Admin: 03/07/22 16:09 Dose: 100 mg Desmopressin Acetate (Desmopressin Acetate 0.2 Mg Tablet) 0.2 mg PO BID [facility] Last Admin: 03/08/22 12:08 Dose: 0.2 mg Docusate Sodium (Docusate Sodium 100 Mg Capsule) 100 mg PO BID [facility] Last Admin: 03/08/22 12:08 Dose: 100 mg Haloperidol (Haloperidol 5 Mg Tablet) 5 mg PO BID [facility] Last Admin: 03/08/22 12:08 Dose: 5 mg Hydrochlorothiazide (Hydrochlorothiazide 25 Mg Tablet) 25 mg PO DAILY [facility]; Protocol Last Admin: 03/08/22 12:09 Dose: 25 mg Hydroxyzine HCl (Hydroxyzine Hcl 25 Mg Tablet) 25 mg PO BEDTIME PRN PRN Reason: Anxiety Last Admin: 03/04/22 20:48 Dose: 25 mg Hydroxyzine HCl (Hydroxyzine Hcl 25 Mg Tablet) 25 mg PO BID PRN PRN Reason: Anxiety Last Admin: 03/03/22 14:12 Dose: 25 mg [place] Carbonate ([place] Carbonate 300 Mg Capsule) 300 mg PO BID [facility] Last Admin: 03/08/22 12:09 Dose: 300 mg Loperamide HCl (Loperamide Hcl 2 Mg Capsule) 4 mg PO Q4H PRN PRN Reason: Diarrhea Last Admin: 11/01/21 17:04 Dose: 4 mg Magnesium Hydroxide (Milk Of Magnesia 30 Ml Oral.Susp) 30 ml PO DAILY PRN PRN Reason: Constipation Last Admin: 01/30/22 22:11 Dose: 30 ml Miconazole Nitrate (Miconazole Nitrate 2% Oint 57 Gm Oint...G.) 1 appl TOPICAL BID [facility]; Protocol Last Admin: 03/08/22 14:48 Dose: Not Given Mirtazapine (Mirtazapine 15 Mg Tablet) 15 mg PO BEDTIME [facility] Last Admin: 03/07/22 20:16 Dose: 15 mg Olanzapine (Olanzapine 10 Mg Vial) 5 mg IM STAT PRN PRN Reason: refusal of Clozaril PO Last Admin: 03/05/22 17:29 Dose: 5 mg Polyethylene Glycol (Polyethylene Glycol 3350 17 Gm Powd.Pack) 17 gm PO BID [facility] Last Admin: 03/08/22 12:10 Dose: 17 gm Prazosin HCl (Prazosin Hcl 1 Mg Capsule) 2 mg PO TID [facility]; Protocol Last Admin: 03/08/22 12:08 Dose: 2 mg Senna (Sennosides 8.6 Mg Tablet) 8.6 mg PO BEDTIME [facility] Last Admin: 03/07/22 20:16 Dose: 8.6 mg Trazodone HCl (Trazodone Hcl 50 Mg Tablet) 50 mg PO BEDTIME PRN PRN Reason: Insomnia Last Admin: 03/04/22 20:48 Dose: 50 mg Trolamine Salicylate/Aloe Vera (Trolamine Salicylate 10%/Aloe Cream 35.4 Gm) 1 appl TOPICAL TID PRN PRN Reason: neck pain Last Admin: 02/02/22 22:34 Dose: 1 appl Allergies Allergies Allergy/AdvReac Type Severity Reaction Status Date / Time No Known Allergies Allergy Unverified 05/01/20 19:42 [No Known Allergies*] Assessment & Plan Assessment & Plan (1) Schizophrenia, paranoid, chronic with acute exacerbation: Status: Acute Code(s): F20.0 - Paranoid schizophrenia (2) Hypertension: Status: Acute Code(s): I10 - Essential (primary) hypertension (3) Dementia: Status: Acute Code(s): F03.90 - Unspecified dementia without behavioral disturbance Plan Elderly female with a long history of schizoaffective disorder bipolar type who was admitted into the facility for exacerbation of psychosis and mood lability. The patient is on Clozaril and apparently she has not been fully compliant with treatment. 11/21 slipped, hit head on 11/20, head CT reviewed and unremarkable. We did a MOCA and she is technically demented at this moment 02/28 continue current tx plan Plan 1. The patient at this moment is on 3 psychotics, Clozaril , Haldol and Invega Sustenna. 2. Discontinue Haldol 5 mg IM if the patient refuses Clozaril and replace with Zyprexa. 3. Lower total Clozaril to 500 mg a day. We will not continue with Invega Sustenna sings there is no improvement with 3 antipsychotics. We will keep her on Clozaril and Haldol p.o.. 4. Waiting for placement 5. Increase prazosin up to 2 mg p.o. t.i.d. to target nightmares since her blood pressure is stable I spent ____20__ minutes with the patient and/or on the patient floor today, greater than?50% of which was spent counseling/coordinating care. Reason for contiued inpatient stay Substantial Risk for: inability to function, rapid decompensation and med/psych decompensation
[2022-03-08 19:25] VITALS: BP 110/65; PULSE 100; RESP 18; TEMP 36.3; O2SAT 95
[2022-03-08] MEDS: Sennosides 8.6 MG TABLET PO (20:27)
[2022-03-08] MEDS: Mirtazapine 15 MG TABLET PO (20:27)
[2022-03-08] MEDS: cloZAPine 100 MG TABLET 300 MG PO (20:28)
[2022-03-09] MEDS: Prazosin HCL 1 MG CAPSULE 2 MG PO ×2 (10:20→20:07)
[2022-03-09] MEDS: Desmopressin Acetate 0.2 MG TABLET PO ×2 (10:20→20:07)
[2022-03-09] MEDS: HaloperidoL 5 MG TABLET PO ×2 (10:20→20:08)
[2022-03-09] MEDS: Apixaban 5 MG TABLET PO ×2 (10:21→20:07)
[2022-03-09] MEDS: Benztropine Mesylate 1 MG TABLET PO ×2 (10:21→20:08)
[2022-03-09] MEDS: hydroCHLOROthiazide 25 MG TABLET PO (10:21)
[2022-03-09] MEDS: Docusate Sodium 100 MG CAPSULE PO ×2 (10:21→20:07)
[2022-03-09] MEDS: Lithium Carbonate 300 MG CAPSULE PO ×2 (10:21→20:08)
[2022-03-09] MEDS: polyethylene glycoL 3350 17 GM POWD.PACK PO (10:24)
--- NOTE | 2022-03-09 10:24 | PC.NURSE ---
Clozaril 100 mg tablet given to pt [facility] meds, unable to chart on MAR at this time as the space to chart was taken by 1701 dose given yesterday, will call pharmacy to attempt to adjust MAR.
--- NOTE | 2022-03-09 16:58 | HO.PSYCHPN ---
Subjective Subjective Date of Service: 03/09/22 Reason For Visit: psychotic disorder Subjective Notes: Conditional Voluntary Interim History: The nursing staff reports no changes in her mental status she has been fully compliant with treatment. On interview the patient denies new symptoms she states sometimes she has hears voices. Mental Status Exam Mental Status Exam Patient Appearance: Appropriate Patient Orientation: Person and Situation Level of Consciousness: Awake Patient Behavior: Cooperative Mood Description: Labile Affect Description: Labile Patient Cognition Impaired: Yes Ability to Follow Directions: Good Speech Pattern: Clear Hallucinations: Auditory Delusions: Paranoid Ideation Thought Process: Linear Thought Content: positive for Circumstantial Judgement: Fair Diagnostics Vital Signs (24Hr): Vital Signs - 24 hr 03/08/22 19:25 Temperature 97.4 F Pulse Rate 100 Respiratory Rate 18 Blood Pressure 110/65 Pulse Oximetry 95 Oxygen Delivery Method Room Air BMI result Body Mass Index 27.8 Labs Results: 01/22/22 08:07 02/20/22 19:35 Imaging Radiology Impressions: ITS Impressions Head CT 10/08/21 15:16 IMPRESSION: No acute intracranial pathology. Head CT 10/09/21 13:54 IMPRESSION: No acute intracranial pathology. Pelvic/Transvag US 10/13/21 09:24 IMPRESSION: Abnormally thickened endometrium for a postmenopausal patient measuring 0.9 cm. 3 x 2.7 x 3.7 cm mass in the posterior cervix. This may represent a fibroid. Slightly thickened trabeculated bladder wall. Head CT 10/20/21 08:18 IMPRESSION: No acute intracranial pathology. This critical result was discussed with Dr. Chu at 8:30 hours on 10/20/2021. It was ascertained that the content and urgency of the report was understood at the time of direct communication. Head CT 11/20/21 19:29 IMPRESSION: No acute intracranial pathology. Medications Medications Current Medications Acetaminophen (Acetaminophen 325 Mg Tablet) 650 mg PO Q6H PRN PRN Reason: Headache/Pain Mild Scale (1-3) Last Admin: 03/04/22 20:47 Dose: 650 mg Al Hydroxide/Mg Hydroxide (Magnesium Hydrox/Alum Hydrox 30 Ml Oral.Susp) 30 ml PO Q6H PRN PRN Reason: Heartburn/Nausea Apixaban (Apixaban 5 Mg Tablet) 5 mg PO BID [facility] Last Admin: 03/09/22 10:21 Dose: 5 mg Benztropine Mesylate (Benztropine Mesylate 1 Mg Tablet) 1 mg PO BID [facility] Last Admin: 03/09/22 10:21 Dose: 1 mg Bisacodyl (Bisacodyl 10 Mg Supp.Rect) 10 mg IN DAILY PRN PRN Reason: Constipation Last Admin: 12/16/21 04:01 Dose: 10 mg Carbamide Peroxide (Carbamide Peroxide 6.5% Otic 15 Ml Drpbtl) 5 drop EAR-BOTH BID [facility] Stop: 03/11/22 11:57 Last Admin: 03/09/22 10:21 Dose: Not Given Clozapine (Clozapine 100 Mg Tablet) 100 mg PO DAILY [facility] Last Admin: 03/08/22 17:01 Dose: 100 mg Clozapine (Clozapine 100 Mg Tablet) 300 mg PO BEDTIME [facility] Last Admin: 03/08/22 20:28 Dose: 300 mg Clozapine (Clozapine 100 Mg Tablet) 100 mg PO DAILY@1700 [facility] Last Admin: 03/08/22 17:01 Dose: 100 mg Desmopressin Acetate (Desmopressin Acetate 0.2 Mg Tablet) 0.2 mg PO BID [facility] Last Admin: 03/09/22 10:20 Dose: 0.2 mg Docusate Sodium (Docusate Sodium 100 Mg Capsule) 100 mg PO BID [facility] Last Admin: 03/09/22 10:21 Dose: 100 mg Haloperidol (Haloperidol 5 Mg Tablet) 5 mg PO BID [facility] Last Admin: 03/09/22 10:20 Dose: 5 mg Hydrochlorothiazide (Hydrochlorothiazide 25 Mg Tablet) 25 mg PO DAILY [facility]; Protocol Last Admin: 03/09/22 10:21 Dose: 25 mg Hydroxyzine HCl (Hydroxyzine Hcl 25 Mg Tablet) 25 mg PO BEDTIME PRN PRN Reason: Anxiety Last Admin: 03/04/22 20:48 Dose: 25 mg Hydroxyzine HCl (Hydroxyzine Hcl 25 Mg Tablet) 25 mg PO BID PRN PRN Reason: Anxiety Last Admin: 03/03/22 14:12 Dose: 25 mg [place] Carbonate ([place] Carbonate 300 Mg Capsule) 300 mg PO BID [facility] Last Admin: 03/09/22 10:21 Dose: 300 mg Loperamide HCl (Loperamide Hcl 2 Mg Capsule) 4 mg PO Q4H PRN PRN Reason: Diarrhea Last Admin: 11/01/21 17:04 Dose: 4 mg Magnesium Hydroxide (Milk Of Magnesia 30 Ml Oral.Susp) 30 ml PO DAILY PRN PRN Reason: Constipation Last Admin: 01/30/22 22:11 Dose: 30 ml Miconazole Nitrate (Miconazole Nitrate 2% Oint 57 Gm Oint...G.) 1 appl TOPICAL BID [facility]; Protocol Last Admin: 03/09/22 10:23 Dose: Not Given Mirtazapine (Mirtazapine 15 Mg Tablet) 15 mg PO BEDTIME [facility] Last Admin: 03/08/22 20:27 Dose: 15 mg Olanzapine (Olanzapine 10 Mg Vial) 5 mg IM STAT PRN PRN Reason: refusal of Clozaril PO Last Admin: 03/05/22 17:29 Dose: 5 mg Polyethylene Glycol (Polyethylene Glycol 3350 17 Gm Powd.Pack) 17 gm PO BID [facility] Last Admin: 03/09/22 10:24 Dose: 17 gm Prazosin HCl (Prazosin Hcl 1 Mg Capsule) 2 mg PO TID [facility]; Protocol Last Admin: 03/09/22 16:06 Dose: Not Given Senna (Sennosides 8.6 Mg Tablet) 8.6 mg PO BEDTIME [facility] Last Admin: 03/08/22 20:27 Dose: 8.6 mg Trazodone HCl (Trazodone Hcl 50 Mg Tablet) 50 mg PO BEDTIME PRN PRN Reason: Insomnia Last Admin: 03/04/22 20:48 Dose: 50 mg Trolamine Salicylate/Aloe Vera (Trolamine Salicylate 10%/Aloe Cream 35.4 Gm) 1 appl TOPICAL TID PRN PRN Reason: neck pain Last Admin: 02/02/22 22:34 Dose: 1 appl Allergies Allergies Allergy/AdvReac Type Severity Reaction Status Date / Time No Known Allergies Allergy Unverified 05/01/20 19:42 [No Known Allergies*] Assessment & Plan Assessment & Plan (1) Schizophrenia, paranoid, chronic with acute exacerbation: Status: Acute Code(s): F20.0 - Paranoid schizophrenia (2) Hypertension: Status: Acute Code(s): I10 - Essential (primary) hypertension (3) Dementia: Status: Acute Code(s): F03.90 - Unspecified dementia without behavioral disturbance Plan Elderly female with a long history of schizoaffective disorder bipolar type who was admitted into the facility for exacerbation of psychosis and mood lability. The patient is on Clozaril and apparently she has not been fully compliant with treatment. 11/21 slipped, hit head on 11/20, head CT reviewed and unremarkable. We did a MOCA and she is technically demented at this moment 02/28 continue current tx plan Plan 1. The patient at this moment is on 3 psychotics, Clozaril , Haldol and Invega Sustenna. 2. Discontinue Haldol 5 mg IM if the patient refuses Clozaril and replace with Zyprexa. 3. Lower total Clozaril to 500 mg a day. We will not continue with Invega Sustenna sings there is no improvement with 3 antipsychotics. We will keep her on Clozaril and Haldol p.o.. 4. Waiting for placement 5. Increase prazosin up to 2 mg p.o. t.i.d. to target nightmares since her blood pressure is stable I spent __20____ minutes with the patient and/or on the patient floor today, greater than?50% of which was spent counseling/coordinating care. Reason for contiued inpatient stay Substantial Risk for: inability to function, rapid decompensation and med/psych decompensation
[2022-03-09] MEDS: cloZAPine 100 MG TABLET PO (17:18)
[2022-03-09 20:00] VITALS: BP 100/66; PULSE 85; RESP 16; TEMP 36.3; O2SAT 97
[2022-03-09] MEDS: Mirtazapine 15 MG TABLET PO (20:08)
[2022-03-09] MEDS: cloZAPine 100 MG TABLET 300 MG PO (20:08)
[2022-03-09] MEDS: Carbamide Peroxide 6.5% Otic 15 ML DRPBTL 5 DROP EAR-BOTH (20:08)
[2022-03-09] MEDS: Sennosides 8.6 MG TABLET PO (20:08)
[2022-03-09] MEDS: traZODone HCL 50 MG TABLET PO (22:31)
[2022-03-10 06:00] VITALS: BP 90/51; PULSE 68; RESP 16; TEMP 36.7; O2SAT 94
[2022-03-10] MEDS: Lithium Carbonate 300 MG CAPSULE PO ×2 (10:08→20:08)
[2022-03-10] MEDS: hydroCHLOROthiazide 25 MG TABLET PO (10:08)
[2022-03-10] MEDS: HaloperidoL 5 MG TABLET PO ×2 (10:08→20:07)
[2022-03-10] MEDS: Prazosin HCL 1 MG CAPSULE 2 MG PO ×3 (10:08→20:09)
[2022-03-10] MEDS: Docusate Sodium 100 MG CAPSULE PO ×2 (10:09→20:07)
[2022-03-10] MEDS: Desmopressin Acetate 0.2 MG TABLET PO ×2 (10:09→20:08)
[2022-03-10] MEDS: cloZAPine 100 MG TABLET PO ×2 (10:09→17:07)
[2022-03-10] MEDS: Benztropine Mesylate 1 MG TABLET PO ×2 (10:09→20:08)
[2022-03-10] MEDS: polyethylene glycoL 3350 17 GM POWD.PACK PO ×2 (10:12→20:15)
[2022-03-10] MEDS: Apixaban 5 MG TABLET PO ×2 (10:14→20:07)
[2022-03-10] MEDS: Carbamide Peroxide 6.5% Otic 15 ML DRPBTL 5 DROP EAR-BOTH ×2 (10:51→20:06)
[2022-03-10] MEDS: Miconazole Nitrate 2% Oint 57 GM OINT...G. 1 APPL TOPICAL ×2 (10:57→20:06)
--- NOTE | 2022-03-10 15:25 | P.PNPSI_ITS ---
Subjective Subjective Date of Service: 03/10/22 Reason For Visit: psychotic disorder Subjective Notes: Conditional Voluntary Interim History: The nursing staff reported a sporadic yelling, she had been seclusive years they but no changes in her mental status some overall. On interview the patient denies new symptoms Mental Status Exam Mental Status Exam Patient Appearance: Appropriate Patient Orientation: Person Level of Consciousness: Awake Patient Behavior: Guarded and Passive Mood Description: Calm Affect Description: Labile Patient Cognition Impaired: Yes Ability to Follow Directions: Good Speech Pattern: Clear Hallucinations: Auditory Delusions: Paranoid Ideation Thought Process: Illogical Thought Content: positive for [place] Judgement: Fair Diagnostics Vital Signs (24Hr): Vital Signs - 24 hr 03/09/22 20:00 03/10/22 06:00 Temperature 97.4 F 98.1 F Pulse Rate 85 68 Respiratory Rate 16 16 Blood Pressure 100/66 90/51 L Pulse Oximetry 97 94 Oxygen Delivery Method Room Air Room Air BMI result Body Mass Index 27.8 Labs Results: 01/22/22 08:07 02/20/22 19:35 Imaging Radiology Impressions: ITS Impressions Head CT 10/08/21 15:16 IMPRESSION: No acute intracranial pathology. Head CT 10/09/21 13:54 IMPRESSION: No acute intracranial pathology. Pelvic/Transvag US 10/13/21 09:24 IMPRESSION: Abnormally thickened endometrium for a postmenopausal patient measuring 0.9 cm. 3 x 2.7 x 3.7 cm mass in the posterior cervix. This may represent a fibroid. Slightly thickened trabeculated bladder wall. Head CT 10/20/21 08:18 IMPRESSION: No acute intracranial pathology. This critical result was discussed with Dr. Chu at 8:30 hours on 10/20/2021. It was ascertained that the content and urgency of the report was understood at the time of direct communication. Head CT 11/20/21 19:29 IMPRESSION: No acute intracranial pathology. Medications Medications Current Medications Acetaminophen (Acetaminophen 325 Mg Tablet) 650 mg PO Q6H PRN PRN Reason: Headache/Pain Mild Scale (1-3) Last Admin: 03/04/22 20:47 Dose: 650 mg Al Hydroxide/Mg Hydroxide (Magnesium Hydrox/Alum Hydrox 30 Ml Oral.Susp) 30 ml PO Q6H PRN PRN Reason: Heartburn/Nausea Apixaban (Apixaban 5 Mg Tablet) 5 mg PO BID [facility] Last Admin: 03/10/22 10:14 Dose: 5 mg Benztropine Mesylate (Benztropine Mesylate 1 Mg Tablet) 1 mg PO BID [facility] Last Admin: 03/10/22 10:09 Dose: 1 mg Bisacodyl (Bisacodyl 10 Mg Supp.Rect) 10 mg [place] DAILY PRN PRN Reason: Constipation Last Admin: 12/16/21 04:01 Dose: 10 mg Carbamide Peroxide (Carbamide Peroxide 6.5% Otic 15 Ml Drpbtl) 5 drop EAR-BOTH BID [facility] Stop: 03/11/22 11:57 Last Admin: 03/10/22 10:51 Dose: 5 drop Clozapine (Clozapine 100 Mg Tablet) 100 mg PO DAILY [facility] Last Admin: 03/10/22 10:09 Dose: 100 mg Clozapine (Clozapine 100 Mg Tablet) 300 mg PO BEDTIME [facility] Last Admin: 03/09/22 20:08 Dose: 300 mg Clozapine (Clozapine 100 Mg Tablet) 100 mg PO DAILY@1700 [facility] Last Admin: 03/09/22 17:18 Dose: 100 mg Desmopressin Acetate (Desmopressin Acetate 0.2 Mg Tablet) 0.2 mg PO BID [facility] Last Admin: 03/10/22 10:09 Dose: 0.2 mg Docusate Sodium (Docusate Sodium 100 Mg Capsule) 100 mg PO BID [facility] Last Admin: 03/10/22 10:09 Dose: 100 mg Haloperidol (Haloperidol 5 Mg Tablet) 5 mg PO BID [facility] Last Admin: 03/10/22 10:08 Dose: 5 mg Hydrochlorothiazide (Hydrochlorothiazide 25 Mg Tablet) 25 mg PO DAILY [facility]; Protocol Last Admin: 03/10/22 10:08 Dose: 25 mg Hydroxyzine HCl (Hydroxyzine Hcl 25 Mg Tablet) 25 mg PO BEDTIME PRN PRN Reason: Anxiety Last Admin: 03/04/22 20:48 Dose: 25 mg Hydroxyzine HCl (Hydroxyzine Hcl 25 Mg Tablet) 25 mg PO BID PRN PRN Reason: Anxiety Last Admin: 03/03/22 14:12 Dose: 25 mg [place] Carbonate ([place] Carbonate 300 Mg Capsule) 300 mg PO BID [facility] Last Admin: 03/10/22 10:08 Dose: 300 mg Loperamide HCl (Loperamide Hcl 2 Mg Capsule) 4 mg PO Q4H PRN PRN Reason: Diarrhea Last Admin: 11/01/21 17:04 Dose: 4 mg Magnesium Hydroxide (Milk Of Magnesia 30 Ml Oral.Susp) 30 ml PO DAILY PRN PRN Reason: Constipation Last Admin: 01/30/22 22:11 Dose: 30 ml Miconazole Nitrate (Miconazole Nitrate 2% Oint 57 Gm Oint...G.) 1 appl TOPICAL BID [facility]; Protocol Last Admin: 03/10/22 10:57 Dose: 1 appl Mirtazapine (Mirtazapine 15 Mg Tablet) 15 mg PO BEDTIME [facility] Last Admin: 03/09/22 20:08 Dose: 15 mg Olanzapine (Olanzapine 10 Mg Vial) 5 mg IM STAT PRN PRN Reason: refusal of Clozaril PO Last Admin: 03/05/22 17:29 Dose: 5 mg Polyethylene Glycol (Polyethylene Glycol 3350 17 Gm Powd.Pack) 17 gm PO BID [facility] Last Admin: 03/10/22 10:12 Dose: 17 gm Prazosin HCl (Prazosin Hcl 1 Mg Capsule) 2 mg PO TID [facility]; Protocol Last Admin: 03/10/22 10:08 Dose: 2 mg Senna (Sennosides 8.6 Mg Tablet) 8.6 mg PO BEDTIME [facility] Last Admin: 03/09/22 20:08 Dose: 8.6 mg Trazodone HCl (Trazodone Hcl 50 Mg Tablet) 50 mg PO BEDTIME PRN PRN Reason: Insomnia Last Admin: 03/09/22 22:31 Dose: 50 mg Trolamine Salicylate/Aloe Vera (Trolamine Salicylate 10%/Aloe Cream 35.4 Gm) 1 appl TOPICAL TID PRN PRN Reason: neck pain Last Admin: 02/02/22 22:34 Dose: 1 appl Allergies Allergies Allergy/AdvReac Type Severity Reaction Status Date / Time No Known Allergies Allergy Unverified 05/01/20 19:42 [No Known Allergies*] Assessment & Plan Assessment & Plan (1) Schizophrenia, paranoid, chronic with acute exacerbation: Status: Acute Code(s): F20.0 - Paranoid schizophrenia (2) Hypertension: Status: Acute Code(s): I10 - Essential (primary) hypertension (3) Dementia: Status: Acute Code(s): F03.90 - Unspecified dementia without behavioral disturbance Plan Elderly female with a long history of schizoaffective disorder bipolar type who was admitted into the facility for exacerbation of psychosis and mood lability. The patient is on Clozaril and apparently she has not been fully c ompliant with treatment. 11/21 slipped, hit head on 11/20, head CT reviewed and unremarkable. We did a MOCA and she is technically demented at this moment 02/28 continue current tx plan Plan 1. The patient at this moment is on 3 psychotics, Clozaril , Haldol and Invega Sustenna. 2. Discontinue Haldol 5 mg IM if the patient refuses Clozaril and replace with Zyprexa. 3. Lower total Clozaril to 500 mg a day. We will not continue with Invega Sustenna sings there is no improvement with 3 antipsychotics. We will keep her on Clozaril and Haldol p.o.. 4. Waiting for placement 5. Increase prazosin up to 2 mg p.o. t.i.d. to target nightmares since her blood pressure is stable I spent ___20___ minutes with the patient and/or on the patient floor today, greater than?50% of which was spent counseling/coordinating care. Reason for contiued inpatient stay Substantial Risk for: inability to function, rapid decompensation and med/psych decompensation
[2022-03-10 17:08] VITALS: BP 110/62; PULSE 74
[2022-03-10 18:00] VITALS: BP 160/66; PULSE 102; RESP 18; TEMP 36.8; O2SAT 96
[2022-03-10] MEDS: cloZAPine 100 MG TABLET 300 MG PO (20:06)
[2022-03-10] MEDS: Sennosides 8.6 MG TABLET PO (20:08)
[2022-03-10] MEDS: Mirtazapine 15 MG TABLET PO (20:09)
[2022-03-11] MEDS: Apixaban 5 MG TABLET PO (09:42)
[2022-03-11] MEDS: Prazosin HCL 1 MG CAPSULE 2 MG PO ×2 (09:42→17:16)
[2022-03-11] MEDS: Benztropine Mesylate 1 MG TABLET PO (09:42)
[2022-03-11] MEDS: Lithium Carbonate 300 MG CAPSULE PO (09:42)
[2022-03-11] MEDS: HaloperidoL 5 MG TABLET PO (09:42)
[2022-03-11] MEDS: hydroCHLOROthiazide 25 MG TABLET PO (09:42)
[2022-03-11] MEDS: cloZAPine 100 MG TABLET PO ×2 (09:42→17:16)
[2022-03-11] MEDS: Desmopressin Acetate 0.2 MG TABLET PO (09:42)
[2022-03-11] MEDS: Docusate Sodium 100 MG CAPSULE PO (09:42)
[2022-03-11] MEDS: polyethylene glycoL 3350 17 GM POWD.PACK PO (09:43)
[2022-03-11] MEDS: Miconazole Nitrate 2% Oint 57 GM OINT...G. 1 APPL TOPICAL (09:43)
[2022-03-11] MEDS: Carbamide Peroxide 6.5% Otic 15 ML DRPBTL 5 DROP EAR-BOTH (09:43)
--- NOTE | 2022-03-11 13:49 | HO.PSYCHPN ---
Subjective Subjective Date of Service: 03/11/22 Reason For Visit: psychotic disorder Subjective Notes: Conditional Voluntary Interim History: The nursing staff reported the patient has been fully compliant with medications she is yelling much less since prazosin was started. On interview the patient denies new symptoms still with a sporadic auditory hallucinations Mental Status Exam Mental Status Exam Patient Appearance: Well Grooomed Patient Orientation: Person and Situation Patient Behavior: Appropriate Mood Description: Calm Affect Description: Constricted Patient Cognition Impaired: Yes Ability to Follow Directions: Good Speech Pattern: Clear Hallucinations: Auditory Delusions: Paranoid Ideation Thought Process: Illogical Thought Content: positive for Circumstantial Judgement: Fair Diagnostics Vital Signs (24Hr): Vital Signs - 24 hr 03/10/22 17:08 03/10/22 18:00 Temperature 98.2 F Pulse Rate 74 102 H Respiratory Rate 18 Blood Pressure 110/62 160/66 H Pulse Oximetry 96 Oxygen Delivery Method Room Air BMI result Body Mass Index 27.8 Labs Results: 01/22/22 08:07 02/20/22 19:35 Imaging Radiology Impressions: ITS Impressions Head CT 10/08/21 15:16 IMPRESSION: No acute intracranial pathology. Head CT 10/09/21 13:54 IMPRESSION: No acute intracranial pathology. Pelvic/Transvag US 10/13/21 09:24 IMPRESSION: Abnormally thickened endometrium for a postmenopausal patient measuring 0.9 cm. 3 x 2.7 x 3.7 cm mass in the posterior cervix. This may represent a fibroid. Slightly thickened trabeculated bladder wall. Head CT 10/20/21 08:18 IMPRESSION: No acute intracranial pathology. This critical result was discussed with Dr. Chu at 8:30 hours on 10/20/2021. It was ascertained that the content and urgency of the report was understood at the time of direct communication. Head CT 11/20/21 19:29 IMPRESSION: No acute intracranial pathology. Medications Medications Current Medications Acetaminophen (Acetaminophen 325 Mg Tablet) 650 mg PO Q6H PRN PRN Reason: Headache/Pain Mild Scale (1-3) Last Admin: 03/04/22 20:47 Dose: 650 mg Al Hydroxide/Mg Hydroxide (Magnesium Hydrox/Alum Hydrox 30 Ml Oral.Susp) 30 ml PO Q6H PRN PRN Reason: Heartburn/Nausea Apixaban (Apixaban 5 Mg Tablet) 5 mg PO BID [facility] Last Admin: 03/11/22 09:42 Dose: 5 mg Benztropine Mesylate (Benztropine Mesylate 1 Mg Tablet) 1 mg PO BID [facility] Last Admin: 03/11/22 09:42 Dose: 1 mg Bisacodyl (Bisacodyl 10 Mg Supp.Rect) [address] DAILY PRN PRN Reason: Constipation Last Admin: 12/16/21 04:01 Dose: 10 mg Clozapine (Clozapine 100 Mg Tablet) 100 mg PO DAILY [facility] Last Admin: 03/11/22 09:42 Dose: 100 mg Clozapine (Clozapine 100 Mg Tablet) 300 mg PO BEDTIME [facility] Last Admin: 03/10/22 20:06 Dose: 300 mg Clozapine (Clozapine 100 Mg Tablet) 100 mg PO DAILY@1700 [facility] Last Admin: 03/10/22 17:07 Dose: 100 mg Desmopressin Acetate (Desmopressin Acetate 0.2 Mg Tablet) 0.2 mg PO BID [facility] Last Admin: 03/11/22 09:42 Dose: 0.2 mg Docusate Sodium (Docusate Sodium 100 Mg Capsule) 100 mg PO BID [facility] Last Admin: 03/11/22 09:42 Dose: 100 mg Haloperidol (Haloperidol 5 Mg Tablet) 5 mg PO BID [facility] Last Admin: 03/11/22 09:42 Dose: 5 mg Hydrochlorothiazide (Hydrochlorothiazide 25 Mg Tablet) 25 mg PO DAILY [facility]; Protocol Last Admin: 03/11/22 09:42 Dose: 25 mg Hydroxyzine HCl (Hydroxyzine Hcl 25 Mg Tablet) 25 mg PO BEDTIME PRN PRN Reason: Anxiety Last Admin: 03/04/22 20:48 Dose: 25 mg Hydroxyzine HCl (Hydroxyzine Hcl 25 Mg Tablet) 25 mg PO BID PRN PRN Reason: Anxiety Last Admin: 03/03/22 14:12 Dose: 25 mg [place] Carbonate ([place] Carbonate 300 Mg Capsule) 300 mg PO BID [facility] Last Admin: 03/11/22 09:42 Dose: 300 mg Loperamide HCl (Loperamide Hcl 2 Mg Capsule) 4 mg PO Q4H PRN PRN Reason: Diarrhea Last Admin: 11/01/21 17:04 Dose: 4 mg Magnesium Hydroxide (Milk Of Magnesia 30 Ml Oral.Susp) 30 ml PO DAILY PRN PRN Reason: Constipation Last Admin: 01/30/22 22:11 Dose: 30 ml Miconazole Nitrate (Miconazole Nitrate 2% Oint 57 Gm Oint...G.) 1 appl TOPICAL BID [facility]; Protocol Last Admin: 03/11/22 09:43 Dose: 1 appl Mirtazapine (Mirtazapine 15 Mg Tablet) 15 mg PO BEDTIME [facility] Last Admin: 03/10/22 20:09 Dose: 15 mg Olanzapine (Olanzapine 10 Mg Vial) 5 mg IM STAT PRN PRN Reason: refusal of Clozaril PO Last Admin: 03/05/22 17:29 Dose: 5 mg Polyethylene Glycol (Polyethylene Glycol 3350 17 Gm Powd.Pack) 17 gm PO BID [facility] Last Admin: 03/11/22 09:43 Dose: 17 gm Prazosin HCl (Prazosin Hcl 1 Mg Capsule) 2 mg PO TID [facility]; Protocol Last Admin: 03/11/22 09:42 Dose: 2 mg Senna (Sennosides 8.6 Mg Tablet) 8.6 mg PO BEDTIME [facility] Last Admin: 03/10/22 20:08 Dose: 8.6 mg Trazodone HCl (Trazodone Hcl 50 Mg Tablet) 50 mg PO BEDTIME PRN PRN Reason: Insomnia Last Admin: 03/09/22 22:31 Dose: 50 mg Trolamine Salicylate/Aloe Vera (Trolamine Salicylate 10%/Aloe Cream 35.4 Gm) 1 appl TOPICAL TID PRN PRN Reason: neck pain Last Admin: 02/02/22 22:34 Dose: 1 appl Allergies Allergies Allergy/AdvReac Type Severity Reaction Status Date / Time No Known Allergies Allergy Unverified 05/01/20 19:42 [No Known Allergies*] Assessment & Plan Assessment & Plan (1) Schizophrenia, paranoid, chronic with acute exacerbation: Status: Acute Code(s): F20.0 - Paranoid schizophrenia (2) Hypertension: Status: Acute Code(s): I10 - Essential (primary) hypertension (3) Dementia: Status: Acute Code(s): F03.90 - Unspecified dementia without behavioral disturbance Plan Elderly female with a long history of schizoaffective disorder bipolar type who was admitted into the facility for exacerbation of psychosis and mood lability. The patient is on Clozaril and apparently she has not been fully compliant with treatment. 11/21 slipped, hit head on 11/20, head CT reviewed and unremarkable. We did a MOCA and she is technically demented at this moment 02/28 continue current tx plan Plan 1. The patient at this moment is on 3 psychotics, Clozaril , Haldol and Invega Sustenna. 2. Discontinue Haldol 5 mg IM if the patient refuses Clozaril and replace with Zyprexa. 3. Lower total Clozaril to 500 mg a day. We will not continue with Invega Sustenna sings there is no improvement with 3 antipsychotics. We will keep her on Clozaril and Haldol p.o.. 4. Waiting for placement 5. Increase prazosin up to 2 mg p.o. t.i.d. to target nightmares since her blood pressure is stable I spent ___20___ minutes with the patient and/or on the patient floor today, greater than?50% of which was spent counseling/coordinating care. Reason for contiued inpatient stay Substantial Risk for: inability to function, rapid decompensation and med/psych decompensation
[2022-03-11 18:00] VITALS: BP 115/82; PULSE 88; TEMP 36.6; O2SAT 98
[2022-03-11] MEDS: OLANZapine 10 MG VIAL 5 MG IM (22:30)
--- NOTE | 2022-03-12 03:30 | PC.NURSE ---
At aprox 2230, pt given IM Zyprexa 5mg d/t refusal to take meds incluidng clozapine. Pt was cooperative with the process.
[2022-03-12 06:00] VITALS: BP 92/51; PULSE 82; RESP 17; TEMP 36.5; O2SAT 95
[2022-03-12 09:14] LABS: Neut%MD 65.8 %; Neutrophils Absolute Auto 4.4 x10*3/uL (2.0-8.3); WBCANC 6.6 X10*3/uL
[2022-03-12] MEDS: hydroCHLOROthiazide 25 MG TABLET PO (10:06)
[2022-03-12] MEDS: cloZAPine 100 MG TABLET PO ×2 (10:06→15:39)
[2022-03-12] MEDS: Lithium Carbonate 300 MG CAPSULE PO ×2 (10:08→21:08)
[2022-03-12] MEDS: Apixaban 5 MG TABLET PO ×2 (10:08→21:08)
[2022-03-12] MEDS: Prazosin HCL 1 MG CAPSULE 2 MG PO ×3 (10:08→21:08)
[2022-03-12] MEDS: Benztropine Mesylate 1 MG TABLET PO ×2 (10:08→21:07)
[2022-03-12] MEDS: Desmopressin Acetate 0.2 MG TABLET PO ×2 (10:08→21:07)
[2022-03-12] MEDS: Docusate Sodium 100 MG CAPSULE PO ×2 (10:08→21:08)
[2022-03-12] MEDS: polyethylene glycoL 3350 17 GM POWD.PACK PO ×2 (10:09→21:08)
[2022-03-12] MEDS: HaloperidoL 5 MG TABLET PO ×2 (10:09→21:08)
--- NOTE | 2022-03-12 14:11 | HO.PSYCHPN ---
Subjective Subjective Date of Service: 03/12/22 Reason For Visit: psychotic disorder Subjective Notes: Conditional Voluntary Interim History: The nursing staff reported the patient refused her Clozaril at night and she needed Zyprexa IM as a backup. On interview the patient denies new symptoms, I encourage her compliance. The staff has noticed that they yelling has lowered since prazosin was started. Mental Status Exam Mental Status Exam Patient Appearance: Well Grooomed Patient Orientation: Person and Situation Level of Consciousness: Awake Patient Behavior: Cooperative Mood Description: Calm Affect Description: Labile Patient Cognition Impaired: Yes Ability to Follow Directions: Good Speech Pattern: Clear Hallucinations: Auditory Delusions: Paranoid Ideation Thought Process: Distracted Thought Content: positive for Circumstantial Judgement: Fair Diagnostics Vital Signs (24Hr): Vital Signs - 24 hr 03/11/22 18:00 03/12/22 06:00 Temperature 97.8 F 97.7 F Pulse Rate 88 82 Respiratory Rate 17 Blood Pressure 115/82 92/51 L Pulse Oximetry 98 95 Oxygen Delivery Method Room Air Room Air BMI result Body Mass Index 27.8 Labs Results: 01/22/22 08:07 02/20/22 19:35 Labs: Laboratory Results - last 48 hr 03/12/22 08:54 Absolute Neuts (auto) 4.4 Imaging Radiology Impressions: ITS Impressions Head CT 10/08/21 15:16 IMPRESSION: No acute intracranial pathology. Head CT 10/09/21 13:54 IMPRESSION: No acute intracranial pathology. Pelvic/Transvag US 10/13/21 09:24 IMPRESSION: Abnormally thickened endometrium for a postmenopausal patient measuring 0.9 cm. 3 x 2.7 x 3.7 cm mass in the posterior cervix. This may represent a fibroid. Slightly thickened trabeculated bladder wall. Head CT 10/20/21 08:18 IMPRESSION: No acute intracranial pathology. This critical result was discussed with Dr. Chu at 8:30 hours on 10/20/2021. It was ascertained that the content and urgency of the report was understood at the time of direct communication. Head CT 11/20/21 19:29 IMPRESSION: No acute intracranial pathology. Medications Medications Current Medications Acetaminophen (Acetaminophen 325 Mg Tablet) 650 mg PO Q6H PRN PRN Reason: Headache/Pain Mild Scale (1-3) Last Admin: 03/04/22 20:47 Dose: 650 mg Al Hydroxide/Mg Hydroxide (Magnesium Hydrox/Alum Hydrox 30 Ml Oral.Susp) 30 ml PO Q6H PRN PRN Reason: Heartburn/Nausea Apixaban (Apixaban 5 Mg Tablet) 5 mg PO BID [facility] Last Admin: 03/12/22 10:08 Dose: 5 mg Benztropine Mesylate (Benztropine Mesylate 1 Mg Tablet) 1 mg PO BID [facility] Last Admin: 03/12/22 10:08 Dose: 1 mg Bisacodyl (Bisacodyl 10 Mg Supp.Rect) 10 mg [place] DAILY PRN PRN Reason: Constipation Last Admin: 12/16/21 04:01 Dose: 10 mg Clozapine (Clozapine 100 Mg Tablet) 100 mg PO DAILY [facility] Last Admin: 03/12/22 10:06 Dose: 100 mg Clozapine (Clozapine 100 Mg Tablet) 300 mg PO BEDTIME [facility] Last Admin: 03/11/22 22:31 Dose: Not Given Clozapine (Clozapine 100 Mg Tablet) 100 mg PO DAILY@1700 [facility] Last Admin: 03/11/22 17:16 Dose: 100 mg Desmopressin Acetate (Desmopressin Acetate 0.2 Mg Tablet) 0.2 mg PO BID [facility] Last Admin: 03/12/22 10:08 Dose: 0.2 mg Docusate Sodium (Docusate Sodium 100 Mg Capsule) 100 mg PO BID [facility] Last Admin: 03/12/22 10:08 Dose: 100 mg Haloperidol (Haloperidol 5 Mg Tablet) 5 mg PO BID [facility] Last Admin: 03/12/22 10:09 Dose: 5 mg Hydrochlorothiazide (Hydrochlorothiazide 25 Mg Tablet) 25 mg PO DAILY [facility]; Protocol Last Admin: 03/12/22 10:06 Dose: 25 mg Hydroxyzine HCl (Hydroxyzine Hcl 25 Mg Tablet) 25 mg PO BEDTIME PRN PRN Reason: Anxiety Last Admin: 03/04/22 20:48 Dose: 25 mg Hydroxyzine HCl (Hydroxyzine Hcl 25 Mg Tablet) 25 mg PO BID PRN PRN Reason: Anxiety Last Admin: 03/03/22 14:12 Dose: 25 mg [place] Carbonate (Gravity Carbonate 300 Mg Capsule) 300 mg PO BID [facility] Last Admin: 03/12/22 10:08 Dose: 300 mg Loperamide HCl (Loperamide Hcl 2 Mg Capsule) 4 mg PO Q4H PRN PRN Reason: Diarrhea Last Admin: 11/01/21 17:04 Dose: 4 mg Magnesium Hydroxide (Milk Of Magnesia 30 Ml Oral.Susp) 30 ml PO DAILY PRN PRN Reason: Constipation Last Admin: 01/30/22 22:11 Dose: 30 ml Miconazole Nitrate (Miconazole Nitrate 2% Oint 57 Gm Oint...G.) 1 appl TOPICAL BID [facility]; Protocol Last Admin: 03/12/22 10:25 Dose: Not Given Mirtazapine (Mirtazapine 15 Mg Tablet) 15 mg PO BEDTIME [facility] Last Admin: 03/11/22 22:32 Dose: Not Given Olanzapine (Olanzapine 10 Mg Vial) 5 mg IM STAT PRN PRN Reason: refusal of Clozaril PO Last Admin: 03/11/22 22:30 Dose: 5 mg Polyethylene Glycol (Polyethylene Glycol 3350 17 Gm Powd.Pack) 17 gm PO BID [facility] Last Admin: 03/12/22 10:09 Dose: 17 gm Prazosin HCl (Prazosin Hcl 1 Mg Capsule) 2 mg PO TID [facility]; Protocol Last Admin: 03/12/22 10:08 Dose: 2 mg Senna (Sennosides 8.6 Mg Tablet) 8.6 mg PO BEDTIME [facility] Last Admin: 03/11/22 22:32 Dose: Not Given Trazodone HCl (Trazodone Hcl 50 Mg Tablet) 50 mg PO BEDTIME PRN PRN Reason: Insomnia Last Admin: 03/09/22 22:31 Dose: 50 mg Trolamine Salicylate/Aloe Vera (Trolamine Salicylate 10%/Aloe Cream 35.4 Gm) 1 appl TOPICAL TID PRN PRN Reason: neck pain Last Admin: 02/02/22 22:34 Dose: 1 appl Allergies Allergies Allergy/AdvReac Type Severity Reaction Status Date / Time No Known Allergies Allergy Unverified 05/01/20 19:42 [No Known Allergies*] Assessment & Plan Assessment & Plan (1) Schizophrenia, paranoid, chronic with acute exacerbation: Status: Acute Code(s): F20.0 - Paranoid schizophrenia (2) Hypertension: Status: Acute Code(s): I10 - Essential (primary) hypertension (3) Dementia: Status: Acute Code(s): F03.90 - Unspecified dementia without behavioral disturbance Plan Elderly female with a long history of schizoaffective disorder bipolar type who was admitted into the facility for exacerbation of psychosis and mood lability. The patient is on Clozaril and apparently she has not been fully compliant with treatment. 11/21 slipped, hit head on 11/20, head CT reviewed and unremarkable. We did a MOCA and she is technically demented at this moment 02/28 continue current tx plan Plan 1. The patient at this moment is on 3 psychotics, Clozaril , Haldol and Invega Sustenna. 2. Discontinue Haldol 5 mg IM if the patient refuses Clozaril and replace with Zyprexa. 3. Lower total Clozaril to 500 mg a day. We will not continue with Invega Sustenna sings there is no improvement with 3 antipsychotics. We will keep her on Clozaril and Haldol p.o.. 4. Waiting for placement 5. Increase prazosin up to 2 mg p.o. t.i.d. to target nightmares since her blood pressure is stable I spent __20____ minutes with the patient and/or on the patient floor today, greater than?50% of which was spent counseling/coordinating care. Reason for contiued inpatient stay Substantial Risk for: inability to function, rapid decompensation and med/psych decompensation
--- NOTE | 2022-03-12 16:58 | PC.NURSE ---
Pt accepted all medications during the daytime. The pt reports anxiety at 8/10, denies depression. Observed 1 yelling outburst for the pt during the daytime. The pt showered during the daytime.
[2022-03-12] MEDS: cloZAPine 100 MG TABLET 300 MG PO (21:07)
[2022-03-12] MEDS: Mirtazapine 15 MG TABLET PO (21:07)
[2022-03-12 22:00] VITALS: BP 101/50; PULSE 87; TEMP 36.8; O2SAT 97
[2022-03-13] MEDS: Sennosides 8.6 MG TABLET PO ×3 (03:53→23:06)
--- NOTE | 2022-03-13 10:01 | HO.PSYCHPN ---
Subjective Subjective Date of Service: 03/13/22 Reason For Visit: psychotic disorder Subjective Notes: Conditional Voluntary Interim History: The nursing staff reported the patient refused her medications last night and she took it finally after a lot of encouragement. On interview the patient reports no new symptoms. Mental Status Exam Mental Status Exam Patient Appearance: Appropriate Patient Orientation: Person and Situation Level of Consciousness: Awake Patient Behavior: Guarded Mood Description: Withdrawn Affect Description: Labile Patient Cognition Impaired: Yes Ability to Follow Directions: Good Speech Pattern: Clear Hallucinations: None Delusions: Paranoid Ideation Thought Process: Illogical Thought Content: positive for [place] and positive for Poverty of Content Judgement: Fair Diagnostics Vital Signs (24Hr): Vital Signs - 24 hr 03/12/22 22:00 Temperature 98.3 F Pulse Rate 87 Blood Pressure 101/50 L Pulse Oximetry 97 Oxygen Delivery Method Room Air BMI result Body Mass Index 27.8 Labs Results: 01/22/22 08:07 02/20/22 19:35 Labs: Laboratory Results - last 48 hr 03/12/22 08:54 Absolute Neuts (auto) 4.4 Imaging Radiology Impressions: ITS Impressions Head CT 10/08/21 15:16 IMPRESSION: No acute intracranial pathology. Head CT 10/09/21 13:54 IMPRESSION: No acute intracranial pathology. Pelvic/Transvag US 10/13/21 09:24 IMPRESSION: Abnormally thickened endometrium for a postmenopausal patient measuring 0.9 cm. 3 x 2.7 x 3.7 cm mass in the posterior cervix. This may represent a fibroid. Slightly thickened trabeculated bladder wall. Head CT 10/20/21 08:18 IMPRESSION: No acute intracranial pathology. This critical result was discussed with Dr. Chu at 8:30 hours on 10/20/2021. It was ascertained that the content and urgency of the report was understood at the time of direct communication. Head CT 11/20/21 19:29 IMPRESSION: No acute intracranial pathology. Medications Medications Current Medications Acetaminophen (Acetaminophen 325 Mg Tablet) 650 mg PO Q6H PRN PRN Reason: Headache/Pain Mild Scale (1-3) Last Admin: 03/04/22 20:47 Dose: 650 mg Al Hydroxide/Mg Hydroxide (Magnesium Hydrox/Alum Hydrox 30 Ml Oral.Susp) 30 ml PO Q6H PRN PRN Reason: Heartburn/Nausea Apixaban (Apixaban 5 Mg Tablet) 5 mg PO BID [facility] Last Admin: 03/12/22 21:08 Dose: 5 mg Benztropine Mesylate (Benztropine Mesylate 1 Mg Tablet) 1 mg PO BID [facility] Last Admin: 03/12/22 21:07 Dose: 1 mg Bisacodyl (Bisacodyl 10 Mg Supp.Rect) 10 mg [place] DAILY PRN PRN Reason: Constipation Last Admin: 12/16/21 04:01 Dose: 10 mg Clozapine (Clozapine 100 Mg Tablet) 100 mg PO DAILY [facility] Last Admin: 03/12/22 10:06 Dose: 100 mg Clozapine (Clozapine 100 Mg Tablet) 300 mg PO BEDTIME [facility] Last Admin: 03/12/22 21:07 Dose: 300 mg Clozapine (Clozapine 100 Mg Tablet) 100 mg PO DAILY@1700 [facility] Last Admin: 03/12/22 15:39 Dose: 100 mg Desmopressin Acetate (Desmopressin Acetate 0.2 Mg Tablet) 0.2 mg PO BID [facility] Last Admin: 03/12/22 21:07 Dose: 0.2 mg Docusate Sodium (Docusate Sodium 100 Mg Capsule) 100 mg PO BID [facility] Last Admin: 03/12/22 21:08 Dose: 100 mg Haloperidol (Haloperidol 5 Mg Tablet) 5 mg PO BID [facility] Last Admin: 03/12/22 21:08 Dose: 5 mg Hydrochlorothiazide (Hydrochlorothiazide 25 Mg Tablet) 25 mg PO DAILY [facility]; Protocol Last Admin: 03/12/22 10:06 Dose: 25 mg Hydroxyzine HCl (Hydroxyzine Hcl 25 Mg Tablet) 25 mg PO BEDTIME PRN PRN Reason: Anxiety Last Admin: 03/04/22 20:48 Dose: 25 mg Hydroxyzine HCl (Hydroxyzine Hcl 25 Mg Tablet) 25 mg PO BID PRN PRN Reason: Anxiety Last Admin: 03/03/22 14:12 Dose: 25 mg [place] Carbonate ([place] Carbonate 300 Mg Capsule) 300 mg PO BID [facility] Last Admin: 03/12/22 21:08 Dose: 300 mg Loperamide HCl (Loperamide Hcl 2 Mg Capsule) 4 mg PO Q4H PRN PRN Reason: Diarrhea Last Admin: 11/01/21 17:04 Dose: 4 mg Magnesium Hydroxide (Milk Of Magnesia 30 Ml Oral.Susp) 30 ml PO DAILY PRN PRN Reason: Constipation Last Admin: 01/30/22 22:11 Dose: 30 ml Miconazole Nitrate (Miconazole Nitrate 2% Oint 57 Gm Oint...G.) 1 appl TOPICAL BID [facility]; Protocol Last Admin: 03/12/22 21:16 Dose: Not Given Mirtazapine (Mirtazapine 15 Mg Tablet) 15 mg PO BEDTIME [facility] Last Admin: 03/12/22 21:07 Dose: 15 mg Olanzapine (Olanzapine 10 Mg Vial) 5 mg IM STAT PRN PRN Reason: refusal of Clozaril PO Last Admin: 03/11/22 22:30 Dose: 5 mg Polyethylene Glycol (Polyethylene Glycol 3350 17 Gm Powd.Pack) 17 gm PO BID [facility] Last Admin: 03/12/22 21:08 Dose: 17 gm Prazosin HCl (Prazosin Hcl 1 Mg Capsule) 2 mg PO TID [facility]; Protocol Last Admin: 03/12/22 21:08 Dose: 2 mg Senna (Sennosides 8.6 Mg Tablet) 8.6 mg PO BEDTIME [facility] Last Admin: 03/13/22 03:53 Dose: 8.6 mg Trazodone HCl (Trazodone Hcl 50 Mg Tablet) 50 mg PO BEDTIME PRN PRN Reason: Insomnia Last Admin: 03/09/22 22:31 Dose: 50 mg Trolamine Salicylate/Aloe Vera (Trolamine Salicylate 10%/Aloe Cream 35.4 Gm) 1 appl TOPICAL TID PRN PRN Reason: neck pain Last Admin: 02/02/22 22:34 Dose: 1 appl Allergies Allergies Allergy/AdvReac Type Severity Reaction Status Date / Time No Known Allergies Allergy Unverified 05/01/20 19:42 [No Known Allergies*] Assessment & Plan Assessment & Plan (1) Schizophrenia, paranoid, chronic with acute exacerbation: Status: Acute Code(s): F20.0 - Paranoid schizophrenia (2) Hypertension: Status: Acute Code(s): I10 - Essential (primary) hypertension (3) Dementia: Status: Acute Code(s): F03.90 - Unspecified dementia without behavioral disturbance Plan Elderly female with a long history of schizoaffective disorder bipolar type who was admitted into the facility for exacerbation of psychosis and mood lability. The patient is on Clozaril and apparently she has not been fully compliant with treatment. 11/21 slipped, hit head on 4/8, head CT reviewed and unremarkable. We did a MOCA and she is technically demented at this moment 02/28 continue current tx plan Plan 1. The patient at this moment is on 3 psychotics, Clozaril , Haldol and Invega Sustenna. 2. Discontinue Haldol 5 mg IM if the patient refuses Clozaril and replace with Zyprexa. 3. Lower total Clozaril to 500 mg a day. We will not continue with Invega Sustenna sings there is no improvement with 3 antipsychotics. We will keep her on Clozaril and Haldol p.o.. 4. Waiting for placement 5. Increase prazosin up to 2 mg p.o. t.i.d. to target nightmares since her blood pressure is stable I spent __20____ minutes with the patient and/or on the patient floor today, greater than?50% of which was spent counseling/coordinating care. Reason for contiued inpatient stay Substantial Risk for: inability to function, rapid decompensation and med/psych decompensation
[2022-03-13] MEDS: Benztropine Mesylate 1 MG TABLET PO ×2 (10:49→23:05)
[2022-03-13] MEDS: Lithium Carbonate 300 MG CAPSULE PO ×2 (10:50→23:06)
[2022-03-13] MEDS: cloZAPine 100 MG TABLET PO ×2 (10:50→16:41)
[2022-03-13] MEDS: Apixaban 5 MG TABLET PO ×2 (10:50→23:07)
[2022-03-13] MEDS: Desmopressin Acetate 0.2 MG TABLET PO ×2 (10:50→23:07)
[2022-03-13] MEDS: HaloperidoL 5 MG TABLET PO ×2 (10:50→22:52)
[2022-03-13] MEDS: Docusate Sodium 100 MG CAPSULE PO ×2 (10:50→23:08)
[2022-03-13] MEDS: Prazosin HCL 1 MG CAPSULE 2 MG PO ×3 (10:51→23:05)
[2022-03-13] MEDS: polyethylene glycoL 3350 17 GM POWD.PACK PO (10:52)
[2022-03-13] MEDS: hydroCHLOROthiazide 25 MG TABLET PO (10:57)
--- NOTE | 2022-03-13 14:15 | PC.NURSE ---
Addendum entered by Ángela Dorman RN 03/13/22 18:00: Patient has also been med compliant throughout the shift. Original Note: Patient outbursts due to command auditory hallucinations have decreased significantly since starting Prazosin . Patient has yelled out x1 this shift.
[2022-03-13 20:15] VITALS: BP 132/65; PULSE 89; RESP 18; TEMP 36.8; O2SAT 99
[2022-03-13] MEDS: cloZAPine 100 MG TABLET 300 MG PO (22:51)
[2022-03-13] MEDS: Mirtazapine 15 MG TABLET PO (23:07)
[2022-03-14 06:00] VITALS: BP 100/59; PULSE 83; RESP 14; TEMP 36.9; O2SAT 95
[2022-03-14] MEDS: cloZAPine 100 MG TABLET PO ×2 (10:18→15:54)
[2022-03-14] MEDS: hydroCHLOROthiazide 25 MG TABLET PO (10:18)
[2022-03-14] MEDS: Prazosin HCL 1 MG CAPSULE 2 MG PO ×2 (10:18→15:54)
[2022-03-14] MEDS: Benztropine Mesylate 1 MG TABLET PO (10:18)
[2022-03-14] MEDS: Desmopressin Acetate 0.2 MG TABLET PO (10:18)
[2022-03-14] MEDS: Docusate Sodium 100 MG CAPSULE PO (10:18)
[2022-03-14] MEDS: HaloperidoL 5 MG TABLET PO (10:19)
[2022-03-14] MEDS: Lithium Carbonate 300 MG CAPSULE PO (10:19)
[2022-03-14] MEDS: Apixaban 5 MG TABLET PO (10:20)
--- NOTE | 2022-03-14 10:57 | HO.PSYCHPN ---
Subjective Subjective Date of Service: 03/14/22 Reason For Visit: psychotic disorder Subjective Notes: Conditional Voluntary Interim History: The nursing staff reported the patient has been taking her medications but sometimes she is reluctant to take her medications that night and we need to use Zyprexa IM is a backup. She slept well all night last night, her yelling has lower. On interview no new symptoms Mental Status Exam Mental Status Exam Patient Appearance: Well Grooomed Patient Orientation: Person and Situation Level of Consciousness: Awake Patient Behavior: Cooperative Mood Description: Constricted Affect Description: Labile Patient Cognition Impaired: Yes Ability to Follow Directions: Good Speech Pattern: Clear Hallucinations: Auditory Delusions: Paranoid Ideation Thought Process: Distracted Thought Content: positive for [place] and positive for Poverty of Content Judgement: Fair Diagnostics Vital Signs (24Hr): Vital Signs - 24 hr 03/13/22 20:15 03/14/22 06:00 Temperature 98.2 F 98.4 F Pulse Rate 89 83 Respiratory Rate 18 14 Blood Pressure 132/65 100/59 L Pulse Oximetry 99 95 Oxygen Delivery Method Room Air Room Air BMI result Body Mass Index 27.8 Labs Results: 01/22/22 08:07 02/20/22 19:35 Imaging Radiology Impressions: ITS Impressions Head CT 10/08/21 15:16 IMPRESSION: No acute intracranial pathology. Head CT 10/09/21 13:54 IMPRESSION: No acute intracranial pathology. Pelvic/Transvag US 10/13/21 09:24 IMPRESSION: Abnormally thickened endometrium for a postmenopausal patient measuring 0.9 cm. 3 x 2.7 x 3.7 cm mass in the posterior cervix. This may represent a fibroid. Slightly thickened trabeculated bladder wall. Head CT 10/20/21 08:18 IMPRESSION: No acute intracranial pathology. This critical result was discussed with Dr. Chu at 8:30 hours on 10/20/2021. It was ascertained that the content and urgency of the report was understood at the time of direct communication. Head CT 11/20/21 19:29 IMPRESSION: No acute intracranial pathology. Medications Medications Current Medications Acetaminophen (Acetaminophen 325 Mg Tablet) 650 mg PO Q6H PRN PRN Reason: Headache/Pain Mild Scale (1-3) Last Admin: 03/04/22 20:47 Dose: 650 mg Al Hydroxide/Mg Hydroxide (Magnesium Hydrox/Alum Hydrox 30 Ml Oral.Susp) 30 ml PO Q6H PRN PRN Reason: Heartburn/Nausea Apixaban (Apixaban 5 Mg Tablet) 5 mg PO BID [facility] Last Admin: 03/14/22 10:20 Dose: 5 mg Benztropine Mesylate (Benztropine Mesylate 1 Mg Tablet) 1 mg PO BID [facility] Last Admin: 03/14/22 10:18 Dose: 1 mg Bisacodyl (Bisacodyl 10 Mg Supp.Rect) 10 mg [place] DAILY PRN PRN Reason: Constipation Last Admin: 12/16/21 04:01 Dose: 10 mg Clozapine (Clozapine 100 Mg Tablet) 100 mg PO DAILY [facility] Last Admin: 03/14/22 10:18 Dose: 100 mg Clozapine (Clozapine 100 Mg Tablet) 300 mg PO BEDTIME [facility] Last Admin: 03/13/22 22:51 Dose: 300 mg Clozapine (Clozapine 100 Mg Tablet) 100 mg PO DAILY@1700 [facility] Last Admin: 03/13/22 16:41 Dose: 100 mg Desmopressin Acetate (Desmopressin Acetate 0.2 Mg Tablet) 0.2 mg PO BID [facility] Last Admin: 03/14/22 10:18 Dose: 0.2 mg Docusate Sodium (Docusate Sodium 100 Mg Capsule) 100 mg PO BID [facility] Last Admin: 03/14/22 10:18 Dose: 100 mg Haloperidol (Haloperidol 5 Mg Tablet) 5 mg PO BID [facility] Last Admin: 03/14/22 10:19 Dose: 5 mg Hydrochlorothiazide (Hydrochlorothiazide 25 Mg Tablet) 25 mg PO DAILY [facility]; Protocol Last Admin: 03/14/22 10:18 Dose: 25 mg Hydroxyzine HCl (Hydroxyzine Hcl 25 Mg Tablet) 25 mg PO BEDTIME PRN PRN Reason: Anxiety Last Admin: 03/04/22 20:48 Dose: 25 mg Hydroxyzine HCl (Hydroxyzine Hcl 25 Mg Tablet) 25 mg PO BID PRN PRN Reason: Anxiety Last Admin: 03/03/22 14:12 Dose: 25 mg [place] Carbonate ([place] Carbonate 300 Mg Capsule) 300 mg PO BID [facility] Last Admin: 03/14/22 10:19 Dose: 300 mg Loperamide HCl (Loperamide Hcl 2 Mg Capsule) 4 mg PO Q4H PRN PRN Reason: Diarrhea Last Admin: 11/01/21 17:04 Dose: 4 mg Magnesium Hydroxide (Milk Of Magnesia 30 Ml Oral.Susp) 30 ml PO DAILY PRN PRN Reason: Constipation Last Admin: 01/30/22 22:11 Dose: 30 ml Miconazole Nitrate (Miconazole Nitrate 2% Oint 57 Gm Oint...G.) 1 appl TOPICAL BID [facility]; Protocol Last Admin: 03/14/22 10:19 Dose: Not Given Mirtazapine (Mirtazapine 15 Mg Tablet) 15 mg PO BEDTIME [facility] Last Admin: 03/13/22 23:07 Dose: 15 mg Polyethylene Glycol (Polyethylene Glycol 3350 17 Gm Powd.Pack) 17 gm PO BID [facility] Last Admin: 03/14/22 10:19 Dose: Not Given Prazosin HCl (Prazosin Hcl 1 Mg Capsule) 2 mg PO TID [facility]; Protocol Last Admin: 03/14/22 10:18 Dose: 2 mg Senna (Sennosides 8.6 Mg Tablet) 8.6 mg PO BEDTIME [facility] Last Admin: 03/13/22 23:06 Dose: 8.6 mg Trazodone HCl (Trazodone Hcl 50 Mg Tablet) 50 mg PO BEDTIME PRN PRN Reason: Insomnia Last Admin: 03/09/22 22:31 Dose: 50 mg Trolamine Salicylate/Aloe Vera (Trolamine Salicylate 10%/Aloe Cream 35.4 Gm) 1 appl TOPICAL TID PRN PRN Reason: neck pain Last Admin: 02/02/22 22:34 Dose: 1 appl Allergies Allergies Allergy/AdvReac Type Severity Reaction Status Date / Time No Known Allergies Allergy Unverified 05/01/20 19:42 [No Known Allergies*] Assessment & Plan Assessment & Plan (1) Schizophrenia, paranoid, chronic with acute exacerbation: Status: Acute Code(s): F20.0 - Paranoid schizophrenia (2) Hypertension: Status: Acute Code(s): I10 - Essential (primary) hypertension (3) Dementia: Status: Acute Code(s): F03.90 - Unspecified dementia without behavioral disturbance Plan Elderly female with a long history of schizoaffective disorder bipolar type who was admitted into the facility for exacerbation of psychosis and mood lability. The patient is on Clozaril and apparently she has not been fully compliant with treatment. 11/21 slipped, hit head on 11/20, head CT reviewed and unremarkable. We did a MOCA and she is technically demented at this moment 02/28 continue current tx plan Plan 1. The patient at this moment is on 3 psychotics, Clozaril , Haldol and Invega Sustenna. 2. Discontinue Haldol 5 mg IM if the patient refuses Clozaril and replace with Zyprexa. 3. Lower total Clozaril to 500 mg a day. We will not continue with Invega Sustenna sings there is no improvement with 3 antipsychotics. We will keep her on Clozaril and Haldol p.o.. 4. Waiting for placement 5. Increase prazosin up to 2 mg p.o. t.i.d. to target nightmares since her blood pressure is stable I spent ___20___ minutes with the patient and/or on the patient floor today, greater than?50% of which was spent counseling/coordinating care. Reason for contiued inpatient stay Substantial Risk for: inability to function, rapid decompensation and med/psych decompensation
[2022-03-14 21:00] VITALS: BP 124/66; PULSE 86; RESP 16; TEMP 36.3
--- NOTE | 2022-03-14 22:11 | PC.NURSE ---
Addendum entered by Patti Pena RN 03/14/22 22:14: correction to previous note, pt received Zyprexa 10mg for refusal of Clozaril 300mg Original Note: Pt refused all PO bedtime medications. Received Zyprexa 5mg IM per MD order for refusing Clozaril PO.
[2022-03-14] MEDS: OLANZapine 10 MG VIAL IM (22:38)
[2022-03-15 08:45] VITALS: BP 107/58; PULSE 83; RESP 16; TEMP 36.9; O2SAT 94
[2022-03-15] MEDS: HaloperidoL 5 MG TABLET PO ×2 (10:06→21:15)
[2022-03-15] MEDS: Prazosin HCL 1 MG CAPSULE 2 MG PO ×3 (10:06→21:12)
[2022-03-15] MEDS: Benztropine Mesylate 1 MG TABLET PO ×2 (10:06→21:16)
[2022-03-15] MEDS: Lithium Carbonate 300 MG CAPSULE PO ×2 (10:07→21:15)
[2022-03-15] MEDS: Desmopressin Acetate 0.2 MG TABLET PO ×2 (10:07→21:11)
[2022-03-15] MEDS: Apixaban 5 MG TABLET PO ×2 (10:07→21:16)
[2022-03-15] MEDS: hydroCHLOROthiazide 25 MG TABLET PO (10:07)
[2022-03-15] MEDS: Docusate Sodium 100 MG CAPSULE PO ×2 (10:07→21:11)
[2022-03-15] MEDS: cloZAPine 100 MG TABLET PO ×2 (10:08→16:12)
[2022-03-15] MEDS: Miconazole Nitrate 2% Oint 57 GM OINT...G. 1 APPL TOPICAL (10:13)
--- NOTE | 2022-03-15 11:47 | P.PNPSI_ITS ---
Subjective Subjective Date of Service: 03/15/22 Reason For Visit: psychotic disorder Subjective Notes: Conditional Voluntary Interim History: The nursing staff reported the patient has been refusing her Clozaril and she had to use Zyprexa IM as a backup. Also she has been refusing to take his p.o. medications such as prazosin that has proven to help her with her nightmares and the yelling. On interview the patient looks dysphoric and I reinforced the idea of compliance. Mental Status Exam Mental Status Exam Patient Appearance: Well Grooomed Patient Orientation: Person and Situation Level of Consciousness: Awake Patient Behavior: Guarded and Suspicious Mood Description: Withdrawn Affect Description: Constricted Patient Cognition Impaired: Yes Ability to Follow Directions: Good Speech Pattern: Clear Hallucinations: Auditory Delusions: Paranoid Ideation Thought Process: Distracted Thought Content: positive for [place] Judgement: Fair Diagnostics Vital Signs (24Hr): Vital Signs - 24 hr 03/14/22 21:00 03/15/22 08:45 Temperature 97.4 F 98.5 F Pulse Rate 86 83 Respiratory Rate 16 16 Blood Pressure 124/66 107/58 L Pulse Oximetry 94 BMI result Body Mass Index 27.8 Labs Results: 01/22/22 08:07 02/20/22 19:35 Imaging Radiology Impressions: ITS Impressions Head CT 10/08/21 15:16 IMPRESSION: No acute intracranial pathology. Head CT 10/09/21 13:54 IMPRESSION: No acute intracranial pathology. Pelvic/Transvag US 10/13/21 09:24 IMPRESSION: Abnormally thickened endometrium for a postmenopausal patient measuring 0.9 cm. 3 x 2.7 x 3.7 cm mass in the posterior cervix. This may represent a fibroid. Slightly thickened trabeculated bladder wall. Head CT 10/20/21 08:18 IMPRESSION: No acute intracranial pathology. This critical result was discussed with Dr. Chu at 8:30 hours on 10/20/2021. It was ascertained that the content and urgency of the report was understood at the time of direct communication. Head CT 11/20/21 19:29 IMPRESSION: No acute intracranial pathology. Medications Medications Current Medications Acetaminophen (Acetaminophen 325 Mg Tablet) 650 mg PO Q6H PRN PRN Reason: Headache/Pain Mild Scale (1-3) Last Admin: 03/04/22 20:47 Dose: 650 mg Al Hydroxide/Mg Hydroxide (Magnesium Hydrox/Alum Hydrox 30 Ml Oral.Susp) 30 ml PO Q6H PRN PRN Reason: Heartburn/Nausea Apixaban (Apixaban 5 Mg Tablet) 5 mg PO BID [facility] Last Admin: 03/15/22 10:07 Dose: 5 mg Benztropine Mesylate (Benztropine Mesylate 1 Mg Tablet) 1 mg PO BID [facility] Last Admin: 03/15/22 10:06 Dose: 1 mg Bisacodyl (Bisacodyl 10 Mg Supp.Rect) 10 mg [place] DAILY PRN PRN Reason: Constipation Last Admin: 12/16/21 04:01 Dose: 10 mg Clozapine (Clozapine 100 Mg Tablet) 100 mg PO DAILY [facility] Last Admin: 03/15/22 10:08 Dose: 100 mg Clozapine (Clozapine 100 Mg Tablet) 300 mg PO BEDTIME [facility] Last Admin: 03/14/22 22:08 Dose: Not Given Clozapine (Clozapine 100 Mg Tablet) 100 mg PO DAILY@1700 [facility] Last Admin: 03/14/22 15:54 Dose: 100 mg Desmopressin Acetate (Desmopressin Acetate 0.2 Mg Tablet) 0.2 mg PO BID [facility] Last Admin: 03/15/22 10:07 Dose: 0.2 mg Docusate Sodium (Docusate Sodium 100 Mg Capsule) 100 mg PO BID [facility] Last Admin: 03/15/22 10:07 Dose: 100 mg Haloperidol (Haloperidol 5 Mg Tablet) 5 mg PO BID [facility] Last Admin: 03/15/22 10:06 Dose: 5 mg Hydrochlorothiazide (Hydrochlorothiazide 25 Mg Tablet) 25 mg PO DAILY [facility]; Protocol Last Admin: 03/15/22 10:07 Dose: 25 mg Hydroxyzine HCl (Hydroxyzine Hcl 25 Mg Tablet) 25 mg PO BEDTIME PRN PRN Reason: Anxiety Last Admin: 03/04/22 20:48 Dose: 25 mg Hydroxyzine HCl (Hydroxyzine Hcl 25 Mg Tablet) 25 mg PO BID PRN PRN Reason: Anxiety Last Admin: 03/03/22 14:12 Dose: 25 mg [place] Carbonate ([place] Carbonate 300 Mg Capsule) 300 mg PO BID [facility] Last Admin: 03/15/22 10:07 Dose: 300 mg Loperamide HCl (Loperamide Hcl 2 Mg Capsule) 4 mg PO Q4H PRN PRN Reason: Diarrhea Last Admin: 11/01/21 17:04 Dose: 4 mg Magnesium Hydroxide (Milk Of Magnesia 30 Ml Oral.Susp) 30 ml PO DAILY PRN PRN Reason: Constipation Last Admin: 01/30/22 22:11 Dose: 30 ml Miconazole Nitrate (Miconazole Nitrate 2% Oint 57 Gm Oint...G.) 1 appl TOPICAL BID [facility]; Protocol Last Admin: 03/15/22 10:13 Dose: 1 appl Mirtazapine (Mirtazapine 15 Mg Tablet) 15 mg PO BEDTIME [facility] Last Admin: 03/14/22 22:09 Dose: Not Given Olanzapine (Olanzapine 10 Mg Vial) 10 mg IM ONCE PRN PRN Reason: refusal of PO Clozaril Polyethylene Glycol (Polyethylene Glycol 3350 17 Gm Powd.Pack) 17 gm PO BID [facility] Last Admin: 03/14/22 22:09 Dose: Not Given Prazosin HCl (Prazosin Hcl 1 Mg Capsule) 2 mg PO TID [facility]; Protocol Last Admin: 03/15/22 10:06 Dose: 2 mg Senna (Sennosides 8.6 Mg Tablet) 8.6 mg PO BEDTIME [facility] Last Admin: 03/13/22 23:06 Dose: 8.6 mg Trazodone HCl (Trazodone Hcl 50 Mg Tablet) 50 mg PO BEDTIME PRN PRN Reason: Insomnia Last Admin: 03/09/22 22:31 Dose: 50 mg Trolamine Salicylate/Aloe Vera (Trolamine Salicylate 10%/Aloe Cream 35.4 Gm) 1 appl TOPICAL TID PRN PRN Reason: neck pain Last Admin: 02/02/22 22:34 Dose: 1 appl Allergies Allergies Allergy/AdvReac Type Severity Reaction Status Date / Time No Known Allergies Allergy Unverified 05/01/20 19:42 [No Known Allergies*] Assessment & Plan Assessment & Plan (1) Schizophrenia, paranoid, chronic with acute exacerbation: Status: Acute Code(s): F20.0 - Paranoid schizophrenia (2) Hypertension: Status: Acute Code(s): I10 - Essential (primary) hypertension (3) Dementia: Status: Acute Code(s): F03.90 - Unspecified dementia without behavioral disturbance Plan Elderly female with a long history of schizoaffective disorder bipolar type who was admitted into the facility for exacerbation of psychosis and mood lability. The patient is on Clozaril and apparently she has not been fully compliant with treatment. 11/21 slipped, hit head on 11/20, head CT reviewed and unremarkable. We did a MOCA and she is technically demented at this moment 02/28 continue current tx plan Plan 1. The patient at this moment is on 3 psychotics, Clozaril , Haldol and Invega Sustenna. 2. Discontinue Haldol 5 mg IM if the patient refuses Clozaril and replace with Zyprexa. 3. Lower total Clozaril to 500 mg a day. We will not continue with Invega Sustenna sings there is no improvement with 3 antipsychotics. We will keep her on Clozaril and Haldol p.o.. 4. Waiting for placement 5. Keep prazosin up to 2 mg p.o. t.i.d. to target nightmares since her blood pressure is stable I spent ___20___ minutes with the patient and/or on the patient floor today, greater than?50% of which was spent counseling/coordinating care. Reason for contiued inpatient stay Substantial Risk for: inability to function, rapid decompensation and med/psych decompensation
[2022-03-15 19:30] VITALS: BP 115/67; PULSE 84; RESP 16; TEMP 36.2; O2SAT 99
[2022-03-15] MEDS: cloZAPine 100 MG TABLET 300 MG PO (21:00)
[2022-03-15] MEDS: Sennosides 8.6 MG TABLET PO (21:11)
[2022-03-15] MEDS: Mirtazapine 15 MG TABLET PO (21:16)
[2022-03-15] MEDS: hydrOXYzine HCL 25 MG TABLET PO (21:16)
[2022-03-15] MEDS: polyethylene glycoL 3350 17 GM POWD.PACK PO (21:24)
[2022-03-16 07:00] VITALS: BP 103/58; PULSE 80; RESP 16; TEMP 36.2; O2SAT 96
[2022-03-16] MEDS: Desmopressin Acetate 0.2 MG TABLET PO ×2 (09:40→20:18)
[2022-03-16] MEDS: Benztropine Mesylate 1 MG TABLET PO ×2 (09:40→20:17)
[2022-03-16] MEDS: hydroCHLOROthiazide 25 MG TABLET PO (09:40)
[2022-03-16] MEDS: Docusate Sodium 100 MG CAPSULE PO ×2 (09:40→20:19)
[2022-03-16] MEDS: HaloperidoL 5 MG TABLET PO ×2 (09:40→20:18)
[2022-03-16] MEDS: Lithium Carbonate 300 MG CAPSULE PO ×2 (09:40→20:18)
[2022-03-16] MEDS: Prazosin HCL 1 MG CAPSULE 2 MG PO ×3 (09:40→20:17)
[2022-03-16] MEDS: cloZAPine 100 MG TABLET PO ×2 (09:41→16:28)
[2022-03-16] MEDS: Apixaban 5 MG TABLET PO ×2 (09:41→20:18)
--- NOTE | 2022-03-16 15:11 | P.PNPSI_ITS ---
Subjective Subjective Date of Service: 03/16/22 Reason For Visit: psychotic disorder Subjective Notes: Conditional Voluntary Interim History: The nursing staff reports the patient is taking medication her yelling has lowered with the addition of prazosin. On interview the patient denies new symptoms she states that she wants to go back home I explained the challenges of her discharge planning and she understood. Mental Status Exam Mental Status Exam Patient Appearance: Well Grooomed Patient Orientation: Person and Situation Level of Consciousness: Awake Patient Behavior: Appropriate and Cooperative Mood Description: Withdrawn Affect Description: Constricted Patient Cognition Impaired: Yes Ability to Follow Directions: Good Speech Pattern: Clear Hallucinations: None Delusions: Paranoid Ideation Thought Process: Linear Thought Content: positive for [place] Judgement: Fair Diagnostics Vital Signs (24Hr): Vital Signs - 24 hr 03/15/22 19:30 03/16/22 07:00 Temperature 97.2 F 97.1 F Pulse Rate 84 80 Respiratory Rate 16 16 Blood Pressure 115/67 103/58 L Pulse Oximetry 99 96 Oxygen Delivery Method Room Air Room Air BMI result Body Mass Index 27.8 Labs Results: 01/22/22 08:07 02/20/22 19:35 Imaging Radiology Impressions: ITS Impressions Head CT 10/08/21 15:16 IMPRESSION: No acute intracranial pathology. Head CT 10/09/21 13:54 IMPRESSION: No acute intracranial pathology. Pelvic/Transvag US 10/13/21 09:24 IMPRESSION: Abnormally thickened endometrium for a postmenopausal patient measuring 0.9 cm. 3 x 2.7 x 3.7 cm mass in the posterior cervix. This may represent a fibroid. Slightly thickened trabeculated bladder wall. Head CT 10/20/21 08:18 IMPRESSION: No acute intracranial pathology. This critical result was discussed with Dr. Chu at 8:30 hours on 10/20/2021. It was ascertained that the content and urgency of the report was understood at the time of direct communication. Head CT 11/20/21 19:29 IMPRESSION: No acute intracranial pathology. Medications Medications Current Medications Acetaminophen (Acetaminophen 325 Mg Tablet) 650 mg PO Q6H PRN PRN Reason: Headache/Pain Mild Scale (1-3) Last Admin: 03/04/22 20:47 Dose: 650 mg Al Hydroxide/Mg Hydroxide (Magnesium Hydrox/Alum Hydrox 30 Ml Oral.Susp) 30 ml PO Q6H PRN PRN Reason: Heartburn/Nausea Apixaban (Apixaban 5 Mg Tablet) 5 mg PO BID [facility] Last Admin: 03/16/22 09:41 Dose: 5 mg Benztropine Mesylate (Benztropine Mesylate 1 Mg Tablet) 1 mg PO BID [facility] Last Admin: 03/16/22 09:40 Dose: 1 mg Bisacodyl (Bisacodyl 10 Mg Supp.Rect) 10 mg [place] DAILY PRN PRN Reason: Constipation Last Admin: 12/16/21 04:01 Dose: 10 mg Clozapine (Clozapine 100 Mg Tablet) 100 mg PO DAILY [facility] Last Admin: 03/16/22 09:41 Dose: 100 mg Clozapine (Clozapine 100 Mg Tablet) 300 mg PO BEDTIME [facility] Last Admin: 03/15/22 21:00 Dose: 300 mg Clozapine (Clozapine 100 Mg Tablet) 100 mg PO DAILY@1700 [facility] Last Admin: 03/15/22 16:12 Dose: 100 mg Desmopressin Acetate (Desmopressin Acetate 0.2 Mg Tablet) 0.2 mg PO BID [facility] Last Admin: 03/16/22 09:40 Dose: 0.2 mg Docusate Sodium (Docusate Sodium 100 Mg Capsule) 100 mg PO BID [facility] Last Admin: 03/16/22 09:40 Dose: 100 mg Haloperidol (Haloperidol 5 Mg Tablet) 5 mg PO BID [facility] Last Admin: 03/16/22 09:40 Dose: 5 mg Hydrochlorothiazide (Hydrochlorothiazide 25 Mg Tablet) 25 mg PO DAILY [facility]; Protocol Last Admin: 03/16/22 09:40 Dose: 25 mg Hydroxyzine HCl (Hydroxyzine Hcl 25 Mg Tablet) 25 mg PO BEDTIME PRN PRN Reason: Anxiety Last Admin: 03/15/22 21:16 Dose: 25 mg Hydroxyzine HCl (Hydroxyzine Hcl 25 Mg Tablet) 25 mg PO BID PRN PRN Reason: Anxiety Last Admin: 03/03/22 14:12 Dose: 25 mg [place] Carbonate ([place] Carbonate 300 Mg Capsule) 300 mg PO BID [facility] Last Admin: 03/16/22 09:40 Dose: 300 mg Loperamide HCl (Loperamide Hcl 2 Mg Capsule) 4 mg PO Q4H PRN PRN Reason: Diarrhea Last Admin: 11/01/21 17:04 Dose: 4 mg Magnesium Hydroxide (Milk Of Magnesia 30 Ml Oral.Susp) 30 ml PO DAILY PRN PRN Reason: Constipation Last Admin: 01/30/22 22:11 Dose: 30 ml Miconazole Nitrate (Miconazole Nitrate 2% Oint 57 Gm Oint...G.) 1 appl TOPICAL BID [facility]; Protocol Last Admin: 03/16/22 10:33 Dose: Not Given Mirtazapine (Mirtazapine 15 Mg Tablet) 15 mg PO BEDTIME [facility] Last Admin: 03/15/22 21:16 Dose: 15 mg Olanzapine (Olanzapine 10 Mg Vial) 10 mg IM ONCE PRN PRN Reason: refusal of PO Clozaril Polyethylene Glycol (Polyethylene Glycol 3350 17 Gm Powd.Pack) 17 gm PO BID [facility] Last Admin: 03/16/22 10:34 Dose: Not Given Prazosin HCl (Prazosin Hcl 1 Mg Capsule) 2 mg PO TID [facility]; Protocol Last Admin: 03/16/22 09:40 Dose: 2 mg Senna (Sennosides 8.6 Mg Tablet) 8.6 mg PO BEDTIME [facility] Last Admin: 03/15/22 21:11 Dose: 8.6 mg Trazodone HCl (Trazodone Hcl 50 Mg Tablet) 50 mg PO BEDTIME PRN PRN Reason: Insomnia Last Admin: 03/09/22 22:31 Dose: 50 mg Trolamine Salicylate/Aloe Vera (Trolamine Salicylate 10%/Aloe Cream 35.4 Gm) 1 appl TOPICAL TID PRN PRN Reason: neck pain Last Admin: 02/02/22 22:34 Dose: 1 appl Allergies Allergies Allergy/AdvReac Type Severity Reaction Status Date / Time No Known Allergies Allergy Unverified 05/01/20 19:42 [No Known Allergies*] Assessment & Plan Assessment & Plan (1) Schizophrenia, paranoid, chronic with acute exacerbation: Status: Acute Code(s): F20.0 - Paranoid schizophrenia (2) Hypertension: Status: Acute Code(s): I10 - Essential (primary) hypertension (3) Dementia: Status: Acute Code(s): F03.90 - Unspecified dementia without behavioral disturbance Plan Elderly female with a long history of schizoaffective disorder bipolar type who was admitted into the facility for exacerbation of psychosis and mood lability. The patient is on Clozaril and apparently she has not been fully compliant with treatment. 11/21 slipped, hit head on 4/8, head CT reviewed and unremarkable. We did a MOCA and she is technically demented at this moment 02/28 continue current tx plan Plan 1. The patient at this moment is on 3 psychotics, Clozaril , Haldol and Invega Sustenna. 2. Discontinue Haldol 5 mg IM if the patient refuses Clozaril and replace with Zyprexa. 3. Lower total Clozaril to 500 mg a day. We will not continue with Invega Sustenna sings there is no improvement with 3 antipsychotics. We will keep her on Clozaril and Haldol p.o.. 4. Waiting for placement 5. Keep prazosin up to 2 mg p.o. t.i.d. to target nightmares since her blood pressure is stable I spent ___20___ minutes with the patient and/or on the patient floor today, greater than?50% of which was spent counseling/coordinating care. Reason for contiued inpatient stay Substantial Risk for: inability to function, rapid decompensation and med/psych decompensation
[2022-03-16 18:00] VITALS: BP 129/58; PULSE 88; RESP 18; TEMP 36.7; O2SAT 97
--- NOTE | 2022-03-16 18:10 | PC.NURSE ---
Patient visible on unit throughout the shift. Med compliant without persuasion. Patient continues to have decreased episodes of yelling out in response to command AH. Participates in groups. Enjoyed outdoor breaks. Patient did sleep intermittently throughout the shift in the day area. Patient will be evaluated 03/17/22 for placement.
[2022-03-16] MEDS: Mirtazapine 15 MG TABLET PO (20:17)
[2022-03-16] MEDS: cloZAPine 100 MG TABLET 300 MG PO (20:17)
[2022-03-16] MEDS: Sennosides 8.6 MG TABLET PO (20:21)
[2022-03-17 07:00] VITALS: BP 111/59; PULSE 82; RESP 16; TEMP 37; O2SAT 93
[2022-03-17] MEDS: OLANZapine 10 MG VIAL IM (11:29)
--- NOTE | 2022-03-17 14:14 | HO.PSYCHPN ---
Subjective Subjective Date of Service: 03/17/22 Reason For Visit: psychotic disorder Subjective Notes: Conditional Voluntary Interim History: The nursing staff reported the patient has been compliant with medications. Today she packed all her belongings thinking that she is going to be discharged today. They yelling in the middle of the sleep has Lord significantly since prazosin was started. The social media project manager reported that they are going to refer her to more facility since she has already being denied for all local group home facilities. On interview the patient denies new symptoms she looks pleasantly confused Mental Status Exam Mental Status Exam Patient Appearance: Well Grooomed Patient Orientation: Person and Situation Level of Consciousness: Awake Patient Behavior: Cooperative Mood Description: Calm Affect Description: Calm Patient Cognition Impaired: Yes Speech Pattern: Clear Hallucinations: None Delusions: Paranoid Ideation Thought Process: Distracted and Evasive Thought Content: positive for [place] Judgement: Fair Diagnostics Vital Signs (24Hr): Vital Signs - 24 hr 03/16/22 18:00 03/17/22 07:00 Temperature 98.0 F 98.6 F Pulse Rate 88 82 Respiratory Rate 18 16 Blood Pressure 129/58 L 111/59 L Pulse Oximetry 97 93 Oxygen Delivery Method Room Air Room Air BMI result Body Mass Index 27.8 Labs Results: 01/22/22 08:07 02/20/22 19:35 Imaging Radiology Impressions: ITS Impressions Head CT 10/08/21 15:16 IMPRESSION: No acute intracranial pathology. Head CT 10/09/21 13:54 IMPRESSION: No acute intracranial pathology. Pelvic/Transvag US 10/13/21 09:24 IMPRESSION: Abnormally thickened endometrium for a postmenopausal patient measuring 0.9 cm. 3 x 2.7 x 3.7 cm mass in the posterior cervix. This may represent a fibroid. Slightly thickened trabeculated bladder wall. Head CT 10/20/21 08:18 IMPRESSION: No acute intracranial pathology. This critical result was discussed with Dr. Chu at 8:30 hours on 10/20/2021. It was ascertained that the content and urgency of the report was understood at the time of direct communication. Head CT 11/20/21 19:29 IMPRESSION: No acute intracranial pathology. Medications Medications Current Medications Acetaminophen (Acetaminophen 325 Mg Tablet) 650 mg PO Q6H PRN PRN Reason: Headache/Pain Mild Scale (1-3) Last Admin: 07/21/22 20:47 Dose: 650 mg Al Hydroxide/Mg Hydroxide (Magnesium Hydrox/Alum Hydrox 30 Ml Oral.Susp) 30 ml PO Q6H PRN PRN Reason: Heartburn/Nausea Apixaban (Apixaban 5 Mg Tablet) 5 mg PO BID [facility] Last Admin: 03/17/22 11:19 Dose: Not Given Benztropine Mesylate (Benztropine Mesylate 1 Mg Tablet) 1 mg PO BID [facility] Last Admin: 03/17/22 11:20 Dose: Not Given Bisacodyl (Bisacodyl 10 Mg Supp.Rect) 10 mg [place] DAILY PRN PRN Reason: Constipation Last Admin: 12/16/21 04:01 Dose: 10 mg Clozapine (Clozapine 100 Mg Tablet) 100 mg PO DAILY [facility] Last Admin: 03/17/22 11:25 Dose: Not Given Clozapine (Clozapine 100 Mg Tablet) 300 mg PO BEDTIME [facility] Last Admin: 03/16/22 20:17 Dose: 300 mg Clozapine (Clozapine 100 Mg Tablet) 100 mg PO DAILY@1700 [facility] Last Admin: 03/16/22 16:28 Dose: 100 mg Desmopressin Acetate (Desmopressin Acetate 0.2 Mg Tablet) 0.2 mg PO BID [facility] Last Admin: 03/17/22 11:20 Dose: Not Given Docusate Sodium (Docusate Sodium 100 Mg Capsule) 100 mg PO BID [facility] Last Admin: 03/17/22 11:20 Dose: Not Given Haloperidol (Haloperidol 5 Mg Tablet) 5 mg PO BID [facility] Last Admin: 03/17/22 11:20 Dose: Not Given Hydrochlorothiazide (Hydrochlorothiazide 25 Mg Tablet) 25 mg PO DAILY [facility]; Protocol Last Admin: 03/17/22 11:25 Dose: Not Given Hydroxyzine HCl (Hydroxyzine Hcl 25 Mg Tablet) 25 mg PO BEDTIME PRN PRN Reason: Anxiety Last Admin: 03/15/22 21:16 Dose: 25 mg Hydroxyzine HCl (Hydroxyzine Hcl 25 Mg Tablet) 25 mg PO BID PRN PRN Reason: Anxiety Last Admin: 03/03/22 14:12 Dose: 25 mg [place] Carbonate ([place] Carbonate 300 Mg Capsule) 300 mg PO BID [facility] Last Admin: 03/17/22 11:20 Dose: Not Given Loperamide HCl (Loperamide Hcl 2 Mg Capsule) 4 mg PO Q4H PRN PRN Reason: Diarrhea Last Admin: 11/01/21 17:04 Dose: 4 mg Magnesium Hydroxide (Milk Of Magnesia 30 Ml Oral.Susp) 30 ml PO DAILY PRN PRN Reason: Constipation Last Admin: 01/30/22 22:11 Dose: 30 ml Miconazole Nitrate (Miconazole Nitrate 2% Oint 57 Gm Oint...G.) 1 appl TOPICAL BID [facility]; Protocol Last Admin: 03/17/22 11:20 Dose: Not Given Mirtazapine (Mirtazapine 15 Mg Tablet) 15 mg PO BEDTIME [facility] Last Admin: 03/16/22 20:17 Dose: 15 mg Olanzapine (Olanzapine 10 Mg Vial) 10 mg IM ONCE PRN PRN Reason: refusal of PO Clozaril Last Admin: 03/17/22 11:29 Dose: 10 mg Polyethylene Glycol (Polyethylene Glycol 3350 17 Gm Powd.Pack) 17 gm PO BID [facility] Last Admin: 03/17/22 11:21 Dose: Not Given Prazosin HCl (Prazosin Hcl 1 Mg Capsule) 2 mg PO TID [facility]; Protocol Last Admin: 03/17/22 11:22 Dose: Not Given Senna (Sennosides 8.6 Mg Tablet) 8.6 mg PO BEDTIME [facility] Last Admin: 03/16/22 20:21 Dose: 8.6 mg Trazodone HCl (Trazodone Hcl 50 Mg Tablet) 50 mg PO BEDTIME PRN PRN Reason: Insomnia Last Admin: 03/09/22 22:31 Dose: 50 mg Trolamine Salicylate/Aloe Vera (Trolamine Salicylate 10%/Aloe Cream 35.4 Gm) 1 appl TOPICAL TID PRN PRN Reason: neck pain Last Admin: 02/02/22 22:34 Dose: 1 appl Allergies Allergies Allergy/AdvReac Type Severity Reaction Status Date / Time No Known Allergies Allergy Unverified 05/01/20 19:42 [No Known Allergies*] Assessment & Plan Assessment & Plan (1) Schizophrenia, paranoid, chronic with acute exacerbation: Status: Acute Code(s): F20.0 - Paranoid schizophrenia (2) Hypertension: Status: Acute Code(s): I10 - Essential (primary) hypertension (3) Dementia: Status: Acute Code(s): F03.90 - Unspecified dementia without behavioral disturbance Plan Elderly female with a long history of schizoaffective disorder bipolar type who was admitted into the facility for exacerbation of psychosis and mood lability. The patient is on Clozaril and apparently she has not been fully compliant with treatment. 11/21 slipped, hit head on 11/20, head CT reviewed and unremarkable. We did a MOCA and she is technically demented at this moment 02/28 continue current tx plan Plan 1. The patient at this moment is on 3 psychotics, Clozaril , Haldol and Invega Sustenna. 2. Discontinue Haldol 5 mg IM if the patient refuses Clozaril and replace with Zyprexa. 3. Lower total Clozaril to 500 mg a day. We will not continue with Invega Sustenna sings there is no improvement with 3 antipsychotics. We will keep her on Clozaril and Haldol p.o.. 4. Waiting for placement 5. Keep prazosin up to 2 mg p.o. t.i.d. to target nightmares since her blood pressure is stable I spent __20____ minutes with the patient and/or on the patient floor today, greater than?50% of which was spent counseling/coordinating care. Reason for contiued inpatient stay Substantial Risk for: inability to function, rapid decompensation and med/psych decompensation
[2022-03-17] MEDS: Prazosin HCL 1 MG CAPSULE 2 MG PO ×2 (16:42→19:31)
[2022-03-17] MEDS: cloZAPine 100 MG TABLET PO (16:43)
[2022-03-17] MEDS: Mirtazapine 15 MG TABLET PO (19:32)
[2022-03-17] MEDS: Docusate Sodium 100 MG CAPSULE PO (19:32)
[2022-03-17] MEDS: Apixaban 5 MG TABLET PO (19:33)
[2022-03-17] MEDS: Sennosides 8.6 MG TABLET PO (19:33)
[2022-03-17] MEDS: Desmopressin Acetate 0.2 MG TABLET PO (19:33)
[2022-03-17] MEDS: Benztropine Mesylate 1 MG TABLET PO (19:33)
[2022-03-17] MEDS: cloZAPine 100 MG TABLET 300 MG PO (19:34)
[2022-03-17] MEDS: Lithium Carbonate 300 MG CAPSULE PO (19:34)
[2022-03-17] MEDS: HaloperidoL 5 MG TABLET PO (19:34)
[2022-03-17] MEDS: polyethylene glycoL 3350 17 GM POWD.PACK PO (19:36)
[2022-03-17 20:00] VITALS: BP 136/60; PULSE 66; TEMP 36.6; O2SAT 96
[2022-03-18] MEDS: hydrOXYzine HCL 25 MG TABLET PO (00:20)
[2022-03-18 06:00] VITALS: BP 129/83; PULSE 86; RESP 18; TEMP 36.3; O2SAT 98
[2022-03-18 07:00] VITALS: BMI 27.1
--- NOTE | 2022-03-18 11:01 | HO.PSYCHPN ---
Subjective Subjective Date of Service: 03/18/22 Reason For Visit: psychotic disorder Subjective Notes: Conditional Voluntary Interim History: The nursing staff reported that the patient has been fully compliant with treatment, she did not have any verbal outbursts yesterday. The social services technician reported that [facility] willing reassess her and she was referred to other facilities out of the catchment area. On interview the patient denies new symptoms Mental Status Exam Mental Status Exam Patient Appearance: Well Grooomed and Appropriate Patient Orientation: Person Level of Consciousness: Awake Patient Behavior: Cooperative Mood Description: Withdrawn Affect Description: Labile Patient Cognition Impaired: Yes Ability to Follow Directions: Good Speech Pattern: Clear Hallucinations: None Delusions: Paranoid Ideation Perceptual Disturbances: Hallucinations Thought Process: Illogical and Distracted Thought Content: positive for Circumstantial Judgement: Fair Diagnostics Vital Signs (24Hr): Vital Signs - 24 hr 03/17/22 20:00 Temperature 98 F Pulse Rate 66 Blood Pressure 136/60 Pulse Oximetry 96 Oxygen Delivery Method Room Air BMI result Body Mass Index 27.8 Labs Results: 01/22/22 08:07 02/20/22 19:35 Imaging Radiology Impressions: ITS Impressions Head CT 10/08/21 15:16 IMPRESSION: No acute intracranial pathology. Head CT 10/09/21 13:54 IMPRESSION: No acute intracranial pathology. Pelvic/Transvag US 10/13/21 09:24 IMPRESSION: Abnormally thickened endometrium for a postmenopausal patient measuring 0.9 cm. 3 x 2.7 x 3.7 cm mass in the posterior cervix. This may represent a fibroid. Slightly thickened trabeculated bladder wall. Head CT 10/20/21 08:18 IMPRESSION: No acute intracranial pathology. This critical result was discussed with Dr. Chu at 8:30 hours on 10/20/2021. It was ascertained that the content and urgency of the report was understood at the time of direct communication. Head CT 11/20/21 19:29 IMPRESSION: No acute intracranial pathology. Medications Medications Current Medications Acetaminophen (Acetaminophen 325 Mg Tablet) 650 mg PO Q6H PRN PRN Reason: Headache/Pain Mild Scale (1-3) Last Admin: 03/04/22 20:47 Dose: 650 mg Al Hydroxide/Mg Hydroxide (Magnesium Hydrox/Alum Hydrox 30 Ml Oral.Susp) 30 ml PO Q6H PRN PRN Reason: Heartburn/Nausea Apixaban (Apixaban 5 Mg Tablet) 5 mg PO BID [facility] Last Admin: 03/17/22 19:33 Dose: 5 mg Benztropine Mesylate (Benztropine Mesylate 1 Mg Tablet) 1 mg PO BID [facility] Last Admin: 03/17/22 19:33 Dose: 1 mg Bisacodyl (Bisacodyl 10 Mg Supp.Rect) 10 mg [place] DAILY PRN PRN Reason: Constipation Last Admin: 12/16/21 04:01 Dose: 10 mg Clozapine (Clozapine 100 Mg Tablet) 100 mg PO DAILY [facility] Last Admin: 03/17/22 11:25 Dose: Not Given Clozapine (Clozapine 100 Mg Tablet) 300 mg PO BEDTIME [facility] Last Admin: 03/17/22 19:34 Dose: 300 mg Clozapine (Clozapine 100 Mg Tablet) 100 mg PO DAILY@1700 [facility] Last Admin: 03/17/22 16:43 Dose: 100 mg Desmopressin Acetate (Desmopressin Acetate 0.2 Mg Tablet) 0.2 mg PO BID [facility] Last Admin: 03/17/22 19:33 Dose: 0.2 mg Docusate Sodium (Docusate Sodium 100 Mg Capsule) 100 mg PO BID [facility] Last Admin: 03/17/22 19:32 Dose: 100 mg Haloperidol (Haloperidol 5 Mg Tablet) 5 mg PO BID [facility] Last Admin: 03/17/22 19:34 Dose: 5 mg Hydrochlorothiazide (Hydrochlorothiazide 25 Mg Tablet) 25 mg PO DAILY [facility]; Protocol Last Admin: 03/17/22 11:25 Dose: Not Given Hydroxyzine HCl (Hydroxyzine Hcl 25 Mg Tablet) 25 mg PO BEDTIME PRN PRN Reason: Anxiety Last Admin: 03/15/22 21:16 Dose: 25 mg Hydroxyzine HCl (Hydroxyzine Hcl 25 Mg Tablet) 25 mg PO BID PRN PRN Reason: Anxiety Last Admin: 03/18/22 00:20 Dose: 25 mg [place] Carbonate ([place] Carbonate 300 Mg Capsule) 300 mg PO BID [facility] Last Admin: 03/17/22 19:34 Dose: 300 mg Loperamide HCl (Loperamide Hcl 2 Mg Capsule) 4 mg PO Q4H PRN PRN Reason: Diarrhea Last Admin: 11/01/21 17:04 Dose: 4 mg Magnesium Hydroxide (Milk Of Magnesia 30 Ml Oral.Susp) 30 ml PO DAILY PRN PRN Reason: Constipation Last Admin: 01/30/22 22:11 Dose: 30 ml Miconazole Nitrate (Miconazole Nitrate 2% Oint 57 Gm Oint...G.) 1 appl TOPICAL BID [facility]; Protocol Last Admin: 03/17/22 19:35 Dose: Not Given Mirtazapine (Mirtazapine 15 Mg Tablet) 15 mg PO BEDTIME [facility] Last Admin: 03/17/22 19:32 Dose: 15 mg Olanzapine (Olanzapine 10 Mg Vial) 10 mg IM ONCE PRN PRN Reason: refusal of PO Clozaril Last Admin: 03/17/22 11:29 Dose: 10 mg Polyethylene Glycol (Polyethylene Glycol 3350 17 Gm Powd.Pack) 17 gm PO BID [facility] Last Admin: 03/17/22 19:36 Dose: 17 gm Prazosin HCl (Prazosin Hcl 1 Mg Capsule) 2 mg PO TID [facility]; Protocol Last Admin: 03/17/22 19:31 Dose: 2 mg Senna (Sennosides 8.6 Mg Tablet) 8.6 mg PO BEDTIME [facility] Last Admin: 03/17/22 19:33 Dose: 8.6 mg Trazodone HCl (Trazodone Hcl 50 Mg Tablet) 50 mg PO BEDTIME PRN PRN Reason: Insomnia Last Admin: 03/09/22 22:31 Dose: 50 mg Trolamine Salicylate/Aloe Vera (Trolamine Salicylate 10%/Aloe Cream 35.4 Gm) 1 appl TOPICAL TID PRN PRN Reason: neck pain Last Admin: 02/02/22 22:34 Dose: 1 appl Allergies Allergies Allergy/AdvReac Type Severity Reaction Status Date / Time No Known Allergies Allergy Unverified 05/01/20 19:42 [No Known Allergies*] Assessment & Plan Assessment & Plan (1) Schizophrenia, paranoid, chronic with acute exacerbation: Status: Acute Code(s): F20.0 - Paranoid schizophrenia (2) Hypertension: Status: Acute Code(s): I10 - Essential (primary) hypertension (3) Dementia: Status: Acute Code(s): F03.90 - Unspecified dementia without behavioral disturbance Plan Elderly female with a long history of schizoaffective disorder bipolar type who was admitted into the facility for exacerbation of psychosis and mood lability. The patient is on Clozaril and apparently she has not been fully compliant with treatment. 11/21 slipped, hit head on 11/20, head CT reviewed and unremarkable. We did a MOCA and she is technically demented at this moment 02/28 continue current tx plan Plan 1. The patient at this moment is on 3 psychotics, Clozaril , Haldol and Invega Sustenna. 2. Discontinue Haldol 5 mg IM if the patient refuses Clozaril and replace with Zyprexa. 3. Lower total Clozaril to 500 mg a day. We will not continue with Invega Sustenna sings there is no improvement with 3 antipsychotics. We will keep her on Clozaril and Haldol p.o.. 4. Waiting for placement 5. Keep prazosin up to 2 mg p.o. t.i.d. to target nightmares since her blood pressure is stable I spent ___20___ minutes with the patient and/or on the patient floor today, greater than?50% of which was spent counseling/coordinating care. Reason for contiued inpatient stay Substantial Risk for: inability to function, rapid decompensation and med/psych decompensation
[2022-03-18] MEDS: Lithium Carbonate 300 MG CAPSULE PO ×2 (11:07→21:16)
[2022-03-18] MEDS: cloZAPine 100 MG TABLET PO ×2 (11:07→16:36)
[2022-03-18] MEDS: Desmopressin Acetate 0.2 MG TABLET PO ×2 (11:08→21:16)
[2022-03-18] MEDS: Benztropine Mesylate 1 MG TABLET PO ×2 (11:08→21:16)
[2022-03-18] MEDS: Prazosin HCL 1 MG CAPSULE 2 MG PO ×3 (11:08→21:16)
[2022-03-18] MEDS: Docusate Sodium 100 MG CAPSULE PO ×2 (11:08→21:16)
[2022-03-18] MEDS: hydroCHLOROthiazide 25 MG TABLET PO (11:08)
[2022-03-18] MEDS: Apixaban 5 MG TABLET PO ×2 (11:08→21:16)
[2022-03-18] MEDS: HaloperidoL 5 MG TABLET PO ×2 (11:09→21:15)
[2022-03-18] MEDS: polyethylene glycoL 3350 17 GM POWD.PACK PO ×2 (11:30→21:16)
[2022-03-18 18:00] VITALS: BP 132/60; PULSE 86; RESP 16; TEMP 36.2; O2SAT 99
[2022-03-18] MEDS: cloZAPine 100 MG TABLET 300 MG PO (21:15)
[2022-03-18] MEDS: Mirtazapine 15 MG TABLET PO (21:15)
[2022-03-18] MEDS: Sennosides 8.6 MG TABLET PO (21:16)
[2022-03-19 06:00] VITALS: BP 115/63; PULSE 79; RESP 16; TEMP 36.2; O2SAT 97
[2022-03-19 07:55] LABS: Neut%MD 67.9 %; Neutrophils Absolute Auto 4.6 x10*3/uL (2.0-8.3); WBCANC 6.8 X10*3/uL
[2022-03-19] MEDS: cloZAPine 100 MG TABLET PO ×2 (11:04→16:32)
[2022-03-19] MEDS: polyethylene glycoL 3350 17 GM POWD.PACK PO (11:04)
--- NOTE | 2022-03-19 14:11 | HO.PSYCHPN ---
Subjective Subjective Date of Service: 03/19/22 Reason For Visit: psychotic disorder Interim History: The nursing staff reports the patient has been cooperative and fully compliant with treatment still delusional. On interview the patient denies new symptoms she states that she is slightly anxious. Mental Status Exam Mental Status Exam Patient Appearance: Well Grooomed Patient Orientation: Person and Situation Level of Consciousness: Awake Patient Behavior: Cooperative Mood Description: Constricted Affect Description: Labile Patient Cognition Impaired: Yes Ability to Follow Directions: Good Speech Pattern: Clear Hallucinations: None Delusions: Paranoid Ideation Thought Process: Distracted and Evasive Thought Content: positive for Disoriented Judgement: Fair Diagnostics Vital Signs (24Hr): Vital Signs - 24 hr 03/18/22 18:00 03/19/22 06:00 Temperature 97.1 F 97.1 F Pulse Rate 86 79 Respiratory Rate 16 16 Blood Pressure 132/60 115/63 Pulse Oximetry 99 97 Oxygen Delivery Method Room Air Room Air BMI result Body Mass Index 27.1 Labs Results: 01/22/22 08:07 02/20/22 19:35 Labs: Laboratory Results - last 48 hr 03/19/22 07:49 Absolute Neuts (auto) 4.6 Imaging Radiology Impressions: ITS Impressions Head CT 10/08/21 15:16 IMPRESSION: No acute intracranial pathology. Head CT 10/09/21 13:54 IMPRESSION: No acute intracranial pathology. Pelvic/Transvag US 10/13/21 09:24 IMPRESSION: Abnormally thickened endometrium for a postmenopausal patient measuring 0.9 cm. 3 x 2.7 x 3.7 cm mass in the posterior cervix. This may represent a fibroid. Slightly thickened trabeculated bladder wall. Head CT 10/20/21 08:18 IMPRESSION: No acute intracranial pathology. This critical result was discussed with Dr. Chu at 8:30 hours on 10/20/2021. It was ascertained that the content and urgency of the report was understood at the time of direct communication. Head CT 11/20/21 19:29 IMPRESSION: No acute intracranial pathology. Medications Medications Current Medications Acetaminophen (Acetaminophen 325 Mg Tablet) 650 mg PO Q6H PRN PRN Reason: Headache/Pain Mild Scale (1-3) Last Admin: 03/04/22 20:47 Dose: 650 mg Al Hydroxide/Mg Hydroxide (Magnesium Hydrox/Alum Hydrox 30 Ml Oral.Susp) 30 ml PO Q6H PRN PRN Reason: Heartburn/Nausea Apixaban (Apixaban 5 Mg Tablet) 5 mg PO BID [facility] Last Admin: 03/19/22 11:25 Dose: Not Given Benztropine Mesylate (Benztropine Mesylate 1 Mg Tablet) 1 mg PO BID [facility] Last Admin: 03/19/22 11:25 Dose: Not Given Bisacodyl (Bisacodyl 10 Mg Supp.Rect) 10 mg [place] DAILY PRN PRN Reason: Constipation Last Admin: 12/16/21 04:01 Dose: 10 mg Carbamide Peroxide (Carbamide Peroxide 6.5% Otic 15 Ml Drpbtl) 5 drop EAR-BOTH BID [facility] Stop: 03/22/22 15:19 Last Admin: 03/19/22 11:25 Dose: Not Given Clozapine (Clozapine 100 Mg Tablet) 100 mg PO DAILY [facility] Last Admin: 03/19/22 11:04 Dose: 100 mg Clozapine (Clozapine 100 Mg Tablet) 300 mg PO BEDTIME [facility] Last Admin: 03/18/22 21:15 Dose: 300 mg Clozapine (Clozapine 100 Mg Tablet) 100 mg PO DAILY@1700 [facility] Last Admin: 03/18/22 16:36 Dose: 100 mg Desmopressin Acetate (Desmopressin Acetate 0.2 Mg Tablet) 0.2 mg PO BID [facility] Last Admin: 03/19/22 11:25 Dose: Not Given Docusate Sodium (Docusate Sodium 100 Mg Capsule) 100 mg PO BID [facility] Last Admin: 03/19/22 11:25 Dose: Not Given Haloperidol (Haloperidol 5 Mg Tablet) 5 mg PO BID [facility] Last Admin: 03/19/22 11:26 Dose: Not Given Hydrochlorothiazide (Hydrochlorothiazide 25 Mg Tablet) 25 mg PO DAILY [facility]; Protocol Last Admin: 03/19/22 11:26 Dose: Not Given Hydroxyzine HCl (Hydroxyzine Hcl 25 Mg Tablet) 25 mg PO BEDTIME PRN PRN Reason: Anxiety Last Admin: 03/15/22 21:16 Dose: 25 mg Hydroxyzine HCl (Hydroxyzine Hcl 25 Mg Tablet) 25 mg PO BID PRN PRN Reason: Anxiety Last Admin: 03/18/22 00:20 Dose: 25 mg [place] Carbonate ([place] Carbonate 300 Mg Capsule) 300 mg PO BID [facility] Last Admin: 03/19/22 11:26 Dose: Not Given Loperamide HCl (Loperamide Hcl 2 Mg Capsule) 4 mg PO Q4H PRN PRN Reason: Diarrhea Last Admin: 11/01/21 17:04 Dose: 4 mg Magnesium Hydroxide (Milk Of Magnesia 30 Ml Oral.Susp) 30 ml PO DAILY PRN PRN Reason: Constipation Last Admin: 01/30/22 22:11 Dose: 30 ml Miconazole Nitrate (Miconazole Nitrate 2% Oint 57 Gm Oint...G.) 1 appl TOPICAL BID [facility]; Protocol Last Admin: 03/19/22 11:26 Dose: Not Given Mirtazapine (Mirtazapine 15 Mg Tablet) 15 mg PO BEDTIME [facility] Last Admin: 03/18/22 21:15 Dose: 15 mg Olanzapine (Olanzapine 10 Mg Vial) 10 mg IM TID PRN PRN Reason: refusal of PO Clozaril Polyethylene Glycol (Polyethylene Glycol 3350 17 Gm Powd.Pack) 17 gm PO BID [facility] Last Admin: 03/19/22 11:04 Dose: 17 gm Prazosin HCl (Prazosin Hcl 1 Mg Capsule) 2 mg PO TID [facility]; Protocol Last Admin: 03/19/22 11:26 Dose: Not Given Senna (Sennosides 8.6 Mg Tablet) 8.6 mg PO BEDTIME [facility] Last Admin: 03/18/22 21:16 Dose: 8.6 mg Trazodone HCl (Trazodone Hcl 50 Mg Tablet) 50 mg PO BEDTIME PRN PRN Reason: Insomnia Last Admin: 03/09/22 22:31 Dose: 50 mg Trolamine Salicylate/Aloe Vera (Trolamine Salicylate 10%/Aloe Cream 35.4 Gm) 1 appl TOPICAL TID PRN PRN Reason: neck pain Last Admin: 02/02/22 22:34 Dose: 1 appl Allergies Allergies Allergy/AdvReac Type Severity Reaction Status Date / Time No Known Allergies Allergy Unverified 05/01/20 19:42 [No Known Allergies*] Assessment & Plan Assessment & Plan (1) Schizophrenia, paranoid, chronic with acute exacerbation: Status: Acute Code(s): F20.0 - Paranoid schizophrenia (2) Hypertension: Status: Acute Code(s): I10 - Essential (primary) hypertension (3) Dementia: Status: Acute Code(s): F03.90 - Unspecified dementia without behavioral disturbance Plan Elderly female with a long history of schizoaffective disorder bipolar type who was admitted into the facility for exacerbation of psychosis and mood lability. The patient is on Clozaril and apparently she has not been fully compliant with treatment. 11/21 slipped, hit head on 11/20, head CT reviewed and unremarkable. We did a MOCA and she is technically demented at this moment 02/28 continue current tx plan Plan 1. The patient at this moment is on 3 psychotics, Clozaril , Haldol and Invega Sustenna. 2. Discontinue Haldol 5 mg IM if the patient refuses Clozaril and replace with Zyprexa. 3. Lower total Clozaril to 500 mg a day. We will not continue with Invega Sustenna sings there is no improvement with 3 antipsychotics. We will keep her on Clozaril and Haldol p.o.. 4. Waiting for placement 5. Keep prazosin up to 2 mg p.o. t.i.d. to target nightmares since her blood pressure is stable I spent __20____ minutes with the patient and/or on the patient floor today, greater than?50% of which was spent counseling/coordinating care. Reason for contiued inpatient stay Substantial Risk for: inability to function, rapid decompensation and med/psych decompensation
[2022-03-19] MEDS: Prazosin HCL 1 MG CAPSULE 2 MG PO ×2 (17:47→19:46)
[2022-03-19 17:48] VITALS: BP 128/78; PULSE 80; TEMP 36.5; O2SAT 96
[2022-03-19] MEDS: Docusate Sodium 100 MG CAPSULE PO (19:46)
[2022-03-19] MEDS: Lithium Carbonate 300 MG CAPSULE PO (19:46)
[2022-03-19] MEDS: Apixaban 5 MG TABLET PO (19:46)
[2022-03-19] MEDS: Sennosides 8.6 MG TABLET PO (19:46)
[2022-03-19] MEDS: Desmopressin Acetate 0.2 MG TABLET PO (19:46)
[2022-03-19] MEDS: HaloperidoL 5 MG TABLET PO (19:47)
[2022-03-19] MEDS: Benztropine Mesylate 1 MG TABLET PO (19:47)
[2022-03-19] MEDS: cloZAPine 100 MG TABLET 300 MG PO (19:47)
[2022-03-19] MEDS: Mirtazapine 15 MG TABLET PO (19:47)
[2022-03-19] MEDS: Acetaminophen 325 MG TABLET 650 MG PO (19:51)
[2022-03-19] MEDS: Carbamide Peroxide 6.5% Otic 15 ML DRPBTL 5 DROP EAR-BOTH (21:25)
[2022-03-20 06:00] VITALS: BP 110/53; PULSE 78; RESP 12; TEMP 36.6; O2SAT 97
[2022-03-20] MEDS: Desmopressin Acetate 0.2 MG TABLET PO ×2 (09:05→20:21)
[2022-03-20] MEDS: Apixaban 5 MG TABLET PO ×2 (09:05→21:03)
[2022-03-20] MEDS: Prazosin HCL 1 MG CAPSULE 2 MG PO ×2 (09:05→20:20)
[2022-03-20] MEDS: HaloperidoL 5 MG TABLET PO ×2 (09:05→20:21)
[2022-03-20] MEDS: hydroCHLOROthiazide 25 MG TABLET PO (09:05)
[2022-03-20] MEDS: polyethylene glycoL 3350 17 GM POWD.PACK PO (09:05)
[2022-03-20] MEDS: cloZAPine 100 MG TABLET PO ×2 (09:05→16:05)
[2022-03-20] MEDS: Benztropine Mesylate 1 MG TABLET PO ×2 (09:05→20:21)
[2022-03-20] MEDS: Docusate Sodium 100 MG CAPSULE PO ×2 (09:05→20:21)
[2022-03-20] MEDS: Lithium Carbonate 300 MG CAPSULE PO ×2 (09:05→20:21)
--- NOTE | 2022-03-20 18:07 | HO.PSYCHPN ---
Subjective Subjective Date of Service: 03/20/22 Reason For Visit: psychotic disorder Interim History: The nursing staff reports the patient has been mostly cooperative although today seems to have been more irritable. She says I am not good today. Not able to specify what is bothering her. She is seen in the day room interacting with the [facility]. Reported to be responding to IS but less intensely than the past. No distress. No SI or HI. Compliant with medications. Review of Systems Review of Systems Constipation Yes all other systems are reviewed and are negative, Unobtainable due to mental condition and Unobtainable due to mental status Mental Status Exam Mental Status Exam Narrative: adequately dressed. cooperative. no PMA/PMR. speech halting, decr in rate and amount. intermittent loud vocalizations of frustration. apparent thought blocking. affect hyper-intense and constricted. mood not assessed. no SI/HI/AVH expressed. Patient Appearance: Well Grooomed Patient Orientation: Person and Situation Level of Consciousness: Awake Patient Behavior: Cooperative Mood Description: Constricted Affect Description: Labile Patient Cognition Impaired: Yes Ability to Follow Directions: Good Speech Pattern: Clear Memory Description: Intact Diagnostics Vital Signs (24Hr): Vital Signs - 24 hr 03/20/22 06:00 Temperature 97.9 F Pulse Rate 78 Respiratory Rate 12 Blood Pressure 110/53 L Pulse Oximetry 97 Oxygen Delivery Method Room Air BMI result Body Mass Index 27.1 Labs Results: 01/22/22 08:07 02/20/22 19:35 Labs: Laboratory Results - last 48 hr 03/19/22 07:49 Absolute Neuts (auto) 4.6 Imaging Radiology Impressions: ITS Impressions Head CT 10/08/21 15:16 IMPRESSION: No acute intracranial pathology. Head CT 10/09/21 13:54 IMPRESSION: No acute intracranial pathology. Pelvic/Transvag US 10/13/21 09:24 IMPRESSION: Abnormally thickened endometrium for a postmenopausal patient measuring 0.9 cm. 3 x 2.7 x 3.7 cm mass in the posterior cervix. This may represent a fibroid. Slightly thickened trabeculated bladder wall. Head CT 10/20/21 08:18 IMPRESSION: No acute intracranial pathology. This critical result was discussed with Dr. Chu at 8:30 hours on 10/20/2021. It was ascertained that the content and urgency of the report was understood at the time of direct communication. Head CT 11/20/21 19:29 IMPRESSION: No acute intracranial pathology. Medications Medications Current Medications Acetaminophen (Acetaminophen 325 Mg Tablet) 650 mg PO Q6H PRN PRN Reason: Headache/Pain Mild Scale (1-3) Last Admin: 03/19/22 19:51 Dose: 650 mg Al Hydroxide/Mg Hydroxide (Magnesium Hydrox/Alum Hydrox 30 Ml Oral.Susp) 30 ml PO Q6H PRN PRN Reason: Heartburn/Nausea Apixaban (Apixaban 5 Mg Tablet) 5 mg PO BID [facility] Last Admin: 03/20/22 09:05 Dose: 5 mg Benztropine Mesylate (Benztropine Mesylate 1 Mg Tablet) 1 mg PO BID [facility] Last Admin: 03/20/22 09:05 Dose: 1 mg Bisacodyl (Bisacodyl 10 Mg Supp.Rect) 10 mg [place] DAILY PRN PRN Reason: Constipation Last Admin: 12/16/21 04:01 Dose: 10 mg Carbamide Peroxide (Carbamide Peroxide 6.5% Otic 15 Ml Drpbtl) 5 drop EAR-BOTH BID [facility] Stop: 03/22/22 15:19 Last Admin: 03/20/22 10:06 Dose: Not Given Clozapine (Clozapine 100 Mg Tablet) 100 mg PO DAILY [facility] Last Admin: 03/20/22 09:05 Dose: 100 mg Clozapine (Clozapine 100 Mg Tablet) 300 mg PO BEDTIME [facility] Last Admin: 03/19/22 19:47 Dose: 300 mg Clozapine (Clozapine 100 Mg Tablet) 100 mg PO DAILY@1700 [facility] Last Admin: 03/20/22 16:05 Dose: 100 mg Desmopressin Acetate (Desmopressin Acetate 0.2 Mg Tablet) 0.2 mg PO BID [facility] Last Admin: 03/20/22 09:05 Dose: 0.2 mg Docusate Sodium (Docusate Sodium 100 Mg Capsule) 100 mg PO BID [facility] Last Admin: 03/20/22 09:05 Dose: 100 mg Haloperidol (Haloperidol 5 Mg Tablet) 5 mg PO BID [facility] Last Admin: 03/20/22 09:05 Dose: 5 mg Hydrochlorothiazide (Hydrochlorothiazide 25 Mg Tablet) 25 mg PO DAILY [facility]; Protocol Last Admin: 03/20/22 09:05 Dose: 25 mg Hydroxyzine HCl (Hydroxyzine Hcl 25 Mg Tablet) 25 mg PO BEDTIME PRN PRN Reason: Anxiety Last Admin: 03/15/22 21:16 Dose: 25 mg Hydroxyzine HCl (Hydroxyzine Hcl 25 Mg Tablet) 25 mg PO BID PRN PRN Reason: Anxiety Last Admin: 03/18/22 00:20 Dose: 25 mg [place] Carbonate ([place] Carbonate 300 Mg Capsule) 300 mg PO BID [facility] Last Admin: 03/20/22 09:05 Dose: 300 mg Loperamide HCl (Loperamide Hcl 2 Mg Capsule) 4 mg PO Q4H PRN PRN Reason: Diarrhea Last Admin: 11/01/21 17:04 Dose: 4 mg Magnesium Hydroxide (Milk Of Magnesia 30 Ml Oral.Susp) 30 ml PO DAILY PRN PRN Reason: Constipation Last Admin: 01/30/22 22:11 Dose: 30 ml Miconazole Nitrate (Miconazole Nitrate 2% Oint 57 Gm Oint...G.) 1 appl TOPICAL BID [facility]; Protocol Last Admin: 03/20/22 10:01 Dose: Not Given Mirtazapine (Mirtazapine 15 Mg Tablet) 15 mg PO BEDTIME [facility] Last Admin: 03/19/22 19:47 Dose: 15 mg Olanzapine (Olanzapine 10 Mg Vial) 10 mg IM TID PRN PRN Reason: refusal of PO Clozaril Polyethylene Glycol (Polyethylene Glycol 3350 17 Gm Powd.Pack) 17 gm PO BID [facility] Last Admin: 03/20/22 09:05 Dose: 17 gm Prazosin HCl (Prazosin Hcl 1 Mg Capsule) 2 mg PO TID [facility]; Protocol Last Admin: 03/20/22 14:26 Dose: Not Given Senna (Sennosides 8.6 Mg Tablet) 8.6 mg PO BEDTIME [facility] Last Admin: 03/19/22 19:46 Dose: 8.6 mg Trazodone HCl (Trazodone Hcl 50 Mg Tablet) 50 mg PO BEDTIME PRN PRN Reason: Insomnia Last Admin: 03/09/22 22:31 Dose: 50 mg Trolamine Salicylate/Aloe Vera (Trolamine Salicylate 10%/Aloe Cream 35.4 Gm) 1 appl TOPICAL TID PRN PRN Reason: neck pain Last Admin: 02/02/22 22:34 Dose: 1 appl Allergies Allergies Allergy/AdvReac Type Severity Reaction Status Date / Time No Known Allergies Allergy Unverified 05/01/20 19:42 [No Known Allergies*] Assessment & Plan Assessment & Plan (1) Schizophrenia, paranoid, chronic with acute exacerbation: Status: Acute Code(s): F20.0 - Paranoid schizophrenia (2) Hypertension: Status: Acute Code(s): I10 - Essential (primary) hypertension (3) Dementia: Status: Acute Code(s): F03.90 - Unspecified dementia without behavioral disturbance Plan Elderly female with a long history of schizoaffective disorder bipolar type who was admitted into the facility for exacerbation of psychosis and mood lability. The patient is on Clozaril and apparently she has not been fully compliant with treatment. 11/21 slipped, hit head on 11/20, head CT reviewed and unremarkable. We did a MOCA and she is technically demented at this moment 02/28 continue current tx plan Plan 1. The patient at this moment is on 3 psychotics, Clozaril , Haldol and Invega Sustenna. 2. Discontinue Haldol 5 mg IM if the patient refuses Clozaril and replace with Zyprexa. 3. Lower total Clozaril to 500 mg a day. We will not continue with Invega Sustenna sings there is no improvement with 3 antipsychotics. We will keep her on Clozaril and Haldol p.o.. 4. Waiting for placement 5. Keep prazosin up to 2 mg p.o. t.i.d. to target nightmares since her blood pressure is stable 03/20: Continue treatment plan. I spent minutes with the patient and/or on the patient floor today, greater than?50% of which was spent counseling/coordinating care. Reason for contiued inpatient stay Substantial Risk for: inability to function and rapid decompensation
[2022-03-20 20:15] VITALS: BP 124/60; PULSE 91; RESP 16; TEMP 36.4; O2SAT 94
[2022-03-20] MEDS: Mirtazapine 15 MG TABLET PO (20:20)
[2022-03-20] MEDS: cloZAPine 100 MG TABLET 300 MG PO (20:20)
[2022-03-20] MEDS: Sennosides 8.6 MG TABLET PO (20:21)
[2022-03-20] MEDS: Carbamide Peroxide 6.5% Otic 15 ML DRPBTL 5 DROP EAR-BOTH (20:27)
[2022-03-21 07:45] VITALS: BP 110/56; PULSE 84; RESP 16; TEMP 36.7; O2SAT 93
[2022-03-21] MEDS: OLANZapine 10 MG VIAL IM (11:08)
[2022-03-21 14:45] VITALS: BP 128/68
--- NOTE | 2022-03-21 15:09 | P.PNPSI_ITS ---
Subjective Subjective Date of Service: 03/21/22 Reason For Visit: psychotic disorder Interim History: The nursing staff reports the patient has been mostly cooperative. Some intermittent yelling out and screaming heard. She says she feels miserable. Not able to specify what is bothering her. She is seen in the day room interacting with the [facility]. Reported to be responding to IS but less intensely than the past. No distress. No SI or HI. Compliant with medications. Review of Systems Review of Systems Constipation Yes all other systems are reviewed and are negative, Unobtainable due to mental condition and Unobtainable due to mental status Mental Status Exam Mental Status Exam Narrative: adequately dressed. cooperative. no PMA/PMR. speech halting, decr in rate and amount. intermittent loud vocalizations of frustration. apparent thought blocking. affect hyper-intense and constricted. mood not assessed. no SI/HI/AVH expressed. Patient Appearance: Well Grooomed Patient Orientation: Person and Situation Level of Consciousness: Awake Patient Behavior: Cooperative Mood Description: Constricted Affect Description: Labile Patient Cognition Impaired: Yes Ability to Follow Directions: Good Speech Pattern: Clear Memory Description: Intact Diagnostics Vital Signs (24Hr): Vital Signs - 24 hr 03/20/22 20:15 Temperature 97.5 F Pulse Rate 91 Respiratory Rate 16 Blood Pressure 124/60 Pulse Oximetry 94 Oxygen Delivery Method Room Air BMI result Body Mass Index 27.1 Labs Results: 01/22/22 08:07 02/20/22 19:35 Imaging Radiology Impressions: ITS Impressions Head CT 10/08/21 15:16 IMPRESSION: No acute intracranial pathology. Head CT 10/09/21 13:54 IMPRESSION: No acute intracranial pathology. Pelvic/Transvag US 10/13/21 09:24 IMPRESSION: Abnormally thickened endometrium for a postmenopausal patient measuring 0.9 cm. 3 x 2.7 x 3.7 cm mass in the posterior cervix. This may represent a fibroid. Slightly thickened trabeculated bladder wall. Head CT 10/20/21 08:18 IMPRESSION: No acute intracranial pathology. This critical result was discussed with Dr. Chu at 8:30 hours on 10/20/2021. It was ascertained that the content and urgency of the report was understood at the time of direct communication. Head CT 11/20/21 19:29 IMPRESSION: No acute intracranial pathology. Medications Medications Current Medications Acetaminophen (Acetaminophen 325 Mg Tablet) 650 mg PO Q6H PRN PRN Reason: Headache/Pain Mild Scale (1-3) Last Admin: 03/19/22 19:51 Dose: 650 mg Al Hydroxide/Mg Hydroxide (Magnesium Hydrox/Alum Hydrox 30 Ml Oral.Susp) 30 ml PO Q6H PRN PRN Reason: Heartburn/Nausea Apixaban (Apixaban 5 Mg Tablet) 5 mg PO BID [facility] Last Admin: 03/21/22 11:01 Dose: Not Given Benztropine Mesylate (Benztropine Mesylate 1 Mg Tablet) 1 mg PO BID [facility] Last Admin: 03/21/22 11:01 Dose: Not Given Bisacodyl (Bisacodyl 10 Mg Supp.Rect) 10 mg [place] DAILY PRN PRN Reason: Constipation Last Admin: 12/16/21 04:01 Dose: 10 mg Carbamide Peroxide (Carbamide Peroxide 6.5% Otic 15 Ml Drpbtl) 5 drop EAR-BOTH BID [facility] Stop: 03/22/22 15:19 Last Admin: 03/21/22 11:01 Dose: Not Given Clozapine (Clozapine 100 Mg Tablet) 100 mg PO DAILY [facility] Last Admin: 03/21/22 11:02 Dose: Not Given Clozapine (Clozapine 100 Mg Tablet) 300 mg PO BEDTIME [facility] Last Admin: 03/20/22 20:20 Dose: 300 mg Clozapine (Clozapine 100 Mg Tablet) 100 mg PO DAILY@1700 [facility] Last Admin: 03/20/22 16:05 Dose: 100 mg Desmopressin Acetate (Desmopressin Acetate 0.2 Mg Tablet) 0.2 mg PO BID [facility] Last Admin: 03/21/22 11:02 Dose: Not Given Docusate Sodium (Docusate Sodium 100 Mg Capsule) 100 mg PO BID [facility] Last Admin: 03/21/22 11:02 Dose: Not Given Haloperidol (Haloperidol 5 Mg Tablet) 5 mg PO BID [facility] Last Admin: 03/21/22 11:02 Dose: Not Given Hydrochlorothiazide (Hydrochlorothiazide 25 Mg Tablet) 25 mg PO DAILY [facility]; Protocol Last Admin: 03/21/22 11:02 Dose: Not Given Hydroxyzine HCl (Hydroxyzine Hcl 25 Mg Tablet) 25 mg PO BEDTIME PRN PRN Reason: Anxiety Last Admin: 03/15/22 21:16 Dose: 25 mg Hydroxyzine HCl (Hydroxyzine Hcl 25 Mg Tablet) 25 mg PO BID PRN PRN Reason: Anxiety Last Admin: 03/18/22 00:20 Dose: 25 mg [place] Carbonate ([place] Carbonate 300 Mg Capsule) 300 mg PO BID [facility] Last Admin: 03/21/22 11:02 Dose: Not Given Loperamide HCl (Loperamide Hcl 2 Mg Capsule) 4 mg PO Q4H PRN PRN Reason: Diarrhea Last Admin: 11/01/21 17:04 Dose: 4 mg Magnesium Hydroxide (Milk Of Magnesia 30 Ml Oral.Susp) 30 ml PO DAILY PRN PRN Reason: Constipation Last Admin: 01/30/22 22:11 Dose: 30 ml Miconazole Nitrate (Miconazole Nitrate 2% Oint 57 Gm Oint...G.) 1 appl TOPICAL BID [facility]; Protocol Last Admin: 03/21/22 11:02 Dose: Not Given Mirtazapine (Mirtazapine 15 Mg Tablet) 15 mg PO BEDTIME [facility] Last Admin: 03/20/22 20:20 Dose: 15 mg Olanzapine (Olanzapine 10 Mg Vial) 10 mg IM TID PRN PRN Reason: refusal of PO Clozaril Last Admin: 03/21/22 11:08 Dose: 10 mg Polyethylene Glycol (Polyethylene Glycol 3350 17 Gm Powd.Pack) 17 gm PO BID [facility] Last Admin: 03/21/22 11:03 Dose: Not Given Prazosin HCl (Prazosin Hcl 1 Mg Capsule) 2 mg PO TID [facility]; Protocol Last Admin: 03/21/22 15:30 Dose: 2 mg Senna (Sennosides 8.6 Mg Tablet) 8.6 mg PO BEDTIME [facility] Last Admin: 03/20/22 20:21 Dose: 8.6 mg Trazodone HCl (Trazodone Hcl 50 Mg Tablet) 50 mg PO BEDTIME PRN PRN Reason: Insomnia Last Admin: 03/09/22 22:31 Dose: 50 mg Trolamine Salicylate/Aloe Vera (Trolamine Salicylate 10%/Aloe Cream 35.4 Gm) 1 appl TOPICAL TID PRN PRN Reason: neck pain Last Admin: 02/02/22 22:34 Dose: 1 appl Allergies Allergies Allergy/AdvReac Type Severity Reaction Status Date / Time No Known Allergies Allergy Unverified 05/01/20 19:42 [No Known Allergies*] Assessment & Plan Assessment & Plan (1) Schizophrenia, paranoid, chronic with acute exacerbation: Status: Acute Code(s): F20.0 - Paranoid schizophrenia (2) Hypertension: Status: Acute Code(s): I10 - Essential (primary) hypertension (3) Dementia: Status: Acute Code(s): F03.90 - Unspecified dementia without behavioral disturbance Plan Elderly female with a long history of schizoaffective disorder bipolar type who was admitted into the facility for exacerbation of psychosis and mood lability. The patient is on Clozaril and apparently she has not been fully compliant with treatment. 11/21 slipped, hit head on 11/20, head CT reviewed and unremarkable. We did a MOCA and she is technically demented at this moment 02/28 continue current tx plan Plan 1. The patient at this moment is on 3 psychotics, Clozaril , Haldol and Invega Sustenna. 2. Discontinue Haldol 5 mg IM if the patient refuses Clozaril and replace with Zyprexa. 3. Lower total Clozaril to 500 mg a day. We will not continue with Invega Sustenna sings there is no improvement with 3 antipsychotics. We will keep her on Clozaril and Haldol p.o.. 4. Waiting for placement 5. Keep prazosin up to 2 mg p.o. t.i.d. to target nightmares since her blood pressure is stable 03/20: Continue treatment plan. 03/21: Continue treatment plan. I spent minutes with the patient and/or on the patient floor today, greater than?50% of which was spent counseling/coordinating care. Reason for contiued inpatient stay Substantial Risk for: inability to function and rapid decompensation
[2022-03-21] MEDS: Prazosin HCL 1 MG CAPSULE 2 MG PO ×2 (15:30→20:36)
[2022-03-21] MEDS: cloZAPine 100 MG TABLET PO (18:13)
[2022-03-21 19:35] VITALS: BP 116/55; PULSE 96; RESP 16; TEMP 36.6; O2SAT 98
[2022-03-21] MEDS: Lithium Carbonate 300 MG CAPSULE PO (20:30)
[2022-03-21] MEDS: HaloperidoL 5 MG TABLET PO (20:34)
[2022-03-21] MEDS: polyethylene glycoL 3350 17 GM POWD.PACK PO (20:34)
[2022-03-21] MEDS: Apixaban 5 MG TABLET PO (20:34)
[2022-03-21] MEDS: cloZAPine 100 MG TABLET 300 MG PO (20:35)
[2022-03-21] MEDS: Sennosides 8.6 MG TABLET PO (20:36)
[2022-03-21] MEDS: Docusate Sodium 100 MG CAPSULE PO (20:36)
[2022-03-21] MEDS: Mirtazapine 15 MG TABLET PO (20:36)
[2022-03-21] MEDS: Desmopressin Acetate 0.2 MG TABLET PO (20:36)
[2022-03-21] MEDS: Benztropine Mesylate 1 MG TABLET PO (20:37)
[2022-03-22 06:00] VITALS: BP 105/57; PULSE 73; RESP 18; TEMP 36.2; O2SAT 98
[2022-03-22] MEDS: cloZAPine 100 MG TABLET PO ×2 (10:53→15:58)
[2022-03-22] MEDS: Lithium Carbonate 300 MG CAPSULE PO ×2 (10:53→21:07)
[2022-03-22] MEDS: hydroCHLOROthiazide 25 MG TABLET PO (10:53)
[2022-03-22] MEDS: Benztropine Mesylate 1 MG TABLET PO ×2 (10:54→21:05)
[2022-03-22] MEDS: HaloperidoL 5 MG TABLET PO ×2 (10:54→21:07)
[2022-03-22] MEDS: Docusate Sodium 100 MG CAPSULE PO ×2 (10:54→21:07)
[2022-03-22] MEDS: polyethylene glycoL 3350 17 GM POWD.PACK PO ×2 (10:54→21:06)
[2022-03-22] MEDS: Carbamide Peroxide 6.5% Otic 15 ML DRPBTL 5 DROP EAR-BOTH (10:54)
[2022-03-22] MEDS: Prazosin HCL 1 MG CAPSULE 2 MG PO ×3 (10:54→21:05)
[2022-03-22] MEDS: Apixaban 5 MG TABLET PO ×2 (10:54→21:04)
[2022-03-22] MEDS: Desmopressin Acetate 0.2 MG TABLET PO ×2 (10:54→21:06)
--- NOTE | 2022-03-22 13:47 | HO.PSYCHPN ---
Subjective Subjective Date of Service: 03/22/22 Reason For Visit: psychotic disorder Subjective Notes: Conditional Voluntary Interim History: The nursing staff reported that the patient has been compliant with medications. Today in the morning she was very sleepy and she could not take her a.m. meds. On interview the patient showed some thought blocking and I advised her to continue taking her regular psychotropics. No new side effects. Mental Status Exam Mental Status Exam Patient Appearance: Well Grooomed Patient Orientation: Person and Situation Level of Consciousness: Awake Patient Behavior: Guarded and Cooperative Mood Description: Withdrawn Affect Description: Constricted Patient Cognition Impaired: Yes Ability to Follow Directions: Good Speech Pattern: Perseverating and Difficulty Finding Words Hallucinations: None Delusions: Paranoid Ideation Thought Process: Incoherent and Distracted Thought Content: positive for Wallace and positive for Circumstantial Judgement: Fair Diagnostics Vital Signs (24Hr): Vital Signs - 24 hr 03/21/22 14:45 03/21/22 19:35 Temperature 97.8 F Pulse Rate 96 Respiratory Rate 16 Blood Pressure 128/68 116/55 L Pulse Oximetry 98 Oxygen Delivery Method Room Air BMI result Body Mass Index 27.1 Labs Results: 01/22/22 08:07 02/20/22 19:35 Imaging Radiology Impressions: ITS Impressions Head CT 10/08/21 15:16 IMPRESSION: No acute intracranial pathology. Head CT 10/09/21 13:54 IMPRESSION: No acute intracranial pathology. Pelvic/Transvag US 10/13/21 09:24 IMPRESSION: Abnormally thickened endometrium for a postmenopausal patient measuring 0.9 cm. 3 x 2.7 x 3.7 cm mass in the posterior cervix. This may represent a fibroid. Slightly thickened trabeculated bladder wall. Head CT 10/20/21 08:18 IMPRESSION: No acute intracranial pathology. This critical result was discussed with Dr. Chu at 8:30 hours on 10/20/2021. It was ascertained that the content and urgency of the report was understood at the time of direct communication. Head CT 11/20/21 19:29 IMPRESSION: No acute intracranial pathology. Medications Medications Current Medications Acetaminophen (Acetaminophen 325 Mg Tablet) 650 mg PO Q6H PRN PRN Reason: Headache/Pain Mild Scale (1-3) Last Admin: 03/19/22 19:51 Dose: 650 mg Al Hydroxide/Mg Hydroxide (Magnesium Hydrox/Alum Hydrox 30 Ml Oral.Susp) 30 ml PO Q6H PRN PRN Reason: Heartburn/Nausea Apixaban (Apixaban 5 Mg Tablet) 5 mg PO BID [facility] Last Admin: 03/22/22 10:54 Dose: 5 mg Benztropine Mesylate (Benztropine Mesylate 1 Mg Tablet) 1 mg PO BID [facility] Last Admin: 03/22/22 10:54 Dose: 1 mg Bisacodyl (Bisacodyl 10 Mg Supp.Rect) 10 mg [place] DAILY PRN PRN Reason: Constipation Last Admin: 12/16/21 04:01 Dose: 10 mg Carbamide Peroxide (Carbamide Peroxide 6.5% Otic 15 Ml Drpbtl) 5 drop EAR-BOTH BID [facility] Stop: 03/22/22 15:19 Last Admin: 03/22/22 10:54 Dose: 5 drop Clozapine (Clozapine 100 Mg Tablet) 100 mg PO DAILY [facility] Last Admin: 03/22/22 10:53 Dose: 100 mg Clozapine (Clozapine 100 Mg Tablet) 300 mg PO BEDTIME [facility] Last Admin: 03/21/22 20:35 Dose: 300 mg Clozapine (Clozapine 100 Mg Tablet) 100 mg PO DAILY@1700 [facility] Last Admin: 03/21/22 18:13 Dose: 100 mg Desmopressin Acetate (Desmopressin Acetate 0.2 Mg Tablet) 0.2 mg PO BID [facility] Last Admin: 03/22/22 10:54 Dose: 0.2 mg Docusate Sodium (Docusate Sodium 100 Mg Capsule) 100 mg PO BID [facility] Last Admin: 03/22/22 10:54 Dose: 100 mg Haloperidol (Haloperidol 5 Mg Tablet) 5 mg PO BID [facility] Last Admin: 03/22/22 10:54 Dose: 5 mg Hydrochlorothiazide (Hydrochlorothiazide 25 Mg Tablet) 25 mg PO DAILY [facility]; Protocol Last Admin: 03/22/22 10:53 Dose: 25 mg Hydroxyzine HCl (Hydroxyzine Hcl 25 Mg Tablet) 25 mg PO BEDTIME PRN PRN Reason: Anxiety Last Admin: 03/15/22 21:16 Dose: 25 mg Hydroxyzine HCl (Hydroxyzine Hcl 25 Mg Tablet) 25 mg PO BID PRN PRN Reason: Anxiety Last Admin: 03/18/22 00:20 Dose: 25 mg [place] Carbonate ([place] Carbonate 300 Mg Capsule) 300 mg PO BID [facility] Last Admin: 03/22/22 10:53 Dose: 300 mg Loperamide HCl (Loperamide Hcl 2 Mg Capsule) 4 mg PO Q4H PRN PRN Reason: Diarrhea Last Admin: 11/01/21 17:04 Dose: 4 mg Magnesium Hydroxide (Milk Of Magnesia 30 Ml Oral.Susp) 30 ml PO DAILY PRN PRN Reason: Constipation Last Admin: 01/30/22 22:11 Dose: 30 ml Miconazole Nitrate (Miconazole Nitrate 2% Oint 57 Gm Oint...G.) 1 appl TOPICAL BID [facility]; Protocol Last Admin: 03/21/22 20:44 Dose: Not Given Mirtazapine (Mirtazapine 15 Mg Tablet) 15 mg PO BEDTIME [facility] Last Admin: 03/21/22 20:36 Dose: 15 mg Olanzapine (Olanzapine 10 Mg Vial) 10 mg IM TID PRN PRN Reason: refusal of PO Clozaril Last Admin: 03/21/22 11:08 Dose: 10 mg Polyethylene Glycol (Polyethylene Glycol 3350 17 Gm Powd.Pack) 17 gm PO BID [facility] Last Admin: 03/22/22 10:54 Dose: 17 gm Prazosin HCl (Prazosin Hcl 1 Mg Capsule) 2 mg PO TID [facility]; Protocol Last Admin: 03/22/22 10:54 Dose: 2 mg Senna (Sennosides 8.6 Mg Tablet) 8.6 mg PO BEDTIME [facility] Last Admin: 03/21/22 20:36 Dose: 8.6 mg Trazodone HCl (Trazodone Hcl 50 Mg Tablet) 50 mg PO BEDTIME PRN PRN Reason: Insomnia Last Admin: 03/09/22 22:31 Dose: 50 mg Trolamine Salicylate/Aloe Vera (Trolamine Salicylate 10%/Aloe Cream 35.4 Gm) 1 appl TOPICAL TID PRN PRN Reason: neck pain Last Admin: 02/02/22 22:34 Dose: 1 appl Allergies Allergies Allergy/AdvReac Type Severity Reaction Status Date / Time No Known Allergies Allergy Unverified 05/01/20 19:42 [No Known Allergies*] Assessment & Plan Assessment & Plan (1) Schizophrenia, paranoid, chronic with acute exacerbation: Status: Acute Code(s): F20.0 - Paranoid schizophrenia (2) Hypertension: Status: Acute Code(s): I10 - Essential (primary) hypertension (3) Dementia: Status: Acute Code(s): F03.90 - Unspecified dementia without behavioral disturbance Plan Elderly female with a long history of schizoaffective disorder bipolar type who was admitted into the facility for exacerbation of psychosis and mood lability. The patient is on Clozaril and apparently she has not been fully compliant with treatment. 11/21 slipped, hit head on 11/20, head CT reviewed and unremarkable. We did a MOCA and she is technically demented at this moment 02/28 continue current tx plan Plan 1. The patient at this moment is on 3 psychotics, Clozaril , Haldol and Invega Sustenna. 2. Discontinue Haldol 5 mg IM if the patient refuses Clozaril and replace with Zyprexa. 3. Lower total Clozaril to 500 mg a day. We will not continue with Invega Sustenna sings there is no improvement with 3 antipsychotics. We will keep her on Clozaril and Haldol p.o.. 4. Waiting for placement 5. Keep prazosin up to 2 mg p.o. t.i.d. to target nightmares since her blood pressure is stable I spent __20____ minutes with the patient and/or on the patient floor today, greater than?50% of which was spent counseling/coordinating care. Reason for contiued inpatient stay Substantial Risk for: inability to function, rapid decompensation and med/psych decompensation
[2022-03-22 18:00] VITALS: BP 112/60; PULSE 87; TEMP 36.9; O2SAT 97
[2022-03-22] MEDS: cloZAPine 100 MG TABLET 300 MG PO (21:06)
[2022-03-22] MEDS: Sennosides 8.6 MG TABLET PO (21:06)
[2022-03-22] MEDS: Mirtazapine 15 MG TABLET PO (21:07)
[2022-03-23 08:25] VITALS: BP 110/56; PULSE 82; RESP 16; TEMP 36.2; O2SAT 91
[2022-03-23] MEDS: HaloperidoL 5 MG TABLET PO ×2 (11:32→21:20)
[2022-03-23] MEDS: Apixaban 5 MG TABLET PO ×2 (11:32→21:20)
[2022-03-23] MEDS: Docusate Sodium 100 MG CAPSULE PO ×2 (11:32→21:20)
[2022-03-23] MEDS: Benztropine Mesylate 1 MG TABLET PO ×2 (11:32→21:20)
[2022-03-23] MEDS: Lithium Carbonate 300 MG CAPSULE PO ×2 (11:32→21:20)
[2022-03-23] MEDS: Prazosin HCL 1 MG CAPSULE 2 MG PO ×2 (11:33→21:20)
[2022-03-23] MEDS: cloZAPine 100 MG TABLET PO (11:33)
[2022-03-23 11:34] VITALS: BP 136/95; PULSE 88
[2022-03-23] MEDS: Desmopressin Acetate 0.2 MG TABLET PO ×2 (11:34→21:20)
[2022-03-23] MEDS: hydroCHLOROthiazide 25 MG TABLET PO (11:34)
--- NOTE | 2022-03-23 12:28 | P.PNPSI_ITS ---
Subjective Subjective Date of Service: 03/23/22 Reason For Visit: psychotic disorder Subjective Notes: Conditional Voluntary Interim History: The nursing staff reported that yesterday the patient was screaming them being incontinent with urine. On interview the patient was on her bed sleeping well and denies any new symptoms. The delinquency prevention social worker reported that she spoke with [facility] and they could take her if we have any agreement to take her back whenever she decompensates. Mental Status Exam Mental Status Exam Patient Appearance: Well Grooomed Patient Orientation: Person and Situation Level of Consciousness: Awake Patient Behavior: Guarded and Passive Mood Description: Suspicious Affect Description: Calm Patient Cognition Impaired: Yes Ability to Follow Directions: Good Speech Pattern: Clear Hallucinations: None Delusions: Paranoid Ideation Thought Process: Linear Thought Content: positive for Circumstantial Judgement: Fair Diagnostics Vital Signs (24Hr): Vital Signs - 24 hr 03/22/22 18:00 03/23/22 08:25 03/23/22 11:34 Temperature 98.4 F 97.2 F Pulse Rate 87 82 88 Respiratory Rate 16 Blood Pressure 112/60 110/56 L 136/95 H Pulse Oximetry 97 91 L Oxygen Delivery Method Room Air BMI result Body Mass Index 27.1 Labs Results: 01/22/22 08:07 02/20/22 19:35 Imaging Radiology Impressions: ITS Impressions Head CT 10/08/21 15:16 IMPRESSION: No acute intracranial pathology. Head CT 10/09/21 13:54 IMPRESSION: No acute intracranial pathology. Pelvic/Transvag US 10/13/21 09:24 IMPRESSION: Abnormally thickened endometrium for a postmenopausal patient measuring 0.9 cm. 3 x 2.7 x 3.7 cm mass in the posterior cervix. This may represent a fibroid. Slightly thickened trabeculated bladder wall. Head CT 10/20/21 08:18 IMPRESSION: No acute intracranial pathology. This critical result was discussed with Dr. Chu at 8:30 hours on 10/20/2021. It was ascertained that the content and urgency of the report was understood at the time of direct communication. Head CT 11/20/21 19:29 IMPRESSION: No acute intracranial pathology. Medications Medications Current Medications Acetaminophen (Acetaminophen 325 Mg Tablet) 650 mg PO Q6H PRN PRN Reason: Headache/Pain Mild Scale (1-3) Last Admin: 03/19/22 19:51 Dose: 650 mg Al Hydroxide/Mg Hydroxide (Magnesium Hydrox/Alum Hydrox 30 Ml Oral.Susp) 30 ml PO Q6H PRN PRN Reason: Heartburn/Nausea Apixaban (Apixaban 5 Mg Tablet) 5 mg PO BID [facility] Last Admin: 03/23/22 11:32 Dose: 5 mg Benztropine Mesylate (Benztropine Mesylate 1 Mg Tablet) 1 mg PO BID [facility] Last Admin: 03/23/22 11:32 Dose: 1 mg Bisacodyl (Bisacodyl 10 Mg Supp.Rect) 10 mg [place] DAILY PRN PRN Reason: Constipation Last Admin: 12/16/21 04:01 Dose: 10 mg Clozapine (Clozapine 100 Mg Tablet) 100 mg PO DAILY [facility] Last Admin: 03/23/22 11:33 Dose: 100 mg Clozapine (Clozapine 100 Mg Tablet) 300 mg PO BEDTIME [facility] Last Admin: 03/22/22 21:06 Dose: 300 mg Clozapine (Clozapine 100 Mg Tablet) 100 mg PO DAILY@1700 [facility] Last Admin: 03/22/22 15:58 Dose: 100 mg Desmopressin Acetate (Desmopressin Acetate 0.2 Mg Tablet) 0.2 mg PO BID [facility] Last Admin: 03/23/22 11:34 Dose: 0.2 mg Docusate Sodium (Docusate Sodium 100 Mg Capsule) 100 mg PO BID [facility] Last Admin: 03/23/22 11:32 Dose: 100 mg Haloperidol (Haloperidol 5 Mg Tablet) 5 mg PO BID [facility] Last Admin: 03/23/22 11:32 Dose: 5 mg Hydrochlorothiazide (Hydrochlorothiazide 25 Mg Tablet) 25 mg PO DAILY [facility]; Protocol Last Admin: 03/23/22 11:34 Dose: 25 mg Hydroxyzine HCl (Hydroxyzine Hcl 25 Mg Tablet) 25 mg PO BEDTIME PRN PRN Reason: Anxiety Last Admin: 03/15/22 21:16 Dose: 25 mg Hydroxyzine HCl (Hydroxyzine Hcl 25 Mg Tablet) 25 mg PO BID PRN PRN Reason: Anxiety Last Admin: 03/18/22 00:20 Dose: 25 mg [place] Carbonate ([place] Carbonate 300 Mg Capsule) 300 mg PO BID [facility] Last Admin: 03/23/22 11:32 Dose: 300 mg Loperamide HCl (Loperamide Hcl 2 Mg Capsule) 4 mg PO Q4H PRN PRN Reason: Diarrhea Last Admin: 11/01/21 17:04 Dose: 4 mg Magnesium Hydroxide (Milk Of Magnesia 30 Ml Oral.Susp) 30 ml PO DAILY PRN PRN Reason: Constipation Last Admin: 01/30/22 22:11 Dose: 30 ml Miconazole Nitrate (Miconazole Nitrate 2% Oint 57 Gm Oint...G.) 1 appl TOPICAL BID [facility]; Protocol Last Admin: 03/23/22 12:13 Dose: Not Given Mirtazapine (Mirtazapine 15 Mg Tablet) 15 mg PO BEDTIME [facility] Last Admin: 03/22/22 21:07 Dose: 15 mg Olanzapine (Olanzapine 10 Mg Vial) 10 mg IM TID PRN PRN Reason: refusal of PO Clozaril Last Admin: 03/21/22 11:08 Dose: 10 mg Polyethylene Glycol (Polyethylene Glycol 3350 17 Gm Powd.Pack) 17 gm PO BID [facility] Last Admin: 03/23/22 12:15 Dose: Not Given Prazosin HCl (Prazosin Hcl 1 Mg Capsule) 2 mg PO TID [facility]; Protocol Last Admin: 03/23/22 11:33 Dose: 2 mg Senna (Sennosides 8.6 Mg Tablet) 8.6 mg PO BEDTIME [facility] Last Admin: 03/22/22 21:06 Dose: 8.6 mg Trazodone HCl (Trazodone Hcl 50 Mg Tablet) 50 mg PO BEDTIME PRN PRN Reason: Insomnia Last Admin: 03/09/22 22:31 Dose: 50 mg Trolamine Salicylate/Aloe Vera (Trolamine Salicylate 10%/Aloe Cream 35.4 Gm) 1 appl TOPICAL TID PRN PRN Reason: neck pain Last Admin: 02/02/22 22:34 Dose: 1 appl Allergies Allergies Allergy/AdvReac Type Severity Reaction Status Date / Time No Known Allergies Allergy Unverified 05/01/20 19:42 [No Known Allergies*] Assessment & Plan Assessment & Plan (1) Schizophrenia, paranoid, chronic with acute exacerbation: Status: Acute Code(s): F20.0 - Paranoid schizophrenia (2) Hypertension: Status: Acute Code(s): I10 - Essential (primary) hypertension (3) Dementia: Status: Acute Code(s): F03.90 - Unspecified dementia without behavioral disturbance Plan Elderly female with a long history of schizoaffective disorder bipolar type who was admitted into the facility for exacerbation of psychosis and mood lability. The patient is on Clozaril and apparently she has not been fully compliant with treatment. 11/21 slipped, hit head on 11/20, head CT reviewed and unremarkable. We did a MOCA and she is technically demented at this moment Plan 1. The patient at this moment is on 3 psychotics, Clozaril , Haldol and Invega Sustenna. 2. Discontinue Haldol 5 mg IM if the patient refuses Clozaril and replace with Zyprexa. 3. Lower total Clozaril to 500 mg a day. We will not continue with Invega Sustenna sings there is no improvement with 3 antipsychotics. We will keep her on Clozaril and Haldol p.o.. 4. Waiting for placement 5. Keep prazosin up to 2 mg p.o. t.i.d. to target nightmares since her blood pressure is stable I spent __20____ minutes with the patient and/or on the patient floor today, greater than?50% of which was spent counseling/coordinating care. Reason for contiued inpatient stay Substantial Risk for: inability to function, rapid decompensation and med/psych decompensation
[2022-03-23] MEDS: OLANZapine 10 MG VIAL IM (17:10)
[2022-03-23 21:10] VITALS: BP 123/60; PULSE 93; RESP 17; TEMP 36.2; O2SAT 98
[2022-03-23] MEDS: cloZAPine 100 MG TABLET 300 MG PO (21:19)
[2022-03-23] MEDS: Sennosides 8.6 MG TABLET PO (21:21)
[2022-03-23] MEDS: Mirtazapine 15 MG TABLET PO (21:21)
[2022-03-24] MEDS: traZODone HCL 50 MG TABLET PO (02:13)
[2022-03-24 07:46] VITALS: BP 95/49; PULSE 80; RESP 16; TEMP 36; O2SAT 93
[2022-03-24] MEDS: polyethylene glycoL 3350 17 GM POWD.PACK PO ×2 (10:09→20:43)
[2022-03-24] MEDS: OLANZapine 10 MG VIAL IM (10:23)
--- NOTE | 2022-03-24 13:26 | P.PNPSI_ITS ---
Subjective Subjective Date of Service: 03/24/22 Reason For Visit: psychotic disorder Subjective Notes: Conditional Voluntary Interim History: The nursing staff reported the patient needed an a.m. since she refused Clozaril. Distally she took a shower and she was incontinent of stool. On interview the patient denies new symptoms she looks psychotic but easily r edirectable. Mental Status Exam Mental Status Exam Patient Appearance: Well Grooomed Patient Orientation: Person and Situation Level of Consciousness: Awake Patient Behavior: Cooperative Affect Description: Calm Patient Cognition Impaired: Yes Ability to Follow Directions: Good Speech Pattern: Clear Hallucinations: None Delusions: Paranoid Ideation Thought Process: Disoriented Thought Content: positive for Loose Associations Judgement: Fair Diagnostics Vital Signs (24Hr): Vital Signs - 24 hr 03/23/22 21:10 03/24/22 07:46 Temperature 97.2 F 96.8 F Pulse Rate 93 80 Respiratory Rate 17 16 Blood Pressure 123/60 95/49 L Pulse Oximetry 98 93 Oxygen Delivery Method Room Air Room Air BMI result Body Mass Index 27.1 Labs Results: 01/22/22 08:07 02/20/22 19:35 Imaging Radiology Impressions: ITS Impressions Head CT 10/08/21 15:16 IMPRESSION: No acute intracranial pathology. Head CT 10/09/21 13:54 IMPRESSION: No acute intracranial pathology. Pelvic/Transvag US 10/13/21 09:24 IMPRESSION: Abnormally thickened endometrium for a postmenopausal patient measuring 0.9 cm. 3 x 2.7 x 3.7 cm mass in the posterior cervix. This may represent a fibroid. Slightly thickened trabeculated bladder wall. Head CT 10/20/21 08:18 IMPRESSION: No acute intracranial pathology. This critical result was discussed with Dr. Chu at 8:30 hours on 10/20/2021. It was ascertained that the content and urgency of the report was understood at the time of direct communication. Head CT 11/20/21 19:29 IMPRESSION: No acute intracranial pathology. Medications Medications Current Medications Acetaminophen (Acetaminophen 325 Mg Tablet) 650 mg PO Q6H PRN PRN Reason: Headache/Pain Mild Scale (1-3) Last Admin: 03/19/22 19:51 Dose: 650 mg Al Hydroxide/Mg Hydroxide (Magnesium Hydrox/Alum Hydrox 30 Ml Oral.Susp) 30 ml PO Q6H PRN PRN Reason: Heartburn/Nausea Apixaban (Apixaban 5 Mg Tablet) 5 mg PO BID [facility] Last Admin: 03/24/22 10:27 Dose: Not Given Benztropine Mesylate (Benztropine Mesylate 1 Mg Tablet) 1 mg PO BID [facility] Last Admin: 03/24/22 10:28 Dose: Not Given Bisacodyl (Bisacodyl 10 Mg Supp.Rect) 10 mg [place] DAILY PRN PRN Reason: Constipation Last Admin: 12/16/21 04:01 Dose: 10 mg Clozapine (Clozapine 100 Mg Tablet) 100 mg PO DAILY [facility] Last Admin: 03/24/22 10:28 Dose: Not Given Clozapine (Clozapine 100 Mg Tablet) 300 mg PO BEDTIME [facility] Last Admin: 03/23/22 21:19 Dose: 300 mg Clozapine (Clozapine 100 Mg Tablet) 100 mg PO DAILY@1700 [facility] Last Admin: 03/23/22 17:12 Dose: Not Given Desmopressin Acetate (Desmopressin Acetate 0.2 Mg Tablet) 0.2 mg PO BID [facility] Last Admin: 03/24/22 10:28 Dose: Not Given Docusate Sodium (Docusate Sodium 100 Mg Capsule) 100 mg PO BID [facility] Last Admin: 03/24/22 10:28 Dose: Not Given Haloperidol (Haloperidol 5 Mg Tablet) 5 mg PO BID [facility] Last Admin: 03/24/22 10:29 Dose: Not Given Hydrochlorothiazide (Hydrochlorothiazide 25 Mg Tablet) 25 mg PO DAILY [facility]; Protocol Last Admin: 03/24/22 10:29 Dose: Not Given Hydroxyzine HCl (Hydroxyzine Hcl 25 Mg Tablet) 25 mg PO BEDTIME PRN PRN Reason: Anxiety Last Admin: 03/15/22 21:16 Dose: 25 mg Hydroxyzine HCl (Hydroxyzine Hcl 25 Mg Tablet) 25 mg PO BID PRN PRN Reason: Anxiety Last Admin: 03/18/22 00:20 Dose: 25 mg [place] Carbonate (Moore Carbonate 300 Mg Capsule) 300 mg PO BID [facility] Last Admin: 03/24/22 10:29 Dose: Not Given Loperamide HCl (Loperamide Hcl 2 Mg Capsule) 4 mg PO Q4H PRN PRN Reason: Diarrhea Last Admin: 11/01/21 17:04 Dose: 4 mg Magnesium Hydroxide (Milk Of Magnesia 30 Ml Oral.Susp) 30 ml PO DAILY PRN PRN Reason: Constipation Last Admin: 01/30/22 22:11 Dose: 30 ml Miconazole Nitrate (Miconazole Nitrate 2% Oint 57 Gm Oint...G.) 1 appl TOPICAL BID [facility]; Protocol Last Admin: 03/24/22 10:19 Dose: Not Given Mirtazapine (Mirtazapine 15 Mg Tablet) 15 mg PO BEDTIME [facility] Last Admin: 03/23/22 21:21 Dose: 15 mg Olanzapine (Olanzapine 10 Mg Vial) 10 mg IM TID PRN PRN Reason: refusal of PO Clozaril Last Admin: 03/24/22 10:23 Dose: 10 mg Polyethylene Glycol (Polyethylene Glycol 3350 17 Gm Powd.Pack) 17 gm PO BID [facility] Last Admin: 03/24/22 10:09 Dose: 17 gm Prazosin HCl (Prazosin Hcl 1 Mg Capsule) 2 mg PO TID [facility]; Protocol Last Admin: 03/24/22 10:30 Dose: Not Given Senna (Sennosides 8.6 Mg Tablet) 8.6 mg PO BEDTIME [facility] Last Admin: 03/23/22 21:21 Dose: 8.6 mg Trazodone HCl (Trazodone Hcl 50 Mg Tablet) 50 mg PO BEDTIME PRN PRN Reason: Insomnia Last Admin: 03/24/22 02:13 Dose: 50 mg Trolamine Salicylate/Aloe Vera (Trolamine Salicylate 10%/Aloe Cream 35.4 Gm) 1 appl TOPICAL TID PRN PRN Reason: neck pain Last Admin: 02/02/22 22:34 Dose: 1 appl Allergies Allergies Allergy/AdvReac Type Severity Reaction Status Date / Time No Known Allergies Allergy Unverified 05/01/20 19:42 [No Known Allergies*] Assessment & Plan Assessment & Plan (1) Schizophrenia, paranoid, chronic with acute exacerbation: Status: Acute Code(s): F20.0 - Paranoid schizophrenia (2) Hypertension: Status: Acute Code(s): I10 - Essential (primary) hypertension (3) Dementia: Status: Acute Code(s): F03.90 - Unspecified dementia without behavioral disturbance Plan Elderly female with a long history of schizoaffective disorder bipolar type who was admitted into the facility for exacerbation of psychosis and mood lability. The patient is on Clozaril and apparently she has not been fully compliant with treatment. 4/9 slipped, hit head on 11/20, head CT reviewed and unremarkable. We did a MOCA and she is technically demented at this moment Plan 1. The patient at this moment is on 3 psychotics, Clozaril , Haldol and Invega Sustenna. 2. Discontinue Haldol 5 mg IM if the patient refuses Clozaril and replace with Zyprexa. 3. Lower total Clozaril to 500 mg a day. We will not continue with Invega Sustenna sings there is no improvement with 3 antipsychotics. We will keep her on Clozaril and Haldol p.o.. 4. Waiting for placement 5. Keep prazosin up to 2 mg p.o. t.i.d. to target nightmares since her blood pressure is stable I spent __20____ minutes with the patient and/or on the patient floor today, greater than?50% of which was spent counseling/coordinating care. Reason for contiued inpatient stay Substantial Risk for: inability to function, rapid decompensation and med/psych decompensation
[2022-03-24] MEDS: Prazosin HCL 1 MG CAPSULE 2 MG PO ×2 (15:27→20:40)
[2022-03-24] MEDS: cloZAPine 100 MG TABLET PO (16:21)
[2022-03-24 18:00] VITALS: BP 91/53; PULSE 88; RESP 16; TEMP 36.6; O2SAT 98
[2022-03-24] MEDS: cloZAPine 100 MG TABLET 300 MG PO (20:35)
[2022-03-24] MEDS: Lithium Carbonate 300 MG CAPSULE PO (20:36)
[2022-03-24] MEDS: Benztropine Mesylate 1 MG TABLET PO (20:36)
[2022-03-24] MEDS: Desmopressin Acetate 0.2 MG TABLET PO (20:36)
[2022-03-24] MEDS: Docusate Sodium 100 MG CAPSULE PO (20:37)
[2022-03-24] MEDS: HaloperidoL 5 MG TABLET PO (20:37)
[2022-03-24] MEDS: Apixaban 5 MG TABLET PO (20:37)
[2022-03-24] MEDS: Sennosides 8.6 MG TABLET PO (20:38)
[2022-03-24] MEDS: Mirtazapine 15 MG TABLET PO (20:43)
[2022-03-25 07:35] VITALS: BP 115/60; PULSE 87; RESP 16; TEMP 36.6; O2SAT 94
[2022-03-25] MEDS: cloZAPine 100 MG TABLET PO ×2 (10:35→18:33)
[2022-03-25] MEDS: Apixaban 5 MG TABLET PO (10:35)
[2022-03-25] MEDS: Prazosin HCL 1 MG CAPSULE 2 MG PO (10:35)
[2022-03-25] MEDS: hydroCHLOROthiazide 25 MG TABLET PO (10:35)
[2022-03-25] MEDS: Benztropine Mesylate 1 MG TABLET PO (10:36)
[2022-03-25] MEDS: Lithium Carbonate 300 MG CAPSULE PO (10:36)
[2022-03-25] MEDS: HaloperidoL 5 MG TABLET PO (10:36)
[2022-03-25] MEDS: Desmopressin Acetate 0.2 MG TABLET PO (10:36)
[2022-03-25] MEDS: Docusate Sodium 100 MG CAPSULE PO (10:36)
[2022-03-25] MEDS: polyethylene glycoL 3350 17 GM POWD.PACK PO (10:37)
--- NOTE | 2022-03-25 13:12 | HO.PSYCHPN ---
Subjective Subjective Date of Service: 03/25/22 Reason For Visit: psychotic disorder Subjective Notes: Conditional Voluntary Interim History: The nursing staff reported that she receive intramuscular Zyprexa since she refused medications in the morning. She had been irritable with poor sleep. Later on she was compliant with medications in the evening. On interview the patient states that she is not feeling good she looks over-sedated. I encouraged her for full compliance with Clozaril and other medications Mental Status Exam Mental Status Exam Patient Appearance: Well Grooomed Patient Orientation: Person and Situation Level of Consciousness: Awake Patient Behavior: Cooperative Mood Description: Withdrawn Affect Description: Labile Patient Cognition Impaired: Yes Ability to Follow Directions: Good Speech Pattern: Clear Hallucinations: Auditory Delusions: Paranoid Ideation Thought Process: Distracted Thought Content: positive for [place] and positive for Poverty of Content Judgement: Fair Diagnostics Vital Signs (24Hr): Vital Signs - 24 hr 03/24/22 18:00 03/25/22 07:35 Temperature 97.8 F 97.9 F Pulse Rate 88 87 Respiratory Rate 16 16 Blood Pressure 91/53 L 115/60 Pulse Oximetry 98 94 Oxygen Delivery Method Room Air Room Air BMI result Body Mass Index 27.1 Labs Results: 01/22/22 08:07 02/20/22 19:35 Imaging Radiology Impressions: ITS Impressions Head CT 10/08/21 15:16 IMPRESSION: No acute intracranial pathology. Head CT 10/09/21 13:54 IMPRESSION: No acute intracranial pathology. Pelvic/Transvag US 10/13/21 09:24 IMPRESSION: Abnormally thickened endometrium for a postmenopausal patient measuring 0.9 cm. 3 x 2.7 x 3.7 cm mass in the posterior cervix. This may represent a fibroid. Slightly thickened trabeculated bladder wall. Head CT 10/20/21 08:18 IMPRESSION: No acute intracranial pathology. This critical result was discussed with Dr. Chu at 8:30 hours on 10/20/2021. It was ascertained that the content and urgency of the report was understood at the time of direct communication. Head CT 11/20/21 19:29 IMPRESSION: No acute intracranial pathology. Medications Medications Current Medications Acetaminophen (Acetaminophen 325 Mg Tablet) 650 mg PO Q6H PRN PRN Reason: Headache/Pain Mild Scale (1-3) Last Admin: 03/19/22 19:51 Dose: 650 mg Al Hydroxide/Mg Hydroxide (Magnesium Hydrox/Alum Hydrox 30 Ml Oral.Susp) 30 ml PO Q6H PRN PRN Reason: Heartburn/Nausea Apixaban (Apixaban 5 Mg Tablet) 5 mg PO BID [facility] [place] Last Admin: 03/25/22 10:35 Dose: 5 mg Benztropine Mesylate (Benztropine Mesylate 1 Mg Tablet) 1 mg PO BID [facility] [place] Last Admin: 03/25/22 10:36 Dose: 1 mg Bisacodyl (Bisacodyl 10 Mg Supp.Rect) 10 mg [place] DAILY PRN PRN Reason: Constipation Last Admin: 12/16/21 04:01 Dose: 10 mg Clozapine (Clozapine 100 Mg Tablet) 100 mg PO DAILY [facility] [place] Last Admin: 03/25/22 10:35 Dose: 100 mg Clozapine (Clozapine 100 Mg Tablet) 300 mg PO BEDTIME [facility] [place] Last Admin: 03/24/22 20:35 Dose: 300 mg Clozapine (Clozapine 100 Mg Tablet) 100 mg PO DAILY@1700 [facility] [place] Last Admin: 03/24/22 16:21 Dose: 100 mg Desmopressin Acetate (Desmopressin Acetate 0.2 Mg Tablet) 0.2 mg PO BID [facility] [place] Last Admin: 03/25/22 10:36 Dose: 0.2 mg Docusate Sodium (Docusate Sodium 100 Mg Capsule) 100 mg PO BID [facility] [place] Last Admin: 03/25/22 10:36 Dose: 100 mg Haloperidol (Haloperidol 5 Mg Tablet) 5 mg PO BID [facility] [place] Last Admin: 03/25/22 10:36 Dose: 5 mg Hydrochlorothiazide (Hydrochlorothiazide 25 Mg Tablet) 25 mg PO DAILY [facility] [place]; Protocol Last Admin: 03/25/22 10:35 Dose: 25 mg Hydroxyzine HCl (Hydroxyzine Hcl 25 Mg Tablet) 25 mg PO BEDTIME PRN PRN Reason: Anxiety Last Admin: 03/15/22 21:16 Dose: 25 mg Hydroxyzine HCl (Hydroxyzine Hcl 25 Mg Tablet) 25 mg PO BID PRN PRN Reason: Anxiety Last Admin: 03/18/22 00:20 Dose: 25 mg [place] Carbonate ([place] Carbonate 300 Mg Capsule) 300 mg PO BID [facility] [place] Last Admin: 03/25/22 10:36 Dose: 300 mg Loperamide HCl (Loperamide Hcl 2 Mg Capsule) 4 mg PO Q4H PRN PRN Reason: Diarrhea Last Admin: 11/01/21 17:04 Dose: 4 mg Magnesium Hydroxide (Milk Of Magnesia 30 Ml Oral.Susp) 30 ml PO DAILY PRN PRN Reason: Constipation Last Admin: 01/30/22 22:11 Dose: 30 ml Miconazole Nitrate (Miconazole Nitrate 2% Oint 57 Gm Oint...G.) 1 appl TOPICAL BID [facility]; Protocol Last Admin: 03/25/22 10:47 Dose: Not Given Mirtazapine (Mirtazapine 15 Mg Tablet) 15 mg PO BEDTIME [facility] Last Admin: 03/24/22 20:43 Dose: 15 mg Olanzapine (Olanzapine 10 Mg Vial) 10 mg IM TID PRN PRN Reason: refusal of PO Clozaril Last Admin: 03/24/22 10:23 Dose: 10 mg Polyethylene Glycol (Polyethylene Glycol 3350 17 Gm Powd.Pack) 17 gm PO BID [facility] Last Admin: 03/25/22 10:37 Dose: 17 gm Prazosin HCl (Prazosin Hcl 1 Mg Capsule) 2 mg PO TID [facility]; Protocol Last Admin: 03/25/22 10:35 Dose: 2 mg Senna (Sennosides 8.6 Mg Tablet) 8.6 mg PO BEDTIME [facility] Last Admin: 03/24/22 20:38 Dose: 8.6 mg Trazodone HCl (Trazodone Hcl 50 Mg Tablet) 50 mg PO BEDTIME PRN PRN Reason: Insomnia Last Admin: 03/24/22 02:13 Dose: 50 mg Trolamine Salicylate/Aloe Vera (Trolamine Salicylate 10%/Aloe Cream 35.4 Gm) 1 appl TOPICAL TID PRN PRN Reason: neck pain Last Admin: 02/02/22 22:34 Dose: 1 appl Allergies Allergies Allergy/AdvReac Type Severity Reaction Status Date / Time No Known Allergies Allergy Unverified 05/01/20 19:42 [No Known Allergies*] Assessment & Plan Assessment & Plan (1) Schizophrenia, paranoid, chronic with acute exacerbation: Status: Acute Code(s): F20.0 - Paranoid schizophrenia (2) Hypertension: Status: Acute Code(s): I10 - Essential (primary) hypertension (3) Dementia: Status: Acute Code(s): F03.90 - Unspecified dementia without behavioral disturbance Plan Elderly female with a long history of schizoaffective disorder bipolar type who was admitted into the facility for exacerbation of psychosis and mood lability. The patient is on Clozaril and apparently she has not been fully compliant with treatment. 11/21 slipped, hit head on 11/20, head CT reviewed and unremarkable. We did a MOCA and she is technically demented at this moment Plan 1. The patient at this moment is on 3 psychotics, Clozaril , Haldol and Invega Sustenna. 2. Discontinue Haldol 5 mg IM if the patient refuses Clozaril and replace with Zyprexa. 3. Lower total Clozaril to 500 mg a day. We will not continue with Invega Sustenna sings there is no improvement with 3 antipsychotics. We will keep her on Clozaril and Haldol p.o.. 4. Waiting for placement 5. Keep prazosin up to 2 mg p.o. t.i.d. to target nightmares since her blood pressure is stable I spent ____20__ minutes with the patient and/or on the patient floor today, greater than?50% of which was spent counseling/coordinating care. Reason for contiued inpatient stay Substantial Risk for: inability to function, rapid decompensation and med/psych decompensation
[2022-03-25 19:30] VITALS: BP 114/56; PULSE 92; TEMP 36.7
[2022-03-25] MEDS: OLANZapine 10 MG VIAL IM (21:35)
[2022-03-26] MEDS: cloZAPine 100 MG TABLET PO ×2 (10:13→16:09)
[2022-03-26] MEDS: Prazosin HCL 1 MG CAPSULE 2 MG PO ×3 (10:13→20:34)
[2022-03-26] MEDS: Desmopressin Acetate 0.2 MG TABLET PO ×2 (10:14→20:34)
[2022-03-26] MEDS: Lithium Carbonate 300 MG CAPSULE PO ×2 (10:14→20:34)
[2022-03-26] MEDS: HaloperidoL 5 MG TABLET PO ×2 (10:14→20:34)
[2022-03-26 10:15] VITALS: BP 99/50; PULSE 78; RESP 18; TEMP 36.6; O2SAT 95
[2022-03-26] MEDS: Apixaban 5 MG TABLET PO ×2 (10:15→20:34)
[2022-03-26] MEDS: hydroCHLOROthiazide 25 MG TABLET PO (10:15)
[2022-03-26] MEDS: Docusate Sodium 100 MG CAPSULE PO ×2 (10:15→20:34)
[2022-03-26] MEDS: Benztropine Mesylate 1 MG TABLET PO ×2 (10:15→20:34)
[2022-03-26] MEDS: polyethylene glycoL 3350 17 GM POWD.PACK PO ×2 (10:20→20:36)
[2022-03-26 12:52] LABS: Neut%MD 76.4 %; Neutrophils Absolute Auto 5.6 x10*3/uL (2.0-8.3); WBCANC 7.3 X10*3/uL
[2022-03-26 14:22] VITALS: BMI 27.3
--- NOTE | 2022-03-26 16:50 | HO.PSYCHPN ---
Subjective Subjective Date of Service: 03/26/22 Reason For Visit: psychotic disorder Interim History: PATIENT WITH PERIODS OF PARANOIA FRUSTRATED LONG DISCHARGE PLANNING WITH DIFFICULTY WITH PLACEMENT Mental Status Exam Mental Status Exam Patient Appearance: Well Grooomed Patient Orientation: Person and Situation Level of Consciousness: Awake Patient Behavior: Cooperative Mood Description: Withdrawn Affect Description: Labile Patient Cognition Impaired: Yes Ability to Follow Directions: Good Speech Pattern: Clear Hallucinations: Auditory Delusions: Paranoid Ideation Thought Process: Distracted Thought Content: positive for [place] and positive for Poverty of Content Judgement: Fair Diagnostics Vital Signs (24Hr): Vital Signs - 24 hr 03/25/22 19:30 03/26/22 10:15 Temperature 98.1 F 97.8 F Pulse Rate 92 78 Respiratory Rate 18 Blood Pressure 114/56 L 99/50 L Pulse Oximetry 95 Oxygen Delivery Method Room Air BMI result Body Mass Index 27.3 Labs Results: 01/22/22 08:07 02/20/22 19:35 Labs: Laboratory Results - last 48 hr 03/26/22 12:44 Absolute Neuts (auto) 5.6 Imaging Radiology Impressions: ITS Impressions Head CT 10/08/21 15:16 IMPRESSION: No acute intracranial pathology. Head CT 10/09/21 13:54 IMPRESSION: No acute intracranial pathology. Pelvic/Transvag US 10/13/21 09:24 IMPRESSION: Abnormally thickened endometrium for a postmenopausal patient measuring 0.9 cm. 3 x 2.7 x 3.7 cm mass in the posterior cervix. This may represent a fibroid. Slightly thickened trabeculated bladder wall. Head CT 10/20/21 08:18 IMPRESSION: No acute intracranial pathology. This critical result was discussed with Dr. Chu at 8:30 hours on 10/20/2021. It was ascertained that the content and urgency of the report was understood at the time of direct communication. Head CT 11/20/21 19:29 IMPRESSION: No acute intracranial pathology. Medications Medications Current Medications Acetaminophen (Acetaminophen 325 Mg Tablet) 650 mg PO Q6H PRN PRN Reason: Headache/Pain Mild Scale (1-3) Last Admin: 03/19/22 19:51 Dose: 650 mg Al Hydroxide/Mg Hydroxide (Magnesium Hydrox/Alum Hydrox 30 Ml Oral.Susp) 30 ml PO Q6H PRN PRN Reason: Heartburn/Nausea Apixaban (Apixaban 5 Mg Tablet) 5 mg PO BID [facility] Last Admin: 03/26/22 10:15 Dose: 5 mg Benztropine Mesylate (Benztropine Mesylate 1 Mg Tablet) 1 mg PO BID [facility] Last Admin: 03/26/22 10:15 Dose: 1 mg Bisacodyl (Bisacodyl 10 Mg Supp.Rect) 10 mg [place] DAILY PRN PRN Reason: Constipation Last Admin: 12/16/21 04:01 Dose: 10 mg Clozapine (Clozapine 100 Mg Tablet) 100 mg PO DAILY [facility] Last Admin: 03/26/22 10:13 Dose: 100 mg Clozapine (Clozapine 100 Mg Tablet) 300 mg PO BEDTIME [facility] Last Admin: 03/25/22 21:45 Dose: Not Given Clozapine (Clozapine 100 Mg Tablet) 100 mg PO DAILY@1700 [facility] Last Admin: 03/26/22 16:09 Dose: 100 mg Desmopressin Acetate (Desmopressin Acetate 0.2 Mg Tablet) 0.2 mg PO BID [facility] Last Admin: 03/26/22 10:14 Dose: 0.2 mg Docusate Sodium (Docusate Sodium 100 Mg Capsule) 100 mg PO BID [facility] Last Admin: 03/26/22 10:15 Dose: 100 mg Haloperidol (Haloperidol 5 Mg Tablet) 5 mg PO BID [facility] Last Admin: 03/26/22 10:14 Dose: 5 mg Hydrochlorothiazide (Hydrochlorothiazide 25 Mg Tablet) 25 mg PO DAILY [facility]; Protocol Last Admin: 03/26/22 10:15 Dose: 25 mg Hydroxyzine HCl (Hydroxyzine Hcl 25 Mg Tablet) 25 mg PO BEDTIME PRN PRN Reason: Anxiety Last Admin: 03/15/22 21:16 Dose: 25 mg Hydroxyzine HCl (Hydroxyzine Hcl 25 Mg Tablet) 25 mg PO BID PRN PRN Reason: Anxiety Last Admin: 03/18/22 00:20 Dose: 25 mg [place] Carbonate ([place] Carbonate 300 Mg Capsule) 300 mg PO BID [facility] Last Admin: 03/26/22 10:14 Dose: 300 mg Loperamide HCl (Loperamide Hcl 2 Mg Capsule) 4 mg PO Q4H PRN PRN Reason: Diarrhea Last Admin: 11/01/21 17:04 Dose: 4 mg Magnesium Hydroxide (Milk Of Magnesia 30 Ml Oral.Susp) 30 ml PO DAILY PRN PRN Reason: Constipation Last Admin: 01/30/22 22:11 Dose: 30 ml Miconazole Nitrate (Miconazole Nitrate 2% Oint 57 Gm Oint...G.) 1 appl TOPICAL BID [facility]; Protocol Last Admin: 03/26/22 10:21 Dose: Not Given Mirtazapine (Mirtazapine 15 Mg Tablet) 15 mg PO BEDTIME [facility] Last Admin: 03/25/22 21:46 Dose: Not Given Olanzapine (Olanzapine 10 Mg Vial) 10 mg IM TID PRN PRN Reason: refusal of PO Clozaril Last Admin: 03/25/22 21:35 Dose: 10 mg Polyethylene Glycol (Polyethylene Glycol 3350 17 Gm Powd.Pack) 17 gm PO BID [facility] Last Admin: 03/26/22 10:20 Dose: 17 gm Prazosin HCl (Prazosin Hcl 1 Mg Capsule) 2 mg PO TID [facility]; Protocol Last Admin: 03/26/22 14:43 Dose: 2 mg Senna (Sennosides 8.6 Mg Tablet) 8.6 mg PO BEDTIME [facility] Last Admin: 03/25/22 21:46 Dose: Not Given Trazodone HCl (Trazodone Hcl 50 Mg Tablet) 50 mg PO BEDTIME PRN PRN Reason: Insomnia Last Admin: 03/24/22 02:13 Dose: 50 mg Trolamine Salicylate/Aloe Vera (Trolamine Salicylate 10%/Aloe Cream 35.4 Gm) 1 appl TOPICAL TID PRN PRN Reason: neck pain Last Admin: 02/02/22 22:34 Dose: 1 appl Allergies Allergies Allergy/AdvReac Type Severity Reaction Status Date / Time No Known Allergies Allergy Unverified 05/01/20 19:42 [No Known Allergies*] Assessment & Plan Assessment & Plan (1) Schizophrenia, paranoid, chronic with acute exacerbation: Status: Acute Code(s): F20.0 - Paranoid schizophrenia (2) Hypertension: Status: Acute Code(s): I10 - Essential (primary) hypertension (3) Dementia: Status: Acute Code(s): F03.90 - Unspecified dementia without behavioral disturbance Plan Elderly female with a long history of schizoaffective disorder bipolar type who was admitted into the facility for exacerbation of psychosis and mood lability. The patient is on Clozaril and apparently she has not been fully compliant with treatment. 11/21 slipped, hit head on 11/20, head CT reviewed and unremarkable. We did a MOCA and she is technically demented at this moment Plan 1. The patient at this moment is on 3 psychotics, Clozaril , Haldol and Invega Sustenna. 2. Discontinue Haldol 5 mg IM if the patient refuses Clozaril and replace with Zyprexa. 3. Lower total Clozaril to 500 mg a day. We will not continue with Invega Sustenna sings there is no improvement with 3 antipsychotics. We will keep her on Clozaril and Haldol p.o.. 4. Waiting for placement 5. Keep prazosin up to 2 mg p.o. t.i.d. to target nightmares since her blood pressure is stable CONTINUE PLAN OF CARE DISCHARGE PLANNING I spent minutes with the patient and/or on the patient floor today, greater than?50% of which was spent counseling/coordinating care. Reason for contiued inpatient stay Substantial Risk for: harm to self and rapid decompensation
[2022-03-26 18:00] VITALS: BP 134/67; PULSE 92; RESP 20; TEMP 35.9; O2SAT 98
[2022-03-26] MEDS: cloZAPine 100 MG TABLET 300 MG PO (20:33)
[2022-03-26] MEDS: Sennosides 8.6 MG TABLET PO (20:34)
[2022-03-26] MEDS: Mirtazapine 15 MG TABLET PO (20:34)
[2022-03-26] MEDS: traZODone HCL 50 MG TABLET PO ×2 (22:36→23:57)
[2022-03-27 06:00] VITALS: BP 97/52; PULSE 83; RESP 16; TEMP 36.3; O2SAT 96
[2022-03-27] MEDS: Benztropine Mesylate 1 MG TABLET PO ×2 (12:03→20:00)
[2022-03-27] MEDS: Desmopressin Acetate 0.2 MG TABLET PO ×2 (12:03→19:59)
[2022-03-27] MEDS: Prazosin HCL 1 MG CAPSULE 2 MG PO ×3 (12:03→19:59)
[2022-03-27] MEDS: Docusate Sodium 100 MG CAPSULE PO ×2 (12:03→20:00)
[2022-03-27] MEDS: Lithium Carbonate 300 MG CAPSULE PO ×2 (12:04→19:59)
[2022-03-27] MEDS: HaloperidoL 5 MG TABLET PO ×2 (12:04→20:00)
[2022-03-27] MEDS: polyethylene glycoL 3350 17 GM POWD.PACK PO ×2 (12:04→20:01)
[2022-03-27] MEDS: Apixaban 5 MG TABLET PO ×2 (12:04→20:00)
[2022-03-27] MEDS: hydroCHLOROthiazide 25 MG TABLET PO (12:04)
[2022-03-27] MEDS: cloZAPine 100 MG TABLET PO ×2 (12:04→18:01)
[2022-03-27 15:00] VITALS: BP 103/56; PULSE 90
--- NOTE | 2022-03-27 17:45 | HO.PSYCHPN ---
Subjective Subjective Date of Service: 03/27/22 Reason For Visit: psychotic disorder Interim History: pt took medications she says she's not great and that her toe hurts; nursing looked at toe and reports pt has corns, but no other visible problem Mental Status Exam Mental Status Exam Patient Appearance: Unkempt Patient Orientation: Person Level of Consciousness: Awake Patient Behavior: Cooperative Mood Description: Withdrawn Affect Description: Labile Patient Cognition Impaired: Yes Ability to Follow Directions: Good Speech Pattern: Clear Hallucinations: Auditory Delusions: Paranoid Ideation Thought Process: Distracted Thought Content: positive for [place] and positive for [place] of Content Judgement: Fair Diagnostics Vital Signs (24Hr): Vital Signs - 24 hr 03/26/22 18:00 03/27/22 06:00 03/27/22 15:00 Temperature 96.7 F L 97.4 F Pulse Rate 92 83 90 Respiratory Rate 20 16 Blood Pressure 134/67 97/52 L 103/56 L Pulse Oximetry 98 96 Oxygen Delivery Method Room Air Room Air BMI result Body Mass Index 27.3 Labs Results: 01/22/22 08:07 03/30/22 08:03 Labs: Laboratory Results - last 48 hr 03/26/22 12:44 Absolute Neuts (auto) 5.6 Imaging Radiology Impressions: ITS Impressions Head CT 10/08/21 15:16 IMPRESSION: No acute intracranial pathology. Head CT 10/09/21 13:54 IMPRESSION: No acute intracranial pathology. Pelvic/Transvag US 10/13/21 09:24 IMPRESSION: Abnormally thickened endometrium for a postmenopausal patient measuring 0.9 cm. 3 x 2.7 x 3.7 cm mass in the posterior cervix. This may represent a fibroid. Slightly thickened trabeculated bladder wall. Head CT 10/20/21 08:18 IMPRESSION: No acute intracranial pathology. This critical result was discussed with Dr. Chu at 8:30 hours on 10/20/2021. It was ascertained that the content and urgency of the report was understood at the time of direct communication. Head CT 11/20/21 19:29 IMPRESSION: No acute intracranial pathology. Medications Medications Current Medications Acetaminophen (Acetaminophen 325 Mg Tablet) 650 mg PO Q6H PRN PRN Reason: Headache/Pain Mild Scale (1-3) Last Admin: 03/19/22 19:51 Dose: 650 mg Al Hydroxide/Mg Hydroxide (Magnesium Hydrox/Alum Hydrox 30 Ml Oral.Susp) 30 ml PO Q6H PRN PRN Reason: Heartburn/Nausea Apixaban (Apixaban 5 Mg Tablet) 5 mg PO BID [facility] Last Admin: 03/27/22 12:04 Dose: 5 mg Benztropine Mesylate (Benztropine Mesylate 1 Mg Tablet) 1 mg PO BID [facility] Last Admin: 03/27/22 12:03 Dose: 1 mg Bisacodyl (Bisacodyl 10 Mg Supp.Rect) 10 mg [place] DAILY PRN PRN Reason: Constipation Last Admin: 12/16/21 04:01 Dose: 10 mg Clozapine (Clozapine 100 Mg Tablet) 100 mg PO DAILY [facility] Last Admin: 03/27/22 12:04 Dose: 100 mg Clozapine (Clozapine 100 Mg Tablet) 300 mg PO BEDTIME [facility] Last Admin: 03/26/22 20:33 Dose: 300 mg Clozapine (Clozapine 100 Mg Tablet) 100 mg PO DAILY@1700 [facility] Last Admin: 03/26/22 16:09 Dose: 100 mg Desmopressin Acetate (Desmopressin Acetate 0.2 Mg Tablet) 0.2 mg PO BID [facility] Last Admin: 03/27/22 12:03 Dose: 0.2 mg Docusate Sodium (Docusate Sodium 100 Mg Capsule) 100 mg PO BID [facility] Last Admin: 03/27/22 12:03 Dose: 100 mg Haloperidol (Haloperidol 5 Mg Tablet) 5 mg PO BID [facility] Last Admin: 03/27/22 12:04 Dose: 5 mg Hydrochlorothiazide (Hydrochlorothiazide 25 Mg Tablet) 25 mg PO DAILY [facility]; Protocol Last Admin: 03/27/22 12:04 Dose: 25 mg Hydroxyzine HCl (Hydroxyzine Hcl 25 Mg Tablet) 25 mg PO BEDTIME PRN PRN Reason: Anxiety Last Admin: 03/15/22 21:16 Dose: 25 mg Hydroxyzine HCl (Hydroxyzine Hcl 25 Mg Tablet) 25 mg PO BID PRN PRN Reason: Anxiety Last Admin: 03/18/22 00:20 Dose: 25 mg [place] Carbonate (C[place] Carbonate 300 Mg Capsule) 300 mg PO BID [facility] Last Admin: 03/27/22 12:04 Dose: 300 mg Loperamide HCl (Loperamide Hcl 2 Mg Capsule) 4 mg PO Q4H PRN PRN Reason: Diarrhea Last Admin: 11/01/21 17:04 Dose: 4 mg Magnesium Hydroxide (Milk Of Magnesia 30 Ml Oral.Susp) 30 ml PO DAILY PRN PRN Reason: Constipation Last Admin: 01/30/22 22:11 Dose: 30 ml Miconazole Nitrate (Miconazole Nitrate 2% Oint 57 Gm Oint...G.) 1 appl TOPICAL BID [facility]; Protocol Last Admin: 03/27/22 13:05 Dose: Not Given Mirtazapine (Mirtazapine 15 Mg Tablet) 15 mg PO BEDTIME [facility] Last Admin: 03/26/22 20:34 Dose: 15 mg Olanzapine (Olanzapine 10 Mg Vial) 10 mg IM TID PRN PRN Reason: refusal of PO Clozaril Last Admin: 03/25/22 21:35 Dose: 10 mg Polyethylene Glycol (Polyethylene Glycol 3350 17 Gm Powd.Pack) 17 gm PO BID [facility] Last Admin: 03/27/22 12:04 Dose: 17 gm Prazosin HCl (Prazosin Hcl 1 Mg Capsule) 2 mg PO TID [facility]; Protocol Last Admin: 03/27/22 15:07 Dose: 2 mg Senna (Sennosides 8.6 Mg Tablet) 8.6 mg PO BEDTIME [facility] Last Admin: 03/26/22 20:34 Dose: 8.6 mg Trazodone HCl (Trazodone Hcl 50 Mg Tablet) 50 mg PO BEDTIME PRN PRN Reason: Insomnia Last Admin: 03/26/22 23:57 Dose: 50 mg Trolamine Salicylate/Aloe Vera (Trolamine Salicylate 10%/Aloe Cream 35.4 Gm) 1 appl TOPICAL TID PRN PRN Reason: neck pain Last Admin: 02/02/22 22:34 Dose: 1 appl Allergies Allergies Allergy/AdvReac Type Severity Reaction Status Date / Time No Known Allergies Allergy Unverified 05/01/20 19:42 [No Known Allergies*] Assessment & Plan Assessment & Plan (1) Schizophrenia, paranoid, chronic with acute exacerbation: Status: Acute Code(s): F20.0 - Paranoid schizophrenia (2) Hypertension: Status: Acute Code(s): I10 - Essential (primary) hypertension (3) Dementia: Status: Acute Code(s): F03.90 - Unspecified dementia without behavioral disturbance Plan Elderly female with a long history of schizoaffective disorder bipolar type who was admitted into the facility for exacerbation of psychosis and mood lability. The patient is on Clozaril and apparently she has not been fully compliant with treatment. 11/21 slipped, hit head on 11/20, head CT reviewed and unremarkable. We did a MOCA and she is technically demented at this moment 03/27 no changes Plan 1. The patient at this moment is on 3 psychotics, Clozaril , Haldol and Invega Sustenna. 2. Discontinue Haldol 5 mg IM if the patient refuses Clozaril and replace with Zyprexa. 3. Lower total Clozaril to 500 mg a day. We will not continue with Invega Sustenna sings there is no improvement with 3 antipsychotics. We will keep her on Clozaril and Haldol p.o.. 4. Waiting for placement 5. Keep prazosin up to 2 mg p.o. t.i.d. to target nightmares since her blood pressure is stable I spent minutes with the patient and/or on the patient floor today, greater than?50% of which was spent counseling/coordinating care. Reason for contiued inpatient stay Substantial Risk for: med/psych decompensation
[2022-03-27 18:00] VITALS: BP 113/57; PULSE 94; RESP 16; TEMP 36.3; O2SAT 98
[2022-03-27] MEDS: cloZAPine 100 MG TABLET 300 MG PO (20:00)
[2022-03-27] MEDS: Sennosides 8.6 MG TABLET PO (20:00)
[2022-03-27] MEDS: Mirtazapine 15 MG TABLET PO (20:00)
[2022-03-28 07:35] VITALS: BP 90/47; PULSE 80; RESP 16; TEMP 36.1; O2SAT 96
[2022-03-28 11:24] VITALS: BP 104/54; PULSE 72
[2022-03-28] MEDS: Prazosin HCL 1 MG CAPSULE 2 MG PO ×2 (11:41→17:19)
[2022-03-28] MEDS: hydroCHLOROthiazide 25 MG TABLET PO (11:42)
[2022-03-28] MEDS: Lithium Carbonate 300 MG CAPSULE PO (11:42)
[2022-03-28] MEDS: Benztropine Mesylate 1 MG TABLET PO (11:42)
[2022-03-28] MEDS: Apixaban 5 MG TABLET PO (11:42)
[2022-03-28] MEDS: Desmopressin Acetate 0.2 MG TABLET PO (11:42)
[2022-03-28] MEDS: HaloperidoL 5 MG TABLET PO (11:43)
[2022-03-28] MEDS: Docusate Sodium 100 MG CAPSULE PO (11:43)
[2022-03-28] MEDS: polyethylene glycoL 3350 17 GM POWD.PACK PO (11:43)
[2022-03-28] MEDS: cloZAPine 100 MG TABLET PO ×2 (11:43→17:19)
--- NOTE | 2022-03-28 15:19 | P.PNPSI_ITS ---
Subjective Subjective Date of Service: 03/28/22 Reason For Visit: psychotic disorder Interim History: pt again taking medications pt says she's not good but can not explain why. She then talks about God and laughs a little. Mental Status Exam Mental Status Exam Patient Appearance: Appropriate Patient Orientation: Person and Situation Level of Consciousness: Awake Patient Behavior: Cooperative Mood Description: Withdrawn Affect Description: Withdrawn Patient Cognition Impaired: Yes Ability to Follow Directions: Good Speech Pattern: Clear Hallucinations: None Delusions: Paranoid Ideation Thought Process: Distracted Thought Content: positive for [place] Judgement: Fair Diagnostics Vital Signs (24Hr): Vital Signs - 24 hr 03/27/22 18:00 03/28/22 07:35 03/28/22 11:24 Temperature 97.3 F 97 F Pulse Rate 94 80 72 Respiratory Rate 16 16 Blood Pressure 113/57 L 90/47 L 104/54 L Pulse Oximetry 98 96 Oxygen Delivery Method Room Air Room Air BMI result Body Mass Index 27.3 Labs Results: 01/22/22 08:07 03/30/22 08:03 Imaging Radiology Impressions: ITS Impressions Head CT 10/08/21 15:16 IMPRESSION: No acute intracranial pathology. Head CT 10/09/21 13:54 IMPRESSION: No acute intracranial pathology. Pelvic/Transvag US 10/13/21 09:24 IMPRESSION: Abnormally thickened endometrium for a postmenopausal patient measuring 0.9 cm. 3 x 2.7 x 3.7 cm mass in the posterior cervix. This may represent a fibroid. Slightly thickened trabeculated bladder wall. Head CT 10/20/21 08:18 IMPRESSION: No acute intracranial pathology. This critical result was discussed with Dr. Chu at 8:30 hours on 10/20/2021. It was ascertained that the content and urgency of the report was understood at the time of direct communication. Head CT 11/20/21 19:29 IMPRESSION: No acute intracranial pathology. Medications Medications Current Medications Acetaminophen (Acetaminophen 325 Mg Tablet) 650 mg PO Q6H PRN PRN Reason: Headache/Pain Mild Scale (1-3) Last Admin: 03/19/22 19:51 Dose: 650 mg Al Hydroxide/Mg Hydroxide (Magnesium Hydrox/Alum Hydrox 30 Ml Oral.Susp) 30 ml PO Q6H PRN PRN Reason: Heartburn/Nausea Apixaban (Apixaban 5 Mg Tablet) 5 mg PO BID [facility] Last Admin: 03/28/22 11:42 Dose: 5 mg Benztropine Mesylate (Benztropine Mesylate 1 Mg Tablet) 1 mg PO BID [facility] Last Admin: 03/28/22 11:42 Dose: 1 mg Bisacodyl (Bisacodyl 10 Mg Supp.Rect) 10 mg [place] DAILY PRN PRN Reason: Constipation Last Admin: 12/16/21 04:01 Dose: 10 mg Clozapine (Clozapine 100 Mg Tablet) 100 mg PO DAILY [facility] Last Admin: 03/28/22 11:43 Dose: 100 mg Clozapine (Clozapine 100 Mg Tablet) 300 mg PO BEDTIME [facility] Last Admin: 03/27/22 20:00 Dose: 300 mg Clozapine (Clozapine 100 Mg Tablet) 100 mg PO DAILY@1700 [facility] Last Admin: 03/27/22 18:01 Dose: 100 mg Desmopressin Acetate (Desmopressin Acetate 0.2 Mg Tablet) 0.2 mg PO BID [facility] Last Admin: 03/28/22 11:42 Dose: 0.2 mg Docusate Sodium (Docusate Sodium 100 Mg Capsule) 100 mg PO BID [facility] Last Admin: 03/28/22 11:43 Dose: 100 mg Haloperidol (Haloperidol 5 Mg Tablet) 5 mg PO BID [facility] Last Admin: 03/28/22 11:43 Dose: 5 mg Hydrochlorothiazide (Hydrochlorothiazide 25 Mg Tablet) 25 mg PO DAILY [facility]; Protocol Last Admin: 03/28/22 11:42 Dose: 25 mg Hydroxyzine HCl (Hydroxyzine Hcl 25 Mg Tablet) 25 mg PO BEDTIME PRN PRN Reason: Anxiety Last Admin: 03/15/22 21:16 Dose: 25 mg Hydroxyzine HCl (Hydroxyzine Hcl 25 Mg Tablet) 25 mg PO BID PRN PRN Reason: Anxiety Last Admin: 03/18/22 00:20 Dose: 25 mg [place] Carbonate ([place] Carbonate 300 Mg Capsule) 300 mg PO BID [facility] Last Admin: 03/28/22 11:42 Dose: 300 mg Loperamide HCl (Loperamide Hcl 2 Mg Capsule) 4 mg PO Q4H PRN PRN Reason: Diarrhea Last Admin: 11/01/21 17:04 Dose: 4 mg Magnesium Hydroxide (Milk Of Magnesia 30 Ml Oral.Susp) 30 ml PO DAILY PRN PRN Reason: Constipation Last Admin: 01/30/22 22:11 Dose: 30 ml Miconazole Nitrate (Miconazole Nitrate 2% Oint 57 Gm Oint...G.) 1 appl TOPICAL BID [facility]; Protocol Last Admin: 03/28/22 11:43 Dose: Not Given Mirtazapine (Mirtazapine 15 Mg Tablet) 15 mg PO BEDTIME [facility] Last Admin: 03/27/22 20:00 Dose: 15 mg Olanzapine (Olanzapine 10 Mg Vial) 10 mg IM TID PRN PRN Reason: refusal of PO Clozaril Last Admin: 03/25/22 21:35 Dose: 10 mg Polyethylene Glycol (Polyethylene Glycol 3350 17 Gm Powd.Pack) 17 gm PO BID [facility] Last Admin: 03/28/22 11:43 Dose: 17 gm Prazosin HCl (Prazosin Hcl 1 Mg Capsule) 2 mg PO TID [facility]; Protocol Last Admin: 03/28/22 11:41 Dose: 2 mg Senna (Sennosides 8.6 Mg Tablet) 8.6 mg PO BEDTIME [facility] Last Admin: 03/27/22 20:00 Dose: 8.6 mg Trazodone HCl (Trazodone Hcl 50 Mg Tablet) 50 mg PO BEDTIME PRN PRN Reason: Insomnia Last Admin: 03/26/22 23:57 Dose: 50 mg Trolamine Salicylate/Aloe Vera (Trolamine Salicylate 10%/Aloe Cream 35.4 Gm) 1 appl TOPICAL TID PRN PRN Reason: neck pain Last Admin: 02/02/22 22:34 Dose: 1 appl Allergies Allergies Allergy/AdvReac Type Severity Reaction Status Date / Time No Known Allergies Allergy Unverified 05/01/20 19:42 [No Known Allergies*] Assessment & Plan Assessment & Plan (1) Schizophrenia, paranoid, chronic with acute exacerbation: Status: Acute Code(s): F20.0 - Paranoid schizophrenia (2) Hypertension: Status: Acute Code(s): I10 - Essential (primary) hypertension (3) Dementia: Status: Acute Code(s): F03.90 - Unspecified dementia without behavioral disturbance Plan Elderly female with a long history of schizoaffective disorder bipolar type who was admitted into the facility for exacerbation of psychosis and mood lability. The patient is on Clozaril and apparently she has not been fully compliant with treatment. 11/21 slipped, hit head on 11/20, head CT reviewed and unremarkable. We did a MOCA and she is technically demented at this moment 03/27 no changes 03/28 no changes Plan 1. The patient at this moment is on 3 psychotics, Clozaril , Haldol and Invega Sustenna. 2. Discontinue Haldol 5 mg IM if the patient refuses Clozaril and replace with Zyprexa. 3. Lower total Clozaril to 500 mg a day. We will not continue with Invega Sustenna sings there is no improvement with 3 antipsychotics. We will keep her on Clozaril and Haldol p.o.. 4. Waiting for placement 5. Keep prazosin up to 2 mg p.o. t.i.d. to target nightmares since her blood pressure is stable I spent minutes with the patient and/or on the patient floor today, greater than?50% of which was spent counseling/coordinating care. Reason for contiued inpatient stay Substantial Risk for: med/psych decompensation
[2022-03-28 21:00] VITALS: BP 101/60; PULSE 89; RESP 18; TEMP 36.4; O2SAT 96
[2022-03-28] MEDS: cloZAPine 100 MG TABLET 300 MG PO (22:40)
[2022-03-29] MEDS: traZODone HCL 50 MG TABLET PO ×2 (02:10→21:58)
[2022-03-29] MEDS: hydrOXYzine HCL 25 MG TABLET PO (02:11)
[2022-03-29 07:30] VITALS: BP 85/50; PULSE 81; RESP 15; TEMP 36.8; O2SAT 97
--- NOTE | 2022-03-29 10:10 | HO.PSYCHPN ---
Subjective Subjective Date of Service: 03/29/22 Reason For Visit: psychotic disorder Subjective Notes: Conditional Voluntary Interim History: The nursing staff reported the patient refused her medication yesterday in the morning she received an a.m.. She was compliant with her Clozaril last night. On interview the patient was sleepy, denies new symptoms. Mental Status Exam Mental Status Exam Patient Appearance: Appropriate Patient Orientation: Person and Situation Level of Consciousness: Awake Patient Behavior: Cooperative Mood Description: Calm Affect Description: Labile Patient Cognition Impaired: Yes Ability to Follow Directions: Good Speech Pattern: Clear Hallucinations: None Delusions: Paranoid Ideation Thought Process: Distracted and Evasive Thought Content: positive for [place] Judgement: Fair Diagnostics Vital Signs (24Hr): Vital Signs - 24 hr 03/28/22 11:24 03/28/22 21:00 Temperature 97.6 F Pulse Rate 72 89 Respiratory Rate 18 Blood Pressure 104/54 L 101/60 Pulse Oximetry 96 Oxygen Delivery Method Room Air BMI result Body Mass Index 27.3 Labs Results: 01/22/22 08:07 02/20/22 19:35 Imaging Radiology Impressions: ITS Impressions Head CT 10/08/21 15:16 IMPRESSION: No acute intracranial pathology. Head CT 10/09/21 13:54 IMPRESSION: No acute intracranial pathology. Pelvic/Transvag US 10/13/21 09:24 IMPRESSION: Abnormally thickened endometrium for a postmenopausal patient measuring 0.9 cm. 3 x 2.7 x 3.7 cm mass in the posterior cervix. This may represent a fibroid. Slightly thickened trabeculated bladder wall. Head CT 10/20/21 08:18 IMPRESSION: No acute intracranial pathology. This critical result was discussed with Dr. Chu at 8:30 hours on 10/20/2021. It was ascertained that the content and urgency of the report was understood at the time of direct communication. Head CT 11/20/21 19:29 IMPRESSION: No acute intracranial pathology. Medications Medications Current Medications Acetaminophen (Acetaminophen 325 Mg Tablet) 650 mg PO Q6H PRN PRN Reason: Headache/Pain Mild Scale (1-3) Last Admin: 03/19/22 19:51 Dose: 650 mg Al Hydroxide/Mg Hydroxide (Magnesium Hydrox/Alum Hydrox 30 Ml Oral.Susp) 30 ml PO Q6H PRN PRN Reason: Heartburn/Nausea Apixaban (Apixaban 5 Mg Tablet) 5 mg PO BID [facility] Last Admin: 03/28/22 21:39 Dose: Not Given Benztropine Mesylate (Benztropine Mesylate 1 Mg Tablet) 1 mg PO BID [facility] Last Admin: 03/28/22 21:39 Dose: Not Given Bisacodyl (Bisacodyl 10 Mg Supp.Rect) 10 mg [place] DAILY PRN PRN Reason: Constipation Last Admin: 12/16/21 04:01 Dose: 10 mg Clozapine (Clozapine 100 Mg Tablet) 100 mg PO DAILY [facility] Last Admin: 03/28/22 11:43 Dose: 100 mg Clozapine (Clozapine 100 Mg Tablet) 300 mg PO BEDTIME [facility] Last Admin: 03/28/22 22:40 Dose: 300 mg Clozapine (Clozapine 100 Mg Tablet) 100 mg PO DAILY@1700 [facility] Last Admin: 03/28/22 17:19 Dose: 100 mg Desmopressin Acetate (Desmopressin Acetate 0.2 Mg Tablet) 0.2 mg PO BID [facility] Last Admin: 03/28/22 21:40 Dose: Not Given Docusate Sodium (Docusate Sodium 100 Mg Capsule) 100 mg PO BID [facility] Last Admin: 03/28/22 21:40 Dose: Not Given Haloperidol (Haloperidol 5 Mg Tablet) 5 mg PO BID [facility] Last Admin: 03/28/22 21:40 Dose: Not Given Hydrochlorothiazide (Hydrochlorothiazide 25 Mg Tablet) 25 mg PO DAILY [facility]; Protocol Last Admin: 03/28/22 11:42 Dose: 25 mg Hydroxyzine HCl (Hydroxyzine Hcl 25 Mg Tablet) 25 mg PO BEDTIME PRN PRN Reason: Anxiety Last Admin: 03/29/22 02:11 Dose: 25 mg Hydroxyzine HCl (Hydroxyzine Hcl 25 Mg Tablet) 25 mg PO BID PRN PRN Reason: Anxiety Last Admin: 03/18/22 00:20 Dose: 25 mg [place] Carbonate ([place] Carbonate 300 Mg Capsule) 300 mg PO BID [facility] Last Admin: 03/28/22 21:40 Dose: Not Given Loperamide HCl (Loperamide Hcl 2 Mg Capsule) 4 mg PO Q4H PRN PRN Reason: Diarrhea Last Admin: 11/01/21 17:04 Dose: 4 mg Magnesium Hydroxide (Milk Of Magnesia 30 Ml Oral.Susp) 30 ml PO DAILY PRN PRN Reason: Constipation Last Admin: 01/30/22 22:11 Dose: 30 ml Miconazole Nitrate (Miconazole Nitrate 2% Oint 57 Gm Oint...G.) 1 appl TOPICAL BID [facility]; Protocol Last Admin: 03/28/22 21:40 Dose: Not Given Mirtazapine (Mirtazapine 15 Mg Tablet) 15 mg PO BEDTIME [facility] Last Admin: 03/28/22 21:40 Dose: Not Given Olanzapine (Olanzapine 10 Mg Vial) 10 mg IM TID PRN PRN Reason: refusal of PO Clozaril Last Admin: 03/25/22 21:35 Dose: 10 mg Polyethylene Glycol (Polyethylene Glycol 3350 17 Gm Powd.Pack) 17 gm PO BID [facility] Last Admin: 03/28/22 21:40 Dose: Not Given Prazosin HCl (Prazosin Hcl 1 Mg Capsule) 2 mg PO TID [facility]; Protocol Last Admin: 03/28/22 21:40 Dose: Not Given Senna (Sennosides 8.6 Mg Tablet) 8.6 mg PO BEDTIME [facility] Last Admin: 03/28/22 21:41 Dose: Not Given Trazodone HCl (Trazodone Hcl 50 Mg Tablet) 50 mg PO BEDTIME PRN PRN Reason: Insomnia Last Admin: 03/29/22 02:10 Dose: 50 mg Trolamine Salicylate/Aloe Vera (Trolamine Salicylate 10%/Aloe Cream 35.4 Gm) 1 appl TOPICAL TID PRN PRN Reason: neck pain Last Admin: 02/02/22 22:34 Dose: 1 appl Allergies Allergies Allergy/AdvReac Type Severity Reaction Status Date / Time No Known Allergies Allergy Unverified 05/01/20 19:42 [No Known Allergies*] Assessment & Plan Assessment & Plan (1) Schizophrenia, paranoid, chronic with acute exacerbation: Status: Acute Code(s): F20.0 - Paranoid schizophrenia (2) Hypertension: Status: Acute Code(s): I10 - Essential (primary) hypertension (3) Dementia: Status: Acute Code(s): F03.90 - Unspecified dementia without behavioral disturbance Plan Elderly female with a long history of schizoaffective disorder bipolar type who was admitted into the facility for exacerbation of psychosis and mood lability. The patient is on Clozaril and apparently she has not been fully compliant with treatment. 11/21 slipped, hit head on 11/20, head CT reviewed and unremarkable. We did a MOCA and she is technically demented at this moment Plan 1. The patient at this moment is on 3 psychotics, Clozaril , Haldol and Invega Sustenna. 2. Discontinue Haldol 5 mg IM if the patient refuses Clozaril and replace with Zyprexa. 3. Lower total Clozaril to 500 mg a day. We will not continue with Invega Sustenna sings there is no improvement with 3 antipsychotics. We will keep her on Clozaril and Haldol p.o.. 4. Waiting for placement 5. Keep prazosin up to 2 mg p.o. t.i.d. to target nightmares since her blood pressure is stable I spent ___20___ minutes with the patient and/or on the patient floor today, greater than?50% of which was spent counseling/coordinating care. Reason for contiued inpatient stay Substantial Risk for: inability to function, rapid decompensation and med/psych decompensation
[2022-03-29] MEDS: Apixaban 5 MG TABLET PO (13:11)
[2022-03-29] MEDS: hydroCHLOROthiazide 25 MG TABLET PO (13:11)
[2022-03-29] MEDS: HaloperidoL 5 MG TABLET PO (13:11)
[2022-03-29] MEDS: Docusate Sodium 100 MG CAPSULE PO ×2 (13:11→21:56)
[2022-03-29] MEDS: Desmopressin Acetate 0.2 MG TABLET PO ×2 (13:11→21:56)
[2022-03-29] MEDS: Prazosin HCL 1 MG CAPSULE 2 MG PO ×2 (13:11→21:56)
[2022-03-29] MEDS: Benztropine Mesylate 1 MG TABLET PO ×2 (13:12→21:57)
[2022-03-29] MEDS: Lithium Carbonate 300 MG CAPSULE PO ×2 (13:12→21:55)
[2022-03-29] MEDS: cloZAPine 100 MG TABLET PO ×2 (13:12→17:32)
[2022-03-29 18:00] VITALS: BP 109/52; PULSE 84; RESP 16; TEMP 36.6; O2SAT 98
[2022-03-29] MEDS: Sennosides 8.6 MG TABLET PO (21:57)
[2022-03-29] MEDS: cloZAPine 100 MG TABLET 300 MG PO (21:58)
[2022-03-29] MEDS: polyethylene glycoL 3350 17 GM POWD.PACK PO (22:06)
[2022-03-30 05:34] VITALS: BP 107/52; PULSE 94; RESP 16; TEMP 36.4; O2SAT 95
--- NOTE | 2022-03-30 05:42 | PC.NURSE ---
unwitnessed fall- pt was heard to be loudly screaming-staff immediately responded and found pt seated on the floor of bathroom in front of toilet. pts legs were outstretched in front of her. pt states that she fell. urine and loose brown stool are noted on the floor of bathroom. a large formed bm is noted in the toilet. pt states that she landed on her buttock. she states she did not hit her head. with assistance pt is brought to a standing position. there are no deformities or areas of injury noted. pt denies pain. she is mobile with no new deficits noted. vital signs taken and stable. dry house worker paul elder notified of unwitnessed fall. plan 1. will notify family 2. will notify feather boner woody montilla of incident
[2022-03-30 08:00] VITALS: BP 104/59; PULSE 82; RESP 16; TEMP 36.1; O2SAT 97
[2022-03-30 08:27] LABS: Estimated Average Glucose 94 mg/dL; Hemoglobin A1c % 4.9 %; Lithium 0.58 mmol/L (0.60-1.20)
[2022-03-30 08:46] LABS: Anion Gap 11 (12-20); Blood Urea Nitrogen 21 mg/dL (9-16); Calcium 6.7 mg/dL (8.4-10.2); Carbon Dioxide 25 mmol/L (22-29); Chloride 112 mmol/L (96-108); Cholesterol 191 mg/dL; Creatinine Clr Calc Pharmacy 59.9; Estimated Glomerular Filt Rate > 60; Glucose Fasting 107 mg/dL (60-99); HDL Cholesterol 43 mg/dL; LDL Cholesterol Calculated 127 mg/dl; Potassium 3.9 mmol/L (3.3-5.1); Sodium 144 mmol/L (135-145); Triglycerides 106 mg/dL
[2022-03-30] MEDS: Prazosin HCL 1 MG CAPSULE 2 MG PO ×3 (09:15→20:47)
[2022-03-30] MEDS: Lithium Carbonate 300 MG CAPSULE PO ×2 (09:16→21:16)
[2022-03-30] MEDS: Benztropine Mesylate 1 MG TABLET PO ×2 (09:16→21:16)
[2022-03-30] MEDS: hydroCHLOROthiazide 25 MG TABLET PO (09:16)
[2022-03-30] MEDS: HaloperidoL 5 MG TABLET PO ×2 (09:17→20:47)
[2022-03-30] MEDS: Desmopressin Acetate 0.2 MG TABLET PO ×2 (09:17→21:16)
[2022-03-30] MEDS: Apixaban 5 MG TABLET PO ×2 (09:17→20:46)
[2022-03-30] MEDS: cloZAPine 100 MG TABLET PO ×2 (09:17→17:08)
[2022-03-30] MEDS: Docusate Sodium 100 MG CAPSULE PO ×2 (09:18→21:18)
[2022-03-30] MEDS: polyethylene glycoL 3350 17 GM POWD.PACK PO ×2 (09:18→20:46)
[2022-03-30] MEDS: Miconazole Nitrate 2% Oint 57 GM OINT...G. 1 APPL TOPICAL (09:21)
[2022-03-30 11:55] LABS: Appearance Urine CLEAR; Color Urine STRAW; Glucose Urine UA Negative (Negative); Leukocyte Esterase Urine Negative (Negative); Nitrite Urine Negative (Negative); PH 6.5 (5.0-8.0); Specific Gravity - Urine <= 1.005 (1.005-1.025); Urine Blood Negative (Negative); Urine Ketones Negative (Negative); Urine Protein Negative (Neg-Trace)
[2022-03-30 12:18] LABS: RBC Urine 0-2 /HPF (0-2); WBC Urine 0-5 /HPF (0-5)
[2022-03-30 12:19] LABS: Bacteria Urine None Seen (None Seen)
[2022-03-30 12:21] LABS: Hyaline Casts Urine 0-2 /LPF
--- NOTE | 2022-03-30 15:40 | P.PNPSI_ITS ---
Subjective Subjective Date of Service: 03/30/22 Reason For Visit: psychotic disorder Subjective Notes: Conditional Voluntary Interim History: The nursing staff reported the patient has been compliant with treatment. Her blood work came back normal with a lithium level of 0.58 even though that she had been partially compliant in the last week. On interview the patient denies new symptoms. Mental Status Exam Mental Status Exam Patient Appearance: Well Grooomed Patient Orientation: Person and Situation Level of Consciousness: Awake and Appropriate Patient Behavior: Cooperative Mood Description: Calm Affect Description: Constricted Patient Cognition Impaired: Yes Ability to Follow Directions: Good Speech Pattern: Clear Memory Description: Intact Delusions: Paranoid Ideation Thought Process: Distracted Thought Content: positive for [place] Oriented Judgement: Fair Diagnostics Vital Signs (24Hr): Vital Signs - 24 hr 03/29/22 18:00 03/30/22 05:34 03/30/22 08:00 Temperature 97.9 F 97.6 F 96.9 F Pulse Rate 84 94 82 Respiratory Rate 16 16 16 Blood Pressure 109/52 L 107/52 L 104/59 L Pulse Oximetry 98 95 97 Oxygen Delivery Method Room Air Room Air Room Air BMI result Body Mass Index 27.3 Labs Results: 01/22/22 08:07 03/30/22 08:03 Labs: Laboratory Results - last 48 hr 03/30/22 03/30/22 03/30/22 08:03 08:03 08:03 Sodium 144 Potassium 3.9 Chloride 112 H Carbon Dioxide 25 Anion Gap 11 L BUN 21 H Creatinine 0.81 Estim Creat Clear Calc 59.9 Estimated GFR > 60 Fasting Glucose 107 H Estimat Average Glucose 94 Hemoglobin A1c % 4.9 Calcium 6.7 L D Triglycerides 106 Cholesterol 191 LDL Cholesterol, Calc 127 HDL Cholesterol 43 TSH 1.50 Urine Color Urine Appearance Urine pH Ur Specific [place] Urine Protein Urine Glucose (UA) Urine Ketones Urine Blood Urine Nitrite Ur Leukocyte Esterase Urine RBC Urine WBC Ur Squamous Epith Cells Urine Bacteria Hyaline Casts [place] 0.58 L 03/30/22 11:30 Sodium Potassium Chloride Carbon Dioxide Anion Gap BUN Creatinine Estim Creat Clear Calc Estimated GFR Fasting Glucose Estimat Average Glucose Hemoglobin A1c % Calcium Triglycerides Cholesterol LDL Cholesterol, Calc HDL Cholesterol TSH Urine Color STRAW Urine Appearance CLEAR Urine pH 6.5 Ur Specific [place] <= 1.005 Urine Protein Negative Urine Glucose (UA) Negative Urine Ketones Negative Urine Blood Negative Urine Nitrite Negative Ur Leukocyte Esterase Negative Urine RBC 0-2 Urine WBC 0-5 Ur Squamous Epith Cells 3-5 Urine Bacteria None Seen Hyaline Casts 0-2 [place] [facility] Radiology Impressions: ITS Impressions Head CT 10/08/21 15:16 IMPRESSION: No acute intracranial pathology. Head CT 10/09/21 13:54 IMPRESSION: No acute intracranial pathology. Pelvic/Transvag US 10/13/21 09:24 IMPRESSION: Abnormally thickened endometrium for a postmenopausal patient measuring 0.9 cm. 3 x 2.7 x 3.7 cm mass in the posterior cervix. This may represent a fibroid. Slightly thickened trabeculated bladder wall. Head CT 10/20/21 08:18 IMPRESSION: No acute intracranial pathology. This critical result was discussed with Dr. Chu at 8:30 hours on 10/20/2021. It was ascertained that the content and urgency of the report was understood at the time of direct communication. Head CT 11/20/21 19:29 IMPRESSION: No acute intracranial pathology. Medications Medications Current Medications Acetaminophen (Acetaminophen 325 Mg Tablet) 650 mg PO Q6H PRN PRN Reason: Headache/Pain Mild Scale (1-3) Last Admin: 03/19/22 19:51 Dose: 650 mg Al Hydroxide/Mg Hydroxide (Magnesium Hydrox/Alum Hydrox 30 Ml Oral.Susp) 30 ml PO Q6H PRN PRN Reason: Heartburn/Nausea Apixaban (Apixaban 5 Mg Tablet) 5 mg PO BID [facility] Last Admin: 03/30/22 09:17 Dose: 5 mg Benztropine Mesylate (Benztropine Mesylate 1 Mg Tablet) 1 mg PO BID [facility] Last Admin: 03/30/22 09:16 Dose: 1 mg Bisacodyl (Bisacodyl 10 Mg Supp.Rect) 10 mg [place] DAILY PRN PRN Reason: Constipation Last Admin: 12/16/21 04:01 Dose: 10 mg Clozapine (Clozapine 100 Mg Tablet) 100 mg PO DAILY [facility] Last Admin: 03/30/22 09:17 Dose: 100 mg Clozapine (Clozapine 100 Mg Tablet) 300 mg PO BEDTIME [facility] Last Admin: 03/29/22 21:58 Dose: 300 mg Clozapine (Clozapine 100 Mg Tablet) 100 mg PO DAILY@1700 [facility] Last Admin: 03/29/22 17:32 Dose: 100 mg Desmopressin Acetate (Desmopressin Acetate 0.2 Mg Tablet) 0.2 mg PO BID [facility] Last Admin: 03/30/22 09:17 Dose: 0.2 mg Docusate Sodium (Docusate Sodium 100 Mg Capsule) 100 mg PO BID [facility] Last Admin: 03/30/22 09:18 Dose: 100 mg Haloperidol (Haloperidol 5 Mg Tablet) 5 mg PO BID [facility] Last Admin: 03/30/22 09:17 Dose: 5 mg Hydrochlorothiazide (Hydrochlorothiazide 25 Mg Tablet) 25 mg PO DAILY [facility]; Protocol Last Admin: 03/30/22 09:16 Dose: 25 mg Hydroxyzine HCl (Hydroxyzine Hcl 25 Mg Tablet) 25 mg PO BEDTIME PRN PRN Reason: Anxiety Last Admin: 03/29/22 02:11 Dose: 25 mg Hydroxyzine HCl (Hydroxyzine Hcl 25 Mg Tablet) 25 mg PO BID PRN PRN Reason: Anxiety Last Admin: 03/18/22 00:20 Dose: 25 mg [place] Carbonate ([place] Carbonate 300 Mg Capsule) 300 mg PO BID [facility] Last Admin: 03/30/22 09:16 Dose: 300 mg Loperamide HCl (Loperamide Hcl 2 Mg Capsule) 4 mg PO Q4H PRN PRN Reason: Diarrhea Last Admin: 11/01/21 17:04 Dose: 4 mg Magnesium Hydroxide (Milk Of Magnesia 30 Ml Oral.Susp) 30 ml PO DAILY PRN PRN Reason: Constipation Last Admin: 01/30/22 22:11 Dose: 30 ml Miconazole Nitrate (Miconazole Nitrate 2% Oint 57 Gm Oint...G.) 1 appl TOPICAL BID [facility]; Protocol Last Admin: 03/30/22 09:21 Dose: 1 appl Mirtazapine (Mirtazapine 15 Mg Tablet) 15 mg PO BEDTIME [facility] Last Admin: 03/29/22 22:07 Dose: Not Given Olanzapine (Olanzapine 10 Mg Vial) 10 mg IM TID PRN PRN Reason: refusal of PO Clozaril Last Admin: 03/25/22 21:35 Dose: 10 mg Polyethylene Glycol (Polyethylene Glycol 3350 17 Gm Powd.Pack) 17 gm PO BID [facility] Last Admin: 03/30/22 09:18 Dose: 17 gm Prazosin HCl (Prazosin Hcl 1 Mg Capsule) 2 mg PO TID [facility]; Protocol Last Admin: 03/30/22 14:55 Dose: 2 mg Senna (Sennosides 8.6 Mg Tablet) 8.6 mg PO BEDTIME [facility] Last Admin: 03/29/22 21:57 Dose: 8.6 mg Trazodone HCl (Trazodone Hcl 50 Mg Tablet) 50 mg PO BEDTIME PRN PRN Reason: Insomnia Last Admin: 03/29/22 21:58 Dose: 50 mg Trolamine Salicylate/Aloe Vera (Trolamine Salicylate 10%/Aloe Cream 35.4 Gm) 1 appl TOPICAL TID PRN PRN Reason: neck pain Last Admin: 02/02/22 22:34 Dose: 1 appl Allergies Allergies Allergy/AdvReac Type Severity Reaction Status Date / Time No Known Allergies Allergy Unverified 05/01/20 19:42 [No Known Allergies*] Assessment & Plan Assessment & Plan (1) Schizophrenia, paranoid, chronic with acute exacerbation: Status: Acute Code(s): F20.0 - Paranoid schizophrenia (2) Hypertension: Status: Acute Code(s): I10 - Essential (primary) hypertension (3) Dementia: Status: Acute Code(s): F03.90 - Unspecified dementia without behavioral disturbance Plan Elderly female with a long history of schizoaffective disorder bipolar type who was admitted into the facility for exacerbation of psychosis and mood lability. The patient is on Clozaril and apparently she has not been fully compliant with treatment. 11/21 slipped, hit head on 11/20, head CT reviewed and unremarkable. We did a MOCA and she is technically demented at this moment Plan 1. The patient at this moment is on 3 psychotics, Clozaril , Haldol and Invega Sustenna. 2. Discontinue Haldol 5 mg IM if the patient refuses Clozaril and replace with Zyprexa. 3. Lower total Clozaril to 500 mg a day. We will not continue with Invega Sustenna sings there is no improvement with 3 antipsychotics. We will keep her on Clozaril and Haldol p.o.. 4. Waiting for placement 5. Keep prazosin up to 2 mg p.o. t.i.d. to target nightmares since her blood pressure is stable I spent ___20___ minutes with the patient and/or on the patient floor today, greater than?50% of which was spent counseling/coordinating care. Reason for contiued inpatient stay Substantial Risk for: inability to function, rapid decompensation and med/psych decompensation
[2022-03-30 19:37] VITALS: BP 113/68; PULSE 83; RESP 16; TEMP 36.6; O2SAT 99
[2022-03-30] MEDS: cloZAPine 100 MG TABLET 300 MG PO (20:46)
[2022-03-30] MEDS: Sennosides 8.6 MG TABLET PO (21:16)
[2022-03-30] MEDS: traZODone HCL 50 MG TABLET PO (23:11)
[2022-03-30] MEDS: Mirtazapine 15 MG TABLET PO (23:11)
[2022-03-31 10:38] VITALS: BP 151/61; PULSE 90; RESP 16; TEMP 36.2; O2SAT 99
[2022-03-31] MEDS: cloZAPine 100 MG TABLET PO ×2 (10:42→16:06)
[2022-03-31] MEDS: hydroCHLOROthiazide 25 MG TABLET PO (10:42)
[2022-03-31] MEDS: Apixaban 5 MG TABLET PO (10:42)
[2022-03-31] MEDS: Desmopressin Acetate 0.2 MG TABLET PO (10:43)
[2022-03-31] MEDS: HaloperidoL 5 MG TABLET PO (10:43)
[2022-03-31] MEDS: Prazosin HCL 1 MG CAPSULE 2 MG PO ×3 (10:43→20:27)
[2022-03-31] MEDS: Docusate Sodium 100 MG CAPSULE PO (10:43)
[2022-03-31] MEDS: Benztropine Mesylate 1 MG TABLET PO (10:44)
[2022-03-31] MEDS: Lithium Carbonate 300 MG CAPSULE PO ×2 (10:44→20:28)
--- NOTE | 2022-03-31 14:57 | HO.PSYCHPN ---
Subjective Subjective Date of Service: 03/31/22 Reason For Visit: psychotic disorder Subjective Notes: Conditional Voluntary Interim History: The nursing staff reported the patient fell in the bathroom. She had been incontinent of bowel and bladder. On interview the patient denies new symptoms she was asking about discharge planning Mental Status Exam Mental Status Exam Patient Appearance: Well Grooomed Patient Orientation: Person and Situation Level of Consciousness: Awake Mood Description: Withdrawn Affect Description: Constricted Patient Cognition Impaired: Yes Ability to Follow Directions: Good Speech Pattern: Clear Hallucinations: None Delusions: Paranoid Ideation Thought Process: Distracted Thought Content: positive for [place] and positive for Circumstantial Judgement: Fair Diagnostics Vital Signs (24Hr): Vital Signs - 24 hr 03/30/22 19:37 03/31/22 10:38 Temperature 97.9 F 97.2 F Pulse Rate 83 90 Respiratory Rate 16 16 Blood Pressure 113/68 151/61 H Pulse Oximetry 99 99 Oxygen Delivery Method Room Air Room Air BMI result Body Mass Index 27.3 Labs Results: 01/22/22 08:07 03/30/22 08:03 Labs: Laboratory Results - last 48 hr 03/30/22 03/30/22 03/30/22 08:03 08:03 08:03 Sodium 144 Potassium 3.9 Chloride 112 H Carbon Dioxide 25 Anion Gap 11 L BUN 21 H Creatinine 0.81 Estim Creat Clear Calc 59.9 Estimated GFR > 60 Fasting Glucose 107 H Estimat Average Glucose 94 Hemoglobin A1c % 4.9 Calcium 6.7 L D Triglycerides 106 Cholesterol 191 LDL Cholesterol, Calc 127 HDL Cholesterol 43 TSH 1.50 Urine Color Urine Appearance Urine pH Ur Specific [place] Urine Protein Urine Glucose (UA) Urine Ketones Urine Blood Urine Nitrite Ur Leukocyte Esterase Urine RBC Urine WBC Ur Squamous Epith Cells Urine Bacteria Hyaline Casts [place] 0.58 L 03/30/22 11:30 Sodium Potassium Chloride Carbon Dioxide Anion Gap BUN Creatinine Estim Creat Clear Calc Estimated GFR Fasting Glucose Estimat Average Glucose Hemoglobin A1c % Calcium Triglycerides Cholesterol LDL Cholesterol, Calc HDL Cholesterol TSH Urine Color STRAW Urine Appearance CLEAR Urine pH 6.5 Ur Specific [place] <= 1.005 Urine Protein Negative Urine Glucose (UA) Negative Urine Ketones Negative Urine Blood Negative Urine Nitrite Negative Ur Leukocyte Esterase Negative Urine RBC 0-2 Urine WBC 0-5 Ur Squamous Epith Cells 3-5 Urine Bacteria None Seen Hyaline Casts 0-2 [facility] Radiology Impressions: ITS Impressions Head CT 10/08/21 15:16 IMPRESSION: No acute intracranial pathology. Head CT 10/09/21 13:54 IMPRESSION: No acute intracranial pathology. Pelvic/Transvag US 10/13/21 09:24 IMPRESSION: Abnormally thickened endometrium for a postmenopausal patient measuring 0.9 cm. 3 x 2.7 x 3.7 cm mass in the posterior cervix. This may represent a fibroid. Slightly thickened trabeculated bladder wall. Head CT 10/20/21 08:18 IMPRESSION: No acute intracranial pathology. This critical result was discussed with Dr. Chu at 8:30 hours on 10/20/2021. It was ascertained that the content and urgency of the report was understood at the time of direct communication. Head CT 11/20/21 19:29 IMPRESSION: No acute intracranial pathology. Medications Medications Current Medications Acetaminophen (Acetaminophen 325 Mg Tablet) 650 mg PO Q6H PRN PRN Reason: Headache/Pain Mild Scale (1-3) Last Admin: 03/19/22 19:51 Dose: 650 mg Al Hydroxide/Mg Hydroxide (Magnesium Hydrox/Alum Hydrox 30 Ml Oral.Susp) 30 ml PO Q6H PRN PRN Reason: Heartburn/Nausea Apixaban (Apixaban 5 Mg Tablet) 5 mg PO BID [facility] Last Admin: 03/31/22 10:42 Dose: 5 mg Benztropine Mesylate (Benztropine Mesylate 1 Mg Tablet) 1 mg PO BID [facility] Last Admin: 03/31/22 10:44 Dose: 1 mg Bisacodyl (Bisacodyl 10 Mg Supp.Rect) 10 mg [place] DAILY PRN PRN Reason: Constipation Last Admin: 12/16/21 04:01 Dose: 10 mg Clozapine (Clozapine 100 Mg Tablet) 100 mg PO DAILY [facility] Last Admin: 03/31/22 10:42 Dose: 100 mg Clozapine (Clozapine 100 Mg Tablet) 300 mg PO BEDTIME [facility] Last Admin: 03/30/22 20:46 Dose: 300 mg Clozapine (Clozapine 100 Mg Tablet) 100 mg PO DAILY@1700 [facility] Last Admin: 03/30/22 17:08 Dose: 100 mg Desmopressin Acetate (Desmopressin Acetate 0.2 Mg Tablet) 0.2 mg PO BID [facility] Last Admin: 03/31/22 10:43 Dose: 0.2 mg Docusate Sodium (Docusate Sodium 100 Mg Capsule) 100 mg PO BID [facility] Last Admin: 03/31/22 10:43 Dose: 100 mg Haloperidol (Haloperidol 5 Mg Tablet) 5 mg PO BID [facility] Last Admin: 03/31/22 10:43 Dose: 5 mg Hydrochlorothiazide (Hydrochlorothiazide 25 Mg Tablet) 25 mg PO DAILY [facility]; Protocol Last Admin: 03/31/22 10:42 Dose: 25 mg Hydroxyzine HCl (Hydroxyzine Hcl 25 Mg Tablet) 25 mg PO BEDTIME PRN PRN Reason: Anxiety Last Admin: 03/29/22 02:11 Dose: 25 mg Hydroxyzine HCl (Hydroxyzine Hcl 25 Mg Tablet) 25 mg PO BID PRN PRN Reason: Anxiety Last Admin: 03/18/22 00:20 Dose: 25 mg [place] Carbonate ([place] Carbonate 300 Mg Capsule) 300 mg PO BID [facility] Last Admin: 03/31/22 10:44 Dose: 300 mg Loperamide HCl (Loperamide Hcl 2 Mg Capsule) 4 mg PO Q4H PRN PRN Reason: Diarrhea Last Admin: 11/01/21 17:04 Dose: 4 mg Magnesium Hydroxide (Milk Of Magnesia 30 Ml Oral.Susp) 30 ml PO DAILY PRN PRN Reason: Constipation Last Admin: 01/30/22 22:11 Dose: 30 ml Miconazole Nitrate (Miconazole Nitrate 2% Oint 57 Gm Oint...G.) 1 appl TOPICAL BID [facility]; Protocol Last Admin: 03/31/22 10:46 Dose: Not Given Mirtazapine (Mirtazapine 15 Mg Tablet) 15 mg PO BEDTIME [facility] Last Admin: 03/30/22 23:11 Dose: 15 mg Olanzapine (Olanzapine 10 Mg Vial) 10 mg IM TID PRN PRN Reason: refusal of PO Clozaril Last Admin: 03/25/22 21:35 Dose: 10 mg Polyethylene Glycol (Polyethylene Glycol 3350 17 Gm Powd.Pack) 17 gm PO BID [facility] Last Admin: 03/31/22 10:46 Dose: Not Given Prazosin HCl (Prazosin Hcl 1 Mg Capsule) 2 mg PO TID [facility]; Protocol Last Admin: 03/31/22 10:43 Dose: 2 mg Senna (Sennosides 8.6 Mg Tablet) 8.6 mg PO BEDTIME [facility] Last Admin: 03/30/22 21:16 Dose: 8.6 mg Trazodone HCl (Trazodone Hcl 50 Mg Tablet) 50 mg PO BEDTIME PRN PRN Reason: Insomnia Last Admin: 03/30/22 23:11 Dose: 50 mg Trolamine Salicylate/Aloe Vera (Trolamine Salicylate 10%/Aloe Cream 35.4 Gm) 1 appl TOPICAL TID PRN PRN Reason: neck pain Last Admin: 02/02/22 22:34 Dose: 1 appl Allergies Allergies Allergy/AdvReac Type Severity Reaction Status Date / Time No Known Allergies Allergy Unverified 05/01/20 19:42 [No Known Allergies*] Assessment & Plan Assessment & Plan (1) Schizophrenia, paranoid, chronic with acute exacerbation: Status: Acute Code(s): F20.0 - Paranoid schizophrenia (2) Hypertension: Status: Acute Code(s): I10 - Essential (primary) hypertension (3) Dementia: Status: Acute Code(s): F03.90 - Unspecified dementia without behavioral disturbance Plan Elderly female with a long history of schizoaffective disorder bipolar type who was admitted into the facility for exacerbation of psychosis and mood lability. The patient is on Clozaril and apparently she has not been fully compliant with treatment. 11/21 slipped, hit head on 11/20, head CT reviewed and unremarkable. We did a MOCA and she is technically demented at this moment Plan 1. The patient at this moment is on 3 psychotics, Clozaril , Haldol and Invega Sustenna. 2. Discontinue Haldol 5 mg IM if the patient refuses Clozaril and replace with Zyprexa. 3. Lower total Clozaril to 500 mg a day. We will not continue with Invega Sustenna sings there is no improvement with 3 antipsychotics. We will keep her on Clozaril and Haldol p.o.. 4. Waiting for placement 5. Keep prazosin up to 2 mg p.o. t.i.d. to target nightmares since her blood pressure is stable I spent ___20___ minutes with the patient and/or on the patient floor today, greater than?50% of which was spent counseling/coordinating care. Reason for contiued inpatient stay Substantial Risk for: inability to function, rapid decompensation and med/psych decompensation
[2022-03-31] MEDS: Acetaminophen 325 MG TABLET 650 MG PO (16:13)
[2022-03-31 18:00] VITALS: BP 110/52
[2022-04-01 06:00] VITALS: BP 103/52; PULSE 77; RESP 14; TEMP 36.8; O2SAT 97
[2022-04-01] MEDS: Lithium Carbonate 300 MG CAPSULE PO ×2 (11:30→20:06)
[2022-04-01] MEDS: Apixaban 5 MG TABLET PO ×2 (11:30→20:04)
[2022-04-01] MEDS: Desmopressin Acetate 0.2 MG TABLET PO ×2 (11:31→20:06)
[2022-04-01] MEDS: Benztropine Mesylate 1 MG TABLET PO ×2 (11:31→20:05)
[2022-04-01] MEDS: hydroCHLOROthiazide 25 MG TABLET PO (11:31)
[2022-04-01] MEDS: HaloperidoL 5 MG TABLET PO ×2 (11:31→20:06)
[2022-04-01] MEDS: cloZAPine 100 MG TABLET PO ×2 (11:31→17:07)
[2022-04-01] MEDS: Prazosin HCL 1 MG CAPSULE 2 MG PO ×3 (11:42→20:06)
--- NOTE | 2022-04-01 13:02 | P.PNPSI_ITS ---
Subjective Subjective Date of Service: 04/01/22 Reason For Visit: psychotic disorder Subjective Notes: Conditional Voluntary Interim History: The nursing staff reported the patient has been compliant with treatment. Today we realized that all her orders were discontinue suddenly, we reordered all her p.r.n. medications and standing meds. On interview the patient denies new symptoms. Mental Status Exam Mental Status Exam Patient Appearance: Well Grooomed Patient Orientation: Person Level of Consciousness: Awake Patient Behavior: Cooperative Mood Description: Constricted Affect Description: Calm Patient Cognition Impaired: Yes Ability to Follow Directions: Good Speech Pattern: Clear Hallucinations: None Delusions: Paranoid Ideation Thought Process: Distracted Thought Content: positive for [place] and positive for [place] Judgement: Fair Diagnostics Vital Signs (24Hr): Vital Signs - 24 hr 03/31/22 18:00 Blood Pressure 110/52 L BMI result Body Mass Index 27.3 Labs Results: 01/22/22 08:07 03/30/22 08:03 Imaging Radiology Impressions: ITS Impressions Head CT 10/08/21 15:16 IMPRESSION: No acute intracranial pathology. Head CT 10/09/21 13:54 IMPRESSION: No acute intracranial pathology. Pelvic/Transvag US 10/13/21 09:24 IMPRESSION: Abnormally thickened endometrium for a postmenopausal patient measuring 0.9 cm. 3 x 2.7 x 3.7 cm mass in the posterior cervix. This may represent a fibroid. Slightly thickened trabeculated bladder wall. Head CT 10/20/21 08:18 IMPRESSION: No acute intracranial pathology. This critical result was discussed with Dr. Chu at 8:30 hours on 10/20/2021. It was ascertained that the content and urgency of the report was understood at the time of direct communication. Head CT 11/20/21 19:29 IMPRESSION: No acute intracranial pathology. Medications Medications Current Medications Acetaminophen (Acetaminophen 325 Mg Tablet) 650 mg PO Q6H PRN PRN Reason: Pain, Mild (Pain Scale 1-3) Apixaban (Apixaban 5 Mg Tablet) 5 mg PO BID [facility] Last Admin: 04/01/22 11:30 Dose: 5 mg Benztropine Mesylate (Benztropine Mesylate 1 Mg Tablet) 1 mg PO BID [facility] Last Admin: 04/01/22 11:31 Dose: 1 mg Bisacodyl (Bisacodyl 10 Mg Supp.Rect) 10 mg [place] DAILY PRN PRN Reason: Constipation Clozapine (Clozapine 100 Mg Tablet) 100 mg PO DAILY@1700 [facility] Last Admin: 03/31/22 16:06 Dose: 100 mg Clozapine (Clozapine 100 Mg Tablet) 300 mg PO BEDTIME [facility] Clozapine (Clozapine 100 Mg Tablet) 100 mg PO DAILY [facility] Last Admin: 04/01/22 11:31 Dose: 100 mg Desmopressin Acetate (Desmopressin Acetate 0.2 Mg Tablet) 0.2 mg PO BID [facility] Last Admin: 04/01/22 11:31 Dose: 0.2 mg Docusate Sodium (Docusate Sodium 100 Mg Capsule) 100 mg PO BID [facility] Haloperidol (Haloperidol 5 Mg Tablet) 5 mg PO BID [facility] Last Admin: 04/01/22 11:31 Dose: 5 mg Hydrochlorothiazide (Hydrochlorothiazide 25 Mg Tablet) 25 mg PO DAILY [facility]; Protocol Last Admin: 04/01/22 11:31 Dose: 25 mg Hydroxyzine HCl (Hydroxyzine Hcl 25 Mg Tablet) 25 mg PO TID PRN PRN Reason: Anxiety [place] Carbonate ([place] Carbonate 300 Mg Capsule) 300 mg PO BID [facility] Last Admin: 04/01/22 11:30 Dose: 300 mg Miconazole Nitrate (Miconazole Nitrate 2% Oint 57 Gm Oint...G.) 1 appl TOPICAL BID [facility]; Protocol Last Admin: 03/31/22 20:28 Dose: Not Given Mirtazapine (Mirtazapine 15 Mg Tablet) 15 mg PO BEDTIME [facility] Olanzapine (Olanzapine 10 Mg Vial) 10 mg IM TID PRN PRN Reason: refusal of PO Clozaril Last Admin: 03/25/22 21:35 Dose: 10 mg Prazosin HCl (Prazosin Hcl 1 Mg Capsule) 2 mg PO TID [facility]; Protocol Last Admin: 04/01/22 11:42 Dose: 2 mg Senna (Sennosides 8.6 Mg Tablet) 8.6 mg PO BEDTIME [facility] Trazodone HCl (Trazodone Hcl 25 Mg Halftab) 25 mg PO BEDTIME PRN PRN Reason: Insomnia Trolamine Salicylate (Trolamine Salicylate 10 % Cream 85 Gm Tube) 1 appl TOPICAL TID PRN; Protocol PRN Reason: Pain, Mild (Pain Scale 1-3) Allergies Allergies Allergy/AdvReac Type Severity Reaction Status Date / Time No Known Allergies Allergy Unverified 05/01/20 19:42 [No Known Allergies*] Assessment & Plan Assessment & Plan (1) Schizophrenia, paranoid, chronic with acute exacerbation: Status: Acute Code(s): F20.0 - Paranoid schizophrenia (2) Hypertension: Status: Acute Code(s): I10 - Essential (primary) hypertension (3) Dementia: Status: Acute Code(s): F03.90 - Unspecified dementia without behavioral disturbance Plan Elderly female with a long history of schizoaffective disorder bipolar type who was admitted into the facility for exacerbation of psychosis and mood lability. The patient is on Clozaril and apparently she has not been fully compliant with treatment. 11/21 slipped, hit head on 11/20, head CT reviewed and unremarkable. We did a MOCA and she is technically demented at this moment Plan 1. The patient at this moment is on 3 psychotics, Clozaril , Haldol and Invega Sustenna. 2. Discontinue Haldol 5 mg IM if the patient refuses Clozaril and replace with Zyprexa. 3. Lower total Clozaril to 500 mg a day. We will not continue with Invega Sustenna sings there is no improvement with 3 antipsychotics. We will keep her on Clozaril and Haldol p.o.. 4. Waiting for placement 5. Keep prazosin up to 2 mg p.o. t.i.d. to target nightmares since her blood pressure is stable I spent ___20___ minutes with the patient and/or on the patient floor today, greater than?50% of which was spent counseling/coordinating care. Reason for contiued inpatient stay Substantial Risk for: inability to function, rapid decompensation and med/psych decompensation
[2022-04-01 17:12] VITALS: BP 111/63; PULSE 88; RESP 18
[2022-04-01 18:00] VITALS: BP 132/58; PULSE 95; RESP 18; TEMP 36.9; O2SAT 96
[2022-04-01] MEDS: cloZAPine 100 MG TABLET 300 MG PO (20:05)
[2022-04-01] MEDS: Docusate Sodium 100 MG CAPSULE PO (20:06)
[2022-04-01] MEDS: Mirtazapine 15 MG TABLET PO (20:06)
[2022-04-01] MEDS: Sennosides 8.6 MG TABLET PO (20:07)
[2022-04-01] MEDS: Miconazole Nitrate 2% Oint 57 GM OINT...G. 1 APPL TOPICAL (20:13)
[2022-04-01] MEDS: Acetaminophen 325 MG TABLET 650 MG PO (22:35)
[2022-04-01] MEDS: hydrOXYzine HCL 25 MG TABLET PO (22:36)
[2022-04-01] MEDS: traZODone HCL 25 MG HALFTAB PO (22:36)
[2022-04-02 06:00] VITALS: BP 103/53; PULSE 74; RESP 16; TEMP 36.7; O2SAT 97
[2022-04-02 08:24] LABS: Neut%MD 68.7 %; Neutrophils Absolute Auto 5.3 x10*3/uL (2.0-8.3); WBCANC 7.7 X10*3/uL
[2022-04-02] MEDS: cloZAPine 100 MG TABLET PO ×2 (10:26→18:01)
[2022-04-02] MEDS: Desmopressin Acetate 0.2 MG TABLET PO (10:26)
[2022-04-02] MEDS: hydroCHLOROthiazide 25 MG TABLET PO (10:26)
[2022-04-02] MEDS: Apixaban 5 MG TABLET PO (10:26)
[2022-04-02] MEDS: HaloperidoL 5 MG TABLET PO (10:26)
[2022-04-02] MEDS: Prazosin HCL 1 MG CAPSULE 2 MG PO (10:26)
[2022-04-02] MEDS: Benztropine Mesylate 1 MG TABLET PO (10:27)
[2022-04-02] MEDS: Lithium Carbonate 300 MG CAPSULE PO (10:27)
[2022-04-02] MEDS: Docusate Sodium 100 MG CAPSULE PO (10:27)
--- NOTE | 2022-04-02 11:40 | P.PNPSI_ITS ---
Subjective Subjective Date of Service: 04/02/22 Reason For Visit: psychotic disorder Subjective Notes: Conditional Voluntary Interim History: The nursing staff reported that the patient was slightly restless yesterday. She had poor sleep last night. On interview the patient denies new symptoms, waiting for placement Mental Status Exam Mental Status Exam Patient Appearance: Appropriate Patient Orientation: Person and Situation Level of Consciousness: Awake Patient Behavior: Cooperative Mood Description: Withdrawn Affect Description: Withdrawn Patient Cognition Impaired: Yes Ability to Follow Directions: Good Speech Pattern: Clear Hallucinations: None Delusions: Paranoid Ideation Thought Process: Distracted Thought Content: positive for [place] Judgement: Fair Diagnostics Vital Signs (24Hr): Vital Signs - 24 hr 04/01/22 17:12 04/01/22 18:00 04/02/22 06:00 Temperature 98.4 F 98.0 F Pulse Rate 88 95 74 Respiratory Rate 18 18 16 Blood Pressure 111/63 132/58 L 103/53 L Pulse Oximetry 96 97 Oxygen Delivery Method Room Air Room Air BMI result Body Mass Index 27.3 Labs Results: 01/22/22 08:07 03/30/22 08:03 Labs: Laboratory Results - last 48 hr 04/02/22 08:08 Absolute Neuts (auto) 5.3 Imaging Radiology Impressions: ITS Impressions Head CT 10/08/21 15:16 IMPRESSION: No acute intracranial pathology. Head CT 10/09/21 13:54 IMPRESSION: No acute intracranial pathology. Pelvic/Transvag US 10/13/21 09:24 IMPRESSION: Abnormally thickened endometrium for a postmenopausal patient measuring 0.9 cm. 3 x 2.7 x 3.7 cm mass in the posterior cervix. This may represent a fibroid. Slightly thickened trabeculated bladder wall. Head CT 10/20/21 08:18 IMPRESSION: No acute intracranial pathology. This critical result was discussed with Dr. Chu at 8:30 hours on 10/20/2021. It was ascertained that the content and urgency of the report was understood at the time of direct communication. Head CT 11/20/21 19:29 IMPRESSION: No acute intracranial pathology. Medications Medications Current Medications Acetaminophen (Acetaminophen 325 Mg Tablet) 650 mg PO Q6H PRN PRN Reason: Pain, Mild (Pain Scale 1-3) Last Admin: 04/01/22 22:35 Dose: 650 mg Apixaban (Apixaban 5 Mg Tablet) 5 mg PO BID [facility] Last Admin: 04/02/22 10:26 Dose: 5 mg Benztropine Mesylate (Benztropine Mesylate 1 Mg Tablet) 1 mg PO BID [facility] Last Admin: 04/02/22 10:27 Dose: 1 mg Bisacodyl (Bisacodyl 10 Mg Supp.Rect) 10 mg [place] DAILY PRN PRN Reason: Constipation Clozapine (Clozapine 100 Mg Tablet) 100 mg PO DAILY@1700 [facility] Last Admin: 04/01/22 17:07 Dose: 100 mg Clozapine (Clozapine 100 Mg Tablet) 300 mg PO BEDTIME [facility] Last Admin: 04/01/22 20:05 Dose: 300 mg Clozapine (Clozapine 100 Mg Tablet) 100 mg PO DAILY [facility] Last Admin: 04/02/22 10:26 Dose: 100 mg Desmopressin Acetate (Desmopressin Acetate 0.2 Mg Tablet) 0.2 mg PO BID [facility] Last Admin: 04/02/22 10:26 Dose: 0.2 mg Docusate Sodium (Docusate Sodium 100 Mg Capsule) 100 mg PO BID [facility] Last Admin: 04/02/22 10:27 Dose: 100 mg Haloperidol (Haloperidol 5 Mg Tablet) 5 mg PO BID [facility] Last Admin: 04/02/22 10:26 Dose: 5 mg Hydrochlorothiazide (Hydrochlorothiazide 25 Mg Tablet) 25 mg PO DAILY [facility]; Protocol Last Admin: 04/02/22 10:26 Dose: 25 mg Hydroxyzine HCl (Hydroxyzine Hcl 25 Mg Tablet) 25 mg PO TID PRN PRN Reason: Anxiety Last Admin: 04/01/22 22:36 Dose: 25 mg [place] Carbonate ([place] Carbonate 300 Mg Capsule) 300 mg PO BID [facility] Last Admin: 04/02/22 10:27 Dose: 300 mg Miconazole Nitrate (Miconazole Nitrate 2% Oint 57 Gm Oint...G.) 1 appl TOPICAL BID [facility]; Protocol Last Admin: 04/02/22 10:27 Dose: Not Given Mirtazapine (Mirtazapine 15 Mg Tablet) 15 mg PO BEDTIME [facility] Last Admin: 04/01/22 20:06 Dose: 15 mg Olanzapine (Olanzapine 10 Mg Vial) 10 mg IM TID PRN PRN Reason: refusal of PO Clozaril Last Admin: 03/25/22 21:35 Dose: 10 mg Prazosin HCl (Prazosin Hcl 1 Mg Capsule) 2 mg PO TID [facility]; Protocol Last Admin: 04/02/22 10:26 Dose: 2 mg Senna (Sennosides 8.6 Mg Tablet) 8.6 mg PO BEDTIME [facility] Last Admin: 04/01/22 20:07 Dose: 8.6 mg Trazodone HCl (Trazodone Hcl 25 Mg Halftab) 25 mg PO BEDTIME PRN PRN Reason: Insomnia Last Admin: 04/01/22 22:36 Dose: 25 mg Trolamine Salicylate (Trolamine Salicylate 10 % Cream 85 Gm Tube) 1 appl TOPICAL TID PRN; Protocol PRN Reason: Pain, Mild (Pain Scale 1-3) Allergies Allergies Allergy/AdvReac Type Severity Reaction Status Date / Time No Known Allergies Allergy Unverified 05/01/20 19:42 [No Known Allergies*] Assessment & Plan Assessment & Plan (1) Schizophrenia, paranoid, chronic with acute exacerbation: Status: Acute Code(s): F20.0 - Paranoid schizophrenia (2) Hypertension: Status: Acute Code(s): I10 - Essential (primary) hypertension (3) Dementia: Status: Acute Code(s): F03.90 - Unspecified dementia without behavioral disturbance Plan Elderly female with a long history of schizoaffective disorder bipolar type who was admitted into the facility for exacerbation of psychosis and mood lability. The patient is on Clozaril and apparently she has not been fully compliant with treatment. 11/21 slipped, hit head on 11/20, head CT reviewed and unremarkable. We did a MOCA and she is technically demented at this moment Plan 1. The patient at this moment is on 3 psychotics, Clozaril , Haldol and Invega Sustenna. 2. Discontinue Haldol 5 mg IM if the patient refuses Clozaril and replace with Zyprexa. 3. Lower total Clozaril to 500 mg a day. We will not continue with Invega Sustenna sings there is no improvement with 3 antipsychotics. We will keep her on Clozaril and Haldol p.o.. 4. Waiting for placement 5. Keep prazosin up to 2 mg p.o. t.i.d. to target nightmares since her blood pressure is stable I spent ___20___ minutes with the patient and/or on the patient floor today, greater than?50% of which was spent counseling/coordinating care. Reason for contiued inpatient stay Substantial Risk for: inability to function, rapid decompensation and med/psych decompensation
[2022-04-02 18:00] VITALS: BP 130/62; PULSE 86; RESP 16; TEMP 36.6; O2SAT 100
[2022-04-02] MEDS: cloZAPine 100 MG TABLET 300 MG PO (21:01)
[2022-04-02] MEDS: traZODone HCL 25 MG HALFTAB PO (21:07)
[2022-04-03 08:00] VITALS: BP 107/59; PULSE 83; RESP 16; TEMP 36.4; O2SAT 93
[2022-04-03] MEDS: cloZAPine 100 MG TABLET PO ×2 (09:39→16:02)
[2022-04-03] MEDS: Apixaban 5 MG TABLET PO ×2 (09:39→20:24)
[2022-04-03] MEDS: Docusate Sodium 100 MG CAPSULE PO (09:40)
[2022-04-03] MEDS: hydroCHLOROthiazide 25 MG TABLET PO (09:40)
[2022-04-03] MEDS: Desmopressin Acetate 0.2 MG TABLET PO ×2 (09:40→20:21)
[2022-04-03] MEDS: Prazosin HCL 1 MG CAPSULE 2 MG PO ×2 (09:40→16:02)
[2022-04-03] MEDS: HaloperidoL 5 MG TABLET PO (09:40)
[2022-04-03] MEDS: Lithium Carbonate 300 MG CAPSULE PO ×2 (09:41→20:21)
[2022-04-03] MEDS: Benztropine Mesylate 1 MG TABLET PO ×2 (09:41→20:24)
[2022-04-03 18:00] VITALS: BP 95/49; PULSE 90; RESP 16; TEMP 36.2; O2SAT 98
[2022-04-03] MEDS: cloZAPine 100 MG TABLET 300 MG PO (20:24)
[2022-04-03] MEDS: Mirtazapine 15 MG TABLET PO (20:24)
--- NOTE | 2022-04-03 23:20 | P.PNPSI_ITS ---
Subjective Subjective Date of Service: 04/03/22 Reason For Visit: psychotic disorder Interim History: staff reports pt yelling in her room this morning, banging on her windows; she was redirectable however. Pt says she's not good' upon inquiry patient says when is she going to be able to get out of here. She accepts that she can talk to Dr. Ward on Tuesday. took all meds today. Mental Status Exam Mental Status Exam Patient Appearance: Appropriate Patient Orientation: Person and Place Level of Consciousness: Awake Patient Behavior: Cooperative Mood Description: Withdrawn Affect Description: Withdrawn Patient Cognition Impaired: Yes Ability to Follow Directions: Good Speech Pattern: Clear Hallucinations: None Delusions: Paranoid Ideation Thought Process: Distracted Thought Content: positive for [place] Judgement: Fair Diagnostics Vital Signs (24Hr): Vital Signs - 24 hr 04/03/22 08:00 04/03/22 18:00 Temperature 97.6 F 97.1 F Pulse Rate 83 90 Respiratory Rate 16 16 Blood Pressure 107/59 L 95/49 L Pulse Oximetry 93 98 Oxygen Delivery Method Room Air Room Air BMI result Body Mass Index 27.3 Labs Results: 01/22/22 08:07 03/30/22 08:03 Labs: Laboratory Results - last 48 hr 04/02/22 08:08 Absolute Neuts (auto) 5.3 Imaging Radiology Impressions: ITS Impressions Head CT 10/08/21 15:16 IMPRESSION: No acute intracranial pathology. Head CT 10/09/21 13:54 IMPRESSION: No acute intracranial pathology. Pelvic/Transvag US 10/13/21 09:24 IMPRESSION: Abnormally thickened endometrium for a postmenopausal patient measuring 0.9 cm. 3 x 2.7 x 3.7 cm mass in the posterior cervix. This may represent a fibroid. Slightly thickened trabeculated bladder wall. Head CT 10/20/21 08:18 IMPRESSION: No acute intracranial pathology. This critical result was discussed with Dr. Chu at 8:30 hours on 10/20/2021. It was ascertained that the content and urgency of the report was understood at the time of direct communication. Head CT 11/20/21 19:29 IMPRESSION: No acute intracranial pathology. Medications Medications Current Medications Acetaminophen (Acetaminophen 325 Mg Tablet) 650 mg PO Q6H PRN PRN Reason: Pain, Mild (Pain Scale 1-3) Last Admin: 04/01/22 22:35 Dose: 650 mg Apixaban (Apixaban 5 Mg Tablet) 5 mg PO BID [facility] Last Admin: 04/03/22 20:24 Dose: 5 mg Benztropine Mesylate (Benztropine Mesylate 1 Mg Tablet) 1 mg PO BID [facility] Last Admin: 04/03/22 20:24 Dose: 1 mg Bisacodyl (Bisacodyl 10 Mg Supp.Rect) 10 mg [place] DAILY PRN PRN Reason: Constipation Clozapine (Clozapine 100 Mg Tablet) 100 mg PO DAILY@1700 [facility] Last Admin: 04/03/22 16:02 Dose: 100 mg Clozapine (Clozapine 100 Mg Tablet) 300 mg PO BEDTIME [facility] Last Admin: 04/03/22 20:24 Dose: 300 mg Clozapine (Clozapine 100 Mg Tablet) 100 mg PO DAILY [facility] Last Admin: 04/03/22 09:39 Dose: 100 mg Desmopressin Acetate (Desmopressin Acetate 0.2 Mg Tablet) 0.2 mg PO BID [facility] Last Admin: 04/03/22 20:21 Dose: 0.2 mg Docusate Sodium (Docusate Sodium 100 Mg Capsule) 100 mg PO BID [facility] Last Admin: 04/03/22 21:01 Dose: Not Given Haloperidol (Haloperidol 5 Mg Tablet) 5 mg PO BID [facility] Last Admin: 04/03/22 21:01 Dose: Not Given Hydrochlorothiazide (Hydrochlorothiazide 25 Mg Tablet) 25 mg PO DAILY [facility]; Protocol Last Admin: 04/03/22 09:40 Dose: 25 mg Hydroxyzine HCl (Hydroxyzine Hcl 25 Mg Tablet) 25 mg PO TID PRN PRN Reason: Anxiety Last Admin: 04/01/22 22:36 Dose: 25 mg [place] Carbonate ([place] Carbonate 300 Mg Capsule) 300 mg PO BID [facility] Last Admin: 04/03/22 20:21 Dose: 300 mg Miconazole Nitrate (Miconazole Nitrate 2% Oint 57 Gm Oint...G.) 1 appl TOPICAL BID [facility]; Protocol Last Admin: 04/03/22 21:01 Dose: Not Given Mirtazapine (Mirtazapine 15 Mg Tablet) 15 mg PO BEDTIME [facility] Last Admin: 04/03/22 20:24 Dose: 15 mg Olanzapine (Olanzapine 10 Mg Vial) 10 mg IM TID PRN PRN Reason: refusal of PO Clozaril Last Admin: 03/25/22 21:35 Dose: 10 mg Prazosin HCl (Prazosin Hcl 1 Mg Capsule) 2 mg PO TID [facility]; Protocol Last Admin: 04/03/22 21:00 Dose: Not Given Senna (Sennosides 8.6 Mg Tablet) 8.6 mg PO BEDTIME [facility] Last Admin: 04/03/22 21:01 Dose: Not Given Trazodone HCl (Trazodone Hcl 25 Mg Halftab) 25 mg PO BEDTIME PRN PRN Reason: Insomnia Last Admin: 04/02/22 21:07 Dose: 25 mg Trolamine Salicylate (Trolamine Salicylate 10 % Cream 85 Gm Tube) 1 appl TOPICAL TID PRN; Protocol PRN Reason: Pain, Mild (Pain Scale 1-3) Allergies Allergies Allergy/AdvReac Type Severity Reaction Status Date / Time No Known Allergies Allergy Unverified 05/01/20 19:42 [No Known Allergies*] Assessment & Plan Assessment & Plan (1) Schizophrenia, paranoid, chronic with acute exacerbation: Status: Acute Code(s): F20.0 - Paranoid schizophrenia (2) Hypertension: Status: Acute Code(s): I10 - Essential (primary) hypertension (3) Dementia: Status: Acute Code(s): F03.90 - Unspecified dementia without behavioral disturbance Plan Elderly female with a long history of schizoaffective disorder bipolar type who was admitted into the facility for exacerbation of psychosis and mood lability. The patient is on Clozaril and apparently she has not been fully compliant with treatment. 11/21 slipped, hit head on 11/20, head CT reviewed and unremarkable. We did a MOCA and she is technically demented at this moment 04/03 continue current treatment Plan 1. The patient at this moment is on 3 psychotics, Clozaril , Haldol and Invega Sustenna. 2. Discontinue Haldol 5 mg IM if the patient refuses Clozaril and replace with Zyprexa. 3. Lower total Clozaril to 500 mg a day. We will not continue with Invega Sustenna sings there is no improvement with 3 antipsychotics. We will keep her on Clozaril and Haldol p.o.. 4. Waiting for placement 5. Keep prazosin up to 2 mg p.o. t.i.d. to target nightmares since her blood pressure is stable I spent minutes with the patient and/or on the patient floor today, greater than?50% of which was spent counseling/coordinating care. Reason for contiued inpatient stay Substantial Risk for: med/psych decompensation
[2022-04-04 07:45] VITALS: BP 108/58; PULSE 77; RESP 16; TEMP 35.9; O2SAT 98
[2022-04-04] MEDS: Miconazole Nitrate 2% Oint 57 GM OINT...G. 1 APPL TOPICAL (09:48)
[2022-04-04] MEDS: Desmopressin Acetate 0.2 MG TABLET PO ×2 (09:49→20:24)
[2022-04-04] MEDS: Apixaban 5 MG TABLET PO ×2 (09:49→20:24)
[2022-04-04] MEDS: hydroCHLOROthiazide 25 MG TABLET PO (09:49)
[2022-04-04] MEDS: HaloperidoL 5 MG TABLET PO ×2 (09:49→20:24)
[2022-04-04] MEDS: cloZAPine 100 MG TABLET PO ×2 (09:49→16:22)
[2022-04-04] MEDS: Lithium Carbonate 300 MG CAPSULE PO ×2 (09:49→20:23)
[2022-04-04] MEDS: Prazosin HCL 1 MG CAPSULE 2 MG PO ×3 (09:49→20:23)
[2022-04-04] MEDS: Docusate Sodium 100 MG CAPSULE PO ×2 (09:50→20:24)
[2022-04-04] MEDS: Benztropine Mesylate 1 MG TABLET PO ×2 (09:50→20:24)
[2022-04-04 12:00] VITALS: BP 121/79; PULSE 104; O2SAT 95
--- NOTE | 2022-04-04 12:17 | PC.NURSE ---
Addendum entered and electronically signed by Bridgett Ahn RN 04/04/22 15:52: Dr Nails notified. Original Note: Pt was being assisted into chair in community area by OT and receiving verbal cues to complete sitting back in chair by another staff member at 1155. Pt not accepting cueing/direction well, displaying irritation. Pt pitched herself forward and out of chair. OT held pt by her arm and leaned forward to lower pt slowly to floor. Pt lowered to floor resting on left hip and left shoulder by OT. No apparent injuries noted, no c/o discomfort. Bp 121/79, P 104 O2 sat 95% rm air. Park Collado NP, notified. One to one observation initiated. Nursing wood room supervisor, Meredith Pope, notified.
[2022-04-04 18:00] VITALS: BP 109/56; PULSE 89; RESP 17; TEMP 36.5; O2SAT 97
[2022-04-04] MEDS: cloZAPine 100 MG TABLET 300 MG PO (20:23)
[2022-04-04] MEDS: Sennosides 8.6 MG TABLET PO (20:24)
[2022-04-04] MEDS: Mirtazapine 15 MG TABLET PO (20:24)
--- NOTE | 2022-04-04 23:37 | P.PNPSI_ITS ---
Subjective Subjective Date of Service: 04/04/22 Reason For Visit: psychotic disorder Interim History: Patient dressed in bright colored outfit and smiling on approach. Friendly. She says she is doing good and asks when she will be able to get out of here. Again accepts to talk to primary provider on Tuesday. Mental Status Exam Mental Status Exam Patient Appearance: Appropriate Patient Orientation: Person and Place Level of Consciousness: Awake Patient Behavior: Cooperative Mood Description: Withdrawn Affect Description: Withdrawn Patient Cognition Impaired: Yes Ability to Follow Directions: Good Speech Pattern: Clear Hallucinations: None Delusions: Paranoid Ideation Thought Process: Distracted Thought Content: positive for [place] Judgement: Fair Diagnostics Vital Signs (24Hr): Vital Signs - 24 hr 04/04/22 07:45 04/04/22 12:00 04/04/22 18:00 Temperature 96.7 F L 97.7 F Pulse Rate 77 104 H 89 Respiratory Rate 16 17 Blood Pressure 108/58 L 121/79 109/56 L Pulse Oximetry 98 95 97 Oxygen Delivery Method Room Air Room Air Room Air BMI result Body Mass Index 27.3 Labs Results: 01/22/22 08:07 03/30/22 08:03 Imaging Radiology Impressions: ITS Impressions Head CT 10/08/21 15:16 IMPRESSION: No acute intracranial pathology. Head CT 10/09/21 13:54 IMPRESSION: No acute intracranial pathology. Pelvic/Transvag US 10/13/21 09:24 IMPRESSION: Abnormally thickened endometrium for a postmenopausal patient measuring 0.9 cm. 3 x 2.7 x 3.7 cm mass in the posterior cervix. This may represent a fibroid. Slightly thickened trabeculated bladder wall. Head CT 10/20/21 08:18 IMPRESSION: No acute intracranial pathology. This critical result was discussed with Dr. Chu at 8:30 hours on 10/20/2021. It was ascertained that the content and urgency of the report was understood at the time of direct communication. Head CT 11/20/21 19:29 IMPRESSION: No acute intracranial pathology. Medications Medications Current Medications Acetaminophen (Acetaminophen 325 Mg Tablet) 650 mg PO Q6H PRN PRN Reason: Pain, Mild (Pain Scale 1-3) Last Admin: 04/01/22 22:35 Dose: 650 mg Apixaban (Apixaban 5 Mg Tablet) 5 mg PO BID [facility] Last Admin: 04/04/22 20:24 Dose: 5 mg Benztropine Mesylate (Benztropine Mesylate 1 Mg Tablet) 1 mg PO BID [facility] Last Admin: 04/04/22 20:24 Dose: 1 mg Bisacodyl (Bisacodyl 10 Mg Supp.Rect) [address] DAILY PRN PRN Reason: Constipation Clozapine (Clozapine 100 Mg Tablet) 100 mg PO DAILY@1700 [facility] Last Admin: 04/04/22 16:22 Dose: 100 mg Clozapine (Clozapine 100 Mg Tablet) 300 mg PO BEDTIME [facility] Last Admin: 04/04/22 20:23 Dose: 300 mg Clozapine (Clozapine 100 Mg Tablet) 100 mg PO DAILY [facility] Last Admin: 04/04/22 09:49 Dose: 100 mg Desmopressin Acetate (Desmopressin Acetate 0.2 Mg Tablet) 0.2 mg PO BID [facility] Last Admin: 04/04/22 20:24 Dose: 0.2 mg Docusate Sodium (Docusate Sodium 100 Mg Capsule) 100 mg PO BID [facility] Last Admin: 04/04/22 20:24 Dose: 100 mg Haloperidol (Haloperidol 5 Mg Tablet) 5 mg PO BID [facility] Last Admin: 04/04/22 20:24 Dose: 5 mg Hydrochlorothiazide (Hydrochlorothiazide 25 Mg Tablet) 25 mg PO DAILY [facility]; Protocol Last Admin: 04/04/22 09:49 Dose: 25 mg Hydroxyzine HCl (Hydroxyzine Hcl 25 Mg Tablet) 25 mg PO TID PRN PRN Reason: Anxiety Last Admin: 04/01/22 22:36 Dose: 25 mg [place] Carbonate ([place] Carbonate 300 Mg Capsule) 300 mg PO BID [facility] Last Admin: 04/04/22 20:23 Dose: 300 mg Miconazole Nitrate (Miconazole Nitrate 2% Oint 57 Gm Oint...G.) 1 appl TOPICAL BID [facility]; Protocol Last Admin: 04/04/22 20:27 Dose: Not Given Mirtazapine (Mirtazapine 15 Mg Tablet) 15 mg PO BEDTIME [facility] Last Admin: 04/04/22 20:24 Dose: 15 mg Olanzapine (Olanzapine 10 Mg Vial) 10 mg IM TID PRN PRN Reason: refusal of PO Clozaril Last Admin: 03/25/22 21:35 Dose: 10 mg Prazosin HCl (Prazosin Hcl 1 Mg Capsule) 2 mg PO TID [facility]; Protocol Last Admin: 04/04/22 20:23 Dose: 2 mg Senna (Sennosides 8.6 Mg Tablet) 8.6 mg PO BEDTIME [facility] Last Admin: 04/04/22 20:24 Dose: 8.6 mg Trazodone HCl (Trazodone Hcl 25 Mg Halftab) 25 mg PO BEDTIME PRN PRN Reason: Insomnia Last Admin: 04/02/22 21:07 Dose: 25 mg Trolamine Salicylate (Trolamine Salicylate 10 % Cream 85 Gm Tube) 1 appl TOPICAL TID PRN; Protocol PRN Reason: Pain, Mild (Pain Scale 1-3) Allergies Allergies Allergy/AdvReac Type Severity Reaction Status Date / Time No Known Allergies Allergy Unverified 05/01/20 19:42 [No Known Allergies*] Assessment & Plan Assessment & Plan (1) Schizophrenia, paranoid, chronic with acute exacerbation: Status: Acute Code(s): F20.0 - Paranoid schizophrenia (2) Hypertension: Status: Acute Code(s): I10 - Essential (primary) hypertension (3) Dementia: Status: Acute Code(s): F03.90 - Unspecified dementia without behavioral disturbance Plan Elderly female with a long history of schizoaffective disorder bipolar type who was admitted into the facility for exacerbation of psychosis and mood lability. The patient is on Clozaril and apparently she has not been fully compliant with treatment. 11/21 slipped, hit head on 11/20, head CT reviewed and unremarkable. We did a MOCA and she is technically demented at this moment 04/03 continue current treatment 04/04 continue current treatment Plan 1. The patient at this moment is on 3 psychotics, Clozaril , Haldol and Invega Sustenna. 2. Discontinue Haldol 5 mg IM if the patient refuses Clozaril and replace with Zyprexa. 3. Lower total Clozaril to 500 mg a day. We will not continue with Invega Sustenna sings there is no improvement with 3 antipsychotics. We will keep her on Clozaril and Haldol p.o.. 4. Waiting for placement 5. Keep prazosin up to 2 mg p.o. t.i.d. to target nightmares since her blood pressure is stable I spent minutes with the patient and/or on the patient floor today, greater than?50% of which was spent counseling/coordinating care. Reason for contiued inpatient stay Substantial Risk for: med/psych decompensation
[2022-04-05] MEDS: OLANZapine 10 MG VIAL IM (09:35)
[2022-04-05 09:54] VITALS: BP 108/68; PULSE 78; RESP 16; TEMP 36.1; O2SAT 96
[2022-04-05] MEDS: OLANZapine 5 MG TABLET PO ×2 (14:23→23:44)
--- NOTE | 2022-04-05 15:56 | HO.PSYCHPN ---
Subjective Subjective Date of Service: 04/05/22 Reason For Visit: psychotic disorder Subjective Notes: Conditional Voluntary Interim History: The nursing staff reported the patient has tried to refuse her medications last night but eventually she took it even though that she knew that she has a backup on Zyprexa IM. On interview the patient reported that she was to go home but this moment we do not have a safe discharge plan yet, since she was refused by several facilities. Mental Status Exam Mental Status Exam Patient Appearance: Well Grooomed Patient Orientation: Person and Situation Level of Consciousness: Awake Patient Behavior: Cooperative Mood Description: Calm Affect Description: Constricted Patient Cognition Impaired: Yes Ability to Follow Directions: Good Speech Pattern: Clear Hallucinations: None Delusions: Paranoid Ideation Thought Process: Distracted Thought Content: positive for [place] Judgement: Fair Diagnostics Vital Signs (24Hr): Vital Signs - 24 hr 04/04/22 18:00 04/05/22 09:54 Temperature 97.7 F 96.9 F Pulse Rate 89 78 Respiratory Rate 17 16 Blood Pressure 109/56 L 108/68 Pulse Oximetry 97 96 Oxygen Delivery Method Room Air Room Air BMI result Body Mass Index 27.3 Labs Results: 01/22/22 08:07 03/30/22 08:03 Imaging Radiology Impressions: ITS Impressions Head CT 10/08/21 15:16 IMPRESSION: No acute intracranial pathology. Head CT 10/09/21 13:54 IMPRESSION: No acute intracranial pathology. Pelvic/Transvag US 10/13/21 09:24 IMPRESSION: Abnormally thickened endometrium for a postmenopausal patient measuring 0.9 cm. 3 x 2.7 x 3.7 cm mass in the posterior cervix. This may represent a fibroid. Slightly thickened trabeculated bladder wall. Head CT 10/20/21 08:18 IMPRESSION: No acute intracranial pathology. This critical result was discussed with Dr. Chu at 8:30 hours on 10/20/2021. It was ascertained that the content and urgency of the report was understood at the time of direct communication. Head CT 11/20/21 19:29 IMPRESSION: No acute intracranial pathology. Medications Medications Current Medications Acetaminophen (Acetaminophen 325 Mg Tablet) 650 mg PO Q6H PRN PRN Reason: Pain, Mild (Pain Scale 1-3) Last Admin: 04/01/22 22:35 Dose: 650 mg Apixaban (Apixaban 5 Mg Tablet) 5 mg PO BID [facility] Last Admin: 04/05/22 09:46 Dose: Not Given Benztropine Mesylate (Benztropine Mesylate 1 Mg Tablet) 1 mg PO BID [facility] Last Admin: 04/05/22 09:46 Dose: Not Given Bisacodyl (Bisacodyl 10 Mg Supp.Rect) 10 mg [place] DAILY PRN PRN Reason: Constipation Clozapine (Clozapine 100 Mg Tablet) 100 mg PO DAILY@1700 [facility] Last Admin: 04/04/22 16:22 Dose: 100 mg Clozapine (Clozapine 100 Mg Tablet) 300 mg PO BEDTIME [facility] Last Admin: 04/04/22 20:23 Dose: 300 mg Clozapine (Clozapine 100 Mg Tablet) 100 mg PO DAILY [facility] Last Admin: 04/05/22 09:46 Dose: Not Given Desmopressin Acetate (Desmopressin Acetate 0.2 Mg Tablet) 0.2 mg PO BID [facility] Last Admin: 04/05/22 09:46 Dose: Not Given Docusate Sodium (Docusate Sodium 100 Mg Capsule) 100 mg PO BID [facility] Last Admin: 04/05/22 09:46 Dose: Not Given Haloperidol (Haloperidol 5 Mg Tablet) 5 mg PO BID [facility] Last Admin: 04/05/22 09:46 Dose: Not Given Hydrochlorothiazide (Hydrochlorothiazide 25 Mg Tablet) 25 mg PO DAILY [facility]; Protocol Last Admin: 04/05/22 09:46 Dose: Not Given Hydroxyzine HCl (Hydroxyzine Hcl 25 Mg Tablet) 25 mg PO TID PRN PRN Reason: Anxiety Last Admin: 04/01/22 22:36 Dose: 25 mg [place] Carbonate ([place] Carbonate 300 Mg Capsule) 300 mg PO BID [facility] Last Admin: 04/05/22 09:46 Dose: Not Given Miconazole Nitrate (Miconazole Nitrate 2% Oint 57 Gm Oint...G.) 1 appl TOPICAL BID [facility]; Protocol Last Admin: 04/05/22 09:46 Dose: Not Given Mirtazapine (Mirtazapine 15 Mg Tablet) 15 mg PO BEDTIME [facility] Last Admin: 04/04/22 20:24 Dose: 15 mg Olanzapine (Olanzapine 10 Mg Vial) 10 mg IM TID PRN PRN Reason: refusal of PO Clozaril Last Admin: 04/05/22 09:35 Dose: 10 mg Olanzapine (Olanzapine 5 Mg Tablet) 5 mg PO Q4H PRN PRN Reason: Psychosis Last Admin: 04/05/22 14:23 Dose: 5 mg Prazosin HCl (Prazosin Hcl 1 Mg Capsule) 2 mg PO TID [facility]; Protocol Last Admin: 04/05/22 09:47 Dose: Not Given Senna (Sennosides 8.6 Mg Tablet) 8.6 mg PO BEDTIME [facility] Last Admin: 04/04/22 20:24 Dose: 8.6 mg Trazodone HCl (Trazodone Hcl 25 Mg Halftab) 25 mg PO BEDTIME PRN PRN Reason: Insomnia Last Admin: 04/02/22 21:07 Dose: 25 mg Trolamine Salicylate (Trolamine Salicylate 10 % Cream 85 Gm Tube) 1 appl TOPICAL TID PRN; Protocol PRN Reason: Pain, Mild (Pain Scale 1-3) Allergies Allergies Allergy/AdvReac Type Severity Reaction Status Date / Time No Known Allergies Allergy Unverified 05/01/20 19:42 [No Known Allergies*] Assessment & Plan Assessment & Plan (1) Schizophrenia, paranoid, chronic with acute exacerbation: Status: Acute Code(s): F20.0 - Paranoid schizophrenia (2) Hypertension: Status: Acute Code(s): I10 - Essential (primary) hypertension (3) Dementia: Status: Acute Code(s): F03.90 - Unspecified dementia without behavioral disturbance Plan Elderly female with a long history of schizoaffective disorder bipolar type who was admitted into the facility for exacerbation of psychosis and mood lability. The patient is on Clozaril and apparently she has not been fully compliant with treatment. 11/21 slipped, hit head on 11/20, head CT reviewed and unremarkable. We did a MOCA and she is technically demented at this moment 04/03 continue current treatment 04/04 continue current treatment Plan 1. The patient at this moment is on 3 psychotics, Clozaril , Haldol and Invega Sustenna. 2. Discontinue Haldol 5 mg IM if the patient refuses Clozaril and replace with Zyprexa. 3. Lower total Clozaril to 500 mg a day. We will not continue with Invega Sustenna sings there is no improvement with 3 antipsychotics. We will keep her on Clozaril and Haldol p.o.. 4. Waiting for placement 5. Keep prazosin up to 2 mg p.o. t.i.d. to target nightmares since her blood pressure is stable I spent ___20___ minutes with the patient and/or on the patient floor today, greater than?50% of which was spent counseling/coordinating care. Reason for contiued inpatient stay Substantial Risk for: inability to function, rapid decompensation and med/psych decompensation
[2022-04-05 16:00] VITALS: BP 110/70; PULSE 85
[2022-04-05] MEDS: Prazosin HCL 1 MG CAPSULE 2 MG PO ×2 (16:09→19:30)
[2022-04-05] MEDS: cloZAPine 100 MG TABLET PO (16:09)
[2022-04-05 18:00] VITALS: BP 126/58; PULSE 87; RESP 16; TEMP 36.5; O2SAT 98
[2022-04-05] MEDS: Benztropine Mesylate 1 MG TABLET PO (19:28)
[2022-04-05] MEDS: Apixaban 5 MG TABLET PO (19:28)
[2022-04-05] MEDS: Desmopressin Acetate 0.2 MG TABLET PO (19:29)
[2022-04-05] MEDS: HaloperidoL 5 MG TABLET PO (19:29)
[2022-04-05] MEDS: Docusate Sodium 100 MG CAPSULE PO (19:29)
[2022-04-05] MEDS: cloZAPine 100 MG TABLET 300 MG PO (19:29)
[2022-04-05] MEDS: Lithium Carbonate 300 MG CAPSULE PO (19:29)
[2022-04-05] MEDS: Mirtazapine 15 MG TABLET PO (19:30)
[2022-04-05] MEDS: Miconazole Nitrate 2% Oint 57 GM OINT...G. 1 APPL TOPICAL (19:30)
[2022-04-05] MEDS: Sennosides 8.6 MG TABLET PO (19:30)
[2022-04-05] MEDS: traZODone HCL 25 MG HALFTAB PO (23:44)
[2022-04-06 08:00] VITALS: BP 127/94; PULSE 104; RESP 16; TEMP 36.2; O2SAT 97
[2022-04-06] MEDS: Miconazole Nitrate 2% Oint 57 GM OINT...G. 1 APPL TOPICAL (09:35)
[2022-04-06] MEDS: Lithium Carbonate 300 MG CAPSULE PO ×2 (09:35→20:45)
[2022-04-06] MEDS: Benztropine Mesylate 1 MG TABLET PO ×2 (09:35→20:45)
[2022-04-06] MEDS: cloZAPine 100 MG TABLET PO ×2 (09:35→16:02)
[2022-04-06] MEDS: HaloperidoL 5 MG TABLET PO ×2 (09:35→20:45)
[2022-04-06] MEDS: Desmopressin Acetate 0.2 MG TABLET PO ×2 (09:35→20:45)
[2022-04-06] MEDS: Docusate Sodium 100 MG CAPSULE PO ×2 (09:35→20:45)
[2022-04-06] MEDS: hydroCHLOROthiazide 25 MG TABLET PO (09:35)
[2022-04-06] MEDS: Apixaban 5 MG TABLET PO ×2 (09:36→20:45)
[2022-04-06] MEDS: Prazosin HCL 1 MG CAPSULE 2 MG PO ×3 (09:36→20:46)
--- NOTE | 2022-04-06 16:59 | HO.PSYCHPN ---
Subjective Subjective Date of Service: 04/06/22 Reason For Visit: psychotic disorder Subjective Notes: Conditional Voluntary Interim History: The patient was agitated yesterday, the staff reported that she received several PRNs with limited effect. On interview the patient denies new symptoms she looks internally preoccupied. Mental Status Exam Mental Status Exam Patient Appearance: Well Grooomed Patient Orientation: Person and Situation Level of Consciousness: Awake Patient Behavior: Cooperative Mood Description: Constricted Affect Description: Labile Patient Cognition Impaired: Yes Ability to Follow Directions: Good Speech Pattern: Clear Hallucinations: None Delusions: Paranoid Ideation Thought Process: Distracted Thought Content: positive for Circumstantial Judgement: Fair Diagnostics Vital Signs (24Hr): Vital Signs - 24 hr 04/05/22 18:00 04/06/22 08:00 Temperature 97.7 F 97.2 F Pulse Rate 87 104 H Respiratory Rate 16 16 Blood Pressure 126/58 L 127/94 H Pulse Oximetry 98 97 Oxygen Delivery Method Room Air Room Air BMI result Body Mass Index 27.3 Labs Results: 01/22/22 08:07 03/30/22 08:03 Imaging Radiology Impressions: ITS Impressions Head CT 10/08/21 15:16 IMPRESSION: No acute intracranial pathology. Head CT 10/09/21 13:54 IMPRESSION: No acute intracranial pathology. Pelvic/Transvag US 10/13/21 09:24 IMPRESSION: Abnormally thickened endometrium for a postmenopausal patient measuring 0.9 cm. 3 x 2.7 x 3.7 cm mass in the posterior cervix. This may represent a fibroid. Slightly thickened trabeculated bladder wall. Head CT 10/20/21 08:18 IMPRESSION: No acute intracranial pathology. This critical result was discussed with Dr. Chu at 8:30 hours on 10/20/2021. It was ascertained that the content and urgency of the report was understood at the time of direct communication. Head CT 11/20/21 19:29 IMPRESSION: No acute intracranial pathology. Medications Medications Current Medications Acetaminophen (Acetaminophen 325 Mg Tablet) 650 mg PO Q6H PRN PRN Reason: Pain, Mild (Pain Scale 1-3) Last Admin: 04/01/22 22:35 Dose: 650 mg Apixaban (Apixaban 5 Mg Tablet) 5 mg PO BID [facility] Last Admin: 04/06/22 09:36 Dose: 5 mg Benztropine Mesylate (Benztropine Mesylate 1 Mg Tablet) 1 mg PO BID [facility] Last Admin: 04/06/22 09:35 Dose: 1 mg Bisacodyl (Bisacodyl 10 Mg Supp.Rect) 10 mg ID DAILY PRN PRN Reason: Constipation Clozapine (Clozapine 100 Mg Tablet) 100 mg PO DAILY@1700 [facility] Last Admin: 04/06/22 16:02 Dose: 100 mg Clozapine (Clozapine 100 Mg Tablet) 300 mg PO BEDTIME [facility] Last Admin: 04/05/22 19:29 Dose: 300 mg Clozapine (Clozapine 100 Mg Tablet) 100 mg PO DAILY [facility] Last Admin: 04/06/22 09:35 Dose: 100 mg Desmopressin Acetate (Desmopressin Acetate 0.2 Mg Tablet) 0.2 mg PO BID [facility] Last Admin: 04/06/22 09:35 Dose: 0.2 mg Docusate Sodium (Docusate Sodium 100 Mg Capsule) 100 mg PO BID [facility] Last Admin: 04/06/22 09:35 Dose: 100 mg Haloperidol (Haloperidol 5 Mg Tablet) 5 mg PO BID [facility] Last Admin: 04/06/22 09:35 Dose: 5 mg Hydrochlorothiazide (Hydrochlorothiazide 25 Mg Tablet) 25 mg PO DAILY [facility]; Protocol Last Admin: 04/06/22 09:35 Dose: 25 mg Hydroxyzine HCl (Hydroxyzine Hcl 25 Mg Tablet) 25 mg PO TID PRN PRN Reason: Anxiety Last Admin: 04/01/22 22:36 Dose: 25 mg [place] Carbonate ([place] Carbonate 300 Mg Capsule) 300 mg PO BID [facility] Last Admin: 04/06/22 09:35 Dose: 300 mg Miconazole Nitrate (Miconazole Nitrate 2% Oint 57 Gm Oint...G.) 1 appl TOPICAL BID [facility]; Protocol Last Admin: 04/06/22 09:35 Dose: 1 appl Mirtazapine (Mirtazapine 15 Mg Tablet) 15 mg PO BEDTIME [facility] Last Admin: 04/05/22 19:30 Dose: 15 mg Olanzapine (Olanzapine 10 Mg Vial) 10 mg IM TID PRN PRN Reason: refusal of PO Clozaril Last Admin: 04/05/22 09:35 Dose: 10 mg Olanzapine (Olanzapine 5 Mg Tablet) 5 mg PO Q4H PRN PRN Reason: Psychosis Last Admin: 04/05/22 23:44 Dose: 5 mg Prazosin HCl (Prazosin Hcl 1 Mg Capsule) 2 mg PO TID [facility]; Protocol Last Admin: 04/06/22 15:54 Dose: 2 mg Senna (Sennosides 8.6 Mg Tablet) 8.6 mg PO BEDTIME [facility] Last Admin: 04/05/22 19:30 Dose: 8.6 mg Trazodone HCl (Trazodone Hcl 25 Mg Halftab) 25 mg PO BEDTIME PRN PRN Reason: Insomnia Last Admin: 04/05/22 23:44 Dose: 25 mg Trolamine Salicylate (Trolamine Salicylate 10 % Cream 85 Gm Tube) 1 appl TOPICAL TID PRN; Protocol PRN Reason: Pain, Mild (Pain Scale 1-3) Allergies Allergies Allergy/AdvReac Type Severity Reaction Status Date / Time No Known Allergies Allergy Unverified 05/01/20 19:42 [No Known Allergies*] Assessment & Plan Assessment & Plan (1) Schizophrenia, paranoid, chronic with acute exacerbation: Status: Acute Code(s): F20.0 - Paranoid schizophrenia (2) Hypertension: Status: Acute Code(s): I10 - Essential (primary) hypertension (3) Dementia: Status: Acute Code(s): F03.90 - Unspecified dementia without behavioral disturbance Plan Elderly female with a long history of schizoaffective disorder bipolar type who was admitted into the facility for exacerbation of psychosis and mood lability. The patient is on Clozaril and apparently she has not been fully compliant with treatment. 11/21 slipped, hit head on 11/20, head CT reviewed and unremarkable. We did a MOCA and she is technically demented at this moment 04/03 continue current treatment 04/04 continue current treatment Plan 1. The patient at this moment is on 3 psychotics, Clozaril , Haldol and Invega Sustenna. 2. Discontinue Haldol 5 mg IM if the patient refuses Clozaril and replace with Zyprexa. 3. Lower total Clozaril to 500 mg a day. We will not continue with Invega Sustenna sings there is no improvement with 3 antipsychotics. We will keep her on Clozaril and Haldol p.o.. 4. Waiting for placement 5. Keep prazosin up to 2 mg p.o. t.i.d. to target nightmares since her blood pressure is stable I spent __20____ minutes with the patient and/or on the patient floor today, greater than?50% of which was spent counseling/coordinating care. Reason for contiued inpatient stay Substantial Risk for: inability to function, rapid decompensation and med/psych decompensation
[2022-04-06 20:35] VITALS: BP 129/75; PULSE 101; RESP 18; TEMP 36.6; O2SAT 97
[2022-04-06] MEDS: Mirtazapine 15 MG TABLET PO (20:45)
[2022-04-06] MEDS: cloZAPine 100 MG TABLET 300 MG PO (20:45)
[2022-04-06] MEDS: Sennosides 8.6 MG TABLET PO (20:50)
[2022-04-07 08:00] VITALS: BP 107/58; PULSE 85; RESP 16; TEMP 36.4; O2SAT 95
[2022-04-07] MEDS: hydroCHLOROthiazide 25 MG TABLET PO (10:14)
[2022-04-07] MEDS: Desmopressin Acetate 0.2 MG TABLET PO (10:14)
[2022-04-07] MEDS: cloZAPine 100 MG TABLET PO ×2 (10:14→16:11)
[2022-04-07] MEDS: Docusate Sodium 100 MG CAPSULE PO (10:14)
[2022-04-07] MEDS: Apixaban 5 MG TABLET PO (10:15)
[2022-04-07] MEDS: Prazosin HCL 1 MG CAPSULE 2 MG PO ×3 (10:15→20:40)
[2022-04-07] MEDS: HaloperidoL 5 MG TABLET PO (10:15)
[2022-04-07] MEDS: Benztropine Mesylate 1 MG TABLET PO (10:15)
[2022-04-07] MEDS: Miconazole Nitrate 2% Oint 57 GM OINT...G. 1 APPL TOPICAL (10:16)
[2022-04-07] MEDS: Lithium Carbonate 300 MG CAPSULE PO ×2 (10:16→20:41)
--- NOTE | 2022-04-07 16:20 | P.PNPSI_ITS ---
Subjective Subjective Date of Service: 04/07/22 Reason For Visit: psychotic disorder Subjective Notes: Conditional Voluntary Interim History: The nursing staff reported the patient has been fully compliant with treatment, she slept very well last night. The social staff worker reported that she referred to a new facility and most likely she will be accepted. [facility] will come to visit her tomorrow or the day after tomorrow for clearance. On interview the patient denies new symptoms. Waiting for placement. Mental Status Exam Mental Status Exam Patient Appearance: Well Grooomed Patient Orientation: Person and Situation Level of Consciousness: Awake Patient Behavior: Cooperative Mood Description: Calm Affect Description: Constricted Patient Cognition Impaired: Yes Ability to Follow Directions: Good Speech Pattern: Clear Hallucinations: None Delusions: Paranoid Ideation Thought Process: Distracted Thought Content: positive for Circumstantial Judgement: Fair Diagnostics Vital Signs (24Hr): Vital Signs - 24 hr 04/06/22 20:35 04/07/22 08:00 Temperature 97.9 F 97.5 F Pulse Rate 101 H 85 Respiratory Rate 18 16 Blood Pressure 129/75 107/58 L Pulse Oximetry 97 95 Oxygen Delivery Method Room Air Room Air BMI result Body Mass Index 27.3 Labs Results: 01/22/22 08:07 03/30/22 08:03 Imaging Radiology Impressions: ITS Impressions Head CT 10/08/21 15:16 IMPRESSION: No acute intracranial pathology. Head CT 10/09/21 13:54 IMPRESSION: No acute intracranial pathology. Pelvic/Transvag US 10/13/21 09:24 IMPRESSION: Abnormally thickened endometrium for a postmenopausal patient measuring 0.9 cm. 3 x 2.7 x 3.7 cm mass in the posterior cervix. This may represent a fibroid. Slightly thickened trabeculated bladder wall. Head CT 10/20/21 08:18 IMPRESSION: No acute intracranial pathology. This critical result was discussed with Dr. Chu at 8:30 hours on 10/20/2021. It was ascertained that the content and urgency of the report was understood at the time of direct communication. Head CT 11/20/21 19:29 IMPRESSION: No acute intracranial pathology. Medications Medications Current Medications Acetaminophen (Acetaminophen 325 Mg Tablet) 650 mg PO Q6H PRN PRN Reason: Pain, Mild (Pain Scale 1-3) Last Admin: 04/01/22 22:35 Dose: 650 mg Apixaban (Apixaban 5 Mg Tablet) 5 mg PO BID [facility] Last Admin: 04/07/22 10:15 Dose: 5 mg Benztropine Mesylate (Benztropine Mesylate 1 Mg Tablet) 1 mg PO BID [facility] Last Admin: 04/07/22 10:15 Dose: 1 mg Bisacodyl (Bisacodyl 10 Mg Supp.Rect) 10 mg [place] DAILY PRN PRN Reason: Constipation Clozapine (Clozapine 100 Mg Tablet) 100 mg PO DAILY@1700 [facility] Last Admin: 04/07/22 16:11 Dose: 100 mg Clozapine (Clozapine 100 Mg Tablet) 300 mg PO BEDTIME [facility] Last Admin: 04/06/22 20:45 Dose: 300 mg Clozapine (Clozapine 100 Mg Tablet) 100 mg PO DAILY [facility] Last Admin: 04/07/22 10:14 Dose: 100 mg Desmopressin Acetate (Desmopressin Acetate 0.2 Mg Tablet) 0.2 mg PO BID [facility] Last Admin: 04/07/22 10:14 Dose: 0.2 mg Docusate Sodium (Docusate Sodium 100 Mg Capsule) 100 mg PO BID [facility] Last Admin: 04/07/22 10:14 Dose: 100 mg Haloperidol (Haloperidol 5 Mg Tablet) 5 mg PO BID [facility] Last Admin: 04/07/22 10:15 Dose: 5 mg Hydrochlorothiazide (Hydrochlorothiazide 25 Mg Tablet) 25 mg PO DAILY [facility]; Protocol Last Admin: 04/07/22 10:14 Dose: 25 mg Hydroxyzine HCl (Hydroxyzine Hcl 25 Mg Tablet) 25 mg PO TID PRN PRN Reason: Anxiety Last Admin: 04/01/22 22:36 Dose: 25 mg [place] Carbonate ([place] Carbonate 300 Mg Capsule) 300 mg PO BID [facility] Last Admin: 04/07/22 10:16 Dose: 300 mg Miconazole Nitrate (Miconazole Nitrate 2% Oint 57 Gm Oint...G.) 1 appl TOPICAL BID [facility]; Protocol Last Admin: 04/07/22 10:16 Dose: 1 appl Mirtazapine (Mirtazapine 15 Mg Tablet) 15 mg PO BEDTIME [facility] Last Admin: 04/06/22 20:45 Dose: 15 mg Olanzapine (Olanzapine 10 Mg Vial) 10 mg IM TID PRN PRN Reason: refusal of PO Clozaril Last Admin: 04/05/22 09:35 Dose: 10 mg Olanzapine (Olanzapine 5 Mg Tablet) 5 mg PO Q4H PRN PRN Reason: Psychosis Last Admin: 04/05/22 23:44 Dose: 5 mg Prazosin HCl (Prazosin Hcl 1 Mg Capsule) 2 mg PO TID [facility]; Protocol Last Admin: 04/07/22 16:10 Dose: 2 mg Senna (Sennosides 8.6 Mg Tablet) 8.6 mg PO BEDTIME [facility] Last Admin: 04/06/22 20:50 Dose: 8.6 mg Trazodone HCl (Trazodone Hcl 25 Mg Halftab) 25 mg PO BEDTIME PRN PRN Reason: Insomnia Last Admin: 04/05/22 23:44 Dose: 25 mg Trolamine Salicylate (Trolamine Salicylate 10 % Cream 85 Gm Tube) 1 appl TOPICAL TID PRN; Protocol PRN Reason: Pain, Mild (Pain Scale 1-3) Allergies Allergies Allergy/AdvReac Type Severity Reaction Status Date / Time No Known Allergies Allergy Unverified 05/01/20 19:42 [No Known Allergies*] Assessment & Plan Assessment & Plan (1) Schizophrenia, paranoid, chronic with acute exacerbation: Status: Acute Code(s): F20.0 - Paranoid schizophrenia (2) Hypertension: Status: Acute Code(s): I10 - Essential (primary) hypertension (3) Dementia: Status: Acute Code(s): F03.90 - Unspecified dementia without behavioral disturbance Plan Elderly female with a long history of schizoaffective disorder bipolar type who was admitted into the facility for exacerbation of psychosis and mood lability. The patient is on Clozaril and apparently she has not been fully comp liant with treatment. 11/21 slipped, hit head on 11/20, head CT reviewed and unremarkable. We did a MOCA and she is technically demented at this moment 04/03 continue current treatment 04/04 continue current treatment Plan 1. The patient at this moment is on 3 psychotics, Clozaril , Haldol and Invega Sustenna. 2. Discontinue Haldol 5 mg IM if the patient refuses Clozaril and replace with Zyprexa. 3. Lower total Clozaril to 500 mg a day. We will not continue with Invega Sustenna sings there is no improvement with 3 antipsychotics. We will keep her on Clozaril and Haldol p.o.. 4. Waiting for placement 5. Keep prazosin up to 2 mg p.o. t.i.d. to target nightmares since her blood pressure is stable I spent ___20___ minutes with the patient and/or on the patient floor today, greater than?50% of which was spent counseling/coordinating care. Reason for contiued inpatient stay Substantial Risk for: inability to function, rapid decompensation and med/psych decompensation
[2022-04-07 18:00] VITALS: BP 114/56; PULSE 82; RESP 16; TEMP 36.3; O2SAT 96
[2022-04-07] MEDS: cloZAPine 100 MG TABLET 300 MG PO (20:34)
[2022-04-07] MEDS: Mirtazapine 15 MG TABLET PO (20:40)
[2022-04-08 06:00] VITALS: BP 101/53; PULSE 81; RESP 16; TEMP 36.4; O2SAT 96
[2022-04-08] MEDS: Lithium Carbonate 300 MG CAPSULE PO ×2 (13:52→20:53)
[2022-04-08] MEDS: Prazosin HCL 1 MG CAPSULE 2 MG PO ×2 (13:52→20:52)
[2022-04-08] MEDS: Benztropine Mesylate 1 MG TABLET PO ×2 (13:52→20:52)
[2022-04-08] MEDS: Docusate Sodium 100 MG CAPSULE PO ×2 (13:52→20:53)
[2022-04-08] MEDS: Desmopressin Acetate 0.2 MG TABLET PO ×2 (13:53→20:53)
[2022-04-08] MEDS: Apixaban 5 MG TABLET PO ×2 (13:53→20:52)
[2022-04-08] MEDS: hydroCHLOROthiazide 25 MG TABLET PO (13:53)
[2022-04-08] MEDS: HaloperidoL 5 MG TABLET PO ×2 (13:53→20:53)
[2022-04-08] MEDS: cloZAPine 100 MG TABLET PO ×2 (13:53→18:06)
[2022-04-08 18:00] VITALS: BP 118/58; PULSE 89; RESP 18; TEMP 36.4; O2SAT 98
[2022-04-08] MEDS: Miconazole Nitrate 2% Oint 57 GM OINT...G. 1 APPL TOPICAL (20:52)
[2022-04-08] MEDS: Mirtazapine 15 MG TABLET PO (20:52)
[2022-04-08] MEDS: Sennosides 8.6 MG TABLET PO (20:53)
[2022-04-08] MEDS: cloZAPine 100 MG TABLET 300 MG PO (20:53)
[2022-04-08] MEDS: Acetaminophen 325 MG TABLET 650 MG PO (21:03)
--- NOTE | 2022-04-08 22:29 | HO.PSYCHPN ---
Subjective Subjective Date of Service: 04/08/22 Reason For Visit: psychotic disorder Subjective Notes: Conditional Voluntary Interim History: The nursing staff reported the patient has been fully compliant with treatment, she slept very well last night. The social science instructor reported that she referred to a new facility and most likely she will be accepted. [facility] will come to visit her tomorrow or the day after tomorrow for clearance. On interview the patient denies new symptoms. Waiting for placement. Mental Status Exam Mental Status Exam Patient Appearance: Well Grooomed Patient Orientation: Person and Situation Level of Consciousness: Awake Patient Behavior: Cooperative Mood Description: Calm Affect Description: Constricted Patient Cognition Impaired: Yes Ability to Follow Directions: Good Speech Pattern: Clear Hallucinations: None Delusions: Paranoid Ideation Thought Process: Distracted Thought Content: positive for Circumstantial Judgement: Fair Diagnostics Vital Signs (24Hr): Vital Signs - 24 hr 04/08/22 06:00 04/08/22 18:00 Temperature 97.6 F 97.6 F Pulse Rate 81 89 Respiratory Rate 16 18 Blood Pressure 101/53 L 118/58 L Pulse Oximetry 96 98 Oxygen Delivery Method Room Air Room Air BMI result Body Mass Index 27.3 Labs Results: 01/22/22 08:07 03/30/22 08:03 Imaging Radiology Impressions: ITS Impressions Head CT 10/08/21 15:16 IMPRESSION: No acute intracranial pathology. Head CT 10/09/21 13:54 IMPRESSION: No acute intracranial pathology. Pelvic/Transvag US 10/13/21 09:24 IMPRESSION: Abnormally thickened endometrium for a postmenopausal patient measuring 0.9 cm. 3 x 2.7 x 3.7 cm mass in the posterior cervix. This may represent a fibroid. Slightly thickened trabeculated bladder wall. Head CT 10/20/21 08:18 IMPRESSION: No acute intracranial pathology. This critical result was discussed with Dr. Chu at 8:30 hours on 10/20/2021. It was ascertained that the content and urgency of the report was understood at the time of direct communication. Head CT 11/20/21 19:29 IMPRESSION: No acute intracranial pathology. Medications Medications Current Medications Acetaminophen (Acetaminophen 325 Mg Tablet) 650 mg PO Q6H PRN PRN Reason: Pain, Mild (Pain Scale 1-3) Last Admin: 04/08/22 21:03 Dose: 650 mg Apixaban (Apixaban 5 Mg Tablet) 5 mg PO BID [facility] Last Admin: 04/08/22 20:52 Dose: 5 mg Benztropine Mesylate (Benztropine Mesylate 1 Mg Tablet) 1 mg PO BID [facility] Last Admin: 04/08/22 20:52 Dose: 1 mg Bisacodyl (Bisacodyl 10 Mg Supp.Rect) 10 mg [place] DAILY PRN PRN Reason: Constipation Clozapine (Clozapine 100 Mg Tablet) 100 mg PO DAILY@1700 [facility] Last Admin: 04/08/22 18:06 Dose: 100 mg Clozapine (Clozapine 100 Mg Tablet) 300 mg PO BEDTIME [facility] Last Admin: 04/08/22 20:53 Dose: 300 mg Clozapine (Clozapine 100 Mg Tablet) 100 mg PO DAILY [facility] Last Admin: 04/08/22 13:53 Dose: 100 mg Desmopressin Acetate (Desmopressin Acetate 0.2 Mg Tablet) 0.2 mg PO BID [facility] Last Admin: 04/08/22 20:53 Dose: 0.2 mg Docusate Sodium (Docusate Sodium 100 Mg Capsule) 100 mg PO BID [facility] Last Admin: 04/08/22 20:53 Dose: 100 mg Haloperidol (Haloperidol 5 Mg Tablet) 5 mg PO BID [facility] Last Admin: 04/08/22 20:53 Dose: 5 mg Hydrochlorothiazide (Hydrochlorothiazide 25 Mg Tablet) 25 mg PO DAILY [facility]; Protocol Last Admin: 04/08/22 13:53 Dose: 25 mg Hydroxyzine HCl (Hydroxyzine Hcl 25 Mg Tablet) 25 mg PO TID PRN PRN Reason: Anxiety Last Admin: 04/01/22 22:36 Dose: 25 mg [place] Carbonate ([place] Carbonate 300 Mg Capsule) 300 mg PO BID [facility] Last Admin: 04/08/22 20:53 Dose: 300 mg Miconazole Nitrate (Miconazole Nitrate 2% Oint 57 Gm Oint...G.) 1 appl TOPICAL BID [facility]; Protocol Last Admin: 04/08/22 20:52 Dose: 1 appl Mirtazapine (Mirtazapine 15 Mg Tablet) 15 mg PO BEDTIME [facility] Last Admin: 04/08/22 20:52 Dose: 15 mg Olanzapine (Olanzapine 10 Mg Vial) 10 mg IM TID PRN PRN Reason: refusal of PO Clozaril Last Admin: 04/05/22 09:35 Dose: 10 mg Olanzapine (Olanzapine 5 Mg Tablet) 5 mg PO Q4H PRN PRN Reason: Psychosis Last Admin: 04/05/22 23:44 Dose: 5 mg Prazosin HCl (Prazosin Hcl 1 Mg Capsule) 2 mg PO TID [facility]; Protocol Last Admin: 04/08/22 20:52 Dose: 2 mg Senna (Sennosides 8.6 Mg Tablet) 8.6 mg PO BEDTIME [facility] Last Admin: 04/08/22 20:53 Dose: 8.6 mg Trazodone HCl (Trazodone Hcl 25 Mg Halftab) 25 mg PO BEDTIME PRN PRN Reason: Insomnia Last Admin: 04/05/22 23:44 Dose: 25 mg Trolamine Salicylate (Trolamine Salicylate 10 % Cream 85 Gm Tube) 1 appl TOPICAL TID PRN; Protocol PRN Reason: Pain, Mild (Pain Scale 1-3) Allergies Allergies Allergy/AdvReac Type Severity Reaction Status Date / Time No Known Allergies Allergy Unverified 05/01/20 19:42 [No Known Allergies*] Assessment & Plan Assessment & Plan (1) Schizophrenia, paranoid, chronic with acute exacerbation: Status: Acute Code(s): F20.0 - Paranoid schizophrenia Assessment and Plan: Continue treatment plan patient except into facility (2) Hypertension: Status: Acute Code(s): I10 - Essential (primary) hypertension (3) Dementia: Status: Acute Code(s): F03.90 - Unspecified dementia without behavioral disturbance Plan Elderly female with a long history of schizoaffective disorder bipolar type who was admitted into the facility for exacerbation of psychosis and mood lability. The patient is on Clozaril and apparently she has not been fully compliant with treatment. 11/21 slipped, hit head on 11/20, head CT reviewed and unremarkable. We did a MOCA and she is technically demented at this moment 04/03 continue current treatment 04/04 continue current treatment Plan 1. The patient at this moment is on 3 psychotics, Clozaril , Haldol and Invega Sustenna. 2. Discontinue Haldol 5 mg IM if the patient refuses Clozaril and replace with Zyprexa. 3. Lower total Clozaril to 500 mg a day. We will not continue with Invega Sustenna sings there is no improvement with 3 antipsychotics. We will keep her on Clozaril and Haldol p.o.. 4. Waiting for placement 5. Keep prazosin up to 2 mg p.o. t.i.d. to target nightmares since her blood pressure is stable I spent minutes with the patient and/or on the patient floor today, greater than?50% of which was spent counseling/coordinating care. Reason for contiued inpatient stay Substantial Risk for: inability to function and rapid decompensation
[2022-04-09 08:33] LABS: Neut%MD 65.2 %; Neutrophils Absolute Auto 4.1 x10*3/uL (2.0-8.3); WBCANC 6.4 X10*3/uL
[2022-04-09 08:36] VITALS: BP 121/65; PULSE 94; RESP 16; TEMP 36.4; O2SAT 99
[2022-04-09] MEDS: Prazosin HCL 1 MG CAPSULE 2 MG PO ×3 (08:47→20:43)
[2022-04-09] MEDS: Desmopressin Acetate 0.2 MG TABLET PO ×2 (08:48→20:43)
[2022-04-09] MEDS: Docusate Sodium 100 MG CAPSULE PO ×2 (08:48→20:43)
[2022-04-09] MEDS: Apixaban 5 MG TABLET PO ×2 (08:49→20:43)
[2022-04-09] MEDS: hydroCHLOROthiazide 25 MG TABLET PO (08:49)
[2022-04-09] MEDS: Lithium Carbonate 300 MG CAPSULE PO ×2 (08:49→20:43)
[2022-04-09] MEDS: HaloperidoL 5 MG TABLET PO ×2 (08:49→20:43)
[2022-04-09] MEDS: Benztropine Mesylate 1 MG TABLET PO ×2 (08:49→20:43)
[2022-04-09] MEDS: cloZAPine 100 MG TABLET PO ×2 (08:50→16:14)
[2022-04-09 16:15] VITALS: BP 129/84; PULSE 85
[2022-04-09 18:00] VITALS: BP 115/59; PULSE 90; RESP 17; TEMP 36.5; O2SAT 99
[2022-04-09] MEDS: Sennosides 8.6 MG TABLET PO (20:43)
[2022-04-09] MEDS: Mirtazapine 15 MG TABLET PO (20:43)
[2022-04-09] MEDS: cloZAPine 100 MG TABLET 300 MG PO (20:43)
--- NOTE | 2022-04-09 23:57 | HO.PSYCHPN ---
Subjective Subjective Date of Service: 04/09/22 Reason For Visit: psychotic disorder Subjective Notes: Conditional Voluntary Healthcare Proxy: Yes Interim History: Patient's case reviewed in treatment planning chart reviewed patient seen. Patient with chronic auditory hallucinations she is scheduled to to be discharged to long-term care facility Medication Compliance: Intermittent Mental Status Exam Mental Status Exam Patient Appearance: Well Grooomed Patient Orientation: Person and Situation Level of Consciousness: Awake Patient Behavior: Cooperative Mood Description: Calm Affect Description: Constricted Patient Cognition Impaired: Yes Ability to Follow Directions: Good Speech Pattern: Clear Hallucinations: None Delusions: Paranoid Ideation Thought Process: Distracted Thought Content: positive for Circumstantial Judgement: Fair Judgement and Insight: Less agitation decrease in auditory hallucinations and psychotic preoccupation Diagnostics Vital Signs (24Hr): Vital Signs - 24 hr 04/09/22 08:36 04/09/22 16:15 04/09/22 18:00 Temperature 97.6 F 97.7 F Pulse Rate 94 85 90 Respiratory Rate 16 17 Blood Pressure 121/65 129/84 115/59 L Pulse Oximetry 99 99 Oxygen Delivery Method Room Air Room Air BMI result Body Mass Index 27.3 Labs Results: 01/22/22 08:07 03/30/22 08:03 Labs: Laboratory Results - last 48 hr 04/09/22 08:16 Absolute Neuts (auto) 4.1 Imaging Radiology Impressions: ITS Impressions Head CT 10/08/21 15:16 IMPRESSION: No acute intracranial pathology. Head CT 10/09/21 13:54 IMPRESSION: No acute intracranial pathology. Pelvic/Transvag US 10/13/21 09:24 IMPRESSION: Abnormally thickened endometrium for a postmenopausal patient measuring 0.9 cm. 3 x 2.7 x 3.7 cm mass in the posterior cervix. This may represent a fibroid. Slightly thickened trabeculated bladder wall. Head CT 10/20/21 08:18 IMPRESSION: No acute intracranial pathology. This critical result was discussed with Dr. Chu at 8:30 hours on 10/20/2021. It was ascertained that the content and urgency of the report was understood at the time of direct communication. Head CT 11/20/21 19:29 IMPRESSION: No acute intracranial pathology. Medications Medications Current Medications Acetaminophen (Acetaminophen 325 Mg Tablet) 650 mg PO Q6H PRN PRN Reason: Pain, Mild (Pain Scale 1-3) Last Admin: 04/08/22 21:03 Dose: 650 mg Apixaban (Apixaban 5 Mg Tablet) 5 mg PO BID [facility] Last Admin: 04/09/22 20:43 Dose: 5 mg Benztropine Mesylate (Benztropine Mesylate 1 Mg Tablet) 1 mg PO BID [facility] Last Admin: 04/09/22 20:43 Dose: 1 mg Bisacodyl (Bisacodyl 10 Mg Supp.Rect) 10 mg [place] DAILY PRN PRN Reason: Constipation Clozapine (Clozapine 100 Mg Tablet) 100 mg PO DAILY@1700 [facility] Last Admin: 04/09/22 16:14 Dose: 100 mg Clozapine (Clozapine 100 Mg Tablet) 300 mg PO BEDTIME [facility] Last Admin: 04/09/22 20:43 Dose: 300 mg Clozapine (Clozapine 100 Mg Tablet) 100 mg PO DAILY [facility] Last Admin: 04/09/22 08:50 Dose: 100 mg Desmopressin Acetate (Desmopressin Acetate 0.2 Mg Tablet) 0.2 mg PO BID [facility] Last Admin: 04/09/22 20:43 Dose: 0.2 mg Docusate Sodium (Docusate Sodium 100 Mg Capsule) 100 mg PO BID [facility] Last Admin: 04/09/22 20:43 Dose: 100 mg Haloperidol (Haloperidol 5 Mg Tablet) 5 mg PO BID [facility] Last Admin: 04/09/22 20:43 Dose: 5 mg Hydrochlorothiazide (Hydrochlorothiazide 25 Mg Tablet) 25 mg PO DAILY [facility]; Protocol Last Admin: 04/09/22 08:49 Dose: 25 mg Hydroxyzine HCl (Hydroxyzine Hcl 25 Mg Tablet) 25 mg PO TID PRN PRN Reason: Anxiety Last Admin: 04/01/22 22:36 Dose: 25 mg [place] Carbonate ([place] Carbonate 300 Mg Capsule) 300 mg PO BID [facility] Last Admin: 04/09/22 20:43 Dose: 300 mg Miconazole Nitrate (Miconazole Nitrate 2% Oint 57 Gm Oint...G.) 1 appl TOPICAL BID [facility]; Protocol Last Admin: 04/09/22 20:52 Dose: Not Given Mirtazapine (Mirtazapine 15 Mg Tablet) 15 mg PO BEDTIME [facility] Last Admin: 04/09/22 20:43 Dose: 15 mg Olanzapine (Olanzapine 10 Mg Vial) 10 mg IM TID PRN PRN Reason: refusal of PO Clozaril Last Admin: 04/05/22 09:35 Dose: 10 mg Olanzapine (Olanzapine 5 Mg Tablet) 5 mg PO Q4H PRN PRN Reason: Psychosis Last Admin: 04/05/22 23:44 Dose: 5 mg Prazosin HCl (Prazosin Hcl 1 Mg Capsule) 2 mg PO TID [facility]; Protocol Last Admin: 04/09/22 20:43 Dose: 2 mg Senna (Sennosides 8.6 Mg Tablet) 8.6 mg PO BEDTIME [facility] Last Admin: 04/09/22 20:43 Dose: 8.6 mg Trazodone HCl (Trazodone Hcl 25 Mg Halftab) 25 mg PO BEDTIME PRN PRN Reason: Insomnia Last Admin: 04/05/22 23:44 Dose: 25 mg Trolamine Salicylate (Trolamine Salicylate 10 % Cream 85 Gm Tube) 1 appl TOPICAL TID PRN; Protocol PRN Reason: Pain, Mild (Pain Scale 1-3) Allergies Allergies Allergy/AdvReac Type Severity Reaction Status Date / Time No Known Allergies Allergy Unverified 05/01/20 19:42 [No Known Allergies*] Assessment & Plan Assessment & Plan (1) Schizophrenia, paranoid, chronic with acute exacerbation: Status: Acute Code(s): F20.0 - Paranoid schizophrenia Assessment and Plan: Continue treatment plan patient will be transferred to longer-term care facility no change indicated at this time (2) Hypertension: Status: Acute Code(s): I10 - Essential (primary) hypertension (3) Dementia: Status: Acute Code(s): F03.90 - Unspecified dementia without behavioral disturbance Plan Elderly female with a long history of schizoaffective disorder bipolar type who was admitted into the facility for exacerbation of psychosis and mood lability. The patient is on Clozaril and apparently she has not been fully compliant with treatment. 11/21 slipped, hit head on 11/20, head CT reviewed and unremarkable. We did a MOCA and she is technically demented at this moment 04/03 continue current treatment 04/04 continue current treatment Plan 1. The patient at this moment is on 3 psychotics, Clozaril , Haldol and Invega Sustenna. 2. Discontinue Haldol 5 mg IM if the patient refuses Clozaril and replace with Zyprexa. 3. Lower total Clozaril to 500 mg a day. We will not continue with Invega Sustenna sings there is no improvement with 3 antipsychotics. We will keep her on Clozaril and Haldol p.o.. 4. Waiting for placement 5. Keep prazosin up to 2 mg p.o. t.i.d. to target nightmares since her blood pressure is stable I spent minutes with the patient and/or on the patient floor today, greater than?50% of which was spent counseling/coordinating care. Reason for contiued inpatient stay Substantial Risk for: inability to function and rapid decompensation
[2022-04-10 06:00] VITALS: BP 91/50; PULSE 16; RESP 16; TEMP 36.6; O2SAT 94
[2022-04-10] MEDS: Prazosin HCL 1 MG CAPSULE 2 MG PO ×3 (10:08→22:01)
[2022-04-10] MEDS: Benztropine Mesylate 1 MG TABLET PO ×2 (10:11→22:00)
[2022-04-10] MEDS: cloZAPine 100 MG TABLET PO ×2 (10:11→16:23)
[2022-04-10] MEDS: Docusate Sodium 100 MG CAPSULE PO ×2 (10:12→22:00)
[2022-04-10] MEDS: HaloperidoL 5 MG TABLET PO ×2 (10:12→22:00)
[2022-04-10] MEDS: Desmopressin Acetate 0.2 MG TABLET PO ×2 (10:12→22:01)
[2022-04-10] MEDS: Lithium Carbonate 300 MG CAPSULE PO ×2 (10:13→22:00)
[2022-04-10] MEDS: hydroCHLOROthiazide 25 MG TABLET PO (10:13)
[2022-04-10] MEDS: Apixaban 5 MG TABLET PO ×2 (10:15→22:00)
[2022-04-10] MEDS: Miconazole Nitrate 2% Oint 57 GM OINT...G. 1 APPL TOPICAL (10:20)
[2022-04-10 16:20] VITALS: BP 123/75
--- NOTE | 2022-04-10 17:14 | P.PNPSI_ITS ---
Subjective Subjective Date of Service: 04/10/22 Reason For Visit: psychotic disorder Interim History: Team reports [facility] is preparing to discharge on 04/12 after a long hospitalization. They report chronic auditory perceptual alterations of God speaking to her. Pt today is taken aback as she has never met with this insurance writer. She appears apprehensive and fearful at times, but is engaged and does talk briefly. She does not identify issues for intervention at this time. Will order COVID per team for transfer on 04/12. Medical: 123/75 Medication Compliance: Yes Side effects from medications: No Attending Groups: Yes (attending outdoor group right before our brief interaction) Review of Systems Acute medical concerns: No Medical Review of Systems: unchanged Review of Systems Psychiatric: Reports anxiety Mental Status Exam Mental Status Exam Patient Appearance: Well Grooomed Patient Orientation: Person and Situation Level of Consciousness: Awake Patient Behavior: Cooperative Mood Description: Calm Affect Description: Constricted Patient Cognition Impaired: Yes Ability to Follow Directions: Good Speech Pattern: Clear Hallucinations: None Delusions: Paranoid Ideation Thought Process: Distracted Thought Content: positive for Circumstantial Judgement: Fair Diagnostics Vital Signs (24Hr): Vital Signs - 24 hr 04/09/22 18:00 04/10/22 06:00 04/10/22 16:20 Temperature 97.7 F 98 F Pulse Rate 90 16 L Respiratory Rate 17 16 Blood Pressure 115/59 L 91/50 L 123/75 Pulse Oximetry 99 94 Oxygen Delivery Method Room Air Room Air BMI result Body Mass Index 27.3 Labs Results: 01/22/22 08:07 03/30/22 08:03 Labs: Laboratory Results - last 48 hr 04/09/22 08:16 Absolute Neuts (auto) 4.1 Imaging Radiology Impressions: ITS Impressions Head CT 10/08/21 15:16 IMPRESSION: No acute intracranial pathology. Head CT 10/09/21 13:54 IMPRESSION: No acute intracranial pathology. Pelvic/Transvag US 10/13/21 09:24 IMPRESSION: Abnormally thickened endometrium for a postmenopausal patient measuring 0.9 cm. 3 x 2.7 x 3.7 cm mass in the posterior cervix. This may represent a fibroid. Slightly thickened trabeculated bladder wall. Head CT 10/20/21 08:18 IMPRESSION: No acute intracranial pathology. This critical result was discussed with Dr. Chu at 8:30 hours on 10/20/2021. It was ascertained that the content and urgency of the report was understood at the time of direct communication. Head CT 11/20/21 19:29 IMPRESSION: No acute intracranial pathology. Medications Medications Current Medications Acetaminophen (Acetaminophen 325 Mg Tablet) 650 mg PO Q6H PRN PRN Reason: Pain, Mild (Pain Scale 1-3) Last Admin: 04/08/22 21:03 Dose: 650 mg Apixaban (Apixaban 5 Mg Tablet) 5 mg PO BID [facility] Last Admin: 04/10/22 10:15 Dose: 5 mg Benztropine Mesylate (Benztropine Mesylate 1 Mg Tablet) 1 mg PO BID [facility] Last Admin: 04/10/22 10:11 Dose: 1 mg Bisacodyl (Bisacodyl 10 Mg Supp.Rect) 10 mg [place] DAILY PRN PRN Reason: Constipation Clozapine (Clozapine 100 Mg Tablet) 100 mg PO DAILY@1700 [facility] Last Admin: 04/10/22 16:23 Dose: 100 mg Clozapine (Clozapine 100 Mg Tablet) 300 mg PO BEDTIME [facility] Last Admin: 04/09/22 20:43 Dose: 300 mg Clozapine (Clozapine 100 Mg Tablet) 100 mg PO DAILY [facility] Last Admin: 04/10/22 10:11 Dose: 100 mg Desmopressin Acetate (Desmopressin Acetate 0.2 Mg Tablet) 0.2 mg PO BID [facility] Last Admin: 04/10/22 10:12 Dose: 0.2 mg Docusate Sodium (Docusate Sodium 100 Mg Capsule) 100 mg PO BID [facility] Last Admin: 04/10/22 10:12 Dose: 100 mg Haloperidol (Haloperidol 5 Mg Tablet) 5 mg PO BID [facility] Last Admin: 04/10/22 10:12 Dose: 5 mg Hydrochlorothiazide (Hydrochlorothiazide 25 Mg Tablet) 25 mg PO DAILY [facility]; Protocol Last Admin: 04/10/22 10:13 Dose: 25 mg Hydroxyzine HCl (Hydroxyzine Hcl 25 Mg Tablet) 25 mg PO TID PRN PRN Reason: Anxiety Last Admin: 04/01/22 22:36 Dose: 25 mg [place] Carbonate ([place] Carbonate 300 Mg Capsule) 300 mg PO BID [facility] Last Admin: 04/10/22 10:13 Dose: 300 mg Miconazole Nitrate (Miconazole Nitrate 2% Oint 57 Gm Oint...G.) 1 appl TOPICAL BID [facility]; Protocol Last Admin: 04/10/22 10:20 Dose: 1 appl Mirtazapine (Mirtazapine 15 Mg Tablet) 15 mg PO BEDTIME [facility] Last Admin: 04/09/22 20:43 Dose: 15 mg Olanzapine (Olanzapine 10 Mg Vial) 10 mg IM TID PRN PRN Reason: refusal of PO Clozaril Last Admin: 04/05/22 09:35 Dose: 10 mg Olanzapine (Olanzapine 5 Mg Tablet) 5 mg PO Q4H PRN PRN Reason: Psychosis Last Admin: 04/05/22 23:44 Dose: 5 mg Prazosin HCl (Prazosin Hcl 1 Mg Capsule) 2 mg PO TID [facility]; Protocol Last Admin: 04/10/22 16:22 Dose: 2 mg Senna (Sennosides 8.6 Mg Tablet) 8.6 mg PO BEDTIME [facility] Last Admin: 04/09/22 20:43 Dose: 8.6 mg Trazodone HCl (Trazodone Hcl 25 Mg Halftab) 25 mg PO BEDTIME PRN PRN Reason: Insomnia Last Admin: 04/05/22 23:44 Dose: 25 mg Trolamine Salicylate (Trolamine Salicylate 10 % Cream 85 Gm Tube) 1 appl TOPICAL TID PRN; Protocol PRN Reason: Pain, Mild (Pain Scale 1-3) Allergies Allergies Allergy/AdvReac Type Severity Reaction Status Date / Time No Known Allergies Allergy Unverified 05/01/20 19:42 [No Known Allergies*] Assessment & Plan Assessment & Plan (1) Schizophrenia, paranoid, chronic with acute exacerbation: Status: Acute Code(s): F20.0 - Paranoid schizophrenia Assessment and Plan: Continue treatment plan patient except into facility (2) Hypertension: Status: Acute Code(s): I10 - Essential (primary) hypertension (3) Dementia: Status: Acute Code(s): F03.90 - Unspecified dementia without behavioral disturbance Plan Elderly female with a long history of schizoaffective disorder bipolar type who was admitted into the facility for exacerbation of psychosis and mood lability. The patient is on Clozaril and apparently she has not been fully compliant with treatment. 11/21 slipped, hit head on 11/20, head CT reviewed and unremarkable. We did a MOCA and she is technically demented at this moment 04/03 continue current treatment 04/04 continue current treatment 04/10/22- Continue current plan. Discharge scheduled for 04/12. COVID-19 testing on 04/11/22. Plan 1. The patient at this moment is on 3 psychotics, Clozaril , Haldol and Invega Sustenna. 2. Discontinue Haldol 5 mg IM if the patient refuses Clozaril and replace with Zyprexa. 3. Lower total Clozaril to 500 mg a day. We will not continue with Invega Sustenna sings there is no improvement with 3 antipsychotics. We will keep her on Clozaril and Haldol p.o.. 4. Waiting for placement 5. Keep prazosin up to 2 mg p.o. t.i.d. to target nightmares since her blood pressure is stable I spent minutes with the patient and/or on the patient floor today, greater than?50% of which was spent counseling/coordinating care. Informed Consent: does not understand Reason for contiued inpatient stay Substantial Risk for: stable for discharge
[2022-04-10] MEDS: cloZAPine 100 MG TABLET 300 MG PO (22:00)
[2022-04-10] MEDS: Sennosides 8.6 MG TABLET PO (22:01)
[2022-04-10] MEDS: Mirtazapine 15 MG TABLET PO (22:01)
[2022-04-11 06:00] VITALS: BP 97/50; PULSE 75; RESP 14; TEMP 36.5; O2SAT 97
--- NOTE | 2022-04-11 10:00 | HO.PSYCHPN ---
Subjective Subjective Date of Service: 04/11/22 Reason For Visit: psychotic disorder Subjective Notes: Conditional Voluntary Interim History: Patient was seen and discussed in rounds today. Records and plans were reviewed. Team reports Serenity is preparing to discharge on 04/12 after a long hospitalizatio. She apparently is getting anxious about the discharge and transfer tomorrow and has been pretending to fall. Eating and sleeping adequately. No complaints. No changes were made Medication Compliance: Yes Side effects from medications: No Attending Groups: Yes (attending outdoor group right before our brief interaction) Review of Systems Acute medical concerns: No Medical Review of Systems: unchanged Review of Systems Review of Systems Yes all other systems are reviewed and are negative Psychiatric: Reports anxiety Mental Status Exam Mental Status Exam Patient Appearance: Well Grooomed Patient Orientation: Person and Situation Level of Consciousness: Awake Patient Behavior: Cooperative Mood Description: Calm Affect Description: Constricted Patient Cognition Impaired: Yes Ability to Follow Directions: Good Speech Pattern: Clear Hallucinations: None Delusions: Paranoid Ideation Thought Process: Distracted Thought Content: positive for Circumstantial Judgement: Fair Diagnostics Vital Signs (24Hr): Vital Signs - 24 hr 04/10/22 16:20 04/11/22 06:00 Temperature 97.7 F Pulse Rate 75 Respiratory Rate 14 Blood Pressure 123/75 97/50 L Pulse Oximetry 97 Oxygen Delivery Method Room Air BMI result Body Mass Index 27.3 Labs Results: 01/22/22 08:07 03/30/22 08:03 Imaging Radiology Impressions: ITS Impressions Head CT 10/08/21 15:16 IMPRESSION: No acute intracranial pathology. Head CT 10/09/21 13:54 IMPRESSION: No acute intracranial pathology. Pelvic/Transvag US 10/13/21 09:24 IMPRESSION: Abnormally thickened endometrium for a postmenopausal patient measuring 0.9 cm. 3 x 2.7 x 3.7 cm mass in the posterior cervix. This may represent a fibroid. Slightly thickened trabeculated bladder wall. Head CT 10/20/21 08:18 IMPRESSION: No acute intracranial pathology. This critical result was discussed with Dr. Chu at 8:30 hours on 10/20/2021. It was ascertained that the content and urgency of the report was understood at the time of direct communication. Head CT 11/20/21 19:29 IMPRESSION: No acute intracranial pathology. Medications Medications Current Medications Acetaminophen (Acetaminophen 325 Mg Tablet) 650 mg PO Q6H PRN PRN Reason: Pain, Mild (Pain Scale 1-3) Last Admin: 04/08/22 21:03 Dose: 650 mg Apixaban (Apixaban 5 Mg Tablet) 5 mg PO BID [facility] Last Admin: 04/10/22 22:00 Dose: 5 mg Benztropine Mesylate (Benztropine Mesylate 1 Mg Tablet) 1 mg PO BID MITZY Last Admin: 04/10/22 22:00 Dose: 1 mg Bisacodyl (Bisacodyl 10 Mg Supp.Rect) 10 mg IN DAILY PRN PRN Reason: Constipation Clozapine (Clozapine 100 Mg Tablet) 100 mg PO DAILY@1700 [facility] Last Admin: 04/10/22 16:23 Dose: 100 mg Clozapine (Clozapine 100 Mg Tablet) 300 mg PO BEDTIME MITZY Last Admin: 04/10/22 22:00 Dose: 300 mg Clozapine (Clozapine 100 Mg Tablet) 100 mg PO DAILY [facility] Last Admin: 04/10/22 10:11 Dose: 100 mg Desmopressin Acetate (Desmopressin Acetate 0.2 Mg Tablet) 0.2 mg PO BID [facility] Last Admin: 04/10/22 22:01 Dose: 0.2 mg Docusate Sodium (Docusate Sodium 100 Mg Capsule) 100 mg PO BID [facility] Last Admin: 04/10/22 22:00 Dose: 100 mg Haloperidol (Haloperidol 5 Mg Tablet) 5 mg PO BID [facility] Last Admin: 04/10/22 22:00 Dose: 5 mg Hydrochlorothiazide (Hydrochlorothiazide 25 Mg Tablet) 25 mg PO DAILY [facility]; Protocol Last Admin: 04/10/22 10:13 Dose: 25 mg Hydroxyzine HCl (Hydroxyzine Hcl 25 Mg Tablet) 25 mg PO TID PRN PRN Reason: Anxiety Last Admin: 04/01/22 22:36 Dose: 25 mg [place] Carbonate ([place] Carbonate 300 Mg Capsule) 300 mg PO BID MITZY Last Admin: 04/10/22 22:00 Dose: 300 mg Miconazole Nitrate (Miconazole Nitrate 2% Oint 57 Gm Oint...G.) 1 appl TOPICAL BID [facility]; Protocol Last Admin: 04/10/22 22:01 Dose: Not Given Mirtazapine (Mirtazapine 15 Mg Tablet) 15 mg PO BEDTIME [facility] Last Admin: 04/10/22 22:01 Dose: 15 mg Olanzapine (Olanzapine 10 Mg Vial) 10 mg IM TID PRN PRN Reason: refusal of PO Clozaril Last Admin: 04/05/22 09:35 Dose: 10 mg Olanzapine (Olanzapine 5 Mg Tablet) 5 mg PO Q4H PRN PRN Reason: Psychosis Last Admin: 04/05/22 23:44 Dose: 5 mg Prazosin HCl (Prazosin Hcl 1 Mg Capsule) 2 mg PO TID [facility]; Protocol Last Admin: 04/10/22 22:01 Dose: 2 mg Senna (Sennosides 8.6 Mg Tablet) 8.6 mg PO BEDTIME [facility] Last Admin: 04/10/22 22:01 Dose: 8.6 mg Trazodone HCl (Trazodone Hcl 25 Mg Halftab) 25 mg PO BEDTIME PRN PRN Reason: Insomnia Last Admin: 04/05/22 23:44 Dose: 25 mg Trolamine Salicylate (Trolamine Salicylate 10 % Cream 85 Gm Tube) 1 appl TOPICAL TID PRN; Protocol PRN Reason: Pain, Mild (Pain Scale 1-3) Allergies Allergies Allergy/AdvReac Type Severity Reaction Status Date / Time No Known Allergies Allergy Unverified 05/01/20 19:42 [No Known Allergies*] Assessment & Plan Assessment & Plan (1) Schizophrenia, paranoid, chronic with acute exacerbation: Status: Acute Code(s): F20.0 - Paranoid schizophrenia Assessment and Plan: Continue treatment plan patient except into facility (2) Hypertension: Status: Acute Code(s): I10 - Essential (primary) hypertension (3) Dementia: Status: Acute Code(s): F03.90 - Unspecified dementia without behavioral disturbance Plan Elderly female with a long history of schizoaffective disorder bipolar type who was admitted into the facility for exacerbation of psychosis and mood lability. The patient is on Clozaril and apparently she has not been fully compliant with treatment. 11/21 slipped, hit head on 11/20, head CT reviewed and unremarkable. We did a MOCA and she is technically demented at this moment 04/03 continue current treatment 04/04 continue current treatment 04/10/22- Continue current plan. Discharge scheduled for 04/12. COVID-19 testing on 04/11/22. 04/11: Continue current regimen and plans. COVID-19 testing he was ordered for preparation of discharge Plan 1. The patient at this moment is on 3 psychotics, Clozaril , Haldol and Invega Sustenna. 2. Discontinue Haldol 5 mg IM if the patient refuses Clozaril and replace with Zyprexa. 3. Lower total Clozaril to 500 mg a day. We will not continue with Invega Sustenna sings there is no improvement with 3 antipsychotics. We will keep her on Clozaril and Haldol p.o.. 4. Waiting for placement 5. Keep prazosin up to 2 mg p.o. t.i.d. to target nightmares since her blood pressure is stable I spent minutes with the patient and/or on the patient floor today, greater than?50% of which was spent counseling/coordinating care. Reason for contiued inpatient stay Substantial Risk for: inability to function
[2022-04-11] MEDS: OLANZapine 10 MG VIAL IM (11:48)
[2022-04-11 14:01] LABS: COVID-19 Test Negative (Negative); IDNOW Serial# 16C4AD1C
[2022-04-11] MEDS: cloZAPine 100 MG TABLET PO (15:26)
[2022-04-11] MEDS: Prazosin HCL 1 MG CAPSULE 2 MG PO ×2 (15:27→20:53)
[2022-04-11 18:00] VITALS: BP 116/61; PULSE 87; RESP 16; TEMP 36.4; O2SAT 99
[2022-04-11] MEDS: Docusate Sodium 100 MG CAPSULE PO (20:52)
[2022-04-11] MEDS: Sennosides 8.6 MG TABLET PO (20:52)
[2022-04-11] MEDS: Lithium Carbonate 300 MG CAPSULE PO (20:52)
[2022-04-11] MEDS: HaloperidoL 5 MG TABLET PO (20:52)
[2022-04-11] MEDS: cloZAPine 100 MG TABLET 300 MG PO (20:52)
[2022-04-11] MEDS: Desmopressin Acetate 0.2 MG TABLET PO (20:53)
[2022-04-11] MEDS: Mirtazapine 15 MG TABLET PO (20:53)
[2022-04-11] MEDS: traZODone HCL 25 MG HALFTAB PO (20:53)
[2022-04-11] MEDS: Apixaban 5 MG TABLET PO (20:55)
[2022-04-11] MEDS: Benztropine Mesylate 1 MG TABLET PO (20:56)
--- NOTE | 2022-04-12 | ECG_ITS ---
Test Reason : CLOZAPINE, HALDOL Blood Pressure : / mmHG Vent. Rate : 086 BPM Atrial Rate : 086 BPM P-R Int : 148 ms QRS Dur : 124 ms QT Int : 370 ms P-R-T Axes : 077 -50 064 degrees QTc Int : 442 ms Normal sinus rhythm Right bundle branch block Left anterior fascicular block Bifascicular block Minimal voltage criteria for LVH, may be normal variant ( R in aVL ) Septal infarct , age undetermined Abnormal ECG When compared with ECG of 03-APR-2019 22:36, No significant change was found Referred By: Willie Norman Electronically Signed By:SLIM SONI
[2022-04-12 09:50] VITALS: BP 119/58; PULSE 99; RESP 17; TEMP 36.2; O2SAT 93
[2022-04-12] MEDS: Docusate Sodium 100 MG CAPSULE PO (09:57)
[2022-04-12] MEDS: Lithium Carbonate 300 MG CAPSULE PO (09:57)
[2022-04-12] MEDS: Desmopressin Acetate 0.2 MG TABLET PO (09:57)
[2022-04-12] MEDS: Prazosin HCL 1 MG CAPSULE 2 MG PO (09:58)
[2022-04-12] MEDS: Apixaban 5 MG TABLET PO (09:58)
[2022-04-12] MEDS: HaloperidoL 5 MG TABLET PO (09:59)
[2022-04-12] MEDS: cloZAPine 100 MG TABLET PO (09:59)
[2022-04-12] MEDS: hydroCHLOROthiazide 25 MG TABLET PO (09:59)
[2022-04-12] MEDS: Benztropine Mesylate 1 MG TABLET PO (09:59)
--- NOTE | 2022-04-12 10:55 | P.DS_ITS ---
DS: Providers Provider Date of Service: 04/12/22 Date of admission: 10/07/21 16:46 Date of discharge: 04/12/22 Primary care physician: Zain Physician Attending physician on admission: John Mcdonnell Consults: 10/07/21 16:46 Consult to Hospitalist Routine Consulting Provider: Hospitalist Reason For Exam: Direct admission, no ED assessment 10/13/21 14:44 Consult to Obstetrics / Gynecology Routine Consulting Provider: Bryn Brownlee Reason for consultation: post-menopausal vaginal bleeding Has provider been notified: Yes Attending physician on discharge: John Mcdonnell Discharging clinician: Willie Norman DS: Diagnosis Discharge Diagnosis (1) Dementia: Status: Acute (2) Hypertension: Status: Acute (3) Schizoaffective disorder without good prognostic features: Status: Acute DS: Medications Discharge Medications Home Medications: Home Medications Medication Instructions Recorded Confirmed apixaban 5 mg tablet (Eliquis) 1 tab PO BID 10/07/21 10/07/21 clonazepam 0.5 mg tablet 0.5 mg PO BEDTIME 10/07/21 10/18/21 clozapine 100 mg tablet 2 tab PO BEDTIME 10/07/21 10/07/21 desmopressin 0.1 mg tablet 2 tab PO BID 10/07/21 10/07/21 haloperidol 5 mg tablet 1 tab PO TID 10/07/21 10/07/21 hydrochlorothiazide 25 mg tablet 1 tab PO DAILY 10/07/21 10/07/21 mirtazapine 30 mg tablet 1 tab PO BEDTIME 10/07/21 10/07/21 propranolol 10 mg tablet 1 tab PO DAILY 10/07/21 10/07/21 Mental Status Exam Mental Status Exam Patient Appearance: Well Grooomed Patient Orientation: Person and Situation Level of Consciousness: Awake Patient Behavior: Cooperative Mood Description: Calm and Apprehensive Affect Description: Constricted Patient Cognition Impaired: Yes Ability to Follow Directions: Good Speech Pattern: Clear and Impoverished Hallucinations: Auditory Delusions: Paranoid Ideation Thought Process: Distracted Thought Content: positive for Circumstantial Depressive Symptoms: Increased Irritability Judgement: Fair Data Data Completed and Pending Completed studies during hospitalization [Text1]: 04/09/22 04/11/22 08:16 13:35 Absolute Neuts (auto) 4.1 COVID-19 (SHIVANI) Negative COVID-19 Clin Com See Note Imaging Diagnostic Imaging Impressions Head CT 10/08/21 15:16 IMPRESSION: No acute intracranial pathology. Head CT 10/09/21 13:54 IMPRESSION: No acute intracranial pathology. Pelvic/Transvag US 10/13/21 09:24 IMPRESSION: Abnormally thickened endometrium for a postmenopausal patient measuring 0.9 cm. 3 x 2.7 x 3.7 cm mass in the posterior cervix. This may represent a fibroid. Slightly thickened trabeculated bladder wall. Head CT 10/20/21 08:18 IMPRESSION: No acute intracranial pathology. This critical result was discussed with Dr. Chu at 8:30 hours on 10/20/2021. It was ascertained that the content and urgency of the report was understood at the time of direct communication. Head CT 11/20/21 19:29 IMPRESSION: No acute intracranial pathology. DS: Summary Hospital Course Hospital Course: THE PATIENT IS A 67-YEAR-OLD FEMALE history of schizoaffective disorder/schizophrenia, dementia diagnosis who was admitted on a conditional voluntary on October [address] Arnett tomorrow no on the geriatric psychiatry unit. The patient has been increasingly paranoid prior to admission with auditory hallucinations hearing the devil's voice increased irritability and agitation. Patient complained of constant auditory hallucinations telling her negative in fearful things. Patient has generally required Clozaril was on lithium in the past. Hospital course the patient was seen in medical consultation by Dr. Doyle on October 09 notes history of hypertension history of deep vein thrombosis history of vitamin-D deficiency tubular adenoma history of hypokalemia question history of diabetes insipidus. Patient's [place] was generally 8 The patient was initially treated with a combination Eliquis for DVT ddavp to maintain blood pressure on clozapine Haldol 5 mg 3 times a day mirtazapine 30 at bedtime clozapine 200 at bedtime clonazepam 0.25 mg twice a day as needed hydrochlorothiazide 25 mg daily. The patient was often in distress with periods of agitation irritability and being distraught regarding paranoid concerns and auditory hallucination of a threatening and derogatory nature. Because of breakthrough symptoms on clozapine and Haldol she was tried on Risperdal and was eventually converted to Invega sustaina It should be noted that the healthcare proxy was affirmed by the court [place] was eventually restarted in December to help with mood stability and reactive dysphoria by Dr. Mcdonnell Prazosin was started for nightmares and anxiety by Dr. Guillen. Mirtazapine was continued at 15 mg bedtime hydrochlorothiazide 25 mg daily sennosides 8.6 mg at bedtime Haldol 5 mg twice a day DD a PAINT [employer]MULATOR 0.2 mg b.i.d. benztropine 1 mg twice a day Eliquis 5 mg b.i.d. clozapine 100 mg the morning 100 mg at 05:00 o'clock and 300 mg at bedtime lithium was 300 mg twice a day Clozapine levels were noted by this internal communications writer on 04/12 to have been somewhat elevated February 01 and I am decreasing her clozapine by 100 mg daily would recheck level in 1-2 weeks. Although elevated she does not appear to have suffered any ill affects the patient has been referred to was to rehab for long- term care. She he does use a walker she is significantly less anxious and depressed than she had been previously. She has been taking medication more regularly and has achieved greater stability. She does cry out intermittently responding to internal stimuli Patient seems less depressed mood more stable on a combination of lithium and mirtazapine. ANC has been stable at about 4.1 lithium level 0.6 calcium 11.0 Patient unable to live alone anymore with gait disturbance cuing for ADLs referred to long-term care Status at Discharge Cognitive/behavioral status at discharge: Patient having some anxiety but cooperative Functional status at discharge: uses cane/walker Overall status at discharge: patient is not back to baseline Time Spent with Patient Time attestation: Total time spent providing and/or coordinating discharge services: Time spent: Greater than 30 minutes Discharge Plan Discharge Patient Disposition: er [facility] Discharge Diagnosis: Schizoaffective disorder Dementia Alzheimer-type History of deep vein thrombosis History of hyperparathyroidism History of vitamin-D deficiency History of hypertension history of tubular adenoma Referrals: [facility] [Other] - 04/12/22 1:00 pm ([facility] Discharge Medications: New haloperidol 5 mg Tablet 5 mg PO BID 30 Days Qty: 60 0RF clozapine 100 mg Tablet 300 mg PO BEDTIME 30 Days Qty: 90 0RF prazosin 1 mg Capsule 2 mg PO TID 30 Days Qty: 180 0RF Protocol: Hold for SBP< HOLD for SBP < : 90 olanzapine 5 mg Tablet 5 mg PO Q4H PRN (Reason: Psychosis) 30 Days Qty: 60 0RF lithium carbonate 300 mg Capsule 300 mg PO BID 30 Days Qty: 60 0RF benztropine 1 mg Tablet 1 mg PO BID 30 Days Qty: 60 0RF mirtazapine 15 mg Tablet 15 mg PO BEDTIME 30 Days Qty: 30 0RF clozapine 25 mg Tablet 50 mg PO DAILY@1700 30 Days Qty: 60 0RF clozapine 25 mg Tablet 50 mg PO DAILY 30 Days Qty: 60 0RF trolamine salicylate [Arthricream] 10 % Cream 1 appl topical TID PRN (Reason: Pain, Mild (Pain Scale 1-3)) 30 Days Qty: 10 0RF Protocol: Apply to: Apply to: neck docusate sodium 100 mg Capsule 100 mg PO BID Qty: 60 0RF sennosides [Senna Lax] 8.6 mg Tablet 8.6 mg PO BEDTIME 30 Days Qty: 30 0RF acetaminophen 325 mg Tablet 650 mg PO Q6H PRN (Reason: Pain, Mild (Pain Scale 1-3)) Qty: 60 0RF Critic-Aid Clear AF(miconazol) 2 % Ointment 1 appl topical BID 30 Days Qty: 10 0RF Protocol: Apply to: Apply to: face Continued hydrochlorothiazide 25 mg tablet 1 tab PO DAILY desmopressin 0.1 mg tablet 2 tab PO BID Eliquis 5 mg tablet 1 tab PO BID Discontinued haloperidol 5 mg tablet 1 tab PO TID clozapine 100 mg tablet 2 tab PO BEDTIME clonazepam 0.5 mg tablet 0.5 mg PO BEDTIME propranolol 10 mg tablet 1 tab PO DAILY mirtazapine 30 mg tablet 1 tab PO BEDTIME Discharge Orders: Discharge Order (Routine); Ordered 04/12/22 Ordered By: Willie Norman Diet: Regular diet Activity on Discharge: Use cane or walker Stand Alone Forms: Patient Portal Discharge page Care Plan Goals: Decrease paranoid agitation Stabilized periods of irritability and depression Maintain gait and ADL functioning Health Concerns: Schizoaffective disorder History of noncompliance Dementia History of deep vein thrombosis History of endocrine abnormalities Plan of Treatment: Clozapine Haldol lithium Eliquis for deep vein thrombosis Monitor clozapine level lithium level EKG electrolytes calcium and magnesium Assessment: Patient significantly less fearful ambulating with walker has been medication compliant Healthcare proxy has been afirmed
[2022-04-12 12:12] LABS: Magnesium 1.8 mg/dL (1.6-2.6)
--- NOTE | 2022-04-12 13:32 | PC.NURSE ---
Patient is pleasant and cooperative. Patient denies SI/HI/VH. Patient reports looking forward to going to her new home. Patient denies acute physical complaints at this time.
== END 2022-04-12 13:37 | DRG 885 ==
LOC: HO.ED 15:42 → HO.PGERI 16:54
PROVIDERS: Clinical Nurse Specialist Psychiatric/Mental Health, Adult; Internal Medicine; Nurse Practitioner Acute Care; Physician Assistant Medical; Psychiatry & Neurology Psychiatry; Registered Nurse; Social Worker; Admitting Provider Psychiatry & Neurology Psychiatry; Emergency Provider Internal Medicine; Visit Provider Psychiatry & Neurology Psychiatry
DX: F20.0 Paranoid schizophrenia (principal); U07.1 COVID-19; F02.81 Dementia in other diseases classified elsewhere, unspecified severity, with behavioral disturbance; N25.1 Nephrogenic diabetes insipidus; I45.10 Unspecified right bundle-branch block; D25.9 Leiomyoma of uterus, unspecified; I10 Essential (primary) hypertension; E21.3 Hyperparathyroidism, unspecified; I25.2 Old myocardial infarction; G30.9 Alzheimer's disease, unspecified; E03.9 Hypothyroidism, unspecified; Z86.718 Personal history of other venous thrombosis and embolism; Z87.891 Personal history of nicotine dependence; Z79.01 Long term (current) use of anticoagulants; Z79.899 Other long term (current) drug therapy
CPT/HCPCS: 36415; 70450; 76830; 76856; 80048; 80053; 80061; 80076; 80159; 80178; 81001; 81003; 82306; 82310; 82607; 82746; 82947; 82977; 83036; 83735; 83970; 84443; 84484; 85025; 85048; 87635; 87798; 93005; 97161; 99285; J2060; J2426; J3486